=== PATIENT | female | born 1980 | race Caucasian/White ===

== ENCOUNTER → 2022-07-28 01:48 | Outpatient (CLI) | payer SELFPAY ==
[2022-07-28 10:54] LABS: SARS-CoV-2 RNA PCR Positive
== END ==
DX: U07.1 COVID-19 (principal)
CPT/HCPCS: C9803; U0003; U0005

== ENCOUNTER 2023-06-11 07:27 | Outpatient (CLI) | payer OTHER, SELFPAY ==
[2023-06-11 08:31] LABS: Basophils Absolute Auto 0.1 K/mm3 (0.0-0.1); Basophils Percent Auto 0.7 % (0.2-1.2); Eosinophils Absolute Auto 0.6 K/mm3 (0-0.3); Eosinophils Percent Auto 5.8 % (0-4.4); Hematocrit 40.5 % (37.0-47.0); Hemoglobin 13.7 g/dL (12.0-15.0); Immature Granulocyte Absolute 0.05 K/mm3 (0.00-0.031); Immature Granulocyte Percent A 0.4 % (0-0.5); Lymphocytes Absolute Auto 2.87 K/mm3 (0.9-3.2); Lymphocytes Percent Auto 25.8 % (18.3-44.2); Mean Corpuscular HGB Conc 33.8 g/dl (32-36); Mean Corpuscular Hemoglobin 32.5 pg (26-34); Mean Platelet Volume 12.1 fl (7.4-10.4); Monocytes Percent Auto 8.6 % (2.6-8.5); Neutrophils Absolute Auto 6.5 K/mm3 (1.3-6.7); Neutrophils Percent Auto 58.7 % (45.5-73.1); Platelet Count Result 270 k/mm3 (150-375); Red Blood Count 4.22 M/mm3 (4.2-5.4); Red Cell Distribution Width 12.5 % (11.5-14.5); White Blood Count 11.1 K/mm3 (4.5-10.0)
[2023-06-11 08:52] LABS: Alanine Aminotransferase 40 U/L (6-35); Albumin Level 4.5 g/dL (3.5-5.1); Alkaline Phosphatase 75 U/L (38-126); Anion Gap 5 mmol/L (8-16); Aspartate Amino Transferase 33 U/L (14-36); Bilirubin,Total 0.3 mg/dL (0.2-1.3); Blood Urea Nitrogen 15 mg/dL (7-17); Calcium 8.7 mg/dL (8.4-10.2); Carbon Dioxide 24 mmol/L (22-30); Chloride 104 mmol/L (98-107); Cholesterol 204 mg/dL (0-200); Estimated Glomerular Filt Rate > 60; Glucose 94 mg/dL (65-110); HDL Direct 38 mg/dL; Potassium 4.3 mmol/L (3.4-5.0); Sodium 133 mmol/L (137-145)
[2023-06-11 08:53] LABS: LDL Cholesterol Direct 62 mg/dL
[2023-06-11 08:55] LABS: Hemoglobin A1C 5.2 % (<5.7)
[2023-06-11 09:06] LABS: Vitamin D 25 Hydroxy 16.3 ng/mL
[2023-06-11 09:19] LABS: Appearance Urine Turbid (Clear); Bacteria Urine 2+ /hpf; Bilirubin Urine Negative (Negative); Blood Urine Negative (Negative); Color Urine Yellow (Yellow); Glucose Urine UA Negative (Negative); Ketones Urine Trace mg/dL (Negative); Leukocyte Esterase Ur 2+ LEU/UL (Negative); Nitrate Urine Negative (Negative); Non Pathogenic Casts 0-2; Protein Urine Negative (Negative); RBC Urine 0-2 /hpf (0-2); Specific Grav Ur 1.017 (1.001-1.035); Squamous Epithelial Cell Urine Moderate /hpf (Few); Uric Acid Crystals Urine Present /hpf; Urobilinogen Urine 0.2 mg/dL (<2.0); WBC Urine 21-50 /hpf; pH Urine 5.5 (5.0-9.0)
[2023-06-11 09:20] LABS: Add Urine Microscopic? YES
[2023-06-11 09:37] LABS: Hepatitis C Virus Antibody Negative (Negative)
[2023-06-11 13:01] LABS: Triglycerides 1327 mg/dL (<150)
== END 2023-06-11 07:28 | disposition home or self-care (01) ==
DX: Z00.00 Encounter for general adult medical examination without abnormal findings (principal)
CPT/HCPCS: 36415; 80053; 80061; 81001; 82306; 83036; 84443; 85025; 86803; 87086; 87088

== ENCOUNTER 2023-07-16 13:55 | Outpatient (CLI) | payer OTHER, SELFPAY ==
[2023-07-16 15:48] LABS: Hemoglobin A1C 5.2 % (<5.7)
== END 2023-07-16 13:56 | disposition home or self-care (01) ==
DX: R35.0 Frequency of micturition (principal); R81 Glycosuria
CPT/HCPCS: 36415; 83036

== ENCOUNTER 2023-12-04 14:48 | Emergency (ER) | payer OTHER, SELFPAY ==
[2023-12-04 15:00] VITALS: BP 128/83; PULSE 83; RESP 18; TEMP 36.6; O2SAT 98
--- NOTE | 2023-12-04 16:19 | ED.GENADULT ---
HPI - General Adult General Chief complaint: Upper Respiratory Infection Stated complaint: Congestion/Cough Source: patient Mode of arrival: ambulatory Limitations: no limitations History of Present Illness HPI narrative: Patient presents for evaluation of respiratory symptoms for last 4-5 days. Symptoms include sinus congestion, postnasal drainage, cough, wheezing and mild shortness of breath. No fever, chills, nausea, vomiting. No sick contacts to her knowledge. She has a history of recurrent bronchitis. Steroids have helped her in the past. Related Data Home Medications Medication Instructions Recorded Confirmed lorazepam 0.5 mg tablet 0.5 mg PO BID PRN Anxiety 12/04/23 12/04/23 Allergies Allergy/AdvReac Type Severity Reaction Status Date / Time doxycycline Allergy Intermediate Rash Verified 12/04/23 15:12 sulfamethoxazole Allergy Intermediate Rash Verified 12/04/23 15:12 [From Bactrim] trimethoprim [From Bactrim] Allergy Intermediate Rash Verified 12/04/23 15:12 Review of Systems Review of Systems: CONSTITUTIONAL: Denies fever, chills, or sweats. EYES: Denies visual changes, redness, or discharge. ENT: Reports sinus congestion and drainage. Denies sore throat. CARDIOVASCULAR: Denies chest pain, palpitations, or edema. RESPIRATORY: Reports cough, wheezing, mild shortness of breath GASTROINTESTINAL: Denies abdominal pain, nausea, vomiting, or diarrhea. GENITOURINARY: Denies dysuria or hematuria. SKIN: Denies rash or itching. MUSCULOSKELETAL: Denies back pain, joint pain, or myalgia. NEUROLOGIC: Denies headache, numbness, dizziness, or weakness. PSYCHIATRIC: Denies anxiety or depression. [facility] Past Medical History Medical History Bronchitis Surgical History Surgical History No pertinent past surgical history Family History Family History (Updated 12/04/23 @ 16:21 by ISHAAN Beavers, [place]) Mother Family history non-contributory Social History Social History Substance use: never Gender identity (if verbalized by the patient): Female Spiritual care concerns: No Exam Narrative: GENERAL: Well-appearing, well-nourished, and in no acute distress. HEAD: Normocephalic, atraumatic. EYES: PERRLA and EOMI. ENT: Nares clear, no rhinorrhea or epistaxis. Mucous membranes moist. Oropharynx without tonsillar hypertrophy exudate or other lesions. Bilateral TMs pearly booker nonbulging NECK: Supple. No adenopathy or masses. No carotid bruits or JVD CHEST: Clear to auscultation. No respiratory distress. No wheezes rales or rhonchi HEART: Regular rate and rhythm. No murmur heard. Normal peripheral pulses. ABDOMEN: Soft, nontender, nondistended, normal active bowel sounds. EXTREMITIES: Normal range of motion. No edema. SKIN: Warm, dry, no rash. NEURO: No focal deficits. Alert and oriented x3. PSYCH: Normal mood and affect. Course Course Emergency Course: This is a 43-year-old female who presented for evaluation of respiratory symptoms. She had no adventitious lung sounds warranting imaging. She is nontoxic appearing and saturations were 98% on room air. COVID and influenza were both negative. Follow up with PCP. Will dc with prednisone. Go to the ER for worsening symptoms. Pt in agreement with plan of care. Level of Care: Express Care Visit Vital Signs Vital signs: Vital Signs Temperature 36.6 C 12/04/23 15:00 Pulse Rate 83 12/04/23 15:00 Respiratory Rate 18 12/04/23 15:00 Blood Pressure 128/83 12/04/23 15:00 Pulse Oximetry 98 12/04/23 15:00 Oxygen Delivery Room Air 12/04/23 15:00 Temperature 36.6 C 12/04/23 15:00 Pulse Rate 83 12/04/23 15:00 Respiratory Rate 18 12/04/23 15:00 Blood Pressure 128/83 12/04/23 15:00 Pulse Oximetry 98 12/04/23 15:00 Oxyge
== END 2023-12-04 16:15 | disposition home or self-care (01) ==
PROVIDERS: Emergency Provider Nurse Practitioner
DX: J06.9 Acute upper respiratory infection, unspecified (principal); Z20.822 Contact with and (suspected) exposure to COVID-19
CPT/HCPCS: 87426; 87804; 99213; C9803; G0463

== ENCOUNTER 2024-01-28 12:13 | Outpatient (CLI) | payer OTHER, SELFPAY ==
[2024-01-28 12:55] LABS: Appearance Urine Clear (Clear); Bacteria Urine None Seen /hpf; Bilirubin Urine Negative (Negative); Blood Urine Negative (Negative); Color Urine Yellow (Yellow); Glucose Urine UA Negative (Negative); Ketones Urine Negative (Negative); Leukocyte Esterase Ur Trace LEU/UL (Negative); Nitrate Urine Negative (Negative); Non Pathogenic Casts 0-2; Protein Urine Negative (Negative); RBC Urine 0-2 /hpf (0-2); Specific Grav Ur 1.015 (1.001-1.035); Squamous Epithelial Cell Urine Occasional /hpf (Few); Urobilinogen Urine 0.2 mg/dL (<2.0); WBC Urine 0-5 /hpf; pH Urine 5.5 (5.0-9.0)
[2024-01-28 12:57] LABS: Add Urine Microscopic? YES
== END 2024-01-28 12:14 | disposition home or self-care (01) ==
DX: R30.0 Dysuria (principal)
CPT/HCPCS: 81001

== ENCOUNTER 2024-02-03 09:19 | Outpatient (CLI) | payer OTHER, SELFPAY ==
--- NOTE | ~2024-02-03 | US_ITS ---
Limited Abdominal Sonogram: Real-time sonographic imaging of the right upper quadrant was performed. Clinical History: Right upper quadrant pain Findings: The liver appears normal with no evidence of mass lesion or bile duct dilatation. Main por manny vein demonstrates normal direction of flow. The gallbladder is well distended, and appears normal with no evidence of gallstone or wall thickening. The common bile duct measures 3 mm. The visualize d pancreas, aorta, and IVC are unremarkable. Impression: No significant abnormality seen. Reviewed, dictated and finalized at location . 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
--- NOTE | ~2024-02-03 | NM_ITS ---
EXAMINATION: NM hepatobiliary wo pharm DATE: 02/03/2024 12:26 INDICATION: Right upper quadrant pain and bloating COMPARISON: None. TECHNIQUE: 1.8 mCi Tc-99m mebrofenin (Choletec) was administered intravenously. Scintigraphic images of the abdomen were obtained for one hour. At the 1 hour time point, the patient drank 8 oz Ensure, and imaging was continued for 60 minutes. Gallbladder ejection fraction was calculated by the technol ogist. FINDINGS: There is normal clearance of radiotracer from the blood pool. There is homogeneous tracer u ptake by the liver. Activity progresses to the bowel and gallbladder. The gallbladder ejection fract ion (GBEF) is 77%. Note that with this technique, normal GBEF >= 33%. IMPRESSION: 1. Normal hepatobiliary scan Reviewed, dictated and finalized at location A. 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
== END 2024-02-03 09:20 | disposition home or self-care (01) ==
LOC: ANHIMG 09:19
PROVIDERS: Visit Provider Nurse Practitioner
DX: R10.11 Right upper quadrant pain (principal); R14.0 Abdominal distension (gaseous); R11.0 Nausea
CPT/HCPCS: 76705; 78226; A9537

== ENCOUNTER 2024-03-15 00:03 | Day surgery (SDC) | payer OTHER, SELFPAY ==
[2024-02-21 15:52] VITALS: BMI 25.4
--- NOTE | 2024-02-25 10:06 | SUR.PREOP ---
Patient called regarding upcoming procedure. Reviewed preop instructions, appointment times, and procedure prep.
[2024-03-07 15:59] VITALS: BMI 25.4
[2024-03-15 08:28] VITALS: BP 134/97; PULSE 81; RESP 20; TEMP 36.2; O2SAT 100; BMI 24.5
[2024-03-15] MEDS: LACTATED RINGERS 1,000 ML 150 ML IV CONT (08:31)
--- NOTE | 2024-03-15 09:10 | WPDANESEPPF ---
Anes - Initial Pre Proc Eval Procedure: Operation Date: 03/15/24 09:30 Proposed Procedures p Esophagogastroduodenoscopy & Colonoscopy - Jayesh Montaño MD Date/Time: 03/15/24 09:10 Surgeon: Jayesh Montaño MD Pre Op Diagnosis: right upper quadrant pain, nausea, dysphagia Patient Data Age: 43 Gender: F Height: 1.6 m Weight: 62.8 kg Last Vital Signs Temp 97.2 F L 03/15/24 08:28 Pulse 81 03/15/24 08:28 Resp 20 03/15/24 08:28 BP 134/97 H 03/15/24 08:28 Pulse Ox 100 03/15/24 08:28 O2 Del Method Room Air 03/15/24 08:28 Allergies Allergy/AdvReac Type Severity Reaction Status Date / Time doxycycline Allergy Intermediate Rash Verified 03/15/24 08:27 sulfamethoxazole Allergy Intermediate Rash Verified 03/15/24 08:27 [From Bactrim] trimethoprim [From Bactrim] Allergy Intermediate Rash Verified 03/15/24 08:27 Home Medications Medication Instructions Recorded Confirmed Type lorazepam 0.5 mg tablet 0.5 mg PO BID PRN Anxiety 12/04/23 03/07/24 History albuterol 90 mcg/actuation aerosol 90 mcg inhalation QID PRN SOB 01/04/24 03/07/24 History inhaler fenofibrate 160 mg tablet 160 mg PO DAILY 01/04/24 03/07/24 History omeprazole 40 mg capsule,delayed 40 mg PO DAILY #30 caps 01/04/24 03/07/24 Rx release dicyclomine 10 mg capsule 10 mg PO QID 90 days #360 caps 01/27/24 03/07/24 Rx Patient hx anesthesia problems: none Family hx anesthesia problems: none Results Review: All pre-operative results and documents have been reviewed as part of the pre-operative evaluation. [facility] Past Medical History Medical History (Updated 01/04/24 @ 15:59 by Radha Novoa APRN) Bronchitis Diarrhea Dysphagia Nausea Postprandial abdominal bloating Postprandial RUQ pain Scoliosis Surgical History Surgical History No pertinent past surgical history Family History Family History Mother Family history non-contributory Social History Social History (Updated 12/04/23 @ 16:21 by Rajeev Huang, [facility], ) Years smoked: 30 Smoking status: Current every day smoker Tobacco type: cigarettes Additional smoking assessment comments: Social Smoker Alcohol intake: current Alcohol use details: Daily Substance use: never Gender identity (if verbalized by the patient): Female Spiritual care concerns: No Anes - Eval Final PreProcedure Day of Procedure 03/15/24 09:10 Patient weight: normal Heart: regular rate and rhythm Lungs: clear to auscultation Airway: Mallampati scale class II Neurological: alert and oriented Last oral intake: >/= 8 hours ASA classification: II Emergent: no Anesthetic plan: proceed Anesthesia type and monitoring: general GIVS and standard monitoring Results Review: All pre-operative results and documents have been reviewed as part of the pre-operative evaluation. Informed Consent: The patient's anesthetic plan and its attendant risks and benefits were discussed with the patient/family/POA. Questions were solicited and answers provided to the satisfaction of the patient/family/POA.
--- NOTE | 2024-03-15 09:17 | PM.HPGS ---
History of Present Illness History of Present Illness Consent: Risks, benefits, and alternatives have been discussed and questions answered. Patient agrees to proceed with procedure. Chief complaint: right upper quadrant pain, nausea, dysphagia Narrative: Irma Seymour is a 43 year old female with bloating and loose stools, never had scopes. Douglas was helping with GI symptoms but then got constipated so discontinued, now she is back with loose stools again Review of Systems Review of Systems: All systems reviewed & are unremarkable except as noted in HPI and below PMFSH Past Medical History Medical History (Updated 01/04/24 @ 15:59 by Radha Novoa, [facility]) Bronchitis Diarrhea Dysphagia Nausea Postprandial abdominal bloating Postprandial RUQ pain Scoliosis Surgical History Surgical History No pertinent past surgical history Family History Family History Mother Family history non-contributory Social History Social History (Updated 12/04/23 @ 16:21 by Rajeev Huang, [facility], ) Years smoked: 30 Smoking status: Current every day smoker Tobacco type: cigarettes Additional smoking assessment comments: Social Smoker Alcohol intake: current Alcohol use details: Daily Substance use: never Gender identity (if verbalized by the patient): Female Spiritual care concerns: No Meds Home Medications and Allergies Home Medications Medication Instructions Recorded Confirmed Type lorazepam 0.5 mg tablet 0.5 mg PO BID PRN Anxiety 12/04/23 03/07/24 History albuterol 90 mcg/actuation aerosol 90 mcg inhalation QID PRN SOB 01/04/24 03/07/24 History inhaler fenofibrate 160 mg tablet 160 mg PO DAILY 01/04/24 03/07/24 History omeprazole 40 mg capsule,delayed 40 mg PO DAILY #30 caps 01/04/24 03/07/24 Rx release dicyclomine 10 mg capsule 10 mg PO QID 90 days #360 caps 01/27/24 03/07/24 Rx Allergies Allergy/AdvReac Type Severity Reaction Status Date / Time doxycycline Allergy Intermediate Rash Verified 03/15/24 08:27 sulfamethoxazole Allergy Intermediate Rash Verified 03/15/24 08:27 [From Bactrim] trimethoprim [From Bactrim] Allergy Intermediate Rash Verified 03/15/24 08:27 Vital Signs Vital Signs - 24 hr 04/17/24 08:28 Temperature 97.2 F L Pulse Rate 81 Respiratory Rate 20 Blood Pressure 134/97 H Pulse Oximetry 100 Oxygen Delivery Room Air Exam Const: General: comfortable and no acute distress HENMT: Face/Nose/Sinus: Normal nares present Eyes: General: appearance normal, both eyes and all related structures Neck: Neck: no JVD Resp: Auscultation: clear to auscultation bilaterally Cardio: Rate: regular rate Rhythm: regular rhythm GI: Inspection: non-distended GI Palp: Yes Soft to palpation Skin: General skin exam: normal color Neuro: General: gait normal Speech: normal speech Extrem: General: normal to inspection Psych: Mental Status: mental status grossly normal Assessment and Plan Assessment and plan (1) Postprandial abdominal bloating: Code(s): R14.0 - Abdominal distension (gaseous) Status: Acute Assessment and Plan: egd with bx abdominal us and hida scan normal (2) Diarrhea: Code(s): R19.7 - Diarrhea, unspecified Status: Acute Assessment and Plan: colonoscopy with biopsies
--- NOTE | 2024-03-15 09:35 | SUR.OPER ---
EGD ended at 926, colon began at 932
[2024-03-15 09:48] VITALS: BP 99/64; PULSE 75; RESP 16; O2SAT 99
[2024-03-15 09:58] VITALS: BP 99/64; PULSE 75; RESP 16; O2SAT 99
[2024-03-15 10:08] VITALS: BP 113/86; PULSE 77; RESP 21; O2SAT 100
== END 2024-03-15 10:25 | disposition home or self-care (01) ==
PROVIDERS: Visit Provider Internal Medicine Gastroenterology
PROC: 0DJ08ZZ Inspection of Upper Intestinal Tract, Via Natural or Artificial Opening Endoscopic (ICD-10-PCS; CPT 43235; principal; 2024-03-15 09:30)
DX: K21.00 Gastro-esophageal reflux disease with esophagitis, without bleeding (principal); R19.7 Diarrhea, unspecified; F17.210 Nicotine dependence, cigarettes, uncomplicated; Z79.51 Long term (current) use of inhaled steroids
CPT/HCPCS: 45380; 43239; 88305; J2704; J7120

== ENCOUNTER 2024-03-31 06:59 | Outpatient (CLI) | payer OTHER, SELFPAY ==
[2024-03-31 07:37] LABS: Hematocrit 39.6 % (37.0-47.0); Hemoglobin 13.1 g/dL (12.0-15.0); Mean Corpuscular HGB Conc 33.1 g/dl (32-36); Mean Corpuscular Hemoglobin 31.8 pg (26-34); Mean Corpuscular Volume 96.1 fl (80-100); Mean Platelet Volume 12.4 fl (7.4-10.4); Platelet Count Result 243 k/mm3 (150-375); Red Blood Count 4.12 M/mm3 (4.2-5.4); White Blood Count 10.8 K/mm3 (4.5-10.0)
[2024-03-31 07:53] LABS: Alanine Aminotransferase 28 U/L (6-35); Albumin Level 4.3 g/dL (3.5-5.1); Alkaline Phosphatase 84 U/L (38-126); Amylase 57 U/L (30-110); Anion Gap 11 mmol/L (4-12); Aspartate Amino Transferase 29 U/L (14-36); Bilirubin,Total 0.4 mg/dL (0.2-1.3); Blood Urea Nitrogen 10 mg/dL (7-17); CRP < 0.5 mg/dL (<1.0); Calcium 8.7 mg/dL (8.4-10.2); Carbon Dioxide 17 mmol/L (22-30); Chloride 113 mmol/L (98-107); Estimated Glomerular Filt Rate > 60; Glucose 151 mg/dL (65-110); Lipase 78 U/L (23-300); Potassium 3.5 mmol/L (3.4-5.0); Sodium 141 mmol/L (137-145)
[2024-03-31 08:20] LABS: Erythrocyte Sedimentation Rate 21 mm/hr (0-20)
== END 2024-03-31 07:00 | disposition home or self-care (01) ==
PROVIDERS: Visit Provider Nurse Practitioner
DX: R14.0 Abdominal distension (gaseous) (principal); K58.0 Irritable bowel syndrome with diarrhea; K21.00 Gastro-esophageal reflux disease with esophagitis, without bleeding; K31.A0 Gastric intestinal metaplasia, unspecified
CPT/HCPCS: 36415; 80053; 82150; 83690; 84443; 85027; 85652; 86140

== ENCOUNTER 2024-04-05 08:34 | Outpatient (CLI) | payer OTHER, SELFPAY ==
--- NOTE | 2024-04-17 13:39 | WPDHOMESLEEP ---
Sleep Study - Home Unattended Date of Study: 04/06/24 Ordering Provider: Shravan Burgos Interpreting Provider: Lina Elder, DO Home Sleep Study Type: Watch PAT Height: 1.6 m Weight: 65.771 kg Body Mass Index: 25.7 Neck Circumference (inches): 14 [place]: 15 Reason for Sleep Study Difficulty sleeping Sleep History The patient is a 43 year old female with anxiety, asthma, dyslipidemia and current tobacco use that had a sleep study ordered by her primary care for evaluation of sleep apnea. The patient rarely awakens from sleep short of breath. She rarely awakens at night with heartburn, belching or cough. She occasionally snores but it is never loud enough that others complain. She frequently has trouble sleeping when she has a cold. She rarely wakes up gasping for air throughout the night. She denies having breathing problems at night observed by herself or others. She occasionally sweats excessively at night. She denies having heart palpitations or irregular heartbeats during the night. She frequently falls asleep during the day but never while driving. She denies sleep paralysis, cataplexy and hypnagogic / hypnopompic hallucinations. She denies having trouble at school or work due to sleepiness. She denies feeling afraid of going to sleep. She rarely has nightmares. She rarely remembers her dreams. She occasionally has thoughts racing through her mind. She occasionally feels sad or depressed. She frequently has anxiety. She denies having muscular tension. She denies noticing parts of her body jerk. She denies kicking during the night. She denies having crawling and aching feelings in her legs but rarely has leg pain during the night. She denies grinding her teeth during sleep and denies awakening with morning jaw pain. She is occasionally bothered by pain during the day but rarely awakened by pain during the night. She occasionally wakes up feeling stiff in the morning. She occasionally wakes up with sore or achy muscles. She occasionally wakes up with pain in the neck, spine and other joints. She goes to bed between 10-11 p.m. on both weekdays and weekends. The amount of time it takes for her to fall asleep is variable. She wakes up 3 times throughout the night to either use the restroom or adjust position in bed. She wakes up at 5:30 a.m. on weekdays and between 8-9 a.m. on the weekends. She typically gets 5 hours of sleep per night. She will stay in bed for 1 hour after waking up in the morning. She currently lives with her 16-year-old son. She denies consuming any caffeinated beverages within 2 hours of bedtime. She denies engaging in physical exercise before bedtime. She will watch television before falling asleep. She will take naps in the afternoon or the evening but they are not refreshing. She consumes 80 oz of caffeinated soda per day. She consumes alcoholic beverages occasionally. She currently smokes cigarettes intermittently. She denies recreational drug use. [facility] Past Medical History Medical History Bronchitis Diarrhea Dysphagia Nausea Postprandial abdominal bloating Postprandial RUQ pain Scoliosis Surgical History Surgical History No pertinent past surgical history Family History Family History Mother Family history non-contributory Social History Social History Years smoked: 30 Smoking status: Never smoker Tobacco type: cigarettes Additional smoking assessment comments: Social Smoker Alcohol intake: current Alcohol use details: Daily Substance use: never Gender identity (if verbalized by the patient): Female Spiritual care concerns: No Medications Home Medications Medication Instructions Recorded Confirmed Type aye
[2024-04-17 13:40] VITALS: BMI 25.7
== END 2024-04-06 07:30 | disposition home or self-care (01) ==
LOC: ANHCSM 08:35
DX: G47.9 Sleep disorder, unspecified (principal); R29.818 Other symptoms and signs involving the nervous system; R40.0 Somnolence
CPT/HCPCS: 95800

== ENCOUNTER 2024-04-06 08:54 | Outpatient (CLI) | payer OTHER, SELFPAY ==
--- NOTE | ~2024-04-06 | CT_ITS ---
CT of the Abdomen and Pelvis: Indication: Abdominal bloating Technique: 2.5 mm axial scans were obtained through the abdomen and pelvis following intravenous adm inistration of 100 cc of Omnipaque 350. Dose reduction technique was used on this scan by utilizing a utomated exposure control and iterative reconstruction technique. The dose-length product (DLP) was 3 87.41 mGy-cm. Findings: Scans through the lung bases are unremarkable. The liver, spleen, pancreas, gallbladder, adrenals and left kidney are within normal limits. There is malrotation of the right kidney, no hydronephrosis. No evidence of aortic aneurysm. No lymphadenopa thy. No bowel obstruction or bowel wall thickening. There is no evidence to suggest acute appendicitis. Images through the pelvis were performed. Urinary bladder unremarkable. No adnexal mass seen. No asci dameon. IUD in place. Impression: No acute abnormality seen. IUD in place. Reviewed, dictated and finalized at [facility]. Impression: No acute abnormality seen. IUD in place.
[2024-04-15 14:29] LABS: Pancreatic Elastase, Stool >500 mcg/g
[2024-04-15 20:44] LABS: Calprotectin, Stool 23 mcg/g
== END 2024-04-06 08:55 | disposition home or self-care (01) ==
LOC: ANHIMG 08:55
PROVIDERS: Visit Provider Nurse Practitioner
DX: K92.89 Other specified diseases of the digestive system (principal); K21.00 Gastro-esophageal reflux disease with esophagitis, without bleeding; K31.A0 Gastric intestinal metaplasia, unspecified; K58.0 Irritable bowel syndrome with diarrhea; Z97.5 Presence of (intrauterine) contraceptive device
CPT/HCPCS: 74177; 82653; 83993; Q9967

== ENCOUNTER 2024-04-30 14:57 | Emergency (ER) | payer OTHER, SELFPAY ==
--- NOTE | 2024-04-30 15:07 | ED.URI ---
HPI - URI/Sore Throat General Chief Complaint: Upper Respiratory Infection Stated Complaint: Cough/fever Time Seen by Provider: 04/30/24 15:07 Source: patient and RN notes reviewed Mode of arrival: ambulatory Limitations: no limitations History of Present Illness HPI Narrative: 43-year-old female presented for complaint of headache, body aches, sinus pressure/congestion, cough, fever/chills. onset yesterday morning. Also reports bilateral ear pain for 1 week. Taking ibuprofen for fever of 100.4. Denies sob, wheezing, n/v/d. MD elicited complaint: cough Related Data Home Medications Medication Instructions Recorded Confirmed lorazepam 0.5 mg tablet 0.5 mg PO BID PRN Anxiety 12/04/23 03/30/24 albuterol 90 mcg/actuation aerosol 90 mcg inhalation QID PRN SOB 01/04/24 03/30/24 inhaler fenofibrate 160 mg tablet 160 mg PO DAILY 01/04/24 03/30/24 Allergies Allergy/AdvReac Type Severity Reaction Status Date / Time doxycycline Allergy Intermediate Rash Verified 03/29/24 15:50 sulfamethoxazole Allergy Intermediate Rash Verified 03/29/24 15:50 [From Bactrim] trimethoprim [From Bactrim] Allergy Intermediate Rash Verified 03/29/24 15:50 Review of Systems Review of Systems: CONSTITUTIONAL: Endorses malaise, chills, sweats, fever EYES: Denies visual changes, redness, or discharge ENT: Reports rhinorrhea, congestion, sinus pain, otalgia CARDIOVASCULAR: Denies chest pain, palpitations, edema RESPIRATORY: Reports cough, post nasal drainage. Denies dyspnea GASTROINTESTINAL: Denies abdominal pain, nausea, vomiting, diarrhea SKIN: Denies rash or itching MUSCULOSKELETAL: Endorses myalgia PMFSH Past Medical History Medical History Bronchitis Diarrhea Dysphagia Nausea Postprandial abdominal bloating Postprandial RUQ pain Scoliosis Surgical History Surgical History No pertinent past surgical history Family History Family History Mother Family history non-contributory Social History Social History Years smoked: 30 Smoking status: Never smoker Tobacco type: cigarettes Additional smoking assessment comments: Social Smoker Alcohol intake: current Alcohol use details: Daily Substance use: never Gender identity (if verbalized by the patient): Female Spiritual care concerns: No Exam Narrative: GENERAL: Ill-appearing, nontoxic no acute distress. EYES: PERRLA, conjunctivae clear ENT: Mucous membranes moist. Bilateral TMs erythematous, bulging and intact; canals not erythematous, no drainage, no tragal tenderness. Oropharynx erythematous without lesions or exudate, no drooling, no hoarseness, no trismus, uvula midline. No tripod positioning, muffled voice, soft palate or pharyngeal wall bulging NECK: Supple. No lymphadenopathy CHEST: Clear to auscultation, breath sounds equal. No wheezing, rhonchi, rales, or stridor. No respiratory distress, speaks in full sentences. HEART: Regular rate and rhythm. No murmur heard. SKIN: Warm, dry NEURO: Alert and oriented x3. PSYCH: Normal mood and affect Course Course Emergency Course: Patient is aware of diagnosis, understands and agrees to treatment plan. Anticipatory guidance given. Patient agrees to follow-up as directed and is aware of reasons to seek care at the emergency department. Portions of this record may have been created with voice recognition software Level of Care: Express Care Visit Vital Signs Vital signs: Vital Signs Temperature 98 F 04/30/24 15:08 Pulse Rate 72 04/30/24 15:08 Respiratory Rate 16 04/30/24 15:08 Blood Pressure 135/81 04/30/24 15:08 Pulse Oximetry 100 04/30/24 15:08 Oxygen Delivery Room Air 04/30/24 15:08 Temperature 98 F 04/30/24 15:08 Pulse Rate 72 06/0
[2024-04-30 15:08] VITALS: BP 135/81; PULSE 72; RESP 16; TEMP 36.6; O2SAT 100
== END 2024-04-30 15:43 | disposition home or self-care (01) ==
PROVIDERS: Emergency Provider Nurse Practitioner Family
DX: H66.93 Otitis media, unspecified, bilateral (principal); U07.1 COVID-19
CPT/HCPCS: 87426; 87804; 99213; G0463

== ENCOUNTER 2024-07-22 09:14 | Outpatient (CLI) | payer OTHER, SELFPAY ==
[2024-07-22 10:46] LABS: Basophils Absolute Auto 0.1 K/mm3 (0.0-0.1); Basophils Percent Auto 0.8 % (0.2-1.2); Eosinophils Absolute Auto 0.3 K/mm3 (0-0.3); Eosinophils Percent Auto 3.2 % (0-4.4); Hematocrit 44.8 % (37.0-47.0); Hemoglobin 14.6 g/dL (12.0-15.0); Immature Granulocyte Absolute 0.17 K/mm3 (0.00-0.031); Immature Granulocyte Percent A 1.6 % (0-0.5); Lymphocytes Absolute Auto 2.26 K/mm3 (0.9-3.2); Lymphocytes Percent Auto 21.5 % (18.3-44.2); Mean Corpuscular HGB Conc 32.6 g/dl (32-36); Mean Corpuscular Hemoglobin 31.8 pg (26-34); Mean Corpuscular Volume 97.6 fl (80-100); Mean Platelet Volume 12.9 fl (7.4-10.4); Monocytes Absolute Auto 0.9 K/mm3 (0.1-0.6); Monocytes Percent Auto 8.3 % (2.6-8.5); Neutrophils Absolute Auto 6.8 K/mm3 (1.3-6.7); Neutrophils Percent Auto 64.6 % (45.5-73.1); Platelet Count Result 280 k/mm3 (150-375); Red Blood Count 4.59 M/mm3 (4.2-5.4); Red Cell Distribution Width 13.2 % (11.5-14.5); White Blood Count 10.5 K/mm3 (4.5-10.0)
[2024-07-22 10:53] LABS: Anion Gap 11 mmol/L (4-12); Blood Urea Nitrogen 10 mg/dL (7-17); Calcium 9.3 mg/dL (8.4-10.2); Carbon Dioxide 23 mmol/L (22-30); Chloride 102 mmol/L (98-107); Estimated Glomerular Filt Rate > 60; Glucose 79 mg/dL (65-110); Potassium 4.1 mmol/L (3.4-5.0); Sodium 136 mmol/L (137-145)
[2024-07-22 10:54] LABS: Alanine Aminotransferase 35 U/L (6-35); Albumin Level 4.6 g/dL (3.5-5.1); Alkaline Phosphatase 73 U/L (38-126); Aspartate Amino Transferase 33 U/L (14-36); Bilirubin,Total 0.4 mg/dL (0.2-1.3)
[2024-07-22 10:56] LABS: Hemoglobin A1C 5.3 % (<5.7)
[2024-07-24 18:23] LABS: FSH 21.9 mIU/mL; LH 3.9 mIU/mL; Progesterone <0.5 ng/mL; Prolactin 3.3 ng/mL
[2024-07-27 18:33] LABS: Testosterone Free 1.1 pg/mL (0.1-6.4); Testosterone Total 13 ng/dL (2-45)
[2024-07-31 22:18] LABS: Estradiol, Ultrasensitive 11 pg/mL
== END 2024-07-22 09:15 | disposition home or self-care (01) ==
PROVIDERS: PCP Physician Assistant; Referring Provider Physician Assistant; Visit Provider Nurse Practitioner Family
DX: N95.9 Unspecified menopausal and perimenopausal disorder (principal)
CPT/HCPCS: 36415; 80053; 82670; 83001; 83002; 83036; 84144; 84146; 84402; 84403; 84443; 85025

== ENCOUNTER 2024-09-14 09:36 | Outpatient (CLI) | payer OTHER, SELFPAY ==
--- NOTE | ~2024-09-14 | NM_ITS ---
EXAMINATION: NM hepatobiliary w pharm DATE: 09/14/2024 12:39 INDICATION: Right upper quadrant abdominal pain. Dyspepsia. GERD. COMPARISON: None. TECHNIQUE: 4.5 mCi Tc-99m mebrofenin (Choletec) was administered intravenously. Scintigraphic images of the abdomen were obtained for one hour. 1.3 mcg sincalide (Kinevac) was administered by slow intr avenous infusion, and imaging was continued for 30 minutes. Gallbladder ejection fraction was calcula abel by the technologist. FINDINGS: There is normal clearance of radiotracer from the blood pool. There is homogeneous tracer uptake by t he liver. Activity progresses to the gallbladder and bowel. The gallbladder ejection fraction (GBEF) is 95% (normal 10-90%, but most patient with gallbladder dysfunction have GBEF < 35% which does over lap with the normal range). IMPRESSION: 1. Biliary hyperkinesis with gallbladder ejection fraction of 95%. Reviewed, dictated and finalized at location A.
== END 2024-09-14 09:37 | disposition home or self-care (01) ==
PROVIDERS: PCP Physician Assistant
DX: K21.9 Gastro-esophageal reflux disease without esophagitis (principal)
CPT/HCPCS: 78227; A9537; J2805

== ENCOUNTER 2024-09-14 09:43 | Outpatient (CLI) | payer OTHER, SELFPAY ==
[2024-09-14 10:23] LABS: Alanine Aminotransferase 36 U/L (6-35); Albumin Level 4.6 g/dL (3.5-5.1); Alkaline Phosphatase 66 U/L (38-126); Anion Gap 9 mmol/L (4-12); Aspartate Amino Transferase 35 U/L (14-36); Bilirubin,Total 0.7 mg/dL (0.2-1.3); Blood Urea Nitrogen 10 mg/dL (7-17); Calcium 8.9 mg/dL (8.4-10.2); Carbon Dioxide 23 mmol/L (22-30); Chloride 104 mmol/L (98-107); Cholesterol 140 mg/dL (0-200); Estimated Glomerular Filt Rate > 60; Glucose 90 mg/dL (65-110); HDL Direct 42 mg/dL; Potassium 4.4 mmol/L (3.4-5.0); Sodium 136 mmol/L (137-145); Triglycerides 348 mg/dL (<150)
[2024-09-14 10:35] LABS: LDL Cholesterol Direct 56 mg/dL
== END 2024-09-14 09:44 | disposition home or self-care (01) ==
LOC: ANHLAB 09:44
PROVIDERS: PCP Physician Assistant; Visit Provider Physician Assistant
DX: E78.1 Pure hyperglyceridemia (principal)
CPT/HCPCS: 36415; 80053; 80061

== ENCOUNTER 2024-11-23 08:27 | Emergency (ER) | payer OTHER, SELFPAY ==
[2024-11-23 08:39] VITALS: BP 118/80; PULSE 91; RESP 18; TEMP 36.4; O2SAT 99
--- NOTE | 2024-11-23 08:49 | ED.URI ---
HPI - URI/Sore Throat General Chief Complaint: Upper Respiratory Infection Stated Complaint: cough and nasal congestion Time Seen by Provider: 11/23/24 08:40 Source: patient, RN notes reviewed and old records reviewed Mode of arrival: ambulatory Limitations: no limitations History of Present Illness HPI Narrative: Patient presents with complaints of bilateral eye matting and itching. She reports symptoms began a few days ago, initially limited to the right eye, and initially only some itching and redness. She reports by yesterday both eyes were red and itchy. She awakened this morning with matting to bilateral eyes, had difficulty even opening the eyes due to copious yellow drainage and matting. She does report last week she began with some URI symptoms such as runny nose, coughing, sneezing. She has had some postnasal drainage and ear discomfort as well. She has been taking Heather from her symptoms with minimal relief. patient does not wear contact lenses. Related Data Home Medications ?Medication ?Instructions ?Recorded ?Confirmed ?Last Taken ?Type lorazepam 0.5 mg tablet 0.5 mg PO BID PRN Anxiety 12/04/23 03/30/24 03/15/24 History albuterol 90 mcg/actuation aerosol 90 mcg inhalation QID PRN SOB 01/04/24 03/30/24 Unknown History inhaler fenofibrate 160 mg tablet 160 mg PO DAILY 01/04/24 03/30/24 Unknown History ipratropium 0.5 mg-albuterol 3 mg ml inhalation 11/23/24 Unknown History (2.5 mg base)/3 mL nebulization soln levonorgestrel (Mirena) 1 device intrauterine ONCE 11/23/24 Unknown History Allergies Allergy/AdvReac Type Severity Reaction Status Date / Time doxycycline Allergy Intermediate Rash Verified 11/23/24 08:40 sulfamethoxazole (From Allergy Intermediate Rash Verified 11/23/24 08:40 Bactrim) trimethoprim (From Bactrim) Allergy Intermediate Rash Verified 11/23/24 08:40 Review of Systems Review of Systems: All systems reviewed & are unremarkable except as noted in HPI and below Constitutional: Constitutional: Reports no additional constitutional complaints Eyes: Eyes: Reports as per HPI, Reports eye discharge, Reports irritation, Reports itchy eyes and Denies requires corrective lenses ENT: Reports system reviewed and no additional complaints, except as documented, Reports otalgia, Reports nasal congestion, Reports nasal discharge, Reports post nasal drip and Reports sore throat Cardiovascular: Cardiovascular: Reports no additional cardiovascular complaints Respiratory: Respiratory: Reports no additional respiratory complaints and Reports cough Gastrointestinal: Gastrointestinal: Reports no additional gastrointestinal complaints [facility] Past Medical History Medical History Ear infection Diarrhea Dysphagia Nausea Postprandial RUQ pain Postprandial abdominal bloating Scoliosis Bronchitis Surgical History Surgical History No pertinent past surgical history Family History Family History Mother Family history non-contributory Social History Social History Years smoked: 30 Smoking status: Never smoker Tobacco type: cigarettes Additional smoking assessment comments: Social Smoker Alcohol intake: current Alcohol use details: Daily Substance use: never Gender identity (if verbalized by the patient): Female Spiritual care concerns: No Comments At the time of my signature, I reviewed and agree with the nursing past medical, surgical, social, and family history. There is no relevant family history pertinent to the patient complaint. Exam Const: General: cooperative, no acute distress, alert and awake Orientation/consciousness: oriented to person, oriented to place and oriented to time HENMT: Head: normal to inspection Ears: TM abnormal with fluid behind the TM bilateral Mouth: Yes moist mucous membranes Throat: posterior oropharynx abnormal erythema and postnasal drainage Eyes: Conjunctivae: conjunctival abnormality bilateral conjunctival injection and discharge Sclera: scleral abnormality bilateral scleral injection Pupils: Equal, round and reactive pupils present Resp: Effort & Inspection: normal respiratory effort and able to speak in complete sentences Auscultation: clear to auscultation bilaterally, no crackles, no rales, no rhonchi and no wheezes Cardio: Palpation: normal PMI Rate: regular rate Rhythm: regular rhythm Heart sounds: S1 normal heart sound present and S2 normal heart sound present Neuro: General: oriented to person, oriented to place and oriented to time Cranial nerves: Yes CN's II-XII intact bilaterally Psych: Appearance: grossly normal Thought process: Normal thought process present Insight: Good insight present (Psych) Judgement: Good judgement present (Psych) Course Course Level of Care: Express Care Visit Vital Signs Vital signs: Vital Signs Temperature 97.6 F 11/23/24 08:39 Pulse Rate 91 11/23/24 08:39 Respiratory Rate 18 11/23/24 08:39 Blood Pressure 118/80 11/23/24 08:39 Pulse Oximetry 99 11/23/24 08:39 Oxygen Delivery Room Air 11/23/24 08:39 Temperature 97.6 F 11/23/24 08:39 Pulse Rate 91 11/23/24 08:39 Respiratory Rate 18 11/23/24 08:39 Blood Pressure 118/80 11/23/24 08:39 Pulse Oximetry 99 11/23/24 08:39 Oxygen Delivery Room Air 11/23/24 08:39 Reviewed MDM - URI/Sore Throat MDM Narrative Medical decision making narrative: Patient with URI symptoms, conjunctivitis symptoms. Negative flu, patient reassured as she requested flu testing due to sick contacts. Treat for conjunctivitis. Prednisone burst to treat URI symptoms. Nontoxic appearing stable for discharge home. Discharge instructions reviewed with patient, as well as provided in writing per nursing staff. The instructions also include specific and strict return/GO TO THE ER as well as f/u information. All questions have been answered, and the patient deny any further questions with discharge and discharge plan. Some parts of this dictation were generated by voice recognition software and may contain typographical and/or grammatical inaccuracies. Differential Diagnosis Differential diagnosis: Likely upper respiratory infection, otitis media, sinusitis, viral infection, influenza and other (Conjunctivitis) Medical Records Attestation: I reviewed the patient's medical records. Lab Data Attestation: I reviewed the patient's lab results. Discharge Plan Discharge Clinical Impression: URI (upper respiratory infection) Qualifiers: URI type: unspecified URI Qualified Code(s): J06.9 - Acute upper respiratory infection, unspecified Conjunctivitis Qualifiers: Conjunctivitis type: acute Acute conjunctivitis type: bacterial Laterality: bilateral Qualified Code(s): H10.33 - Unspecified acute conjunctivitis, bilateral Patient Disposition: Home, Self-Care Condition: Stable Instructions: Antibiotic Form, Cold Symptoms (ED) Additional Instructions: use medications as prescribed. Follow with primary care provider. Emergency dept for new or worse symptoms Patient Language: Czech Prescriptions: New tobramycin 0.3 % drops 1 drp EACH EYE Q4H 7 Days Qty: 5 0RF prednisone 50 mg tablet 50 mg PO DAILY Qty: 5 0RF No Action lorazepam 0.5 mg tablet 0.5 mg PO BID PRN (Reason: Anxiety) ipratropium-albuterol 0.5 mg-3 mg(2.5 mg base)/3 mL solution for nebulization INHALATION Mirena 21 mcg/24hr (up to 8 yrs) 52 mg intrauterine device 1 device intrauterine ONCE Rx Instructions: as a single dose fenofibrate 160 mg tablet 160 mg PO DAILY albuterol 90 mcg/actuation aerosol 90 mcg inhalation QID PRN (Reason: SOB) Follow-up/Referrals: Shravan Burgos [Other] - 2 Weeks Stand Alone Forms: Work/School Release IP Time of Disposition: 09:04
[2024-11-23 09:16] LABS: EDINFLUASCREEN Negative (Negative); EDINFLUBSCREEN Negative (Negative)
--- OUTSIDE RECORDS SUMMARY | 2024-11-30 17:05 | XMS_ITS | Patient Health Summary ---
Author Organization [facility] Address [address] [place] [address] Care Team Providers Care Customer Quality Specialist Name Role Phone Unavailable Primary Care Provider Unavailabl e Note from [facility],non-owned Affiliates and Associated Physician Practices is amultiple site organization consisting of ambulatory clinics and hospital sitesin [place], [place], [place] and [place]. This disclosure is being madepursuant to the Care Everywhere program and may not contain all information available regarding this patient. Last updated 18.[facility] [employer] Social History Tobacco Use Types Packs/Day Years Used Date Smoking Tobacco: Never Assessed Sex and Gender Information Value Date Recorded Sex Assigned at Not on file Gender Identity Not on file Sexual Orientation Not on file
--- OUTSIDE RECORDS SUMMARY | 2024-11-30 17:05 | XMS_ITS | Clinical Summary ---
Author Organization [facility] Address [address] [place] [address] Care Team Providers Care Brownfield Redevelopment Specialist Name Role Phone Unavailable Primary Care Provider Unavailabl e Source Comments [facility],non-owned Affiliates and Associated Physician Practices is amultiple site organization consisting of ambulatory clinics and hospital sitesin [place], [place], [place] and [place]. This disclosure is being madepursuant to the Care Everywhere program and may not contain all information available regarding this patient. Last updated 18.[facility] [employer] Social History Tobacco Use Types Packs/Day Years Used Date Smoking Tobacco: Never Assessed Sex and Gender Information Value Date Recorded Sex Assigned at Not on file Gender Identity Not on file Sexual Orientation Not on file Plan of Treatment Health Maintenance Due Date Last Done Comments COLOGUARD (AGES 45-75) - COL ON CA SCREENING 1978 COLON MONITORING 1978 COLONOSCOPY - COLON CA SCREENING 1978 CT COLONOGRAPHY - COLON CA SCREENING 1978 Colorectal Cancer Screening 1978 FIT - COLON CA SCREENING 1978 FLEX SIG - COLON CA SCREENING 1978 LIPID TESTING 1978 MAMMOGRAM 1978 PAP SMEAR 1978 HIV SCREENING 1993 HEPATITIS C SCREENING 05/15/1996 DTAP/TDAP/TD VACCINES (1 - Tdap) 1997 HEPATITIS B VACCINE (1 of 3 - 19+ 3-dose series) 1997 DEPRESSION SCREENING 11/29/2023 COVID-19 VACCINE (1 - 2023-2 5 season) 2024 INFLUENZA VACCINE (#1) 2024 9, 09/26/2018, 09/25/2018 ZOSTER VACCINE (1 of 2) 2028 HIB VACCINE Aged Out No longer eligi ble based on patient's age to complete this topic HPV VACCINE Aged Out No longer eligi ble based on patient's age to complete this topic MENINGOCOCCAL VACCINE Aged Out No jeffrey omar eligible based on patient's age to complete this topic PNEUMOCOCCAL VACCINE Aged Out No long er eligible based on patient's age to complete this topic IRMA SEYMOUR Personal/Famil y Spouse [address] [facility] [place] [address] IRMA SEYMOUR Personal/Famil y Spouse [address] [place] [address]
--- OUTSIDE RECORDS SUMMARY | 2024-11-30 17:05 | XMS_ITS | Referral Summary ---
Author Organization [facility] Address [address] [place] [address] Care Team Providers Care Dragger Name Role Phone Unavailable Primary Care Provider Unavailabl e Source Comments [facility],non-owned Affiliates and Associated Physician Practices is amultiple site organization consisting of ambulatory clinics and hospital sitesin [place], [place], [place] and [place]. This disclosure is being madepursuant to the Care Everywhere program and may not contain all information available regarding this patient. Last updated 18.[facility] Social History Tobacco Use Types Packs/Day Years Used Date Smoking Tobacco: Never Assessed Sex and Gender Information Value Date Recorded Sex Assigned at Not on file Gender Identity Not on file Sexual Orientation Not on file Plan of Treatment Not on file
--- OUTSIDE RECORDS SUMMARY | 2024-11-30 17:06 | XMS_ITS | Encounter Summary ---
Author Organization [employer] Care Team Providers Care Car And Yard Supervisor Name Role Phone Arnold Roberts MD Unavailable Shravan Burgos PAC Primary Care Provider [phone] Encounter Details Date Type Department Care Team (Latest Contact Info) Description 10/03/2024 Travel Social History Tobacco Use Types Packs/Day Years Used Date Smoking Tobacco: Some Days Cigarettes Smokeless Tobacco: Never Comments:Pt has multiple day s in a row she abstains. Alcohol Use Standard Drinks/Week Comments Yes 5 (1 standard drink = 0.6 oz pur e alcohol) socially [facility] Utilities Answer Date Recorded In the past 12 months has th e electric, gas, oil, or water company threatened to shut off services in your home? No 12/31/2023 Social Connection and Isolation Panel [NHANES] A nswer Date Recorded In a typical week, how many times do you talk on the phone with family, friends, or neighbors? Patient declined 12/31/2023 How often do you get togethe r with friends or relatives? Patient declined 12/31/2023 How often do you attend gnosticism or jainism serv ices? Patient declined 12/31/2023 Do you belong to any clubs o r organizations such as gnosticism groups, unions, fraternal or athletic groups, or school groups? No 12/31/2023 How often do you attend meet ings of the clubs or organizations you belong to? Patient declined 12/31/2023 Are you , , di vorced, , never , or living with a partner? Never 12/31/2023 AUDIT-C Answer Date Recorded Q1: How often do you have a drink containing alc ohol? Patient declined 12/31/2023 Q2: How many drinks containi ng alcohol do you have on a typical day when you are drinking? Patient declined 12/31/2023 Q3: How often do you have si x or more drinks on one occasion? Patient declined 12/31/2023 Overall Financial Resource Strain (CARDIA) Answe r Date Recorded How hard is it for you to pa y for the very basics like food, housing, medical care, and heating? Not hard at all 12/31/2023 PHQ-2 Answer Date Recorded Total Score - Questions 1-9 0 12/2023 [facility] - Occupational Stress Questionnaire Answer Date Recorded Do you feel stress - tense, restless, nervous, or anxious, or unable to sleep at night because your mind is troubled all the time - these days? Patient declined 12/31/2023 Exercise Vital Sign Answer Date Recorde d On average, how many days pe r week do you engage in moderate to strenuous exercise (like a brisk walk)? Patient declined On average, how many minutes do you engage in exercise at this level? Patient declined 12/31/2023 Hunger Vital Sign Answer Date Recorded Within the past 12 months, y ou worried that your food would run out before you got the money to buy more. Patient declined Within the past 12 months, t he food you bought just didn't last and you didn't have money to get more. Patient declined 12/2023 PRAPARE - Transportation Answer Date Re corded In the past 12 months, has l ack of transportation kept you from medical appointments or from getting medications? No 12/2023 In the past 12 months, has l ack of transportation kept you from meetings, work, or from getting things needed for daily living? No 12/31/2023 Housing Stability Vital Sign Answer Bladimir e Recorded In the last 12 months, was t here a time when you were not able to pay the mortgage or rent on time? No 12/31/2023 In the last 12 months, how many places have you lived? 1 12/31/2023 In the last 12 months, was t here a time when you did not have a steady place to sleep or slept in a alf (including now)? No 12/31/2023 Education Answer Date Recorded What is the highest level of school you have completed or the highest degree you have received? Some college, no degree 04/23/2023 Sexually Active Control Partners Comments Yes I.U.D. Male Comments No Sex and Gender Information Value Date Recorded Sex Assigned at Not on file Legal Sex Female 9:34 PM CDT Gender Identity Not on file Sexual Orientation Not on file documented as of this encounter Plan of Treatment Upcoming Encounters Date Type Department Care Team (Late st Contact Info) Description 03/21/2025 4:30 PM CDT Office Visit [facility] - Primary Care - [place] [address] [place] [address] Shravan Burgos PAC [address] [place] [address] documented as of this encounter Goals Goal Patient Goal Type Associated Problems Recent Progress Patient-Stated? Author Behavioral Health Behavioral Health On track(2019 9:50 AM CDT) Yes Eloise Jenkins LCPC Note: Irma reported her goal for psychotherapy is to help me be able to deal with things in the present and in her past that are contributing to low and anxious mood. Goal Reviewed with: patient Readiness to change: Thinking about making a change Department associated with goal: [facility] Steps to achieve goal: 1. Irma will attend psychotherapy, at minimum twice a month. 2. Irma will identify and explore atleast three incidents/experiences of current stressors, past trauma and family dynamics that contribute to her mood concerns. 3. Irma will identify at least three ways/skills to heal and cope with the experiences (current and past) that trigger mood concerns. Behavioral Health Behavioral Health On track(2019 9:50 AM CDT) No Eloise Jenkins LCPC Note: Irma will engage in a plan of action to improve emotional and mental wellbeing. Goal Reviewed with: patient Readiness to change: Not yet ready to make a change Department associated with goal: [facility] Steps to achieve goal: 1. Pt will verbalize insight regarding contributing factors to overall emotional and mental well being ex: sleep hygiene, healthy relationships, moderation of alcohol consumption. 2. Pt will identify at least two behavioral changes she believes will positively impact her emotional and mental well being. 3. Pt will use two skills (make two action steps) weekly, for two months, to improve her emotional and mental well being. documented as of this encounter Visit Diagnoses Not on filedocumented in this encounter Additional Health Concerns Assessment Noted Time PHQ-9 Depression Total Score: 0 12/31/19 24 2:09 PM PATIENT ACCESS COORDINATOR documented as of this encounter Care Teams Car And Yard Supervisor Relationship Specialty Start Date End Date Shravan Burgos, [facility] [address] [place] [address] PCP - General Physician Testing Consultant 12/31/23 Arnold Roberts MD [address] [place] [address] Consulting Physician Pulmonary Disease 07/26/23 documented as of this encounter
--- OUTSIDE RECORDS SUMMARY | 2024-11-30 17:06 | XMS_ITS | Encounter Summary ---
Author Organization [facility] Address [address] [place] [address] Care Team Providers Care Seed Trucker Name Role Phone Unavailable Primary Care Provider Unavailabl e Encounter Details Date Type Department Care Team (Late st Contact Info) Description 11/07/2019 Orders Only [facility] - Orthopedics [address] [place] [address], [facility] [place] [phone] Susana Jose MD [address] [place] [phone] Wrist pain, right Social History Tobacco Use Types Packs/Day Years Used Date Smoking Tobacco: Never Assessed Sex and Gender Information Value Date Recorded Sex Assigned at Not on file Gender Identity Not on file Sexual Orientation Not on file documented as of this encounter Plan of Treatment Not on file documented as of this encounter Visit Diagnoses Diagnosis Wrist pain, right- Primary Pain in joint, forearm documented in this encounter
--- OUTSIDE RECORDS SUMMARY | 2024-11-30 17:06 | XMS_ITS | Encounter Summary ---
Author Organization [facility] Address [address] [place] [address] Phone Care Team Providers Care Patient Case Manager Name Role Phone Arnold Roberts MD Unavailable Shravan Burgos Primary Care Provider Reason for Visit * Reason Comments Medication Refill Encounter Details Date Type Department Care Team (Late st Contact Info) Description 11/16/2024 Refill [facility] - Primary Care - [place] [address] [place] [address] Shravan Burgos PAC [address] [place] [address] Medication Refill Social History Tobacco Use Types Packs/Day Years Used Date Smoking Tobacco: Some Days Cigarettes Smokeless Tobacco: Never Comments:Pt has multiple day s in a row she abstains. Alcohol Use Standard Drinks/Week Comments Yes 5 (1 standard drink = 0.6 oz pur e alcohol) socially [facility] Utilities Answer Date Recorded In the past 12 months has [employer], gas, oil, or water company threatened to [...] declined 12/31/2023 How often do you attend tenriism or taoism serv ices? Patient declined 12/31/2023 Do you belong to any clubs o r organizations such as tenriism groups, unions, fraternal or athletic groups, or [...] Total Score - Questions 1-9 0 12/2023 [facility] - Occupational Stress Questionnaire Answer Date Recorded [...] place to sleep or slept in a group home (including now)? No 12/31/2023 Education Answer Date [...] on file documented as of this encounter Miscellaneous Notes * Telephone Encounter - Shravan Burgos PAC - 11/16/2024 3:05 PM CST Refill approved. PDMP reviewed. FACTURING RECRUITER * Telephone Encounter - Demar Desouza RN - 11/16/2024 8:57 AM CST Medication failed the protocol, provider to review and approve the medication order if appropriate. Requested Prescriptions Pending Prescriptions Disp Refills LORazepam (ATIVAN) 0.5 MG Tablet [Pharmacy Med Name: LORAZEPAM 0.5 MG TABLET] 60 Tablet 0 Sig: TAKE 1 TABLET BY MOUTH TWICE A DAY NEEDED FOR ANXIETY Not Delegated - Benzodiazepines Protocol Failed - 11/16/2024 8:57 AM Failed - This refill cannot be delegated Passed - Visit with relevant provider in past 12 months or upcoming 90 days Recent Visits Date Type Provider Dept 10/03/24 Office Visit Marquita Renee, TEMPERATURE CONTROL INSPECTOR, AUDIT OFFICER [facility] 09/20/24 Office Visit Shravan Burgos PAC [facility] 12/31/23 Office Visit Shravan Burgos PAC [facility] Showing recent visits within past 365 days and meeting all other requirements Future Appointments No visits were found meeting these conditions. Showing future appointments within next 90 days and meeting all other requirements FACTURING RECRUITER documented in this encounter Plan of Treatment Upcoming Encounters Date Type Department Care Team (Late st Contact Info) Description 03/21/2025 4:30 PM CDT Office Visit [facility] - Primary Care - [place] [address] [place] [phone] Shravan Burgos PAC [address] [place] [phone] documented as of this encounter Goals Goal [...] making a change Department associated with goal: [facility] Steps to achieve goal: [...] make a change Department associated with goal: [facility] Steps to achieve goal: [...] as of this encounter Visit Diagnoses Diagnosis Anxiety Anxiety state, unspecified documented in this encounter Additional Health Concerns Assessment Noted Time PHQ-9 Depression Total Score: 0 12/31/19 24 2:09 PM MANUFACTURING RECRUITER documented as of this encounter Care Teams Patient Case Manager Relationship Specialty Start Date End Date Shravan Burgos, [facility] [address] [place] [address] PCP - General Physician Organic Section Technical Lead 12/31/23 Arnold Roberts MD [address] [place] [address] Consulting Physician Pulmonary Disease 07/26/23 documented as of this encounter
--- OUTSIDE RECORDS SUMMARY | 2024-11-30 17:06 | XMS_ITS | Encounter Summary ---
Author Organization [facility] Address [address] [place] [address] Phone Care Team Providers Care Scenic Arts Supervisor Name Role Phone Arnold Roberts MD Unavailable Shravan Burgos PAC Primary Care Provider [phone] Reason for Visit * Reason Comments Ear Pain Right ear pain. Off and on for the past couple of weeks. Encounter Details Date Type Department Care Team (Late st Contact Info) Description 10/03/2024 3:30 PM VESSEL WELDER Office Visit [facility] - Primary Care - [place] [address] [place] [address] Marquita Renee, BONE CHAR KILN TENDER, NURSING HOME PHYSICIAN [address] [place] [address] Right non-suppurative otitis media (Primary Dx) Discharge Disposition: Discharged to home or Selfcare Social History Tobacco Use Types Packs/Day Years Used Date Smoking Tobacco: Some Days Cigarettes Smokeless Tobacco: Never Tobacco Cessation:Ready to Q uit: Not Asked; Counseling Given: Not Answered Comments:Pt has multiple days in a row she abstains. Alcohol Use Standard Drinks/Week Comments Yes 5 (1 standard drink = 0.6 oz pur e alcohol) socially C Utilities Answer Date Recorded In the past 12 months has e electric, gas, oil, or water company [...] declined 12/31/2023 How often do you attend buddhism or judaism serv ices? Patient declined 12/31/2023 Do you belong to any clubs o r organizations such as buddhism groups, unions, fraternal or athletic groups, or [...] Total Score - Questions 1-9 0 12/2023 [facility] - Occupational Stress Questionnaire Answer Date [...] place to sleep or slept in a fpc (including now)? No 12/31/2023 Education Answer Date [...] on file documented as of this encounter Last Filed Vital Signs Vital Sign Reading Time Taken Comments Blood Pressure 114/80 10/03/2024 3:45 PM VESSEL WELDER Pulse 86 10/03/2024 3:45 PM VESSEL WELDER Temperature 36.3 ??C (97.3 ??F) 10/03/2024 3:45 PM CS T Respiratory Rate 18 10/03/2024 3:45 PM VESSEL WELDER Oxygen Saturation 98% 10/03/2024 3:45 PM VESSEL WELDER Inhaled Oxygen Concentration - - Weight 65.3 kg (144 lb) 10/03/2024 3:45 PM VESSEL WELDER Height 157.5 cm (5' 2 ) 10/03/2024 3:45 PM VESSEL WELDER Body Mass Index 26.34 10/03/2024 3:45 PM VESSEL WELDER documented in this encounter Patient Instructions * Patient Instructions* Marquita Renee, BONE CHAR KILN TENDER, NURSING HOME PHYSICIAN - 10/03/2024 3:30 PM VESSEL WELDER Take all medications as prescribed. Please continue with a balanced lifestyle of exercise and healthy eating. If any question, please call. Thanks for coming in today! EL WELDER documented in this encounter Progress Notes * Kirsten Martin RMA - 10/03/2024 3:30 PM CST Irma Seymour is a 44 y.o. female with current BMI: Body mass index is 26.34 kg/m??. Interventions discussed including: encourage daily physical activity and well- balanced diet. EL WELDER * Kirsten Martin RMA - 10/03/2024 3:30 PM CST Irma Seymour, 44 y.o., female is here for Ear Pain (Right ear pain. Off and on for the past couple of weeks.) Medication Refills: Patient reports/denies need for medication refills. Orders Pended: no Requested Prescriptions No prescriptions requested or ordered in this encounter Home Medications Medication Sig Start Date End Date Taking? Authorizing Provider albuterol 108 (90 Base) MCG/ACT Aerosol Solution take 1-2 Puffs by inhalation every 6 hours as needed for Wheezing or Cough. 09/20/24 Yes Shravan Burgos PAC famotidine (PEPCID) 20 MG Tablet Take 1 Tablet by mouth 2 times daily. 09/20/24 Yes Shravan Burgos PAC fenofibrate 160 MG Tablet Take 1 Tablet by mouth daily. 09/20/24 Yes Shravan Burgos PAC ibuprofen (MOTRIN) 200 MG Tablet Take 3 Tabs by mouth every 6 hours as needed for Fever. 12/26/18 Yes Ti Ma, PAPI ipratropium-albuterol (DUO-NEB) 0.5-2.5 (3) MG/3ML Solution 3 mL by Nebulization route 4 times daily. 09/20/24 Yes Shravan Burgos PAC LORazepam (ATIVAN) 0.5 MG Tablet TAKE 1 TABLET BY MOUTH TWICE A DAY NEEDED FOR ANXIETY 09/11/24 Yes Shravan Burgos PAC Respiratory Therapy Supplies (NEBULIZER) Device Use 4x/day prn. 02/14/19 Yes Amaya Kowalski APRN, CNP Respiratory Therapy Supplies (NEBULIZER/TUBING/MOUTHPIECE) Kit Use 4 times daily prn 02/16/19 Yes Amaya Kowalski APRN, CNP There are no discontinued medications. I have reviewed the home medication list with the patient and have reconciled discrepancies. The list is accurate to the best of my knowledge. Smoking Status: Social History Tobacco Use Smoking status: Some Days Types: Cigarettes Smokeless tobacco: Never Tobacco comments: Pt has multiple days in a row she abstains. Vaping Use Vaping status: Never Used Substance Use Topics Alcohol use: Yes Alcohol/week: 3.0 oz Types: 5 Cans of beer per week Comment: socially Drug use: Not Currently Smoking Cessation Counseling Given: yes Health Care Maintenance: Health Maintenance Due Topic Date Due TdaP Immunization Never done Pneumococcal Immunization Combined (1 of 2 - PCV) Never done SARS-COV-2 Immunization () 07/30/2024 Orders Pended: no The following BPA's have been addressed with the patient today: BMI and Smoking EL WELDER * Marquita Renee APRN, CNP - 10/03/2024 3:30 PM CST [address] [address] Dept: [phone] Dept Loc: [phone] Loc Patient: Irma Seymour : 1980 Sex: female Subjective: HPI: Irma Seymour presents for Ear Pain (Right ear pain. Off and on for the past couple of weeks.) . Pt presents today with complaints of right ear pain, sharp stabbing pain, no drainage, Pt states that she was treated in the past for an ear infection. She feels that she has another. Review of Systems Constitutional: Negative. HENT: Positive for ear pain. Eyes: Negative. Respiratory: Negative. Cardiovascular: Negative. Gastrointestinal: Negative. Genitourinary: Negative. Musculoskeletal: Negative. Skin: Negative. Neurological: Negative. Psychiatric/Behavioral: Negative. Objective: Vitals: 10/03/24 1545 BP: 114/80 Pulse: 86 Resp: 18 Temp: 97.3 ??F (36.3 ??C) TempSrc: Temporal SpO2: 98% Weight: 144 lb (65.3 kg) Height: 5' 2 (1.575 m) LMP: No LMP recorded. Patient has had an implant. Body mass index is 26.34 kg/m??. Physical Exam Vitals and nursing note reviewed. Constitutional: General: She is not in acute distress. Appearance: She is well-developed. HENT: Head: Normocephalic and atraumatic. Right Ear: External ear normal. A middle ear effusion is present. Tympanic membrane is erythematous. Left Ear: External ear normal. Ears: Comments: Erythema noted, no drainage, TM intact but bulging. Mouth/Throat: Mouth: Mucous membranes are moist. Pharynx: Oropharynx is clear. Eyes: Conjunctiva/sclera: Conjunctivae normal. Neck: Vascular: No carotid bruit. Cardiovascular: Rate and Rhythm: Normal rate and regular rhythm. Heart sounds: Normal heart sounds. Pulmonary: Effort: Pulmonary effort is normal. No respiratory distress. Breath sounds: Normal breath sounds. Musculoskeletal: Right lower leg: No edema. Left lower leg: No edema. Skin: General: Skin is warm and dry. Neurological: Mental Status: She is alert and oriented to person, place, and time. Psychiatric: Mood and Affect: Mood normal. Behavior: Behavior normal. Thought Content: Thought content normal. Judgment: Judgment normal. Medical Decision Making: Assessment & Plan Diagnoses and all orders for this visit: Right non-suppurative otitis media Other orders - amoxicillin-clavulanate (AUGMENTIN) 875-125 MG Tablet; Take 1 Tablet by mouth 2 times daily for 10 days. - fluticasone (FLONASE) 50 MCG/ACT Suspension; 1 Pav[address] by Nasal route daily. Use in each nostril asdirected. Follow-up Information Return if symptoms worsen or fail to improve. Augmentin ordered Flonase ordered Encourage to increase water, May take OTC tylenol or motrin for pain LOS Today OFFICE/OP EST LVL 4 MOD MDM/30-39 MIN EL WELDER documented in this encounter Plan of Treatment Upcoming Encounters Date Type Department Care Team (Late st Contact Info) Description 03/21/2025 4:30 PM CDT Office Visit [facility] - Primary Care - [place] [address] [place] [address] Shravan Burgos PAC [address] [place] [address] documented as of this encounter Goals Goal Patient Goal Type Associated Problems Recent Progress Patient-Stated? Author [facility] On track(2019 9:50 AM CDT) Yes Eloise Jenkins LCPC Note: Irma reported her goal for psychotherapy is to help me be able to deal with things in the present and in her past that are contributing to low and anxious mood. Goal Reviewed with: patient Readiness to change: Thinking about making a change Department associated with goal: [facility] Steps to achieve goal: 1. Irma will attend psychotherapy, at minimum twice a month. 2. Irma will identify and explore atleast three incidents/experiences of current stressors, past trauma and family dynamics that contribute to her mood concerns. 3. Irma will identify at least three ways/skills to heal and cope with the experiences (current and past) that trigger mood concerns. Behavioral [facility] On track(2019 9:50 AM CDT) No Eloise Jenkins LCPC Note: Irma will engage in a plan of action to improve emotional and mental wellbeing. Goal Reviewed with: patient Readiness to change: Not yet ready to make a change Department associated with goal: [facility] Steps to achieve goal: [...] as of this encounter Visit Diagnoses Diagnosis Right non-suppurative otitis media- Primary Nonsuppurative otitis media, not specified as acute or chronic documented in this encounter Additional Health Concerns Assessment Noted Time PHQ-9 Depression Total Score: 0 12/31/19 24 2:09 PM VESSEL WELDER documented as of this encounter Care Teams Scenic Arts Supervisor Relationship Specialty Start Date End Date Shravan Burgos, PAC [address] [place] [address] PCP - General Physician Scale Clerk 12/31/23 Arnold Roberts MD [address] [place] [id number] Consulting Physician Pulmonary Disease 07/26/23 documented as of this encounter
--- OUTSIDE RECORDS SUMMARY | 2024-11-30 17:06 | XMS_ITS | Clinical Summary ---
Author Organization [facility] Address [address] [place] [address] Phone Care Team Providers Care Director Of Business Systems Name Role Phone Arnold Roberts MD Unavailable Shravan Burgos PAC Primary Care Provider Allergies Active Allergy Reactions Criticality Noted Date Comments Sulfamethoxazole-Trimethoprim Rash 2017 Doxycycline Rash Medium 06/01/2018 Medications ibuprofen (MOTRIN) 200 MG Tablet Take 3 Tabs by mouth every 6 hours as needed for Fever. 20 Tab 12/26/19 19 Active Respiratory Therapy Supplies (NEBULIZER) Device Use 4x/day prn. 1 Each 02/15/20 19 Active Respiratory Therapy Supplies (NEBULIZER/TUBI NG/MOUTHPIECE) Kit Use 4 times daily prn 1 Each 02/17/20 19 Active fenofibrate 160 MG TabletIndicatio ns:Hypertriglyc eridemia Take 1 Tablet by mouth daily. 90 Tablet 3 09/20/20 24 Active albuterol 108 (90 Base) MCG/ACT Aerosol SolutionIndicat ions:Mild persistent asthma with exacerbation take 1-2 Puffs by inhalation every 6 hours as needed for Wheezing or Cough. 18 g 09/20/20 24 Active ipratropium-alb uterol (DUO-NEB) 0.5-2.5 (3) MG/3ML SolutionIndicat ions:Mild persistent asthma with exacerbation 3 mL by Nebulization route 4 times daily. 360 mL 1 09/20/20 24 Active famotidine (PEPCID) 20 MG TabletIndicatio ns:Biliary dyskinesia Take 1 Tablet by mouth 2 times daily. 180 Tablet 1 09/20/20 24 Active fluticasone (FLONASE) 50 MCG/ACT Suspension 1 [place] by Nasal route daily. Use in each nostril as directed. 16 g 1 10/03/20 24 Active LORazepam (ATIVAN) 0.5 MG TabletIndicatio ns:Anxiety TAKE 1 TABLET BY MOUTH TWICE A DAY NEEDED FOR ANXIETY 60 Tablet 11/16/20 24 Active LORazepam (ATIVAN) 0.5 MG TabletIndicatio ns:Anxiety TAKE 1 TABLET BY MOUTH TWICE A DAY NEEDED FOR ANXIETY 60 Tablet 10/16/20 24 2023 Discontinued Active Problems Problem Noted Date Diagnosed Date Moderate persistent asthma without complication 07/26/2023 Facial asymmetry 12/05/2020 Apical abscess 12/05/2020 Leukocytosis 12/24/2019 Chronic bronchitis 03/09/2019 Lung infiltrate 03/09/2019 Tobacco use disorder 03/09/2019 Other chronic sinusitis 03/09/2019 BMI 26.0-26.9,adult 09/01/2017 Overview (08/09/2018): Last Assessment & Plan: Recommended patient to continue to increase heart healthy diet with adequate fruits, vegetables, and plenty of water along with mild-moderate daily exercise as tolerated. Anxiety 05/11/2017 Overview (08/09/2018): Last Assessment & Plan: Anxiety disorder does not seem to be well controlled all the BuSpar at this time but she refused to changed anything else at this current time based upon history of not responding well any other medications. They did give for Vistaril in ER that she noted made her extremely drowsy so will avoid that at this time. Will keep from the BuSpar 7.5 twice daily also increase her lorazepam to take 1 tablet b.i.d. and then wean down after 2 weeks of it to half a tablet twice daily. She was strongly advised the addiction properties of this medication and was requesting Xanax which I advised her is not a good idea as this is more addicting. She understands this and verbalized the understanding of it. We discussed her going to see a counselor in order to discuss all of this further will see her here in a month regarding condition and if there is no improvement we will consult Psychiatry. Encounters Date Type Department Care Team Description 11/16/[facility] [address] [place] [address] Shravan Burgos, PAC Medication Refill 10/16/2024 Refill [facility] [address] [place] [phone] Shravan Burgos, PAC Medication Refill 10/13/2024 Nurse Triage [facility] [address] [place] [phone] Shravan Burgos, PAC Ear Pain 10/03/2024 3:30 PM FOREIGN AGENT [facility] [address] [place] [phone] Marquita Renee APRN, SILICA MIXER OPERATOR Right non-suppurative otitis media (Primary Dx) Discharge Disposition: Discharged to home or Selfcare 10/03/2024 Travel 09/21/2024 Telephone [facility] [address] [place] [phone] Shravan Burgos, PAC Medication Management 09/20/2024 4:30 PM CDT [facility] [address] [place] [phone] Shravan Burgos, PAC Biliary dyskinesia (Primary Dx); Hypertriglyceridemia; Insomnia, unspecified type; Mild persistent asthma with exacerbation Discharge Disposition: Discharged to home or Selfcare 09/20/2024 Travel 09/11/2024 3:56 PM CDT - 09/11/2024 11:59 PM CDT Hospital Encounter [facility] Mamm[facility] [address] [place] [phone] Veronika Orantes APRN, SILICA MIXER OPERATOR Discharge Disposition: Discharged to home or Selfcare 09/11/2024 Travel 09/09/2024 Refill [facility] - [facility] Care - [place] [address] [place] [address] Shravan Burgos, PAPI Medication Refill from Last 3 Months Immunizations Immunization Administration Dates Next Due Hepatitis B Vaccine 08/27/2014,07/25/2014 Influenza Vaccine greater than 3 yrs 09/11/2022, 09/26/2018 Influenza Vaccine, Quadrivalent, PF 08/29,08/25/2023,08/17/2019,2017,11/26/2017 Influenza, Seasonal, Injecta ble, Undefined 09/11/2022 Family History Medical History Relation Name Comments Seizures Brother Epilepsy Hypertension Father Heart Attack Maternal Grandfather Anxiety disorder Mother Other-comment Sister Spina Bifida Relation Name Status Comments Brother Father Alive Maternal Grandfather Mother Alive Sister Social History Tobacco Use Types Packs/Day Years Used Date Smoking Tobacco: Some Days Cigarettes Smokeless Tobacco: Never Tobacco Cessation:Ready to Q uit: Not Asked; Counseling Given: Not Answered Comments:Pt has multiple days in a row she abstains. Alcohol Use Standard Drinks/Week Comments Yes 5 (1 standard drink = 0.6 oz pur e alcohol) socially [employer] Utilities Answer Date Recorded In the past [...] declined 12/31/2023 How often do you attend mu-ism or anabaptist serv ices? Patient declined 12/31/2023 Do you belong to any clubs o r organizations such as mu-ism groups, unions, fraternal or athletic groups, or [...] Total Score - Questions 1-9 0 12/2023 [facility] of Occupat ional Health - Occupational Stress [...] place to sleep or slept in a residential (including now)? No 12/31/2023 Education Answer Date [...] on file Sexual Orientation Not on file Last Filed Vital Signs Vital Sign Reading Time Taken Comments Blood Pressure 114/80 10/03/2024 3:45 PM FOREIGN AGENT Pulse 86 10/03/2024 3:45 PM FOREIGN AGENT Temperature 36.3 ??C (97.3 ??F) 10/03/2024 3:45 PM CS T Respiratory Rate 18 10/03/2024 3:45 PM FOREIGN AGENT Oxygen Saturation 98% 10/03/2024 3:45 PM FOREIGN AGENT Inhaled Oxygen Concentration - - Weight 65.3 kg (144 lb) 10/03/2024 3:45 PM FOREIGN AGENT Height 157.5 cm (5' 2 ) 10/03/2024 3:45 PM FOREIGN AGENT Body Mass Index 26.34 10/03/2024 3:45 PM FOREIGN AGENT Plan of Treatment Upcoming Encounters Date Type Department Care Team (Late st Contact Info) Description 03/21/2025 4:30 PM CDT Office Visit [facility] - Primary Care - [place] [address] [place] [address] Shravan Burgos, PAC [address] [place] [address] Health Maintenance Due Date Last Done Comments TdaP Immunization 1978 Pneumococcal Immunization Combined (1 of 2 - PCV) 1997 HPV/Cotest 2008 SARS-COV-2 Immunization ( - season) 2024 11/07/2021, 10/17/2021 Cervical Cancer Screening (CCS) 09/11/2025 Pap Smear 09/11/2025 09/11/2022 Colonoscopy 03/15/2034 03/15/2024, 03/15/2024 Colorectal Cancer Screening 03/15/2034 Respiratory Syncytial Virus (RSV) Immunization (Adult) (1 - 1-dose 75+ series) 2053 03/15/2024 Hepatitis B Immunization Discontinued 08/27/2014, 06/30 Hepatitis C Virus (HCV) Screening Completed 07/14/2023 Influenza Immunization Completed , 08/25/2023, 09/11/2022, Additional history exists Discussion re Starting/Frequency of Mammograms Completed 09/11/2024, 08/14/2022, 11/04/2020, Additional history exists Meningococcal Immunization (ACWY) Aged Out No longer eligible based on patient's age to complete this topic Rotavirus Immunization Aged Out No lo nger eligible based on patient's age to complete this topic Goals Goal Patient Goal Type Associated Problems Recent Progress Patient-Stated? Author Behavioral [facility] Behavioral Health On track(2019 9:50 AM CDT) Yes Eloise Jenkins LCPC Note: Irma reported her goal for psychotherapy is to help me be able to deal with things in the present and in her past that are contributing to low and anxious mood. Goal Reviewed with: patient Readiness to change: Thinking about making a change Department associated with goal: [facility] Steps to achieve goal: 1. Irma will attend psychotherapy, at minimum twice a month. 2. Irma will identify and explore atleast three incidents/experiences of current stressors, past trauma and family dynamics that contribute to her mood concerns. 3. Irma will identify at least three ways/skills to heal and cope with the experiences (current and past) that trigger mood concerns. Behavioral [facility] Behavioral Health On track(2019 9:50 AM CDT) No Eloise Jenkins LCPC Note: Irma will engage in a plan of action to improve emotional and mental wellbeing. Goal Reviewed with: patient Readiness to change: Not yet ready to make a change Department associated with goal: [facility] Steps to achieve goal: [...] improve her emotional and mental well being. Procedures Procedure Name Priority Date/Time Associated Diagnosis Comments IMAGE GENERIC SCAN 09/14/2024 12 :00 AM CDT NU SCREENING BILATERAL DIGITAL W CAD W WILBERT Routine 09/11/2024 4:29 PM CDT Visit for screening mammogram GASTROENTEROLOGY CONSULT 024 12:00 AM CDT HM COLONOSCOPY 03/15/2024 12:00 AM CDT HEPATITIS C ANTIBODY Routine 07/14/2023 4:05 PM CDT Encounter for preventative adult health care examination from Last 3 Months or Most Recently Relevant to Health Maintenance Results * IMAGING MISCELLANEOUS SCAN (09/14/2024 12:00 AM CDT) 09/14/2024 us Provider Scan IMG DIAGNOSTIC ORDERABLES Final Result SCAN * NU SCREENING BILATERAL DIGITAL W CAD W WILBERT (09/11/2024 4:29 PM CDT) Anatomical Region Laterality Modality breast Bilateral Mammography 09/11/2024 4:25 PM CDT Narrative 09/12/2024 10:54 AM CDT - NU SCREENING BILATERAL DIGITAL W CAD W WILBERT BILATERAL DIGITAL SCREENING MAMMOGRAM 3D/2D WITH CAD WITH MEDIOLATERAL OBLIQUE CRANIOCAUDAL: 09/11/2024 The study was acquired using digital technology and interpreted from soft copy. Current study was also evaluated with ICAD version 7.2. 2D digital mammographic views, as well as 3D digital tomosynthesis were performed in the CC and MLO projections. ?? CLINICAL: Routine screening. Patient has no complaints. No personal history of cancer. No family history of breast cancer. ?? COMPARISONS: Comparison is made to exams dated: ??08/14/2022, 11/04/2020, 09/13/2020, and 03/14/2019 [facility]. ?? BREAST TISSUE:The breasts are heterogeneously dense, which may obscure small masses. ?? FINDINGS: No significant masses, calcifications, or other findings are seen in either breast. ?? There has been no significant interval change. IMPRESSION: NEGATIVE There is no mammographic evidence of malignancy. A 1 year screening mammogram is recommended. ?? A letter will be sent to the patient with these results. The patient will be entered into a reminder system with a target due date of 1 year for her next screening exam. Electronically signed by: Mounika Song M.D. ? ll/penrad:09/11/2024 19:49:19 ?? Buck Swamper(s): Dhara ??RT George(R)(M), [facility] letter sent: Normal Exam ?? Reading location: [place] Mammogram BI-RADS: Category 1: Negative Procedure Note Mounika Song MD - 09/12/2024 - NU SCREENING BILATERAL DIGITAL W CAD W WILBERT BILATERAL DIGITAL SCREENING MAMMOGRAM 3D/2D WITH CAD WITH MEDIOLATERAL OBLIQUE CRANIOCAUDAL: 09/11/2024 The study was acquired using digital technology and interpreted from soft copy. Current study was also evaluated with ICAD version 7.2. 2D digital mammographic views, as well as 3D digital tomosynthesis were performed in the CC and MLO projections. CLINICAL: Routine screening. Patient has no complaints. No personal history of cancer. No family history of breast cancer. COMPARISONS: Comparison is made to exams dated: 08/14/2022, 11/04/2020, 09/13/2020, and 03/14/2019 [facility]. BREAST TISSUE:The breasts are heterogeneously dense, which may obscure small masses. FINDINGS: No significant masses, calcifications, or other findings are seen in either breast. There has been no significant interval change. IMPRESSION: NEGATIVE There is no mammographic evidence of malignancy. A 1 year screening mammogram is recommended. A letter will be sent to the patient with these results. The patient will be entered into a reminder system with a target due date of 1 year for her next screening exam. Electronically signed by: Mounika vidales/jenna:09/11/2024 19:49:19 Buck Swamper(s): RT Raegan(R)(M), [facility] letter sent: Normal Exam Reading location: [place] Mammogram BI-RADS: Category 1: Negative Veronika Orantes APRN, SILICA MIXER OPERATOR IMG MAMMO ORDERABLES Kaylin l Result * GASTROENTEROLOGY CONSULT (09/04/2024 12:00 AM CDT) 09/04/2024 us Provider Scan GENERIC SCAN ORDERS CONSULT Kaylin l Result SCAN * HM COLONOSCOPY (03/15/2024 12:00 AM CDT) 03/15/2024 Provider Scan PROCEDURE/MINOR SURGICAL ORDERAB LES Final Result SCAN * HEPATITIS C ANTIBODY (07/14/2023 4:05 PM CDT) hepatitis C antibody 0.10 <1 S/CO [facility] [id number] B 07/15/2023 3:00 PM CDT [facility] Comment: Signal/Cutoff ratio ??< 0.79 is Nondetected Signal/Cutoff ratio 0.80-0.99 is Grayzone Signal/Cutoff ratio > 0.99 is Detected Supplemental assays are recommended if signal/cutoff ratio is >/=1.00. ??Signal/cutoff ratio result >/= 5.00 is 97% predictive of positivity for recombinant immunoblot assay (RIBA) and will be reported to the [place] Department of Public Health as required. Blood Venipuncture / Unknown 07/14/2023 4:05 PM CDT 07/14/2023 4:33 PM CDT Sravani Ramsay MD CHEMISTRY ORDERABLES Final R esult [facility] [address] [place] [address], from Last 3 Months or Most Recently Relevant to Health Maintenance Insurance [facility] Advance Directives * Full Code (Latest Code Status on File) Date Activated Date Inactivated Comments 12/05/2020 4:55 AM 12/06/2020 12:59 AM CPR-Full Mya tment: FULL ARREST: Attempt Resuscitation/CPR wit intubation and mechanical ventilation. PRE-ARREST: Use entire range of life support measures to stabilize the patient. Care Teams Director Of Business Systems Relationship Specialty Start Date End Date Shravan Burgos, PAC [address] [place] [address] PCP - General Physician Bilingual Medical Assistant 12/31/23 Arnold Roberts MD [address] [place] [address] Consulting Physician Pulmonary Disease 07/26/23
--- OUTSIDE RECORDS SUMMARY | 2024-11-30 17:06 | XMS_ITS | Encounter Summary ---
Author Organization [facility] Address [address] [place] [address] Care Team Providers Care Ediphone Operator Name Role Phone Unavailable Primary Care Provider Unavailabl e Reason for Visit * Reason Onset Date Comments Referral 09/07/2019 Encounter Details Date Type Department Care Team (Late st Contact Info) Description 09/07/2019 Telephone [facility] - Orthopedics [address], [facility] [place] [address] Violeta Chacon CPC Referral Social History Tobacco Use Types Packs/Day Years Used Date Smoking Tobacco: Never Assessed Sex and Gender Information Value Date Recorded Sex Assigned at Not on file Gender Identity Not on file Sexual Orientation Not on file documented as of this encounter Miscellaneous Notes * Telephone Encounter - Violeta Chacon CPC - 09/07/2019 11:48 AM CDT Received referral from [facility] for patient right wrist ganglion cyst. Attempted to schedule patient with Dr. Susana Jose patient states at time of call she in an ER she will call back. documented in this encounter Plan of Treatment Not on file documented as of this encounter Visit Diagnoses Not on filedocumented in this encounter
--- OUTSIDE RECORDS SUMMARY | 2024-11-30 17:06 | XMS_ITS | Encounter Summary ---
Author Organization [facility] Address [address] [address] Phone Care Team Providers Care Litigation Associate Name Role Phone Arnold Roberts MD Unavailable Shravan Burgos Primary Care Provider Reason for Visit * Reason Comments Medication Refill Encounter Details Date Type Department Care Team (Late st Contact Info) Description 10/16/2024 Refill [facility] - [facility] Care - [place] [address] [place] [address] Shravan Burgos PAC [address] [place] [address] Medication Refill Social History Tobacco Use Types Packs/Day Years Used Date Smoking Tobacco: Some Days Cigarettes Smokeless Tobacco: Never Comments:Pt has multiple day s in a row she abstains. Alcohol Use Standard Drinks/Week Comments Yes 5 (1 standard drink = 0.6 oz pur e alcohol) socially [facility] Utilities Answer Date Recorded In the past 12 months has [employer], gas, oil, or water company threatened to [...] declined 12/31/2023 How often do you attend restorationism or buddhism serv ices? Patient declined 12/31/2023 Do you belong to any clubs o r organizations such as restorationism groups, unions, fraternal or athletic groups, or [...] Total Score - Questions 1-9 0 12/2023 [facility] of Occupat ional [facility] - Occupational Stress Questionnaire Answer Date [...] place to sleep or slept in a [place] health care facility (including now)? No 12/31/2023 Education Answer Date [...] Telephone Encounter - Shravan Burgos PAC - 10/16/2024 5:37 PM CST Refill approved. PDMP reviewed. ET SHEARER * Telephone Encounter - Demar Desouza RN - 10/16/2024 1:39 PM CST Medication failed the protocol, provider to review and approve the medication order if appropriate. Requested Prescriptions Pending Prescriptions Disp Refills LORazepam (ATIVAN) 0.5 MG Tablet [Pharmacy Med Name: LORAZEPAM 0.5 MG TABLET] 60 Tablet 0 Sig: TAKE 1 TABLET BY MOUTH TWICE A DAY NEEDED FOR ANXIETY Not Delegated - Benzodiazepines Protocol Failed - 10/16/2024 1:21 PM Failed - This refill cannot be delegated Passed - Visit with relevant provider in past 12 months or upcoming 90 days Recent Visits Date Type Provider Dept 10/03/24 Office Visit Marquita Renee, [address] LIAISON, OSS ARCHITECT [facility] 09/20/24 Office Visit Shravan Burgos PAC [facility] 12/31/23 Office Visit Shravan Burgos PAC [facility] Showing recent visits within past 365 days and meeting all other requirements Future Appointments No visits were found meeting these conditions. Showing future appointments within next 90 days and meeting all other requirements ET SHEARER documented in this encounter Plan of Treatment Upcoming Encounters Date Type Department Care Team (Late st Contact Info) Description 03/21/2025 4:30 PM CDT Office Visit [facility] - Primary Care - [place] [address] [place] [phone] Shravan Burgos PAC [address] [place] [phone] documented as of this encounter Goals Goal [...] making a change Department associated with goal: [facility] Steps to achieve goal: [...] make a change Department associated with goal: [facility] Steps to achieve goal: [...] Total Score: 0 12/31/19 24 2:09 PM BILLET SHEARER documented as of this encounter Care Teams Litigation Associate Relationship Specialty Start Date End Date Shravan Burgos, [facility] [address] [place] [address] PCP - General Physician Graduate Nurse 12/31/23 Arnold Roberts MD [address] [place] [address] Consulting Physician Pulmonary Disease 07/26/23 documented as of this encounter
--- OUTSIDE RECORDS SUMMARY | 2024-11-30 17:06 | XMS_ITS | Encounter Summary ---
Author Organization [facility] Address [address] [place] [address] Phone Care Team Providers Care Developer Prover Mechanical Name Role Phone Arnold Roberts MD Unavailable Shravan Burgos PAC Primary Care Provider Reason for Visit * Reason Onset Date Comments Ear Pain 10/13/2024 Encounter Details Date Type Department Care Team (Late st Contact Info) Description 10/13/2024 Nurse Triage [facility] [address] [place] [address] Shravan Burgos, PAC [address] [place] [address] Ear Pain Social History Tobacco Use Types Packs/Day Years Used Date Smoking Tobacco: Some Days Cigarettes Smokeless Tobacco: Never Comments:Pt has multiple day s in a row she abstains. Alcohol Use Standard Drinks/Week Comments Yes 5 (1 standard drink = 0.6 oz pur e alcohol) socially [facility] Utilities Answer Date Recorded In the past 12 months has [employer] electric, gas, oil, or water company threatened [...] declined 12/31/2023 How often do you attend roman catholic or samaritan serv ices? Patient declined 12/31/2023 Do you belong to any clubs o r organizations such as roman catholic groups, unions, fraternal or athletic groups, or [...] Total Score - Questions 1-9 0 12/2023 [facility] - Occupational Stress Questionnaire Answer Date Recorded [...] place to sleep or slept in a jail (including now)? No 12/31/2023 Education Answer Date [...] Encounter - Shravan Burgos PAC - 10/16/2024 7:39 AM CST Would recommend use of daily allergy pill, such as zyrtec or claritin, Flonase nasal spray, and sudafed. All are available OTC. If symptoms are not improving despite treatment, she will need to be seen in office or [facility] to be re-evaluated. ATIONS SUPERINTENDENT * Telephone Encounter - Aliza Atwood RN - 10/13/2024 3:49 PM CST SITUATION: Ear Pain BACKGROUND: Caller contacting PCP office. Patient was seen in office on 10/03/2024 for Right non-suppurative otitis media. Patient states shehas been taking amoxicillin-clavulanate (AUGMENTIN) 875-125 MG Tablet but the pressure is still there with throbbing at times. ASSESSMENT: Symptom Description / Location: Right Ear Pain Pressure behind eye Throbbing inside of ear More so in afternoon Pops and cracks every now and then Blurred vision and vision changes once in awhile since earache started. Pushing on back of right side of head can relieve pressure Fatigue States had right shoulder blade pain Pain: 2 Fever: Denies fever. Treatment / Response: amoxicillin-clavulanate (AUGMENTIN) 875-125 MG Tablet Denies: Moving the earlobe or touching the ear clearly increases the pain Foreign body stuck in the ear canal [place] or red swelling behind the ear Stiff neck Severe earache pain Discharge Blood discharge RECOMMENDATION: Caller agreeable to disposition: see in office today. Directed to Urgent care due to no office availability. Care advice provided per triage guideline. Caller verbalized understanding. Patient statesshe does not want to go to [facility] stating that she is trying not have that extra cost. Encounter routed to provider to notify. Patient is requesting recommendations due to ear pain and pressure not resolving from visit on 10/03/2024. Please Advise and call patient back. - See care advice and disposition for Guideline. First positive answer recorded, all responses to prior questions were negative. If symptoms increase, change or if new symptoms develop, call your health care provider or call back. Recommendations were based on caller information and is not a diagnosis. Verified and reviewed all triage information with caller. Reason for Disposition New blurred vision or vision changes Protocols used: [id number] ATIONS SUPERINTENDENT * Telephone Encounter - Carmen Robbins CMA - 10/13/2024 3:48 PM CST Symptom: Earache Outcome: Schedule an appointment within 3 days Reason: Caller denied all higher acuity questions The caller rejected this outcome. Caller Denied: * Severe pain now * Suspects Swimmer's ear ATIONS SUPERINTENDENT documented in this encounter Plan of Treatment Upcoming Encounters Date Type Department Care Team (Late st Contact Info) Description 03/21/2025 4:30 PM CDT Office Visit [facility] - Primary Care - [place] [address] [place] [address] Shravan Burgos, PAC [address] [place] [address] documented as of this encounter Goals Goal Patient Goal Type Associated Problems Recent Progress Patient-Stated? Author [facility] On track(2019 9:50 AM CDT) Yes Eloise Jenkins LCPC Note: Irma reported her goal for psychotherapy is to help me be able to deal with things in the present and in her past that are contributing to low and anxious mood. Goal Reviewed with: patient Readiness to change: Thinking about making a change Department associated with goal: [facility] Steps to achieve goal: 1. Irma will attend psychotherapy, at minimum twice a month. 2. Irma will identify and explore atleast three incidents/experiences of current stressors, past trauma and family dynamics that contribute to her mood concerns. 3. Irma will identify at least three ways/skills to heal and cope with the experiences (current and past) that trigger mood concerns. [facility] On track(2019 9:50 AM CDT) No Eloise Jenkins LCPC Note: Irma will engage in a plan of action to improve emotional and mental wellbeing. Goal Reviewed with: patient Readiness to change: Not yet ready to make a change Department associated with goal: [facility] Steps to achieve [...] Total Score: 0 12/31/19 24 2:09 PM OPERATIONS SUPERINTENDENT documented as of this encounter Care Teams Developer Prover Mechanical Relationship Specialty Start Date End Date Shravan Burgos, PAC [address] [place] [phone] PCP - General Physician Amphibian Crewmember 12/31/23 Arnold Roberts MD [address] [place] [address] Consulting Physician Pulmonary Disease 07/26/23 documented as of this encounter
--- OUTSIDE RECORDS SUMMARY | 2024-11-30 17:07 | XMS_ITS | Encounter Summary ---
Author Organization [facility] Address [address] [place] [address] Phone Care Team Providers Care Advertising Copy Writer Name Role Phone Arnold Roberts MD Unavailable Shravan Burgos Primary Care Provider Reason for Visit * Reason Comments Medication Management Had sleep study Encounter Details Date Type Department Care Team (Late st Contact Info) Description 09/20/2024 4:30 PM CDT Office Visit [facility] - Primary Care - [place] [address] [place] [address] Shravan Burgos, PAPI [address] [place] [address] Biliary dyskinesia (Primary Dx); Hypertriglyceridemia; Insomnia, unspecified type; Mild persistent asthma with exacerbation Discharge Disposition: Discharged to home or Selfcare Social History Tobacco Use Types Packs/Day Years Used Date Smoking Tobacco: Some Days Cigarettes Smokeless Tobacco: Never Tobacco Cessation:Ready to Q uit: No; Counseling Given: No Comments:Pt has multiple days in a row she abstains. Alcohol Use Standard Drinks/Week Comments Yes 5 (1 standard drink = 0.6 oz pur e alcohol) socially [facility] Utilities Answer Date Recorded In the past 12 months has [employer] electric, gas, oil, or water company threatened [...] How often do you attend mu-ism or sabianism serv ices? Patient declined 12/31/2023 Do you [...] Total Score - Questions 1-9 0 12/2023 [facility] of Occupat ional [facility] - Occupational Stress Questionnaire Answer Date Recorded [...] place to sleep or slept in a nursing home (including now)? No 12/31/2023 Education Answer [...] Sign Reading Time Taken Comments Blood Pressure 110/70 09/20/2024 4:12 PM CDT Pulse 75 09/20/2024 4:12 PM CDT Temperature 36.6 ??C (97.8 ??F) 09/20/2024 4:12 PM CD T Respiratory Rate 18 09/20/2024 4:12 PM CDT Oxygen Saturation 99% 09/20/2024 4:12 PM CDT Inhaled Oxygen Concentration - - Weight 65.8 kg (145 lb) 09/20/2024 4:12 PM CDT Height - - Body Mass Index 26.52 07/26/2023 2:21 PM CDT documented in this encounter Patient Instructions * Patient Instructions* Shravan Burgos, PAC - 09/20/2024 4:30 PM CDT Symptoms and imaging seem to suggest symptoms related to gallbladder. Advised close follow up with surgeon. May consider cholecystectomy. Refilled fenofibrate and albuterol. Start melatonin for sleep. May consider hydroxyzine if no improvement. Follow up in 6 months with labs prior to appt. Take all medications as prescribed. Please continue with a balanced lifestyle of exercise and healthy eating. If any question, please call. Thanks for coming in today! documented in this encounter Progress Notes * Cristin TolentinoJESUSITA - 09/20/2024 4:30 PM CDT Irma Seymour, 44 y.o., female is here for Medication Management (Had sleep study ) Medication Refills: Patient reports/denies need for medication refills. Orders Pended: yes Requested Prescriptions Pending Prescriptions Disp Refills fenofibrate 160 MG Tablet 90 Tablet 3 Sig: Take 1 Tablet by mouth daily. Home Medications Medication Sig Start Date End Date Taking? Authorizing Provider albuterol 108 (90 Base) MCG/ACT Aerosol Solution take 1-2 Puffs by inhalation every 6 hours as needed for Wheezing or Cough. 12/31/23 Yes Shravan Burgos PAC fenofibrate 160 MG Tablet Take 1 Tablet by mouth daily. 06/16/23 Yes Sravani Ramsay MD ibuprofen (MOTRIN) 200 MG Tablet Take 3 Tabs by mouth every 6 hours as needed for Fever. 12/26/18 Yes Ti Ma, PAPI ipratropium-albuterol (DUO-NEB) 0.5-2.5 (3) MG/3ML Solution INHALE 1 VIAL VIA NEBULIZER FOUR TIMES DAILY 09/18/22 Yes Amaya Kowalski APRN, [place] LORazepam (ATIVAN) 0.5 MG Tablet TAKE 1 TABLET BY MOUTH TWICE A DAY NEEDED FOR ANXIETY 09/11/24 Yes Shravan Burgos PAC Respiratory Therapy Supplies (NEBULIZER) Device Use 4x/day prn. 02/14/19 Yes Amaya Kowalski APRN, [place] Respiratory Therapy Supplies (NEBULIZER/TUBING/MOUTHPIECE) Kit Use 4 times daily prn 02/16/19 Yes Amaya Kowalski APRN, [place] Symbicort 160-4.5 MCG/ACT Aerosol INHALE TWO PUFFS BY MOUTH TWO TIMES A DAY 01/11/23 Yes Amaya Kowalski, EXPANDED FUNCTION DENTAL ASSISTANT, COATING INSPECTOR There are no discontinued medications. I have [...] use: Not Currently Smoking Cessation Counseling Given: no Health Care Maintenance: Health Maintenance Due Topic Date Due TdaP Immunization Never done Pneumococcal Immunization Combined (1 of 2 - PCV) Never done Influenza Immunization (1) 07/30/2024 SARS-COV-2 Immunization () 07/30/2024 Orders Pended: yes The following BPA's have been addressed with the patient today: N/A * Shravan Burgos PAC - 09/20/2024 4:30 PM CDT HPI: Patient is a 44 y.o. female who presents today for Medication Management (Had sleep study ) Patient seeking opinion regarding her recent GI workup. Evaluated with EGD, colonoscopy that showed mild GERD/gastritis. US, CT of abdomen were normal. Has had 2 HIDA scans with most recent one suggesting biliary hyperkinesia. Has not heard back from general surgeon with recommendations yet. Continues with abdominal discomfort and bloating. Having trouble still with sleep. Recent sleep study did not seem to indicate sleep apnea. Has not taken anything yet to help with sleep. Requesting refills of fenofibrate and albuterol Health Maintenance: Health Maintenance Due Topic Date Due TdaP Immunization Never done Pneumococcal Immunization Combined (1 of 2 - PCV) Never done SARS-COV-2 Immunization ( season) 2024 Medications: Current Outpatient Medications Medication Sig Dispense Refill albuterol 108 (90 Base) MCG/ACT Aerosol Solution take 1-2 Puffs by inhalation every 6 hours as needed for Wheezing or Cough. 18 g 0 famotidine (PEPCID) 20 MG Tablet Take 1 Tablet by mouth 2 times daily. 180 Tablet 1 fenofibrate 160 MG Tablet Take 1 Tablet by mouth daily. 90 Tablet 3 ibuprofen (MOTRIN) 200 MG Tablet Take 3 Tabs by mouth every 6 hours as needed for Fever. 20 Tab 0 ipratropium-albuterol (DUO-NEB) 0.5-2.5 (3) MG/3ML Solution 3 mL by Nebulization route 4 times daily. 360 mL 1 LORazepam (ATIVAN) 0.5 MG Tablet TAKE 1 TABLET BY MOUTH TWICE A DAY NEEDED FOR ANXIETY 60 Tablet0 Respiratory Therapy Supplies (NEBULIZER) Device Use 4x/day prn. 1 Each 0 Respiratory Therapy Supplies (NEBULIZER/TUBING/MOUTHPIECE) Kit Use 4 times daily prn 1 Each 0 No current facility-administered medications for this visit. ROS Fourteen point review of systems negative except as documented in HPI. Vitals: 09/20/24 1612 BP: 110/70 Pulse: 75 Resp: 18 Temp: 97.8 ??F (36.6 ??C) TempSrc: Temporal SpO2: 99% Weight: 145 lb (65.8 kg) Body mass index is 26.52 kg/m??. Physical Exam Vitals and nursing note reviewed. Constitutional: General: She is not in acute distress. Appearance: Normal appearance. Abdominal: General: Abdomen is flat. Bowel sounds are normal. There is no distension. Palpations: Abdomen is soft. There is no mass. Tenderness: There is no abdominal tenderness. There is no right CVA tenderness, left CVA tenderness, guarding or rebound. Neurological: Mental Status: She is alert. Past, family, surgical, and social history reviewed and updated in the chart. Assessment/Plan: Diagnoses and all orders for this visit: Biliary dyskinesia - famotidine (PEPCID) 20 MG Tablet; Take 1 Tablet by mouth 2 times daily. Hypertriglyceridemia - fenofibrate 160 MG Tablet; Take 1 Tablet by mouth daily. Insomnia, unspecified type Mild persistent asthma with exacerbation - albuterol 108 (90 Base) MCG/ACT Aerosol Solution; take 1-2 Puffs by inhalation every 6 hours as needed for Wheezing or Cough. - ipratropium-albuterol (DUO-NEB) 0.5-2.5 (3) MG/3ML Solution; 3 mL by Nebulization route 4 times daily. Patient Instructions Symptoms and imaging seem to suggest symptoms related to gallbladder. Advised close follow up with surgeon. May consider cholecystectomy. Refilled fenofibrate and albuterol. Start melatonin for sleep. May consider hydroxyzine if no improvement. Follow up in 6 months with labs prior to appt. Take all medications as prescribed. Please continue with a balanced lifestyle of exercise and healthy eating. If any question, please call. Thanks for coming in today! Patient verbalizes understanding and agrees with plan of care as noted above. New medication discussed with patient and family, including action of medication, potential side effects, interactions, and consequences for not taking it. Patient states understanding of new medication instructions. An After Visit Summary with personalized patient education was printed and given to the patient. Documentation for this visit on 09/20/24 was completed using a template. I have seen and examined the patient. Everything documented was personally performed at this visit with the necessary additions, deletions and changes made as appropriate. documented in this encounter Plan of Treatment Upcoming Encounters Date Type Department Care Team (Late st Contact Info) Description 03/21/2025 4:30 PM CDT Office Visit [facility] - Primary Care - [place] [address] [place] [address] Shravan Burgos PAC [address] [place] [phone] documented as of this encounter Goals Goal [...] a change Department associated with goal: [facility] Steps to achieve [...] Behavioral Health On track(2019 9:50 AM CDT) Eloise Mix [facility] Note: Irma will engage in a plan of action to improve emotional and mental wellbeing. Goal Reviewed with: patient Readiness to change: Not yet ready to make a change Department associated with goal: [facility] Steps to achieve [...] as of this encounter Visit Diagnoses Diagnosis Biliary dyskinesia- Primary Other specified disorder of gallbladder Hypertriglyceridemia Pure hyperglyceridemia Insomnia, unspecified type Mild persistent asthma with exacerbation Unspecified asthma, with exacerbation documented in this encounter Additional Health Concerns Assessment Noted Time PHQ-9 Depression Total Score: 0 12/31/19 24 2:09 PM TOBACCO ROLLER documented as of this encounter Care Teams Advertising Copy Writer Relationship Specialty Start Date End Date Shravan Burgos, PAPI [address] [place] [address] PCP - General Physician Lance Crewmember/Mlrs Sergeant 12/31/23 Arnold Roberts MD [address] [place] [phone] Consulting Physician Pulmonary Disease 07/26/23 documented as of this encounter
--- OUTSIDE RECORDS SUMMARY | 2024-11-30 17:07 | XMS_ITS | Encounter Summary ---
Author Organization [facility] Address [address] [place] [address] Phone Care Team Providers Care Program Evaluator Name Role Phone Arnold Roberts MD Unavailable Shravan Burgos Primary Care Provider Reason for Visit * Reason Onset Date Comments Medication Management 09/21/2024 Encounter Details Date Type Department Care Team (Late st Contact Info) Description 09/21/2024 Telephone [facility] - Primary Care - [place] [address] [place] [address] Shravan Burgos PAC [address] [place] [address] Medication Management Social History Tobacco Use Types Packs/Day Years Used Date Smoking Tobacco: Some Days Cigarettes Smokeless Tobacco: Never Comments:Pt has multiple day s in a row she abstains. Alcohol Use Standard Drinks/Week Comments Yes 5 (1 standard drink = 0.6 oz pur e alcohol) socially [facility] Utilities Answer Date Recorded In the past 12 months has [employer], gas, oil, or water company threatened to [...] declined 12/31/2023 How often do you attend gnosticist or lutheran serv ices? Patient declined 12/31/2023 Do you belong to any clubs o r organizations such as gnosticist groups, unions, fraternal or athletic groups, or [...] Total Score - Questions 1-9 0 12/2023 [facility]at [facility] - Occupational Stress [...] place to sleep or slept in a senior care (including now)? No 12/31/2023 Education Answer Date [...] encounter Miscellaneous Notes * Telephone Encounter - Sarah Colin RN - 09/21/2024 9:58 AM CDT Situation: patient returning call Background: See below Assessment: NA Recommendation: Informed patient of message below and patient verbalized understanding. * Telephone Encounter - Demar Desouza RN - 09/21/2024 8:52 AM CDT Attempted to contact Irma. No answer, left message to call back. * Telephone Encounter - Shravan Burgos PAC - 09/21/2024 8:43 AM CDT If insurance won't cover this, I'd encourage her to purchase this OTC. * Telephone Encounter - Demar Desouza RN - 09/21/2024 8:37 AM CDT Received fax from patient's pharmacy regarding famotidine that states: alternative requested documented in this encounter Plan of Treatment Upcoming Encounters Date Type Department Care Team (Late st Contact Info) Description 03/21/2025 4:30 PM CDT Office Visit [facility] - Primary Care - [place] [address] [place] [address] Shravan Burgos, PAPI [address] [place] [address] documented as of this encounter Goals [...] making a change Department associated with goal: [facility] Steps to [...] make a change Department associated with goal: [facility] Steps to [...] Total Score: 0 12/31/19 24 2:09 PM CLOTH INSPECTOR documented as of this encounter Care Teams Program Evaluator Relationship Specialty Start Date End Date Shravan Burgos, PAC [address] [place] [phone] PCP - General Physician Data Warehousing Architect 12/31/23 Arnold Roberts MD [address] [place] [address] Consulting Physician Pulmonary Disease 07/26/23 documented as of this encounter
--- OUTSIDE RECORDS SUMMARY | 2024-11-30 17:07 | XMS_ITS | Encounter Summary ---
Author Organization [employer] Care Team Providers Care Foundation Relations Manager Name Role Phone Arnold Roberts MD Unavailable Shravan Burgos PAC Primary Care Provider [phone] Encounter Details Date Type Department Care Team (Latest Contact Info) Description 09/20/2024 Travel Social History Tobacco Use Types Packs/Day [...] How often do you attend tenriism or protestant serv ices? Patient declined 12/31/2023 Do you [...] [facility] Health - Occupational Stress [...] place to sleep or slept in a detention (including now)? No 12/31/2023 Education Answer Date [...] Description 03/21/2025 4:30 PM CDT Office Visit [facility] - Primary Care - [place] [address] [place] [address] Shravan Burgos PAC [address] [place] [address] documented as of this encounter Goals [...] change Department associated with goal: [facility] Steps to achieve goal: [...] change Department associated with goal: [facility] Steps to achieve goal: [...] Total Score: 0 12/31/19 24 2:09 PM JEWEL STRINGER documented as of this encounter Care Teams Foundation Relations Manager Relationship Specialty Start Date End Date Shravan Burgos, [facility] [address] [place] [address] PCP - General Physician Book Repairer 12/31/23 Arnold Roberts MD [address] [place] [address] Consulting Physician Pulmonary Disease 07/26/23 documented as of this encounter
--- OUTSIDE RECORDS SUMMARY | 2024-11-30 17:08 | XMS_ITS | Encounter Summary ---
Author Organization [facility] Address [address] [place] [address] Phone Care Team Providers Care Activities Coordinator Name Role Phone Arnold Roberts MD Unavailable Shravan Burgos Primary Care Provider Reason for Visit * Reason Comments Medication Refill Encounter Details Date Type Department Care Team (Late st Contact Info) Description 08/05/2024 Refill [facility] - Primary Care - [place] [address] [place] [address] Shravan Burgos PAC [address] [place] [address] Medication Refill Social History Tobacco Use Types Packs/Day Years Used Date Smoking Tobacco: Some Days Cigarettes Smokeless Tobacco: Never Comments:Pt has multiple day s in a row she abstains. Alcohol Use Standard Drinks/Week Comments Yes 5 (1 standard drink = 0.6 oz pur e alcohol) socially [facility] Utilities Answer Date Recorded In the past 12 months has [employer], gas, oil, or water company threatened to [...] declined 12/31/2023 How often do you attend scientologist or latter day serv ices? Patient declined 12/31/2023 Do you belong to any clubs o r organizations such as scientologist groups, unions, fraternal or athletic groups, or [...] - Questions 1-9 0 12/2023 [facility] of Occupat ional [facility] - Occupational Stress Questionnaire Answer Date [...] place to sleep or slept in a prison (including now)? No 12/31/2023 Education Answer Date [...] Telephone Encounter - Shravan Burgos PAC - 08/07/2024 11:00 AM CDT Refill approved. * Telephone Encounter - Mohini Aguirre RN - 08/07/2024 10:10 AM CDT Medication failed the protocol, provider to review and approve the medication order if appropriate. Requested Prescriptions Pending Prescriptions Disp Refills LORazepam (ATIVAN) 0.5 MG Tablet [Pharmacy Med Name: LORAZEPAM 0.5 MG TABLET] 60 Tablet 0 Sig: TAKE 1 TABLET BY MOUTH TWICE A DAY NEEDED FOR ANXIETY Not Delegated - Benzodiazepines Protocol Failed - 08/05/2024 11:16 PM Failed - This refill cannot be delegated Passed - Visit with relevant provider in past 12 months or upcoming 90 days Recent Visits Date Type Provider Dept 12/31/23 Office Visit Shravan Burgos PAC [facility] 08/25/23 Office Visit Fiorella Dhaliwal, HUMAN RESOURCES FILE CLERK, AUTOMOTIVE PAINT TECHNICIAN [facility] Showing recent visits within past 365 days and meeting all other requirements Future Appointments No visits were found meeting these conditions. Showing future appointments within next 90 days and meeting all other requirements documented in this encounter Plan of Treatment Upcoming Encounters Date Type Department Care Team (Late st Contact Info) Description 03/21/2025 4:30 PM CDT Office Visit [facility] - Primary Care - [place] [address] [place] [address] Shravan Burgos PAC [address] [place] [address] documented as of this encounter [...] making a change Department associated with goal: [facility] Steps to achieve [...] make a change Department associated with goal: [facility] Steps to achieve [...] Total Score: 0 12/31/19 24 2:09 PM BIOINFORMATICS ANALYST documented as of this encounter Care Teams Activities Coordinator Relationship Specialty Start Date End Date Shravan Burgos, PAPI [address] [place] [phone] PCP - General Physician Shingles Roofer 12/31/23 Arnold Roberts MD [address] [place] [phone] Consulting Physician Pulmonary Disease 07/26/23 documented as of this encounter
--- OUTSIDE RECORDS SUMMARY | 2024-11-30 17:08 | XMS_ITS | Encounter Summary ---
Author Organization [facility] Address [address] [facility] [place] [address] Phone Care Team Providers Care Survey Party Chief Name Role Phone Arnold Roberts MD Unavailable Shravan Burgos Primary Care Provider Reason for Visit * Reason Comments Medication Refill Encounter Details Date Type Department Care Team (Late st Contact Info) Description 07/03/2024 Refill [facility] - Primary Care - [place] [address] [place] [address] Shravan Burgos PAC [address] [place] [address] Medication Refill Social History Tobacco Use Types Packs/Day Years Used Date Smoking Tobacco: Some Days Cigarettes Smokeless Tobacco: Never Comments:Pt has multiple day s in a row she abstains. Alcohol Use Standard Drinks/Week Comments Yes 5 (1 standard drink = 0.6 oz pur e alcohol) socially [facility] Utilities Answer Date Recorded In the past 12 months has [employer], gas, oil, or water company threatened to [...] declined 12/31/2023 How often do you attend lutheran or confucianist serv ices? Patient declined 12/31/2023 Do you belong to any clubs o r organizations such as lutheran groups, unions, fraternal or athletic groups, or [...] Total Score - Questions 1-9 0 12/2023 [facility] of Occupat ional [facility] - Occupational Stress Questionnaire Answer [...] Telephone Encounter - Shravan Burgos PAC - 07/03/2024 12:45 PM CDT Refill approved. * Telephone Encounter - Demar Desouza RN - 07/03/2024 10:53 AM CDT Medication failed the protocol, provider to review and approve the medication order if appropriate. Requested Prescriptions Pending Prescriptions Disp Refills LORazepam (ATIVAN) 0.5 MG Tablet [Pharmacy Med Name: LORAZEPAM 0.5 MG TABLET] 60 Tablet 0 Sig: TAKE 1 TABLET BY MOUTH TWICE A DAY NEEDED FOR ANXIETY Not Delegated - Benzodiazepines Protocol Failed - 07/03/2024 10:47 AM Failed - This refill cannot be delegated Passed - Visit with relevant provider in past 12 months or upcoming 90 days Recent Visits Date Type Provider Dept 12/31/23 Office Visit Shravan Burgos PAC [facility] 08/25/23 Office Visit Fiorella Dhaliwal APRN, NURSES EDUCATOR [facility] Showing recent visits within past 365 days and meeting all other requirements Future Appointments No visits were found meeting these conditions. Showing future appointments within next 90 days and meeting all other requirements documented in this encounter Plan of Treatment Upcoming Encounters Date Type Department Care Team (Late st Contact Info) Description 03/21/2025 4:30 PM CDT Office Visit [facility] - Primary Care - [place] [address] [place] [phone] Shravan Burgos PAC [address] [place] [address] documented as of this encounter [...] Total Score: 0 12/31/19 24 2:09 PM HEADLIGHT ADJUSTER documented as of this encounter Care Teams Survey Party Chief Relationship Specialty Start Date End Date Shravan Burgos, [facility] [address] [place] [address] PCP - General Physician Flavor Tank Tender 12/31/23 Arnold Roberts MD [address] [place] [phone] Consulting Physician Pulmonary Disease 07/26/23 documented as of this encounter
--- OUTSIDE RECORDS SUMMARY | 2024-11-30 17:08 | XMS_ITS | Encounter Summary ---
Author Organization [facility] Address [address] [facility] [place] [address] Phone Care Team Providers Care Departmental Secretary Name Role Phone Arnold Roberts MD Unavailable Shravan Burgos Primary Care Provider Reason for Visit * Reason Comments Medication Refill Encounter Details Date Type Department Care Team (Late st Contact Info) Description 09/09/[address] [facility] - Primary Care - [place] [address] [place] [address] Shravan Burgos PAC [address] [place] [address] Medication Refill Social History Tobacco Use Types Packs/Day Years Used Date Smoking Tobacco: Some Days Cigarettes Smokeless Tobacco: Never Comments:Pt has multiple day s in a row she abstains. Alcohol Use Standard Drinks/Week Comments Yes 5 (1 standard drink = 0.6 oz pur e alcohol) socially [facility] Utilities Answer Date Recorded In the past 12 months has [employer], gas, oil, or water company threatened to [...] How often do you attend tenriism or pentecostal serv ices? Patient declined 12/31/2023 Do you [...] 12/2023 [facility] of Occupat ional [facility] - Occupational Stress Questionnaire Answer Date [...] encounter Miscellaneous Notes * Telephone Encounter - Melonie Herrera CMA - 09/11/2024 4:10 PM CDT Attempted to notify Irma Seymour. No answer, left message to call back and schedule follow up * Telephone Encounter - Mohini Aguirre RN - 09/11/2024 2:40 PM CDT Routing to [place] to contact patient. * Telephone Encounter - Shravan Burgos PAC - 09/11/2024 2:33 PM CDT Rx approved, but patient due to routine in office visit. Please encourage her to schedule EDITH. * Telephone Encounter - Demar Desouza RN - 09/11/2024 9:22 AM CDT Medication failed the protocol, provider to review and approve the medication order if appropriate. Requested Prescriptions Pending Prescriptions Disp Refills LORazepam (ATIVAN) 0.5 MG Tablet [Pharmacy Med Name: LORAZEPAM 0.5 MG TABLET] 60 Tablet 0 Sig: TAKE 1 TABLET BY MOUTH TWICE A DAY NEEDED FOR ANXIETY Not Delegated - Benzodiazepines Protocol Failed - 09/09/2024 11:24 AM Failed - This refill cannot be delegated Passed - Visit with relevant provider in past 12 months or upcoming 90 days Recent Visits Date Type Provider Dept 12/31/23 Office Visit Shravan Burgos PAC [facility] Showing recent visits within past 365 days and meeting all other requirements Future Appointments No visits were found meeting these conditions. Showing future appointments within next 90 days and meeting all other requirements documented in this encounter Plan of Treatment Upcoming Encounters Date Type Department Care Team (Late st Contact Info) Description 03/21/2025 4:30 PM CDT Office Visit [facility] - Primary Care - [place] [address] [place] [phone] Shravan Burgos PAC [address] [place] [address] documented as of this encounter Goals Goal Patient Goal Type Associated Problems Recent Progress Patient-Stated? Author Behavioral Health Behavioral Health On track(2019 9:50 AM CDT) Yes Eloise Jenkins, [facility] Note: Irma reported her goal for psychotherapy is to help me be able to deal with things in the present and in her past that are contributing to low and anxious mood. Goal Reviewed with: patient Readiness to change: Thinking about making a change Department associated with goal: [facility] Steps to achieve [...] a change Department associated with goal: [facility] Steps to achieve [...] Total Score: 0 12/31/19 24 2:09 PM [employer] documented as of this encounter Care Teams Departmental Secretary Relationship Specialty Start Date End Date Shravan Burgos PAC [address] [place] [address] PCP - General Physician Rippler 12/31/23 Arnold Roberts MD [address] [place] [address] Consulting Physician Pulmonary Disease 07/26/23 documented as of this encounter
--- OUTSIDE RECORDS SUMMARY | 2024-11-30 17:08 | XMS_ITS | Encounter Summary ---
Author Organization [facility] Address [address] [facility] [place] [address] Phone Care Team Providers Care Insurance Sales Associate Name Role Phone Arnold Roberts MD Unavailable Shravan Burgos Primary Care Provider [phone] Reason for Visit * Reason Comments Medication Refill Encounter Details Date Type Department Care Team (Late st Contact Info) Description 05/30/2024 Refill [facility] - Primary Care - [place] [address] [place] [address] Shravan Burgos PAC [address] [place] [address] Medication Refill Social History Tobacco Use Types Packs/Day Years Used Date Smoking Tobacco: Some Days Cigarettes Smokeless Tobacco: Never Comments:Pt has multiple day s in a row she abstains. Alcohol Use Standard Drinks/Week Comments Yes 5 (1 standard drink = 0.6 oz pur e alcohol) socially [facility] Utilities Answer Date Recorded In the past 12 months has [employer], gas, oil, or water company threatened to [...] declined 12/31/2023 How often do you attend nondenominational or nondenominational serv ices? Patient declined 12/31/2023 Do you belong to any clubs o r organizations such as nondenominational groups, unions, fraternal or athletic groups, or [...] Total Score - Questions 1-9 0 12/2023 [facility] of Occupat ional [facility] - Occupational Stress Questionnaire Answer Date [...] place to sleep or slept in a correction (including now)? No 12/31/2023 Education Answer Date [...] Telephone Encounter - Shravan Burgos PAC - 05/31/2024 9:06 AM CDT Refill approved. * Telephone Encounter - Demar Desouza RN - 05/30/2024 1:08 PM CDT Medication failed the protocol, provider to review and approve the medication order if appropriate. Requested Prescriptions Pending Prescriptions Disp Refills LORazepam (ATIVAN) 0.5 MG Tablet [Pharmacy Med Name: LORAZEPAM 0.5 MG TABLET] 60 Tablet 0 Sig: TAKE 1 TABLET BY MOUTH TWICE A DAY NEEDED FOR ANXIETY Not Delegated - Benzodiazepines Protocol Failed - 05/30/2024 12:11 PM Failed - This refill cannot be delegated Passed - Visit with relevant provider in past 12 months or upcoming 90 days Recent Visits Date Type Provider Dept 12/31/23 Office Visit Shravan Burgos PAC [facility] 08/25/23 Office Visit Fiorella Dhaliwal, INSTRUMENTATION SUPERVISOR, BLUE CRABBER [facility] Showing recent visits within past 365 days and meeting all other requirements Future Appointments Date Type Provider Dept 06/30/24 Appointment Shravan Burgos PAC [facility] Showing future appointments within next 90 days and meeting all other requirements documented in this encounter Plan of Treatment Upcoming Encounters Date Type Department Care Team (Late st Contact Info) Description 03/21/2025 4:30 PM CDT Office Visit [facility] - Primary Care - [place] [address] [place] [address] Shravan Burgos PAC [address] [place] [address] documented as of this encounter [...] making a change Department associated with goal: [facility] SERVICES Steps [...] make a change Department associated with goal: [facility] Steps [...] Total Score: 0 12/31/19 24 2:09 PM PHOTOGRAPHY INSTRUCTOR documented as of this encounter Care Teams Insurance Sales Associate Relationship Specialty Start Date End Date Shravan Burgos, PAC [address] [place] [address] PCP - General Physician C4 Planner 12/31/23 Arnold Roberts MD [address] [place] [address] Consulting Physician Pulmonary Disease 07/26/23 documented as of this encounter
--- OUTSIDE RECORDS SUMMARY | 2024-11-30 17:08 | XMS_ITS | Encounter Summary ---
Author Organization [facility] Address [address] [place] [address] Phone Care Team Providers Care Superintendent Car Construction Name Role Phone Arnold Roberts MD Unavailable Shravan Burgos PAC Primary Care Provider [phone] Reason for Visit * Radiology Services (Routine) - Closed Specialty Diagnoses / Procedures Referred By Claudio remy Referred To Contact Radiology Diagnoses Visit for screening mammogram Procedures NU SCREENING BILATERAL DIGITAL W CAD W WILBERT NU SCREENING BILATERAL DIGITAL W CAD Veronika Orantes APRN, TOOL AND CUTTER GRINDER [address] [place] [address] Phone: tel: fax: Referral ID Status Reason Start Date Expiration Date Visits Re quested Visits Authorized [id number] Closed 05/25/2024 1 1 Encounter Details Date Type Department Care Team (Latest Contact Info) Description 09/11/2024 3:56 PM CDT - 09/11/2024 11:59 PM CDT Hospital Encounter [facility] Mammography [address] [place] [phone] Veronika Orantes APRN, TOOL AND CUTTER GRINDER [address] [place] [address] Discharge Disposition: Discharged to home or Selfcare Social History Tobacco Use Types Packs/Day Years Used Date Smoking Tobacco: Some Days Cigarettes Smokeless Tobacco: Never Comments:Pt has multiple day s in a row she abstains. Alcohol Use Standard Drinks/Week Comments Yes 5 (1 standard drink = 0.6 oz pur e alcohol) socially [facility] Utilities Answer Date Recorded In [...] declined 12/31/2023 How often do you attend rastafari or judaism serv ices? Patient declined 12/31/2023 Do you belong to any clubs o r organizations such as rastafari groups, unions, fraternal or athletic groups, or [...] Total Score - Questions 1-9 0 12/2023 [facility] of Occupat ional Health - Occupational Stress [...] on file documented as of this encounter Medications at Time of Discharge ibuprofen (MOTRIN) 200 MG Tablet Take 3 Tabs by mouth every 6 hours as needed for Fever. 20 Tab 12/26/2018 Respiratory Therapy Supplies (NEBULIZER) Device Use 4x/day prn. 1 Each 02/14/2019 Respiratory Therapy Supplies (NEBULIZER/TUBIN G/MOUTHPIECE) Kit Use 4 times daily prn 1 Each 02/16/2019 albuterol 108 (90 Base) MCG/ACT Aerosol SolutionIndicati ons:Tobacco use disorder take 1-2 Puffs by inhalation every 6 hours as needed for Wheezing or Cough. 18 g 12/31/2023 4 fenofibrate 160 MG TabletIndication s:Hypertriglycer idemia Take 1 Tablet by mouth daily. 90 Tablet 3 06/16/2023 4 ipratropium-albu terol (DUO-NEB) 0.5-2.5 (3) MG/3ML Solution INHALE 1 VIAL VIA NEBULIZER FOUR TIMES DAILY 360 mL 11 09/18/2022 4 LORazepam (ATIVAN) 0.5 MG TabletIndication s:Anxiety TAKE 1 TABLET BY MOUTH TWICE A DAY NEEDED FOR ANXIETY 60 Tablet 09/11/2024 4 Symbicort 160-4.5 MCG/ACT AerosolIndicatio ns:Bronchitis INHALE TWO PUFFS BY MOUTH TWO TIMES A DAY 10.2 g 1 01/11/2023 4 documented as of this encounter Plan of Treatment Upcoming Encounters Date Type Department Care Team (Late st Contact Info) Description 03/21/2025 4:30 PM CDT Office Visit [facility] - Primary Care - [place] [address] [place] [address] Shravan Burgos PAC [address] [place] [address] documented as of this encounter Goals Goal Patient Goal Type Associated Problems Recent Progress Patient-Stated? Author Behavioral Health Behavioral Health On track(2019 9:50 AM CDT) Yes Eloise Jenkins, [facility] Note: Irma reported her goal for psychotherapy [...] On track(2019 9:50 AM CDT) Eloise Mix DIRECTOR STAGE Note: Irma will engage in a plan [...] well being. documented as of this encounter Procedures Procedure Name Priority Date/Time Associated Diagnosis Comments NU SCREENING BILATERAL DIGITAL W CAD W WILBERT Routine 09/11/2024 4:29 PM CDT Visit for screening mammogram documented in this encounter Results * NU SCREENING BILATERAL DIGITAL W CAD [...] exams dated: ??08/14/2022, 11/04/2020, 09/13/2020, and 03/14/2019 [facility]. ?? BREAST TISSUE:The breasts are heterogeneously dense, [...] Mounika Song M.D. ? ll/penrad:09/11/2024 19:49:19 ?? Assembler Dry Cell And Battery(s): Dhara ??RT George(R)(M), [facility] letter sent: Normal Exam ?? Reading location: [...] exams dated: 08/14/2022, 11/04/2020, 09/13/2020, and 03/14/2019 [facility]. BREAST TISSUE:The breasts are heterogeneously dense, which [...] exam. Electronically signed by: Mounika vidales/jenna:09/11/2024 19:49:19 Assembler Dry Cell And Battery(s): RT Raegan(R)(M), [facility] letter sent: Normal Exam Reading location: [place] Mammogram BI-RADS: Category 1: Negative us Veronika Orantes SCHOOL CROSSING GUARD SUPERVISOR, TOOL AND CUTTER GRINDER IMG MAMMO ORDERABLES Kaylin l Result documented in this encounter Visit Diagnoses Diagnosis Visit for screening mammogram Other screening mammogram documented in this encounter Additional Health Concerns Assessment Noted Time PHQ-9 Depression Total Score: 0 12/31/19 24 2:09 PM NEWCOMER HOSTESS documented as of this encounter Care Teams Superintendent Car Construction Relationship Specialty Start Date End Date Shravan Burgos, PAC [address] [place] [address] PCP - General Physician Package Sealer Machine 12/31/23 Arnold Roberts MD [address] [place] [phone] Consulting Physician Pulmonary Disease 07/26/23 documented as of this encounter
--- OUTSIDE RECORDS SUMMARY | 2024-11-30 17:08 | XMS_ITS | Encounter Summary ---
Author Organization [facility] Address [address] [facility] [place] [address] Phone Care Team Providers Care Shop Director Name Role Phone Arnold Roberts MD Unavailable Shravan Burgos Primary Care Provider [phone] Reason for Visit * Reason Comments Medication Refill Encounter Details Date Type Department Care Team (Late st Contact Info) Description 04/30/2024 Refill [facility] - Primary Care - [place] [address] [place] [address] Shravan Burgos PAC [address] [place] [address] Medication Refill Social History Tobacco Use Types Packs/Day Years Used Date Smoking Tobacco: Some Days Cigarettes Smokeless Tobacco: Never Comments:Pt has multiple day s in a row she abstains. Alcohol Use Standard Drinks/Week Comments Yes 5 (1 standard drink = 0.6 oz pur e alcohol) socially [facility] Utilities Answer Date Recorded In the past 12 months has [employer], gas, oil, or water company threatened to [...] declined 12/31/2023 How often do you attend mormon or hindu serv ices? Patient declined 12/31/2023 Do you belong to any clubs o r organizations such as mormon groups, unions, fraternal or athletic groups, or [...] Total Score - Questions 1-9 0 12/2023 [facility] of Occupat ional [facility] - Occupational Stress Questionnaire Answer Date [...] encounter Miscellaneous Notes * Telephone Encounter - Demar Desouza RN - 05/01/2024 8:42 AM CDT Medication failed the protocol, provider to review and approve the medication order if appropriate. Requested Prescriptions Pending Prescriptions Disp Refills LORazepam (ATIVAN) 0.5 MG Tablet [Pharmacy Med Name: LORAZEPAM 0.5 MG TABLET] 60 Tablet 0 Sig: TAKE 1 TABLET BY MOUTH TWICE A DAY NEEDED FOR ANXIETY Not Delegated - Benzodiazepines Protocol Failed - 04/30/2024 2:54 PM Failed - This refill cannot be delegated Passed - Visit with relevant provider in past 12 months or upcoming 90 days Recent Visits Date Type Provider Dept 12/31/23 Office Visit Shravan Burgos, PAPI [facility] 08/25/23 Office Visit Fiorella Dhaliwal APRN, WALL AND FLOOR TILER [facility] Showing recent visits within past 365 days and meeting all other requirements Future Appointments Date Type Provider Dept 06/30/24 Appointment Shravan Burgos, PAPI [facility] Showing future appointments within next 90 days and meeting all other requirements documented in this encounter Plan of Treatment Upcoming Encounters Date Type Department Care Team (Late st Contact Info) Description 03/21/2025 4:30 PM CDT Office Visit [facility] - Primary Care - [place] [address] [place] [address] Shravan Burgos PAC [address] [place] [address] documented as of this encounter Goals Goal Patient Goal Type Associated Problems Recent Progress Patient-Stated? Author [facility] Behavioral Health On track(2019 9:50 AM CDT) Yes Eloise Jenkins LCPC Note: Irma reported her goal for psychotherapy is to help me be able to deal with things in the present and in her past that are contributing to low and anxious mood. Goal Reviewed with: patient Readiness to change: Thinking about making a change Department associated with goal: [facility] BEHAVIORAL HEALTH SERVICES Steps to [...] and past) that trigger mood concerns. [facility] Behavioral Health On track(2019 9:50 AM CDT) No Eloise Jenkins LCPC Note: Irma will engage in a plan of action to improve emotional and mental wellbeing. Goal Reviewed with: patient Readiness to change: Not yet ready to make a change Department associated with goal: [facility] BEHAVIORAL HEALTH SERVICES Steps to [...] Total Score: 0 12/31/19 24 2:09 PM HOUSECLEANER documented as of this encounter Care Teams Shop Director Relationship Specialty Start Date End Date Shravan Burgos, PAC [address] [place] [address] PCP - General Physician Carpet Sewing Machine Operator 12/31/23 Arnold Roberts MD [address] [place] [id number] Consulting Physician Pulmonary Disease 07/26/23 documented as of this encounter
--- OUTSIDE RECORDS SUMMARY | 2024-11-30 17:08 | XMS_ITS | Encounter Summary ---
Author Organization [facility] Address [address] [facility] [place] [address] Phone Care Team Providers Care General Teller Name Role Phone Arnold Roberts MD Unavailable Shravan Burgos Primary Care Provider [phone] Reason for Visit * Reason Comments Medication Refill Encounter Details Date Type Department Care Team (Late st Contact Info) Description 01/26/2024 Refill [facility] - Primary Care - [place] [address] [place] [address] Shravan Burgos PAC [address] [place] [address] Medication Refill Social History Tobacco Use Types Packs/Day Years Used Date Smoking Tobacco: Some Days Cigarettes Smokeless Tobacco: Never Comments:Pt has multiple day s in a row she abstains. Alcohol Use Standard Drinks/Week Comments Yes 5 (1 standard drink = 0.6 oz pur e alcohol) socially [facility] Utilities Answer Date Recorded In the past 12 months has [employer], gas, oil, or water company threatened to [...] declined 12/31/2023 How often do you attend uatsdin or religion serv ices? Patient declined 12/31/2023 Do you belong to any clubs o r organizations such as uatsdin groups, unions, fraternal or athletic groups, or [...] Total Score - Questions 1-9 0 12/2023 [facility] of Occupat ional [facility] - Occupational [...] encounter Miscellaneous Notes * Telephone Encounter - Latia Garcia, RN - 01/27/2024 8:44 AM CST Medication failed the protocol, provider to review and approve the medication order if appropriate. Requested Prescriptions Pending Prescriptions Disp Refills LORazepam (ATIVAN) 0.5 MG Tablet [Pharmacy Med Name: LORAZEPAM 0.5 MG TABLET] 60 Tablet 0 Sig: TAKE 1 TABLET BY MOUTH TWICE A DAY NEEDED FOR ANXIETY Not Delegated - Benzodiazepines Protocol Failed - 01/26/2024 5:37 PM Failed - This refill cannot be delegated Passed - Visit with relevant provider in past 12 months or upcoming 90 days Recent Visits Date Type Provider Dept 12/31/23 Office Visit Shravan Burgos, PAPI [facility] 08/25/23 Office Visit Fiorella Dhaliwal APRN, BIOLOGIST AIDE [facility] 04/23/23 Office Visit Sravani Ramsay MD [facility] Showing recent visits within past 365 days and meeting all other requirements Future Appointments No visits were found meeting these conditions. Showing future appointments within next 90 days and meeting all other requirements PUSHER documented in this encounter Plan of Treatment Upcoming Encounters Date Type Department Care Team (Late st Contact Info) Description 03/21/2025 4:30 PM CDT Office Visit [facility] - Primary Care - [place] [address] [place] [address] Shravan Burgos PAC [address] [place] [address] documented as of this encounter Goals [...] making a change Department associated with goal: [facility]AVIORAL HE[facility] SERVICES Steps to achieve goal: [...] make a change Department associated with goal: [facility]AVIORAL HE[facility] SERVICES Steps to achieve goal: [...] Total Score: 0 12/31/19 24 2:09 PM KILN PUSHER documented as of this encounter Care Teams General Teller Relationship Specialty Start Date End Date Shravan Burgos, PAC [address] [place] [address] PCP - General Physician Ged Instructor 12/31/23 Arnold Roberts MD [address] [place] [address] Consulting Physician Pulmonary Disease 07/26/23 documented as of this encounter
--- OUTSIDE RECORDS SUMMARY | 2024-11-30 17:08 | XMS_ITS | Encounter Summary ---
Author Organization [employer] Care Team Providers Care B2B Outside Sales Representative Name Role Phone Arnold Roberts MD Unavailable Shravan Burgos PAC Primary Care Provider [phone] Encounter Details Date Type Department Care Team (Latest Contact Info) Description 09/11/2024 Travel Social History Tobacco Use Types Packs/Day [...] declined 12/31/2023 How often do you attend bahai or pentecostal serv ices? Patient declined 12/31/2023 Do you belong to any clubs o r organizations such as bahai groups, unions, fraternal or athletic groups, or [...] Total Score - Questions 1-9 0 12/2023 [facility] of Occupat ional Health - Occupational [...] place to sleep or slept in a fci (including now)? No 12/31/2023 Education Answer Date [...] Description 03/21/2025 4:30 PM CDT Office Visit [facility] - Primary Care - [place] [address] [place] [address] Shravan Burgos PAC [address] [place] [address] documented as of this encounter Goals [...] making a change Department associated with goal: [facility] BEHAVIORAL HEALTH SERVICES Steps to achieve [...] make a change Department associated with goal: [facility] BEHAVIORAL HEALTH SERVICES Steps to achieve [...] Total Score: 0 12/31/19 24 2:09 PM EVIDENCE CUSTODIAN documented as of this encounter Care Teams B2B Outside Sales Representative Relationship Specialty Start Date End Date Shravan Burgos, [facility] [address] [place] [address] PCP - General Physician Rockboard Lather 12/31/23 Arnold Roberts MD [address] [place] [address] Consulting Physician Pulmonary Disease 07/26/23 documented as of this encounter
--- OUTSIDE RECORDS SUMMARY | 2024-11-30 17:08 | XMS_ITS | Encounter Summary ---
Author Organization [facility] Address [address] [facility] [place] [address] Phone Care Team Providers Care Pump Mechanic Name Role Phone Arnold Roberts MD Unavailable Shravan Burgos Primary Care Provider Reason for Visit * Reason Comments Medication Refill Encounter Details Date Type Department Care Team (Late st Contact Info) Description 03/30/2024 Refill [facility] - Primary Care - [place] [address] [place] [address] Shravan Burgos PAC [address] [place] [address] Medication Refill Social History Tobacco Use Types Packs/Day Years Used Date Smoking Tobacco: Some Days Cigarettes Smokeless Tobacco: Never Comments:Pt has multiple day s in a row she abstains. Alcohol Use Standard Drinks/Week Comments Yes 5 (1 standard drink = 0.6 oz pur e alcohol) socially [facility] Utilities Answer Date Recorded In the past 12 months has [employer], gas, oil, or water company threatened to [...] declined 12/31/2023 How often do you attend mosque or cheondoism serv ices? Patient declined 12/31/2023 Do you belong to any clubs o r organizations such as mosque groups, unions, fraternal or athletic groups, or [...] Total Score - Questions 1-9 0 12/2023 [facility] of Occupat ional [facility] - Occupational Stress Questionnaire Answer Date [...] place to sleep or slept in a retirement (including now)? No 12/31/2023 Education Answer Date [...] Telephone Encounter - Shravan Burgos PAC - 03/31/2024 4:14 PM CDT UDS cancelled. Refill approved and sent to pharmacy. * Telephone Encounter - Mohini Aguirre RN - 03/31/2024 4:11 PM CDT Okay for refill pending UDS completion. Please have patient get this done lacey. Will send Rx after completion. UDS order placed. Above message from PCP. Attempted to phone patient to relay PCP message. No answer. Voicemail not set up. * Telephone Encounter - Mohini Aguirre RN - 03/31/2024 7:34 AM CDT Medication failed the protocol, provider to review and approve the medication order if appropriate. Requested Prescriptions Pending Prescriptions Disp Refills LORazepam (ATIVAN) 0.5 MG Tablet [Pharmacy Med Name: LORAZEPAM 0.5 MG TABLET] 60 Tablet 0 Sig: TAKE 1 TABLET BY MOUTH 2 TIMES DAILY NEEDED FOR ANXIETY Not Delegated - Benzodiazepines Protocol Failed - 03/30/2024 9:45 PM Failed - This refill cannot be delegated Passed - Visit with relevant provider in past 12 months or upcoming 90 days Recent Visits Date Type Provider Dept 12/31/23 Office Visit Shravan Burgos PAC [facility] 08/25/23 Office Visit Fiorella Dhaliwal APRN, REGULATORY ATTORNEY [facility] 04/23/23 Office Visit Sravani Ramsay MD [facility] Showing recent visits within past 365 days and meeting all other requirements Future Appointments No visits were found meeting these conditions. Showing future appointments within next 90 days and meeting all other requirements * Telephone Encounter - Shravan Burgos PAC - 03/30/2024 9:40 PM CDT Okay for refill pending UDS completion. Please have patient get this done lacey. Will send Rx after completion. UDS order placed. * Telephone Encounter - Demar Desouza RN - 03/30/2024 4:52 PM CDT Medication failed the protocol, provider to review and approve the medication order if appropriate. Requested Prescriptions Pending Prescriptions Disp Refills LORazepam (ATIVAN) 0.5 MG Tablet [Pharmacy Med Name: LORAZEPAM 0.5 MG TABLET] 60 Tablet 0 Sig: TAKE 1 TABLET BY MOUTH 2 TIMES DAILY NEEDED FOR ANXIETY Not Delegated - Benzodiazepines Protocol Failed - 03/30/2024 4:12 PM Failed - This refill cannot be delegated Passed - Visit with relevant provider in past 12 months or upcoming 90 days Recent Visits Date Type Provider Dept 12/31/23 Office Visit Shravan Burgos PAC [facility] 08/25/23 Office Visit Fiorella Dhaliwal APRN, REGULATORY ATTORNEY [facility] 04/23/23 Office Visit Sravani Ramsay MD [facility] Showing recent visits within past 365 days and meeting all other requirements Future Appointments No visits were found meeting these conditions. Showing future appointments within next 90 days and meeting all other requirements documented in this encounter Plan of Treatment Upcoming Encounters Date Type Department Care Team (Late st Contact Info) Description 03/21/2025 4:30 PM CDT Office Visit [facility] - Primary Care - [place] [address] [place] [address] Shravan Burgos PAC [address] [place] [address] documented as of this encounter [...] making a change Department associated with goal: [facility] BEHAVIORAL HEALTH SERVICES Steps to [...] make a change Department associated with goal: [facility]AVIORAL [facility] SERVICES Steps to achieve [...] as of this encounter Visit Diagnoses Diagnosis High risk medication use- Primary Encounter for long-term (current) use of other medications Anxiety Anxiety state, unspecified documented in this encounter Additional Health Concerns Assessment Noted Time PHQ-9 Depression Total Score: 0 12/31/19 24 2:09 PM VETERINARY ASSISTANT documented as of this encounter Care Teams Pump Mechanic Relationship Specialty Start Date End Date Shravan Burgos, PAC [address] [place] [address] PCP - General Physician Director Of Billing 12/31/23 Arnold Roberts MD [address] [place] [address] Consulting Physician Pulmonary Disease 07/26/23 documented as of this encounter
--- OUTSIDE RECORDS SUMMARY | 2024-11-30 17:08 | XMS_ITS | Encounter Summary ---
Author Organization [facility] Address [address] [facility] [address] Phone Care Team Providers Care Metallurgical Engineer Name Role Phone Arnold Roberts MD Unavailable Shravan Burgos Primary Care Provider Reason for Visit * Reason Comments Medication Refill Encounter Details Date Type Department Care Team (Late st Contact Info) Description 03/01/2024 Refill [facility] - Primary Care - [place] [address] [place] [address] Shravan Burgos PAC [address] [place] [address] Medication Refill Social History Tobacco Use Types Packs/Day Years Used Date Smoking Tobacco: Some Days Cigarettes Smokeless Tobacco: Never Comments:Pt has multiple day s in a row she abstains. Alcohol Use Standard Drinks/Week Comments Yes 5 (1 standard drink = 0.6 oz pur e alcohol) socially [facility] Utilities Answer Date Recorded In the past 12 months has [employer], gas, oil, or water company threatened to [...] How often do you attend lutheran or mosque serv ices? Patient declined 12/31/2023 Do you [...] 0 12/2023 [facility] of Occupat ional [facility] - Occupational Stress Questionnaire Answer Date [...] Telephone Encounter - Demar Desouza RN - 03/01/2024 4:15 PM CDT Medication failed the protocol, provider to review and approve the medication order if appropriate. Requested Prescriptions Pending Prescriptions Disp Refills LORazepam (ATIVAN) 0.5 MG Tablet [Pharmacy Med Name: LORAZEPAM 0.5 MG TABLET] 60 Tablet 0 Sig: Take 1 Tablet by mouth 2 times daily as needed for Anxiety. Fill date 01/30/24. Quantity: sixty Not Delegated - Benzodiazepines Protocol Failed - 03/01/2024 4:08 PM Failed - This refill cannot be delegated Passed - Visit with relevant provider in past 12 months or upcoming 90 days Recent Visits Date Type Provider Dept 12/31/23 Office Visit Shravan Burgos PAC [facility] 08/25/23 Office Visit Fiorella Dhaliwal APRN, BOTTLE HOUSE PUMPER [facility] 04/23/23 Office Visit Sravani Ramsay MD [facility] Showing recent visits within past 365 days and meeting all other requirements Future Appointments No visits were found meeting these conditions. Showing future appointments within next 90 days and meeting all other requirements documented in this encounter Plan of Treatment Upcoming Encounters Date Type Department Care Team (Late st Contact Info) Description 03/21/2025 4:30 PM CDT Office Visit [facility] - Primary Care - [place] [address] [place] [address] Shravan Burgos, PAPI [address] [place] [address] documented as of this encounter Goals Goal Patient Goal Type Associated Problems Recent Progress Patient-Stated? Author [facility] Behavioral Health On track(2019 9:50 AM CDT) Yes Eloise Jenkins LCPC Note: Irma reported her goal for psychotherapy is to help me be able to deal with things in the present and in her past that are contributing to low and anxious mood. Goal Reviewed with: patient Readiness to change: Thinking about making a change Department associated with goal: [facility] BEHAVIORAL HEALTH SERVICES Steps to achieve goal: 1. Irma will attend psychotherapy, at minimum twice a month. 2. Irma will identify and explore atleast three incidents/experiences of current stressors, past trauma and family dynamics that contribute to her mood concerns. 3. Irma will identify at least three ways/skills to heal and cope with the experiences (current and past) that trigger mood concerns. Behavioral [facility] Behavioral Health On track(2019 9:50 AM CDT) No Eloise Jenkins LCPC Note: Irma will engage in a plan of action to improve emotional and mental wellbeing. Goal Reviewed with: patient Readiness to change: Not yet ready to make a change Department associated with goal: [facility] BEHAVIORAL HEALTH SERVICES Steps to achieve goal: [...] Total Score: 0 12/31/19 24 2:09 PM MACHINING TECHNICIAN documented as of this encounter Care Teams Metallurgical Engineer Relationship Specialty Start Date End Date Shravan Burgos, [facility] [address] [place] [address] PCP - General Physician Tax Examiner 12/31/23 Arnold Roberts MD [address] [place] [address] Consulting Physician Pulmonary Disease 07/26/23 documented as of this encounter
--- OUTSIDE RECORDS SUMMARY | 2024-11-30 17:08 | XMS_ITS | Encounter Summary ---
Author Organization [facility] Address [address] [place] [address] Phone Care Team Providers Care Workforce Development Vice President Name Role Phone Arnold Roberts MD Unavailable Shravan Burgos Primary Care Provider Reason for Visit * Reason Onset Date Comments Results 01/03/2024 Labs Encounter Details Date Type Department Care Team (Late st Contact Info) Description 01/03/2024 Telephone [facility] - Primary Care - [place] [address] [place] [address] Shravan Burgos, PAPI [address] [place] [address] Results (Labs) Social History Tobacco Use Types Packs/Day Years Used Date Smoking Tobacco: Some Days Cigarettes Smokeless Tobacco: Never Comments:Pt has multiple day s in a row she abstains. Alcohol Use Standard Drinks/Week Comments Yes 5 (1 standard drink = 0.6 oz pur e alcohol) socially [facility] Utilities Answer Date Recorded In the past 12 months has [email or web address], gas, oil, or water company threatened to [...] declined 12/31/2023 How often do you attend pentecostal or mandaeism serv ices? Patient declined 12/31/2023 Do you belong to any clubs o r organizations such as pentecostal groups, unions, fraternal or athletic groups, or [...] Total Score - Questions 1-9 0 12/2023 [facility] of Occupat ional Health - Occupational [...] place to sleep or slept in a skilled nursing (including now)? No 12/31/2023 Education Answer Date [...] Telephone Encounter - Shravan Burgos PAC - 01/03/2024 1:01 PM CST Given onset was just yesterday. Recommend she give it time and monitor for now. Rest, ice, OTC NSAIDs or Tylenol as needed. Follow up if symptoms worsen or do not improve. THERAPIST * Telephone Encounter - Latia Garcia RN - 01/03/2024 11:43 AM CST See [employer] message. THERAPIST * Telephone Encounter - Latia Garcia RN - 01/03/2024 8:32 AM CST [employer] message sent. THERAPIST * Telephone Encounter - Latia Garcia RN - 01/03/2024 8:30 AM CST ----- Message from PAPI Danielle sent at 01/02/2024 4:35 PM PHYS THERAPIST ----- Recent blood work significant only for elevated triglycerides at 366. Please ensure she is remaining compliant with fenofibrate and also encourage her to follow a low fat diet and avoid greasy, friedfoods. Keep follow up as scheduled, but please schedule an appt for labs prior to appt. Lab orders placed. Please make patient aware. THERAPIST documented in this encounter Plan of Treatment Upcoming Encounters Date Type Department Care Team (Late st Contact Info) Description 03/21/2025 4:30 PM CDT Office Visit [facility] - Primary Care - [place] [address] [place] [address] Shravan Burgos PAC [address] [place] [address] documented as of this encounter [...] making a change Department associated with goal: [facility] BEHAVIORAL HEALTH SERVICES Steps to [...] make a change Department associated with goal: [facility] BEHAVIORAL HEALTH SERVICES Steps to [...] Total Score: 0 12/31/19 24 2:09 PM PHYS THERAPIST documented as of this encounter Care Teams Workforce Development Vice President Relationship Specialty Start Date End Date Shravan Burgos, PAC [address] [place] [id number] PCP - General Physician Guest History Clerk 12/31/23 Arnold Roberts MD [address] [place] [phone] Consulting Physician Pulmonary Disease 07/26/23 documented as of this encounter
--- OUTSIDE RECORDS SUMMARY | 2024-11-30 17:08 | XMS_ITS | Encounter Summary ---
Author Organization [facility] Address [address] [place] [address] Phone Care Team Providers Care Automotive Teacher Name Role Phone Arnold Roberts MD Unavailable Shravan Burgos PAC Primary Care Provider [phone] Reason for Visit * Reason Onset Date Comments Referral 04/05/2024 Encounter Details Date Type Department Care Team (Late st Contact Info) Description 04/05/2024 Telephone [facility] [address] [place] [address] Shravan Burgos, PAC [address] [place] [address] Referral Social History Tobacco Use Types Packs/Day Years Used Date Smoking Tobacco: Some Days Cigarettes Smokeless Tobacco: Never Comments:Pt has multiple day s in a row she abstains. Alcohol Use Standard Drinks/Week Comments Yes 5 (1 standard drink = 0.6 oz pur e alcohol) socially [facility] Utilities Answer Date Recorded In the past 12 months has [employer] electric, gas, oil, or water company threatened [...] declined 12/31/2023 How often do you attend alevism or taoist serv ices? Patient declined 12/31/2023 Do you belong to any clubs o r organizations such as alevism groups, unions, fraternal or athletic groups, or [...] 1-9 0 12/2023 [facility] - Occupational Stress Questionnaire Answer Date [...] place to sleep or slept in a snf (including now)? No 12/31/2023 Education Answer Date [...] encounter Miscellaneous Notes * Telephone Encounter - Mohini Aguirre RN - 04/05/2024 10:44 AM CDT Order faxed as requested. * Telephone Encounter - Shravan Burgos PAC - 04/05/2024 10:02 AM CDT Order signed. * Telephone Encounter - Mohini Aguirre RN - 04/05/2024 9:40 AM CDT Phoned Damaso as the referral states it is for an external sleep study. Per Cassie, this is for theinsurance, they need a signed MD order stating sleep study. Order pended for approval. Will need faxed to her at [phone]. * Telephone Encounter - Shravan Burgos PAC - 04/05/2024 9:37 AM CDT Order placed. Please fax to office. * Telephone Encounter - Fox Patten, RN - 04/05/2024 9:17 AM CDT Cassie from [facility] calling. She states that the patient is coming in today but they need the referral order fixed, in order to help her. She states that the original order was for sleep medicine but they need an order for a Home Sleep Study. Please order as appropriate. Office fax number provided by Cassie is [phone]. Cassie also requested office visit notes discussing the need for the sleep study. Office visit notes from 12/31/23 faxed to office. documented in this encounter Plan of Treatment Upcoming Encounters Date Type Department Care Team (Late st Contact Info) Description 03/21/2025 4:30 PM CDT Office Visit [facility] - Primary Care - [place] [address] [place] [address] Shravan Burgos PAC [address] [place] [phone] documented as of this encounter Goals Goal Patient Goal Type Associated Problems Recent Progress Patient-Stated? Author Behavioral Health Behavioral Health On track(2019 9:50 AM CDT) Yes Eloise Jenkins, [facility] Note: Irma reported her goal for psychotherapy is to help me be able to deal with things in the present and in her past that are contributing to low and anxious mood. Goal Reviewed with: patient Readiness to change: Thinking about making a change Department associated with goal: [facility] Steps to [...] Health On track(2019 9:50 AM CDT) Eloise Mix, [facility] Note: Irma will engage in a plan of action to improve emotional and mental wellbeing. Goal Reviewed with: patient Readiness to change: Not yet ready to make a change Department associated with goal: [facility] Steps to [...] as of this encounter Visit Diagnoses Diagnosis Suspected sleep apnea- Primary documented in this encounter Additional Health Concerns Assessment Noted Time PHQ-9 Depression Total Score: 0 12/31/19 24 2:09 PM ENVIRONMENTAL ENGINEERING AIDE documented as of this encounter Care Teams Automotive Teacher Relationship Specialty Start Date End Date Shravan Burgos, PAPI [address] [place] [address] PCP - General Physician Inverter And Clipper 12/31/23 Arnold Roberts MD [address] [place] [address] Consulting Physician Pulmonary Disease 07/26/23 documented as of this encounter
--- OUTSIDE RECORDS SUMMARY | 2024-11-30 17:08 | XMS_ITS | Encounter Summary ---
Author Organization [facility] Address [address] [place] [address] Phone Care Team Providers Care Track Service Person Name Role Phone Arnold Roberts MD Unavailable Shravan Burgos PAC Primary Care Provider Encounter Details Date Type Department Care Team (Late st Contact Info) Description 05/25/2024 [facility]cribe [facility] [address] [place] [address] Veronika Orantes APRN, PIECE MAKER [address] [facility] [place] [address] [place] [address] Visit for screening mammogram (Primary Dx) Social History Tobacco Use Types Packs/Day Years Used Date Smoking Tobacco: Some Days Cigarettes Smokeless Tobacco: Never Comments:Pt has multiple day s in a row she abstains. Alcohol Use Standard Drinks/Week Comments Yes 5 (1 standard drink = 0.6 oz pur e alcohol) socially [facility] Utilities Answer Date Recorded In the past 12 months has [employer] electric, gas, oil, or water company threatened [...] declined 12/31/2023 How often do you attend taoist or adventist serv ices? Patient declined 12/31/2023 Do you belong to any clubs o r organizations such as taoist groups, unions, fraternal or athletic groups, or [...] Total Score - Questions 1-9 0 12/2023 [facility]at ional [facility] - Occupational Stress Questionnaire Answer [...] place to sleep or slept in a long-term (including now)? No 12/31/2023 Education Answer Date [...] Description 03/21/2025 4:30 PM CDT Office Visit [facility] - Primary Care - [address] [place] [address] Shravan Burgos PAC [address] [place] [address] documented as of this encounter Goals Goal Patient Goal Type Associated Problems Recent Progress Patient-Stated? Author Behavioral Health Behavioral Health On track(2019 9:50 AM CDT) Yes Eloise Jenkins, [facility] Note: Irma reported her goal for psychotherapy is to help me be able to deal with things in the present and in her past that are contributing to low and anxious mood. Goal Reviewed with: patient Readiness to change: Thinking about making a change Department associated with goal: [facility] Steps to achieve [...] On track(2019 9:50 AM CDT) Eloise Mix, [facility] Note: Irma will engage in a plan of action to improve emotional and mental wellbeing. Goal Reviewed with: patient Readiness to change: Not yet ready to make a change Department associated with goal: [facility] Steps to achieve [...] as of this encounter Visit Diagnoses Diagnosis Visit for screening mammogram- Primary Other screening mammogram documented in this encounter Additional Health Concerns Assessment Noted Time PHQ-9 Depression Total Score: 0 12/31/19 24 2:09 PM TAX AGENT documented as of this encounter Care Teams Track Service Person Relationship Specialty Start Date End Date Shravan Burgos PAC [address] [place] [address] PCP - General Physician Him Manager 12/31/23 Arnold Roberts MD [address] [place] [address] Consulting Physician Pulmonary Disease 07/26/23 documented as of this encounter
--- OUTSIDE RECORDS SUMMARY | 2024-11-30 17:09 | XMS_ITS | Encounter Summary ---
Author Organization [facility] [employer] Care Team Providers Care Premium Note Interest Calculator Clerk Name Role Phone Arnold Roberts MD Unavailable Shravan Burgos PAC Primary Care Provider [phone] Encounter Details Date Type Department Care Team (Latest Contact Info) Description 12/31/2023 Travel Social History Tobacco Use Types Packs/Day [...] How often do you attend nondenominational or yarsanism serv ices? Patient declined 12/31/2023 Do you [...] Total Score - Questions 1-9 0 12/2023 [facility] - [...] place to sleep or slept in a half-way (including now)? No 12/31/2023 Education Answer Date [...] on file documented as of this encounter Functional Status * Audit-C Score Answer Date of Assessment Author -1 12/31/2023 1:02 PM UNDERWRITING CLERK Scotty, System Background * Within the last year, have you been humiliated or emotionally abused in other ways by your partner or ex-partner? Answer Date of Assessment Author No 12/31/2023 1:02 PM UNDERWRITING CLERK Scotty, System Background * Within the last year, have you been afraid of your partner or ex-partner? Answer Date of Assessment Author No 12/31/2023 1:02 PM UNDERWRITING CLERK Aliciat, System Background * Within the last year, have you been raped or forced to have any kind of sexual activity by your partner or ex-partner? Answer Date of Assessment Author No 12/31/2023 1:02 PM UNDERWRITING CLERK Aliciat, System Background * Within the last year, have you been kicked, hit, slapped, or otherwise physically hurt by your partner or ex-partner? Answer Date of Assessment Author No 12/31/2023 1:02 PM UNDERWRITING CLERK Scotty, System Background * Q1: How often do you have a drink containing alcohol? Answer Date of Assessment Author Patient declined 12/31/2023 1:02 PM UNDERWRITING CLERK Aliciat, System Background * Q2: How many drinks containing alcohol do you have on a typical day when you are drinking? Answer Date of Assessment Author Patient declined 12/31/2023 1:02 PM UNDERWRITING CLERK Scotty, System Background * Q3: How often do you have six or more drinks on one occasion? Answer Date of Assessment Author Patient declined 12/31/2023 1:02 PM UNDERWRITING CLERK Scotty, System Background * Question Answer Date of Assessment Author Little interest or pleasure in doing things Not at all 12/31/2023 2:09 PM Cristin Rodriguez RMA Feeling down, depressed, or hopeless Not at all 12/31/2023 2:09 PM UNDERWRITING CLERK Cristin Tolentino RMA * Over the past 2 weeks, how often have you been bothered by any of the following problems? Question Answer Date of Assessment Author Patient Health Questionnaire -2 Score 0 12/31/2023 2:09 PM UNDERWRITING CLERK Cristin Tolentino RMA documented as of this encounter Plan of Treatment Upcoming Encounters Date Type Department Care Team (Late st Contact Info) Description 03/21/2025 4:30 PM CDT Office Visit [facility] - Primary Care - [place] [place] [address] Shravan Burgos PAC [address] [place] [address] documented as of this encounter [...] change Department associated with goal: [facility] Steps to [...] change Department associated with goal: [facility] Steps to [...] Total Score: 0 12/31/19 24 2:09 PM UNDERWRITING CLERK documented as of this encounter Care Teams Premium Note Interest Calculator Clerk Relationship Specialty Start Date End Date Shravan Burgos, PAC [address] [place] [address] PCP - General Physician Director Park 12/31/23 Arnold Roberts MD [address] [place] [address] Consulting Physician Pulmonary Disease 07/26/23 documented as of this encounter
--- OUTSIDE RECORDS SUMMARY | 2024-11-30 17:09 | XMS_ITS | Encounter Summary ---
Author Organization [facility] Address [address] [place] [place] [address] Phone Care Team Providers Care Tank Officer Name Role Phone Sravani Ramsay MD Primary Care Provider Arnold Roberts MD Unavailable Reason for Visit * Reason Onset Date Comments Medication Management 10/15/2023 Encounter Details Date Type Department Care Team (Late st Contact Info) Description 10/15/2023 Telephone [facility] Call [facility] [address] [place] [address] Sravani Ramsay MD [address] [place] [address] Medication Management Social History Tobacco Use Types Packs/Day Years Used Date Smoking Tobacco: Some Days Cigarettes Smokeless Tobacco: Never Comments:Pt has multiple day s in a row she abstains. Alcohol Use Standard Drinks/Week Comments Yes 5 (1 standard drink = 0.6 oz pur e alcohol) socially AUDIT-C Answer Date Recorded Q1: How often do you have a drink containing alc ohol? 2-4 times a month 04/16/2020 Q2: How many drinks containi ng alcohol do you have on a typical day when you are drinking? 5 or 6 04/16/2020 Q3: How often do you have si x or more drinks on one occasion? Monthly 04/16/2020 PHQ-2 Answer Date Recorded Total Score - Questions 1-9 13 03/29 Education Answer Date Recorded What is the [...] encounter Miscellaneous Notes * Telephone Encounter - Kiera Islas RN - 10/15/2023 4:21 PM CST Thank you!! Followed up with patient to let her know that the script was successfully sent to [facility]. No further questions. T CREASER * Telephone Encounter - Shravan Burgos PAC - 10/15/2023 4:18 PM CST Rx was accidentally sent as fax. Changed to eprescribe. Rx sent to pharmacy. T CREASER * Telephone Encounter - Kiera Islas RN - 10/15/2023 4:06 PM CST S: Patient is calling in regards to recent ativan script that was called [facility] today B: She states she called [facility] and they have not received the order yet. A: The fax failed when sending to the pharmacy E-Prescribing Status: Transmission to pharmacy failed (10/15/2023 12:03 PM JOINT CREASER) R: Can provider resend this script please? Or escribe? T CREASER documented in this encounter Plan of Treatment Upcoming Encounters Date Type Department Care Team (Late st Contact Info) Description 03/21/2025 4:30 PM CDT Office Visit [facility] - Primary Care - [place] [place] [address] Shravan Burgos PAC [address] [place] [address] documented as of this encounter Goals Goal Patient Goal Type Associated Problems Recent Progress Patient-Stated? Author Behavioral [facility] Behavioral Health On track(2019 9:50 AM [...] and past) that trigger mood concerns. Behavioral [facility] Behavioral Health On track(2019 9:50 AM [...] Assessment Noted Time PHQ-9 Depression Total Score: 13 020 2:00 PM CDT documented as of this encounter Care Teams Tank Officer Relationship Specialty Start Date End Date Sravani Ramsay MD [address] [place] [address] PCP - General Family Medicine 04/23/23 12/30/23 Arnold Roberts MD [address] [place] [address] Consulting Physician Pulmonary Disease 07/26/23 documented as of this encounter
--- OUTSIDE RECORDS SUMMARY | 2024-11-30 17:09 | XMS_ITS | Encounter Summary ---
Author Organization [facility] Address [address] [place] [address] Phone Care Team Providers Care Location Man Name Role Phone Arnold Roberts MD Unavailable Shravan Burgos PAC Primary Care Provider [phone] Encounter Details Date Type Department Care Team (Late st Contact Info) Description 12/31/2023 3:10 PM EDGER OPERATOR Lab [facility] - Primary Care - [address] [address] Lab, [facility] Hypertriglyceridemia; Anxiety Discharge Disposition: Discharged to home or Selfcare Social History Tobacco Use Types Packs/Day Years Used Date Smoking Tobacco: Some Days Cigarettes Smokeless Tobacco: Never Comments:Pt has multiple day s in a row she abstains. Alcohol Use Standard Drinks/Week Comments Yes 5 (1 standard drink = 0.6 oz pur e alcohol) socially [facility] Utilities Answer Date Recorded In the past 12 months has [employer], gas, oil, or water [employer] threatened to shut off services in your home? No 12/31/2023 Social Connection and Isolation Panel [NHANES] A nswer Date Recorded In a typical week, how many times do you talk on the phone with family, friends, or neighbors? Patient declined 12/31/2023 How often do you get togethe r with friends or relatives? Patient declined 12/31/2023 How often do you attend scientology or latter-day serv ices? Patient declined 12/31/2023 Do you belong to any clubs o r organizations such as scientology groups, unions, fraternal or athletic groups, or [...] Total Score - Questions 1-9 0 12/2023 [facility] Occupat ional [facility] - Occupational Stress Questionnaire Answer [...] place to sleep or slept in a custodial (including now)? No 12/31/2023 Education Answer Date [...] of Assessment Author -1 12/31/2023 1:02 PM EDGER OPERATOR [employer], System Background * Within the last year, have you been humiliated or emotionally abused in other ways by your partner or ex-partner? Answer Date of Assessment Author No 12/31/2023 1:02 PM EDGER OPERATOR [employer], System Background * Within the last year, have you been afraid of your partner or ex-partner? Answer Date of Assessment Author No 12/31/2023 1:02 PM EDGER OPERATOR [facility], System Background * Within the last year, have you been raped or forced to have any kind of sexual activity by your partner or ex-partner? Answer Date of Assessment Author No 12/31/2023 1:02 PM EDGER OPERATOR [facility], System Background * Within the last year, have you been kicked, hit, slapped, or otherwise physically hurt by your partner or ex-partner? Answer Date of Assessment Author No 12/31/2023 1:02 PM EDGER OPERATOR [facility], System Background * Q1: How often do you have a drink containing alcohol? Answer Date of Assessment Author Patient declined 12/31/2023 1:02 PM EDGER OPERATOR [facility], System Background * Q2: How many drinks containing alcohol do you have on a typical day when you are drinking? Answer Date of Assessment Author Patient declined 12/31/2023 1:02 PM EDGER OPERATOR [facility], System Background * Q3: How often do you have six or more drinks on one occasion? Answer Date of Assessment Author Patient declined 12/31/2023 1:02 PM EDGER OPERATOR [facility], System Background * Question Answer Date of Assessment Author Little interest or pleasure in doing things Not at all 12/31/2023 2:09 PM EDGER OPERATOR Cristin Tolentino RMA Feeling down, depressed, or hopeless Not at all 12/31/2023 2:09 PM EDGER OPERATOR Cristin Tolentino RMA * Over the past 2 weeks, how often have you been bothered by any of the following problems? Question Answer Date of Assessment Author Patient Health Questionnaire -2 Score 0 12/31/2023 2:09 PM EDGER OPERATOR Cristin Tolentino RMA documented as of this encounter Progress Notes * Patti Weaver - 12/31/2023 3:10 PM CST Irma presents for lab draw per order of Shravan Burgos HUMBERTO dated 12/31/23. Specimen collected fromright antecubital without incident. sah R OPERATOR documented in this encounter Plan of Treatment Upcoming Encounters Date Type Department Care Team (Late st Contact Info) Description 03/21/2025 4:30 PM CDT Office Visit [facility] - Primary Care - [address] [place] [address] Shravan Burgos PAC [address] [place] [address] documented as of this encounter Goals Goal Patient Goal Type Associated Problems Recent Progress Patient-Stated? Author Behavioral Health Behavioral Health On track(2019 9:50 AM CDT) Yes Eloise Jenkins, CHAD Note: Irma reported her goal for psychotherapy is to help me be able to deal with things in the present and in her past that are contributing to low and anxious mood. Goal Reviewed with: patient Readiness to change: Thinking about making a change Department associated with goal: [facility] BEHAVIORAL HEALTH SERVICES Steps to [...] On track(2019 9:50 AM CDT) No Eloise Jenkins, ANIMAL HOSPITAL CLERK Note: Irma will engage in a plan of action to improve emotional and mental wellbeing. Goal Reviewed with: patient Readiness to change: Not yet ready to make a change Department associated with goal: [facility] BEHAVIORAL HEALTH SERVICES Steps [...] Procedure Name Priority Date/Time Associated Diagnosis Comments THYROID SCREEN WITH REFLEX Routine 12/31/2023 2:52 PM EDGER OPERATOR Anxiety THYROID SCREEN WITH REFLEX Routine 12/31/2023 2:52 PM EDGER OPERATOR Anxiety CBC WITH AUTO DIFFERENTIAL Today 12/31/2023 2:52 PM EDGER OPERATOR Hypertriglyceridemi a LIPID PANEL Today 12/31/2023 2:52 PM EDGER OPERATOR Hypertriglyceridemi a CMP (COMPREHENSIVE METABOLIC PANEL) Routine 12/31/2023 2:52 PM EDGER OPERATOR Hypertriglyceridemi a COMPLETE BLOOD COUNT (CBC) WITH DIFF Today 12/31/2023 2:52 PM EDGER OPERATOR Hypertriglyceridemi a documented in this encounter Results * THYROID SCREEN WITH REFLEX (12/31/2023 2:52 PM EDGER OPERATOR) Pathologist [facility] TSH 1.113 0.300 - 5.000 mIU/L 12/31/2023 5:40 PM EDGER OPERATOR [facility] Blood Venipuncture / Unknown 12/31/2023 2:52 PM EDGER OPERATOR 12/31/2023 2:52 PM EDGER OPERATOR us Shravan Burgos PAC CHEMISTRY ORDERABLES Final R esult [facility] [address] [place] [address] * (ABNORMAL) CBC WITH AUTO DIFFERENTIAL (12/31/2023 2:52 PM EDGER OPERATOR) [facility] WBC 7.75 4.00 - 12.00 10(3)/mcL 12/31/2023 5:08 PM EDGER OPERATOR [facility] RBC 4.65 3.80 - 5.30 10(6)/mcL 12/31/2023 5:08 PM [facility] HEMOGLOBIN (HGB) 14.5 12.0 - 15.8 g/dL 12/31/2023 5:08 PM [facility] HEMATOCRIT (HCT) 44.0 36.0 - 47.0 % 12/31/2023 5:08 PM [facility] MCV 94.6 82.0 - 96.0 fL 12/31/2023 5:08 PM [facility] MCH 31.2 26.0 - 34.0 pg 12/31/2023 5:08 PM [facility] MCHC 33.0 31.0 - 36.0 g/dL 12/31/2023 5:08 PM [facility] PLATELET COUNT 307 140 - 440 10(3)/mcL 12/31/2023 5:08 PM [facility] RDW 12.8 11.8 - 15.5 % 12/31/2023 5:08 PM [facility] MPV 12.8(H) 9.7 - 12.4 fL 12/31/2023 5:08 PM [facility] NEUTROPHILS 38.4(L) 47.0 - 73.0 % 12/31/2023 5:08 PM [facility] LYMPHOCYTES 45.8(H) 18.0 - 42.0 % 12/31/2023 5:08 PM [facility] MONOCYTES 8.8 4.0 - 12.0 % 12/31/2023 5:08 PM [facility] EOSINOPHILS 6.1(H) 0.0 - 5.0 % 12/31/2023 5:08 PM [facility] BASOPHILS 0.9 0.0 - 1.0 % 12/31/2023 5:08 PM [facility] ABSOLUTE NEUTROPHILS 2.98 1.60 - 7.70 10(3)/[facility] 12/31/2023 5:08 PM [facility] ABSOLUTE LYMPHOCYTES 3.55(H) 1.30 - 3.20 10(3)/[facility] 12/31/2023 5:08 PM [facility] ABSOLUTE MONOCYTES 0.68 0.20 - 1.00 10(3)/[facility] 12/31/2023 5:08 PM [facility] ABSOLUTE EOSINOPHIL 0.47(H) 0.00 - 0.40 10(3)/[facility] 12/31/2023 5:08 PM [facility] ABSOLUTE BASOPHILS 0.07 0.00 - 0.10 10(3)/[facility] 12/31/2023 5:08 PM [facility] NRBC PER 100 WBC 0 12/31/19 5:08 PM [facility] Blood Venipuncture / Unknown 12/31/2023 2:52 PM EDGER OPERATOR 12/31/2023 2:52 PM EDGER OPERATOR us Shravan Burgos PAC HEMATOLOGY ORDERABLES Final Result [facility] [address] [place] [address] * (ABNORMAL) LIPID PANEL (12/31/2023 2:52 PM EDGER OPERATOR) CHOLESTEROL 168 <200 mg/dL 12/31/2023 5:21 PM EDGER OPERATOR [facility] TRIGLYCERIDES 366(H) <150 mg/dL 12/31/2023 5:21 PM EDGER OPERATOR [facility] HDL CHOLESTEROL 52 >40 mg/dL 5:21 PM EDGER OPERATOR [facility] LDL 43 <130 mg/dL 12/31/2023 5:21 PM EDGER OPERATOR [facility] VLDL 73(H) 10 - 50 mg/dL 12/31/2023 5:21 PM EDGER OPERATOR [facility] CHOL/HDL RATIO 3.2 0.0 - 4.4 12/31/2023 5:21 PM EDGER OPERATOR [facility] NON-HDL CHOLESTEROL 116 <130 mg/dL 12/31/2023 5:21 PM EDGER OPERATOR [facility] IS THE PATIENT REQUIRED TO BE FASTING? Yes 12/31/2023 5:21 PM [facility] HAS THE PATIENT BEEN FASTING? Yes 12/31/2023 5:21 PM [facility] Blood Venipuncture / Unknown 12/31/2023 2:52 PM EDGER OPERATOR 12/31/2023 2:52 PM EDGER OPERATOR Shravan Burgos PAC CHEMISTRY ORDERABLES Final R esult [facility] [address] [place] [address] * (ABNORMAL) CMP (COMPREHENSIVE METABOLIC PANEL) (12/31/2023 2:52 PM EDGER OPERATOR) SODIUM 142 136 - 145 mmol/L 12/31/2023 5:21 PM EDGER OPERATOR [facility] POTASSIUM 4.4 3.5 - 5.1 mmol/L 12/31/2023 5:21 PM EDGER OPERATOR [facility] CHLORIDE 106 98 - 107 mmol/L 12/31/2023 5:21 PM [facility] CO2, VENOUS 26 22 - 30 mmol/L 12/31/2023 5:21 PM [facility] ANION GAP 14.4 <18.0 mmol/L 12/31/2023 5:21 PM [facility] GLUCOSE 84 70 - 99 mg/dL 12/31/2023 5:21 PM [facility] BUN 8 5 - 18 mg/dL 12/31/2023 5:21 PM [facility] CREATININE, BLOOD 0.68 0.60 - 1.00 mg/dL 12/31/2023 5:21 PM [facility] BUN/CREATININE RATIO 12 12 - 20 ratio 12/31/2023 5:21 PM [facility] TOTAL PROTEIN 8.2 6.3 - 8.2 g/dL 12/31/2023 5:21 PM [facility] ALBUMIN 4.5 3.5 - 5.0 g/dL 12/31/2023 5:21 PM [facility] A/G RATIO 1.2 1.0 - 2.2 12/31/2023 5:21 PM [facility] CALCIUM 9.0 8.7 - 10.5 mg/dL 12/31/2023 5:21 PM [facility] T BILI 0.4 0.2 - 1.2 mg/dL 12/31/2023 5:21 PM [facility] SGOT (AST) 35(H) 5 - 34 U/L 12/31/2023 5:21 PM [facility] SGPT (ALT) 57(H) 0 - 55 U/L 12/31/2023 5:21 PM [facility] ALKALINE PHOSPHATASE 68 40 - 150 U/L 12/31/2023 5:21 PM [facility] IS THE PATIENT REQUIRED TO BE FASTING? Yes 12/31/2023 5:21 PM [facility] HAS THE PATIENT BEEN FASTING? Yes 12/31/2023 5:21 PM EDGER OPERATOR [facility] GFR, ESTIMATED >60 >=60 12/31/2023 5:21 PM EDGER OPERATOR [facility] Comment: Creatinine Clearance is the preferred criteria for selecting drug dose adjustments in renally impaired patients. ??The GFR is provided as additional pertinent clinical information. GFR is reported in mL/min/1.73 sq m. Calculation based on the Chronic Kidney Disease Epidemiology Collaboration (CKD- EPI) equation refit without adjustment for race. GFR, EST. >60 >=60 024 5:21 PM EDGER OPERATOR [facility] GFR, EST. NONAFRICAN >60 >=60 12/31/2023 5:21 PM EDGER OPERATOR [facility] Blood Venipuncture / Unknown 12/31/2023 2:52 PM EDGER OPERATOR 12/31/2023 2:52 PM EDGER OPERATOR us Shravan Burgos PAC CHEMISTRY ORDERABLES Final R esult [facility] [address] [place] [address] documented in this encounter Visit Diagnoses Diagnosis Hypertriglyceridemia Pure hyperglyceridemia Anxiety Anxiety state, unspecified documented in this encounter Additional Health Concerns Assessment Noted Time PHQ-9 Depression Total Score: 0 12/31/19 24 2:09 PM EDGER OPERATOR documented as of this encounter Care Teams Location Man Relationship Specialty Start Date End Date Shravan Burgos, PAC [address] [place] [address] PCP - General Physician [employer] 12/31/23 Arnold Roberts MD [address] [place] [address] Consulting Physician Pulmonary Disease 07/26/23 documented as of this encounter
--- OUTSIDE RECORDS SUMMARY | 2024-11-30 17:09 | XMS_ITS | Encounter Summary ---
Author Organization [facility] Address [address] [place] [address] Phone Care Team Providers Care Hand Sewer Name Role Phone Sravani Ramsay MD Primary Care Provider [phone] Arnold Roberts MD Unavailable Reason for Visit * Reason Onset Date Comments Advice Only 12/13/2023 Encounter Details Date Type Department Care Team (Late st Contact Info) Description 12/13/2023 Telephone [facility] [address] [place] [address] Sravani Ramsay MD [address] [id number] Advice Only Social History Tobacco Use Types Packs/Day Years [...] encounter Miscellaneous Notes * Telephone Encounter - Dhara Trotter RN - 12/14/2023 1:41 PM CST S: Patient/caller returning call. B: n/a A: n/a R: The following information was reviewed with patient/caller: Rajinder Burgos PACPhysician AssistantSigned 1:23 PM Rx not due for refill until 12/16/23. Will refill for 7 day supply and we will discuss further treatment for her anxiety at [facility] appt. Patient prefers MyChart for communication. Patient/caller verbalized understanding and agreeable to recommendations. [facility] SKINNER * Telephone Encounter - Mohini Aguirre RN - 12/14/2023 1:29 PM [facility]IN[facility]NER Attempted to call patient with provider message, no answer at this time. Left message to call back. [facility]Y [facility]INNER * Addendum Note - Rajinder Burgos PAC - 12/14/2023 1:25 PM CSTAddended by: RAJINDER BURGOS on: 12/14/2023 01:25 PM Modules accepted: Orders [facility]Y [facility]INNER * Telephone Encounter - Rajinder Burgos PAC - 12/14/2023 1:23 PM CST Rx not due for refill until 12/16/23. Will refill for 7 day supply and [facility] * Telephone Encounter - Mohini Aguirre RN - 12/13/2023 4:24 PM DINKEY SKINNER On 11/16/23 Dr. Johnson refilled this medication for one time and patient was advised no refills without transferring care to a new provider. Patient called today and scheduled for 12/23/23. Does provider wish to refill? Per PDMP, last fill 11/16/23 for 30 day supply to [facility]. EY SKINNER * Telephone Encounter - Onur Canales - 12/13/2023 4:13 PM CST Patient called in regards to wanting medication LORazepam (ATIVAN) 0.5 MG Tablet refilled up until their appointment on 12/23/2023. Please call patient back. EY SKINNER documented in this encounter Plan of Treatment Upcoming Encounters Date Type Department Care Team (Late st Contact Info) Description 03/21/2025 4:30 PM CDT Office Visit [facility] - Primary Care - [address] [place] [address] Rajinder Burgos PAC [address] [place] [address] documented as of this encounter Goals Goal Patient Goal Type Associated Problems Recent Progress Patient-Stated? Author Behavioral Health Behavioral Health On track(2019 9:50 AM CDT) Yes Eloise Jenkins, [facility] Note: Irma reported her goal for psychotherapy is to help me be able to deal with things in the present and in her past that are contributing to low and anxious mood. Goal Reviewed with: patient Readiness to change: Thinking about making a change Department associated with goal: [facility] BEHAVIORAL HEALTH SERVICES Steps to achieve [...] track(2019 9:50 AM CDT) No Eloise Jenkins, [facility] Note: Irma will engage in a plan of action to improve emotional and mental wellbeing. Goal Reviewed with: patient Readiness to change: Not yet ready to make a change Department associated with goal: [facility] Steps to achieve [...] documented as of this encounter Care Teams Hand Sewer Relationship Specialty Start Date End Date Sravani Ramsay MD [address] [place] [address] PCP - General Family Medicine 04/23/23 12/30/23 Arnold Roberts MD [address] [place] [address] Consulting Physician Pulmonary Disease 07/26/23 documented as of this encounter
--- OUTSIDE RECORDS SUMMARY | 2024-11-30 17:09 | XMS_ITS | Encounter Summary ---
Author Organization [facility] Address [address] [facility] [place] [address] Phone Care Team Providers Care Mohs Surgeon/General Dermatologist Name Role Phone Sravani Ramsay MD Primary Care Provider [phone] Arnold Roberts MD Unavailable Reason for Visit * Reason Comments Medication Refill Encounter Details Date Type Department Care Team (Late st Contact Info) Description 09/10/[address] [facility] - Primary Care - [place] [address] [place] [address] Sravani Ramsay MD [address] [place] [address] Medication Refill Social History Tobacco Use Types [...] on file Sexual Orientation Not on file COVID-19 Exposure Response Date Recorded In the last 10 days, have yo u been in contact with someone who was confirmed or suspected to have Coronavirus/COVID-19? No / Unsure 09/03/2023 10:53 PM CDT documented as of this encounter Miscellaneous Notes * Telephone Encounter - Mohini Aguirre RN - 09/10/2023 9:34 AM CDT Medication failed the protocol, provider to review and approve the medication order if appropriate. Requested Prescriptions Pending Prescriptions Disp Refills LORazepam (ATIVAN) 0.5 MG Tablet [Pharmacy Med Name: LORAZEPAM 0.5 MG TABLET] 60 Tablet 0 Sig: TAKE 1 TABLET BY MOUTH TWICE A DAY NEEDED FOR ANXIETY *FILL 08/12/23 Not Delegated - Benzodiazepines Protocol Failed - 09/10/2023 9:13 AM Failed - This refill cannot be delegated Passed - Visit with relevant provider in past 12 months or upcoming 90 days Recent Visits Date Type Provider Dept 08/25/23 Office Visit Fiorella Dhaliwal APRN, [employer] [employer] [facility] 04/23/23 Office Visit Sravani Ramsay MD [facility] 11/26/22 Office Visit Shravan Burgos PAC [facility] 11/16/22 Office Visit Amaya Kowalski APRN, [employer] [facility] Showing recent visits within past 365 days and meeting all other requirements Future Appointments No visits were found meeting these conditions. Showing future appointments within next 90 days and meeting all other requirements documented in this encounter Plan of Treatment Upcoming Encounters Date Type Department Care Team (Late st Contact Info) Description 03/21/2025 4:30 PM CDT Office Visit [facility] - Primary Care - [address] [place] [address] Shravan Burgos, PAPI [address] [place] [address] documented as of this encounter Goals Goal Patient Goal Type Associated Problems Recent Progress Patient-Stated? Author Behavioral [facility] Behavioral Health On track(2019 9:50 AM CDT) Yes Eloise Jenkins LCPC Note: Irma reported her goal for psychotherapy is to help me be able to deal with things in the present and in her past that are contributing to low and anxious mood. Goal Reviewed with: patient Readiness to change: Thinking about making a change Department associated with goal: [facility] BEHAVIORAL HEALTH SERVICES Steps [...] and past) that trigger mood concerns. Behavioral [facility] Behavioral Health On track(2019 9:50 AM CDT) No Eloise Jenkins LCPC Note: Irma will engage in a plan of action to improve emotional and mental wellbeing. Goal Reviewed with: patient Readiness to change: Not yet ready to make a change Department associated with goal: [facility] BEHAVIORAL HEALTH SERVICES Steps [...] documented as of this encounter Care Teams Mohs Surgeon/General Dermatologist Relationship Specialty Start Date End Date Sravani Ramsay MD [address] [place] [address] PCP - General Family Medicine 04/23/23 12/30/23 Arnold Roberts MD [address] [place] [address] Consulting Physician Pulmonary Disease 07/26/23 documented as of this encounter
--- OUTSIDE RECORDS SUMMARY | 2024-11-30 17:09 | XMS_ITS | Encounter Summary ---
Author Organization [facility] Address [address] [place] [place] [address] Phone Care Team Providers Care Concrete Pavement Installer Name Role Phone Arnold Roberts MD Unavailable Shravan Burgos PAC Primary Care Provider [phone] Reason for Referral * Consult, Test & Initiate Treatment (Less Than 2 Weeks) - Closed Specialty Diagnoses / Procedures Referred By Contac t Referred To Contact Diagnoses Other idiopathic scoliosis, unspecified spinal region Shravan Burgos, PAC [address] [place] [address] Phone: tel: fax: [facility] [address] [place] [address] [address] [place] [address] [place] [address] Phone: tel: fax: Referral ID Status Reason Start Date Expiration Date Visits Re quested Visits Authorized [id number] Closed 12/31/2023 1 1 Scheduling Instructions Irma is being referred to [facility] orthopedics or other specialist in patient's insurance network for lumbar scoliosis and chronic low back pain. See below for Irma's current medications, allergies and problem list. CURRENT MEDS: Current Outpatient Medications: albuterol 108 (90 Base) MCG/ACT Aerosol Solution, INHALE 1-2 PUFFS BY MOUTH EVERY 4 HOURS NEEDED FOR WHEEZING OR COUGH, Disp: 6.7 g, Rfl: 1 fenofibrate 160 MG Tablet, Take 1 Tablet by mouth daily. (Patient not taking: Reported on 12/31/2023), Disp: 90 Tablet, Rfl: 3 ibuprofen (MOTRIN) 200 MG Tablet, Take 3 Tabs by mouth every 6 hours as needed for Fever., Disp: 20 Tab, Rfl: 0 ipratropium-albuterol (DUO-NEB) 0.5-2.5 (3) MG/3ML Solution, INHALE 1 VIAL VIA NEBULIZER FOUR TIMES DAILY, Disp: 360 mL, Rfl: 11 Respiratory Therapy Supplies (NEBULIZER) Device, Use 4x/day prn., Disp: 1 Each, Rfl: 0 Respiratory Therapy Supplies (NEBULIZER/TUBING/MOUTHPIECE) Kit, Use 4 times daily prn, Disp: 1 Each, Rfl: 0 Symbicort 160-4.5 MCG/ACT Aerosol, INHALE TWO PUFFS BY MOUTH TWO TIMES A DAY (Patient not taking: Reported on 06/24/2023), Disp: 10.2 g, Rfl: 1 No current facility-administered medications for this visit. 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 Reason for Visit * Reason Comments Transition of Care Encounter Details Date Type Department Care Team (Late st Contact Info) Description 12/31/2023 2:15 PM INDUSTRIAL ARTS TEACHER [facility] [place] [address] [place] [address] Shravan Burgos PAC [address] [place] [address] Anxiety (Primary Dx); Hypertriglyceridemia; Other idiopathic scoliosis, unspecified spinal region; Daytime somnolence; Tobacco use disorder Discharge Disposition: Discharged to home or Selfcare Social History Tobacco Use Types Packs/Day Years Used Date Smoking Tobacco: Some Days Cigarettes Smokeless Tobacco: Never Tobacco Cessation:Ready to Q uit: No; Counseling Given: No Comments:Pt has multiple days in a row she abstains. Alcohol Use Standard Drinks/Week Comments Yes 5 (1 standard drink = 0.6 oz pur e alcohol) socially [facility] Utilities Answer Date Recorded In the past [...] How often do you attend rastafari or moravian serv ices? Patient declined 12/31/2023 Do you [...] Total Score - Questions 1-9 0 12/2023 [facility] [place] of Occupat ional Health - Occupational Stress [...] Sign Reading Time Taken Comments Blood Pressure 102/62 12/31/2023 2:13 PM INDUSTRIAL ARTS TEACHER Pulse 89 12/31/2023 2:13 PM INDUSTRIAL ARTS TEACHER Temperature 36.3 ??C (97.3 ??F) 12/31/2023 2:13 PM CS T Respiratory Rate 18 12/31/2023 2:13 PM INDUSTRIAL ARTS TEACHER Oxygen Saturation 98% 12/31/2023 2:13 PM INDUSTRIAL ARTS TEACHER Inhaled Oxygen Concentration - - Weight 65.1 kg (143 lb 9.6 oz) 12/31/2023 2:13 P M INDUSTRIAL ARTS TEACHER Height - - Body Mass Index 26.26 07/26/2023 2:21 PM CDT documented in this encounter Functional Status * Audit-C Score Answer Date of Assessment Author -1 12/31/2023 1:02 PM INDUSTRIAL ARTS TEACHER Scotty, System Background * Within the last year, have you been humiliated or emotionally abused in other ways by your partner or ex-partner? Answer Date of Assessment Author No 12/31/2023 1:02 PM INDUSTRIAL ARTS TEACHER Scotty, System Background * Within the last year, have you been afraid of your partner or ex-partner? Answer Date of Assessment Author No 12/31/2023 1:02 PM INDUSTRIAL ARTS TEACHER Scotty, System Background * Within the last year, have you been raped or forced to have any kind of sexual activity by your partner or ex-partner? Answer Date of Assessment Author No 12/31/2023 1:02 PM INDUSTRIAL ARTS TEACHER Scotty, System Background * Within the last year, have you been kicked, hit, slapped, or otherwise physically hurt by your partner or ex-partner? Answer Date of Assessment Author No 12/31/2023 1:02 PM INDUSTRIAL ARTS TEACHER Scotty, System Background * Q1: How often do you have a drink containing alcohol? Answer Date of Assessment Author Patient declined 12/31/2023 1:02 PM INDUSTRIAL ARTS TEACHER Scotty, System Background * Q2: How many drinks containing alcohol do you have on a typical day when you are drinking? Answer Date of Assessment Author Patient declined 12/31/2023 1:02 PM INDUSTRIAL ARTS TEACHER Scotty, System Background * Q3: How often do you have six or more drinks on one occasion? Answer Date of Assessment Author Patient declined 12/31/2023 1:02 PM INDUSTRIAL ARTS TEACHER Scotty, System Background * Question Answer Date of Assessment Author Little interest or pleasure in doing things Not at all 12/31/2023 2:09 PM Cristin Rodriguez RMA Feeling down, depressed, or hopeless Not at all 12/31/2023 2:09 PM Cristin Rodriguez RMA * Over the past 2 weeks, how often have you been bothered by any of the following problems? Question Answer Date of Assessment Author Patient Health Questionnaire -2 Score 0 12/31/2023 2:09 PM Cristin Rodriguez RMA documented as of this encounter Patient Instructions * Patient Instructions* Shravan Burgos PAC - 12/31/2023 2:15 PM INDUSTRIAL ARTS TEACHER Fasting labs today,. Referral to [facility] for scoliosis. Refilled meds. Discussed at length about trialing something daily for anxiety to hopefully decreaseuse of the ativan. Patient declines at this time due to side effects from meds tried previously. Referral for sleep study today. Follow up in 6 months, or sooner as needed. Take all medications as prescribed. Please continue with a balanced lifestyle of exercise and healthy eating. If any question, please call. Thanks for coming in today! STRIAL ARTS TEACHER STRIAL ARTS TEACHER documented in this encounter Progress Notes * Cristin Tolentino RMA - 12/31/2023 2:15 PM CST Irma Cat Seymour, 43 y.o., female is here for Transition of Care Medication Refills: Patient reports/denies need for medication refills. Orders Pended: yes Requested Prescriptions No prescriptions requested or ordered in this encounter Home Medications Medication Sig Start Date End Date Taking? Authorizing Provider albuterol 108 (90 Base) MCG/ACT Aerosol Solution INHALE 1-2 PUFFS BY MOUTH EVERY 4 HOURS NEEDED FOR WHEEZING OR COUGH 09/17/22 Yes Amaya Kowalski APRN, AUTO ELECTRICIAN fenofibrate 160 MG Tablet Take 1 Tablet by mouth daily. Patient not taking: Reported on 12/31/2023 06/16/23 Sravani Ramsay MD ibuprofen (MOTRIN) 200 MG Tablet Take 3 Tabs by mouth every 6 hours as needed for Fever. 12/26/18 Yes Ti Ma, PAC ipratropium-albuterol (DUO-NEB) 0.5-2.5 (3) MG/3ML Solution INHALE 1 VIAL VIA NEBULIZER FOUR TIMES DAILY 09/18/22 Yes Amaya Kowalski APRN, AUTO ELECTRICIAN Respiratory Therapy Supplies (NEBULIZER) Device Use 4x/day prn. 02/14/19 Yes Amaya Kowalski APRN, AUTO ELECTRICIAN Respiratory Therapy Supplies (NEBULIZER/TUBING/MOUTHPIECE) Kit Use 4 times daily prn 02/16/19 Yes Amaya Kowalski APRN, CNP Symbicort 160-4.5 MCG/ACT Aerosol INHALE TWO PUFFS BY MOUTH TWO TIMES A DAY Patient not taking: Reported on 06/24/2023 01/11/23 Amaya Kowalski APRN, CNP There are no discontinued medications. I have reviewed the home medication list with the patient and have reconciled discrepancies. The list is accurate to the best of my knowledge. Smoking Status: Social History Tobacco Use ??? Smoking status: Some Days Types: Cigarettes ??? Smokeless tobacco: Never ??? Tobacco comments: Pt has multiple days in a row she abstains. Vaping Use ??? Vaping Use: Never used Substance Use Topics ??? Alcohol use: Yes Alcohol/week: 3.0 oz Types: 5 Cans of beer per week Comment: socially ??? Drug use: Not Currently Smoking Cessation Counseling Given: no Health Care Maintenance: Health Maintenance Due Topic Date Due ??? Pneumococcal Immunization Combined (1 of 2 - PCV) Never done ??? DTaP/Tdap/Td Immunization (1 - Tdap) Never done ??? Colorectal Cancer Screening Never done ??? SARS-COV-2 Immunization (2022- season) 2023 Orders Pended: yes The following BPA's have been addressed with the patient today: N/A STRIAL ARTS TEACHER * Cristin Tolentino RMA - 12/31/2023 2:15 PM CST Irma screened for Social Determinants of Health and screened positive for Tobacco Use. Patient declined resources. STRIAL ARTS TEACHER * Shravan Burgos PAC - 12/31/2023 2:15 PM CST HPI: Patient is a 43 y.o. female who presents today for Transition of Care Patient presents today for transition of care. History of anxiety, hypertriglyceridemia, asthma. Patient seeking refill on her lorazepam. She takes this for anxiety and claims to take this twice daily. We discussed at length about trialing a medication to help with daily anxiety so as to use less of the lorazepam, but patient is resistant to this. States that she has taken multiple anti anxiety medications, but unable to tolerate either due to ineffectiveness or side effects. She is due for fasting labs and we will proceed with these today. She is also requesting referrals to an orthopedist for her chronic low back pain secondary to scoliosis She is also requesting a sleep study ordered due to daytime drowsiness and somnolence. Health Maintenance: Health Maintenance Due Topic Date Due ??? DTaP/Tdap/Td Immunization (1 - Tdap) Never done ??? Colorectal Cancer Screening Never done ??? SARS-COV-2 Immunization ( season) 2023 Medications: Current Outpatient Medications Medication Sig Dispense Refill ??? albuterol 108 (90 Base) MCG/ACT Aerosol Solution take 1-2 Puffs by inhalation every 6 hours as needed for Wheezing or Cough. 18 g 0 ??? fenofibrate 160 MG Tablet Take 1 Tablet by mouth daily. (Patient not taking: Reported on 12/31/2023) 90 Tablet 3 ??? ibuprofen (MOTRIN) 200 MG Tablet Take 3 Tabs by mouth every 6 hours as needed for Fever. 20 Tab0 ??? ipratropium-albuterol (DUO-NEB) 0.5-2.5 (3) MG/3ML Solution INHALE 1 VIAL VIA NEBULIZER FOUR TIMES DAILY 360 mL 11 ??? LORazepam (ATIVAN) 0.5 MG Tablet Take 1 Tablet by mouth 2 times daily as needed for Anxiety. 60Tablet 0 ??? Respiratory Therapy Supplies (NEBULIZER) Device Use 4x/day prn. 1 Each 0 ??? Respiratory Therapy Supplies (NEBULIZER/TUBING/MOUTHPIECE) Kit Use 4 times daily prn 1 Each 0 ??? Symbicort 160-4.5 MCG/ACT Aerosol INHALE TWO PUFFS BY MOUTH TWO TIMES A DAY (Patient not taking: Reported on 06/24/2023) 10.2 g 1 No current facility-administered medications for this visit. ROS Fourteen point review of systems negative except as documented in HPI. Vitals: 12/31/23 1413 BP: 102/62 Pulse: 89 Resp: 18 Temp: 97.3 ??F (36.3 ??C) TempSrc: Temporal SpO2: 98% Weight: 143 lb 9.6 oz (65.1 kg) Body mass index is 26.26 kg/m??. Physical Exam Vitals and nursing note reviewed. Constitutional: General: She is not in acute distress. Appearance: Normal appearance. Cardiovascular: Rate and Rhythm: Normal rate and regular rhythm. Pulses: Normal pulses. Heart sounds: Normal heart sounds, S1 normal and S2 normal. No murmur heard. Pulmonary: Effort: Pulmonary effort is normal. Breath sounds: Normal breath sounds. Musculoskeletal: Right lower leg: No edema. Left lower leg: No edema. Neurological: Mental Status: She is alert. Psychiatric: Attention and Perception: Attention and perception normal. Mood and Affect: Mood and affect normal. Speech: Speech normal. Behavior: Behavior normal. Behavior is cooperative. Thought Content: Thought content normal. Thought content does not include homicidal or suicidal ideation. Thought content does not include homicidal or suicidal plan. Cognition and Memory: Cognition normal. Judgment: Judgment normal. Past, family, surgical, and social history reviewed and updated in the chart. Assessment/Plan: Diagnoses and all orders for this visit: Anxiety - LORazepam (ATIVAN) 0.5 MG Tablet; Take 1 Tablet by mouth 2 times daily as needed for Anxiety. - THYROID SCREEN WITH REFLEX; Future Hypertriglyceridemia - COMPLETE BLOOD COUNT (CBC) WITH DIFF; Future - CMP (COMPREHENSIVE METABOLIC PANEL); Future - LIPID PANEL; Future - LIPID PANEL; Future - CMP (COMPREHENSIVE METABOLIC PANEL); Future Other idiopathic scoliosis, unspecified spinal region - EXTERNAL ORTHOPEDIC REFERRAL; Future Daytime somnolence - SLEEP STUDY REFERRAL; Future Tobacco use disorder - albuterol 108 (90 Base) MCG/ACT Aerosol Solution; take 1-2 Puffs by inhalation every 6 hours as needed for Wheezing or Cough. Patient Instructions [facility] today,. [facility] Ref[facility] meds. Discussed at length about trialing something daily for anxiety to hopefully decreaseuse of the ativan. Patient declines at this time due to side effects from meds tried previously. Referral for sleep study today. Follow up in 6 months, or sooner as needed. Take all medications as prescribed. Please continue [...] the patient. Documentation for this visit on 01/02/24 was completed using a template. I have seen and examined the patient. Everything documented was personally performed at this visit with the necessary additions, deletions and changes made as appropriate. STRIAL ARTS TEACHER documented in this encounter Plan of Treatment Upcoming Encounters Date Type Department Care Team (Late st Contact Info) Description 03/21/2025 4:30 PM CDT Office Visit [facility] - Primary Care - [place] [address] [place] [id number] Shravan Burgos PAC [address] [place] [id number] Scheduled Orders Name Type Priority Associated Diagnoses Orde r Schedule LIPID PANEL Lab Routine Hypertriglyceridemia Expected: 06/22/2024, Expires: 01/02/2025 CMP (COMPREHENSIVE METABOLIC PANEL) Lab Routine Hypertriglyceridemia Expected: 06/22/2024, Expires: 07/02/2025 Scheduled Referrals Name Type Priority Associated Diagnoses Order Schedule EXTERNAL ORTHOPEDIC REFERRAL Outpatient Referral Less Than 2 weeks Other idiopathic scoliosis, unspecified spinal region Expected: 12/31/2023, Expires: 12/31/2024 documented as of this encounter Goals Goal Patient Goal Type Associated Problems Recent Progress Patient-Stated? Author Behavioral Health Behavioral Health On track(2019 9:50 AM CDT) Yes Eloise Jenkins, [facility] Note: Irma reported her goal for psychotherapy is to help me be able to deal with things in the present and in her past that are contributing to low and anxious mood. Goal Reviewed with: patient Readiness to change: Thinking about making a change Department associated with goal: [facility] Steps to achieve [...] On track(2019 9:50 AM CDT) Eloise Mix [facility] Note: Irma will engage in a plan of action to improve emotional and mental wellbeing. Goal Reviewed with: patient Readiness to change: Not yet ready to make a change Department associated with goal: [facility] Steps to achieve [...] well being. documented as of this encounter Results * (ABNORMAL) LIPID PANEL (12/31/2023 2:52 PM INDUSTRIAL ARTS TEACHER) CHOLESTEROL 168 <200 mg/dL 12/31/2023 5:21 PM [facility] TRIGLYCERIDES 366(H) <150 mg/dL 12/31/2023 5:21 PM [facility] HDL CHOLESTEROL 52 >40 mg/dL 5:21 PM [facility] LDL 43 <130 mg/dL 12/31/2023 5:21 PM [facility] VLDL 73(H) 10 - 50 mg/dL 12/31/2023 5:21 PM [facility] CHOL/HDL RATIO 3.2 0.0 - 4.4 12/31/2023 5:21 PM [facility] NON-HDL CHOLESTEROL 116 <130 mg/dL 12/31/2023 5:21 PM [facility] IS THE PATIENT REQUIRED TO BE FASTING? Yes 12/31/2023 5:21 PM INDUSTRIAL ARTS TEACHER [facility] HAS THE PATIENT BEEN FASTING? Yes 12/31/2023 5:21 PM [facility] Blood Venipuncture / Unknown 12/31/2023 2:52 PM INDUSTRIAL ARTS TEACHER 12/31/2023 2:52 PM INDUSTRIAL ARTS TEACHER us Shravan Burgos PAC CHEMISTRY ORDERABLES Final R esult [facility] [address] [place] [address] * (ABNORMAL) CMP (COMPREHENSIVE METABOLIC PANEL) (12/31/2023 2:52 PM INDUSTRIAL ARTS TEACHER) SODIUM 142 136 - 145 mmol/L 12/31/2023 5:21 PM [facility] POTASSIUM 4.4 3.5 - 5.1 mmol/L 12/31/2023 5:21 PM [facility] CHLORIDE 106 98 - 107 mmol/L 12/31/2023 5:21 PM [facility] CO2, VENOUS 26 22 - 30 mmol/L 12/31/2023 5:21 PM [facility] ANION GAP 14.4 <18.0 mmol/L 12/31/2023 5:21 PM [facility] GLUCOSE 84 70 - 99 mg/dL 12/31/2023 5:21 PM [facility] BUN 8 5 - 18 mg/dL 12/31/2023 5:21 PM [facility] CREATININE, BLOOD 0.68 0.60 - 1.00 mg/dL 12/31/2023 5:21 PM [facility] BUN/CREATININE RATIO 12 12 - 20 ratio 12/31/2023 5:21 PM [facility] TOTAL PROTEIN 8.2 6.3 - 8.2 g/dL 12/31/2023 5:21 PM [facility] ALBUMIN 4.5 3.5 - 5.0 g/dL 12/31/2023 5:21 PM [facility] A/G RATIO 1.2 1.0 - 2.2 12/31/2023 5:21 PM [facility] CALCIUM 9.0 8.7 - 10.5 mg/dL 12/31/2023 5:21 PM [facility] T BILI 0.4 0.2 - 1.2 mg/dL 12/31/2023 5:21 PM [facility] SGOT (AST) 35(H) 5 - 34 U/L 12/31/2023 5:21 PM [facility] SGPT (ALT) 57(H) 0 - 55 U/L 12/31/2023 5:21 PM [facility] ALKALINE PHOSPHATASE 68 40 - 150 U/L 12/31/2023 5:21 PM [facility] IS THE PATIENT REQUIRED TO BE FASTING? Yes 12/31/2023 5:21 PM [facility] HAS THE PATIENT BEEN FASTING? Yes 12/31/2023 5:21 PM [facility] GFR, ESTIMATED >60 >=60 12/31/2023 5:21 PM [facility] Comment: Creatinine Clearance is the preferred criteria for selecting drug dose adjustments in renally impaired patients. ??The GFR is provided as additional pertinent clinical information. GFR is reported in mL/min/1.73 sq m. Calculation based on the Chronic Kidney Disease Epidemiology Collaboration (CKD- EPI) equation refit without adjustment for race. GFR, EST. >60 >=60 024 5:21 PM [facility] GFR, EST. NONAFRICAN >60 >=60 12/31/2023 5:21 PM [facility] Blood Venipuncture / Unknown 12/31/2023 2:52 PM INDUSTRIAL ARTS TEACHER 12/31/2023 2:52 PM INDUSTRIAL ARTS TEACHER us Shravan Burgos PAC CHEMISTRY ORDERABLES Final R esult [facility] [address] [facility] [place] [address] documented in this encounter Visit Diagnoses Diagnosis Anxiety- Primary Anxiety state, unspecified Hypertriglyceridemia Pure hyperglyceridemia Other idiopathic scoliosis, unspecified spinal region Daytime somnolence Hypersomnia, unspecified Tobacco use disorder documented in this encounter Additional Health Concerns Assessment Noted Time PHQ-9 Depression Total Score: 0 12/31/19 24 2:09 PM INDUSTRIAL ARTS TEACHER documented as of this encounter Care Teams Concrete Pavement Installer Relationship Specialty Start Date End Date Shravan Burgos, [facility] [address] [place] [address] PCP - General Physician Roller Stitcher 12/31/23 Arnold Roberts MD [address] [place] [address] Consulting Physician Pulmonary Disease 07/26/23 documented as of this encounter
--- OUTSIDE RECORDS SUMMARY | 2024-11-30 17:09 | XMS_ITS | Encounter Summary ---
Author Organization [facility] Address [address] [facility] [address] Phone Care Team Providers Care Brass Sorter Name Role Phone Sravani Ramsay MD Primary Care Provider Arnold Roberts MD Unavailable Reason for Visit * Reason Comments Medication Refill Encounter Details Date Type Department Care Team (Late st Contact Info) Description 10/13/2023 Refill [facility] - Primary Care - [place] [address] [place] [address] Shravan Burgos, PAC [address] [place] [address] Medication Refill Social History Tobacco [...] Telephone Encounter - Mohini Aguirre RN - 10/13/2023 11:29 AM NURSE WOUND Medication failed the protocol, provider to review and approve the medication order if appropriate. Requested Prescriptions Pending Prescriptions Disp Refills LORazepam (ATIVAN) 0.5 MG Tablet [Pharmacy Med Name: LORAZEPAM 0.5 MG TABLET] 60 Tablet 0 Sig: TAKE 1 TABLET BY MOUTH TWICE A DAY NEEDED FOR ANXIETY *FILL 08/12/23 Not Delegated - Benzodiazepines Protocol Failed - 10/13/2023 11:18 AM Failed - This refill cannot be delegated Passed - Visit with relevant provider in past 12 months or upcoming 90 days Recent Visits Date Type Provider Dept 08/25/23 Office Visit Fiorella Dhaliwal APRN, DOU[facility]AS [facility] 04/23/23 Office Visit Sravani Ramsay MD [facility] 11/26/22 Office Visit Shravan Burgos, PAPI [facility] 11/16/22 Office Visit Amaya Kowalski APRN, PRESIDENT & CEO [employer] [facility] Showing recent visits within past 365 days and meeting all other requirements Future Appointments No visits were found meeting these conditions. Showing future appointments within next 90 days and meeting all other requirements E WOUND documented in this encounter Plan of Treatment Upcoming Encounters Date Type Department Care Team (Late st Contact Info) Description 03/21/2025 4:30 PM CDT Office Visit [facility] - Primary Care - [place] [address] [place] [address] Shravan Burgos, [facility] [address] [place] [id number] documented as of this encounter Goals Goal Patient Goal Type Associated Problems Recent Progress Patient-Stated? Author [facility] Behavioral Health On track(2019 9:50 AM CDT) Yes Eloise Jenkins LCPC Note: Irma reported her goal for psychotherapy is to help me be able to deal with things in the present and in her past that are contributing to low and anxious mood. Goal Reviewed with: patient Readiness to change: Thinking about making a change Department associated with goal: [facility] Steps to achieve goal: 1. Irma will attend psychotherapy, at minimum twice a month. 2. Irma will identify and explore atleast three incidents/experiences of current stressors, past trauma and family dynamics that contribute to her mood concerns. 3. Irma will identify at least three ways/skills to heal and cope with the experiences (current and past) that trigger mood concerns. Behavioral [facility] Behavioral Health On track(2019 9:50 AM CDT) No Eloise Jenkins LCPC Note: Irma will engage in a plan of action to improve emotional and mental wellbeing. Goal Reviewed with: patient Readiness to change: Not yet ready to make a change Department associated with goal: [facility] Steps to achieve goal: [...] Noted Time PHQ-9 Depression Total Score: 13 04/16/ 020 2:00 PM CDT documented as of this encounter Care Teams Brass Sorter Relationship Specialty Start Date End Date Sravani Ramsay MD [address] [place] [address] PCP - General Family Medicine 04/23/23 12/30/23 Arnold Roberts MD [address] [place] [address] Consulting Physician Pulmonary Disease 07/26/23 documented as of this encounter
--- OUTSIDE RECORDS SUMMARY | 2024-11-30 17:09 | XMS_ITS | Encounter Summary ---
Author Organization [facility] Address [address] [place] [address] Phone Care Team Providers Care Fur Examiner Name Role Phone Sravani Ramsay MD Primary Care Provider Arnold Roberts MD Unavailable Encounter Details Date Type Department Care Team (Late st Contact Info) Description 11/09/2023 Telephone [facility] [address] [place] [address] Fili Perez MD [address] [address] Social History Tobacco Use Types Packs/Day Years [...] encounter Miscellaneous Notes * Telephone Encounter - Susana Clark - 11/09/2023 9:09 AM CST Referral letter - urology ING MACHINE OPERATOR documented in this encounter Plan of Treatment Upcoming Encounters Date Type Department Care Team (Late st Contact Info) Description 03/21/2025 4:30 PM CDT Office Visit [facility] - Primary Care - [place] [address] [place] [address] Shravan Burgos PAC [address] [place] [address] documented as of this encounter [...] making a change Department associated with goal: [facility] Steps to achieve goal: [...] Health On track(2019 9:50 AM CDT) No Eolise Jenkins LCPC Note: Irma will engage in a plan of action to improve emotional and mental wellbeing. Goal Reviewed with: patient Readiness to change: Not yet ready to make a change Department associated with goal: [facility] Steps to achieve goal: [...] documented as of this encounter Care Teams Fur Examiner Relationship Specialty Start Date End Date Sravani Ramsay MD [address] [place] [address] PCP - General Family Medicine 04/23/23 12/30/23 Arnold Roberts MD [address] [place] [address] Consulting Physician Pulmonary Disease 07/26/23 documented as of this encounter
--- OUTSIDE RECORDS SUMMARY | 2024-11-30 17:09 | XMS_ITS | Encounter Summary ---
Author Organization [facility] Address [address] [place] [address] Phone Care Team Providers Care Librarian School Name Role Phone Sravani Ramsay MD Primary Care Provider [phone] Arnold Roberts MD Unavailable Reason for Visit * Reason Comments Medication Refill Encounter Details Date Type Department Care Team (Late st Contact Info) Description 11/14/2023 Refill [facility] - Primary Care - [place] [address] [place] [address] Shravan Burgos, PAC [address] [place] [address] Medication Refill Social History Tobacco [...] Miscellaneous Notes * Telephone Encounter - Latia Garcia RN - 11/16/2023 2:02 PM CST See MyChart encounter 11/14/23. ICAL CONTOUR BAND SAW OPERATOR * Telephone Encounter - Latia Garcia RN - 11/16/2023 1:26 PM CST Routing to covering provider. ICAL CONTOUR BAND SAW OPERATOR * Telephone Encounter - Demar Desouza RN - 11/15/2023 10:54 AM CST Medication failed the protocol, provider to review and approve the medication order if appropriate. Requested Prescriptions Pending Prescriptions Disp Refills LORazepam (ATIVAN) 0.5 MG Tablet [Pharmacy Med Name: LORAZEPAM 0.5 MG TABLET] 60 Tablet 0 Sig: TAKE 1 TABLET BY MOUTH TWICE A DAY NEEDED FOR ANXIETY Not Delegated - Benzodiazepines Protocol Failed - 11/14/2023 3:03 PM Failed - This refill cannot be delegated Passed - Visit with relevant provider in past 12 months or upcoming 90 days Recent Visits Date Type Provider Dept 08/25/23 Office Visit Fiorella Dhaliwal APRN, EVENT STAFF [facility] 04/23/23 Office Visit Sravani Ramsay MD [facility] 11/26/22 Office Visit Shravan Burgos PAC [facility] 11/16/22 Office Visit Amaya Kowalski APRN, EVENT STAFF [facility] Showing recent visits within past 365 days and meeting all other requirements Future Appointments No visits were found meeting these conditions. Showing future appointments within next 90 days and meeting all other requirements ICAL CONTOUR BAND SAW OPERATOR documented in this encounter Plan of Treatment Upcoming Encounters Date Type Department Care Team (Late st Contact Info) Description 03/21/2025 4:30 PM CDT [facility] - [place] [address] [place] [address] Shravan Burgos PAC [address] [place] [address] documented as of this encounter Goals Goal Patient Goal Type Associated Problems Recent Progress Patient-Stated? Author Behavioral [facility] Behavioral Health On track(2019 9:50 AM CDT) Yes Eloise Jenkins LCPC Note: Irma reported her goal for psychotherapy is to help me be able to deal with things in the present and in her past that are contributing to low and anxious mood. Goal Reviewed with: patient Readiness to change: Thinking about making a change Department associated with goal: [facility] Steps [...] and past) that trigger mood concerns. Behavioral [facility] Behavioral Health On track(2019 9:50 AM CDT) No Eloise Jenkins LCPC Note: Irma will engage in a plan of action to improve emotional and mental wellbeing. Goal Reviewed with: patient Readiness to change: Not yet ready to make a change Department associated with goal: [facility] Steps [...] documented as of this encounter Care Teams Librarian School Relationship Specialty Start Date End Date Sravani Ramsay MD [address] [place] [address] PCP - General Family Medicine 04/23/23 12/30/23 Arnold Roberts MD [address] [place] [address] Consulting Physician Pulmonary Disease 07/26/23 documented as of this encounter
--- OUTSIDE RECORDS SUMMARY | 2024-11-30 17:10 | XMS_ITS | Encounter Summary ---
Author Organization [facility] Address [address] [place] [address] Phone Care Team Providers Care Panel Sewer Name Role Phone Sravani Ramsay MD Primary Care Provider [phone] Arnold Roberts MD Unavailable Reason for Referral * Other (Routine) - Open Specialty Diagnoses / Procedures Referred By Contac t Referred To Contact Central Scheduling Diagnoses Mild persistent asthma with exacerbation Procedures COMPLETE PFT W + W/O BRONCHODILATOR Arnold Roberts MD [address] [place] [address] Phone: tel: fax: Referral ID Status Reason Start Date Expiration Date Visits Re quested Visits Authorized [id number] Open 08/17/2023 1 1 Encounter Details Date Type Department Care Team (Late st Contact Info) Description 08/17/[address] [facility] [address] [place] [address] Arnold Roberts MD [address] [place] [address] Social History Tobacco Use Types Packs/Day Years [...] suspected to have Coronavirus/COVID-19? No / Unsure 08/10/2023 4:00 PM CDT documented as of this encounter Miscellaneous Notes * Telephone Encounter - Ainsley Salgado RN - 08/23/2023 10:19 AM CDT Patient is aware and verbalizes understanding. * Telephone Encounter - Ainsley Salgado RN - 08/17/2023 9:30 AM CDT Left message for patient to call back. Order for PFT placed * Telephone Encounter - Ainsley Salgado RN - 08/17/2023 9:30 AM CDT ----- Message from Arnold Roberts MD sent at 08/16/2023 1:56 PM CDT ----- Repeat yearly PFT's documented in this encounter Plan of Treatment Upcoming Encounters Date Type Department Care Team (Late st Contact Info) Description 03/21/2025 4:30 PM CDT Office Visit [facility] - Primary Care - [place] [address] [place] [address] Shravan Burgos PAC [address] [place] [address] Scheduled Orders Name Type Priority Associated Diagnoses Orde r Schedule COMPLETE PFT W + W/O BRONCHODILATOR PFT Routine Mild persistent asthma with exacerbation Expected: 08/11/2024, Expires: 02/14/2025 documented as of this encounter Goals Goal [...] making a change Department associated with goal: [facility] Steps [...] make a change Department associated with goal: [facility] Steps [...] as of this encounter Visit Diagnoses Diagnosis Mild persistent asthma with exacerbation- Primary Unspecified asthma, with exacerbation documented in this encounter Additional Health Concerns Assessment Noted Time PHQ-9 Depression Total Score: 13 020 2:00 PM CDT documented as of this encounter Care Teams Panel Sewer Relationship Specialty Start Date End Date Sravani Ramsay MD [address] [place] [address] PCP - General Family Medicine 04/23/23 12/30/23 Arnold Roberts MD [address] [place] [address] Consulting Physician Pulmonary Disease 07/26/23 documented as of this encounter
--- OUTSIDE RECORDS SUMMARY | 2024-11-30 17:10 | XMS_ITS | Encounter Summary ---
Author Organization [facility] Address [address] [place] [address] Phone Care Team Providers Care Mac Developer Name Role Phone Sravani Ramsay MD Primary Care Provider Arnold Roberts MD Unavailable Reason for Visit * Reason Onset Date Comments Results 09/06/2023 Encounter Details Date Type Department Care Team (Late st Contact Info) Description 09/06/2023 Telephone [facility] [address] [place] [address] Sravani Ramsay MD [address] [place] [address] Results Social History Tobacco Use Types Packs/Day Years [...] encounter Miscellaneous Notes * Telephone Encounter - Fiorella Dhaliwal APRN, CNP - 09/06/2023 4:32 PM CDT Pt was called with results of CT scan. Referral placed to GI. * Telephone Encounter - Loreto Kiser RN - 09/06/2023 11:53 AM CDT Images from the original note were not included. Situation: Patient returning call Background: Result Care Coordination Result Notes Fiorella Dhaliwal APRN, CNP 09/06/2023 ??9:48 AM CDT Back to [facility] Attempted ??to call patient with results of Ct scan. Voicemail left for her to return the call. ?? Assessment: Na Recommendation: Please call patient back after 3 pm today. documented in this encounter Plan of Treatment Upcoming Encounters Date Type Department Care Team (Late st Contact Info) Description 03/21/2025 4:30 PM CDT Office Visit [facility] - Primary Care - [place] [address] [place] [address] Shravan Burgos, PAPI [address] [place] [address] documented as of this encounter Goals Goal Patient Goal Type Associated Problems Recent Progress Patient-Stated? Author [facility] Behavioral Health On track(2019 9:50 AM CDT) Yes Eloise Jenkins LCPC Note: Irma reported her goal for psychotherapy is to help me be able to deal with things in the present and in her past that are contributing to low and anxious mood. Goal Reviewed with: patient Readiness to change: Thinking about making a change Department associated with goal: [facility] Steps to achieve [...] and past) that trigger mood concerns. Behavioral [facility] Behavioral Health On track(2019 9:50 AM CDT) No Eloise Jenkins LCPC Note: Irma will engage in a plan of action to improve emotional and mental wellbeing. Goal Reviewed with: patient Readiness to change: Not yet ready to make a change Department associated with goal: [facility] Steps to achieve [...] documented as of this encounter Care Teams Mac Developer Relationship Specialty Start Date End Date Sravani Ramsay MD [address] [place] [address] PCP - General Family Medicine 04/23/23 12/30/23 Arnold Roberts MD [address] [place] [address] Consulting Physician Pulmonary Disease 07/26/23 documented as of this encounter
--- OUTSIDE RECORDS SUMMARY | 2024-11-30 17:10 | XMS_ITS | Encounter Summary ---
Author Organization [facility] Address [address] [place] [address] Phone Care Team Providers Care Airplane Woodworker Name Role Phone Sravani Ramsay MD Primary Care Provider [phone] Arnold Roberts MD Unavailable Encounter Details Date Type Department Care Team (Late st Contact Info) Description 09/06/2023 Telephone [facility] - [place] [address] [place] [address] Fiorella Dhaliwal APRN, CNP [address] [place] [address] Social History Tobacco Use Types Packs/Day Years [...] as of this encounter Miscellaneous Notes * Addendum Note - Coreen Nuñez CMA - 10/07/2023 9:25 AM CSTAddended by: COREEN NUÑEZ on: 10/07/2023 09:25 AM Modules accepted: Orders R TRANSFER CAR OPERATOR * Telephone Encounter - Fiorella Dhaliwal APRN, CNP - 09/06/2023 4:26 PM CDT Pt was called with results of CT scan. She has seen her SEAM STAYER in the interm with a negative exam and testing. Her Industrial Relations Counselor is referring her to urology. Pt will be referred to GI. documented in this encounter Plan of Treatment Upcoming Encounters Date Type Department Care Team (Late st Contact Info) Description 03/21/2025 4:30 PM CDT Office Visit [facility] - Primary Care - [place] [address] [place] [address] Shravan Burgos PAC [address] [place] [address] documented as of this encounter Goals [...] making a change Department associated with goal: [facility] Steps to achieve [...] make a change Department associated with goal: [facility] Steps to achieve [...] as of this encounter Visit Diagnoses Diagnosis Bloating- Primary Flatulence, eructation, and gas pain Abdominal pain, unspecified abdominal location documented in this encounter Additional Health Concerns Assessment Noted Time PHQ-9 Depression Total Score: 13 020 2:00 PM CDT documented as of this encounter Care Teams Airplane Woodworker Relationship Specialty Start Date End Date Sravani Ramsay MD [address] [place] [address] PCP - General Family Medicine 04/23/23 12/30/23 Arnold Roberts MD [address] [place] [address] Consulting Physician Pulmonary Disease 07/26/23 documented as of this encounter
--- OUTSIDE RECORDS SUMMARY | 2024-11-30 17:10 | XMS_ITS | Encounter Summary ---
Author Organization [employer] Care Team Providers Care Enterprise Account Manager Name Role Phone Sravani Ramsay MD Primary Care Provider [phone] Arnold Roberts MD Unavailable Encounter Details Date Type Department Care Team (Latest Contact Info) Description 08/25/2023 Travel Social History Tobacco Use Types Packs/Day [...] was confirmed or suspected to have Coronavirus/COVID-19? Yes 08/25/2023 1:51 PM CDT documented as of this encounter Plan of Treatment Upcoming Encounters Date Type Department Care Team (Late st Contact Info) Description 03/21/2025 4:30 PM CDT Office Visit [facility] - Primary Care - [place] [address] [place] [address] Shravan Burgos, PAC [address] [place] [address] documented as of this encounter Goals Goal Patient Goal Type Associated Problems Recent Progress Patient-Stated? Author Behavioral [facility] Behavioral Health On track(2019 9:50 AM CDT) Yes Eloise Jenkins LCPC Note: Irma reported her goal for psychotherapy is to help me be able to deal with things in the present and in her past that are contributing to low and anxious mood. Goal Reviewed with: patient Readiness to change: Thinking about making a change Department associated with goal: [facility] Steps to achieve [...] make a change Department associated with goal: [facility] Steps to achieve [...] documented as of this encounter Care Teams Enterprise Account Manager Relationship Specialty Start Date End Date Sravani Ramsay MD [address] [place] [address] PCP - General Family Medicine 04/23/23 12/30/23 Arnold Roberts MD [address] [place] [address] Consulting Physician Pulmonary Disease 07/26/23 documented as of this encounter
--- OUTSIDE RECORDS SUMMARY | 2024-11-30 17:10 | XMS_ITS | Encounter Summary ---
Author Organization [facility] Address [address] [place] [address] Phone Care Team Providers Care Turning Machine Operator Helper Name Role Phone Sravani Ramsay MD Primary Care Provider Arnold Roberts MD Unavailable Reason for Visit * Reason Onset Date Comments Advice Only 08/19/2023 Encounter Details Date Type Department Care Team (Late st Contact Info) Description 08/19/2023 Telephone [facility] [address] [place] [address] Sravani Ramsay MD [address] [place] [id number] Advice Only Social History Tobacco Use Types [...] Telephone Encounter - Latia Garcia, RN - 08/19/2023 1:04 PM CDT Returned call to Irma. Appointment scheduled for 08/25/23 with Fiorella Dhaliwal APRN, LOTTERY SALES CLERK. * Telephone Encounter - Clara Clark - 08/19/2023 12:40 PM CDT RFC: Irma is requesting a call back as she states she is needing to see provider but the soonest available appointment is 09/27/23 . Please call Irma [phone] (relationship to patient self) back regarding above referenced patient. Patient's Provider is Sravani Ramsay MD . documented in this encounter Plan of Treatment Upcoming Encounters Date Type Department Care Team (Late st Contact Info) Description 03/21/2025 4:30 PM CDT Office Visit [facility] - Primary Care - [place] [address] [place] [address] Shravan Burgos PAC [address] [place] [address] documented as of this encounter Goals Goal Patient Goal Type Associated Problems Recent Progress Patient-Stated? Author [facility] On track(2019 9:50 AM CDT) Yes Eloise Jenkins LCPC Note: Irma reported her goal for psychotherapy is to help me be able to deal with things in the present and in her past that are contributing to low and anxious mood. Goal Reviewed with: patient Readiness to change: Thinking about making a change Department associated with goal: [facility]AVIORAL HE[facility] Steps to achieve goal: 1. Irma will attend psychotherapy, at minimum twice a month. 2. Irma will identify and explore atleast three incidents/experiences of current stressors, past trauma and family dynamics that contribute to her mood concerns. 3. Irma will identify at least three ways/skills to heal and cope with the experiences (current and past) that trigger mood concerns. [facility] On track(2019 9:50 AM CDT) No Eloise Jenkins LCPC Note: Irma will engage in a plan of action to improve emotional and mental wellbeing. Goal Reviewed with: patient Readiness to change: Not yet ready to make a change Department associated with goal: [facility] Steps to achieve [...] documented as of this encounter Care Teams Turning Machine Operator Helper Relationship Specialty Start Date End Date Sravani Ramsay MD [address] [place] [address] PCP - General Family Medicine 04/23/23 12/30/23 Arnold Roberts MD [address] [place] [address] Consulting Physician Pulmonary Disease 07/26/23 documented as of this encounter
--- OUTSIDE RECORDS SUMMARY | 2024-11-30 17:10 | XMS_ITS | Encounter Summary ---
Author Organization [employer] Care Team Providers Care Cattle Knocker Name Role Phone Sravani Ramsay MD Primary Care Provider [phone] Arnold Roberts MD Unavailable Encounter Details Date Type Department Care Team (Latest Contact Info) Description 09/03/2023 Travel Social History Tobacco Use Types Packs/Day [...] Description 03/21/2025 4:30 PM CDT Office Visit [facility] - Primary Care - [place] [address] [place] [address] Shravan Burgos, PAPI [address] [place] [address] documented as of this encounter Goals Goal Patient Goal Type Associated Problems Recent Progress Patient-Stated? Author Behavioral [facility] Behavioral Health On track(2019 9:50 AM CDT) Yes Eloise Jenkins LCPC Note: Irma reported her goal for psychotherapy is to help me be able to deal with things in the present and in her past that are contributing to low and anxious mood. Goal Reviewed with: patient Readiness to change: Thinking about making a change Department associated with goal: [facility] Steps [...] make a change Department associated with goal: [facility] Steps [...] documented as of this encounter Care Teams Cattle Knocker Relationship Specialty Start Date End Date Sravani Ramsay MD [address] [place] [address] PCP - General Family Medicine 04/23/23 12/30/23 Arnold Roberts MD [address] [place] [address] Consulting Physician Pulmonary Disease 07/26/23 documented as of this encounter
--- OUTSIDE RECORDS SUMMARY | 2024-11-30 17:10 | XMS_ITS | Encounter Summary ---
Author Organization [facility] Address [address] [place] [address] Phone Care Team Providers Care Engineering Professionals Name Role Phone Sravani Ramsay MD Primary Care Provider [phone] Arnold Roberts MD Unavailable Reason for Referral * Radiology Services (Routine) - Closed Specialty Diagnoses / Procedures Referred By Claudio t Referred To Contact Radiology Diagnoses Abdominal pain, unspecified abdominal location Early satiety Bloating Procedures CT ABDOMEN PELVIS W/O CONTRAST Fiorella Dhaliwal APRN, CNP [address] [place] [address] Phone: tel: fax: Referral ID Status Reason Start Date Expiration Date Visits Re quested Visits Authorized [id number] Closed 08/25/2023 1 1 Reason for Visit * Reason Comments Lump Patient c/o a painfu l lumps in the groin Gas Abdominal Pain Encounter Details Date Type Department Care Team ([facility] st Contact Info) Description 08/25/2023 3:30 PM CDT Office Visit [facility] - Primary Care - [place] [address] [place] [address] Fiorella Dhaliwal APRN, CNP [address] [place] [id number] Encounter for immunization (Primary Dx); Abdominal pain, unspecified abdominal location; Early satiety; Bloating; Dysuria Discharge Disposition: Discharged to home or Selfcare [...] PM CDT documented as of this encounter Last Filed Vital Signs Vital Sign Reading Time Taken Comments Blood Pressure 100/70 08/25/2023 3:36 PM CDT Pulse 77 08/25/2023 3:36 PM CDT Temperature 36.7 ??C (98 ??F) 08/25/2023 3:36 PM CDT Respiratory Rate 20 08/25/2023 3:36 PM CDT Oxygen Saturation 99% 08/25/2023 3:36 PM CDT Inhaled Oxygen Concentration - - Weight 66.7 kg (147 lb) 08/25/2023 3:36 PM CDT Height - - Body Mass Index 26.89 07/26/2023 2:21 PM CDT documented in this encounter Patient Instructions * Patient Instructions* Fiorella Dhaliwal APRN, CNP - 08/25/2023 3:30 PM CDT Small frequent meals Observe for worsening signs and symptoms CT scan as discussed Further recommendations based on Ct scan. Follow up after testing completed documented in this encounter Progress Notes * Melonie Herrera CMA - 08/25/2023 3:30 PM CDT Irma Seymour is a 43 y.o. female with current BMI: Body mass index is 26.89 kg/m??. Interventions discussed including: encourage daily physical activity and well- balanced diet. Irma Seymour was provided education materials regarding smoking cessation as noted on the After Visit Summary. Counseling Given and Ready to Quit Calix are updated in the Social History. * Melonie Herrera CMA - 08/25/2023 3:30 PM CDT Irma Seymour, 43 y.o., female is here for Lump (Patient c/o a painful lumps in the groin), Gas, and Abdominal Pain Medication Refills: Patient reports/denies need for medication refills. Orders Pended: no Requested Prescriptions No prescriptions requested or ordered in this encounter Home Medications Medication Sig Start Date End Date Taking? Authorizing Provider albuterol 108 (90 Base) MCG/ACT Aerosol Solution INHALE 1-2 PUFFS BY MOUTH EVERY 4 HOURS NEEDED FOR WHEEZING OR COUGH 09/17/22 Yes Amaya Kowalski APRN, CNP fenofibrate 160 MG Tablet Take 1 Tablet by mouth daily. 06/16/23 Yes Sravani Ramsay MD ibuprofen (MOTRIN) 200 MG Tablet Take 3 Tabs by mouth every 6 hours as needed for Fever. 12/26/18 Yes Crimora, Ti Rajeev, PAC ipratropium-albuterol (DUO-NEB) 0.5-2.5 (3) MG/3ML Solution INHALE 1 VIAL VIA NEBULIZER FOUR TIMES DAILY 09/18/22 Yes Amaya Kowalski APRN, CNP LORazepam (ATIVAN) 0.5 MG Tablet TAKE 1 TABLET BY MOUTH TWICE A DAY NEEDED FOR ANXIETY 08/12/23 Yes Sravani Ramsay MD Respiratory Therapy Supplies (NEBULIZER) Device Use 4x/day [...] Health Maintenance Due Topic Date Due ??? Colorectal Cancer Screening Never done ??? Influenza Immunization (1) 07/30/2023 Orders Pended: no The following BPA's have been addressed with the patient today: Flu * Fiorella Dhaliwal APRN, CNP - 08/25/2023 3:30 PM CDT Images from the original note were not included. HPI: Patient is a 43 y.o. female who presents today for Lump (Patient c/o a painful lumps in the groin),Gas, and Abdominal Pain Pt complaints of abdominal pain, gas, and lumps in the groin. She is having early saitey and bloating. She also would like to be retested to make sure her uti has resolved. She has an IUD and normally does not have periods but is having some spotting recently. She states that she has gained 7lbs inthe last 2 months despite not being able to eat but a few bites of food at a time. Her abdomen is more rounded and she feels very bloated. Health Maintenance: Health Maintenance Due Topic Date Due ??? Colorectal Cancer Screening Never done Medications: Current Outpatient Medications Medication Sig Dispense Refill ??? albuterol 108 (90 Base) MCG/ACT Aerosol Solution INHALE 1-2 PUFFS BY MOUTH EVERY 4 HOURS NEEDED FOR WHEEZING OR COUGH 6.7 g 1 ??? fenofibrate 160 MG Tablet Take 1 Tablet by mouth daily. 90 Tablet 3 ??? ibuprofen (MOTRIN) 200 MG Tablet Take 3 Tabs by mouth every 6 hours as needed for Fever. 20 Tab0 ??? ipratropium-albuterol (DUO-NEB) 0.5-2.5 (3) MG/3ML Solution INHALE 1 VIAL VIA NEBULIZER FOUR TIMES DAILY 360 mL 11 ??? LORazepam (ATIVAN) 0.5 MG Tablet TAKE 1 TABLET BY MOUTH TWICE A DAY NEEDED FOR ANXIETY 60 Tablet 0 ??? Respiratory Therapy Supplies (NEBULIZER) Device Use 4x/day prn. 1 Each 0 ??? Respiratory Therapy Supplies (NEBULIZER/TUBING/MOUTHPIECE) Kit Use 4 times daily prn 1 Each 0 ??? Symbicort 160-4.5 MCG/ACT Aerosol INHALE TWO PUFFS BY MOUTH TWO TIMES A DAY (Patient not taking: Reported on 06/24/2023) 10.2 g 1 No current facility-administered medications for this visit. Review of Systems Constitutional: Negative. HENT: Negative. Gastrointestinal: Positive for abdominal pain. Negative for blood in stool, constipation, diarrhea,nausea and vomiting. Early saity and bloating Neurological: Negative. Vitals: 08/25/23 1536 BP: 100/70 Pulse: 77 Resp: 20 Temp: 98 ??F (36.7 ??C) SpO2: 99% Weight: 147 lb (66.7 kg) Body mass index is 26.89 kg/m??. Physical Exam Vitals and nursing note reviewed. Constitutional: Appearance: Normal appearance. She is normal weight. Cardiovascular: Rate and Rhythm: Normal rate and regular rhythm. Pulses: Normal pulses. Heart sounds: Normal heart sounds. Pulmonary: Effort: Pulmonary effort is normal. Breath sounds: Normal breath sounds. Abdominal: General: Bowel sounds are normal. There is distension. Palpations: Abdomen is soft. There is no mass. Tenderness: There is no abdominal tenderness. There is no guarding. Hernia: No hernia is present. Skin: General: Skin is warm and dry. Findings: Abscess (two small nodules that appear to be helaing abscesses. non tender to palpation, no drainage noted at this time. central umbilication noted to both areas. ) present. Neurological: Mental Status: She is alert. Past, family, surgical, and social history reviewed and updated in the chart. Assessment/Plan: Diagnoses and all orders for this visit: Encounter for immunization - INFLUENZA VACCINE QUAD IM - INFLUENZA IMMUNIZATION QUESTIONS Abdominal pain, unspecified abdominal location - CT ABDOMEN PELVIS W/O CONTRAST; Future Early satiety - CT ABDOMEN PELVIS W/O CONTRAST; Future Bloating - CT ABDOMEN PELVIS W/O CONTRAST; Future Dysuria - POCT UA NON-AUTOMATED W/O MICRO Patient Instructions Small frequent meals Observe for worsening signs and symptoms CT scan as discussed Further recommendations based on Ct scan. Follow up after testing completed Patient verbalizes understanding and agrees with plan of care as noted above. New medication discussed with patient and family, including action of medication, potential side effects, interactions, and consequences for not taking it. Patient states understanding of new medication instructions. An After Visit Summary with personalized patient education was printed and given to the patient. Documentation for this visit on 08/27/23 was completed using a template. I have seen and examined the patient. Everything documented was personally performed at this visit with the necessary additions, deletions and changes made as appropriate. documented in this encounter Plan of Treatment Upcoming Encounters Date Type Department Care Team (Late st Contact Info) Description 03/21/2025 4:30 PM CDT Office Visit [facility] - Primary Care - [place] [address] [place] [address] Shravan Burgos, PAC [address] [place] [phone] documented as of this encounter Goals Goal Patient Goal Type Associated Problems Recent Progress Patient-Stated? Author [facility] On track(2019 9:50 AM CDT) [...] (current and past) that trigger mood concerns. [facility] Behavioral Health On track(2019 9:50 AM [...] Procedure Name Priority Date/Time Associated Diagnosis Comments POCT UA NON-AUTOMATED W/O MICRO Routine 08/25/2023 3:30 PM CDT Dysuria documented in this encounter Results * CT ABDOMEN PELVIS W/O CONTRAST (09/04/2023 12:02 PM CDT) Anatomical Region Laterality Modality Abdomen N/A Computed Tomogra phy 09/04/2023 12:4 0 PM CDT Impressions 09/04/2023 12:43 PM CDT IMPRESSION: 1. ?? IUD in place. 2. ?? 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 ??No hydronephrosis or urolithiasis. Narrative 09/04/2023 12:43 PM CDT EXAM DESCRIPTION: ?? CT ABDOMEN PELVIS W/O CONTRAST REASON FOR STUDY: ?NO BM in 3 days abdominal pain, gas, bloating, early saitey, weight gain, lumps in groin area, UTI x 2 months ?? TECHNIQUE: CT scan of the abdomen and pelvis performed without intravenous and ??without ??oral contrast using helical scanning technique. Reconstructed coronal and sagittal MPR images reviewed. All images stored on PACS. Automated exposure control was used as a dose optimization technique for this examination. COMPARISON: ?? CT chest which included the upper abdomen 03/21/2019 REFERENCE: Per ACR white paper recommendations, unless otherwise specified no follow-up imaging is recommended for incidental renal and adrenal lesions per consensus recommendations based on imaging criteria. Further lab evaluation could be pursued based on clinical findings. FINDINGS: The sensitivity for detection of visceral lesions is diminished without the use of intravenous contrast. LOWER CHEST: ?? No significant pulmonary abnormalities. No effusion. LIVER: ?? Normal size. ??No identified cystic or solid masses. GALLBLADDER: ?? Unremarkable. BILE DUCTS: ?? No intrahepatic or extrahepatic ductal dilatation. SPLEEN: ?? Normal size. ??No focal lesions. PANCREAS: ?? No identified cystic or solid masses. ??No significant calcifications. No adjacent inflammation or peripancreatic fluid collections. Pancreatic duct not dilated. ADRENALS: ?? Normal. KIDNEYS/URINARY TRACT: ?? There is mild rotation of the right kidney. Partial duplication of the right renal collecting system. ??No hydronephrosis or evidence of urolithiasis. ??Left kidney unremarkable. ?Urinary bladder is unremarkable. GI: ?? No dilated bowel loops. No obvious wall thickening. ??Normal appendix. ??No significant diverticular disease. PERITONEUM: ?? No ascites or free air. RETROPERITONEUM: ?? No mass or adenopathy. REPRODUCTIVE: ?? Uterus normal size. ??IUD in place. ??No adnexal masses. VASCULATURE: ?? No abdominal aortic aneurysm. MUSCULOSKELETAL: ?? No acute findings. ??Moderate scoliotic curvature of the spine. OTHER: ?? No other abnormality. THIS IS AN ELECTRONICALLY VERIFIED FINAL REPORT 09/04/2023 12:40 PM - Electronically signed by ??Davidson Webster M.D. RW: NEDRA D: ??09/04/2023 12:40 PM T: ??09/04/2023 12:40 PM Report ID: [id number] Reading Location: ??[id number] Procedure Note Davidson Webster MD - 09/04/2023 EXAM DESCRIPTION: CT ABDOMEN PELVIS W/O CONTRAST REASON FOR STUDY: NO BM in 3 days abdominal pain, gas, bloating, early saitey, weight gain, lumps in groin area, UTI x 2 months TECHNIQUE: CT scan of the abdomen and pelvis performed without intravenous and without oral contrast using helical scanning technique. Reconstructed coronal and sagittal MPR images reviewed. All images stored on PACS. Automated exposure control was used as a dose optimization technique for this examination. COMPARISON: CT chest which included the upper abdomen 03/21/2019 REFERENCE: Per ACR white paper recommendations, unless otherwise specified no follow-up imaging is recommended for incidental renal and adrenal lesions per consensus recommendations based on imaging criteria. Further lab evaluation could be pursued based on clinical findings. FINDINGS: The sensitivity for detection of visceral lesions is diminished without the use of intravenous contrast. LOWER CHEST: No significant pulmonary abnormalities. No effusion. LIVER: Normal size. No identified cystic or solid masses. GALLBLADDER: Unremarkable. BILE DUCTS: No intrahepatic or extrahepatic ductal dilatation. SPLEEN: Normal size. No focal lesions. PANCREAS: No identified cystic or solid masses. No significant calcifications. No adjacent inflammation or peripancreatic fluid collections. Pancreatic duct not dilated. ADRENALS: Normal. KIDNEYS/URINARY TRACT: There is mild rotation of the right kidney. Partial duplication of the right renal collecting system. No hydronephrosis or evidence of urolithiasis. Left kidney unremarkable. Urinary bladder is unremarkable. GI: No dilated bowel loops. No obvious wall thickening. Normal appendix. No significant diverticular disease. PERITONEUM: No ascites or free air. RETROPERITONEUM: No mass or adenopathy. REPRODUCTIVE: Uterus normal size. IUD in place. No adnexal masses. VASCULATURE: No abdominal aortic aneurysm. MUSCULOSKELETAL: No acute findings. Moderate scoliotic curvature of the spine. OTHER: No other abnormality. THIS IS AN ELECTRONICALLY VERIFIED FINAL REPORT 09/04/2023 12:40 PM - Electronically signed by Davidson Webster M.D. RW: NEDRA Report ID: [id number] Reading Location: [id number] IMPRESSION: 1. IUD in place. 2. 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 No hydronephrosis or urolithiasis. Fiorella Dhaliwal APRN, CNP IMG CT ORDERABLES Final Result * (ABNORMAL) POCT UA NON-AUTOMATED W/O MICRO (08/25/2023 3:30 PM CDT) POC UA SPECIFIC GRAVITY 1.020 URINE PH 7.2 5.0 - 9.0 UR, LEUKOCYTES Negative Negative Eunice/uL POC URINE NITRITE Negative Negative UR, PROTEIN Negative Negative mg/dL UR, GLUCOSE Negative Negative, Normal mg/dL UR, KETONE Negative Negative mg/dL UR, UROBILINOGEN Norm Norm, 0.2 mg/dL, 1.0 mg/dL mg/dL UR, BILIRUBIN Negative Negative mg/dL POC URINE BLOOD (NON HEMOLYZED) about 50 Ashkan/??L(A) not applicable, Negative Ashkan/uL POC URINE HEMOGLOBIN (BLOOD HEMOLYZED Trace(A) Negative, not applicable Ashkan/uL POC URINE COLOR Patti POC URINE CLARITY Clear 08/25/2023 3:30 PM CDT Fiorella Dhaliwal APRN, CNP POINT OF CARE TEST ING (MANUAL) Final Result documented in this encounter Visit Diagnoses Diagnosis Encounter for immunization- Primary Need for other specified prophylactic vaccination against single bacterial disease Abdominal pain, unspecified abdominal location Early satiety Bloating Flatulence, eructation, and gas pain Dysuria documented in this encounter Additional Health Concerns Assessment Noted Time PHQ-9 Depression Total Score: 13 020 2:00 PM CDT documented as of this encounter Care Teams Engineering Professionals Relationship Specialty Start Date End Date Sravani Ramsay MD [address] [place] [address] PCP - General Family Medicine 04/23/23 12/30/23 Arnold Roberts MD [address] [place] [address] Consulting Physician Pulmonary Disease 07/26/23 documented as of this encounter
--- OUTSIDE RECORDS SUMMARY | 2024-11-30 17:11 | XMS_ITS | Encounter Summary ---
Author Organization [employer] Care Team Providers Care Insurance Sales Specialist Name Role Phone Sravani Ramsay MD Primary Care Provider Encounter Details Date Type Department Care Team (Latest Contact Info) Description 07/22/2023 Travel Social History Tobacco Use Types Packs/Day [...] suspected to have Coronavirus/COVID-19? No / Unsure 07/22/2023 3:50 PM CDT documented as of this encounter Plan of Treatment Upcoming Encounters Date Type Department Care Team (Late st Contact Info) Description 03/21/2025 4:30 PM CDT Office Visit [facility] - Primary Care - [place] [address] [place] [address] Shravan Burgos, PAC [address] [place] [address] documented as of this encounter Goals Goal Patient Goal Type Associated Problems Recent Progress Patient-Stated? Author [facility] Health On track(2019 9:50 AM CDT) Yes Eloise Jenkins LCPC Note: Irma reported her goal for psychotherapy is to help me be able to deal with things in the present and in her past that are contributing to low and anxious mood. Goal Reviewed with: patient Readiness to change: Thinking about making a change Department associated with goal: [facility] Steps to achieve goal: 1. Irma will attend psychotherapy, at minimum twice a month. 2. Irma will identify and explore atleast three incidents/experiences of current stressors, past trauma and family dynamics that contribute to her mood concerns. 3. Irma will identify at least three ways/skills to heal and cope with the experiences (current and past) that trigger mood concerns. Behavioral [facility] Behavioral Health On track(2019 9:50 AM CDT) No Eloise Jenkins LCPC Note: Irma will engage in a plan of action to improve emotional and mental wellbeing. Goal Reviewed with: patient Readiness to change: Not yet ready to make a change Department associated with goal: [facility] Steps to achieve goal: [...] of this encounter Care Teams Insurance Sales Specialist Relationship Specialty Start Date End Date Sravani Ramsay MD [address] [place] [address] PCP - General Family Medicine 04/23/23 12/30/23 documented as of this encounter
--- OUTSIDE RECORDS SUMMARY | 2024-11-30 17:11 | XMS_ITS | Encounter Summary ---
Author Organization [facility] Address [address] [place] [address] Phone Care Team Providers Care Cooperer Name Role Phone Sravani Ramsay MD Primary Care Provider [phone] Arnold Roberts MD Unavailable Reason for Referral * Other (Routine) - Closed Specialty Diagnoses / Procedures Referred By Claudio remy Referred To Contact Pulmonology Diagnoses Mild persistent asthma with exacerbation Procedures COMPLETE PFT W + W/O BRONCHODILATOR Arnold Roberts MD [address] [place] [address] Phone: tel: fax: Referral ID Status Reason Start Date Expiration Date Visits Re quested Visits Authorized [id number] Closed 07/26/2023 1 1 Reason for Visit * Reason Comments New Patient Referral from Dr Olivier sánchez for asthma * Consult, Test & Initiate Treatment (Routine) - Closed Specialty Diagnoses / Procedures Referred By Claudio remy Referred To Contact Pulmonology Diagnoses Mild persistent asthma with exacerbation Sravani Ramsay MD Phone: tel: fax: [facility] - Pulmonology & Sleep Medicine [facility]3] [address] [place] [address] Phone: tel: fax: Referral ID Status Reason Start Date Expiration Date Visits Re quested Visits Authorized [id number] Closed 06/24/2023 1 1 Encounter Details Date Type Department Care Team (Late st Contact Info) Description 07/26/2023 2:15 PM CDT Office Visit [facility] - Pulmonology & Sleep Medicine [facility]3] [address] [place] [address] Arnold Roberts MD [address] [place] [address] Moderate persistent asthma without complication (Primary Dx); Mild persistent asthma with exacerbation; Simple chronic bronchitis (HCC); Tobacco use disorder Discharge Disposition: Discharged to [...] confirmed or suspected to have Coronavirus/COVID-19? Yes 07/26/2023 12:09 PM CDT documented as of this encounter Last Filed Vital Signs Vital Sign Reading Time Taken Comments Blood Pressure 124/70 07/26/2023 2:21 PM CDT Pulse 82 07/26/2023 2:21 PM CDT Temperature 36.6 ??C (97.9 ??F) 07/26/2023 2:21 PM CD T Respiratory Rate 14 07/26/2023 2:21 PM CDT Oxygen Saturation 98% 07/26/2023 2:21 PM CDT Inhaled Oxygen Concentration - - Weight 66.2 kg (146 lb) 07/26/2023 2:21 PM CDT Height 157.5 cm (5' 2 ) 07/26/2023 2:21 PM CDT Body Mass Index 26.7 07/26/2023 2:21 PM CDT documented in this encounter Progress Notes * Arnold Roberts MD - 07/26/2023 2:15 PM CDT Images from the original note were not included. Progress Note Subjective: HPI: Irma Seymour is a 43 y.o. 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 Moderate persistent asthma without complication 07/26/2023 ??? Facial asymmetry 12/05/2020 ??? Apical abscess 12/05/2020 ??? Leukocytosis 12/24/2019 ??? Chronic bronchitis (HCC) 03/09/2019 ??? Lung infiltrate 03/09/2019 ??? Tobacco use disorder 03/09/2019 ??? Other chronic sinusitis 03/09/2019 ??? BMI 26.0-26.9,adult 09/01/2017 ??? Anxiety 05/11/2017 Past Medical History: has a past medical history of Alcohol abuse, Anxiety, Asthma, Nava's palsy, Bronchitis, COPD (chronic obstructive pulmonary disease) (HCC), Depression, Heart palpitations, Panic attack, Sleep difficulties, and Suicide attempt ([facility]) (09/2018). Past Surgical History: has no past surgical history on file. Family History: family history includes Anxiety disorder in her mother; Heart Attack in her maternal grandfather; Hypertension in her father; Other-comment in her sister; Seizures in her brother. Social History: reports that she has been smoking cigarettes. She has never used smokeless tobacco. She reports current alcohol use of about 3.0 oz per week. She reports that she does not currently use drugs. Allergies: Allergies Description Type Start Date End Date Comment Verified Lab Technician Doxycycline Allergy 01-Jun-2018 Severity: Medium Reactions: Trell Castro MD (Emergency Medicine) Sulfamethoxazole-Trimethoprim Allergy 29-Jul-2018 Reactions: Amaya Gutierrez APRN, CNP (Advanced Practice Nurse) Medication List: Current Outpatient Medications Medication Sig Dispense Refill ??? albuterol 108 (90 Base) MCG/ACT Aerosol Solution INHALE 1-2 PUFFS BY MOUTH EVERY 4 HOURS NEEDED FOR WHEEZING OR COUGH 6.7 g 1 ??? amoxicillin-clavulanate (AUGMENTIN) 875-125 MG Tablet Take 1 Tablet by mouth 2 times daily for 10 days. 20 Tablet 0 ??? fenofibrate 160 MG Tablet Take [...] for this visit. Review of Systems Constitutional: negative Eyes: negative Ears, nose, mouth, throat, and face: negative Respiratory: negative Cardiovascular: negative Gastrointestinal: negative Genitourinary:negative Integument/breast: negative Hematologic/lymphatic: negative Musculoskeletal:negative Neurological: negative Behvioral/Psych: negative Endocrine: negative Allergic/Immunologic: Allergies Allergen Reactions ??? Doxycycline Rash ??? Bactrim [Sulfamethoxazole-Trimethoprim] Rash Objective: Vitals: Blood pressure 124/70, pulse 82, temperature 97.9 ??F (36.6 ??C), resp. rate 14, height 5' 2 (1.575 m), weight 146 lb (66.2 kg), SpO2 98 %. Gen/Constitutional: No distress HEENT: Normocephalic, atraumatic. PERRLA, No oropharyngeal lesions or masses, external ears and nose shows no lesions or scars. Pupils reacted to light Neck: Supple, no JVD, no lymphadenopathy, no thyromegaly, no carotid bruits, no stridor, trachea midline Chest: non tender to palpation, without deformity Respiratory: No wheezing Heart: Regular rate and rhythm, no murmurs, clicks, gallops, or rubs, radial pulses bilaterally equal Abd: Soft, nontender, bowel sounds present, no hepatosplenomegaly. Ext: No edema Neuro: Alert, Oriented to person, place and time. Normal mood and affect. Skin: Warm and dry, without lesions Musculoskeletal: Normal gait and station, strength equal and normal and full ROM in all 4 extremities Assessment & Plan: ICD-10-CM 1. Moderate persistent asthma without complication J45.40 2. Mild persistent asthma with exacerbation J45.31 PULMONARY REFERRAL COMPLETE PFT W + W/O BRONCHODILATOR 3. Simple chronic bronchitis (HCC) J41.0 4. Tobacco use disorder F17.200 Plan: PFT's Smoking cessation Albuterol as needed Return in about 3 months (around 10/26/2023). Documentation for this visit on July 26 was completed using a template. I have seen and examined the patient. Everything documented was personally performed at this visit with the necessary additions, deletions and changes made as appropriate. Arnold Roberts MD 07/26/2023 2:29 PM CDT * Amaya Welch - 07/26/2023 2:15 PM CDT Irma Seymour was provided education materials regarding smoking cessation as noted on the After Visit Summary. Counseling Given and Ready to Quit Calix are updated in the Social History. documented in this encounter Plan of Treatment Upcoming Encounters Date Type Department Care Team (Late st Contact Info) Description 03/21/2025 4:30 PM CDT Office Visit [facility] - Primary Care - [place] [address] [place] [address] Shravan Burgos, PAC [address] [place] [address] documented as of this encounter [...] making a change Department associated with goal: [facility] Steps to achieve [...] make a change Department associated with goal: [facility] Steps to achieve [...] documented as of this encounter Results * Complete PFT W + W/O Bronchodilator (08/10/2023) FVC 3.27 L FVC %Predicted 107 % FVC Post-Bronchodila tor NA (L) FEV1 2.70 L FEV1 %Predicted 105 % FEV1 Post-Bronchodila tor NA (L) FEV1/FVC 100 % FEF 25-75% 2.88 L/sec TLC 3.6 L TLC %Predicted 77 (Pleth) (L) RV 0.32 L RV %Predicted 20 (Pleth) (L) Airway Resistance 2.26 cmH2O/L/s DLCO 18.01 ml/min/mmH g DLCO %Predicted 76 (ml/min/mm Hg) Arnold Roberts MD PFT ORDERABLES Final Result documented in this encounter Visit Diagnoses Diagnosis Moderate persistent asthma without complication- Primary Unspecified asthma Mild persistent asthma with exacerbation Unspecified asthma, with exacerbation Simple chronic bronchitis (HCC) Simple chronic bronchitis Tobacco use disorder documented in this encounter Additional Health Concerns Assessment Noted Time PHQ-9 Depression Total Score: 13 04/16/ 020 2:00 PM CDT documented as of this encounter Care Teams Cooperer Relationship Specialty Start Date End Date Sravani Ramsay MD [address] [place] [address] PCP - General Family Medicine 04/23/23 12/30/23 Arnold Roberts MD [address] [place] [address] Consulting Physician Pulmonary Disease 07/26/23 documented as of this encounter
--- OUTSIDE RECORDS SUMMARY | 2024-11-30 17:11 | XMS_ITS | Encounter Summary ---
Author Organization [facility] Address [address] [address] Phone Care Team Providers Care Hospitality Associate Name Role Phone Sravani Ramsay MD Primary Care Provider Arnold Roberts MD Unavailable Reason for Visit * Reason Comments Medication Refill Encounter Details Date Type Department Care Team (Late st Contact Info) Description 08/11/2023 Refill [facility] - Primary Care - [place] [address] [place] [address] Sravani Ramsay MD [address] [place] [address] Medication Refill Social History Tobacco [...] encounter Miscellaneous Notes * Telephone Encounter - Sravani Ramsay MD - 08/11/2023 4:20 PM CDT Refill request approved. * Telephone Encounter - Shena Romo RN - 08/11/2023 10:20 AM CDT Medication failed the protocol, provider to review and approve the medication order if appropriate. Requested Prescriptions Pending Prescriptions Disp Refills LORazepam (ATIVAN) 0.5 MG Tablet [Pharmacy Med Name: LORAZEPAM 0.5 MG TABLET] 60 Tablet 0 Sig: TAKE 1 TABLET BY MOUTH TWICE A DAY NEEDED FOR ANXIETY Not Delegated - Benzodiazepines Protocol Failed - 08/11/2023 10:12 AM Failed - This refill cannot be delegated Passed - Visit with relevant provider in past 12 months or upcoming 90 days Recent Visits Date Type Provider Dept 04/23/23 Office Visit Sravani Ramsay MD [facility] 11/26/22 Office Visit Shravan Burgos, PAPI [facility] 11/16/22 Office Visit Amaya Kowalski, MEGAN, LEAD ELECTRICIAN [facility] 08/12/22 Office Visit Sravani Ramsay MD [facility] Showing recent visits within past 365 days and meeting all other requirements Future Appointments No visits were found meeting these conditions. Showing future appointments within next 90 days and meeting all other requirements * Telephone Encounter - Shena Romo RN - 08/11/2023 10:19 AM CDT Per [place] PDMP last fill date 07/12/23. documented in this encounter Plan of Treatment Upcoming Encounters Date Type Department Care Team (Late st Contact Info) Description 03/21/2025 4:30 PM CDT Office Visit [facility] - Primary Care - [place] [address] [place] [address] Shravan Burgos PAC [address] [place] [address] documented as of this encounter Goals Goal Patient Goal Type Associated Problems Recent Progress Patient-Stated? Author Behavioral Health Behavioral Health On track(2019 9:50 AM CDT) Yes Elosie Jenkins LCPC Note: Irma reported her goal for psychotherapy is to help me be able to deal with things in the present and in her past that are contributing to low and anxious mood. Goal Reviewed with: patient Readiness to change: Thinking about making a change Department associated with goal: [facility] Steps to [...] make a change Department associated with goal: [facility] Steps [...] documented as of this encounter Care Teams Hospitality Associate Relationship Specialty Start Date End Date Sravani Ramsay MD [address] [place] [address] PCP - General Family Medicine 04/23/23 12/30/23 Arnold Roberts MD [address] [place] [address] Consulting Physician Pulmonary Disease 07/26/23 documented as of this encounter
--- OUTSIDE RECORDS SUMMARY | 2024-11-30 17:11 | XMS_ITS | Encounter Summary ---
Author Organization [employer] Care Team Providers Care Roll Mechanic Name Role Phone Sravani Ramsay MD Primary Care Provider [phone] Arnold Roberts MD Unavailable Encounter Details Date Type Department Care Team (Latest Contact Info) Description 07/26/2023 Travel Social History Tobacco Use Types Packs/Day [...] Description 03/21/2025 4:30 PM CDT Office Visit [facility] - Primary Care - [place] [address] [place] [address] Shravan Burgos, PAC [address] [place] [address] documented as of this encounter Goals Goal Patient Goal Type Associated Problems Recent Progress Patient-Stated? Author Behavioral [facility] Behavioral Health On track(2019 9:50 AM [...] documented as of this encounter Care Teams Roll Mechanic Relationship Specialty Start Date End Date Sravani Ramsay MD [address] [place] [address] PCP - General Family Medicine 04/23/23 12/30/23 Arnold Roberts MD [address] [place] [address] Consulting Physician Pulmonary Disease 07/26/23 documented as of this encounter
--- OUTSIDE RECORDS SUMMARY | 2024-11-30 17:11 | XMS_ITS | Encounter Summary ---
Author Organization [facility] Address [address] [place] [address] Phone Care Team Providers Care Custodial Engineer Name Role Phone Sravani Ramsay MD Primary Care Provider [phone] Reason for Visit * Reason Onset Date Comments Results 07/16/2023 Urinary Problem 07/16/2023 Encounter Details Date Type Department Care Team (Late st Contact Info) Description 07/16/2023 Nurse Triage [facility] [address] [place] [address] Sravani Ramsay MD [address] [place] [address] Results; Urinary Problem Social History Tobacco Use Types Packs/Day Years [...] suspected to have Coronavirus/COVID-19? No / Unsure 07/14/2023 4:02 PM CDT documented as of this encounter Miscellaneous Notes * Telephone Encounter - Latia Garcia RN - 07/16/2023 1:23 PM CDT Iram notified, verbalized understanding. Would like order for A1c faxed to [facility] at [phone]. Order faxed to [facility] with success. * Telephone Encounter - Latia Garcia RN - 07/16/2023 1:18 PM CDT ----- Message from Sravani Ramsay MD sent at 07/16/2023 1:17 PM CDT ----- Patient continues to have the same low-grade urinary tract infection as a month ago but she is now spilling glucose in her urine I will retreat this infection and also order a hemoglobin A1c. * Telephone Encounter - Misti Valentin RN - 07/16/2023 10:25 AM CDT SITUATION: Urinary symptoms, frequency, flank pain BACKGROUND: It has been a week now ASSESSMENT: Reports: Urinary frequency Back pain that radiated down to hip Eating and drinking fine Denies: Cold, pale clammy skin unable to urinate >4 hour and bladder feels very full Odor in urine Temp: denies Treatment / Response: Ibuprofen RECOMMENDATION: See care advice and disposition for Guideline First positive answer recorded, all responses to prior questions were negative. If symptoms increase, change or if new symptoms develop, call your HCP or call back. Recommendations were based on caller information and is not a diagnosis. Verified and reviewed all triage information with caller. Reason for Disposition ??? Side (flank) or lower back pain present Protocols used: URINARY [id number] Disposition: See in office today. Offered an appointment for patient but declines due to work hours issue. Advised to go to prompt care and declines. Patient had a urine test done on 07/14/23. Patient is requesting for a medication be called in to her pharmacy. Assistive devices verified. Medications, allergies, and pharmacy reviewed. Please advise and notify patient with recommendation. You may leave message per patient. documented in this encounter Plan of Treatment Upcoming Encounters Date Type Department Care Team (Late st Contact Info) Description 03/21/2025 4:30 PM CDT Office Visit [facility] - Primary Care - [place] [address] [place] [address] Shravan Burgos PAC [address] [place] [address] documented as of this encounter Goals Goal Patient Goal Type Associated Problems Recent Progress Patient-Stated? Author Behavioral Health Behavioral Health On track(2019 9:50 AM CDT) Yes Eloise Jenkins, [facility] Note: Irma reported her goal for psychotherapy is to help me be able to deal with things in the present and in her past that are contributing to low and anxious mood. Goal Reviewed with: patient Readiness to change: Thinking about making a change Department associated with goal: [facility] Steps to [...] track(2019 9:50 AM CDT) No Eloise Jenkins, [facility] Note: Irma will engage in a plan of action to improve emotional and mental wellbeing. Goal Reviewed with: patient Readiness to change: Not yet ready to make a change Department associated with goal: [facility] Steps to [...] documented as of this encounter Care Teams Custodial Engineer Relationship Specialty Start Date End Date Sravani Ramsay MD [address] [place] [address] PCP - General Family Medicine 04/23/23 12/30/23 documented as of this encounter
--- OUTSIDE RECORDS SUMMARY | 2024-11-30 17:11 | XMS_ITS | Encounter Summary ---
Author Organization [employer] Care Team Providers Care Survey Technologist Name Role Phone Sravani Ramsay MD Primary Care Provider [phone] Arnold Roberts MD Unavailable Encounter Details Date Type Department Care Team (Latest Contact Info) Description 08/10/2023 Travel Social History Tobacco Use Types Packs/Day [...] Office Visit [facility] - Primary Care - [place] [address] [place] [address] Shravan Burgos, PAPI [address] [place] [address] documented as of this encounter Goals Goal Patient Goal Type Associated Problems Recent Progress Patient-Stated? Author Behavioral [facility] Behavioral Health On track(2019 9:50 AM CDT) Yes Eloise Jenkins LCPC Note: Irma reported her goal for psychotherapy is to help me be able to deal with things in the present and in her past that are contributing to low and anxious mood. Goal Reviewed with: patient Readiness to change: Thinking about making a change Department associated with goal: [facility] Steps [...] a change Department associated with goal: [facility] Steps [...] as of this encounter Care Teams Survey Technologist Relationship Specialty Start Date End Date Sravani Ramsay MD [address] [place] [address] PCP - General Family Medicine 04/23/23 12/30/23 Arnold Roberts MD [address] [place] [address] Consulting Physician Pulmonary Disease 07/26/23 documented as of this encounter
--- OUTSIDE RECORDS SUMMARY | 2024-11-30 17:11 | XMS_ITS | Encounter Summary ---
Author Organization [facility] Address [address] [place] [address] Phone Care Team Providers Care Beehive Kiln Charcoal Burner Name Role Phone Sravani Ramsay MD Primary Care Provider [phone] Encounter Details Date Type Department Care Team ([facility] st Contact Info) Description 07/22/2023 4:00 PM CDT Lab [facility] - Primary Care - [address] [address] Lab, [facility] Dysuria Discharge Disposition: Discharged to home or [...] PM CDT documented as of this encounter Progress Notes * Patti Weaver - 07/22/2023 4:00 PM CDT ua sent to [facility] documented in this encounter Plan of Treatment Upcoming Encounters Date Type Department Care Team (Late st Contact Info) Description 03/21/2025 4:30 PM CDT Office Visit [facility] - Primary Care - [place] [address] [place] [address] Shravan Burgos PAC [address] [place] [address] documented as of this encounter Goals Goal Patient Goal Type Associated Problems Recent Progress Patient-Stated? Author Behavioral Health Behavioral Health On track(2019 9:50 AM CDT) Yes Eloise Jenkins, POST OFFICE MARKUP CLERK Note: Irma reported her goal for psychotherapy is to help me be able to deal with things in the present and in her past that are contributing to low and anxious mood. Goal Reviewed with: patient Readiness to change: Thinking about making a change Department associated with goal: [facility]IORAL HE[facility] SERVICES Steps to [...] On track(2019 9:50 AM CDT) Eloise Mix POST OFFICE MARKUP CLERK Note: Irma will engage in a plan of action to improve emotional and mental wellbeing. Goal Reviewed with: patient Readiness to change: Not yet ready to make a change Department associated with goal: [facility] Steps to [...] Procedure Name Priority Date/Time Associated Diagnosis Comments URINALYSIS REFLEX IF INDICATED BY ABNORMAL RESULTS Routine 07/22/2023 3:54 PM CDT Dysuria CULTURE, URINE Routine 07/22/2023 3:54 PM CDT Dysuria documented in this encounter Results * CULTURE, URINE (07/22/2023 3:54 PM CDT) CULTURE RESULTS NO GROWTH WITHIN 1 DAY 07/24/2023 11:45 AM CDT [facility] Urine URINE SPECIMEN COLLECTION, CLEAN CATCH / Unknown Non-Phlebotomy Collection / Unknown 07/22/2023 3:54 PM CDT 07/22/2023 3:54 PM CDT us Sravani Ramsay MD MICROBIOLOGY - GENERAL ORDER MARK Final Result [facility] [address] [place] [address], * (ABNORMAL) URINALYSIS REFLEX IF INDICATED BY ABNORMAL RESULTS (07/22/2023 3:54 PM CDT) SPECIFIC GRAVITY 1.005 1.003 - 1.030 07/23/2023 8:49 AM CDT [facility] URINE PH 6.0 5.0 - 9.0 07/23/2023 8:49 AM CDT [facility] WBC ESTERASE 25 /ul(A) Negative 07/23/2023 8:49 AM CDT [facility] NITRITE Negative Negative 07/23/2023 8:49 AM CDT [facility] PROTEIN, RANDOM URINE 15 mg/dL(A) Negative 07/23/2023 8:49 AM CDT [facility] URINE GLUCOSE, QUAL Negative Negative 07/23/2023 8:49 AM CDT [facility] URINE KETONES Negative Negative 07/23/2023 8:49 AM CDT [facility] UROBILINOGEN Normal Normal mg/dL 07/23/2023 8:49 AM CDT [facility] URINE BLOOD Negative Negative papi/ul 07/23/2023 8:49 AM CDT [facility] URINALYSIS COLOR Yellow 07/23/20 8:49 AM CDT [facility] URINALYSIS CLARITY Clear 07/23/2023 8:49 AM CDT [facility] WBC (Urine) 0-5 Negative, 0-5 /hpf 07/23/2023 8:49 AM CDT [facility] URINE RBC'S Negative Negative, 0-2 /hpf 07/23/2023 8:49 AM CDT [facility] EPITHELIAL CELLS Large amount squamous /lpf 07/23/2023 8:49 AM CDT [facility] BACTERIA, URINE Few(A) Negative /hpf 07/23/2023 8:49 AM CDT [facility] Urine URINE SPECIMEN COLLECTION, CLEAN CATCH / Unknown Non-Phlebotomy Collection / Unknown 07/22/2023 3:54 PM CDT 07/22/2023 3:54 PM CDT us Sravani Ramsay MD URINE ORDERABLES Final Resul t [facility] [address] [place] [address] documented in this encounter Visit Diagnoses Diagnosis Dysuria documented in this encounter Additional Health Concerns Assessment Noted Time PHQ-9 Depression Total Score: 13 020 2:00 PM CDT documented as of this encounter Care Teams Beehive Kiln Charcoal Burner Relationship Specialty Start Date End Date Sravani Ramsay MD [address] [place] [address] PCP - General Family Medicine 04/23/23 12/30/23 documented as of this encounter
--- OUTSIDE RECORDS SUMMARY | 2024-11-30 17:11 | XMS_ITS | Encounter Summary ---
Author Organization [facility] Address [address] [facility] [place] [address] Phone Care Team Providers Care Block Chopper Hand Name Role Phone Sravani Ramsay MD Primary Care Provider [phone] Arnold Roberts MD Unavailable Reason for Referral * Other (Routine) - Closed Specialty Diagnoses / Procedures Referred By Contac t Referred To Contact Pulmonology Diagnoses Mild persistent asthma with exacerbation Procedures COMPLETE PFT W + W/O BRONCHODILATOR Arnold Roberts MD [address] [place] [address] Phone: tel: fax: Referral ID Status Reason Start Date Expiration Date Visits Re quested Visits Authorized [id number] Closed 07/26/2023 1 1 Reason for Visit * Other (Routine) - Closed Specialty Diagnoses / Procedures Referred By Contangélica remy Referred To Contact Pulmonology Diagnoses Mild persistent asthma with exacerbation Procedures COMPLETE PFT W + W/O BRONCHODILATOR Arnold Roberts MD [address] [place] [address] Phone: tel: fax: Referral ID Status Reason Start Date Expiration Date Visits Re quested Visits Authorized [id number] Closed 07/26/2023 1 1 Encounter Details Date Type Department Care Team (Latest Contact Info) Description 08/10/2023 4:00 PM CDT - 08/10/2023 11:59 PM CDT Hospital Encounter [facility] Respiratory Therapy [address] [place] [address] Arnold Roberts MD [address] [place] [phone] Discharge Disposition: Discharged to home or Selfcare [...] PM CDT documented as of this encounter Medications at Time of Discharge ibuprofen (MOTRIN) 200 MG Tablet Take 3 Tabs by mouth every 6 hours as needed for Fever. 20 Tab 12/26/2018 Respiratory Therapy Supplies (NEBULIZER) Device Use 4x/day prn. 1 Each 02/14/2019 Respiratory Therapy Supplies (NEBULIZER/TUBIN G/MOUTHPIECE) Kit Use 4 times daily prn 1 Each 02/16/2019 albuterol 108 (90 Base) MCG/ACT Aerosol Solution INHALE 1-2 PUFFS BY MOUTH EVERY 4 HOURS NEEDED FOR WHEEZING OR COUGH 6.7 g 1 09/17/2022 4 fenofibrate 160 MG TabletIndication s:Hypertriglycer idemia Take 1 Tablet by mouth daily. 90 Tablet 3 06/16/2023 4 ipratropium-albu terol (DUO-NEB) 0.5-2.5 (3) MG/3ML Solution INHALE 1 VIAL VIA NEBULIZER FOUR TIMES DAILY 360 mL 11 09/18/2022 4 LORazepam (ATIVAN) 0.5 MG TabletIndication s:Anxiety TAKE 1 TABLET BY MOUTH TWICE A DAY NEEDED FOR ANXIETY 60 Tablet 07/12/2023 3 Symbicort 160-4.5 MCG/ACT AerosolIndicatio ns:Bronchitis INHALE TWO PUFFS BY MOUTH TWO TIMES A DAY 10.2 g 1 01/11/2023 4 documented as of this encounter Procedure Notes * Arnold Roberts MD - 08/10/2023 11:59 PM CDT PULMONARY TEST Admit: 08/10/2023 CSN: [id number] Dictating Provider: [id number] Arnold Roberts MD DATE OF STUDY: 08/10/2023 FVC is 107% of predicted. FEV1 is 105% of predicted. FEV1/FVC is 83. There is no post bronchodilator spirometry done. Total lung capacity is 77% predicted. Upper airway resistance is increased. Diffusion capacity is minimally reduced. Good patient effort was seen. Flow volume loop is consistent with spirometry. Compared to the pulmonary function test in the past, there is no significant change. INTERPRETATION: No evidence of airways obstruction, minimal airways restriction. Diffusion capacity is minimally reduced. NA/MODL /[id number] documented in this encounter Plan of Treatment Upcoming Encounters Date Type Department Care Team (Late st Contact Info) Description 03/21/2025 4:30 PM CDT Office Visit [facility] - Primary Care - [place] [address] [place] [address] Shravan Burgos, PAC [address] [place] [address] documented as of this encounter Goals Goal Patient Goal Type Associated Problems Recent Progress Patient-Stated? Author [facility] On track(2019 9:50 AM CDT) Yes [...] and past) that trigger mood concerns. Behavioral [facility] Behavioral Health On track(2019 9:50 AM [...] Procedure Name Priority Date/Time Associated Diagnosis Comments COMPLETE PFT W + W/O BRONCHODILATOR Routine 08/10/2023 Mild persistent asthma with exacerbation documented in this encounter Results * Complete PFT W [...] documented in this encounter Visit Diagnoses Diagnosis Mild persistent asthma with exacerbation Unspecified asthma, with exacerbation documented in this encounter Additional Health Concerns Assessment Noted Time PHQ-9 Depression Total Score: 13 020 2:00 PM CDT documented as of this encounter Care Teams Block Chopper Hand Relationship Specialty Start Date End Date Sravani Ramsay MD [address] [place] [address] PCP - General Family Medicine 04/23/23 12/30/23 Arnold Roberts MD [address] [place] [address] Consulting Physician Pulmonary Disease 07/26/23 documented as of this encounter
--- OUTSIDE RECORDS SUMMARY | 2024-11-30 17:12 | XMS_ITS | Encounter Summary ---
Author Organization [facility] Address [address] [place] [address] Phone Care Team Providers Care Traveling Clerk Name Role Phone Sravani Ramsay MD Primary Care Provider [phone] Reason for Visit * Reason Comments Urinary Tract Infection Encounter Details Date Type Department Care Team (Latest Contact Info) Description 06/24/2023 4:45 PM CDT [facility] [place] [address] [place] [address] Jaz Amin, BARBERING TEACHER, TRIMMER OPERATOR THREE KNIFE [address] [place] [address] Urinary problem (Primary Dx) Discharge Disposition: Discharged to home [...] suspected to have Coronavirus/COVID-19? No / Unsure 06/24/2023 3:53 PM CDT documented as of this encounter Last Filed Vital Signs Vital Sign Reading Time Taken Comments Blood Pressure 118/78 06/24/2023 4:50 PM CDT Pulse 89 06/24/2023 4:50 PM CDT Temperature 36.9 ??C (98.4 ??F) 06/24/2023 4:50 PM CD T Respiratory Rate 18 06/24/2023 4:50 PM CDT Oxygen Saturation 98% 06/24/2023 4:50 PM CDT Inhaled Oxygen Concentration - - Weight 63.5 kg (140 lb) 06/24/2023 4:50 PM CDT Height - - Body Mass Index 25.61 06/16/2023 4:08 PM CDT documented in this encounter Patient Instructions * Patient Instructions* Jaz Amin APRN, CNP - 06/24/2023 4:45 PM CDT Drink fluids Care as instructed on AVS If medication was prescribed it was sent to the pharmacy. Take all medication as prescribed. Do not skip a dose and take until completed. Follow up with PCP if the symptoms do not improve Go to the ER if symptoms become severe documented in this encounter Progress Notes * Ana Gonzalez RMA - 06/24/2023 4:45 PM CDT Irma Seymour complains of Pt is being seen for possible uti. Pt was diagnosed with a uti on 06-11 and was given antibiotics and wanted to be revaluated. Today's Review of Systems Musculoskeletal: Positive for back pain. * Jaz Amin, MEGAN, TRIMMER OPERATOR THREE KNIFE - 06/24/2023 4:45 PM CDT HPI: Irma Seymour is a 43 y.o. female in the prompt care today for uti. Symptoms started 7-14 days ago. 06/11 she had a positive UA and was started on Macrobid. Severity of symptoms is mild Associated symptoms include back pain Patient is currently taking over the counter nothing for the symptoms. Smoker: Yes No pertinent Past, family, or social history was noted Patient Active Problem List Diagnosis ??? Anxiety ??? BMI 26.0-26.9,adult ??? Chronic bronchitis (HCC) ??? Lung infiltrate ??? Tobacco use disorder ??? Other chronic sinusitis ??? Leukocytosis ??? Facial asymmetry ??? Apical abscess ROS: Review of Systems Constitutional: Negative for chills and fever. Genitourinary: Positive for dysuria (resolving). Negative for flank pain, frequency, hematuria, pelvic pain and urgency. Neurological: Positive for headaches (frontal). PE: BP 118/78 (BP Location: Right Arm, BP Position: Sitting, BP Cuff Size: Regular) Pulse 89 Temp 98.4 ??F (36.9 ??C) (Temporal) Resp 18 Wt 140 lb (63.5 kg) SpO2 98% BMI 25.61 kg/m?? Physical Exam Vitals and nursing note reviewed. Constitutional: General: She is not in acute distress. Appearance: Normal appearance. She is normal weight. She is not ill-appearing. HENT: Head: Normocephalic and atraumatic. Cardiovascular: Rate and Rhythm: Normal rate. Pulmonary: Effort: Pulmonary effort is normal. No respiratory distress. Musculoskeletal: Cervical back: Normal range of motion and neck supple. Skin: General: Skin is warm and dry. Neurological: Mental Status: She is alert and oriented to person, place, and time. ASSESSMENT/PLAN: 1. Urinary problem - POCT UA AUTOMATED W/O MICRO - Increase the amount of fluids that you are drinking. Water, Pedialyte, Gatorade or Powerade are the best choices. Rest or nap frequently to help your body recover. AVS from today was printed, discussed with patient/family and given to patient/family Patient Instructions Drink fluids Care as instructed on AVS If medication was prescribed it was sent to the pharmacy. Take all medication as prescribed. Do not skip a dose and take until completed. Follow up with PCP if the symptoms do not improve Go to the ER if symptoms become severe Chief complaint and all history documented by ancillary staff were reviewed and verified, with additions or corrections, as appropriate. documented in this encounter Plan of Treatment Upcoming Encounters Date Type Department Care Team (Late st Contact Info) Description 03/21/2025 4:30 PM CDT Office Visit [facility] - Primary Care - [address] [place] [phone] Shravan Burgos PAC [address] [place] [address] documented as of this encounter Goals Goal [...] making a change Department associated with goal: [facility]AVIOR[facility] Steps to achieve [...] On track(2019 9:50 AM CDT) Eloise Mix HOUSE REGISTRY RN Note: Irma will engage in a plan of action to improve emotional and mental wellbeing. Goal Reviewed with: patient Readiness to change: Not yet ready to make a change Department associated with goal: [facility] Steps to achieve [...] Priority Date/Time Associated Diagnosis Comments POCT UA AUTOMATED W/O MICRO Routine 06/24/2023 4:14 PM CDT Urinary problem documented in this encounter Results * (ABNORMAL) POCT UA AUTOMATED W/O MICRO (06/24/2023 4:14 PM CDT) POC UA SPECIFIC GRAVITY <=1.005 URINE PH 7.0 5.0 - 9.0 POC URINE LEUKOCYTES 25 /ul(A) Negative Eunice/uL POC URINE NITRITE Negative Negative POC URINE PROTEIN Negative Negative mg/dL POC URINE GLUCOSE Norm Negative, Norm mg/dL POC URINE KETONE Negative Negative mg/dL POC URINE UROBILINOGEN Norm Norm, 0.2 E.U./dL (mg/dL), 1 E.U./dL (mg/dL) POC URINE BILIRUBIN Negative Negative mg/dL POC URINE BLOOD INSTRUMENT Negative Negative Ashkan/uL POC URINE COLOR Light yellow POC URINE CLARITY Clear Urine 06/24/2023 4:14 PM CDT Jaz Amin BARBERING TEACHER, TRIMMER OPERATOR THREE KNIFE POINT OF CARE TESTI CHON (MANUAL) Final Result documented in this encounter Visit Diagnoses Diagnosis Urinary problem- Primary Other urinary problems documented in this encounter Additional Health Concerns Assessment Noted Time PHQ-9 Depression Total Score: 13 05/2 020 2:00 PM CDT documented as of this encounter Care Teams Traveling Clerk Relationship Specialty Start Date End Date Sravani Ramsay MD [address] [place] [address] PCP - General Family Medicine 04/23/23 12/30/23 documented as of this encounter
--- OUTSIDE RECORDS SUMMARY | 2024-11-30 17:12 | XMS_ITS | Encounter Summary ---
Author Organization [employer] Care Team Providers Care Printed Circuit Board Drafter Name Role Phone Sravani Ramsay MD Primary Care Provider [phone] Encounter Details Date Type Department Care Team (Latest Contact Info) Description 06/24/2023 Travel Social History Tobacco Use Types Packs/Day [...] Description 03/21/2025 4:30 PM CDT Office Visit [facility] - Primary Care - [place] [place] [address] Shravan Burgos, PAC [address] [place] [address] documented as of this encounter Goals Goal Patient Goal Type Associated Problems Recent Progress Patient-Stated? Author [facility] Behavioral Health On track(2019 9:50 AM CDT) Yes Eloise Jenkins LCPC Note: Irma reported her goal for psychotherapy is to help me be able to deal with things in the present and in her past that are contributing to low and anxious mood. Goal Reviewed with: patient Readiness to change: Thinking about making a change Department associated with goal: [facility] Steps to achieve goal: 1. Irma will attend psychotherapy, at minimum twice a month. 2. Irma will identify and explore atleast three incidents/experiences of current stressors, past trauma and family dynamics that contribute to her mood concerns. 3. Irma will identify at least three ways/skills to heal and cope with the experiences (current and past) that trigger mood concerns. Behavioral [facility] Behavioral Health On track(2019 9:50 AM CDT) No Eloise Jenkins LCPC Note: Irma will engage in a plan of action to improve emotional and mental wellbeing. Goal Reviewed with: patient Readiness to change: Not yet ready to make a change Department associated with goal: [facility] Steps to achieve goal: [...] documented as of this encounter Care Teams Printed Circuit Board Drafter Relationship Specialty Start Date End Date Sravani Ramsay MD [address] [place] [address] PCP - General Family Medicine 04/23/23 12/30/23 documented as of this encounter
--- OUTSIDE RECORDS SUMMARY | 2024-11-30 17:12 | XMS_ITS | Encounter Summary ---
Author Organization [facility] Address [address] [place] [address] Phone Care Team Providers Care Configuration Management Specialist Name Role Phone Sravani Ramsay MD Primary Care Provider [phone] Reason for Referral * Consult, Test & Initiate Treatment (Routine) - Closed Specialty Diagnoses / Procedures Referred By Claudio remy Referred To Contact Pulmonology Diagnoses Mild persistent asthma with exacerbation Sravani Ramsay MD Phone: tel: fax: [facility] - Pulmonology & Sleep Medicine [facility] [place] [address] Phone: tel: fax: Referral ID Status Reason Start Date Expiration Date Visits Re quested Visits Authorized [id number] Closed 06/24/2023 1 1 Scheduling Instructions Irma is being referred for evaluation for pulmonary function studies. Please contact patient for scheduling questions or concerns. Reason for Visit * Reason Onset Date Comments Referral 06/24/2023 Encounter Details Date Type Department Care Team ([facility] st Contact Info) Description 06/24/2023 Telephone [facility] - Primary Care - [place] [address] Sravani Ramsay MD [address] [place] [address] Referral Social History Tobacco Use Types Packs/Day [...] suspected to have Coronavirus/COVID-19? No / Unsure 06/16/2023 4:04 PM CDT documented as of this encounter Miscellaneous Notes * Telephone Encounter - Latia Garcia, RN - 06/24/2023 2:08 PM CDT Received message from pulmonology that they cannot process referral with diagnosis of tobacco use disorder and they will need a new referral with updated dx code. Order placed. documented in this encounter Plan of Treatment Upcoming Encounters Date Type Department Care Team (Late st Contact Info) Description 03/21/2025 4:30 PM CDT [facility] - [address] [place] [phone] Shravan Burgos, PAC [address] [place] [address] Scheduled Referrals Name Type Priority Associated Diagnoses Orde r Schedule PULMONARY REFERRAL Outpatient Referral Routine Mild persistent asthma with exacerbation Expected: 06/24/2023, Expires: 06/24/2024 documented as of this encounter Goals Goal Patient Goal Type Associated Problems Recent Progress Patient-Stated? Author Behavioral [facility] Behavioral Health On track(2019 9:50 AM [...] and past) that trigger mood concerns. Behavioral [facility] Behavioral Health On track(2019 9:50 AM [...] documented as of this encounter Care Teams Configuration Management Specialist Relationship Specialty Start Date End Date Sravani Ramsay MD [address] [place] [address] PCP - General Family Medicine 04/23/23 12/30/23 documented as of this encounter
--- OUTSIDE RECORDS SUMMARY | 2024-11-30 17:12 | XMS_ITS | Encounter Summary ---
Author Organization [employer] Care Team Providers Care Bridge Construction Inspector Name Role Phone Sravani Ramsay MD Primary Care Provider [phone] Encounter Details Date Type Department Care Team (Latest Contact Info) Description 06/16/2023 Travel Social History Tobacco Use Types Packs/Day [...] Description 03/21/2025 4:30 PM CDT Office Visit [facility] - Primary Care - [place] [address] [place] [address] Shravan Burgos, PAC [address] [place] [address] documented as of this encounter Goals Goal Patient Goal Type Associated Problems Recent Progress Patient-Stated? Author [facility] Behavioral Health On track(2019 9:50 AM CDT) Yes Eloise Jenkins LCPC Note: Irma reported her goal for psychotherapy is to help me be able to deal with things in the present and in her past that are contributing to low and anxious mood. Goal Reviewed with: patient Readiness to change: Thinking about making a change Department associated with goal: [facility] BEHAVIORAL HEALTH SERVICES Steps to [...] and past) that trigger mood concerns. Behavioral [facility] Behavioral Health On track(2019 9:50 AM CDT) No Eloise Jenkins LCPC Note: Irma will engage in a plan of action to improve emotional and mental wellbeing. Goal Reviewed with: patient Readiness to change: Not yet ready to make a change Department associated with goal: [facility] BE[facility]AVIORAL [facility] Steps to [...] documented as of this encounter Care Teams Bridge Construction Inspector Relationship Specialty Start Date End Date Sravani Ramsay MD [address] [place] [address] PCP - General Family Medicine 04/23/23 12/30/23 documented as of this encounter
--- OUTSIDE RECORDS SUMMARY | 2024-11-30 17:12 | XMS_ITS | Encounter Summary ---
Author Organization [facility] Address [address] [facility] [place] [address] Phone Care Team Providers Care Chief Diversity Officer Name Role Phone Sravani Ramsay MD Primary Care Provider Reason for Visit * Reason Comments Medication Refill Encounter Details Date Type Department Care Team (Late st Contact Info) Description 07/12/2023 Refill [facility] - [facility] Care - [place] [address] [place] [id number] Sravani Ramsay MD [address] [place] [address] Medication Refill Social History Tobacco [...] Telephone Encounter - Sravani Ramsay MD - 07/12/2023 5:36 PM CDT Refill request approved. * Telephone Encounter - Shena Romo RN - 07/12/2023 4:08 PM CDT Medication failed the protocol, provider to review and approve the medication order if appropriate. Requested Prescriptions Pending Prescriptions Disp Refills LORazepam (ATIVAN) 0.5 MG Tablet [Pharmacy Med Name: LORAZEPAM 0.5 MG TABLET] 60 Tablet 0 Sig: TAKE 1 TABLET BY MOUTH TWICE A DAY NEEDED FOR ANXIETY Not Delegated - Benzodiazepines Protocol Failed - 07/12/2023 4:03 PM Failed - This refill cannot be delegated Passed - Visit with relevant provider in past 12 months or upcoming 90 days Recent Visits Date Type Provider Dept 04/23/23 Office Visit Sravani Ramsay MD [facility] 11/26/22 Office Visit Shravan Burgos PAC [facility] 11/16/22 Office Visit Amaya Kowalski APRN, DOUGLAS [facility] 08/12/22 Office Visit Sravani Ramsay MD [facility] Showing recent visits within past 365 days and meeting all other requirements Future Appointments No visits were found meeting these conditions. Showing future appointments within next 90 days and meeting all other requirements * Telephone Encounter - Shena Romo RN - 07/12/2023 4:06 PM CDT Per [place] PDMP last fill date 06/10/23. documented in this encounter Plan of Treatment Upcoming Encounters Date Type Department Care Team (Late st Contact Info) Description 03/21/2025 4:30 PM CDT [facility] - Primary Care - [place] [address] [place] [phone] Shravan Burgos PAC [address] [place] [address] documented as of this encounter [...] change Department associated with goal: [facility] Steps to [...] change Department associated with goal: [facility] Steps to [...] documented as of this encounter Care Teams Chief Diversity Officer Relationship Specialty Start Date End Date Sravani Ramsay MD [address] [place] [address] PCP - General Family Medicine 04/23/23 12/30/23 documented as of this encounter
--- OUTSIDE RECORDS SUMMARY | 2024-11-30 17:12 | XMS_ITS | Encounter Summary ---
Author Organization [employer] Care Team Providers Care Lab Asst Name Role Phone Sravani Ramsay MD Primary Care Provider Encounter Details Date Type Department Care Team (Latest Contact Info) Description 07/14/2023 Travel Social History Tobacco Use Types Packs/Day [...] Description 03/21/2025 4:30 PM CDT Office Visit [facility] - Primary Care - [place] [address] [place] [address] Shravan Burgos, PAC [address] [place] [address] documented as of this encounter Goals Goal Patient Goal Type Associated Problems Recent Progress Patient-Stated? Author [facility] On track(2019 9:50 AM [...] past) that trigger mood concerns. Behavioral [facility] Behavioral Health On track(2019 9:50 AM [...] documented as of this encounter Care Teams Lab Asst Relationship Specialty Start Date End Date Sravani Ramsay MD [address] [place] [address] PCP - General Family Medicine 04/23/23 12/30/23 documented as of this encounter
--- OUTSIDE RECORDS SUMMARY | 2024-11-30 17:13 | XMS_ITS | Encounter Summary ---
Author Organization [facility] Address [address] [place] [address] Phone Care Team Providers Care Salesforce Administrator Name Role Phone Amaya Kowalski APRN, CNP Primary Care Provider Reason for Visit * Reason Onset Date Comments Results 03/10/2023 UDS Encounter Details Date Type Department Care Team ([facility] Contact Info) Description 03/10/2023 Telephone [facility] - Primary Care - [place] [address] [place] [address] Amaya Kowalski APRN, CNP [address] [place] [address] Results (UDS) Social History Tobacco Use Types Packs/Day Years [...] or the highest degree you have received? Associate degree: academic program 04/16/2020 Sexually Active [employer] Comments Yes I.U.D. [...] suspected to have Coronavirus/COVID-19? No / Unsure 03/05/2023 3:31 PM CDT documented as of this encounter Miscellaneous Notes * Telephone Encounter - Mohini Aguirre RN - 03/10/2023 12:16 PM CDT Urine drug screen results received from [facility]. Placed in PCP inbox for review. documented in this encounter Plan of Treatment Upcoming Encounters Date Type Department Care Team (Late st Contact Info) Description 03/21/2025 4:30 PM CDT Office Visit [facility] - Primary Care - [place] [address] [place] [address] Shravan Burgos PAC [address] [place] [address] documented as of this encounter [...] making a change Department associated with goal: [facility] Steps to achieve [...] make a change Department associated with goal: [facility] Steps to achieve [...] documented as of this encounter Care Teams Salesforce Administrator Relationship Specialty Start Date End Date Amaya Kowalski APRN, COKE PRODUCTION HEATER [address] [place] [address] PCP - General Advanced Practice Nurse 06/10/18 documented as of this encounter
--- OUTSIDE RECORDS SUMMARY | 2024-11-30 17:13 | XMS_ITS | Encounter Summary ---
Author Organization [facility] Address [address] [place] [address] Phone Care Team Providers Care Fruit Or Nut Crops Farm Manager Name Role Phone Sravani Ramsay MD Primary Care Provider [phone] Reason for Visit * Reason Onset Date Comments Labs Only 06/10/2023 Urinary Frequency 06/10/2023 Encounter Details Date Type Department Care Team (Late st Contact Info) Description 06/10/2023 Nurse Triage [facility] [address] [place] [address] Sravani Ramsay MD [address] [place] [address] Labs Only; Urinary Frequency Social History Tobacco Use Types Packs/Day Years [...] encounter Miscellaneous Notes * Addendum Note - Melonie Garcia RN - 06/16/2023 9:33 AM CDTAddended by: MELONIE GARCIA on: 06/16/2023 09:33 AM Modules accepted: Orders * Telephone Encounter - Melonie Garcia RN - 06/16/2023 9:32 AM CDT Irma notified, verbalized understanding. Pharmacy verified. Medication order sent per verbal order received. Still having light headaches and back pain. States is unsure if it is related to UTI. This RN advised to finish antibiotics and if still having symptoms once she has completed them to contact office.Irma agreeable to plan. * Addendum Note - Melonie Garcia RN - 06/15/2023 3:28 PM CDTAddended by: MELONIE GARCIA on: 06/15/2023 03:28 PM Modules accepted: Orders * Telephone Encounter - Melonie Garcia RN - 06/15/2023 3:25 PM CDT Results from 06/11/[address] Ramsay triglycerides are very elevated at 1327. Verbal order received for patient to start fenofibrate 160 mg once daily, #90 with 3 refills. Attempted to contact Irma. No answer, left message to call back. * Addendum Note - Melonie Garcia RN - 06/11/2023 4:24 PM CDTAddended by: MELONIE GARCIA on: 06/11/2023 04:24 PM Modules accepted: Orders * Telephone Encounter - Melonie Garcia RN - 06/11/2023 4:17 PM CDT Verbal order received from Dr. Ramsay for pulmonary referral to evaluate for pulmonology function studies. Order placed. Received UA results from [facility]. Per verbal of Shravan Burgos PA-C urine was positive for leukocytes and bacteria. Verbal order received for Macrobid 100 mg BID for 7 days, #14 with 0 refills. Irma notified, verbalized understanding. * Telephone Encounter - Sravani Ramsay MD - 06/11/2023 3:27 PM CDT While some lab values are somewhat out of the normal range, there is nothing that is terribly worrisome or requires treatment at this time. * Telephone Encounter - Melonie Garcia RN - 06/11/2023 11:31 AM CDT Lab results received from [facility]. Placed in PCP inbox for review. * Telephone Encounter - Tatiana Barroso - 06/11/2023 10:05 AM CDT SITUATION: Urinary frequency BACKGROUND: see complex medical history - patient has had COVID 3 times - has had a urine infectionin past - patient will follow up with sports medicine for back pain as discussed medication allergies and pharmacy update ASSESSMENT: Onset She is not sure if she had the frequency at the appointment Symptom Description -she does notthink she has flank pain but the back pain radiates - she is still tired as discussed at appointment Pain mid lower back pain that is chronic and unchanged Temp: denies fever has had brain fog intermittent since second time she had COVID lmp unknown Treatment / Response: Fluids Last office visit 03/2023 Advised to be seen today but she does not want an appointment - is an appointment advised ? - see below note for lab results She is also asking about Pulmonary function testing order as she wants to schedule this ? She thought this was ordered in March - does she need to follow up with pulmology referral or testing? ( appears this referral was closed ) Call quality was very poor at end of call and patient had to get back to work so not able to complete triage questions RECOMMENDATION: See care advice and disposition for Guideline First positive answer recorded, all responses to prior questions were negative. If symptoms increase, change or if new symptoms develop, call your HCP or call back. Recommendations were based on caller information and is not a diagnosis. Verified and reviewed all triage information with caller. Reason for Disposition ??? Urinating more frequently than usual (i.e., frequency) Answer Assessment - Initial Assessment Questions 1. SYMPTOM: What's the main symptom you're concerned about? (e.g., frequency, incontinence) *No Answer* 2. ONSET: When did the *No Answer* start? *No Answer* 3. PAIN: Is there any pain? If Yes, ask: How bad is it? (Scale: 1-10; mild, moderate, severe) *No Answer* 4. CAUSE: What do you think is causing the symptoms? *No Answer* 5. OTHER SYMPTOMS: Do you have any other symptoms? (e.g., fever, flank pain, blood in urine, painwith urination) Denies 6. : Is there any chance you are ? When was your last menstrual period? *No Answer* Protocols used: URINARY [id number] * Telephone Encounter - Tatiana Barroso - 06/11/2023 10:00 AM CDT S: Patient is at [facility] [employer] [facility] at work now - will fax results to office B: Patient saw lab results on per patient portal and [facility] should be sending them to office - the equipment worker gave patient the fax number and patient will fax results now She has the results now and asking for the results to be treated Vit D is low WBC is high ( and other issues on diff) Sodium is low creatinine low and some other results are off Patient is asking if the labs can be resulted ? Have the results been received per fax ? See triage * Telephone Encounter - Cristin Tolentino RMA - 06/10/2023 3:48 PM CDT Lab orders faxed to [phone]. Patient is aware. * Telephone Encounter - Cristo Johnston - 06/10/2023 3:27 PM CDT RFC: PT is needing to have the orders faxed for her labs so she can get them done at [facility] where she works. As she would like to get them done tomorrow 06/11/23. Fax # [phone] Please call Irma (relationship to patient self) back regarding above referenced patient. Patient's Provideris Dr. Ramsay. documented in this encounter Plan of Treatment Upcoming Encounters Date Type Department Care Team (Late st Contact Info) Description 03/21/2025 4:30 PM CDT Office Visit [facility] - Primary Care - [place] [address] [place] [address] Shravan Burgos, PAC [address] [place] [address] documented as of this encounter Goals Goal Patient Goal Type Associated Problems Recent Progress Patient-Stated? Author Behavioral [facility] Behavioral Health On track(2019 9:50 AM CDT) Yes Eloise Jenkins LCPC Note: Irma reported her goal for psychotherapy is to help me be able to deal with things in the present and in her past that are contributing to low and anxious mood. Goal Reviewed with: patient Readiness to change: Thinking about making a change Department associated with goal: [facility] Steps to achieve [...] and past) that trigger mood concerns. Behavioral [facility] Behavioral Health On track(2019 9:50 AM CDT) No Eloise Jenkins LCPC Note: Irma will engage in a plan of action to improve emotional and mental wellbeing. Goal Reviewed with: patient Readiness to change: Not yet ready to make a change Department associated with goal: [facility] Steps to achieve [...] as of this encounter Visit Diagnoses Diagnosis Tobacco use disorder- Primary Urinary tract infection without hematuria, site unspecified Hypertriglyceridemia Pure hyperglyceridemia documented in this encounter Additional Health Concerns Assessment Noted Time PHQ-9 Depression Total Score: 13 020 2:00 PM CDT documented as of this encounter Care Teams Fruit Or Nut Crops Farm Manager Relationship Specialty Start Date End Date Sravani Ramsay MD [address] [place] [address] PCP - General Family Medicine 04/23/23 12/30/23 documented as of this encounter
--- OUTSIDE RECORDS SUMMARY | 2024-11-30 17:13 | XMS_ITS | Encounter Summary ---
Author Organization [facility] Address [address] [facility] [place] [address] Phone Care Team Providers Care Order Processing Manager Name Role Phone Sravani Ramsay MD Primary Care Provider [phone] Reason for Visit * Reason Comments Medication Refill Encounter Details Date Type Department Care Team (Late st Contact Info) Description 06/09/2023 Refill [facility] - Primary Care - [place] [address] [place] [phone] Sravani Ramsay MD [address] [place] [address] Medication Refill Social History Tobacco [...] Telephone Encounter - Sravani Ramsay MD - 06/10/2023 7:55 AM CDT Refill request approved. * Telephone Encounter - Shena Romo RN - 06/09/2023 2:20 PM CDT Medication failed the protocol, provider to review and approve the medication order if appropriate. Requested Prescriptions Pending Prescriptions Disp Refills LORazepam (ATIVAN) 0.5 MG Tablet [Pharmacy Med Name: LORAZEPAM 0.5 MG TABLET] 60 Tablet 0 Sig: TAKE 1 TABLET BY MOUTH TWICE A DAY NEEDED FOR ANXIETY Not Delegated - Benzodiazepines Protocol Failed - 06/09/2023 2:17 PM Failed - This refill cannot be delegated Passed - Visit with relevant provider in past 12 months or upcoming 90 days Recent Visits Date Type Provider Dept 04/23/23 Office Visit Sravani Ramsay MD [facility] 11/26/22 Office Visit Shravan Burgos, PAC [facility] 11/16/22 Office Visit Amaya Kowalski, TRAINING GENERALIST, BEHAVIORAL HEALTH CONSULTANT [facility] 08/12/22 Office Visit Sravani Ramsay MD [facility] Showing recent visits within past 365 days and meeting all other requirements Future Appointments No visits were found meeting these conditions. Showing future appointments within next 90 days and meeting all other requirements * Telephone Encounter - Shena Romo RN - 06/09/2023 2:20 PM CDT Per [place] last fill date 05/10/23. documented in this encounter Plan of Treatment Upcoming Encounters Date Type Department Care Team (Late st Contact Info) Description 03/21/2025 4:30 PM CDT Office Visit [facility] - Primary Care - [place] [address] [place] [phone] Shravan Burgos, PAC [address] [place] [address] documented as of this encounter Goals Goal Patient Goal Type Associated Problems Recent Progress Patient-Stated? Author Behavioral [facility] Behavioral Health On track(2019 9:50 AM CDT) Yes Eloise Jenkins LCPC Note: Iram reported her goal for psychotherapy is to help me be able to deal with things in the present and in her past that are contributing to low and anxious mood. Goal Reviewed with: patient Readiness to change: Thinking about making a change Department associated with goal: [facility] Steps to [...] make a change Department associated with goal: [facility] Steps to [...] documented as of this encounter Care Teams Order Processing Manager Relationship Specialty Start Date End Date Sravani Ramsay MD [address] [place] [address] PCP - General Family Medicine 04/23/23 12/30/23 documented as of this encounter
--- OUTSIDE RECORDS SUMMARY | 2024-11-30 17:13 | XMS_ITS | Encounter Summary ---
Author Organization [facility] Address [address] [place] [address] Phone Care Team Providers Care Environmental Aid Name Role Phone Amaya Kowalski APRN, CNP Primary Care Provider Reason for Visit * Reason Onset Date Comments Medication Refill 01/26/2023 Encounter Details Date Type Department Care Team ([facility] Contact Info) Description 01/26/2023 MyChart RX Renewal [facility] - Primary Care - [place] [address] [place] [address] Amaya Kowalski APRN, CNP [address] [place] [address] Medication Renewal Declined Social History Tobacco Use Types Packs/Day Years [...] Telephone Encounter - Mohini Aguirre RN - 01/26/2023 11:07 AM COMMUNITY MARKETING COORDINATOR Duplicate request. UNITY MARKETING COORDINATOR documented in this encounter Plan of Treatment Upcoming Encounters Date Type Department Care Team (Late st Contact Info) Description 03/21/2025 4:30 PM CDT Office Visit [facility] - Primary Care - [place] [address] [place] [address] Shravan Burgos PAC [address] [place] [address] documented as of this encounter [...] making a change Department associated with goal: [facility] Steps to achieve goal: [...] make a change Department associated with goal: [facility] Steps to achieve goal: [...] documented as of this encounter Care Teams Environmental Aid Relationship Specialty Start Date End Date Amaya Kowalski APRN, FIRE CHIEF DEPUTY [address] [place] [address] PCP - General Advanced Practice Nurse 06/10/18 documented as of this encounter
--- OUTSIDE RECORDS SUMMARY | 2024-11-30 17:13 | XMS_ITS | Encounter Summary ---
Author Organization [employer] Care Team Providers Care Manager Of Allied Health Services Name Role Phone Amaya Kowalski APRN, HOLDER PILE DRIVING Primary Care Provider Encounter Details Date Type Department Care Team (Latest Contact Info) Description 11/16/2022 Travel Social History Tobacco Use Types Packs/Day [...] suspected to have Coronavirus/COVID-19? No / Unsure 11/16/2022 3:52 PM BARRATTE OPERATOR documented as of this encounter Plan of Treatment Upcoming Encounters Date Type Department Care Team (Late st Contact Info) Description 03/21/2025 4:30 PM CDT Office Visit [facility] - Primary Care - [place] [address] [place] [address] Shravan Burgos, PAC [address] [place] [address] documented as of this encounter Goals Goal Patient Goal Type Associated Problems Recent Progress Patient-Stated? Author [facility] On track(2019 9:50 AM CDT) Yes Eloise Jenkins LCPC Note: Irma reported her goal for psychotherapy is to help me be able to deal with things in the present and in her past that are contributing to low and anxious mood. Goal Reviewed with: patient Readiness to change: Thinking about making a change Department associated with goal: [facility] Steps to achieve goal: 1. Irma will attend psychotherapy, at minimum twice a month. 2. Irma will identify and explore atleast three incidents/experiences of current stressors, past trauma and family dynamics that contribute to her mood concerns. 3. Irma will identify at least three ways/skills to heal and cope with the experiences (current and past) that trigger mood concerns. Behavioral [facility] Behavioral Health On track(2019 9:50 AM CDT) No Eloise Jenkins LCPC Note: Irma will engage in a plan of action to improve emotional and mental wellbeing. Goal Reviewed with: patient Readiness to change: Not yet ready to make a change Department associated with goal: [facility] Steps to achieve goal: [...] documented as of this encounter Care Teams Manager Of Allied Health Services Relationship Specialty Start Date End Date Amaya Kowalski, MEGAN, HOLDER PILE DRIVING [address] [place] [address] PCP - General Advanced Practice Nurse 06/10/18 documented as of this encounter
--- OUTSIDE RECORDS SUMMARY | 2024-11-30 17:13 | XMS_ITS | Encounter Summary ---
Author Organization [facility] Address [address] [place] [address] Phone Care Team Providers Care Bilingual Loan Processor Name Role Phone Amaya Kowalski APRN, CNP Primary Care Provider Reason for Visit * Reason Onset Date Comments Medication Refill 04/06/2023 Encounter Details Date Type Department Care Team ([facility] Contact Info) Description 04/06/2023 MyChart RX Renewal [facility] - Primary Care - [place] [address] [place] [address] Amaya Kowalski APRN, CNP [address] [place] [address] Medication Renewal Reviewed Social History Tobacco Use Types Packs/Day Years [...] Telephone Encounter - Mohini Aguirre RN - 04/06/2023 4:34 PM CDT My Chart message sent to patient. * Telephone Encounter - Shahida Bianchi APRN, CNP - 04/06/2023 4:31 PM CDT Will refill at decreased dose so we can start weaning process as this is not a long-term medicationand should not be taken daily. * Telephone Encounter - Mohini Aguirre RN - 04/06/2023 2:21 PM CDT Medication failed the protocol, provider to review and approve the medication order if appropriate. Requested Prescriptions Pending Prescriptions Disp Refills LORazepam (ATIVAN) 1 MG Tablet 30 Tablet 0 Sig: Take 1 Tablet by mouth 2 times daily as needed for Anxiety. Not Delegated - Benzodiazepines Protocol Failed - 04/06/2023 1:25 PM Failed - This refill cannot be delegated Passed - Visit with relevant provider in past 12 months or upcoming 90 days Recent Visits Date Type Provider Dept 11/26/22 Office Visit Shravan Burgos PAC [facility] [place] [facility] 11/16/22 Office Visit Amaya Kowalski APRN, CNP [facility] 08/12/22 Office Visit Sravani Ramsay MD [facility] [place] [facility] Showing recent visits within past 365 days and meeting all other requirements Future Appointments No visits were found meeting these conditions. Showing future appointments within next 90 days and meeting all other requirements * Telephone Encounter - Mohini Aguirre RN - 04/06/2023 2:14 PM CDT My Chart message sent to patient. documented in this encounter Plan of Treatment Upcoming Encounters Date Type Department Care Team (Late st Contact Info) Description 03/21/2025 4:30 PM CDT Office Visit [facility] - Primary Care - [place] [address] [place] [address] Shravan Burgos PAC [address] [place] [address] documented as of this encounter [...] HEALTH SERVICES Steps to achieve goal: 1. Imra will attend psychotherapy, at minimum twice a [...] documented as of this encounter Care Teams Bilingual Loan Processor Relationship Specialty Start Date End Date Amaya Kowalski, AWAKE OVERNIGHT COUNSELOR, MINT WAFER DEPOSITOR [address] [place] [address] PCP - General Advanced Practice Nurse 06/10/18 documented as of this encounter
--- OUTSIDE RECORDS SUMMARY | 2024-11-30 17:13 | XMS_ITS | Encounter Summary ---
Author Organization [facility] Address [address] [place] [address] Phone Care Team Providers Care Turn Out Worker Name Role Phone Amaya Kowalski APRN, DOUGLAS Primary Care Provider Encounter Details Date Type Department Care Team ([facility] st Contact Info) Description 12/23/2022 3:40 PM SHAREPOINT APPLICATION DEVELOPER Lab [facility] - Primary Care - [address] [phone] Lab, [facility] Discharge Disposition: Discharged to home or Selfcare [...] suspected to have Coronavirus/COVID-19? No / Unsure 12/23/2022 3:33 PM SHAREPOINT APPLICATION DEVELOPER documented as of this encounter Progress Notes * Patti Weaver - 12/23/2022 3:40 PM CST UDS Collected per Amaya Kowalski APN 12/23/2022 and Sent to [facility] EPOINT APPLICATION DEVELOPER documented in this encounter Plan of Treatment Upcoming Encounters Date Type Department Care Team (Late st Contact Info) Description 03/21/2025 4:30 PM CDT Office Visit [facility] - Primary Care - [place] [address] [place] [address] Shravan Burgos, PAPI [address] [place] [address] documented as of this encounter Goals Goal Patient Goal Type Associated Problems Recent Progress Patient-Stated? Author Behavioral Health Behavioral Health On track(2019 9:50 AM CDT) Yes Eloise Jenkins, [facility] Note: Irma reported her goal for psychotherapy is to help me be able to deal with things in the present and in her past that are contributing to low and anxious mood. Goal Reviewed with: patient Readiness to change: Thinking about making a change Department associated with goal: [facility] Steps to [...] track(2019 9:50 AM CDT) No Eloise Jenkins, [facility] Note: Irma will engage in a plan of action to improve emotional and mental wellbeing. Goal Reviewed with: patient Readiness to change: Not yet ready to make a change Department associated with goal: [facility] Steps to [...] documented as of this encounter Care Teams Turn Out Worker Relationship Specialty Start Date End Date Amaya Kowalski, AUTOMOBILE SERVICE STATION ATTENDANT, TERMITE HELPER [address] [place] [address] PCP - General Advanced Practice Nurse 06/10/18 documented as of this encounter
--- OUTSIDE RECORDS SUMMARY | 2024-11-30 17:13 | XMS_ITS | Encounter Summary ---
Author Organization [facility] Address [address] [place] [address] Phone Care Team Providers Care Motorman/Woman Name Role Phone Amaya Kowalski APRN, CNP Primary Care Provider Reason for Visit * Reason Comments Medication Refill Encounter Details Date Type Department Care Team ([facility] st Contact Info) Description 01/24/2023 Refill [facility] - Primary Care - [place] [address] [place] [phone] Clark Archibald MD [address] [place] [address] Medication Refill Social History Tobacco [...] Telephone Encounter - Shravan Burgos PAC - 01/27/2023 4:23 PM CST Rx request approved INTERN * Telephone Encounter - Latia Garcia RN - 01/25/2023 9:15 AM CST Medication failed the protocol, provider to review and approve the medication order if appropriate. Requested Prescriptions Pending Prescriptions Disp Refills LORazepam (ATIVAN) 1 MG Tablet [Pharmacy Med Name: LORAZEPAM 1 MG TABLET] 30 Tablet 0 Sig: TAKE 1 TABLET BY MOUTH TWICE A DAY NEEDED Not Delegated - Benzodiazepines Protocol Failed - 01/24/2023 4:02 PM Failed - This refill cannot be delegated Passed - Visit with relevant provider in past 12 months or upcoming 90 days Recent Visits Date Type Provider Dept 11/26/22 Office Visit Shravan Burgos PAC [facility] 11/16/22 Office Visit Amaya Kowalski APRN, SCRAP DROP OPERATOR [facility] 08/12/22 Office Visit Sravani Ramsay MD [facility] Showing recent visits within past 365 days and meeting all other requirements Future Appointments No visits were found meeting these conditions. Showing future appointments within next 90 days and meeting all other requirements INTERN documented in this encounter Plan of Treatment Upcoming Encounters Date Type Department Care Team (Late st Contact Info) Description 03/21/2025 4:30 PM CDT Office Visit [facility] - Primary Care - [place] [address] [place] [address] Shravan Burgos PAC [address] [place] [address] documented as of this encounter Goals Goal Patient Goal Type Associated Problems Recent Progress Patient-Stated? Author [facility] Behavioral Health On track(2019 9:50 AM CDT) [...] documented as of this encounter Care Teams Motorman/Woman Relationship Specialty Start Date End Date Amaya Kowalski, RETAIL BUSINESS ANALYST, SCRAP DROP OPERATOR [address] [place] [address] PCP - General Advanced Practice Nurse 06/10/18 documented as of this encounter
--- OUTSIDE RECORDS SUMMARY | 2024-11-30 17:13 | XMS_ITS | Encounter Summary ---
Author Organization [facility] Address [address] [place] [address] Phone Care Team Providers Care Rock Lather Name Role Phone Amaya Kowalski APRN, CNP Primary Care Provider Reason for Visit * Reason Onset Date Comments Medication Refill 03/01/2023 Encounter Details Date Type Department Care Team (Late st Contact Info) Description 03/01/2023 MyChart RX Renewal [facility] - Primary Care - [place] [address] [place] [address] Clark Archibald MD [address] [place] [address] Medication Renewal Reviewed Social History [...] Telephone Encounter - Mohini Aguirre RN - 03/02/2023 8:41 AM CDT Patient phoned to inform that prescription is ready for machine pecan picker. No answer. Left voicemail. My Chart message sent to patient. * Telephone Encounter - Mohini Aguirre RN - 03/01/2023 3:59 PM CDT Patient phoned to inform that prescription is ready for machine pecan picker. No answer. Left voicemail. UDS order placed. * Telephone Encounter - Amaya Kowalski APRN, CNP - 03/01/2023 3:53 PM CDT Urine drug screen.[place] Prescription Monitoring Site reviewed. * Telephone Encounter - Mohini Aguirre RN - 03/01/2023 3:50 PM CDT Medication failed the protocol, provider to review and approve the medication order if appropriate. Requested Prescriptions Pending Prescriptions Disp Refills LORazepam (ATIVAN) 1 MG Tablet 30 Tablet 0 Sig: Take 1 Tablet by mouth 2 times daily as needed for Anxiety. Not Delegated - Benzodiazepines Protocol Failed - 03/01/2023 3:36 PM Failed - This refill cannot be delegated Passed - Visit with relevant provider in past 12 months or upcoming 90 days Recent Visits Date Type Provider Dept 11/26/22 Office Visit [facility] [address] 11/16/22 Office Visit Amaya Kowalski APRN, DOUGLAS [facility] [place] [facility] 08/12/22 [facility] Showing recent visits within past [...] CDT Office Visit [facility] - Primary Care - [place] [address] [place] [address] Shravan Burgos PAC [address] [place] [address] Scheduled Orders Name Type Priority Associated Diagnoses Orde r Schedule URINE DRUG SCREEN Lab Routine High risk medication use Expected: 03/01/2023, Expires: 03/31/2023 documented as of this encounter Goals Goal [...] documented as of this encounter Care Teams Rock Lather Relationship Specialty Start Date End Date Amaya Kowalski, CLINICAL TRIALS ASSISTANT, AIRPLANE RENTAL CLERK [address] [place] [address] PCP - General Advanced Practice Nurse 06/10/18 documented as of this encounter
--- OUTSIDE RECORDS SUMMARY | 2024-11-30 17:13 | XMS_ITS | Encounter Summary ---
Author Organization [facility] Address [address] [place] [address] Phone Care Team Providers Care Powersaw Supervisor Name Role Phone Amaya Kowalski APRN, DOUGLAS Primary Care Provider Reason for Visit * Reason Comments Medication Refill Encounter Details Date Type Department Care Team ([facility] Contact Info) Description 11/04/2022 Refill [facility] - [place] [address] [place] [address] Amaya Kowalski APRN, EXTRUSION DIE REPAIR MANAGER [address] [place] [address] Medication Refill Social History Tobacco [...] encounter Miscellaneous Notes * Telephone Encounter - Shena Romo RN - 11/04/2022 3:06 PM CST Per nursing clinical judgement, provider to review and approve the medication(s) order(s) if appropriate. Requested Prescriptions Pending Prescriptions Disp Refills Symbicort 160-4.5 MCG/ACT Aerosol [Pharmacy Med Name: SYMBICORT 160-4.5 MCG INHALER] 10.2 g 1 Sig: INHALE TWO PUFFS BY MOUTH TWO TIMES A DAY Inhaled Combinations Protocol Passed - 11/04/2022 3:04 PM Passed - Visit with relevant provider in past 12 months or upcoming 90 days Recent Visits Date Type Provider Dept 08/12/22 Office Visit Sravani Ramsay MD [facility] Showing recent visits within past 365 days and meeting all other requirements Future Appointments No visits were found meeting these conditions. Showing future appointments within next 90 days and meeting all other requirements Passed - Active short-acting beta agonist prescription IAN LANGUAGE PROFESSOR documented in this encounter Plan of Treatment Upcoming Encounters Date Type Department Care Team (Late st Contact Info) Description 03/21/2025 4:30 PM CDT Office Visit [facility] - Primary Care - [place] [address] [place] [address] Shravan Burgos PAC [address] [place] [address] documented as of this encounter [...] as of this encounter Visit Diagnoses Diagnosis Bronchitis Bronchitis, not specified as acute or chronic documented in this encounter Additional Health Concerns Assessment Noted Time PHQ-9 Depression Total Score: 13 020 2:00 PM CDT documented as of this encounter Care Teams Powersaw Supervisor Relationship Specialty Start Date End Date Amaya Kowalski, FACTORY PROCESS WORKERS, EXTRUSION DIE REPAIR MANAGER [address] [place] [address] PCP - General Advanced Practice Nurse 06/10/18 documented as of this encounter
--- OUTSIDE RECORDS SUMMARY | 2024-11-30 17:13 | XMS_ITS | Encounter Summary ---
Author Organization [facility] Address [address] [place] [address] Phone Care Team Providers Care Record Clerk Salesperson Name Role Phone Amaya Kowalski APRN, CNP Primary Care Provider Reason for Visit * Reason Comments Eye Pain Left//poked eye with makeup wand Encounter Details Date Type Department Care Team (Late st Contact Info) Description 11/16/2022 4:15 PM PUBLIC SERVICE REPRESENTATIVE Office Visit [facility] - Primary Care - [place] [address] [place] [address] Amaya Kowalski APRN, INSOLE LIP TURNER [address] [place] [address] Abrasion of left cornea, initial encounter (Primary Dx); Anxiety Discharge Disposition: Discharged to home or [...] Coronavirus/COVID-19? No / Unsure 11/16/2022 3:52 PM PUBLIC SERVICE REPRESENTATIVE documented as of this encounter Last Filed Vital Signs Vital Sign Reading Time Taken Comments Blood Pressure 118/84 11/16/2022 3:53 PM PUBLIC SERVICE REPRESENTATIVE Pulse 73 11/16/2022 3:53 PM PUBLIC SERVICE REPRESENTATIVE Temperature 36.6 ??C (97.9 ??F) 11/16/2022 3:53 PM CS T Respiratory Rate 20 11/16/2022 3:53 PM PUBLIC SERVICE REPRESENTATIVE Oxygen Saturation 99% 11/16/2022 3:53 PM PUBLIC SERVICE REPRESENTATIVE Inhaled Oxygen Concentration - - Weight 64.3 kg (141 lb 12.8 oz) 11/16/2022 3:53 PM PUBLIC SERVICE REPRESENTATIVE Height 160 cm (5' 3 ) 11/16/2022 3:53 PM PUBLIC SERVICE REPRESENTATIVE Body Mass Index 25.12 11/16/2022 3:53 PM PUBLIC SERVICE REPRESENTATIVE documented in this encounter Patient Instructions * Patient Instructions* Amaya Kowalski APRN, INSOLE LIP TURNER - 11/16/2022 4:15 PM PUBLIC SERVICE REPRESENTATIVE Ciprofloxin eye drops every 4 hours while away If changes in vision go to eye doctor or ER Follow up as needed Pneumonia is a serious lung infection that can make you very sick. There are now two vaccines recommended by the Center for Disease Control and Prevention (CDC) to protect against pneumonia for all patients who are 65 years and older and patients under 65 with certain conditions that put them at a higher risk. Request your pneumonia vaccines at your Primary Care Physician???s office or your localpharmacy. IC SERVICE REPRESENTATIVE IC SERVICE REPRESENTATIVE documented in this encounter Progress Notes * Jo Sorenson, JESUSITA - 11/16/2022 4:15 PM CST Irma Seymour was provided education materials regarding smoking cessation as noted on the After Visit Summary. Counseling Given and Ready to Quit Calix are updated in the Social History. Irma Seymour, 42 y.o., female is here for Eye Pain (left) Medication Refills: Patient reports/denies need for medication refills. Orders Pended: no Requested Prescriptions No prescriptions requested or ordered in this encounter Home Medications Medication Sig Start Date End Date Taking? Authorizing Provider albuterol 108 (90 Base) MCG/ACT Aerosol Solution INHALE 1-2 PUFFS BY MOUTH EVERY 4 HOURS NEEDED FOR WHEEZING OR COUGH 09/17/22 Amaya Kowalski APRN, CNP ibuprofen (MOTRIN) 200 MG Tablet Take 3 Tabs by mouth every 6 hours as needed for Fever. 12/26/18 Ti Ma, PAPI ipratropium-albuterol (DUO-NEB) 0.5-2.5 (3) MG/3ML Solution INHALE 1 VIAL VIA NEBULIZER FOUR TIMES DAILY 09/18/22 Amaya Kowalski APRN, CNP LORazepam (ATIVAN) 1 MG Tablet TAKE 1 TABLET BY MOUTH TWICE A DAY NEEDED FOR ANXIETY 10/20/22 Amaya Kowalski APRN, CNP Respiratory Therapy Supplies (NEBULIZER) Device Use 4x/day prn. 02/14/19 Amaya Kowalski APRN, CNP Respiratory Therapy Supplies (NEBULIZER/TUBING/MOUTHPIECE) Kit Use 4 times daily prn 02/16/19 Amaya Kowalski APRN, CNP Symbicort 160-4.5 MCG/ACT Aerosol INHALE TWO PUFFS BY MOUTH TWO TIMES A DAY 11/04/22 Amaya Kowalski APRN, DOUGLAS There are no discontinued medications. I have [...] Due Topic Date Due ??? Pneumococcal Immunization (0-64 years) (1 - PCV) Never done ??? DTaP/Tdap/Td Immunization (1 - Tdap) Never done ??? Pap Smear Never done ??? Hepatitis B Immunization (3 of 3 - 19+ 3-dose series) 01/26/2015 ??? SARS-COV-2 Immunization (3 - Booster for Pfizer series) 01/02/2022 ??? Influenza Immunization (1) 07/30/2022 Orders Pended: no The following BPA's have been addressed with the patient today: Flu, TDAP and Pneumonia IC SERVICE REPRESENTATIVE * Amaya Kowalski, MEGAN, INSOLE LIP TURNER - 11/16/2022 4:15 PM CST Images from the original note were not included. Subjective: Patient presents with eye pain in her left eye. She states that she was put non her mascara this morning and jabbed herself in the left eye with her brush. She states that is painful and watering. She states that she is also having some drainage down the back of her throat. Review of Systems Constitutional: Negative for fever. HENT: Positive for postnasal drip. Eyes: Positive for pain and redness. Respiratory: Negative for cough and shortness of breath. Cardiovascular: Negative for chest pain and palpitations. Gastrointestinal: Negative for constipation, diarrhea, nausea and vomiting. Genitourinary: Negative. Musculoskeletal: Negative. Neurological: Negative. Psychiatric/Behavioral: Negative. Objective: Physical Exam Vitals and nursing note reviewed. Constitutional: Appearance: Normal appearance. HENT: Head: Normocephalic and atraumatic. Eyes: Extraocular Movements: Extraocular movements intact. Pupils: Pupils are equal, round, and reactive to light. Left eye: Fluorescein uptake present. Cardiovascular: Rate and Rhythm: Normal rate and regular rhythm. Pulses: Normal pulses. Heart sounds: Normal heart sounds. Pulmonary: Effort: Pulmonary effort is normal. Breath sounds: Normal breath sounds. Musculoskeletal: General: Normal range of motion. Cervical back: Normal range of motion. Skin: General: Skin is warm and dry. Neurological: Mental Status: She is alert and oriented to person, place, and time. Psychiatric: Mood and Affect: Mood normal. BP 118/84 Pulse 73 Temp 97.9 ??F (36.6 ??C) (Temporal) Resp 20 Ht 5' 3 (1.6 m) Wt 141 lb12.8 oz (64.3 kg) SpO2 99% BMI 25.12 kg/m?? Assessment and Plan See Diagnoses, Orders, Follow-up, and Instructions Encounter Diagnoses Name Primary? Anxiety ??? Abrasion of left cornea, initial encounter Yes Ciprofloxin eye drops every 4 hours while away If changes in vision go to eye doctor or ER Follow up as needed Documentation for this visit on 11/16/2022 was completed using a template. I have seen and examinedthe patient. Everything documented was personally performed at this visit with the necessary additions, deletions and changes made as appropriate. IC SERVICE REPRESENTATIVE documented in this encounter Plan of Treatment Upcoming Encounters Date Type Department Care Team (Late st Contact Info) Description 03/21/2025 4:30 PM CDT Office Visit [facility] - Primary Care - [place] [address] [place] [address] Shravan Burgos PAC [address] [place] [phone] documented as of this encounter Goals Goal [...] making a change Department associated with goal: [facility] Steps to achieve [...] make a change Department associated with goal: [facility] Steps to achieve [...] as of this encounter Visit Diagnoses Diagnosis Abrasion of left cornea, initial encounter- Primary Anxiety Anxiety state, unspecified documented in this encounter Additional Health Concerns Assessment Noted Time PHQ-9 Depression Total Score: 13 020 2:00 PM CDT documented as of this encounter Care Teams Record Clerk Salesperson Relationship Specialty Start Date End Date Amaya Kowalski, RN NEUROLOGY, INSOLE LIP TURNER [address] [place] [address] PCP - General Advanced Practice Nurse 06/10/18 documented as of this encounter
--- OUTSIDE RECORDS SUMMARY | 2024-11-30 17:13 | XMS_ITS | Encounter Summary ---
Author Organization [facility] Address [address] [facility] [place] [address] Phone Care Team Providers Care Blacksmith Assistant Name Role Phone Sravani Ramsay MD Primary Care Provider Reason for Visit * Reason Comments Transition of Care Encounter Details Date Type Department Care Team ([facility] st Contact Info) Description 04/23/2023 4:00 PM CDT Office Visit [facility] - Primary Care - [place] [address] [place] [phone] Sravani Ramsay MD [address] [place] [address] Tobacco use disorder (Primary Dx); Lumbar spine pain; Mild persistent asthma with exacerbation; Encounter for preventative adult health care examination; Severe scoliosis Discharge Disposition: Discharged to home or Selfcare [...] suspected to have Coronavirus/COVID-19? No / Unsure 04/23/2023 3:12 PM CDT documented as of this encounter Last Filed Vital Signs Vital Sign Reading Time Taken Comments Blood Pressure 120/78 04/23/2023 4:06 PM CDT Pulse 89 04/23/2023 4:06 PM CDT Temperature 36.1 ??C (97 ??F) 04/23/2023 4:06 PM CDT Respiratory Rate 20 04/23/2023 4:06 PM CDT Oxygen Saturation 98% 04/23/2023 4:06 PM CDT Inhaled Oxygen Concentration - - Weight 63.6 kg (140 lb 3.2 oz) 04/23/2023 4:06 P M CDT Height 160 cm (5' 3 ) 04/23/2023 4:06 PM CDT Body Mass Index 24.84 04/23/2023 4:06 PM CDT documented in this encounter Patient Instructions * Attachments The following attachments cannot be sent through Care Everywhere. * Preventive Care 40-64 Years Old Female (Panamanian) * Scoliosis (Panamanian) documented in this encounter Progress Notes * Cristin Tolentino RMA - 04/23/2023 4:00 PM CDT Irma Seymour, 42 y.o., female is here for Transition of [...] COUGH 09/17/22 Yes Amaya Kowalski APRN, CNP ibuprofen (MOTRIN) 200 MG Tablet Take 3 Tabs by mouth every 6 hours as needed for Fever. 12/26/18 Yes Ti Ma, PAPI ipratropium-albuterol (DUO-NEB) 0.5-2.5 (3) MG/3ML Solution INHALE 1 VIAL VIA NEBULIZER FOUR TIMES DAILY 09/18/22 Yes Amaya Kowalski APRN, CNP LORazepam (ATIVAN) 0.5 MG Tablet Take 1 Tablet by mouth 2 times daily as needed for Anxiety. 04/06/23Yes Shahida Bianchi APRN, CNP methylPREDNISolone (Medrol) 4 MG Tablet Therapy Pack Use as per instructions on package. Patient not taking: Reported on 04/23/2023 11/26/22 Shravan Burgos PAC Respiratory Therapy Supplies (NEBULIZER) Device Use 4x/day prn. 02/14/19 Yes Amaya Kowalski APRN, CNP Respiratory Therapy Supplies (NEBULIZER/TUBING/MOUTHPIECE) Kit Use 4 times daily prn 02/16/19 Yes Amaya Kowalski APRN, CNP Symbicort 160-4.5 MCG/ACT Aerosol INHALE TWO PUFFS BY MOUTH TWO TIMES A DAY 01/11/23 Yes Amaya Kowalski APRN, CNP There are [...] Health Maintenance Due Topic Date Due ??? Hepatitis C Virus (HCV) Screening Never done ??? Pneumococcal Immunization Combined (1 - PCV) Never done ??? DTaP/Tdap/Td Immunization (1 - Tdap) Never done ??? Cervical Cancer Screening (CCS) Never done ??? Hepatitis B Immunization (3 of 3 - 19+ 3-dose series) 01/26/2015 ??? SARS-COV-2 Immunization (3 - Pfizer series) 01/02/2022 Orders Pended: no The following BPA's have been addressed with the patient today: N/A * Sravani Ramsay MD - 04/23/2023 4:00 PM CDT HPI: Patient is a 42 y.o. 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 Currently she has a bit of anxiety and has severe scoliosis from childhood. We will go over her care gaps, medications, and order labs. Health Maintenance: Health Maintenance Due Topic Date Due ??? Hepatitis C Virus (HCV) Screening Never done patient does not want any vaccinations today I have postponed the tetanus, COVID and pneumonia at this time. Hepatitis C antibody was ordered with her other labs. Medications: Current Outpatient Medications Medication Sig Dispense Refill ??? albuterol 108 (90 Base) MCG/ACT Aerosol Solution INHALE 1-2 PUFFS BY MOUTH EVERY 4 HOURS NEEDED FOR WHEEZING OR COUGH 6.7 g 1 ??? ibuprofen (MOTRIN) 200 MG Tablet Take [...] TWO TIMES A DAY 10.2 g 1 No current facility-administered medications for this visit. No changes in medication at this time Lab Results: ordered Review of Systems Constitutional: Negative. HENT: Negative. Eyes: Negative. Respiratory: Negative. Cardiovascular: Negative. Gastrointestinal: Negative. Genitourinary: Negative. Musculoskeletal: Positive for back pain. Skin: Negative. Neurological: Negative. Endo/Heme/Allergies: Negative. Psychiatric/Behavioral: Negative. All other systems reviewed and are negative. Vitals: 04/23/23 1606 BP: 120/78 BP Location: Right Arm BP Position: Sitting BP Cuff Size: Regular Pulse: 89 Resp: 20 Temp: 97 ??F (36.1 ??C) TempSrc: Temporal SpO2: 98% Weight: 140 lb 3.2 oz (63.6 kg) Height: 5' 3 (1.6 m) Body mass index is 24.84 kg/m??. Physical Exam Vitals and nursing note reviewed. Constitutional: General: She is not in acute distress. Appearance: Normal appearance. She is not ill-appearing. HENT: Head: Normocephalic and atraumatic. Right Ear: Tympanic membrane, ear canal and external ear normal. There is no impacted cerumen. Left Ear: Tympanic membrane, ear canal and external ear normal. There is no impacted cerumen. Nose: Nose normal. No congestion or rhinorrhea. Mouth/Throat: Mouth: Mucous membranes are moist. Pharynx: Oropharynx is clear. Eyes: General: No scleral icterus. Right eye: No discharge. Left eye: No discharge. Extraocular Movements: Extraocular movements intact. Conjunctiva/sclera: Conjunctivae normal. Pupils: Pupils are equal, round, and reactive to light. Neck: Vascular: No carotid bruit. Cardiovascular: Rate and Rhythm: Normal rate and regular rhythm. Pulses: Normal pulses. Heart sounds: Normal heart sounds. No murmur heard. No gallop. Pulmonary: Effort: Pulmonary effort is normal. No respiratory distress. Breath sounds: Normal breath sounds. No wheezing or rhonchi. Abdominal: General: Bowel sounds are normal. There is no distension. Palpations: Abdomen is soft. There is no mass. Tenderness: There is no abdominal tenderness. There is no right CVA tenderness, left CVA tenderness, guarding or rebound. Hernia: No hernia is present. Musculoskeletal: General: Deformity present. No swelling, tenderness or signs of injury. Normal range of motion. Cervical back: Normal range of motion and neck supple. No rigidity or tenderness. Right lower leg: No edema. Left lower leg: No edema. Comments: Patient's stands straight walk straight and you would never know that her scoliosis is sobad she is normal in her back until you get to about T8 and then it veers to the left side it significantly and appears that it could cause much damage. She has not seen an orthopedic surgeon for quite some time but is ready to see if something can be done to help her. Lymphadenopathy: Cervical: No cervical adenopathy. Skin: General: Skin is warm and dry. Capillary Refill: Capillary refill takes less than 2 seconds. Coloration: Skin is not jaundiced or pale. Findings: No bruising, erythema, lesion or rash. Neurological: General: No focal deficit present. Mental Status: She is alert and oriented to person, place, and time. Cranial Nerves: No cranial nerve deficit. Sensory: No sensory deficit. Motor: No weakness. Coordination: Coordination normal. Gait: Gait normal. Deep Tendon Reflexes: Reflexes normal. Psychiatric: Mood and Affect: Mood normal. Behavior: Behavior normal. Thought Content: Thought content normal. Past, family, surgical, and social history reviewed and updated in the chart. Assessment/Plan: Diagnoses and all orders for this visit: Tobacco use disorder - PULMONARY REFERRAL; Future Lumbar spine pain Mild persistent asthma with exacerbation Encounter for preventative adult health care examination - COMPLETE BLOOD COUNT (CBC) WITH DIFF; Future - CMP (COMPREHENSIVE METABOLIC PANEL); Future - LIPID PANEL; Future - THYROID SCREEN WITH REFLEX; Future - URINALYSIS REFLEX IF INDICATED BY ABNORMAL RESULTS; Future - HEMOGLOBIN A1C W/ ESTIMATED GLUCOSE; Future - VITAMIN D, 25 HYDROXY TOTAL; Future - HEPATITIS C ANTIBODY; Future Severe scoliosis - EXTERNAL ORTHOPEDIC REFERRAL; Future Follow-up as needed and after the orthopedic exam approximately 3 months' time. Patient verbalizes understanding and agrees with plan of care as noted above. New medication discussed with patient and family, including action of medication, potential side effects, interactions, and consequences for not taking it. Patient states understanding of new medication instructions. An After Visit Summary with personalized patient education was printed and given to the patient. Documentation for this visit on 04/29/23 was completed using a template. I have seen and examined the patient. Everything documented was personally performed at this visit with the necessary additions, deletions and changes made as appropriate. documented in this encounter Plan of Treatment Upcoming Encounters Date Type Department Care Team (Late st Contact Info) Description 03/21/2025 4:30 PM CDT Office Visit [facility] - Primary Care - [place] [address] [place] [address] Shravan Burgos, PAPI [address] [place] [address] documented as of this encounter Goals Goal Patient Goal Type Associated Problems Recent Progress Patient-Stated? Author Behavioral [facility] Behavioral Health On track(2019 9:50 [...] and past) that trigger mood concerns. Behavioral [facility] Behavioral Health On track(2019 9:50 AM CDT) No Eloise Jenkins LCPC Note: Irma will engage in a plan of action to improve emotional and mental wellbeing. Goal Reviewed with: patient Readiness to change: Not yet ready to make a change Department associated with goal: [facility] [...] documented as of this encounter Results * HEPATITIS C ANTIBODY (07/14/2023 4:05 PM CDT) hepatitis C antibody 0.10 <1 S/CO [facility] ARCH [id number] B 07/15/2023 3:00 PM CDT [facility] Comment: Signal/Cutoff ratio ??< 0.79 is Nondetected Signal/Cutoff ratio 0.80-0.99 is Grayzone Signal/Cutoff ratio > 0.99 is Detected Supplemental assays are recommended if signal/cutoff ratio is >/=1.00. ??Signal/cutoff ratio result >/= 5.00 is 97% predictive of positivity for recombinant immunoblot assay (RIBA) and will be reported to the [place] Department of Public Health as required. Blood Venipuncture / Unknown 07/14/2023 4:05 PM CDT 07/14/2023 4:33 PM CDT us Sravani Ramsay MD CHEMISTRY ORDERABLES Final R esult [facility] [address] [place] [address], documented in this encounter Visit Diagnoses Diagnosis Tobacco use disorder- Primary Lumbar spine pain Lumbago Mild persistent asthma with exacerbation Unspecified asthma, with exacerbation Encounter for preventative adult health care examination Severe scoliosis documented in this encounter Additional Health Concerns Assessment Noted Time PHQ-9 Depression Total Score: 13 020 2:00 PM CDT documented as of this encounter Care Teams Blacksmith Assistant Relationship Specialty Start Date End Date Sravani Ramsay MD [address] [place] [address] PCP - General Family Medicine 04/23/23 12/30/23 documented as of this encounter
--- OUTSIDE RECORDS SUMMARY | 2024-11-30 17:13 | XMS_ITS | Encounter Summary ---
Author Organization [facility] Address [address] [facility] [place] [address] Phone Care Team Providers Care Sustainability Engineer Name Role Phone Sravani Ramsay MD Primary Care Provider Reason for Visit * Reason Comments Medication Refill Encounter Details Date Type Department Care Team (Late st Contact Info) Description 05/07/2023 Refill [facility] - Primary Care - [place] [address] [place] [id number] Sravani Ramsay MD [address] [place] [address] Medication Refill Social History Tobacco [...] Telephone Encounter - Sravani Ramsay MD - 05/10/2023 2:46 PM CDT Refill request approved. * Telephone Encounter - Martha Fraga RN - 05/07/2023 3:46 PM CDT Medication Management Patient is calling to find out that status of refill request for lorazepam Advised patient waiting on pcp approval Caller verbalized understanding and agreeable to recommendation. * Telephone Encounter - Shena Romo RN - 05/07/2023 11:20 AM CDT Medication failed the protocol, provider to review and approve the medication order if appropriate. Requested Prescriptions Pending Prescriptions Disp Refills LORazepam (ATIVAN) 0.5 MG Tablet [Pharmacy Med Name: LORAZEPAM 0.5 MG TABLET] 60 Tablet 0 Sig: TAKE 1 TABLET BY MOUTH TWICE A DAY NEEDED FOR ANXIETY Not Delegated - Benzodiazepines Protocol Failed - 05/07/2023 11:17 AM Failed - This refill cannot be delegated Passed - Visit with relevant provider in past 12 months or upcoming 90 days Recent Visits Date Type Provider Dept 04/23/23 Office Visit Sravani Ramsay MD [facility] 11/26/22 Office Visit Shravan Burgos PAC [facility] 11/16/22 Office Visit Amaya Kowalski, MEGAN, PLASTIC TUBING INSULATION SUPERVISOR [facility] 08/12/22 Office Visit Sravani Ramsay MD [facility] Showing recent visits within past 365 days and meeting all other requirements Future Appointments No visits were found meeting these conditions. Showing future appointments within next 90 days and meeting all other requirements * Telephone Encounter - Shena Romo RN - 05/07/2023 11:18 AM CDT Per [place] PDMP last fill date 04/06/23. documented in this encounter Plan of Treatment Upcoming Encounters Date Type Department Care Team (Late st Contact Info) Description 03/21/2025 4:30 PM CDT Office Visit [facility] - Primary Care - [place] [address] [place] [address] Shravna Burgos, PAPI [address] [place] [address] documented as of this encounter Goals Goal Patient Goal Type Associated Problems Recent Progress Patient-Stated? Author Behavioral Health Behavioral Health On track(2019 9:50 AM CDT) Yes Eloise Jenkins, [facility] Note: Irma reported her goal for psychotherapy is to help me be able to deal with things in the present and in her past that are contributing to low and anxious mood. Goal Reviewed with: patient Readiness to change: Thinking about making a change Department associated with goal: [facility] BE[facility]AVIORAL HEALTH SERVICES Steps to achieve [...] change Department associated with goal: [facility]IORAL [facility]ALTH SERVICES Steps to achieve [...] documented as of this encounter Care Teams Sustainability Engineer Relationship Specialty Start Date End Date Sravani Ramsay MD [address] [place] [address] PCP - General Family Medicine 04/23/23 12/30/23 documented as of this encounter
--- OUTSIDE RECORDS SUMMARY | 2024-11-30 17:13 | XMS_ITS | Encounter Summary ---
Author Organization [employer] Care Team Providers Care Label Machine Operator Name Role Phone Amaya Kowalski APRN, OPTICAL GLASS INSPECTOR Primary Care Provider Encounter Details Date Type Department Care Team (Latest Contact Info) Description 11/26/2022 Travel Social History Tobacco Use Types Packs/Day [...] suspected to have Coronavirus/COVID-19? No / Unsure 11/26/2022 4:19 PM BREAKER UNIT ASSEMBLER documented as of this encounter Plan of Treatment Upcoming Encounters Date Type Department Care Team (Late st Contact Info) Description 03/21/2025 4:30 PM CDT Office Visit [facility] - Primary Care - [place] [address] [place] [address] Shravan Burgos, PAC [address] [place] [address] documented as of this encounter Goals Goal Patient Goal Type Associated Problems Recent Progress Patient-Stated? Author [facility] On track(2019 9:50 AM CDT) Yes Eloise Jenkins LCPC Note: Irma reported her goal for psychotherapy is to help me be able to deal with things in the present and in her past that are contributing to low and anxious mood. Goal Reviewed with: patient Readiness to change: Thinking about making a change Department associated with goal[facility] Steps to achieve [...] and past) that trigger mood concerns. Behavioral [facility] Behavioral Health On track(2019 9:50 AM CDT) No Eloise Jenkins LCPC Note: Irma will engage in a plan of action to improve emotional and mental wellbeing. Goal Reviewed with: patient Readiness to change: Not yet ready to make a change Department associated with goal[facility] Steps to achieve [...] filedocumented in this encounter Additional Health Concerns Infection Onset Date Last Indicated Resolved Time COVID - 19 11/26/2022 11/26/2022 11/26/2022 4:47 PM BREAKER UNIT ASSEMBLER COVID - 19 11/26/2022 11/26/2022 12/06/2022 12:1 9 AM BREAKER UNIT ASSEMBLER Assessment Noted Time PHQ-9 Depression Total Score: 13 020 2:00 PM CDT documented as of this encounter Care Teams Label Machine Operator Relationship Specialty Start Date End Date Amaya Kowalski, MULTIPLE DRUM SANDER HELPER, OPTICAL GLASS INSPECTOR [address] [place] [address] PCP - General Advanced Practice Nurse 06/10/18 documented as of this encounter
--- OUTSIDE RECORDS SUMMARY | 2024-11-30 17:13 | XMS_ITS | Encounter Summary ---
Author Organization [employer] Care Team Providers Care Steel Analyst Name Role Phone Amaya Kowalski APRN, VOLUNTEER COORDINATOR Primary Care Provider Encounter Details Date Type Department Care Team (Latest Contact Info) Description 12/23/2022 Travel Social History Tobacco Use Types Packs/Day [...] Coronavirus/COVID-19? No / Unsure 12/23/2022 3:33 PM CLOTH MENDER documented as of this encounter Plan of Treatment Upcoming Encounters Date Type Department Care Team (Late st Contact Info) Description 03/21/2025 4:30 PM CDT Office Visit [facility] - Primary Care - [place] [address] [place] [address] Shravan Burgos, PAC [address] [place] [address] documented as of this encounter Goals Goal Patient Goal Type Associated Problems Recent Progress Patient-Stated? Author [facility] On track(2019 9:50 AM CDT) Yes Eloise Jenkins LCPC Note: Irma reported her goal for psychotherapy is to help me be able to deal with things in the present and in her past that are contributing to low and anxious mood. Goal Reviewed with: patient Readiness to change: Thinking about making a change Department associated with goal: [facility] Steps to [...] and past) that trigger mood concerns. Behavioral [facility] Behavioral Health On track(2019 9:50 AM CDT) No Eloise Jenkins LCPC Note: Irma will engage in a plan of action to improve emotional and mental wellbeing. Goal Reviewed with: patient Readiness to change: Not yet ready to make a change Department associated with goal: [facility] Steps to [...] documented as of this encounter Care Teams Steel Analyst Relationship Specialty Start Date End Date Amaya Kowalski, MEGAN, VOLUNTEER COORDINATOR [address] [place] [address] PCP - General Advanced Practice Nurse 06/10/18 documented as of this encounter
--- OUTSIDE RECORDS SUMMARY | 2024-11-30 17:13 | XMS_ITS | Encounter Summary ---
Author Organization [employer] Care Team Providers Care Sales Team Manager Name Role Phone Amaya Kowalski APRN, CYLINDER FILLER Primary Care Provider Encounter Details Date Type Department Care Team (Latest Contact Info) Description 03/05/2023 Travel Social History Tobacco Use Types Packs/Day [...] 4:30 PM CDT Office Visit [facility] - Primary Care - [place] [address] [place] [address] Shravan Burgos, PAC [address] [place] [address] documented as of this encounter Goals Goal Patient Goal Type Associated Problems Recent Progress Patient-Stated? Author [facility] Health On track(2019 9:50 AM CDT) Yes [...] and past) that trigger mood concerns. Behavioral [facility] Behavioral Health On track(2019 9:50 [...] documented as of this encounter Care Teams Sales Team Manager Relationship Specialty Start Date End Date Amaya Kowalski, EVENT SET UP SPECIALIST, CYLINDER FILLER [address] [place] [address] PCP - General Advanced Practice Nurse 06/10/18 documented as of this encounter
--- OUTSIDE RECORDS SUMMARY | 2024-11-30 17:13 | XMS_ITS | Encounter Summary ---
Author Organization [facility] Address [address] [place] [address] Phone Care Team Providers Care Teacher Visually Impaired Name Role Phone Amaya Kowalski APRN, CNP Primary Care Provider Reason for Visit * Reason Onset Date Comments Results 12/01/2022 COVID Encounter Details Date Type Department Care Team ([facility] Contact Info) Description 12/01/2022 Telephone [facility] - Primary Care - [place] [address] [place] [address] Shravan Burgos PAC [address] [place] [address] Results (COVID) Social History Tobacco Use Types Packs/Day Years [...] Coronavirus/COVID-19? No / Unsure 11/26/2022 4:19 PM COLLAR SHAPER OPERATOR documented as of this encounter Miscellaneous Notes * Telephone Encounter - Latia Garcia RN - 12/01/2022 1:44 PM CST [employer] message sent. AR SHAPER OPERATOR * Telephone Encounter - Latia Garcia RN - 12/01/2022 1:43 PM CST ----- Message from PAPI Danielle sent at 12/01/2022 12:19 PM COLLAR SHAPER OPERATOR ----- PCR Covid testing was negative. Please make patient aware. AR SHAPER OPERATOR documented in this encounter Plan of Treatment Upcoming Encounters Date Type Department Care Team (Late st Contact Info) Description 03/21/2025 4:30 PM CDT [facility] - [place] [address] [place] [address] Shravan Burgos PAC [...] making a change Department associated with goal: [facility] BE[facility]AVIORAL HEALTH SERVICES Steps to [...] make a change Department associated with goal: [facility] Steps to [...] Resolved Time COVID - 19 11/26/2022 11/26/2022 12/06/2022 12:1 9 AM COLLAR SHAPER OPERATOR Assessment Noted Time PHQ-9 Depression Total Score: 13 020 2:00 PM CDT documented as of this encounter Care Teams Teacher Visually Impaired Relationship Specialty Start Date End Date Amaya Kowalski, FILTERER, BROKERAGE PURCHASE AND SALE CLERK [address] [place] [address] PCP - General Advanced Practice Nurse 06/10/18 documented as of this encounter
--- OUTSIDE RECORDS SUMMARY | 2024-11-30 17:13 | XMS_ITS | Encounter Summary ---
Author Organization [facility] Address [address] 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 Phone Sravani Ramsay MD Primary Care Provider Reason for Visit * Reason Comments Abnormal Study/Test Result Encounter Details Date Type Department Care Team (Late st Contact Info) Description 06/16/2023 3:59 PM CDT - 06/16/2023 6:50 PM CDT Emergency [facility] Emergency [address] [place] [id number] Rajeev Babb, PAPI [address] [place] [address] Trell Minor MD [address] [place] [address] Chest pain, unspecified type Discharge Disposition: Discharged to home or Selfcare [...] Sign Reading Time Taken Comments Blood Pressure 136/84 06/16/2023 6:45 PM CDT Pulse 68 06/16/2023 6:45 PM CDT Temperature 36.7 ??C (98.1 ??F) 06/16/2023 4:08 PM CD T Respiratory Rate 13 06/16/2023 6:45 PM CDT Oxygen Saturation 100% 06/16/2023 6:45 PM CDT Inhaled Oxygen Concentration - - Weight 63.5 kg (140 lb) 06/16/2023 4:08 PM CDT Height 157.5 cm (5' 2 ) 06/16/2023 4:08 PM CDT Body Mass Index 25.61 06/16/2023 4:08 PM CDT documented in this encounter Discharge Instructions * Attachments The following attachments cannot be sent through Care Everywhere. * Nonspecific Chest Pain Adult (Mexican) documented in this encounter Medications at Time of Discharge ibuprofen (MOTRIN) 200 MG Tablet Take 3 Tabs by mouth every 6 hours as needed for Fever. 20 Tab 12/26/2018 Respiratory Therapy Supplies (NEBULIZER) Device Use 4x/day prn. 1 Each 02/14/2019 Respiratory Therapy Supplies (NEBULIZER/TUBING /MOUTHPIECE) Kit Use 4 times daily prn 1 Each 02/16/2019 albuterol 108 (90 Base) MCG/ACT Aerosol Solution INHALE 1-2 PUFFS BY MOUTH EVERY 4 HOURS NEEDED FOR WHEEZING OR COUGH 6.7 g 1 09/17/2022 4 fenofibrate 160 MG TabletIndications :Hypertriglycerid emia Take 1 Tablet by mouth daily. 90 Tablet 3 06/16/2023 4 ipratropium-albut kamala (DUO-NEB) 0.5-2.5 (3) MG/3ML Solution INHALE 1 VIAL VIA NEBULIZER FOUR TIMES DAILY 360 mL 11 09/18/2022 4 LORazepam (ATIVAN) 0.5 MG TabletIndications :Anxiety TAKE 1 TABLET BY MOUTH TWICE A DAY NEEDED FOR ANXIETY 60 Tablet 06/10/2023 3 nitrofurantoin, macrocrystal-mono hydrate, (MACROBID) 100 MG CapsuleIndication s:Urinary tract infection without hematuria, site unspecified Take 1 Capsule by mouth 2 times daily for 7 days. 14 Capsule 06/11/2023 3 Symbicort 160-4.5 MCG/ACT AerosolIndication s:Bronchitis INHALE TWO PUFFS BY MOUTH TWO TIMES A DAY 10.2 g 1 01/11/2023 4 documented as of this encounter ED Notes * Marli Cosby RN - 06/16/2023 6:49 PM CDT Patient discharged. Discharge instructions and patient educational material reviewed with patient; questions and concerns addressed; patient verbalizes understanding, using teach back. Patient was given 0 prescriptions. Patient discharged per ambulatory mode with self as responsible democrat. SL D/C'ed with Hugh cath intact. * Marli Cosby RN - 06/16/2023 5:45 PM CDT Pt resting in bed with call light in reach. Pt updated on plan of care and awaiting results. * Marli Cosby RN - 06/16/2023 4:32 PM CDT Pt medicated per provider orders. Pt educated on intended effects and side effects of medication and verbalized understanding, able to provide teach back of education. * Marli Cosby RN - 06/16/2023 4:25 PM CDT Pt ambulatory to restroom to provide a urine specimen. Pt back to room and placed back on the monitor. * Trell Minor MD - 06/16/2023 4:23 PM CDT Chief Complaint Patient presents with ??? Abnormal Study/Test Result Irma Seymour is a 43 y.o. female who presents to the emergency department complaining of multiplethings. Patient states that she was recently seen by her physician. She was getting a new physicianbecause her old physician retired. Labs showed a significant increase in cholesterol. Patient was told to get an EKG done as an outpatient however they closed and therefore she is checking in here toget an EKG. It is also concerned because she is had some pain. Patient states that over the weekendshe is had some right shoulder pain that has been off and on. It is mild. It is a 3 on a 10 point pain scale. He is had a little bit of right-sided chest pressure also. She describes it as a discomfort. Also very mild. No shortness of breath. She did have some nausea and vomiting on Wednesday but thought maybe it was due to medicines she was taking. On Wednesday she was diagnosed with a urinary tractinfection and started on antibiotics. Patient has had some intermittent sweats also. Pain is not exertional in nature. Because of her high cholesterol patient was just concerned and wants to get evaluated. Also did not want to wait for the EKG because she was told to get it right away. Past medical history: Illnesses: Hyperlipidemia, history of alcohol use disorder, asthma, COPD, depression Medications: See list Allergies: Bactrim Social History: Tobacco: Occasional some day smoker Alcohol: Does drink alcohol. History of alcohol use disorder Marijuana: Denies This chart was created using a voice recognition program. There maybe grammatical and/or syntax errors that are unintentional. Current Facility-Administered Medications Medication Dose Route Frequency Provider Last Rate Last Admin ??? 0.9 % sodium chloride solution 126 mL/hr Intravenous Continuous Trell Minor MD 126 mL/hr at06/16/23 1632 126 mL/hr at 06/16/23 1632 Current Outpatient Medications Medication Sig Dispense Refill [...] NEEDED FOR ANXIETY 60 Tablet 0 ??? nitrofurantoin, macrocrystal-monohydrate, (MACROBID) 100 MG Capsule Take 1 Capsule by mouth 2 times daily for 7 days. 14 Capsule 0 ??? Respiratory Therapy Supplies (NEBULIZER) Device Use 4x/day prn. 1 Each 0 ??? Respiratory Therapy Supplies (NEBULIZER/TUBING/MOUTHPIECE) Kit Use 4 times daily prn 1 Each 0 ??? Symbicort 160-4.5 MCG/ACT Aerosol INHALE TWO PUFFS BY MOUTH TWO TIMES A DAY 10.2 g 1 Allergies Allergen Reactions ??? Doxycycline Rash ??? Bactrim [Sulfamethoxazole-Trimethoprim] Rash Past Medical History Positives Diagnosis Date ??? 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 ??? Anxiety ??? Asthma ??? Nava's palsy ??? Bronchitis ??? COPD (chronic obstructive pulmonary disease) ([facility]) ??? Depression ??? Heart palpitations ??? Panic attack ??? Sleep difficulties ??? Suicide attempt ([facility]) 09/2018 approx 1-2 years ago, drunk , attempt to hang self with handheld shower. No past surgical history on file. Social History Socioeconomic History ??? Marital status: Single Spouse name: n/a ??? Number of children: 2 ??? Years of education: 14 ??? Highest education level: Some college, no degree Occupational History ??? Not on file Tobacco Use ??? Smoking status: Some Days Types: Cigarettes ??? Smokeless tobacco: Never ??? Tobacco comments: Pt has multiple days in a row she abstains. Vaping Use ??? Vaping Use: Never used Substance and Sexual Activity ??? Alcohol use: Yes Alcohol/week: 3.0 oz Types: 5 Cans of beer per week Comment: socially ??? Drug use: Not Currently ??? Sexual activity: Yes Partners: Male control/protection: I.U.D. Other Topics Concern ??? Not on file Social History Narrative Pt resides with her parents, two siblings and her two sons; sons are 18 years old and 12 years old. BP 128/71 Pulse 72 Temp 98.1 ??F (36.7 ??C) (Tympanic) Resp 17 Ht 5' 2 (1.575 m) Wt 140 lb (63.5 kg) SpO2 99% BMI 25.61 kg/m?? Review of Systems Constitutional: Positive for diaphoresis. Negative for activity change, appetite change, chills, fatigue and fever. HENT: Negative for dental problem, rhinorrhea and sore throat. Eyes: Negative for visual disturbance. Respiratory: Negative for cough, chest tightness, shortness of breath and wheezing. Cardiovascular: Positive for chest pain. Negative for palpitations and leg swelling. Gastrointestinal: Positive for nausea and vomiting. Negative for abdominal pain, constipation and diarrhea. Genitourinary: Negative for difficulty urinating, flank pain, hematuria and urgency. Musculoskeletal: Negative for arthralgias, back pain, myalgias, neck pain and neck stiffness. Right shoulder pain Skin: Negative for color change and rash. Allergic/Immunologic: Negative for food allergies. Neurological: Negative for dizziness, syncope, weakness, light-headedness, numbness and headaches. Psychiatric/Behavioral: Negative for self-injury, sleep disturbance and suicidal ideas. All other systems reviewed and are negative. Physical Exam Vitals and nursing note reviewed. Constitutional: General: She is not in acute distress. Appearance: She is well-developed. She is not diaphoretic. HENT: Head: Normocephalic and atraumatic. Right Ear: External ear normal. Left Ear: External ear normal. Nose: Nose normal. Mouth/Throat: Mouth: Mucous membranes are moist. Pharynx: No oropharyngeal exudate. Eyes: General: Right eye: No discharge. Left eye: No discharge. Conjunctiva/sclera: Conjunctivae normal. Pupils: Pupils are equal, round, and reactive to light. Neck: Thyroid: No thyromegaly. Vascular: No JVD. Trachea: No tracheal deviation. Cardiovascular: Rate and Rhythm: Normal rate and regular rhythm. Heart sounds: Normal heart sounds. No murmur heard. Pulmonary: Effort: Pulmonary effort is normal. No respiratory distress. Breath sounds: Normal breath sounds. No wheezing or rales. Chest: Chest wall: No tenderness. Abdominal: General: Bowel sounds are normal. There is no distension. Palpations: Abdomen is soft. There is no mass. Tenderness: There is no abdominal tenderness. There is no guarding or rebound. Musculoskeletal: General: No tenderness. Normal range of motion. Cervical back: Normal range of motion and neck supple. Lymphadenopathy: Cervical: No cervical adenopathy. Skin: General: Skin is warm and dry. Capillary Refill: Capillary refill takes less than 2 seconds. Coloration: Skin is not pale. Findings: No erythema or rash. Neurological: Mental Status: She is alert and oriented to person, place, and time. Cranial Nerves: No cranial nerve deficit. Motor: No abnormal muscle tone. Coordination: Coordination normal. Deep Tendon Reflexes: Reflexes are normal and symmetric. Psychiatric: Behavior: Behavior normal. Thought Content: Thought content normal. Procedures Imaging Results XR CHEST SINGLE VIEW PORTABLE (Final result) Result time 06/16/23 16:52:52 Final result by Daniel Cedeño MD (06/16/23 16:52:52) Impression: IMPRESSION: No acute abnormality identified. Narrative: EXAM DESCRIPTION: XR CHEST SINGLE VIEW PORTABLE REASON FOR STUDY: Rt sided chest pressure amd intermittent rt shoulder pain x 4 days. HX: Smoker, Asthma, COPD, Bronchitis TECHNIQUE: Portable upright AP view of the chest. COMPARISON: 12/05/2020 FINDINGS: LUNGS AND PLEURA: No focal opacity, large effusion, or pneumothorax identified. HEART/MEDIASTINUM: Trachea midline. Cardiac silhouette normal in size. Mediastinal contours appear normal. BONES: Unremarkable. CHEST WALL: Unremarkable. UPPER ABDOMEN: Unremarkable. THIS IS AN ELECTRONICALLY VERIFIED FINAL REPORT 06/16/2023 4:50 PM - Electronically signed by Daniel Cedeño M.D. AR: SONYA Report ID: [id number] Reading Location: [place] [address] Labs Reviewed CMP (COMPREHENSIVE METABOLIC PANEL) - Abnormal; Notable for the following components: Result Value CREATININE, BLOOD 0.54 (*) SGOT (AST) 34 (*) SGPT (ALT) 47 (*) All other components within normal limits URINALYSIS REFLEX IF INDICATED BY ABNORMAL RESULTS - Abnormal; Notable for the following components: WBC ESTERASE 25 /ul (*) PROTEIN, RANDOM URINE 15 mg/dL (*) WBC (Urine) 6-10 (*) BACTERIA, URINE Few (*) All other components within normal limits CBC WITH AUTO DIFFERENTIAL - Abnormal; Notable for the following components: MCV 98.0 (*) MONOCYTES 12.8 (*) ABSOLUTE MONOCYTES 1.23 (*) All other components within normal limits MAGNESIUM (MG) - Normal TROPONIN I (TRP I) - Normal D-DIMER - Normal Narrative: The FDA has approved this method to exclude the diagnosis of DVT and/or PE at the cutoff value of <0.50 mcg/mL FEU. CULTURE, URINE COMPLETE BLOOD COUNT (CBC) WITH DIFF Narrative: The following orders were created for panel order CBC w/ Diff. Procedure Abnormality Status --------- ------ CBC with Auto Differential[[id number]] Abnormal Final result Please view results for these tests on the individual orders. [facility] EKG visualized and interpreted by me. Time is 4:13 p.m.. Normal sinus rhythm with sinus arrhythmia.Rate of 79. [place] is normal. Intervals are normal. There is an RR prime in V1. Likely this is normalvariant. QRS complexes are unremarkable. ST segments are normal. T-waves are normal. There is no acute injury pattern. Compared to EKG dated 12/05/2020, no significant morphologic changes Chest x-ray visualized and interpreted by me. No acute disease Impression: Patient presents with chest pain concerning for ACS. Patient's history of new diagnosisof significant hyperlipidemia has impacted care and subsequent medical decision making. In the workup of these potential diagnoses I considered but did not pursue pneumothorax, pneumonia,dissection due to signs and symptoms on exam and initial findings not consistent with these diseaseprocesses. Tests were independently reviewed and interpreted and imaging independently visualized and interpreted. This is notable for negative chest x-ray noted above. Labs all look good. Urine still looks a little bit possibly infected but patient was currently on antibiotics for urinary tract infection. I considered escalation of care including observation versus admission but not warranted due to stability of disease Plan for discharge to home. Discussed the case with patient. I will prescribe no new medicines butshe will bulk picker her antihyperlipidemic on the way home today.. Reasons to return to the emergency room were discussed. Clinical Impression 1. Chest pain, unspecified type Disposition: Discharged The patient remained stable throughout their ED stay. My clinical impression was discussed with thepatient/caregiver. Any labs and radiology results were reviewed. Questions were addressed as completely as possible given the information available at present. The therapeutic plan was discussed, inst ructions were given and the importance of primary care follow up was stressed and encouraged. The patient/caregiver voiced understanding of the plan, indications to return, and the need for follow up. Reasons to return to the E.D. were discussed. New Medications: New Prescriptions No medications on file I have advised the patient to follow-up with: Sravani Ramsay MD [address] [facility] [phone] Call in 1 day Dispostion: Discharge * Michelle Mills RN - 06/16/2023 4:06 PM CDT Patient presents to ED room 8 with concerns of needing a EKG. Patient states that she had routine blood work drawn last week in which her cholesterol was over 1,000 and showed a UTI. States that she has been taking antibiotics for her UTI and started experiencing headache, right shoulder pain, nausea and vomiting over this past weekend. Patient states that she contacted doctors office and they told her she needed to come get a EKG. Denies any chest pain or SOB. documented in this encounter Plan of Treatment Upcoming Encounters Date Type Department Care Team (Late st Contact Info) Description 03/21/2025 4:30 PM CDT Office Visit [facility] - Primary [facility] - [place] [address] [place] [address] Shravan Burgos, PAPI [address] [facility] [place] [address] documented as of this encounter Goals Goal Patient Goal Type Associated Problems Recent Progress Patient-Stated? Author Behavioral [facility] On track(2019 9:50 AM CDT) Yes Eloise Jenkins LCPC Note: Irma reported her goal for psychotherapy is to help me be able to deal with things in the present and in her past that are contributing to low and anxious mood. Goal Reviewed with: patient Readiness to change: Thinking about making a change Department associated with goal: [facility] Steps to achieve [...] make a change Department associated with goal: [facility] Steps to achieve [...] Procedure Name Priority Date/Time Associated Diagnosis Comments XR CHEST SINGLE VIEW PORTABLE STAT 06/16/2023 4:41 PM CDT URINALYSIS REFLEX IF INDICATED BY ABNORMAL RESULTS STAT 06/16/2023 4:31 PM CDT CULTURE, URINE STAT 06/16/2023 4:31 PM CDT D-DIMER STAT 06/16/2023 4:25 PM CDT CBC WITH AUTO DIFFERENTIAL STAT 06/16/2023 4:16 PM CDT TROPONIN I (TRP I) STAT 06/16/2023 4: 16 PM CDT MAGNESIUM (MG) STAT 06/16/2023 4:16 PM CDT CMP (COMPREHENSIVE METABOLIC PANEL) STAT 06/16/2023 4:16 PM CDT COMPLETE BLOOD COUNT (CBC) WITH DIFF STAT 06/16/2023 4:16 PM CDT EKG 12 LEAD STAT 06/16/2023 4:13 PM CDT documented in this encounter Results * XR CHEST SINGLE VIEW PORTABLE (06/16/2023 4:41 PM CDT) Anatomical Region Laterality Modality Chest N/A Digital Radiogra phy 06/16/2023 4:50 PM CDT Impressions 06/16/2023 4:52 PM CDT IMPRESSION: No acute abnormality identified. ?? Narrative 06/16/2023 4:52 PM CDT EXAM DESCRIPTION: XR CHEST SINGLE VIEW PORTABLE REASON FOR STUDY: Rt sided chest pressure amd intermittent rt shoulder pain x 4 days. HX: Smoker, Asthma, COPD, Bronchitis ?? TECHNIQUE: ??Portable upright AP view of the chest. COMPARISON: 12/05/2020 FINDINGS: LUNGS AND PLEURA: ??No focal opacity, large effusion, or pneumothorax identified. HEART/MEDIASTINUM: ??Trachea midline. ?? Cardiac silhouette normal in size. Mediastinal contours appear normal. BONES: ??Unremarkable. ?? CHEST WALL: ??Unremarkable. ?? UPPER ABDOMEN: ??Unremarkable. ?? THIS IS AN ELECTRONICALLY VERIFIED FINAL REPORT 06/16/2023 4:50 PM - Electronically signed by ??Daniel Cedeño M.D. AR: AR D: ??06/16/2023 4:50 PM T: ??06/16/2023 4:50 PM Report ID: [id number] Reading Location: ??[id number] Procedure Note Daniel Cedeño MD - 06/16/2023 EXAM DESCRIPTION: XR CHEST SINGLE VIEW PORTABLE REASON FOR STUDY: Rt sided chest pressure amd intermittent rt shoulder pain x 4 days. HX: Smoker, Asthma, COPD, Bronchitis TECHNIQUE: Portable upright AP view of the chest. COMPARISON: 12/05/2020 FINDINGS: LUNGS AND PLEURA: No focal opacity, large effusion, or pneumothorax identified. HEART/MEDIASTINUM: Trachea midline. Cardiac silhouette normal in size. Mediastinal contours appear normal. BONES: Unremarkable. CHEST WALL: Unremarkable. UPPER ABDOMEN: Unremarkable. THIS IS AN ELECTRONICALLY VERIFIED FINAL REPORT 06/16/2023 4:50 PM - Electronically signed by Daniel Cedeño M.D. AR: AR Report ID: [id number] Reading Location: [id number] IMPRESSION: No acute abnormality identified. Trell Minor MD [facility] DIAGNOSTIC ORDERABLES Final Result * Culture, Urine (06/16/2023 4:31 PM CDT) CULTURE RESULTS MIXED GROWTH OF ONE OR MORE DISTAL URETHRAL CONTAMINANTS 06/18/2023 10:19 AM CDT [facility] Urine URINE SPECIMEN / Unknown Non-Phlebotomy Collection / Unknown 06/16/2023 4:31 PM CDT 06/16/2023 5:25 PM CDT us Trell Minor MD MICROBIOLOGY - GENERAL ORDERABL ES Final Result [facility] [address] [place] [address], [place] * (ABNORMAL) Urinalysis w/ Reflex (06/16/2023 4:31 PM CDT) SPECIFIC GRAVITY 1.010 1.003 - 1.030 06/16/2023 5:57 PM CDT [facility] URINE PH 6.5 5.0 - 9.0 06/16/2023 5:57 PM CDT [facility] WBC ESTERASE 25 /ul(A) Negative 06/16/2023 5:57 PM CDT [facility] NITRITE Negative Negative 06/16/2023 5:57 PM CDT [facility] PROTEIN, RANDOM URINE 15 mg/dL(A) Negative 06/16/2023 5:57 PM CDT [facility] URINE GLUCOSE, QUAL Negative Negative 06/16/2023 5:57 PM CDT [facility] URINE KETONES Negative Negative 06/16/2023 5:57 PM CDT [facility] UROBILINOGEN Normal Normal mg/dL 06/16/2023 5:57 PM CDT [facility] URINE BLOOD Negative Negative papi/ul 06/16/2023 5:57 PM CDT [facility] URINALYSIS COLOR Yellow 06/16/20 5:57 PM CDT [facility] URINALYSIS CLARITY Clear 06/16/2023 5:57 PM CDT [facility] WBC (Urine) 6-10(A) Negative, 0-5 /hpf 06/16/2023 5:57 PM CDT [facility] URINE RBC'S Negative Negative, 0-2 /hpf 06/16/2023 5:57 PM CDT [facility] EPITHELIAL CELLS Moderate amount /lpf 06/16/2023 5:57 PM CDT [facility] BACTERIA, URINE Few(A) Negative /hpf 06/16/2023 5:57 PM CDT [facility] Urine URINE SPECIMEN / Unknown Non-Phlebotomy Collection / Unknown 06/16/2023 4:31 PM CDT 06/16/2023 5:25 PM CDT Trell Minor MD URINE ORDERABLES Final Result Performing Organization Address City/[facility] Co de Phone Number [facility] [address] [place] [address] * D-Dimer (06/16/2023 4:25 PM CDT) Pathologist [facility] D DIMER 0.49 <0.50 mcg/mL FEU 06/16/2023 4:54 PM CDT [facility] Blood Venipuncture / Unknown 06/16/2023 4:25 PM CDT 06/16/2023 4:31 PM CDT Narrative [facility] - 06/16/2023 4:54 PM CDT The FDA has approved this method to exclude the diagnosis of DVT and/or PE at the cutoff value of <0.50 mcg/mL FEU. Trell Minor MD HEMATOLOGY ORDERABLES Final Res ult Performing Organization Address City/[facility]/ZIP Co de Phone Number [facility] [address] [place] [address] * (ABNORMAL) CBC with Auto Differential (06/16/2023 4:16 PM CDT) WBC 9.64 4.00 - 12.00 10(3)/mcL 06/16/2023 4:33 PM CDT [facility] RBC 4.04 3.80 - 5.30 10(6)/mcL 06/16/2023 4:33 PM CDT [facility] HEMOGLOBIN (HGB) 13.0 12.0 - 15.8 g/dL 06/16/2023 4:33 PM CDT [facility] HEMATOCRIT (HCT) 39.6 36.0 - 47.0 % 06/16/2023 4:33 PM CDT [facility] MCV 98.0(H) 82.0 - 96.0 fL 06/16/2023 4:33 PM CDT [facility] MCH 32.2 26.0 - 34.0 pg 06/16/2023 4:33 PM CDT [facility] MCHC 32.8 31.0 - 36.0 g/dL 06/16/2023 4:33 PM CDT [facility] PLATELET COUNT 230 140 - 440 10(3)/mcL 06/16/2023 4:33 PM CDT [facility] RDW 12.4 11.8 - 15.5 % 06/16/2023 4:33 PM CDT [facility] MPV 12.4 9.7 - 12.4 fL 06/16/2023 4:33 PM CDT [facility] NEUTROPHILS 52.6 47.0 - 73.0 % 06/16/2023 4:33 PM CDT [facility] LYMPHOCYTES 29.7 18.0 - 42.0 % 06/16/2023 4:33 PM CDT [facility] MONOCYTES 12.8(H) 4.0 - 12.0 % 06/16/2023 4:33 PM CDT [facility] EOSINOPHILS 4.1 0.0 - 5.0 % 06/16/2023 4:33 PM CDT [facility] BASOPHILS 0.8 0.0 - 1.0 % 06/16/2023 4:33 PM CDT [facility] ABSOLUTE NEUTROPHILS 5.07 1.60 - 7.70 10(3)/mcL 06/16/2023 4:33 PM CDT [facility] ABSOLUTE LYMPHOCYTES 2.86 1.30 - 3.20 10(3)/mcL 06/16/2023 4:33 PM CDT [facility] ABSOLUTE MONOCYTES 1.23(H) 0.20 - 1.00 10(3)/[facility] 06/16/2023 4:33 PM CDT [facility] ABSOLUTE EOSINOPHIL 0.40 0.00 - 0.40 10(3)/mcL 06/16/2023 4:33 PM CDT [facility] ABSOLUTE BASOPHILS 0.08 0.00 - 0.10 10(3)/[facility] 06/16/2023 4:33 PM CDT [facility] NRBC PER 100 WBC 0 06/16/20 4:33 PM CDT [facility] Blood Venipuncture / Unknown 06/16/2023 4:16 PM CDT 06/16/2023 4:31 PM CDT Rajeev Babb PAC HEMATOLOGY ORDERABLE S Final Result Performing Organization Address City/[facility]/ZIP Co de Phone Number [facility] [address] [place] [address] * Troponin I (Trp I) (06/16/2023 4:16 PM CDT) [facility] TROPONIN I <0.300 <=0.300 ng/mL 06/16/2023 5:02 PM CDT [facility] Blood Venipuncture / Unknown 06/16/2023 4:16 PM CDT 06/16/2023 4:31 PM CDT Rajeev Babb PAC CHEMISTRY ORDERABLES Final Result [facility] [place] [address] * Magnesium (06/16/2023 4:16 PM CDT) Pathologist [facility] MAGNESIUM 1.8 1.8 - 2.5 mg/dL 06/16/2023 4:55 PM CDT [facility] Blood Venipuncture / Unknown 06/16/2023 4:16 PM CDT 06/16/2023 4:31 PM CDT us Rajeevchema Bowman Holley PAC CHEMISTRY ORDERABLES Final Result [facility] [place] [address] * (ABNORMAL) CMP (06/16/2023 4:16 PM CDT) SODIUM 136 136 - 144 mmol/L 06/16/2023 4:55 PM CDT [facility] POTASSIUM 3.8 3.5 - 5.1 mmol/L 06/16/2023 4:55 PM CDT [facility] CHLORIDE 104 100 - 110 mmol/L 06/16/2023 4:55 PM CDT [facility] CO2, VENOUS 23 22 - 32 mmol/L 06/16/2023 4:55 PM CDT [facility] ANION GAP 12.8 8.0 - 20.0 mmol/L 06/16/2023 4:55 PM CDT [facility] GLUCOSE 95 70 - 99 mg/dL 06/16/2023 4:55 PM CDT [facility] BUN 11 6 - 20 mg/dL 06/16/2023 4:55 PM CDT [facility] CREATININE, BLOOD 0.54(L) 0.60 - 1.10 mg/dL 06/16/2023 4:55 PM CDT [facility] BUN/CREATININE RATIO 20 12 - 20 ratio 06/16/2023 4:55 PM CDT [facility] TOTAL PROTEIN 7.5 6.0 - 8.3 g/dL 06/16/2023 4:55 PM CDT [facility] ALBUMIN 4.3 3.5 - 5.2 g/dL 06/16/2023 4:55 PM CDT [facility] Comment: The colormetric methods used for the determination of Albumin may lead to falsely elevated test results in patients suffering from renal failure or insufficiency due to interference with other proteins. A/G RATIO 1.3 1.0 - 2.0 06/16/2023 4:55 PM CDT [facility] CALCIUM 9.2 8.7 - 10.5 mg/dL 06/16/2023 4:55 PM CDT [facility] T BILI 0.2 0.2 - 1.2 mg/dL 06/16/2023 4:55 PM CDT [facility] SGOT (AST) 34(H) <=32 U/L 06/16/2023 4:55 PM CDT [facility] SGPT (ALT) 47(H) <=41 U/L 06/16/2023 4:55 PM CDT [facility] ALKALINE PHOSPHATASE 81 35 - 105 U/L 06/16/2023 4:55 PM CDT [facility] GFR, ESTIMATED >60 >=60 06/16/2023 4:55 PM CDT [facility] Comment: Creatinine Clearance is the preferred criteria for selecting drug dose adjustments in renally impaired patients. ??The GFR is provided as additional pertinent clinical information. GFR is reported in mL/min/1.73 sq m. Calculation based on the Chronic Kidney Disease Epidemiology Collaboration (CKD- EPI) equation refit without adjustment for race. GFR, EST. >60 >=60 023 4:55 PM CDT [facility] GFR, EST. NONAFRICAN >60 >=60 06/16/2023 4:55 PM CDT [facility] Blood Venipuncture / Unknown 06/16/2023 4:16 PM CDT 06/16/2023 4:31 PM CDT us Rajeev Babb PAC CHEMISTRY ORDERABLES Final Result [facility] [place] [address] * EKG 12 LEAD (06/16/2023 4:13 PM CDT) Ventricular Rate 79 BPM EXTERNAL EKG Atrial Rate 79 BPM EXTERNAL EKG P-R Interval 132 ms EXTERNAL EKG QRS Duration 80 ms EXTERNAL EKG Q-T Duration 364 ms EXTERNAL EKG QTC CALCULATION 417 ms EXTERNAL EKG P [place] 40 degrees EXTERNAL EKG R [place] 10 degrees EXTERNAL EKG T [place] 22 degrees EXTERNAL EKG 06/16/2023 4:13 PM CDT Impressions EXTERNAL EKG - 06/17/2023 2:32 PM CDT Normal sinus rhythm with sinus arrhythmia Normal ECG No previous ECGs available Confirmed by Carl Montejo ([id number]) on 06/17/2023 2:32:34 PM Narrative Procedure Note Carl Garcia MD - 06/17/2023 IMPRESSION: Normal sinus rhythm with sinus arrhythmia Normal ECG No previous ECGs available Confirmed by Carl Montejo ([id number]) on 06/17/2023 2:32:34 PM Rajeev Babb PAC IMG ECG ORDERABLES F inal Result EXTERNAL EKG documented in this encounter Visit Diagnoses Diagnosis Chest pain, unspecified type- Primary documented in this encounter Administered Medications Inactive Administered Medications - up to 3 most recent administrations Medication Order MAR Action Action Date Dose Rate Site 0.9 % sodium chloride solution at 126 mL/hr, Intravenous, CONTINUOUS, Starting on Wed06/16/23 at 1700, Until Wed06/16/23 at 2049 New Bag 06/16/2023 4:32 PM CDT 126 mL/hr 126 mL/hr documented in this encounter Active and Recently Administered Medications Times are shown in CDT. Continuous Medication Order 06/14/2023 06/15/2023 06/16/2023 0.9 % sodium chloride solution at 126 mL/hr, Intravenous, CONTINUOUS, Starting on Wed06/16/23 at 1700, Until Wed06/16/23 at 2049 1632 (New Bag - Prov ider: Marli Cosby RN)[id number] (Stopped - Provider: Marli Cosby RN) documented in this encounter Additional Health Concerns Assessment Noted Time PHQ-9 Depression Total Score: 04/16/2 020 2:00 PM CDT documented as of this encounter Care Teams Car Barn Laborer Relationship Specialty Start Date End Date Sravani Ramsay MD [address] [place] [address] PCP - General Family Medicine 04/23/23 12/30/23 documented as of this encounter
--- OUTSIDE RECORDS SUMMARY | 2024-11-30 17:13 | XMS_ITS | Encounter Summary ---
Author Organization [facility] Address [address] [place] [place] [address] Phone Care Team Providers Care Clerk Name Role Phone Amaya Kowalski APRN, CNP Primary Care Provider Sravani Ramsay MD Primary Care Provider [phone] Arnold Roberts MD Unavailable Shravan Burgos Primary Care Provider + [phone] Reason for Visit * Reason Onset Date Comments Cough 11/26/2022 Encounter Details Date Type Department Care Team ([facility] Contact Info) Description 11/26/2022 Nurse Triage [facility] - Primary Care - [place] [address] [place] [address] Amaya Kowalski APRN, FLOORHAND [address] [place] [address] Cough Social History Tobacco Use Types Packs/Day Years [...] Coronavirus/COVID-19? No / Unsure 11/26/2022 4:19 PM MEDICAL DETAIL REPRESENTATIVE documented as of this encounter Miscellaneous Notes * Telephone Encounter - Mohini Aguirre RN - 11/26/2022 11:57 AM MEDICAL DETAIL REPRESENTATIVE SITUATION: Cough which is keeping her up at night. Now today has wheezing. BACKGROUND: Son tested positive for flu a few weeks ago. Had a 24-hour bug a few weeks ago. Had to start wearing wasks at work again about 2 weeks ago. Started coughing after that. Did switch maskswith a little relief but still coughing. HISTORY: Chronic bronchitis And sinusitis ASSESSMENT & RECOMMENDATION: APPOINTMENT MADE IN OFFICE First positive answer recorded, all responses to prior questions were negative. If symptoms increase, change or if new symptoms develop, call your HCP or call back. Recommendations were based on caller information and is not a diagnosis. Verified and reviewed all triage information with caller. Teach-back method utilized. Reason for Disposition ??? Patient wants to be seen Answer Assessment - Initial Assessment Questions 1. ONSET: When did the cough begin? 11/19/2022 2. SEVERITY: How bad is the cough today? Worse at night but still present during the day. 3. SPUTUM: Describe the color of your sputum (none, dry cough; clear, white, yellow, green) yellow 4. HEMOPTYSIS: Are you coughing up any blood? If so ask: How much? (flecks, streaks, tablespoons, etc.) No blood in sputum 5. DIFFICULTY BREATHING: Are you having difficulty breathing? If Yes, ask: How bad is it? (e.g., mild, moderate, severe) - MILD: No SOB at rest, mild SOB with walking, speaks normally in sentences, can lay down, no retractions, pulse < 100. - MODERATE: SOB at rest, SOB with minimal exertion and prefers to sit, cannot lie down flat, speaksin phrases, mild retractions, audible wheezing, pulse 100-120. - SEVERE: Very SOB at rest, speaks in single words, struggling to breathe, sitting hunched forward,retractions, pulse > 120 none 6. FEVER: Do you have a fever? If Yes, ask: What is your temperature, how was it measured, and when did it start? no 7. CARDIAC HISTORY: Do you have any history of heart disease? (e.g., heart attack, congestive heart failure) no 8. LUNG HISTORY: Do you have any history of lung disease? (e.g., pulmonary embolus, asthma, emphysema) Chronic bronchitis 9. PE RISK FACTORS: Do you have a history of blood clots? (or: recent major surgery, recent prolonged travel, bedridden) no 10. OTHER SYMPTOMS: Do you have any other symptoms? (e.g., runny nose, wheezing, chest pain) wheezing 11. : Is there any chance you are ? When was your last menstrual period? no 12. TRAVEL: Have you traveled out of the country in the last month? (e.g., travel history, exposures) no Protocols used: COUGH-A-OH CAL DETAIL REPRESENTATIVE * Telephone Encounter - Mohini Aguirre RN - 11/26/2022 11:55 AM CSTFrom: Irma Seymour To: Ivelisse Kowalski Sent: 11/26/2022 11:18 AM MEDICAL DETAIL REPRESENTATIVE Subject: Cough Hello. So I have been having a raspy cough since and isn't getting better. I have been taking Robutissin DM and using my inhalers. I can't sleep very good at night due to the cough. In the middle of the night I got up and I was wheezing which since I been up moving around the wheezing subsided a bit. I was wondering if you could call me in the cough medicine w/codeine or something or should I be tested for RSV. Please let me know. I work till 3pm. CAL DETAIL REPRESENTATIVE documented in this encounter Plan of Treatment Upcoming Encounters Date Type Department Care Team (Late st Contact Info) Description 03/21/2025 4:30 PM CDT Office Visit [facility] - Primary Care - [place] [address] [place] [address] Shravan Burgos, PAPI [address] [place] [address] documented as of this encounter [...] a change Department associated with goal: [facility] Steps to [...] a change Department associated with goal: [facility] Steps to [...] - 19 11/26/2022 11/26/2022 11/26/2022 4:47 PM MEDICAL DETAIL REPRESENTATIVE COVID - 19 11/26/2022 11/26/2022 12/06/2022 12:1 9 AM MEDICAL DETAIL REPRESENTATIVE Assessment Noted Time PHQ-9 Depression Total Score: 13 020 2:00 PM CDT documented as of this encounter Care Teams Clerk Relationship Specialty Start Date End Date Amaya Kowalski, TRIPOLER, FLOORHAND [address] [place] [address] PCP - General Advanced Practice Nurse 06/10/18 04/22/23 Sravani Ramsay MD [address] [place] [address] PCP - General Family Medicine 04/23/23 12/30/23 Shravan Burgos, PAC [address] [place] [address] PCP - General Physician Construction Crew Member 12/31/23 Arnold Roberts MD [address] [place] [id number] Consulting Physician Pulmonary Disease 07/26/23 documented as of this encounter
--- OUTSIDE RECORDS SUMMARY | 2024-11-30 17:13 | XMS_ITS | Encounter Summary ---
Author Organization [facility] Address [address] [place] [address] Phone Care Team Providers Care Hiv Prevention Specialist Name Role Phone Amaya Kowalski APRN, DOUGLAS Primary Care Provider Reason for Visit * Reason Comments Medication Refill Encounter Details Date Type Department Care Team ([facility] st Contact Info) Description 01/11/2023 Refill [facility] - [place] [address] [place] [address] Amaya Kowalski APRN, ARRANGER ASSEMBLER [address] [place] [address] Medication Refill Social History Tobacco [...] Coronavirus/COVID-19? No / Unsure 12/23/2022 3:33 PM DULITE MACHINE BLUER documented as of this encounter Miscellaneous Notes * Telephone Encounter - Mohini Aguirre RN - 01/11/2023 11:38 AM DULITE MACHINE BLUER Medication(s) refilled and signed per [facility] Chronic Medication Refill Standing Order for Pediatricand Adult Patients. Requested Prescriptions Pending Prescriptions Disp Refills ??? Symbicort 160-4.5 MCG/ACT Aerosol [Pharmacy Med Name: SYMBICORT 160-4.5 MCG INHALER] 10.2 g 1 Sig: INHALE TWO PUFFS BY MOUTH TWO TIMES A DAY Inhaled Combinations Protocol Passed - 01/11/2023 12:01 AM Passed - Visit with relevant provider in past 12 months or upcoming 90 days Recent Visits Date Type Provider Dept 11/26/22 Office Visit Shravan Burgos PAC [facility] 11/16/22 Office Visit Amaya Kowalski APRN, ARRANGER ASSEMBLER [facility] 08/12/22 Office Visit Sravani Ramsay MD [facility] Showing recent visits within past 365 days and meeting all other requirements Future Appointments No visits were found meeting these conditions. Showing future appointments within next 90 days and meeting all other requirements Passed - Active short-acting beta agonist prescription TE MACHINE BLUER documented in this encounter Plan of Treatment Upcoming Encounters Date Type Department Care Team (Late st Contact Info) Description 03/21/2025 4:30 PM CDT Office Visit [facility] - Primary Care - [address] [place] [address] Shravan Burgos, PAC [address] [place] [address] documented as of this encounter Goals Goal Patient Goal Type Associated Problems Recent Progress Patient-Stated? Author [facility] On track(2019 9:50 AM [...] and past) that trigger mood concerns. [facility] On track(2019 9:50 AM [...] documented as of this encounter Care Teams Hiv Prevention Specialist Relationship Specialty Start Date End Date Amaya Kowalski, DOPE FIRER, ARRANGER ASSEMBLER [address] [place] [address] PCP - General Advanced Practice Nurse 06/10/18 documented as of this encounter
--- OUTSIDE RECORDS SUMMARY | 2024-11-30 17:13 | XMS_ITS | Encounter Summary ---
Author Organization [facility] Address [address] [place] [address] Phone Care Team Providers Care Plc Programmer Name Role Phone Amaya Kowalski APRN, CNP Primary Care Provider Reason for Visit * Reason Comments Cough X1 week Wheezing Encounter Details Date Type Department Care Team ([facility] st Contact Info) Description 11/26/2022 4:30 PM COORDINATOR OF GENETIC SERVICES Office Visit [facility] - Primary Care - [place] [address] [place] [address] Shravan Burgos PAC [address] [place] [address] Mild persistent asthma with exacerbation (Primary Dx); Simple chronic bronchitis (HCC); Acute cough Discharge Disposition: Discharged to home or Selfcare [...] Coronavirus/COVID-19? No / Unsure 11/26/2022 4:19 PM COORDINATOR OF GENETIC SERVICES documented as of this encounter Last Filed Vital Signs Vital Sign Reading Time Taken Comments Blood Pressure 116/72 11/26/2022 4:21 PM COORDINATOR OF GENETIC SERVICES Pulse 78 11/26/2022 4:21 PM COORDINATOR OF GENETIC SERVICES Temperature 36.4 ??C (97.5 ??F) 11/26/2022 4:21 PM CS T Respiratory Rate 18 11/26/2022 4:21 PM COORDINATOR OF GENETIC SERVICES Oxygen Saturation 98% 11/26/2022 4:21 PM COORDINATOR OF GENETIC SERVICES Inhaled Oxygen Concentration - - Weight 64 kg (141 lb) 11/26/2022 4:21 PM COORDINATOR OF GENETIC SERVICES Height 160 cm (5' 3 ) 11/26/2022 4:21 PM COORDINATOR OF GENETIC SERVICES Body Mass Index 24.98 11/26/2022 4:21 PM COORDINATOR OF GENETIC SERVICES documented in this encounter Patient Instructions * Patient Instructions* Shravan Burgos PAC - 11/26/2022 4:30 PM COORDINATOR OF GENETIC SERVICES PCR covid testing today. Will call with results. Start medrol pack and take as prescribed. Continue with albuterol as needed. Strongly recommend resuming the Symbicort twice daily as prescribed. Continue with nicole daily as well. Mucinex as needed. Follow up with PCP if symptoms persist. Take all medications as prescribed. Please continue with a balanced lifestyle of exercise and healthy eating. If any question, please call. Thanks for coming in today! DINATOR OF GENETIC SERVICES DINATOR OF GENETIC SERVICES documented in this encounter Progress Notes * Bhumi Smith, RMA - 11/26/2022 4:30 PM CST Irma Seymour, 42 y.o., female is here for Cough (X1 week ) and Wheezing Medication Refills: Patient reports/denies need for medication [...] Yes Amaya Kowalski APRN, CNP LORazepam (ATIVAN) 1 MG Tablet Take 1 Tablet by mouth 2 times daily as needed for Anxiety. 11/18/22Yes Amaya Kowalski APRN, CNP Respiratory Therapy Supplies (NEBULIZER) Device Use 4x/day prn. 02/14/19 Yes Amaya Kowalski APRN, CNP Respiratory Therapy Supplies (NEBULIZER/TUBING/MOUTHPIECE) Kit Use 4 times daily prn 02/16/19 Yes Amaya Kowalski APRN, CNP Symbicort 160-4.5 MCG/ACT Aerosol INHALE TWO PUFFS BY MOUTH TWO TIMES A DAY 11/04/22 Yes Amaya Kowalski APRN, DOUGLAS There are no [...] Date Due ??? Pneumococcal Immunization Combined (1 - PCV) Never done ??? DTaP/Tdap/Td Immunization (1 - Tdap) Never done ??? Cervical Cancer Screening (CCS) Never done ??? Hepatitis B Immunization (3 of 3 - 19+ 3-dose series) 01/26/2015 ??? SARS-COV-2 Immunization (3 - Booster for Pfizer series) 01/02/2022 Orders Pended: no The following BPA's have been addressed with the patient today: N/A DINATOR OF GENETIC SERVICES * Shravan Burgos PAC - 11/26/2022 4:30 PM CST HPI: Patient is a 42 y.o. female who presents today for Cough (X1 week ) and Wheezing Patient has complaints of dry cough, SOB (on exertion), wheezing (at night) Denies fever, ear pain, sore throat, body aches, N/V Symptoms began 1 week ago Symptoms show no change since onset. Patient is currently taking albuterol, robitussin DM, nicole for their symptoms. Patients son tested positive for influenza about 2 weeks ago. Medications: Current Outpatient Medications Medication Sig Dispense [...] DAILY 360 mL 11 ??? LORazepam (ATIVAN) 1 MG Tablet Take 1 Tablet by mouth 2 times daily as needed for Anxiety. 30 Tablet 0 ??? methylPREDNISolone (Medrol) 4 MG Tablet Therapy Pack Use as per instructions on package. 21 Tablet 0 ??? Respiratory Therapy Supplies (NEBULIZER) [...] negative except as documented in HPI. Vitals: 11/26/22 1621 BP: 116/72 Pulse: 78 Resp: 18 Temp: 97.5 ??F (36.4 ??C) SpO2: 98% Weight: 141 lb (64 kg) Height: 5' 3 (1.6 m) Body mass index is 24.98 kg/m??. Physical Exam Vitals and nursing note reviewed. Constitutional: General: She is not in acute distress. Appearance: Normal appearance. HENT: Head: Normocephalic and atraumatic. Right Ear: Hearing, tympanic membrane, ear canal and external ear normal. Left Ear: Hearing, tympanic membrane, ear canal and external ear normal. Nose: Right Sinus: No maxillary sinus tenderness or frontal sinus tenderness. Left Sinus: No maxillary sinus tenderness or frontal sinus tenderness. Mouth/Throat: Lips: [place]. Mouth: Mucous membranes are moist. Pharynx: Oropharynx is clear. Cardiovascular: Rate and Rhythm: Normal rate and regular rhythm. Heart sounds: Normal heart sounds. Pulmonary: Effort: Pulmonary effort is normal. Breath sounds: Normal breath sounds. Lymphadenopathy: Head: Right side of head: No submandibular or tonsillar adenopathy. Left side of head: No submandibular or tonsillar adenopathy. Cervical: No cervical adenopathy. Skin: General: Skin is warm. Capillary Refill: Capillary refill takes less than 2 seconds. Neurological: General: No focal deficit present. Mental Status: She is alert and oriented to person, place, and time. Available past, family, surgical, and social history reviewed and updated in the chart. Assessment/Plan: Diagnoses and all orders for this visit: Mild persistent asthma with exacerbation - methylPREDNISolone (Medrol) 4 MG Tablet Therapy Pack; Use as per instructions on package. Simple chronic bronchitis (HCC) - methylPREDNISolone (Medrol) 4 MG Tablet Therapy Pack; Use as per instructions on package. Acute cough - Cancel: POCT SARS ANTIGEN RITESH - SARS-COV-2 BY MOLECULAR; Future - SARS-COV-2 BY MOLECULAR Patient Instructions PCR covid testing today. Will call with results. Start medrol pack and take as prescribed. Continue with albuterol as needed. Strongly recommend resuming the Symbicort twice daily as prescribed. Continue with nicole daily as well. Mucinex as needed. Follow up with PCP if symptoms persist. Take all medications as prescribed. Please continue [...] the patient. Documentation for this visit on 11/26/22 was completed using a template. I have seen and examined the patient. Everything documented was personally performed at this visit with the necessary additions, deletions and changes made as appropriate. DINATOR OF GENETIC SERVICES documented in this encounter Plan of Treatment Upcoming Encounters Date Type Department Care Team (Late st Contact Info) Description 03/21/2025 4:30 PM CDT Office Visit [facility] - Primary Care - [place] [address] [place] [id number] Shravan Burgos PAC [address] [place] [phone] documented as of this encounter Goals Goal [...] making a change Department associated with goal: [facility] Steps to achieve [...] make a change Department associated with goal: [facility] Steps to achieve [...] Procedure Name Priority Date/Time Associated Diagnosis Comments SARS-COV-2 BY MOLECULAR Routine 11/26/2022 5:06 PM COORDINATOR OF GENETIC SERVICES Acute cough documented in this encounter Results * SARS-COV-2 BY MOLECULAR (11/26/2022 5:06 PM COORDINATOR OF GENETIC SERVICES) SARSCOV2 NOT DETECTED (Referen ce Range for this test is Not Detected ) [facility] THERMOFISHER FAST DX 11/27/2022 11:04 PM COORDINATOR OF GENETIC SERVICES [facility] Comment:This test was perfor med by a RT-PCR method. Other NASOPHARYNGEAL STRUCTURE / Unknown Non-Phlebotomy Collection / Unknown 11/26/2022 5:06 PM COORDINATOR OF GENETIC SERVICES 11/26/2022 5:06 PM COORDINATOR OF GENETIC SERVICES Narrative [facility] - 11/27/2022 11:04 PM COORDINATOR OF GENETIC SERVICES Authorized Fact Sheets about this test for providers and patients are available at: https://www.fda.gov/medical-devices/yptbkwvui-wtomfayrwf-lhvmlcv-devices/emergen -us e-authorizations us Shravan Burgos PAC MICROBIOLOGY - GENERAL ORDER MARK Final Result [facility] [address] [place] [address], [place] documented in this encounter Visit Diagnoses Diagnosis Mild persistent asthma with exacerbation- Primary Unspecified asthma, with exacerbation Simple chronic bronchitis (HCC) Simple chronic bronchitis Acute cough documented in this encounter Additional Health Concerns Infection Onset Date Last Indicated Resolved Time COVID - 19 11/26/2022 11/26/2022 11/26/2022 4:47 PM COORDINATOR OF GENETIC SERVICES COVID - 19 11/26/2022 11/26/2022 12/06/2022 12:1 9 AM COORDINATOR OF GENETIC SERVICES Assessment Noted Time PHQ-9 Depression Total Score: 13 020 2:00 PM CDT documented as of this encounter Care Teams Plc Programmer Relationship Specialty Start Date End Date Amaya Kowalski, AIRCRAFT REFUELER, ENGINE DESIGNER [address] [place] [address] PCP - General Advanced Practice Nurse 06/10/18 documented as of this encounter
--- OUTSIDE RECORDS SUMMARY | 2024-11-30 17:13 | XMS_ITS | Encounter Summary ---
Author Organization [employer] Care Team Providers Care Electric Blanket Packer Name Role Phone Sravani Ramsay MD Primary Care Provider Encounter Details Date Type Department Care Team (Latest Contact Info) Description 04/23/2023 Travel Social History Tobacco Use Types Packs/Day [...] Description 03/21/2025 4:30 PM CDT Office Visit [facility] Medical [facility] - Primary Care - [place] [address] [place] [address] Shravan Burgos, PAC [address] [place] [address] documented as of this encounter Goals Goal Patient Goal Type Associated Problems Recent Progress Patient-Stated? Author [facility] Behavioral Health On track(2019 9:50 AM CDT) Yes Eloise Jenkins LCPC Note: Irma reported her goal for psychotherapy is to help me be able to deal with things in the present and in her past that are contributing to low and anxious mood. Goal Reviewed with: patient Readiness to change: Thinking about making a change Department associated with goal: [facility] Steps to achieve [...] and past) that trigger mood concerns. Behavioral [facility] Behavioral Health On track(2019 9:50 AM CDT) No Eloise Jenkins LCPC Note: Irma will engage in a plan of action to improve emotional and mental wellbeing. Goal Reviewed with: patient Readiness to change: Not yet ready to make a change Department associated with goal: [facility] Steps to achieve [...] documented as of this encounter Care Teams Electric Blanket Packer Relationship Specialty Start Date End Date Sravani Ramsay MD [address] [place] [address] PCP - General Family Medicine 04/23/23 12/30/23 documented as of this encounter
--- OUTSIDE RECORDS SUMMARY | 2024-11-30 17:13 | XMS_ITS | Encounter Summary ---
Author Organization [facility] Address [address] [place] [address] Phone Care Team Providers Care Ash Pit Worker Name Role Phone Amaya Kowalski APRN, CNP Primary Care Provider Reason for Visit * Reason Onset Date Comments Appointment 11/16/2022 Encounter Details Date Type Department Care Team ([facility] Contact Info) Description 11/16/2022 Telephone [facility] - Primary Care - [place] [address] [place] [address] Amaya Kowalski APRN, PLATE GLASS POLISHER [address] [place] [address] Appointment Social History Tobacco Use Types Packs/Day Years [...] Coronavirus/COVID-19? No / Unsure 11/16/2022 3:52 PM VICE PRESIDENT REGULATORY documented as of this encounter Miscellaneous Notes * Telephone Encounter - Mohini Aguirre RN - 11/17/2022 12:20 PM VICE PRESIDENT REGULATORY Patient seen in office for this already. PRESIDENT REGULATORY * Telephone Encounter - Mohini Aguirre RN - 11/16/2022 1:38 PM VICE PRESIDENT REGULATORY Per PCP she will look at patient's eye. Phoned patient to schedule, call went straight to voicemail. Left message for return call. PRESIDENT REGULATORY * Telephone Encounter - Mohini Aguirre RN - 11/16/2022 1:37 PM VICE PRESIDENT REGULATORY ----- Message from Eloise Preciado sent at 11/16/2022 12:42 PM VICE PRESIDENT REGULATORY ----- Regarding: FW: Appointment Request Contact: ----- Message ----- From: Irma Seymour Sent: 11/16/2022 12:16 PM VICE PRESIDENT REGULATORY To: [facility] Subject: Appointment Request Appointment Request From: Irma Seymour With Provider: Amaya Kowalski APRN, PLATE GLASS POLISHER [[facility] - Family Medicine - [facility]] Preferred Date Range: 11/16/2022 ??? 11/16/2022 Preferred Times: Any Time Reason for visit: Eye problem Comments: I poked my eye yesterday evening with adela gould and can't get into eye dr to look at it. PRESIDENT REGULATORY documented in this encounter Plan of Treatment Upcoming Encounters Date Type Department Care Team (Late st Contact Info) Description 03/21/2025 4:30 PM CDT Office Visit [facility] - Primary Care - [place] [address] [place] [address] Shravan Burgos PAC [address] [place] [address] documented as of this encounter Goals Goal Patient Goal Type Associated Problems Recent Progress Patient-Stated? Author Behavioral [facility] Behavioral Health On track(2019 9:50 AM CDT) Yes Eloise Jenkins LCPC Note: Irma reported her goal for psychotherapy is to help me be able to deal with things in the present and in her past that are contributing to low and anxious mood. Goal Reviewed with: patient Readiness to change: Thinking about making a change Department associated with goal: [facility] BEHAVIORAL HEALTH SERVICES Steps to [...] make a change Department associated with goal: [facility] Steps to [...] documented as of this encounter Care Teams Ash Pit Worker Relationship Specialty Start Date End Date Amaya Kowalski, POWER EQUIPMENT TECHNOLOGY INSTRUCTOR, PLATE GLASS POLISHER [address] [place] [place] [address] PCP - General Advanced Practice Nurse 06/10/18 documented as of this encounter
--- OUTSIDE RECORDS SUMMARY | 2024-11-30 17:13 | XMS_ITS | Encounter Summary ---
Author Organization [facility] Address [address] [place] [address] Phone Care Team Providers Care Supervisor Benzene Refining Name Role Phone Sravani Ramsay MD Primary Care Provider Reason for Visit * Reason Onset Date Comments Appointment 05/24/2023 Encounter Details Date Type Department Care Team ([facility] st Contact Info) Description 05/24/2023 Telephone [facility] - Primary Care - [place] [address] [place] [address] Sravani Ramsay MD [address] [place] [address] Appointment Social History Tobacco Use [...] Telephone Encounter - Melonie Herrera CMA - 05/24/2023 8:51 AM CDT Called to schedule fasting labs and 3 month follow up. Provider would like to see patient back in office in June 2023. Attempted to notify Irma Seymour. No answer, left message to call back. documented in this encounter Plan of Treatment Upcoming Encounters Date Type Department Care Team (Late st Contact Info) Description 03/21/2025 4:30 PM CDT Office Visit [facility] Medical [facility] - Primary Care - [place] [address] [place] [address] Shravan Burgos PAC [address] [place] [address] documented as of this encounter Goals Goal Patient Goal Type Associated Problems Recent Progress Patient-Stated? Author Behavioral Health Behavioral Health On track(2019 9:50 AM CDT) Yes Eloise Jenkins, ASSISTANT RESEARCH SCIENTIST Note: Irma reported her goal for psychotherapy is to help me be able to deal with things in the present and in her past that are contributing to low and anxious mood. Goal Reviewed with: patient Readiness to change: Thinking about making a change Department associated with goal: [facility] BEHAVIORAL HEALTH SERVICES Steps to [...] track(2019 9:50 AM CDT) No Eloise Jenkins, [facility] Note: Irma will engage in a plan of action to improve emotional and mental wellbeing. Goal Reviewed with: patient Readiness to change: Not yet ready to make a change Department associated with goal: [facility] BE[facility]AVIORAL HE[facility] SERVICES Steps to [...] documented as of this encounter Care Teams Supervisor Benzene Refining Relationship Specialty Start Date End Date Sravani Ramsay MD [address] [place] [address] PCP - General Family Medicine 04/23/23 12/30/23 documented as of this encounter
--- OUTSIDE RECORDS SUMMARY | 2024-11-30 17:13 | XMS_ITS | Encounter Summary ---
Author Organization [facility] Address [address] [place] [address] Phone Care Team Providers Care Tank Wagon Operator Name Role Phone Sravani Ramsay MD Primary Care Provider + [phone] Arnold Roberts MD Unavailable Shravan Burgos Primary Care Provider + [phone] Reason for Visit * Reason Comments Medication Refill Encounter Details Date Type Department Care Team (Late st Contact Info) Description 05/10/2023 Refill [facility] - Primary Care - [place] [address] [place] [address] Amaya Kowalski, LYE PEEL OPERATOR, TRAILER TANK TRUCK DRIVER [address] [place] [address] Medication Refill Social History Tobacco [...] Telephone Encounter - Mohini Aguirre RN - 05/10/2023 12:25 PM CDT Duplicate request. documented in this encounter Plan of Treatment Upcoming Encounters Date Type Department Care Team (Late st Contact Info) Description 03/21/2025 4:30 PM CDT Office Visit [facility] - Primary Care - [place] [address] [place] [address] Shravan Burgos PAC [address] [place] [address] documented as of this encounter [...] making a change Department associated with goal: [facility] BEHAVIORAL HEALTH SERVICES Steps to achieve [...] track(2019 9:50 AM CDT) No Eloise Jenkins VETERINARY TOXICOLOGIST Note: Irma will engage in a plan of action to improve emotional and mental wellbeing. Goal Reviewed with: patient Readiness to change: Not yet ready to make a change Department associated with goal: [facility]AV[facility] Steps to achieve [...] as of this encounter Care Teams Tank Wagon Operator Relationship Specialty Start Date End Date Sravani Ramsay MD [address] [place] [address] PCP - General Family Medicine 04/23/23 12/30/23 Shravan Burgos PAC [address] [place] [address] PCP - General Physician Board Certified Arts Therapist 12/31/23 Arnold Roberts MD [address] [place] [address] Consulting Physician Pulmonary Disease 07/26/23 documented as of this encounter
--- OUTSIDE RECORDS SUMMARY | 2024-11-30 17:13 | XMS_ITS | Encounter Summary ---
Author Organization [facility] Address [address] [place] [address] Phone Care Team Providers Care Mailing Manager Name Role Phone Amaya Kowalski APRN, CNP Primary Care Provider Reason for Visit * Reason Comments Medication Refill Encounter Details Date Type Department Care Team ([facility] st Contact Info) Description 12/19/2022 Refill [facility] - Primary Care - [place] [address] [place] [address] Amaya Kowalski APRN, RADIATOR CORE TESTER [address] [place] [address] Medication Refill Social History Tobacco [...] Coronavirus/COVID-19? 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 No answer. Left voicemail. DUST SPRAYER * Telephone Encounter - Amaya Kowalski APRN, CNP - 12/21/2022 9:50 AM ROCK DUST SPRAYER Urine drug screen needed.[place] Prescription Monitoring Site reviewed. DUST SPRAYER * Telephone Encounter - Michell Rowley RN - 12/21/2022 9:45 AM ROCK DUST SPRAYER Medication failed the protocol, provider to review and approve the medication order if appropriate. Requested Prescriptions Pending Prescriptions Disp Refills LORazepam (ATIVAN) 1 MG Tablet [Pharmacy Med Name: LORAZEPAM 1 MG TABLET] 30 Tablet 0 Sig: TAKE 1 TABLET BY MOUTH TWICE A DAY NEEDED FOR ANXIETY Not Delegated - Benzodiazepines Protocol Failed - 12/19/2022 3:33 PM Failed - This refill cannot be delegated Passed - Visit with relevant provider in past 12 months or upcoming 90 days Recent Visits Date Type Provider Dept 11/26/22 Office Visit Shravan Burgos PAC [facility] 11/16/22 Office Visit Amaya Kowalski APRN, RADIATOR CORE TESTER [facility] [place] [facility] 08/12/22 Office Visit Sravani Ramsay MD [facility] Showing recent visits within past 365 days and meeting all other requirements Future Appointments No visits were found meeting these conditions. Showing future appointments within next 90 days and meeting all other requirements DUST SPRAYER documented in this encounter Plan of Treatment Upcoming Encounters Date Type Department Care Team (Late st Contact Info) Description 03/21/2025 4:30 PM CDT Office Visit [facility] Medical [facility] - Primary Care - [place] [address] [place] [address] Shravan Burgos PAC [address] [place] [address] documented as of this encounter [...] documented as of this encounter Care Teams Mailing Manager Relationship Specialty Start Date End Date Amaya Kowalski, PRODUCTION SPECIALIST, RADIATOR CORE TESTER [address] [place] [address] PCP - General Advanced Practice Nurse 06/10/18 documented as of this encounter
--- OUTSIDE RECORDS SUMMARY | 2024-11-30 17:13 | XMS_ITS | Encounter Summary ---
Author Organization [facility] Address [address] [place] [address] Phone Care Team Providers Care Mobile Home Park Manager Name Role Phone Amaya Kowalski APRN, DOUGLAS Primary Care Provider Encounter Details Date Type Department Care Team (Late st Contact Info) Description 03/05/2023 3:[address] [facility] - Primary Care - [address] [address] Lab, [facility] Discharge Disposition: Discharged to home or Selfcare [...] encounter Progress Notes * Patti Weaver - 03/05/2023 3:40 PM CDT UDS Collected per Amaya Kowalski APN 03/05/2023 and Sent to [employer] documented in this encounter Plan of Treatment Upcoming Encounters Date Type Department Care Team (Late st Contact Info) Description 03/21/2025 4:30 PM CDT Office Visit [facility] - Primary Care - [place] [address] [place] [address] Shravan Burgos PAC [address] [place] [address] documented as of this encounter Goals Goal Patient Goal Type Associated Problems Recent Progress Patient-Stated? Author Behavioral Health Behavioral Health On track(2019 9:50 AM CDT) Yes Eloise Jenkins, [facility] Note: Irma reported her goal for [...] track(2019 9:50 AM CDT) No Eloise Jenkins, SALES EXECUTIVE INSURANCE Note: Irma will engage in a plan [...] documented as of this encounter Care Teams Mobile Home Park Manager Relationship Specialty Start Date End Date Amaya Kowalski, REGULATORY AFFAIRS INTERNSHIP, DIRECTOR OF EXHIBIT DEVELOPMENT [address] [place] [address] PCP - General Advanced Practice Nurse 06/10/18 documented as of this encounter
--- OUTSIDE RECORDS SUMMARY | 2024-11-30 17:14 | XMS_ITS | Encounter Summary ---
Author Organization [facility] Address [address] [place] [address] Phone Care Team Providers Care Instructor Technical Training Name Role Phone Amaya Kowalski APRN, DOUGLAS Primary Care Provider Reason for Visit * Reason Comments Medication Refill Encounter Details Date Type Department Care Team ([facility] Contact Info) Description 10/20/2022 Refill [facility] - [facility] - [place] [address] [place] [address] Amaya Kowalski APRN, NEWS PRODUCTION SUPERVISOR [address] [place] [address] Medication Refill Social History Tobacco [...] suspected to have Coronavirus/COVID-19? No / Unsure 09/28/2022 2:40 PM CDT documented as of this encounter Miscellaneous Notes * Telephone Encounter - Amaya Kowalski APRN, CNP - 10/20/2022 1:28 PM MECHANICAL TECHNICIAN [place] Prescription Monitoring Site reviewed. ANICAL TECHNICIAN * Telephone Encounter - Latia Garcia, RN - 10/20/2022 1:21 PM CST Medication failed the protocol, provider to review and approve the medication order if appropriate. Requested Prescriptions Pending Prescriptions Disp Refills LORazepam (ATIVAN) 1 MG Tablet [Pharmacy Med Name: LORAZEPAM 1 MG TABLET] 30 Tablet 0 Sig: TAKE 1 TABLET BY MOUTH TWICE A DAY NEEDED FOR ANXIETY Not Delegated - Benzodiazepines Protocol Failed - 10/20/2022 1:18 PM Failed - This refill cannot be delegated Passed - Visit with relevant provider in past 12 months or upcoming 90 days Recent Visits Date Type Provider Dept 08/12/22 Office Visit Sravani Ramsay MD [facility] Showing recent visits within past 365 days and meeting all other requirements Future Appointments No visits were found meeting these conditions. Showing future appointments within next 90 days and meeting all other requirements ANICAL TECHNICIAN documented in this encounter Plan of Treatment Upcoming Encounters Date Type Department Care Team (Late st Contact Info) Description 03/21/2025 4:30 PM CDT Office Visit [facility] - Primary Care - [place] [facility] [place] [place] [address] Shravan Burgos, PAC [address] [place] [address] documented as of this encounter Goals Goal Patient Goal Type Associated Problems Recent Progress Patient-Stated? Author Behavioral [facility] Behavioral Health On track(2019 9:50 AM CDT) Yes Eloise Jenkins LCPC Note: Irma reported her goal for psychotherapy is to help me be able to deal with things in the present and in her past that are contributing to low and anxious mood. Goal Reviewed with: patient Readiness to change: Thinking about making a change Department associated with goal: [facility] Steps to achieve goal: [...] past) that trigger mood concerns. Behavioral [facility] Behavioral Health On track(2019 9:50 AM CDT) No Eloise Jenkins LCPC Note: Irma will engage in a plan of action to improve emotional and mental wellbeing. Goal Reviewed with: patient Readiness to change: Not yet ready to make a change Department associated with goal: [facility] Steps to achieve goal: [...] documented as of this encounter Care Teams Instructor Technical Training Relationship Specialty Start Date End Date Amaya Kowalski, CHILD SUPPORT AGENT, NEWS PRODUCTION SUPERVISOR [address] [place] [address] PCP - General Advanced Practice Nurse 06/10/18 documented as of this encounter
--- OUTSIDE RECORDS SUMMARY | 2024-11-30 17:14 | XMS_ITS | Encounter Summary ---
Author Organization [facility] Address [address] [place] [address] Phone Care Team Providers Care Counselor Aide Name Role Phone Amaya Kowalski APRN, ELECTROMECHANICAL EQUIPMENT TESTER Primary Care Provider Encounter Details Date Type Department Care Team (Late st Contact Info) Description 09/28/2022 4:15 PM CDT Physical [facility] [address] [place] [address] Veronika Orantes APRN, ELECTROMECHANICAL EQUIPMENT TESTER [address] [place] [address] Jameel Florian, PT [place] Back pain (Primary Dx); Abnormal posture; Weakness of both hips; Decreased range of motion of both hips Discharge Disposition: Discharged to home or Selfcare [...] as of this encounter Miscellaneous Notes * Plan of Care - Jameel Florian, PT - 09/28/2022 4:15 PM CDT Reassessment - Electronically signed by: JAMEEL FLORIAN, PT September 28, 2022 SUBJECTIVE: Patient reports that she has had one thing after another for the past few weeks that made her need to cancel. Reports she does feel like therapy is helping as she is not having the hip pain anymore and the low back pain is not as bad. States she still gets it though whenever she is in any one position for too long, especially sitting or standing for an extended time which she has to do at her job. Reports she would like to continue therapy and see if she can get stronger and improve more. OBJECTIVE Observation: Objective Data: OSWESTRY LOW BACK PAIN AND DISABILITY QUESTIONNAIRE Scoring instruction: For east section the total possible score is 5. If the first statement is marked in the section score +0; if the last statement is marked, it +5. If all 10 sections are completed the score is calculated as follows: Example: 16 (total scored) 50 (total possible score) x 100 +32 % If one section is missed or not applicable, the score is calculated: 16 (total scored) 45 (total possible score) x 100= 35.5% Minimal detectable change (90% confidence): 10% points (change of less than this may be attributable to error in measurement). Interpretation of scores: 0-20%: minimal disability 21-40%: moderate disability 41-60% severe disability 61-80% crippled 81-100% usually bed bound or exaggerating symptoms. Section 1- Pain intensity (0) I have no pain at the moment (1) The pain is very mild at the moment (2) The pain is mild at the moment (3) The pain is moderate at the moment. (4) The pain is fairly severe at the moment (5) The pain is very severe at the moment (6) The pain is the worse imaginable at the moment. Score 2 Section 2 - Personal care (washing, dressing ect) (0) I can look after myself normally without extra pain. (1) I can look after myself normally but it causes extra pain. (2) It is painful to look after myself and I am slow and careful. (3) I need some help but can manage most of my person care. (4) I need help every day in most aspects of self-care (5) I do not get dressed, I was with difficulty and stay in bed. Score 0 Section 3- Lifting (0) I can lift heavy weights without extra pain. (1) I can lift heavy weights but it gives extra pain. (2) Pain prevents Me from lifting heavy weights off the floor, but I can manage if they are conveniently placed (e.g.on a table) (3) Pain prevents me from lifting heavy weights but I can manage light to medium weights if they are conveniently positioned. (4) I can lift very light weights (5) I can not lift or carry anything at all. Score 0 Section 4- Walking (0) Pain does not prevent me from walking any distance (1) Pain prevents me from walking more than 1 mile. (2) Pain prevents me from walking more than 1/2 mile. (3) Pain prevents me from walking more than 100 yards (4) I can only walk using a stick or crutches (5) I am in bed most of the time. Score 0 Section 5- Sitting (0) I can sit in any chair as long as I like (1) I can only sit in my favorite chair as long as I like. (2) Pain prevents me from sitting more than an hour (3) Pain prevents me from sitting more than 30 minutes. (4) Pain prevents me from sitting more than 10 minutes (5) Pain prevents me from sitting at all. Score 2 Section 6 - Standing (0) I can stand as long as I want without extra pain. (1) I can stand as long as I want but it gives me extra pain. (2) Pain prevents me from standing for more than an hour. (3) Pain prevents me from standing more than 30 minutes. (4) Pain prevents me from standing more than 10 minutes. (5) Pain prevents me from standing at all. Score 1 Section 7- Sleeping (0) My sleep is never disturbed by pain (1) My sleep is occasionally disturbed by pain. (2) Because of pain I have less than 6 hours of sleep (3) Because of pain I have less than 4 hours of sleep (4) Because of pain I have less than 2 hours of sleep (5) Pain prevents me from sleeping at all. Score 2 Section 8 - Sex life (if applicable) (0) My sex life is normal and causes no extra pain. (1) My sex life is normal but causes some extra pain. (2) My sex life is nearly normal but is very painful (3) My sex life is severely restricted by pain. (4) My sex life is nearly absent because of pain. (5) Pain prevents me from any sex life at all. Score na Section 9 -Social Life (0) My social life is normal and gives me no extra pain. (1) My social life is normal but increases the degree of pain. (2) Pain has no significant effect on my social life apart from limiting my more energetic Interests. eg sports. (3) Pain has restricted my social life and I do not go out as often. (4) Pain has restricted my social life to home. (5) I have no social life because of pain. Score 1 Section 10- Travelling (0) I can travel anywhere I want without extra pain. (1) I can travel anywhere I want but it gives me extra pain. (2) Pain is bad but I manage journeys over 2 hours. (3) Pain restricts me to journeys of less than 1 hour (4) Pain restricts me to short necessary journeys under 30 minutes. (5) Pain prevents me from travelling except to receive treatment. Score 2 Total score 10/45 Score/possible (50 if all scored) x 100 22% disability Lumbar: Range of Motion: All Range of Motion documentation below is measured in degrees unless otherwise indicated. Lumbar: Left Hip Internal Rotation: AROM: 30 Right Hip External Rotation: AROM: 45 Flexibility: Hamstrings: Left: -6 Right: 0 Strength: All strength measurements out of 5 unless otherwise indicated. Hip Extension: Left: 4+ Right: 4+ Hip Abduction: Left: 4- Right: 3+ TREATMENT: Refer to PT OP Rehab Therapy Treatment flowsheet for details/minutes. Home Exercises distributed via handout and text. [employer] information: Access Code: [email or web address] URL: [email or web address] Date: 09/28/2022 Prepared by: Jameel Florian Exercises Supine Hamstring Stretch with Doorway - 1 x daily - 7 x weekly - 3 sets - 10 reps Single Leg Bridge - 1 x daily - 7 x weekly - 3 sets - 10 reps Anti-Rotation Squatting Sidestepping with Resistance - 1 x daily - 7 x weekly - 3 sets - 10 reps Anti-Rotation Lateral Stepping with Press - 1 x daily - 7 x weekly - 3 sets - 10 reps Single Leg Bridge on Citizen [place] Ball - 1 x daily - 7 x weekly - 3 sets - 10 reps Bird Dog on Citizen [place] Ball - 1 x daily - 7 x weekly - 3 sets - 10 reps Plank with Feet on Citizen [place] Ball - 1 x daily - 7 x weekly - 3 sets - 10 reps Mini Cottle on Citizen [place] Ball - 1 x daily - 7 x weekly - 3 sets - 10 reps Patient response to exercises provided today: patient was challenged by progression of core stabilization and hip strengthening exercises. She had difficulty with croatian ball exercises and required cueing to avoid lumbar extension and rotation with quadruped activities and walkouts. Patient was instr ucted to stop with increase in pain as it is likely a result of fatigue and inability to maintain stability. Objective measures were taken and reviewed with patient. Discussed ongoing treatment plan and decided to decrease to 1x a week due to patients difficulty coming in and the need to continue to monitorand progress home program. Patient in agreement with plan. Educated patient on the anatomy of the spine and the how posture and scoliosis affect the patients pain. Educated on the importance of maximizing core stability to decrease pain with static positioning and dynamic activities. Interventions provided this session: neuro reeducation, therapeutic exercises. Therapist provided Education and Skilled therapy by completion of reassessment and progression of exercises, education as noted above.. ASSESSMENT: Other Details: Patient demonstrates progress as evidenced by improved hip range of motion, improvedhip strength and core stabilization resulting in decreased hip and leg pain and decreased back pain. She continues to have weakness in her hips and core, complicated by a significant scoliosis. She is not having hip alexis any more and attributes this to therapy. She has not been able to consistently a ttend therapy over the past few weeks and would benefit from continuation of therapy to further address remaining goals and progress home program effectively. Discussed frequent cancellation with patient and that per the attendance policy we would likely need to discharge her if she continues to can shereen appointments. Patient verbalized understanding. Patient would benefit from continued skilled interventions, as stated in the plan of care, due to the following functional limitations: pain with squatting, prolonged walking, prolonged standing and difficulty sleeping. 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 All charges entered today are appropriate and separate from each other. PLAN Goals to be achieved by discharge. Patient will demonstrate the followin. Patient to demonstrate improved glut med and glut max strength to 4/5 bilaterally with good lumbar stability to decrease pain with walking and squatting for doing her job. MET glut max, ongoing Glut med 09/28/22 dcf 2. Patient to demonstrate improved hamstring length to -10 degrees bilaterally to decrease pain with sitting or prolonged standing. MET 09/28/22 3. Patient to report OCTAVIANO of less than 15% to demonstrate improved activity tolerance. ONGOING 09/28/22 dcf 4. Patient to demonstrate improved hip internal rotation to 30 degrees on the left without him painto decrease pain in the back with bending and getting up from sitting. MET 09/28/22 5. Patient to be independent with home program to maintain gains made in therapy. Planned Interventions This patient will likely be seen 1x/week for 11 visits from the date of initial evaluation for the following interventions: - Manual techniques including joint mobilizations, MFR, soft tissue massage, IASTM and others as needed for pain relief, soft tissue extensibility and joint mobility (73211) - Therapeutic exercise program for: motion/mobility, strengthening, flexibility, and functional limitations (17274) - Therapeutic activities for functional activity education/training, and in home safety recommendations as appropriate (67663) - Neuro Muscular Re-education for body mechanics education and postural re- education as appropriate(72803) - Gait training (62249) - Patient education regarding posture, ergonomics, body mechanics, HEP progression and exercise performance - Individualized home exercise program - Modalities as needed for pain relief, anti-inflammatory effect and soft tissue extensibility - Mechanical traction (04736) - Trigger point dry needling for pain relief and reducing tension in associated musculature ( or ) Precautions: none noted at this time. . Treatment may be altered based on patient progression and symptoms. The plan of care, as well as the benefits and risks of therapy were reviewed with the patient and the patient consented to treatment. . documented in this encounter Plan of Treatment Upcoming Encounters Date Type Department Care Team (Late st Contact Info) Description 03/21/2025 4:30 PM CDT Office Visit [facility] - Primary Care - [place] [address] [place] [address] Shravan Burgos, PAPI [address] [place] [address] documented as of this encounter Goals Goal Patient Goal Type Associated Problems Recent Progress Patient-Stated? Author Behavioral Health Behavioral Health On track(2019 9:50 AM CDT) Yes Eloise Jenkins, [facility] Note: Irma reported her goal for psychotherapy is to help me be able to deal with things in the present and in her past that are contributing to low and anxious mood. Goal Reviewed with: patient Readiness to change: Thinking about making a change Department associated with goal: [facility] Steps to achieve goal: 1. Irma will attend psychotherapy, at minimum twice a month. 2. Irma will identify and explore atleast three incidents/experiences of current stressors, past trauma and family dynamics that contribute to her mood concerns. 3. rIma will identify at least three ways/skills to heal and cope with the experiences (current and past) that trigger mood concerns. Behavioral Health Behavioral Health On track(2019 9:50 AM CDT) Eloise Mix, RESTAUR[employer] Note: Irma will engage in a plan of action to improve emotional and mental wellbeing. Goal Reviewed with: patient Readiness to change: Not yet ready to make a change Department associated with goal: [facility] Steps to achieve goal: [...] as of this encounter Visit Diagnoses Diagnosis Back pain- Primary Backache, unspecified Abnormal posture Weakness of both hips Decreased range of motion of both hips documented in this encounter Additional Health Concerns Assessment Noted Time PHQ-9 Depression Total Score: 13 020 2:00 PM CDT documented as of this encounter Care Teams Counselor Aide Relationship Specialty Start Date End Date Amaya Kowalski, SLUDGE FILTRATION OPERATOR, ELECTROMECHANICAL EQUIPMENT TESTER [address] [place] [address] PCP - General Advanced Practice Nurse 06/10/18 documented as of this encounter
--- OUTSIDE RECORDS SUMMARY | 2024-11-30 17:14 | XMS_ITS | Encounter Summary ---
Author Organization [employer] Care Team Providers Care Reservationist Name Role Phone Amaya Kowalski APRN, CEMETERY VAULT INSTALLER Primary Care Provider Encounter Details Date Type Department Care Team (Latest Contact Info) Description 09/28/2022 Travel Social History Tobacco Use Types Packs/Day [...] Description 03/21/2025 4:30 PM CDT Office Visit [facility] - Primary Care - [place] [address] [place] [address] Shravan Burgos, PAC [address] [place] [address] documented as of this encounter Goals Goal Patient Goal Type Associated Problems Recent Progress Patient-Stated? Author [facility] Health On track(2019 9:50 AM CDT) Yes Eloise Jenkins LCPC Note: Irma reported her goal for psychotherapy is to help me be able to deal with things in the present and in her past that are contributing to low and anxious mood. Goal Reviewed with: patient Readiness to change: Thinking about making a change Department associated with goal: [facility] Steps to achieve goal: 1. Irma will attend psychotherapy, at minimum twice a month. 2. Irma will identify and explore atleast three incidents/experiences of current stressors, past trauma and family dynamics that contribute to her mood concerns. 3. Irma will identify at least three ways/skills to heal and cope with the experiences (current and past) that trigger mood concerns. Behavioral [facility] Behavioral Health On track(2019 9:50 AM CDT) No Eloise Jenkins LCPC Note: Irma will engage in a plan of action to improve emotional and mental wellbeing. Goal Reviewed with: patient Readiness to change: Not yet ready to make a change Department associated with goal: [facility] Steps to achieve goal: [...] documented as of this encounter Care Teams Reservationist Relationship Specialty Start Date End Date Amaya Kowalski, OUTSIDE SALES EXECUTIVE, CEMETERY VAULT INSTALLER [address] [place] [address] PCP - General Advanced Practice Nurse 06/10/18 documented as of this encounter
--- OUTSIDE RECORDS SUMMARY | 2024-11-30 17:14 | XMS_ITS | Encounter Summary ---
Author Organization [facility] Address [address] [place] [address] Phone Care Team Providers Care Gravity Prospector Name Role Phone Amaya Kowalski APRN, DOUGLAS Primary Care Provider Reason for Visit * Reason Onset Date Comments Appointment 09/23/2022 Encounter Details Date Type Department Care Team ([facility] Contact Info) Description 09/23/2022 Telephone [facility] at [facility] [address] [place] [address] Jamie Dhaliwal, [facility] Appointment Social History Tobacco Use Types Packs/Day [...] Recorded In the last 10 days, have tamar u been in contact with someone who was confirmed or suspected to have Coronavirus/COVID-19? No / Unsure 09/18/2022 10:20 AM CDT documented as of this encounter Miscellaneous Notes * Telephone Encounter - Jamie Dhaliwal PTA - 09/23/2022 8:27 AM CDT ----- Message from Gerry Gonzalez sent at 09/23/2022 7:44 AM CDT ----- Regarding: cxd Same day cxd# I have alot going on documented in this encounter Plan of Treatment Upcoming Encounters Date Type Department Care Team (Late st Contact Info) Description 03/21/2025 4:30 PM CDT Office Visit [facility] - Primary Care - [place] [address] [place] [address] Shravan Burgos PAC [address] [place] [address] documented as of this encounter Goals Goal Patient Goal Type Associated Problems Recent Progress Patient-Stated? Author Behavioral Health Behavioral Health On track(2019 9:50 AM CDT) Yes Eloise Jenkins, [facility] Note: Irma reported her goal [...] track(2019 9:50 AM CDT) No Eloise Jenkins, [facility] Note: Irma will engage in [...] documented as of this encounter Care Teams Gravity Prospector Relationship Specialty Start Date End Date Amaya Kowalski, ACADEMIC SUPPORT COORDINATOR, ELECTRON GUN INSPECTOR [address] [place] [address] PCP - General Advanced Practice Nurse 06/10/18 documented as of this encounter
--- OUTSIDE RECORDS SUMMARY | 2024-11-30 17:15 | XMS_ITS | Encounter Summary ---
Author Organization [facility] Address [address] [place] [address] Phone Care Team Providers Care Ophthalmic Asst Name Role Phone Amaya Kowalski APRN, DOUGLAS Primary Care Provider Reason for Visit * Reason Onset Date Comments Appointment 09/16/2022 Encounter Details Date Type Department Care Team ([facility] Contact Info) Description 09/16/2022 Telephone [facility] Re[facility] at [facility] [address] [place] [address] Jamie Dhaliawl, [facility] Appointment Social History Tobacco Use Types Packs/Day [...] In the last 10 days, have tamar adame been in contact with someone who was confirmed or suspected to have Coronavirus/COVID-19? No / Unsure 09/10/2022 2:21 PM CDT documented as of this encounter Miscellaneous Notes * Telephone Encounter - Jamie Dhaliwal PTA - 09/16/2022 1:06 PM CDT ----- Message from Reyna Osborne sent at 09/16/2022 10:15 AM CDT ----- Regarding: cancellation Irma has to cancel her [address] with you today due to her being forced to work overtime at her job. Thanks! documented in this encounter Plan of Treatment Upcoming Encounters Date Type Department Care Team (Late st Contact Info) Description 03/21/2025 4:30 PM CDT Office Visit [facility] - Primary Care - [place] [address] [place] [address] Shravan Burgos PAC [address] [place] [address] documented as of this encounter [...] making a change Department associated with goal: [facility] Steps [...] On track(2019 9:50 AM CDT) Eloise Mix CH[facility]IC[facility] Note: Irma will engage in a plan of action to improve emotional and mental wellbeing. Goal Reviewed with: patient Readiness to change: Not yet ready to make a change Department associated with goal: [facility] Steps [...] documented as of this encounter Care Teams Ophthalmic Asst Relationship Specialty Start Date End Date Amaya Kowalski APRN, EMISSIONS TESTING AND REPAIR TECHNICIAN [address] [place] [address] PCP - General Advanced Practice Nurse 06/10/18 documented as of this encounter
--- OUTSIDE RECORDS SUMMARY | 2024-11-30 17:15 | XMS_ITS | Encounter Summary ---
Author Organization [facility] Address [address] [place] [address] Phone Care Team Providers Care Male Impersonator Name Role Phone Amaya Kowalski APRN, CNP Primary Care Provider Reason for Visit * Reason Comments Medication Refill Encounter Details Date Type Department Care Team ([facility] Contact Info) Description 09/17/2022 Refill [facility] - Primary Care - [place] [address] [place] [address] Amaya Kowalski APRN, PARTS ROOM ASSOCIATE [address] [place] [address] Medication Refill Social History Tobacco [...] Telephone Encounter - Latia Garcia, RN - 09/17/2022 2:21 PM CDT Medication(s) refilled and signed per [facility] Chronic Medication Refill Standing Order for Pediatricand Adult Patients. Requested Prescriptions Pending Prescriptions Disp Refills ??? albuterol 108 (90 Base) MCG/ACT Aerosol Solution [Pharmacy Med Name: ALBUTEROL HFA (PROVENTIL) INH] 6.7 g 1 Sig: INHALE 1-2 PUFFS BY MOUTH EVERY 4 HOURS NEEDED FOR WHEEZING OR COUGH Short Acting Inhaled Beta-Agonists Protocol Passed - 09/17/2022 2:20 PM Passed - Visit with relevant provider in past 12 months or upcoming 90 days Recent Visits Date Type Provider Dept 08/12/22 Office Visit Sravani Ramsay MD [facility] Showing recent visits within past 365 days and meeting all other requirements Future Appointments No visits were found meeting these conditions. Showing future appointments within next 90 days and meeting all other requirements documented in this encounter Plan of Treatment Upcoming Encounters Date Type Department Care Team (Late st Contact Info) Description 03/21/2025 4:30 PM CDT Office Visit [facility] - Primary Care - [place] [address] [place] [address] Shravan Burgos, PAPI [address] [place] [address] documented as of this encounter Goals Goal Patient Goal Type Associated Problems Recent Progress Patient-Stated? Author [facility] Behavioral Health On track(2019 9:50 AM [...] (current and past) that trigger mood concerns. [facility] On track(2019 9:50 AM CDT) [...] documented as of this encounter Care Teams Male Impersonator Relationship Specialty Start Date End Date Amaya Kowalski APRN, PARTS ROOM ASSOCIATE [address] [place] [address] PCP - General Advanced Practice Nurse 06/10/18 documented as of this encounter
--- OUTSIDE RECORDS SUMMARY | 2024-11-30 17:15 | XMS_ITS | Encounter Summary ---
Author Organization [facility] Address [address] [place] [address] Phone Care Team Providers Care Capacity Planner Name Role Phone Amaya Kowalski APRN, HOT SAW HELPER Primary Care Provider Reason for Visit * Reason Onset Date Comments cancelled due to work 09/14/2022 Encounter Details Date Type Department Care Team (Late st Contact Info) Description 09/14/2022 Telephone [facility] at [facility] [address], [address] [place] [address] Jo Florian, PT [place] cancelled due to work Social History Tobacco Use Types Packs/Day Years [...] encounter Miscellaneous Notes * Telephone Encounter - Jo Florian, PT - 09/14/2022 2:08 PM CDT ----- Message from Gerry Gonzalez sent at 09/14/2022 2:04 PM CDT ----- Regarding: cxd Same day cxd# I have to stay over at work today we are so short staffed documented in this encounter Plan of Treatment Upcoming Encounters Date Type Department Care Team (Late st Contact Info) Description 03/21/2025 4:30 PM CDT Office Visit [facility] - Primary Care - [place] [address] [place] [address] Shravan Burgos PAC [address] [place] [address] documented as of this encounter Goals Goal Patient Goal Type Associated Problems Recent Progress Patient-Stated? Author Behavioral Health Behavioral Health On track(2019 9:50 AM CDT) Yes Eloise Jenkins, [facility] Note: rIma reported her goal for psychotherapy is to [...] documented as of this encounter Care Teams Capacity Planner Relationship Specialty Start Date End Date Amaya Kowalski APRN, HOT SAW HELPER [address] [place] [address] PCP - General Advanced Practice Nurse 06/10/18 documented as of this encounter
--- OUTSIDE RECORDS SUMMARY | 2024-11-30 17:15 | XMS_ITS | Encounter Summary ---
Author Organization [facility] Address [address] [place] [address] Phone Care Team Providers Care Global Account Manager Name Role Phone Amaya Kowalski APRN, DOUGLAS Primary Care Provider Sravani Ramsay MD Primary Care Provider [phone] Arnold Roberts MD Unavailable Reason for Visit * Reason Comments Medication Refill Encounter Details Date Type Department Care Team (Late st Contact Info) Description 09/17/2022 Refill [facility] - Primary Care - [place] [address] [place] [address] Amaya Kowalski APRN, ISO COORDINATOR [address] [place] [address] Medication Refill Social History Tobacco [...] encounter Miscellaneous Notes * Addendum Note - Daryn Tolentino RMA - 10/18/2023 7:04 AM CSTAddended by: DARYN TOLENTINO on: 10/18/2023 07:04 AM Modules accepted: Orders AL COMPENSATION DIRECTOR * Addendum Note - Mohini Aguirre RN - 09/18/2022 9:18 AM CDTAddended by: MOHINI AGUIRRE on: 09/18/2022 09:18 AM Modules accepted: Orders * Telephone Encounter - Mohini Aguirre RN - 09/18/2022 9:16 AM CDT Per PCP patient needs UDS. Written Rx in lab at [facility] nut picker. Patient phoned to inform that prescription is ready for nut picker. No answer. Left voicemail. * Telephone Encounter - Amaya Kowalski APRN, CNP - 09/18/2022 7:51 AM CDT [place] Prescription Monitoring Site reviewed. * Telephone Encounter - Latia Garcia, RN - 09/17/2022 2:19 PM CDT Medication failed the protocol, provider to review and approve the medication order if appropriate. Requested Prescriptions Pending Prescriptions Disp Refills LORazepam (ATIVAN) 1 MG Tablet [Pharmacy Med Name: LORAZEPAM 1 MG TABLET] 30 Tablet 0 Sig: TAKE 1 TABLET BY MOUTH TWICE A DAY NEEDED FOR ANXIETY Not Delegated - Benzodiazepines Protocol Failed - 09/17/2022 2:17 PM Failed - This refill cannot be delegated Passed - Visit with relevant provider in past 12 months or upcoming 90 days Recent Visits Date Type Provider Dept 08/12/22 Office Visit Sravani Ramsay MD [facility] Showing recent visits within past 365 days and meeting all other requirements Future Appointments No visits were found meeting these conditions. Showing future appointments within next 90 days and meeting all other requirements documented in this encounter Plan of Treatment Upcoming Encounters Date Type Department Care Team (Late st Contact Info) Description 03/21/2025 4:30 PM CDT Office Visit [facility] - Primary Care - [place] [address] [place] [phone] Shravan Burgos PAC [address] [place] [phone] documented as of this encounter Goals Goal Patient Goal Type Associated Problems Recent Progress Patient-Stated? Author Behavioral Health Behavioral Health On track(2019 9:50 AM CDT) Yes Eloise Jenkins, DICTIONARY EDITOR Note: Irma reported her goal for psychotherapy is to help me be able to deal with things in the present and in her past that are contributing to low and anxious mood. Goal Reviewed with: patient Readiness to change: Thinking about making a change Department associated with goal: [facility] Steps to [...] track(2019 9:50 AM CDT) No Eloise Jenkins DICTIONARY EDITOR Note: Irma will engage in a plan of action to improve emotional and mental wellbeing. Goal Reviewed with: patient Readiness to change: Not yet ready to make a change Department associated with goal: [facility] Steps to [...] - 19 11/26/2022 11/26/2022 11/26/2022 4:47 PM GLOBAL COMPENSATION DIRECTOR COVID - 19 11/26/2022 11/26/2022 12/06/2022 12:1 9 AM GLOBAL COMPENSATION DIRECTOR Assessment Noted Time PHQ-9 Depression Total Score: 13 020 2:00 PM CDT documented as of this encounter Care Teams Global Account Manager Relationship Specialty Start Date End Date Amaya Kowalski, BLANCHING MACHINE OPERATOR, ISO COORDINATOR [address] [place] [address] PCP - General Advanced Practice Nurse 06/10/18 04/22/23 Sravani Ramsay MD [address] [place] [address] PCP - General Family Medicine 04/23/23 12/30/23 Arnold Roberts MD [address] [place] [address] Consulting Physician Pulmonary Disease 07/26/23 documented as of this encounter
--- OUTSIDE RECORDS SUMMARY | 2024-11-30 17:15 | XMS_ITS | Encounter Summary ---
Author Organization [facility] Address [address] [place] [address] Phone Care Team Providers Care Associate Veterinarian Name Role Phone Amaya Kowalski APRN, DOUGLAS Primary Care Provider Reason for Visit * Reason Onset Date Comments Appointment 09/09/2022 Cancelled for Encounter Details Date Type Department Care Team (Late st Contact Info) Description 09/10/2022 Telephone [facility] [address] [place] [address] Jamie Dhaliwal, [facility] Appointment (Cancelled for 09/09/22) Social History Tobacco Use Types Packs/Day Years [...] suspected to have Coronavirus/COVID-19? No / Unsure 09/03/2022 3:20 PM CDT documented as of this encounter Miscellaneous Notes * Telephone Encounter - Jamie Dhaliwal PTA - 09/10/2022 7:19 AM CDT ----- Message from Gerry Gonzalez sent at 09/09/2022 7:18 AM CDT ----- Regarding: cxd Same day cxd# I got asked to work over today, I wont be in but Ill see you guys tomorrow documented in this encounter Plan of Treatment Upcoming Encounters Date Type Department Care Team (Late st Contact Info) Description 03/21/2025 4:30 PM CDT Office Visit [facility] - Primary Care - [place] [address] [place] [address] Shravan Burgos PAC [address] [place] [address] documented as of this encounter [...] a change Department associated with goal: [facility] Steps to [...] a change Department associated with goal: [facility] Steps to [...] documented as of this encounter Care Teams Associate Veterinarian Relationship Specialty Start Date End Date Amaya Kowalski APRN, GRAIN BUYER [address] [place] [address] PCP - General Advanced Practice Nurse 06/10/18 documented as of this encounter
--- OUTSIDE RECORDS SUMMARY | 2024-11-30 17:15 | XMS_ITS | Encounter Summary ---
Author Organization [facility] Address [address] [place] [address] Phone Care Team Providers Care High Frequency Mill Operator Name Role Phone Amaya Kowalski APRN, CNP Primary Care Provider Encounter Details Date Type Department Care Team ([facility] Contact Info) Description 09/18/2022 11:00 AM CDT Lab [facility] - Primary Care - [address] [phone] Lab, [facility] Discharge Disposition: Discharged to home [...] AM CDT documented as of this encounter Progress Notes * Patti Weaver - 09/18/2022 11:00 AM CDT UDS Collected per Amaya Kowalski APN 09/18/2022 and Sent to [employer] documented in this encounter Plan of Treatment Upcoming Encounters Date Type Department Care Team (Late st Contact Info) Description 03/21/2025 4:30 PM CDT Office Visit [facility] - Primary Care - [place] [address] [place] [address] Shravan Burgos PAC [address] [place] [address] documented as of this encounter Goals Goal Patient Goal Type Associated Problems Recent Progress Patient-Stated? Author Behavioral Health Behavioral Health On track(2019 9:50 AM CDT) Yes Eloise Jenkins, [facility] Note: Irma reported her goal for [...] track(2019 9:50 AM CDT) No Eloise Jenkins, AIRCRAFT LAYOUT WORKER Note: Irma will engage in a plan [...] documented as of this encounter Care Teams High Frequency Mill Operator Relationship Specialty Start Date End Date Amaya Kowalski, SILVER BUFFER, SALES SUPPORT TECHNICIAN [address] [place] [address] PCP - General Advanced Practice Nurse 06/10/18 documented as of this encounter
--- OUTSIDE RECORDS SUMMARY | 2024-11-30 17:15 | XMS_ITS | Encounter Summary ---
Author Organization [facility] Address [address] [place] [address] Phone Care Team Providers Care Branch Billing Payroll Clerk Name Role Phone Amaya Kowalski APRN, PAINTING MACHINE OPERATOR Primary Care Provider Encounter Details Date Type Department Care Team (Late st Contact Info) Description 09/10/2022 4:15 PM CDT Physical [facility] [address] [place] [address] Veronika Orantes APRN, PAINTING MACHINE OPERATOR [address] [place] [address] Jameel Florian, PT [place] Discharge Disposition: Discharged to home or Selfcare [...] of Care - Jameel Florian, PT - 09/10/2022 4:15 PM CDT Treatment Note - Electronically signed by: JAMEEL FLORIAN, PT September 10, 2022 SUBJECTIVE: Patient reports she is not doing too bad today. Reports she has good days and bad days. States she does notice some improvement as she is sleeping better at night. Pain during the day seems to fluctuate and at times feels better but at times the same. OBJECTIVE Observation: Objective Data: OSWESTRY LOW BACK [...] the worse imaginable at the moment. Score 1 Section 2 - Personal care (washing, dressing [...] from any sex life at all. Score n/a Section 9 -Social Life (0) My social [...] no social life because of pain. Score 3 Section 10- Travelling (0) I can travel [...] to receive treatment. Score 2 Total score 11/45 Score/possible (50 if all scored) x 100 Lumbar: Range of Motion: All Range of Motion documentation below is measured in degrees unless otherwise indicated. Lumbar: Right Hip External Rotation: AROM: 22 Strength: All strength measurements out of 5 unless otherwise indicated. Hip Extension: Left: 4- Right: 4- Hip Abduction: Left: 3 Right: 3+ TREATMENT: Refer to PT OP Rehab Therapy Treatment flowsheet for details/minutes. Home Exercises distributed via: handout Access Code: [email or web address] Patient response to new home exercises provided today: patient was given tactile cues for posteriorpelvic tilt on foam roll and cues for posture and glut contraction on standing marching. Patient was challenged by exercises by reported no increase in pain. Educated patient on expected progress with decrease in pain and increased endurance before return of symptoms until core stability improves. Patient verbalized understanding. Manual therapy: Mfr to the lumbar and thoracic region, IASTM to the right thoracic paraspinals and lumbar paraspinals, soft tissue work to lumbar paraspinals on the right. Mobilization to the thoracic spine. Psoas release on the left. Muscle energy to correct anterior rotation on the left. Interventions provided this session: manual therapy, therapeutic exercises Therapist provided Education and Skilled therapy by identifying substitutions during exercises withcorrection of form as well as identifying and releasing of soft tissue restrictions. . ASSESSMENT: Other Details: Patient requires ongoing cuing of correction of form with stabilization exercises and was challenged by each activity. Objective measures were taken and reviewed with patient. She demonstrates improvement with hip strength and improved ability to sleep at night. ??Patient would benefit from continued skilled interventions, as stated in the plan of care, due tothe following functional limitations: pain with squatting, prolonged walking, prolonged standing and difficulty sleeping. 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 All charges entered today are appropriate and separate from each other. PLAN Goals to be achieved by discharge. Patient will demonstrate the followin. Patient to demonstrate improved glut med and glut max strength to 4/5 bilaterally with good lumbar stability to decrease pain with walking and squatting for doing her job. PROGRESS 09/10/22 dcf 2. Patient to demonstrate improved hamstring length to -10 degrees bilaterally to decrease pain with sitting or prolonged standing. PROGRESS 09/10/22 dcf 3. Patient to report OCTAVIANO of less than 15% to demonstrate improved activity tolerance. 4. Patient to demonstrate improved hip internal rotation to 30 degrees on the left without him painto decrease pain in the back with bending and getting up from sitting. PROGRESS 09/10/22 dcf 5. Patient to be independent with home program to maintain gains made in therapy. Planned Interventions This patient will likely be seen 2x/week for 11 visits from the date of initial evaluation for the following interventions: - Manual techniques including joint mobilizations, MFR, soft tissue massage, IASTM and others as needed for pain relief, soft tissue extensibility and joint mobility (86826) - Therapeutic exercise program for: motion/mobility, strengthening, flexibility, and functional limitations (60576) - Therapeutic activities for functional activity education/training, and in home safety recommendations as appropriate (73149) - Neuro Muscular Re-education for body mechanics education and postural re- education as appropriate(00624) - Gait training (85418) - Patient education regarding posture, ergonomics, body mechanics, HEP progression and exercise performance - Individualized home exercise program - Modalities as needed for pain relief, anti-inflammatory effect and soft tissue extensibility - Mechanical traction (40198) - Trigger point dry needling for pain relief and reducing tension in associated musculature (54335 or ) Precautions: none noted at this [...] Description 03/21/2025 4:30 PM CDT Office Visit [facility] - Primary Care - [place] [address] [place] [address] Shravan Burgos PAC [address] [place] [address] documented as of this encounter [...] making a change Department associated with goal: [facility] Steps to [...] make a change Department associated with goal: [facility] Steps to [...] documented as of this encounter Care Teams Branch Billing Payroll Clerk Relationship Specialty Start Date End Date Amaya Kowalski APRN, PAINTING MACHINE OPERATOR [address] [place] [address] PCP - General Advanced Practice Nurse 06/10/18 documented as of this encounter
--- OUTSIDE RECORDS SUMMARY | 2024-11-30 17:15 | XMS_ITS | Encounter Summary ---
Author Organization [facility] Address [address] [place] [place] [address] Phone Care Team Providers Care Air Transport Professionals Name Role Phone Amaya Kowalski APRN, DOUGLAS Primary Care Provider Reason for Visit * Reason Comments Medication Refill Encounter Details Date Type Department Care Team ([facility] Contact Info) Description 09/17/2022 Refill [facility] [place] [address] [place] [address] Amaya Kowalski APRN, PAI GOW MANAGER [address] [place] [address] Medication Refill Social History Tobacco [...] Encounter - Latia Garcia, RN - 09/17/2022 2:22 PM CDT Medication(s) refilled and signed per [facility] Chronic Medication Refill Standing Order for Pediatricand Adult Patients. Requested Prescriptions Pending Prescriptions Disp Refills ??? Symbicort 160-4.5 MCG/ACT Aerosol [Pharmacy Med Name: SYMBICORT 160-4.5 MCG INHALER] 10.2 g 1 Sig: INHALE TWO PUFFS BY MOUTH TWO TIMES A DAY Inhaled Combinations Protocol Passed - 09/17/2022 2:20 PM Passed - Visit with relevant provider in past 12 months or upcoming 90 days Recent Visits Date Type Provider Dept 08/12/22 Office Visit Sravani Ramasy MD [facility] Showing recent visits within past 365 days and meeting all other requirements Future Appointments No visits were found meeting these conditions. Showing future appointments within next 90 days and meeting all other requirements Passed - Active short-acting beta agonist prescription documented in this encounter Plan of Treatment Upcoming Encounters Date Type Department Care Team (Late st Contact Info) Description 03/21/2025 4:30 PM CDT Office Visit [facility] - Primary Care - [place] [address] [place] [address] Shravan Burgos, PAPI [address] [place] [address] documented as of this encounter Goals Goal Patient Goal Type Associated Problems Recent Progress Patient-Stated? Author [facility] On track(2019 9:50 AM CDT) Yes Eloise [...] (current and past) that trigger mood concerns. [facility] On track(2019 9:50 AM CDT) No Eloise [...] documented as of this encounter Care Teams Air Transport Professionals Relationship Specialty Start Date End Date Amaya Kowalski, HAND I BLOCKER, PAI GOW MANAGER [address] [place] [address] PCP - General Advanced Practice Nurse 06/10/18 documented as of this encounter
--- OUTSIDE RECORDS SUMMARY | 2024-11-30 17:15 | XMS_ITS | Encounter Summary ---
Author Organization [facility] Address [address] [place] [address] Phone Care Team Providers Care Fountain Attendant Name Role Phone Amaya Kowalski APRN, ORDER PICKER Primary Care Provider Reason for Visit * Reason Onset Date Comments cancelled due to car trouble 09/21/2022 Encounter Details Date Type Department Care Team (Late st Contact Info) Description 09/21/2022 Telephone [facility] at [facility] [address] [place] [address] Jo Florian, PT [place] cancelled due to car trouble Social History Tobacco Use Types Packs/Day Years [...] Telephone Encounter - Jo Florian, PT - 09/21/2022 10:37 AM CDT ----- Message from Gerry Gonzalez sent at 09/21/2022 8:51 AM CDT ----- Regarding: cxd Same day cxd# I have to take my car to get looked at documented in this encounter Plan of Treatment Upcoming Encounters Date Type Department Care Team (Late st Contact Info) Description 03/21/2025 4:30 PM CDT Office Visit [facility] - Primary Care - [place] [address] [place] [address] Shravan Burgos PAC [address] [place] [address] documented as of this encounter Goals Goal Patient Goal Type Associated Problems Recent Progress Patient-Stated? Author Behavioral Health Behavioral Health On track(2019 9:50 AM CDT) Yes Eloise Jenkins, MEMS ENGINEER Note: Irma reported her goal for psychotherapy is to help me be able to deal with things in the present and in her past that are contributing to low and anxious mood. Goal Reviewed with: patient Readiness to change: Thinking about making a change Department associated with goal: [facility] BEHAVIORAL HE[facility] SERVICES Steps to achieve [...] make a change Department associated with goal: [facility] SERVICES Steps to achieve [...] documented as of this encounter Care Teams Fountain Attendant Relationship Specialty Start Date End Date Amaya Kowalski APRN, ORDER PICKER [address] [place] [address] PCP - General Advanced Practice Nurse 06/10/18 documented as of this encounter
--- OUTSIDE RECORDS SUMMARY | 2024-11-30 17:15 | XMS_ITS | Encounter Summary ---
Author Organization [facility] Care Team Providers Care Outside Rigger Name Role Phone Amaya Kowalski APRN, COMMUNITY PROGRAM ASSISTANT Primary Care Provider Encounter Details Date Type Department Care Team (Latest Contact Info) Description 09/18/2022 Travel Social History Tobacco Use Types Packs/Day [...] AM CDT documented as of this encounter Plan of Treatment Upcoming Encounters Date Type Department Care Team (Late st Contact Info) Description 03/21/2025 4:30 PM CDT Office Visit [facility] - Primary Care - [place] [address] [place] [address] Shravan Burgos, PAC [address] [place] [address] documented as of this encounter Goals Goal Patient Goal Type Associated Problems Recent Progress Patient-Stated? Author [facility] On track(2019 9:50 AM [...] and past) that trigger mood concerns. Behavioral [facility] Behavior[facility] Health On track(2019 9:50 [...] documented as of this encounter Care Teams Outside Rigger Relationship Specialty Start Date End Date Amaya Kowalski, SUPERINTENDENT CONCRETE MIXING PLANT, COMMUNITY PROGRAM ASSISTANT [address] [place] [address] PCP - General Advanced Practice Nurse 06/10/18 documented as of this encounter
--- OUTSIDE RECORDS SUMMARY | 2024-11-30 17:15 | XMS_ITS | Encounter Summary ---
Author Organization [facility] Address [address] [place] [address] Phone Care Team Providers Care Food Processing Chemist Name Role Phone Amaya Kowlaski APRN, DOUGLAS Primary Care Provider Reason for Visit * Reason Comments Medication Refill Encounter Details Date Type Department Care Team ([facility] Contact Info) Description 09/17/2022 Refill [facility] [place] [address] [place] [address] Amaya Kowalski APRN, PRODUCTION QUALITY ANALYST [address] [place] [address] Medication Refill Social History Tobacco [...] Encounter - Latia Garcia, RN - 09/17/2022 2:23 PM CDT Per nursing clinical judgement, provider to review and approve the medication(s) order(s) if appropriate. Requested Prescriptions Pending Prescriptions Disp Refills ipratropium-albuterol (DUO-NEB) 0.5-2.5 (3) MG/3ML Solution [Pharmacy Med Name: IPRAT-ALBUT 0.5-3(2.5) MG/3 ML] 360 mL 11 Sig: INHALE 1 VIAL VIA NEBULIZER FOUR TIMES DAILY Inhaled Combinations Protocol Passed - 09/17/2022 2:22 PM Passed - Visit with relevant provider in past 12 months or upcoming 90 days Recent Visits Date Type Provider Dept 08/12/22 Office Visit Sravani Ramsay MD [facility] Showing recent visits within past [...] Description 03/21/2025 4:30 PM CDT Office Visit [facility] - Primary Care - [place] [address] [place] [address] Shravan Burgos, PAC [address] [place] [address] documented as of this encounter Goals Goal Patient Goal Type Associated Problems Recent Progress Patient-Stated? Author Behavioral [facility] Behavioral Health On track(2019 9:50 AM CDT) Yes Eloise Jenkins LCPC Note: Irma reported her goal for psychotherapy is to help me be able to deal with things in the present and in her past that are contributing to low and anxious mood. Goal Reviewed with: patient Readiness to change: Thinking about making a change Department associated with goal: [facility] [...] that trigger mood concerns. Behavioral [facility] Behavioral Health On track(2019 9:50 AM [...] documented as of this encounter Care Teams Food Processing Chemist Relationship Specialty Start Date End Date Amaya Kowalski, WORKERS COMPENSATION CLAIMS SUPERVISOR, PRODUCTION QUALITY ANALYST [address] [place] [address] PCP - General Advanced Practice Nurse 06/10/18 documented as of this encounter
--- OUTSIDE RECORDS SUMMARY | 2024-11-30 17:15 | XMS_ITS | Encounter Summary ---
Author Organization [employer] Care Team Providers Care Mold Closer Helper Name Role Phone Amaya Kowalski APRN, CARDIOVASCULAR SURGEON Primary Care Provider Encounter Details Date Type Department Care Team (Latest Contact Info) Description 09/10/2022 Travel Social History Tobacco Use Types Packs/Day [...] PM CDT Office Visit [facility] - Primary Care - [place] [address] [place] [address] Shravan Burgos, PAC [address] [place] [address] documented as of this encounter Goals Goal Patient Goal Type Associated Problems Recent Progress Patient-Stated? Author [facility] Health On track(2019 9:50 AM CDT) [...] and past) that trigger mood concerns. Behavioral [facility] Behavioral Health On track(2019 [...] documented as of this encounter Care Teams Mold Closer Helper Relationship Specialty Start Date End Date Amaya Kowalski, LASER ENGRAVER, CARDIOVASCULAR SURGEON [address] [place] [address] PCP - General Advanced Practice Nurse 06/10/18 documented as of this encounter
--- OUTSIDE RECORDS SUMMARY | 2024-11-30 17:15 | XMS_ITS | Encounter Summary ---
Author Organization [employer] Care Team Providers Care Frozen Meat Cutter Name Role Phone Amaya Kowalski APRN, ANVIL SEATING PRESS OPERATOR Primary Care Provider Encounter Details Date Type Department Care Team (Latest Contact Info) Description 09/03/2022 Travel Social History Tobacco Use Types Packs/Day [...] Description 03/21/2025 4:30 PM CDT Office Visit [facility] - Primary Care - [place] [address] [place] [address] Shravan Burgos, PAC [address] [place] [address] documented as of this encounter Goals Goal Patient Goal Type Associated Problems Recent Progress Patient-Stated? Author [facility] Health On track(2019 9:50 AM [...] past) that trigger mood concerns. Behavioral [facility] Behavioral Health On track(2019 9:50 AM [...] documented as of this encounter Care Teams Frozen Meat Cutter Relationship Specialty Start Date End Date Amaya Kowalski, CORE DRILL OPERATOR, ANVIL SEATING PRESS OPERATOR [address] [place] [address] PCP - General Advanced Practice Nurse 06/10/18 documented as of this encounter
--- OUTSIDE RECORDS SUMMARY | 2024-11-30 17:16 | XMS_ITS | Encounter Summary ---
Author Organization [employer] Care Team Providers Care Oil Well Fishing Tool Technician Name Role Phone Amaya Kowalski APRN, STEREOPLOTTER OPERATOR Primary Care Provider Encounter Details Date Type Department Care Team (Latest Contact Info) Description 08/31/2022 Travel Social History Tobacco Use Types Packs/Day [...] suspected to have Coronavirus/COVID-19? No / Unsure 08/31/2022 2:54 PM CDT documented as of this encounter Plan of Treatment Upcoming Encounters Date Type Department Care Team (Late st Contact Info) Description 03/21/2025 4:30 PM CDT Office Visit [facility] Medical [facility] - Primary Care - [place] [address] [place] [address] Shravan Burgos, PAC [address] [place] [address] documented as of this encounter Goals Goal Patient Goal Type Associated Problems Recent Progress Patient-Stated? Author [facility] Health On track(2019 9:50 AM [...] and past) that trigger mood concerns. Behavioral [facility] Behavioral Health On track(2019 9:50 AM CDT) [...] documented as of this encounter Care Teams Oil Well Fishing Tool Technician Relationship Specialty Start Date End Date Amaya Kowalski, FAA CERTIFIED POWERPLANT MECHANIC, STEREOPLOTTER OPERATOR [address] [place] [address] PCP - General Advanced Practice Nurse 06/10/18 documented as of this encounter
--- OUTSIDE RECORDS SUMMARY | 2024-11-30 17:16 | XMS_ITS | Encounter Summary ---
Author Organization [employer] Care Team Providers Care Political Science Instructor Name Role Phone Amaya Kowalski APRN, NET DEVELOPER Primary Care Provider Encounter Details Date Type Department Care Team (Latest Contact Info) Description 08/24/2022 Travel Social History Tobacco Use Types Packs/Day [...] suspected to have Coronavirus/COVID-19? No / Unsure 08/24/2022 3:57 PM CDT documented as of this encounter Plan of Treatment Upcoming Encounters Date Type Department Care Team (Late st Contact Info) Description 03/21/2025 4:30 PM CDT Office Visit [facility] - Primary Care - [place] [address] [place] [address] Shravan Burgos, PAC [address] [place] [address] documented as of this encounter Goals Goal Patient Goal Type Associated Problems Recent Progress Patient-Stated? Author [facility] Health On track(2019 9:50 AM CDT) Yes Eloies Jenkins LCPC Note: Irma reported her goal for psychotherapy is to help me be able to deal with things in the present and in her past that are contributing to low and anxious mood. Goal Reviewed with: patient Readiness to change: Thinking about making a change Department associated with goal: [facility] BEHAVIORAL HEALTH SERVICES Steps [...] and past) that trigger mood concerns. Behavioral [facility] Behavioral Health On track(2019 9:50 AM CDT) No Eloise Jenkins LCPC Note: Irma will engage in a plan of action to improve emotional and mental wellbeing. Goal Reviewed with: patient Readiness to change: Not yet ready to make a change Department associated with goal: [facility] BEHAVIORAL HEALTH SERVICES Steps [...] documented as of this encounter Care Teams Political Science Instructor Relationship Specialty Start Date End Date Amaya Kowalski, BUTCHER'S ASSISTANT, NET DEVELOPER [address] [place] [address] PCP - General Advanced Practice Nurse 06/10/18 documented as of this encounter
--- OUTSIDE RECORDS SUMMARY | 2024-11-30 17:16 | XMS_ITS | Encounter Summary ---
Author Organization [facility] Address [address] [place] [address] Phone Care Team Providers Care Drum Printer Name Role Phone Amaya Kowlaski APRN, DATA MANAGEMENT MANAGER Primary Care Provider Encounter Details Date Type Department Care Team (Late st Contact Info) Description 08/31/2022 4:15 PM CDT Physical [facility] [address], [address] [place] [address] Veronika Orantes APRN, DATA MANAGEMENT MANAGER [address] [place] [address] Jameel Florian, PT [place] Discharge Disposition: Discharged [...] of Care - Jameel Florian, PT - 08/31/2022 4:15 PM CDT Treatment Note - Electronically signed by: JAMEEL FLORIAN, PT August 31, 2022 SUBJECTIVE: Patient reports she is sore. She has a little more pain in the low back and hip but knows that she will be sore before she gets stronger. Objective TREATMENT: Refer to PT OP Rehab Therapy Treatment flowsheet for details/minutes. Home Exercises distributed via: handout Access Code: [email or web address] URL: [email or web address] Date: 08/24/2022 Prepared by: Jameel Florian Exercises Clamshell with Resistance - 1 x daily - 7 x weekly - 3 sets - 10 reps Supine Hamstring Stretch with Doorway - 1 x daily - 7 x weekly - 3 sets - 10 reps Doroteo Stretch on Table - 1 x daily - 7 x weekly - 3 sets - 10 reps Single Leg Bridge - 1 x daily - 7 x weekly - 3 sets - 10 reps Patient response to new home exercises provided today: patient was given tactile cues for posteriorpelvic tilt on foam roll and cues for posture and glut contraction on standing marching. Attempted half kneeling palloff press but patient did not tolerate due to increase pain in knee so performed side stepping palloff press instead with cues. Patient was challenged by exercises by reported no increase in pain. Manual therapy: Mfr to the lumbar and thoracic region, IASTM to the right thoracic paraspinals and lumbar paraspinals, soft tissue work to lumbar paraspinals on the right. Mobilization to the thoracic spine. Interventions provided this session: manual therapy, therapeutic exercises Therapist provided Education and Skilled therapy by identifying substitutions during exercises withcorrection of form as well as identifying and releasing of soft tissue restrictions. . ASSESSMENT: Other Details: Patient requires ongoing cuing of correction of form with stabilization exercises and was challenged by each activity. Had difficulty with left hip vector training and with marching and kickbacks on the right. Decreased pain from 6/10 to 3/10 following treatment. Patient would benefit from continued skilled interventions, as stated in the plan of care, due to the following functional limitations: pain with squatting, prolonged walking, prolonged standing and difficulty sleeping. 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 ?? All charges entered today are appropriate and separate from each other. PLAN Goals to be achieved by discharge. Patient will demonstrate the followin. Patient to demonstrate improved glut med and glut max strength to 4/5 bilaterally with good lumbar stability to decrease pain with walking and squatting for doing her job. 2. Patient to demonstrate improved hamstring length to -10 degrees bilaterally to decrease pain with sitting or prolonged standing. 3. Patient to report OCTAVIANO of less than 15% to demonstrate improved activity tolerance. 4. Patient to demonstrate improved hip internal rotation to 30 degrees on the left without him painto decrease pain in the back with bending and getting up from sitting. 5. Patient to be independent with home program to maintain gains made in therapy. Planned Interventions This patient will likely be seen 2x/week for 11 visits from the date of initial evaluation for the following interventions: - Manual techniques including joint mobilizations, MFR, soft tissue massage, IASTM and others as needed for pain relief, soft tissue extensibility and joint mobility (80547) - Therapeutic exercise program for: motion/mobility, strengthening, flexibility, and functional limitations (50372) - Therapeutic activities for functional activity education/training, and in home safety recommendations as appropriate (16016) - Neuro Muscular Re-education for body mechanics education and postural re- education as appropriate(51253) - Gait training (65847) - Patient education regarding posture, ergonomics, body mechanics, HEP progression and exercise performance - Individualized home exercise program - Modalities as needed for pain relief, anti-inflammatory effect and soft tissue extensibility - Mechanical traction (56640) - Trigger point dry needling for pain [...] CDT Office Visit [facility] - Primary Care - [place] [address] [place] [address] Shravan Burgos, PAPI [address] [place] [address] documented as of this encounter [...] a change Department associated with goal: [facility] BEHAVIORAL HEALTH SERVICES Steps to [...] a change Department associated with goal: [facility]AL [facility] SERVICES Steps to [...] documented as of this encounter Care Teams Drum Printer Relationship Specialty Start Date End Date Amaya Kowalski, ANIMAL CRUELTY INVESTIGATION SUPERVISOR, DATA MANAGEMENT MANAGER [address] [place] [address] PCP - General Advanced Practice Nurse 06/10/18 documented as of this encounter
--- OUTSIDE RECORDS SUMMARY | 2024-11-30 17:16 | XMS_ITS | Encounter Summary ---
Author Organization [employer] Care Team Providers Care Professional Nurse Name Role Phone Amaya Kowalski APRN, STRAP MAKER Primary Care Provider Encounter Details Date Type Department Care Team (Latest Contact Info) Description 08/17/2022 Travel Social History Tobacco Use Types Packs/Day [...] suspected to have Coronavirus/COVID-19? No / Unsure 08/17/2022 3:58 PM CDT documented as of this encounter Plan of Treatment Upcoming Encounters Date Type Department Care Team (Late st Contact Info) Description 03/21/2025 4:30 PM CDT Office Visit [facility] - Primary Care - [place] [address] [place] [address] Shravan Burgos, PAC [address] [place] [address] documented as of this encounter Goals Goal Patient Goal Type Associated Problems Recent Progress Patient-Stated? Author [facility] Health On track(2019 9:50 AM CDT) Yes Eloise Jenkins LCPC Note: Irma reported her goal for psychotherapy is to help me be able to deal with things in the present and in her past that are contributing to low and anxious mood. Goal Reviewed with: patient Readiness to change: Thinking about making a change Department associated with goal: [facility] BEHAVIORAL HEALTH SERVICES Steps [...] past) that trigger mood concerns. Behavioral [facility] Behavioral Health On track(2019 9:50 AM CDT) No Eloise Jenkins LCPC Note: Irma will engage in a plan of action to improve emotional and mental wellbeing. Goal Reviewed with: patient Readiness to change: Not yet ready to make a change Department associated with goal: [facility] BEHAVIORAL HEALTH SERVICES Steps [...] documented as of this encounter Care Teams Professional Nurse Relationship Specialty Start Date End Date Amaya Kowalski, LINING PARTS SEWER, STRAP MAKER [address] [place] [address] PCP - General Advanced Practice Nurse 06/10/18 documented as of this encounter
--- OUTSIDE RECORDS SUMMARY | 2024-11-30 17:16 | XMS_ITS | Encounter Summary ---
Author Organization [facility] Address [address] [place] [address] Phone Care Team Providers Care Program Evaluation Consultant Name Role Phone Amaya Kowalski APRN, BALANCE ASSEMBLER Primary Care Provider Reason for Visit * Reason Onset Date Comments COVID-19 07/28/2022 Encounter Details Date Type Department Care Team (Late st Contact Info) Description 07/28/2022 Nurse Triage [facility] [address] [place] [address] Amaya Kowalski, ROCK CONTRACTOR, BALANCE ASSEMBLER [address] [place] [address] COVID-19 Social History Tobacco Use Types Packs/Day Years [...] encounter Miscellaneous Notes * Addendum Note - Tavia Aguirre RN - 07/28/2022 4:25 PM CDTAddended by: TAVIA AGUIRRE on: 07/28/2022 04:25 PM Modules accepted: Orders * Telephone Encounter - Tavia Aguirre RN - 07/28/2022 4:23 PM CDT Attempted to resend paxlovid as an escribe. System would not allow. Was phoned to [facility] for patient. My chart message sent to patient. * Telephone Encounter - Tavia Aguirre RN - 07/28/2022 12:05 PM CDT My Chart message sent to patient as directed in previous message. * Telephone Encounter - Clark Archibald MD - 07/28/2022 11:56 AM CDT Paxlovid prescribed, primarily because the patient has not completed her COVID- 19 vaccine series. Recommend that she do so when she has recovered from this illness. * Telephone Encounter - Marian Haskins RN - 07/28/2022 11:24 AM CDT Patient calling back. Positive test today, 07/28/[address] [place] [address] Symptoms started 07/24/22 evening Wanted to update PCP She would be interested in Paxlovid if provider thinks it would be beneficial Advised of Covid isolation protocol Ok to call or [facility] with new recommendations. * Telephone Encounter - Alexa Gupta RN - 07/28/2022 9:49 AM CDT SITUATION: Covid suspected BACKGROUND: Symptoms started on Wednesday ASSESSMENT: Symptom Description / Location: Patient has tested negative with a home test, went and had a PCR testing done this morning, still waiting for results. Patient's children are currently both positive. Reports is having fever, vomiting, body aches, cough, head pressure, nausea, chills, fatigue, and hea dache. States is feeling worse today, headaches started today. Reports has COPD, chronic bronchitis Vaccinated x 2, Pfizer. No boosters Pain (0-10): 4/10 Temp: 100.4, last night, orally Treatment / Response: Tylenol, ibuprofen, robitussin DM, aleve-some relief LMP / / : N/A RECOMMENDATION: See care advice and disposition for Guideline Advised patient of Covid care advise. Instructed to call back with her Covid results to see about getting the Paxlovid medication. If negative [facility] and see the doctor. Patient verbalized understanding. First positive answer recorded, all responses to prior questions were negative. If symptoms increase, change or if new symptoms develop, call your HCP or call back. Recommendations were based on caller information and is not a diagnosis. Verified and reviewed all triage information with caller. Reason for Disposition ? ? HIGH RISK for severe COVID complications (e.g., weak immune system, age > 64 years, obesity with BMI > 25, , chronic lung disease or other chronic medical condition) (Exception: Already seen by PCP and no new or worsening symptoms.) Protocols used: CORONAVIRUS (COVID-19) DIAGNOSED OR [id number] documented in this encounter Plan of Treatment Upcoming Encounters Date Type Department Care Team (Late st Contact Info) Description 03/21/2025 4:30 PM CDT Office Visit [facility] Medical [facility] - Primary Care - [place] [address] [place] [address] Shravan Burgos, PAPI [address] [place] [address] documented as of this encounter Goals Goal Patient Goal Type Associated Problems Recent Progress Patient-Stated? Author [facility] Behavioral Health On track(2019 9:50 AM CDT) Yes Eloise Jenkins LCPC Note: Irma reported her goal for psychotherapy is to help me be able to deal with things in the present and in her past that are contributing to low and anxious mood. Goal Reviewed with: patient Readiness to change: Thinking about making a change Department associated with goal: [facility] BE[facility]AVIORAL HE[facility] SERVICES Steps to achieve [...] and past) that trigger mood concerns. Behavioral [facility] Behavioral Health On track(2019 9:50 AM CDT) No Eloise Jenkins LCPC Note: Irma will engage in a plan of action to improve emotional and mental wellbeing. Goal Reviewed with: patient Readiness to change: Not yet ready to make a change Department associated with goal: [facility] Steps to achieve [...] as of this encounter Visit Diagnoses Diagnosis COVID-19- Primary documented in this encounter Additional Health Concerns Assessment Noted Time PHQ-9 Depression Total Score: 13 020 2:00 PM CDT documented as of this encounter Care Teams Program Evaluation Consultant Relationship Specialty Start Date End Date Amaya Kowalski, ROCK CONTRACTOR, BALANCE ASSEMBLER [address] [place] [address] PCP - General Advanced Practice Nurse 06/10/18 documented as of this encounter
--- OUTSIDE RECORDS SUMMARY | 2024-11-30 17:16 | XMS_ITS | Encounter Summary ---
Author Organization [facility] Address [address] [place] [address] Phone Care Team Providers Care Pan Greaser Name Role Phone Amaya Kowalski APRN, CNP Primary Care Provider Sravani Ramsay MD Primary Care Provider [phone] Arnold Roberts MD Unavailable Reason for Visit * Reason Comments Blood in Stools Patient stated that it started on Wednesday evening and that she had loose stools and there was bright red blood in her stool. Patient stated that she is also having lower left quadrant pain. Patient stated that she had a bowel movement right before she came that was formed and that there was no blood in it. Encounter Details Date Type Department Care Team (Late st Contact Info) Description 08/12/2022 4:00 PM CDT Office Visit [facility] - Primary Care - [place] [address] [place] [id number] Sravani Ramsay MD [address] [place], [place] [id number] Bloody diarrhea (Primary Dx); Tobacco use disorder Discharge Disposition: Discharged to [...] Sign Reading Time Taken Comments Blood Pressure 110/60 08/12/2022 4:12 PM CDT Pulse 82 08/12/2022 4:12 PM CDT Temperature 36.4 ??C (97.5 ??F) 08/12/2022 4:12 PM CD T Respiratory Rate 18 08/12/2022 4:12 PM CDT Oxygen Saturation 99% 08/12/2022 4:12 PM CDT Inhaled Oxygen Concentration - - Weight 62.1 kg (137 lb) 08/12/2022 4:12 PM CDT Height 160 cm (5' 3 ) 08/12/2022 4:12 PM CDT Body Mass Index 24.27 08/12/2022 4:12 PM CDT documented in this encounter Progress Notes * Kirsten Martin, RMA - 08/12/2022 4:00 PM CDT Irma Seymour was provided education materials regarding smoking cessation as noted on the After Visit Summary. Counseling Given and Ready to Quit Calix are updated in the Social History. * Kirsten Martin RMA - 08/12/2022 4:00 PM CDT Irma Seymour, 42 y.o., female is here for Blood in Stools (Patient stated that it started on Wednesday evening and that she had loose stools and there was bright red blood in her stool. Patient statedthat she is also having lower left quadrant pain. Patient stated that she had a bowel movement right before she came that was formed and that there was no blood in it.) Medication Refills: Patient reports/denies need for medication refills. Orders Pended: no Requested Prescriptions No prescriptions requested or ordered in this encounter Home Medications Medication Sig Start Date End Date Taking? Authorizing Provider albuterol 108 (90 Base) MCG/ACT Aerosol Solution INHALE 1-2 PUFFS BY MOUTH EVERY 4 HOURS NEEDED FOR WHEEZING OR COUGH 10/21/21 Yes Amaya Kowalski APRN, CNP ibuprofen (MOTRIN) 200 MG Tablet Take 3 Tabs by mouth every 6 hours as needed for Fever. 12/26/18 Yes Ti Ma, PAPI ipratropium-albuterol (DUO-NEB) 0.5-2.5 (3) MG/3ML Solution 3 mL by Nebulization route 4 times daily. 04/05/20 Yes Amaya Kowalski APRN, CNP LORazepam (ATIVAN) 1 MG Tablet TAKE 1 TABLET BY MOUTH TWICE A DAY NEEDED FOR ANXIETY 07/15/22 YesAmaya Kowalski APRN, CNP Respiratory Therapy Supplies (NEBULIZER) Device Use 4x/day prn. 02/14/19 Yes Amaya Kowalski APRN, CNP Respiratory Therapy Supplies (NEBULIZER/TUBING/MOUTHPIECE) Kit Use 4 times daily prn 02/16/19 Yes Amaya Kowalski APRN, CNP Symbicort 160-4.5 MCG/ACT Aerosol INHALE TWO PUFFS BY MOUTH TWO TIMES A DAY 06/18/21 Yes Amaya Kowalski APRN, DOUGLAS There are no discontinued medications. I have reviewed the home medication list with the patient and have reconciled discrepancies. The list is accurate to the best of my knowledge. Smoking Status: Social History Tobacco Use ??? Smoking status: Current Some Day Smoker Types: Cigarettes ??? Smokeless tobacco: Never Used ??? Tobacco comment: Pt has multiple days in a row [...] Hepatitis B Immunization (3 of 3 - 3-dose series) 11/14/2014 ??? SARS-COV-2 Immunization (3 - Booster for Pfizer series) 04/07/2022 ??? Influenza Immunization (1) 07/30/2022 Orders Pended: no The following BPA's have been addressed with the patient today: Smoking * Sravani Ramsay MD - 08/12/2022 4:00 PM CDT HPI: Patient is a 42 y.o. female who presents today for Blood in Stools (Patient stated that it started on Wednesday evening and that she had loose stools and there was bright red blood in her stool. Patientstated that she is also having lower left quadrant pain. Patient stated that she had a bowel movement right before she came that was formed and that there was no blood in it.) Health Maintenance: Health Maintenance Due Topic Date Due ??? Pneumococcal Immunization (0-64 years) (1 - PCV) Never done ??? DTaP/Tdap/Td Immunization (1 - Tdap) Never done ??? Pap Smear Never done ??? Hepatitis B Immunization (3 of 3 - 3-dose series) 11/14/2014 ??? SARS-COV-2 Immunization (3 - Booster for Pfizer series) 04/07/2022 ??? Influenza Immunization (1) 07/30/2022 Medications: Current Outpatient Medications Medication Sig Dispense Refill ??? albuterol 108 (90 Base) MCG/ACT Aerosol Solution INHALE 1-2 PUFFS BY MOUTH EVERY 4 HOURS NEEDED FOR WHEEZING OR COUGH 8 g 0 ??? ibuprofen (MOTRIN) 200 MG Tablet Take 3 Tabs by mouth every 6 hours as needed for Fever. 20 Tab0 ??? ipratropium-albuterol (DUO-NEB) 0.5-2.5 (3) MG/3ML Solution 3 mL by Nebulization route 4 times daily. 360 Vial 3 ??? LORazepam (ATIVAN) 1 MG Tablet TAKE 1 TABLET BY MOUTH TWICE A DAY NEEDED FOR ANXIETY 30 Tablet 0 ??? Respiratory Therapy Supplies (NEBULIZER) Device Use 4x/day prn. 1 Each 0 ??? Respiratory Therapy Supplies (NEBULIZER/TUBING/MOUTHPIECE) Kit Use 4 times daily prn 1 Each 0 ??? Symbicort 160-4.5 MCG/ACT Aerosol INHALE TWO PUFFS BY MOUTH TWO TIMES A DAY 10.2 Inhaler 1 No current facility-administered medications for this visit. Review of Systems Constitutional: Negative. HENT: Negative. Eyes: Negative. Respiratory: Negative. Cardiovascular: Negative. Gastrointestinal: Positive for abdominal pain, blood in stool and diarrhea. Irma was having bloody diarrhea from Wednesday until today with bright red blood on the toilet paperand turning the water in the stool red. This is the 2nd bout of rectal bleeding that she has. She has no family history except for distant relative of colon cancer. She denies eating a lot of red meat. She is a smoker. Genitourinary: Negative. Musculoskeletal: Negative. Skin: Negative. Neurological: Negative. Endo/Heme/Allergies: Negative. Psychiatric/Behavioral: Negative. All other systems reviewed and are negative. Vitals: 08/12/22 1612 BP: 110/60 Pulse: 82 Resp: 18 Temp: 97.5 ??F (36.4 ??C) TempSrc: Temporal SpO2: 99% Weight: 137 lb (62.1 kg) Height: 5' 3 (1.6 m) Body mass index is 24.27 kg/m??. Physical Exam Constitutional: Appearance: Normal appearance. HENT: Head: Normocephalic and atraumatic. Nose: Nose normal. Eyes: Conjunctiva/sclera: Conjunctivae normal. Cardiovascular: Rate and Rhythm: Normal rate. Pulmonary: Effort: Pulmonary effort is normal. Abdominal: Tenderness: There is no abdominal tenderness. Genitourinary: Rectum: Normal. Comments: Patient's rectum is normal with no hemorrhoids noted externally. Appears there are 2 smaller internal hemorrhoids that may need to be evaluated. These are not painful. And she has had no rectum pain throughout the course of the rectal bleeding. Skin: General: Skin is warm and dry. Neurological: Mental Status: She is alert. Past, family, surgical, and social history reviewed and updated in the chart. Assessment/Plan: 1. Bloody diarrhea - COLONOSCOPY REFERRAL; Future 2. Tobacco use disorder Quit smoking class information at [facility] gains when you quit flyer was given and explained to the patient. Patient verbalizes understanding and agrees with plan of care as noted above. New medication discussed with patient and family, including action of medication, potential side effects, interactions, and consequences for not taking it. Patient states understanding of new medication instructions. An After Visit Summary with personalized patient education was printed and given to the patient. Documentation for this visit on 08/12/22 was completed using a template. I have seen and examined the patient. Everything documented was personally performed at this visit with the necessary additions, deletions and changes made as appropriate. documented in this encounter Miscellaneous Notes * Addendum Note - Jo Sorenson RMA - 08/12/2022 4:00 PM CDTAddended by: LALITO SORENSON on: 08/11/2023 03:26 PM Modules accepted: Orders documented in this encounter Plan of Treatment Upcoming Encounters Date Type Department Care Team (Late st Contact Info) Description 03/21/2025 4:30 PM CDT [facility] [place] [address] [place] [address] Shravan Burgos, PAPI [address] [place] [address] documented as of this encounter Goals Goal Patient Goal Type Associated Problems Recent Progress Patient-Stated? 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 COVID - 19 11/26/2022 11/26/2022 12/06/2022 12:1 9 AM BLOOD DONOR RECRUITER SUPERVISOR Assessment Noted Time PHQ-9 Depression Total Score: 13 020 2:00 PM CDT documented as of this encounter Care Teams Pan Greaser Relationship Specialty Start Date End Date Amaya Kowalski, RETAIL MANAGEMENT KEYHOLDER, LOGISTICS SPECIALIST [address] [place] [address] PCP - General Advanced Practice Nurse 06/10/18 04/22/23 Sravani Ramsay MD [address] [place] [address] PCP - General Family Medicine 04/23/23 12/30/23 Arnold Roberts MD [address] [place] [address] Consulting Physician Pulmonary Disease 07/26/23 documented as of this encounter
--- OUTSIDE RECORDS SUMMARY | 2024-11-30 17:16 | XMS_ITS | Encounter Summary ---
Author Organization [facility] Address [address] [place] [address] Phone Care Team Providers Care Aerophysicist Name Role Phone Aamya Kowalski APRN, CNP Primary Care Provider Reason for Visit * Reason Onset Date Comments Advice Only 08/12/2022 Blood in stools Encounter Details Date Type Department Care Team (Late st Contact Info) Description 08/12/2022 Nurse Triage [facility] - Primary Care - [place] [address] [place] [address] Amaya Kowalski APRN, CNP [address] [place] [address] Advice Only (Blood in stools) Social History Tobacco Use Types Packs/Day Years [...] encounter Miscellaneous Notes * Telephone Encounter - Jensen Oconnell RN - 08/12/2022 8:31 AM CDT . SITUATION: Blood in stool BACKGROUND: Onset Wednesday ASSESSMENT: Symptom Description / Location: Patient had blood in stool 3 times on Wednesday night and Patient states she had blood In her stool yesterday morning.Patient has not had any blood in stool since then [place] red blood Changed the water in the toilet red Watery Diarrhea Abdominal cramping- feels like period cramps Fatigue Denies: Denies chest pain, difficulty breathing, and shortness of breath. Dizziness, clots Pain: 3/10 Constant or intermittent: Comes and goes Temp/Route: WNL I+O: WNL Treatment / Response: denies LMP / / : IUD RECOMMENDATION: See care advice and disposition for Guideline All Patient Appointments Provider Department Dept Phone 08/12/2022 4:00 PM Sravani Ramsay [facility] - Family Medicine [facility] [phone] 08/14/2022 5:45 PM [email or web address] [phone] 08/17/2022 4:00 PM Jo Florian [facility] [phone] Allergies, medications, and pharmacy verified. Assisted services addressed; none needed. Patient verbalized understanding, and agreeable to recommendations. First positive answer recorded, all responses to prior questions were negative. If symptoms increase, change or if new symptoms develop, call your HCP or call back. Recommendations were based on caller information and is not a diagnosis. Verified and reviewed all triage information with caller. Reason for Disposition ??? MODERATE rectal bleeding (small blood clots, passing blood without stool, or toilet water turnsred) Protocols used: RECTAL [id number] * Telephone Encounter - Leona Rodas RN - 08/12/2022 8:15 AM CDT [email or web address] message sent to patient. * Telephone Encounter - Leona Rodas RN - 08/12/2022 8:07 AM CDTFrom: Irma Seymour To: Ivelisse Kowalski Sent: 08/12/2022 7:29 AM CDT Subject: Red Blood in Stool Good morning, So Wednesday night into Wednesday I had like 4 very loose stools back to back and when I wiped there was bright red blood on the toilet paper and quite a bit in the toilet all times as well. I have been having a lot of back pain more than usual and now having a little cramping into my left side going down into m y leg. Not sure if this is caused by hemmorids or what I should do. I am no longer seeing the blood as of yesterday senior underwriter. Please let me know what I should do!! documented in this encounter Plan of Treatment Upcoming Encounters Date Type Department Care Team (Late st Contact Info) Description 03/21/2025 4:30 PM CDT Office Visit [facility] - Primary Care - [place] [address] [place] [address] Shravan Burgos PAC [address] [place] [address] documented as of this encounter [...] 9:50 AM CDT) No Eloise Jenkins, [facility] Note: Irma will engage in a [...] documented as of this encounter Care Teams Aerophysicist Relationship Specialty Start Date End Date Amaya Kowalski, LIBRARY CUSTOMER SERVICE CLERK, PNEUMATIC TUBE REPAIRER [address] [place] [address] PCP - General Advanced Practice Nurse 06/10/18 documented as of this encounter
--- OUTSIDE RECORDS SUMMARY | 2024-11-30 17:16 | XMS_ITS | Encounter Summary ---
Author Organization [employer] Care Team Providers Care Decating Machine Operator Name Role Phone Amaya Kowalski APRN, COMMERCIAL GLAZIER Primary Care Provider Encounter Details Date Type Department Care Team (Latest Contact Info) Description 08/12/2022 Travel Social History Tobacco Use Types Packs/Day [...] suspected to have Coronavirus/COVID-19? No / Unsure 08/12/2022 3:58 PM CDT documented as of this encounter Plan of Treatment Upcoming Encounters Date Type Department Care Team (Late st Contact Info) Description 03/21/2025 4:30 PM CDT Office Visit [facility] - Primary Care - [place] [address] [place] [address] Shravan Burgos, PAC [address] [place] [address] documented as of this encounter Goals Goal Patient Goal Type Associated Problems Recent Progress Patient-Stated? Author [facility] Health On track(2019 9:50 [...] and past) that trigger mood concerns. Behavioral [facility] Health On track(2019 9:50 AM CDT) [...] documented as of this encounter Care Teams Decating Machine Operator Relationship Specialty Start Date End Date Amaya Kowalski, BDC MANAGER, COMMERCIAL GLAZIER [address] [place] [address] PCP - General Advanced Practice Nurse 06/10/18 documented as of this encounter
--- OUTSIDE RECORDS SUMMARY | 2024-11-30 17:16 | XMS_ITS | Encounter Summary ---
Author Organization [employer] Care Team Providers Care Medical Practitioners Name Role Phone Amaya Kowalski APRN, PSYCHIATRIC SECRETARY Primary Care Provider Encounter Details Date Type Department Care Team (Latest Contact Info) Description 08/14/2022 Travel Social History Tobacco Use Types Packs/Day [...] suspected to have Coronavirus/COVID-19? No / Unsure 08/14/2022 5:23 PM CDT documented as of this encounter Plan of Treatment Upcoming Encounters Date Type Department Care Team (Late st Contact Info) Description 03/21/2025 4:30 PM CDT Office Visit [facility] - Primary Care - [place] [address] [place] [address] Shravan Burgos, PAC [address] [place] [address] documented as of this encounter Goals Goal Patient Goal Type Associated Problems Recent Progress Patient-Stated? Author [facility] Health On track(2019 9:50 AM [...] and past) that trigger mood concerns. Behavioral [facility] On track(2019 9:50 AM CDT) [...] documented as of this encounter Care Teams Medical Practitioners Relationship Specialty Start Date End Date Amaya Kowalski, PEN AND PENCIL REPAIRER, PSYCHIATRIC SECRETARY [address] [place] [address] PCP - General Advanced Practice Nurse 06/10/18 documented as of this encounter
--- OUTSIDE RECORDS SUMMARY | 2024-11-30 17:16 | XMS_ITS | Encounter Summary ---
Author Organization [facility] Address [address] [place] [address] Phone Care Team Providers Care Administrator Social Welfare Name Role Phone Amaya Kowalski APRN, SPECIAL NEEDS TUTOR Primary Care Provider Reason for Visit * Reason Onset Date Comments cancelled due to work 08/27/2022 Encounter Details Date Type Department Care Team (Late st Contact Info) Description 08/27/2022 Telephone [facility] [address], [address] [place] [address] Jo Florian, PT [place] cancelled [...] suspected to have Coronavirus/COVID-19? No / Unsure 08/27/2022 12:25 AM CDT documented as of this encounter Miscellaneous Notes * Telephone Encounter - Jo Florian, PT - 08/27/2022 1:31 PM CDT ----- Message from Gerry Gonzalez sent at 08/27/2022 1:08 PM CDT ----- Regarding: cxd Same day cxd# Patient was called into work documented in this encounter Plan of Treatment Upcoming Encounters Date Type Department Care Team (Late st Contact Info) Description 03/21/2025 4:30 PM CDT Office Visit [facility] - Primary Care - [place] [address] [place] [address] Shravan Burgos PAC [address] [place] [address] documented as of this encounter [...] making a change Department associated with goal: [facility] Steps [...] make a change Department associated with goal: [facility] Steps [...] documented as of this encounter Care Teams Administrator Social Welfare Relationship Specialty Start Date End Date Amaya Kowalski APRN, SPECIAL NEEDS TUTOR [address] [place] [address] PCP - General Advanced Practice Nurse 06/10/18 documented as of this encounter
--- OUTSIDE RECORDS SUMMARY | 2024-11-30 17:16 | XMS_ITS | Encounter Summary ---
Author Organization [facility] Address [address] [place] [address] Phone Care Team Providers Care Mathematics Department Chair Name Role Phone Amaya Kowalski APRN, CNP Primary Care Provider Reason for Visit * PT/OT/ST (Routine) - Closed Specialty Diagnoses / Procedures Referred By Claudio t Referred To Contact Rehabilitation Diagnoses Low back pain, unspecified Veronika Ornates APRN, RN PATIENT CARE [address] [place] [address] Phone: tel: fax: [facility] [address] [facility], [address] [address] Phone: tel: fax: Referral ID Status Reason Start Date Expiration Date Visits Re quested Visits Authorized [id number] Closed 1 1 Encounter Details Date Type Department Care Team (Late st Contact Info) Description 08/17/2022 4:00 PM CDT Physical Therapy [facility] [address], [address] [place] [address] Vernoika Orantes APRN, RN PATIENT CARE [address] [place] [address] Jo Florian, PT [place] Back pain (Primary Dx); [...] Miscellaneous Notes * Plan of Care - Jo Florian, PT - 08/17/2022 4:00 PM CDT Initial Evaluation - Electronically signed by: JO FLORIAN, PT August 17, 2022 SUBJECTIVE: Onset Date: progressive Primary complaint: low back pain into the left leg and groin/hip Patient Narrative: Patient reports she is having low back pain that radiates into the left leg and into the groin. Reports she has pain into both the knees. Reports that she has pretty significant scoliosis and they found it when she was a teenager but never had any issues, even when playing sportsuntil her 30s. Reports that as she gets older, the pain has gotten worse. States she did therapy last year which was helping but she had to quit because she changed jobs. Reports she still does some of the exercises which do help. Mostly she does the stretches where she is reaching voer her head tostretch out her left side. Reports she has pain if she is any position for a long time, and has to m ove to get out of the position all of the time. Reports she has difficulty coming up from a squatting position which she has to do at work a lot of the time. Reports it hurts to sit for a long time and gets pain in the left side and hip. Reports pain into left groin as well. Reports by the end of the week it hurts more. Reports when it gets aggravated, she takes ibuprofen and tries to stretch it out to try and make it feel better and changing positions seems to help some. Reports if she is stands with wt shifted to the right that helps some. Reports sometimes she gets some numbness and tingling in the right knee, right calf and sometimes in the big toe. Reports that the right knee does bother her behind the knee and sometimes in the front of the knee. States she can pretty much do everything, she just has to pace herself and change positions all of the time. States that she just pushes through and does not let it stop her from doing anything, it just hurts. - Current level of function: difficulty with stairs, getting up from squatting, (knees), difficultywith prolonged sitting or standing to do dishes ect. - Prior level of function: independent with all activities without pain. Symptom Location: left hip/back 1) Current pain 3/10 - Constant, described as sharp pain in the left anterior hip, which feels better if she pushes intoit - Range 3/10 to 8/10 - Aggravating factors: getting up and down repeatedly, laying on side makes it worse - Easing factors: relaxing on her couch, with legs crossed cymraes style Patient is Left side dominant. 24 hour symptom behavior/sleep: tosses and turns all night This patient exhibits fear avoidance behavior No Pertinent Past Medical History including: COPD and COVID-19 (body ache and fever for a few days, had GI stuff) Red flags: numbness / tingling Prior treatment attempted: therapy in the past Coordination of care: Patient denies prior therapy this year for this or any other condition. Patient is not currently seeking other concurrent treatment. 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 Score 1 Section 4- Walking (0) Pain does not [...] prevents me from standing at all. Score 2 Section 7- Sleeping (0) My sleep is [...] no social life because of pain. Score 0 Section 10- Travelling (0) I can travel [...] from travelling except to receive treatment. Score 1 Total score 10/45 Score/possible (50 if all scored) x 100 22% disability Lumbar: Range of Motion: All Range of Motion documentation below is measured in degrees unless otherwise indicated. Lumbar: Flexion: AROM: FT to knee Extension: AROM: wfl decreased pain Left Hip Internal Rotation: AROM: 10 Right Hip Internal Rotation: AROM: 45 Left Hip External Rotation: AROM: wfl Right Hip External Rotation: AROM: wfl Flexibility: Hamstrings: Left: -22 Right: -12 Rectus Femoris: Left: 135 Right: 133 Strength: All strength measurements out of 5 unless otherwise indicated. Increased lumbar extension with hip extension strength test, Increased lumbar rotation with glut med testing bilaterally, left greater than right. Hip Flexion (L2-3): Left: 4+ Right: 4+ Hip Extension: Left: 3 Right: 3+ Hip Abduction: Left: 3- Right: 3 Posture/Palpation: Posture comments: Iliac crest elevated on the left, scoliosis with concavity on the left in thoracic and righ cervical Rotation to the right with flexion and to the left with extension ASIS elevated and posterior on the left, anterior and inferior on the right Palpation comment: Patient tender to palpation of left glut min and glut med, lumbar paraspinals. Hip/Knee: Left Joint Mobility: Hip: Posterior: Hypo Inferior: Hypo Lateral: Hypo Special Tests: Hip: Positive for Left: RYDER, FADIR and SI Compression TREATMENT: Patient was educated in the overall POC, the findings during the evaluation, and the goals for PT. Patient was educated in [facility] attendance policy for therapy and signed agreement to abide by the policy. Patient was in agreement with the overall POC. Patient was educated in the anatomy of the spineand hip. Educated on leg length discrepancy and the effect of scoliosis on pain. Educated on the relationship of the hip and the spine. Educated on positive findings of the hip and the limitations ofspecial testing. Educated on hip and core weakness and how that relates to hip and back pain. Patient was instructed in resisted clam shells and was given green tband for home program. Educatedon the importance of lumbar stabilization with the exercise and instructed to move through small range of motion without pain. Instructed to hold exercise if there is an increase in pain. ASSESSMENT: Other Details: Therapy Diagnosis: low back pain, abnormal posture, weakness in trunk, weakness in hips Medical Diagnosis: Low back pain, unspecified Irma Seymour is a 42 y.o. patient referred to Physical Therapy with deficits noted including impairments of decreased strength in her hip and core, decreased range of motion in her left hip, increased pain in her hip and low back, postural faults and joint hypomobility in the left hip which contribute to the following areas of functional restriction or limitation: pain with squatting, prolongedwalking, prolonged standing and difficulty sleeping. She is currently have pain with performance ofhousehold chores and work activities. Clinical impression at this time: Patient will benefit from ongoing skilled Physical Therapy intervention. Rehab potential: good. Complexities that are a barrier to service: Degree of scoliosis All charges entered today are appropriate and [...] relief, soft tissue extensibility and joint mobility (94304) - Therapeutic exercise program for: motion/mobility, strengthening, flexibility, and functional limitations (82369) - Therapeutic activities for functional activity education/training, and in home safety recommendations as appropriate (73735) - Neuro Muscular Re-education for body mechanics education and postural re- education as appropriate(37770) - Gait training (02434) - Patient education regarding posture, ergonomics, body mechanics, HEP progression and exercise performance - Individualized home exercise program - Modalities as needed for pain relief, anti-inflammatory effect and soft tissue extensibility - Mechanical traction (85555) - Trigger point dry needling for pain relief and reducing tension in associated musculature (02813 or 51786) Precautions: none noted at this time. . Treatment may be altered based on patient progression and symptoms. The plan of care, as well as the benefits and risks of therapy were reviewed with the patient and the patient consented to treatment. . Cosigned by Amaya Kowalski APRN, DOUGLAS at 08/18/2022 4:36 PM CDT documented in this encounter Plan of Treatment Upcoming Encounters Date Type Department Care Team (Late st Contact Info) Description 03/21/2025 4:30 PM CDT Office Visit [facility] - Primary Care - [address] [place] [address] Shravan Burgos PAC [address] [place] [address] documented as of [...] making a change Department associated with goal: [facility] Steps to [...] make a change Department associated with goal: [facility] Steps to [...] documented as of this encounter Care Teams Mathematics Department Chair Relationship Specialty Start Date End Date Amaya Kowalski, LIVESTOCK TRADER, RN PATIENT CARE [address] [place] [address] PCP - General Advanced Practice Nurse 06/10/18 documented as of this encounter
--- OUTSIDE RECORDS SUMMARY | 2024-11-30 17:16 | XMS_ITS | Encounter Summary ---
Author Organization [employer] Care Team Providers Care School Nurse Name Role Phone Amaya Kowalski APRN, PAWN SHOP KEEPER Primary Care Provider Encounter Details Date Type Department Care Team (Latest Contact Info) Description 08/27/2022 Travel Social History Tobacco Use Types Packs/Day [...] Description 03/21/2025 4:30 PM CDT Office Visit [facility] - Primary Care - [address] [address] [place] [address] Shravan Burgos, PAC [address] [place] [address] documented as of this encounter Goals Goal Patient Goal Type Associated Problems Recent Progress Patient-Stated? Author [facility] On track(2019 9:50 AM CDT) Yes Eloise Jenkins LCPC Note: Irma reported her goal for psychotherapy is to help me be able to deal with things in the present and in her past that are contributing to low and anxious mood. Goal Reviewed with: patient Readiness to change: Thinking about making a change Department associated with goal: [facility] Steps to achieve goal: 1. Irma will attend psychotherapy, at minimum twice a month. 2. Irma will identify and explore atleast three incidents/experiences of current stressors, past trauma and family dynamics that contribute to her mood concerns. 3. Irma will identify at least three ways/skills to heal and cope with the experiences (current and past) that trigger mood concerns. Behavioral [facility] On track(2019 9:50 AM CDT) No Eloise Jenkins LCPC Note: Irma will engage in a plan of action to improve emotional and mental wellbeing. Goal Reviewed with: patient Readiness to change: Not yet ready to make a change Department associated with goal: [facility] Steps to achieve goal: [...] documented as of this encounter Care Teams School Nurse Relationship Specialty Start Date End Date Amaya Kowalski, PHOSPHORIC ACID SUPERVISOR, PAWN SHOP KEEPER [address] [place] [address] PCP - General Advanced Practice Nurse 06/10/18 documented as of this encounter
--- OUTSIDE RECORDS SUMMARY | 2024-11-30 17:16 | XMS_ITS | Encounter Summary ---
Author Organization [facility] Address [address] [place] [address] Phone Care Team Providers Care Fishing Guide Name Role Phone Amaya Kowalski APRN, BOTTOMING MACHINE OPERATOR Primary Care Provider Encounter Details Date Type Department Care Team (Late st Contact Info) Description 09/03/2022 4:15 PM CDT [facility] [address], [address] [place] [address] Veronika Orantes APRN, BOTTOMING MACHINE OPERATOR [address] [facility] [place] [address] Jameel Florian, PT [place] Discharge Disposition: Discharged [...] of Care - Jameel Florian, PT - 09/03/2022 4:15 PM CDT Treatment Note - Electronically signed by: JAMEEL FLORIAN, PT September 03, 2022 SUBJECTIVE: Patient reports that she did really well after last visit until this morning when she had to do a lot of sitting this morning. Reports she had to get up and walk around to feel good enough to work. Reports that the soft tissue work really seemed to help. Reports she is doing the exercises once a day before she gets in the shower. Objective TREATMENT: Refer to PT OP Rehab Therapy Treatment flowsheet for details/minutes. Home Exercises distributed via: handout Access Code: [email or web address] URL: [email or web address] Date: 08/24/2022 Prepared by: Jameel Florian Exercises [...] exercises and was challenged by each activity. Patient was challenged by progression of exercises but demonstrated improved form with core stabilization exercises throughout the session ??Patient would benefit from continued skilled interventions, as stated in the plan of care, due tothe following functional limitations: pain with squatting, prolonged walking, prolonged standing and difficulty sleeping. 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 All charges entered today [...] relief, soft tissue extensibility and joint mobility (73493) - Therapeutic exercise program for: motion/mobility, strengthening, flexibility, and functional limitations (30370) - Therapeutic activities for functional activity education/training, and in home safety recommendations as appropriate (36959) - Neuro Muscular Re-education for body mechanics education and postural re- education as appropriate(06025) - Gait training (40652) - Patient education regarding posture, ergonomics, body mechanics, HEP progression and exercise performance - Individualized home exercise program - Modalities as needed for pain relief, anti-inflammatory effect and soft tissue extensibility - Mechanical traction (22450) - Trigger point dry needling for pain [...] Description 03/21/2025 4:30 PM CDT Office Visit [facility] - Primary Care - [address] [place] [address] Shravan Burgos PAC [address] [place] [address] documented as of this encounter [...] documented as of this encounter Care Teams Fishing Guide Relationship Specialty Start Date End Date Amaya Kowalski, TOP PRINTING PRESS OPERATOR, BOTTOMING MACHINE OPERATOR [address] [place] [address] PCP - General Advanced Practice Nurse 06/10/18 documented as of this encounter
--- OUTSIDE RECORDS SUMMARY | 2024-11-30 17:16 | XMS_ITS | Encounter Summary ---
Author Organization [facility] Address [address] [place] [address] Phone Care Team Providers Care Sales Representative Supervisor Name Role Phone Amaya Kowalski APRN, JACQUARD LOOM CARD CHANGER Primary Care Provider Encounter Details Date Type Department Care Team (Late st Contact Info) Description 08/24/2022 4:15 PM CDT [facility] [address], [address] [place] [address] Veronika Orantes APRN, JACQUARD LOOM CARD CHANGER [address] [facility] [address] [facility] [address] [place] [address] Jo Florian, PT [place] Discharge Disposition: Discharged to [...] of Care - Jo Florian, PT - 08/24/2022 4:15 PM CDT Treatment Note - Electronically signed by: JO FLORIAN, PT August 24, 2022 SUBJECTIVE: Pt reports that she is about the same. Reports that she did do the exercises and has some soreness in the hip, but muscle soreness. Reports it was like she would expect though. Objective TREATMENT: Refer to PT OP Rehab Therapy Treatment flowsheet for details/minutes. Home Exercises distributed via: handout Access Code: [email or web address] URL: [email or web address] Date: 08/24/2022 Prepared by: Jo Florian Exercises Clamshell with Resistance - 1 [...] Mfr to the lumbar and thoracic region, psoas release on the left, soft tissue work to rectus femoris on the left, soft tissue work to lumbar paraspinals on the right. Inferior glides to the left hip. Mobilization with movement through left hip flexion. Interventions provided this session: manual therapy, therapeutic exercises Therapist provided Education and Skilled therapy by identifying substitutions during exercises withcorrection of form as well as identifying and releasing of soft tissue restrictions. . ASSESSMENT: Other Details: Patient is not yet demonstrating progress as evidenced by first visit since evaluation. Patient was issued a home program to review next visit..?? Patient would benefit from continued skilled interventions, as stated in the plan of care, due to the following functional limitations: pain with squatting, prolonged walking, prolonged standing and difficulty sleeping. 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 ?? All charges entered [...] relief, soft tissue extensibility and joint mobility (47807) - Therapeutic exercise program for: motion/mobility, strengthening, flexibility, and functional limitations (77045) - Therapeutic activities for functional activity education/training, and in home safety recommendations as appropriate (37753) - Neuro Muscular Re-education for body mechanics education and postural re- education as appropriate(50195) - Gait training (42987) - Patient education regarding posture, ergonomics, body mechanics, HEP progression and exercise performance - Individualized home exercise program - Modalities as needed for pain relief, anti-inflammatory effect and soft tissue extensibility - Mechanical traction (68236) - Trigger point dry needling for pain [...] 03/21/2025 4:30 PM CDT Office Visit [facility] - Primary Care - [address] [place] [address] Shravan Burgos, PAPI [address] [place] [address] documented as of this encounter Goals Goal Patient Goal Type Associated Problems Recent Progress Patient-Stated? Author Behavioral [facility] On track(2019 9:50 AM CDT) Yes Eloise Jenkins LCPC Note: Irma reported her goal for psychotherapy is to help me be able to deal with things in the present and in her past that are contributing to low and anxious mood. Goal Reviewed with: patient Readiness to change: Thinking about making a change Department associated with goal: [facility] Steps to achieve goal: [...] past) that trigger mood concerns. Behavioral [facility] On track(2019 9:50 AM CDT) No Eloise Jenkins LCPC Note: Irma will engage in a plan of action to improve emotional and mental wellbeing. Goal Reviewed with: patient Readiness to change: Not yet ready to make a change Department associated with goal: [facility] [...] as of this encounter Care Teams Sales Representative Supervisor Relationship Specialty Start Date End Date Amaya Kowalski, RIM TECHNICIAN, JACQUARD LOOM CARD CHANGER [address] [place] [address] PCP - General Advanced Practice Nurse 06/10/18 documented as of this encounter
--- OUTSIDE RECORDS SUMMARY | 2024-11-30 17:16 | XMS_ITS | Encounter Summary ---
Author Organization [facility] Address [address] [place] [address] Phone Care Team Providers Care Smoke And Flame Specialist Name Role Phone Amaya Kowalski APRN, CNP Primary Care Provider Reason for Visit * Reason Comments Medication Refill Encounter Details Date Type Department Care Team ([facility] st Contact Info) Description 08/18/2022 Refill [facility] - Primary Care - [place] [address] [place] [address] Amaya Kowalski APRN, HEAVY DUTY PRESS OPERATOR [address] [place] [address] Medication Refill Social History Tobacco [...] Encounter - Amaya Kowalski APRN, CNP - 08/18/2022 2:19 PM CDT [place] Prescription Monitoring Site reviewed. * Telephone Encounter - Michell Rowley RN - 08/18/2022 1:50 PM CDT PDMP filled 07/15/2022 #30 Medication failed the protocol, provider to review and approve the medication order if appropriate. Requested Prescriptions Pending Prescriptions Disp Refills LORazepam (ATIVAN) 1 MG Tablet [Pharmacy Med Name: LORAZEPAM 1 MG TABLET] 30 Tablet 0 Sig: TAKE 1 TABLET BY MOUTH TWICE A DAY NEEDED FOR ANXIETY Not Delegated - Benzodiazepines Protocol Failed - 08/18/2022 1:23 PM Failed - This refill cannot be delegated Passed - Visit with relevant provider in past 12 months or upcoming 90 days Recent Visits Date Type Provider Dept 08/12/22 Office Visit Sravani Ramsay MD [facility] Showing recent visits within past 365 [...] [facility] - Primary Care - [place] [address] [place] [address] Shravan Burgos, PAPI [address] [place] [address] documented as of this encounter Goals Goal Patient Goal Type Associated Problems Recent Progress Patient-Stated? Author Behavioral [facility] On track(2019 9:50 AM CDT) Yes Eloise Jenkins LCPC Note: Irma reported her goal for psychotherapy is to help me be able to deal with things in the present and in her past that are contributing to low and anxious mood. Goal Reviewed with: patient Readiness to change: Thinking about making a change Department associated with goal: [facility] Steps to achieve goal: 1. Irma will attend psychotherapy, at minimum twice a month. 2. Irma will identify and explore atleast three incidents/experiences of current stressors, past trauma and family dynamics that contribute to her mood concerns. 3. Irma will identify at least three ways/skills to heal and cope with the experiences (current and past) that trigger mood concerns. Behavioral [facility] On track(2019 9:50 AM CDT) No Eloise Jenkins LCPC Note: Irma will engage in a plan of action to improve emotional and mental wellbeing. Goal Reviewed with: patient Readiness to change: Not yet ready to make a change Department associated with goal: [facility] Steps to achieve goal: [...] documented as of this encounter Care Teams Smoke And Flame Specialist Relationship Specialty Start Date End Date Amaya Kowalski, HEEL PAINTER, HEAVY DUTY PRESS OPERATOR [address] [place] [address] PCP - General Advanced Practice Nurse 06/10/18 documented as of this encounter
--- OUTSIDE RECORDS SUMMARY | 2024-11-30 17:16 | XMS_ITS | Encounter Summary ---
Author Organization [facility] Address [address] [place] [address] Phone Care Team Providers Care Cost Recovery Technician Name Role Phone Amaya Kowalski APRN, CNP Primary Care Provider Reason for Visit * Radiology Services (Routine) - Closed Specialty Diagnoses / Procedures Referred By Claudio t Referred To Contact Radiology Diagnoses Visit for screening mammogram Procedures NU SCREENING BILATERAL DIGITAL W CAD W WILBERT NU SCREENING BILATERAL DIGITAL W CAD Veronika Orantes APRN, CNP [address] [place] [address] Phone: tel: fax: Referral ID Status Reason Start Date Expiration Date Visits Re quested Visits Authorized [id number] Closed 07/17/2022 1 1 Encounter Details Date Type Department Care Team (Latest Contact Info) Description 08/14/2022 5:43 PM CDT - 08/14/2022 11:59 PM CDT Hospital Encounter [facility] [address] [place] [address] Veronika Orantes APRN ACOUSTIC WARFARE ANALYST [address] [place] [address] Discharge Disposition: Discharged to home or Selfcare [...] NEEDED FOR WHEEZING OR COUGH 8 g 10/21/2021 2 ipratropium-albu terol (DUO-NEB) 0.5-2.5 (3) MG/3ML Solution 3 mL by Nebulization route 4 times daily. 360 Vial 3 04/05/2020 2 LORazepam (ATIVAN) 1 MG TabletIndication s:Anxiety TAKE 1 TABLET BY MOUTH TWICE A DAY NEEDED FOR ANXIETY 30 Tablet 07/15/2022 2 Symbicort 160-4.5 MCG/ACT AerosolIndicatio ns:Bronchitis INHALE TWO PUFFS BY MOUTH TWO TIMES A DAY 10.2 Inhaler 1 06/18/2021 2 documented as of this encounter Plan of Treatment Upcoming Encounters Date Type Department Care Team (Late st Contact Info) Description 03/21/2025 4:30 PM CDT Office Visit [facility] - Primary Care - [place] [address] [place] [address] Shravan Burgos, PAPI [address] [place] [address] documented as of this encounter Goals Goal Patient Goal Type Associated Problems Recent Progress Patient-Stated? Author Behavioral [facility] On track(2019 9:50 AM CDT) [...] and past) that trigger mood concerns. Behavioral [facility] On track(2019 9:50 AM CDT) [...] BILATERAL DIGITAL W CAD W WILBERT Routine 08/14/2022 6:11 PM CDT Visit for screening mammogram documented in this encounter Results * NU SCREENING BILATERAL DIGITAL W CAD W WILBERT (08/14/2022 6:11 PM CDT) Anatomical Region Laterality Modality breast Bilateral Mammography 08/14/2022 5:45 PM CDT Narrative 08/17/2022 2:17 PM CDT - NU SCREENING BILATERAL DIGITAL W CAD W WILBERT BILATERAL DIGITAL SCREENING MAMMOGRAM 3D/2D WITH CAD WITH MEDIOLATERAL OBLIQUE CRANIOCAUDAL: 08/14/2022 The study was acquired using digital technology and interpreted from soft copy. Current study was also evaluated with ICAD version 7.2. 2D digital mammographic views, as well as 3D digital tomosynthesis were performed in the CC and MLO projections. ?? CLINICAL: Routine screening. Patient has no complaints. No personal history of cancer. Paternal aunt had breast cancer. ?? COMPARISONS: Comparison is made to exams dated: ??11/04/2020, 09/13/2020, and 03/14/2019 [facility]. ?? BREAST TISSUE:The tissue of both breasts is heterogeneously dense. This may lower the sensitivity of mammography. ?? FINDINGS: No significant masses, calcifications, or other findings are seen in either breast. ?? There has been no significant interval change. IMPRESSION: BI-RAD 1 NEGATIVE There is no mammographic evidence of malignancy. A 1 year screening mammogram is recommended. ?? A letter will be sent to the patient with these results. The patient will be entered into a reminder system with a target due date of 1 year for her next screening exam. Electronically signed by: Mounika Song M.D. ? flash/jenna:08/17/2022 14:00:18 ?? Repairer Welding Systems And Equipment(s): Rani ??RT Carolee(R)(M), [facility] letter sent: Normal Exam ?? Reading location: [place] BI-RADS: 1 Negative Procedure Note Mounika Song MD - 08/17/2022 - NU SCREENING BILATERAL DIGITAL W CAD W WILBERT BILATERAL DIGITAL SCREENING MAMMOGRAM 3D/2D WITH CAD WITH MEDIOLATERAL OBLIQUE CRANIOCAUDAL: 08/14/2022 The study was acquired using digital technology and interpreted from soft copy. Current study was also evaluated with BuddyTVD version 7.2. 2D digital mammographic views, as well as 3D digital tomosynthesis were performed in the CC and MLO projections. CLINICAL: Routine screening. Patient has no complaints. No personal history of cancer. Paternal aunt had breast cancer. COMPARISONS: Comparison is made to exams dated: 11/04/2020, 09/13/2020, and 03/14/2019 [facility]. BREAST TISSUE:The tissue of both breasts is heterogeneously dense. This may lower the sensitivity of mammography. FINDINGS: No significant masses, calcifications, or other findings are seen in either breast. There has been no significant interval change. IMPRESSION: BI-RAD 1 NEGATIVE There is no mammographic evidence of malignancy. A 1 year screening mammogram is recommended. A letter will be sent to the patient with these results. The patient will be entered into a reminder system with a target due date of 1 year for her next screening exam. Electronically signed by: Mounika vidales/jenna:08/17/2022 14:00:18 Repairer Welding Systems And Equipment(s): RT Chris(R)(M), [facility] letter sent: Normal Exam Reading location: [place] BI-RADS: 1 Negative us Veronika Orantes APRN, DOUGLAS IMG MAMMO ORDERABLES Kaylin l Result documented in this encounter Visit Diagnoses Diagnosis Visit for screening mammogram Other screening mammogram documented in this encounter Additional Health Concerns Assessment Noted Time PHQ-9 Depression Total Score: 13 020 2:00 PM CDT documented as of this encounter Care Teams Cost Recovery Technician Relationship Specialty Start Date End Date Amaya Kowalski, ON CALL PHARMACY TECHNICIAN, ACOUSTIC WARFARE ANALYST [address] [place] [address] PCP - General Advanced Practice Nurse 06/10/18 documented as of this encounter
--- OUTSIDE RECORDS SUMMARY | 2024-11-30 17:17 | XMS_ITS | Encounter Summary ---
Author Organization [employer] Care Team Providers Care Segment Block Layer Name Role Phone Amaya Kowalski APRN, FLAT EXAMINER Primary Care Provider Encounter Details Date Type Department Care Team (Latest Contact Info) Description 03/27/2022 Travel Social History Tobacco Use Types Packs/Day [...] suspected to have Coronavirus/COVID-19? No / Unsure 03/27/2022 4:26 PM CDT documented as of this encounter Plan of Treatment Upcoming Encounters Date Type Department Care Team (Late st Contact Info) Description 03/21/2025 4:30 PM CDT Office Visit [facility] - Primary Care - [place] [address] [place] [address] Shravan Burgos, PAC [address] [place] [address] documented as of this encounter Goals Goal Patient Goal Type Associated Problems Recent Progress Patient-Stated? Author [facility] Health On track(2019 9:50 AM CDT) Yes Eloise Jenkins LCPC Note: Irma reported her goal for psychotherapy is to help me be able to deal with things in the present and in her past that are contributing to low and anxious mood. Goal Reviewed with: patient Readiness to change: Thinking about making a change Department associated with goal: [facility]IOR[facility] HE[facility] SERVICES Steps to [...] and past) that trigger mood concerns. Behavioral [facility] Behavioral Health On track(2019 9:50 AM CDT) No Eloise Jenkins LCPC Note: Irma will engage in a plan of action to improve emotional and mental wellbeing. Goal Reviewed with: patient Readiness to change: Not yet ready to make a change Department associated with goal: [facility] Steps to [...] documented as of this encounter Care Teams Segment Block Layer Relationship Specialty Start Date End Date Amaya Kowalski, HAND BUTTON SPLITTER, FLAT EXAMINER [address] [place] [address] PCP - General Advanced Practice Nurse 06/10/18 documented as of this encounter
--- OUTSIDE RECORDS SUMMARY | 2024-11-30 17:17 | XMS_ITS | Encounter Summary ---
Author Organization [facility] Address [address] [place] [address] Phone Care Team Providers Care Bolt Man Name Role Phone Amaya Kowalski APRN, CNP Primary Care Provider Reason for Visit * Reason Onset Date Comments Results 06/16/2022 Urine drug scree n Encounter Details Date Type Department Care Team ([facility] Contact Info) Description 06/16/2022 Telephone [facility] - Primary Care - [place] [address] [place] [address] Amaya Kowalski APRN, CNP [address] [place] [address] Results (Urine drug screen) Social History Tobacco Use Types Packs/Day Years [...] suspected to have Coronavirus/COVID-19? No / Unsure 06/09/2022 3:26 PM CDT documented as of this encounter Miscellaneous Notes * Telephone Encounter - Amaya Kowalski APRN, CNP - 06/16/2022 10:32 AM CDT Urine drug screen shows compliance with lorazepam. No illicit seen. * Telephone Encounter - Mohini Aguirre RN - 06/16/2022 10:22 AM CDT Urine drug screen results received from [employer]. Placed in PCP inbox for review. documented in this encounter Plan of Treatment Upcoming Encounters Date Type Department Care Team (Late st Contact Info) Description 03/21/2025 4:30 PM CDT Office Visit [facility] - Primary Care - [place] [address] [place] [address] Shravan Burgos PAC [address] [place] [address] documented as of this encounter [...] making a change Department associated with goal: [facility] BE[facility]AVIORAL HE[facility] SERVICES Steps to achieve goal: [...] make a change Department associated with goal: [facility] Steps to achieve goal: [...] documented as of this encounter Care Teams Bolt Man Relationship Specialty Start Date End Date Amaya Kowalski, NEWSPAPER PUBLISHER, SMOKE CHASER [address] [place] [address] PCP - General Advanced Practice Nurse 06/10/18 documented as of this encounter
--- OUTSIDE RECORDS SUMMARY | 2024-11-30 17:17 | XMS_ITS | Encounter Summary ---
Author Organization [facility] Address [address] [place] [address] Phone Care Team Providers Care Television Service Engineer Name Role Phone Amaya Kowalski APRN, AUTO CARRIER DRIVER Primary Care Provider Encounter Details Date Type Department Care Team (Late st Contact Info) Description 07/17/2022 Transcribe Orders [facility] [address] [place] [address] Veronika Orantes APRN, AUTO CARRIER DRIVER 4 [facility] [address] [place] [address] Visit for screening mammogram (Primary [...] CDT Office Visit [facility] - Primary Care - [place] [address] [place] [address] Shravan Burgos, PAPI [address] [place] [address] documented as of this encounter [...] documented as of this encounter Care Teams Television Service Engineer Relationship Specialty Start Date End Date Amaya Kowalski, HOSPICE BEREAVEMENT COORDINATOR, AUTO CARRIER DRIVER [address] [place] [address] PCP - General Advanced Practice Nurse 06/10/18 documented as of this encounter
--- OUTSIDE RECORDS SUMMARY | 2024-11-30 17:17 | XMS_ITS | Encounter Summary ---
Author Organization [employer] Care Team Providers Care Livestock Exhibitor Name Role Phone Amaya Kowalski APRN, LIFE INSURANCE ACTUARY Primary Care Provider Encounter Details Date Type Department Care Team (Latest Contact Info) Description 06/09/2022 Travel Social History Tobacco Use Types Packs/Day [...] Description 03/21/2025 4:30 PM CDT Office Visit [facility] Medical [facility] - Primary Care - [place] [address] [place] [address] Shravan Burgos, PAC [address] [place] [address] documented as of this encounter Goals Goal Patient Goal Type Associated Problems Recent Progress Patient-Stated? Author [facility] Health On track(2019 9:50 AM CDT) Yes Eloise Jenkins LCPC Note: Irma reported her goal for psychotherapy is to help me be able to deal with things in the present and in her past that are contributing to low and anxious mood. Goal Reviewed with: patient Readiness to change: Thinking about making a change Department associated with goal: [facility] BEHAVIORAL HEALTH SERVICES Steps [...] past) that trigger mood concerns. Behavioral [facility] Behavioral Health On track(2019 9:50 AM CDT) No Eloise Jenkins LCPC Note: Irma will engage in a plan of action to improve emotional and mental wellbeing. Goal Reviewed with: patient Readiness to change: Not yet ready to make a change Department associated with goal: [facility] BE[facility]AVIORAL HEALTH SERVICES Steps [...] documented as of this encounter Care Teams Livestock Exhibitor Relationship Specialty Start Date End Date Amaya Kowalski, STATION OPERATOR, LIFE INSURANCE ACTUARY [address] [place] [address] PCP - General Advanced Practice Nurse 06/10/18 documented as of this encounter
--- OUTSIDE RECORDS SUMMARY | 2024-11-30 17:17 | XMS_ITS | Encounter Summary ---
Author Organization [facility] Address [address] [place] [address] Phone Care Team Providers Care City Distribution Clerk Name Role Phone Amaya Kowalski APRN, DOUGLAS Primary Care Provider Encounter Details Date Type Department Care Team (Late st Contact Info) Description 06/09/2022 3:30 PM CDT Lab [facility] - Primary Care - [address] [phone] Lab, [facility] Discharge Disposition: Discharged to home [...] encounter Progress Notes * Patti Weaver - 06/09/2022 3:30 PM CDT UDS Collected per Amaya Kowalski APN 06/09/2022 and Sent to [employer] documented in this encounter Plan of Treatment Upcoming Encounters Date Type Department Care Team (Late st Contact Info) Description 03/21/2025 4:30 PM CDT Office Visit [facility] - Primary Care - [place] [address] [place] [address] Shravan Burgos PAC [address] [place] [address] documented as of this encounter Goals Goal Patient Goal Type Associated Problems Recent Progress Patient-Stated? Author Behavioral Health Behavioral Health On track(2019 9:50 AM CDT) Yes Eloise Jenkins, [facility] Note: Irma reported her goal [...] track(2019 9:50 AM CDT) No Eloise Jenkins, SUPPORT TEACHER Note: Irma will engage in a plan [...] documented as of this encounter Care Teams City Distribution Clerk Relationship Specialty Start Date End Date Amaya Kowalski, SWITCH COUPLER, PALS NURSE [address] [place] [address] PCP - General Advanced Practice Nurse 06/10/18 documented as of this encounter
--- OUTSIDE RECORDS SUMMARY | 2024-11-30 17:17 | XMS_ITS | Encounter Summary ---
Author Organization [facility] Address [address] [place] [address] Phone Care Team Providers Care Lawn Mower Mechanic Name Role Phone Amaya Kowalski APRN, CNP Primary Care Provider Reason for Visit * Reason Comments Medication Refill Encounter Details Date Type Department Care Team ([facility] st Contact Info) Description 05/06/2022 Refill [facility] - Primary Care - [place] [address] [place] [address] Amaya Kowalski APRN, ELECTRIC KNIFE OPERATOR [address] [place] [address] Medication Refill Social History Tobacco [...] Encounter - Amaya Kowalski APRN, CNP - 05/06/2022 3:57 PM CDT [place] prescription monitoring site reviewed. Medication approved. * Telephone Encounter - Shena Romo RN - 05/06/2022 11:27 AM CDT Per [place] PDMP last fill date 02/17/22. documented in this encounter Plan of Treatment Upcoming Encounters Date Type Department Care Team (Late st Contact Info) Description 03/21/2025 4:30 PM CDT Office Visit [facility] - Primary Care - [place] [address] [place] [address] Shravan Burgos PAC [address] [place] [address] documented as of this encounter Goals Goal Patient Goal Type Associated Problems Recent Progress Patient-Stated? Author Behavioral Health Behavioral Health On track(2019 9:50 AM CDT) Yes Eloise Jenkins, [facility] Note: Irma reported her goal for psychotherapy is to help me be able to deal with things in the present and in her past that are contributing to low and anxious mood. Goal Reviewed with: patient Readiness to change: Thinking about making a change Department associated with goal: [facility] BEHAVIORAL HEALTH SERVICES Steps to [...] track(2019 9:50 AM CDT) No Eloise Jenkins, FORMULA MAKER Note: Irma will engage in a plan of action to improve emotional and mental wellbeing. Goal Reviewed with: patient Readiness to change: Not yet ready to make a change Department associated with goal: [facility] BEHAVIORAL HEALTH SERVICES Steps to [...] documented as of this encounter Care Teams Lawn Mower Mechanic Relationship Specialty Start Date End Date Amaya Kowalski, MEGAN, DOUGLAS [address] [place] [address] PCP - General Advanced Practice Nurse 06/10/18 documented as of this encounter
--- OUTSIDE RECORDS SUMMARY | 2024-11-30 17:17 | XMS_ITS | Encounter Summary ---
Author Organization [facility] Address [address] [place] [address] Phone Care Team Providers Care Quality Management Coordinator Name Role Phone Amaya Kowalski APRN, MOLDING SANDER Primary Care Provider Reason for Visit * Reason Onset Date Comments Medication Refill 03/25/2022 Encounter Details Date Type Department Care Team (Late st Contact Info) Description 03/25/2022 Telephone [facility] [address] [place] [address] Amaya Kowalski APRN, MOLDING SANDER [address] [place] [address] Medication Refill Social History Tobacco Use Types [...] Telephone Encounter - Mohini Aguirre RN - 03/25/2022 2:33 PM CDT Patient notified that PCP will NOT be authorizing any extra fills. RX must be picked up. Verbalizedunderstanding. * Telephone Encounter - Annalise Glez MA - 03/25/2022 1:45 PM CDT Patient requesting a return call in regards to her Lorazepam 1 mg tabs . See previous messages She stated she does not get off work until after the office is closed. Patient is having a hard time getting there before you close to pick the script up. She stated she might be able to get off work early Wednesday if another employee can stay late . She would like to know if you would send an emergency fill to hold her over until Wednesday03/30/22 ? Patient would like a return call @[phone] documented in this encounter Plan of Treatment Upcoming Encounters Date Type Department Care Team (Late st Contact Info) Description 03/21/2025 4:30 PM CDT Office Visit [facility] - Primary Care - [place] [address] [place] [address] Shravan Burgos PAC [address] [place] [address] documented [...] HEALTH SERVICES Steps to achieve goal: 1. Iram will attend psychotherapy, at minimum twice a [...] documented as of this encounter Care Teams Quality Management Coordinator Relationship Specialty Start Date End Date Amaya Kowalski, PLYCOR OPERATOR, MOLDING SANDER [address] [place] [address] PCP - General Advanced Practice Nurse 06/10/18 documented as of this encounter
--- OUTSIDE RECORDS SUMMARY | 2024-11-30 17:17 | XMS_ITS | Encounter Summary ---
Author Organization [facility] Address [address] [place] [address] Phone Care Team Providers Care Shipper Name Role Phone Amaya Kowalski APRN, CNP Primary Care Provider Reason for Visit * Reason Comments Medication Refill Encounter Details Date Type Department Care Team ([facility] st Contact Info) Description 07/15/2022 Refill [facility] - Primary Care - [place] [address] [place] [phone] Clark Archibald MD [address] [place] [address] Medication Refill Social History Tobacco [...] Encounter - Amaya Kowalski APRN, CNP - 07/15/2022 1:32 PM CDT [place] Prescription Monitoring Site reviewed. * Telephone Encounter - Shena Romo RN - 07/15/2022 1:24 PM CDT Per [place] PDMP last fill date 06/09/22. documented in this encounter Plan of Treatment Upcoming Encounters Date Type Department Care Team (Late st Contact Info) Description 03/21/2025 4:30 PM CDT Office Visit [facility] - Primary Care - [place] [address] [place] [address] Shravan Burgos, PAPI [address] [place] [address] documented as of this encounter Goals Goal Patient Goal Type Associated Problems Recent Progress Patient-Stated? Author Behavioral Health Behavioral Health On track(2019 9:50 AM CDT) Yes Eloise Jenkins, DIRECTOR PUBLIC POLICY Note: Irma reported her goal for psychotherapy [...] track(2019 9:50 AM CDT) Eloise Mix DIRECTOR PUBLIC POLICY Note: Irma will engage in a plan [...] documented as of this encounter Care Teams Shipper Relationship Specialty Start Date End Date Amaya Kowalski, MEGAN, PRODUCTION POTTER [address] [place] [address] PCP - General Advanced Practice Nurse 06/10/18 documented as of this encounter
--- OUTSIDE RECORDS SUMMARY | 2024-11-30 17:17 | XMS_ITS | Encounter Summary ---
Author Organization [facility] Address [address] [place] [address] Phone Care Team Providers Care Magnetic Prospector Name Role Phone Amaya Kowalski APRN, CNP Primary Care Provider Reason for Visit * Reason Comments Medication Refill Encounter Details Date Type Department Care Team ([facility] st Contact Info) Description 06/05/2022 Refill [facility] - Primary Care - [place] [address] [place] [address] Amaya Kowalski APRN, PROCUREMENT DIRECTOR [address] [place] [address] Medication Refill Social History Tobacco [...] encounter Miscellaneous Notes * Telephone Encounter - Shakira John RN - 06/05/2022 1:45 PM CDT Patient notified of note below. Patient verbalized understanding and agrees. 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 No answer. Left voicemail. Order placed for UDS. * Telephone Encounter - Amaya Kowalski APRN, CNP - 06/05/2022 8:57 AM CDT [place] Prescription Monitoring Site reviewed. Need urine drug screen. * Telephone Encounter - Tavia Aguirre RN - 06/05/2022 8:52 AM CDT Medication failed the protocol, provider to review and approve the medication order if appropriate. Requested Prescriptions Pending Prescriptions Disp Refills LORazepam (ATIVAN) 1 MG Tablet [Pharmacy Med Name: LORAZEPAM 1 MG TABLET] 30 Tablet 0 Sig: TAKE 1 TABLET BY MOUTH TWICE A DAY NEEDED FOR ANXIETY Not Delegated - Benzodiazepines Protocol Failed - 06/05/2022 8:50 AM Failed - This refill cannot be delegated Passed - Visit with relevant provider in past 12 months or upcoming 90 days Recent Visits Date Type Provider Dept 08/08/21 Office Visit Amaya Kowalski, GLACING MACHINE TENDER, PROCUREMENT DIRECTOR [facility] Showing recent visits within past 365 days and meeting all other requirements Future Appointments No visits were found meeting these conditions. Showing future appointments within next 90 days and meeting all other requirements documented in this encounter Plan of Treatment Upcoming Encounters Date Type Department Care Team (Late st Contact Info) Description 03/21/2025 4:30 PM CDT Office Visit [facility] - Primary Care - [place] [address] [place] [address] Shravan Burgos PAC [address] [place] [address] documented as of this encounter [...] change Department associated with goal: [facility] Steps to [...] change Department associated with goal: [facility] Steps to [...] documented as of this encounter Care Teams Magnetic Prospector Relationship Specialty Start Date End Date Amaya Kowalski, GLACING MACHINE TENDER, PROCUREMENT DIRECTOR [address] [place] [address] PCP - General Advanced Practice Nurse 06/10/18 documented as of this encounter
--- OUTSIDE RECORDS SUMMARY | 2024-11-30 17:17 | XMS_ITS | Encounter Summary ---
Author Organization [facility] Address [address] [place] [address] Phone Care Team Providers Care Forestry Worker Name Role Phone Amaya Kowalski APRN, DOUGLAS Primary Care Provider Encounter Details Date Type Department Care Team ([facility] st Contact Info) Description 03/27/2022 3:20 PM CDT Lab [facility] - Primary Care - [address] [phone] Lab, [facility] Discharge Disposition: Discharged to home or Selfcare [...] encounter Progress Notes * Patti Weaver - 03/27/2022 3:20 PM CDT UDS Collected per Amaya Kowalski APN 03/27/2022 and Sent to [facility] documented in this encounter Plan of Treatment Upcoming Encounters Date Type Department Care Team (Late st Contact Info) Description 03/21/2025 4:30 PM CDT Office Visit [facility] - Primary Care - [place] [address] [place] [address] Shravan Burgos PAC [address] [place] [address] documented as of this encounter Goals Goal Patient Goal Type Associated Problems Recent Progress Patient-Stated? Author Behavioral Health Behavioral Health On track(2019 9:50 AM CDT) Yes Eloise Jenkins, [facility] Note: Irma reported her goal for psychotherapy is to help me be able to deal with things in the present and in her past that are contributing to low and anxious mood. Goal Reviewed with: patient Readiness to change: Thinking about making a change Department associated with goal: [facility] Steps to achieve goal: [...] track(2019 9:50 AM CDT) No Eloise Jenkins, CUSTOMER RESPONSE REPRESENTATIVE Note: Irma will engage in a plan of action to improve emotional and mental wellbeing. Goal Reviewed with: patient Readiness to change: Not yet ready to make a change Department associated with goal: [facility] Steps to achieve goal: [...] documented as of this encounter Care Teams Forestry Worker Relationship Specialty Start Date End Date Amaya Kowalski, OPERATIVE SUPERVISOR, PIERCING MILL OPERATOR [address] [place] [address] PCP - General Advanced Practice Nurse 06/10/18 documented as of this encounter
--- OUTSIDE RECORDS SUMMARY | 2024-11-30 17:17 | XMS_ITS | Encounter Summary ---
Author Organization [facility] Address [address] [place] [address] Phone Care Team Providers Care Tire Bagger Name Role Phone Amaya Kowalski APRN, PLANT FLOOR AUTOMATION MANAGER Primary Care Provider Reason for Visit * Reason Onset Date Comments Erroneous Encounter - Disregard 03/27/2022 Encounter Details Date Type Department Care Team (Late st Contact Info) Description 03/27/2022 Telephone [facility] [address] [place] [address] Amaya Kowalski, DESIGN CHECKER, PLANT FLOOR AUTOMATION MANAGER [address] [place] [address] Erroneous Encounter - Disregard Social History Tobacco Use Types Packs/Day Years [...] encounter Miscellaneous Notes * Telephone Encounter - Dilcia Cleary RN - 03/27/2022 5:20 PM CDT Error documented in this encounter Plan of Treatment Upcoming Encounters Date Type Department Care Team (Late st Contact Info) Description 03/21/2025 4:30 PM CDT Office Visit [facility] - Primary Care - [place] [address] [place] [address] Shravan Burgos, PAPI [address] [place] [address] documented as of this encounter Goals Goal Patient Goal Type Associated Problems Recent Progress Patient-Stated? Author Behavioral Health Behavioral Health On track(2019 9:50 AM CDT) Yes Eloise Jenkins, [facility] Note: Irma reported her goal for psychotherapy is to help me be able to deal with things in the present and in her past that are contributing to low and anxious mood. Goal Reviewed with: patient Readiness to change: Thinking about making a change Department associated with goal: [facility] Steps to [...] On track(2019 9:50 AM CDT) No Eloise Jenkisn, CHAD Note: Irma will engage in a plan of action to improve emotional and mental wellbeing. Goal Reviewed with: patient Readiness to change: Not yet ready to make a change Department associated with goal: [facility] Steps to [...] documented as of this encounter Care Teams Tire Bagger Relationship Specialty Start Date End Date Amaya Kowaslki, DESIGN CHECKER, PLANT FLOOR AUTOMATION MANAGER [address] [place] [address] PCP - General Advanced Practice Nurse 06/10/18 documented as of this encounter
--- OUTSIDE RECORDS SUMMARY | 2024-11-30 17:17 | XMS_ITS | Encounter Summary ---
Author Organization [facility] Address [address] [place] [address] Phone Care Team Providers Care Wall Attendant Name Role Phone Amaya Kowalski APRN, CNP Primary Care Provider Reason for Visit * Reason Onset Date Comments Results 04/02/2022 UDS Encounter Details Date Type Department Care Team ([facility] Contact Info) Description 04/02/2022 Telephone [facility] - Primary Care - [place] [address] [place] [address] Amaya Kowalski APRN, CNP [address] [place] [address] Results (UDS) Social History Tobacco [...] Encounter - Amaya Kowalski APRN, CNP - 04/02/2022 3:09 PM CDT Urine drug screen shows noncompliance lorazepam. Will retest in a couple months. No need to call patient. * Telephone Encounter - Mohini Aguirre RN - 04/02/2022 8:35 AM CDT Urine drug screen results received and placed in PCP inbox for review. documented in this encounter Plan of Treatment Upcoming Encounters Date Type Department Care Team (Late st Contact Info) Description 03/21/2025 4:30 PM CDT [facility] - Primary Care - [place] [address] [place] [address] Shravan Burgos PAC [address] [place] [address] documented as of this encounter [...] making a change Department associated with goal: [facility] Steps to achieve [...] track(2019 9:50 AM CDT) No Eloise Jenkins, PRINCIPAL SOLUTIONS ARCHITECT Note: Irma will engage in a plan of action to improve emotional and mental wellbeing. Goal Reviewed with: patient Readiness to change: Not yet ready to make a change Department associated with goal: [facility] Steps to achieve [...] documented as of this encounter Care Teams Wall Attendant Relationship Specialty Start Date End Date Amaya Kowalski, CIRCUIT WALKER, PLANT 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 [address] [place] [address] PCP - General Advanced Practice Nurse 06/10/18 documented as of this encounter
--- OUTSIDE RECORDS SUMMARY | 2024-11-30 17:18 | XMS_ITS | Encounter Summary ---
Author Organization [facility] Address [address] [place] [address] Phone Care Team Providers Care Flying Instructor Name Role Phone Amaya Kowalski APRN, CNP Primary Care Provider Reason for Visit * Reason Onset Date Comments Results 08/12/2021 X-ray Encounter Details Date Type Department Care Team ([facility] Contact Info) Description 08/12/2021 Telephone [facility] - Primary Care - [place] [address] [place] [address] Amaya Kowalski APRN, CNP [address] [place] [address] Results (X-ray) Social History Tobacco Use Types Packs/Day Years [...] Exposure Response Date Recorded In the last month, have you been in contact with someone who was confirmed or suspected to have Coronavirus / COVID-19? No / Unsure 08/08/2021 3:06 PM CDT documented as of this encounter Miscellaneous Notes * Addendum Note - Shahram Jacobs CMA - 11/12/2021 2:42 PM CSTAddended by: SHAHRAM JACOBS on: 11/12/2021 02:42 PM Modules accepted: Orders METER ENGINEER * Telephone Encounter - Mohini Aguirre RN - 08/12/2021 11:05 AM CDT My Chart message sent to patient. * Telephone Encounter - Amaya Kowalski APN, CNP - 08/12/2021 10:36 AM CDT PT order signed. * Telephone Encounter - Mohini Aguirre RN - 08/12/2021 9:51 AM CDT PT order pended for approval. * Telephone Encounter - Mohini Aguirre RN - 08/12/2021 9:13 AM CDT Results sent via my chart. * Telephone Encounter - Amaya Kowalski APN, CNP - 08/12/2021 9:10 AM CDT X-ray only shows scoliosis. Recommend physical therapy. * Telephone Encounter - Mohini Aguirre RN - 08/12/2021 9:07 AM CDT X-ray results received from [facility]. Placed in PCP inbox for review. documented in this encounter Plan of Treatment Upcoming Encounters Date Type Department Care Team (Late st Contact Info) Description 03/21/2025 4:30 PM CDT Office Visit [facility] - Primary Care - [place] [address] [place] [address] Shravan Burgos, PAPI [address] [place] [address] documented as of this encounter Goals Goal Patient Goal Type Associated Problems Recent Progress Patient-Stated? Author Behavioral Health Behavioral Health On track(2019 9:50 AM CDT) Yes Eloise Jenkins, [facility] Note: Irma reported her goal [...] On track(2019 9:50 AM CDT) Eloise Mix, APPRENTICE JOCKEY Note: Irma will engage in a plan [...] as of this encounter Visit Diagnoses Diagnosis Lumbar spine pain- Primary Lumbago documented in this encounter Additional Health Concerns Assessment Noted Time PHQ-9 Depression Total Score: 13 020 2:00 PM CDT documented as of this encounter Care Teams Flying Instructor Relationship Specialty Start Date End Date Amaya Kowalski, ELECTROSTATIC PAINT OPERATOR, CLAY MAKER [address] [place] [address] PCP - General Advanced Practice Nurse 06/10/18 documented as of this encounter
--- OUTSIDE RECORDS SUMMARY | 2024-11-30 17:18 | XMS_ITS | Encounter Summary ---
Author Organization [facility] Address [address] [place] [address] Phone Care Team Providers Care Superintendent Local Name Role Phone Amaya Kowalski APRN, CNP Primary Care Provider Reason for Visit * Reason Onset Date Comments Medication Refill 03/24/2022 Lorazepam Encounter Details Date Type Department Care Team (Late st Contact Info) Description 03/24/2022 Refill [facility] - Primary Care - [place] [address] [place] [address] Amaya Kowalski APRN, CNP [address] [place] [address] Medication Refill (Lorazepam) Social History Tobacco Use Types Packs/Day Years [...] Encounter - Dilcia Cleary RN - 03/27/2022 5:22 PM CDT S= Pharmacy needs clarification on Ativan order B= LORazepam (ATIVAN) 1 MG Tablet 30 Tablet 0 03/25/2022 Sig - Route: Take 1 Tablet by mouth 2 times daily as needed for Anxiety. - Oral Class: Normal Notes to Pharmacy: Not to exceed 3 additional fills before 07/08/2022 DX Code F41.9 Quantity thirty fill date 03/24/22 A= Order states Refills= 0 Notes to pharmcay= Not to exceed 3 additional refills before 07/08/22. R= Pharmacy asking if provider is wanting 0 or 3 refills? Please advise * Addendum Note - Mohini Aguirre RN - 03/25/2022 9:12 AM CDTAddended by: MOHINI AGUIRRE on: 03/25/2022 09:12 AM Modules accepted: Orders * Telephone Encounter - Mohini Aguirre RN - 03/25/2022 9:08 AM CDT Per verbal order of PCP, urine drug screen is needed. Order placed. Patient phoned to inform that prescription is ready for picked edge sewing machine operator. No answer. Left voicemail. * Telephone Encounter - Amaya Kowalski APRN, CNP - 03/25/2022 8:00 AM CDT [place] prescription monitoring site reviewed. Medication approved. * Telephone Encounter - Shena Romo RN - 03/24/2022 4:30 PM CDT Per [place] PDMP last fill date 01/09/22. * Telephone Encounter - Leona Rodas RN - 03/24/2022 4:26 PM CDT Received fax from [facility] requesting refill on Lorazepam 1mg tabs. Refill pended. documented in this encounter Plan of Treatment Upcoming Encounters Date Type Department Care Team (Late st Contact Info) Description 03/21/2025 4:30 PM CDT Office Visit [facility] - Primary Care - [place] [address] [place] [address] Shravan Burgos, PAPI [address] [place] [address] documented as of this encounter [...] change Department associated with goal: [facility] Steps [...] as of this encounter Care Teams Superintendent Local Relationship Specialty Start Date End Date Amaya Kowalski, DROP HAMMER OPERATOR HELPER, LINE BUILDER [address] [place] [address] PCP - General Advanced Practice Nurse 06/10/18 documented as of this encounter
--- OUTSIDE RECORDS SUMMARY | 2024-11-30 17:18 | XMS_ITS | Encounter Summary ---
Author Organization [facility] Address [address] [place] [address] Phone Care Team Providers Care Professor Of Economics Name Role Phone Amaya Kowalski APRN, DOUGLAS Primary Care Provider Reason for Visit * Reason Onset Date Comments Medication Refill 09/16/2021 Encounter Details Date Type Department Care Team (Late st Contact Info) Description 09/16/2021 [facility]ill [facility] [address] [place] [address] Amaya Kowalski APRN, MANAGER IN TRAINING [address] [place] [address] Medication Refill Social History Tobacco Use Types [...] Notes * Telephone Encounter - Amaya Kowalski APN, CNP - 09/17/2021 8:51 AM CDT [place] Prescription Monitoring Site reviewed. Medication approved. * Telephone Encounter - Michell Rowley RN - 09/16/2021 3:05 PM CDT Medication failed the protocol, provider to review and approve the medication order if appropriate. Requested Prescriptions Pending Prescriptions Disp Refills LORazepam (ATIVAN) 1 MG Tablet 30 Tablet 0 [facility]finch Not Delegated - Anesthesia: Anesthetics & Sedatives Failed - 09/16/2021 2:59 PM Failed - This refill cannot be delegated Passed - Valid encounter within last 6 months Past Office Visits Recent Outpatient Visits 1 month ago Back pain, unspecified back location, unspecified back pain laterality, unspecified chronicity [facility] Amaya Kowalski APN, DOUGLAS 1 year ago Injury of left foot, initial encounter [facility] Amaya Kowalski APN, DOUGLAS 1 year ago Moderate episode of recurrent major depressive disorder (HCC) [facility] - Amaya Yoder APN, DOUGLAS 2 years ago Anxiety [facility] - Amaya Yoder APN, CNP 2 years ago Chronic bronchitis with productive mucopurulent cough (HCC) [facility] [place] [facility] Upcoming Appointments TRUCK DESPATCHER - Recent and Past Visits Recent Visits Date Type Provider Dept 08/08/21 Office Visit Amaya Kowalski APN, DOUGLAS [facility] 07/26/20 Office Visit Amaya Kowalski APN MANAGER IN TRAINING [facility] [address] Showing recent visits within past 460 days with a meds authorizing provider and meeting all other requirements Future Appointments No visits were found meeting these conditions. Showing future appointments within next 90 days with a meds authorizing provider and meeting all other requirements documented in this encounter Plan of Treatment Upcoming Encounters Date Type Department Care Team (Late st Contact Info) Description 03/21/2025 4:30 PM CDT Office Visit [facility] - Primary Care - [place] [address] [place] [address] Shravan Burgos PAC [address] [place] [address] documented as of this encounter [...] a change Department associated with goal: [facility] Steps to achieve [...] a change Department associated with goal: [facility] Steps to achieve [...] documented as of this encounter Care Teams Professor Of Economics Relationship Specialty Start Date End Date Amaya Kowalski, STEEL POST INSTALLER, MANAGER IN TRAINING [address] [place] [address] PCP - General Advanced Practice Nurse 06/10/18 documented as of this encounter
--- OUTSIDE RECORDS SUMMARY | 2024-11-30 17:18 | XMS_ITS | Encounter Summary ---
Author Organization [facility] Address [address] [place] [address] Phone Care Team Providers Care Campus Rep Name Role Phone Amaya Kowalski APRN, CNP Primary Care Provider Reason for Visit * Reason Comments Medication Refill Encounter Details Date Type Department Care Team ([facility] st Contact Info) Description 12/04/2021 Refill [facility] - Primary Care - [place] [address] [place] [address] Amaya Kowalski APRN, MEDICAL RADIATION THERAPIST [address] [place] [address] Medication Refill Social History Tobacco [...] Encounter - Amaya Kowalski APRN, CNP - 12/05/2021 9:50 AM [employer] [place] Prescription Monitoring Site reviewed. Medication approved. [employer] * Telephone Encounter - Mohini Aguirre RN - 12/04/2021 2:24 PM [employer] Medication failed the protocol, provider to review and approve the medication order if appropriate. Requested Prescriptions Pending Prescriptions Disp Refills LORazepam (ATIVAN) 1 MG Tablet [Pharmacy Med Name: LORAZEPAM 1 MG TABLET] 30 Tablet 0 Sig: TAKE 1 TABLET BY MOUTH TWICE A DAY NEEDED FOR ANXIETY Not Delegated - Off Protocol Failed - 12/04/2021 2:19 PM Failed - This refill cannot be delegated Passed - Visit with relevant provider in past 12 months or upcoming 90 days Recent Visits Date Type Provider Dept 08/08/21 Office Visit Amaya Kowalski APRN, CNP [facility] Showing recent visits within past 365 days and meeting all other requirements Future Appointments No visits were found meeting these conditions. Showing future appointments within next 90 days and meeting all other requirements [employer] documented in this encounter Plan of Treatment Upcoming Encounters Date Type Department Care Team (Late st Contact Info) Description 03/21/2025 4:30 PM CDT Office Visit [facility] - Primary Care - [place] [address] [place] [address] Shravan Burgos, PAC [address] [place] [address] documented as of this encounter Goals Goal Patient Goal Type Associated Problems Recent Progress Patient-Stated? Author [facility] Behavioral Health On track(2019 9:50 [...] trigger mood concerns. Behavioral [facility] Behavioral Health On track(2019 9:50 [...] documented as of this encounter Care Teams Campus Rep Relationship Specialty Start Date End Date Amaya Kowalski, MARKET RESEARCH CONSULTANT, MEDICAL RADIATION THERAPIST [address] [place] [address] PCP - General Advanced Practice Nurse 06/10/18 documented as of this encounter
--- OUTSIDE RECORDS SUMMARY | 2024-11-30 17:18 | XMS_ITS | Encounter Summary ---
Author Organization [facility] Address [address] [place] [address] Phone Care Team Providers Care Hyperion Administrator Name Role Phone Amaya Kowalski APRN, CNP Primary Care Provider Reason for Visit * Reason Comments Medication Refill Encounter Details Date Type Department Care Team ([facility] Contact Info) Description 10/21/2021 Refill [facility] - Primary Care - [place] [address] [place] [address] Amaya Kowalski APRN, EROSION CONTROL SPECIALIST [address] [place] [address] Medication Refill Social History Tobacco [...] Telephone Encounter - Mohini Aguirre RN - 10/21/2021 9:08 AM DIRECTOR OF REIMBURSEMENT Medication failed the protocol, provider to review and approve the medication order if appropriate. Requested Prescriptions Pending Prescriptions Disp Refills albuterol 108 (90 Base) MCG/ACT Aerosol Solution [Pharmacy Med Name: ALBUTEROL HFA (PROVENTIL) INH] Sig: INHALE 1-2 PUFFS BY MOUTH EVERY 4 HOURS NEEDED FOR WHEEZING OR COUGH Short Acting Inhaled Beta-Agonists Protocol Passed - 10/21/2021 8:57 AM Passed - Visit with relevant provider in past 12 months or upcoming 90 days Recent Visits Date Type Provider Dept 08/08/21 Office Visit Amaya Kowalski APRN, CNP [facility] Showing recent visits within past 365 days and meeting all other requirements Future Appointments No visits were found meeting these conditions. Showing future appointments within next 90 days and meeting all other requirements LORazepam (ATIVAN) 1 MG Tablet [Pharmacy Med Name: LORAZEPAM 1 MG TABLET] 30 Tablet 0 Sig: TAKE 1 TABLET BY MOUTH TWICE A DAY NEEDED FOR ANXIETY healthfinch Not Delegated - Anesthesia: Anesthetics & Sedatives Failed - 10/21/2021 8:57 AM Failed - This refill cannot be delegated Passed - Valid encounter within last 6 months Past Office Visits Recent Outpatient Visits 2 months ago Back pain, unspecified back location, unspecified back pain laterality, unspecified chronicity [facility] Amaya Kowalski APRN, DOUGLAS 1 year ago Injury of left foot, initial encounter [facility] Amaya Kowalski APRN, DOUGLAS 1 year ago Moderate episode of recurrent major depressive disorder (HCC) [facility] Tobias APRN, CNP 2 years ago [facility], DOUGLAS 2 years ago Chronic bronchitis with productive mucopurulent cough (HCC) [facility] - Fox Conde PAC Upcoming Appointments PHLEBOTOMY SERVICES REPRESENTATIVE - Recent and Past Visits Recent Visits Date Type Provider Dept 08/08/21 Office Visit Amaya Kowalski APRN, EROSION CONTROL SPECIALIST [facility] [address] 07/26/20 Office Visit [facility]als[facility] APRN, CNP [facility] Showing recent visits within past 460 days with a meds authorizing provider and meeting all other requirements Future Appointments No visits were found meeting these conditions. Showing future appointments within next 90 days with a meds authorizing provider and meeting all other requirements CTOR OF REIMBURSEMENT documented in this encounter Plan of Treatment Upcoming Encounters Date Type Department Care Team (Late st Contact Info) Description 03/21/2025 4:30 PM CDT Office Visit [facility] - Primary Care - [place] [address] [place] [address] Shravan Burgos PAC [address] [place] [address] documented as of this encounter Goals Goal [...] making a change Department associated with goal: [facility] Steps to achieve [...] track(2019 9:50 AM CDT) No Eloise Jenkins, COMPENSATION SUPERVISOR Note: Irma will engage in a plan of action to improve emotional and mental wellbeing. Goal Reviewed with: patient Readiness to change: Not yet ready to make a change Department associated with goal: [facility] Steps to achieve [...] documented as of this encounter Care Teams Hyperion Administrator Relationship Specialty Start Date End Date Amaya Kowalski, DIDACTIC INSTRUCTOR, EROSION CONTROL SPECIALIST [address] [place] [address] PCP - General Advanced Practice Nurse 06/10/18 documented as of this encounter
--- OUTSIDE RECORDS SUMMARY | 2024-11-30 17:18 | XMS_ITS | Encounter Summary ---
Author Organization [facility] Address [address] [place] [address] Phone Care Team Providers Care Automatic Transmission Mechanic Name Role Phone Amaya Kowalski APRN, CNP Primary Care Provider Reason for Visit * Reason Comments Medication Refill Encounter Details Date Type Department Care Team ([facility] st Contact Info) Description 01/08/2022 Refill [facility] - Primary Care - [place] [address] [place] [address] Amaya Kowalski APRN, DISTRICT SALES MANAGER [address] [place] [address] Medication Refill Social History Tobacco [...] Encounter - Amaya Kowalski APRN, CNP - 01/09/2022 4:08 PM VENEER CLIPPER [place] prescription monitoring site reviewed. Medication approved. ER CLIPPER * Telephone Encounter - Mohini Aguirre RN - 01/08/2022 2:27 PM VENEER CLIPPER Medication failed the protocol, provider to review and approve the medication order if appropriate. Requested Prescriptions Pending Prescriptions Disp Refills LORazepam (ATIVAN) 1 MG Tablet [Pharmacy Med Name: LORAZEPAM 1 MG TABLET] 30 Tablet 0 Sig: TAKE 1 TABLET BY MOUTH TWICE A DAY NEEDED FOR ANXIETY Not Delegated - Off Protocol Failed - 01/08/2022 2:20 PM Failed - This refill cannot be delegated Passed - Visit with relevant provider in past 12 months or upcoming 90 days Recent Visits Date Type Provider Dept 08/08/21 Office Visit Amaya Kowalski APRN, CNP [facility] Showing recent visits within past 365 days and meeting all other requirements Future Appointments No visits were found meeting these conditions. Showing future appointments within next 90 days and meeting all other requirements ER CLIPPER documented in this encounter Plan of Treatment Upcoming Encounters Date Type Department Care Team (Late st Contact Info) Description 03/21/2025 4:30 PM CDT Office Visit [facility] - Primary Care - [place] [address] [place] [address] Shravan Burgos, PAC [address] [place] [address] documented as of this encounter Goals Goal Patient Goal Type Associated Problems Recent Progress Patient-Stated? Author [facility] On track(2019 9:50 AM CDT) Yes Eloise Jenkins LCPC Note: Irma reported her goal for psychotherapy is to help me be able to deal with things in the present and in her past that are contributing to low and anxious mood. Goal Reviewed with: patient Readiness to change: Thinking about making a change Department associated with goal: [facility] Steps [...] and past) that trigger mood concerns. Behavioral [facility] On track(2019 9:50 AM CDT) No Eloise Jenkins LCPC Note: Irma will engage in a plan of action to improve emotional and mental wellbeing. Goal Reviewed with: patient Readiness to change: Not yet ready to make a change Department associated with goal: [facility] Steps [...] documented as of this encounter Care Teams Automatic Transmission Mechanic Relationship Specialty Start Date End Date Amaya Kowalski, IN MOLD COATER, DISTRICT SALES MANAGER [address] [place] [address] PCP - General Advanced Practice Nurse 06/10/18 documented as of this encounter
--- OUTSIDE RECORDS SUMMARY | 2024-11-30 17:18 | XMS_ITS | Encounter Summary ---
Author Organization [facility] Address [address] [place] [address] Phone Care Team Providers Care Geospatial Technologist Name Role Phone Amaya Kowalski APRN, CNP Primary Care Provider Reason for Visit * Reason Comments Medication Refill Encounter Details Date Type Department Care Team ([facility] st Contact Info) Description 02/13/2022 Refill [facility] - Primary Care - [place] [address] [place] [address] Amaya Kowalski APRN, ASBESTOS MICROSCOPIST [address] [place] [address] Medication Refill Social History Tobacco [...] Telephone Encounter - Mohini Aguirre RN - 02/17/2022 9:19 AM CDT Rx printed. Per PCP request this was called to [facility] to [facility] filled. Original printed Rx was shredded as witnessed by Radha Rodas RN. * Telephone Encounter - Amaya Kowalski APRN, CNP - 02/17/2022 8:17 AM CDT [place] prescription monitoring site reviewed. Medication approved. * Telephone Encounter - Shena Romo RN - 02/13/2022 1:26 PM CDT Per [place] PDMP last fill date 01/09/22. documented in this encounter Plan of Treatment Upcoming Encounters Date Type Department Care Team (Late st Contact Info) Description 03/21/2025 4:30 PM CDT [facility] Visit [facility] - Primary Care - [place] [address] [place] [address] Shravan Burgos PAC [address] [place] [address] documented as of [...] making a change Department associated with goal: [facility] Steps to achieve [...] make a change Department associated with goal: [facility] Steps to achieve [...] documented as of this encounter Care Teams Geospatial Technologist Relationship Specialty Start Date End Date Amaya Kowalski, MONOMER RECOVERY OPERATOR, ASBESTOS MICROSCOPIST [address] [place] [address] PCP - General Advanced Practice Nurse 06/10/18 documented as of this encounter
--- OUTSIDE RECORDS SUMMARY | 2024-11-30 17:19 | XMS_ITS | Encounter Summary ---
Author Organization [facility] Address [address] [place] [address] Phone Care Team Providers Care Stain Applicator Name Role Phone Amaya Kowalski APRN, CNP Primary Care Provider Reason for Visit * Reason Onset Date Comments Form Completion 06/03/2021 [facility] Medical Repo rt Encounter Details Date Type Department Care Team (Late st Contact Info) Description 06/03/2021 Telephone [facility] - Primary Care - [place] [address] [place] [address] Amaya Kowalski APRN, CNP [address] [place] [address] Form Completion ([facility] Medical Report) Social History Tobacco Use Types Packs/Day Years [...] have Coronavirus / COVID-19? No / Unsure 2021 3:23 PM CDT documented as of this encounter Miscellaneous Notes * Telephone Encounter - Eva Greenwood RN - 06/04/2021 3:01 PM CDT Patient calling back about this paperwork as she is suppose to work tomorrow and needs this paperwork in order to do that. Spoke with RN via back line; confirmed it is in the PCP's inbox and will be completed as soon as possible. * Telephone Encounter - Mohini Aguirre RN - 06/03/2021 9:03 AM CDT Medical report received from [facility] for completion. Placed in PCP inbox. documented in this encounter Plan of Treatment Upcoming Encounters Date Type Department Care Team (Late st Contact Info) Description 03/21/2025 4:30 PM CDT Office Visit [facility] - Primary Care - [place] [address] [place] [address] Shravan Burgos [...] change Department associated with goal: [facility] Steps to achieve goal: [...] Health On track(2019 9:50 AM CDT) No Elosie Jenkins LCPC Note: Irma will engage in a plan of action to improve emotional and mental wellbeing. Goal Reviewed with: patient Readiness to change: Not yet ready to make a change Department associated with goal: [facility] Steps to achieve goal: [...] documented as of this encounter Care Teams Stain Applicator Relationship Specialty Start Date End Date Amaya Kowalski, DISTRICT COMMERCIAL SUPERINTENDENT, LAB SYSTEMS ANALYST [address] [place] [address] PCP - General Advanced Practice Nurse 06/10/18 documented as of this encounter
--- OUTSIDE RECORDS SUMMARY | 2024-11-30 17:19 | XMS_ITS | Encounter Summary ---
Author Organization [facility] Address [address] [place] [address] Phone Care Team Providers Care Parts Driver Name Role Phone Amaya Kowalski APRN, CNP Primary Care Provider Reason for Visit * Reason Onset Date Comments Results 05/26/2021 Urine Drug Scree n Encounter Details Date Type Department Care Team ([facility] Contact Info) Description 05/26/2021 Telephone [facility] - Primary Care - [place] [address] [place] [address] Amaya Kowalski APRN, CNP [address] [place] [address] Results (Urine Drug Screen) Social History Tobacco Use Types Packs/Day Years [...] encounter Miscellaneous Notes * Telephone Encounter - Fox Jesus PAC - 05/26/2021 12:37 PM CDT UDS consistent. Placed in PCP box. * Telephone Encounter - Mohini Aguirre RN - 05/26/2021 8:37 AM CDT Urine drug screen results received and placed in [facility] [place], inbox. documented in this encounter Plan of Treatment Upcoming Encounters Date Type Department Care Team (Late st Contact Info) Description 03/21/2025 4:30 PM CDT Office Visit [facility] - Primary Care - [place] [address] [place] [address] Shravan Burgos PAC [address] [place] [address] documented as of this encounter Goals Goal [...] track(2019 9:50 AM CDT) No Eloise Jenkins, [facility] Note: Irma will engage in a [...] documented as of this encounter Care Teams Parts Driver Relationship Specialty Start Date End Date Amaya Kowalski, MECHANICAL TECHNICIAN, FLORAL MANAGER [address] [place] [address] PCP - General Advanced Practice Nurse 06/10/18 documented as of this encounter
--- OUTSIDE RECORDS SUMMARY | 2024-11-30 17:19 | XMS_ITS | Encounter Summary ---
Author Organization [facility] Address [address] [place] [address] Phone Care Team Providers Care Traffic Engineering Director Name Role Phone Amaya Kowalski APRN, DOUGLAS Primary Care Provider Reason for Visit * Reason Comments Medication Refill Encounter Details Date Type Department Care Team (Late st Contact Info) Description 08/05/2021 Refill [facility] - [place] [address] [place] [address] Amaya Kowalski APRN, HOUSE SITTER [address] [place] [address] Medication Refill Social History Tobacco [...] Encounter - Amaya Kowalski APN, CNP - 08/06/2021 11:18 AM CDT [place] prescription monitoring site reviewed. Medication approved. * Telephone Encounter - Shena Romo RN - 08/05/2021 3:07 PM CDT Medication failed the protocol, provider to review and approve the medication order if appropriate. Requested Prescriptions Pending Prescriptions Disp Refills LORazepam (ATIVAN) 1 MG Tablet [Pharmacy Med Name: LORAZEPAM 1 MG TABLET] 30 Tablet 0 Sig: TAKE ONE-HALF TABLET BY MOUTH TWICE DAILY NEEDED FOR ANXIETY FOR UP TO THIRTY DAYS There is no refill protocol information for this order documented in this encounter Plan of Treatment Upcoming Encounters Date Type Department Care Team (Late st Contact Info) Description 03/21/2025 4:30 PM CDT Office Visit [facility] - Primary Care - [place] [address] [place] [address] Shravan Burgos PAC [address] [place] [address] documented as of this encounter [...] making a change Department associated with goal: [facility] Steps to [...] track(2019 9:50 AM CDT) No Eloise Jenkins, CANE FEEDER Note: Irma will engage in a plan of action to improve emotional and mental wellbeing. Goal Reviewed with: patient Readiness to change: Not yet ready to make a change Department associated with goal: [facility] Steps to [...] as of this encounter Visit Diagnoses Diagnosis Anxiety- Primary Anxiety state, unspecified documented in this encounter Additional Health Concerns Assessment Noted Time PHQ-9 Depression Total Score: 13 04/16/ 020 2:00 PM CDT documented as of this encounter Care Teams Traffic Engineering Director Relationship Specialty Start Date End Date Amaya Kowalski, WARRANTY MANAGER, HOUSE SITTER [address] [place] [place] [address] PCP - General Advanced Practice Nurse 06/10/18 documented as of this encounter
--- OUTSIDE RECORDS SUMMARY | 2024-11-30 17:19 | XMS_ITS | Encounter Summary ---
Author Organization [facility] Address [address] [place] [address] Phone Care Team Providers Care Restaurant District Manager Name Role Phone Amaya Kowalski APRN, CNP Primary Care Provider Reason for Visit * Reason Comments Back Pain right side of back// pain when she sneezed Encounter Details Date Type Department Care Team (Late st Contact Info) Description 08/08/2021 4:15 PM CDT Office Visit [facility] - Primary Care - [place] [address] [place] [address] Amaya Kowalski APRN, CNP [address] [place] [address] Back pain, unspecified back location, unspecified back pain laterality, unspecified chronicity (Primary Dx) Discharge Disposition: Discharged to home or Selfcare Social History Tobacco Use Types Packs/Day Years Used Date Smoking Tobacco: Some Days Cigarettes Smokeless Tobacco: Never Tobacco Cessation:Ready to Q uit: Yes; Counseling Given: Yes Comments:Pt has multiple days in a row [...] Sign Reading Time Taken Comments Blood Pressure 128/88 08/08/2021 4:12 PM CDT Pulse 80 08/08/2021 4:12 PM CDT Temperature 36.6 ??C (97.9 ??F) 08/08/2021 4:12 PM CD T Respiratory Rate 18 08/08/2021 4:12 PM CDT Oxygen Saturation 98% 08/08/2021 4:12 PM CDT Inhaled Oxygen Concentration - - Weight 62.7 kg (138 lb 3.2 oz) 08/08/2021 4:12 P M CDT Height 160 cm (5' 3 ) 08/08/2021 4:12 PM CDT Body Mass Index 24.48 08/08/2021 4:12 PM CDT documented in this encounter Patient Instructions * Patient Instructions* Jo Sorenson, RMA - 08/08/2021 4:15 PM CDT Images from the original note were not included. Over the counter aleve (generic) 2 tabs am and pm x 3-5 days, take with food Alternate heat and ice (20 mins each) up to 4 x day- Stretches Flexeril up to 3x/day (caution with drowsiness) If not improving let me know and will refer to physical therapy Pneumonia is a serious lung infection that [...] Primary Care Physician???s office or your localpharmacy. Health Effects of Smoking Smoking damages almost every organ in your body. This includes your heart, lungs, and brain. It also affects your bones and raises your risk for certain cancers. These are all good reasons to quit. How smoking affects your body Chemicals in tobacco damage the DNA of cells. DNA controls normal cell function. As a result, normal cell growth and development are changed. This can result in abnormal cells that cause cancerous tumors to grow. Smoking has been linked with many serious illnesses. It also increases signs of aging.A few of the health effects of smoking are listed below. Smoking can: ?? Raise your risk for many types of cancer. This includes cancer of the mouth, esophagus, lung, larynx, and windpipe (trachea). It can also increase the risk for stomach, pancreas, bladder, blood (acute myeloid leukemia), liver, kidney, and cervical cancer. Smokeless tobacco can cause cancers of the mouth, throat, esophagus, and pancreas. ?? Harm your lungs and cause problems with breathing. This includes emphysema and COPD (chronic obstructive pulmonary disease). ?? Raise blood pressure. This raises your risk for heart attack or stroke. ?? Reduce blood flow. This can slow healing and cause wrinkles. ?? Cause plaque to build up in your arteries (atherosclerosis). This can lead to heart attacks and strokes. ?? Increase your risk for bone problems, including bone thinning (osteoporosis). Smoking can also lead to poor bone healing if you ever have a broken bone or bone surgery. ?? In women, cause bleeding problems, miscarriage, stillbirth, or defects ?? In men, cause problems with erections What happens when you smoke? When you smoke, your breathing becomes shallow. Your lungs fill with smoke. Smoking cigarettes alsofills your body with chemicals, such as nicotine and tar. Here???s how these things affect your body: ?? Smoke. Cigarette smoke contains carbon monoxide. This gas takes the place of oxygen in your blood. ?? Nicotine. This drug raises your blood pressure and heart rate. It reduces blood flow to your arms and legs. And it slows digestion. ?? Tar. Tar is what???s left after tobacco is smoked. This sticky brown material gums up your lungs. This causes less oxygen to get into your bloodstream. ?? Other chemicals. Cigarette smoke contains more than 4,000 other chemicals. They include formaldehyde, arsenic, and lead. Dozens of these chemicals are known to cause cancer. To learn more ?? CDC, www.cdc.gov/tobacco/quit_smoking/, 511-RAPW-OBA (003-957-2060) ?? Smokefree.gov, www.smokefree.gov, 199-36L-UGMY (487-114-8552) ?? [place] [employer], www.lung.org/stop-smoking/, 800-LUNGUSA (572-147-9178) Pressable last reviewed this educational content on 03/29/2020 ?? 7412-0175 [employer], [employer]. All rights reserved. This information is not intended as a substitute for professional medical care. Always follow your healthcare professional's instructions. documented in this encounter Progress Notes * Jo Sorenson RMA - 08/08/2021 4:15 PM CDT Irma L Seymour was provided education materials regarding smoking cessation as noted on the After Visit Summary. Counseling Given and Ready to Quit Calix are updated in the Social History. Irma Emory Seymour, 41 y.o., female is here for Back Pain (right side of back//pain when she sneezed) Medication Refills: Patient reports/denies need for medication refills. Orders Pended: no Requested Prescriptions No prescriptions requested or ordered in this encounter Home Medications Medication Sig Start Date End Date Taking? Authorizing Provider albuterol 108 (90 Base) MCG/ACT Aerosol Solution INHALE 1-2 PUFFS BY MOUTH EVERY 4 HOURS NEEDED FOR WHEEZING OR COUGH 03/14/21 Yes Amaya Kowalski APN, HR BUSINESS PARTNER ibuprofen (MOTRIN) 200 MG Tablet Take 3 Tabs by mouth every 6 hours as needed for Fever. 12/26/18 Ti Ma, PAPI ipratropium-albuterol (DUO-NEB) 0.5-2.5 (3) MG/3ML Solution 3 mL by Nebulization route 4 times daily. 04/05/20 Yes Amaya Kowalski APN, CNP LORazepam (ATIVAN) 1 MG Tablet TAKE ONE-HALF TABLET BY MOUTH TWICE DAILY NEEDED FOR ANXIETY FOR UP TO THIRTY DAYS 08/06/21 Yes Amaya Kowalski APN, CNP Respiratory Therapy Supplies (NEBULIZER) Device Use 4x/day prn. 02/14/19 Amaya Kowalski APN, CNP Respiratory Therapy Supplies (NEBULIZER/TUBING/MOUTHPIECE) Kit Use 4 times daily prn 02/16/19 Amaya Kowalski APN, CNP Symbicort 160-4.5 MCG/ACT Aerosol INHALE TWO PUFFS BY MOUTH TWO TIMES A DAY 06/18/21 Yes Amaya Kowalski APN, CNP There are no discontinued medications. I [...] Due ??? Pneumococcal Immunization (0-64 years) (1 of 2 - PPSV23) Never done ??? DTaP/Tdap/Td Immunization (1 - Tdap) Never done ??? SARS-COV-2 Immunization (1) Never done ??? Pap Smear Never done ??? Influenza Immunization (1) 07/30/2021 Orders Pended: no The following BPA's have been addressed with the patient today: Flu, TDAP, Pneumonia and Pap * Amaya Kowalski APN, CNP - 08/08/2021 4:15 PM CDT Subjective: Patient presents with back pain it has been going several days she states that she was sitting kindof slumped forward and the pain just started. She has had no known injuries. It is lower back rightside with some radiation down the right leg at times. No changes in bowel or bladder function. She did have a not at 1 time on that side and orthopedic told her that she had a disc that it slipped into a rib. She was doing physical therapy and ran out of visits and that retired. She has been doing ice alternating with heat and ibuprofen without much relief. Review of Systems Constitutional: Negative for fever. HENT: Negative. Respiratory: Negative for cough and shortness of breath. Cardiovascular: Negative for chest pain and palpitations. Gastrointestinal: Negative for constipation, diarrhea, nausea and vomiting. Genitourinary: Negative. Musculoskeletal: Positive for back pain (lower, right side, radiates down right leg at times). Neurological: Negative for dizziness and headaches. Psychiatric/Behavioral: Negative. Objective: Physical Exam Vitals and nursing note reviewed. Constitutional: Appearance: Normal appearance. HENT: Head: Normocephalic and atraumatic. Cardiovascular: Rate and Rhythm: Normal rate and regular rhythm. Pulses: Normal pulses. Heart sounds: Normal heart sounds. Pulmonary: Effort: Pulmonary effort is normal. Breath sounds: Normal breath sounds. Musculoskeletal: Cervical back: Normal and normal range of motion. Thoracic back: Normal. Lumbar back: Spasms present. Decreased range of motion. Skin: General: Skin is warm and dry. Neurological: Mental Status: She is alert and oriented to person, place, and time. Deep Tendon Reflexes: Reflexes normal. Psychiatric: Mood and Affect: Mood normal. BP 128/88 Pulse 80 Temp 97.9 ??F (36.6 ??C) (Temporal) Resp 18 Ht 5' 3 (1.6 m) Wt 138 lb3.2 oz (62.7 kg) SpO2 98% BMI 24.48 kg/m?? Assessment and Plan See Diagnoses, Orders, Follow-up, and Instructions Encounter Diagnosis Name Primary? Back pain, unspecified back location, unspecified back pain laterality, unspecified chronicity Yes Over the counter aleve (generic) 2 tabs am and pm x 3-5 days, take with food Alternate heat and ice (20 mins each) up to 4 x day- Stretches Flexeril up to 3x/day (caution with drowsiness) If not improving let me know and will refer to physical therapy Documentation for this visit on 08/08/2021 was completed using a template. I have seen and examinedthe patient. Everything documented was personally performed at this visit with the necessary additions, deletions and changes made as appropriate. documented in this encounter Plan of Treatment Upcoming Encounters Date Type Department Care Team (Late st Contact Info) Description 03/21/2025 4:30 PM CDT Office Visit [facility] - Primary Care - [place] [address] [place] [address] Shravan Burgos PAC [address] [place] [address] documented as of this encounter [...] Comments POCT UA AUTOMATED W/O MICRO Routine 08/08/2021 4:15 PM CDT Back pain, unspecified back location, unspecified back pain laterality, unspecified chronicity documented in this encounter Results * POCT UA AUTOMATED W/O MICRO (08/08/2021 4:15 PM CDT) POC UA SPECIFIC GRAVITY 1.025 URINE PH 5.0 5.0 - 9.0 UR, LEUKOCYTES Negative Negative Eunice/uL UR, NITRITE Negative Negative UR, PROTEIN Negative Negative mg/dL UR, GLUCOSE Normal Normal mg/dL UR, KETONE Negative Negative mg/dL UR, UROBILINOGEN Normal Normal mg/dL UR, BILIRUBIN Negative Negative mg/dL UR. BLOOD Negative Negative URINALYSIS COLOR Yellow URINALYSIS CLARITY Clear Urine 08/08/2021 4:15 PM CDT Amaya Kowalski APRN, CNP POINT OF CARE TESTING ( MANUAL) Final Result documented in this encounter Visit Diagnoses Diagnosis Back pain, unspecified back location, unspecified back pain laterality, unspecified chronicity- Primary documented in this encounter Additional Health Concerns Assessment Noted Time PHQ-9 Depression Total Score: 13 020 2:00 PM CDT documented as of this encounter Care Teams Restaurant District Manager Relationship Specialty Start Date End Date Amaya Kowalski APRN, HR BUSINESS PARTNER [address] [place] [address] PCP - General Advanced Practice Nurse 06/10/18 documented as of this encounter
--- OUTSIDE RECORDS SUMMARY | 2024-11-30 17:19 | XMS_ITS | Encounter Summary ---
Author Organization [employer] Care Team Providers Care Size Cutter Name Role Phone Amaya Kowalski APRN, PRESSER AND SHAPER KNITTED GOODS Primary Care Provider Encounter Details Date Type Department Care Team (Latest Contact Info) Description 08/08/2021 Travel Social History Tobacco Use Types Packs/Day [...] Description 03/21/2025 4:30 PM CDT Office Visit [facility] - Primary Care - [place] [address] [place] [address] Shravan Burgos, PAC [address] [place] [address] documented as of this encounter Goals Goal Patient Goal Type Associated Problems Recent Progress Patient-Stated? Author [facility] Health On track(2019 9:50 AM CDT) Yes Eloise Jenkins LCPC Note: Irma reported her goal for psychotherapy is to help me be able to deal with things in the present and in her past that are contributing to low and anxious mood. Goal Reviewed with: patient Readiness to change: Thinking about making a change Department associated with goal: [facility] Steps to achieve goal: 1. Irma will attend psychotherapy, at minimum twice a month. 2. Irma will identify and explore atleast three incidents/experiences of current stressors, past trauma and family dynamics that contribute to her mood concerns. 3. Irma will identify at least three ways/skills to heal and cope with the experiences (current and past) that trigger mood concerns. Behavioral [facility] Health On track(2019 9:50 AM CDT) No Eloise Jenkins LCPC Note: Irma will engage in a plan of action to improve emotional and mental wellbeing. Goal Reviewed with: patient Readiness to change: Not yet ready to make a change Department associated with goal: [facility] Steps to achieve goal: [...] documented as of this encounter Care Teams Size Cutter Relationship Specialty Start Date End Date Amaya Kowalski APRN, PRESSER AND SH[employer] GOODS [address] [place] [address] PCP - General Advanced Practice Nurse 06/10/18 documented as of this encounter
--- OUTSIDE RECORDS SUMMARY | 2024-11-30 17:19 | XMS_ITS | Encounter Summary ---
Author Organization [facility] Address [address] [place] [address] Phone Care Team Providers Care Pens And Pencils Dipper Name Role Phone Amaya Kowalski APRN, CERTIFIED TECHNICIAN Primary Care Provider Reason for Visit * Reason Onset Date Comments COVID-19 07/03/2021 Encounter Details Date Type Department Care Team (Late st Contact Info) Description 07/03/2021 Nurse Triage [facility] [address] [place] [id number] Amaya Kowalski, SOFT WORK WRAPPER EXAMINER, CERTIFIED TECHNICIAN [address] [place] [address] COVID-19 Social History Tobacco Use Types Packs/Day [...] Telephone Encounter - Shakira John RN - 07/03/2021 11:35 AM CDT SITUATION: Uncontrollable cough BACKGROUND: COVID 06/26. First symptoms not sure because of working a lot of hours. Patient wanting to go back to work on Wednesday. 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 ASSESSMENT: Symptom Description / Location: Coughing while on the call. Productive cough in the morning. SOB started next day after diagnosis and worsening, patients states she is fatigued and sleeping longer than usual. Patient states she has some body aches to shoulder and neck. Patient coughing during this call, cough sounds deep and harsh. Patient sounds slightly winded after cough. States she get occasio nicola light headed after a coughing spell. Pain (0-10): Did not rate. Temp: Denies fever. Treatment / Response: Patient states she has been resting. Patient states she has taken [id number] for cough. Patient has not used the nebulizer. No humidifier. RECOMMENDATION: Patient advised to go to ED. Patient verbalized she will go. Patient worried about her return to work letter. Assured her it would be done when she has clearance from PCP. See care advice and disposition for Guideline First positive answer recorded, all responses to prior questions were negative. If symptoms increase, change or if new symptoms develop, call your HCP or call back. Recommendations were based on caller information and is not a diagnosis. Verified and reviewed all triage information with caller. Reason for Disposition ? ? MILD difficulty breathing (e.g., minimal/no SOB at rest, SOB with walking, pulse <100) Protocols used: CORONAVIRUS (COVID-19) DIAGNOSED OR [id number] documented in this encounter Plan of Treatment Upcoming Encounters Date Type Department Care Team (Late st Contact Info) Description 03/21/2025 4:30 PM CDT Office Visit [facility] - Primary Care - [place] [address] [place] [address] Shravan Burgos, PAPI [address] [place] [address] documented as of this encounter Goals Goal Patient Goal Type Associated Problems Recent Progress Patient-Stated? Author Behavioral [facility] Health On track(2019 9:50 AM CDT) Yes Eloise Jenkins LCPC Note: Irma reported her goal for psychotherapy is to help me be able to deal with things in the present and in her past that are contributing to low and anxious mood. Goal Reviewed with: patient Readiness to change: Thinking about making a change Department associated with goal: [facility] Steps to achieve [...] that trigger mood concerns. Behavioral [facility] Behavioral Health On track(2019 9:50 AM CDT) No Eloise Jenkins LCPC Note: Irma will engage in a plan of action to improve emotional and mental wellbeing. Goal Reviewed with: patient Readiness to change: Not yet ready to make a change Department associated with goal: [facility] Steps to achieve [...] documented as of this encounter Care Teams Pens And Pencils Dipper Relationship Specialty Start Date End Date Amaya Kowalski, SOFT WORK WRAPPER EXAMINER, CERTIFIED TECHNICIAN [address] [place] [address] PCP - General Advanced Practice Nurse 06/10/18 documented as of this encounter
--- OUTSIDE RECORDS SUMMARY | 2024-11-30 17:19 | XMS_ITS | Encounter Summary ---
Author Organization [employer] Care Team Providers Care Sheet Metal Duct Installer Name Role Phone Amaya Kowalski APRN, INSIDE PLANT SUPERVISOR Primary Care Provider Encounter Details Date Type Department Care Team (Latest Contact Info) Description 2021 Travel Social History Tobacco Use Types Packs/Day [...] Description 03/21/2025 4:30 PM CDT Office Visit [facility] - Primary Care - [place] [address] [place] [address] Shravan Burgos, PAC [address] [place] [address] documented as of this encounter Goals Goal Patient Goal Type Associated Problems Recent Progress Patient-Stated? Author [facility] Health On track(2019 9:50 AM CDT) [...] that trigger mood concerns. Behavioral [facility] Behavioral Health [...] documented as of this encounter Care Teams Sheet Metal Duct Installer Relationship Specialty Start Date End Date Amaya Kowalski APRN, INSIDE PLANT SUPERVISOR [address] [place] [address] PCP - General Advanced Practice Nurse 06/10/18 documented as of this encounter
--- OUTSIDE RECORDS SUMMARY | 2024-11-30 17:19 | XMS_ITS | Encounter Summary ---
Author Organization [facility] Address [address] [place] [address] Phone Care Team Providers Care Space Planner Name Role Phone Amaya Kowalski APRN, CNP Primary Care Provider Reason for Visit * Reason Comments Medication Refill Encounter Details Date Type Department Care Team ([facility] st Contact Info) Description 04/11/2021 Refill [facility] - Primary Care - [place] [address] [place] [address] Amaya Kowalski APRN, LYE BOILER [address] [place] [address] Medication Refill Social History Tobacco [...] Encounter - Amaya Kowalski APN, CNP - 04/14/2021 8:30 AM CDT [place] prescription monitoring site reviewed medication approved. * Telephone Encounter - Shena Romo RN - 04/11/2021 4:15 PM CDT [place] last fill date 03/14/21 Medication failed the protocol, provider to review and approve the medication order if appropriate. Requested Prescriptions Pending Prescriptions Disp Refills LORazepam (ATIVAN) 1 MG Tablet [Pharmacy Med Name: LORAZEPAM 1 MG TABLET] 30 Tablet Sig: TAKE ONE-HALF TABLET BY MOUTH TWICE DAILY NEEDED FOR ANXIETY FOR UP TO 30 DAYS [facility] Not Delegated - Anesthesia: Anesthetics & Sedatives Failed - 04/11/2021 4:15 PM Failed - Valid encounter within last 6 months Past Office Visits Recent Outpatient Visits 8 months ago Injury of left foot, initial encounter [facility] Amaya Kowalski APN, CNP 1 year ago Moderate episode of recurrent major depressive disorder (HCC) [facility] - Amaya Yoder APN, CNP 1 year ago Anxiety [facility] - Amaya Yoder APN, CNP 2 years ago Chronic bronchitis with productive mucopurulent cough (HCC) [facility] - Fox Conde PAC 2 years ago Chronic bronchitis, unspecified chronic bronchitis type (HCC) [facility] - Amaya Yoder APN, CNP Upcoming Appointments 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 Showing future appointments within next 90 days with a meds authorizing provider and meeting all other requirements Failed - This refill cannot be delegated documented in this encounter Plan of Treatment Upcoming Encounters Date Type Department Care Team (Late st Contact Info) Description 03/21/2025 4:30 PM CDT Office Visit [facility] - Primary Care - [place] [address] [place] [address] Shravan Burgos PAC [address] [place] [address] documented as of this encounter [...] documented as of this encounter Care Teams Space Planner Relationship Specialty Start Date End Date Amaya Kowalski, GENERAL INTERNIST AND PHYSICIAN LEADER, LYE BOILER [address] [place] [address] PCP - General Advanced Practice Nurse 06/10/18 documented as of this encounter
--- OUTSIDE RECORDS SUMMARY | 2024-11-30 17:19 | XMS_ITS | Encounter Summary ---
Author Organization [facility] Address [address] [place] [address] Phone Care Team Providers Care Food Specialist Name Role Phone Amaya Kowalski APRN, DOUGLAS Primary Care Provider Reason for Visit * Reason Comments Medication Refill Encounter Details Date Type Department Care Team ([facility] Contact Info) Description 06/18/2021 Refill [facility] - [place] [address] [place] [address] Amaya Kowalski APRN, INDIRECT FIRE INFANTRYMAN [address] [place] [address] Medication Refill Social History Tobacco [...] Telephone Encounter - Shena Romo RN - 06/18/2021 9:11 AM CDT Medication approved and signed per standing order protocol. documented in this encounter Plan of Treatment Upcoming Encounters Date Type Department Care Team (Late st Contact Info) Description 03/21/2025 4:30 PM CDT Office Visit [facility] - Primary Care - [place] [address] [place] [address] Shravan Burgos, PAPI [address] [place] [address] documented as of this encounter Goals Goal Patient Goal Type Associated Problems Recent Progress Patient-Stated? Author Behavioral Health Behavioral Health On track(2019 9:50 AM CDT) Yes Eloise Jenkins, [facility] Note: Irma reported her goal for [...] as of this encounter Care Teams Food Specialist Relationship Specialty Start Date End Date Amaya Kowalski, 2ND GRADE TEACHER, INDIRECT FIRE INFANTRYMAN [address] [place] [address] PCP - General Advanced Practice Nurse 06/10/18 documented as of this encounter
--- OUTSIDE RECORDS SUMMARY | 2024-11-30 17:19 | XMS_ITS | Encounter Summary ---
Author Organization [facility] Address [address] [place] [address] Phone Care Team Providers Care Director Of Informatics Name Role Phone Amaya Kowalski APRN, DOUGLAS Primary Care Provider Encounter Details Date Type Department Care Team ([facility] st Contact Info) Description 2021 3:40 PM CDT Lab [facility] - Primary Care - [address] [address] Lab, [facility] Discharge Disposition: Discharged to home or [...] as of this encounter Progress Notes * Cristin Tolentino RMA - 2021 3:40 PM CDT Urine sent to [facility] Script given documented in this encounter Plan of Treatment Upcoming Encounters Date Type Department Care Team (Late st Contact Info) Description 03/21/2025 4:30 PM CDT Office Visit [facility] - Primary Care - [place] [address] [place] [address] Shravan Burgos, PAPI [address] [place] [address] documented as of this encounter [...] On track(2019 9:50 AM CDT) Eloise Mix, [facility] Note: Irma will engage in a [...] documented as of this encounter Care Teams Director Of Informatics Relationship Specialty Start Date End Date Amaya Kowalski, SOFTWARE DEVELOPER MID LEVEL, DAY HAUL OR FARM CHARTER BUS DRIVER [address] [place] [address] PCP - General Advanced Practice Nurse 06/10/18 documented as of this encounter
--- OUTSIDE RECORDS SUMMARY | 2024-11-30 17:19 | XMS_ITS | Encounter Summary ---
Author Organization [facility] Address [address] [place] [address] Phone Care Team Providers Care Automotive Service Technician Name Role Phone Amaya Kowalski APRN, CNP Primary Care Provider Reason for Visit * Reason Onset Date Comments Back Pain 08/07/2021 Encounter Details Date Type Department Care Team (Late st Contact Info) Description 08/07/2021 Nurse Triage [facility] - Primary Care - [place] [address] [place] [address] Amaya Kowalski APRN, WINDOW SHADE CUTTER AND MOUNTER [address] [place] [address] Back Pain Social History Tobacco Use Types Packs/Day [...] Notes * Addendum Note - Melonie Garcia CMA - 09/09/2021 8:11 AM CDTAddended by: MELONIE GARCIA on: 09/09/2021 08:11 AM Modules accepted: Orders * Addendum Note - Mohini Aguirre RN - 08/11/2021 11:08 AM CDTAddended by: MOHINI AGUIRRE on: 08/11/2021 11:08 AM Modules accepted: Orders * Telephone Encounter - Mohini Aguirre RN - 08/11/2021 11:06 AM CDT Per PCP verbal order, patient is to have a lumbar spine x-ray. [facility]. Also per PCP, will need the x-ray results prior to ordering an MRI. My Chart message sent to patient. * Telephone Encounter - Marian Haskins RN - 08/08/2021 2:59 PM CDT Patient calling back to follow up on response to [employer] message. Advised her of provider's response. Wanted to report that she had a worsening of her pain that dropped her to her knees and was wanting to be seen SITUATION: See mychart message. Back pain BACKGROUND: Scoliosis; denies significant back pains ASSESSMENT: Symptom Description / Location: Started about a week ago (last ) Right lower back Any sudden movement causing shooting pain into her side Last night had a really bad episode after she got off work last night, after she had sent the [employer] message, woke her up at 1 am from sleep Called into work today Pain (0-10): 5-10/10, muscle spasms Temp: denies Treatment / Response: topicals, heating pad LMP: IUD / : denies RECOMMENDATION: See care advice and disposition for Guideline First positive answer recorded, all responses to prior questions were negative. If symptoms increase, change or if new symptoms develop, call your HCP or call back. Recommendations were based on caller information and is not a diagnosis. Verified and reviewed all triage information with caller. Reason for Disposition ? ? MODERATE back pain (e.g., interferes with normal activities) and present > 3 days Protocols used: BACK PAIN-A-OH Because of worsening pain and patient needing an excuse for work, scheduled to be seen in the office today with Amaya Kowalski APN. 4:15 * Telephone Encounter - Amaya Kowalski APN, DOGULAS - 08/08/2021 2:05 PM CDT Please fax an order for an x-ray to [facility]. We could also do Flexeril 15 mg 3 times a day number 30 no refills. She should also ice the area take ibuprofen and rest. * Telephone Encounter - Mohini Aguirre RN - 08/07/2021 3:31 PM CDT See my chart message. * Telephone Encounter - Mohini Aguirre RN - 08/07/2021 3:30 PM CDTFrom: Irma Seymour To: MONICA Kowalski Sent: 08/07/2021 3:04 PM CDT Subject: Lower back pain I have pulled something in my back and had been hurting for a week as of today. Didn't know if you could send an order to [facility] for and xray of my back and I can have it done while I am at work and see what is wrong since the pain hasn't gotten any better. It hurts really really bad. At times it's hard for me to get up and down!! Please let me know what you can do for me. documented in this encounter Plan of Treatment Upcoming Encounters Date Type Department Care Team (Late st Contact Info) Description 03/21/2025 4:30 PM CDT Office Visit [facility] - Primary Care - [place] [address] [place] [address] Shravan Burgos PAC [address] [place] [address] documented as of this encounter Goals Goal Patient Goal Type Associated Problems Recent Progress Patient-Stated? Author Behavioral Health Behavioral Health On track(2019 9:50 AM CDT) Yes Eloise Jenkins, RN TRANSITIONAL Note: Irma reported her goal for psychotherapy [...] as of this encounter Care Teams Automotive Service Technician Relationship Specialty Start Date End Date Amaya Kowalski, DOCTOR OSTEOPATHIC, WINDOW SHADE CUTTER AND MOUNTER [address] [place] [address] PCP - General Advanced Practice Nurse 06/10/18 documented as of this encounter
--- OUTSIDE RECORDS SUMMARY | 2024-11-30 17:19 | XMS_ITS | Encounter Summary ---
Author Organization [facility] Address [address] [place] [place] [address] Phone Care Team Providers Care Freight Rate Clerk Name Role Phone Amaya Kowalski APRN, CNP Primary Care Provider Reason for Visit * Reason Comments Medication Refill Encounter Details Date Type Department Care Team ([facility] st Contact Info) Description 05/19/2021 Refill [facility] - Primary Care - [place] [address] [place] [address] Amaya Kowalski APRN, DATA COORDINATOR [address] [place] [address] Medication Refill Social History Tobacco [...] Telephone Encounter - Mohini Aguirre RN - 2021 8:44 AM CDT Patient phoned to inform that prescription is ready for pickle maker. No answer. Left voicemail. * Telephone Encounter - Amaya Kowalski APN, CNP - 2021 7:39 AM CDT [place] prescription monitoring site reviewed. Need urine drug screen medication approved * Telephone Encounter - Shena Romo RN - 05/19/2021 4:36 PM CDT [place] PD[place] last fill date 04/14/21 Medication failed the protocol, provider to review and approve the medication order if appropriate. Requested Prescriptions Pending Prescriptions Disp Refills LORazepam (ATIVAN) 1 MG Tablet [Pharmacy Med Name: LORAZEPAM 1 MG TABLET] 30 Tablet Sig: TAKE ONE-HALF TABLET BY MOUTH TWICE DAILY NEEDED FOR ANXIETY FOR UP TO 30 DAYS [facility] Not Delegated - Anesthesia: Anesthetics & Sedatives Failed - 05/19/2021 4:36 PM Failed - Valid encounter within last 6 months Past Office Visits Recent Outpatient Visits 9 months ago Injury of left foot, initial encounter [facility] - [facility] - Amaya Rodriguez APN, CNP 1 year ago Moderate episode of recurrent major depressive disorder (HCC) [facility] - Amaya Yoder APN, CNP 1 year ago Anxiety [facility] - Amaya Yoder APN, CNP 2 years ago Chronic bronchitis with productive mucopurulent cough (HCC) [facility] - Fox Conde PAC 2 years ago Chronic bronchitis, unspecified chronic bronchitis type (HCC) [facility] - Amaya Yoder APN, CNP Upcoming Appointments 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 - Recent and Past Visits Recent Visits Date Type Provider Dept 07/26/20 Office Visit Amaya Kowalski APN, CNP [facility] 04/05/20 Office Visit Amaya Kowalski APN, CNP [facility] [place] Showing recent visits within past 460 days [...] Description 03/21/2025 4:30 PM CDT Office Visit [facility] Primary [facility] - [place] [address] [place] [id number] Shravan Burgos PAC [address] [place] [address] documented as of this encounter Goals Goal Patient Goal Type Associated Problems Recent Progress Patient-Stated? Author Behavioral Health Behavioral Health On track(2019 9:50 AM CDT) Yes Eloise Jenkins, BIRTH ATTENDANT Note: Irma reported her goal for psychotherapy [...] documented as of this encounter Care Teams Freight Rate Clerk Relationship Specialty Start Date End Date Amaya Kowalski, SOFTWARE RELEASE ENGINEER, DATA COORDINATOR [address] [place] [address] PCP - General Advanced Practice Nurse 06/10/18 documented as of this encounter
--- OUTSIDE RECORDS SUMMARY | 2024-11-30 17:19 | XMS_ITS | Encounter Summary ---
Author Organization [facility] Address [address] [place] [address] Phone Care Team Providers Care Automotive Porter Name Role Phone Amaya Kowalski APRN, DOUGLAS Primary Care Provider Reason for Visit * Reason Comments Medication Refill Encounter Details Date Type Department Care Team ([facility] Contact Info) Description 06/24/2021 Refill [facility] - [place] [address] [place] [address] Amaya Kowalski APRN, MEDICAL BILLING CODER [address] [place] [address] Medication Refill Social History Tobacco [...] Encounter - Amaya Kowalski APN, CNP - 06/26/2021 9:39 AM CDT [place] prescription monitoring site reviewed. Medication approved. * Telephone Encounter - Mohini Aguirre RN - 06/24/2021 3:45 PM CDT Medication failed the protocol, provider [...] Description 03/21/2025 4:30 PM CDT Office Visit [facility] - Primary Care - [place] [address] [place] [address] Shravan Burgos PAC [address] [place] [address] documented as of this encounter [...] track(2019 9:50 AM CDT) No Eloise Jenkins, MUSIC SOUND LIGHT TECHNICIAN Note: Irma will engage in a plan of action to improve emotional and mental wellbeing. Goal Reviewed with: patient Readiness to change: Not yet ready to make a change Department associated with goal: [facility] [...] as of this encounter Care Teams Automotive Porter Relationship Specialty Start Date End Date Amaya Kowalski, RETINA SUBSPECIALIST, MEDICAL BILLING CODER [address] [place] [address] PCP - General Advanced Practice Nurse 06/10/18 documented as of this encounter
--- OUTSIDE RECORDS SUMMARY | 2024-11-30 17:20 | XMS_ITS | Encounter Summary ---
Author Organization [facility] Address [address] [place] [address] Phone Care Team Providers Care Apparel Merchandiser Name Role Phone Amaya Kowalski APRN, DOUGLAS Primary Care Provider Reason for Visit * Reason Comments Medication Refill Encounter Details Date Type Department Care Team ([facility] st Contact Info) Description 03/14/2021 Refill [facility] - [place] [address] [place] [address] Amaya Kowalski APRN, GLOBAL MARKETING MANAGER [address] [place] [address] Medication Refill Social History Tobacco [...] Encounter - Amaya Kowalski APN, CNP - 03/14/2021 2:29 PM CDT Approved * Telephone Encounter - Mohini Aguirre RN - 03/14/2021 2:06 PM CDT Per nursing clinical judgement, provider to review and approve the medication(s) order(s) if appropriate. Requested Prescriptions Pending Prescriptions Disp Refills Symbicort 160-4.5 MCG/ACT Aerosol [Pharmacy Med Name: SYMBICORT 160-4.5 MCG INHALER] 10.2 Inhaler Sig: INHALE TWO PUFFS BY MOUTH TWO TIMES A DAY There is no refill protocol information for this order documented in this encounter Plan of Treatment Upcoming Encounters Date Type Department Care Team (Late st Contact Info) Description 03/21/2025 4:30 PM CDT Office Visit [facility] - Primary Care - [place] [address] [place] [address] Shravan Burgos PAC [address] [place] [address] documented as of this encounter [...] documented as of this encounter Care Teams Apparel Merchandiser Relationship Specialty Start Date End Date Amaya Kowalski, SOFTWARE TEST SPECIALIST, GLOBAL MARKETING MANAGER [address] [place] [address] PCP - General Advanced Practice Nurse 06/10/18 documented as of this encounter
--- OUTSIDE RECORDS SUMMARY | 2024-11-30 17:20 | XMS_ITS | Encounter Summary ---
Author Organization [facility] Address [address] [place] [address] Phone Care Team Providers Care City Maintenance Manager Name Role Phone Amaya Kowalski APRN, CNP Primary Care Provider Reason for Visit * Reason Comments Medication Refill Encounter Details Date Type Department Care Team ([facility] st Contact Info) Description 03/14/[address] [facility] - Primary Care - [place] [address] [place] [address] Amaya Kowalski APRN, PUBLIC UTILITIES SALES REPRESENTATIVE [address] [place] [address] Medication Refill Social History Tobacco [...] - Amaya Kowalski APN, CNP - 03/14/2021 1:03 PM CDT [place] prescription monitoring site reviewed. Medication approved. * Telephone Encounter - Mohini Aguirre RN - 03/14/2021 12:19 PM CDT Medication failed the protocol, provider to review and approve the medication order if appropriate. Requested Prescriptions Pending Prescriptions Disp Refills albuterol 108 (90 Base) MCG/ACT Aerosol Solution [Pharmacy Med Name: ALBUTEROL HFA (PROVENTIL) INH]6.7 Inhaler 0 Sig: INHALE 1-2 PUFFS BY MOUTH EVERY 4 HOURS NEEDED FOR WHEEZING OR COUGH [facility] Pulmonology: Beta Agonists - Albuterol & Levalbuterol Failed - 03/14/2021 12:08 PM Failed - Valid encounter within last 6 months Past Office Visits Recent Outpatient Visits 7 months ago Injury of left foot, initial encounter [facility] Amaya Kowalski APN, DOUGLAS 11 months ago Moderate episode of recurrent major depressive disorder (HCC) [facility] - Amaya Yoder APN, PUBLIC UTILITIES SALES REPRESENTATIVE 1 year ago Anxiety [facility] - Amaya Yoder APN, DOUGLAS 2 years ago Chronic bronchitis with productive mucopurulent cough (HCC) [facility] - Fox Conde PAC 2 years ago Chronic bronchitis, unspecified chronic bronchitis type (HCC) [facility] - Amaya Yoder APN, PUBLIC UTILITIES SALES REPRESENTATIVE Upcoming Appointments SENIOR APPLICATIONS DEVELOPER - Recent and Past Visits Recent Visits Date Type Provider Dept 07/26/20 Office Visit Amaya Kowalski APN, CNP [facility] recent visits within past 460 days with a meds authorizing provider and meeting all other requirements Future Appointments No visits were found meeting these conditions. Showing future appointments within next 90 days with a meds authorizing provider and meeting all other requirements Failed - May refill 2 inhalers, 0 refills one time since last office visit. May refill #50 nebulizer vials, 0 refills for albuterol or #48 vials, 0 refills for Xopenex one time since last office visit. Passed - Last BP in normal range BP Readings from Last 1 Encounters: 12/05/20 117/80 LORazepam (ATIVAN) 1 MG Tablet [Pharmacy Med Name: LORAZEPAM 1 MG TABLET] 30 Tablet 0 Sig: TAKE ONE-HALF TABLET BY MOUTH TWICE DAILY NEEDED FOR ANXIETY FOR UP TO 30 DAYS [facility] Not Delegated - Anesthesia: Anesthetics & Sedatives Failed - 03/14/2021 12:08 PM Failed - Valid encounter within last 6 months Past Office Visits Recent Outpatient Visits 7 months ago Injury of left foot, initial encounter [facility] Amaya Kowalski APN, CNP 11 months ago Moderate episode of recurrent major depressive disorder (HCC) [facility] - Amaya Yoder APN, CNP 1 year ago Anxiety [facility] - Amaya Yoder APN, DOUGLAS 2 years ago Chronic bronchitis with productive mucopurulent cough (HCC) [facility] - Fox Conde PAC 2 years ago Chronic bronchitis, unspecified chronic bronchitis type (HCC) [facility] APN, DOUGLAS Upcoming Appointments SENIOR APPLICATIONS DEVELOPER - Recent and Past Visits Recent Visits Date Type Provider Dept 07/26/20 Office Visit Amaya Kowalski APN, CNP [facility] [place] [facility] 04/05/20 Office Visit Amaya Kowalski APN, CNP [facility] [place] Showing recent visits within past 460 days [...] 03/21/2025 4:30 PM CDT Office Visit [facility] - Primary Care - [place] [address] [place] [address] Shravan Burgos PAC [address] [place] [address] documented as of this encounter Goals Goal Patient Goal Type Associated Problems Recent Progress Patient-Stated? Author [facility] Behavioral Health On track(2019 9:50 AM CDT) Yes Eloise Jenkins LCPC Note: Irma reported her goal for psychotherapy is to help me be able to deal with things in the present and in her past that are contributing to low and anxious mood. Goal Reviewed with: patient Readiness to change: Thinking about making a change Department associated with goal: [facility] Steps to [...] change Department associated with goal: [facility] Steps to [...] as of this encounter Care Teams City Maintenance Manager Relationship Specialty Start Date End Date Amaya Kowalski, BOTTLE BLOWER, PUBLIC UTILITIES SALES REPRESENTATIVE [address] [place] [address] PCP - General Advanced Practice Nurse 06/10/18 documented as of this encounter
--- OUTSIDE RECORDS SUMMARY | 2024-11-30 17:20 | XMS_ITS | Encounter Summary ---
Author Organization [facility] Address [address] [place] [address] Phone Care Team Providers Care Hemmer Lockstitch Name Role Phone Amaya Kowalski APRN, CNP Primary Care Provider Reason for Visit * Reason Onset Date Comments Results 02/10/2021 Urine drug scree n Encounter Details Date Type Department Care Team ([facility] st Contact Info) Description 02/10/2021 Telephone [facility] - Primary Care - [place] [address] [place] [address] Amaya Kowalski APRN, CNP [address] [place] [address] Results (Urine drug screen) Social [...] have Coronavirus / COVID-19? No / Unsure 02/04/2021 4:02 PM LAUNDRY PRESS OPERATOR documented as of this encounter Miscellaneous Notes * Telephone Encounter - Amaya Kowalski APN, CNP - 02/10/2021 8:49 AM CDT Drug screen shows compliance with lorazepam and nothing else. * Telephone Encounter - Mohini Aguirre RN - 02/10/2021 8:11 AM CDT Urine drug screen results received from [facility] Placed in PCP inbox for review. documented in this encounter Plan of Treatment Upcoming Encounters Date Type Department Care Team (Late st Contact Info) Description 03/21/2025 4:30 PM CDT Office Visit [facility] - Primary Care - [place] [address] [place] [address] Shravan Burgos PAC [address] [place] [address] documented as of this encounter [...] documented as of this encounter Care Teams Hemmer Lockstitch Relationship Specialty Start Date End Date Amaya Kowalski, COMMUNITY LIVING SPECIALIST, STEAMBOAT PILOT [address] [place] [place] [address] PCP - General Advanced Practice Nurse 06/10/18 documented as of this encounter
--- OUTSIDE RECORDS SUMMARY | 2024-11-30 17:20 | XMS_ITS | Encounter Summary ---
Author Organization [employer] Care Team Providers Care Battery Recharger Name Role Phone Amaya Kowalski APRN, TOBACCO CURER Primary Care Provider Encounter Details Date Type Department Care Team (Latest Contact Info) Description 02/04/2021 Travel Social History Tobacco Use Types Packs/Day [...] COVID-19? No / Unsure 02/04/2021 4:02 PM WATCH PARTS GRINDER documented as of this encounter Plan of Treatment Upcoming Encounters Date Type Department Care Team (Late st Contact Info) Description 03/21/2025 4:30 PM CDT Office Visit [facility] - Primary Care - [place] [address] [place] [address] Shravan Burgos, PAC [address] [place] [address] documented as of this encounter Goals Goal Patient Goal Type Associated Problems Recent Progress Patient-Stated? Author [facility] On track(2019 9:50 AM CDT) Yes [...] documented as of this encounter Care Teams Battery Recharger Relationship Specialty Start Date End Date Amaya Kowalski APRN, TOBACCO CURER [address] [place] [address] PCP - General Advanced Practice Nurse 06/10/18 documented as of this encounter
--- OUTSIDE RECORDS SUMMARY | 2024-11-30 17:21 | XMS_ITS | Encounter Summary ---
Author Organization [facility] Address [address] [place] [address] Phone Care Team Providers Care Machine Striper Name Role Phone Amaya Kowalski APRN, CNP Primary Care Provider Reason for Visit * Reason Comments Medication Refill Encounter Details Date Type Department Care Team ([facility] st Contact Info) Description 02/04/2021 Refill [facility] - Primary Care - [place] [address] [place] [address] Amaya Kowalski APRN, PROCESS ENG [address] [place] [address] Medication Refill Social History Tobacco [...] Telephone Encounter - Mohini Aguirre RN - 02/04/2021 10:58 AM MANAGER OF HOSPITAL Patient phoned to inform that prescription is ready for peanut picker. No answer. Left voicemail. [facility] * Telephone Encounter - Amaya Kowalski APN, CNP - 02/04/2021 10:27 AM MANAGER OF HOSPITAL [place] prescription monitoring site reviewed. Medication approved. Urine drug screen required. [facility] * Telephone Encounter - Mohini Aguirre RN - 02/04/2021 10:18 AM MANAGER OF HOSPITAL Medication failed the protocol, provider to review and approve the medication order if appropriate. Requested Prescriptions Pending Prescriptions Disp Refills LORazepam (ATIVAN) 1 MG Tablet [Pharmacy Med Name: LORAZEPAM 1 MG TABLET] 30 Tablet 0 Sig: TAKE ONE-HALF TABLET BY MOUTH TWICE DAILY NEEDED FOR ANXIETY FOR UP TO 30 DAYS Not Delegated - Anesthesia: Anesthetics & Sedatives Failed - 02/04/2021 12:12 AM Failed - Valid encounter within last 6 months Past Office Visits Recent Outpatient Visits 6 months ago Injury of left foot, initial encounter [facility] - Amaya Rodriguez APN, CNP 10 months ago Moderate episode of recurrent major depressive disorder (HCC) [facility] - Amaya Yoder APN, CNP 1 year ago Anxiety [facility] - Amaya Yoder APN, CNP 1 year ago Chronic bronchitis with productive mucopurulent cough (HCC) [facility] - Fox Conde PAC 1 year ago Chronic bronchitis, unspecified chronic bronchitis type (HCC) [facility] - Amaya Yoder APN, CNP Upcoming Appointments SURGERY ATTENDANT - Recent and Past Visits Recent Visits [...] Failed - This refill cannot be delegated [facility] documented in this encounter Plan of Treatment Upcoming Encounters Date Type Department Care Team (Late st Contact Info) Description 03/21/2025 4:30 PM CDT Office Visit [facility] Primary Care - [place] [address] [place] [address] Shravan Burgos PAC [address] [place] [address] documented as of this encounter Goals Goal Patient Goal Type Associated Problems Recent Progress Patient-Stated? Author Behavioral Health Behavioral Health On track(2019 9:50 AM CDT) Yes Eloise Jenkins, CLOTH EDGE SINGER Note: Irma reported her goal for psychotherapy is to help me be able to deal with things in the present and in her past that are contributing to low and anxious mood. Goal Reviewed with: patient Readiness to change: Thinking about making a change Department associated with goal: [facility] Steps to [...] make a change Department associated with goal: [facility] Steps to [...] documented as of this encounter Care Teams Machine Striper Relationship Specialty Start Date End Date Amaya Kowalski, NUT ROASTER HELPER, PROCESS ENG [address] [place] [address] PCP - General Advanced Practice Nurse 06/10/18 documented as of this encounter
--- OUTSIDE RECORDS SUMMARY | 2024-11-30 17:21 | XMS_ITS | Encounter Summary ---
Author Organization [facility] Address [address] [place] [address] Phone Care Team Providers Care Tin Stacker Name Role Phone Amaya Kowalski APRN, DOUGLAS Primary Care Provider Encounter Details Date Type Department Care Team ([facility] Contact Info) Description 01/02/2021 11:00 AM TESTING PROJECTS ADMINISTRATOR Lab [facility] - Primary Care - [address] [phone] Lab, [facility] Discharge Disposition: Discharged to home [...] have Coronavirus / COVID-19? No / Unsure 01/02/2021 8:55 AM TESTING PROJECTS ADMINISTRATOR documented as of this encounter Progress Notes * Cristin Tolentino RMA - 01/02/2021 11:00 AM CST Uds sent to [employer] ING PROJECTS ADMINISTRATOR documented in this encounter Plan of Treatment Upcoming Encounters Date Type Department Care Team (Late st Contact Info) Description 03/21/2025 4:30 PM CDT Office Visit [facility] - Primary Care - [place] [address] [place] [address] Shravan Burgos PAC [address] [place] [address] documented as of this encounter [...] making a change Department associated with goal: [facility] Steps to achieve [...] make a change Department associated with goal: [facility] Steps to achieve [...] documented as of this encounter Care Teams Tin Stacker Relationship Specialty Start Date End Date Amaya Kowalski, BINDER CASER, SECURITY INSTALLER [address] [place] [address] PCP - General Advanced Practice Nurse 06/10/18 documented as of this encounter
--- OUTSIDE RECORDS SUMMARY | 2024-11-30 17:21 | XMS_ITS | Encounter Summary ---
Author Organization [facility] Address [address] [place] [address] Phone Care Team Providers Care Restaurant Hourly Team Member Name Role Phone Amaya Kowalski APRN, DOUGLAS Primary Care Provider Reason for Visit * Reason Comments Medication Refill Encounter Details Date Type Department Care Team (Late st Contact Info) Description 02/04/2021 Refill [facility] - Primary Care - [place] [address] [place] [address] Fox Jesus PAC Medication Refill Social History Tobacco Use Types [...] - Amaya Kowalski APN, CNP - 02/04/2021 10:22 AM PHOTO EQUIPMENT TECHNICIAN Approved O EQUIPMENT TECHNICIAN * Telephone Encounter - Mohini Aguirre RN - 02/04/2021 10:19 AM PHOTO EQUIPMENT TECHNICIAN Medication failed the protocol, provider to review and approve the medication order if appropriate. Requested Prescriptions Pending Prescriptions Disp Refills albuterol 108 (90 Base) MCG/ACT Aerosol Solution [Pharmacy Med Name: ALBUTEROL HFA (PROVENTIL) INH]6.7 Inhaler 0 Sig: INHALE 1-2 PUFFS BY INHALATION EVERY 4 HOURS NEEDED FOR WHEEZING OR COUGH Pulmonology: Beta Agonists - Albuterol & Levalbuterol Failed - 02/04/2021 12:12 AM Failed - Valid encounter within last 6 months Past Office Visits Recent Outpatient Visits 6 months ago Injury of left foot, initial encounter [facility] Amaya Kowalski APN, CNP 10 months ago Moderate episode of recurrent major depressive disorder (HCC) [facility] - Amaya Yoder APN, CNP 1 year ago Anxiety [facility] - Amaya Yoder APN, CNP 1 year ago Chronic bronchitis with productive mucopurulent cough (HCC) [facility] - Fox Conde PAC 1 year ago Chronic bronchitis, unspecified chronic bronchitis type (HCC) [facility] - Amaya Yoder APN, CNP Upcoming Appointments MANUFACTURING MILLWRIGHT - Recent and Past Visits Recent Visits Date Type Provider Dept 07/26/20 Office Visit Amaya Kowalski APN, CNP [facility] 04/05/20 Office Visit Amaya Kowalski APN, CNP [facility] recent visits within past 460 days with [...] Readings from Last 1 Encounters: 12/05/20 117/80 O EQUIPMENT TECHNICIAN documented in this encounter Plan of Treatment Upcoming Encounters Date Type Department Care Team (Late st Contact Info) Description 03/21/2025 4:30 PM CDT Office Visit [facility] - Primary Care - [place] [address] [place] [address] Shravan Burgos PAC [address] [place] [address] documented as of this encounter [...] as of this encounter Care Teams Restaurant Hourly Team Member Relationship Specialty Start Date End Date Amaya Kowalski, NURSE UNIT MANAGER, NETWORK DIAGNOSTIC SUPPORT SPECIALIST [address] [place] [address] PCP - General Advanced Practice Nurse 06/10/18 documented as of this encounter
--- OUTSIDE RECORDS SUMMARY | 2024-11-30 17:21 | XMS_ITS | Encounter Summary ---
Author Organization [facility] Address [address] [place] [address] Phone Care Team Providers Care Technical Project Manager Name Role Phone Amaya Kowalski APRN, DOUGLAS Primary Care Provider Encounter Details Date Type Department Care Team (Late st Contact Info) Description 12/31/2020 Refill [facility] Primary Care - [place] [address] [place] [address] Amaya Kowalski APRN, DOG BEHAVIORIST [address] [place] [address] Social History Tobacco Use Types Packs/Day Years [...] or suspected to have Coronavirus / COVID-19? Yes 12/05/2020 3:55 AM COLOR DIPPER documented as of this encounter Miscellaneous Notes * Telephone Encounter - Amaya Kowalski APN, CNP - 12/31/2020 8:53 AM COLOR DIPPER Ativan refilled. Patient will do frequent drug screens. R DIPPER documented in this encounter Plan of Treatment Upcoming Encounters Date Type Department Care Team (Late st Contact Info) Description 03/21/2025 4:30 PM CDT Office Visit [facility] - Primary Care - [place] [address] [place] [address] Shravan Burgos PAC [address] [place] [address] documented as of this encounter Goals Goal Patient Goal Type Associated Problems Recent Progress Patient-Stated? Author Behavioral Health Behavioral Health On track(2019 9:50 AM CDT) Yes Eloise Jenkins, COMPACTOR DRIVER Note: Irma reported her goal for psychotherapy [...] documented as of this encounter Results * URINE DRUG SCREEN (01/02/2021) Urine us Amaya Kowalski APRN, CNP URINE ORDERABLES Final Result documented in this encounter Visit Diagnoses Diagnosis High risk medication use- Primary Encounter for long-term (current) use of other medications documented in this encounter Additional Health Concerns Assessment Noted Time PHQ-9 Depression Total Score: 13 020 2:00 PM CDT documented as of this encounter Care Teams Technical Project Manager Relationship Specialty Start Date End Date Amaya Kowalski APRN, CNP [address] [place] [address] PCP - General Advanced Practice Nurse 06/10/18 documented as of this encounter
--- OUTSIDE RECORDS SUMMARY | 2024-11-30 17:21 | XMS_ITS | Encounter Summary ---
Author Organization [facility] Address [address] [place] [address] Phone Care Team Providers Care Armed Security Guard Name Role Phone Amaya Kowalski APRN, DOUGLAS Primary Care Provider Encounter Details Date Type Department Care Team ([facility] st Contact Info) Description 02/04/2021 4:10 PM BALLET COMPANY MEMBER Lab [facility] - Primary Care - [address] [phone] Lab, [facility] Discharge Disposition: Discharged to [...] COVID-19? No / Unsure 02/04/2021 4:02 PM BALLET COMPANY MEMBER documented as of this encounter Progress Notes * Cristin Tolentino RMA - 02/04/2021 4:10 PM CST uds sent to [employer] Script given ET COMPANY MEMBER documented in this encounter Plan of Treatment Upcoming Encounters Date Type Department Care Team (Late st Contact Info) Description 03/21/2025 4:30 PM CDT Office Visit [facility] - Primary Care - [place] [address] [place] [address] Shravan Burgos, PAPI [address] [place] [address] documented as of this encounter Goals Goal Patient Goal Type Associated Problems Recent Progress Patient-Stated? Author Behavioral Health Behavioral Health On track(2019 9:50 AM CDT) Yes Eloise Jenkins, SCRAP SHEAR OPERATOR Note: Irma reported her goal for psychotherapy is to help me be able to deal with things in the present and in her past that are contributing to low and anxious mood. Goal Reviewed with: patient Readiness to change: Thinking about making a change Department associated with goal: [facility] Steps to achieve [...] make a change Department associated with goal: [facility] Steps to achieve [...] documented as of this encounter Care Teams Armed Security Guard Relationship Specialty Start Date End Date Amaya Kowalski, OUTSIDE SOLAR SALES CONSULTANT, MORTGAGE COUNSELOR [address] [place] [address] PCP - General Advanced Practice Nurse 06/10/18 documented as of this encounter
--- OUTSIDE RECORDS SUMMARY | 2024-11-30 17:21 | XMS_ITS | Encounter Summary ---
Author Organization [facility] Address [address] [place] [address] Phone Care Team Providers Care General Hardware Salesperson Name Role Phone Amaya Kowalski APRN, CNP Primary Care Provider Reason for Visit * Reason Comments Medication Refill Encounter Details Date Type Department Care Team (Late st Contact Info) Description 12/28/2020 Refill [facility] - Primary Care - [place] [address] [place] [phone] Shahida Bianchi APRN, CNP [address] [place] [address] Medication Refill Social History Tobacco [...] Coronavirus / COVID-19? Yes 12/05/2020 3:55 AM TOE STRIPPER documented as of this encounter Miscellaneous Notes * Telephone Encounter - Mohini Aguirre RN - 12/31/2020 8:20 AM TOE STRIPPER See my chart message of 12/31/20. STRIPPER * Telephone Encounter - Mohini Aguirre RN - 12/30/2020 11:54 AM TOE STRIPPER Attempted to phone patient to relay PCP message. No answer. Voicemail left to call the office. STRIPPER * Telephone Encounter - Amaya Kowalski APN, CNP - 12/30/2020 11:27 AM TOE STRIPPER I will not be refilling this. Drug screen showed cocaine and methamphetamines. STRIPPER * Telephone Encounter - Michell Rowley RN - 12/30/2020 10:45 AM TOE STRIPPER Medication failed the protocol, provider to review and approve the medication order if appropriate. Requested Prescriptions Pending Prescriptions Disp Refills LORazepam (ATIVAN) 1 MG Tablet [Pharmacy Med Name: LORAZEPAM 1 MG TABLET] 30 Tab 0 Sig: TAKE 1 TABLET BY MOUTH AT BEDTIME NEEDED FOR ANXIETY Not Delegated - Anesthesia: Anesthetics & Sedatives Failed - 12/28/2020 4:27 PM Failed - This refill cannot be delegated Passed - Valid encounter within last 6 months Past Office Visits Recent Outpatient Visits 5 months ago Injury of left foot, initial encounter [facility] Amaya Kowalski APN, CNP 8 months ago Moderate episode of recurrent major depressive disorder (HCC) [facility] - Amaya Yoder APN, CNP [address] [facility] - Amaya Yoder APN, CNP 1 year ago Chronic bronchitis with productive mucopurulent cough (HCC) [facility] - Fox Conde PAC 1 year ago Chronic bronchitis, unspecified chronic bronchitis type (HCC) [facility] - Amaya Yoder APN, CNP Upcoming Appointments IT INFRASTRUCTURE ENGINEER - Recent and Past Visits Recent Visits Date Type Provider Dept 07/26/20 Office Visit Amaya Kowalski APN, CNP [facility] 04/05/20 Office Visit Amaya Kowalski APN, CNP [facility] Showing recent visits within past 460 days with a meds authorizing provider and meeting all other requirements Future Appointments No visits were found meeting these conditions. Showing future appointments within next 90 days with a meds authorizing provider and meeting all other requirements STRIPPER documented in this encounter Plan of Treatment Upcoming Encounters Date Type Department Care Team (Late st Contact Info) Description 03/21/2025 4:30 PM CDT Office Visit [facility] Primary Care - [place] [address] [place] [phone] Shravan Burgos PAC [address] [place] [address] documented as of this encounter Goals Goal Patient Goal Type Associated Problems Recent Progress Patient-Stated? Author Behavioral Health Behavioral Health On track(2019 9:50 AM CDT) Yes Eloise Jenkins, HCAD Note: Irma reported her goal for psychotherapy is to help me be able to deal with things in the present and in her past that are contributing to low and anxious mood. Goal Reviewed with: patient Readiness to change: Thinking about making a change Department associated with goal: [facility] Steps to [...] track(2019 9:50 AM CDT) No Eloise Jenkins, HUMAN RESOURCES OPERATIONS SPECIALIST Note: Irma will engage in a plan of action to improve emotional and mental wellbeing. Goal Reviewed with: patient Readiness to change: Not yet ready to make a change Department associated with goal: [facility] Steps to [...] as of this encounter Care Teams General Hardware Salesperson Relationship Specialty Start Date End Date Amaya Kowalski, CUSTOMS CONSULTANT, BOWLING BALL WEIGHER AND PACKER [address] [place] [address] PCP - General Advanced Practice Nurse 06/10/18 documented as of this encounter
--- OUTSIDE RECORDS SUMMARY | 2024-11-30 17:21 | XMS_ITS | Encounter Summary ---
Author Organization [facility] Address [address] [place] [address] Phone Care Team Providers Care Digital Content Producer Name Role Phone Amaya Kowalski APRN, CNP Primary Care Provider Reason for Visit * Reason Onset Date Comments Results 01/07/2021 UDS Encounter Details Date Type Department Care Team ([facility] Contact Info) Description 01/07/2021 Telephone [facility] - Primary Care - [place] [address] [place] [address] Amaya Kowalski APRN, CNP [address] [place] [address] Results (UDS) Social History Tobacco [...] COVID-19? 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 No other drugs present. ONAL SALES ASSOCIATE * Telephone Encounter - Mohini Aguirre RN - 01/07/2021 9:06 AM REGIONAL SALES ASSOCIATE Urine drug screen results received and placed in PCP inbox for review. ONAL SALES ASSOCIATE documented in this encounter Plan of Treatment Upcoming Encounters Date Type Department Care Team (Late st Contact Info) Description 03/21/2025 4:30 PM CDT Office Visit [facility] - Primary Care - [place] [address] [place] [address] Shravan Burgos PAC [address] [place] [address] documented as of this encounter [...] a change Department associated with goal: [facility] Steps to achieve goal: [...] track(2019 9:50 AM CDT) No Eloise Jenkins, STEEL POURER Note: Irma will engage in a plan of action to improve emotional and mental wellbeing. Goal Reviewed with: patient Readiness to change: Not yet ready to make a change Department associated with goal: [facility] Steps to achieve goal: [...] documented as of this encounter Care Teams Digital Content Producer Relationship Specialty Start Date End Date Amaya Kowalski, PRACTICE ADVISOR, PICKLE MAKER [address] [place] [address] PCP - General Advanced Practice Nurse 06/10/18 documented as of this encounter
--- OUTSIDE RECORDS SUMMARY | 2024-11-30 17:21 | XMS_ITS | Encounter Summary ---
Author Organization [employer] Care Team Providers Care Supervisor Steno Pool Name Role Phone Amaya Kowalski APRN, AVIATION ORDNANCE OFFICER Primary Care Provider Encounter Details Date Type Department Care Team (Latest Contact Info) Description 01/02/2021 Travel Social History Tobacco Use Types Packs/Day [...] COVID-19? 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 Author [facility] On track(2019 9:50 AM CDT) Yes [...] and past) that trigger mood concerns. Behavioral [facility] On track(2019 9:50 AM CDT) [...] as of this encounter Care Teams Supervisor Steno Pool Relationship Specialty Start Date End Date Amaya Kowalski APRN, AVIATION ORDNANCE OFFICER [address] [place] [address] PCP - General Advanced Practice Nurse 06/10/18 documented as of this encounter
--- OUTSIDE RECORDS SUMMARY | 2024-11-30 17:22 | XMS_ITS | Encounter Summary ---
Author Organization [facility] Address [address] [place] [address] Phone Care Team Providers Care Hydraulic Oil Tool Operator Name Role Phone Amaya Kowalski APRN, HUMAN RESOURCES BENEFITS SPECIALIST Primary Care Provider Reason for Visit * Reason Comments Facial Droop * Auth/Cert Specialty Diagnoses / Procedures Referred By Claudio t Referred To Contact Diagnoses Lower facial weakness Left Lower facial weakness Referral ID Status Reason Start Date Expiration Date Visits Re quested Visits Authorized [id number] 1 1 Encounter Details Date Type Department Care Team (Late st Contact Info) Description 12/05/2020 1:40 AM UNDERWRITING INTERN - 12/05/2020 10:56 PM UNDERWRITING INTERN Emergency [facility] Med Surg [address] [place] [phone] Kris Severino MD [address] [place] [address] Jaya Simpson APRN, HUMAN RESOURCES BENEFITS SPECIALIST [address] [place] [address] Robert Moore MD [address] [place] [address] Yumiko Titus MD [address] [place] [address] Tobacco use disorder Discharge Disposition: Discharged to [...] Coronavirus / COVID-19? Yes 12/05/2020 3:55 AM UNDERWRITING INTERN documented as of this encounter Last Filed Vital Signs Vital Sign Reading Time Taken Comments Blood Pressure 117/80 12/05/2020 10:29 PM UNDERWRITING INTERN Pulse 102 12/05/2020 10:29 PM UNDERWRITING INTERN Temperature 37.2 ??C (99 ??F) 12/05/2020 10:29 PM UNDERWRITING INTERN Respiratory Rate 16 12/05/2020 10:29 PM UNDERWRITING INTERN Oxygen Saturation 99% 12/05/2020 10:29 PM UNDERWRITING INTERN Inhaled Oxygen Concentration - - Weight 60.1 kg (132 lb 6.4 oz) 12/05/2020 5:40 A M UNDERWRITING INTERN Height 160 cm (5' 3 ) 12/05/2020 5:40 AM UNDERWRITING INTERN Body Mass Index 23.45 12/05/2020 5:40 AM UNDERWRITING INTERN documented in this encounter Discharge Summaries * Yumiko Titus MD - 12/05/2020 9:30 PM CST Images from the original note were not included. [facility] DISCHARGE SUMMARY Name: Irma Seymour Age: 40 y.o. : 1980 Attending Physician: Yumiko Titus MD Admission Date/Time: 12/05/2020 Expected Discharge Date: 12/05/2020 Primary Care Physician: Amaya Kowalski APN, CNP Discharging Provider: Yumiko Titus MD INSTRUCTIONS FOR PHYSICIANS ON FOLLOW UP AFTER DISCHARGE: Follow-up Information Follow up With Specialties Details Why Contact Info Amaya Kowalski APN, DOUGLAS Advanced Practice Nurse Follow up in 1 week(s) [address] [facility] [id number] oral surgery Follow up in 1 week(s) Discharge Instructions: Discharge Condition: improved Disposition: Home Diet: Regular Diet Activity: activity as tolerated Discharge Diagnoses: facial numbness, Apical abscess Present on Admission: ??? Tobacco use disorder ??? Leukocytosis ??? BMI 26.0-26.9,adult ??? Facial asymmetry ??? Apical abscess Admitting Diagnoses: facial droop, Apical abscess HOSPITAL COURSE: Irma Seymour was admitted 12/05/2020 with left-sided facial numbness and weakness. She was initially suspected to have a TIA/CVA however upon further assessment, the origin of the situation was foundto be a left-sided molar apical abscess with probable compression over the peripheral branches of the facial nerve. The patient also had a leukocytosis which would reflect the ongoing infection. She also had hyponatremia and hypokalemia which are probably associated with poor intake. She received IV fluid resuscitation and electrolyte replacement. The patient was started on antibiotics with Augmentin for the molar apical abscess. She will be discharged home in stable condition and will follow-up with her PCP and particularly with petra-dental surgeon as outpatient. She was recommended to stop smoking as well. Surgeries performed during stay: * No surgery found * Consults: Treatment Team: Consulting Physician: Jett Sanders MD Exam Day of Discharge: Temp Av.8 ??F (36.6 ??C) Min: 96 ??F (35.6 ??C) Max: 99 ??F (37.2 ??C) BP Min: 103/83 Max: 140/86 Pulse Av.4 Min: 90 Max: 113 Heart Rate (Monitor) Av.6 Min: 100 Max: 122 Resp Av.2 Min: 12 Max: 22 SpO2 Av.3 % Min: 96 % Max: 100 % Body mass index is 23.45 kg/m??. Exam: General: Well developed, well nourished, in no distress Skin: Normal appearance, normal turgor, no rashes HEENT: - Scar tissue and ulceration in the back of her mouth at the junction of the cheek and jaw with local swelling and tenderness and aphthous lesions Eyes: nonicteric, intact extra occular movement, PERRL Neck: normal, supple, no lymphadenopathy Heart: regular rate and rhythm, S1, S2 normal, no murmur, click, rub or gallop Lungs: clear to ausculation, normal respirations, normal precautions Abdominal: soft, non-tender; bowel sounds normal; no masses, no organomegaly Extremities: no deformities, joint mobility appears intact, no clubbing Neuro: Non-focal, CN intact, sensory and motor intact, left facial droop Psychological: alert and oriented X3, appropriate mood and affect, Intact judgement and memory Lab / Imaging Review: Lab Results Component Value Date WBC 17.81 (H) 12/05/2020 HEMOGLOBIN 14.7 12/05/2020 HEMATOCRIT 44.2 12/05/2020 PLATELETCNT 247 12/05/2020 MCV 95.3 12/05/2020 Lab Results Component Value Date SODIUM 130 (L) 12/05/2020 POTASSIUM 3.3 (L) 12/05/2020 CHLORIDE 95 (L) 12/05/2020 CO2VEN 21 (L) 12/05/2020 ANIONGAP 17.3 12/05/2020 GLUCOSE 94 12/05/2020 BUN 14 12/05/2020 CREATININE 0.73 12/05/2020 BCRATIO8 19 12/05/2020 TOTALPROTEIN 8.2 12/05/2020 ALBUMIN 4.6 12/05/2020 CALCIUM 9.4 12/05/2020 TBIL 0.9 12/05/2020 SGOTAST 24 12/05/2020 SGPTALT 8 12/05/2020 ALKALINEPHO 91 12/05/2020 GFRNA >60 12/05/2020 GFRA >60 12/05/2020 Lab Results Component Value Date GLUCOSEPOCT 91 12/05/2020 No results found for: INR, PTP Lab Results Component Value Date HGBA1C 5.1 12/05/2020 Lab Results Component Value Date [id number] 354 10/24/2019 Lab Results Component Value Date TROPONINI <0.300 09/07/2019 TROPONINI <0.300 07/31/2018 TROPONINI <0.300 06/12/2018 Lab Results Component Value Date FERRITIN 148 10/24/2019 Xr Chest Single View Portable Result Date: 12/05/2020 IMPRESSION: No acute cardiopulmonary disease. Ct Head Or Brain Wo Contrast Result Date: 12/05/2020 IMPRESSION: 1. No definite evidence of acute intracranial hemorrhage. If there is clinical concern for acute ischemia, then further evaluation with MRI is recommended. Findings were discussed with Dr. Severino by Dr. Raza at 0206 hours on 12/05/2020. Mri Brain W/wo Contrast Result Date: 12/05/2020 IMPRESSION: Mildly limited exam due to motion artifact. No acute intracranial abnormality. Unremarkable MRI of the brain with and without contrast. Mri Orbit/face/neck W/wo Contrast Result Date: 12/05/2020 IMPRESSION: Findings suggestive of an early subperiosteal/periapical abscess likely associated withthe left maxillary 1st molar. Recommend dental consultation. DISCHARGE MEDICATION LIST: Medication List START taking these medications amoxicillin-clavulanate 875-125 MG Tabs Commonly known as: AUGMENTIN Take 1 Tab by mouth 2 times daily for 14 doses. CHANGE how you take these medications ibuprofen 200 MG Tabs Commonly known as: MOTRIN Take 3 Tabs by mouth every 6 hours as needed for Fever. What changed: Another medication with the same name was removed. Continue taking this medication, and follow the directions you see here. LORazepam 1 MG Tabs Commonly known as: ATIVAN TAKE 1 TABLET BY MOUTH AT BEDTIME NEEDED FOR ANXIETY What changed: See the new instructions. CONTINUE taking these medications albuterol 108 (90 Base) MCG/ACT Aers Commonly known as: PROVENTIL HFA, VENTOLIN HFA INHALE 1-2 PUFFS BY INHALATION EVERY 4 HOURS NEEDED FOR WHEEZING OR COUGH budesonide-formoterol fumarate 160-4.5 MCG/ACT Aero Commonly known as: Symbicort take 2 Puffs by inhalation 2 times daily. ipratropium-albuterol 0.5-2.5 (3) MG/3ML Soln Commonly known as: DUO-NEB 3 mL by Nebulization route 4 times daily. * Nebulizer Herminia Use 4x/day prn. * Nebulizer/Tubing/Mouthpiece Kit Use 4 times daily prn * This list has 2 medication(s) that are the same as other medications prescribed for you. Read thedirections carefully, and ask your doctor or other care provider to review them with you. STOP taking these medications ALEVE PO azithromycin 250 MG Tabs Commonly known as: ZITHROMAX Cheratussin AC 100-10 MG/5ML Syrp Generic drug: guaiFENesin-codeine Fluticasone-Salmeterol 55-14 MCG/ACT Aepb HYDROcodone-acetaminophen 5-325 MG Tabs Commonly known as: NORCO predniSONE 10 MG Tabs Commonly known as: DELTASONE triamcinolone 0.1 % Crea Commonly known as: KENALOG venlafaxine 37.5 MG Cap-sr-24hr Commonly known as: EFFEXOR-XR Where to Get Your Medications Information about where to get these medications is not yet available Ask your nurse or doctor about these medications ?? amoxicillin-clavulanate 875-125 MG Tabs I have spent time coordinating care for this hospital discharge: Discharged from observation Thank you very much for allowing the [facility] Adult Hospitalist Service to participate in the care of this patient. If you have any questions, please don't hesitate to call. Signed: Yumiko Titus MD, 12/05/2020, 9:30 PM UNDERWRITING INTERN RWRITING INTERN documented in this encounter Discharge Instructions * Attachments The following attachments cannot be sent through Care Everywhere. * Stroke, Discharge Instructions for (Honduran) documented in this encounter Medications at Time [...] MCG/ACT Aerosol Solution INHALE 1-2 PUFFS BY INHALATION EVERY 4 HOURS NEEDED FOR WHEEZING OR COUGH 6.7 Inhaler 10/23/2020 1 amoxicillin-clav ulanate (AUGMENTIN) 875-125 MG Tablet Take 1 Tab by mouth 2 times daily for 14 doses. 14 Tab 12/05/2020 1 budesonide-formo terol fumarate (Symbicort) 160-4.5 MCG/ACT AerosolIndicatio ns:Bronchitis take 2 Puffs by inhalation 2 times daily. 1 Inhaler 10/15/2020 1 ipratropium-albu terol (DUO-NEB) 0.5-2.5 (3) MG/3ML Solution 3 mL by Nebulization route 4 times daily. 360 Vial 3 04/05/2020 2 LORazepam (ATIVAN) 1 MG Tablet TAKE 1 TABLET BY MOUTH AT BEDTIME NEEDED FOR ANXIETY 30 Tab 11/27/2020 1 documented as of this encounter H&P Notes * Yumiko Titus MD - 12/05/2020 10:09 AM CST [facility] ADMISSION HISTORY & PHYSICAL Anticipated Date of Discharge: 12/05/2020 Chief Complaint: Left facial droop HPI: Irma Seymour is a 40 y.o. female who presented to [facility] with complaints of left-sided facial numbness and weakness. The patient states that the symptoms have evolved since yesterday. She also states that she has been chewing back part of her cheeks from inside overnight and has chronic wounds over there. 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 Multiple family members have had early strokes and TIAs. Her symptoms are better now compared to yesterday but the patient still has a left facial droop. Allergies: is allergic to doxycycline and bactrim [sulfamethoxazole-trimethoprim]. Home Medications: Prior to Admission Medications Prescriptions Last Dose Informant Patient Reported? Taking? Fluticasone-Salmeterol 55-14 MCG/ACT AEROSOL POWDER, BREATH ACTIVATED No No Sig: take 1 Puff by inhalation 2 times daily. Patient not taking: Reported on 07/26/2020 HYDROcodone-acetaminophen (NORCO) 5-325 MG Tablet No No Sig: Take 1 Tab by mouth every 8 hours as needed for Moderate or more severe pain. Patient not taking: Reported on 10/15/2020 LORazepam (ATIVAN) 1 MG Tablet 12/04/2020 at 1800 No Yes Sig: TAKE 1 TABLET BY MOUTH AT BEDTIME NEEDED FOR ANXIETY Patient taking differently: Take 0.5 mg by mouth 2 times daily as needed for Anxiety. Naproxen Sodium (ALEVE PO) Yes No Sig: Take by mouth daily. Respiratory Therapy Supplies (NEBULIZER) Device > Month at Unknown time No Yes Sig: Use 4x/day prn. Respiratory Therapy Supplies (NEBULIZER/TUBING/MOUTHPIECE) Kit > Month at Unknown time No Yes Sig: Use 4 times daily prn albuterol 108 (90 Base) MCG/ACT Aerosol Solution > Month at Unknown time No Yes Sig: INHALE 1-2 PUFFS BY INHALATION EVERY 4 HOURS NEEDED FOR WHEEZING OR COUGH azithromycin (ZITHROMAX) 250 MG Tablet No No Si tab(s) daily for 1 day, then 1 tab(s) daily for days 2-5. budesonide-formoterol fumarate (Symbicort) 160-4.5 MCG/ACT Aerosol > Month at Unknown time No Yes Sig: take 2 Puffs by inhalation 2 times daily. guaiFENesin-codeine (Cheratussin AC) 100-10 MG/5ML Syrup No No Sig: Take 5 mL by mouth every 4 hours as needed for Cough. ibuprofen (MOTRIN) 200 MG Tablet No No Sig: Take 3 Tabs by mouth every 6 hours as needed for Fever. ibuprofen (MOTRIN) 800 MG Tablet No No Sig: Take 1 Tab by mouth every 8 hours. Patient not taking: Reported on 07/26/2020 ipratropium-albuterol (DUO-NEB) 0.5-2.5 (3) MG/3ML Solution > Month at Unknown time No Yes Si mL by Nebulization route 4 times daily. predniSONE (DELTASONE) 10 MG Tablet No No Sig: Take 4 tab PO daily x 2 days, 3 tab PO daily x 2 days, 2 tab PO daily x 2 day, 1 tab PO daily x 2 days. triamcinolone (KENALOG) 0.1 % Cream No No Sig: Application Site: extremities x 4 and chest Patient not taking: Reported on 09/07/2018 venlafaxine (EFFEXOR-XR) 37.5 MG CAPSULE SR 24 HR No No Sig: TAKE 1 CAPSULE BY MOUTH EVERY DAY Patient not taking: Reported on 07/26/2020 Facility-Administered Medications: None Past Medical History: She has a past medical history of Alcohol abuse, Anxiety, Asthma, Nava's palsy, Bronchitis, COPD (chronic obstructive pulmonary disease) ([facility]), Depression, Heart palpitations, Panic attack, Sleep difficulties, and Suicide attempt ([facility]) (09/2018). Surgical History: has no past surgical history on file. Social History: reports that she has been smoking cigarettes. She has never used smokeless tobacco.She reports current alcohol use of about 3.0 oz of alcohol per week. She reports previous drug use. Family History: family history includes Anxiety disorder in her mother; Heart Attack in her maternal grandfather; Hypertension in her father; Other-comment in her sister; Seizures in her brother. Multiple strokes on the paternal side of the family. Review of Systems: All systems reviewed and are negative except what is mentioned in HPI. Physical Exam: VITALS:Temp Av.7 ??F (36.5 ??C) Min: 96 ??F (35.6 ??C) Max: 99 ??F (37.2 ??C) BP Min: 103/83 Max: 140/86 Pulse Av.8 Min: 90 Max: 113 Heart Rate (Monitor) Av.2 Min: 100 Max: 122 Resp Av.8 Min: 12 Max: 22 SpO2 Av.5 % Min: 99 % Max: 100 % O2 Device: None (Room air) No intake/output data recorded. Stool Occurrence: 0 (12/05/20840) Emesis Occurrence: 0 (12/05/20840) Weight: Wt Readings from Last 1 Encounters: 12/05/20 132 lb 6.4 oz (60.1 kg) BMI: Body mass index is 23.45 kg/m??. Exam: General: Well developed, well nourished, in no distress Skin: Normal appearance, normal turgor, no rashes HEENT: - Scar tissue and ulceration in the back of her mouth at the junction of the cheek and jaw with local swelling and tenderness and aphthous lesions Eyes: nonicteric, intact extra occular movement, PERRL Neck: normal, supple, no lymphadenopathy Heart: regular rate and rhythm, S1, S2 normal, no murmur, click, rub or gallop Lungs: clear to ausculation, normal respirations, normal precautions Abdominal: soft, non-tender; bowel sounds normal; no masses, no organomegaly Extremities: no deformities, joint mobility appears intact, no clubbing Neuro: Non-focal, CN intact, sensory and motor intact, left facial droop Psychological: alert and oriented X3, appropriate mood and affect, Intact judgement and memory Data Review: Xr Chest Single View Portable Result Date: 12/05/2020 IMPRESSION: No acute cardiopulmonary disease. Ct Head Or Brain Wo Contrast Result Date: 12/05/2020 IMPRESSION: 1. No definite evidence of acute intracranial hemorrhage. If there is clinical concern for acute ischemia, then further evaluation with MRI is recommended. Findings were discussed with Dr. Severino by Dr. Raza at 0206 hours on 12/05/2020. Lab Results Component Value Date WBC 17.81 (H) 12/05/2020 HEMOGLOBIN 14.7 12/05/2020 HEMATOCRIT 44.2 12/05/2020 PLATELETCNT 247 12/05/2020 MCV 95.3 12/05/2020 Lab Results Component Value Date SODIUM 130 (L) 12/05/2020 POTASSIUM 3.3 (L) 12/05/2020 CHLORIDE 95 (L) 12/05/2020 CO2VEN 21 (L) 12/05/2020 ANIONGAP 17.3 12/05/2020 GLUCOSE 94 12/05/2020 BUN 14 12/05/2020 CREATININE 0.73 12/05/2020 BCRATIO8 19 12/05/2020 TOTALPROTEIN 8.2 12/05/2020 ALBUMIN 4.6 12/05/2020 CALCIUM 9.4 12/05/2020 TBIL 0.9 12/05/2020 SGOTAST 24 12/05/2020 SGPTALT 8 12/05/2020 ALKALINEPHO 91 12/05/2020 GFRNA >60 12/05/2020 GFRA >60 12/05/2020 No results found for: PHARTERIAL, PO2ART, WVO8UBT, CO2ART, O2ART Lab Results Component Value Date TROPONINI <0.300 09/07/2019 Lab Results Component Value Date CHOLESTEROL 160 12/05/2020 TRIGLYCRIDES 82 12/05/2020 HDLCHOLESTE 63.1 12/05/2020 LDL 81 12/05/2020 Assessment/Plan: Active Problems: BMI 26.0-26.9,adult Overview: Last Assessment & Plan: Recommended patient to continue to increase heart healthy diet with adequate fruits, vegetables, and plenty of water along with mild-moderate daily exercise as tolerated. Tobacco use disorder Leukocytosis Facial asymmetry Plan: 1. Left facial droop. Further assessment with an MRI will be done. This could be secondary to pressure over the peripheral branch of the left facial nerve. Further clarification with the MRI will be done. 2. Bilateral scar tissue and ulcerations in the back part of the mouth. This is probably secondary to the inner part of the cheeks being chewed by the wisdom teeth. The patient has a limited space over the and is apparently chewing on the area during her sleep. She has to follow-up with an oral surgeon as outpatient to have the molar teeth extracted. Mouth washes should be used for the moment. 3. Tobacco dependency. The patient will states that she occasionally smokes. Counseling was done and she was highly advised to avoid any further smoking particularly if she has a genetic syndrome that can make her more vulnerable to cerebrovascular accident. 4. Leukocytosis. Probably associated with the ongoing inflammation in her mouth. Continue monitoring. 5. Disposition: MRI of the brain and face to be done to assess for the origin of the facial droop. She can be probably discharged later today. 6. Code Status: Full Code 7. VTE Prophylaxis: Patient Low Risk, gets off the bed and walks around Treatment Team: Consulting Physician: Jett Sanders MD Thank you very much for allowing the [facility] Adult Hospitalist Service to participate in the care of this patient By: Yumiko Titus MD, 12/05/2020, 1:46 PM UNDERWRITING INTERN Primary Care Physician: Amaya Kowalski APN, HUMAN RESOURCES BENEFITS SPECIALIST RWRITING INTERN documented in this encounter Consult Notes * Jett Sanders MD - 12/05/2020 12:28 PM CSTAssociated Order(s): IP CONSULT TO NEUROLOGY NEUROLOGY CONSULT Date of Service: 12/05/2020 Assessment and Plan 1. Facial asymmetry - suspect the stroke is not likely with causing her symptoms - suspect since dental or glandular process - will get an MRI of her mandible - I do not feel it is necessary to pursue a stroke workup or start patient on aspirin or statin Reason for Consultation: facial assymetry HPI: Irma is a 40-year-old female who presents for evaluation of facial weakness. She notes that she has been having trouble with swelling in her left side of her face for some time. She has a history of Nava's palsy. She noted that when she woke up this morning she had trouble smiling where the rightside when up the left side did not. Past Medical History Positives Diagnosis Date ??? 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 ??? Anxiety ??? Asthma ??? Nava's palsy ??? Bronchitis ??? COPD (chronic obstructive pulmonary disease) ([facility]) ??? Depression ??? Heart palpitations ??? Panic attack ??? Sleep difficulties ??? Suicide attempt ([facility]) 09/2018 approx 1-2 years ago, drunk , attempt to hang self with handheld shower. No past surgical history on file. Family History Problem Relation Age of Onset ??? Heart Attack Maternal Grandfather ??? Anxiety disorder Mother ??? Hypertension Father ??? Other-comment Sister Spina Bifida ??? Seizures Brother Epilepsy Social History Tobacco Use ??? Smoking status: Current Some Day Smoker Types: Cigarettes ??? Smokeless tobacco: Never Used ??? Tobacco comment: Pt has multiple days in a row she abstains. Substance Use Topics ??? Alcohol use: Yes Alcohol/week: 3.0 oz Types: 5 Cans of beer per week Frequency: 2-4 times a month Drinks per session: 5 or 6 Binge frequency: Monthly Comment: socially Allergies Allergen Reactions ??? Doxycycline Rash ??? Bactrim [Sulfamethoxazole-Trimethoprim] Rash Prior to Admission medications Medication Sig Start Date End Date Taking? Authorizing Provider albuterol 108 (90 Base) MCG/ACT Aerosol Solution INHALE 1-2 PUFFS BY INHALATION EVERY 4 HOURS NEEDED FOR WHEEZING OR COUGH 10/23/20 Yes Fox Jesus, PAPI azithromycin (ZITHROMAX) 250 MG Tablet 2 tab(s) daily for 1 day, then 1 tab(s) daily for days 2-5. 10/15/20 Larissa Koch APN, DOUGLAS budesonide-formoterol fumarate (Symbicort) 160-4.5 MCG/ACT Aerosol take 2 Puffs by inhalation 2 times daily. 10/15/20 Yes Larissa Koch APN, DOUGLAS Fluticasone-Salmeterol 55-14 MCG/ACT AEROSOL POWDER, BREATH ACTIVATED take 1 Puff by inhalation 2 times daily. Patient not taking: Reported on 07/26/2020 08/17/19 Amaya Kowalski APN, DOUGLAS guaiFENesin-codeine (Cheratussin AC) 100-10 MG/5ML Syrup Take 5 mL by mouth every 4 hours as neededfor Cough. 10/15/20 Larissa Koch APN, DOUGLAS HYDROcodone-acetaminophen (NORCO) 5-325 MG Tablet Take 1 Tab by mouth every 8 hours as needed for Moderate or more severe pain. Patient not taking: Reported on 10/15/2020 07/26/20 Amaya Kowalski APN, CNP ibuprofen (MOTRIN) 200 MG Tablet Take 3 Tabs by mouth every 6 hours as needed for Fever. 12/26/18 Ti Ma, PAPI ibuprofen (MOTRIN) 800 MG Tablet Take 1 Tab by mouth every 8 hours. Patient not taking: Reported on 07/26/2020 09/07/19 Rajeev Huang APN, DOUGLAS ipratropium-albuterol (DUO-NEB) 0.5-2.5 (3) MG/3ML Solution 3 mL by Nebulization route 4 times daily. 04/05/20 Yes Amaya Kowlaski APN, CNP LORazepam (ATIVAN) 1 MG Tablet TAKE 1 TABLET BY MOUTH AT BEDTIME NEEDED FOR ANXIETY Patient taking differently: Take 0.5 mg by mouth 2 times daily as needed for Anxiety. 11/27/20 Yes Shahida Bianchi APN, CNP Naproxen Sodium (ALEVE PO) Take by mouth daily. Provider, MD Marivel predniSONE (DELTASONE) 10 MG Tablet Take 4 tab PO daily x 2 days, 3 tab PO daily x 2 days, 2 tab POdaily x 2 day, 1 tab PO daily x 2 days. 10/15/20 Larissa Koch APN, CNP Respiratory Therapy Supplies (NEBULIZER) Device Use 4x/day prn. 02/14/19 Yes Amaya Kowalski APN, CNP Respiratory Therapy Supplies (NEBULIZER/TUBING/MOUTHPIECE) Kit Use 4 times daily prn 02/16/19 Yes Amaya Kowalski APN, CNP triamcinolone (KENALOG) 0.1 % Cream Application Site: extremities x 4 and chest Patient not taking: Reported on 09/07/2018 07/31/18 Rajeev Huang APN, CNP venlafaxine (EFFEXOR-XR) 37.5 MG CAPSULE SR 24 HR TAKE 1 CAPSULE BY MOUTH EVERY DAY Patient not taking: Reported on 07/26/2020 07/01/20 Shahida Bianchi APN, CNP Medications Prior to Admission Medication Sig Dispense Refill ??? albuterol 108 (90 Base) MCG/ACT Aerosol Solution INHALE 1-2 PUFFS BY INHALATION EVERY 4 HOURS NEEDED FOR WHEEZING OR COUGH 6.7 Inhaler 0 ??? azithromycin (ZITHROMAX) 250 MG Tablet 2 tab(s) daily for 1 day, then 1 tab(s) daily for days 2-5. 6 Tab 0 ??? budesonide-formoterol fumarate (Symbicort) 160-4.5 MCG/ACT Aerosol take 2 Puffs by inhalation 2times daily. 1 Inhaler 0 ??? Fluticasone-Salmeterol 55-14 MCG/ACT AEROSOL POWDER, BREATH ACTIVATED take 1 Puff by inhalation2 times daily. (Patient not taking: Reported on 07/26/2020) 1 Each 1 ??? guaiFENesin-codeine (Cheratussin AC) 100-10 MG/5ML Syrup Take 5 mL by mouth every 4 hours as needed for Cough. 120 mL 0 ??? HYDROcodone-acetaminophen (NORCO) 5-325 MG Tablet Take 1 Tab by mouth every 8 hours as needed for Moderate or more severe pain. (Patient not taking: Reported on 10/15/2020) 12 Tab 0 ??? ibuprofen (MOTRIN) 200 MG Tablet Take 3 Tabs by mouth every 6 hours as needed for Fever. 20 Tab0 ??? ibuprofen (MOTRIN) 800 MG Tablet Take 1 Tab by mouth every 8 hours. (Patient not taking: Reported on 07/26/2020) 20 Tab 0 ??? ipratropium-albuterol (DUO-NEB) 0.5-2.5 (3) MG/3ML Solution 3 mL by Nebulization route 4 times daily. 360 Vial 3 ??? LORazepam (ATIVAN) 1 MG Tablet TAKE 1 TABLET BY MOUTH AT BEDTIME NEEDED FOR ANXIETY (Patienttaking differently: Take 0.5 mg by mouth 2 times daily as needed for Anxiety.) 30 Tab 0 ??? Naproxen Sodium (ALEVE PO) Take by mouth daily. ??? predniSONE (DELTASONE) 10 MG Tablet Take 4 tab PO daily x 2 days, 3 tab PO daily x 2 days, 2 tab PO daily x 2 day, 1 tab PO daily x 2 days. 20 Tab 0 ??? Respiratory Therapy Supplies (NEBULIZER) Device Use 4x/day prn. 1 Each 0 ??? Respiratory Therapy Supplies (NEBULIZER/TUBING/MOUTHPIECE) Kit Use 4 times daily prn 1 Each 0 ??? triamcinolone (KENALOG) 0.1 % Cream Application Site: extremities x 4 and chest (Patient not taking: Reported on 09/07/2018) 1 Tube 0 ??? venlafaxine (EFFEXOR-XR) 37.5 MG CAPSULE SR 24 HR TAKE 1 CAPSULE BY MOUTH EVERY DAY (Patient not taking: Reported on 07/26/2020) 90 Cap 0 Medications atorvastatin (LIPITOR) tablet 40 mg (40 mg Oral Not Given 12/05/20 0300) aspirin chewable tablet 81 mg (81 mg Oral Given 12/05/20842) Or aspirin suppository 300 mg ( Rectal See Alternative 12/05/20842) enoxaparin (LOVENOX) injection 40 mg (40 mg Subcutaneous Given 12/05/20842) 0.9 % sodium chloride solution ( Intravenous New Bag 12/05/20 0544) acetaminophen (TYLENOL) tablet 650 mg (has no administration in time range) Or acetaminophen (TYLENOL) suppository 650 mg (has no administration in time range) HYDROcodone-acetaminophen (NORCO) 5-325 MG per tablet 1 Tab (has no administration in time range) ondansetron (ZOFRAN-ODT) disintegrating tablet 4 mg (has no administration in time range) Or ondansetron (ZOFRAN) injection 4 mg (has no administration in time range) morphine sulfate (PF) injection 2 mg (has no administration in time range) aspirin suppository 300 mg (300 mg Rectal Given 12/05/20 030) potassium chloride IVPB 40 mEq 200 mL (0 mEq Intravenous Stopped 12/05/20 08) Review of Systems: A 14 point Review of Systems is obtained, and is negative other than that mentioned in the History of Present Illness. Objective: VITALS: Blood pressure 108/72, pulse 90, temperature 98.1 ??F (36.7 ??C), resp. rate 20, height 5' 3 (1.6 m), weight 132 lb 6.4 oz (60.1 kg), SpO2 99 %. Weight: Wt Readings from Last 1 Encounters: 12/05/20 132 lb 6.4 oz (60.1 kg) Body mass index is 23.45 kg/m??. EXAM: General appearance: alert, no distress, cooperative, appears stated age Head: Normocephalic, without obvious abnormality, atraumatic Heart: regular rate and rhythm, S1, S2 normal, no murmur, click, rub or gallop Extremities: extremities normal, atraumatic, no cyanosis or edema Neurologic: Mental: Fully alert and oriented to time, place, person, situation. There is no problem with concentration and attention. Verbal recall-normal. Visuospatial skills- normal. Fund of knowledge is good. Memory is good for recent and remote events. On cranial nerve exam, CN II: visual garnica are full to confrontation. Fundi are clear without hemorrhage or exudate, discs are sharp.CN III: Pupils are equal, round and reactive bilaterally; CN III,IV, extraocular movements are full with normal saccades and normal pursuits. There are no squarewave jerks. CN VIII: Hearing is intact bilaterally. CN V: Facial sensation is intact; CN VII: face is symmetric. CN IX: Palate elevates symmetrically. CN XII: Tongue is midline. CN XI: Shrug is 5/5. A motor examination was performed Muscles Tested Right Left Deltoid 5/5 5/5 Biceps 5/5 5/5 Triceps 5/5 5/5 Wrist Flexors 5/5 5/5 Wrist Extensors 5/5 5/5 Applications Chemist 5/5 5/5 Hip Flexors 5/5 5/5 Quadriceps 5/5 5/5 Hamstrings 5/5 5/5 Dorsiflexion 5/5 5/5 EHL 5/5 5/5 Sensory exam is notable for being intact to light touch. Vibration and pin prick are intact. Romberg is negative. Coordination: finger to nose normal bilaterally. DTRs are 2+ bilateral upper and lower extremities. Plantars are downgoing bilaterally Gait is normal. Normal tandem gait, normal heel and toe walking. Normal armswing and turns. Data Review: Radiology Reviewed: yes Xr Chest Single View Portable Result Date: 12/05/2020 IMPRESSION: No acute cardiopulmonary disease. Ct Head Or Brain Wo Contrast Result Date: 12/05/2020 IMPRESSION: 1. No definite evidence of acute intracranial hemorrhage. If there is clinical concern for acute ischemia, then further evaluation with MRI is recommended. Findings were discussed with Dr. Severino by Dr. Raza at 0206 hours on 12/05/2020. RWRITING INTERN documented in this encounter ED Notes * Shauna Vora RN - 12/05/2020 4:39 AM CST Report called to Will on 2 . Patient transferred to room 227 via wheelchair. Remains alert andoriented x4. Respirations non labored. Denies any pain presently. Saline lock intact right forearm. RWRITING INTERN * Shauna Vora RN - 12/05/2020 4:00 AM CST Patient is resting in room with call light at bedside. Patient informed about wait time and verbalizes understanding. Patient denies needs at this time and verbalizes understanding that RN will complete hourly rounding. RWRITING INTERN * Shauna Vora RN - 12/05/2020 3:00 AM CST Pt medicated per provider orders. Pt educated on intended effects and side effects of medication and verbalized understanding. Pt able to provide teach- back of education. A * Kris Severino MD - 12/05/2020 2:00 AM CST Chief Complaint Patient presents with ??? Facial Droop Patient is a 40-year-old female who presents emergency room complaining of right-sided facial weakness. States this started approximately 8:00 p.m. this evening which is approximately 6 hours ago. Patient states she had some blurry vision affected by both eyes. She also had bilateral frontal headache which resulted. She has similar episode thought to be related to a Nava palsy but it was different than her symptoms tonight. Patient is a smoker. Current Facility-Administered Medications Medication Dose Route Frequency Provider Last Rate Last Admin ??? atorvastatin (LIPITOR) tablet 40 mg 40 mg Oral Once Kris Sevreino MD Current Outpatient Medications Medication Sig Dispense Refill ??? albuterol 108 (90 Base) MCG/ACT Aerosol Solution INHALE 1-2 PUFFS BY INHALATION EVERY 4 HOURS NEEDED FOR WHEEZING OR COUGH 6.7 Inhaler 0 ??? azithromycin (ZITHROMAX) 250 MG Tablet 2 tab(s) daily for 1 day, then 1 tab(s) daily for days 2-5. 6 Tab 0 ??? budesonide-formoterol fumarate (Symbicort) 160-4.5 MCG/ACT Aerosol take 2 Puffs by inhalation 2times daily. 1 Inhaler 0 ??? Fluticasone-Salmeterol 55-14 MCG/ACT AEROSOL POWDER, BREATH ACTIVATED take 1 Puff by inhalation2 times daily. (Patient not taking: Reported on 07/26/2020) 1 Each 1 ??? guaiFENesin-codeine (Cheratussin AC) 100-10 MG/5ML Syrup Take 5 mL by mouth every 4 hours as needed for Cough. 120 mL 0 ??? HYDROcodone-acetaminophen (NORCO) 5-325 MG Tablet Take 1 Tab by mouth every 8 hours as needed for Moderate or more severe pain. (Patient not taking: Reported on 10/15/2020) 12 Tab 0 ??? ibuprofen (MOTRIN) 200 MG Tablet Take 3 Tabs by mouth every 6 hours as needed for Fever. (Patient not taking: Reported on 03/09/2019) 20 Tab 0 ??? ibuprofen (MOTRIN) 800 MG Tablet Take 1 Tab by mouth every 8 hours. (Patient not taking: Reported on 07/26/2020) 20 Tab 0 ??? ipratropium-albuterol (DUO-NEB) 0.5-2.5 (3) MG/3ML Solution 3 mL by Nebulization route 4 times daily. 360 Vial 3 ??? LORazepam (ATIVAN) 1 MG Tablet TAKE 1 TABLET BY MOUTH AT BEDTIME NEEDED FOR ANXIETY 30 Tab 0 ??? Naproxen Sodium (ALEVE PO) Take by mouth daily. ??? predniSONE (DELTASONE) 10 MG Tablet Take 4 tab PO daily x 2 days, 3 tab PO daily x 2 days, 2 tab PO daily x 2 day, 1 tab PO daily x 2 days. 20 Tab 0 ??? Respiratory Therapy Supplies (NEBULIZER) Device Use 4x/day prn. 1 Each 0 ??? Respiratory Therapy Supplies (NEBULIZER/TUBING/MOUTHPIECE) Kit Use 4 times daily prn 1 Each 0 ??? triamcinolone (KENALOG) 0.1 % Cream Application Site: extremities x 4 and chest (Patient not taking: Reported on 09/07/2018) 1 Tube 0 ??? venlafaxine (EFFEXOR-XR) 37.5 MG CAPSULE SR 24 HR TAKE 1 CAPSULE BY MOUTH EVERY DAY (Patient not taking: Reported on 07/26/2020) 90 Cap 0 Allergies Allergen Reactions ??? Doxycycline Rash ??? Bactrim [Sulfamethoxazole-Trimethoprim] Rash Past Medical History Positives Diagnosis Date ??? 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 ??? Anxiety ??? Asthma ??? Bronchitis ??? COPD (chronic obstructive pulmonary disease) (HCC) ??? Depression ??? Heart palpitations ??? Panic attack ??? Sleep difficulties ??? Suicide attempt (HCC) 09/2018 approx 1-2 years ago, drunk , attempt to hang self with handheld shower. No past surgical history on file. Social History Socioeconomic History ??? Marital status: Single Spouse name: n/a ??? Number of children: 2 ??? Years of education: 14 ??? Highest education level: Associate degree: academic program Occupational History ??? Not on file Social Needs ??? Financial resource strain: Not very hard ??? Food insecurity Worry: Never true Inability: Never true ??? Transportation needs Medical: No Non-medical: No Tobacco Use ??? Smoking status: Current Some Day Smoker Types: Cigarettes ??? Smokeless tobacco: Never Used ??? Tobacco comment: Pt has multiple days in a row she abstains. Substance and Sexual Activity ??? Alcohol use: Yes Alcohol/week: 3.0 oz Types: 5 Cans of beer per week Frequency: 2-4 times a month Drinks per session: 5 or 6 Binge frequency: Monthly Comment: socially ??? Drug use: Not Currently ??? Sexual activity: Yes Partners: Male control/protection: I.U.D. Lifestyle ??? Physical activity Days per week: Not on file Minutes per session: Not on file ??? Stress: Not on file Relationships ??? Social connections Talks on phone: Not on file Gets together: Not on file Attends anglican service: Not on file Active member of club or organization: Not on file Attends meetings of clubs or organizations: Not on file Relationship status: Not on file ??? Intimate partner violence Fear of current or ex partner: Not on file Emotionally abused: Not on file Physically abused: Not on file Forced sexual activity: Not on file Other Topics Concern ??? Not on file Social History Narrative Pt resides with her parents, two siblings and her two sons; sons are 18 years old and 12 years old. BP 116/74 Pulse 106 Temp (!) 96 ??F (35.6 ??C) (Tympanic) Resp 14 Ht 5' 3 (1.6 m) Wt 140lb (63.5 kg) SpO2 99% BMI 24.80 kg/m?? Review of Systems Constitutional: Negative for activity change, appetite change, chills and fever. HENT: Negative for congestion, ear pain, rhinorrhea, sore throat and trouble swallowing. Eyes: Positive for visual disturbance. Negative for pain. Respiratory: Negative for cough, shortness of breath and wheezing. Cardiovascular: Negative for chest pain. Gastrointestinal: Negative for abdominal pain, diarrhea, nausea and vomiting. Genitourinary: Negative for difficulty urinating and dysuria. Musculoskeletal: Negative for arthralgias and back pain. Skin: Negative for pallor. Neurological: Positive for facial asymmetry and headaches. Negative for weakness. Hematological: Negative for adenopathy. Psychiatric/Behavioral: Negative for confusion. All other systems reviewed and are negative. Physical Exam Vitals signs and nursing note reviewed. Constitutional: General: She is not in acute distress. Appearance: She is well-developed. She is not diaphoretic. HENT: Head: Normocephalic and atraumatic. Right Ear: External ear normal. Left Ear: External ear normal. Eyes: Conjunctiva/sclera: Conjunctivae normal. Pupils: Pupils are equal, round, and reactive to light. Neck: Musculoskeletal: Normal range of motion. Trachea: No tracheal deviation. Cardiovascular: Rate and Rhythm: Normal rate and regular rhythm. Heart sounds: Normal heart sounds. No murmur. Pulmonary: Effort: Pulmonary effort is normal. No respiratory distress. Breath sounds: Normal breath sounds. No wheezing or rales. Abdominal: General: Bowel sounds are normal. There is no distension. Palpations: Abdomen is soft. Tenderness: There is no abdominal tenderness. There is no guarding or rebound. Musculoskeletal: Normal range of motion. Skin: General: Skin is warm and dry. Neurological: Mental Status: She is alert and oriented to person, place, and time. Cranial Nerves: Cranial nerves are intact. No cranial nerve deficit or dysarthria. Sensory: Sensation is intact. Motor: Weakness (Partial Left facial) present. Coordination: Coordination is intact. Gait: Gait is intact. Comments: There is some left facial weakness that involves only the mid and lower face with sparingof the upper face noted. NIH Stroke Scale Interval: Baseline Time: 0150 Administer stroke scale items in the order listed. Record performance in each category after each subscale exam. Do not go back and change scores. Follow directions provided for each exam technique. Scores should reflect what the patient does, not what the clinician thinks the patient can do. The clinician should record answers while administering the exam and work quickly. Except where indicated, the patient should not be coached (i.e., repeated requests to patient to make a special effort). 1a Level of consciousness: 0=alert; keenly responsive 1b. LOC questions: 0 Answers both questions correctly 1c. LOC commands: 0=Performs both tasks correctly 2. Best Gaze: 0=normal 3. Visual: 0=No visual loss 4. Facial Palsy: 2=Partial paralysis (total or near total paralysis of the lower face) 5a. Motor left arm: 0=No drift, limb holds 90 (or 45) degrees for full 10 seconds 5b. Motor right arm: 0=No drift, limb holds 90 (or 45) degrees for full 10 seconds 6a. motor left le=No drift, limb holds 90 (or 45) degrees for full 10 seconds 6b Motor right le=No drift, limb holds 90 (or 45) degrees for full 10 seconds 7. Limb Ataxia: 0=Absent 8. Sensory: 0=Normal; no sensory loss 9. Best Language: 0 No Aphasia 10. Dysarthria: 0=Normal 11. Extinction and Inattention: 0=No abnormality Total: 2 Procedures Imaging Results XR CHEST SINGLE VIEW PORTABLE (Final result) Result time 12/05/20 02:24:22 Final result by Raissa Raza DO (12/05/20 02:24:22) Impression: IMPRESSION: No acute cardiopulmonary disease. Narrative: EXAM DESCRIPTION: XR CHEST SINGLE VIEW PORTABLE REASON FOR STUDY: Facial weakness. Facial weakness, right facial droop, difficulty swelling, dizziness, weakness, and bilateral pleural revision since 7 p.m. tonight. History of Nava's palsy. TECHNIQUE: Frontal radiographic view of the chest acquired. COMPARISON: 10/15/2020 FINDINGS: The heart, mediastinum, and pulmonary vasculature are grossly stable. There is no definite evidence of a pneumothorax. There is no definite evidence of focal consolidation or pleural effusion. There is a stable S-shaped scoliotic curvature of the spine with degenerative changes. THIS IS AN ELECTRONICALLY VERIFIED FINAL REPORT 12/05/2020 2:21 AM - Electronically signed by Raissa Raza D.O. PS: PS Report ID: [id number] Reading Location: [place] [address] CT HEAD OR BRAIN WO CONTRAST (Final result) Result time 12/05/20 02:10:23 Final result by Raissa Raza DO (12/05/20 02:10:23) Impression: IMPRESSION: 1. No definite evidence of acute intracranial hemorrhage. If there is clinical concern for acute ischemia, then further evaluation with MRI is recommended. Findings were discussed with Dr. Severino by Dr. Raza at 0206 hours on 12/05/2020. Narrative: EXAM DESCRIPTION: CT HEAD OR BRAIN WO CONTRAST REASON FOR STUDY: Neuro deficit, acute, stroke suspected. Possible stroke. Unknown symptoms or duration. TECHNIQUE: Axial images acquired through the brain without intravenous contrast. Images stored on PACS. Automated exposure control was used as a dose optimization technique for this examination. COMPARISON: 05/17/2020 FINDINGS: BRAIN: There is no definite evidence of acute intracranial hemorrhage. There is no definite evidence of an extra-axial fluid collection. There is no significant midline shift or focal mass effect. The ventricles are stable in size and position. CALVARIUM: No fracture. SINUSES/MASTOIDS: The visualized paranasal sinuses and bilateral mastoid air cells are grossly clear. ORBITS: No significant abnormality. OTHER: No other significant abnormality. THIS IS AN ELECTRONICALLY VERIFIED FINAL REPORT 12/05/2020 2:07 AM - Electronically signed by Raissa Raza D.O. PS: PS Report ID: [id number] Reading Location: [address] Number of Diagnoses or Management Options Amount and/or Complexity of Data Reviewed Clinical lab tests: ordered and reviewed Tests in the radiology section of CPT??: ordered and reviewed Tests in the medicine section of CPT??: ordered and reviewed Discussion of test results with the performing providers: yes Discuss the patient with other providers: yes Independent visualization of images, tracings, or specimens: yes Risk of Complications, Morbidity, and/or Mortality Presenting problems: moderate Diagnostic procedures: moderate Management options: moderate General comments: Differential diagnosis: Nava palsy, CVA Critical Care Total time providing critical care: 30-74 minutes Patient Progress Patient progress: stable Reviewed: previous chart, nursing note and vitals Interpretation: ECG, labs, x-ray and CT scan Total time providing critical care: 30-74 minutes. This excludes time spent performing separately reportable procedures and services. Consults: admitting MD and neurology ECG Report Name: Irma Seymour Age: 40 y.o. Gender: female Time:0204 Rate: 100 Rhythm: Sinus tachycardia Other Findings: Right ventricular conduction delay, normal axis, normal SC interval Clinical Impression 1. Left Lower facial weakness Patient presents with left-sided facial weakness appears to only be on the lower 2/3. There is concerned this possibly could be a stroke. CT scan was done which came back negative. A tele radiology saw the patient and concurred that this was not typical for Nava palsy. He did not recommend CTA at this time. He recommended patient be admitted for an MRI and further stroke workup if positive. Chestx-ray was also negative. Lab work was unremarkable except for slightly elevated white count of 17.81. EKG revealed normal sinus rhythm. I went over these results and suggestions with the patient who was in agreement to staying. I spoke to Jaya Simpson, mid-level hospitalist for Dr. Moore. She agreed for placing the patient in observation. RWRITING INTERN RWRITING INTERN * Shauna Vora RN - 12/05/2020 2:00 AM CST Patient returned from CT scan via wheelchair. Teleneurologist on line upon patient's return to room9. Patient presents to ED room 9 with complaint of right facial droop, difficulty swallowing, dizziness, weakness and bilateral blurred vision since about 7pm tonight. Patient states she has a history of Nava's Palsey, Hand grasps strong and equal bilaterally. Denies any loss of sensation on eitherside of her face, arms, or legs. Alert and oriented x4. PERRLA. Patient to CT scan initially via wheelchair. RWRITING INTERN documented in this encounter Miscellaneous Notes * Interdisciplinary - Ray Wan RN - 12/05/2020 10:56 PM CST Patient given AVS. Pt belonings with patient. Telemetry removed. IV removed. Pt leaving via privatevehicle. RWRITING INTERN * Plan of Care - Jossie Mcbride RN - 12/05/2020 4:18 PM CST Problem: Adult Inpatient Plan of Care Goal: Plan of Care Review Outcome: Ongoing (see interventions/notes) Flowsheets Taken 12/05/2020 1617 Progress: improving Outcome Summary: Patient passed swallow eval, pt symptoms have improved, pt waiting for MRI before discharge Does the patient need assistance with discharge and/or transitioning to the next level of care?: No, no needs anticipated Taken 12/05/2020 0830 Plan of Care Reviewed With: patient Today's Goal: Go home today Goal: Absence of Hospital-Acquired Illness or Injury Outcome: Ongoing (see interventions/notes) Goal: Optimal Comfort and Wellbeing Outcome: Ongoing (see interventions/notes) Goal: Readiness for Transition of Care Outcome: Ongoing (see interventions/notes) Goal: Rounds/Family Conference Outcome: Ongoing (see interventions/notes) Problem: Anxiety Goal: Anxiety Reduction or Resolution Outcome: Ongoing (see interventions/notes) RWRITING INTERN * Plan of Care - Sindy Colin MS CCC-MOBILE LOUNGE DRIVER - 12/05/2020 2:12 PM UNDERWRITING INTERN Speech Pathology Cognitive/Linguistic Evaluation Order received for evaluation and treat due to initiation of stroke protocol. HPI: Patient presented to the Ed on 12/05/20 with c/o right side facial weakness, frontal headach andbilaterally impaired vision that occurred six hours prior to arrival. Patient was noted have Left facial asymmetry in ED. Initial NIH=2. Chest xray unremarkable., Head CT unremarkable. Patient reported difficulty with her tongue the night before admission. Past Medical History: has a past medical history of Alcohol abuse, Anxiety, Asthma, Nava's palsy, Bronchitis, COPD (chronic obstructive pulmonary disease) ([facility]), Depression, Heart palpitations, Panicattack, Sleep difficulties, and Suicide attempt ([facility]) (09/2018). Plan of care reviewed with: patient Recommendations: ?? Discharge Recommendations: no further skilled therapy ?? Follow up at this level of care: no further skilled therapy ?? Cognitive Communication Guidelines: ?? Reduce environmental noise ?? Education regarding findings from today's evaluation and plans for therapy were provided to patient through verbal instruction. Understanding was expressed by the patient. ?? The prognosis for the patient to meet goals are fair plus based on the degree of impairment, stimulability for treatment and baseline medical condition. ?? Recommendations communicated with trawl net maker: ?? Patient presented cognitive impairment as evidenced by testing on 12/05/2020 versus baseline. ?? No further skilled intervention warranted at this time. Visit Details: Visit Timing/Type Type of visit: Evaluation Rehab Discipline: MOBILE LOUNGE DRIVER Start Time: 1345 Stop Time: 1410 Time calculation: 25 min Charge Verification (min/charge): CHANDRAKANT-1 General Information Pre Pain Level: 0 Post Pain Level: 0 Clinical Assessment: Orientation: 100% Auditory Comprehension: independent - Yes/No: 100% - Complex Yes/No: 100% - 1-2 Step directives: 100% -Understood simple information: independent - Understood complex information: independent Verbal Expression: independent -Speech Intelligibility: 100% -Automatic Speech: 100% - Responsive Namin% - Confrontation Namin% - Communicated basic wants/needs: independent - Communicated complex information (personal/medical history): independent Social Interaction: independent - Eye Contact: intact - Turn Taking: intact - Topic Maintenance: intact - Topic Initiation: intact Problem Solving/Executive Function: - Simple problem solving: intact - Abstract Reasonin/12 without assist - Deficit Awareness: decrease - Clock Drawing Test: The Cognitive Linguistic Quick Test (CLQT) was administered to assess cognition where scores 12-13 are considered WNL forgiven age. Patient score of 11/13 which indicates a min cognitive impairment. - [facility] Mental Status was administered to screen cognitive function where scores at or above 27/30 are considered WNL for given education level. Patient score of 13/30 which indicates dementia or severe cognitive impairment. Patient errors included math reasoning, auditory processing, and functional recall. Memory: - Immediate: 100% - Delayed: 20% - Functional: 0% Swallowing/Oral Motor: - oral motor: appearance of left side facial edema and right side facial asymmetry - swallowing: please refer to clinical swallow evaluation Hearing/Vision Difficulties: - vision: generally intact - hearing: generally intact Functional Outcome Measures Utilized: CLQT clock drawing test, SLUMS Patient was left upright in bed with indicated alarms after therapy with call light and phone near. SOFIYA CELAYA BS, Graduate Clinician Treatment provided jointly by Sofiya and SINDY COLIN, MS CCC-MOBILE LOUNGE DRIVER , with qualified caregiver directing care through skilled judgment and taking responsibility for assessment and treatment. I have read and agree with student documentation by Sofiya on this date. Review of documentation includes Note, Doc flow sheet and associated functions to support documentation. I was present and actively involved in all aspects of Irma Seyomur's care. SINDY COLIN MS CCC-MOBILE LOUNGE DRIVER Problem: Adult Inpatient Plan of Care Goal: [facility] MOBILE LOUNGE DRIVER GOAL Description: SLPSWALLOW Patient to be seen by Speech Therapy 3-5 times a week to address impairments and functional limitations. Treatments to include:education and facilitation of compensatory strategies Goals to be achieved by: 12/12/20 Precautions: falls, safety, full code 1- Patient to consume recommended diet/liquid consistencies without evidence of adverse effects related to dysphagia/aspiration. 2- Patient to participate in cognitive linguistic evaluation to determine further intervention needs. 3- MOBILE LOUNGE DRIVER to provide skilled verbal instruction to patient/family/staff regarding recommendations, precautions and strategies Outcome: Ongoing (see interventions/notes) RWRITING INTERN RWRITING INTERN RWRITING INTERN * Interdisciplinary - Mary Ellen Kong, PT - 12/05/2020 11:41 AM UNDERWRITING INTERN PHYSICAL THERAPY INITIAL EVALUATION AND DISCHARGE Pt. is a 40 y.o. female admitted 12/05/2020 for facial weakness. Physical Therapy was ordered on for Eval and Treat. Patient was seen 12/05/2020. Plan of Care reviewed with: patient Past Medical History: has a past medical history of Alcohol abuse, Anxiety, Asthma, Nava's palsy, Bronchitis, COPD (chronic obstructive pulmonary disease) ([facility]), Depression, Heart palpitations, Panicattack, Sleep difficulties, and Suicide attempt ([facility]) (09/2018). Past Surgical History: has no past surgical history on file. Number of Falls in the Previous Year:0 Assessment: Patient has no further questions or concerns and is aware of discharge at this time. Recommendations: ??? At discharge from acute care facility, anticipate the patient would benefit from: No further skilled PT ??? Based upon this patient's history, involved body systems, clinical presentation, and my clinical decision making, the evaluation charge for low complexity has been identified as most appropriate. ??? DME recommendations include: No device. ??? Recommendations for floor staff include ongoing ambulation with Independent ??? Post-evaluation therapy recommendations communicated with RN ??? RN is aware of patients discharge from skilled inpatient Physical Therapy. ?? All charges entered today are appropriate and separate from each other. Eval /Treat General Information Type of visit: Evaluation Rehab Discipline: PT Start Time: 1141 Stop Time: 1149 Time calculation: 8 min Billable Minute type: Evaluation Evaluation Billable Minutes: 8 Evaluation Complexity: Low Pertinent History of Current Functional Problem: Lower facial weakness Referring Physician: Ariela Aguilar Observations of Patient: Patient up in room independently upon entering. IV intact. Subjective Information: I'm feeling better Pre Pain Level: 0 Post Pain Level: 0 Existing Precautions/Restrictions: fall Safety Interventions All Alarms: none present Living Environment Lives With: parent(s), sibling(s), child(josue), dependent Living Arrangements: house Home Accessibility: stairs to enter home, ramps present at home Home Main Entrance Number of Stairs, Main Entrance: three Stair Railings, Main Entrance: none Disability/Function Prior Walking or Climbing Stairs Difficulty: none Dressing/Bathing/Toileting Difficulty: none Doing Errands Independently Difficulty (such as shopping): no(Patient reports she drives and works at [employer]. Patient reports being independent with cooking, cleaning, laundry.) Equipment Currently Used at Home: none Cognition Orientation Status (Cognition): oriented x 4 Follows Commands (Cognition): WFL ROM ROM Right Lower Extremity: RLE ROM was WNL ROM Lower Left Extremity: LLE ROM was WNL Strength Comprehensive (MMT) General Manual Muscle Testing (MMT) Assessment: no strength deficits identified Bed Mobility Bed Mobility: supine-sit, sit-supine Supine-Sit Quay (Bed Mobility): independent Sit-Supine Quay (Bed Mobility): independent Sit/Stand Transfer Level of Assistance (Sit-Stand Transfers): independent Level of Assistance (STAND/SIT): independent Gait Mobility Quay Level (Gait): independent Distance in Feet (Gait): 15 ft room mobility Balance Balance Assessment: sitting static balance, sitting dynamic balance, sit to stand dynamic balance, standing static balance, standing dynamic balance Static Sitting Balance: WFL Dynamic Sitting Balance: WFL Sit to Stand Dynamic Balance: WFL Static Standing Balance: WFL Dynamic Standing Balance: WFL Sensory Assessment (Somatosensory) Sensory Assessment (Somatosensory): LE sensation intact Functional Outcome Measure used: Basic Mobility Inpatient Short Form How much help from another person does the patient currently need??? 1. Turning from your back to your side while in a flat bed without using bedrails? 4 None 2. Moving from lying on your back to sitting on the side of a flat bed without using bedrails? 4 None 3. Moving to and from a bed to a chair (including a wheelchair)? 4 None 4. Standing up from a chair using your arms (e.g. wheelchair or bedside chair)? 4 None 5. To walk in hospital room? 4 None Raw Score: 20, Score 0.00% impaired. Patient was returned to bed with indicated alarms after therapy with call light near. MARY ELLEN KONG PT RWRITING INTERN * Plan of Care - Cheryl Mayfield RN - 12/05/2020 11:26 AM CST Case Management Comprehensive Assessment Irma's readmission risk level (if calculated) is: Patient Class: Outpatient with Observation Services Consecutive Inpatient Midnights :none - not currently inpatient class Actual day(s) of hospital stay (compare to working DRG): 1 Reason for Pulmonary Disease SpecialistDirector Agency & Strategic Partnerships: Consult for possible stroke/resources Irma is in the hospital due to: stroke rule out Prior to Admission (Support, Living Environment,ADLs IADLs, Transportation, Employment, Access to Care) Patient is a 40 yo single female with a PMHx of anxiety, chronic bronchitis, and tobacco use disorder. Patient is A&Ox4 and is able to answer all questions asked of her. 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 There are 7 people in the home including herself, her parents, her brother, disabled sister, and her 2 kids. She is active and independent in all ADL's including meals, bathing, dressing, cooking, cleaning and driving. No home DME is used. Her PCP is Amaya Kowalski APN, HUMAN RESOURCES BENEFITS SPECIALIST. Her insurance in Medicaid [place]. Her pharmacy is [facility] and has no difficulties obtaining medications. There is no advanced directive on file. Irma is not a 30 day re-hospitalization. Plan of Care (Problem/ situation/ barrier + goals/ milestones + interventions + evaluation of progress = Plan of Care) Hospital Plan: stroke work up. MRI Brain, CRP to look for any inflammatory syndrome (r/t Left side facial swelling), PT/OT, speech eval, neuro checks, I's & O's telemetry, stroke scale, labs, neuro consult Anticipated Discharge Plan: Home (no arranged services) Discharge Planning Choice Documentation, if applicable: post acute choices were not presented during this contact. SUMMARY (summary of interaction with patient/decision maker, family and interdisciplinary team) Met with Irma and introduced self and role and discussed plan of care. Patient would like to discharge today after stroke work up as she needs to take care of her kids. She is active and independent and drove herself to the hospital. Plan is to discharge with no needs. IM Letter Documentation, if applicable N/A - Payor is not Medicare Decision Maker / Lottery Sales Clerk Information Patient is medical decision-maker RWRITING INTERN * Interdisciplinary - Nellie Finn, OTRL - 12/05/2020 10:31 AM UNDERWRITING INTERN OCCUPATIONAL THERAPY INITIAL EVALUATION and DISCHARGE Assessment: Patient has no further questions or concerns and is aware of discharge at this time. Recommendations: ??? At discharge from acute care facility, anticipate the patient would benefit from: no additionalOT due to ADL independence. ??? Based upon this patient's history, involved body systems, clinical presentation, and my clinical decision making, the evaluation charge for low complexity has been identified as most appropriate. ??? DME recommendations include: No device. ??? Recommendations for floor staff include ambulate to the bathroom with Independent using No device ??? Post-evaluation therapy recommendations communicated with patient ??? RN is aware of patients discharge from skilled inpatient Occupational Therapy. ?? All charges entered today are appropriate and separate from each other. Pt. is a 40 y.o. female admitted 12/05/2020 for Lower facial weakness. Occupational Therapy was ordered on 12/05/2020 for Eval and Treat. Patient was seen 12/05/2020. Plan of Care reviewed with: patient Past Medical History: has a past medical history of Alcohol abuse, Anxiety, Asthma, Nava's palsy, Bronchitis, COPD (chronic obstructive pulmonary disease) ([facility]), Depression, Heart palpitations, Panicattack, Sleep difficulties, and Suicide attempt ([facility]) (09/2018). Past Surgical History: has no past surgical history on file. Number of Falls in the Previous Year: 0 All charges entered today are appropriate and separate from each other. OT Eval /Treat General Information Type of visit: Evaluation Rehab Discipline: OT Start Time: 1015 Stop Time: 8 Time calculation: 12 min Billable Minute type: Evaluation Evaluation Billable Minutes: 12 Evaluation Complexity: Low Pertinent History of Current Functional Problem: Lower facial weakness General Observations of Patient: Sitting up in bed Subjective Information: better Pre Pain Level: 0 Post Pain Level: 0 Existing Precautions/Restrictions: fall(safety, full code) Safety Interventions All Alarms: none present Living Environment Lives With: parent(s), sibling(s) Name(s) of Who Lives With Patient: Disabled sister/brother, and 2 kids (18 and 12 year old) Living Arrangements: house Home Accessibility: stairs to enter home, ramps present at home Living Arrangement Comments: Shares homemaking chores with family Home Main Entrance Number of Stairs, Main Entrance: three Disability/Function Prior Hearing Difficulty or Deaf: no Wear Glasses or Blind: no Walking or Climbing Stairs Difficulty: none Dressing/Bathing/Toileting Difficulty: none Doing Errands Independently Difficulty (such as shopping): no(Patient drives, patient works at [employer]) Equipment Currently Used at Home: none Cognition Affect/Mental Status (Cognitive): WFL Orientation Status (Cognition): oriented x 4 Follows Commands (Cognition): follows two step commands ROM ROM Upper Right Extremity: no ROM deficits were identified ROM Upper Left Extremity: no ROM deficits were identified Strength Comprehensive (MMT) General Manual Muscle Testing (MMT) Assessment: no strength deficits identified Bed Mobility Bed Mobility: [id number] Supine to Sit to Supine, Level of Assistance (Bed Mobility): independent Sit/Stand Transfer Level of Assistance (Sit-Stand Transfers): independent Level of Assistance (STAND/SIT): independent Toilet Transfer Type (Toilet Transfer): sit-stand, stand-sit Level of Assistance (Toilet Transfers): independent Gait Mobility Quay Level (Gait): independent Assistive Device (Gait): gait belt Distance in Feet (Gait): 15ft x 2 Balance Balance Assessment: sitting static balance, sitting dynamic balance, sit to stand dynamic balance, standing static balance, standing dynamic balance Static Sitting Balance: WNL Dynamic Sitting Balance: WNL Sit to Stand Dynamic Balance: WNL Static Standing Balance: WNL Dynamic Standing Balance: WNL BADL Assessment/Intervention: lower body dressing, grooming Lower Body Dressing Assessment/Training Quay Level (Lower Body Dressing): don, socks, independent Position (Lower Body Dressing): sitting up in bed Grooming Assessment/Training Quay Level (Grooming): wash face, hands, independent Position (Grooming): sink side General Comments: Good participation in OT evaluation, ADL and functional mobility. Modified Toombs Scale score: 0 0 No symptoms at all 1 No significant disability despite symptoms; able to carry out all usual duties and activities 2 Slight disability; unable to carry out all previous activities, but able to look after own affairs without assistance 3 Moderate disability; requiring some help, but able to walk without assistance 4 Moderately severe disability; unable to walk without assistance and unable to attend to own bodily needs without assistance 5 Severe disability; bedridden, incontinent and requiring constant nursing care and attention 6 Patient was returned to bed with indicated alarms after therapy with call light and phone near. RODRIGO CASTANO Cosigned by Yumiko Titus MD at 12/05/2020 1:35 PM UNDERWRITING INTERN RWRITING INTERN RWRITING INTERN * Plan of Care - Sindy Colin, MS CCC-MOBILE LOUNGE DRIVER - 12/05/2020 8:54 AM UNDERWRITING INTERN Speech Pathology Clinical Swallowing Evaluation Order received for clinical swallowing evaluation due to initiation of stroke protocol. HPI: Patient presented to the Ed on 12/05/20 with c/o right side facial weakness, frontal headach andbilaterally impaired vision that occurred six hours prior to arrival. Patient was noted have Left facial asymmetry in ED. Initial NIH=2. Chest xray unremarkable., Head CT unremarkable. Patient reported difficulty with her tongue the night before admission. Past Medical History: has a past medical history of Alcohol abuse, Anxiety, Asthma, Nava's palsy, Bronchitis, COPD (chronic obstructive pulmonary disease) ([facility]), Depression, Heart palpitations, Panicattack, Sleep difficulties, and Suicide attempt ([facility]) (09/2018). Positive drug screen in October 2020 for cocaine and meth No previous speech pathology intervention Plan of care reviewed with: patient Recommendations: ?? Discharge Recommendations: continue to monitor ?? Follow up at this level of care: Cognitive linguistic evaluation, Patient/family/education. ?? Diet Solids Recommendation: General/IDDSI 7 ?? Diet Liquids Recommendations: No restrictions/Thin/IDDSI 0 ?? Recommended Form of Meds: As tolerated ?? Feeding Guidelines: ?? Upright for all oral intake ?? Consistent oral intake ?? Recommendations communicated with DALTON Sethitrawl net maker: ?? Patient presented with no overt evidence of dysphagia; BUT, evidence of RIGHT facial asymmetry. Strongest to weakest predictors of aspiration pneumonia exhibited by this patient are Dependence for feeding, Dependence for oral care, More than one medical diagnosis, Number of medication prescribed, Xerostomia (dry mouth) and Reduced activity level(Langmore et al). ?? Silent aspiration cannot be excluded clinically. If concern for silent aspiration, please refer for modified barium swallow study. Visit Details: Visit Timing/Type Type of visit: Evaluation Rehab Discipline: MOBILE LOUNGE DRIVER Start Time: 829 Stop Time: 844 Time calculation: 15 min Charge Verification (min/charge): SFE-1 General Information Pre Pain Level: 0 Post Pain Level: 0 Oral Motor Oral Motor: Anomalies present Dentition: Present and adequate Secretion Management: Intact Facial musculature at rest: asymmetrical(on RIGHT) during labial retraction, Evidence of hypervascularity appearance on LEFT oral mucosa. Patient reported biting the left side of her mouth recently. Orientation: Due to correlation of orientation status and swallow function, patient was asked open ended orientation questions. Patient answered all questions accurately and independently. Liquid/Solid Trials Patient level of compliance with procedure: Acceptance Positioning: seated upright in bed independently Liquid/Solid Trials: Ice Chip Trial, Thin Liquid Trial, Puree Trial, Hard Solid Trial Oral Diagnostic Statement: intact labial seal, appearance of adequate mastication with solids, appearance of adequate timing of oral phase, complete oral cavity clearance post swallow Pharyngeal Diagnostic Statement: appearance of immediate swallowing initiation, appearance of consistent laryngeal elevation, no throat clear, no cough response To screen for aspiration, the [place] Swallow Protocol was used due to its high reliability and sensitivity. Strongest to weakest predictors of aspiration pneumonia exhibited by this patient are Dependence for oral care, More than one medical diagnosis, Number of medication prescribed, Xerostomia (dry mouth) and Reduced activity level(Charles et al). The [place] Assessment of Swallowing Ability (MASA) was utilized to assess the patient's overall swallowing function. Alertness: 10-alert Cooperation: 10-cooperative Auditory Comprehension: 10-no deficits noted Respiration: 10-no chest infection Respiratory Rate for Swallow: 5-able to control rate for swallow Aphasia: 5-no deficits Apraxia: 5-no deficits Dysarthria: 5-no deficits Saliva: 5-no deficits Lip Seal: 5-no deficits Tongue Movement: 10-full range Tongue Strength: 10-no deficits noted Tongue Coordination: 10-no deficits noted Oral Prep: 10-no deficits noted Ga-no deficits noted Palate: 10-no deficits noted Bolus Clearance: 10-fully cleared Oral Transit: 10-no deficits noted Cough Reflex: 5-no deficits noted Voluntary Cough: 10-no deficits noted Voice: 10-no deficits noted Trach: 10-no trach Pharyngeal Phase: 10-immediate laryngeal elevation Pharyngeal Response: 10-no deficits noted MASA Score: 200/200 MASA Dysphagia Severity Score: Nil abnormality detected (178-200) MASA Aspiration Risk Score: Nil abnormality detected (170-200) Education: MOBILE LOUNGE DRIVER provided skilled verbal instruction to patient regarding rationale for skilled services, s/s ofdysphagia, evaluation performance and recommendations for care. Functional Outcome Measures Utilized: CHRIS Lozada Patient was left upright in bed with indicated alarms after therapy with call light and phone near. SINDY COLIN MS CCC-MOBILE LOUNGE DRIVER Speech Language Pathologist 12/05/2020 Problem: Adult Inpatient Plan of Care Goal: [facility] MOBILE LOUNGE DRIVER GOAL Description: SLPSWALLOW Patient to be seen by Speech Therapy 3-5 times a week to address impairments and functional limitations. Treatments to include:education and facilitation of compensatory strategies Goals to be achieved by: 12/12/20 Precautions: falls, safety, full code 1- Patient to consume recommended diet/liquid consistencies without evidence of adverse effects related to dysphagia/aspiration. 2- Patient to participate in cognitive linguistic evaluation to determine further intervention needs. 3- MOBILE LOUNGE DRIVER to provide skilled verbal instruction to patient/family/staff regarding recommendations, precautions and strategies Outcome: Ongoing (see interventions/notes) RWRITING INTERN * Interdisciplinary - Ray Wan, RN - 12/05/2020 4:54 AM CST Pt arrived to the floor via wheelchair. Pt ambulated to bed with SBA. Pt appears to be in no distress at this time. Will complete admission. RWRITING INTERN documented in this encounter Plan of Treatment Upcoming Encounters Date Type Department Care Team (Late st Contact Info) Description 03/21/2025 4:30 PM CDT Office Visit [facility] - [facility] - [place] [address] [place] [address] AubreyShravan, PAC [address] [place] [address] documented as of this encounter Goals Goal Patient Goal Type Associated Problems Recent Progress Patient-Stated? Author [facility] On track(2019 9:50 AM CDT) Yes Eloise Jenkins LCPC Note: Irma reported her goal for psychotherapy is to help me be able to deal with things in the present and in her past that are contributing to low and anxious mood. Goal Reviewed with: patient Readiness to change: Thinking about making a change Department associated with goal: [facility] Steps to achieve goal: [...] that trigger mood concerns. Behavioral [facility] On track(2019 9:50 AM CDT) No Eloise Jenkins LCPC Note: Irma will engage in a plan of action to improve emotional and mental wellbeing. Goal Reviewed with: patient Readiness to change: Not yet ready to make a change Department associated with goal: [facility] Steps to achieve goal: [...] Procedure Name Priority Date/Time Associated Diagnosis Comments MRI ORBIT/FACE/NECK W/WO CONTRAST Routine 12/05/2020 7:03 PM UNDERWRITING INTERN MRI BRAIN W/WO CONTRAST Routine 12/05/2020 7:02 PM UNDERWRITING INTERN POCT GLUCOSE Routine 12/05/2020 11:06 AM UNDERWRITING INTERN ADULT TRANS THORACIC ECHO 2D COMPLETE STAT 12/05/2020 8:35 AM UNDERWRITING INTERN OT EVALUATE AND TREAT Routine 12/05/2020 4:53 AM UNDERWRITING INTERN PT EVALUATE AND TREAT Routine 12/05/2020 4:53 AM UNDERWRITING INTERN SARS-COV-2 BY MOLECULAR STAT 12/05/2020 4:03 AM UNDERWRITING INTERN POCT URINE HCG () STAT 12/05/2020 2:51 AM UNDERWRITING INTERN URINALYSIS REFLEX IF INDICATED BY ABNORMAL RESULTS STAT 12/05/2020 2:49 AM UNDERWRITING INTERN XR CHEST SINGLE VIEW PORTABLE STAT 12/05/2020 2:13 AM UNDERWRITING INTERN EKG 12 LEAD STAT 12/05/2020 2:04 AM UNDERWRITING INTERN EXTRA TUBES STAT 12/05/2020 2:03 AM UNDERWRITING INTERN HEMOGLOBIN A1C W/ ESTIMATED GLUCOSE Routine 12/05/2020 2:03 AM UNDERWRITING INTERN MINT CLARA GARCIA HEPARIN/SST TOP TUBE STAT 12/05/2020 2:03 AM UNDERWRITING INTERN GOLD TOP TUBE STAT 12/05/2020 2:03 AM UNDERWRITING INTERN BLUE TOP TUBE STAT 12/05/2020 2:03 AM UNDERWRITING INTERN LAVENDER TOP TUBE STAT 12/05/2020 2:0 3 AM UNDERWRITING INTERN CBC WITH AUTO DIFFERENTIAL STAT 12/05/2020 2:03 AM UNDERWRITING INTERN MAGNESIUM (MG) Routine 12/05/2020 2:03 AM UNDERWRITING INTERN LIPID PANEL Routine 12/05/2020 2:03 AM UNDERWRITING INTERN CMP (COMPREHENSIVE METABOLIC PANEL) STAT 12/05/2020 2:03 AM UNDERWRITING INTERN COMPLETE BLOOD COUNT (CBC) WITH DIFF STAT 12/05/2020 2:03 AM UNDERWRITING INTERN C-REACTIVE PROTEIN (CRP) QUANT Routine 12/05/2020 2:[address] HEAD OR BRAIN WO CONTRAST STAT 12/05/2020 1:59 AM UNDERWRITING INTERN POCT GLUCOSE STAT 12/05/2020 1:51 AM UNDERWRITING INTERN documented in this encounter Results * MRI ORBIT/FACE/NECK W/WO CONTRAST (12/05/2020 7:03 PM UNDERWRITING INTERN) Anatomical Region Laterality Modality Head, Neck N/A Magnetic Resonan ce 12/05/2020 8:37 PM UNDERWRITING INTERN Impressions 12/05/2020 8:39 PM UNDERWRITING INTERN IMPRESSION: ?? Findings suggestive of an early subperiosteal/periapical abscess likely associated with the left maxillary 1st molar. ??Recommend dental consultation. Narrative 12/05/2020 8:39 PM UNDERWRITING INTERN EXAM DESCRIPTION: ?? MRI ORBIT/FACE/NECK W/WO CONTRAST REASON FOR STUDY: ?? Attention to the mandable/maxila due to possible mass/abcess on the left TECHNIQUE: ??Multiplanar imaging includes non-contrasted T1, T2 fat saturation images prior to and T1 fat saturated images following administration of contrast. ??13 mL ProHance was administered via a 20 gauge right wrist. ??Stored on PACS. COMPARISON: ?? None available. FINDINGS: ??BONES: ??There is abnormal T2 hyperintense and T1 hypointense marrow signal seen within left maxillary 1st molar region with associated enhancement suggestive of a periapical abscess with associated adjacent few coal soft tissue swelling and enhancement with possible small fluid collection and cortical break suggestive of a early subperiosteal abscess. SOFT TISSUES: ??No other inflammatory changes or areas concerning for abscess. SINUSES: ??No mucosal thickening or fluid. ??No mass. NASAL CAVITY: ??Midline nasal septum. ORBITS: ??No significant abnormalities visualized. TMJ: ??Normal. MASTOIDS: ??Well-aerated. BRAIN: ??Limited view. No acute findings. OTHER: ??No other significant finding. THIS IS AN ELECTRONICALLY VERIFIED FINAL REPORT 12/05/2020 8:37 PM - Electronically signed by Colby HOU: AMEYA D: ??12/05/2020 8:37 PM T: ??12/05/2020 8:37 PM Report ID: [id number] Reading Location: ??[id number] Procedure Note Colby Delgado, DO - 12/05/2020 EXAM DESCRIPTION: MRI ORBIT/FACE/NECK W/WO CONTRAST REASON FOR STUDY: Attention to the mandable/maxila due to possible mass/abcess on the left TECHNIQUE: Multiplanar imaging includes non-contrasted T1, T2 fat saturation images prior to and T1 fat saturated images following administration of contrast. 13 mL ProHance was administered via a 20 gauge right wrist. Stored on PACS. COMPARISON: None available. FINDINGS: BONES: There is abnormal T2 hyperintense and T1 hypointense marrow signal seen within left maxillary 1st molar region with associated enhancement suggestive of a periapical abscess with associated adjacent few coal soft tissue swelling and enhancement with possible small fluid collection and cortical break suggestive of a early subperiosteal abscess. SOFT TISSUES: No other inflammatory changes or areas concerning for abscess. SINUSES: No mucosal thickening or fluid. No mass. NASAL CAVITY: Midline nasal septum. ORBITS: No significant abnormalities visualized. TMJ: Normal. MASTOIDS: Well-aerated. BRAIN: Limited view. No acute findings. OTHER: No other significant finding. THIS IS AN ELECTRONICALLY VERIFIED FINAL REPORT 12/05/2020 8:37 PM - Electronically signed by Colby Delgado MF: [email or web address] Report ID: [id number] Reading Location: [id number] IMPRESSION: Findings suggestive of an early subperiosteal/periapical abscess likely associated with the left maxillary 1st molar. Recommend dental consultation. us Jett Sanders MD [facility] MR ORDERABLES Final Resu lt * MRI BRAIN W/WO CONTRAST (12/05/2020 7:02 PM UNDERWRITING INTERN) Anatomical Region Laterality Modality Head N/A Magnetic Resonan ce 12/05/2020 8:30 PM UNDERWRITING INTERN Impressions 12/05/2020 8:33 PM UNDERWRITING INTERN IMPRESSION: ??Mildly limited exam due to motion artifact. ??No acute intracranial abnormality. ??Unremarkable MRI of the brain with and without contrast. Narrative 12/05/2020 8:33 PM UNDERWRITING INTERN EXAM DESCRIPTION: ?? MRI BRAIN W/WO CONTRAST REASON FOR STUDY: ??Right-sided facial weakness; bilateral blurry vision; frontal headaches TIA, initial exam TECHNIQUE: ??Multiplanar imaging includes noncontrast T1, T2, FLAIR, diffusion with ADC map and post contrast T1 sequences. Additional sequence(s) sensitive to blood products. ??Images stored on PACS. ?? CONTRAST TYPE/DOSE: ?? 13 mL ProHance injected via ??20 gauge right wrist COMPARISON: ?? None available. FINDINGS: ??Motion artifact limits evaluation of several of the sequences. ?? CEREBRUM: No acute hemorrhage, edema, or mass effect. ??No abnormal enhancement. WHITE MATTER: ??Normal. POSTERIOR FOSSA: ??Brainstem and cerebellum appear unremarkable. ??No abnormal enhancement. DIFFUSION IMAGING: ??No recent infarction. EXTRAAXIAL SPACES: ??No hemorrhage. ??No mass or abnormal enhancement. BRAIN VOLUME: ??Within normal limits for age. PITUITARY: ??Unremarkable. VASCULATURE: ??No flow disturbance identified. ORBITS: ??No masses. Globes normal. PARANASAL SINUSES AND MASTOIDS: ??Well-aerated with no fluid levels. No mucosa thickening. OTHER: ??No other significant finding. THIS IS AN ELECTRONICALLY VERIFIED FINAL REPORT 12/05/2020 8:30 PM - Electronically signed by Colby Delgado MF: AMEYA D: ??12/05/2020 8:30 PM T: ??12/05/2020 8:30 PM Report ID: [id number] Reading Location: ??[id number] Procedure Note Colby Delgado, DO - 12/05/2020 EXAM DESCRIPTION: MRI BRAIN W/WO CONTRAST REASON FOR STUDY: Right-sided facial weakness; bilateral blurry vision; frontal headaches TIA, initial exam TECHNIQUE: Multiplanar imaging includes noncontrast T1, T2, FLAIR, diffusion with ADC map and post contrast T1 sequences. Additional sequence(s) sensitive to blood products. Images stored on PACS. CONTRAST TYPE/DOSE: 13 mL ProHance injected via 20 gauge right wrist COMPARISON: None available. FINDINGS: Motion artifact limits evaluation of several of the sequences. CEREBRUM: No acute hemorrhage, edema, or mass effect. No abnormal enhancement. WHITE MATTER: Normal. POSTERIOR FOSSA: Brainstem and cerebellum appear unremarkable. No abnormal enhancement. DIFFUSION IMAGING: No recent infarction. EXTRAAXIAL SPACES: No hemorrhage. No mass or abnormal enhancement. BRAIN VOLUME: Within normal limits for age. PITUITARY: Unremarkable. VASCULATURE: No flow disturbance identified. ORBITS: No masses. Globes normal. PARANASAL SINUSES AND MASTOIDS: Well-aerated with no fluid levels. No mucosa thickening. OTHER: No other significant finding. THIS IS AN ELECTRONICALLY VERIFIED FINAL REPORT 12/05/2020 8:30 PM - Electronically signed by Colby Delgado MF: [email or web address] Report ID: [id number] Reading Location: [place] [id number] IMPRESSION: Mildly limited exam due to motion artifact. No acute intracranial abnormality. Unremarkable MRI of the brain with and without contrast. us Yumiko Titus MD IMG MR ORDERABLES Final Result * POCT Glucose (12/05/2020 11:06 AM UNDERWRITING INTERN) Only the most recent of2 resultswithin the time period is included. [facility] GLUCOSE,BEDSIDE POCT 91 70 - 99 mg/dL 12/05/2020 11:12 AM UNDERWRITING INTERN [facility] Blood 12/05/2020 11:0 6 AM UNDERWRITING INTERN 12/05/2020 11:12 AM UNDERWRITING INTERN None Provider POINT OF CARE TESTING Final Resu lt [facility] [place] [address] * ADULT TRANS THORACIC ECHO 2D COMPLETE (12/05/2020 8:35 AM UNDERWRITING INTERN) [facility] AV Peak Grad mmHg 9.12 mmHg RESULTING AGENCY Mean Aortic Valve Gradient (MAVG) 5 mmHg RESULTING AGENCY LV end saeed diam cm 4.19 cm RESULTING AGENCY LV end sys diam cm 2.73 cm RESULTING AGENCY Aortic Root Diam cm 3.2 cm RESULTING AGENCY LA vol index ml/m2 14 ml/m2 RESULTING AGENCY LVOT Peak Garland m/sec 1.09 m/sec RESULTING AGENCY AV Peak [place] m/sec 1.51 m/sec RESULTING AGENCY MVA by PHT cm2 5.24 cm2 RESUL TING AGENCY E/A Ratio 0.84 RESULTING AGENCY E/E' 6.7 RESULTING AGENCY AV Area (VTI) cm2 2.32 cm2 RESULTING AGENCY SEPTUM DIASTOLIC CM 0.77 cm RESULTING AGENCY PW DIASTOLIC CM 0.88 cm RESU LTING AGENCY LA VOLUME 22.1 ml RESULTING AGENCY LV EF(estimated)% 63 RESULTING AGENCY Anatomical Region Laterality Modality CARDIO N/A Ultrasound Narrative 12/05/2020 2:59 PM UNDERWRITING INTERN Transthoracic Echocardiography Report (TTE) Patient name ?SACHIN Cat ? 1980 Patient ID ([facility] [place]) ?[id number] ? Study Date12/05/2020 Technical quality: Good visualization Type of Study: TTE procedure: Adult Trans Thoracic Echo 2D Complete. Priority:STATHR: 100 bpmBP: 108/72 mmHg Conclusions Summary Normal left ventricular size, thickness and systolic function, estimated ejection fraction, 60-65%. Grade I Diastolic dysfunction. The mitral valve leaflets show normal excursion without significant stenosis or prolapse. Aortic valve appears tri-leaflet and without significant stenosis or regurgitation. Tricuspid doppler reveals trace regurgitation with calculated right ventricular systolic pressure at 24 mmHG, suggesting no hemodynamic significance. Left atrium is normal in size. Normal Right heart size and right ventricular systolic function. No evidence of pericardial effusion. Findings Mitral Valve The mitral valve leaflets show normal excursion without significant stenosis or prolapse. Aortic Valve Aortic valve appears tri-leaflet and without significant stenosis or regurgitation. Tricuspid Valve Tricuspid doppler reveals trace regurgitation with calculated right ventricular systolic pressure at 24 mmHG, suggesting no hemodynamic significance. Pulmonic Valve Pulmonary valve shows normal excursion and doppler function. Left Atrium Left atrium is normal in size. Left Ventricle Normal left ventricular size, thickness and systolic function, estimated ejection fraction, 60-65%. Grade I Diastolic dysfunction. Right Atrium Right atrium is normal in size. Right Ventricle Normal Right heart size and right ventricular systolic function. Pericardial Effusion No evidence of pericardial effusion. Miscellaneous The IVC appears normal in size with <50% respiratory variation. Valves Mitral Valve Area (PHT): 5.24 cm^2 Peak E-Wave: 0.64 m/s ?Deceleration Time: 140 msec Peak A-Wave: 0.76 m/s Peak Gradient: 1.64 mmHg P1/2t: 42 msec Tissue Doppler E' Velocity: 0.06 m/s ?E/E':6.7 A' Velocity: 0.08 m/s ?E/Lat E': 6.7 E/A Ratio: 0.84 ?E/Med E':10.1 Aortic Valve Area (continuity): 2.32 cm^2 ? Mean Velocity: 1.08 m/s Area (VTI):2.32 cm^2 ? Mean Gradient: 5 mmHg Peak Velocity: 1.51 m/s ?AV VTI: 24.8 cm Peak Gradient: 9.12 mmHg Cusp Separation: 2 cm Tricuspid Valve Peak E-Wave: 0.57 m/s Peak Gradient: 1.3 mmHg Pulmonic Valve Peak Velocity: 0.93 m/s Peak Gradient: 3.51 mmHg LVOT Peak Velocity: 1.09 m/s ? Mean Velocity: 0.68 m/s Peak Gradient: 4 mmHg ? Mean Gradient: 2 mmHg LVOT Diameter: 2 cm ? LVOT VTI: 18.3 cm Stroke Volume: 57 ml ?Stroke Volume Index: 35.19 ml/m^2 Structures Left Ventricle Diastolic Dimension: 4.19 cm ? Systolic Dimension: 2.73 cm Septum Diastolic: 0.77 cm ?Septum Systolic: 0.92 cm PW Diastolic: 0.88 cm ?PW Systolic: 1.38 cm Diastolic Length: 23.1 cm ?Systolic Length: 11.2 cm EF Calculated: 65.69% ?CI: 3.55 l/min*m^2 CO: 5.75 l/min RWT: 0.42 ?LV EDV: 51 ml FS: 34.84 % ?LV EDV Index: 31 m^2 LV Length: 7.48 cm ? LV ESV: 17.5 ml LVOT Diameter: 2 cm ?LV ESV Index: 11 m^2 Left Atrium LA Dimension: 3.3 cm ?LA Area: 12.3 cm^2 LA/Aorta: 1.03 ?LA Volume: 22.1 ml LA Systolic Pressure: 10.36 mmHg ?LA Index: 14ml/m^2 Right Atrium ? RA Area: 7.8 cm^2 Great Vessels Aorta Contractility Score LV regional wall motion: (0-Not visualized 1-Normal 1'-Hyperkinesis 2-Hypokinesis 3-Akinesis 4-Dyskinesis 5-Aneurysm) Demographics Age ?40 ? Gender ?Female Race ?Height ?62.99 in. ? Weight ?132.4 lbs. ? BMI (BSA) ? 23.46 kg/m^2 (1.62 ? m^2) Digital Media Sales Consultant ?Gerry Salomon ??Room ?227 Interpreting ? Saray Castellano MD, Referring Physician ?FACC ? Physician ?Saray Oviedo Procedure Note Nona So MD - 12/05/2020 Transthoracic Echocardiography Report (TTE) Patient name SACHIN Cat Jazmín 1980 Patient ID ([facility]) [id number] Study Date12/05/2020 Technical quality: Good visualization Type of Study: TTE procedure: Adult Trans Thoracic Echo 2D Complete. Priority:STATHR: 100 bpmBP: 108/72 mmHg Conclusions Summary Normal left ventricular size, thickness and systolic function, estimated ejection fraction, 60-65%. Grade I Diastolic dysfunction. The mitral valve leaflets show normal excursion without significant stenosis or prolapse. Aortic valve appears tri-leaflet and without significant stenosis or regurgitation. Tricuspid doppler reveals trace regurgitation with calculated right ventricular systolic pressure at 24 mmHG, suggesting no hemodynamic significance. Left atrium is normal in size. Normal Right heart size and right ventricular systolic function. No evidence of pericardial effusion. Findings Mitral Valve The mitral valve leaflets show normal excursion without significant stenosis or prolapse. Aortic Valve Aortic valve appears tri-leaflet and without significant stenosis or regurgitation. Tricuspid Valve Tricuspid doppler reveals trace regurgitation with calculated right ventricular systolic pressure at 24 mmHG, suggesting no hemodynamic significance. Pulmonic Valve Pulmonary valve shows normal excursion and doppler function. Left Atrium Left atrium is normal in size. Left Ventricle Normal left ventricular size, thickness and systolic function, estimated ejection fraction, 60-65%. Grade I Diastolic dysfunction. Right Atrium Right atrium is normal in size. Right Ventricle Normal Right heart size and right ventricular systolic function. Pericardial Effusion No evidence of pericardial effusion. Miscellaneous The IVC appears normal in size with <50% respiratory variation. Valves Mitral Valve Area (PHT): 5.24 cm^2 Peak E-Wave: 0.64 m/s Deceleration Time: 140 msec Peak A-Wave: 0.76 m/s Peak Gradient: 1.64 mmHg P1/2t: 42 msec Tissue Doppler E' Velocity: 0.06 m/s E/E':6.7 A' Velocity: 0.08 m/s E/Lat E': 6.7 E/A Ratio: 0.84 E/Med E':10.1 Aortic Valve Area (continuity): 2.32 cm^2 Mean Velocity: 1.08 m/s Area (VTI):2.32 cm^2 Mean Gradient: 5 mmHg Peak Velocity: 1.51 m/s AV VTI: 24.8 cm Peak Gradient: 9.12 mmHg Cusp Separation: 2 cm Tricuspid Valve Peak E-Wave: 0.57 m/s Peak Gradient: 1.3 mmHg Pulmonic Valve Peak Velocity: 0.93 m/s Peak Gradient: 3.51 mmHg LVOT Peak Velocity: 1.09 m/s Mean Velocity: 0.68 m/s Peak Gradient: 4 mmHg Mean Gradient: 2 mmHg LVOT Diameter: 2 cm LVOT VTI: 18.3 cm Stroke Volume: 57 ml Stroke Volume Index: 35.19 ml/m^2 Structures Left Ventricle Diastolic Dimension: 4.19 cm Systolic Dimension: 2.73 cm Septum Diastolic: 0.77 cm Septum Systolic: 0.92 cm PW Diastolic: 0.88 cm PW Systolic: 1.38 cm Diastolic Length: 23.1 cm Systolic Length: 11.2 cm EF Calculated: 65.69% CI: 3.55 l/min*m^2 CO: 5.75 l/min RWT: 0.42 LV EDV: 51 ml FS: 34.84 % LV EDV Index: 31 m^2 LV Length: 7.48 cm LV ESV: 17.5 ml LVOT Diameter: 2 cm LV ESV Index: 11 m^2 Left Atrium LA Dimension: 3.3 cm LA Area: 12.3 cm^2 LA/Aorta: 1.03 LA Volume: 22.1 ml LA Systolic Pressure: 10.36 mmHg LA Index: 14ml/m^2 Right Atrium RA Area: 7.8 cm^2 Great Vessels Aorta Contractility Score LV regional wall motion: (0-Not visualized 1-Normal 1'-Hyperkinesis 2-Hypokinesis 3-Akinesis 4-Dyskinesis 5-Aneurysm) Demographics Age 40 Gender Female Race Height 62.99 in. Weight 132.4 lbs. BMI (BSA) 23.46 kg/m^2 (1.62 m^2) Digital Media Sales Consultant Gerry Henry 227 Interpreting Saray Castellano MD, Referring Physician [facility] Physician Saray Oviedo us Jaya Simpson DRY PRESS OPERATOR, HUMAN RESOURCES BENEFITS SPECIALIST IMG ECHO ORDERABLES Conor abel Result - Final * SARS-COV-2 BY MOLECULAR (12/05/2020 4:03 AM UNDERWRITING INTERN) SARSCOV2 NOT DETECTED (Referen ce Range for this test is Not Detected ) [facility] FAST DX 12/05/2020 7:46 PM UNDERWRITING INTERN [facility] Comment:This test was perfor med by a PCR method. Other NASOPHARYNGEAL STRUCTURE / Unknown Non-Phlebotomy Collection / Unknown 12/05/2020 4:03 AM UNDERWRITING INTERN 12/05/2020 4:11 AM UNDERWRITING INTERN Narrative [facility] - 12/05/2020 7:46 PM UNDERWRITING INTERN Authorized Fact Sheets about this test for providers and patients are available at: https://www.fda.gov/medical-devices/npgouvxyy-ofudkjopmh-uelmdif-devices/emergen -us e-authorizations Kris Severino MD MICROBIOLOGY - GENERAL OR DERABLES Final Result [facility] [address] [place] [address], * POCT Urine HCG () (12/05/2020 2:51 AM UNDERWRITING INTERN) Pathologist [facility] POC URINE Negative POC URINE CONTROL Meat Clerk Pass Urine 12/05/2020 2:51 AM UNDERWRITING INTERN Kris Severino MD POINT OF CARE TESTING (MA NUAL) Final Result * (ABNORMAL) Urinalysis Reflex if Indicated by Abnormal Results (12/05/2020 2:49 AM UNDERWRITING INTERN) Pathologist [facility] SPECIFIC GRAVITY 1.005 1.003 - 1.030 12/05/2020 3:59 AM UNDERWRITING INTERN [facility] URINE PH 6.0 5.0 - 9.0 12/05/2020 3:59 AM UNDERWRITING INTERN [facility] WBC ESTERASE Negative Negative 12/05/2020 3:59 AM UNDERWRITING INTERN [facility] NITRITE Negative Negative 12/05/2020 3:59 AM UNDERWRITING INTERN [facility] PROTEIN, RANDOM URINE Negative Negative 12/05/2020 3:59 AM UNDERWRITING INTERN [facility] URINE GLUCOSE, QUAL Negative Negative 12/05/2020 3:59 AM UNDERWRITING INTERN [facility] URINE KETONES 50 mg/dL(A) Negative 12/05/2020 3:59 AM UNDERWRITING INTERN [facility] UROBILINOGEN Normal Normal mg/dL 12/05/2020 3:59 AM UNDERWRITING INTERN [facility] URINE BILIRUBIN Negative Negative 3:59 AM UNDERWRITING INTERN [facility] URINE BLOOD Negative Negative papi/ul 12/05/2020 3:59 AM UNDERWRITING INTERN [facility] URINALYSIS COLOR Yellow 12/05/19 3:59 AM UNDERWRITING INTERN [facility] URINALYSIS CLARITY Clear 12/05/2020 3:59 AM UNDERWRITING INTERN [facility] Urine URINE SPECIMEN / Unknown Non-Phlebotomy Collection / Unknown 12/05/2020 2:49 AM UNDERWRITING INTERN 12/05/2020 3:38 AM UNDERWRITING INTERN us Kris Sveerino MD URINE ORDERABLES Final Re sult [facility] [place] [address] * XR CHEST SINGLE VIEW PORTABLE (12/05/2020 2:13 AM UNDERWRITING INTERN) Anatomical Region Laterality Modality Chest N/A Digital Radiogra phy 12/05/2020 2:21 AM UNDERWRITING INTERN Impressions 12/05/2020 2:24 AM UNDERWRITING INTERN IMPRESSION: ?? No acute cardiopulmonary disease. Narrative 12/05/2020 2:24 AM UNDERWRITING INTERN EXAM DESCRIPTION: ?? XR CHEST SINGLE VIEW PORTABLE REASON FOR STUDY: ?? Facial weakness. ??Facial weakness, right facial droop, difficulty swelling, dizziness, weakness, and bilateral pleural revision since 7 p.m. tonight. ??History of Nava's palsy. TECHNIQUE: ?? Frontal radiographic view of the chest acquired. COMPARISON: ?? 10/15/2020 FINDINGS: ??The heart, mediastinum, and pulmonary vasculature are grossly stable. ??There is no definite evidence of a pneumothorax. ?? There is no definite evidence of focal consolidation or pleural effusion. There is a stable S-shaped scoliotic curvature of the spine with degenerative changes. THIS IS AN ELECTRONICALLY VERIFIED FINAL REPORT 12/05/2020 2:21 AM - Electronically signed by Raissa Raaz D.O. PS: PS D: ??12/05/2020 2:21 AM T: ??12/05/2020 2:21 AM Report ID: [id number] Reading Location: ??[id number] Procedure Note Raissa Raza DO - 12/05/2020 EXAM DESCRIPTION: XR CHEST SINGLE VIEW PORTABLE REASON FOR STUDY: Facial weakness. Facial weakness, right facial droop, difficulty swelling, dizziness, weakness, and bilateral pleural revision since 7 p.m. tonight. History of Nava's palsy. TECHNIQUE: Frontal radiographic view of the chest acquired. COMPARISON: 10/15/2020 FINDINGS: The heart, mediastinum, and pulmonary vasculature are grossly stable. There is no definite evidence of a pneumothorax. There is no definite evidence of focal consolidation or pleural effusion. There is a stable S-shaped scoliotic curvature of the spine with degenerative changes. THIS IS AN ELECTRONICALLY VERIFIED FINAL REPORT 12/05/2020 2:21 AM - Electronically signed by Raissa Raza D.O. PS: PS Report ID: [id number] Reading Location: [id number] IMPRESSION: No acute cardiopulmonary disease. Kris Severino MD IMG DIAGNOSTIC ORDERABLES Final Result * EKG 12 LEAD (12/05/2020 2:04 AM UNDERWRITING INTERN) Ventricular Rate BPM EXTERNAL EKG Atrial Rate BPM EXTERNAL EKG P-R Interval 120 ms EXTERNAL EKG QRS Duration 82 ms EXTERNAL EKG Q-T Duration 326 ms EXTERNAL EKG QTC CALCULATION 421 ms EXTERNAL EKG P [place] 46 degrees EXTERNAL EKG R [place] 31 degrees EXTERNAL EKG T [place] 46 degrees EXTERNAL EKG 12/05/2020 2:04 AM UNDERWRITING INTERN Impressions EXTERNAL EKG - 12/05/2020 10:11 AM UNDERWRITING INTERN Sinus tachycardia Septal ST abnormality is nonspecific iRBBB Comparison Summary: Descriptive differences only Summary: Borderline ECG Compared with:09/07/2019 11:13 AM Rate faster iRBBB new Confirmed by Saray Oviedo [id number] on 12/05/2020 10:11:12 AM Narrative Procedure Note Nona So MD - 12/05/2020 IMPRESSION: Sinus tachycardia Septal ST abnormality is nonspecific iRBBB Comparison Summary: Descriptive differences only Summary: Borderline ECG Compared with:09/07/2019 11:13 AM Rate faster iRBBB new Confirmed by Saray Oviedo [id number] on 12/05/2020 10:11:12 AM Kris Severino MD IMG ECG ORDERABLES Final Result Performing Organization Address City/[facility]/ZIP Co de Phone Number EXTERNAL EKG * MAGNESIUM (MG) (12/05/2020 2:03 AM UNDERWRITING INTERN) MAGNESIUM 1.9 1.8 - 2.5 mg/dL 12/05/2020 6:16 PM UNDERWRITING INTERN [facility] Blood Venipuncture / Unknown 12/05/2020 2:03 AM UNDERWRITING INTERN 12/05/2020 2:09 AM UNDERWRITING INTERN Yumiko Titus MD CHEMISTRY ORDERABLES Final Res ult Performing Organization Address City/[facility]/ZIP Co de Phone Number [facility] [address] [place] [address] * (ABNORMAL) C-Reactive Protein (CRP) Quant (12/05/2020 2:03 AM UNDERWRITING INTERN) C-REACTIVE PROTEIN 4.36(H) <0.50 mg/dL 12/05/2020 10:06 AM UNDERWRITING INTERN [facility] Blood Venipuncture / Unknown 12/05/2020 2:03 AM UNDERWRITING INTERN 12/05/2020 2:09 AM UNDERWRITING INTERN Yumiko Titus MD CHEMISTRY ORDERABLES Final Res ult Performing Organization Address [facility] Co de Phone Number [facility] [address] [place] [address] * Hemoglobin A1C (12/05/2020 2:03 AM UNDERWRITING INTERN) HGB-A1C 5.1 4.0 - 6.0 % 12/05/2020 6:37 AM UNDERWRITING INTERN [facility] Est Average Glucose 99.7 mg/dL 12/05/2020 6:37 AM UNDERWRITING INTERN [facility] Blood Venipuncture / Unknown 12/05/2020 2:03 AM UNDERWRITING INTERN 12/05/2020 2:11 AM UNDERWRITING INTERN Narrative [facility] - 12/05/2020 6:37 AM UNDERWRITING INTERN HEMOGLOBIN A1C: DIABETIC PATIENTS: WELL-CONTROLLED: ?? 6.2 - 7.0 INTERMEDIATE WELL-CONTROLLED: ??7.0 - 9.0 POORLY-CONTROLLED: ??>9.0 Jaya Simpson DRY PRESS OPERATOR, HUMAN RESOURCES BENEFITS SPECIALIST CHEMISTRY ORDERABLES Fi nal Result Performing Organization Address [facility] Co de Phone Number [facility] [address] [place] [address] * Lipid Panel (12/05/2020 2:03 AM UNDERWRITING INTERN) CHOLESTEROL 160 <=200 mg/dL 12/05/2020 6:35 AM UNDERWRITING INTERN [facility] TRIGLYCERIDES 82 <150 mg/dL 12/05/2020 6:35 AM UNDERWRITING INTERN [facility] HDL CHOLESTEROL 63.1 >40 mg/dL 6:35 AM UNDERWRITING INTERN [facility] LDL 81 5 - 130 mg/dL 12/05/2020 6:35 AM UNDERWRITING INTERN [facility] VLDL 16 5 - 55 mg/dL 12/05/2020 6:35 AM UNDERWRITING INTERN [facility] CHOL/HDL RATIO 2.5 0.0 - 4.4 12/05/2020 6:35 AM UNDERWRITING INTERN [facility] NON-HDL CHOLESTEROL 96.9 <130 mg/dL 12/05/2020 6:35 AM UNDERWRITING INTERN [facility] Blood Venipuncture / Unknown 12/05/2020 2:03 AM UNDERWRITING INTERN 12/05/2020 2:11 AM UNDERWRITING INTERN Jaya Simpson DRY PRESS OPERATOR, HUMAN RESOURCES BENEFITS SPECIALIST CHEMISTRY ORDERABLES Fi nal Result Performing Organization Address City/[facility]/ZIP Co de Phone Number [facility] [address] [place] [address] * CLARA LISA HEPARIN/SST TOP TUBE (12/05/2020 2:03 AM UNDERWRITING INTERN) Blood Venipuncture / Unknown 12/05/2020 2:03 AM UNDERWRITING INTERN 12/05/2020 2:11 AM UNDERWRITING INTERN Kris Severino MD HEMATOLOGY ORDERABLES Fin al Result Performing Organization Address City/[facility] Co de Phone Number [facility] [address] [place] [address] * Lavender Top Tube (12/05/2020 2:03 AM UNDERWRITING INTERN) Blood Venipuncture / Unknown 12/05/2020 2:03 AM UNDERWRITING INTERN 12/05/2020 2:11 AM UNDERWRITING INTERN Kris Severino MD HEMATOLOGY ORDERABLES Fin al Result [facility] [address] [place] [address] * Gold Top Tube (12/05/2020 2:03 AM UNDERWRITING INTERN) Blood Venipuncture / Unknown 12/05/2020 2:03 AM UNDERWRITING INTERN 12/05/2020 2:11 AM UNDERWRITING INTERN Kris Severino MD CHEMISTRY ORDERABLES Kaylin l Result Performing Organization Address City/[facility]/ZIP Co de Phone Number [facility] [place] [address] * Blue Top Tube (12/05/2020 2:03 AM UNDERWRITING INTERN) Blood Venipuncture / Unknown 12/05/2020 2:03 AM UNDERWRITING INTERN 12/05/2020 2:11 AM UNDERWRITING INTERN Kris Severino MD HEMATOLOGY ORDERABLES Fin al Result Performing Organization Address City/[facility]/ZIP Co de Phone Number [facility] [place] [address] * (ABNORMAL) CBC with Auto Differential (12/05/2020 2:03 AM UNDERWRITING INTERN) WBC 17.81(H) 4.00 - 12.00 10(3)/mcL 12/05/2020 2:13 AM UNDERWRITING INTERN [facility] RBC 4.64 3.80 - 5.30 10(6)/mcL 12/05/2020 2:13 AM [facility] HEMOGLOBIN (HGB) 14.7 12.0 - 15.8 g/dL 12/05/2020 2:13 AM [facility] HEMATOCRIT (HCT) 44.2 36.0 - 47.0 % 12/05/2020 2:13 AM UNDERWRITING INTERN [facility] MCV 95.3 82.0 - 96.0 fL 12/05/2020 2:13 AM UNDERWRITING INTERN [facility] MCH 31.7 26.0 - 34.0 pg 12/05/2020 2:13 AM UNDERWRITING INTERN [facility] MCHC 33.3 31.0 - 36.0 g/dL 12/05/2020 2:13 AM UNDERWRITING INTERN [facility] PLATELET COUNT 247 140 - 440 10(3)/mcL 12/05/2020 2:13 AM UNDERWRITING INTERN [facility] RDW 12.4 11.8 - 15.5 % 12/05/2020 2:13 AM [facility] MPV 12.0 9.7 - 12.4 fL 12/05/2020 2:13 AM [facility] NEUTROPHILS 72.2 47.0 - 73.0 % 12/05/2020 2:13 AM [facility] LYMPHOCYTES 18.7 18.0 - 42.0 % 12/05/2020 2:13 AM [facility] MONOCYTES 8.1 4.0 - 12.0 % 12/05/2020 2:13 AM [facility] EOSINOPHILS 0.8 0.0 - 5.0 % 12/05/2020 2:13 AM [facility] BASOPHILS 0.2 0.0 - 1.0 % 12/05/2020 2:13 AM [facility] ABSOLUTE NEUTROPHILS 12.85(H) 1.60 - 7.70 10(3)/[facility] 12/05/2020 2:13 AM [facility] ABSOLUTE LYMPHOCYTES 3.33(H) 1.30 - 3.20 10(3)/[facility] 12/05/2020 2:13 AM [facility] ABSOLUTE MONOCYTES 1.45(H) 0.20 - 1.00 10(3)/[facility] 12/05/2020 2:13 AM [facility] ABSOLUTE EOSINOPHIL 0.14 0.00 - 0.40 10(3)/[facility] 12/05/2020 2:13 AM [facility] ABSOLUTE BASOPHILS 0.04 0.00 - 0.10 10(3)/[facility] 12/05/2020 2:13 AM [facility] NRBC PER 100 WBC 0 12/05/19 2:13 AM [facility] Blood Venipuncture / Unknown 12/05/2020 2:03 AM UNDERWRITING INTERN 12/05/2020 2:10 AM UNDERWRITING INTERN us Kris Severino MD HEMATOLOGY ORDERABLES Fin al Result [facility] [place] [address] * (ABNORMAL) Comprehensive Metabolic Panel (CMP) (12/05/2020 2:03 AM UNDERWRITING INTERN) SODIUM 130(L) 136 - 144 mmol/L 12/05/2020 2:34 AM UNDERWRITING INTERN [facility] POTASSIUM 3.3(L) 3.5 - 5.1 mmol/L 12/05/2020 2:34 AM [facility] CHLORIDE 95(L) 100 - 110 mmol/L 12/05/2020 2:34 AM [facility] CO2, VENOUS 21(L) 22 - 32 mmol/L 12/05/2020 2:34 AM [facility] ANION GAP 17.3 8.0 - 20.0 mmol/L 12/05/2020 2:34 AM [facility] GLUCOSE 94 70 - 99 mg/dL 12/05/2020 2:34 AM [facility] BUN 14 6 - 20 mg/dL 12/05/2020 2:34 AM [facility] CREATININE, BLOOD 0.73 0.60 - 1.10 mg/dL 12/05/2020 2:34 AM [facility] BUN/CREATININE RATIO 19 12 - 20 ratio 12/05/2020 2:34 AM [facility] TOTAL PROTEIN 8.2 6.0 - 8.3 g/dL 12/05/2020 2:34 AM [facility] ALBUMIN 4.6 3.5 - 5.2 g/dL 12/05/2020 2:34 AM [facility] Comment: The colormetric methods used for the determination of Albumin may lead to falsely elevated test results in patients suffering from renal failure or insufficiency due to interference with other proteins. A/G RATIO 1.3 1.0 - 2.0 12/05/2020 2:34 AM [facility] CALCIUM 9.4 8.9 - 10.3 mg/dL 12/05/2020 2:34 AM UNDERWRITING INTERN [facility] T BILI 0.9 <=1.2 mg/dL 12/05/2020 2:34 AM UNDERWRITING INTERN [facility] SGOT (AST) 24 <=32 U/L 12/05/2020 2:34 AM UNDERWRITING INTERN [facility] SGPT (ALT) 8 <=41 U/L 12/05/2020 2:34 AM UNDERWRITING INTERN [facility] ALKALINE PHOSPHATASE 91 35 - 105 U/L 12/05/2020 2:34 AM UNDERWRITING INTERN [facility] GFR, EST. NONAFRICAN >60 >=60 12/05/2020 2:34 AM UNDERWRITING INTERN [facility] GFR, EST. >60 >=60 021 2:34 AM UNDERWRITING INTERN [facility] Comment: Creatinine Clearance is the preferred criteria for selecting drug dose adjustments in renally impaired patients. ??The GFR is provided as additional pertinent clinical information. GFR is reported in mL/min/1.73 sq m. Blood Venipuncture / Unknown 12/05/2020 2:03 AM UNDERWRITING INTERN 12/05/2020 2:09 AM UNDERWRITING INTERN Kris Severino MD CHEMISTRY ORDERABLES Kaylin l Result [facility] [address] [place] [address] * CT HEAD OR BRAIN WO CONTRAST (12/05/2020 1:59 AM UNDERWRITING INTERN) Anatomical Region Laterality Modality Head N/A Computed Tomogra phy 12/05/2020 2:07 AM UNDERWRITING INTERN Impressions 12/05/2020 2:10 AM UNDERWRITING INTERN IMPRESSION: ?? 1. ??No definite evidence of acute intracranial hemorrhage. ??If there is clinical concern for acute ischemia, then further evaluation with MRI is recommended. Findings were discussed with Dr. Severino by Dr. Raza at 0206 hours on 12/05/2020. Narrative 12/05/2020 2:10 AM UNDERWRITING INTERN EXAM DESCRIPTION: ?? CT HEAD OR BRAIN WO CONTRAST REASON FOR STUDY: ?? Neuro deficit, acute, stroke suspected. ?? Possible stroke. ??Unknown symptoms or duration. TECHNIQUE: ??Axial images acquired through the brain without intravenous contrast. ??Images stored on PACS. ?? Automated exposure control was used as a dose optimization technique for this examination. COMPARISON: ?? 05/17/2020 FINDINGS: ??BRAIN: ??There is no definite evidence of acute intracranial hemorrhage. ??There is no definite evidence of an extra-axial fluid collection. ??There is no significant midline shift or focal mass effect. ??The ventricles are stable in size and position. CALVARIUM: ??No fracture. SINUSES/MASTOIDS: ??The visualized paranasal sinuses and bilateral mastoid air cells are grossly clear. ORBITS: ??No significant abnormality. OTHER: ??No other significant abnormality. THIS IS AN ELECTRONICALLY VERIFIED FINAL REPORT 12/05/2020 2:07 AM - Electronically signed by Raissa Raza D.O. PS: PS D: ??12/05/2020 2:07 AM T: ??12/05/2020 2:07 AM Report ID: [id number] Reading Location: ??[id number] Procedure Note Raissa Raza DO - 12/05/2020 EXAM DESCRIPTION: CT HEAD OR BRAIN WO CONTRAST REASON FOR STUDY: Neuro deficit, acute, stroke suspected. Possible stroke. Unknown symptoms or duration. TECHNIQUE: Axial images acquired through the brain without intravenous contrast. Images stored on PACS. Automated exposure control was used as a dose optimization technique for this examination. COMPARISON: 05/17/2020 FINDINGS: BRAIN: There is no definite evidence of acute intracranial hemorrhage. There is no definite evidence of an extra-axial fluid collection. There is no significant midline shift or focal mass effect. The ventricles are stable in size and position. CALVARIUM: No fracture. SINUSES/MASTOIDS: The visualized paranasal sinuses and bilateral mastoid air cells are grossly clear. ORBITS: No significant abnormality. OTHER: No other significant abnormality. THIS IS AN ELECTRONICALLY VERIFIED FINAL REPORT 12/05/2020 2:07 AM - Electronically signed by Raissa Raza D.O. PS: PS Report ID: [id number] Reading Location: [id number] IMPRESSION: 1. No definite evidence of acute intracranial hemorrhage. If there is clinical concern for acute ischemia, then further evaluation with MRI is recommended. Findings were discussed with Dr. Severino by Dr. Raza at 0206 hours on 12/05/2020. Kris Severino MD IMG CT ORDERABLES Final R esult documented in this encounter Visit Diagnoses Diagnosis Left Lower facial weakness- Primary Tobacco use disorder Leukocytosis Leukocytosis, unspecified BMI 26.0-26.9,adult Body Mass Index 26.0-26.9, adult Facial asymmetry Congenital musculoskeletal deformities of skull, face, and jaw Apical abscess Periapical abscess without sinus documented in this encounter Administered Medications Inactive Administered Medications - up to 3 most recent administrations Medication Order MAR Action Action Date Dose Rate Site 0.9 % sodium chloride solution at 100 mL/hr, Intravenous, CONTINUOUS, Starting on Cassandra 12/05/20 at 0530, Until Cassandra 12/05/20 at 1746 New Bag 12/05/2020 5:44 AM UNDERWRITING INTERN 100 mL/hr acetaminophen (TYLENOL) suppository 650 mg 650 mg, Rectal, EVERY 4 HOURS PRN, Starting on Cassandra 12/05/20 at 0454, Until Wed12/06/20 at 0059, Mild pain or more severe pain if patient requests, Fever, If patient is taking oral intake without complications and both PO/SC orders are active, administer through the oral route. acetaminophen (TYLENOL) tablet 650 mg 650 mg, Oral, EVERY 4 HOURS PRN, Starting on Cassandra 12/05/20 at 0454, Until Wed12/06/20 at 0059, Mild pain or more severe pain if patient requests, Fever, If patient is taking oral intake without complications and both PO/SC orders are active, administer through the oral route. aspirin chewable tablet 81 mg 81 mg, Oral, DAILY, First dose on Cassandra 12/05/20 at 0900, Until Discontinued Given 12/05/2020 8:43 AM UNDERWRITING INTERN 81 mg aspirin suppository 300 mg 300 mg, Rectal, ONCE, 1 dose, On Cassandra 12/05/20 at 0300 Given 12/05/2020 3:00 AM UNDERWRITING INTERN 300 mg aspirin suppository 300 mg 300 mg, Rectal, DAILY, First dose on Cassandra 12/05/20 at 0900, Until Discontinued enoxaparin (LOVENOX) injection 40 mg 40 mg, Subcutaneous, EVERY 24 HOURS SCHEDULED (Daily), First dose on Cassandra 12/05/20 at 0900, Until Discontinued, Upon new order verification, pharmacy to adjust enoxaparin dose for creatinine clearance less than 30 mL/minIndications:Prophylax is of Venous Thromboembolism Given 12/05/2020 8:43 AM UNDERWRITING INTERN 40 mg Left Abdomen gadoteridol (PROHANCE) injection 13 mL 13 mL, Intravenous, ONCE, 1 dose, On Cassandra 12/05/20 at 1930 Given 12/05/2020 6:10 PM UNDERWRITING INTERN 13 mL HYDROcodone-acetaminophen (NORCO) 5-325 MG per tablet 1 Tab 1 Tablet, Oral, EVERY 4 HOURS PRN, Starting on Cassandra 12/05/20 at 0454, Until Wed12/06/20 at 0059, Moderate pain or more severe pain if patient requests, Maximum dose of acetaminophen is 4000 mg from all sources in 24 hours.If pain not effectively managed, then contact provider to discuss possibly 1) adding scheduled opioid dosing or non-opioid pain treatments, 2) increasing dosage, or 3) changing to CHIEF ORDER DISPATCHER. morphine sulfate (PF) injection 2 mg 2 mg, Intravenous, EVERY 3 HOURS PRN, Starting on Cassandra 12/05/20 at 0456, Until Wed12/06/20 at 0059, Severe pain ondansetron (ZOFRAN) injection 4 mg 4 mg, Intravenous, EVERY 12 HOURS PRN, Starting on Cassandra 12/05/20 at 0455, Until Wed12/06/20 at 0059, Nausea - 1st line, 1. First Line Antiemetic. 2. Use Injection only if patient unable to tolerate oral medications. ondansetron (ZOFRAN-ODT) disintegrating tablet 4 mg 4 mg, Oral, EVERY 12 HOURS PRN, Starting on Cassandra 12/05/20 at 0455, Until Wed12/06/20 at 0059, Nausea - 1st line, 1. First Line Antiemetic. 2. Use PO form unless unable to tolerate PO medications, then use Injection potassium chloride IVPB 40 mEq 200 mL 40 mEq, Intravenous, ONCE, 1 dose, On Cassandra 12/05/20 at 0530 New Bag 12/05/2020 5:45 AM UNDERWRITING INTERN 40 mEq potassium chloride SA (KLORCON M) tablet 40 mEq 40 mEq, Oral, ONCE, 1 dose, On Cassandra 12/05/20 at 1830, Do not crush. Given 12/05/2020 7:01 PM UNDERWRITING INTERN 40 mEq documented in this encounter Active and Recently Administered Medications Times are shown in UNDERWRITING INTERN. Scheduled Medication Order 12/03/2020 12/04/2020 12/05/2020 aspirin chewable tablet 81 mg(Linked Group 1) 81 mg, Oral, DAILY, First dose on Cassandra 12/05/20 at 0900, Until Discontinued 0843 (Given - Provid er: Jossie Mcbride RN) aspirin suppository 300 mg (COMPLETED) 300 mg, Rectal, ONCE, 1 dose, On Cassandra 12/05/20 at 0300 0300 (Given - Provid er: Shauna Vora RN) aspirin suppository 300 mg(Linked Group 1) 300 mg, Rectal, DAILY, First dose on Cassandra 12/05/20 at 0900, Until Discontinued 0843 (See Alternativ e - Provider: Jossie Mcbride RN) atorvastatin (LIPITOR) tablet 40 mg 40 mg, Oral, ONCE, 1 dose, On Cassandra 12/05/20 at 0300 0300 (Not Given - Pr ovider: Shauna Vora RN - Reason: Contraindicated - Comment: Patient is NPO due to failing swallowing screen.) enoxaparin (LOVENOX) injection 40 mg 40 mg, Subcutaneous, EVERY 24 HOURS SCHEDULED (Daily), First dose on Cassandra 12/05/20 at 0900, Until Discontinued, Upon new order verification, pharmacy to adjust enoxaparin dose for creatinine clearance less than 30 mL/min 0843 (Given - Provid er: Jossie Mcbride RN) gadoteridol (PROHANCE) injection 13 mL (COMPLETED) 13 mL, Intravenous, ONCE, 1 dose, On Cassandra 12/05/20 at 1930 1810 (Given - Provid er: Salomon Belcher, RTR) potassium chloride IVPB 40 mEq 200 mL (COMPLETED) 40 mEq, Intravenous, ONCE, 1 dose, On Cassandra 12/05/20 at 0530 0545 (New Bag - Prov ider: Ray Wan RN)0842 (Stopped - Provider: Jossie Mcbride RN) potassium chloride SA (KLORCON M) tablet 40 mEq (COMPLETED) 40 mEq, Oral, ONCE, 1 dose, On Cassandra 12/05/20 at 1830, Do not crush. 1901 (Given - Provid er: Jossie Mcbride RN) Continuous Medication Order 12/03/2020 12/04/2020 12/05/2020 0.9 % sodium chloride solution (CANCELED) at 100 mL/hr, Intravenous, CONTINUOUS, Starting on Cassandra 12/05/20 at 0530, Until Cassandra 12/05/20 at 1746 0544 (New Bag - Prov ider: Ray Wan RN)1848 (Stopped - Provider: Jossie Mcbride RN) PRN Medication Order 12/03/2020 12/04/2020 12/05/2020 acetaminophen (TYLENOL) suppository 650 mg(Linked Group 2) 650 mg, Rectal, EVERY 4 HOURS PRN, Starting on Cassandra 12/05/20 at 0454, Until Wed12/06/20 at 0059, Mild pain or more severe pain if patient requests, Fever, If patient is taking oral intake without complications and both PO/SC orders are active, administer through the oral route. acetaminophen (TYLENOL) tablet 650 mg(Linked Group 2) 650 mg, Oral, EVERY 4 HOURS PRN, Starting on Cassandra 12/05/20 at 0454, Until Wed12/06/20 at 0059, Mild pain or more severe pain if patient requests, Fever, If patient is taking oral intake without complications and both PO/SC orders are active, administer through the oral route. HYDROcodone-acetaminophen (NORCO) 5-325 MG per tablet 1 Tab 1 Tablet, Oral, EVERY 4 HOURS PRN, Starting on Cassandra 12/05/20 at 0454, Until Wed12/06/20 at 0059, Moderate pain or more severe pain if patient requests, Maximum dose of acetaminophen is 4000 mg from all sources in 24 hours.If pain not effectively managed, then contact provider to discuss possibly 1) adding scheduled opioid dosing or non-opioid pain treatments, 2) increasing dosage, or 3) changing to CHIEF ORDER DISPATCHER. morphine sulfate (PF) injection 2 mg 2 mg, Intravenous, EVERY 3 HOURS PRN, Starting on Cassandra 12/05/20 at 0456, Until Wed12/06/20 at 0059, Severe pain ondansetron (ZOFRAN) injection 4 mg(Linked Group 3) 4 mg, Intravenous, EVERY 12 HOURS PRN, Starting on Cassandra 12/05/20 at 0455, Until Wed12/06/20 at 0059, Nausea - 1st line, 1. First Line Antiemetic. 2. Use Injection only if patient unable to tolerate oral medications. ondansetron (ZOFRAN-ODT) disintegrating tablet 4 mg(Linked Group 3) 4 mg, Oral, EVERY 12 HOURS PRN, Starting on Wed12/05/20 at 0455, Until Wed12/06/20 at 0059, Nausea - 1st line, 1. First Line Antiemetic. 2. Use PO form unless unable to tolerate PO medications, then use Injection Linked Groups Order Group 1: aspirin chewable tablet 81 mgJump to med 81 mg, Oral, DAILY, First dose on Wed12/05/20 at 0900, Until Discontinued Or aspirin suppository 300 mgJump to med 300 mg, Rectal, DAILY, First dose on Wed12/05/20 at 0900, Until Discontinued Group 2: acetaminophen (TYLENOL) tablet 650 mgJump to med 650 mg, Oral, EVERY 4 HOURS PRN, Starting on Wed12/05/20 at 0454, Until Wed12/06/20 at 0059, Mild pain or more severe pain if patient requests, Fever, If patient is taking oral intake without complications and both PO/SC orders are active, administer through the oral route. Or acetaminophen (TYLENOL) suppository 650 mgJump to med 650 mg, Rectal, EVERY 4 HOURS PRN, Starting on Cassandra 12/05/20 at 0454, Until Wed12/06/20 at 0059, Mild pain or more severe pain if patient requests, Fever, If patient is taking oral intake without complications and both PO/SC orders are active, administer through the oral route. Group 3: ondansetron (ZOFRAN-ODT) disintegrating tablet 4 mgJump to med 4 mg, Oral, EVERY 12 HOURS PRN, Starting on Wed12/05/20 at 0455, Until Wed12/06/20 at 0059, Nausea - 1st line, 1. First Line Antiemetic. 2. Use PO form unless unable to tolerate PO medications, then use Injection Or ondansetron (ZOFRAN) injection 4 mgJump to med 4 mg, Intravenous, EVERY 12 HOURS PRN, Starting on Cassandra 12/05/20 at 0455, Until 12/06/20 at 0059, Nausea - 1st line, 1. First Line Antiemetic. 2. Use Injection only if patient unable to tolerate oral medications. documented in this encounter Additional Health Concerns Assessment Noted Time PHQ-9 Depression Total Score: 13 020 2:00 PM CDT documented as of this encounter Care Teams Hydraulic Oil Tool Operator Relationship Specialty Start Date End Date Amaya Kowalski, DRY PRESS OPERATOR, HUMAN RESOURCES BENEFITS SPECIALIST [address] [place] [address] PCP - General Advanced Practice Nurse 06/10/18 documented as of this encounter
--- OUTSIDE RECORDS SUMMARY | 2024-11-30 17:22 | XMS_ITS | Encounter Summary ---
Author Organization [facility] Address [address] [place] [address] Phone Care Team Providers Care Commercial Loan Reviewer Name Role Phone Amaya Kowalski APRN, DIRECTOR OF SALES Primary Care Provider Sravani Ramsay MD Primary Care Provider + [phone] Arnold Roberts MD Unavailable Shravan Burgos Primary Care Provider + [phone] Reason for Visit * Reason Comments Medication Refill Encounter Details Date Type Department Care Team ([facility] Contact Info) Description 11/27/2020 Refill [facility] - Primary Care - [place] [address] [place] [address] Fox Jesus, PAPI Medication Refill Social History Tobacco Use Types [...] have Coronavirus / COVID-19? No / Unsure 11/04/2020 1:11 PM CLOTH PRESSER documented as of this encounter Miscellaneous Notes * Telephone Encounter - Shena Romo RN - 11/27/2020 11:11 AM CST Medication failed the protocol, provider to review and approve the medication order if appropriate. Requested Prescriptions Pending Prescriptions Disp Refills LORazepam (ATIVAN) 1 MG Tablet [Pharmacy Med Name: LORAZEPAM 1 MG TABLET] 30 Tab 0 Sig: TAKE 1 TABLET BY MOUTH AT BEDTIME NEEDED FOR ANXIETY Not Delegated - Anesthesia: Anesthetics & Sedatives Failed - 11/27/2020 11:10 AM Failed - This refill cannot be delegated Passed - Valid encounter within last 6 months Past Office Visits Recent Outpatient Visits 4 months ago Injury of left foot, initial encounter [facility] Amaya Kowalski APN, DIRECTOR OF SALES 7 months ago Moderate episode of recurrent major depressive disorder (HCC) [facility] - Amaya Yoder APN, DIRECTOR OF SALES [address] [facility] - Amaya Yoder APN, DIRECTOR OF SALES 1 year ago Chronic bronchitis with productive mucopurulent cough (HCC) [facility] - Fox Conde PAC 1 year ago Chronic bronchitis, unspecified chronic bronchitis type (HCC) [facility] - Amaya Yoder APN, DIRECTOR OF SALES Upcoming Appointments STACKER OPERATOR - Recent and Past Visits Recent Visits Date Type Provider Dept 07/26/20 Office Visit Amaya Kowalski APN, [facility] 04/05/20 Office Visit Amaya Kowalski APN, DIRECTOR OF SALES [facility] [place] Showing recent visits within past 460 days with a meds authorizing provider and meeting all other requirements Future Appointments No visits were found meeting these conditions. Showing future appointments within next 90 days with a meds authorizing provider and meeting all other requirements H PRESSER documented in this encounter Plan of Treatment Upcoming Encounters Date Type Department Care Team (Late st Contact Info) Description 03/21/2025 4:30 PM CDT Office Visit [facility] - Primary Care - [place] [address] [place] [address] Shravan Burgos PAC [address] [place] [address] documented as of this encounter Goals Goal Patient Goal Type Associated Problems Recent Progress Patient-Stated? Author Behavioral [facility] On track(2019 9:50 AM CDT) Yes Eloise Jenkins LCPC Note: Irma reported her goal for psychotherapy is to help me be able to deal with things in the present and in her past that are contributing to low and anxious mood. Goal Reviewed with: patient Readiness to change: Thinking about making a change Department associated with goal: [facility] Steps to achieve [...] a change Department associated with goal: [facility] Steps to achieve [...] - 19 11/26/2022 11/26/2022 11/26/2022 4:47 PM CLOTH PRESSER COVID - 19 11/26/2022 11/26/2022 12/06/2022 12:1 9 AM CLOTH PRESSER Assessment Noted Time PHQ-9 Depression Total Score: 13 020 2:00 PM CDT documented as of this encounter Care Teams Commercial Loan Reviewer Relationship Specialty Start Date End Date Amaya Kowalski, MECHANIST, DIRECTOR OF SALES [address] [place] [address] PCP - General Advanced Practice Nurse 06/10/18 04/22/23 Sravani Ramsay MD [address] [place] [address] PCP - General Family Medicine 04/23/23 12/30/23 Shravan Burgos PAC [address] [place] [address] PCP - General Physician Flour Blender Helper 12/31/23 Arnold Roberts MD [address] [place] [address] Consulting Physician Pulmonary Disease 07/26/23 documented as of this encounter
--- OUTSIDE RECORDS SUMMARY | 2024-11-30 17:22 | XMS_ITS | Encounter Summary ---
Author Organization [employer] Care Team Providers Care Jack Strip Assembler Name Role Phone Amaya Kowalski APRN, NET DEVELOPER Primary Care Provider Encounter Details Date Type Department Care Team (Latest Contact Info) Description 11/04/2020 Travel Social History Tobacco Use Types Packs/Day [...] COVID-19? No / Unsure 11/04/2020 1:11 PM HOSPICE SPIRITUAL CARE COORDINATOR documented as of this encounter Plan of Treatment Upcoming Encounters Date Type Department Care Team (Late st Contact Info) Description 03/21/2025 4:30 PM CDT Office Visit [facility] - Primary Care - [place] [address] [place] [address] Shravan Burgos, PAC [address] [place] [address] documented as of this encounter Goals Goal Patient Goal Type Associated Problems Recent Progress Patient-Stated? Author [facility] On track(2019 9:50 AM CDT) Yes [...] (current and past) that trigger mood concerns. [facility] On track(2019 9:50 [...] documented as of this encounter Care Teams Jack Strip Assembler Relationship Specialty Start Date End Date Amaya Kowalski APRN, NET DEVELOPER [address] [place] [address] PCP - General Advanced Practice Nurse 06/10/18 documented as of this encounter
--- OUTSIDE RECORDS SUMMARY | 2024-11-30 17:23 | XMS_ITS | Encounter Summary ---
Author Organization [facility] Address [address] [place] [address] Phone Care Team Providers Care Training Director Name Role Phone Amaya Kowalski APRN, OPERATIONS SUPPORT SPECIALIST Primary Care Provider Sravani Ramsay MD Primary Care Provider [phone] Arnold Roberts MD Unavailable Shravan Burgos Primary Care Provider + [phone] Reason for Visit * Reason Comments Medication Refill Encounter Details Date Type Department Care Team ([facility] Contact Info) Description 10/24/2020 Refill [facility] - Primary Care - [place] [address] [place] [address] Amaya Kowalski APRN, OPERATIONS SUPPORT SPECIALIST [address] [place] [address] Medication Refill Social History Tobacco [...] suspected to have Coronavirus / COVID-19? Yes 10/15/2020 10:41 AM BUILDING ARCHITECTURAL DESIGNER documented as of this encounter Miscellaneous Notes * Telephone Encounter - Latia Garcia CMA - 10/25/2020 7:57 AM CST This medication was already order. Please refused. DING ARCHITECTURAL DESIGNER documented in this encounter Plan of Treatment Upcoming Encounters Date Type Department Care Team (Late st Contact Info) Description 03/21/2025 4:30 PM CDT Office Visit [facility] - Primary Care - [place] [address] [place] [address] Shravan Burgos PAC [address] [place] [address] documented as of this [...] making a change Department associated with goal: [facility] Steps [...] track(2019 9:50 AM CDT) No Eloise Jenkins, PEST CONTROL APPLICATOR Note: Irma will engage in a plan of action to improve emotional and mental wellbeing. Goal Reviewed with: patient Readiness to change: Not yet ready to make a change Department associated with goal: [facility] Steps [...] - 19 11/26/2022 11/26/2022 11/26/2022 4:47 PM BUILDING ARCHITECTURAL DESIGNER COVID - 19 11/26/2022 11/26/2022 12/06/2022 12:1 9 AM BUILDING ARCHITECTURAL DESIGNER Assessment Noted Time PHQ-9 Depression Total Score: 13 020 2:00 PM CDT documented as of this encounter Care Teams Training Director Relationship Specialty Start Date End Date Amaya Kowalski, CODING VALIDATOR, OPERATIONS SUPPORT SPECIALIST [address] [place] [address] PCP - General Advanced Practice Nurse 06/10/18 04/22/23 Sravani Ramsay MD [address] [place] [address] PCP - General Family Medicine 04/23/23 12/30/23 Shravan Burgos, [facility] [address] [place] [address] PCP - General Physician Food General Manager 12/31/23 Arnold Roberts MD [address] [place] [address] Consulting Physician Pulmonary Disease 07/26/23 documented as of this encounter
--- OUTSIDE RECORDS SUMMARY | 2024-11-30 17:23 | XMS_ITS | Encounter Summary ---
Author Organization [facility] Address [address] [place] [address] Phone Care Team Providers Care Hr Associate Name Role Phone Amaya Kowalski APRN, DOUGLAS Primary Care Provider Encounter Details Date Type Department Care Team ([facility] Contact Info) Description 10/28/2020 1:20 PM LPN MEDICAL ASSISTANT Lab [facility] - Primary Care - [address] [phone] Lab, [facility] Discharge Disposition: Discharged to [...] have Coronavirus / COVID-19? No / Unsure 10/28/2020 12:23 PM LPN MEDICAL ASSISTANT documented as of this encounter Progress Notes * Cristin Tolentino RMA - 10/28/2020 1:20 PM CST uds sent to [facility] MEDICAL ASSISTANT documented in this encounter Plan of Treatment Upcoming Encounters Date Type Department Care Team (Late st Contact Info) Description 03/21/2025 4:30 PM CDT Office Visit [facility] - Primary Care - [place] [address] [place] [phone] Shravan Burgos PAC [address] [place] [address] documented as of this encounter Goals Goal Patient Goal Type Associated Problems Recent Progress Patient-Stated? Author Behavioral Health Behavioral Health On track(2019 9:50 AM CDT) Yes Eloise Jenkins LUCERNE FARMER Note: Irma reported her goal for psychotherapy [...] documented as of this encounter Care Teams Hr Associate Relationship Specialty Start Date End Date Amaya Kowalski, FENCE RIDER, SHIPPING ORDER CLERK [address] [place] [address] PCP - General Advanced Practice Nurse 06/10/18 documented as of this encounter
--- OUTSIDE RECORDS SUMMARY | 2024-11-30 17:23 | XMS_ITS | Encounter Summary ---
Author Organization [facility] Address [address] [place] [address] Phone Care Team Providers Care Information Security Officer Name Role Phone Amaya Kowalski APRN, TRUCK SAFETY INSPECTOR Primary Care Provider Reason for Visit * Radiology Services (Routine) - Closed Specialty Diagnoses / Procedures Referred By Contac t Referred To Contact Radiology Diagnoses Other abnormal and inconclusive findings on diagnostic imaging of breast Procedures NU DIAG RIGHT UNILATERAL DIGITAL W CAD W WILBERT NU DIAG RIGHT DIGITAL W CAD Veronika Orantes APRN, TRUCK SAFETY INSPECTOR [address] [facility] [address] [place] [address] Phone: tel: fax: Referral ID Status Reason Start Date Expiration Date Visits Re quested Visits Authorized [id number] Closed 09/19/2020 1 1 Encounter Details Date Type Department Care Team (Latest Contact Info) Description 11/04/2020 1:14 PM CHANNEL SPECIALIST - 11/04/2020 11:59 PM CHANNEL SPECIALIST Hospital [facility] Mammography [address] [place] [id number] Amaya Kowalski, MEGAN, TRUCK SAFETY INSPECTOR [address] [place] [address] Discharge Disposition: Discharged to home or Selfcare [...] COVID-19? No / Unsure 11/04/2020 1:11 PM CHANNEL SPECIALIST documented as of this encounter Medications at [...] WHEEZING OR COUGH 6.7 Inhaler 10/23/2020 1 azithromycin (ZITHROMAX) 250 MG TabletIndication s:Bronchitis 2 tab(s) daily for 1 day, then 1 tab(s) daily for days 2-5. 6 Tab 10/15/2020 1 budesonide-formo terol fumarate (Symbicort) 160-4.5 MCG/ACT AerosolIndicatio ns:Bronchitis take 2 Puffs by inhalation 2 times daily. 1 Inhaler 10/15/2020 1 Fluticasone-Salm eterol 55-14 MCG/ACT AEROSOL POWDER, BREATH ACTIVATED take 1 Puff by inhalation 2 times daily. 1 Each 1 08/17/2019 1 guaiFENesin-code ine (Cheratussin AC) 100-10 MG/5ML SyrupIndications :Bronchitis Take 5 mL by mouth every 4 hours as needed for Cough. 120 mL 10/15/2020 1 HYDROcodone-acet aminophen (NORCO) 5-325 MG Tablet Take 1 Tab by mouth every 8 hours as needed for Moderate or more severe pain. 12 Tab 07/26/2020 1 ibuprofen (MOTRIN) 800 MG Tablet Take 1 Tab by mouth every 8 hours. 20 Tab 09/07/2019 1 ipratropium-albu terol (DUO-NEB) 0.5-2.5 (3) MG/3ML Solution 3 mL by Nebulization route 4 times daily. 360 Vial 3 04/05/2020 2 LORazepam (ATIVAN) 1 MG Tablet TAKE 1 TABLET BY MOUTH AT BEDTIME NEEDED FOR ANXIETY 30 Tab 10/23/2020 0 Naproxen Sodium (ALEVE PO) Take by mouth daily. 1 predniSONE (DELTASONE) 10 MG TabletIndication s:Bronchitis Take 4 tab PO daily x 2 days, 3 tab PO daily x 2 days, 2 tab PO daily x 2 day, 1 tab PO daily x 2 days. 20 Tab 10/15/2020 1 triamcinolone (KENALOG) 0.1 % Cream Application Site: extremities x 4 and chest 1 Tube 07/31/2018 1 venlafaxine (EFFEXOR-XR) 37.5 MG CAPSULE SR 24 HR TAKE 1 CAPSULE BY MOUTH EVERY DAY 90 Cap 07/01/2020 1 documented as of this encounter Plan of Treatment Upcoming Encounters Date Type Department Care Team (Late st Contact Info) Description 03/21/2025 4:30 PM CDT Office Visit [facility] - Primary Care - [place] [address] [place] [address] Shravan Burgos, PAC [address] [place] [address] documented as of this encounter Goals Goal Patient Goal Type Associated Problems Recent Progress Patient-Stated? Author Behavioral [facility] Behavioral Health On track(2019 9:50 AM CDT) Yes Eloise Jenkins LCPC Note: Irma reported her goal for psychotherapy is to help me be able to deal with things in the present and in her past that are contributing to low and anxious mood. Goal Reviewed with: patient Readiness to change: Thinking about making a change Department associated with goal: [facility] Steps to achieve goal: 1. Irma will attend psychotherapy, at minimum twice a month. 2. Irma will identify and explore atleast three incidents/experiences of current stressors, past trauma and family dynamics that contribute to her mood concerns. 3. Irma will identify at least three ways/skills to heal and cope with the experiences (current and past) that trigger mood concerns. [facility] Behavioral Health On track(2019 9:50 AM CDT) No Eloise Jenkins LCPC Note: Irma will engage in a plan of action to improve emotional and mental wellbeing. Goal Reviewed with: patient Readiness to change: Not yet ready to make a change Department associated with goal: [facility] Steps to achieve [...] Name Priority Date/Time Associated Diagnosis Comments NU DIAG RIGHT UNILATERAL DIGITAL W CAD W WILBERT Routine 11/04/2020 1:41 PM CHANNEL SPECIALIST Other abnormal and inconclusive findings on diagnostic imaging of breast documented in this encounter Results * NU DIAG RIGHT UNILATERAL DIGITAL W CAD W WILBERT (11/04/2020 1:41 PM CHANNEL SPECIALIST) Anatomical Region Laterality Modality breast Right Mammography 11/04/2020 1:17 PM CHANNEL SPECIALIST Narrative 11/04/2020 4:19 PM CHANNEL SPECIALIST - UN DIAG RIGHT UNILATERAL DIGITAL W CAD W WILBERT UNILATERAL RIGHT DIGITAL DIAGNOSTIC MAMMOGRAM 3D/2D WITH CAD WITH MEDIOLATERAL MEDIOLATERAL OBLIQUE CRANIOCAUDAL SPOT COMPRESSION: 11/04/2020 The study was acquired using digital technology and interpreted from soft copy. ?? Current study was also evaluated with ICAD version 7.2. ?? CLINICAL: Diagnostic study. Patient returns to evaluate an asymmetry in the right breast. No personal history of cancer. ?? COMPARISONS: Comparison is made to exams dated: ??09/13/2020 and 03/14/2019 [facility]. ?? BREAST TISSUE:The tissue of the right breast is heterogeneously dense. This may lower the sensitivity of mammography. ?? FINDINGS: No persistent focal asymmetry seen in the right breast on the additional views. ?? No significant masses, calcifications, or other findings are seen in the breast. ?? There has been no significant interval change. IMPRESSION: BI-RAD 1 ??NEGATIVE There is no mammographic evidence of malignancy. A 1 year screening mammogram is recommended. ?? The patient has been or will be contacted. ?? Electronically signed by: Mounika Song M.D. ? ll/:11/04/2020 13:39:30 ?? Board Design Engineer: Angie Greenwood RT(R)(M), [facility] letter sent: Normal Exam ?? Reading location: [facility] BI-RADS: 1 Negative Procedure Note Mounika Song MD - 11/04/2020 - NU DIAG RIGHT UNILATERAL DIGITAL W CAD W WILBERT UNILATERAL RIGHT DIGITAL DIAGNOSTIC MAMMOGRAM 3D/2D WITH CAD WITH MEDIOLATERAL MEDIOLATERAL OBLIQUE CRANIOCAUDAL SPOT COMPRESSION: 11/04/2020 The study was acquired using digital technology and interpreted from soft copy. Current study was also evaluated with ICAD version 7.2. CLINICAL: Diagnostic study. Patient returns to evaluate an asymmetry in the right breast. No personal history of cancer. COMPARISONS: Comparison is made to [facility]13[facility] BREAST TISSUE:The tissue of the right breast is heterogeneously dense. This may lower the sensitivity of mammography. FINDINGS: No persistent focal asymmetry seen in the right breast on the additional views. No significant masses, calcifications, or other findings are seen in the breast. There has been no significant interval change. IMPRESSION: BI-RAD 1 NEGATIVE There is no mammographic evidence of malignancy. A 1 year screening mammogram is recommended. The patient has been or will be contacted. Electronically signed by: Mounika Song M.D. ll/:11/04/2020 13:39:30 Board Design Engineer: Angie Greenwood RT(R)(M), [facility] letter sent: Normal Exam Reading location: [facility] BI-RADS: 1 Negative us Veronika Orantes APRN, CNP IM MAMMO ORDERABLES Kaylin l Result documented in this encounter Visit Diagnoses Diagnosis Other abnormal and inconclusive findings on diagnostic imaging of breast documented in this encounter Additional Health Concerns Assessment Noted Time PHQ-9 Depression Total Score: 13 020 2:00 PM CDT documented as of this encounter Care Teams Information Security Officer Relationship Specialty Start Date End Date Amaya Kowalski APRN, TRUCK SAFETY INSPECTOR [address] [place] [address] PCP - General Advanced Practice Nurse 06/10/18 documented as of this encounter
--- OUTSIDE RECORDS SUMMARY | 2024-11-30 17:23 | XMS_ITS | Encounter Summary ---
Author Organization [facility] Address [address] [place] [address] Phone Care Team Providers Care Deputy Clerk Name Role Phone Amaya Kowalski APRN, CNP Primary Care Provider Reason for Visit * Reason Onset Date Comments Results 11/04/2020 Urine drug scree n Encounter Details Date Type Department Care Team ([facility] Contact Info) Description 11/04/2020 Telephone [facility] - Primary Care - [place] [address] [place] [address] Amaya Kowalski APRN, CNP [address] [place] [address] Results (Urine drug screen) Social [...] COVID-19? No / Unsure 11/04/2020 1:11 PM DARKLIGHT INSPECTOR documented as of this encounter Miscellaneous Notes * Telephone Encounter - Mohini Aguirre RN - 11/04/2020 4:37 PM DARKLIGHT INSPECTOR No need to call patient per PCP. 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 Will start a taper of her lorazepam. LIGHT INSPECTOR * Telephone Encounter - Mohini Aguirre RN - 11/04/2020 8:13 AM DARKLIGHT INSPECTOR Urine drug screen results received and placed in PCP inbox. LIGHT INSPECTOR documented in this encounter Plan of Treatment Upcoming Encounters Date Type Department Care Team (Late st Contact Info) Description 03/21/2025 4:30 PM CDT Office Visit [facility] - Primary Care - [place] [address] [place] [address] Shravan Burgos, PAPI [address] [place] [address] documented as of this encounter Goals Goal Patient Goal Type Associated Problems Recent Progress Patient-Stated? Author Behavioral [facility] Behavioral Health On track(2019 9:50 AM CDT) Yes Eolise Jenkins LCPC Note: Irma reported her goal [...] and past) that trigger mood concerns. [facility] Behavioral Health On track(2019 9:50 [...] documented as of this encounter Care Teams Deputy Clerk Relationship Specialty Start Date End Date Amaya Kowalski, REIMBURSEMENT CONSULTANT, CHAIRMAN CEO [address] [place] [address] PCP - General Advanced Practice Nurse 06/10/18 documented as of this encounter
--- OUTSIDE RECORDS SUMMARY | 2024-11-30 17:23 | XMS_ITS | Encounter Summary ---
Author Organization [employer] Care Team Providers Care Sand Polisher Name Role Phone Amaya Kowalski APRN, CENTRIFUGE SEPARATOR OPERATOR Primary Care Provider Encounter Details Date Type Department Care Team (Latest Contact Info) Description 10/28/2020 Travel Social History Tobacco Use Types Packs/Day [...] COVID-19? No / Unsure 10/28/2020 12:23 PM PLANT TOUR GUIDE documented as of this encounter Plan of Treatment Upcoming Encounters Date Type Department Care Team (Late st Contact Info) Description 03/21/2025 4:30 PM CDT Office Visit [facility] - Primary Care - [place] [address] [place] [address] Shravan Burgos, PAC [address] [place] [address] documented as of this encounter Goals Goal Patient Goal Type Associated Problems Recent Progress Patient-Stated? Author [facility] On track(2019 9:50 AM CDT) [...] (current and past) that trigger mood concerns. [facility] Behavioral Health On track(2019 9:50 AM [...] documented as of this encounter Care Teams Sand Polisher Relationship Specialty Start Date End Date Amaya Kowalski APRN, CENTRIFUGE SEPARATOR OPERATOR [address] [place] [address] PCP - General Advanced Practice Nurse 06/10/18 documented as of this encounter
--- OUTSIDE RECORDS SUMMARY | 2024-11-30 17:24 | XMS_ITS | Encounter Summary ---
Author Organization [facility] Address [address] [place] [address] Phone Care Team Providers Care Collision Estimator Name Role Phone Amaya Kowalski APRN, DIE BARBER Primary Care Provider Encounter Details Date Type Department Care Team (Latest Contact Info) Description 10/15/2020 11:25 AM CHART COMPUTER - 10/15/2020 11:59 PM CHART COMPUTER Hospital Encounter [facility] - Medical Imaging - [place] [address] [place] [address] Larissa Koch APRN, DIE BARBER [address] [address] Discharge Disposition: Discharged to home or Selfcare [...] Coronavirus / COVID-19? Yes 10/15/2020 10:41 AM CHART COMPUTER documented as of this encounter Medications at [...] NEEDED FOR WHEEZING OR COUGH 6.7 Inhaler 09/23/2020 0 azithromycin (ZITHROMAX) 250 MG TabletIndication s:Bronchitis 2 tab(s) daily for 1 day, then 1 tab(s) daily for days 2-5. 6 Tab 10/15/2020 1 Benzonatate 200 MG Capsule Take 1 Cap by mouth 3 times daily as needed for Cough for up to 10 days. 30 Cap 10/11/2020 0 budesonide-formo terol fumarate (Symbicort) 160-4.5 MCG/ACT AerosolIndicatio [...] AT BEDTIME NEEDED FOR ANXIETY 30 Tab 09/23/2020 0 Naproxen Sodium (ALEVE PO) Take by [...] Description 03/21/2025 4:30 PM CDT Office Visit [facility] - Primary Care - [place] [address] [place] [address] Shravan Burgos PAC [address] [place] [address] documented as of [...] making a change Department associated with goal: [facility] BEHAVIORAL HEALTH SERVICES Steps to [...] make a change Department associated with goal: [facility] BEHAVIORAL HEALTH SERVICES Steps to [...] Priority Date/Time Associated Diagnosis Comments XR CHEST 2 VIEWS Stat with Interpretation 10/15/2020 11:32 AM CHART COMPUTER Cough documented in this encounter Results * XR CHEST 2 VIEWS (10/15/2020 11:32 AM CHART COMPUTER) Anatomical Region Laterality Modality Chest N/A Digital Radiogra phy 10/15/2020 11:3 8 AM CHART COMPUTER Impressions 10/15/2020 11:41 AM CHART COMPUTER IMPRESSION: ?? 1. ??No acute cardiopulmonary process is identified. Narrative 10/15/2020 11:41 AM CHART COMPUTER EXAM DESCRIPTION: ?? XR CHEST 2 VIEWS REASON FOR STUDY: ?? Cough for 8 days. ??Shortness of breath. TECHNIQUE: ?? Frontal and lateral radiographic views of the chest acquired. COMPARISON: ?? 10/11/2020. FINDINGS: ??LUNGS/PLEURA: ??No focal consolidation or pneumothorax. No pleural effusion. HEART/MEDIASTINUM: ??Heart size is normal. Normal mediastinal and hilar contours. HARDWARE/LINES/TUBES: ??None. BONES: ??Mild S-shaped thoracolumbar scoliosis. OTHER: ??No other significant finding. THIS IS AN ELECTRONICALLY VERIFIED FINAL REPORT 10/15/2020 11:38 AM - Electronically signed by Yadiel Valderrama D.O. : D: ??10/15/2020 11:38 AM T: ??10/15/2020 11:38 AM Report ID: [id number] Reading Location: ??[id number] Procedure Note Yadiel Valderrama, - 10/15/2020 EXAM DESCRIPTION: XR CHEST 2 VIEWS REASON FOR STUDY: Cough for 8 days. Shortness of breath. TECHNIQUE: Frontal and lateral radiographic views of the chest acquired. COMPARISON: 10/11/2020. FINDINGS: LUNGS/PLEURA: No focal consolidation or pneumothorax. No pleural effusion. HEART/MEDIASTINUM: Heart size is normal. Normal mediastinal and hilar contours. HARDWARE/LINES/TUBES: None. BONES: Mild S-shaped thoracolumbar scoliosis. OTHER: No other significant finding. THIS IS AN ELECTRONICALLY VERIFIED FINAL REPORT 10/15/2020 11:38 AM - Electronically signed by Yadiel Valderrama D.O. : Report ID: [id number] Reading Location: [id number] IMPRESSION: 1. No acute cardiopulmonary process is identified. Larissa Koch APRN, DOUGLAS IMG DIAGNOSTIC OR DERABLES Final Result documented in this encounter Visit Diagnoses Diagnosis Cough documented in this encounter Additional Health Concerns Assessment Noted Time PHQ-9 Depression Total Score: 13 04/16/ 020 2:00 PM CDT documented as of this encounter Care Teams Collision Estimator Relationship Specialty Start Date End Date Amaya Kowalski APRN, DIE BARBER [address] [place] [address] PCP - General Advanced Practice Nurse 06/10/18 documented as of this encounter
--- OUTSIDE RECORDS SUMMARY | 2024-11-30 17:24 | XMS_ITS | Encounter Summary ---
Author Organization [facility] Address [address] [place] [address] Phone Care Team Providers Care Director Oracle Name Role Phone Amaya Kowalski APRN, MEMBER CERTIFICATION MANAGER Primary Care Provider Reason for Visit * Reason Comments Cough X 1 week Encounter Details Date Type Department Care Team ([facility] st Contact Info) Description 10/15/2020 10:45 AM CLOTH TRIMMER HAND [facility] [place] [address] [place] [address] Larissa Koch APRN, MEMBER CERTIFICATION MANAGER [address] [place] [address] Bronchitis (Primary Dx); Cough Discharge Disposition: Discharged to home or Selfcare Social History Tobacco Use Types Packs/Day Years Used Date Smoking Tobacco: Some Days Cigarettes Smokeless Tobacco: Never Tobacco Cessation:Counseling Given: Yes Comments:Pt has multiple days in [...] Coronavirus / COVID-19? Yes 10/15/2020 10:41 AM CLOTH TRIMMER HAND documented as of this encounter Last Filed Vital Signs Vital Sign Reading Time Taken Comments Blood Pressure 116/84 10/15/2020 10:50 AM CLOTH TRIMMER HAND Pulse 88 10/15/2020 10:50 AM CLOTH TRIMMER HAND Temperature 36.6 ??C (97.9 ??F) 10/15/2020 10:[address] Respiratory Rate 20 10/15/2020 10:50 AM CLOTH TRIMMER HAND Oxygen Saturation 98% 10/15/2020 10:50 AM CLOTH TRIMMER HAND Inhaled Oxygen Concentration - - Weight 62.6 kg (138 lb) 10/15/2020 10:50 AM CLOTH TRIMMER HAND Height 160 cm (5' 3 ) 10/15/2020 10:50 AM CLOTH TRIMMER HAND Body Mass Index 24.45 10/15/2020 10:50 AM CLOTH TRIMMER HAND documented in this encounter Patient Instructions * Patient Instructions* Larissa Koch, [place], MEMBER CERTIFICATION MANAGER - 10/15/2020 10:45 AM CLOTH TRIMMER HAND Images from the original note were not included. Bronchitis, Antibiotic Treatment (Adult) Bronchitis is an infection of the air passages (bronchial tubes) in your lungs. It often occurs when you have a cold. This illness is contagious during the first few days and is spread through the air by coughing and sneezing, or by direct contact (touching the sick person and then touching your own eyes, nose, or mouth). Symptoms of bronchitis include cough with mucus (phlegm) and low-grade fever. Bronchitis usually lasts 7 to 14 days. Mild cases can be treated with simple home remedies. More severe infection is treated with an antibiotic. Home care Follow these guidelines when caring for yourself at home: ?? If your symptoms are severe, rest at home for the first 2 to 3 days. When you go back to your usual activities, don't let yourself get too tired. ?? Don't smoke. Also stay away from secondhand smoke. ?? You may use wmgc-pgg-chquhqt medicines to control fever or pain, unless another medicine was prescribed. If you have chronic liver or kidney disease or have ever had a stomach ulcer or gastrointestinal bleeding, talk with your healthcare provider before using these medicines. Also talk to your provider if you are taking medicine to prevent blood clots. Aspirin should never be given to anyone younger than 18 who is ill with a viral infection or fever. It may cause severe liver or brain damage. ?? Your appetite may be low, so a light diet is fine. Stay well hydrated by drinking 6 to 8 glassesof fluids per day. This includes water, soft drinks, sports drinks, juices, tea, or soup. Extra fluids will help loosen mucus in your nose and lungs. ?? Tcio-hyl-vlbskur cough, cold, and sore-throat medicines will not shorten the length of the illness, but they may be helpful to reduce your symptoms. Don't use decongestants if you have high blood pressure. ?? Finish all antibiotic medicine. Do this even if you are feeling better after only a few days. Follow-up care Follow up with your healthcare provider, or as advised. If you had an X-ray or ECG (electrocardiogram), a specialist will review it. You will be told of any new test results that may affect your care. If you are age 65 or older, if you smoke, or if you have a chronic lung disease or condition that affects your immune system, ask??your healthcare provider about getting a??pneumococcal vaccine and ayearly flu shot (influenza vaccine). When to seek medical advice Call your healthcare provider right away if any of these occur: ?? Fever of 100.4??F (38??C) or higher, or as directed by your healthcare provider ?? Coughing up more sputum ?? Weakness, drowsiness, headache, facial pain, ear pain, or a stiff neck Call 911 Call 911 if any of these occur. ?? Coughing up blood ?? Weakness, drowsiness, headache, or stiff neck that get worse ?? Trouble breathing, wheezing, or pain with breathing Katrina last reviewed this educational content on 04/29/2018 ?? [id number] [employer]. [address] [place] [address], [place] [address]. All rights reserved. This information is not intended as a substitute for professional medical care. Always follow your healthcare professional's instructions. Xray negative for acute findings Start prednisone taper and zpack as prescribed Cheratussin as needed for cough Start symbicort as prescribed Care as instructed on AVS If medication was prescribed it was sent to the pharmacy. Take all medication as prescribed. Do not skip a dose and take until completed. Follow up with PCP if the symptoms do not improve Go to the ER if symptoms become severe H TRIMMER HAND documented in this encounter Progress Notes * Melonie Brandon CMA - 10/15/2020 10:45 AM CST Irma Cat Seymour, 40 y.o., female is here for Cough (X 1 week ) Medication Refills: Patient reports/denies need for medication refills. Orders Pended: no Requested Prescriptions No prescriptions requested or ordered in this encounter Home Medications Medication Sig Start Date End Date Taking? Authorizing Provider albuterol 108 (90 Base) MCG/ACT Aerosol Solution INHALE 1-2 PUFFS BY INHALATION EVERY 4 HOURS NEEDED FOR WHEEZING OR COUGH 09/23/20 Yes Amaya Kowalski APN, CNP Benzonatate 200 MG Capsule Take 1 Cap by mouth 3 times daily as needed for Cough for up to 10 days.10/11/20 10/21/20 Yes Rajeev Babb PAC Fluticasone-Salmeterol 55-14 MCG/ACT AEROSOL POWDER, BREATH ACTIVATED take 1 Puff by inhalation 2 times daily. Patient not taking: Reported on 07/26/2020 08/17/19 Amaya Kowalski APN, CNP HYDROcodone-acetaminophen (NORCO) 5-325 MG Tablet Take 1 Tab by mouth every 8 hours as needed for Moderate or more severe pain. Patient not taking: Reported on 10/15/2020 07/26/20 Amaya Kowalski APN, CNP ibuprofen (MOTRIN) 200 MG Tablet Take 3 Tabs by mouth every 6 hours as needed for Fever. Patient not taking: Reported on 03/09/2019 12/26/18 Ti Ma PAC ibuprofen (MOTRIN) 800 MG Tablet Take 1 Tab by mouth every 8 hours. Patient not taking: Reported on 07/26/2020 09/07/19 Rajeev Huang APN, CNP ipratropium-albuterol (DUO-NEB) 0.5-2.5 (3) MG/3ML Solution 3 mL by Nebulization route 4 times daily. 04/05/20 Yes Amaya Kowalski APN, CNP LORazepam (ATIVAN) 1 MG Tablet TAKE 1 TABLET BY MOUTH AT BEDTIME NEEDED FOR ANXIETY 09/23/20 Amaya Kowalski APN, CNP Naproxen Sodium (ALEVE PO) Take by mouth daily. Yes Provider, MD Marivel predniSONE (DELTASONE) 20 MG Tablet Take 1 Tab by mouth 2 times daily for 5 days. 10/11/20 10/16/20Yes Rajeev Babb PAC Respiratory Therapy Supplies (NEBULIZER) Device Use [...] on 07/26/2020 07/01/20 Shahida Bianchi APN, CNP There are no discontinued medications. [...] ??? Pneumococcal Immunization (0-64 years) (1 of 1 - PPSV23) 1984 ??? DTaP/Tdap/Td Immunization (1 - Tdap) 1985 ??? Pap Smear 1999 ??? Influenza Immunization (1) 07/30/2020 Orders Pended: no The following BPA's have been addressed with the patient today: N/A H TRIMMER HAND documented in this encounter H&P Notes * Larissa Koch APN, MEMBER CERTIFICATION MANAGER - 10/15/2020 10:45 AM CST Subjective: Irma Seymour is a 40 y.o. female in the prompt care today for cough and SOB. Symptoms started 8 days ago Severity of symptoms is moderate, not improving Associated symptoms include cough, SOB, wheezing, fatigue Patient is not currently taking over the counter meds for the symptoms. Smoker: yes, daily social smoker, less than half pack daily Was seen in ER on 10/11/2020 with no improvement No pertinent Past, family, or social history was noted Review of Systems Constitutional: Positive for fatigue. Respiratory: Positive for cough, shortness of breath and wheezing. All other systems reviewed and are negative. Objective: Physical Exam Vitals signs and nursing note reviewed. Constitutional: Appearance: Normal appearance. HENT: Head: Normocephalic and atraumatic. Nose: Nose normal. Mouth/Throat: Pharynx: Posterior oropharyngeal erythema (scant with cobblestonning) present. Neck: Musculoskeletal: Normal range of motion and neck supple. Cardiovascular: Rate and Rhythm: Normal rate and regular rhythm. Pulmonary: Effort: Pulmonary effort is normal. Breath sounds: Decreased air movement present. Rhonchi present. Musculoskeletal: Normal range of motion. Skin: General: Skin is warm and dry. Neurological: Mental Status: She is alert and oriented to person, place, and time. Psychiatric: Mood and Affect: Mood normal. Behavior: Behavior normal. Thought Content: Thought content normal. Judgment: Judgment normal. Assessment and Plan 1. Cough See plan below - XR CHEST 2 VIEWS; Future 2. Bronchitis Xray negative for acute findings Start prednisone taper and zpack as prescribed Cheratussin as needed for cough Start symbicort as prescribed Care as instructed on AVS If medication was prescribed it was sent to the pharmacy. Take all medication as prescribed. Do not skip a dose and take until completed. Follow up with PCP if the symptoms do not improve Go to the ER if symptoms become severe - predniSONE (DELTASONE) 10 MG Tablet; Take 4 tab PO daily x 2 days, 3 tab PO daily x 2 days, 2 tabPO daily x 2 day, 1 tab PO daily x 2 days. Dispense: 20 Tab; Refill: 0 - budesonide-formoterol fumarate (Symbicort) 160-4.5 MCG/ACT Aerosol; take 2 Puffs by inhalation 2 times daily. Dispense: 1 Inhaler; Refill: 0 - guaiFENesin-codeine (Cheratussin AC) 100-10 MG/5ML Syrup; Take 5 mL by mouth every 4 hours as needed for Cough. Dispense: 120 mL; Refill: 0 - azithromycin (ZITHROMAX) 250 MG Tablet; 2 tab(s) daily for 1 day, then 1 tab(s) daily for days 2-5. Dispense: 6 Tab; Refill: 0 H TRIMMER HAND documented in this encounter Plan of Treatment Upcoming Encounters Date Type Department Care Team (Late st Contact Info) Description 03/21/2025 4:30 PM CDT Office Visit [facility] - Primary Care - [place] [address] [place] [address] Shravan Burgos PAC [address] [place] [address] documented as of this encounter [...] making a change Department associated with goal: [facility] Steps to [...] (current and past) that trigger mood concerns. [facility] On track(2019 9:50 AM CDT) No Eloise Jenkins, FOOD ADVISER Note: Irma will engage in a plan of action to improve emotional and mental wellbeing. Goal Reviewed with: patient Readiness to change: Not yet ready to make a change Department associated with goal: [facility] Steps to [...] documented as of this encounter Results * XR CHEST 2 VIEWS (10/15/2020 11:32 AM CLOTH TRIMMER HAND) Anatomical Region Laterality Modality Chest N/A [employer] phy 10/15/2020 11:3 8 AM CLOTH TRIMMER HAND Impressions 10/15/2020 11:41 AM CLOTH TRIMMER HAND IMPRESSION: ?? 1. ??No acute cardiopulmonary process is identified. Narrative 10/15/2020 11:41 AM CLOTH TRIMMER HAND EXAM DESCRIPTION: ?? XR CHEST 2 VIEWS [...] AM T: ??10/15/2020 11:38 AM Report ID: [id number] Reading Location: ??[id number] Procedure Note Yadiel Valderrama DO - 10/15/2020 EXAM DESCRIPTION: XR CHEST 2 [...] by Yadiel Valderrama D.O. : Report ID: [id number] Reading Location: [id number] IMPRESSION: 1. No acute cardiopulmonary process is identified. Larissa Koch APRN, DOUGLAS IMG DIAGNOSTIC OR DERABLES Final Result documented in this encounter Visit Diagnoses Diagnosis Bronchitis- Primary Bronchitis, not specified as acute or chronic Cough Cough documented in this encounter Additional Health Concerns Assessment Noted Time PHQ-9 Depression Total Score: 13 020 2:00 PM CDT documented as of this encounter Care Teams Director Oracle Relationship Specialty Start Date End Date Amaya Kowalski APRN, DOUGLAS [address] [place] [address] PCP - General Advanced Practice Nurse 06/10/18 documented as of this encounter
--- OUTSIDE RECORDS SUMMARY | 2024-11-30 17:24 | XMS_ITS | Encounter Summary ---
Author Organization [facility] Address [address] [place] [address] Phone Care Team Providers Care Snaker Driving Horses Name Role Phone Amaya Kowalski APRN, CONTENT PRODUCER Primary Care Provider Reason for Visit * Reason Onset Date Comments Cough 10/11/2020 COVID-19 10/11/2020 Encounter Details Date Type Department Care Team (Late st Contact Info) Description 10/11/2020 Nurse Triage [facility] [address] [place] [address] Amaya Kowalski, MEGAN, CONTENT PRODUCER [address] [place] [address] Cough; COVID-19 Social History Tobacco Use Types Packs/Day [...] have Coronavirus / COVID-19? No / Unsure 10/11/2020 12:13 PM SHAPER SET UP OPERATOR documented as of this encounter Miscellaneous Notes * Telephone Encounter - Huong Polo RN - 10/11/2020 12:11 PM CST Images from the original note were not included. SITUATION: Cough , wheezing BACKGROUND: Day 4 ASSESSMENT: Symptom Description / Location: Pt cough Nonproductive Metallic taste Not coughing up any blood Wheezing SOB , able to complete sentences States mild to moderate Healthcare worker Hx bronchitis Pain (0-10): Temp: none currently Treatment / Response: nebulizer, inhalers , pushing fluids Unable to reach back line Sending to ED Travel Screening Question Response In the last month, have you been in contact with someone who was confirmed or suspected to have Coronavirus / COVID-19? No / Unsure Have you had a COVID-19 viral test in the last 14 days? Yes - Negative result Do you have any of the following new or worsening symptoms? Cough;Shortness of breath;Fatigue Have you traveled internationally in the last month? No Travel History Travel since 09/10/20 No documented travel since 09/10/20 COVID-19 Testing Priority for Irma Seymour: 2 RECOMMENDATION: See care advice and disposition for [...] <100) Protocols used: CORONAVIRUS (COVID-19) DIAGNOSED OR [id number] ER SET UP OPERATOR documented in this encounter Plan of Treatment Upcoming Encounters Date Type Department Care Team (Late st Contact Info) Description 03/21/2025 4:30 PM CDT Office Visit [facility] - Primary Care - [place] [address] [place] [address] Shravan Burgos PAC [address] [place] [address] documented as of this encounter Goals Goal Patient Goal Type Associated Problems Recent Progress Patient-Stated? Author [facility] On track(2019 9:50 AM [...] past) that trigger mood concerns. [facility] On track(2019 9:50 AM [...] documented as of this encounter Care Teams Snaker Driving Horses Relationship Specialty Start Date End Date Amaya Kowalski, PATIENT REGISTRATION SUPERVISOR, CONTENT PRODUCER [address] [place] [address] PCP - General Advanced Practice Nurse 06/10/18 documented as of this encounter
--- OUTSIDE RECORDS SUMMARY | 2024-11-30 17:24 | XMS_ITS | Encounter Summary ---
Author Organization [employer] [facility] Care Team Providers Care Mattress Inspector Name Role Phone Amaya Kowalski APRN, TUBE TRAILER FILLER Primary Care Provider Encounter Details Date Type Department Care Team (Latest Contact Info) Description 10/15/2020 Travel Social History Tobacco Use Types Packs/Day [...] Coronavirus / COVID-19? Yes 10/15/2020 10:41 AM SSIS ARCHITECT documented as of this encounter Plan of Treatment Upcoming Encounters Date Type Department Care Team (Late st Contact Info) Description 03/21/2025 4:30 PM CDT Office Visit [facility] - Primary Care - [place] [address] [place] [address] Shravan Burgos, PAPI [address] [place] [address] documented as of this encounter Goals Goal Patient Goal Type Associated Problems Recent Progress Patient-Stated? Author [facility] On track(2019 9:50 AM CDT) Yes Eloise Jenkins LCPC Note: Irma reported her goal for psychotherapy is to help me be able to deal with things in the present and in her past that are contributing to low and anxious mood. Goal Reviewed with: patient Readiness to change: Thinking about making a change Department associated with goal: [facility] Steps [...] make a change Department associated with goal: [facility] Steps [...] documented as of this encounter Care Teams Mattress Inspector Relationship Specialty Start Date End Date Amaya Kowalski, MEGAN, TUBE TRAILER FILLER [address] [place] [address] PCP - General Advanced Practice Nurse 06/10/18 documented as of this encounter
--- OUTSIDE RECORDS SUMMARY | 2024-11-30 17:24 | XMS_ITS | Encounter Summary ---
Author Organization [facility] Address [address] [place] [address] Phone Care Team Providers Care Assurance Manager Name Role Phone Amaya Kowalski APRN, PATTERN WORKER Primary Care Provider Reason for Visit * Reason Comments Cough Encounter Details Date Type Department Care Team ([facility] st Contact Info) Description 10/11/2020 1:56 PM REGIONAL SALES MANAGER - 10/11/2020 3:43 PM REGIONAL SALES MANAGER Emergency [facility] [address] [place] [address] Rajeev Babb, PAC [address] [place] [address] Viral URI with cough Discharge Disposition: Discharged to home or [...] COVID-19? No / Unsure 10/11/2020 12:13 PM REGIONAL SALES MANAGER documented as of this encounter Last Filed Vital Signs Vital Sign Reading Time Taken Comments Blood Pressure 120/85 10/11/2020 3:30 PM REGIONAL SALES MANAGER Pulse 76 10/11/2020 3:30 PM REGIONAL SALES MANAGER Temperature 36.4 ??C (97.6 ??F) 10/11/2020 1:53 PM CS T Respiratory Rate 18 10/11/2020 3:30 PM REGIONAL SALES MANAGER Oxygen Saturation 97% 10/11/2020 3:30 PM REGIONAL SALES MANAGER Inhaled Oxygen Concentration - - Weight 62.6 kg (138 lb) 10/11/2020 1:53 PM REGIONAL SALES MANAGER Height 160 cm (5' 3 ) 10/11/2020 1:53 PM REGIONAL SALES MANAGER Body Mass Index 24.45 10/11/2020 1:53 PM REGIONAL SALES MANAGER documented in this encounter Discharge Instructions * Attachments The following attachments cannot be sent through Care Everywhere. * URI, Viral, No Abx (Adult) ([place]) documented in this encounter Medications at Time [...] WHEEZING OR COUGH 6.7 Inhaler 09/23/2020 0 Benzonatate 200 MG Capsule Take 1 Cap by mouth 3 times daily as needed for Cough for up to 10 days. 30 Cap 10/11/2020 0 Fluticasone-Salm eterol 55-14 MCG/ACT AEROSOL POWDER, BREATH ACTIVATED take 1 Puff by inhalation 2 times daily. 1 Each 1 08/17/2019 1 HYDROcodone-acet aminophen (NORCO) 5-325 MG Tablet [...] Take by mouth daily. 1 predniSONE (DELTASONE) 20 MG Tablet Take 1 Tab by mouth 2 times daily for 5 days. 10 Tab 10/11/2020 0 triamcinolone (KENALOG) 0.1 % Cream Application Site: extremities x 4 and chest 1 Tube 07/31/2018 1 venlafaxine (EFFEXOR-XR) 37.5 MG CAPSULE SR 24 HR TAKE 1 CAPSULE BY MOUTH EVERY DAY 90 Cap 07/01/2020 1 documented as of this encounter ED Notes * Michelle Mills RN - 10/11/2020 3:43 PM CST Patient discharged. Discharge instructions and patient educational material reviewed with patient; questions and concerns addressed; patient verbalizes understanding, using teach back. Patient was given 2 prescriptions. Patient was informed no drinking alcohol, driving or operating heavy machinery while taking narcotics or muscle relaxants. Patient discharged per ambulatory mode with self as responsible republican. ONAL SALES MANAGER * Jacinta Layne RN - 10/11/2020 3:03 PM CST Pt medicated per provider orders. Pt educated on intended effects and side effects of medication and verbalized understanding, able to provide teach back of education. ONAL SALES MANAGER * Rajeev Babb PAC - 10/11/2020 2:24 PM CST Chief Complaint Patient presents with ??? Cough Irma Seymour is a 40 y.o. female with anxiety, asthma, COPD, panic attack, who presents to the EDc/o cough, chest congestion, SOB x 4 days. 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 Multiple encounters with COVID daily. Spo2 99% on RA. Patient dry coughing. She denies CP. Usining nebulizer at home with limited relief. Current Facility-Administered Medications Medication Dose Route Frequency Provider Last Rate Last Admin ??? albuterol (PROVENTIL HFA, VENTOLIN HFA) inhaler 2 Puff 2 Puff Inhalation Once Rajeev Babb PAC ??? predniSONE (DELTASONE) tablet 40 mg 40 mg Oral Once Rajeev Babb PAC Current Outpatient Medications Medication Sig Dispense Refill ??? albuterol 108 (90 Base) MCG/ACT Aerosol Solution INHALE 1-2 PUFFS BY INHALATION EVERY 4 HOURS NEEDED FOR WHEEZING OR COUGH 6.7 Inhaler 0 ??? Fluticasone-Salmeterol 55-14 MCG/ACT AEROSOL POWDER, BREATH ACTIVATED take 1 Puff by inhalation2 times daily. (Patient not taking: Reported on 07/26/2020) 1 Each 1 ??? HYDROcodone-acetaminophen (NORCO) 5-325 MG Tablet Take 1 Tab by mouth every 8 hours as needed for Moderate or more severe pain. 12 Tab 0 ??? ibuprofen (MOTRIN) 200 [...] (ALEVE PO) Take by mouth daily. ??? 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 ??? Anxiety ??? Asthma ??? Bronchitis ??? COPD (chronic obstructive pulmonary disease) ([facility]) ??? Depression ??? Heart palpitations ??? Panic attack ??? Sleep difficulties ??? Suicide attempt ([facility]) 09/2018 approx 1-2 years ago, drunk , [...] file Gets together: Not on file Attends yazidi service: Not on file Active member of [...] years old and 10 years old. BP 111/82 Pulse 87 Temp 97.6 ??F (36.4 ??C) (Tympanic) Resp 23 Ht 5' 3 (1.6 m) Wt 138 lb(62.6 kg) SpO2 98% BMI 24.45 kg/m?? Review of Systems Constitutional: Negative for chills, fatigue and fever. HENT: Positive for congestion. Negative for sore throat. Respiratory: Positive for cough, chest tightness and shortness of breath. Cardiovascular: Negative for chest pain and palpitations. Gastrointestinal: Negative for abdominal pain, constipation, diarrhea, nausea and vomiting. Genitourinary: Negative for dysuria, frequency, hematuria and urgency. Musculoskeletal: Positive for myalgias. Negative for arthralgias and back pain. Skin: Negative for color change and wound. Neurological: Negative for dizziness, light-headedness and headaches. All other systems reviewed and are negative. Physical Exam Vitals signs and nursing note reviewed. Constitutional: General: She is not in acute distress. Appearance: She is well-developed. She is not diaphoretic. HENT: Head: Normocephalic and atraumatic. Eyes: Pupils: Pupils are equal, round, and reactive to light. Neck: Musculoskeletal: Normal range of motion and neck supple. Thyroid: No thyromegaly. Cardiovascular: Rate and Rhythm: Normal rate and regular rhythm. Heart sounds: Normal heart sounds. No murmur. Pulmonary: Effort: Pulmonary effort is normal. No respiratory distress. Breath sounds: Examination of the right-upper field reveals wheezing. Examination of the left-upperfield reveals wheezing. Examination of the right- middle field reveals wheezing. Examination of the left-middle field reveals wheezing. Examination of the right-lower field reveals wheezing. Examination of the left-lower field reveals wheezing. Wheezing present. No rhonchi or rales. Chest: Chest wall: No tenderness. Abdominal: General: Bowel sounds are normal. There is no distension. Palpations: Abdomen is soft. There is no mass. Tenderness: There is no abdominal tenderness. There is no guarding or rebound. Musculoskeletal: Normal range of motion. General: No tenderness. Skin: General: Skin is warm and dry. Coloration: Skin is not pale. Findings: No erythema or rash. Neurological: Mental Status: She is alert and oriented to person, place, and time. Cranial Nerves: No cranial nerve deficit. Psychiatric: Behavior: Behavior normal. ECG Report Time:1402 Rhythm: sinus Rate: 91 Interpretation: normal axis, normal intervals with good R wave progression, no ST changes or elevations. Unchanged on comparison 05/17/2020. Procedures Imaging Results XR CHEST SINGLE VIEW PORTABLE (Final result) Result time 10/11/20 14:54:19 Procedure changed from XR CHEST SINGLE VIEW Final result by Moose Braxton MD (10/11/20 14:54:19) Impression: IMPRESSION: No consolidation. Narrative: EXAM DESCRIPTION: XR CHEST SINGLE VIEW PORTABLE REASON FOR STUDY: Nonproductive cough with shortness of breath and wheezing x4 days. TECHNIQUE: Frontal radiographic view of the chest acquired. COMPARISON: 05/17/2020 FINDINGS: LUNGS/PLEURA: No focal consolidation or pneumothorax. No pleural effusion. HEART/MEDIASTINUM: Heart size is normal. Normal mediastinal and hilar contours. HARDWARE/LINES/TUBES: None. BONES: Redemonstrated dextroscoliosis of the mid to lower thoracic spine. OTHER: No other significant finding. THIS IS AN ELECTRONICALLY VERIFIED FINAL REPORT 10/11/2020 2:51 PM - Electronically signed by Moose Braxton : Report ID: [id number] Reading Location: [id number] XR CHEST SINGLE VIEW (Canceled) MDM Coding Clinical Impression 1. Viral URI with cough COVID testing completed in the ED. Supportive care. PCP follow up in 2-3 days. Return to ED for worsening sxs. The patient remained stable throughout their ED stay. My clinical impression was discussed with thepatient/family. Labs and radiology results were reviewed with them. I gave them the opportunity to ask questions, and addressed them as completely as possible given the information available at present. The therapeutic plan was discussed, advised to take medications as instructed, instructions weregiven and the importance of primary care follow up was stressed and encouraged. The patient/family voiced understanding of the plan, indications to return, and the need for follow up. Cosigned by Navneet Garcia MD at 10/11/2020 3:57 PM REGIONAL SALES MANAGER ONAL SALES MANAGER ONAL SALES MANAGER * Michelle Mills RN - 10/11/2020 1:55 PM CST Patient presents ambulatory to triage with complaints of non-productive cough, wheezing and shortness of breath onset approximately 4 days ago. Uses nebulizer and inhaler at home without relief. History of bronchitis. Denies any fevers. Currently afebrile. ONAL SALES MANAGER documented in this encounter Plan of Treatment Upcoming Encounters Date Type Department Care Team (Late st Contact Info) Description 03/21/2025 4:30 PM CDT Office Visit [facility] - Primary Care - [place] [address] [place] [address] Shravan Burgos, PAC [address] [place] [address] documented as of this encounter Goals Goal Patient Goal Type Associated Problems Recent Progress Patient-Stated? Author [facility] Behavioral [facility] On track(2019 9:50 AM CDT) Yes Bridgeton, Eloise E, SENIOR C WEB DEVELOPER Note: Irma reported her goal for psychotherapy [...] Date/Time Associated Diagnosis Comments SARS-COV-2 BY MOLECULAR STAT 10/11/2020 3:45 PM REGIONAL SALES MANAGER MDI TREATMENT RT-INITIAL STAT 10/11/2020 3:06 PM REGIONAL SALES MANAGER XR CHEST SINGLE VIEW PORTABLE STAT 10/11/2020 2:33 PM REGIONAL SALES MANAGER EKG 12 LEAD STAT 10/11/2020 2:02 PM REGIONAL SALES MANAGER documented in this encounter Results * SARS-COV-2 BY MOLECULAR (10/11/2020 3:45 PM REGIONAL SALES MANAGER) SARSCOV2 NOT DETECTED (Referenc e Range for this test is Not Detected) [facility] THERMOFISHER FAST DX 10/12/2020 11:02 PM REGIONAL SALES MANAGER [facility] Swab NASOPHARYNGEAL STRUCTURE / Unknown Non-Phlebotomy Collection / Unknown 10/11/2020 3:45 PM REGIONAL SALES MANAGER 10/11/2020 3:47 PM REGIONAL SALES MANAGER Narrative [facility] - 10/12/2020 11:02 PM REGIONAL SALES MANAGER Authorized Fact Sheets about this test for providers and patients are available at: https://www.fda.gov/medical-devices/canvhlbwz-mkuebbpzkc-dwgpiup-devices/emergen cy-us e-authorizations us Rajeev Babb PAC MICROBIOLOGY - GENER AL ORDERABLES Final Result [facility] [address] [place] [address], [place] * XR CHEST SINGLE VIEW PORTABLE (10/11/2020 2:33 PM REGIONAL SALES MANAGER) Anatomical Region Laterality Modality Chest N/A Digital Radiogra phy 10/11/2020 2:51 PM REGIONAL SALES MANAGER Impressions 10/11/2020 2:54 PM REGIONAL SALES MANAGER IMPRESSION: ?? No consolidation. Narrative 10/11/2020 2:54 PM REGIONAL SALES MANAGER EXAM DESCRIPTION: ?? XR CHEST SINGLE VIEW PORTABLE REASON FOR STUDY: ?? Nonproductive cough with shortness of breath and wheezing x4 days. TECHNIQUE: ?? Frontal radiographic view of the chest acquired. COMPARISON: ?? 05/17/2020 FINDINGS: ??LUNGS/PLEURA: ??No focal consolidation or pneumothorax. No pleural effusion. HEART/MEDIASTINUM: ??Heart size is normal. Normal mediastinal and hilar contours. HARDWARE/LINES/TUBES: ??None. BONES: ??Redemonstrated dextroscoliosis of the mid to lower thoracic spine. OTHER: ??No other significant finding. THIS IS AN ELECTRONICALLY VERIFIED FINAL REPORT 10/11/2020 2:51 PM - Electronically signed by Moose Braxton : D: ??10/11/2020 2:51 PM T: ??10/11/2020 2:51 PM Report ID: [id number] Reading Location: ??[id number] Procedure Note Moose Braxton MD - 10/11/2020 EXAM DESCRIPTION: XR CHEST SINGLE VIEW PORTABLE REASON FOR STUDY: Nonproductive cough with shortness of breath and wheezing x4 days. TECHNIQUE: Frontal radiographic view of the chest acquired. COMPARISON: 05/17/2020 FINDINGS: LUNGS/PLEURA: No focal consolidation or pneumothorax. No pleural effusion. HEART/MEDIASTINUM: Heart size is normal. Normal mediastinal and hilar contours. HARDWARE/LINES/TUBES: None. BONES: Redemonstrated dextroscoliosis of the mid to lower thoracic spine. OTHER: No other significant finding. THIS IS AN ELECTRONICALLY VERIFIED FINAL REPORT 10/11/2020 2:51 PM - Electronically signed by Moose Braxton : Report ID: [id number] Reading Location: [id number] IMPRESSION: No consolidation. Rajeev Babb PAC IMG DIAGNOSTIC ORDER MARK Final Result * EKG 12 LEAD (10/11/2020 2:02 PM REGIONAL SALES MANAGER) Ventricular Rate BPM EXTERNAL EKG Atrial Rate BPM EXTERNAL EKG P-R Interval 124 ms EXTERNAL EKG QRS Duration 78 ms EXTERNAL EKG Q-T Duration 344 ms EXTERNAL EKG QTC CALCULATION 424 ms EXTERNAL EKG P [place] 24 degrees EXTERNAL EKG R [place] 18 degrees EXTERNAL EKG T [place] 29 degrees EXTERNAL EKG 10/11/2020 2:02 PM REGIONAL SALES MANAGER Impressions EXTERNAL EKG - 10/12/2020 12:22 PM REGIONAL SALES MANAGER Sinus rhythm Within normal limits as previously Comparison Summary: No significant change Summary: Normal ECG Compared with:05/17/2020 heart rate has increased Confirmed by Mario Salomon [id number] on 10/12/2020 12:22:39 PM Narrative Procedure Note Ward Martin MD - 10/12/2020 IMPRESSION: Sinus rhythm Within normal limits as previously Comparison Summary: No significant change Summary: Normal ECG Compared with:05/17/2020 heart rate has increased Confirmed by Mario Salomon [id number] on 10/12/2020 12:22:39 PM Navneet Garcia MD IMG ECG ORDERABLES Final Re sult EXTERNAL EKG documented in this encounter Visit Diagnoses Diagnosis Viral URI with cough- Primary Acute upper respiratory infections of unspecified site documented in this encounter Administered Medications Inactive Administered Medications - up to 3 most recent administrations Medication Order MAR Action Action Date Dose Rate Site albuterol (PROVENTIL HFA, VENTOLIN HFA) inhaler 2 Puff 2 Puff, Inhalation, ONCE, 1 dose, On Wed10/11/20 at 1500, For disposal - Place in Purple Disposal Bin or bag and return to Pharmacy Given 10/11/2020 3:06 PM REGIONAL SALES MANAGER 2 Puffs predniSONE (DELTASONE) tablet 40 mg 40 mg, Oral, ONCE, 1 dose, On Wed10/11/20 at 1500 Given 10/11/2020 3:02 PM REGIONAL SALES MANAGER 40 mg documented in this encounter Active and Recently Administered Medications Times are shown in REGIONAL SALES MANAGER. Scheduled Medication Order 10/09/2020 10/10/2020 10/11/2020 albuterol (PROVENTIL HFA, VENTOLIN HFA) inhaler 2 Puff (COMPLETED) 2 Puff, Inhalation, ONCE, 1 dose, On Wed10/11/20 at 1500, For disposal - Place in Purple Disposal Bin or bag and return to Pharmacy [id number] (Given - Provid er: Brinda Robertson RRT) predniSONE (DELTASONE) tablet 40 mg (COMPLETED) 40 mg, Oral, ONCE, 1 dose, On Wed10/11/20 at 1500 1502 (Given - Provid er: Jacinta Layne RN) documented in this encounter Additional Health Concerns Infection Onset Date Last Indicated Resolved Time COVID - 19 10/11/2020 10/11/2020 10/13/2020 8:16 AM REGIONAL SALES MANAGER Assessment Noted Time PHQ-9 Depression Total Score: 13 020 2:00 PM CDT documented as of this encounter Care Teams Assurance Manager Relationship Specialty Start Date End Date Amaya Kowalski, ELECTRICAL SUBCONTRACTOR, PATTERN WORKER [address] [place] [address] PCP - General Advanced Practice Nurse 06/10/18 documented as of this encounter
--- OUTSIDE RECORDS SUMMARY | 2024-11-30 17:24 | XMS_ITS | Encounter Summary ---
Author Organization [facility] Care Team Providers Care Draw Off Worker Name Role Phone Amaya Kowalski APRN, PILE HEADER Primary Care Provider Encounter Details Date Type Department Care Team (Latest Contact Info) Description 10/11/2020 Travel Social History Tobacco Use Types Packs/Day [...] COVID-19? No / Unsure 10/11/2020 12:13 PM CEMENT CRUSHER OPERATOR documented as of this encounter Plan of Treatment Upcoming Encounters Date Type Department Care Team (Late st Contact Info) Description 03/21/2025 4:30 PM CDT Office Visit [facility] - Primary Care - [place] [address] [place] [address] Shravan Burgos, PAC [address] [place] [address] documented as of this encounter Goals Goal Patient Goal Type Associated Problems Recent Progress Patient-Stated? Author [facility] On track(2019 9:50 AM CDT) Yes Eloise Jenkins LCPC Note: Irma reported her goal for psychotherapy is to help me be able to deal with things in the present and in her past that are contributing to low and anxious mood. Goal Reviewed with: patient Readiness to change: Thinking about making a change Department associated with goal: [facility] Steps to [...] (current and past) that trigger mood concerns. [facility] On track(2019 9:50 AM CDT) No Eloise Jenkins LCPC Note: Irma will engage in a plan of action to improve emotional and mental wellbeing. Goal Reviewed with: patient Readiness to change: Not yet ready to make a change Department associated with goal: [facility] Steps to [...] - 19 10/11/2020 10/11/2020 10/13/2020 8:16 AM CEMENT CRUSHER OPERATOR Assessment Noted Time PHQ-9 Depression Total Score: 020 2:00 PM CDT documented as of this encounter Care Teams Draw Off Worker Relationship Specialty Start Date End Date Amaya Kowalski, [employer], PILE HEADER [address] [place] [address] PCP - General Advanced Practice Nurse 06/10/18 documented as of this encounter
--- OUTSIDE RECORDS SUMMARY | 2024-11-30 17:24 | XMS_ITS | Encounter Summary ---
Author Organization [facility] Address [address] [place] [address] Phone Care Team Providers Care Office Correspondent Name Role Phone Amaya Kowalski APRN, CNP Primary Care Provider Reason for Visit * Reason Onset Date Comments Medication Refill Medication Refill 10/28/2020 Encounter Details Date Type Department Care Team ([facility] st Contact Info) Description 10/22/2020 Telephone [facility] - Primary Care - [place] [address] [place] [address] Amaya Kwoalski APRN, NETWORK DIAGNOSTIC SUPPORT SPECIALIST [address] [place] [address] Medication Refill; Medication Refill Social History Tobacco Use Types [...] Coronavirus / COVID-19? Yes 10/15/2020 10:41 AM STORES CLERK documented as of this encounter Miscellaneous Notes * Telephone Encounter - Marian Rahman - 10/28/2020 9:44 AM CST Patient will be in for script and is stating that she is on a time limit because she has to be backto work at 2:00 and work second shift as well Patient was not told about UDS upon arrival to the office. ES CLERK * Telephone Encounter - Latia Garcia CMA - 10/23/2020 1:57 PM CST UDS order placed. Script placed in lab. Left message notifying patient that script is ready to be picked up in office. ES CLERK * Telephone Encounter - Fox Jesus PAC - 10/23/2020 1:55 PM STORES CLERK Refill approved. [place]ET[place] SCIENT[place] reviewed. 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 Please pend UDS ES CLERK * Telephone Encounter - Latia Garcia CMA - 10/23/2020 9:07 AM CST Medication failed the protocol, provider to review and approve the medication order if appropriate. Requested Prescriptions Pending Prescriptions Disp Refills albuterol 108 (90 Base) MCG/ACT Aerosol Solution [Pharmacy Med Name: ALBUTEROL HFA (PROVENTIL) INH]6.7 Inhaler 0 Sig: INHALE 1-2 PUFFS BY INHALATION EVERY 4 HOURS NEEDED FOR WHEEZING OR COUGH Pulmonology: Beta Agonists - Albuterol & Levalbuterol Failed - 10/23/2020 9:07 AM Failed - May refill 2 inhalers, 0 refills one time since last office visit. May refill #50 nebulizer vials, 0 refills for albuterol or #48 vials, 0 refills for Xopenex one time since last office visit. Passed - Valid encounter within last 6 months Past Office Visits Recent Outpatient Visits 2 months ago Injury of left foot, initial encounter [facility] Amaya Kowalski APN, CNP 6 months ago Moderate episode of recurrent major depressive disorder (HCC) [facility] - Amaya Yoder APN, CNP 1 year ago Anxiety [facility] - Amaya Yoder APN, CNP 1 year ago Chronic bronchitis with productive mucopurulent cough (HCC) [facility] - Fox Conde PAC 1 year ago Chronic bronchitis, unspecified chronic bronchitis type (HCC) [facility] - Amaya Yoder APN, CNP Upcoming Appointments Future Appointments In 1 week SAHCMAM1 [facility] Mammography, [facility] In 1 week SAHCUSTECH2; SAHCUS2 [facility] Ultrasound, [facility] SIGN INSTALLER - Recent and Past Visits Recent Visits Date Type Provider Dept 07/26/20 Office Visit Am[facility]owals[facility] APN, CNP [facility] 04/[facility]/20 Office Visit Amaya Kowalski APN, CNP [facility] 08/17/19 Office Visit Am[facility]owalski APN, CNP [facility] [place] Showing recent visits within past 460 days with a meds authorizing provider and meeting all other requirements Future Appointments No visits were found meeting these conditions. Showing future appointments within next 90 days with a meds authorizing provider and meeting all other requirements Passed - Last BP in normal range BP Readings from Last 1 Encounters: 10/15/20 116/84 LORazepam (ATIVAN) 1 MG Tablet [Pharmacy Med Name: LORAZEPAM 1 MG TABLET] 30 Tab 0 Sig: TAKE 1 TABLET BY MOUTH AT BEDTIME NEEDED FOR ANXIETY Not Delegated - Anesthesia: Anesthetics & Sedatives Failed - 10/23/2020 9:07 AM Failed - This refill cannot be delegated Passed - Valid encounter within last 6 months Past Office Visits Recent Outpatient Visits 2 months ago Injury of left foot, initial encounter [facility] Amaya Kowalski APN, CNP 6 months ago Moderate episode of recurrent major depressive disorder (HCC) [facility] - Amaya Yoder APN, CNP 1 year ago Anxiety [facility] - Amaya Yoder APN, CNP 1 year ago Chronic bronchitis with productive mucopurulent cough (HCC) [facility] - Fox Conde PAC 1 year ago Chronic bronchitis, unspecified chronic bronchitis type (HCC) [facility] - Amaya Yoder APN, CNP Upcoming Appointments Future Appointments In 1 week SAHCMAM1 [facility] Mammography, [facility] In 1 week SAHCUSTECH2; SAHCUS2 [facility] Ultrasound, [facility] SIGN INSTALLER - Recent and Past Visits Recent Visits Date Type Provider Dept 07/26/20 Office Visit Amaya Kowalski APN, CNP [facility] 04/05/20 Office Visit Amaya Kowalski APN, CNP [facility] 08/17/19 Office Visit [facility] Showing recent visits within past 460 days with a meds authorizing provider and meeting all other requirements Future Appointments No visits were found meeting these conditions. Showing future appointments within next 90 days with a meds authorizing provider and meeting all other requirements ES CLERK * Telephone Encounter - Latia Garcia CMA - 10/23/2020 9:06 AM CST Called patient to schedule follow-up. States that she is currently working 2 jobs and just started her second job and is unsure of her schedule and will call back to schedule her appointment when sheknows that schedule. ES CLERK documented in this encounter Plan of Treatment Upcoming Encounters Date Type Department Care Team (Late st Contact Info) Description 03/21/2025 4:30 PM CDT Office Visit [facility] - Primary Care - [place] [address] [place] [address] Shravan Burgos PAC [address] [place] [address] documented as of this encounter Goals [...] making a change Department associated with goal: [facility] Steps to [...] make a change Department associated with goal: [facility] Steps to [...] this encounter Results * URINE DRUG SCREEN (10/29/2020) Urine Fox Jesus PAC URINE ORDERABLES Final R esult documented in this encounter Visit Diagnoses Diagnosis Anxiety- Primary Anxiety state, unspecified documented in this encounter Additional Health Concerns Assessment Noted Time PHQ-9 Depression Total Score: 13 020 2:00 PM CDT documented as of this encounter Care Teams Office Correspondent Relationship Specialty Start Date End Date Amaya Kowalski, EDGE BRUSHER, NETWORK DIAGNOSTIC SUPPORT SPECIALIST [address] [place] [address] PCP - General Advanced Practice Nurse 06/10/18 documented as of this encounter
--- OUTSIDE RECORDS SUMMARY | 2024-11-30 17:24 | XMS_ITS | Encounter Summary ---
Author Organization [facility] Address [address] [place] [address] Phone Care Team Providers Care Rayon Winder Name Role Phone Amaya Kowalski APRN, TALENT ACQUISITION COORDINATOR Primary Care Provider Reason for Visit * Reason Onset Date Comments ED Follow-up 10/15/2020 Encounter Details Date Type Department Care Team (Late st Contact Info) Description 10/15/2020 Telephone [facility] [address] [place] [address] Amaya Kowalski, MEGAN, TALENT ACQUISITION COORDINATOR [address] [place] [address] ED Follow-up Social History Tobacco Use Types Packs/Day Years [...] COVID-19? No / Unsure 10/11/2020 12:13 PM NURSE STAFF documented as of this encounter Miscellaneous Notes * Telephone Encounter - Huong Polo RN - 10/15/2020 9:15 AM CST Pt is calling to schedule Hospital/ED/Prompt-Care follow up appointment. Hospital/ED/Prompt-Care Site: [facility] ED Records Requested: Reason for Hospitalization/ED/Prompt-Care Visit: cough Admission Date (if applicable): 10/11/20 Discharge Date (if applicable): 10/11/20 Medication Changes (if applicable): prednisone, tessalon pearls Imaging Completed/Referrals Needed (if applicable chest XRAY NEG COVID This RN feels needing Seen Spoke to [facility] Rousseau Recommended PC Called PC to give report Using inhaler and neb as directed States no real relief with inhaler or nebulizer Appointment Scheduled: Routed update to provider to notify. E STAFF documented in this encounter Plan of Treatment Upcoming Encounters Date Type Department Care Team (Late st Contact Info) Description 03/21/2025 4:30 PM CDT Office Visit [facility] - Primary Care - [place] [address] [place] [address] Shravan Burgos PAC [address] [place] [address] documented as of this encounter Goals Goal Patient Goal Type Associated Problems Recent Progress Patient-Stated? Author Behavioral Health Behavioral Health On track(2019 9:50 AM CDT) Yes Harbeson, Eloise E, EXCHANGE TELLER Note: Irma reported her goal for psychotherapy is to help me be able to deal with things in the present and in her past that are contributing to low and anxious mood. Goal Reviewed with: patient Readiness to change: Thinking about making a change Department associated with goal: [facility] Steps to achieve [...] change Department associated with goal: [facility] Steps to achieve [...] documented as of this encounter Care Teams Rayon Winder Relationship Specialty Start Date End Date Amaya Kowalski, EMERGENCY DETAIL DRIVER, TALENT ACQUISITION COORDINATOR [address] [place] [address] PCP - General Advanced Practice Nurse 06/10/18 documented as of this encounter
--- OUTSIDE RECORDS SUMMARY | 2024-11-30 17:25 | XMS_ITS | Encounter Summary ---
Author Organization [facility] Address [address] [place] [address] Phone Care Team Providers Care Medicaid Eligibility Specialist Name Role Phone Amaya Kowalski APRN, CASTING MACHINE SET UP OPERATOR Primary Care Provider Encounter Details Date Type Department Care Team (Late st Contact Info) Description 09/18/2020 Transcribe Orders [facility] Central Scheduling [address] [place] [id number] Veronika Orantes APRN, CASTING MACHINE SET UP OPERATOR 4 [facility] [address] [place] [address] Other abnormal and inconclusive findings on diagnostic imaging of breast (Primary Dx) Social History Tobacco Use Types [...] have Coronavirus / COVID-19? No / Unsure 09/13/2020 3:15 PM CDT documented as of this encounter Plan of Treatment Upcoming Encounters Date Type Department Care Team (Late st Contact Info) Description 03/21/2025 4:30 PM CDT Office Visit [facility] - Primary Care - [place] [address] [place] [address] Shravan Burgos, PAPI [address] [place] [address] documented as of this encounter [...] as of this encounter Visit Diagnoses Diagnosis Other abnormal and inconclusive findings on diagnostic imaging of breast- Primary documented in this encounter Additional Health Concerns Assessment Noted Time PHQ-9 Depression Total Score: 13 020 2:00 PM CDT documented as of this encounter Care Teams Medicaid Eligibility Specialist Relationship Specialty Start Date End Date Amaya Kowalski, HULL SORTER, CASTING MACHINE SET UP OPERATOR [address] [place] [address] PCP - General Advanced Practice Nurse 06/10/18 documented as of this encounter
--- OUTSIDE RECORDS SUMMARY | 2024-11-30 17:25 | XMS_ITS | Encounter Summary ---
Author Organization [facility] Address [address] [place] [address] Phone Care Team Providers Care Mold Mechanic Name Role Phone Amaya Kowalski APRN, DOUGLAS Primary Care Provider Reason for Visit * Reason Comments Medication Refill Encounter Details Date Type Department Care Team ([facility] st Contact Info) Description 09/20/2020 Refill [facility] - Primary Care - [place] [address] [place] [address] Fox Jesus, PAPI Medication Refill [...] Encounter - Amaya Kowalski APN, CNP - 09/23/2020 8:19 AM CDT [place] prescription monitoring site reviewed. Medication approved. * Telephone Encounter - Emperatriz Gilliam RN - 09/21/2020 3:01 PM CDT Requested Prescriptions Pending Prescriptions Disp Refills LORazepam (ATIVAN) 1 MG Tablet [Pharmacy Med Name: LORAZEPAM 1 MG TABLET] 30 Tab 0 Sig: TAKE 1 TABLET BY MOUTH AT BEDTIME NEEDED FOR ANXIETY Not Delegated - Anesthesia: Anesthetics & Sedatives Failed - 09/20/2020 3:54 PM Failed - This refill cannot be delegated Passed - Valid encounter within last 6 months Past Office Visits Recent Outpatient Visits 1 month ago Injury of left foot, initial encounter [facility] - Amaya Rodriguez APN, CNP 5 months ago Moderate episode of recurrent major depressive disorder (HCC) [facility] Amaya Yoder APN, CNP 1 year ago Anxiety [facility] - Amaya Yoder APN, CNP 1 year ago Chronic bronchitis with productive mucopurulent cough (HCC) [facility] - Fox Conde PAC 1 year ago Chronic bronchitis, unspecified chronic bronchitis type (HCC) [facility] - Amaya Yoder APN, CNP Upcoming Appointments Future Appointments In 2 weeks [facility], [facility] In 2 weeks SAHCUSTECH2; SAHCUS1 [facility] Ultrasound, [facility] SET DESIGNER - Recent and Past Visits Recent Visits Date Type Provider Dept 07/26/20 Office Visit Amaya Kowalski, K[place], DOUGLAS [facility] [address] 04/05/20 Office Visit Amaya Kowalski APN, CNP [facility] 08/17/19 Office Visit Amaya Kowalski APN, DOUGLAS [place] Showing recent visits within past 460 [...] 03/21/2025 4:30 PM CDT Office Visit [facility] - Primary Care - [place] [address] [place] [address] Shravan Burgos PAC [address] [place] [address] documented as of this encounter Goals Goal [...] as of this encounter Care Teams Mold Mechanic Relationship Specialty Start Date End Date Amaya Kowalski, VETERINARY PRACTICE MANAGER, ELIGIBILITY AND OCCUPANCY INTERVIEWER [address] [place] [address] PCP - General Advanced Practice Nurse 06/10/18 documented as of this encounter
--- OUTSIDE RECORDS SUMMARY | 2024-11-30 17:25 | XMS_ITS | Encounter Summary ---
Author Organization [facility] Address [address] [place] [address] Phone Care Team Providers Care Telegraph Messenger Name Role Phone Amaya Kowalski APRN, DOUGLAS Primary Care Provider Sravani Ramsay MD Primary Care Provider [phone] Arnold Roberts MD Unavailable Shravan Burgos Primary Care Provider + [phone] Reason for Visit * Reason Comments Medication Refill Encounter Details Date Type Department Care Team (Late st Contact Info) Description 08/22/2020 Refill [facility] [address] [place] [address] Amaya Kowalski APRN, MOLD BREAKER [address] [place] [address] Medication Refill Social History Tobacco [...] have Coronavirus / COVID-19? No / Unsure 07/26/2020 9:08 AM CDT documented as of this encounter Miscellaneous Notes * Telephone Encounter - Fox Jesus PAC - 08/22/2020 3:08 PM CDT Rx refill approved. * Telephone Encounter - Alyssa Gomez RN - 08/22/2020 1:22 PM CDT Medication routed to provider for review and approval of medication order(s) if appropriate. Requested Prescriptions Pending Prescriptions Disp Refills LORazepam (ATIVAN) 1 MG Tablet [Pharmacy Med Name: LORAZEPAM 1 MG TABLET] 30 Tab 0 Sig: TAKE 1 TABLET BY MOUTH AT BEDTIME NEEDED FOR ANXIETY Not Delegated - Anesthesia: Anesthetics & Sedatives Failed - 08/22/2020 8:33 AM Failed - This refill cannot be delegated Passed - Valid encounter within last 6 months Past Office Visits Recent Outpatient Visits 3 weeks ago Injury of left foot, initial [facility] - Amaya Rodriguez APN, DOUGLAS 4 months ago Moderate episode of recurrent major depressive disorder (HCC) [facility] - Amaya Yoder APN, DOUGLAS 1 year [address] [facility] - Amaya Yoder APN, DOUGLAS 1 year ago Chronic bronchitis with productive mucopurulent cough (HCC) [facility] - Fox Conde PAC 1 year ago Chronic bronchitis, unspecified chronic bronchitis type (HCC) [facility] - Amaya Yoder APN, CNP Upcoming Appointments SIEBEL DEVELOPER - Recent and Past Visits Recent Visits Date Type Provider Dept 07/26/20 Office Visit Amaya Kowalski APN, CNP [facility] 04/05/20 Office Visit Amaya Kowalski APN, CNP [facility] 08/17/19 Office Visit Amaya Kowalski APN, CNP [facility] Showing recent visits within past 460 days [...] 03/21/2025 4:30 PM CDT Office Visit [facility] Primary Care - [place] [address] [place] [address] Shravan Burgos PAC [address] [place] [address] documented as of this encounter Goals Goal Patient Goal Type Associated Problems Recent Progress Patient-Stated? Author Behavioral Health Behavioral Health On track(2019 9:50 AM CDT) Yes Eloise Jenkins, [facility] Note: Irma reported her goal for [...] - 19 10/11/2020 10/11/2020 10/13/2020 8:16 AM ULTRASOUND MANAGER COVID - 19 11/26/2022 11/26/2022 11/26/2022 4:47 PM ULTRASOUND MANAGER COVID - 19 11/26/2022 11/26/2022 12/06/2022 12:1 9 AM ULTRASOUND MANAGER Assessment Noted Time PHQ-9 Depression Total Score: 13 020 2:00 PM CDT documented as of this encounter Care Teams Telegraph Messenger Relationship Specialty Start Date End Date Amaya Kowalski, MANAGER MAIL, MOLD BREAKER [address] [place] [address] PCP - General Advanced Practice Nurse 06/10/18 04/22/23 Sravani Ramsay MD [address] [place] [address] PCP - General Family Medicine 04/23/23 12/30/23 Shravan Burgos, [facility] [address] [place] [address] PCP - General Physician Degreaser 12/31/23 Arnold Roberts MD [address] [place] [address] Consulting Physician Pulmonary Disease 07/26/23 documented as of this encounter
--- OUTSIDE RECORDS SUMMARY | 2024-11-30 17:25 | XMS_ITS | Encounter Summary ---
Author Organization [facility] Address [address] [place] [address] Phone Care Team Providers Care Automatic Spreader Operator Name Role Phone Amaya Kowalski APRN, CNP Primary Care Provider Reason for Referral * Radiology Services (Routine) - Closed Specialty Diagnoses / Procedures Referred By Contac t Referred To Contact Radiology Diagnoses Pelvic and perineal pain Procedures US PELVIS COMPLETE WITH TRANSVAGINAL Veronika Orantes APRN, CNP [address] [facility] [address] Phone: tel: fax: Referral ID Status Reason Start Date Expiration Date Visits Re quested Visits Authorized [id number] Closed 09/04/2020 1 1 Reason for Visit * Radiology Services (Routine) - Closed Specialty Diagnoses / Procedures Referred By Contac t Referred To Contact Radiology Diagnoses Pelvic and perineal pain Procedures US PELVIS COMPLETE WITH TRANSVAGINAL Veronika Orantes APRN, CNP [address] [facility] [address] Phone: tel: fax: Referral ID Status Reason Start Date Expiration Date Visits Re quested Visits Authorized [id number] Closed 09/04/2020 1 1 Encounter Details Date Type Department Care Team (Latest Contact Info) Description 09/13/2020 3:24 PM CDT - 09/13/2020 3:58 PM CDT Hospital Encounter [facility] Ultrasound [address] [place] [address] Veronika Orantes APRN, 1ST PRESSMAN ON WEB PRESS [address] [facility] [address] [place] [address] Discharge Disposition: Discharged to home or Selfcare [...] Solution take 1-2 Puffs by inhalation every 4 hours as needed for Wheezing or Cough. 1 Inhaler 04/05/2020 0 Fluticasone-Salm eterol 55-14 MCG/ACT AEROSOL POWDER, [...] AT BEDTIME NEEDED FOR ANXIETY 30 Tab 08/22/2020 0 Naproxen Sodium (ALEVE PO) Take by mouth daily. 1 triamcinolone (KENALOG) 0.1 % Cream Application Site: extremities x 4 and chest 1 Tube 07/31/2018 1 venlafaxine (EFFEXOR-XR) 37.5 MG CAPSULE SR 24 HR TAKE 1 CAPSULE BY MOUTH EVERY DAY 90 Cap 07/01/2020 1 documented as of this encounter Plan of Treatment Upcoming Encounters Date Type Department Care Team (Late st Contact Info) Description 03/21/2025 4:30 PM CDT Office Visit [facility] - Primary Care - [place] [address] [place] [address] Shravan Burgos PAC [address] [place] [address] documented as of [...] making a change Department associated with goal: [facility] Steps to achieve [...] make a change Department associated with goal: [facility] Steps to achieve [...] Procedure Name Priority Date/Time Associated Diagnosis Comments US PELVIS COMPLETE WITH TRANSVAGINAL Routine 09/13/2020 4:07 PM CDT Pelvic and perineal pain documented in this encounter Results * US PELVIS COMPLETE WITH TRANSVAGINAL (09/13/2020 4:07 PM CDT) Anatomical Region Laterality Modality Abdomen N/A Ultrasound 09/14/2020 6:29 AM CDT Impressions 09/14/2020 6:31 AM CDT IMPRESSION: ?? No significant abnormality. ??IUD in satisfactory position. ??4 cm left adnexal cyst. Narrative 09/14/2020 6:31 AM CDT EXAM DESCRIPTION: ?? US PELVIS COMPLETE WITH TRANSVAGINAL REASON FOR STUDY: ?? Pelvic and perineal pain for 2 months. TECHNIQUE: ??Ultrasound of the pelvic contents was performed with ?? transabdominal and transvaginal transducer. ??Grayscale and color doppler techniques were utilized. COMPARISON: ?? None FINDINGS: ??UTERUS: ??The uterus is anteverted. The uterus is ?? homogenous in echotexture and measures ??7.2 x 4.7 cm. ENDOMETRIUM: The endometrium measures ??there is an IUD in place in thickness. RIGHT OVARY: The right ovary measures ??2.9 x 2.3 cm. ??There is documentation of color Doppler flow in the right ovary. The right ovary appears unremarkable. LEFT OVARY: The left ovary measures ??4.2 x 3.7 cm. ??4 cm left adnexal cyst. ??This is likely benign there is some mural nodularity. PELVIC FLUID: ??There is no evidence of free fluid in the pelvis. OTHER: ??No other significant findings. THIS IS AN ELECTRONICALLY VERIFIED FINAL REPORT 09/14/2020 6:29 AM - Electronically signed by Zbigniew Flores M.D. NC: LULA D: ??09/14/2020 6:29 AM T: ??09/14/2020 6:29 AM Report ID: [id number] Reading Location: ??[id number] Procedure Note Zbigniew Flores MD - 09/14/2020 EXAM DESCRIPTION: US PELVIS COMPLETE WITH TRANSVAGINAL REASON FOR STUDY: Pelvic and perineal pain for 2 months. TECHNIQUE: Ultrasound of the pelvic contents was performed with transabdominal and transvaginal transducer. Grayscale and color doppler techniques were utilized. COMPARISON: None FINDINGS: UTERUS: The uterus is anteverted. The uterus is homogenous in echotexture and measures 7.2 x 4.7 cm. ENDOMETRIUM: The endometrium measures there is an IUD in place in thickness. RIGHT OVARY: The right ovary measures 2.9 x 2.3 cm. There is documentation of color Doppler flow in the right ovary. The right ovary appears unremarkable. LEFT OVARY: The left ovary measures 4.2 x 3.7 cm. 4 cm left adnexal cyst. This is likely benign there is some mural nodularity. PELVIC FLUID: There is no evidence of free fluid in the pelvis. OTHER: No other significant findings. THIS IS AN ELECTRONICALLY VERIFIED FINAL REPORT 09/14/2020 6:29 AM - Electronically signed by Zbigniew Flores M.D. NC: LULA Report ID: [id number] Reading Location: [id number] IMPRESSION: No significant abnormality. IUD in satisfactory position. 4 cm left adnexal cyst. us Veronika Orantes APRN, CNP [facility] US ORDERABLES Final R esult documented in this encounter Visit Diagnoses Diagnosis Pelvic and perineal pain Unspecified symptom associated with female genital organs documented in this encounter Additional Health Concerns Assessment Noted Time PHQ-9 Depression Total Score: 13 020 2:00 PM CDT documented as of this encounter Care Teams Automatic Spreader Operator Relationship Specialty Start Date End Date Amaya Kowalski APRN, 1ST PRESSMAN ON WEB PRESS [address] [place] [address] PCP - General Advanced Practice Nurse 06/10/18 documented as of this encounter
--- OUTSIDE RECORDS SUMMARY | 2024-11-30 17:25 | XMS_ITS | Encounter Summary ---
Author Organization [facility] Address [address] [place] [address] Phone Care Team Providers Care Telecommunication Engineer Name Role Phone Amaya Kowalski APRN, CNP Primary Care Provider Encounter Details Date Type Department Care Team (Latest Contact Info) Description 07/26/2020 1:48 PM CDT - 07/26/2020 11:59 PM CDT [facility] [place] [address] [place] [address] Amaya Kowalski APRN, CNP [address] [place] [address] Discharge Disposition: Discharged to home or Selfcare [...] AM CDT documented as of this encounter Medications [...] AT BEDTIME NEEDED FOR ANXIETY 30 Tab 07/23/2020 0 Naproxen Sodium (ALEVE PO) Take by [...] Description 03/21/2025 4:30 PM CDT Office Visit [facility] - Primary Care - [place] [address] [place] [address] Shravan Burgos PAC [address] [place] [address] documented as of this encounter [...] make a change Department associated with goal: [facility] Steps to [...] Name Priority Date/Time Associated Diagnosis Comments XR FOOT 3 OR MORE VIEWS LEFT Routine 07/26/2020 1:56 PM CDT Injury of left foot, initial encounter documented in this encounter Results * XR FOOT 3 OR MORE VIEWS LEFT (07/26/2020 1:56 PM CDT) Anatomical Region Laterality Modality LOWER EXTREMITY, foot Left Digital Ra diography 07/29/2020 9:44 AM CDT Impressions 07/29/2020 9:47 AM CDT IMPRESSION: ?? Acute nondisplaced fracture of the left 5th toe proximal phalanx. Narrative 07/29/2020 9:47 AM CDT EXAM DESCRIPTION: ?? XR FOOT 3 OR MORE VIEWS LEFT REASON FOR STUDY: ?? Pain involving the right 5th toe for 1 week. ?? Patient has reportedly hit the toe on several things. TECHNIQUE: ?? AP, lateral and oblique radiographic views acquired of the left foot. COMPARISON: ?? Left ankle radiographs 12/26/2018 FINDINGS: ??BONES/JOINTS: ??There is an acute nondisplaced spiral fracture involving the proximal shaft of the 5th digit proximal phalanx. ??No intra-articular extension is identified. ??There is no dislocation. ??There is mild osteoarthritic change at the 1st metatarsophalangeal joint. ??Stable benign-appearing 4 mm sclerotic lesion within the anterior calcaneus. ??No suspicious osseous lesion. Small to moderate plantar calcaneal spur again noted. SOFT TISSUES: ??Soft tissue swelling of the 5th digit. OTHER: ??No other significant finding. THIS IS AN ELECTRONICALLY VERIFIED FINAL REPORT 07/29/2020 9:44 AM - Electronically signed by Rajeev Castrejon M.D., MD: D: ??07/29/2020 9:44 AM T: ??07/29/2020 9:44 AM Report ID: [id number] Reading Location: ??[id number] Procedure Note Rajeev Castrejon MD - 07/29/2020 EXAM DESCRIPTION: XR FOOT 3 OR MORE VIEWS LEFT REASON FOR STUDY: Pain involving the right 5th toe for 1 week. Patient has reportedly hit the toe on several things. TECHNIQUE: AP, lateral and oblique radiographic views acquired of the left foot. COMPARISON: Left ankle radiographs 12/26/2018 FINDINGS: BONES/JOINTS: There is an acute nondisplaced spiral fracture involving the proximal shaft of the 5th digit proximal phalanx. No intra-articular extension is identified. There is no dislocation. There is mild osteoarthritic change at the 1st metatarsophalangeal joint. Stable benign-appearing 4 mm sclerotic lesion within the anterior calcaneus. No suspicious osseous lesion. Small to moderate plantar calcaneal spur again noted. SOFT TISSUES: Soft tissue swelling of the 5th digit. OTHER: No other significant finding. THIS IS AN ELECTRONICALLY VERIFIED FINAL REPORT 07/29/2020 9:44 AM - Electronically signed by Rajeev Castrejon M.D., MD: Report ID: [id number] Reading Location: [id number] IMPRESSION: Acute nondisplaced fracture of the left 5th toe proximal phalanx. Amaya Kowalski APRN, CNP IM DIAGNOSTIC ORDERABL ES Final Result documented in this encounter Visit Diagnoses Not on filedocumented in this encounter Additional Health Concerns Assessment Noted Time PHQ-9 Depression Total Score: 13 04/16/ 020 2:00 PM CDT documented as of this encounter Care Teams Telecommunication Engineer Relationship Specialty Start Date End Date Amaya Kowalski APRN, CNP [address] [place] [address] PCP - General Advanced Practice Nurse 06/10/18 documented as of this encounter
--- OUTSIDE RECORDS SUMMARY | 2024-11-30 17:25 | XMS_ITS | Encounter Summary ---
Author Organization [facility] Address [address] [place] [address] Phone Care Team Providers Care Airplane Pilot Chief Name Role Phone Amaya Kowalski APRN, PRINCIPAL CLERK Primary Care Provider Encounter Details Date Type Department Care Team (Late st Contact Info) Description 09/19/2020 Transcribe Orders [facility] Central Scheduling 1 [place] [id number] Veronika Orantes APRN, PRINCIPAL CLERK 4 [facility] [address] [place] [address] Other abnormal and inconclusive findings [...] Description 03/21/2025 4:30 PM CDT Office [facility] - Primary Care - [place] [address] [place] [address] Shravan Burgos, PAPI [address] [place] [address] documented as of this encounter [...] as of this encounter Care Teams Airplane Pilot Chief Relationship Specialty Start Date End Date Amaya Kowalski, TOOL CRIB MANAGER, PRINCIPAL CLERK [address] [place] [address] PCP - General Advanced Practice Nurse 06/10/18 documented as of this encounter
--- OUTSIDE RECORDS SUMMARY | 2024-11-30 17:25 | XMS_ITS | Encounter Summary ---
Author Organization [employer] Care Team Providers Care Board Of Education Secretary Name Role Phone Amaya Kowalski APRN, SHANK INSPECTOR Primary Care Provider Encounter Details Date Type Department Care Team (Latest Contact Info) Description 09/13/2020 Travel Social History Tobacco Use Types Packs/Day [...] 03/21/2025 4:30 PM CDT Office Visit [facility] - Primary Care - [place] [address] [place] [address] Shravan Burgos, PAC [address] [place] [address] documented as of this encounter Goals Goal Patient Goal Type Associated Problems Recent Progress Patient-Stated? Author [facility] On track(2019 9:50 AM CDT) Yes Eloise Jenkins LCPC Note: Irma reported her goal for psychotherapy is to help me be able to deal with things in the present and in her past that are contributing to low and anxious mood. Goal Reviewed with: patient Readiness to change: Thinking about making a change Department associated with goal: [facility] Steps to achieve [...] and past) that trigger mood concerns. [facility] Behavioral Health On track(2019 9:50 AM CDT) No Eloise Jenkins LCPC Note: Irma will engage in a plan of action to improve emotional and mental wellbeing. Goal Reviewed with: patient Readiness to change: Not yet ready to make a change Department associated with goal: [facility] Steps to achieve [...] documented as of this encounter Care Teams Board Of Education Secretary Relationship Specialty Start Date End Date Amaya Kowalski APRN, SHANK INSPECTOR [address] [place] [address] PCP - General Advanced Practice Nurse 06/10/18 documented as of this encounter
--- OUTSIDE RECORDS SUMMARY | 2024-11-30 17:25 | XMS_ITS | Encounter Summary ---
Author Organization [facility] Address [address] [place] [address] Phone Care Team Providers Care Collar Padder Blindstitch Name Role Phone Amaya Kowalski APRN, CNP Primary Care Provider Reason for Visit * Radiology Services (Routine) - Closed Specialty Diagnoses / Procedures Referred By Claudio t Referred To Contact Radiology Diagnoses Encounter for screening mammogram for malignant neoplasm of breast Procedures NU SCREENING BILATERAL DIGITAL W CAD W WILBERT NU SCREENING BILATERAL DIGITAL W CAD Veronika Orantes APRN, DOUGLAS [address] [facility] [place] [address] Phone: tel: fax: Referral ID Status Reason Start Date Expiration Date Visits Re quested Visits Authorized [id number] Closed 09/04/2020 1 1 Encounter Details Date Type Department Care Team (Latest Contact Info) Description 09/13/2020 3:59 PM CDT - 09/13/2020 11:59 PM CDT Hospital Encounter [facility] Mammography 1 [place] [address] Veronika Orantes APRN, LINTING MACHINE OPERATOR [address] [facility] [address] [place] [address] Discharge Disposition: Discharged to home or Selfcare [...] CDT Office Visit [facility] - Primary Care - [place] [address] [place] [address] Shravan Burgos PAC [address] [place] [address] documented as of this encounter Goals Goal Patient Goal Type Associated Problems Recent Progress Patient-Stated? Author Behavioral Health Behavioral Health On track(2019 9:50 AM CDT) Yes Eloise Jenkins, [facility] Note: Irma reported her goal for [...] On track(2019 9:50 AM CDT) Eloise Mix [facility] Note: Irma will engage in a [...] BILATERAL DIGITAL W CAD W WILBERT Routine 09/13/2020 4:55 PM CDT Encounter for screening mammogram for malignant neoplasm of breast documented in this encounter Results * NU SCREENING BILATERAL DIGITAL W CAD W WILBERT (09/13/2020 4:55 PM CDT) Anatomical Region Laterality Modality breast Bilateral Mammography 09/13/2020 4:26 PM CDT Narrative 09/16/2020 11:19 AM CDT - NU SCREENING BILATERAL DIGITAL W CAD W WILBERT BILATERAL DIGITAL SCREENING MAMMOGRAM 3D/2D WITH CAD WITH MEDIOLATERAL OBLIQUE CRANIOCAUDAL: 09/13/2020 The study was acquired using digital technology and interpreted from soft copy. ?? Current study was also evaluated with ICAD version 7.2. ?? CLINICAL: Routine screening. Patient has no complaints. No personal history of cancer. Paternal aunt had breast cancer. ?? COMPARISONS: Comparison is made to exam dated: ??03/14/2019 [facility]. ?? BREAST TISSUE:The tissue of both breasts is heterogeneously dense. This may lower the sensitivity of mammography. ?? FINDINGS: There is an asymmetry in the right breast middle depth superior region seen on the mediolateral oblique view only. ??This is questionably visualized in the central breast on the CC projection. No other significant masses, calcifications, or other findings are seen in either breast. ?? IMPRESSION: BI-RAD 0 ??ADDITIONAL IMAGING EVALUATION NEEDED The asymmetry in the right breast is indeterminate. ??Additional views with possible ultrasound are recommended. ?? An immediate follow-up is recommended. ?? The patient has been or will be contacted. ?? Electronically signed by: Joseline Hurley M.D. ? ab/:09/16/2020 10:31:18 ?? Bar Captain: Rani OBREGON (R)(Aj), [facility] letter sent: Additional Imaging ?? Reading location: [facility] BI-RADS: 0 Additional Imaging Evaluation Needed Procedure Note Joseline Hurley MD - 09/16/2020 - NU SCREENING BILATERAL DIGITAL W CAD W WILBERT BILATERAL DIGITAL SCREENING MAMMOGRAM 3D/2D WITH CAD WITH MEDIOLATERAL OBLIQUE CRANIOCAUDAL: 09/13/2020 The study was acquired using digital technology and interpreted from soft copy. Current study was also evaluated with ICAD version 7.2. CLINICAL: Routine screening. Patient has no complaints. No personal history of cancer. Paternal aunt had breast cancer. COMPARISONS: Comparison is made to exam dated: 03/14/2019 [facility]. BREAST TISSUE:The tissue of both breasts is heterogeneously dense. This may lower the sensitivity of mammography. FINDINGS: There is an asymmetry in the right breast middle depth superior region seen on the mediolateral oblique view only. This is questionably visualized in the central breast on the CC projection. No other significant masses, calcifications, or other findings are seen in either breast. IMPRESSION: BI-RAD 0 ADDITIONAL IMAGING EVALUATION NEEDED The asymmetry in the right breast is indeterminate. Additional views with possible ultrasound are recommended. An immediate follow-up is recommended. The patient has been or will be contacted. Electronically signed by: Joseline Hurley M.D. ab/:09/16/2020 10:31:18 Bar Captain: Rani MORRELL)(Aj), [facility] letter sent: Additional Imaging Reading location: [facility] BI-RADS: 0 Additional Imaging Evaluation Needed us Veronika Orantes APRN, DOUGLAS IM MAMMO ORDERABLES Kaylin l Result documented in this encounter Visit Diagnoses Diagnosis Encounter for screening mammogram for malignant neoplasm of breast Other screening mammogram documented in this encounter Additional Health Concerns Assessment Noted Time PHQ-9 Depression Total Score: 13 020 2:00 PM CDT documented as of this encounter Care Teams Collar Padder Blindstitch Relationship Specialty Start Date End Date Amaya Kowalski APRN, LINTING MACHINE OPERATOR [address] [place] [address] PCP - General Advanced Practice Nurse 06/10/18 documented as of this encounter
--- OUTSIDE RECORDS SUMMARY | 2024-11-30 17:25 | XMS_ITS | Encounter Summary ---
Author Organization [facility] Address [address] [place] [address] Phone Care Team Providers Care Plumber Maintenance Name Role Phone Amaya Kowalski APRN, CNP Primary Care Provider Reason for Referral * Radiology Services (Routine) - Closed Specialty Diagnoses / Procedures Referred By Contac t Referred To Contact Radiology Diagnoses Pelvic and perineal pain Procedures US PELVIS COMPLETE WITH TRANSVAGINAL Veronika Orantes APRN, CNP [address] [place] [address] Phone: tel: fax: Referral ID Status Reason Start Date Expiration Date Visits Re quested Visits Authorized [id number] Closed 09/04/2020 1 1 Encounter Details Date Type Department Care Team (Late st Contact Info) Description 09/04/2020 Transcribe Orders [facility] Central Scheduling 1 [place] [phone] Veronika Orantes APRN, CNP [address] [place] [address] Pelvic and perineal pain (Primary Dx); Encounter for screening mammogram for malignant neoplasm of breast Social History Tobacco Use Types Packs/Day Years [...] 03/21/2025 4:30 PM CDT Office Visit [facility] - Primary Care - [place] [address] [place] [address] Shravan Burgos PAC [address] [place] [address] documented as of this encounter Goals Goal Patient Goal Type Associated Problems Recent Progress Patient-Stated? Author Behavioral Health Behavioral Health On track(2019 9:50 AM CDT) Yes Eloise Jenkins, [employer] Note: Irma reported her goal for psychotherapy is to help me be able to deal with things in the present and in her past that are contributing to low and anxious mood. Goal Reviewed with: patient Readiness to change: Thinking about making a change Department associated with goal: [facility] Steps to [...] On track(2019 9:50 AM CDT) Eloise Mix, [facility] Note: Irma will engage in a plan of action to improve emotional and mental wellbeing. Goal Reviewed with: patient Readiness to change: Not yet ready to make a change Department associated with goal: [facility] Steps to [...] documented as of this encounter Results * US PELVIS COMPLETE [...] AM T: ??09/14/2020 6:29 AM Report ID: [id number] Reading Location: ??[id number] Procedure Note Zbigniew Flores MD - 09/14/2020 [...] Zbigniew Flores M.D. NC: LULA Report ID: [id number] Reading Location: [id number] IMPRESSION: No significant abnormality. IUD in satisfactory position. 4 cm left adnexal cyst. us Veronika Orantes APRN, DOUGLAS IMG US ORDERABLES Final R esult documented in this encounter Visit Diagnoses Diagnosis Pelvic and perineal pain- Primary Unspecified symptom associated with female genital organs Encounter for screening mammogram for malignant neoplasm of breast Other screening mammogram Pelvic and perineal pain Unspecified symptom associated with female genital organs documented in this encounter Additional Health Concerns Assessment Noted Time PHQ-9 Depression Total Score: 13 020 2:00 PM CDT documented as of this encounter Care Teams Plumber Maintenance Relationship Specialty Start Date End Date Amaya Kowalski, MEGAN, DESIGN SUPERVISOR [address] [place] [address] PCP - General Advanced Practice Nurse 06/10/18 documented as of this encounter
--- OUTSIDE RECORDS SUMMARY | 2024-11-30 17:25 | XMS_ITS | Encounter Summary ---
Author Organization [facility] Address [address] [place] [address] Phone Care Team Providers Care Neck Band Operator Name Role Phone Amaya Kowalski APRN, CNP Primary Care Provider Reason for Visit * Reason Comments Medication Refill Encounter Details Date Type Department Care Team ([facility] Contact Info) Description 09/20/2020 Refill [facility] - Primary Care - [place] [address] [place] [address] Amaya Kowalski APRN, FULLING MILL OPERATOR [address] [place] [address] Medication Refill Social History Tobacco [...] - Amaya Kowalski APN, CNP - 09/23/2020 8:05 AM CDT Approved * Telephone Encounter - Emperatriz Gilliam RN - 09/21/2020 3:00 PM CDT Requested Prescriptions Pending Prescriptions Disp Refills albuterol 108 (90 Base) MCG/ACT Aerosol Solution [Pharmacy Med Name: ALBUTEROL HFA (PROVENTIL) INH]6.7 Inhaler 0 Sig: INHALE 1-2 PUFFS BY INHALATION EVERY 4 HOURS NEEDED FOR WHEEZING OR COUGH Pulmonology: Beta Agonists - Albuterol & Levalbuterol Failed - 09/20/2020 3:54 PM Failed - May refill 2 inhalers, 0 refills one time since last office visit. May refill #50 nebulizer vials, 0 refills for albuterol or #48 vials, 0 refills for Xopenex one time since last office visit. Passed - Valid encounter within last 6 months Past Office Visits Recent Outpatient Visits 1 month ago Injury of left foot, initial encounter [facility] Medical [facility] - Family Medicine - [place] S[place] APN, CNP 5 months ago Moderate episode of recurrent major depressive disorder (HCC) [facility] - Amaya Yoder APN, CNP 1 year ago Anxiety [facility] - Amaya Yoder APN, CNP 1 year ago Chronic bronchitis with productive mucopurulent cough (HCC) [facility] - Fox Conde PAC 1 year ago Chronic bronchitis, unspecified chronic bronchitis type (HCC) [facility] - Amaya Yoder, KENTON, FULLING MILL OPERATOR Upcoming Appointments Future Appointments In 2 weeks [facility] Mammography, [facility] In 2 weeks [facility]ECH2; [facility]US[facility] Ultrasound, [facility] FIELD PROJECT MANAGER - Recent and Past Visits Recent Visits Date Type Provider Dept 07/26/20 Office Visit Amaya Kowalski APN, DOUGLAS [address] 04/05/20 Office Visit Amaya Kowalski APN, DOUGLAS [place] 08/17/19 Office Visit Amaya Kowalski APN, DOUGLAS [facility] [place] Showing recent visits within past 460 days with a meds authorizing provider and meeting all other requirements Future Appointments No visits were found meeting these conditions. Showing future appointments within next 90 days with a meds authorizing provider and meeting all other requirements Passed - Last BP in normal range BP Readings from Last 1 Encounters: 07/26/20 104/78 documented in this encounter Plan of Treatment Upcoming Encounters Date Type Department Care Team (Late st Contact Info) Description 03/21/2025 4:30 PM CDT Office Visit [facility] Primary Care - [place] [address] [place] [phone] Shravan Burgos PAC [address] [place] [address] documented as of this encounter Goals Goal [...] making a change Department associated with goal: [facility] Steps to achieve [...] make a change Department associated with goal: [facility] Steps to achieve [...] documented as of this encounter Care Teams Neck Band Operator Relationship Specialty Start Date End Date Amaya Kowalski, PASTE PLANT SUPERVISOR, FULLING MILL OPERATOR [address] [place] [address] PCP - General Advanced Practice Nurse 06/10/18 documented as of this encounter
--- OUTSIDE RECORDS SUMMARY | 2024-11-30 17:25 | XMS_ITS | Encounter Summary ---
Author Organization [facility] Address [address] [place] [address] Phone Care Team Providers Care Auto Parts Delivery Driver Name Role Phone Amaya Kowalski APRN, CNP Primary Care Provider Reason for Visit * Reason Onset Date Comments Results 07/29/2020 Left foot x-ray Encounter Details Date Type Department Care Team ([facility] Contact Info) Description 07/29/2020 Telephone [facility] - Primary Care - [place] [address] [place] [address] Amaya Kowalski APRN RADIOLOGY TRANSCRIPTIONIST [address] [place] [address] Results (Left foot x-ray) Social History Tobacco Use Types Packs/Day Years [...] Addendum Note - Melonie Garcia CMA - 07/28/2021 11:30 AM CDTAddended by: MELONIE GARCIA on: 07/28/2021 11:30 AM Modules accepted: Orders * Telephone Encounter - Amaya Kowalski APN, CNP - 07/29/2020 12:55 PM CDT Referral order signed. * Telephone Encounter - Mohini Aguirre RN - 07/29/2020 12:18 PM CDT Referral pended. * Telephone Encounter - Amaya Kowalski APN, CNP - 07/29/2020 12:12 PM CDT With [employer] insurance probably Dr. Castanon. * Telephone Encounter - Mohini Aguirre RN - 07/29/2020 12:07 PM CDT Phoned patient with x-ray results. Patient requesting referral. States she will see whoever you think would be better . Please advise. * Telephone Encounter - Mohini Aguirre RN - 07/29/2020 12:06 PM CDT ----- Message from Amaya Kowalski APN, RADIOLOGY TRANSCRIPTIONIST sent at 07/29/2020 10:09 AM CDT ----- Acute nondisplaced fracture of the left 5th toe proximal phalanx. Can refer to orthopedic or screen making technician, but not sure that they will do anything. documented in this encounter Plan of Treatment Upcoming Encounters Date Type Department Care Team (Late st Contact Info) Description 03/21/2025 4:30 PM CDT Office Visit [facility] - Primary Care - [place] [address] [place] [address] Shravan Burgos PAC [address] [place] [address] documented as of this encounter [...] as of this encounter Visit Diagnoses Diagnosis Closed nondisplaced fracture of phalanx of lesser toe of left foot, unspecified phalanx, initial encounter- Primary documented in this encounter Additional Health Concerns Infection Onset Date Last Indicated Resolved Time COVID - 19 10/11/2020 10/11/2020 10/13/2020 8:16 AM SHIFT SUPERVISOR FILM PROCESSING Assessment Noted Time PHQ-9 Depression Total Score: 13 020 2:00 PM CDT documented as of this encounter Care Teams Auto Parts Delivery Driver Relationship Specialty Start Date End Date Amaya Kowalski, PROTECTION AGENT, RADIOLOGY TRANSCRIPTIONIST [address] [place] [address] PCP - General Advanced Practice Nurse 06/10/18 documented as of this encounter
--- OUTSIDE RECORDS SUMMARY | 2024-11-30 17:26 | XMS_ITS | Encounter Summary ---
Author Organization [facility] Address [address] [place] [address] Phone Care Team Providers Care Project Engineer Chemicals Name Role Phone Amaya Kowalski APRN, CNP Primary Care Provider Reason for Visit * Reason Comments Foot Pain left pinky toe Back Pain Encounter Details Date Type Department Care Team (Late st Contact Info) Description 07/26/2020 1:00 PM CDT Office Visit [facility] - Primary Care - [place] [address] [place] [address] Amaya Kowalski APRN, CNP [address] [place] [address] Injury of left foot, initial encounter (Primary Dx); Chronic right-sided low back pain with right-sided sciatica Discharge Disposition: Discharged to home or Selfcare [...] AM CDT documented as of this encounter Last Filed Vital Signs Vital Sign Reading Time Taken Comments Blood Pressure 104/78 07/26/2020 1:00 PM CDT Pulse 73 07/26/2020 1:00 PM CDT Temperature 36.7 ??C (98.1 ??F) 07/26/2020 1:00 PM CD T Respiratory Rate 18 07/26/2020 1:00 PM CDT Oxygen Saturation 98% 07/26/2020 1:00 PM CDT Inhaled Oxygen Concentration - - Weight 61.3 kg (135 lb 3.2 oz) 07/26/2020 1:00 P M CDT Height 160 cm (5' 3 ) 07/26/2020 1:00 PM CDT Body Mass Index 23.95 07/26/2020 1:00 PM CDT documented in this encounter Patient Instructions * Patient Instructions* Jo Sorenson, JESUSITA - 07/26/2020 1:00 PM CDT Images from the original note were not included. Ice alternating with heat, not directly against skin, 20 minutes at a time. Imboden sparingly and not with ativan If not improving can consider physical therapy Xray to foot today Ice to foot Follow up if not improving Pneumonia is a serious lung infection that [...] or your localpharmacy. Health Effects of Smoking Health studies have shown that smoking can affect your heart as well as your lungs. Smoking also raises your risk of certain cancers. These are all good reasons to quit. How smoking affects your body Smoking has been linked with many serious illnesses. It also has been shown to increase signs of aging. A few of the health effects of smoking are listed below. Smoking can: ?? Raise your risk of lung cancer, bladder cancer, and cervical cancer ?? Harm your lungs and cause problems with breathing. This includes emphysema and COPD (chronic obstructive pulmonary disease) . ?? Raise blood pressure. This raises your risk for heart attack or stroke. ?? Reduce blood flow. This can slow healing and cause wrinkles. ?? In women, cause bleeding problems, miscarriage, [...] these chemicals are known to cause cancer. Get help and more information ?? Smokefree.gov. Go to smokefree.gov or call 706-PSFH-ARE (261-462-8663). ?? National Cancer [place] Smoking Quitline. Go to Outbox.org/nip-izbp-csq or call 223-30C-DRTE (830-037-2733). Katrina last reviewed this educational content on 12/30/2016 ?? [id number] [employer]. [address] [place] [address], [place] [address]. All rights reserved. This information is not intended as a substitute for professional medical care. Always follow your healthcare professional's instructions. documented in this encounter Progress Notes * Jo Sorenson RMA - 07/26/2020 1:00 PM CDT Irmaliang Seymour was provided education materials regarding smoking cessation as noted on the After Visit Summary. Counseling Given and Ready to Quit Calix are updated in the Social History. Irma Emory Seymour, 40 y.o., female is here for Foot Pain (left pinky toe) and Back Pain Medication Refills: Patient reports/denies need for medication refills. Orders Pended: no Requested Prescriptions No prescriptions requested or ordered in this encounter Home Medications Medication Sig Start Date End Date Taking? Authorizing Provider albuterol 108 (90 Base) MCG/ACT Aerosol Solution take 1-2 Puffs by inhalation every 4 hours as needed for Wheezing or Cough. 04/05/20 Yes Amaya Kowalski APN, CNP Fluticasone-Salmeterol 55-14 MCG/ACT AEROSOL POWDER, BREATH ACTIVATED take 1 Puff by inhalation 2 times daily. Patient not taking: Reported on 07/26/2020 08/17/19 Amaya Kowalski APN, CNP ibuprofen (MOTRIN) 200 [...] BY MOUTH AT BEDTIME NEEDED FOR ANXIETY 07/23/20 Yes Amaya Kowalski APN, CNP Naproxen Sodium (ALEVE PO) Take by mouth daily. Provider, MD Marivel Respiratory Therapy Supplies (NEBULIZER) Device Use 4x/day [...] - Tdap) 1985 ??? Pap Smear 1999 Orders Pended: no The following BPA's have been addressed with the patient today: TDAP, Pneumonia and Pap * Amaya Kowalski, KENTON, WAGE HAND - 07/26/2020 1:00 PM CDT Images from the original note were not included. Subjective: Patient injured her left pinky toe 3 times within a couple days of each other once on a floor register once on address are and another time him on a chair. Initially did not swell or bruise but then it did bruise and swell and it remains swollen. This initially occurred a week ago . She hasdone occasional ice and ibuprofen. She is also complaining of back pain on her right side that goesdown her hip. She does have history of scoliosis. Review of Systems Constitutional: Negative for fever. HENT: Negative. Respiratory: Negative for shortness of breath. Cardiovascular: Negative for chest pain and palpitations. Gastrointestinal: Negative for constipation, diarrhea, nausea and vomiting. Genitourinary: Negative. Musculoskeletal: Positive for back pain (right side down into hip, hx of scoliosis). Left pinky toe pain. Neurological: Negative for dizziness and headaches. Psychiatric/Behavioral: Negative for dysphoric mood. The patient is nervous/anxious. Objective: Physical Exam Vitals signs and nursing note reviewed. Constitutional: Appearance: Normal appearance. Neck: Musculoskeletal: Normal range of motion. Vascular: No carotid bruit. Cardiovascular: Rate and Rhythm: Normal rate and regular rhythm. Pulses: Normal pulses. Heart sounds: Normal heart sounds. Pulmonary: Effort: Pulmonary effort is normal. Breath sounds: Normal breath sounds. Abdominal: General: Bowel sounds are normal. Palpations: Abdomen is soft. Musculoskeletal: Normal range of motion. Feet: Skin: General: Skin is warm and dry. Neurological: Mental Status: She is alert and oriented to person, place, and time. Deep Tendon Reflexes: Reflexes normal. Psychiatric: Mood and Affect: Mood normal. BP 104/78 Pulse 73 Temp 98.1 ??F (36.7 ??C) (Temporal) Resp 18 Ht 5' 3 (1.6 m) Wt 135 lb3.2 oz (61.3 kg) SpO2 98% BMI 23.95 kg/m?? Assessment and Plan See Diagnoses, Orders, Follow-up, and Instructions Encounter Diagnoses Name Primary? Injury of left foot, initial encounter Yes ??? Chronic right-sided low back pain with right-sided sciatica If not improving can consider physical therapy Xray to foot today Ice to foot Follow up if not improving Documentation for this visit on 07/26/2020 was completed using a template. I have seen and examinedthe patient. Everything documented was personally performed at this visit with the necessary additions, deletions and changes made as appropriate. documented in this encounter Plan of Treatment Upcoming Encounters Date Type Department Care Team (Late st Contact Info) Description 03/21/2025 4:30 PM CDT Office Visit [facility] - Primary Care - [place] [address] [place] [address] Shravan Burgos PAC [address] [place] [address] documented as of this encounter [...] change Department associated with goal: [facility] Steps [...] change Department associated with goal: [facility] Steps [...] AM - Electronically signed by Rajeev Castrejon M.D. MD: D: ??07/29/2020 9:44 AM T: ??07/29/2020 9:44 AM Report ID: [id number] Reading Location: ??[id number] Procedure Note Rajeev Castrejon MD - 07/29/2020 [...] by Rajeev Castrejon M.D., MD: Report ID: [id number] Reading Location: [id number] IMPRESSION: Acute nondisplaced fracture of the left 5th toe proximal phalanx. Amaya Kowalski APRN, CNP IMG DIAGNOSTIC ORDERABL ES Final Result documented in this encounter Visit Diagnoses Diagnosis Injury of left foot, initial encounter- Primary Chronic right-sided low back pain with right-sided sciatica documented in this encounter Additional Health Concerns Assessment Noted Time PHQ-9 Depression Total Score: 13 020 2:00 PM CDT documented as of this encounter Care Teams Project Engineer Chemicals Relationship Specialty Start Date End Date Amaya Kowalski APRN, DOUGLAS [address] [place] [address] PCP - General Advanced Practice Nurse 06/10/18 documented as of this encounter
--- OUTSIDE RECORDS SUMMARY | 2024-11-30 17:26 | XMS_ITS | Encounter Summary ---
Author Organization [employer] Care Team Providers Care Air Dispatcher Name Role Phone Amaya Kowalski APRN, REMOTE RUBY ON RAILS DEVELOPER Primary Care Provider Encounter Details Date Type Department Care Team (Latest Contact Info) Description 07/26/2020 Travel Social History Tobacco Use Types Packs/Day [...] Description 03/21/2025 4:30 PM CDT Office Visit [facility] - Primary Care - [place] [address] [place] [address] Shravan Brugos, PAC [address] [place] [address] documented as of this encounter Goals Goal Patient Goal Type Associated Problems Recent Progress Patient-Stated? Author [facility] Health On track(2019 9:50 AM [...] and past) that trigger mood concerns. Behavioral [facility] Behavioral Health On track(2019 9:50 AM [...] as of this encounter Care Teams Air Dispatcher Relationship Specialty Start Date End Date Amaya Kowalski APRN, REMOTE RUBY ON RAILS DEVELOPER [address] [place] [address] PCP - General Advanced Practice Nurse 06/10/18 documented as of this encounter
--- OUTSIDE RECORDS SUMMARY | 2024-11-30 17:26 | XMS_ITS | Encounter Summary ---
Author Organization [facility] Address [address] [place] [address] Phone Care Team Providers Care Special Warfare Operator Name Role Phone Amaya Kowalski APRN, CNP Primary Care Provider Encounter Details Date Type Department Care Team (Late st Contact Info) Description 06/06/2020 Telephone [facility] Services [address] [place] [address] Eloise Jenkins, [facility] Social History Tobacco Use Types Packs/Day Years [...] have Coronavirus / COVID-19? No / Unsure 05/23/2020 2:01 PM CDT documented as of this encounter Plan of Treatment Upcoming Encounters Date Type Department Care Team (Late st Contact Info) Description 03/21/2025 4:30 PM CDT Office Visit [facility] - Primary Care - [place] [address] [place] [address] Shravan Burgos, PAPI [address] [place] [address] documented as of this encounter [...] documented as of this encounter Care Teams Special Warfare Operator Relationship Specialty Start Date End Date Amaya Kowalski, BEAUTY SHOP MANAGER, LAYOUT TECHNICIAN [address] [place] [address] PCP - General Advanced Practice Nurse 06/10/18 documented as of this encounter
--- OUTSIDE RECORDS SUMMARY | 2024-11-30 17:26 | XMS_ITS | Encounter Summary ---
Author Organization [facility] Address [address] [place] [address] Phone Care Team Providers Care School Aide Name Role Phone Amaya Kowalski APRN, CNP Primary Care Provider Reason for Visit * Reason Comments Medication Refill Encounter Details Date Type Department Care Team (Late st Contact Info) Description 06/26/2020 Refill [facility] [place] [address] [place] [phone] Amaya Kowalski APRN, STATISTICS PROFESSOR [address] [place] [address] Medication Refill Social History Tobacco [...] encounter Miscellaneous Notes * Telephone Encounter - Emperatriz Gilliam RN - 06/28/2020 4:37 PM CDT Requested Prescriptions Pending Prescriptions Disp Refills venlafaxine (EFFEXOR-XR) 37.5 MG CAPSULE SR 24 HR [Pharmacy Med Name: VENLAFAXINE HCL ER 37.5 MG CAP] 90 Cap 0 Sig: TAKE 1 CAPSULE BY MOUTH EVERY DAY Not Delegated - Psychiatry: Antidepressants: Other Failed - 06/26/2020 12:14 AM Failed - This refill cannot be delegated Passed - Valid encounter within last 12 months Past Office Visits Recent Outpatient Visits 2 months ago Moderate episode of recurrent major depressive disorder (HCC) [facility] - Amaya Yoder APN, STATISTICS PROFESSOR 10 months ago Anxiety [facility] - Amaya Yoder APN, STATISTICS PROFESSOR 1 year ago Chronic bronchitis with productive mucopurulent cough (HCC) [facility] - Fox Conde PAC 1 year ago Chronic bronchitis, unspecified chronic bronchitis type (HCC) [facility] - Amaya Yoder APN, STATISTICS PROFESSOR 1 year ago Cough [facility] - Amaya Yoder, KENTON, STATISTICS PROFESSOR Upcoming Appointments TRAINS SERVICE CONDUCTOR - Recent and Past Visits Recent Visits Date Type Provider Dept 04/05/20 Office Visit Amaya Kowalski APN, CNP [facility] 08/17/19 [facility] Showing recent visits within past 460 days with a meds authorizing provider and meeting all other requirements Future Appointments No visits were found meeting these conditions. Showing future appointments within next 90 days with a meds authorizing provider and meeting all other requirements Passed - Last BP in normal range BP Readings from Last 1 Encounters: 05/17/20 138/87 documented in this encounter Plan of Treatment Upcoming Encounters Date Type Department Care Team (Late st Contact Info) Description 03/21/2025 4:30 PM CDT Office Visit [facility] - Primary Care - [place] [address] [place] [address] Shravan Burgos, PAPI [address] [place] [address] documented as of this encounter Goals Goal Patient Goal Type Associated Problems Recent Progress Patient-Stated? Author Behavioral [facility] [...] as of this encounter Care Teams School Aide Relationship Specialty Start Date End Date Amaya Kowalski, DEPUTY JUVENILE OFFICER, STATISTICS PROFESSOR [address] [place] [address] PCP - General Advanced Practice Nurse 06/10/18 documented as of this encounter
--- OUTSIDE RECORDS SUMMARY | 2024-11-30 17:26 | XMS_ITS | Encounter Summary ---
Author Organization [facility] Address [address] [place] [address] Phone Care Team Providers Care Germination Worker Name Role Phone Amaya Kowalski APRN, CNP Primary Care Provider Encounter Details Date Type Department Care Team (Late st Contact Info) Description 06/25/2020 Telephone [facility] Services [address] [place] [address] Eloise Jenkins, [facility] Social History Tobacco Use Types Packs/Day Years [...] 4:30 PM CDT Office Visit [facility] - Primary Care - [place] [address] [place] [address] Shravan Burgos, PAC [address] [place] [address] documented as of this encounter Goals Goal Patient Goal Type Associated Problems Recent Progress Patient-Stated? Author Behavioral [facility] Behavioral Health On track(2019 9:50 AM [...] documented as of this encounter Care Teams Germination Worker Relationship Specialty Start Date End Date Amaya Kowalski, TRAINING AND DEVELOPMENT DIRECTOR, TIMBER HAND [address] [place] [address] PCP - General Advanced Practice Nurse 06/10/18 documented as of this encounter
--- OUTSIDE RECORDS SUMMARY | 2024-11-30 17:26 | XMS_ITS | Encounter Summary ---
Author Organization [facility] Address [address] [place] [address] Phone Care Team Providers Care Laboratory Apparatus Glass Blower Name Role Phone Amaya Kowalski APRN, CNP Primary Care Provider Reason for Visit * Reason Comments Anxiety Depression Encounter Details Date Type Department Care Team (Latest Contact Info) Description 05/23/2020 2:00 PM CDT Outpatient Clinic Visit [facility] [address] [place] [address] Myranda Pastor, COMPOUND FINISHER #[address] [place] [address] Eloise Jenkins, SHIFT MECHANIC Moderate episode of recurrent major depressive disorder (HCC) (Primary Dx); Anxiety Discharge Disposition: Discharged to [...] PM CDT documented as of this encounter Patient Instructions * Patient Instructions* Eloise Jenkins, [facility] - 05/23/2020 2:00 PM CDT Images from the original note were not included. If you are in a Mental Health Crisis or having thoughts of harming yourself or others; please call one of the following resources available 24 hours per day: [facility] [phone] [employer]: [phone] National Suicide Prevention Hotline: 2-783- 171- TALK (0690) Behavioral Health Response: 278.756.6318 [facility]: 381-158- HGBU (4334) Crisis Text Line: Text home to 592 094 Call 911 or go to your nearest Emergency Room. Depression: Tips to Help Yourself As your healthcare providers help treat your depression, you can also help yourself. Keep in mind that your illness affects you emotionally, physically, mentally, and socially. So full recovery will take time. Take care of your body and your soul, and be patient with yourself as you get better. Self-care ?? Educate yourself. Read about treatment and medicine options. If you have the energy, attend local conferences or support groups. Keep a list of useful websites and helpful books and use them as needed. This illness is not your fault. Don???t blame yourself for your depression. ?? Manage early symptoms. If you notice symptoms returning, experience triggers, or identify other factors that may lead to a depressive episode, get help as soon as possible. Ask trusted friends andfamily to monitor your behavior and let you know if they see anything of concern. ?? Work with your provider. Find a provider you can trust. Communicate honestly with that person and share information on your treatment for depression and your reaction to medicines. ?? Be prepared for a crisis. Know what to do if you experience a crisis. Keep the phone number of [employer] and know the location of your community's urgent care centers and the closest emergency department. ?? Hold off on big decisions. Depression can cloud your judgment. So wait until you feel better before making major life decisions, such as changing jobs, moving, or getting or . ?? Be patient. Recovering from depression is a process. Don???t be discouraged if it takes some time to feel better. ?? Keep it simple. Depression saps your energy and concentration. So you won???t be able to do all the things you used to do. Set small goals and do what you can. ?? Be with others. Don???t isolate yourself--you???ll only feel worse. Try to be with other people.And take part in fun activities when you can. Go to a movie, Mingglgame, lutheran service, or socialevent. Talk openly with people you can trust. And accept help when it???s offered. Take care of your body People with depression often lose the desire to take care of themselves. That only makes their problems worse. During treatment and afterward, make a point to: ?? Exercise. It???s a great way to take care of your body. And studies have shown that exercise helps fight depression. Aim for 30 minutes of moderate activity a day. Walking in small blocks of time (5-10 minutes) is a good way to start, but anything that gets you moving (gardening, house cleaning)counts. ?? Don't use drugs and alcohol. These may ease the pain in the short term. But they???ll only make your problems worse in the long run. ?? Get relief from stress. Ask your healthcare provider for relaxation exercises and techniques to help relieve stress. Consider activities like meditation, yoga, or Ye Chi. ?? Eat right. A balanced and healthy diet helps keep your body healthy. ?? Get adequate sleep. Aim for 8 hours per night. Too much or too little sleep can cause other physical and emotional problems. Stampt stephanie reviewed this educational content on 10/29/2019 ?? 9542-3874 [employer], [employer]. [address] [place] [address], [place] [address]. All rights reserved. This information is not intended as a substitute for professional medical care. Always follow your healthcare professional's instructions. documented in this encounter Progress Notes * Eloise Jenkins LCPC - 05/23/2020 2:00 PM CDT [facility] [address], [place] [address] Progress Note Irma Seymour 1980 Session Time: Start time: 2pm Stop time: 245pm Session Notes: Treatment Modality: individual psychotherapy Patient presents with anxiety and depression. Primary complaints include: anxiety, feeling depressed, increased irritability, relationship difficulties and tearfulness. PROGRESS NOTE NARRATIVE: Pt reported feeling and thinking similar to last visit. She reported primary stressors remains her relationship with her father and residing in her parents home with her children. 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 Pt verbalized thoughts of plan to obtain new employment mixed with some thoughts and feelings of helplessness and hopelessness. Pt identified barriers to moving out of her parents' home is finances and her fear for her mother's well being, ex: when she is not sober she mayfall down and no one would be there to help her. Pt appeared to begin building insight regarding identifying things she can control vs things she cannot and risks of taking responsibility for other'semotions and behavior. Mental Status Exam:: Speech: normal pitch and normal volume Thought Process: within normal limits Thought Content: normal Orientation: person, place and time/date Mood: anxious, depressed and within normal limits Affect: mood-congruent and tearful Behavior: Within Normal Limits Risk Assessment:: Self: No Others: No Assessment/Plan: Diagnosis: ICD-10-CM 1. Moderate episode of recurrent major depressive disorder (HCC) F33.1 2. Anxiety F41.9 Intervention / Psychotherapy: Therapeutic Interventions included:Clinician utilized person centered approach (active/reflective listening, summarization, open ended questions, unconditional positive regard) to encourage pt disclosure of thoughts and feelings for insight building, to gain relief from distressing thoughts and feelings and to strengthen therapeutic rapport. Confront and reflect irrational ideas, Encouraged to vent feelings, Identify precipitants, Links to childhood experiences, Sources of behavior, Sources of feelings, Stress reduction techniques and Patterns of behavior Plan: Return in 1 week. ELOISE JENKINS LCPC documented in this encounter Plan of Treatment Upcoming Encounters Date Type Department Care Team (Late st Contact Info) Description 03/21/2025 4:30 PM CDT Office Visit [facility] - Primary Care - [place] [address] [place] [id number] Shravan Burgos PAC [address] [place] [id number] documented as of this encounter Goals Goal [...] as of this encounter Visit Diagnoses Diagnosis Moderate episode of recurrent major depressive disorder (HCC)- Primary Anxiety Anxiety state, unspecified documented in this encounter Additional Health Concerns Assessment Noted Time PHQ-9 Depression Total Score: 13 020 2:00 PM CDT documented as of this encounter Care Teams Laboratory Apparatus Glass Blower Relationship Specialty Start Date End Date Amaya Kowalski, MANAGING PRINCIPAL, OPERATIONS AGENT [address] [place] [address] PCP - General Advanced Practice Nurse 06/10/18 documented as of this encounter
--- OUTSIDE RECORDS SUMMARY | 2024-11-30 17:26 | XMS_ITS | Encounter Summary ---
Author Organization [facility] Address [address] [place] [address] Phone Care Team Providers Care Research Greenhouse Supervisor Name Role Phone Amaya Kowalski APRN, CNP Primary Care Provider Reason for Visit * Reason Comments Medication Refill Encounter Details Date Type Department Care Team (Late st Contact Info) Description 06/17/2020 Refill [facility] [address] [place] [address] Amaya Kowalski APRN, UX MANAGER [address] [place] [address] Medication Refill Social History Tobacco [...] Encounter - Amaya Kowalski APN, CNP - 06/19/2020 5:03 PM CDT [place] prescription monitoring site reviewed, medication approved * Telephone Encounter - Lina Palencia RN - 06/19/2020 4:48 PM CDT Refill pending. Unable to sign per protocol. Routing to provider for review and approval. Last OV 04/05/20. documented in this encounter Plan of Treatment Upcoming Encounters Date Type Department Care Team (Late st Contact Info) Description 03/21/2025 4:30 PM CDT Office Visit [facility] - Primary Care - [place] [address] [place] [address] Shravan Burgos PAC [address] [place] [address] documented as of this encounter [...] a change Department associated with goal: [facility] Steps to [...] track(2019 9:50 AM CDT) No Eloise Jenkins, TOY MECHANIC Note: Irma will engage in a plan of action to improve emotional and mental wellbeing. Goal Reviewed with: patient Readiness to change: Not yet ready to make a change Department associated with goal: [facility] Steps to [...] documented as of this encounter Care Teams Research Greenhouse Supervisor Relationship Specialty Start Date End Date Amaya Kowalski, PALEONTOLOGY TEACHER, UX MANAGER [address] [place] [address] PCP - General Advanced Practice Nurse 06/10/18 documented as of this encounter
--- OUTSIDE RECORDS SUMMARY | 2024-11-30 17:26 | XMS_ITS | Encounter Summary ---
Author Organization [employer] Care Team Providers Care Boat Joiner Helper Name Role Phone Amaya Kowalski APRN, PAINTER AND DECORATOR APPRENTICE Primary Care Provider Encounter Details Date Type Department Care Team (Latest Contact Info) Description 05/17/2020 Travel Social History Tobacco Use Types Packs/Day [...] have Coronavirus / COVID-19? No / Unsure 05/17/2020 5:46 PM CDT documented as of this encounter Plan of Treatment Upcoming Encounters Date Type Department Care Team (Late st Contact Info) Description 03/21/2025 4:30 PM CDT Office Visit [facility] - Primary Care - [place] [address] [place] [address] Shravan Burgos, PAC [address] [place] [address] documented as of this encounter Goals Goal Patient Goal Type Associated Problems Recent Progress Patient-Stated? Author [facility] On track(2019 9:50 AM CDT) Yes [...] (current and past) that trigger mood concerns. [facility] On track(2019 9:50 AM [...] documented as of this encounter Care Teams Boat Joiner Helper Relationship Specialty Start Date End Date Amaya Kowalski APRN, PAINTER AND DECORATOR APPRENTICE [address] [place] [address] PCP - General Advanced Practice Nurse 06/10/18 documented as of this encounter
--- OUTSIDE RECORDS SUMMARY | 2024-11-30 17:26 | XMS_ITS | Encounter Summary ---
Author Organization [facility] Address [address] [place] [address] Phone Care Team Providers Care Stage Hand Name Role Phone Amaya Kowalski APRN, CNP Primary Care Provider Reason for Visit * Reason Comments Numbness Flank Pain Encounter Details Date Type Department Care Team (Late st Contact Info) Description 05/17/2020 5:52 PM CDT - 05/17/2020 8:39 PM CDT Emergency [facility] [address] [place] [address] Trell Minor MD [address] [place] [address] Right facial numbness Discharge Disposition: Discharged to home or Selfcare [...] Sign Reading Time Taken Comments Blood Pressure 138/87 05/17/2020 8:36 PM CDT Pulse 78 05/17/2020 8:36 PM CDT Temperature 36.5 ??C (97.7 ??F) 05/17/2020 5:46 PM CD T Respiratory Rate 22 05/17/2020 8:36 PM CDT Oxygen Saturation 100% 05/17/2020 8:36 PM CDT Inhaled Oxygen Concentration - - Weight 63.5 kg (140 lb) 05/17/2020 5:46 PM CDT Height 160 cm (5' 3 ) 05/17/2020 5:46 PM CDT Body Mass Index 24.8 05/17/2020 5:46 PM CDT documented in this encounter Discharge Instructions * Attachments The following attachments cannot be sent through Care Everywhere. * Sensation, Loss of: Safety Tips (Palestinian) documented in this encounter Medications at Time [...] times daily. 1 Each 1 08/17/2019 1 ibuprofen (MOTRIN) 800 MG Tablet Take 1 Tab by mouth every 8 hours. 20 Tab 09/07/2019 1 ipratropium-albu terol (DUO-NEB) 0.5-2.5 (3) MG/3ML Solution 3 mL by Nebulization route 4 times daily. 360 Vial 3 04/05/2020 2 LORazepam (ATIVAN) 1 MG Tablet TAKE 1 TAB BY MOUTH NIGHTLY NEEDED FOR ANXIETY. 30 Tab 05/13/2020 0 Naproxen Sodium (ALEVE PO) Take by mouth daily. 1 triamcinolone (KENALOG) 0.1 % Cream Application Site: extremities x 4 and chest 1 Tube 07/31/2018 1 venlafaxine (EFFEXOR-XR) 37.5 MG CAPSULE SR 24 HR Take 1 Cap by mouth daily. 90 Cap 04/05/2020 0 documented as of this encounter ED Notes * Rojelio Bishop, DALTON - 05/17/2020 8:39 PM CDT Patient discharged. Discharge instructions and patient educational material reviewed with patient; questions and concerns addressed; patient verbalizes understanding, using teach back. Patient discharged per ambulatory mode with self as responsible green party. SL D/C'ed with Hugh cath intact. * Zully Felder RN - 05/17/2020 8:05 PM CDT Patient is resting in room with call light at bedside. Patient denies needs at this time and verbalizes understanding that RN will complete hourly rounding. No questions or concerns at this time. Fall precautions maintained. * Zully Felder RN - 05/17/2020 7:13 PM CDT Urine specimen sent to lab. 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 * Zully Felder RN - 05/17/2020 7:00 PM CDT Pt to restroom via wheelchair to collect urine specimen. * Zully Felder RN - 05/17/2020 6:46 PM CDT Report received from DALTON Self. * Trell Minor MD - 05/17/2020 6:34 PM CDT Chief Complaint Patient presents with ??? Numbness ??? Flank Pain Irma Seymour is a 39 y.o. female who presents to the emergency department complaining of numbnessand tingling and weakness of the right face. Patient states that on 3:00 a.m. in the morning on she was drinking and she had gotten up to go to the bathroom and fell hitting her head. She does not think she had loss of consciousness. She has had headaches since then. She has had no nausea or vomiting associated with it. She felt like he has had some tingling on the right side of her headsince the fall. Today at 3:00 p.m. she had sudden onset of numbness and tingling of the whole rightface. She states this persists. She feels like that maybe she had a little bit of droopiness of herright face also. Patient states that she does think she has UTI in the past with 1 UTI she had a Nava's spells he at the same time. Nothing makes symptoms better or worse. They are constant. They aremild. Past medical history: Illnesses: History of Nava's palsy, anxiety, COPD, alcohol abuse Medications: See list Allergies: Doxycycline and Bactrim Social History: Tobacco: Daily smoker Alcohol: States does not drink a lot however she has a chart review stating she does have alcohol abuse Drugs: Denies Family History: Coronary disease, diabetes and strokes Current Facility-Administered Medications Medication Dose Route Frequency Provider Last Rate Last Dose ??? hydrALAZINE (APRESOLINE) injection 10 mg 10 mg Intravenous Q4H PRN Trell Minor MD Current Outpatient Medications Medication Sig Dispense Refill ??? albuterol 108 (90 Base) MCG/ACT Aerosol Solution take 1-2 Puffs by inhalation every 4 hours as needed for Wheezing or Cough. 1 Inhaler 0 ??? Fluticasone-Salmeterol 55-14 MCG/ACT AEROSOL POWDER, BREATH ACTIVATED take 1 Puff by inhalation2 times daily. 1 Each 1 ??? ibuprofen (MOTRIN) 200 MG Tablet Take 3 Tabs by mouth every 6 hours as needed for Fever. (Patient not taking: Reported on 03/09/2019) 20 Tab 0 ??? ibuprofen (MOTRIN) 800 MG Tablet Take 1 Tab by mouth every 8 hours. 20 Tab 0 ??? ipratropium-albuterol (DUO-NEB) 0.5-2.5 (3) MG/3ML Solution 3 mL by Nebulization route 4 times daily. 360 Vial 3 ??? LORazepam (ATIVAN) 1 MG Tablet TAKE 1 TAB BY MOUTH NIGHTLY NEEDED FOR ANXIETY. 30 Tab 0 ??? Naproxen Sodium (ALEVE [...] (EFFEXOR-XR) 37.5 MG CAPSULE SR 24 HR Take 1 Cap by mouth daily. 90 Cap 0 Allergies Allergen Reactions ??? Doxycycline Rash ??? Bactrim [Sulfamethoxazole-Trimethoprim] Rash Past Medical History Positives Diagnosis Date ??? 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 Food insecurity: Worry: Never true Inability: Never true ??? Transportation needs: Medical: No Non-medical: No Tobacco Use ??? [...] Partners: Male control/protection: I.U.D. Lifestyle ??? Physical activity: Days per week: Not on file Minutes per session: Not on file ??? Stress: Not on file Relationships ??? Social connections: Talks on phone: Not on file Gets together: Not on file Attends mosque service: Not on file Active member of club or organization: Not on file Attends meetings of clubs or organizations: Not on file Relationship status: Not on file ??? Intimate partner violence: Fear of current or ex partner: Not on file Emotionally abused: Not on file Physically abused: Not on file Forced sexual activity: Not on file Other Topics Concern ??? Not on file Social History Narrative Pt resides with her parents, two siblings and her two sons; sons are 18 years old and 12 years old. BP 128/86 Pulse 74 Temp 97.7 ??F (36.5 ??C) (Tympanic) Resp 16 Ht 5' 3 (1.6 m) Wt 140 lb(63.5 kg) SpO2 100% BMI 24.80 kg/m?? Review of Systems Constitutional: Negative for activity change, appetite change, chills, diaphoresis, fatigue and fever. HENT: Negative for dental problem, rhinorrhea and sore throat. Eyes: Negative for visual disturbance. Respiratory: Negative for cough, chest tightness, shortness of breath and wheezing. Cardiovascular: Negative for chest pain, palpitations and leg swelling. Gastrointestinal: Negative for abdominal pain, constipation, diarrhea, nausea and vomiting. Genitourinary: Negative for difficulty urinating, flank pain, hematuria and urgency. Musculoskeletal: Negative for arthralgias, back pain, myalgias, neck pain and neck stiffness. Skin: Negative for color change and rash. Allergic/Immunologic: Negative for food allergies. Neurological: Positive for weakness, numbness and headaches. Negative for dizziness, syncope and light-headedness. Psychiatric/Behavioral: Negative for self-injury, sleep disturbance and [...] motion and neck supple. Thyroid: No thyromegaly. Vascular: No JVD. Trachea: [...] Normal range of motion. General: No tenderness. Lymphadenopathy: Cervical: No cervical adenopathy. Skin: General: Skin is warm and dry. Capillary Refill: Capillary refill takes less than 2 seconds. Coloration: Skin is not pale. Findings: No erythema or rash. Neurological: Mental Status: She is alert and oriented to person, place, and time. Cranial Nerves: No cranial nerve deficit. Sensory: Sensory deficit present. Motor: No weakness or abnormal muscle tone. Coordination: Coordination normal. Gait: Gait normal. Deep Tendon Reflexes: Reflexes are normal and symmetric. Reflexes normal. Comments: Patient has some subjective numbness to the right side of her face. She is able to shut her eyes tightly. She is able to raise her eyebrows. She does not have any facial droop. Initially when I examined her look like the right side may be a little bit weak however when we re-examined her than the left side looked like it was little weak. She was able to blow her cheeks out hold air in. Psychiatric: Behavior: Behavior normal. Thought Content: Thought content normal. NIHSS = 1 Procedures Imaging Results XR CHEST SINGLE VIEW PORTABLE (Final result) Result time 05/17/20 20:03:29 Final result by Ion Sharif MD (05/17/20 20:03:29) Impression: IMPRESSION: No acute cardiopulmonary disease. Narrative: EXAM DESCRIPTION: XR CHEST SINGLE VIEW PORTABLE REASON FOR STUDY: Sudden onset right-sided facial droop and intermittent blurry vision today TECHNIQUE: Frontal radiographic view of the chest acquired. COMPARISON: 03/16/2020 FINDINGS: LUNGS/PLEURA: No focal consolidation or pneumothorax. No pleural effusion. HEART/MEDIASTINUM: Heart size is normal. Normal mediastinal and hilar contours. HARDWARE/LINES/TUBES: None. BONES: Scoliotic curvature of the spine. OTHER: No other significant finding. THIS IS AN ELECTRONICALLY VERIFIED FINAL REPORT 05/17/2020 8:00 PM - Electronically signed by Ion Sharif M.D. SANDRA: SANDRA Report ID: [id number] Reading Location: [id number] CT HEAD OR BRAIN WO CONTRAST (Final result) Result time 05/17/20 18:13:49 Final result by Mounika Song MD (05/17/20 18:13:49) Impression: IMPRESSION: No acute intracranial findings. Narrative: EXAM DESCRIPTION: CT HEAD OR BRAIN WO CONTRAST REASON FOR STUDY: Neuro deficit, acute, stroke suspected TECHNIQUE: Axial images acquired through the brain without intravenous contrast. Images stored on PACS. Automated exposure control was used as a dose optimization technique for this examination. COMPARISON: None FINDINGS: BRAIN: Mild atrophy is present. No hemorrhage, edema or mass effect. No recent infarct. Normal white matter. EXTRA-AXIAL SPACES: No fluid collections. No masses. CALVARIUM: No fracture. SINUSES/MASTOIDS: No fluid or mucosal thickening. ORBITS: No significant abnormality. OTHER: No other significant abnormality. THIS IS AN ELECTRONICALLY VERIFIED FINAL REPORT 05/17/2020 6:11 PM - Electronically signed by Mounika Song M.D. LL: JENNIFER Report ID: [id number] Reading Location: [address] Labs Reviewed CMP (COMPREHENSIVE METABOLIC PANEL) - Abnormal; Notable for the following components: Result Value SODIUM 133 (*) CHLORIDE 97 (*) GLUCOSE 114 (*) All other components within normal limits POCT GLUCOSE - Abnormal; Notable for the following components: GLUCOSE,BEDSIDE POCT 104 (*) All other components within normal limits ETHYL ALCOHOL (ETHANOL) - Normal URINE DRUG SCREEN - Normal COMPLETE BLOOD COUNT (CBC) WITH DIFF Narrative: The following orders were created for panel order CBC with Diff. Procedure Abnormality Status --------- ------ CBC with Auto Differential[[id number]] Final result Please view results for these tests on the individual orders. UR TEST QUAL URINALYSIS REFLEX IF INDICATED BY ABNORMAL RESULTS EXTRA TUBES Narrative: The following orders were created for panel order Extra Tubes. Procedure Abnormality Status --------- ------ Blue Top Tube[[id number]] Final result Gold Top Tube[[id number]] Final result Lavender Top Tube[[id number]] Final result MINT GREEN, LI HEPARIN/S...[[id number]] Final result Please view results for these tests on the individual orders. CBC WITH AUTO DIFFERENTIAL BLUE TOP TUBE GOLD TOP TUBE LAVENDER TOP TUBE MINT GREEN, LI HEPARIN/SST TOP TUBE XR CHEST SINGLE VIEW PORTABLE Final Result IMPRESSION: No acute cardiopulmonary disease. Urine Drug Screen Final Result Urine Test Qualitative Final Result Urinalysis Reflex if Indicated by Abnormal Results Final Result Comprehensive Metabolic Panel (CMP) Final Result CBC with Diff Final Result Blood Alcohol Level Final Result Extra Tubes Final Result CT HEAD OR BRAIN WO CONTRAST Final Result IMPRESSION: No acute intracranial findings. EKG 12 LEAD (Results Pending) EKG interpreted by me. Time is 6:05 p.m.. Normal sinus rhythm with a rate of 67. Mission is normal. Intervals are normal. QRS complexes are unremarkable. ST segments are normal. T-waves are normal. There is no acute injury pattern. Compared to EKG dated 09/07/2019, there is no significant morphologic changes. Coding Clinical Impression 1. Right facial numbness The patient remained stable throughout their ED [...] return, and the need for follow up. New Medications: New Prescriptions No medications on file I have advised the patient to follow-up with: Amaya Kowalski, ART STUDIO TEACHER, ASSISTANT COUNTY ATTORNEY [address] [facility] [address] On 2020 Dispostion: Discharge * Clair Tovar RN - 05/17/2020 6:15 PM CDT ERP Mily verbally stated he does not want any neuro checks * Mary Ellen Torrez RN - 05/17/2020 5:56 PM CDT Pt to triage with c/o sudden onset of right facial droop, right facial numbness/tingling and intermittent blurry vision since 1500 today. Pt states she had a GLF this past Wednesday night/early morning after drinking and states she has had numbness to the top of her head since then. Pt also reports sensory deficit to the right side of her face. Denies sensory changes to arms or extremities. Speech is clear. Pt also has PMHx of Nava's palsy with a severe UTI and pt reports she believes she has a UTI at this time due to right flank pain and dysuria. Stroke alert 1 called and pt taken to CT immediately. Dr. Minor present. documented in this encounter Plan of Treatment Upcoming Encounters Date Type Department Care Team (Late st Contact Info) Description 03/21/2025 4:30 PM CDT Office Visit [facility] - [facility] - [place] [address] [place] [address] Shravan Burgos PAC [address] [place] [address] documented as of this encounter [...] a change Department associated with goal: [facility] Steps to [...] a change Department associated with goal: [facility] Steps to [...] Comments XR CHEST SINGLE VIEW PORTABLE STAT 05/17/2020 7:27 PM CDT URINE DRUG SCREEN STAT 05/17/2020 7:0 9 PM CDT URINALYSIS REFLEX IF INDICATED BY ABNORMAL RESULTS STAT 05/17/2020 7:08 PM CDT UR TEST QUAL STAT 05/17/2020 7:08 PM CDT EXTRA TUBES STAT 05/17/2020 6:11 PM CDT MINT CLARA GARCIA HEPARIN/SST TOP TUBE STAT 05/17/2020 6:11 PM CDT GOLD TOP TUBE STAT 05/17/2020 6:11 PM CDT BLUE TOP TUBE STAT 05/17/2020 6:11 PM CDT LAVENDER TOP TUBE STAT 05/17/2020 6:1 1 PM CDT CBC WITH AUTO DIFFERENTIAL STAT 05/17/2020 6:11 PM CDT ETHYL ALCOHOL (ETHANOL) STAT 05/17/2020 6:11 PM CDT CMP (COMPREHENSIVE METABOLIC PANEL) STAT 05/17/2020 6:11 PM CDT COMPLETE BLOOD COUNT (CBC) WITH DIFF STAT 05/17/2020 6:11 PM CDT EKG 12 LEAD STAT 05/17/2020 6:05 PM CDT POCT GLUCOSE STAT 05/17/2020 6:[address] HEAD OR BRAIN WO CONTRAST Stat with Interpretation 05/17/2020 6:00 PM CDT documented in this encounter Results * XR CHEST SINGLE VIEW PORTABLE (05/17/2020 7:27 PM CDT) Anatomical Region Laterality Modality Chest N/A Digital Radiogra phy 05/17/2020 8:00 PM CDT Impressions 05/17/2020 8:03 PM CDT IMPRESSION: ?? No acute cardiopulmonary disease. Narrative 05/17/2020 8:03 PM CDT EXAM DESCRIPTION: ?? XR CHEST SINGLE VIEW PORTABLE REASON FOR STUDY: ?? Sudden onset right-sided facial droop and intermittent blurry vision today TECHNIQUE: ?? Frontal radiographic view of the chest acquired. COMPARISON: ?? 03/16/2020 FINDINGS: ??LUNGS/PLEURA: ??No focal consolidation or pneumothorax. No pleural effusion. HEART/MEDIASTINUM: ??Heart size is normal. Normal mediastinal and hilar contours. HARDWARE/LINES/TUBES: ??None. BONES: ??Scoliotic curvature of the spine. OTHER: ??No other significant finding. THIS IS AN ELECTRONICALLY VERIFIED FINAL REPORT 05/17/2020 8:00 PM - Electronically signed by Ion Sharif M.D. SANDRA: SANDRA D: ??05/17/2020 8:00 PM T: ??05/17/2020 8:00 PM Report ID: [id number] Reading Location: ??[id number] Procedure Note Ion Sharif MD - 05/17/2020 EXAM DESCRIPTION: XR CHEST SINGLE VIEW PORTABLE REASON FOR STUDY: Sudden onset right-sided facial droop and intermittent blurry vision today TECHNIQUE: Frontal radiographic view of the chest acquired. COMPARISON: 03/16/2020 FINDINGS: LUNGS/PLEURA: No focal consolidation or pneumothorax. No pleural effusion. HEART/MEDIASTINUM: Heart size is normal. Normal mediastinal and hilar contours. HARDWARE/LINES/TUBES: None. BONES: Scoliotic curvature of the spine. OTHER: No other significant finding. THIS IS AN ELECTRONICALLY VERIFIED FINAL REPORT 05/17/2020 8:00 PM - Electronically signed by Ion Sharif M.D. SANDRA: SANDRA Report ID: [id number] Reading Location: [place] [address] IMPRESSION: No acute cardiopulmonary disease. Trell Minor MD IMG DIAGNOSTIC ORDERABLES Final Result * Urine Drug Screen (05/17/2020 7:09 PM CDT) UR AMPHETAMINE NON DETECTED NON DETECTED 05/17/2020 7:32 PM CDT [facility] UR BENZODIAZEPINES NON DETECTED NON DETECTED 05/17/2020 7:32 PM CDT [facility] UR COCAINE METABOLITE NON DETECTED NON DETECTED 05/17/2020 7:32 PM CDT [facility] UR OPIATES NON DETECTED NON DETECTED 05/17/2020 7:32 PM CDT [facility] UR PHENCYCLIDINE NON DETECTED NON DETECTED 05/17/2020 7:32 PM CDT [facility] UR CANNABINOID NON DETECTED NON DETECTED 05/17/2020 7:32 PM CDT [facility] UR TRICYCLIC ANTIDEPRESS SCREEN NON DETECTED NON DETECTED 05/17/2020 7:32 PM CDT [facility] UR BARBITURATE NON DETECTED NON DETECTED 05/17/2020 7:32 PM CDT [facility] Urine Non-Phlebotomy Collection / Unknown 05/17/2020 7:09 PM CDT 05/17/2020 7:10 PM CDT us Kris Severino MD URINE ORDERABLES Final Re sult [facility] [address] [place] [address] * Urinalysis Reflex if Indicated by Abnormal Results (05/17/2020 7:08 PM CDT) SPECIFIC GRAVITY 1.005 1.003 - 1.030 05/17/2020 7:18 PM CDT [facility] URINE PH 6.0 5.0 - 9.0 05/17/2020 7:18 PM CDT [facility] WBC ESTERASE Negative Negative 05/17/2020 7:18 PM CDT [facility] NITRITE Negative Negative 05/17/2020 7:18 PM CDT [facility] PROTEIN, RANDOM URINE Negative Negative 05/17/2020 7:18 PM CDT [facility] URINE GLUCOSE, QUAL Negative Negative 05/17/2020 7:18 PM CDT [facility] URINE KETONES Negative Negative 05/17/2020 7:18 PM CDT [facility] UROBILINOGEN Normal Normal mg/dL 05/17/2020 7:18 PM CDT [facility] URINE BILIRUBIN Negative Negative 0 7:18 PM CDT [facility] URINE BLOOD Negative Negative papi/ul 05/17/2020 7:18 PM CDT [facility] URINALYSIS COLOR Colorless 05/17/20 20 7:18 PM CDT [facility] URINALYSIS CLARITY Clear 05/17/2020 7:18 PM CDT [facility] Urine URINE SPECIMEN / Unknown Non-Phlebotomy Collection / Unknown 05/17/2020 7:08 PM CDT 05/17/2020 7:08 PM CDT Trell Minor MD URINE ORDERABLES Final Result Performing Organization Address City/State/[facility] [[email or web address]] Co de Phone Number [facility] [address] [place] [address] * Urine Test Qualitative (05/17/2020 7:08 PM CDT) PREG TEST,MONOCLONA L Negative 05/17/2020 7:20 PM CDT [facility] Urine Non-Phlebotomy Collection / Unknown 05/17/2020 7:08 PM CDT 05/17/2020 7:08 PM CDT Trell Minor MD URINE ORDERABLES Final Result Performing Organization Address City/[facility] [[email or web address]] Co de Phone Number [facility] [address] [place] [address] * CLARA LISA HEPARIN/SST TOP TUBE (05/17/2020 6:11 PM CDT) Blood Venous Catheter (IV) / Unknown 05/17/2020 6:11 PM CDT 05/17/2020 6:59 PM CDT Trell Minor MD HEMATOLOGY ORDERABLES Final Res ult Performing Organization Address [facility] [[email or web address]] Co de Phone Number [facility] [address] [place] [address] * Lavender Top Tube (05/17/2020 6:11 PM CDT) Blood Venous Catheter (IV) / Unknown 05/17/2020 6:11 PM CDT 05/17/2020 6:59 PM CDT Trell Minor MD HEMATOLOGY ORDERABLES Final Res ult Performing Organization Address [facility] [[email or web address]] Co de Phone Number [facility] [address] [place] [address] * Gold Top Tube (05/17/2020 6:11 PM CDT) Blood Venous Catheter (IV) / Unknown 05/17/2020 6:11 PM CDT 05/17/2020 6:59 PM CDT Trell Minor MD CHEMISTRY ORDERABLES Final Resu lt Performing Organization Address [facility] [[email or web address]] Co de Phone Number [facility] [address] [place] [address] * Blue Top Tube (05/17/2020 6:11 PM CDT) Blood Venous Catheter (IV) / Unknown 05/17/2020 6:11 PM CDT 05/17/2020 6:59 PM CDT Trell Minor MD HEMATOLOGY ORDERABLES Final Res ult [facility] [address] [place] [address] * CBC with Auto Differential (05/17/2020 6:11 PM CDT) WBC 8.37 4.00 - 12.00 10(3)/mcL 05/17/2020 7:02 PM CDT [facility] RBC 4.50 3.80 - 5.30 10(6)/mcL 05/17/2020 7:02 PM CDT [facility] HEMOGLOBIN (HGB) 14.5 12.0 - 15.8 g/dL 05/17/2020 7:02 PM CDT [facility] HEMATOCRIT (HCT) 42.9 36.0 - 47.0 % 05/17/2020 7:02 PM CDT [facility] MCV 95.3 82.0 - 96.0 fL 05/17/2020 7:02 PM CDT [facility] MCH 32.2 26.0 - 34.0 pg 05/17/2020 7:02 PM CDT [facility] MCHC 33.8 31.0 - 36.0 g/dL 05/17/2020 7:02 PM CDT [facility] PLATELET COUNT 270 140 - 440 10(3)/mcL 05/17/2020 7:02 PM CDT [facility] RDW 12.7 11.8 - 15.5 % 05/17/2020 7:02 PM CDT [facility] MPV 12.3 9.7 - 12.4 fL 05/17/2020 7:02 PM CDT [facility] NEUTROPHILS 58.0 47.0 - 73.0 % 05/17/2020 7:02 PM CDT [facility] LYMPHOCYTES 28.3 18.0 - 42.0 % 05/17/2020 7:02 PM CDT [facility] MONOCYTES 9.4 4.0 - 12.0 % 05/17/2020 7:02 PM CDT [facility] EOSINOPHILS 3.6 0.0 - 5.0 % 05/17/2020 7:02 PM CDT [facility] BASOPHILS 0.7 0.0 - 1.0 % 05/17/2020 7:02 PM CDT [facility] ABSOLUTE NEUTROPHILS 4.85 1.60 - 7.70 10(3)/[facility] 05/17/2020 7:02 PM CDT [facility] ABSOLUTE LYMPHOCYTES 2.37 1.30 - 3.20 10(3)/[facility] 05/17/2020 7:02 PM CDT [facility] ABSOLUTE MONOCYTES 0.79 0.20 - 1.00 10(3)/[facility] 05/17/2020 7:02 PM CDT [facility] ABSOLUTE EOSINOPHIL 0.30 0.00 - 0.40 10(3)/[facility] 05/17/2020 7:02 PM CDT [facility] ABSOLUTE BASOPHILS 0.06 0.00 - 0.10 10(3)/[facility] 05/17/2020 7:02 PM CDT [facility] NRBC PER 100 WBC 0 05/17/20 7:02 PM CDT [facility] Blood Venous Catheter (IV) / Unknown 05/17/2020 6:11 PM CDT 05/17/2020 6:56 PM CDT us Trell Minor MD HEMATOLOGY ORDERABLES Final Res ult [facility] [address] [place] [address] * Blood Alcohol Level (05/17/2020 6:11 PM CDT) ETHANOL <=10 <=10 mg/dL 05/17/2020 7:23 PM CDT [facility] Blood Venous Catheter (IV) / Unknown 05/17/2020 6:11 PM CDT 05/17/2020 6:56 PM CDT us Trell Minor MD CHEMISTRY ORDERABLES Final Resu lt [facility] [address] [place] [address] * (ABNORMAL) Comprehensive Metabolic Panel (CMP) (05/17/2020 6:11 PM CDT) SODIUM 133(L) 136 - 144 mmol/L 05/17/2020 7:23 PM CDT [facility] POTASSIUM 3.7 3.5 - 5.1 mmol/L 05/17/2020 7:23 PM CDT [facility] CHLORIDE 97(L) 100 - 110 mmol/L 05/17/2020 7:23 PM CDT [facility] CO2, VENOUS 25 22 - 32 mmol/L 05/17/2020 7:23 PM CDT [facility] ANION GAP 14.7 8.0 - 20.0 mmol/L 05/17/2020 7:23 PM CDT [facility] GLUCOSE 114(H) 70 - 99 mg/dL 05/17/2020 7:23 PM CDT [facility] BUN 9 6 - 20 mg/dL 05/17/2020 7:23 PM CDT [facility] CREATININE, BLOOD 0.65 0.60 - 1.10 mg/dL 05/17/2020 7:23 PM CDT [facility] BUN/CREATININE RATIO 14 12 - 20 ratio 05/17/2020 7:23 PM CDT [facility] TOTAL PROTEIN 8.0 6.0 - 8.3 g/dL 05/17/2020 7:23 PM CDT [facility] ALBUMIN 4.8 3.5 - 5.2 g/dL 05/17/2020 7:23 PM CDT [facility] Comment: The colormetric methods used for the determination of Albumin may lead to falsely elevated test results in patients suffering from renal failure or insufficiency due to interference with other proteins. A/G RATIO 1.5 1.0 - 2.0 05/17/2020 7:23 PM CDT [facility] CALCIUM 9.7 8.9 - 10.3 mg/dL 05/17/2020 7:23 PM CDT [facility] T BILI 0.6 <=1.2 mg/dL 05/17/2020 7:23 PM CDT [facility] SGOT (AST) 23 <=32 U/L 05/17/2020 7:23 PM CDT [facility] SGPT (ALT) 24 <=33 U/L 05/17/2020 7:23 PM CDT [facility] ALKALINE PHOSPHATASE 76 35 - 105 U/L 05/17/2020 7:23 PM CDT [facility] GFR, EST. NONAFRICAN >60 >=60 05/17/2020 7:23 PM CDT [facility] GFR, EST. >60 >=60 020 7:23 PM CDT [facility] Comment: Creatinine Clearance is the preferred criteria for selecting drug dose adjustments in renally impaired patients. ??The GFR is provided as additional pertinent clinical information. GFR is reported in mL/min/1.73 sq m. Blood Venous Catheter (IV) / Unknown 05/17/2020 6:11 PM CDT 05/17/2020 6:56 PM CDT us Trell Minor MD CHEMISTRY ORDERABLES Final Resu lt [facility] [address] [place] [address] * EKG 12 LEAD (05/17/2020 6:05 PM CDT) Ventricular Rate BPM EXTERNAL EKG Atrial Rate BPM EXTERNAL EKG P-R Interval 110 ms EXTERNAL EKG QRS Duration 84 ms EXTERNAL EKG Q-T Duration 378 ms EXTERNAL EKG QTC CALCULATION 400 ms EXTERNAL EKG P Mission -26 degrees EXTERNAL EKG R Mission -23 degrees EXTERNAL EKG T Mission -21 degrees EXTERNAL EKG 05/17/2020 6:05 PM CDT Impressions EXTERNAL EKG - 05/19/2020 1:34 PM CDT Sinus rhythm Within normal limits as previously Comparison Summary: No significant change Summary: Normal ECG Compared with:09/07/2019 11:13 AM Confirmed by Saray Oviedo [id number] on 05/19/2020 1:34:09 PM Narrative Procedure Note Nona So MD - 05/19/2020 IMPRESSION: Sinus rhythm Within normal limits as previously Comparison Summary: No significant change Summary: Normal ECG Compared with:09/07/2019 11:13 AM Confirmed by Saray Oviedo [id number] on 05/19/2020 1:34:09 PM us Trell Minor MD IMG ECG ORDERABLES Final Result Performing Organization Address City/[facility]/ZIP Co de Phone Number EXTERNAL EKG * (ABNORMAL) POCT Glucose (05/17/2020 6:05 PM CDT) [facility] Signature GLUCOSE,BEDSID E POCT 104(H) 70 - 99 mg/dL 05/17/2020 6:11 PM CDT [facility] Blood 05/17/2020 6:05 PM CDT 05/17/2020 6:11 PM CDT us None Provider POINT OF CARE TESTING Final Resu lt Performing Organization Address City/[facility]/ZIP Co de Phone Number [facility] [address] [place] [address] * CT HEAD OR BRAIN WO CONTRAST (05/17/2020 6:00 PM CDT) Anatomical Region Laterality Modality Head N/A Computed Tomogra phy 05/17/2020 6:11 PM CDT Impressions 05/17/2020 6:13 PM CDT IMPRESSION: ?? No acute intracranial findings. Narrative 05/17/2020 6:13 PM CDT EXAM DESCRIPTION: ?? CT HEAD OR BRAIN WO CONTRAST REASON FOR STUDY: ?? Neuro deficit, acute, stroke suspected TECHNIQUE: ??Axial images acquired through the brain without intravenous contrast. ??Images stored on PACS. ?? Automated exposure control was used as a dose optimization technique for this examination. COMPARISON: ?? None FINDINGS: ??BRAIN: ??Mild atrophy is present. ??No hemorrhage, edema or mass effect. No recent infarct. ??Normal white matter. ?? EXTRA-AXIAL SPACES: ??No fluid collections. No masses. CALVARIUM: ??No fracture. SINUSES/MASTOIDS: ??No fluid or mucosal thickening. ORBITS: ??No significant abnormality. OTHER: ??No other significant abnormality. THIS IS AN ELECTRONICALLY VERIFIED FINAL REPORT 05/17/2020 6:11 PM - Electronically signed by Mounika Song M.D. LL: JENNIFER D: ??05/17/2020 6:11 PM T: ??05/17/2020 6:11 PM Report ID: [id number] Reading Location: ??[id number] Procedure Note Mounika Song MD - 05/17/2020 EXAM DESCRIPTION: CT HEAD OR BRAIN WO CONTRAST REASON FOR STUDY: Neuro deficit, acute, stroke suspected TECHNIQUE: Axial images acquired through the brain without intravenous contrast. Images stored on PACS. Automated exposure control was used as a dose optimization technique for this examination. COMPARISON: None FINDINGS: BRAIN: Mild atrophy is present. No hemorrhage, edema or mass effect. No recent infarct. Normal white matter. EXTRA-AXIAL SPACES: No fluid collections. No masses. CALVARIUM: No fracture. SINUSES/MASTOIDS: No fluid or mucosal thickening. ORBITS: No significant abnormality. OTHER: No other significant abnormality. THIS IS AN ELECTRONICALLY VERIFIED FINAL REPORT 05/17/2020 6:11 PM - Electronically signed by Mounika Song M.D. LL: JENNIFER Report ID: [id number] Reading Location: [id number] IMPRESSION: No acute intracranial findings. Trell Minor MD IM CT ORDERABLES Final Result documented in this encounter Visit Diagnoses Diagnosis Right facial numbness- Primary Disturbance of skin sensation documented in this encounter Administered Medications Inactive Administered Medications - up to 3 most recent administrations Medication Order MAR Action Action Date Dose Rate Site hydrALAZINE (APRESOLINE) injection 10 mg 10 mg, Intravenous, EVERY 4 HOURS PRN, Starting on Wed05/17/20 at 1821, Until Wed05/17/20 at 2239, High Blood Pressure, Non - Reperfusion. Administer 10 mg every hour IVP over 2 minutes for SBP greater than 220. May repeat initial dose in 10 minutes x 1. If BP remains greater than 220 or PRN required hourly x 2 consecutive hours, initiate nicardipine or clevidipine. documented in this encounter Active and Recently Administered Medications Times are shown in CDT. PRN Medication Order 05/15/2020 05/16/2020 05/17/2020 hydrALAZINE (APRESOLINE) injection 10 mg 10 mg, Intravenous, EVERY 4 HOURS PRN, Starting on Wed05/17/20 at 1821, Until Wed05/17/20 at 2239, High Blood Pressure, Non - Reperfusion. Administer 10 mg every hour IVP over 2 minutes for SBP greater than 220. May repeat initial dose in 10 minutes x 1. If BP remains greater than 220 or PRN required hourly x 2 consecutive hours, initiate nicardipine or clevidipine. documented in this encounter Additional Health Concerns Assessment Noted Time PHQ-9 Depression Total Score: 13 020 2:00 PM CDT documented as of this encounter Care Teams Stage Hand Relationship Specialty Start Date End Date Amaya Kowalski APRN, D[place]GL[place] [address] [place] [address] PCP - General Advanced Practice Nurse 06/10/18 documented as of this encounter
--- OUTSIDE RECORDS SUMMARY | 2024-11-30 17:26 | XMS_ITS | Encounter Summary ---
Author Organization [employer] Care Team Providers Care Operator Bearer Systems Name Role Phone Amaya Kowalski APRN, MANAGER SOUND Primary Care Provider Encounter Details Date Type Department Care Team (Latest Contact Info) Description 05/23/2020 Travel Social History Tobacco Use Types Packs/Day [...] PM CDT Office Visit [facility] - Primary Care - [place] [address] [place] [address] Shravan Burgos, PAC [address] [place] [address] documented as of this encounter Goals Goal Patient Goal Type Associated Problems Recent Progress Patient-Stated? Author [facility] On track(2019 9:50 AM CDT) Yes [...] (current and past) that trigger mood concerns. [facility] On track(2019 9:50 AM [...] documented as of this encounter Care Teams Operator Bearer Systems Relationship Specialty Start Date End Date Amaya Kowalski APRN, MANAGER SOUND [address] [place] [address] PCP - General Advanced Practice Nurse 06/10/18 documented as of this encounter
--- OUTSIDE RECORDS SUMMARY | 2024-11-30 17:26 | XMS_ITS | Encounter Summary ---
Author Organization [facility] Address [address] [place] [address] Phone Care Team Providers Care Professor Of Latin American Studies Name Role Phone Amaya Kowalski APRN, CNP Primary Care Provider Reason for Visit * Reason Comments Medication Refill Encounter Details Date Type Department Care Team (Late st Contact Info) Description 07/22/2020 Refill [facility] [place] [address] [place] [address] Amaya Kowalski APRN, GAS SINGER [address] [place] [address] Medication Refill Social History Tobacco [...] Encounter - Amaya Kowalski APN, CNP - 07/23/2020 1:00 PM CDT [place] prescription monitoring site reviewed medication approved * Telephone Encounter - Mohini Aguirre RN - 07/22/2020 4:26 PM CDT Last refill 06/19/20 for lorazepam with #30 and 0 refills. Last labs done 05/17/20. Last office visit 04/05/20. Future office visit -none. documented in this encounter Plan of Treatment Upcoming Encounters Date Type Department Care Team (Late st Contact Info) Description 03/21/2025 4:30 PM CDT Office Visit [facility] - Primary Care - [place] [address] [place] [address] Shravan Burgos PAC [address] [place] [address] documented as of this encounter Goals Goal Patient Goal Type Associated Problems Recent Progress Patient-Stated? [facility] On track(2019 9:50 AM CDT) Yes Eloise Jenkins, LEAD QUALITY CONTROL TECHNICIAN Note: Irma reported her goal for psychotherapy is to help me be able to deal with things in the present and in her past that are contributing to low and anxious mood. Goal Reviewed with: patient Readiness to change: Thinking about making a change Department associated with goal: [facility] Steps to [...] make a change Department associated with goal: [facility] Steps to [...] of this encounter Care Teams Professor Of Latin American Studies Relationship Specialty Start Date End Date Amaya Kowalski, MEDICAL STAFF CREDENTIALING COORDINATOR, GAS SINGER [address] [place] [address] PCP - General Advanced Practice Nurse 06/10/18 documented as of this encounter
--- OUTSIDE RECORDS SUMMARY | 2024-11-30 17:27 | XMS_ITS | Encounter Summary ---
Author Organization [facility] Address [address] [place] [address] Phone Care Team Providers Care Install And Repair Technician Name Role Phone Amaya Kowalski APRN, CNP Primary Care Provider Reason for Visit * Reason Comments Medication Refill Encounter Details Date Type Department Care Team ([facility] st Contact Info) Description 05/12/2020 Refill [facility] [place] [address] [place] [id number] Amaya Kowalski APRN, EXECUTIVE ASSISTANT TO GENERAL COUNSEL [address] [place] [address] Medication Refill Social History Tobacco [...] have Coronavirus / COVID-19? No / Unsure 04/16/2020 1:56 PM CDT documented as of this encounter Miscellaneous Notes * Telephone Encounter - Amaya Kowalski APN, CNP - 05/13/2020 8:43 AM CDT [place] prescription monitoring site reviewed. Medication approved. * Telephone Encounter - Amaya Jackman, RN - 05/12/2020 6:24 PM CDT Requested Prescriptions Pending Prescriptions Disp Refills LORazepam (ATIVAN) 1 MG Tablet [Pharmacy Med Name: LORAZEPAM 1 MG TABLET] 30 Tab 0 Sig: Take 1 Tab by mouth nightly as needed for Anxiety. There is no refill protocol information for this order documented in this encounter Plan of Treatment Upcoming Encounters Date Type Department Care Team (Late st Contact Info) Description 03/21/2025 4:30 PM CDT Office Visit [facility] - Primary Care - [place] [address] [place] [address] Shravan Burgos PAC [address] [place] [address] documented as of this encounter [...] a change Department associated with goal: [facility] Steps to [...] a change Department associated with goal: [facility] Steps to [...] documented as of this encounter Care Teams Install And Repair Technician Relationship Specialty Start Date End Date Amaya Kowalski, COLLECTIONS PROFESSIONAL, EXECUTIVE ASSISTANT TO GENERAL COUNSEL [address] [place] [address] PCP - General Advanced Practice Nurse 06/10/18 documented as of this encounter
--- OUTSIDE RECORDS SUMMARY | 2024-11-30 17:27 | XMS_ITS | Encounter Summary ---
Author Organization [facility] Address [address] [place] [address] Phone Care Team Providers Care Polisher And Sander Name Role Phone Amaya Kowalski APRN, CNP Primary Care Provider Encounter Details Date Type Department Care Team (Late Contact Info) Description 04/10/[facility] [address] [place] [address] Eloise Jenkins, [facility] Social History Tobacco Use Types Packs/Day Years Used Date Smoking Tobacco: Some Days Cigarettes Smokeless Tobacco: Never Alcohol Use Standard Drinks/Week Comments Yes 0 (1 standard drink = 0.6 oz pur e alcohol) socially PHQ-2 Answer Date Recorded PHQ-2 Score 9 04/05/2020 Sexually Active Control Partners Comments Not Currently Comments No Sex and Gender Information Value Date Recorded Sex Assigned at Not on file Legal Sex Female 9:34 PM CDT Gender Identity Not on file Sexual Orientation Not on file COVID-19 Exposure Response Date Recorded In the last month, have you been in contact with someone who was confirmed or suspected to have Coronavirus / COVID-19? No / Unsure 04/05/2020 9:05 AM CDT documented as of this encounter Plan of Treatment Upcoming Encounters Date Type Department Care Team (Late Contact Info) Description 03/21/2025 4:30 PM CDT Office Visit [facility] - Primary Care - [place] [address] Shravan Burgos, PAC [address] [place] [address] documented as of this encounter Visit Diagnoses Not on filedocumented in this encounter Additional Health Concerns Assessment Noted Time PHQ-9 Depression Total Score: 9 04/05/20 20 9:22 AM CDT documented as of this encounter Care Teams Polisher And Sander Relationship Specialty Start Date End Date Amaya Kowalski, WHITEWATER RAFTING GUIDE, WELFARE INVESTIGATOR [address] [place] [address] PCP - General Advanced Practice Nurse 06/10/18 documented as of this encounter
--- OUTSIDE RECORDS SUMMARY | 2024-11-30 17:27 | XMS_ITS | Encounter Summary ---
Author Organization [facility] Address [address] [place] [address] Phone Care Team Providers Care Concession Supervisor Name Role Phone Amaya Kowalski APRN, CNP Primary Care Provider Encounter Details Date Type Department Care Team (Late Contact Info) Description 04/08/2020 [facility] [address] [place] [address] Eloise Jenkins, [facility] Social History Tobacco Use Types Packs/Day Years [...] Description 03/21/2025 4:30 PM CDT Office Visit [facility] - Primary Care - [address] [place] [address] Shravan Burgos, PAC [address] [place] [address] documented as of this encounter Visit Diagnoses Not on filedocumented in this encounter Additional Health Concerns Assessment Noted Time PHQ-9 Depression Total Score: 9 04/05/20 20 9:22 AM CDT documented as of this encounter Care Teams Concession Supervisor Relationship Specialty Start Date End Date Amaya Kowalski, CHARTER REPRESENTATIVE, CANDY COOKER HELPER [address] [place] [address] PCP - General Advanced Practice Nurse 06/10/18 documented as of this encounter
--- OUTSIDE RECORDS SUMMARY | 2024-11-30 17:27 | XMS_ITS | Encounter Summary ---
Author Organization [facility] Address [address] [place] [address] Phone Care Team Providers Care Keyseating Machine Set Up Operator Name Role Phone Amaya Kowalski APRN, CNP Primary Care Provider Encounter Details Date Type Department Care Team (Late Contact Info) Description 04/12/2020 [facility]phone [facility] [address] [place] [address] Eloise Jenkins, [facility] Social History Tobacco Use Types Packs/Day Years [...] Primary Care - [place] [address] Shravan Burgos, PAC [address] [place] [address] documented as of this encounter Visit Diagnoses Not on filedocumented in this encounter Additional Health Concerns Assessment Noted Time PHQ-9 Depression Total Score: 9 04/05/20 20 9:22 AM CDT documented as of this encounter Care Teams Keyseating Machine Set Up Operator Relationship Specialty Start Date End Date Amaya Kowalski, CARBIDE TOOL DIE MAKER, MACHINIST TOOL AND DIE [address] [place] [address] PCP - General Advanced Practice Nurse 06/10/18 documented as of this encounter
--- OUTSIDE RECORDS SUMMARY | 2024-11-30 17:27 | XMS_ITS | Encounter Summary ---
Author Organization [facility] Address [address] [place] [address] Phone Care Team Providers Care Cardiothoracic Anesthesia Technician Name Role Phone Amaya Kowalski APRN, CNP Primary Care Provider Encounter Details Date Type Department Care Team (Late Contact Info) Description [facility]/10/2020 [facility] [address] [place] [address] Eloise Jenkins, [facility] Social History Tobacco Use Types Packs/Day Years [...] Office Visit [facility] - Primary Care - [place] [place] [address] Shravan Burgos, PAC [address] [place] [address] documented as of this encounter Visit Diagnoses Not on filedocumented in this encounter Additional Health Concerns Assessment Noted Time PHQ-9 Depression Total Score: 9 04/05/20 20 9:22 AM CDT documented as of this encounter Care Teams Cardiothoracic Anesthesia Technician Relationship Specialty Start Date End Date Amaya Kowalski, PULMONARY FUNCTION TECHNOLOGIST, KNOCKUP WORKER [address] [place] [address] PCP - General Advanced Practice Nurse 06/10/18 documented as of this encounter
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
--- OUTSIDE RECORDS SUMMARY | 2024-11-30 17:27 | XMS_ITS | Encounter Summary ---
Author Organization [facility] Address [address] [place] [address] Phone Care Team Providers Care Technical Instructor Name Role Phone Amaya Kowalski APRN, CNP Primary Care Provider Reason for Visit * Reason Onset Date Comments Form Completion 04/16/2020 nebulizer suppli es Encounter Details Date Type Department Care Team (Late st Contact Info) Description 04/16/2020 Telephone [facility] [address] [place] [address] Amaya Kowalski APRN, CNP [address] [place] [address] Form Completion (nebulizer supplies) Social History Tobacco Use Types Packs/Day Years [...] Functional Status documented as of this encounter Miscellaneous Notes * Telephone Encounter - Mohini Aguirre RN - 04/29/2020 9:39 AM CDT Signed and faxed successfully. * Telephone Encounter - Mohini Aguirre RN - 04/16/2020 3:33 PM CDT Received form for nebulizer supplies from [employer]. Placed in PCP inbox for signature. To be faxed to [phone] after signed. documented in this encounter Plan of Treatment Upcoming Encounters Date Type Department Care Team (Late st Contact Info) Description 03/21/2025 4:30 PM CDT Office Visit [facility] - Primary Care - [place] [address] [place] [address] Shravan Burgos PAC [address] [place] [address] documented as of this encounter [...] as of this encounter Care Teams Technical Instructor Relationship Specialty Start Date End Date Amaya Kowalski, CRAFT CENTER DIRECTOR, COMBER SETTER [address] [place] [address] PCP - General Advanced Practice Nurse 06/10/18 documented as of this encounter
--- OUTSIDE RECORDS SUMMARY | 2024-11-30 17:27 | XMS_ITS | Encounter Summary ---
Author Organization [facility] Address [address] [place] [address] Phone Care Team Providers Care Cnp Name Role Phone Amaya Kowalski APRN, SEX WORKER OR ESCORT Primary Care Provider Reason for Visit * Reason Onset Date Comments Head Injury 05/17/2020 Encounter Details Date Type Department Care Team (Late st Contact Info) Description 05/17/2020 Nurse Triage [facility] [address] [place], [place] [id number] Amaya Kowalski, POWER WHEELCHAIR MECHANIC, SEX WORKER OR ESCORT [address] [place] [address] Head Injury Social History Tobacco Use Types Packs/Day Years [...] encounter Miscellaneous Notes * Telephone Encounter - Zoë Nava RN - 05/17/2020 4:01 PM CDT SITUATION: Head injury BACKGROUND: Fell yesterday morning, was drinking the night before. ASSESSMENT: Symptom Description / Location: Patient is calling and states she hit her head on the right forehead. She states there is swelling, under the size of her palm of the hand. Denies bruising. States it's a little sore. Patient states the right side of the head may be a little numb and tingly, but states she has anxiety so she's not too sure. Denies losing any consciousness. Denies any headache or vomiting. Pain (0-10): 0/10 at rest 5/10 when touched Temp: denies fever Treatment / Response: ice yesterday and this morning, helped the swelling RECOMMENDATION: See care advice and disposition for Guideline First positive answer recorded, all responses to prior questions were negative. If symptoms increase, change or if new symptoms develop, call your HCP or call back. Recommendations were based on caller information and is not a diagnosis. Verified and reviewed all triage information with caller. Reason for Disposition ??? Minor head injury Protocols used: HEAD INJURY-A-OH Patient states she's worked herself up with anxiety and is going to the ED. documented in this encounter Plan of Treatment Upcoming Encounters Date Type Department Care Team (Late st Contact Info) Description 03/21/2025 4:30 PM CDT Office Visit [facility] - Primary Care - [place] [address] [place] [address] Shravan Burgos, PAC [address] [place] [address] documented as of this encounter Goals Goal Patient Goal Type Associated Problems Recent Progress Patient-Stated? Author Behavioral [facility] Behavioral Health On track(2019 9:50 AM CDT) Yes Eloise Jenkins LCPC Note: Irma reported her goal for psychotherapy is to help me be able to deal with things in the present and in her past that are contributing to low and anxious mood. Goal Reviewed with: patient Readiness to change: Thinking about making a change Department associated with goal: [facility] Steps to achieve [...] and past) that trigger mood concerns. Behavioral [facility] Behavioral Health On track(2019 9:50 AM CDT) No Eloise Jenkins LCPC Note: Irma will engage in a plan of action to improve emotional and mental wellbeing. Goal Reviewed with: patient Readiness to change: Not yet ready to make a change Department associated with goal: [facility] Steps to achieve [...] documented as of this encounter Care Teams Cnp Relationship Specialty Start Date End Date Amaya Kowalski, POWER WHEELCHAIR MECHANIC, SEX WORKER OR ESCORT [address] [place] [address] PCP - General Advanced Practice Nurse 06/10/18 documented as of this encounter
--- OUTSIDE RECORDS SUMMARY | 2024-11-30 17:27 | XMS_ITS | Encounter Summary ---
Author Organization [employer] Care Team Providers Care Raw Stock Drier Tender Name Role Phone Amaya Kowalski APRN, STAMP PAD MAKER Primary Care Provider Encounter Details Date Type Department Care Team (Latest Contact Info) Description 04/16/2020 Travel Social History Tobacco Use Types Packs/Day [...] Functional Status documented as of this encounter Plan of Treatment Upcoming Encounters Date Type Department Care Team (Late st Contact Info) Description 03/21/2025 4:30 PM CDT Office Visit [facility] - Primary Care - [place] [address] [place] [address] Shravan Burgos, PAC [address] [place] [address] documented as of this encounter Goals Goal Patient Goal Type Associated Problems Recent Progress Patient-Stated? Author [facility] Behavioral Health On track(2019 9:50 [...] and past) that trigger mood concerns. Behavioral [facility] Behavioral Health On track(2019 9:50 AM CDT) No Eloise Jnekins LCPC Note: Irma will engage in a [...] documented as of this encounter Care Teams Raw Stock Drier Tender Relationship Specialty Start Date End Date Amaya Kowalski, CRICKET COACH, STAMP PAD MAKER [address] [place] [address] PCP - General Advanced Practice Nurse 06/10/18 documented as of this encounter
--- OUTSIDE RECORDS SUMMARY | 2024-11-30 17:27 | XMS_ITS | Encounter Summary ---
Author Organization [facility] Address [address] [place] [address] Phone Care Team Providers Care Operating Room Assistant Name Role Phone Amaya Kowalski APRN, CNP Primary Care Provider Encounter Details Date Type Department Care Team (Late st Contact Info) Description 04/19/2020 Telephone [facility] [address] [place] [address] Eloise Jenkins, [facility] Social History Tobacco Use Types Packs/Day [...] CDT Office Visit [facility] - Primary Care - [place] [address] [place] [address] Shravan Burgos, PAPI [address] [place] [address] documented as of this encounter [...] documented as of this encounter Care Teams Operating Room Assistant Relationship Specialty Start Date End Date Amaya Kowalski, PHYSICIAN PRACTICE ADMINISTRATOR, MANAGER PACKAGE [address] [place] [address] PCP - General Advanced Practice Nurse 06/10/18 documented as of this encounter
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
--- OUTSIDE RECORDS SUMMARY | 2024-11-30 17:28 | XMS_ITS | Encounter Summary ---
Author Organization [facility] Address [address] [facility] [place] [address] Phone Care Team Providers Care Jewelry Facer Name Role Phone mAaya Kowalski APRN, CNP Primary Care Provider Reason for Visit * Reason Comments Medication Refill Encounter Details Date Type Department Care Team (Late st Contact Info) Description 03/07/2020 [facility] [address] [place] [phone] Amaya Kowalski APRN, CNP [address] [place] [address] Medication Refill Social History Tobacco Use Types Packs/Day Years Used Date Smoking Tobacco: Some Days Cigarettes Smokeless Tobacco: Never Alcohol Use Standard Drinks/Week Comments Yes 0 (1 standard drink = 0.6 oz pur e alcohol) socially PHQ-2 Answer Date Recorded PHQ-2 Score 0 08/17/2019 Sexually Active Control Partners Comments Not Currently Comments No Sex and Gender Information Value Date Recorded Sex Assigned at Not on file Legal Sex Female 9:34 PM CDT Gender Identity Not on file Sexual Orientation Not on file documented as of this encounter Miscellaneous Notes * Telephone Encounter - Amaya Kowalski APN, CNP - 03/08/2020 9:26 AM CDT Approved * Telephone Encounter - Eloise Pedroza, RN - 03/08/2020 7:12 AM CDT Requested Prescriptions Pending Prescriptions Disp Refills LORazepam (ATIVAN) 1 MG Tablet [Pharmacy Med Name: LORAZEPAM 1 MG TABLET] 30 Tab 0 Sig: TAKE 1 TAB BY MOUTH NIGHTLY NEEDED FOR ANXIETY. There is no refill protocol information for this order documented in this encounter Plan of Treatment Upcoming Encounters Date Type Department Care Team (Late st Contact Info) Description 03/21/2025 4:30 PM CDT Office Visit [facility] - [place] [address] [place] [phone] Shravan Burgos PAC [address] [place] [phone] documented as of this encounter Visit Diagnoses Not on filedocumented in this encounter Additional Health Concerns Assessment Noted Time PHQ-9 Depression Total Score: 0 08/17/20 19 1:00 PM CDT documented as of this encounter Care Teams Jewelry Facer Relationship Specialty Start Date End Date Amaya Kowalski APRN, CNP [address] [place] [id number] PCP - General Advanced Practice Nurse 06/10/18 documented as of this encounter
--- OUTSIDE RECORDS SUMMARY | 2024-11-30 17:28 | XMS_ITS | Encounter Summary ---
Author Organization [facility] Address [address] [place] [address] Phone Care Team Providers Care Gas Main Fitter Name Role Phone Amaya Kowalski APRN, CNP Primary Care Provider Reason for Visit * Reason Comments Medication Refill Encounter Details Date Type Department Care Team (Late st Contact Info) Description 03/21/2020 Refill [facility] [address] [place] [address] Amaya Kowalski, MEGAN, CARPET MECHANIC [address] [place] [address] Medication Refill Social History Tobacco [...] have Coronavirus / COVID-19? No / Unsure 03/16/2020 12:21 PM CDT documented as of this encounter Miscellaneous Notes * Telephone Encounter - Amaya Kowalski, KENTON, CARPET MECHANIC - 03/22/2020 7:54 AM CDT Approved * Telephone Encounter - Amaya Jackman RN - 03/21/2020 2:09 PM CDT Requested Prescriptions Pending Prescriptions Disp Refills ALBUTEROL 108 (90 Base) MCG/ACT Aerosol Solution [Pharmacy Med Name: ALBUTEROL HFA (PROAIR) INHALER] 1 Inhaler 0 Sig: TAKE 1-2 PUFFS BY INHALATION EVERY 4 HOURS NEEDED FOR WHEEZING OR COUGH. Pulmonology: Beta Agonists - Albuterol & Levalbuterol Failed - 03/21/2020 2:09 PM Failed - Valid encounter within last 6 months Past Office Visits Recent Outpatient Visits 7 months ago Anxiety [facility] - Amaya Yoder APN, CNP 1 year ago Chronic bronchitis with productive mucopurulent cough (HCC) [facility] - Fox Conde PAC 1 year ago Chronic bronchitis, unspecified chronic bronchitis type (HCC) [facility] - Amaya Yoder APN, CNP 1 year ago Cough [facility] - Amaya Yoder APN, CNP 1 year ago Urinary frequency [facility] - Amaya Yoder APN, CNP Upcoming Appointments Future Appointments In 2 weeks Amaya Kowalski APN, CNP [facility] [address] Failed - May refill 2 inhalers, 0 refills one time since last office visit. May refill #50 nebulizer vials, 0 refills for albuterol or #48 vials, 0 refills for Xopenex one time since last office visit. Passed - Last BP in normal range BP Readings from Last 1 Encounters: 03/16/20 120/62 documented in this encounter Plan of Treatment Upcoming Encounters Date Type Department Care Team (Late st Contact Info) Description 03/21/2025 4:30 PM CDT Office Visit [facility] [place] [address] [place] [address] Shravan Burgos, PAC [address] [place] [address] documented as of this encounter Visit Diagnoses Not on filedocumented in this encounter Additional Health Concerns Assessment Noted Time PHQ-9 Depression Total Score: 0 08/17/20 19 1:00 PM CDT documented as of this encounter Care Teams Gas Main Fitter Relationship Specialty Start Date End Date Amaya Kowalski, ASSEMBLY INSTRUCTIONS WRITER, CARPET MECHANIC [address] [place] [address] PCP - General Advanced Practice Nurse 06/10/18 documented as of this encounter
--- OUTSIDE RECORDS SUMMARY | 2024-11-30 17:28 | XMS_ITS | Encounter Summary ---
Author Organization [facility] Address [address] [place] [address] Phone Care Team Providers Care Business Development Assistant Name Role Phone Amaya Kowalski APRN, CNP Primary Care Provider Reason for Referral * Radiology Services (STAT with Interpretation) - Closed Specialty Diagnoses / Procedures Referred By Claudio remy Referred To Contact Radiology Diagnoses Cough Wheezing Procedures XR CHEST 2 VIEWS Lina Tan APRN, DOUGLAS Phone: tel: fax: Referral ID Status Reason Start Date Expiration Date Visits Re quested Visits Authorized [id number] Closed 03/16/2020 1 1 Reason for Visit * Radiology Services (STAT with Interpretation) - Closed Specialty Diagnoses / Procedures Referred By Claudio remy Referred To Contact Radiology Diagnoses Cough Wheezing Procedures XR CHEST 2 VIEWS Lina Tan APRN, SOLAR SALES REP Phone: tel: fax: Referral ID Status Reason Start Date Expiration Date Visits Re quested Visits Authorized [id number] Closed 03/16/2020 1 1 Encounter Details Date Type Department Care Team ([facility] st Contact Info) Description 03/16/2020 1:37 PM CDT - 03/16/2020 11:59 PM CDT Hospital Encounter [facility] Diagnostic Radiology [address] [place] [address] Lina Tan APRN, SOLAR SALES REP [address] [place] [address] Discharge Disposition: Discharged to home or Selfcare [...] 4 times daily prn 1 Each 02/16/2019 AFLURIA QUADRIVALENT 0.5 ML Suspension Prefilled Syringe 09/26/2018 02 0 albuterol 108 (90 Base) MCG/ACT Aerosol Solution take 1-2 Puffs by inhalation every 4 hours as needed for Wheezing or Cough. 8.5 g 08/17/2019 0 Fluticasone-Salme terol 55-14 MCG/ACT AEROSOL POWDER, BREATH ACTIVATED take 1 Puff by inhalation 2 times daily. 1 Each 1 08/17/2019 1 ibuprofen (MOTRIN) 800 MG Tablet Take 1 Tab by mouth every 8 hours. 20 Tab 09/07/2019 1 ipratropium-albut kamala (DUO-NEB) 0.5-2.5 (3) MG/3ML Solution 3 mL by Nebulization route 4 times daily. 360 Vial 3 02/14/2019 0 LORazepam (ATIVAN) 1 MG Tablet TAKE 1 TAB BY MOUTH NIGHTLY NEEDED FOR ANXIETY. 30 Tab 03/08/2020 0 Naproxen Sodium (ALEVE PO) Take by mouth daily. 1 predniSONE (DELTASONE) 10 MG TabletIndications :Simple chronic bronchitis (HCC) Take 1 Tab by mouth daily. Take 4 tab PO daily x 2 days, 3 tab PO daily x 2 days, 2 tab PO daily x 2 day, 1 tab PO daily x 2 days. 20 Tab 03/16/2020 0 triamcinolone (KENALOG) 0.1 % Cream Application Site: extremities x 4 and chest 1 Tube 07/31/2018 1 documented as of this encounter Plan of Treatment Upcoming Encounters Date Type Department Care Team (Late st Contact Info) Description 03/21/2025 4:30 PM CDT Office Visit [facility] - Primary Care - [place] [address] [place] [address] Shravan Burgos, PAC [address] [place] [address] documented as of this encounter Procedures Procedure Name Priority Date/Time Associated Diagnosis Comments XR CHEST 2 VIEWS Stat with Interpretation 03/16/2020 1:40 PM CDT Cough Wheezing documented in this encounter Results * XR CHEST 2 VIEWS (03/16/2020 1:40 PM CDT) Anatomical Region Laterality Modality Chest N/A Digital Radiogra phy 03/16/2020 1:53 PM CDT Impressions 03/16/2020 1:56 PM CDT IMPRESSION: ??No radiographic evidence of an acute cardiopulmonary abnormality. Narrative 03/16/2020 1:56 PM CDT EXAM DESCRIPTION: ??XR CHEST 2 VIEWS REASON FOR STUDY: ??Cough, wheezing for 3 days. ??History of asthma, bronchitis. ??Smoker. TECHNIQUE: ??Frontal and lateral radiographic views of the chest acquired. COMPARISON: ??09/07/2019 FINDINGS: ??LUNGS/PLEURA: No focal consolidation, pneumothorax, or pleural effusion is identified. HEART/MEDIASTINUM: Heart size is normal. Normal mediastinal and hilar contours. HARDWARE/LINES/TUBES: None. BONES: No acute findings. ??Thoracolumbar dextroscoliosis. OTHER: No other significant finding. THIS IS AN ELECTRONICALLY VERIFIED FINAL REPORT 03/16/2020 1:53 PM - Electronically signed by Rajeev Castrejon M.D., MD: D: ??03/16/2020 1:53 PM T: ??03/16/2020 1:53 PM Report ID: [id number] Reading Location: ??[id number] Procedure Note Raejev Castrejon MD - 03/16/2020 EXAM DESCRIPTION: XR CHEST 2 VIEWS REASON FOR STUDY: Cough, wheezing for 3 days. History of asthma, bronchitis. Smoker. TECHNIQUE: Frontal and lateral radiographic views of the chest acquired. COMPARISON: 09/07/2019 FINDINGS: LUNGS/PLEURA: No focal consolidation, pneumothorax, or pleural effusion is identified. HEART/MEDIASTINUM: Heart size is normal. Normal mediastinal and hilar contours. HARDWARE/LINES/TUBES: None. BONES: No acute findings. Thoracolumbar dextroscoliosis. OTHER: No other significant finding. THIS IS AN ELECTRONICALLY VERIFIED FINAL REPORT 03/16/2020 1:53 PM - Electronically signed by Rajeev Castrejon M.D., MD: Report ID: [id number] Reading Location: [id number] IMPRESSION: No radiographic evidence of an acute cardiopulmonary abnormality. DOUGLAS Cardenas APRN DIAGNOSTIC OR DERABLES Final Result documented in this encounter Visit Diagnoses Diagnosis Cough Wheezing documented in this encounter Additional Health Concerns Assessment Noted Time PHQ-9 Depression Total Score: 0 08/17/20 19 1:00 PM CDT documented as of this encounter Care Teams Business Development Assistant Relationship Specialty Start Date End Date Amaya Kowalski APRN, CNP [address] [place] [address] PCP - General Advanced Practice Nurse 06/10/18 documented as of this encounter
--- OUTSIDE RECORDS SUMMARY | 2024-11-30 17:28 | XMS_ITS | Encounter Summary ---
Author Organization [facility] Address [address] [place] [place] [address] Phone Care Team Providers Care [employer] Name Role Phone Amaya Kowalski APRN, CNP Primary Care Provider Reason for Referral * Radiology Services (STAT with Interpretation) - Closed Specialty Diagnoses / Procedures Referred By Claudio remy Referred To Contact Radiology Diagnoses Cough Wheezing Procedures XR CHEST 2 VIEWS Lina Tan APRN, CNP Phone: tel: fax: Referral ID Status Reason Start Date Expiration Date Visits Re quested Visits Authorized [id number] Closed 03/16/2020 1 1 Reason for Visit * Reason Comments Cough Encounter Details Date Type Department Care Team ([facility] st Contact Info) Description 03/16/2020 12:25 PM CDT Urgent Care Visit [facility] [place] [address] [place] [phone] Lina Tan APRN, CNP [address] [place] [address] Simple chronic bronchitis (HCC) (Primary Dx); Cough; Wheezing Discharge Disposition: Discharged to home or Selfcare [...] Sign Reading Time Taken Comments Blood Pressure 120/62 03/16/2020 12:29 PM CDT Pulse 83 03/16/2020 12:29 PM CDT Temperature 36.8 ??C (98.3 ??F) 03/16/2020 12:29 PM C DT Respiratory Rate 20 03/16/2020 12:29 PM CDT Oxygen Saturation 98% 03/16/2020 12:29 PM CDT Inhaled Oxygen Concentration - - Weight 63 kg (139 lb) 03/16/2020 12:29 PM CDT Height - - Body Mass Index 25.42 10/24/2019 3:43 PM SPICE ROOM WORKER documented in this encounter Progress Notes * Georgiana Clark RN - 03/16/2020 12:25 PM CDT Irma Emory Seymour complains of Patient was eating a piece of pizza 3 days ago and felt like a piece got stuck in there throat. She felt like she was able to clear this from her throat. Since this time she has noted a productive with wheezing and shortness of breath. She has been using albuterol in her nebulizer and albuterol inhaler with slight relief. Cough Associated symptoms include shortness of breath and wheezing. The symptoms are aggravated by lying down. Risk factors for lung disease include smoking/tobacco exposure. Her past medical history is significant for asthma and bronchitis. Today's Review of Systems Respiratory: Positive for cough, shortness of breath and wheezing. * Georgiana Clark RN - 03/16/2020 12:25 PM CDT Per order of Lina Tan APN, DOUGLAS Hand held nebulizer of Duo neb given. Patient tolerated well. * Lina Tan APN, CNP - 03/16/2020 12:25 PM CDT Subjective: Chief complaint and all history documented by ancillary staff, and any copy/pasted information werereviewed and verified, with additions or corrections, as appropriate. Past family, social, medical history was reviewed Irma Seymour is a 39 y.o. female in the clinic for a cough, wheezing, and SOB. She states that the cough worsened after eating a piece of pizza a couple of days ago and had a choking fit. She states that she has been using her inhalers and neb machine with little relief. No fever reported. She has been taking an allergy medication. Review of Systems Constitutional: Negative for fever. HENT: Negative for ear pain and sore throat. Respiratory: Positive for cough, choking and wheezing. Gastrointestinal: Negative for diarrhea and vomiting. Objective: Physical Exam Vitals signs and nursing note reviewed. HENT: Right Ear: Tympanic membrane and ear canal normal. Left Ear: Tympanic membrane and ear canal normal. Nose: Nose normal. Mouth/Throat: Lips: [place]. Mouth: Mucous membranes are moist. Pharynx: Oropharynx is clear. Neck: Musculoskeletal: Normal range of motion. Cardiovascular: Rate and Rhythm: Normal rate. Pulmonary: Effort: Pulmonary effort is normal. Breath sounds: Wheezing present. Comments: Cough during exam is course Skin: General: Skin is warm and dry. Neurological: General: No focal deficit present. Mental Status: She is alert and oriented to person, place, and time. Psychiatric: Mood and Affect: Mood normal. Vitals: 03/16/20 1229 BP: 120/62 BP Location: Right Arm BP Position: Sitting BP Cuff Size: Regular Pulse: 83 Resp: 20 Temp: 98.3 ??F (36.8 ??C) TempSrc: Temporal SpO2: 98% Weight: 139 lb (63 kg) Xray was ordered and will be done at the hospital. Assessment and Plan See Diagnoses, Orders, Follow-up, and Instructions Diagnoses and all orders for this visit: Simple chronic bronchitis (HCC) - predniSONE (DELTASONE) 10 MG Tablet; Take 1 Tab by mouth daily. Take 4 tab PO daily x 2 days, 3 tab PO daily x 2 days, 2 tab PO daily x 2 day, 1 tab PO daily x 2 days. Cough - ipratropium-albuterol (DUONEB) 0.5-2.5 (3) MG/3ML Solution; 3 mL by Nebulization route once for 1dose. - ALBUTEROL IPRATROP NON-COMP - INHAL RX, AIRWAY OBST/DX SPUTUM INDUCT - XR CHEST 2 VIEWS; Future Wheezing - XR CHEST 2 VIEWS; Future Care as instructed on AVS If medication was prescribed it was sent to the pharmacy. Take all medication as prescribed. Do not skip a dose and take until completed. Follow up with PCP if the symptoms do not improve Go to the ER if symptoms become severe AVS from today was printed, discussed with patient/family and given to patient/family documented in this encounter Plan of Treatment Upcoming Encounters Date Type Department Care Team (Late st Contact Info) Description 03/21/2025 4:30 PM CDT Office Visit [facility] - [place] [address] [place] [address] Shravan Burgos, PAPI [address] [place] [address] Scheduled Orders Name Type Priority Associated Diagnoses Orde r Schedule INHAL RX, AIRWAY OBST/DX SPUTUM INDUCT Procedures Routine Cough Ordered: 03/16/2020 documented as of this encounter Results * [...] PM T: ??03/16/2020 1:53 PM Report ID: [id number] Reading Location: ??[id number] Procedure Note Rajeev Castrejon MD - 03/16/2020 EXAM DESCRIPTION: XR [...] by Rajeev Castrejon M.D., MD: Report ID: [id number] Reading Location: [id number] IMPRESSION: No radiographic evidence of an acute cardiopulmonary abnormality. Lina Tan DUSTLESS OPERATOR, MANAGER PRINTING IMG DIAGNOSTIC OR DERABLES Final Result documented in this encounter Visit Diagnoses Diagnosis Simple chronic bronchitis (HCC)- Primary Simple chronic bronchitis Cough Wheezing Cough Wheezing documented in this encounter Administered Medications Administered Medications Medication Order MAR Action Action Date Dose Rate Site DUONEB INHAL MERRY 2.5 MG / 0.5 MG Nebulizer Given 03/16/2020 3 mL Oral documented in this encounter Additional Health Concerns Assessment Noted Time PHQ-9 Depression Total Score: 0 08/17/20 19 1:00 PM CDT documented as of this encounter Care Teams [employer] Relationship Specialty Start Date End Date Amaya Kowalski, DUSTLESS OPERATOR, MANAGER PRINTING [address] [place] [address] PCP - General Advanced Practice Nurse 06/10/18 documented as of this encounter
--- OUTSIDE RECORDS SUMMARY | 2024-11-30 17:28 | XMS_ITS | Encounter Summary ---
Author Organization [facility] Address [address] [facility] [address] Phone Care Team Providers Care Mid Level Project Manager Name Role Phone Amaya Kowalski APRN, CNP Primary Care Provider Reason for Visit * Reason Comments Medication Refill Encounter Details Date Type Department Care Team (Late st Contact Info) Description 02/07/2020 [facility] [place] [facility] [address] [place] [phone] Amaya Kowalski APRN, CNP [address] [place] [address] Medication Refill Social History Tobacco [...] Encounter - Amaya Kowalski APN, CNP - 02/07/2020 4:42 PM CDT Approved * Telephone Encounter - Amaya Jackman, RN - 02/07/2020 11:40 AM CDT Requested Prescriptions Pending Prescriptions Disp [...] - Primary Care - [place] [address] [place] [phone] Shravan Burgos PAC [address] [place] [address] documented as of this encounter Visit Diagnoses Not on filedocumented in this encounter Additional Health Concerns Assessment Noted Time PHQ-9 Depression Total Score: 0 08/17/20 19 1:00 PM CDT documented as of this encounter Care Teams Mid Level Project Manager Relationship Specialty Start Date End Date Amaya Kowalski, PEWTER CASTER, RESIDENTIAL COUNSELOR [address] [place] [address] PCP - General Advanced Practice Nurse 06/10/18 documented as of this encounter
--- OUTSIDE RECORDS SUMMARY | 2024-11-30 17:28 | XMS_ITS | Encounter Summary ---
Author Organization [facility] Address [address] [facility] [address] [facility] [address] Phone Care Team Providers Care Second Facing Baster Name Role Phone Amaya Kowalski APRN, CNP Primary Care Provider Reason for Visit * Reason Comments Medication Refill Encounter Details Date Type Department Care Team (Late st Contact Info) Description 12/02/[facility] [address] [place] [phone] Amaya Kowalski APRN, CNP [address] [place] [address] Medication Refill Social History Tobacco [...] Encounter - Amaya Kowalski APN, CNP - 12/04/2019 11:33 AM RUBBISH COLLECTION SUPERVISOR Approved ISH COLLECTION SUPERVISOR * Telephone Encounter - Amaya Jackman, RN - 12/04/2019 11:05 AM RUBBISH COLLECTION SUPERVISOR Requested Prescriptions Pending Prescriptions Disp Refills LORazepam (ATIVAN) 1 MG Tablet [Pharmacy Med Name: LORAZEPAM 1 MG TABLET] 30 Tab 0 Sig: TAKE 1 TABLET BY MOUTH THREE TIMES A DAY NEEDED FOR ANXIETY There is no refill protocol information for this order ISH COLLECTION SUPERVISOR documented in this encounter Plan of Treatment Upcoming Encounters Date Type Department Care Team (Late st Contact Info) Description 03/21/2025 4:30 PM CDT Office Visit [facility] - [place] [address] [place] [address] Shravan Burgos PAC [address] [place] [address] documented as of this encounter Visit Diagnoses Not on filedocumented in this encounter Additional Health Concerns Assessment Noted Time PHQ-9 Depression Total Score: 0 08/17/20 19 1:00 PM CDT documented as of this encounter Care Teams Second Facing Baster Relationship Specialty Start Date End Date Amaya Kowalski, MILK TRUCK DRIVER, OLD TESTAMENT PROFESSOR [address] [place] [address] PCP - General Advanced Practice Nurse 06/10/18 documented as of this encounter
--- OUTSIDE RECORDS SUMMARY | 2024-11-30 17:28 | XMS_ITS | Encounter Summary ---
Author Organization [facility] Care Team Providers Care Java Lead Engineer Name Role Phone Amaya Kowalski APRN, OIL PLANT OPERATOR Primary Care Provider Encounter Details Date Type Department Care Team (Latest Contact Info) Description 03/16/2020 Travel Social History Tobacco Use Types Packs/Day [...] Medical Group - Primary Care - [place] [address] [place] [address] Shravan Burgos PAC [address] [place] [address] documented as of this encounter Visit Diagnoses Not on filedocumented in this encounter Additional Health Concerns Assessment Noted Time PHQ-9 Depression Total Score: 0 08/17/20 19 1:00 PM CDT documented as of this encounter Care Teams Java Lead Engineer Relationship Specialty Start Date End Date Amaya Kowalski, SALES REPRESENTATIVE DOOR TO DOOR, OIL PLANT OPERATOR [address] [place] [address] PCP - General Advanced Practice Nurse 06/10/18 documented as of this encounter
--- OUTSIDE RECORDS SUMMARY | 2024-11-30 17:28 | XMS_ITS | Encounter Summary ---
Author Organization [facility] Address [address] [facility] [place] [address] Phone Care Team Providers Care Real Estate Legal Assistant Name Role Phone Amaya Kowalski APRN, CNP Primary Care Provider Reason for Visit * Reason Comments Medication Refill Encounter Details Date Type Department Care Team (Late st Contact Info) Description 01/01/2020 [facility] [place] [address] [place] [phone] Amaya Kowalski, MEGAN, RADIOLOGICAL METALLURGIST [address] [place] [address] Medication Refill Social History Tobacco [...] Miscellaneous Notes * Telephone Encounter - Amaya Jackman, RN - 01/01/2020 12:19 PM FILLING MACHINE TENDER Requested Prescriptions Pending Prescriptions Disp Refills LORazepam (ATIVAN) 1 MG Tablet [Pharmacy Med Name: LORAZEPAM 1 MG TABLET] 30 Tab 0 Sig: TAKE 1 TABLET BY MOUTH THREE TIMES A DAY NEEDED FOR ANXIETY There is no refill protocol information for this order ING MACHINE TENDER documented in this encounter Plan of Treatment Upcoming Encounters Date Type Department Care Team (Late st Contact Info) Description 03/21/2025 4:30 PM CDT [facility] - [place] [address] [place] [address] Shravan Burgos PAC [address] [place] [address] documented as of this encounter Visit Diagnoses Not on filedocumented in this encounter Additional Health Concerns Assessment Noted Time PHQ-9 Depression Total Score: 0 08/17/20 19 1:00 PM CDT documented as of this encounter Care Teams Real Estate Legal Assistant Relationship Specialty Start Date End Date Amaya Kowalski, SWEET GOODS MACHINE OPERATOR, RADIOLOGICAL METALLURGIST [address] [place] [address] PCP - General Advanced Practice Nurse 06/10/18 documented as of this encounter
--- OUTSIDE RECORDS SUMMARY | 2024-11-30 17:28 | XMS_ITS | Encounter Summary ---
Author Organization [facility] Address [address] [place] [address] Phone Care Team Providers Care Mobile Manager Name Role Phone Amaya Kowalski APRN, OCEAN FREIGHT FORWARDER Primary Care Provider Reason for Visit * Reason Onset Date Comments Wheezing 03/16/2020 Cough 03/16/2020 Shortness of Breath 03/16/2020 Encounter Details Date Type Department Care Team (Late st Contact Info) Description 03/16/2020 Nurse Triage [facility] [address] [place] [address] Amaya Kowalski, MEGAN, OCEAN FREIGHT FORWARDER [address] [place] [address] Wheezing; Cough; Shortness of Breath Social History Tobacco Use Types Packs/Day Years [...] Coronavirus / COVID-19? No / Unsure 03/16/2020 10:53 AM CDT documented as of this encounter Miscellaneous Notes * Telephone Encounter - Marquita Kyle RN - 03/16/2020 11:01 AM CDT SITUATION (caller perception/concerns): Wheezing, cough and shortness of breath. HISTORY: Smoker, chronic bronchitis. BACKGROUND (events leading up to call): Negative covid screen. 3 days ago was eating pizza and had a piece caught in her throat, not sure if she inhaled some food. Has been coughing ever since. ASSESSMENT: Vomited last night since she was coughing so hard. Has congested harsh cough with mild wheezing. Denies fever. Using nebulizer which doesn't really help. Denies fever or struggling for breath. RECOMMENDATION: Advised to see a provider in 4 hours. States she will go to the [facility] care in [place]. See care advice and disposition for guideline. First positive answer recorded; all responses to prior questions were negative. If symptoms increase, change, or if new symptoms develop, call your PCP or call back. Recommendation based on caller information and is not a diagnosis. Verified and reviewed all triage information with caller. Caller verbalized understanding of information given and denies further questions. Teach-back method utilized. Reason for Disposition ??? [1] Continuous (nonstop) coughing AND [2] keeps from working or sleeping Protocols used: BREATHING [id number] documented in this encounter Plan of Treatment Upcoming Encounters Date Type Department Care Team (Late st Contact Info) Description 03/21/2025 4:30 PM CDT Office Visit [facility] - Primary Care - [place] [address] [place] [address] Shravan Burgos PAC [address] [place] [address] documented as of this encounter Visit Diagnoses Not on filedocumented in this encounter Additional Health Concerns Assessment Noted Time PHQ-9 Depression Total Score: 0 08/17/20 19 1:00 PM CDT documented as of this encounter Care Teams Mobile Manager Relationship Specialty Start Date End Date Amaya Kowalski, MERCHANDISE CLERK, OCEAN FREIGHT FORWARDER [address] [place] [address] PCP - General Advanced Practice Nurse 06/10/18 documented as of this encounter
--- OUTSIDE RECORDS SUMMARY | 2024-11-30 17:28 | XMS_ITS | Encounter Summary ---
Author Organization [facility] Care Team Providers Care Sterile Processing Technologist Name Role Phone Amaya Kowalski APRN, COMMUNICABLE DISEASE SPECIALIST Primary Care Provider Encounter Details Date Type Department Care Team (Latest Contact Info) Description 04/05/2020 Travel Social History Tobacco Use Types Packs/Day [...] Medical Group - Primary Care - [place] [address] [place] [address] Shravan Burgos PAC [address] [place] [address] documented as of this encounter Visit Diagnoses Not on filedocumented in this encounter Additional Health Concerns Assessment Noted Time PHQ-9 Depression Total Score: 9 04/05/20 20 9:22 AM CDT documented as of this encounter Care Teams Sterile Processing Technologist Relationship Specialty Start Date End Date Amaya Kowalski, FISHERIES OFFICER, COMMUNICABLE DISEASE SPECIALIST [address] [place] [address] PCP - General Advanced Practice Nurse 06/10/18 documented as of this encounter
--- OUTSIDE RECORDS SUMMARY | 2024-11-30 17:35 | XMS_ITS | Clinical Summary ---
Author Organization [facility] Address [address] [place] [address] Care Team Providers Care Retail Sales Assistant Name Role Phone Amaya Kowalski NP Primary Care Provider [phone] Allergies Active Allergy Reactions Criticality Noted Date Comments Doxycycline Rash Medium 06/01/2018 Sulfamethoxazole-Trimethoprim Rash Medium 2017 Medications busPIRone (BUSPAR) 7.5 mg tablet TAKE 1 TABLET BY ORAL ROUTE 2 TIMES EVERY DAY 60 tablet 1 8 Active Additional Information Patient not taking.Reported on 09/25/2020 LORazepam (ATIVAN) 1 mg tablet TAKE 1 TABLET BY MOUTH TWICE A DAY NEEDED FOR ANXIETY 60 tablet 3 8 Active venlafaxine XR (EFFEXOR-XR) 37.5 mg 24 hr capsule TAKE 1 CAPSULE BY MOUTH EVERY DAY 0 Active ibuprofen (ibuprofen) 200 mg tab/cap Take 600 mg by mouth every 6 (six) hours as needed 9 Active albuterol HFA (PROVENTIL HFA,VENTOLIN HFA,PROAIR HFA) 90 mcg/actuation inhaler INHALE 1-2 PUFFS BY INHALATION EVERY 4 HOURS NEEDED FOR WHEEZING OR COUGH 0 Active azithromycin (ZITHROMAX) 250 mg tablet 2 tab(s) daily for 1 day, then 1 tab(s) daily for days 2-5. 0 Active benzonatate (TESSALON) 200 mg capsule TAKE 1 CAPSULE BY MOUTH THREE TIMES A DAY NEEDED FOR COUGH FOR UP TO 10 DAYS 0 Active budesonide-form oteroL (SYMBICORT) 160-4.5 mcg/actuation inhaler Inhale 2 puffs 2 (two) times a day 0 Active guaiFENesin-cod eine (GUAITUSS AC) liquid 100-10 mg/5 mL Take 5 mL by mouth every 4 (four) hours as needed 0 Active Active Problems Problem Noted Date Diagnosed Date Leukocytosis 12/24/2019 Chronic bronchitis 03/09/2019 Lung infiltrate 03/09/2019 Tobacco use disorder 03/09/2019 BMI 26.0-26.9,adult 09/01/2017 Assessment & Plan (09/01/2017 9:23 AM CDT): Recommended patient to continue to increase heart healthy diet with adequate fruits, vegetables, and plenty of water along with mild-moderate daily exercise as tolerated. Insect bite of left leg 09/01/2017 Assessment & Plan (09/01/2017 9:36 AM CDT): Covering patient for bacterial spider bite with Bactrim DS 1 tab b.i.d. times 10 days I advised her also to keep area clean and dry with Dial soap washing it once daily or certainly when soiled along with promoting drainage with a warm compress. Certainly will see her here in a week to see if there is improvement in symptoms and certainly will see her here sooner there is any concern regarding improvement symptoms. Patient was advised to continue to monitor for any fevers or chills as we should have any after 24 hours antibiotics. Certainly will see her in a week or sooner as needed Anxiety 05/11/2017 Assessment & Plan (10/29/2017 12:22 PM ALL AROUND GEAR MACHINE OPERATOR): Anxiety disorder does not seem to be [...] is no improvement we will consult Psychiatry. Assessment & Plan (05/11/2017 4:49 PM CDT): Anxiety disorder is well controlled on current treatment regimen. Prescription was refilled. She will continue medications as previously prescribed. Paperwork was completed for DMV. Copy was made to be scanned into electronic medical record. Original was handed back to the patient. She offered no further complaints and was in agreement with the plan of care. Will see her back here on a routine basis certainly sooner if indicated. Immunizations Name Administration Dates Next Due Hep B Vaccine 08/27/2014,07/25/2014 Influenza, Quadrivalent, Split, Intramuscular Influenza, Quadrivalent, Spl it, Preservative Free, Intramuscular 11/26/2017 Surgical History Surgery Date Site/Laterality Comments OTHER SURGICAL HISTORY 2014 pleurasy: Medical Management Medical History Medical History Date Comments Pleurisy Scoliosis Per pt. Family History Medical History Relation Name Comments Hypertension Father Hypertension; Relation Name Status Comments Father Social History Tobacco Use Types Packs/Day Years Used Date Smoking Tobacco: Some Days Smokeless Tobacco: Never Tobacco Cessation:Ready to Q uit: No; Counseling Given: Yes Alcohol Use Standard Drinks/Week Comments Yes 0 (1 standard drink = 0.6 oz pur e alcohol) Personal Safety Answer Date Recorded Getting School Help Needed Not on file 12/13 Comments No Sex and Gender Information Value Date Recorded Sex Assigned at Not on file Legal Sex Female 3:28 AM ALL AROUND GEAR MACHINE OPERATOR Gender Identity Not on file Sexual Orientation Not on file Obstetrics History Last Filed Vital Signs Vital Sign Reading Time Taken Comments Blood Pressure 122/86 09/25/2020 10:30 AM CDT Pulse 79 05/29/2018 4:56 PM CDT Temperature 36.3 ??C (97.3 ??F) 09/25/2020 10:30 AM C DT Respiratory Rate 20 05/29/2018 4:56 PM CDT Oxygen Saturation 100% 05/29/2018 5:00 PM CDT Inhaled Oxygen Concentration - - Weight 62.6 kg (138 lb) 09/25/2020 10:30 AM CDT Height 160 cm (5' 3 ) 09/25/2020 10:30 AM CDT Body Mass Index 24.45 09/25/2020 10:30 AM CDT Plan of Treatment Not on file Insurance Care Teams Retail Sales Assistant Relationship Specialty Start Date End Date Amaya Kowalski NP PCP - General Nurse Practitioner 09/25/20
--- OUTSIDE RECORDS SUMMARY | 2024-11-30 17:35 | XMS_ITS | Referral Summary ---
Author Organization [facility] Address [address] [place] [address] Care Team Providers Care Hangersmith Name Role Phone Amaya Kowalski NP Primary Care Provider [phone] Allergies Active Allergy Reactions Criticality Noted Date [...] 05/11/2017 Assessment & Plan (10/29/2017 12:22 PM DIRECTOR MEDICARE SALES): Anxiety disorder does not seem to be [...] Quadrivalent, Spl it, Preservative Free, Intramuscular 11/26/2017 Social History Tobacco Use Types Packs/Day Years [...] on file Legal Sex Female 3:28 AM DIRECTOR MEDICARE SALES Gender Identity Not on file Sexual Orientation [...] Plan of Treatment Not on file Insurance [facility] Address: [facility] [id number] [place] [phone] [facility] H[facility]/PPO Address: [facility] [address] [place] [address] Care Teams Hangersmith Relationship Specialty Start Date End Date Amaya Kowalski NP PCP - General Nurse Practitioner 09/25/20
--- OUTSIDE RECORDS SUMMARY | 2024-11-30 17:36 | XMS_ITS | Encounter Summary ---
Author Organization [facility] Medical Group Address [address] [place] [address] Care Team Providers Care [employer] Construction Supervisor Name Role Phone Amaya Kowalski GRAPHICS SOFTWARE ENGINEER Primary Care Provider [phone] [phone] Encounter Details Date Type Department Care Team (Late st Contact Info) Description 04/27/2023 Telephone [facility] Medical [facility] Primary Care at [address] [place] [address] Melonie Colin GRAPHICS SOFTWARE ENGINEER [address] [place] [address] Social History Tobacco Use Types Packs/Day Years Used Date Smoking Tobacco: Some Days Smokeless Tobacco: Never Alcohol Use Standard Drinks/Week Comments Yes 0 (1 standard drink = 0.6 oz pur e alcohol) Comments No Sex and Gender Information Value Date Recorded Sex Assigned at Not on file Legal Sex Female 3:28 AM INSURANCE LAW SPECIALIST Gender Identity Not on file Sexual Orientation Not on file documented as of this encounter Miscellaneous Notes * Telephone Encounter - Susana Crocker - 04/30/2023 8:17 AM CDT No response after 2 calls to reschedule new patient appt, pt responsible to c/b and r/s. adb * Telephone Encounter - Susana Crocker - 04/29/2023 10:13 AM CDT 04/29/23-left message on machine. adb * Telephone Encounter - Susana Crocker - 04/28/2023 2:01 PM CDT 04/28/23-left message on machine. adb * Telephone Encounter - Gerri Whiteside MA - 04/27/2023 2:15 PM CDT Appointment No Show Appt date/time:04/27/23 2:00PM Reason for appt: Establish Care Reason for cxl: unknown NOV: not scheduled AYSHA: NA # of cxl or no shows in last year: 1 Controlled Rx: Lorazepam Per Melonie Colin, pt is to establish care with a different provider in office since this is her second time no showing her appointment documented in this encounter Plan of Treatment Not on file documented as of this encounter Visit Diagnoses Not on filedocumented in this encounter Care Teams [employer] Construction Supervisor Relationship Specialty Start Date End Date Amaya Kowalski NP PCP - General Nurse Practitioner 09/25/20 documented as of this encounter
--- OUTSIDE RECORDS SUMMARY | 2024-11-30 17:36 | XMS_ITS | Encounter Summary ---
Author Organization [facility] Healthcare Address [address] [place] [address] Care Team Providers Care Emergency Medical Technician/Driver Name Role Phone Amaya Kowalski INSULATION ESTIMATOR Primary Care Provider [phone] Reason for Visit * Reason Comments PT Treatment Encounter Details Date Type Department Care Team (Late st Contact Info) Description 12/23/2020 4:45 PM SPREADER BOX OPERATOR Therapy [facility] Physical Therapy [address] [facility] [place] [address] Marquita Vines, BLADDER CLEANER Low back pain, unspecified back pain laterality, unspecified chronicity, unspecified whether sciatica present (Primary Dx) Social History Tobacco Use Types Packs/Day Years Used Date Smoking Tobacco: Some Days Smokeless Tobacco: Never Alcohol Use Standard Drinks/Week Comments Yes 0 (1 standard drink = 0.6 oz pur e alcohol) Comments No Sex and Gender Information Value Date Recorded Sex Assigned at Not on file Legal Sex Female 3:28 AM SPREADER BOX OPERATOR Gender Identity Not on file Sexual Orientation Not on file documented as of this encounter Progress Notes * Marquita Vines, BLADDER CLEANER - 12/23/2020 4:45 PM CST PT Daily Treatment Note Irma Seymour 1980 Subjective: Pt states she was pretty sore from last week PT. Pain: 3/10 neck and R side of back Objective: see treatment provided Treatment Provided: Power plate heel up and mini squats 2 x 30 sec each Blue theraband rowing x 20 Green theraband IR x 20 Green theraband B horizontal ab x 20 B ER w/green theraband x 20 Cable pull downs, 80# x 20 Cable rows, 80# x 20 Alt UE/LE in quadruped x 10 B HS stretch x 3 B piriformis stretch x 3 Cat/camel stretch x 10 Alt UE in quadruped x 10* Hot Pack x 10 min seated Supine HS stretch x 4 B Piriformis stretch x 4 Right sidelying stretch over wedge -L sidelying crunches x 15 *(not performed this visit) Nustep, L5 x 6 min Hips to heel stretch x 10, R and L * LTR x 10* Bridges x 20 w/feet on SB* SL bridges x 10* Thoracic foam roller stretch x 5* If this is the last visit, consider this a discharge summary. Progress to: Prone scap ex Core strengthening-bridges, single leg bridge, planks Assessment: Pt tolerates exercises w/minimal c/o pain. Stretching left side and strengthening rightwas tolerated well Plan: Cont POC and progress as able. Continue L side stretching R side strengthening. More stretching and core exercises next visit. Start Time: 1650 End Time: 1730 MT Martino PTA ADER BOX OPERATOR documented in this encounter Plan of Treatment Not on file documented as of this encounter Visit Diagnoses Diagnosis Low back pain, unspecified back pain laterality, unspecified chronicity, unspecified whether sciatica present- Primary documented in this encounter Care Teams Emergency Medical Technician/Driver Relationship Specialty Start Date End Date Amaya Kowalski NP PCP - General Nurse Practitioner 09/25/20 documented as of this encounter
--- OUTSIDE RECORDS SUMMARY | 2024-11-30 17:36 | XMS_ITS | Encounter Summary ---
Author Organization [facility] Medical Group Address [address] [place] [address] Care Team Providers Care Multicut Line Operator Name Role Phone Amaya Kowalski INTEGRATION AIDE Primary Care Provider [phone] Reason for Visit * Reason Onset Date Comments Covid-19 Home Monitoring 06/30/2021 Non Res ponder Encounter Details Date Type Department Care Team (Late st Contact Info) Description 06/30/2021 Telephone [facility] Accountable Care Organization [address] [place] [address] Cheryl Turner MA [address] [place] [id number] Covid-19 Home Monitoring (Non Responder) Social History Tobacco Use Types Packs/Day Years Used Date Smoking Tobacco: Some Days Smokeless Tobacco: Never Alcohol Use Standard Drinks/Week Comments Yes 0 (1 standard drink = 0.6 oz pur e alcohol) Comments No Sex and Gender Information Value Date Recorded Sex Assigned at Not on file Legal Sex Female 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 Telephonic outreach attempted to assess patient???s symptoms. Home Monitoring symptom questionnaire was not completed today, pt stated she will do it now Symptom Questionnaire to be completed by patient tomorrow. documented in this encounter Plan of Treatment Not on file documented as of this encounter Visit Diagnoses Not on filedocumented in this encounter Additional Health Concerns Infection Onset Date Last Indicated Resolved Time COVID19 06/26/2021 06/26/2021 07/10/2021 3:05 AM CDT documented as of this encounter Care Teams Multicut Line Operator Relationship Specialty Start Date End Date Amaya Kowalski NP PCP - General Nurse Practitioner 09/25/20 documented as of this encounter
--- OUTSIDE RECORDS SUMMARY | 2024-11-30 17:36 | XMS_ITS | Encounter Summary ---
Author Organization [facility] Healthcare Address [address] [place] [address] Care Team Providers Care Baccarat Dealer Name Role Phone Amaya Kowalski OCCUPATIONAL WORK EXPERIENCE TEACHER Primary Care Provider [phone] Reason for Visit * Reason Comments PT Treatment Encounter Details Date Type Department Care Team (Late st Contact Info) Description 11/25/2020 4:00 PM APPLIANCE REPAIRER Therapy [facility] Physical Therapy [address] Rehabilitation [facility] [place] [address] Elza Tsai, PT Low back pain, unspecified back pain laterality, [...] on file Legal Sex Female 3:28 AM APPLIANCE REPAIRER Gender Identity Not on file Sexual Orientation Not on file documented as of this encounter Progress Notes * Elza Tsai, PT - 11/25/2020 4:00 PM CST PT Daily Treatment Note Irma Seymour 1980 Subjective: Pt reports her back pain has been on and off. She reports the most pain w/bending forward. Pain: 0/10 at rest, LB Objective: see treatment provided Treatment Provided: Nustep, L5 x 6 min Seated HS stretch x 4 Piriformis stretch x 4 Horizontal abd, palms up and palms down, green tb x 20 ea. B ER, green tb x 20 B sh ext, blue tb x 20 B rows, blue tb x 20 Alt UE in quadruped x 10 Alt UE/LE in quadruped x 10 Cat/camel stretch x 10 Hips to heel stretch x 5, R and L Planks 2 x 30 sec LTR x 10 Bridges x 20 SL bridges x 10 Thoracic foam roller stretch x 10 MHP to LB Progress to: Prone scap ex Core strengthening-bridges, single leg bridge, planks Assessment: pt had no c/o pain w/any of the exercises. Claudia very well. Plan: Cont POC and progress as able. Start Time: 1600 End Time: 1654 Elza Tsai PT IANCE REPAIRER documented in this encounter Plan of Treatment Not on file documented as of this encounter Visit Diagnoses Diagnosis Low back pain, unspecified back pain laterality, unspecified chronicity, unspecified whether sciatica present- Primary documented in this encounter Care Teams Baccarat Dealer Relationship Specialty Start Date End Date Amaya Kowalski NP PCP - General Nurse Practitioner 09/25/20 documented as of this encounter
--- OUTSIDE RECORDS SUMMARY | 2024-11-30 17:36 | XMS_ITS | Encounter Summary ---
Author Organization [facility] Healthcare Address [address] [place] [address] Care Team Providers Care Brick Shader Name Role Phone Amaya Kowalski SLEEP TECH Primary Care Provider [phone] Encounter Details Date Type Department Care Team (Late st Contact Info) Description 06/26/2021 Telephone [facility] [address] [place] [address] Room 3420 (Third Floor) [place] [address] Eva Au RN Social History Tobacco Use Types Packs/Day Years Used Date Smoking Tobacco: Some Days Smokeless Tobacco: Never Alcohol Use Standard Drinks/Week Comments Yes 0 (1 standard drink = 0.6 oz pur e alcohol) Comments No Sex and Gender Information Value Date Recorded Sex Assigned at Not on file Legal Sex Female 3:28 AM DAMPER 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 * Telephone Encounter - Eva Au RN - 06/26/2021 9:42 AM CDT Employee COVID-19 Screening 06/26/2021 Vaccine related call? No Employee/Student ID# [id number] Are you an employee or student? 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 On-site Have you been tested for Covid-19 previously? Yes Have you ever had a positive COVID-19 swab or saliva test? No What was the date of your most recent negative test? 12/05/2020 Have you been vaccinated against COVID-19? No Have you had a known, specific COVID exposure within the last 14 days? No Employee Symptoms: Yes Date of employee symptom onset: 06/26/2021 Description of Symptoms: Loss of Taste;Loss of Smell;Cough;Muscle Aches;Other Other Symptoms: headache Did you have symptoms at work? Yes Date last worked: 06/26/2021 Do you currently live with, or have ongoing contact with, someone known or suspected to have COVID-19? Yes Exposure Risk (See Exposure Guide): Ongoing household contact Assessment: Household contact of known/suspect case Plan: (A) Stay home and test for symptoms Testing Site Location: [facility] Script A2 (Stay home and test) for symptomatic HCW with ongoing household exposure and Unvaccinated Given your symptoms, you should not come to work and will be referred for testing. ??? Please go to the employee testing site at . ??? You will be tested for COVID-19 ??? While you are awaiting testing and results, you must remain off work. ??? While waiting for results, home quarantine guidance still applies. You should isolate yourself at home, avoid contact with any household members as much as possible, and stay in your home withoutleaving except for medical care. If your symptoms worsen, please call back or call 911 - let your providers, ER or EMS know that you are being tested for COVID-19. ??? Once your results are back, you will receive further instruction from Occupational Health. Don't return to work until you hear from [facility]. Occupational Health will notify you and your business area manager when you can return to work. ??? Should your test result positive, [facility] will work with you to identify any close contacts you may have had at work. [facility] will then alert your work contacts directly; you do not have to. Your supervisor laboratory animal facility should consult with [facility] if they have any questions and before any communication with coworkers about a positive test. [facility] will help ensure that coworkers potentially at risk are notified and given appropriate advice without unnecessary disclosure of personal health information. ??? We will send you an email with self-quarantine instructions (see [facility] Guidance for At-Home Isolation: Employees). ??? You must follow any additional isolation or quarantine instructions provided to you from federal, state or local public health authorities. ??? You should let your supervisor laboratory animal facility know that you will not be coming to work. Although the Call Center will email your supervisor laboratory animal facility to confirm that you have been instructed not to come to work, it is still your responsibility to notify your supervisor laboratory animal facility as you would for any other work absence. You should receive an email from the call center with these instructions. The email will come from [email or web address]; if you do not receive it, please check to see if your email artillery or naval gunfire observer has automatically routed it to [facility]. documented in this encounter Plan of Treatment Not on file documented as of this encounter Results * (ABNORMAL) COVID-19 Coronavirus RNA Nasopharyngeal (06/26/2021 10:48 AM CDT) COVID-19 RNA Positive(A ) Negative [place] Comment: Interpretive data: Synonyms for this test include: PCR and NAAT . ??This test is performed using the [employer] Xpert Xpress assay. This is a real-time RT-PCR test intended for the qualitative detection of nucleic acid from the SARS-CoV-2. This assay has been reviewed by the FDA for Emergency Use Authorization (EUA). The performance characteristics have been verified by the performing laboratory. Results must be considered in the clinical context and a negative result does not rule out infection. Interpretive data last revised January 02, 2021. First COVID-19 test? No [facility] Employeed in healthcare? Yes [facility] status? Unknown [facility] Group care resident? Unknown [facility] Hospitalized? No [facility] Is patient in ICU? No [facility] Symptomatic as defined by CDC? Yes [facility] Nasopharyngeal 06/26/2021 10 :48 AM CDT 06/26/2021 3:00 PM CDT Narrative [facility] - 06/26/2021 4:12 PM CDT Patient is employed by/enrolled at:->[facility] What is the reason for testing?->Symptoms of COVID-19 in high-risk group Date of Symptom Onset->06/26/21 us Christi Henry MD LAB MICROBIOLOGY - GENERAL ORDERABLES Final Result [facility] [id number] [address] Department [place] [address] documented in this encounter Visit Diagnoses Diagnosis Loss of taste- Primary Disturbances of sensation of smell and taste Loss of taste Disturbances of sensation of smell and taste documented in this encounter Additional Health Concerns Infection Onset Date Last Indicated Resolved Time COVID: Suspected 06/26/2021 06/26/2021 06/26/2021 4:12 PM CDT documented as of this encounter Care Teams Brick Shader Relationship Specialty Start Date End Date Amaya Kowalski NP PCP - General Nurse Practitioner 09/25/20 documented as of this encounter
--- OUTSIDE RECORDS SUMMARY | 2024-11-30 17:36 | XMS_ITS | Encounter Summary ---
Author Organization [facility] Healthcare Address [address] [place] [address] Care Team Providers Care Chiropractic Neurologist Name Role Phone Amaya Kowalski EXPRESSIVE ART THERAPIST Primary Care Provider [phone] Encounter Details Date Type Department Care Team (Late st Contact Info) Description 07/29/2021 Telephone [facility] Occupatiuonal Health [address] [place] [address] Room 3420 (Third Floor) [place] [address] Citlali Kowalski February Social History Tobacco Use Types Packs/Day Years Used Date Smoking Tobacco: Some Days Smokeless Tobacco: Never Alcohol Use Standard Drinks/Week Comments Yes 0 (1 standard drink = 0.6 oz pur e alcohol) Comments No Sex and Gender Information Value Date Recorded Sex Assigned at Not on file Legal Sex Female 3:28 AM TROUBLE DISPATCHER Gender Identity Not on file Sexual Orientation Not on file documented as of this encounter Miscellaneous Notes * Telephone Encounter - Citlali Kowalski - 07/29/2021 11:59 AM CDT COVID19 test order placed. Asymptomatic. Public health required testing due to exposure. documented in this encounter Plan of Treatment Not on file documented as of this encounter Visit Diagnoses Diagnosis At increased risk of exposure to COVID-19 virus- Primary documented in this encounter Additional Health Concerns Infection Onset Date Last Indicated Resolved Time COVID: Recovered Comment:Added based on recent COVID infection. 07/10/2021 07/10/2021 11/07/2021 3:[address] documented as of this encounter Care Teams Chiropractic Neurologist Relationship Specialty Start Date End Date Amaya Kowalski NP PCP - General Nurse Practitioner 09/25/20 documented as of this encounter
--- OUTSIDE RECORDS SUMMARY | 2024-11-30 17:36 | XMS_ITS | Encounter Summary ---
Author Organization [facility] Address [address] [place] [address] Care Team Providers Care Fusion Analyst Name Role Phone Amaya Kowalski PRIMING MACHINE OPERATOR Primary Care Provider [phone] [phone] Reason for Referral * Diagnostic Imaging (Routine) - Closed Specialty Diagnoses / Procedures Referred By Contac t Referred To Contact Diagnoses Lumbar pain Procedures XR Spine Lumbar 2 or 3 Views Amaya Kowalski NP [address] [place] [address] Phone: tel: fax: [address] [phone] Referral ID Status Reason Start Date Expiration Date Visits Re quested Visits Authorized [id number] Closed 08/11/2021 09/10/2022 1 1 Reason for Visit * Diagnostic Imaging (Routine) - Closed Specialty Diagnoses / Procedures Referred By Contac t Referred To Contact Diagnoses Lumbar pain Procedures XR Spine Lumbar 2 or 3 Views Amaya Kowalski, MONICA [address] [place] [address] Phone: tel: fax: [address] [phone] Referral ID Status Reason Start Date Expiration Date Visits Re quested Visits Authorized [id number] Closed 08/11/2021 09/10/2022 1 1 Encounter Details Date Type Department Care Team (Latest Contact Info) Description 08/11/2021 2:31 PM CDT - 08/11/2021 11:59 PM CDT Hospital Encounter [facility] [address] [place] [address] Amaya Kowalski, PRIMING MACHINE OPERATOR [address] [place] [address] Lumbar pain Discharge Disposition: Discharge to home or self care Social History Tobacco Use Types Packs/Day Years Used Date Smoking Tobacco: Some Days Smokeless Tobacco: Never Alcohol Use Standard Drinks/Week Comments Yes 0 (1 standard drink = 0.6 oz pur e alcohol) Comments No Sex and Gender Information Value Date Recorded Sex Assigned at Not on file Legal Sex Female 3:28 AM CABIN FURNISHINGS INSTALLER Gender Identity Not on file Sexual Orientation Not on file documented as of this encounter Medications at Time of Discharge albuterol HFA (PROVENTIL HFA,VENTOLIN HFA,PROAIR HFA) 90 mcg/actuation inhaler INHALE 1-2 PUFFS BY INHALATION EVERY 4 HOURS NEEDED FOR WHEEZING OR COUGH 10/23/2020 azithromycin (ZITHROMAX) 250 mg tablet 2 tab(s) daily for 1 day, then 1 tab(s) daily for days 2-5. 10/15/2020 benzonatate (TESSALON) 200 mg capsule TAKE 1 CAPSULE BY MOUTH THREE TIMES A DAY NEEDED FOR COUGH FOR UP TO 10 DAYS 10/11/2020 budesonide-formo teroL (SYMBICORT) 160-4.5 mcg/actuation inhaler Inhale 2 puffs 2 (two) times a day 10/15/2020 busPIRone (BUSPAR) 7.5 mg tablet TAKE 1 TABLET BY ORAL ROUTE 2 TIMES EVERY DAY 60 tablet 1 01/24/2018 guaiFENesin-code ine (GUAITUSS AC) liquid 100-10 mg/5 mL Take 5 mL by mouth every 4 (four) hours as needed 10/15/2020 ibuprofen (ibuprofen) 200 mg tab/cap Take 600 mg by mouth every 6 (six) hours as needed 12/26/2018 LORazepam (ATIVAN) 1 mg tablet TAKE 1 TABLET BY MOUTH TWICE A DAY NEEDED FOR ANXIETY 60 tablet 3 05/30/2018 venlafaxine XR (EFFEXOR-XR) 37.5 mg 24 hr capsule TAKE 1 CAPSULE BY MOUTH EVERY DAY 07/01/2020 documented as of this encounter Discharge Disposition Disposition Code Departure Means Destination Discharge to home or self care documented in this encounter Plan of Treatment Not on file documented as of this encounter Procedures Procedure Name Priority Date/Time Associated Diagnosis Comments XR SPINE LUMBAR 2 OR 3 VIEWS Schedule Routine, Read Routine (OP Routine) 08/11/2021 2:45 PM CDT Lumbar pain documented in this encounter Results * XR Spine Lumbar 2 or 3 Views (08/11/2021 2:45 PM CDT) Anatomical Region Laterality Modality Spine N/A Computed Radiogr aphy 08/11/2021 2:50 PM CDT Narrative 08/11/2021 2:52 PM CDT EXAM DESCRIPTION: ?? XR SPINE LUMBAR 2 OR 3 VIEWS REASON FOR STUDY: ?? M54.5 ??Pt states bent over felt pop in the lower back x 1 week ??Lower back pain x 1 week ?? Back spasms ?? No hx of surgery ?? TECHNIQUE: ?? 3 radiographic views acquired of the lumbar spine. COMPARISON: ?? None FINDINGS: There is no definite evidence of acute fracture or subluxation involving the lumbar spine. ??There is a levoscoliotic curvature lumbar spine centered at L3-L4. ??There are multilevel degenerative changes lumbar spine with mild disc space narrowing, endplate osteophytosis, and facet arthropathy. ??There are mild degenerative changes of the bilateral sacroiliac joints with mild joint space narrowing and minimal sclerosis. ??There is an intrauterine device noted overlying the pelvis. IMPRESSION: ?? 1. ??Lumbar levoscoliosis with multilevel spondylosis. ??No definite evidence of acute fracture or subluxation. THIS IS AN ELECTRONICALLY VERIFIED FINAL REPORT 08/11/2021 2:52 PM - Electronically signed by Raissa Raza D.O. PS: PS D: ??08/11/2021 2:52 PM T: ??08/11/2021 2:52 PM Report ID: [id number] Reading Location: ??[id number] Procedure Note Raissa Raza DO - 08/11/2021 EXAM DESCRIPTION: XR SPINE LUMBAR 2 OR 3 VIEWS REASON FOR STUDY: M54.5 Pt states bent over felt pop in the lower backx 1 week Lower back pain x 1 week Back spasms No hx of surgery TECHNIQUE: 3 radiographic views acquired of the lumbar spine. COMPARISON: None FINDINGS: There is no definite evidence of acute fracture or subluxation involvingthe lumbar spine. There is a levoscoliotic curvature lumbar spine centered at L3-L4. There are multilevel degenerative changes lumbar spine with milddisc space narrowing, endplate osteophytosis, and facet arthropathy. There are mild degenerative changes of the bilateral sacroiliac joints with mildjoint space narrowing and minimal sclerosis. There is an intrauterine devicenoted overlying the pelvis. IMPRESSION: 1. Lumbar levoscoliosis with multilevel spondylosis. No definiteevidence of acute fracture or subluxation. THIS IS AN ELECTRONICALLY VERIFIED FINAL REPORT 08/11/2021 2:52 PM - Electronically signed by Raissa Raza D.O. PS: PS Report ID: [id number] Reading Location: [id number] Amaya Kowalski NP IMG XR PROCEDURES Final R esult documented in this encounter Visit Diagnoses Diagnosis Lumbar pain Lumbago documented in this encounter Additional Health Concerns Infection Onset Date Last Indicated Resolved Time COVID: Recovered Comment:Added based on recent COVID infection. 07/10/2021 07/10/2021 11/07/2021 3:[address] documented as of this encounter Care Teams Fusion Analyst Relationship Specialty Start Date End Date Amaya Kowalski, MONICA PCP - General Nurse Practitioner 09/25/20 documented as of this encounter
--- OUTSIDE RECORDS SUMMARY | 2024-11-30 17:36 | XMS_ITS | Encounter Summary ---
Author Organization [facility] Healthcare Address [address] [place] [address] Care Team Providers Care Interior Design Principal Name Role Phone Amaya Kowalski MECHANICAL CAD DRAFTER Primary Care Provider [phone] [phone] Encounter Details Date Type Department Care Team (Late st Contact Info) Description 06/26/2021 2:55 PM CDT Lab [address] [address] Loss of taste Social History Tobacco Use Types Packs/Day Years Used Date Smoking Tobacco: Some Days Smokeless Tobacco: Never Alcohol Use Standard Drinks/Week Comments Yes 0 (1 standard drink = 0.6 oz pur e alcohol) Comments No Sex and Gender Information Value Date Recorded Sex Assigned at Not on file Legal Sex Female 3:28 AM WHITESMITH Gender Identity Not on file Sexual Orientation Not on file documented as of this encounter Plan of Treatment Not on file documented as of this encounter Procedures Procedure Name Priority Date/Time Associated Diagnosis Comments COVID-19 CORONAVIRUS RNA Routine 06/26/2021 10:48 AM CDT Loss of taste documented in this encounter Results * (ABNORMAL) COVID-19 Coronavirus RNA Nasopharyngeal (06/26/2021 10:48 AM CDT) COVID-19 RNA Positive(A ) Negative AFRICA CORNELL Comment: Interpretive data: Synonyms for this test include: PCR and NAAT . ??This test is performed using the [employer] Xpert Xpress assay. This is a real-time [...] CORNELL Is patient in ICU? No AFRICA CORNELL Symptomatic as defined by CDC? Yes AFRICA CORNELL Nasopharyngeal 06/26/2021 10 :48 AM CDT 06/26/2021 3:00 PM CDT Narrative AFRICA CH - 06/26/2021 4:12 PM CDT Patient is employed by/enrolled at:->[facility] [employer] What is the reason for testing?->Symptoms of COVID-19 in high-risk group Date of Symptom Onset->06/26/21 us Christi Henry MD LAB MICROBIOLOGY - GENERAL ORDERABLES Final Result AFRICA CORNELL [address] [place] [address] documented in this encounter Visit Diagnoses Diagnosis Loss of taste Disturbances of sensation of smell and taste documented in this encounter Additional Health Concerns Infection Onset Date Last Indicated Resolved Time COVID: Suspected 06/26/2021 06/26/2021 06/26/2021 4:12 PM CDT documented as of this encounter Care Teams Interior Design Principal Relationship Specialty Start Date End Date Amaya Kowalski NP PCP - General Nurse Practitioner 09/25/20 documented as of this encounter
--- OUTSIDE RECORDS SUMMARY | 2024-11-30 17:36 | XMS_ITS | Encounter Summary ---
Author Organization [facility] Healthcare Address [address] [place] [address] Care Team Providers Care Power Builder Developer Name Role Phone Amaya Kowalski LOCKET MAKER Primary Care Provider [phone] [phone] Reason for Visit * Reason Comments PT Treatment Encounter Details Date Type Department Care Team (Late st Contact Info) Description 01/31/2021 4:45 PM REVENUE ACCOUNTING MANAGER Therapy [facility] Physical Therapy [address] Rehabilitation [facility] [place] [address] Marquita Vines, INDUSTRIAL CHEMIST Low back pain, unspecified back pain laterality, [...] on file Legal Sex Female 3:28 AM REVENUE ACCOUNTING MANAGER Gender Identity Not on file Sexual Orientation Not on file documented as of this encounter Progress Notes * Marquita Vines, INDUSTRIAL CHEMIST - 01/31/2021 4:45 PM CST PT Daily Treatment Note Irma Seymour 1980 Subjective: Pt says her back only hurts when she is bending over or trying to pick something up. Pain: 0/10 LB Objective: see treatment provided Treatment Provided: Recumbent bike x 8 min Cat/camel stretch x 10 Child prayer stretch to the L side x 3 R sidelying lat stretch x 3 L sidelying crunch x 10 B rows, blue tb x 20 B ER, green tb x 20 B sh ext, blue tb x 20 Cable pull downs, 80# x 20 Powerplate, mini squat and planks 3 x 30 sec Seated HS stretch x 4* B Piriformis stretch x 4* Horizontal abd, palms up and palms down, green tb x 20 ea* Alt UE in quadruped x 10* Alt UE/LE in quadruped x 10* LTR x 10 w/SB* Bridges x 20 w/feet on SB* SL bridges x 10 * Thoracic foam roller stretch x 5* . STM to lowback x 10 min s *(not performed this visit) If this is the last visit, consider this a discharge summary. Progress to: Prone scap ex Core strengthening-bridges, single leg bridge, planks Assessment: Pt tolerates exercises w/no complaints of pain. Pt stated she felt better and looser after STM to low back. Plan: Cont POC and progress as able. Start Time: 1645 End Time: 1735 MT Martino PTA NUE ACCOUNTING MANAGER documented in this encounter Plan of Treatment Not on file documented as of this encounter Visit Diagnoses Diagnosis Low back pain, unspecified back pain laterality, unspecified chronicity, unspecified whether sciatica present- Primary documented in this encounter Care Teams Power Builder Developer Relationship Specialty Start Date End Date Amaya Kowalski NP PCP - General Nurse Practitioner 09/25/20 documented as of this encounter
--- OUTSIDE RECORDS SUMMARY | 2024-11-30 17:36 | XMS_ITS | Encounter Summary ---
Author Organization [facility] Address [address] [place] [address] Care Team Providers Care Kickboxing Instructor Name Role Phone Amaya Kowalski NP Primary Care Provider [phone] [phone] Reason for Visit * Reason Onset Date Comments Covid-19 Home Monitoring 07/10/2021 Non Res ponder Encounter Details Date Type Department Care Team (Late st Contact Info) Description 07/10/2021 Telephone [facility] Accountable Care Organization [address] [place] [address] Hannah Beaver LPN [address] [place] [address] Covid-19 Home Monitoring (Non Responder) Social History Tobacco Use Types Packs/Day Years Used Date Smoking Tobacco: Some Days Smokeless Tobacco: Never Alcohol Use Standard Drinks/Week Comments Yes 0 (1 standard drink = 0.6 oz pur e alcohol) Comments No Sex and Gender Information Value Date Recorded Sex Assigned at Not on file Legal Sex Female 3:28 AM SENIOR COMPLIANCE ANALYST Gender Identity Not on file Sexual Orientation Not on file documented as of this encounter Miscellaneous Notes * Telephone Encounter - Hannah Beaver LPN - 07/10/2021 1:57 PM CDT This patient is enrolled in the COVID-19 Home Monitoring Program and had not responded to the dailysymptom questionnaire. Telephonic outreach attempted to assess patient???s symptoms. Home Monitoring symptom questionnaire was not completed today, because the patient could not be reached. Symptom Questionnaire to be completed by patient tomorrow. documented in this encounter Plan of Treatment Not on file documented as of this encounter Visit Diagnoses Not on filedocumented in this encounter Additional Health Concerns Infection Onset Date Last Indicated Resolved Time COVID19 06/26/2021 06/26/2021 07/10/2021 3:05 AM CDT COVID: Recovered Comment:Added based on recent COVID infection. 07/10/2021 07/10/2021 11/07/2021 3:[address] documented as of this encounter Care Teams Kickboxing Instructor Relationship Specialty Start Date End Date Amaya Kowalski NP PCP - General Nurse Practitioner 09/25/20 documented as of this encounter
--- OUTSIDE RECORDS SUMMARY | 2024-11-30 17:36 | XMS_ITS | Encounter Summary ---
Author Organization [facility] Medical Group Address [address] [facility] [facility] [address] [place] [address] Care Team Providers Care Fire Control Technician Name Role Phone Amaya Kowalski NP Primary Care Provider [phone] Reason for Visit * Reason Onset Date Comments Covid-19 Home Monitoring 07/08/2021 non res ponder Encounter Details Date Type Department Care Team (Late st Contact Info) Description 07/08/2021 Telephone [facility] Accountable Care Organization [address] [place] [address] Hannah Beaver LPN [address] [place] [address] Covid-19 Home Monitoring (non responder) Social History Tobacco Use Types Packs/Day Years Used Date Smoking Tobacco: Some Days Smokeless Tobacco: Never Alcohol Use Standard Drinks/Week Comments Yes 0 (1 standard drink = 0.6 oz pur e alcohol) Comments No Sex and Gender Information Value Date Recorded Sex Assigned at Not on file Legal Sex Female 3:28 AM PUBLIC SERVICE OFFICER Gender Identity Not on file Sexual Orientation Not on file documented as of this encounter Miscellaneous Notes * Telephone Encounter - Hannah Beaver LPN - 07/08/2021 2:14 PM CDT This patient is enrolled in [...] documented as of this encounter Care Teams Fire Control Technician Relationship Specialty Start Date End Date Amaya Kowalski NP PCP - General Nurse Practitioner 09/25/20 documented as of this encounter
--- OUTSIDE RECORDS SUMMARY | 2024-11-30 17:36 | XMS_ITS | Encounter Summary ---
Author Organization [facility] Medical Group Address [address] [facility] [facility] [address] [place] [address] Care Team Providers Care Provisioning Analyst Name Role Phone Amaya Kowalski PHARMACEUTICAL DEVELOPMENT TECHNICIAN Primary Care Provider [phone] [phone] Encounter Details Date Type Department Care Team (Late st Contact Info) Description 06/27/2021 Orders Only [facility] Accountable Care Organization [address] [place] [address] Dhara Murray RN [address] [place] [address] [address] [place] [address] Social History Tobacco Use Types Packs/Day Years Used Date Smoking Tobacco: Some Days Smokeless Tobacco: Never Alcohol Use Standard Drinks/Week Comments Yes 0 (1 standard drink = 0.6 oz pur e alcohol) Comments No Sex and Gender Information Value Date Recorded Sex Assigned at Not on file Legal Sex Female 3:28 AM COOKER SULFITE Gender Identity Not on file Sexual Orientation Not on file documented as of this encounter Plan of Treatment Not on file documented as of this encounter Visit Diagnoses Not on filedocumented in this encounter Additional Health Concerns Infection Onset Date Last Indicated Resolved Time COVID19 06/26/2021 06/26/2021 07/10/2021 3:05 AM CDT documented as of this encounter Care Teams Provisioning Analyst Relationship Specialty Start Date End Date Amaya Kowalski NP PCP - General Nurse Practitioner 09/25/20 documented as of this encounter
--- OUTSIDE RECORDS SUMMARY | 2024-11-30 17:36 | XMS_ITS | Encounter Summary ---
Author Organization [facility] Healthcare Address [address] [place] [address] Care Team Providers Care Painter And Decorator Apprentice Name Role Phone Amaya Kowalski FRAMING SPECIALIST Primary Care Provider [phone] [phone] Reason for Visit * Reason Comments PT Treatment Encounter Details Date Type Department Care Team (Late st Contact Info) Description 12/16/2020 4:45 PM CREEL SELECTOR Therapy [facility] Physical Therapy [address] Rehabilitation & [place] [address] Marquita Vines, FELLING BUCKING SUPERVISOR Low back pain, unspecified back pain laterality, [...] on file Legal Sex Female 3:28 AM CREEL SELECTOR Gender Identity Not on file Sexual Orientation Not on file documented as of this encounter Progress Notes * Marquita Vines, FELLING BUCKING SUPERVISOR - 12/16/2020 4:45 PM CST PT Daily Treatment Note Irma Seymour 1980 Subjective: Pt states she has been having a hard time getting here due to work. Pain: 4/10 neck and R side of back Objective: see treatment provided Treatment Provided: Nustep, L5 x 6 min Seated HS stretch x 4 B Supine hamstring stretch x2 B Piriformis stretch x 2 Horizontal abd, palms up and palms down, green tb x 20 ea. * B ER, green tb x 20 * B sh ext, blue tb x 20 * B rows, blue tb x 20 * Alt UE in quadruped x 10 Alt UE/LE in quadruped x 10 Cat/camel stretch x 10 Hips to heel stretch x 5, R and L * Planks 2 x 30 sec LTR x 10 Bridges x 20 SL bridges x 10 * Thoracic foam roller stretch x 5 MHP to LB Progress to: Prone scap ex Core strengthening-bridges, single leg bridge, planks Assessment: Pt tolerates exercises fair today with c/o pain on the R side. Plan: Cont POC and progress as able. Start Time: 1650 End Time: 1733 Marquita Vines PTA L SELECTOR documented in this encounter Plan of Treatment Not on file documented as of this encounter Visit Diagnoses Diagnosis Low back pain, unspecified back pain laterality, unspecified chronicity, unspecified whether sciatica present- Primary documented in this encounter Care Teams Painter And Decorator Apprentice Relationship Specialty Start Date End Date Amaya Kowalski NP PCP - General Nurse Practitioner 09/25/20 documented as of this encounter
--- OUTSIDE RECORDS SUMMARY | 2024-11-30 17:36 | XMS_ITS | Encounter Summary ---
Author Organization [facility] Medical [facility] Address [address] [facility] [address] [place] [address] Care Team Providers Care Automatic Drill Operator Name Role Phone Amaya Kowalski NP Primary Care Provider [phone] [phone] Reason for Visit * Reason Onset Date Comments Covid-19 Home Monitoring 07/12/2021 Encounter Details Date Type Department Care Team (Late st Contact Info) Description 07/12/2021 Telephone [facility] Accountable Care Organization [address] [place] [address] Kelly Pina CMA [address] [place] [address] Covid-19 Home Monitoring Social History Tobacco Use Types Packs/Day Years Used Date Smoking Tobacco: Some Days Smokeless Tobacco: Never Alcohol Use Standard Drinks/Week Comments Yes 0 (1 standard drink = 0.6 oz pur e alcohol) Comments No Sex and Gender Information Value Date Recorded Sex Assigned at Not on file Legal Sex Female 3:28 AM EDUCATION ADVISER Gender Identity Not on file Sexual Orientation Not on file documented as of this encounter Miscellaneous Notes * Telephone Encounter - Kelly Pina CMA - 07/12/2021 2:40 PM CDT This patient is being disenrolled from the phone-only version of the COVID-19 home monitoring program for the following reason: Complete The patient has either completed the full 14-day program or has expressed 3 days of improved or no symptoms and 7 days since initial onset. We recommend that they are scheduled for a telemedicine evaluation with a primary care provider within 3 days of completion of the program. For questions or concerns about the home monitoring program, please contact . documented in this encounter Plan of Treatment Not on file documented as of this encounter Visit Diagnoses Not on filedocumented in this encounter Additional Health Concerns Infection Onset Date Last Indicated Resolved Time COVID: Recovered Comment:Added based on recent COVID infection. 07/10/2021 07/10/2021 11/07/2021 3:[address] documented as of this encounter Care Teams Automatic Drill Operator Relationship Specialty Start Date End Date Amaya Kowalski NP PCP - General Nurse Practitioner 09/25/20 documented as of this encounter
--- OUTSIDE RECORDS SUMMARY | 2024-11-30 17:36 | XMS_ITS | Encounter Summary ---
Author Organization [facility] Healthcare Address [address] [place] [address] Care Team Providers Care Rivet Bucker Name Role Phone Amaya Kowalski RUBBERIZING MECHANIC Primary Care Provider [phone] [phone] Reason for Visit * Reason Comments PT Treatment Encounter Details Date Type Department Care Team (Late st Contact Info) Description 01/27/2021 1:45 PM METALIZER FIELD OPERATION Therapy [facility] Physical Therapy [address] Rehabilitation & [place] [address] Elza Tsai, PT Low back pain, unspecified [...] on file Legal Sex Female 3:28 AM METALIZER FIELD OPERATION Gender Identity Not on file Sexual Orientation Not on file documented as of this encounter Progress Notes * Elza Tsai, PT - 01/27/2021 1:45 PM CST PT Daily Treatment Note Irma Seymour 1980 Subjective: Pt states her back is bothering her a little bit especially w/bending forward, and returning to standing. She has been working a lot as well. Pain: 0/10 LB Objective: see treatment provided Treatment Provided: Nustep, L5 x 6 min Seated HS stretch x 4 B Piriformis stretch x 4 Horizontal abd, palms up and palms down, green tb x 20 ea. B ER, green tb x 20 B sh ext, blue tb x 20 B rows, blue tb x 20 Alt UE in quadruped x 10 Alt UE/LE in quadruped x 10 Cat/camel stretch x 10 Hips to heel stretch x 10, R and L LTR x 10 w/SB Bridges x 20 w/feet on SB SL bridges x 10 Thoracic foam roller stretch x 5 Powerplate, mini squat and planks 3 x 30 sec. Cable pull downs, 80# x 20 Cable rows, 80# x 20 MHP to LB* *(not performed this visit) If this is the last visit, consider this a discharge summary. Progress to: Prone scap ex Core strengthening-bridges, single leg bridge, planks Assessment: Pt tolerates exercises w/minimal c/o pain. Plan: Cont POC and progress as able. Start Time: 1347 End Time: 1427 Elza Tsai PT LIZER FIELD OPERATION documented in this encounter Plan of Treatment Not on file documented as of this encounter Visit Diagnoses Diagnosis Low back pain, unspecified back pain laterality, unspecified chronicity, unspecified whether sciatica present- Primary documented in this encounter Care Teams Rivet Bucker Relationship Specialty Start Date End Date Amaya Kowalski NP PCP - General Nurse Practitioner 09/25/20 documented as of this encounter
--- OUTSIDE RECORDS SUMMARY | 2024-11-30 17:36 | XMS_ITS | Encounter Summary ---
Author Organization [facility] Healthcare Address [address] [place] [address] Care Team Providers Care Senior Trainer Name Role Phone Amaya Kowalski BOWLING BALL WEIGHER AND PACKER Primary Care Provider [phone] [phone] Reason for Visit * Reason Comments PT Treatment Encounter Details Date Type Department Care Team (Late st Contact Info) Description 12/18/2020 4:45 PM BRAZE OPERATOR Therapy [facility] Physical Therapy [address] [facility] [place] [address] Elza Tsai, PT Low back pain, unspecified [...] on file Legal Sex Female 3:28 AM BRAZE OPERATOR Gender Identity Not on file Sexual Orientation Not on file documented as of this encounter Progress Notes * Elza Tsai, PT - 12/18/2020 4:45 PM CST PT Daily Treatment Note Irma Seymour 1980 Subjective: Pt states her back is not too bad today, but she woke up w/a sore neck today. Pain: 3/10 neck and R side of [...] 10, R and L LTR x 10 Bridges x 20 w/feet on SB SL bridges x 10 Thoracic foam roller stretch x 5* Powerplate, mini squat and planks 3 x [...] POC and progress as able. Start Time: 1643 End Time: 1723 Elza Tsai PT E OPERATOR documented in this encounter Plan of Treatment Not on file documented as of this encounter Visit Diagnoses Diagnosis Low back pain, unspecified back pain laterality, unspecified chronicity, unspecified whether sciatica present- Primary documented in this encounter Care Teams Senior Trainer Relationship Specialty Start Date End Date Amaya Kowalski NP PCP - General Nurse Practitioner 09/25/20 documented as of this encounter
--- OUTSIDE RECORDS SUMMARY | 2024-11-30 17:37 | XMS_ITS | Encounter Summary ---
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 patient (Primary Dx) Social History Tobacco Use Types Packs/Day Years Used Date Smoking Tobacco: Some Days Smokeless Tobacco: Never Alcohol Use Standard Drinks/Week Comments Yes 0 (1 standard drink = 0.6 oz pur e alcohol) Comments No Sex and Gender Information Value Date Recorded Sex Assigned at Not on file Legal Sex Female 3:28 AM TOWER ERECTOR HELPER Gender Identity Not on file Sexual Orientation Not on file documented as of this encounter Plan of Treatment Not on file documented as of this encounter Visit Diagnoses Diagnosis Idiopathic scoliosis in adult patient- Primary documented in this encounter Care Teams Transit Specialist Relationship Specialty Start Date End Date Amaya Kowalski NP PCP - General Nurse Practitioner 09/25/20 documented as of this encounter
--- OUTSIDE RECORDS SUMMARY | 2024-11-30 17:37 | XMS_ITS | Encounter Summary ---
Author Organization [facility] Healthcare Address [address] [place] [address] Care Team Providers Care Bpm Analyst Name Role Phone Rojelio Freed MD Primary Care Provider Reason for Visit * Reason Comments Hives Nausea Chest Pain Encounter Details Date Type Department Care Team (Late st Contact Info) Description 05/29/2018 4:39 PM CDT - 05/29/2018 5:24 PM CDT Emergency [facility] Emergency Department [address] [place] [address] Porter Delgado MD [address] [address] Idiopathic urticaria (Primary Dx); Anxiety Discharge Disposition: Discharge to home or self care Social History Tobacco Use Types Packs/Day Years Used Date Smoking Tobacco: Some Days Smokeless Tobacco: Never Alcohol Use Standard Drinks/Week Comments Yes 0 (1 standard drink = 0.6 oz pur e alcohol) Comments No Sex and Gender Information Value Date Recorded Sex Assigned at Not on file Legal Sex Female 3:28 AM SWIMMING 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 Gender Identity Not on file Sexual Orientation Not on file documented as of this encounter Last Filed Vital Signs Vital Sign Reading Time Taken Comments Blood Pressure 138/97 05/29/2018 5:00 PM CDT Pulse 79 05/29/2018 4:56 PM CDT Temperature 36.8 ??C (98.2 ??F) 05/29/2018 4:56 PM CD T Respiratory Rate 20 05/29/2018 4:56 PM CDT Oxygen Saturation 100% 05/29/2018 5:00 PM CDT Inhaled Oxygen Concentration - - Weight 56.7 kg (125 lb) 05/29/2018 4:56 PM CDT Height 157.5 cm (5' 2 ) 05/29/2018 4:56 PM CDT Body Mass Index 22.86 05/29/2018 4:56 PM CDT documented in this encounter Discharge Instructions * Discharge Instructions* Porter Delgado MD - 05/29/2018 5:15 PM CDT Advised to follow with your doctor, consult Allergy and immunology * Attachments The following attachments cannot be sent through Care Everywhere. * Urticaria (AfterCare(R) Instructions(ER/ED)) (Bulgarian) documented in this encounter Medications at Time of Discharge busPIRone (BUSPAR) 7.5 mg tablet TAKE 1 TABLET BY ORAL ROUTE 2 TIMES EVERY DAY 60 tablet 1 01/24/2018 predniSONE (DELTASONE) 20 mg tablet Take 2 tablets (40 mg total) by mouth daily for 5 days. 10 tablet 05/29/2018 06/03/2018 LORazepam (ATIVAN) 1 mg tablet Take 1 tablet (1 mg total) by mouth 2 (two) times a day as needed for anxiety. 60 tablet 5 11/26/2017 05/30/2018 documented as of this encounter Ordered Prescriptions Prescription Sig Dispense Quantity Refills Last Filled Start Date End Date predniSONE (DELTASONE) 20 mg tablet Take 2 tablets (40 mg total) by mouth daily for 5 days. 10 tablet 05/29/2018 8 documented in this encounter Discharge Disposition Disposition Code Departure Means Destination Discharge to home or self care documented in this encounter ED Notes * Porter Delgado MD - 05/29/2018 5:05 PM CDT HPI Chief Complaint Patient presents with ??? Hives ??? Nausea ??? Chest Pain 4:57 PM 05/29/2018 - Patient is a 38 y/o female smoker with a h/o pleurisy presenting to the ED via private vehicle c/o hives on her chest that she has had intermittently for the past 2 months, worsening in the past 2 days. She also notes a lump in my throat that goes down to my chest. She is also experiencing nausea, dizziness, and blurred vision. She denies any edema. No emesis. No fever or chills. No SOB. The patient also notes taking Ativan and Buspar. There are no other complaints at this time. Patient History Patient Active Problem List Diagnosis Date Noted ??? BMI 26.0-26.9,adult 09/01/2017 ??? Insect bite of left leg 09/01/2017 ??? Anxiety 05/11/2017 Past Medical History: Diagnosis Date ??? Pleurisy Past Surgical History: Procedure Laterality Date ??? OTHER SURGICAL HISTORY 2014 pleurasy: Medical Management Family History Problem Relation Age of Onset ??? Hypertension Father Hypertension; Social History Substance Use Topics ??? Smoking status: Current Some Day Smoker ??? Smokeless tobacco: Never Used ??? Alcohol use Yes Social History Social History Narrative ??? No narrative on file Review of Systems Review of Systems Constitutional: Negative for chills, fatigue and fever. HENT: Positive for sore throat ( lump travels down to her chest). Negative for congestion, ear pain, rhinorrhea and sneezing. Eyes: Positive for visual disturbance (blurred vision). Respiratory: Negative for cough, shortness of breath and wheezing. Cardiovascular: Positive for chest pain ( lump ). Negative for palpitations. Gastrointestinal: Positive for nausea. Negative for abdominal pain, constipation, diarrhea and vomiting. Genitourinary: Negative for dysuria and frequency. Musculoskeletal: Negative for arthralgias, back pain, myalgias and neck pain. -edema Skin: Positive for rash ( hives on her chest). Negative for color change, pallor and wound. Neurological: Positive for dizziness. Negative for syncope, weakness, light- headedness and headaches. All other systems reviewed and are negative. Physical Exam ED Triage Vitals Temp Pulse Resp BP SpO2 05/29/18 1656 05/29/18 1656 05/29/18 1656 05/29/18 1656 05/29/18 1653 36.8 ??C (98.2 ??F) 79 20 141/97 100 % Temp src Heart Rate Source Patient Position BP Location FiO2 (%) 05/29/18 1656 -- -- -- -- Temporal Physical Exam Constitutional: She is oriented to person, place, and time. She appears well- developed and well-nourished. HENT: Head: Normocephalic and atraumatic. Mouth/Throat: Oropharynx is clear and moist. Eyes: EOM are normal. Pupils are equal, round, and reactive to light. Neck: Normal range of motion. Neck supple. Cardiovascular: Normal rate, regular rhythm and normal heart sounds. Pulmonary/Chest: Effort normal. Abdominal: Soft. Bowel sounds are normal. Musculoskeletal: Normal range of motion. Neurological: She is alert and oriented to person, place, and time. Skin: Skin is warm and dry. Psychiatric: She has a normal mood and affect. Nursing note and vitals reviewed. [facility] Labs Reviewed - No data to display No orders to display BP 138/97 Pulse 79 Temp 36.8 ??C (98.2 ??F) (Temporal) Resp 20 Ht 157.5 cm (5' 2 ) Wt 56.7 kg (125 lb) SpO2 100% BMI 22.86 kg/m?? ED Course as of May 29 1748 Time: 05/29 1707 Comment: Pre-hypertension/Hypertension: The patient has been informed that they may have pre-hypertension or Hypertension based on a blood pressure reading in the Emergency Department. I recommend that the patient call the primary care provider listed on their discharge instructions or a physician of their choice this week to arrange follow up for further evaluation of possible pre- hypertension or Hypertension. By: Svetlana Ramsay Time: 05/29 1729 Comment: EKG NSR HR 78 , Normal a By: Porter Delgado MD Idiopathic urticaria Anxiety 5:07 PM: This note is prepared by Svetlana Ramsay, acting as a scribe for Porter Delgado MD. I electronically signed this note at 5:07 PM on 05/29/2018. I, Porter Delgado MD have personally performed the services described in the documentation , reviewed the documentation, as recorded by the scribe in my presence, and it accurately and completely records my words and actions. Porter Delgado MD 05/29/18 9817 Porter Delgado MD 05/29/18 9242 * Mona Hdz RN - 05/29/2018 4:51 PM CDT Patient arrived with c/o hives, feeling like a lump in her throat and intermittent chest pain that started a few months ago but worse the last few days. Patient denies using any new products. Patienttook Benadryl 25mg at 3:30pm. Patient also reports blurred vision and dizziness when symptoms occur. documented in this encounter Plan of Treatment Not on file documented as of this encounter Procedures Procedure Name Priority Date/Time Associated Diagnosis Comments ECG 12-LEAD STAT 05/29/2018 4:44 PM CDT documented in this encounter Results * ECG 12 lead (05/29/2018 4:44 PM CDT) Patient age 38 years [facility] Interpretation Text SINUS RHYTHMPOSSIBLE RIGHT VENTRICULAR CONDUCTION DELAYBORDERLINE ECGPREVIOUS TRACIN07/20/2015 20.14 [facility] Comment:Physician Interprete r Dr. Cal Hatfield M.D. Ventricular Rate EKG/Min 78 /min [facility] P Wave Duration 109 ms [facility] QRS-Interval (MSEC) 81 ms [facility] IN-Interval (MSEC) 125 ms [facility] QT Interval 343 ms [facility] QTc 374 ms [facility] QTC Interval ms [facility] P Cunningham -3 deg [facility] QRS Cunningham 16 deg [facility] T Cunningham 16 deg [facility] 05/29/2018 4:44 PM CDT us Porter Delgado MD ECG ORDERABLES Final Result [facility] documented in this encounter Visit Diagnoses Diagnosis Idiopathic urticaria- Primary Anxiety Anxiety state, unspecified documented in this encounter Orders EKG Orders Without Results Count Last Ordered D ate First Ordered Date ECG 12-LEAD 1 05/29/2018 documented in this encounter Care Teams Bpm Analyst Relationship Specialty Start Date End Date Rojelio Freed MD PCP - General 02/26/17 09/24/20 documented as of this encounter
--- OUTSIDE RECORDS SUMMARY | 2024-11-30 17:37 | XMS_ITS | Encounter Summary ---
Author Organization [facility] Healthcare Address [address] [place] [address] Care Team Providers Care Manufacturing Supervisor 2Nd Shift Name Role Phone Amaya Kowalski UTILITY PIPE LAYER Primary Care Provider [phone] [phone] Reason for Visit * Reason Comments PT Initial Eval * Consultation (Routine) - Closed Specialty Diagnoses / Procedures Referred By Contac t Referred To Contact Physical Therapy Diagnoses Low back pain, unspecified back pain laterality, unspecified chronicity, unspecified whether sciatica present Idiopathic scoliosis in adult patient Chronic midline low back [place] [address] [address] Phone: tel: fax: [address] [address] Referral ID Status Reason Start Date Expiration Date V isits Requested Visits Authorized [id number] Closed Specialty Services Required 09/25/2020 10/25/2021 12 12 Encounter Details Date Type Department Care Team (Late st Contact Info) Description 10/31/2020 8:15 AM BLOWING ENGINEER Therapy [facility] Physical Therapy - [address] [facility] [place] [address] Elza Tsai, PT Low back pain, unspecified back pain laterality, unspecified chronicity, unspecified whether sciatica present (Primary Dx); Idiopathic scoliosis in adult patient; Chronic midline low back pain without sciatica Social History Tobacco Use Types Packs/Day Years Used Date Smoking Tobacco: Some Days Smokeless Tobacco: Never Alcohol Use Standard Drinks/Week Comments Yes 0 (1 standard drink = 0.6 oz pur e alcohol) Comments No Sex and Gender Information Value Date Recorded Sex Assigned at Not on file Legal Sex Female 3:28 AM BLOWING ENGINEER Gender Identity Not on file Sexual Orientation Not on file documented as of this encounter Progress Notes * Elza Tsai, PT - 10/31/2020 8:15 AM CST PT Initial Evaluation Irma Seymour 1980 40 [place] [address] [facility] [address] [place] [address] ICD-9-CM ICD-10-CM 1. Low back pain, unspecified back pain laterality, unspecified chronicity, unspecified whether sciatica present 724.2 M54.5 Ambulatory referral order to Physical Therapy - 2. Idiopathic scoliosis in adult patient 737.30 M41.20 Ambulatory referral order to Physical Therapy - 3. Chronic midline low back pain without sciatica 724.2 M54.5 Ambulatory referral order to PhysicalTherapy - 338.29 G89.29 Subjective: History of Present Condition Description of onset: Pt reports having some back pain for many years. She reports that lately the pain has become more frequent. She reports having a 40 deg curve in her spine, but states that hasn't never really bothered her much before. She reports she has to most pain w/bending forward, and sitting is usually worse than standing. She reports mild pain w/lifting. Walking is usually okay. She is taking Meloxicam occasionally. She is also used a heating pad occasionally. She does report some occasional N/T in her L calf and great toe. 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 Physical work requirements: sitting, computer work Diagnostic Tests X-ray: (40 deg thoracolumbar curve) Treatments Previous treatment: Chiropractic Current treatment: Physical therapy Patient/Caregiver Goals Goals for therapy: Decreased pain, Increased motion, Increased strength PHYSICAL EXAMINATION Posture: R shoulder elevated and rounded forward more than the L, L thoracic C- curve, level PSIS Lumbar ROM: flexion 40 deg; extension 15 deg; R lateral flexion 15 deg; L 15 deg; Thoracic rotationR moderately decreased (painful); L moderately decreased LE strength: L-grossly 4/5; R-grossly 4/5 Core strength: 3/5 Scapular muscles: grossly 4-/5 Palpation: tender at R rib hump, mild tenderness in lumbar spine w/mobs Lumbar spinal mobility: mildly hypomobile in lumbar spine, moderately hypomobile in thoracic spine Reflexes: Patellar tendon: R 2+; L 2+ Flexibility: 90/90 Hs: -10 deg B Piriformis flexibility: moderately decreased Gait: normal Special tests: SLR: (-) Slump: (-) Treatment Provided: Seated HS stretch Piriformis Horizontal abd, palms up and palms down B ER Planks LTR Progress to: nustep B sh ext B shoulder rows Prone scap ex Core strengthening-bridges, single leg bridge, planks Assessment/Plan: Assessment Impairments: decreased mobility, lacks appropriate home exercise program, impaired physical strength, impaired posture, abnormal or restricted ROM, activity tolerance, flexibility Barriers to therapy: 40 deg thoracolumbar curve Prognosis: fair Goals STG 1:: pt to be indep w/HEP and demonstrate understanding Goal status: New STG 2:: pt to tolerate progressive ex w/minimal c/o pain Goal status: New STG 3:: pt to report <2/10 pain in the LB by 3 weeks Goal status: New LTG 1:: Pt to score <20% on OCTAVIANO by DC Goal status: New LTG 2:: Pt to be able to sit for >1 hr w/minimal c/o pain by DC Goal status: New LTG 3:: pt to increase LE and scap mm strength by 1 muscle grade by DC Goal status: New LTG 4:: Pt to report a 50% improvement in symptoms by DC Goal status: New Plan Start time: 0800 End time: 0900 Therapy options: will be seen for skilled therapy services Planned modality interventions: interferential current, ultrasound, cryotherapy, thermotherapy (hydrocollator packs) Planned therapy interventions: abdominal trunk stabilization, home exercise program, strengthening,stretching, endurance training, balance/weight-bearing training, therapeutic activities, Kinesiotaping, postural training, flexibility, manual therapy, functional ROM exercises, soft tissue mobilization Frequency: 2 x/week Duration in weeks: 6 weeks Discussed with: patient Elza Tsai PT ING ENGINEER documented in this encounter Plan of Treatment Not on file documented as of this encounter Visit Diagnoses Diagnosis Low back pain, unspecified back pain laterality, unspecified chronicity, unspecified whether sciatica present- Primary Idiopathic scoliosis in adult patient Chronic midline low back pain without sciatica documented in this encounter Orders Outpatient Referral Count Last Ordered Date st Ordered Date AMB REFERRAL ORDER TO PHYSICAL THERAPY 1 documented in this encounter Care Teams Manufacturing Supervisor 2Nd Shift Relationship Specialty Start Date End Date Amaya Kowalski NP PCP - General Nurse Practitioner 09/25/20 documented as of this encounter
--- OUTSIDE RECORDS SUMMARY | 2024-11-30 17:37 | XMS_ITS | Encounter Summary ---
Author Organization [facility] Healthcare Address [address] [place] [address] Care Team Providers Care Baggage Porter Name Role Phone Amaya Kowalski BEAUTY ADVISOR Primary Care Provider [phone] [phone] Reason for Visit * Reason Onset Date Comments Scheduling Appointments 10/07/2020 Encounter Details Date Type Department Care Team (Late st Contact Info) Description 10/07/2020 Telephone [facility] [address] [facility] 4[address] [place] [address] Reyna Jaimes Scheduling Appointments Social History Tobacco Use Types Packs/Day Years Used Date Smoking Tobacco: Some Days Smokeless Tobacco: Never Alcohol Use Standard Drinks/Week Comments Yes 0 (1 standard drink = 0.6 oz pur e alcohol) Comments No Sex and Gender Information Value Date Recorded Sex Assigned at Not on file Legal Sex Female 3:28 AM REMELT SUGAR BOILER Gender Identity Not on file Sexual Orientation Not on file documented as of this encounter Miscellaneous Notes * Telephone Encounter - Theodore Reyna - 10/07/2020 11:29 AM CST ----- Message from Brandyn Grimaldo MD sent at 10/05/2020 11:20 AM REMELT SUGAR BOILER ----- Regarding: RE: [facility] Spine Referral Hi Reyna, She may be referred to Dr. Malagon's clinic first and if her insurance does not cover the CAM visit and she would not like to pay the out of pocket fee, then she can be scheduled in the [facility], next available, no overbook. Kimani Milligan ----- Message ----- From: Reyna Jaimes Sent: 10/02/2020 2:40 PM REMELT SUGAR BOILER To: Brandyn Grimaldo MD Subject: [facility] Spine Referral Hi Dr Grimaldo I called this patient today to schedule a New Patient appt for Ortho Spine per the approved referral. While on the phone, the patient told me it was her understanding that she will be seeing a scoliosis specialist, Dr Malagon, and not the resident clinic. I see she has [employer] insurance. Would you like the patient to be scheduled in the [facility] or the [facility]? Srini Orellana LT SUGAR BOILER documented in this encounter Plan of Treatment Not on file documented as of this encounter Visit Diagnoses Not on filedocumented in this encounter Care Teams Baggage Porter Relationship Specialty Start Date End Date Amaya Kowalski NP PCP - General Nurse Practitioner 09/25/20 documented as of this encounter
--- OUTSIDE RECORDS SUMMARY | 2024-11-30 17:37 | XMS_ITS | Encounter Summary ---
Author Organization [facility] Address [address] [place] [address] Care Team Providers Care Reliability Technologist Name Role Phone Rojelio Freed MD Primary Care Provider Encounter Details Date Type Department Care Team (Late st Contact Info) Description 06/02/2018 Telephone [place] [facility] [address] [facility] [address] [place] [address] Rojelio Freed MD [address] [place] [address] [address] [place] [address] Social History Tobacco Use Types Packs/Day Years Used Date Smoking Tobacco: Some Days Smokeless Tobacco: Never Alcohol Use Standard Drinks/Week Comments Yes 0 (1 standard drink = 0.6 oz pur e alcohol) Comments No Sex and Gender Information Value Date Recorded Sex Assigned at Not on file Legal Sex Female 3:28 AM LANDSCAPING CREW LEADER Gender Identity Not on file Sexual Orientation Not on file documented as of this encounter Miscellaneous Notes * Telephone Encounter - Michell Byrd - 06/02/2018 10:56 AM CDT FYI - Pt called to say her insurance is still [place]. She has not been able to get it changed to [place] yet. Pt thinks it will be November before she has [place]. documented in this encounter Plan of Treatment Not on file documented as of this encounter Visit Diagnoses Not on filedocumented in this encounter Care Teams Reliability Technologist Relationship Specialty Start Date End Date Rojelio Freed MD PCP - General 02/26/17 09/24/20 documented as of this encounter
--- OUTSIDE RECORDS SUMMARY | 2024-11-30 17:37 | XMS_ITS | Encounter Summary ---
Author Organization [facility] Medical Group Address [address] [facility] [address] [place] [address] Care Team Providers Care Online User Experience Strategist Name Role Phone Amaya Kowalski NP Primary Care Provider [phone] Reason for Visit * Diagnostic Imaging (Routine) - Closed Specialty Diagnoses / Procedures Referred By Contac t Referred To Contact Diagnoses Low back pain, unspecified back pain laterality, unspecified chronicity, unspecified whether sciatica present Procedures XR Scoliosis Ap Lat Magdy Hagen MD [address] [place] [address] Phone: tel: fax: Referral ID Status Reason Start Date Expiration Date Visits Re quested Visits Authorized [id number] Closed 09/25/2020 10/25/2021 1 1 Encounter Details Date Type Department Care Team (Latest Contact Info) Description 09/25/2020 10:43 AM CDT - 09/25/2020 11:59 PM CDT Hospital Encounter [facility] [address] [place] [phone] Discharge Disposition: Discharge to home or self care Social History Tobacco Use Types Packs/Day Years Used Date Smoking Tobacco: Some Days Smokeless Tobacco: Never Alcohol Use Standard Drinks/Week Comments Yes 0 (1 standard drink = 0.6 oz pur e alcohol) Comments No Sex and Gender Information Value Date Recorded Sex Assigned at Not on file 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 Gender Identity Not on file Sexual Orientation Not on file documented as of this encounter Medications at Time of Discharge busPIRone (BUSPAR) 7.5 mg tablet TAKE 1 TABLET BY ORAL ROUTE 2 TIMES EVERY DAY 60 tablet 1 01/24/2018 ibuprofen (ibuprofen) 200 mg tab/cap Take 600 mg by mouth every 6 (six) hours as needed 12/26/2018 LORazepam (ATIVAN) 1 mg tablet TAKE 1 TABLET BY MOUTH TWICE A DAY NEEDED FOR ANXIETY 60 tablet 3 05/30/2018 venlafaxine XR (EFFEXOR-XR) 37.5 mg 24 hr capsule TAKE 1 CAPSULE BY MOUTH EVERY DAY 07/01/2020 meloxicam (MOBIC) 7.5 mg tablet Take 1 tablet (7.5 mg total) by mouth daily With food 30 tablet 1 09/25/2020 10/25/2020 documented as of this encounter Discharge Disposition Disposition Code Departure Means Destination Discharge to home or self care documented in this encounter Plan of Treatment Not on file documented as of this encounter Procedures Procedure Name Priority Date/Time Associated Diagnosis Comments XR SCOLIOSIS AP LAT Schedule Routine, Read Routine (OP Routine) 09/25/2020 2:23 PM CDT Low back pain, unspecified back pain laterality, unspecified chronicity, unspecified whether sciatica present documented in this encounter Results * XR Scoliosis Ap Lat (09/25/2020 2:23 PM CDT) Anatomical Region Laterality Modality Spine N/A Radiographic Sari ging Narrative 09/25/2020 6:46 PM CDT Scoliosis pictures are taken in our office today. ??This show thoracolumbar scoliosis which I measure about 40?? in a skeletally matured individual lateral x-rays are unremarkable us Magdy Hagen MD IMG XR PROCEDURES Final Re sult documented in this encounter Visit Diagnoses Not on filedocumented in this encounter Care Teams Online User Experience Strategist Relationship Specialty Start Date End Date Amaya Kowalski NP PCP - General Nurse Practitioner 09/25/20 documented as of this encounter
--- OUTSIDE RECORDS SUMMARY | 2024-11-30 17:37 | XMS_ITS | Encounter Summary ---
Author Organization [facility] Medical Group Address [address] [facility] [address] [place] [address] Care Team Providers Care Supervisor Wrapping Room Name Role Phone Amaya Kowalski NP Primary Care Provider [phone] Reason for Referral * Consultation (Routine) - Closed Specialty Diagnoses / Procedures Referred By Claudio remy Referred To Contact Physical Therapy Diagnoses Low back pain, unspecified back pain laterality, unspecified chronicity, unspecified whether sciatica present Idiopathic scoliosis in adult patient Chronic midline low back [place] [address] [address] [place] [id number] Phone: tel: fax: [address] [phone] Referral ID Status Reason Start Date Expiration Date V isits Requested Visits Authorized [id number] Closed Specialty Services Required 09/25/2020 10/25/2021 12 12 Question Answer PTRFR PT Evaluate and Treat Therapy options discussed with patient? Yes Location provided for therapy services is: Patient requested/Patient preferred Please select the performing region: [facility] [[id number]] # of visits: 12 Comments Modalities and home program * Diagnostic Imaging (Routine) - Closed Specialty Diagnoses / Procedures Referred By Contangélica t Referred To Contact Diagnoses Low back pain, unspecified back pain laterality, unspecified chronicity, unspecified whether sciatica present Procedures [place] [address] [address] [facility] [address] [place] [address] Phone: tel: fax: Referral ID Status Reason Start Date Expiration Date Visits Re quested Visits Authorized [id number] Closed 09/25/2020 10/25/2021 1 1 Reason for Visit * Reason Comments Pain Encounter Details Date Type Department Care Team (Late st Contact Info) Description 09/25/2020 10:45 AM CDT [facility] [id number] [phone] [place] [id number] [address] Low back pain, unspecified back pain laterality, [...] on file 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 Gender Identity Not on file Sexual Orientation Not on file documented as of this encounter Last Filed Vital Signs Vital Sign Reading Time Taken Comments Blood Pressure 122/86 09/25/2020 10:30 AM CDT Pulse - - Temperature 36.3 ??C (97.3 ??F) 09/25/2020 10:30 AM C DT Respiratory Rate - - Oxygen Saturation - - Inhaled Oxygen Concentration - - Weight 62.6 kg (138 lb) 09/25/2020 10:30 AM CDT Height 160 cm (5' 3 ) 09/25/2020 10:30 AM CDT Body Mass Index 24.45 09/25/2020 10:30 AM CDT documented in this encounter Ordered Prescriptions Prescription Sig Dispense Quantity Refills Last Filled Start Date End Date meloxicam (MOBIC) 7.5 mg tablet Take 1 tablet (7.5 mg total) by mouth daily With food 30 tablet 1 09/25/2020 10/25/2020 documented in this encounter Progress Notes * Magdy Hagen MD - 09/25/2020 10:45 AM CDT Images from the original note were not included. NEW PATIENT VISIT Subjective CHIEF COMPLAINT She had concerns including Pain of the Lumbar Spine. HISTORY OF PRESENT ILLINESS Back pain and scoliosis This 40-year-old female presents predominantly for back pain but also has a history of scoliosis the back pain has been going on for the last 2 years she also thinks is a knot on the back has been notrauma pain is intermittent bothered by extreme activities she works at [facility] [employer] shenSignicatly works in [employer] but currently she is working with the [employer]. Pain itself is local as depicted in her pain drawing no radiation into the lower extremities no tingling numbnessweakness of lower extremities no bladder or bowel dysfunction. She tried some Tylenol and Advil with mixed results no other treatment exception member that several years ago she was seen by a chiropractor and was told that she has scoliosis before that even at the age of 13 she was told that she has scoliosis in a routine screening but that was never followed up by an x-ray etc. no family historyof scoliosis but her older sister has a history of spina bifid a and is wheelchair-bound. She does not have any history of any major medical problems she does not smoke. Pain Assessment Pain Assessment: 0-10 Pain Score: 8 Pain Location: Back (Lumbar) Pain Descriptors: Sore Pain Frequency: Constant/continuous Pain Onset: Ongoing Clinical Progression: Not changed Result of Injury: No Work-Related Injury: No PAST MEDICAL HISTORY She has a past medical history of Pleurisy and Scoliosis. PAST SURGICAL HISTORY She has a past surgical history that includes Other surgical history (2015). MEDICATIONS She has a current medication list which includes the following prescription(s): ibuprofen, lorazepam, buspirone, meloxicam, and venlafaxine xr. ALLERGIES She is allergic to doxycycline and sulfamethoxazole-trimethoprim. SOCIAL HISTORY She reports that she has been smoking. She has never used smokeless tobacco. She reports current alcohol use. She reports that she does not use drugs. FAMILY HISTORY Family History Problem Relation Age of Onset ??? Hypertension Father Hypertension; REVIEW OF SYSTEMS Review of Systems Constitutional: Negative for chills and fever. HENT: Negative for congestion. Eyes: Negative for discharge. Respiratory: Negative for chest tightness. Cardiovascular: Negative for chest pain. Gastrointestinal: Negative for abdominal pain. Genitourinary: Negative for dysuria and hematuria. Musculoskeletal: Positive for back pain. Skin: Negative for color change. Neurological: Negative for facial asymmetry, speech difficulty and light-headedness. Hematological: Negative for adenopathy. Psychiatric/Behavioral: Negative for behavioral problems. Objective PHYSICAL EXAM BP 122/86 (BP Location: Left arm, Patient Position: Sitting) Temp 36.3 ??C (97.3 ??F) (Temporal) Ht 160 cm (5' 3 ) Wt 62.6 kg (138 lb) BMI 24.45 kg/m?? Ortho Exam Very pleasant appropriately bit 40-year-old female in the company of her frayed. She is in no acutedistress she is not short of breath and she is cooperative for this examination. Entire spine is examined and there is left on wake scoliosis which will be talked about in x-ray. But her hips and shoulders are balanced no skin lesions. Not that she is pointing out to is actually a left lower rib hump that becomes prominent when she bends forward. Reflex examination shows symmetric knee and ankle reflexes bilaterally. Sensory examination does not show any deficit related to a peripheral nerve or lumbar root distribution. Motor examination does not show any deficit upon testing hip knee and ankle motor exam. There is noatrophy. Peripheral circulation is adequate there is no lymphedema. REVIEW OF X-RAYS/STUDIES/LABS Scoliosis pictures are taken in our office today. This show thoracolumbar scoliosis which I measureabout 40?? in a skeletally matured individual lateral x-rays are unremarkable Assessment/Plan Irma was seen today for pain. Diagnoses and all orders for this visit: Low back pain, unspecified back pain laterality, unspecified chronicity, unspecified whether sciatica present - XR Scoliosis Ap Lat - Ambulatory referral order to Physical Therapy -; Future Idiopathic scoliosis in adult patient - Ambulatory referral order to Physical Therapy -; Future Chronic midline low back pain without sciatica - Ambulatory referral order to Physical Therapy -; Future Other orders - meloxicam (MOBIC) 7.5 mg tablet; Take 1 tablet (7.5 mg total) by mouth daily With food The pain and the scoliosis appear unrelated to each other. At the same time 40 degree of curvature at any age could be concerning unfortunately we have no natural history of it where no previous x-rays to compare to. I will start her on program of meloxicam and physical therapy and somewhere in thedistant future maybe in the next 6 months to year she can see Dr. Malagon regarding her scoliosis sheagreed I would see her back for follow-up in about 6 weeks predominantly for the pain and not as much for scoliosis Plan As a Magdy Hagen MD documented in this encounter Plan of Treatment Scheduled Referrals Name Type Priority Associated Diagnoses Orde r Schedule Ambulatory referral order to Physical Therapy - Outpatient Referral Routine Low back pain, unspecified back pain laterality, unspecified chronicity, unspecified whether sciatica present Idiopathic scoliosis in adult patient Chronic midline low back pain without sciatica Expected: 10/09/2020 (Approximate), Expires: 09/25/2021 documented as of this encounter Procedures Procedure [...] sult documented in this encounter Visit Diagnoses Diagnosis Low back pain, unspecified back pain laterality, unspecified chronicity, unspecified whether sciatica present- Primary Idiopathic scoliosis in adult patient Chronic midline low back pain without sciatica documented in this encounter Historical Medications * This list may reflect changes made after this encounter. ibuprofen (ibuprofen) 200 mg tab/cap Take 600 mg by mouth every 6 (six) hours as needed 12/26/2018 venlafaxine XR (EFFEXOR-XR) 37.5 mg 24 hr capsule TAKE 1 CAPSULE BY MOUTH EVERY DAY 07/01/2020 added in this encounter Care Teams Supervisor Wrapping Room Relationship Specialty Start Date End Date Amaya Kowalski NP PCP - General Nurse Practitioner 09/25/20 documented as of this encounter
--- OUTSIDE RECORDS SUMMARY | 2024-11-30 17:37 | XMS_ITS | Encounter Summary ---
Author Organization [facility] Medical Group Address [address] [facility] [address] [place] [address] Care Team Providers Care Transfer Driver Name Role Phone Rojelio Freed MD Primary Care Provider Reason for Visit * Reason Comments Follow-up Encounter Details Date Type Department Care Team (Late st Contact Info) Description 11/26/2017 9:30 AM CABINET MAKER Office Visit [facility] [address] 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 Gender Identity Not on file Sexual Orientation Not on file documented as of this encounter Last Filed Vital Signs Vital Sign Reading Time Taken Comments Blood Pressure 116/74 11/26/2017 8:54 AM CABINET MAKER Pulse 72 11/26/2017 8:54 AM CABINET MAKER Temperature - - Respiratory Rate 16 11/26/2017 8:54 AM CABINET MAKER Oxygen Saturation - - Inhaled Oxygen Concentration - - Weight 63.5 kg (140 lb) 11/26/2017 8:54 AM CABINET MAKER Height 157.5 cm (5' 2 ) 11/26/2017 8:54 AM CABINET MAKER Body Mass Index 25.61 11/26/2017 8:54 AM CABINET MAKER documented in this encounter Ordered Prescriptions Prescription Sig Dispense Quantity Refills Last Filled Start Date End Date busPIRone (BUSPAR) 7.5 mg tablet Take 1 tablet (7.5 mg total) by mouth 2 (two) times a day. 60 tablet 11 11/26/2017 01/23/2018 LORazepam (ATIVAN) 1 mg tablet Take 1 tablet (1 mg total) by mouth 2 (two) times a day as needed for anxiety. 60 tablet 5 11/26/2017 05/30/2018 documented in this encounter Progress Notes * Rojelio Freed MD - 11/26/2017 9:30 AM CST Subjective/Objective Patient ID: Irma Seymour is a 37 y.o. female. Chief Complaint Follow-up HPI Patient is here for follow-up visit after seeing the nurse practitioner last month for persistent anxiety symptoms. The patient has been on buspirone but only takes a half of a 7.5 mg pill twice a day since it makes her dizzy if she takes the whole pill. She also was found that a half a mg lorazepam is not always enough to quite her nerves. She does have episodic random attacks of anxiety she canjust be watching tell her that some think that the hit her. She has been trying to stay with just wonder to raise the pain today with good effect. The patient has been the alcohol drinker in the past with nodule street very sporadically. She has tried other psychiatric meds in the past for anxiety without much success. She is somewhat sedentary. The other issues the patient has some elevated eye pressures that she seeing the eye doctors for but is yet not on any medication. Review of Systems Constitutional: Negative for chills, diaphoresis, fatigue, fever and unexpected weight change. HENT: Negative for congestion, hearing loss, postnasal drip, sneezing, sore throat, tinnitus and trouble swallowing. Eyes: Negative for visual disturbance. Respiratory: Negative for cough, shortness of breath and wheezing. Cardiovascular: Negative for chest pain, palpitations and leg swelling. Gastrointestinal: Negative for abdominal pain, anal bleeding, blood in stool, constipation, diarrhea, nausea and vomiting. Endocrine: Negative for polydipsia, polyphagia and polyuria. Genitourinary: Negative for dysuria, frequency, hematuria and urgency. Patient was told by her career developer that she had HPV infection on her last Pap smear but there just going to watch it for now parent like. Musculoskeletal: Negative for arthralgias, back pain, joint swelling and myalgias. Skin: Negative for rash. Allergic/Immunologic: Negative for environmental allergies and food allergies. Neurological: Negative for dizziness, tremors, syncope and headaches. Hematological: Negative for adenopathy. Does not bruise/bleed easily. Psychiatric/Behavioral: Positive for sleep disturbance. Negative for dysphoric mood. The patient isnervous/anxious. Vitals: 11/26/17 0854 BP: 116/74 BP Location: Left arm Patient Position: Sitting Pulse: 72 Resp: 16 Weight: 63.5 kg (140 lb) Height: 157.5 cm (5' 2 ) Physical Exam Constitutional: She is oriented to person, place, and time. She appears well- developed and well-nourished. HENT: Head: Normocephalic and atraumatic. Right Ear: External ear normal. Left Ear: External ear normal. Nose: Nose normal. Mouth/Throat: Oropharynx is clear and moist. Eyes: Conjunctivae and EOM are normal. Pupils are equal, round, and reactive to light. Neck: Normal range of motion. Neck supple. Cardiovascular: Normal rate, regular rhythm, normal heart sounds and intact distal pulses. Pulmonary/Chest: Breath sounds normal. Abdominal: Soft. Bowel sounds are normal. Musculoskeletal: Normal range of motion. Neurological: She is alert and oriented to person, place, and time. She has normal reflexes. Skin: Skin is warm and dry. Psychiatric: She has a normal mood and affect. Nursing note and vitals reviewed. Assessment/Plan Diagnoses and all orders for this visit: Anxiety (Primary) Patient has low-grade anxiety that is well managed with p.r.n. therapy. With nice talk about the situation and she is using her lorazepam responsibly and at this point I am not too worried about overuse her addictive behavior so were going to her stay on that since she has not done well with other therapy. I do understand the buspirone though BMI 25.0-25.9,adult . Patient's weight is just fine and stable no recommendations there. Preventative health care - Comprehensive metabolic panel; Future - Lipid panel with reflex to direct LDL; Future Patient was set up for 0 1 year follow-up visit and at that time showed we 38 and so will get a labprofile Other orders - LORazepam (ATIVAN) 1 mg tablet; Take 1 tablet (1 mg total) by mouth 2 (two) times a day as neededfor anxiety. - busPIRone (BUSPAR) 7.5 mg tablet; Take 1 tablet (7.5 mg total) by mouth 2 (two) times a day. - Fluarix/Fluzone Quad PF 3 yrs & older IM Side effects, risks, interactions reviewed with patient. Indications for testing discussed. Any further problems to contact us. She was told what to look out for and verbalized understanding. The patient was given the opportunity to have all questions answered today and was in agreement with the plan of care. NET MAKER documented in this encounter Plan of Treatment Not on file documented as of this encounter Visit Diagnoses Diagnosis Anxiety- Primary Anxiety state, unspecified BMI 25.0-25.9,adult Preventative health care Routine general medical examination at a health care facility documented in this encounter Discontinued Medications Medication Sig Discontinue Reason Start Date End Da te LORazepam (ATIVAN) 1 mg tablet Take 1 tablet (1 mg total) by mouth 2 (two) times a day as needed for anxiety. Reorder 10/29/2017 11/26/2017 busPIRone (BUSPAR) 7.5 mg tablet TAKE 1 TABLET BY ORAL ROUTE 2 TIMES EVERY DAY Reorder 12/05/2014 11/26/2017 documented as of this encounter Orders Immunization/Injection Count Last Ordered Date First Ordered Date FLU VACCINE QUAD PRESV FREE 3 YRS & OLDER IM 1 11/26/2017 documented in this encounter Care Teams Transfer Driver Relationship Specialty Start Date End Date Rojelio Freed MD PCP - General 02/26/17 09/24/20 documented as of this encounter
--- OUTSIDE RECORDS SUMMARY | 2024-11-30 17:37 | XMS_ITS | Encounter Summary ---
Author Organization [facility] Medical Group Address [address] [facility] [address] [place] [address] Care Team Providers Care Customer Support Coordinator Name Role Phone Rojelio Freed MD Primary Care Provider Encounter Details Date Type Department Care Team (Late st Contact Info) Description 06/13/2018 Orders Only [facility] [address] [place] [address] Scanning, Provider Social History Tobacco Use Types Packs/Day Years Used Date Smoking Tobacco: Some Days Smokeless Tobacco: Never Alcohol Use Standard Drinks/Week Comments Yes 0 (1 standard drink = 0.6 oz pur e alcohol) Comments No Sex and Gender Information Value Date Recorded Sex Assigned at Not on file Legal Sex Female 3:28 AM TRANSITIONS RN CARE COORDINATOR Gender Identity Not on file Sexual Orientation Not on file documented as of this encounter Plan of Treatment Not on file documented as of this encounter Procedures Procedure Name Priority Date/Time Associated Diagnosis Comments CARDIOLOGY DOCUMENT SCAN 018 10:32 AM CDT documented in this encounter Results * SCAN - CARDIOLOGY (06/13/2018 10:32 AM CDT) Anatomical Region Laterality Modality Other us Provider Scanning [facility] CARDIAC SERVICES PROCEDURES Final Result documented in this encounter Visit Diagnoses Not on filedocumented in this encounter Care Teams Customer Support Coordinator Relationship Specialty Start Date End Date Rojelio Freed MD PCP - General 02/26/17 09/24/20 documented as of this encounter
--- OUTSIDE RECORDS SUMMARY | 2024-11-30 17:38 | XMS_ITS | Encounter Summary ---
Author Organization [facility] Healthcare Address [address] [place] [address] Care Team Providers Care Repair Clerk Name Role Phone Rojelio Freed MD Primary Care Provider Encounter Details Date Type Department Care Team (Late st Contact Info) Description 07/20/2015 7:36 PM CDT - 07/20/2015 11:02 PM CDT Hospital Encounter [facility] Evonne Mills MD [facility] [place] [address] Pleurisy Social History Tobacco Use Types Packs/Day Years Used Date Smoking Tobacco: Some Days Comments Unknown Sex and Gender Information Value Date Recorded Sex Assigned at Not on file 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 Gender Identity Not on file Sexual Orientation Not on file documented as of this encounter Medications at Time of Discharge busPIRone (BUSPAR) 7.5 mg tablet TAKE 1 TABLET BY ORAL ROUTE 2 TIMES EVERY DAY 60 11 12/05/2014 11/26/2017 LORazepam (ATIVAN) 0.5 mg tablet take 1 tablet by ORAL route 2 times every day as needed 60 5 11/01/2014 05/11/2017 documented as of this encounter Plan of Treatment Not on file documented as of this encounter Procedures Procedure Name Priority Date/Time Associated Diagnosis Comments CTA CHEST W WO CONTRAST Routine 07/20/20 15 10:31 PM CDT URINE CHORIONIC GONADOTROPIN (HCG) Routine 07/20/2015 9:50 PM CDT XR CHEST PA LATERAL 2 VIEWS Routine 07/20/2015 8:23 PM CDT BLOOD D-DIMER Routine 07/20/2015 8:18 PM CDT SERUM MAGNESIUM Routine 07/20/2015 8:18 PM CDT SERUM ESTIMATED GLOMERULAR FILTRATION RATE Routine 07/20/2015 8:18 PM CDT PLASMA TROPONIN-T Routine 07/20/2015 8:1 8 PM CDT PLASMA COMPREHENSIVE METABOLIC PANEL Routine 07/20/2015 8:18 PM CDT BLOOD CELL COUNT (CBC), MORPHOLOGIC EXAM Routine 07/20/2015 8:18 PM CDT BLOOD CELL MORPHOLOGIC EXAM Routine 07/20/2015 8:18 PM CDT ELECTROCARDIOGRAPHY (ECG) 07/20/2015 DISCHARGE LABORATORY CUMULATIVE REPORT 07/20/2015 documented in this encounter Results * CTA Chest W WO Contrast (07/20/2015 10:31 PM CDT) Anatomical Region Laterality Modality Chest N/A Computed Tomogra phy 07/20/2015 10:3 1 PM CDT Narrative 07/22/2015 6:[address] Angio Chest ?[id number] ??Acc#: ??[id number] DATE OF EXAM: ??Jul 20 2015 CLINICAL HISTORY: Chest pain. ??Elevated D-dimer. ??Cough. Elevated white count. ??Tobacco use. RESULT: Thin section axial images. ??120ml Optiray 350 was utilized for the procedure. No pulmonary arterial filling defect identified. ??No definite CT evidence of pulmonary embolism. Heart size is normal. ??No pericardial effusion is evident. ??No aortic aneurysm identified. ??No evidence of aortic dissection. ??Lungs are free of infiltrate. ??No pleural effusion is evident. ??Diminished attenuation of liver parenchyma consistent with hepatic steatosis. IMPRESSION: 1. NO DEFINITE EVIDENCE OF CT PULMONARY EMBOLISM. 2. NO INFILTRATE OR EFFUSION IDENTIFIED. 3. HEPATIC STEATOSIS. Report by Dr. Botello from [facility] on 07/21/15 at 10:48pm. Interpreting Physician: ??TRINA CARPIO M.D. ??Read on: ??Jul 21 2015 10:39A Transcribed by: ??mb ?? On: Jul 22 2015 ??2:05P Approved Electronically by: ??TRINA CARPIO M.D. ??on: ??Jul 22 2015 ??6:56P Attending: ??EVONNE MILLS Requesting: ??EVONNE MILLS Requesting Fax: ??-- Attending Fax: ??-- Attending ID: ??[id number] Requesting ID: ??[id number] Report To 1 ID: ??[id number] Report To 1 Name: ??EVONNE MILLS Report To 1 FAX: ??-- NextGen Order #: Procedure Note Provider, MD Marivel - 03/30/2017 CT Angio Chest [id number] Acc#: [id number] DATE OF EXAM: Jul 20 2015 CLINICAL HISTORY: Chest pain. Elevated D-dimer. Cough. Elevated white count. Tobaccouse. RESULT: Thin section axial images. 120ml Optiray 350 was utilized for theprocedure. No pulmonary arterial filling defect identified. No definiteCT evidence of pulmonary embolism. Heart size is normal. No pericardialeffusion is evident. No aortic aneurysm identified. No evidence ofaortic dissection. Lungs are free of infiltrate. No pleural effusion isevident. Diminished attenuation of liver parenchyma consistent withhepatic steatosis. IMPRESSION: 1. NO DEFINITE EVIDENCE OF CT PULMONARY EMBOLISM. 2. NO INFILTRATE OR EFFUSION IDENTIFIED. 3. HEPATIC STEATOSIS. Report by Dr. Botello from [facility] on 07/21/15at 10:48pm. Interpreting Physician: TRINA CARPIO M.D. Read on: Jul 21 2015 10:39A Transcribed by: martha On: Jul 22 2015 2:05P Approved Electronically by: TRINA CARPIO M.D. on: Jul 22 2015 6:56P Attending: EVONNE MILLS Requesting: EVONNE MILLS Requesting Fax: -- Attending Fax: -- Attending ID: [id number] Requesting ID: [id number] Report To 1 ID: [id number] Report To 1 Name: ODESSASARINAELADIOJOSEPHAj Report To 1 FAX: -- NextGen Order #: us Historical Provider IMG CT PROCEDURES Final R esult * Urine chorionic gonadotropin (HCG) (07/20/2015 9:50 PM CDT) HCG, ur Negative Negative HISTORICAL RESULTS Urine 07/20/2015 9:50 PM CDT us Historical Provider LAB BLOOD ORDERABLES Kaylin l Result HISTORICAL RESULTS * XR Chest Pa Lateral 2 Vw (07/20/2015 8:23 PM CDT) Anatomical Region Laterality Modality Body, Chest N/A Radiographic Sari ging 07/20/2015 8:23 PM CDT Narrative 07/22/2015 6:56 PM CDT XR Chest 2 Views ?[id number] ??Acc#: ??[id number] DATE OF EXAM: ??Jul 20 2015 CLINICAL HISTORY: Cough, congestion and chest pain. RESULT: PA and lateral projections obtained. ??No prior study available for a comparison. Cardiac size and pulmonary vascularity within the range of normal. ??Lungs are free of confluent infiltrates. Costophrenic angles are sharp. Minor curvature of the lower thoracic and upper to mid lumbar spine to the right supporting dextroscoliosis. IMPRESSION: 1. NO ACUTE PULMONARY DISEASE. Interpreting Physician: ??TRINA CARPIO M.D. ??Read on: ??Jul 21 2015 ??8:50A Transcribed by: ??martha ?? On: Jul 22 2015 ??2:02P Approved Electronically by: ??TRINA CARPIO M.D. ??on: ??Jul 22 2015 ??6:56P Attending: ??EVONNE MILLS Requesting: ??EVONNE MILLS Requesting Fax: ??-- Attending Fax: ??-- Attending ID: ??[id number] Requesting ID: ??[id number] Report To 1 ID: ??[id number] Report To 1 Name: ??LINA GEOVANNIAj Report To 1 FAX: ??-- NextGen Order #: Procedure Note Provider, MD Marivel - 03/30/2017 XR Chest 2 Views [id number] Acc#: [id number] DATE OF EXAM: Jul 20 2015 CLINICAL HISTORY: Cough, congestion and chest pain. RESULT: PA and lateral projections obtained. No prior study available for acomparison. Cardiac size and pulmonary vascularity within the range ofnormal. Lungs are free of confluent infiltrates. Costophrenic angles aresharp. Minor curvature of the lower thoracic and upper to mid lumbar spineto the right supporting dextroscoliosis. IMPRESSION: 1. NO ACUTE PULMONARY DISEASE. Interpreting Physician: TRINA CARPIO M.D. Read on: Jul 21 2015 8:50A Transcribed by: martha On: Jul 22 2015 2:02P Approved Electronically by: TRINA CARPIO M.D. on: Jul 22 2015 6:56P Attending: EVONNE MILLS Requesting: EVONNE MILLS Requesting Fax: -- Attending Fax: -- Attending ID: [id number] Requesting ID: [id number] Report To 1 ID: [id number] Report To 1 Name: EVONNE MILLS Report To 1 FAX: -- NextGen Order #: Historical Provider IMG XR PROCEDURES Final R esult * (ABNORMAL) Blood D-dimer (07/20/2015 8:18 PM CDT) D-dimer 0.77(H) 0.00 - 0.50 mcg/ml HISTORICAL RESULTS Comment: Interpretive Data Units of Measure = mcg/mL FEU The D-Dimer result should not be used as the sole indicator to rule in or exclude a diagnosis of Pulmonary Embolism or Deep Vein Thrombosis. Current interpretive data was last revised on 2014. Blood specimen (specimen) 07/20/2015 8:18 PM CDT Historical Provider LAB BLOOD ORDERABLES Kaylin murrieta Result HISTORICAL RESULTS * Plasma comprehensive metabolic panel (07/20/2015 8:18 PM CDT) Sodium 138 135 - 145 mmol/L HISTORICAL RESULTS K, pl 3.8 3.5 - 5.1 mmol/L HISTORICAL RESULTS Chloride 101 97 - 110 mmol/L HISTORICAL RESULTS CO2 25 22 - 32 mmol/L HISTORICAL RESULTS A. gap 16 8 - 16 mmol/L HISTORICAL RESULTS Glucose 89 70 - 199 mg/dl HISTORICAL RESULTS Comment: Interpretive Data Note:The glucose is assumed non fasting Fastin-99 mg/dL Random: ??70-199 mg/dL Either a fasting glucose > 126 mg/dL or a random glucose > 200 mg/dL plus symptoms is diagnostic of diabetes when confirmed on another day. Fasting values > 100 mg/dL but < 125 mg/dL are diagnostic of impaired fasting glucose. Current interpretive data was last revised on 2015. BUN 8.4 8.0 - 25.0 mg/dl HISTORICAL RESULTS Creatinine 0.71 0.60 - 1.10 mg/dl HISTORICAL RESULTS BUN/creat ratio 12 10 - 20 HIST ORICAL RESULTS Calcium 8.7 8.6 - 10.2 mg/dl HISTORICAL RESULTS Protein, sr 7.5 6.0 - 8.4 g/dl HISTORICAL RESULTS Alb 4.4 3.6 - 5.0 g/dl HISTORICAL RESULTS Alb/glob ratio 1.4 1.1 - 1.8 ratio HISTORICAL RESULTS Alk phos 72 40 - 130 Units/L HISTORICAL RESULTS ALT 27 5 - 45 Units/L HISTORICAL RESULTS AST 24 10 - 40 Units/L HISTORICAL RESULTS Bilirubin 0.3 <=1.2 mg/dl HISTORICAL RESULTS Plasma 07/20/2015 8:18 PM CDT us Historical Provider LAB BLOOD ORDERABLES Kaylin l Result HISTORICAL RESULTS * Plasma troponin-T (07/20/2015 8:18 PM CDT) Troponin T <0.01 0.00 - 0.06 ng/ml HISTORICAL RESULTS Comment: Interpretive Data Troponin table: ? Negative ? 0.00-0.06 ng/ml ? Indeterminate ?0.07-0.10 ng/ml ? Consistent with Myocardial Injury ?Greater than 0.10 ng/ml ?? Current interpretive data was last revised on 2015 Plasma 07/20/2015 8:18 PM CDT Historical Provider MD LAB BLOOD ORDERABLES Kaylin l Result Performing Organization Address [facility] de Phone Number HISTORICAL RESULTS * Serum magnesium (07/20/2015 8:18 PM CDT) Pathologist [facility] Magnesium 1.6 1.6 - 2.4 mg/dl HISTORICAL RESULTS Serum 07/20/2015 8:18 PM CDT Historical Provider MD LAB BLOOD ORDERABLES Kaylin l Result Performing Organization Address [facility] de Phone Number HISTORICAL RESULTS * (ABNORMAL) Blood cell morphologic exam (07/20/2015 8:18 PM CDT) Neutrophils 78.9 44.0 - 80.0 % HISTORICAL RESULTS Immature granulocytes 0.4 0.0 - 1.0 % HISTORICAL RESULTS Lymphocytes 11.5(L) 13.0 - 44.0 % HISTORICAL RESULTS Monos 6.3 2.0 - 11.0 % HISTORICAL RESULTS Eosinophils 2.5 0.0 - 6.0 % HISTORICAL RESULTS Basophils 0.4 0.0 - 3.0 % HISTORICAL RESULTS Neutrophils, abs 14.3(H) 1.6 - 7.0 K/cumm HISTORICAL RESULTS Immature granulocyte, abs 0.1 0.0 - 0.2 K/cumm HISTORICAL RESULTS Lymphocytes, abs 2.1 0.5 - 4.3 K/cumm HISTORICAL RESULTS Monocytes, absolute 1.1(H) 0.1 - 1.0 K/cumm HISTORICAL RESULTS Eosinophils, abs 0.5 0.0 - 0.6 K/cumm HISTORICAL RESULTS Basophils, abs 0.1 0.0 - 0.3 K/cumm HISTORICAL RESULTS Blood specimen (specimen) 07/20/2015 8:18 PM CDT Result [facility] Historical Provider LAB BLOOD ORDERABLES Kaylin murrieta Result Performing Organization Address [facility] de Phone Number HISTORICAL RESULTS * (ABNORMAL) Blood cell count (CBC), morphologic exam (07/20/2015 8:18 PM CDT) WBC 18.1(H) 3.8 - 9.8 K/cumm HISTORICAL RESULTS RBC 4.13 3.90 - 5.00 M/cumm HISTORICAL RESULTS Hgb 13.1 12.1 - 15.1 g/dl HISTORICAL RESULTS Hct 38.7 36.1 - 44.3 % HISTORICAL RESULTS MCV 93.7 80.0 - 100.0 fl HISTORICAL RESULTS MCH 31.7 26.7 - 33.7 pg HISTORICAL RESULTS MCHC 33.9 32.7 - 36.0 g/dl HISTORICAL RESULTS Rdw 12.7 11.5 - 14.6 % HISTORICAL RESULTS Platelets 240 140 - 440 K/cumm HISTORICAL RESULTS MPV 12.1(H) 8.0 - 12.0 fl HISTORICAL RESULTS NRBC 0.0 0.0 - 0.0 % HISTORIC AL RESULTS NRBC, abs 0.00 0.00 - 0.00 K/cumm HISTORICAL RESULTS Blood specimen (specimen) 07/20/2015 8:18 PM CDT Result [facility] Historical Provider LAB BLOOD ORDERABLES Kaylin glenny Result Performing Organization Address [facility] de Phone Number HISTORICAL RESULTS * Serum estimated glomerular filtration rate (07/20/2015 8:18 PM CDT) eGFR >60 ml/min/1.7 3 m2 HISTORICAL RESULTS Comment: Interpretation of Estimated GFR (eGFR): Normal ?>/= 60 mL/min/1.73m2 Possible Chronic Kidney Disease ??15 - 59 mL/min/1.73m2 Possible Kidney Failure ?< 15 ??mL/min/1.73m2 If -Bolivian multiply value by 1.16. ??Estimated glomerular filtration rate is determined by the CKD-EPI equation recommended by the National Kidney Foundation (KDIGO 2012 Clinical Practice Guideline for the Evaluation and Management of Chronic Kidney Disease. ??Kidney Intnl Suppl Nov 2012;3:1). ??The CKD-EPI equation should not be used in acute renal failure or acute kidney injury and is not valid in children. Serum 07/20/2015 8:18 PM CDT Historical Provider LAB BLOOD ORDERABLES Kaylin l Result HISTORICAL RESULTS * DISCHARGE LABORATORY CUMULATIVE REPORT (07/20/2015) Narrative 07/20/2015 Ordered by an unspecified provider. [facility] Provider LAB BLOOD ORDERABLES Kaylin l Result * ELECTROCARDIOGRAPHY (ECG) (07/20/2015) Narrative 07/20/2015 Ordered by an unspecified provider. Historical Provider ECG ORDERABLES Final Res ult documented in this encounter Visit Diagnoses Diagnosis Pleurisy Pleurisy without mention of effusion or current tuberculosis documented in this encounter Care Teams Repair Clerk Relationship Specialty Start Date End Date Rojelio Freed MD PCP - General 07/18/15 02/25/17 documented as of this encounter
--- OUTSIDE RECORDS SUMMARY | 2024-11-30 17:38 | XMS_ITS | Encounter Summary ---
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 - 01/13/2008 11:59 PM DIRECTOR OF STRATEGIC SOURCING Hospital Encounter [facility] Carlo Llamas MD [address] [facility] [address] [place] [address] Social History Tobacco Use Types Packs/Day Years Used Date Smoking Tobacco: Never Assessed Comments Unknown Sex and Gender Information Value Date Recorded Sex Assigned at Not on file 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
--- OUTSIDE RECORDS SUMMARY | 2024-11-30 17:38 | XMS_ITS | Encounter Summary ---
Author Organization [facility] Healthcare Address [address] [place] [address] Care Team Providers Care Stock Fitter Name Role Phone Rojelio Freed MD Primary Care Provider Encounter Details Date Type Department Care Team (Late st Contact Info) Description 08/02/2015 4:51 PM CDT - 08/02/2015 11:59 PM CDT Hospital Encounter [facility] Rojelio Freed MD [address] [place] [address] [address] Leukocytosis Social History Tobacco Use Types Packs/Day Years Used Date Smoking Tobacco: Some Days Comments Unknown Sex and Gender Information Value Date Recorded Sex Assigned at Not on file 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 Historical Provider LAB BLOOD ORDERABLES Kaylin l Result * Blood cell morphologic exam (08/02/2015 5:00 PM CDT) Immature granulocytes 0.3 0.0 - 1.0 % HISTORICAL RESULTS Neutrophils 54.7 44.0 - 80.0 % HISTORICAL RESULTS Lymphocytes 31.8 13.0 - 44.0 % HISTORICAL RESULTS Monos 8.0 2.0 - 11.0 % HISTORICAL RESULTS Eosinophils 4.4 0.0 - 6.0 % HISTORICAL RESULTS Basophils 0.8 0.0 - 3.0 % HISTORICAL RESULTS Neutrophils, abs 6.6 1.6 - 7.0 K/cumm HISTORICAL RESULTS Immature granulocyte, abs 0.0 0.0 - 0.2 K/cumm HISTORICAL RESULTS Lymphocytes, abs 3.9 0.5 - 4.3 K/cumm HISTORICAL RESULTS Monocytes, absolute 1.0 0.1 - 1.0 K/cumm HISTORICAL RESULTS Eosinophils, abs 0.5 0.0 - 0.6 K/cumm HISTORICAL RESULTS Basophils, abs 0.1 0.0 - 0.3 K/cumm HISTORICAL RESULTS Blood specimen (specimen) 08/02/2015 5:00 PM CDT Historical Provider LAB BLOOD ORDERABLES Kaylin l Result HISTORICAL RESULTS * (ABNORMAL) Blood cell count (CBC), morphologic exam (08/02/2015 5:00 PM CDT) WBC 12.2(H) 3.8 - 9.8 K/cumm HISTORICAL RESULTS RBC 4.12 3.90 - 5.00 M/cumm HISTORICAL RESULTS Hgb 12.9 12.1 - 15.1 g/dl HISTORICAL RESULTS Hct 38.9 36.1 - 44.3 % HISTORICAL RESULTS MCV 94.4 80.0 - 100.0 fl HISTORICAL RESULTS MCH 31.3 26.7 - 33.7 pg HISTORICAL RESULTS MCHC 33.2 32.7 - 36.0 g/dl HISTORICAL RESULTS Rdw 12.9 11.5 - 14.6 % HISTORICAL RESULTS Platelets 260 140 - 440 K/cumm HISTORICAL RESULTS MPV 12.1(H) 8.0 - 12.0 fl HISTORICAL RESULTS NRBC 0.0 0.0 - 0.0 % HISTORIC AL RESULTS NRBC, abs 0.00 0.00 - 0.00 K/cumm HISTORICAL RESULTS Blood specimen (specimen) 08/02/2015 5:00 PM CDT us Historical Provider LAB BLOOD ORDERABLES Kaylin l Result HISTORICAL RESULTS documented in this encounter Visit Diagnoses Diagnosis Leukocytosis Leukocytosis, unspecified documented in this encounter Care Teams Stock Fitter Relationship Specialty Start Date End Date Rojelio Freed MD PCP - General 07/18/15 02/25/17 documented as of this encounter
--- OUTSIDE RECORDS SUMMARY | 2024-11-30 17:38 | XMS_ITS | Encounter Summary ---
Author Organization [facility] Healthcare Address [address] [place] [address] Care Team Providers Care Salon Stylist Name Role Phone Unavailable Primary Care Provider Unavailabl e Encounter Details Date Type Department Care Team (Late st Contact Info) Description 02/25/2012 1:12 PM CDT - 02/25/2012 11:59 PM CDT Hospital Encounter [facility] Rudy Garsia MD [address] [facility] [address] [facility] [address] [place] [address] Carmen Macedo NP [address] [place] [address] Screening for malignant neoplasm of cervix Social History Tobacco Use Types Packs/Day Years Used Date Smoking Tobacco: Never Assessed Comments Unknown Sex and Gender Information Value Date Recorded Sex Assigned at Not on file 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
--- OUTSIDE RECORDS SUMMARY | 2024-11-30 17:38 | XMS_ITS | Encounter Summary ---
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
--- OUTSIDE RECORDS SUMMARY | 2024-11-30 17:38 | XMS_ITS | Encounter Summary ---
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
--- OUTSIDE RECORDS SUMMARY | 2024-11-30 17:38 | XMS_ITS | Encounter Summary ---
Author Organization 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 CORRECTED FROM Positive ON 02/26/15 AT 1040 BY [id number] Results suggest response to immunization or prior exposure to the virus. REFERENCE VALUE Vaccinated: Positive (>=1.0 AI) Unvaccinated: Negative (<=0.7 AI) Rubella ab 2.9 HISTORICA L RESULTS Serum 02/18/2015 10:4 5 AM CDT Historical Provider LAB BLOOD ORDERABLES Kaylin l Result Performing Organization Address [facility] Co de Phone Number HISTORICAL RESULTS * Serum Hepatitis B surface ab, quantitative (02/18/2015 5:45 AM CDT) HBV surface ab, quant >1000 mIUnits/ml HISTORICAL RESULTS Serum 02/18/2015 5:45 AM CDT Narrative HISTORICAL RESULTS - 02/20/2015 6:00 AM CDT Patient has immunity to hepatitis B virus. Effective April 09, 2014 this test is being performed using the [employer] Chemilumines[employer] method. Quantitative results from this method should not be used interchangeably with other methods. [facility] [address] [place], [place] ??[phone] Director: DENNIS YOUNGDO,MPH Historical Provider LAB BLOOD ORDERABLES Kaylin l Result Performing Organization Address [facility] Co de Phone Number HISTORICAL RESULTS documented in this encounter Visit Diagnoses Not on filedocumented in this encounter Care Teams Bar Attendant Relationship Specialty Start Date End Date Rojelio Freed MD PCP - General 12/07/14 07/17/15 documented as of this encounter
--- OUTSIDE RECORDS SUMMARY | 2024-11-30 17:38 | XMS_ITS | Encounter Summary ---
Author Organization [facility] Address [address] [place] [address] Care Team Providers Care Special Certificate Dictator Name Role Phone Rojelio Freed MD Primary Care Provider Reason for Visit * Reason Comments Rash Encounter Details Date Type Department Care Team (Late st Contact Info) Description 08/04/2017 10:00 AM CDT Office Visit [facility] [address] [place] [address] Raul Lofton PA [address] [facility] [address] [place] [address] BMI 26.0-26.9,adult (Primary Dx); Pharyngitis due to Streptococcus species; Dermatitis; Tobacco use disorder Social History Tobacco Use Types Packs/Day Years Used Date Smoking Tobacco: Some Days Comments Unknown Sex and Gender Information Value Date Recorded Sex Assigned at Not on file Legal Sex Female 3:28 AM CHILD THERAPIST Gender Identity Not on file Sexual Orientation Not on file documented as of this encounter Last Filed Vital Signs Vital Sign Reading Time Taken Comments Blood Pressure 130/86 08/04/2017 10:06 AM CDT Pulse 78 08/04/2017 10:06 AM CDT Temperature - - Respiratory Rate 16 08/04/2017 10:06 AM CDT Oxygen Saturation - - Inhaled Oxygen Concentration - - Weight 65.3 kg (144 lb) 08/04/2017 10:06 AM CDT Height 157.5 cm (5' 2.01 ) 08/04/2017 10:06 AM C DT Body Mass Index 26.33 08/04/2017 10:06 AM CDT documented in this encounter Ordered Prescriptions Prescription Sig Dispense Quantity Refills Last Filled Start Date End Date cephalexin (KEFLEX) 500 mg capsule Take 1 capsule (500 mg total) by mouth 3 (three) times a day for 10 days. 30 capsule 08/04/2017 7 documented in this encounter Progress Notes * Raul Lofton, KAZ - 08/04/2017 10:00 AM CDT Subjective/Objective Patient ID: Irma Seymour is a 37 y.o. female. Chief Complaint Rash HPI Pt notes itchy rash that started yesterday, after sleeping at a friend's house. It is not painful. No one else has a rash. Lesions located on arms, R>L, also one on post neck, R foot and knee, andR post thigh. None on face, scalp, abd, back. Not all of them are itchy. Also she notes a ST that started yesterday after the rash. It is so far, mild but can perhaps feel a little drainage. No coughor runny nose. No f/c. So far she has tried zyrtec, Ib, HC cream topically,e ach to minimal relief. No preg or .Occ smoker. Review of Systems Constitutional: Negative for chills, diaphoresis, fatigue and fever. HENT: Positive for postnasal drip and sore throat. Negative for ear pain, hearing loss, rhinorrhea,sinus pressure and trouble swallowing. Eyes: Negative for discharge. Respiratory: Negative for cough, shortness of breath and wheezing. Cardiovascular: Negative for chest pain. Gastrointestinal: Negative for abdominal pain, diarrhea, nausea and vomiting. Skin: Positive for rash (see HPI). BP 130/86 (BP Location: Right arm, Patient Position: Sitting) Pulse 78 Resp 16 Ht 157.5 cm (5' 2.01 ) Wt 65.3 kg (144 lb) BMI 26.33 kg/m?? Physical Exam Constitutional: She appears well-developed and well-nourished. No distress. HENT: Right Ear: External ear normal. Left Ear: External ear normal. Mouth/Throat: No oropharyngeal exudate (1+ tonsillar enlargement, w/ mild erythema but no exudate .no halitosis). Neck: Normal range of motion. Neck supple. No thyromegaly present. Cardiovascular: Normal rate, regular rhythm and normal heart sounds. No murmur heard. Pulmonary/Chest: Effort normal and breath sounds normal. No respiratory distress. She has no wheezes. She has no rales. Lymphadenopathy: She has no cervical adenopathy. Skin: Rash noted. Patient has scattered, nonlocalized slightly raised papules, which vary in size from half to 1 cm. Some with the centralized small blister and some on the arms with excoriations. No open sores or wounds though. There are located predominantly on the right forearm but also 1 of the posterior neck right dorsal foot and right knee. Laboratory data: Rapid strep screen was positive. Skin scraping after informed consent obtained and didn't show any lesions, scabies. Assessment/Plan Diagnoses and all orders for this visit: 1. BMI 26.0-26.9,adult (Primary) 2. Pharyngitis due to Streptococcus species Comments: Cephalexin 500 t.i.d., take till gone. Warm water gargles ibuprofen. Follow-up improved. Recommend close family members with symptoms also see their doctor Orders: - POCT rapid strep A 3. Dermatitis Comments: Hydrocortisone cream topically and Benadryl, beware of side-effects. Follow-up if not improved 4. Tobacco use disorder Comments: The patient was advised to quit smoking; the risks of continued tobacco use discussed. Other orders - cephalexin (KEFLEX) 500 mg capsule; Take 1 capsule (500 mg total) by mouth 3 (three) times a day for 10 days. Disposition: Side effects, risks, interactions reviewed with patient. Indications for testing discussed. Any further problems to contact us. She was told what to look out for and verbalized understanding. The patient was given the opportunity to have all questions answered today and was in agreement with the plan of care. Cosigned by Rojelio Freed MD at 08/05/2017 5:53 PM CDT documented in this encounter Plan of Treatment Not on file documented as of this encounter Procedures Procedure Name Priority Date/Time Associated Diagnosis Comments POCT RAPID STREP Routine 08/04/2017 12:5 6 PM CDT Pharyngitis due to Streptococcus species documented in this encounter Results * (ABNORMAL) POCT rapid strep A (08/04/2017 12:56 PM CDT) Rapid Strep A, POC Positive Swab 08/04/2017 12:5 6 PM CDT Raul MCCURDY POINT OF CARE TEST LANCE BETANCOURT Final Result documented in this encounter Visit Diagnoses Diagnosis BMI 26.0-26.9,adult- Primary Pharyngitis due to Streptococcus species Dermatitis Contact dermatitis and other eczema, due to unspecified cause Tobacco use disorder documented in this encounter Care Teams Special Certificate Dictator Relationship Specialty Start Date End Date Rojelio Freed MD PCP - General 02/26/17 09/24/20 documented as of this encounter
--- OUTSIDE RECORDS SUMMARY | 2024-11-30 17:38 | XMS_ITS | Encounter Summary ---
Author Organization [facility] Address [address] [place] [address] Care Team Providers Care Pulmonologist Name Role Phone Unavailable Primary Care Provider Unavailabl e Encounter Details Date Type Department Care Team (Late st Contact Info) Description 02/02/2008 4:28 PM AUTOMOBILE GLASS TECHNICIAN - 02/02/2008 11:59 PM AUTOMOBILE GLASS TECHNICIAN Hospital Encounter [facility] Social History Tobacco Use Types Packs/Day Years Used Date Smoking Tobacco: Never Assessed Comments Unknown Sex and Gender Information Value Date Recorded Sex Assigned at Not on file Legal Sex Female 3:28 AM AUTOMOBILE GLASS TECHNICIAN Gender Identity Not on file Sexual Orientation Not on file documented as of this encounter Plan of Treatment Not on file documented as of this encounter Visit Diagnoses Not on filedocumented in this encounter
--- OUTSIDE RECORDS SUMMARY | 2024-11-30 17:38 | XMS_ITS | Encounter Summary ---
Author Organization [facility] Address [address] [place] [address] Care Team Providers Care Refund Clerk Name Role Phone Rojelio Freed MD Primary Care Provider Reason for Visit * Reason Comments Anxiety ER follow up Encounter Details Date Type Department Care Team (Late st Contact Info) Description 10/29/2017 11:15 AM JOURNEYMAN PRESS OPERATOR Office Visit [facility] [address] [place] [address] [address] [place] [address] Palak Baker, COPY CAMERA OPERATOR [address] [place] [address] [address] Anxiety (Primary Dx); BMI 26.0-26.9,adult Social History Tobacco Use Types Packs/Day Years Used Date Smoking Tobacco: Some Days Smokeless Tobacco: Current Comments Unknown Sex and Gender Information Value Date Recorded Sex Assigned at Not on file Legal Sex Female 3:28 AM JOURNEYMAN PRESS OPERATOR Gender Identity Not on file Sexual Orientation Not on file documented as of this encounter Last Filed Vital Signs Vital Sign Reading Time Taken Comments Blood Pressure 120/80 10/29/2017 11:32 AM JOURNEYMAN PRESS OPERATOR Pulse 74 10/29/2017 11:32 AM JOURNEYMAN PRESS OPERATOR Temperature - - Respiratory Rate 16 10/29/2017 11:32 AM JOURNEYMAN PRESS OPERATOR Oxygen Saturation - - Inhaled Oxygen Concentration - - Weight 63.5 kg (140 lb) 10/29/2017 11:32 AM JOURNEYMAN PRESS OPERATOR Height 157.5 cm (5' 2.01 ) 10/29/2017 11:[address] Body Mass Index 25.6 10/29/2017 11:32 AM JOURNEYMAN PRESS OPERATOR documented in this encounter Ordered Prescriptions Prescription Sig Dispense Quantity Refills Last Filled Start Date End Date LORazepam (ATIVAN) 1 mg tablet Take 1 tablet (1 mg total) by mouth 2 (two) times a day as needed for anxiety. 60 tablet 1 10/29/2017 11/26/2017 documented in this encounter Progress Notes * Palak Baker, COPY CAMERA OPERATOR - 10/29/2017 11:15 AM CST Subjective/Objective Patient ID: Irma Seymour is a 37 y.o. female. Chief Complaint Anxiety (ER follow up ) HPI Maikel present today for an ER follow up and she was having a panic attack last night and was concerning her enough to which it presented her to ER. Previously she has seen Psychiatry for her anxiety before coming to Dr. Freed to which she has tried a multitude of different medications for prevention of anxiety and the 1 that she is taking now is BuSpar 7.5 mg that she notes to be taking half a tablet twice daily for management this time. She is also taking lorazepam half a tablet twice daily for acute anxiety relief but has been taking 1 full tablet twice daily for the last few weeks due to increased anxiety she recently lost her job and with the upcoming holidays she is getting quiteconcerned financially. She is also currently with her parents and her boyfriend lives far away all of this is seeming to cause these increase panic attacks/worsening anxiety. Review of Systems Constitutional: Negative for activity change, diaphoresis, fatigue, fever and unexpected weight change. Respiratory: Negative for apnea, cough and shortness of breath. Cardiovascular: Negative for chest pain, palpitations and leg swelling. Gastrointestinal: Negative for abdominal pain, diarrhea, nausea and vomiting. Genitourinary: Negative for difficulty urinating, dysuria and hematuria. Musculoskeletal: Negative for arthralgias. Skin: Negative for rash. Neurological: Negative for dizziness, light-headedness and headaches. Psychiatric/Behavioral: Please refer to HPI Physical Exam Constitutional: She is oriented to person, place, and time. She appears well- developed and well-nourished. HENT: Head: Normocephalic and atraumatic. Eyes: Pupils are equal, round, and reactive to light. Neck: Normal range of motion. Neck supple. Cardiovascular: Normal rate, regular rhythm, normal heart sounds and intact distal pulses. Exam reveals no gallop. No murmur heard. Pulmonary/Chest: Effort normal and breath sounds normal. No respiratory distress. She has no wheezes. Abdominal: Soft. Bowel sounds are normal. Musculoskeletal: Normal range of motion. Neurological: She is alert and oriented to person, place, and time. Skin: Skin is warm and dry. Psychiatric: She has a normal mood and affect. Her behavior is normal. Assessment/Plan Diagnoses and all orders for this visit: Anxiety (Primary) Assessment & Plan: Anxiety disorder does not seem to be well controlled all the BuSpar at this time but she refused tochanged anything else at this current time based upon history of not responding well any other medications. They did give for Vistaril in ER that she noted made her extremely drowsy so will avoid that at this time. Will keep from the BuSpar 7.5 twice daily also increase her lorazepam to take 1 table t b.i.d. and then wean down after 2 [...] all of this further will see her herein a month regarding condition and if there is no improvement we will consult Psychiatry. BMI 26.0-26.9,adult Other orders - LORazepam (ATIVAN) 1 mg tablet; Take 1 tablet (1 mg total) by mouth 2 (two) times a day as neededfor anxiety. Disposition: All past family, medical, and social history were reviewed and updated in the EMR as well as current medications. Pt offered no further complaints and was in agreement with plan of care.They were advised regarding dosage, use, and side effects of medications. Pt was advised to f/u in office with any worsening or little improvement of symptoms until next scheduled office visit. Patient was advised to follow up regarding the results of testing ordered in office today should hear from us regarding the results in 2-3 business days Cosigned by Rojelio Freed MD at 10/29/2017 4:58 PM JOURNEYMAN PRESS OPERATOR NEYMAN PRESS OPERATOR NEYMAN PRESS OPERATOR documented in this encounter Miscellaneous Notes * Assessment & Plan Note - Palak Baker NP - 10/29/2017 12:21 PM JOURNEYMAN PRESS OPERATOR Associated Problem(s): Anxiety Anxiety disorder does not seem to be well controlled all the BuSpar at this time but she refused tochanged anything else at this current time based upon history of not responding well any other medications. They did give for Vistaril in ER that she noted made her extremely drowsy so will avoid that at this time. Will keep from the BuSpar 7.5 twice daily also increase her lorazepam to take 1 table t b.i.d. and then wean down after 2 [...] all of this further will see her herein a month regarding condition and if there is no improvement we will consult Psychiatry. NEYMAN PRESS OPERATOR documented in this encounter Plan of Treatment Not on file documented as of this encounter Visit Diagnoses Diagnosis Anxiety- Primary Anxiety state, unspecified BMI 26.0-26.9,adult documented in this encounter Discontinued Medications Medication Sig Discontinue Reason Start Date End Da te LORazepam (ATIVAN) 0.5 mg tablet Take 1 tablet (0.5 mg total) by mouth every 12 (twelve) hours as needed for anxiety (for anxiety). 05/11/2017 10/29/2017 documented as of this encounter Care Teams Refund Clerk Relationship Specialty Start Date End Date Rojelio Freed MD PCP - General 02/26/17 09/24/20 documented as of this encounter
--- OUTSIDE RECORDS SUMMARY | 2024-11-30 17:38 | XMS_ITS | Encounter Summary ---
Author Organization [facility] Healthcare Address [address] [place] [address] Care Team Providers Care Land Law Examiner Name Role Phone Unavailable Primary Care Provider Unavailabl e Encounter Details Date Type Department Care Team (Late st Contact Info) Description 03/19/2008 5:51 PM CDT - 03/21/2008 5:45 PM CDT Hospital Encounter [facility]INCON[facility]lo Anderson MD [address] [place] [address] Social History Tobacco Use Types Packs/Day Years Used Date Smoking Tobacco: Never Assessed Comments Unknown Sex and Gender Information Value Date Recorded Sex Assigned at Not on file Legal Sex Female 3:28 AM ELECTROMECHANICAL EQUIPMENT ASSEMBLER Gender Identity Not on file Sexual Orientation Not on file documented as of this encounter Plan of Treatment Not on file documented as of this encounter Visit Diagnoses Not on filedocumented in this encounter
--- OUTSIDE RECORDS SUMMARY | 2024-11-30 17:38 | XMS_ITS | Encounter Summary ---
Author Organization [facility] Healthcare Address [address] [place] [address] Care Team Providers Care Bus Driver Name Role Phone Unavailable Primary Care Provider Unavailabl e Encounter Details Date Type Department Care Team (Late st Contact Info) Description 12/23/2007 9:18 AM FIRE CONTROL TECHNICIAN B - 12/23/2007 11:59 PM FIRE CONTROL TECHNICIAN B Hospital Encounter [facility] Watson Social History Tobacco Use Types Packs/Day Years Used Date Smoking Tobacco: Never Assessed Comments Unknown Sex and Gender Information Value Date Recorded Sex Assigned at Not on file Legal Sex Female 3:28 AM FIRE CONTROL TECHNICIAN B Gender Identity Not on file Sexual Orientation Not on file documented as of this encounter Plan of Treatment Not on file documented as of this encounter Visit Diagnoses Not on filedocumented in this encounter
--- OUTSIDE RECORDS SUMMARY | 2024-11-30 17:38 | XMS_ITS | Encounter Summary ---
Author Organization [facility] Healthcare Address [address] [place] [address] Care Team Providers Care Railroad Car Cleaner Name Role Phone Rojelio Freed MD Primary Care Provider Encounter Details Date Type Department Care Team (Late st Contact Info) Description 10/28/2017 4:29 PM FISH PACKER - 10/28/2017 5:57 PM FISH PACKER Emergency [facility] [address] [place] [address] Porter Delgado MD [address] [address] Discharge Disposition: Discharge to home or self care Social History Tobacco Use Types Packs/Day Years Used Date Smoking Tobacco: Some Days Comments Unknown Sex and Gender Information Value Date Recorded Sex Assigned at Not on file Legal Sex Female 3:28 AM FISH PACKER Gender Identity Not on file Sexual Orientation Not on file documented as of this encounter Medications at Time of Discharge naproxen (NAPROSYN,ALEVE) 500 mg tablet Take 1 tablet (500 mg total) by mouth 2 (two) times a day as needed for pain (pain). 60 tablet 09/01/2017 11/30/2017 busPIRone (BUSPAR) 7.5 mg tablet TAKE 1 TABLET BY ORAL ROUTE 2 TIMES EVERY DAY 60 11 12/05/2014 11/26/2017 LORazepam (ATIVAN) 0.5 mg tablet Take 1 tablet (0.5 mg total) by mouth every 12 (twelve) hours as needed for anxiety (for anxiety). 60 tablet 5 05/11/2017 10/29/2017 documented as of this encounter Discharge Disposition Disposition Code Departure Means Destination Discharge to home or self care documented in this encounter Plan of Treatment Not on file documented as of this encounter Visit Diagnoses Not on filedocumented in this encounter Care Teams Railroad Car Cleaner Relationship Specialty Start Date End Date Rojelio Freed MD PCP - General 02/26/17 09/24/20 documented as of this encounter
--- OUTSIDE RECORDS SUMMARY | 2024-11-30 17:38 | XMS_ITS | Encounter Summary ---
Author Organization [facility] Healthcare Address [address] [place] [address] Care Team Providers Care Tariff Publishing Agent Name Role Phone Unavailable Primary Care Provider Unavailabl e Encounter Details Date Type Department Care Team (Late st Contact Info) Description 10/11/2007 9:26 AM DIRECTOR E LEARNING - 10/11/2007 11:59 PM DIRECTOR E LEARNING Hospital Encounter [facility] CLINHoney Bowser Social History Tobacco Use Types Packs/Day Years Used Date Smoking Tobacco: Never Assessed Comments Unknown Sex and Gender Information Value Date Recorded Sex Assigned at Not on file Legal Sex Female 3:28 AM DIRECTOR E LEARNING Gender Identity Not on file Sexual Orientation Not on file documented as of this encounter Plan of Treatment Not on file documented as of this encounter Visit Diagnoses Not on filedocumented in this encounter
--- OUTSIDE RECORDS SUMMARY | 2024-11-30 17:38 | XMS_ITS | Encounter Summary ---
Author Organization [facility] Healthcare Address [address] [place] [address] Care Team Providers Care Internet Sales Director Name Role Phone Unavailable Primary Care Provider Unavailabl e Encounter Details Date Type Department Care Team (Late st Contact Info) Description 08/29/2007 10:38 PM CDT - 08/29/2007 11:59 PM CDT Hospital Encounter [facility] Social History Tobacco Use Types Packs/Day Years Used Date Smoking Tobacco: Never Assessed Comments Unknown Sex and Gender Information Value Date Recorded Sex Assigned at Not on file Legal Sex Female 3:28 AM PARTS AND SERVICE MANAGER Gender Identity Not on file Sexual Orientation Not on file documented as of this encounter Plan of Treatment Not on file documented as of this encounter Visit Diagnoses Not on filedocumented in this encounter
--- OUTSIDE RECORDS SUMMARY | 2024-11-30 17:38 | XMS_ITS | Encounter Summary ---
Author Organization [facility] Healthcare Address [address] [place] [address] Care Team Providers Care Stockroom Associate Name Role Phone Unavailable Primary Care Provider Unavailabl e Encounter Details Date Type Department Care Team (Late st Contact Info) Description 08/30/2007 9:24 AM CDT - 08/30/2007 11:59 PM CDT Hospital Encounter [facility] Honey Watson Social History Tobacco Use Types Packs/Day Years Used Date Smoking Tobacco: Never Assessed Comments Unknown Sex and Gender Information Value Date Recorded Sex Assigned at Not on file Legal Sex Female 3:28 AM COMPLIANCE ADMINISTRATOR Gender Identity Not on file Sexual Orientation Not on file documented as of this encounter Plan of Treatment Not on file documented as of this encounter Visit Diagnoses Not on filedocumented in this encounter
--- OUTSIDE RECORDS SUMMARY | 2024-11-30 17:38 | XMS_ITS | Encounter Summary ---
Author Organization [facility] Address [address] [place] [address] Care Team Providers Care Associate Director Regulatory Affairs Name Role Phone Rojelio Freed MD Primary Care Provider Reason for Visit * Reason Comments Knee Pain Encounter Details Date Type Department Care Team (Late st Contact Info) Description 09/01/2017 9:00 AM CDT Office Visit [facility] [address] [place] [address] [address] [place] [address] Palak Baker, POLICE SPECIALIST [address] [place] [address] [address] BMI 26.0-26.9,adult (Primary Dx); Insect bite of left lower extremity, initial encounter Social History Tobacco Use Types Packs/Day Years Used Date Smoking Tobacco: Some Days Comments Unknown Sex and Gender Information Value Date Recorded Sex Assigned at Not on file 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 Gender Identity Not on file Sexual Orientation Not on file documented as of this encounter Last Filed Vital Signs Vital Sign Reading Time Taken Comments Blood Pressure 118/80 09/01/2017 9:12 AM CDT Pulse 76 09/01/2017 9:12 AM CDT Temperature - - Respiratory Rate 16 09/01/2017 9:12 AM CDT Oxygen Saturation - - Inhaled Oxygen Concentration - - Weight 64.4 kg (142 lb) 09/01/2017 9:12 AM CDT Height - - Body Mass Index 25.96 08/04/2017 10:06 AM CDT documented in this encounter Ordered Prescriptions Prescription Sig Dispense Quantity Refills Last Filled Start Date End Date naproxen (NAPROSYN,ALEVE) 500 mg tablet Take 1 tablet (500 mg total) by mouth 2 (two) times a day as needed for pain (pain). 60 tablet 09/01/2017 11/30/2017 sulfamethoxazole-t rimethoprim (BACTRIM,SEPTRA) 800-160 mg per tablet Take 1 tablet by mouth 2 (two) times a day for 10 days. 20 tablet 09/01/2017 09/11/2017 documented in this encounter Progress Notes * Palak Baker, POLICE SPECIALIST - 09/01/2017 9:00 AM CDT Subjective/Objective Patient ID: Irma Seymour is a 37 y.o. female. Chief Complaint Knee Pain HPI Patient presents today with complaints of some left knee pain for the last 2 days after she believes to have been bit by a bug/spider. She notes that the area itself is very tender to touch is located on the medial aspect of her left knee. It has been draining as someone opened the wound for her and she has been putting for it on it which does assist with some of the drainage. She denies any fevers or chills but noted that she is limping quite a bit due to the excessive pain in her left knee. She denies any discoloration to the drainage is it seems to be clear at this time, and notes that is very hard under the bite itself. She is unsure what bit her or if something better but she does notice yesterday morning. Review of Systems Constitutional: Negative for activity change, diaphoresis, fatigue, fever and unexpected weight change. Respiratory: Negative for apnea, cough and shortness of breath. Cardiovascular: Negative for chest pain, palpitations and leg swelling. Gastrointestinal: Negative for abdominal pain, diarrhea, nausea and vomiting. Genitourinary: Negative for difficulty urinating, dysuria and hematuria. Musculoskeletal: Positive for arthralgias. Please refer to HPI Skin: Positive for wound. Please refer to HPI Neurological: Negative for dizziness, light-headedness and headaches. Physical Exam Constitutional: She is oriented to person, place, and time. She appears well- developed and well-nourished. HENT: Head: Normocephalic and atraumatic. Eyes: Pupils are equal, round, and reactive to light. Neck: Normal range of motion. Neck supple. Cardiovascular: Normal rate, regular rhythm and intact distal pulses. Exam reveals gallop. No murmur heard. Pulmonary/Chest: Effort normal and breath sounds normal. No respiratory distress. She has no wheezes. Abdominal: Soft. Bowel sounds are normal. Musculoskeletal: Normal range of motion. Neurological: She is alert and oriented to person, place, and time. Skin: Skin is warm and dry. 2 cm abscess with scant drainage on left medial knee/patella with about 2.5 cm induration warm to touch, tenderness to touch Psychiatric: She has a normal mood and affect. Her behavior is normal. Assessment/Plan Diagnoses and all orders for this visit: 1. BMI 26.0-26.9,adult (Primary) Assessment & Plan: Recommended patient to continue to increase heart healthy diet with adequate fruits, vegetables, and plenty of water along with mild-moderate daily exercise as tolerated. 2. Insect bite of left lower extremity, initial encounter Assessment & Plan: Covering patient for bacterial spider bite with Bactrim DS 1 tab b.i.d. times 10 days I advised heralso to keep area clean and dry with Dial soap washing it once daily or certainly when soiled alongwith promoting drainage with a warm compress. Certainly will see her here in a week to see if thereis improvement in symptoms and certainly will see her here sooner there is any concern regarding improvement symptoms. Patient was advised to continue to monitor for any fevers or chills as we shouldhave any after 24 hours antibiotics. Certainly will see her in a week or sooner as needed Other orders - sulfamethoxazole-trimethoprim (BACTRIM,SEPTRA) 800-160 mg per tablet; Take 1 tablet by mouth 2 (two) times a day for 10 days. - naproxen (NAPROSYN,ALEVE) 500 mg tablet; Take 1 tablet (500 mg total) by mouth 2 (two) times a day as needed for pain (pain). Disposition: All past family, medical, and social [...] days Cosigned by Rojelio Freed MD at 09/02/2017 6:20 PM CDT documented in this encounter Miscellaneous Notes * Assessment & Plan Note - Palak Baker NP - 09/01/2017 9:35 AM CDT Associated Problem(s): Insect bite of left leg Covering patient for bacterial spider bite with Bactrim DS 1 tab b.i.d. times 10 days I advised heralso to keep area clean and dry with Dial soap washing it once daily or certainly when soiled alongwith promoting drainage with a warm compress. Certainly will see her here in a week to see if thereis improvement in symptoms and certainly will see her here sooner there is any concern regarding improvement symptoms. Patient was advised to continue to monitor for any fevers or chills as we shouldhave any after 24 hours antibiotics. Certainly will see her in a week or sooner as needed * Assessment & Plan Note - Palak Baker NP - 09/01/2017 9:23 AM CDT Associated Problem(s): BMI 26.0-26.9,adult Recommended patient to continue to increase heart healthy diet with adequate fruits, vegetables, and plenty of water along with mild-moderate daily exercise as tolerated. documented in this encounter Plan of Treatment Not on file documented as of this encounter Visit Diagnoses Diagnosis BMI 26.0-26.9,adult- Primary Insect bite of left lower extremity, initial encounter documented in this encounter Care Teams Associate Director Regulatory Affairs Relationship Specialty Start Date End Date Rojelio Freed MD PCP - General 02/26/17 09/24/20 documented as of this encounter
--- OUTSIDE RECORDS SUMMARY | 2024-11-30 17:38 | XMS_ITS | Encounter Summary ---
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
--- OUTSIDE RECORDS SUMMARY | 2024-11-30 17:38 | XMS_ITS | Encounter Summary ---
Author Organization [facility] Healthcare Address [address] [place] [address] Care Team Providers Care Tree Fruit And Nut Farming Supervisor Name Role Phone Rojelio Freed MD Primary Care Provider Encounter Details Date Type Department Care Team (Late st Contact Info) Description 01/07/2017 6:38 AM LICENSED AND CERTIFIED MIDWIFE - 01/07/2017 11:59 PM LICENSED AND CERTIFIED MIDWIFE Hospital Encounter [facility] Rojelio Freed MD [address] [place] [address] [address] Encounter for general adult medical examination without abnormal findings Social History Tobacco Use Types Packs/Day Years Used Date Smoking Tobacco: Some Days Comments Unknown Sex and Gender Information Value Date Recorded Sex Assigned at Not on file Legal Sex Female 3:28 AM LICENSED AND CERTIFIED MIDWIFE Gender Identity Not on file Sexual Orientation Not on file documented as of this encounter Medications at Time of Discharge busPIRone (BUSPAR) 7.5 mg tablet TAKE 1 TABLET BY ORAL ROUTE 2 TIMES EVERY DAY 60 11 12/05/2014 11/26/2017 LORazepam (ATIVAN) 0.5 mg tablet take 1 tablet by ORAL route 2 times every day as needed 60 5 11/01/2014 05/11/2017 oseltamivir (TAMIFLU) 75 mg capsule take 1 capsule by oral route 2 times every day 10 1 12/10/2016 05/11/2017 documented as of this encounter Plan of Treatment Not on file documented as of this encounter Procedures Procedure Name Priority Date/Time Associated Diagnosis Comments DISCHARGE LABORATORY CUMULATIVE REPORT 01/08/2017 SERUM LIPID PANEL Routine 01/07/2017 6:3 5 AM LICENSED AND CERTIFIED MIDWIFE SERUM ESTIMATED GLOMERULAR FILTRATION RATE Routine 01/07/2017 6:35 AM LICENSED AND CERTIFIED MIDWIFE PLASMA COMPREHENSIVE METABOLIC PANEL Routine 01/07/2017 6:35 AM LICENSED AND CERTIFIED MIDWIFE documented in this encounter Results * DISCHARGE LABORATORY CUMULATIVE REPORT (01/08/2017) Narrative 01/08/2017 Ordered by an unspecified provider. us Historical Provider LAB BLOOD ORDERABLES Kaylin l Result * (ABNORMAL) Plasma comprehensive metabolic panel (01/07/2017 6:35 AM LICENSED AND CERTIFIED MIDWIFE) Sodium 138 135 - 145 mmol/L CDR HISTORICAL RESULTS K, pl 3.9 3.5 - 5.1 mmol/L CDR HISTORICAL RESULTS Chloride 99 97 - 110 mmol/L CDR HISTORICAL RESULTS CO2 28 22 - 32 mmol/L CDR HISTORICAL RESULTS A. gap 11 8 - 16 mmol/L CDR HISTORICAL RESULTS Glucose 100 70 - 199 mg/dl CDR HISTORICAL RESULTS Comment: Interpretive Data Note:The glucose [...] data was last revised on 2015. BUN 7.4(L) 8.0 - 25.0 mg/dl CDR HISTORICAL RESULTS Creatinine 0.80 0.60 - 1.10 mg/dl CDR HISTORICAL RESULTS BUN/creat ratio 9(L) 10 - 20 CDR HISTORICAL RESULTS Calcium 9.0 8.6 - 10.2 mg/dl CDR HISTORICAL RESULTS Protein, sr 7.6 6.0 - 8.4 g/dl CDR HISTORICAL RESULTS Alb 4.2 3.6 - 5.0 g/dl CDR HISTORICAL RESULTS Alk phos 89 40 - 130 Units/L CDR HISTORICAL RESULTS ALT 30 5 - 45 Units/L CDR HISTORICAL RESULTS AST 25 10 - 40 Units/L CDR HISTORICAL RESULTS Bilirubin 0.3 <=1.2 mg/dl CDR HISTORICAL RESULTS Plasma 01/07/2017 6:35 AM LICENSED AND CERTIFIED MIDWIFE us Historical Provider LAB BLOOD ORDERABLES Kaylin murrieta Result CDR HISTORICAL RESULTS * (ABNORMAL) Serum lipid panel (01/07/2017 6:35 AM LICENSED AND CERTIFIED MIDWIFE) Cholesterol 140 40 - 199 mg/dl CDR HISTORICAL RESULTS Comment: Interpretive Data Desirable: ??Less than 200 mg/dl ? Borderline High: ?200 - 239 mg/dl ? High: ??Greater than ?? 239 mg/dl Current interpretive data was last revised on 2015. Triglycerides 218(H) <=150 mg/dl CDR HISTORICAL RESULTS Comment: Interpretive Data Normal: ? Less than 150 mg/dl Borderline high: ??105-199 mg/dl ?? High: ? 200-499 mg/dl ? Very high: ??Greater than or equal to 500 mg/dl Current interpretive data was last revised on 2015. HDL 41 40 - 60 mg/dl CDR HISTORICAL RESULTS Comment: Interpretive Data Low HDL Cholesterol: ? Less than 40 mg/dl Normal HDL Cholesterol: ??40-60 mg/dl High HDL Cholesterol: ?Greater than 60 mg/dl Current interpretive data was last revised on 2015. LDL 55 mg/dl CDR HISTOR ICAL RESULTS Comment: Interpretive Data Optimal ? Less than 100 mg/dL ? Near optimal/Above optimal ??100 - 129 mg/dL ? Borderline high ? 130 - 159 mg/dL ? High ?160 - 189 mg/dL ? Very high ? Greater than or = 190 mg/dL ? LDL values are not valid when the total Triglyceride is greater than 300 mg/dL. Current interpretive data was last revised on 2015. Non-HDL cholesterol, calculated 99 mg/dl CDR HISTORICAL RESULTS Comment: Interpretive Data Optimal ? Less than 130 mg/dL Low Risk ?130 - 159 mg/dL Moderate Risk ? 160 - 189 mg/dL High Risk ? Greater than or equal to 190 mg/dL Current interpretive data was last revised on 2015. Serum 01/07/2017 6:35 AM LICENSED AND CERTIFIED MIDWIFE us Historical Provider LAB BLOOD ORDERABLES Kaylin murrieta Result CDR HISTORICAL RESULTS * Serum estimated glomerular filtration rate (01/07/2017 6:35 AM LICENSED AND CERTIFIED MIDWIFE) eGFR >60 ml/min/1.7 3 m2 CDR HISTORICAL RESULTS Comment: Interpretive Data Reference Interval Normal ?>/= 90 mL/min/1.73m2 Mildly decreased* ? 60 - 89 mL/min/1.73m2 Mildly to moderately decreased ?45 - 59 mL/min/1.73m2 Moderately to severely decreased ??30 - 44 mL/min/1.73m2 Severely decreased ?15 - 29 mL/min/1.73m2 Kidney Failure ?< 15 ??mL/min/1.73m2 *Relative to young adult level If -Greek multiply value by 1.16. Estimated glomerular filtration rate is determined by the CKD-EPI equation recommended by the National Kidney Foundation (KDIGO 2012 Clinical Practice Guideline for the Evaluation and Management of Chronic Kidney Disease. Kidney Intnl Suppl Nov 2012;3:1). The CKD-EPI equation should not be used for patients with unstable renal function and has not been validated in children and those over 70. Current interpretive data was last reviewed 2016. Serum 01/07/2017 6:35 AM LICENSED AND CERTIFIED MIDWIFE us Historical Provider LAB BLOOD ORDERABLES Kaylin l Result CDR HISTORICAL RESULTS documented in this encounter Visit Diagnoses Diagnosis Encounter for general adult medical examination without abnormal findings documented in this encounter Care Teams Tree Fruit And Nut Farming Supervisor Relationship Specialty Start Date End Date Rojelio Freed MD PCP - General 07/18/15 02/25/17 documented as of this encounter
--- OUTSIDE RECORDS SUMMARY | 2024-11-30 17:38 | XMS_ITS | Encounter Summary ---
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
--- OUTSIDE RECORDS SUMMARY | 2024-11-30 17:38 | XMS_ITS | Encounter Summary ---
Author Organization [facility] Healthcare Address [address] [place] [address] Care Team Providers Care Representative Name Role Phone Unavailable Primary Care Provider Unavailabl e Encounter Details Date Type Department Care Team (Late st Contact Info) Description 09/27/2014 9:12 AM CDT - 09/27/2014 11:56 AM CDT Hospital Encounter [facility] Porter Gibson MD [address] [facility] [address] [place] [id number] Anxiety state; Dizziness and giddiness Social History Tobacco Use Types Packs/Day Years Used Date Smoking Tobacco: Never Assessed Comments Unknown Sex and Gender Information Value Date Recorded Sex Assigned at Not on file 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 Gender Identity Not on file Sexual Orientation Not on file documented as of this encounter Plan of Treatment Not on file documented as of this encounter Procedures Procedure Name Priority Date/Time Associated Diagnosis Comments SERUM COMPREHENSIVE METABOLIC PANEL Routine 09/27/2014 10:25 AM CDT SERUM CHORIONIC GONADOTROPIN (HCG) IDENTIFICATION Routine 09/27/2014 10:25 AM CDT BLOOD WBC CELL MORPHOLOGIC EXAM, AUTO Routine 09/27/2014 10:25 AM CDT BLOOD CELL COUNT (CBC) Routine 4 10:25 AM CDT DISCHARGE LABORATORY CUMULATIVE REPORT Routine 09/27/2014 12:00 AM CDT documented in this encounter Results * Serum chorionic gonadotropin (HCG) identification (09/27/2014 10:25 AM CDT) HCG, qual Negative NEGATIVE HISTORICAL RESULTS Serum 09/27/2014 10:2 5 AM CDT Porter Collins MD LAB BLOOD ORDERABLES Final Res ult Performing Organization Address [facility] de Phone Number HISTORICAL RESULTS * (ABNORMAL) Blood cell count (CBC) (09/27/2014 10:25 AM CDT) WBC 9.0 4.0 - 10.5 K/cumm HISTORICAL RESULTS MCV 93.8 77.0 - 97.0 fl HISTORICAL RESULTS RBC 4.66 4.20 - 5.40 M/cumm HISTORICAL RESULTS MCH 31.8 23.0 - 34.0 pg HISTORICAL RESULTS Hgb 14.8 12.0 - 16.0 g/dl HISTORICAL RESULTS MCHC 33.9 32.0 - 36.0 g/dl HISTORICAL RESULTS Hct 43.7 37.0 - 47.0 % HISTORICAL RESULTS Rdw 12.8 11.5 - 14.5 % HISTORICAL RESULTS Platelets 277 150 - 400 K/cumm HISTORICAL RESULTS MPV 12.7(H) 7.4 - 10.4 fl HISTORICAL RESULTS Blood specimen (specimen) 09/27/2014 10:25 AM CDT Porter Collins MD LAB BLOOD ORDERABLES Final Res ult Performing Organization Address [facility] de Phone Number HISTORICAL RESULTS * (ABNORMAL) Blood WBC cell morphologic exam, auto (09/27/2014 10:25 AM CDT) Lymphocytes 18.1(L) 25.0 - 33.0 % HISTORICAL RESULTS Monos 7.7 0.0 - 13.0 % HISTORICAL RESULTS Neutrophils 71.3(H) 54.0 - 69.0 % HISTORICAL RESULTS Eosinophils 2.0 0.0 - 10.0 % HISTORICAL RESULTS Basophils 0.7 0.0 - 1.0 % HISTORICAL RESULTS Immature granulocytes 0.2 0.0 - 1.0 % HISTORICAL RESULTS Lymphocytes, abs 1.6 1.2 - 3.4 K/cumm HISTORICAL RESULTS Monocytes, absolute 0.7(L) 1.1 - 1.9 K/cumm HISTORICAL RESULTS Neutrophils, abs 6.4 1.4 - 6.5 K/cumm HISTORICAL RESULTS Eosinophils, abs 0.2 0.0 - 0.7 cells/cum m HISTORICAL RESULTS Basophils, abs 0.1 0.0 - 0.2 K/cumm HISTORICAL RESULTS Immature granulocyte, abs 0.0 0.0 - 0.0 K/cumm HISTORICAL RESULTS Blood specimen (specimen) 09/27/2014 10:25 AM CDT us Porter Collins MD LAB BLOOD ORDERABLES Final Res ult HISTORICAL RESULTS * (ABNORMAL) Serum comprehensive metabolic panel (09/27/2014 10:25 AM CDT) BUN 8.0 6.0 - 23.0 mg/dl HISTORICAL RESULTS Sodium 135 134 - 143 mmol/L HISTORICAL RESULTS Potassium, sr 3.7 3.4 - 5.0 mmol/L HISTORICAL RESULTS Chloride 103 99 - 108 mmol/L HISTORICAL RESULTS CO2 24 23 - 32 mmol/L HISTORICAL RESULTS Glucose 105 70 - 199 mg/dl HISTORICAL RESULTS Comment: Note:The glucose is assumed non fasting Fastin-99 mg/dl Random: 70-199 mg/dl Either a fasting glucose > 126 mg/dL or a random glucose > 200 mg/dL plus symptoms is diagnostic of diabetes when confirmed on another day. Fasting values > 100 mg/dl but < 125 mg/dL are diagnostic of impaired fasting glucose. New reference ranges implemented 10/09/2013. Creatinine 1.02 0.60 - 1.30 mg/dl HISTORICAL RESULTS Comment: eGFR:65 ml/min/1.73sq.m if non -Iranian. eGFR: >70 ml/min/1.73sq.m if -Iranian. AVE GFR for 30-39 yr. age group: 107 ml/min/1.73sq.m Calculated using MDRD Equation BUN/creat ratio 8(L) 10 - 20 HIST ORICAL RESULTS A. gap 12 7 - 14 mmol/L HISTORICAL RESULTS Protein, sr 8.1(H) 6.4 - 8.0 g/dl HISTORICAL RESULTS Alb 3.9 3.3 - 4.5 g/dl HISTORICAL RESULTS Alb/glob ratio 0.9(L) 1.1 - 1.8 HISTO RICAL RESULTS Calcium 9.1 8.6 - 9.8 mg/dl HISTORICAL RESULTS Bilirubin 0.6 0.0 - 1.1 mg/dl HISTORICAL RESULTS Alk phos 106 44 - 125 Units/L HISTORICAL RESULTS AST 23 5 - 40 Units/L HISTORICAL RESULTS ALT 29 15 - 70 Units/L HISTORICAL RESULTS Serum 09/27/2014 10:2 5 AM CDT us Porter Collins MD LAB BLOOD ORDERABLES Final Res ult HISTORICAL RESULTS * Discharge Laboratory Cumulative Report (09/27/2014 12:00 AM CDT) 09/27/2014 Narrative HISTORICAL RESULTS - 09/28/2014 12:37 AM CDT Patient No: [id number] ? [facility] Patient Name: IRMA SEYMOUR ?[facility] Healthcare Age: 34 YRS ?: 1980 ?Sex:F ?[address] )[id number] ?? Adm Dt: 09/27/2014 ?[place], [place] ??[address] Created: 09/28/2014 ??0037 ?? Pt. Type: E ? Discharge Dt: 09/27/2014 ? Pathologists: Karly Rodriguez MD Admit Attend Dr: PORTER COLLINS MD ? BLOOD CELL COUNTS ?Collection Date: ?09/27/14 ?Collection Time: ?1025 ? Ref Range: ?? Units: [4.00-10.50] /CMM ? WBC X 10^3 ?8.99 [4.20-5.40] ??/CMM ? RBC X 10^6 ?4.66 [12.0-16.0] ??G/DL ? HGB ? 14.8 [37.0-47.0] ??% ?HCT ? 43.7 [77.0-97.0] ??FL ? MCV ? 93.8 [23.0-34.0] ??PG ? MCH ? 31.8 [32.0-36.0] ??% ?MCHC ?33.9 [11.5-14.5] ??% ?RDW ? 12.8 [150-400] ?? /CMM ? PLT X 10^3 ? 277 ?BLOOD CELL DIFFERENTIAL ?Collection Date: ?10/30/14 ?Collection Time: ?1025 ? Ref Range: ?? Units: [54.0-69.0] ??% ?NEUTROPHILS ? 71.3 H [25.0-33.0] ??% ?LYMPHOCYTES ? 18.1 L [0.0-13.0] ??% ?MONOCYTES ?7.7 [0.0-10.0] ??% ?EOSINOPHILS ?2.0 [0.0-1.0] ?? % ?BASOPHILS ?0.7 ? /CMM ? A LYMPHOCYTE ? 1.6 [0.0-1.0] ?? % ?IMM GRAN % ? 0.2 [0.00-0.02] ??/CMM ? A IMM GRAN ?0.02 [1.1-1.9] ?? /CMM ? A MONOCYTE ? 0.7 L [1.4-6.5] ?? /CMM ? A NEUTROPHIL ? 6.4 [0.0-0.7] ?? /CMM ? A EOSINOPHIL ? 0.2 [0.0-0.2] ?? /CMM ? A BASOPHIL ? 0.1 Footnotes and Symbols: L = Low, H = High ?? CONTINUED ?Page: ?? 1 Patient No: [id number] ? [facility] Patient Name: IRMA SEYMOUR ?[facility] Healthcare Age: 34 YRS ?: 1980 ?Sex:F ?[address] )[id number] ?? Adm Dt: 09/27/2014 ?[place], [place] ??[address] Created: 09/28/2014 ??0037 ?? Pt. Type: E ? Discharge Dt: 09/27/2014 ? Pathologists: Karly Rodriguez MD Admit Attend Dr: PORTER COLILNS MD ? GENERAL CHEMISTRY ?Collection Date: ?09/27/14 ?Collection Time: ?1025 ? Ref Range: ?? Units: [134-143] ?? MMOL/L ? SODIUM ? 135 [3.4-5.0] ?? MMOL/L ? POTASSIUM ?3.7 [99.0-108.0] MMOL/L ? CHLORIDE ? 103.0 [23.0-32.0] ??MMOL/L ? TOTAL CO2 ? 23.5 ?? [7-14] ?MMOL/L ? ANION GAP ? 12 ??[70-199] ?? MG/DL ?GLUCOSE ?105 f [6.4-8.0] ?? G/DL ? TOTAL PROTEIN ?8.1 H [3.3-4.5] ?? G/DL ? ALBUMIN ?3.9 [1.1-1.8] ?A/G RATIO ?0.9 L [8.6-9.8] ?? MG/DL ?CALCIUM ?9.1 [0.0-1.1] ?? MG/DL ?BILI TOTAL ? 0.6 ??[44-125] ?? U/L ?ALK PHOS ? 106 ?? [5-40] ?U/L ?AST(SGOT) ? 23 f ??[15-70] ?U/L ?ALT(SGPT) ? 29 f [6.0-23.0] ??MG/DL ?BUN ?8.0 ??[10-20] ? B/C RATIO ?8 L Footnotes and Symbols: L = Low, H = High, f = Footnote GLUCOSE (10/31/13 -- Current) Note:The glucose is assumed non fasting Fastin-99 mg/dl Random: 70-199 mg/dl Either a fasting glucose > 126 mg/dL or a random glucose > 200 mg/dL plus symptoms is diagnostic of diabetes when confirmed on another day. Fasting values > 100 mg/dl but < 125 mg/dL are diagnostic of impaired fasting glucose. New reference ranges implemented 10/09/2013. AST(SGOT) (04/12/14 -- Current) ALT(SGPT) (06/20/13 -- Current) ?? CONTINUED ?Page: ?? 2 Patient No: [id number] ? [facility] Patient Name: IRMA SEYMOUR ?[facility] Healthcare Age: 34 YRS ?: 1980 ?Sex:F ?[address] )[id number] ?? Adm Dt: 09/27/2014 ?[place], [place] ??[address] Created: 09/28/2014 ??0037 ?? Pt. Type: E ? Discharge Dt: 09/27/2014 ? Pathologists: Karly Rodriguez MD Admit Attend Dr: PORTER COLLINS MD ? GENERAL CHEMISTRY ?Collection Date: ?09/27/14 ?Collection Time: ?1025 ? Ref Range: ?? Units: [0.60-1.30] ??MG/DL ?CREATININE ?1.02 f ?09/27/14 1025 eGFR:65 ml/min/1.73sq.m if non -Iranian. eGFR: >70 ml/min/1.73sq.m if -Iranian. AVE GFR for 30-39 yr. age group: 107 ml/min/1.73sq.m Calculated using MDRD Equation FOOTNOTE ADDED ON ?? 09/27/14 ?? AT 1106 BY 999 ? [place] ?Collection Date: ?09/27/14 ?Collection Time: ?1025 ? Ref Range: ?? Units: [NEGATIVE] ?HCG QUALITATIVE ? NEGATIVE Footnotes and Symbols: f = Footnote ?? END OF CHART ? Page: ?? 3 us Historical Provider MD LAB BLOOD ORDERABLES Kaylin murrieta Result Performing Organization Address City/State/[facility] Co de Phone Number HISTORICAL RESULTS documented in this encounter Visit Diagnoses Diagnosis Anxiety state Anxiety state, unspecified Dizziness and giddiness documented in this encounter
--- OUTSIDE RECORDS SUMMARY | 2024-11-30 17:38 | XMS_ITS | Encounter Summary ---
Author Organization [facility] Address [address] [place] [address] Care Team Providers Care Health Plan Advisor Name Role Phone Rojelio Freed MD Primary Care Provider Reason for Visit * Reason Comments forms to be filled out Encounter Details Date Type Department Care Team (Late st Contact Info) Description 05/11/2017 4:00 PM CDT Office Visit [facility] [address] [place] [address] Rani Ramos NP 2 [facility] [address] [place], [place] [id number] Anxiety (Primary Dx) Social History Tobacco Use Types Packs/Day Years Used Date Smoking Tobacco: Some Days Comments Unknown Sex and Gender Information Value Date Recorded Sex Assigned at Not on file Legal Sex Female 3:28 AM [employer]IDENT [place] Gender Identity Not on file Sexual Orientation Not on file documented as of this encounter Last Filed Vital Signs Vital Sign Reading Time Taken Comments Blood Pressure 120/90 05/11/2017 4:24 PM CDT Pulse 80 05/11/2017 4:24 PM CDT Temperature 37.1 ??C (98.8 ??F) 05/11/2017 4:24 PM CD T Respiratory Rate 16 05/11/2017 4:24 PM CDT Oxygen Saturation - - Inhaled Oxygen Concentration - - Weight 65.4 kg (144 lb 3.2 oz) 05/11/2017 4:24 P M CDT Height 157.5 cm (5' 2.01 ) 05/11/2017 4:24 PM CD T Body Mass Index 26.37 05/11/2017 4:24 PM CDT documented in this encounter Ordered Prescriptions Prescription Sig Dispense Quantity Refills Last Filled Start Date End Date LORazepam (ATIVAN) 0.5 mg tablet Take 1 tablet (0.5 mg total) by mouth every 12 (twelve) hours as needed for anxiety (for anxiety). 60 tablet 5 05/11/2017 7 documented in this encounter Progress Notes * Rani Ramos NP - 05/11/2017 4:00 PM CDT Subjective/Objective Patient ID: Irma Seymour is a 36 y.o. female. Chief Complaint forms to be filled out Patient presents to the office today for forms to be completed. These are department of [employer] forms for the [facility]. Patient has history of anxiety. Anxiety is well controlled on current regimen. She is due for refill on the lorazepam. She requests this today. She denies any additional complaints or concerns. Patient had prior traffic violations. She has been driving on permits. Her license is to be reinstated. She had a Breathalyzer device placed in her car quite sometime ago. She is pleased to report she has completed the routine monitoring. And this is being removed from her car today. She denies any alcohol or substance abuse. Review of Systems Constitutional: Negative. HENT: Negative. Eyes: Negative. Respiratory: Negative. Cardiovascular: Negative. Gastrointestinal: Negative. Genitourinary: Negative. Musculoskeletal: Negative. Skin: Negative. Allergic/Immunologic: Negative. Neurological: Negative. Hematological: Negative. Psychiatric/Behavioral: Well controlled on current medications. Physical Exam Constitutional: She is oriented to person, place, and time. She appears well- developed and well-nourished. HENT: Head: Normocephalic and atraumatic. Eyes: Conjunctivae and EOM are normal. Pupils are equal, round, and reactive to light. Neck: Neck supple. Cardiovascular: Normal rate, regular rhythm and normal heart sounds. Pulmonary/Chest: Effort normal and breath sounds normal. Neurological: She is alert and oriented to person, place, and time. Skin: Skin is warm and dry. Psychiatric: She has a normal mood and affect. Her behavior is normal. Judgment and thought contentnormal. Vitals reviewed. Assessment/Plan Diagnoses and all orders for this visit: 1. Anxiety (Primary) Assessment & Plan: Anxiety disorder is well controlled on current [...] a routine basis certainly sooner if indicated. Other orders - LORazepam (ATIVAN) 0.5 mg tablet; Take 1 tablet (0.5 mg total) by mouth every 12 (twelve) hours as needed for anxiety (for anxiety). Cosigned by Rojelio Freed MD at 05/11/2017 5:56 PM CDT documented in this encounter Miscellaneous Notes * Assessment & Plan Note - Rani Ramos NP - 05/11/2017 4:48 PM CDT Associated Problem(s): Anxiety Anxiety disorder is well controlled on current [...] a routine basis certainly sooner if indicated. documented in this encounter Plan of Treatment Not on file documented as of this encounter Visit Diagnoses Diagnosis Anxiety- Primary Anxiety state, unspecified documented in this encounter Discontinued Medications Medication Sig Discontinue Reason Start Date End Da te oseltamivir (TAMIFLU) 75 mg capsule take 1 capsule by oral route 2 times every day 12/10/2016 05/11/2017 LORazepam (ATIVAN) 0.5 mg tablet take 1 tablet by ORAL route 2 times every day as needed Reorder 11/01/2014 05/11/2017 documented as of this encounter Care Teams Health Plan Advisor Relationship Specialty Start Date End Date Rojelio Freed MD PCP - General 02/26/17 09/24/20 documented as of this encounter
--- OUTSIDE RECORDS SUMMARY | 2024-11-30 18:06 | XMS_ITS | Encounter Summary ---
Author Organization [facility] Address [address] [place] [address] Phone Care Team Providers Care Manager Corporate Name Role Phone Arnold Roberts MD Unavailable Shravan Burgos Primary Care Provider Reason for Visit * Reason Comments Medication Refill Encounter Details Date Type Department Care Team (Late st Contact Info) Description 11/16/2024 Refill [facility] - Primary Care - [place] [address] [place] [address] Shravan Burgos PAC [address] [place] [address] Medication Refill Social History Tobacco Use Types Packs/Day Years Used Date Smoking Tobacco: Some Days Cigarettes Smokeless Tobacco: Never Comments:Pt has multiple day s in a row she abstains. Alcohol Use Standard Drinks/Week Comments Yes 5 (1 standard drink = 0.6 oz pur e alcohol) socially [facility] Utilities Answer Date Recorded In the past 12 months has [employer] gas, oil, or water company threatened to [...] How often do you attend mosque or synagogue serv ices? Patient declined 12/31/2023 Do you [...] Total Score - Questions 1-9 0 12/2023 [facility] of Occupat ional [facility] - Occupational Stress Questionnaire Answer [...] 3:05 PM CST Refill approved. PDMP reviewed. HER GRADER * Telephone Encounter - Demar Desouza RN [...] Provider Dept 10/03/24 Office Visit Marquita Renee, SHINGLE TRIMMER, ANODIC OPERATOR [facility] 09/20/24 Office Visit Shravan Burgos PAC [facility] 12/31/23 Office Visit Shravan Burgos PAC [facility] Showing recent visits within past 365 days and meeting all other requirements Future Appointments No visits were found meeting these conditions. Showing future appointments within next 90 days and meeting all other requirements HER GRADER documented in this encounter Plan of Treatment Upcoming Encounters Date Type Department Care Team (Late st Contact Info) Description 03/21/2025 4:30 PM CDT Office Visit [facility] - Primary Care - [place] [address] [place] [phone] Shravan Burgos PAC [address] [place] [phone] documented as of this encounter Goals Goal [...] Total Score: 0 12/31/19 24 2:09 PM LEATHER GRADER documented as of this encounter Care Teams Manager Corporate Relationship Specialty Start Date End Date Shravan Burgos, [facility] [address] [place] [address] PCP - General Physician Dynamics Ax Consultant 12/31/23 Arnold Roberts MD [address] [place] [address] Consulting Physician Pulmonary Disease 07/26/23 documented as of this encounter
--- OUTSIDE RECORDS SUMMARY | 2024-11-30 18:06 | XMS_ITS | Encounter Summary ---
Author Organization [facility] Care Team Providers Care Crm Marketing Specialist Name Role Phone Arnold Roberts MD Unavailable Shravan Burgos PAC Primary Care Provider [phone] Encounter Details Date Type Department Care Team [...] declined 12/31/2023 How often do you attend baptism or congregational serv ices? Patient declined 12/31/2023 Do you belong to any clubs o r organizations such as baptism groups, unions, fraternal or athletic groups, or [...] Total Score - Questions 1-9 0 12/2023 [facility] of Occupat ional Health - Occupational [...] to sleep or slept in a senior living (including now)? No 12/31/2023 Education Answer Date [...] 03/21/2025 4:30 PM CDT Office Visit [facility] - Primary Care - [place] [...] Total Score: 0 12/31/19 24 2:09 PM DELIVERY TECHNICIAN documented as of this encounter Care Teams Crm Marketing Specialist Relationship Specialty Start Date End Date Shravan Burgos, [facility] [address] [place] [address] PCP - General Physician Ribbon Blockmaker 12/31/23 Arnold Roberts MD [address] [place] [address] Consulting Physician Pulmonary Disease 07/26/23 documented as of this encounter
--- OUTSIDE RECORDS SUMMARY | 2024-11-30 18:06 | XMS_ITS | Patient Health Summary ---
Author Organization [facility] Address [address] [place] [address] Care Team Providers Care Slot Machine Key Person Name Role Phone Unavailable Primary Care Provider Unavailabl e Note from [facility],non-owned Affiliates and Associated Physician Practices is amultiple site organization consisting of ambulatory clinics and hospital sitesin [place], [place], [place]. This disclosure is being madepursuant to the Care Everywhere program and may not contain all information available regarding this patient. Last updated 18.[facility] [employer] Social History Tobacco Use Types Packs/Day Years Used Date Smoking Tobacco: Never Assessed Sex and Gender Information Value Date Recorded Sex Assigned at Not on file Gender Identity Not on file Sexual Orientation Not on file
--- OUTSIDE RECORDS SUMMARY | 2024-11-30 18:06 | XMS_ITS | Encounter Summary ---
Author Organization [facility] Address [address] [facility] [address] [address] Phone Care Team Providers Care Interstate Planner Name Role Phone Arnold Roberts MD Unavailable Shravan Burgos Primary Care Provider Reason for Visit * Reason Comments Medication Management Had sleep study Encounter Details Date Type Department Care Team (Late st Contact Info) Description 09/20/2024 4:30 PM CDT Office Visit [facility] - Primary Care - [place] [address] [place] [address] Shravan Burgos, PAPI [address] [place] [address] Biliary dyskinesia (Primary Dx); Hypertriglyceridemia; [...] = 0.6 oz pur e alcohol) socially [facility] Utilities Answer Date Recorded In the past 12 months has [employer], gas, oil, or water company threatened [...] declined 12/31/2023 How often do you attend zoroastrianism or rastafari serv ices? Patient declined 12/31/2023 Do you belong to any clubs o r organizations such as zoroastrianism groups, unions, fraternal or athletic groups, or [...] 12/2023 [facility] of Occupat ional [facility] - Occupational Stress Questionnaire Answer [...] place to sleep or slept in a care home (including now)? No 12/31/2023 Education Answer [...] TIMES A DAY 01/11/23 Yes Amaya Kowalski, ASSISTANT ACCOUNTING MANAGER, PROJECT CONSTRUCTION MANAGER There are no discontinued medications. I have [...] [facility] [place] [address] [place] [address] Shravan Burgos PAC [address] [place] [phone] documented as of this encounter Goals Goal [...] On track(2019 9:50 AM CDT) Eloise Mix [facility] Note: Irma will engage in a [...] Total Score: 0 12/31/19 24 2:09 PM BREWER HELPER documented as of this encounter Care Teams Interstate Planner Relationship Specialty Start Date End Date Shravan Burgos, PAPI [address] [place] [address] PCP - General Physician Supervisor Costuming 12/31/23 Arnold Roberts MD [address] [place] [phone] Consulting Physician Pulmonary Disease 07/26/23 documented as of this encounter
--- OUTSIDE RECORDS SUMMARY | 2024-11-30 18:06 | XMS_ITS | Clinical Summary ---
Author Organization [facility] Address [address] [place] [address] Care Team Providers Care Clinical Review Nurse Name Role Phone Unavailable Primary Care Provider Unavailabl e Source Comments [facility],non-owned Affiliates and Associated Physician Practices is amultiple site organization consisting of ambulatory clinics and hospital sitesin [place], [place], [place] and [place]. This disclosure is being madepursuant to the Care Everywhere program and may not contain all information available regarding this patient. Last updated 18.[facility] Make YES! Happen Social History Tobacco Use Types Packs/Day Years [...] IRMA SEYMOUR Personal/Famil y Spouse [address] [place] [address] IRMA SEYMOUR Personal/Famil y Spouse [address] [place] [address]
--- OUTSIDE RECORDS SUMMARY | 2024-11-30 18:06 | XMS_ITS | Encounter Summary ---
Author Organization [facility] Address [address] [place] [address] Phone Care Team Providers Care Extension Supervisor Name Role Phone Arnold Roberts MD Unavailable Shravan Burgos PAC Primary Care Provider [phone] Reason for Visit * Reason Comments Ear Pain Right ear pain. Off and on for the past couple of weeks. Encounter Details Date Type Department Care Team (Late st Contact Info) Description 10/03/2024 3:30 PM ARMY OFFICER Office Visit [facility] - Primary Care - [place] [address] [place] [address] Marquita Renee, FOOD SERVICE COORDINATOR, TENNIS NET MAKER [address] [place] [address] Right non-suppurative otitis media (Primary [...] declined 12/31/2023 How often do you attend taoism or sikh serv ices? Patient declined 12/31/2023 Do you belong to any clubs o r organizations such as taoism groups, unions, fraternal or athletic groups, or [...] Total Score - Questions 1-9 0 12/2023 [employer] [facility] - Occupational Stress Questionnaire Answer [...] place to sleep or slept in a long term (including now)? No 12/31/2023 Education Answer Date [...] Comments Blood Pressure 114/80 10/03/2024 3:45 PM ARMY OFFICER Pulse 86 10/03/2024 3:45 PM ARMY OFFICER Temperature 36.3 ??C (97.3 ??F) 10/03/2024 3:45 PM CS T Respiratory Rate 18 10/03/2024 3:45 PM ARMY OFFICER Oxygen Saturation 98% 10/03/2024 3:45 PM ARMY OFFICER Inhaled Oxygen Concentration - - Weight 65.3 kg (144 lb) 10/03/2024 3:45 PM ARMY OFFICER Height 157.5 cm (5' 2 ) 10/03/2024 3:45 PM ARMY OFFICER Body Mass Index 26.34 10/03/2024 3:45 PM ARMY OFFICER documented in this encounter Patient Instructions * Patient Instructions* Marquita Renee, FOOD SERVICE COORDINATOR, TENNIS NET MAKER - 10/03/2024 3:30 PM ARMY OFFICER Take all medications as prescribed. Please continue with a balanced lifestyle of exercise and healthy eating. If any question, please call. Thanks for coming in today! OFFICER documented in this encounter Progress Notes * Kirsten Martin RMA - 10/03/2024 3:30 PM CST Irma Seymour is a 44 y.o. female with current BMI: Body mass index is 26.34 kg/m??. Interventions discussed including: encourage daily physical activity and well- balanced diet. OFFICER * Kirsten Martin RMA - 10/03/2024 3:30 [...] with the patient today: BMI and Smoking OFFICER * Marquita Renee APRN, CNP - 10/03/2024 3:30 PM CST [address] [address] Dept: [phone] Dept Loc: [phone] Loc Patient: Irma Seymour : 1980 Sex: [...] - fluticasone (FLONASE) 50 MCG/ACT Suspension; 1 [place] by Nasal route daily. Use in each nostril asdirected. Follow-up Information Return if symptoms worsen or fail to improve. Augmentin ordered Flonase ordered Encourage to increase water, May take OTC tylenol or motrin for pain LOS Today OFFICE/OP EST LVL 4 MOD MDM/30-39 MIN OFFICER documented in this encounter Plan of Treatment Upcoming Encounters Date Type Department Care Team (Late st Contact Info) Description 03/21/2025 4:30 PM CDT Office Visit [facility] - Primary Care - [place] [address] [place] [address] Shravan Burgos PAC [address] [place] [address] documented as of this encounter Goals [...] and past) that trigger mood concerns. Behavioral [facility] Behavioral Health On track(2019 [...] Total Score: 0 12/31/19 24 2:09 PM ARMY OFFICER documented as of this encounter Care Teams Extension Supervisor Relationship Specialty Start Date End Date Shravan Burgos, PAC [address] [place] [address] PCP - General Physician Predictive Maintenance Technician 12/31/23 Arnold Roberts MD [address] [place] [phone] Consulting Physician Pulmonary Disease 07/26/23 documented as of this encounter
--- OUTSIDE RECORDS SUMMARY | 2024-11-30 18:06 | XMS_ITS | Encounter Summary ---
Author Organization [facility] Address [address] [facility] [place] [address] Care Team Providers Care Toe Lining Closer Name Role Phone Unavailable Primary Care Provider Unavailabl e Encounter Details Date Type Department Care Team (Late st Contact Info) Description 11/07/2019 Orders Only [facility] - Orthopedics [address] [place] [address], [place] [id number] Susana Jose MD [address] [place] [phone] Wrist pain, right Social History Tobacco Use [...]
--- OUTSIDE RECORDS SUMMARY | 2024-11-30 18:06 | XMS_ITS | Clinical Summary ---
Author Organization [facility] Address [address] [place] [address] Phone Care Team Providers Care Color Print Inspector Name Role Phone Arnold Roberts MD Unavailable Shravan Brugos PAC Primary Care Provider Allergies Active Allergy [...] Active fluticasone (FLONASE) 50 MCG/ACT Suspension 1 [place] by Nasal route daily. Use in each [...] Type Department Care Team Description 11/16/2024 [facility] [address] [place] [address] Shravan Burgos, PAC Medication Refill 10/16/[address] [facility] [address] [place] [address] Shravan Burgos, PAC Medication Refill 10/13/2024 Nurse Triage [facility] [address] [place] [phone] Shravan Burgos, PAC Ear Pain 10/03/2024 3:30 PM INSULATION POWER UNIT TENDER [facility] [address] [place] [phone] Marquita Renee APRN, MARBLE INSTALLER SUPERVISOR Right non-suppurative otitis media (Primary Dx) Discharge Disposition: Discharged to home or Selfcare 10/03/2024 Travel 09/21/2024 Telephone [facility] [address] [place] [address] Shravan Burgos, PAC Medication Management 09/20/2024 4:30 PM CDT [facility] [address] [facility] [phone] Shravan Burgos, PAC Biliary dyskinesia (Primary Dx); Hypertriglyceridemia; Insomnia, unspecified type; Mild persistent asthma with exacerbation Discharge Disposition: Discharged to home or Selfcare 09/20/2024 Travel 09/11/2024 3:56 PM CDT - 09/11/2024 11:59 PM CDT Hospital Encounter [facility] Mammography [address] [place] [phone] Veronika Orantes APRN, MARBLE INSTALLER SUPERVISOR Discharge Disposition: Discharged to home or Selfcare 09/11/2024 Travel 09/09/2024 Refill [facility] - Primary Care - [place] [address] [...] = 0.6 oz pur e alcohol) socially [employer] Utilities Answer Date Recorded In the past [...] declined 12/31/2023 How often do you attend adventist or pentecostal serv ices? Patient declined 12/31/2023 Do you belong to any clubs o r organizations such as adventist groups, unions, fraternal or athletic groups, or [...] Total Score - Questions 1-9 0 12/2023 [facility] of Occupat ional Health - Occupational Stress [...] Comments Blood Pressure 114/80 10/03/2024 3:45 PM INSULATION POWER UNIT TENDER Pulse 86 10/03/2024 3:45 PM INSULATION POWER UNIT TENDER Temperature 36.3 ??C (97.3 ??F) 10/03/2024 3:45 PM CS T Respiratory Rate 18 10/03/2024 3:45 PM INSULATION POWER UNIT TENDER Oxygen Saturation 98% 10/03/2024 3:45 PM INSULATION POWER UNIT TENDER Inhaled Oxygen Concentration - - Weight 65.3 kg (144 lb) 10/03/2024 3:45 PM INSULATION POWER UNIT TENDER Height 157.5 cm (5' 2 ) 10/03/2024 3:45 PM INSULATION POWER UNIT TENDER Body Mass Index 26.34 10/03/2024 3:45 PM INSULATION POWER UNIT TENDER Plan of Treatment Upcoming Encounters Date Type Department Care Team (Late st Contact Info) Description 03/21/2025 4:30 PM CDT Office Visit [facility] - Primary Care - [place] [address] [place] [address] Shravan Burgos, PAC [address] [place] [address] Health Maintenance Due Date Last [...] Associated Problems Recent Progress Patient-Stated? Author Behavioral [facility] Behavioral Health On track(2019 9:50 AM CDT) Yes Eloise Jenkins LCPC Note: Irma reported her goal for psychotherapy is to help me be able to deal with things in the present and in her past that are contributing to low and anxious mood. Goal Reviewed with: patient Readiness to change: Thinking about making a change Department associated with goal: [facility] BEHAVIORAL HEALTH SERVICES Steps to achieve goal: 1. Irma will attend psychotherapy, at minimum twice a month. 2. Imra will identify and explore atleast three incidents/experiences of current stressors, past trauma and family dynamics that contribute to her mood concerns. 3. Irma will identify at least three ways/skills to heal and cope with the experiences (current and past) that trigger mood concerns. Behavioral [facility] Behavioral Health On track(2019 9:50 AM CDT) No Eloise Jenkins LCPC Note: Irma will engage in a plan of action to improve emotional and mental wellbeing. Goal Reviewed with: patient Readiness to change: Not yet ready to make a change Department associated with goal: [facility] Steps to [...] exams dated: ??08/14/2022, 11/04/2020, 09/13/2020, and 03/14/2019 [facility]. ?? BREAST TISSUE:The breasts are heterogeneously [...] Mounika Song M.D. ? ll/penrad:09/11/2024 19:49:19 ?? Chemical Inspector(s): Dhara ??RT George(R)(M), [facility] letter sent: Normal Exam ?? Reading [...] exams dated: 08/14/2022, 11/04/2020, 09/13/2020, and 03/14/2019 [facility]. BREAST TISSUE:The breasts are heterogeneously dense, [...] exam. Electronically signed by: Mounika vidales/jenna:09/11/2024 19:49:19 Chemical Inspector(s): RT Raegan(R)(M), [facility] letter sent: Normal Exam Reading location: [place] Mammogram BI-RADS: Category 1: Negative Veronika Orantes APRN, MARBLE INSTALLER SUPERVISOR IMG MAMMO ORDERABLES Kaylin l Result * GASTROENTEROLOGY CONSULT (09/04/2024 12:00 AM CDT) 09/04/2024 us Provider Scan GENERIC SCAN ORDERS CONSULT Kaylin l Result SCAN * HM COLONOSCOPY (03/15/2024 12:00 AM CDT) 03/15/2024 Provider Scan PROCEDURE/MINOR SURGICAL ORDERAB LES Final Result SCAN * HEPATITIS C ANTIBODY (07/14/2023 4:05 PM CDT) hepatitis C antibody 0.10 <1 S/CO [facility] ARCH [id number] B 07/15/2023 3:00 PM CDT [facility] Comment: Signal/Cutoff ratio ??< 0.79 is Nondetected Signal/Cutoff ratio 0.80-0.99 is Grayzone Signal/Cutoff ratio > 0.99 is Detected Supplemental assays are recommended if signal/cutoff ratio is >/=1.00. ??Signal/cutoff ratio result >/= 5.00 is 97% predictive of positivity for recombinant immunoblot assay (RIBA) and will be reported to the [place] Department of Public [facility] as required. Blood Venipuncture / Unknown 07/14/2023 4:05 PM CDT 07/14/2023 4:33 PM CDT Sravani Ramsay MD CHEMISTRY ORDERABLES Final R esult [facility] [address] [place] [address], from Last 3 Months or Most Recently Relevant to Health Maintenance Insurance [facility] Advance Directives * Full Code (Latest Code Status on File) Date Activated Date Inactivated Comments 12/05/2020 4:55 AM 12/06/2020 12:59 AM CPR-Full Mya tment: FULL ARREST: Attempt Resuscitation/CPR wit intubation and mechanical ventilation. PRE-ARREST: Use entire range of life support measures to stabilize the patient. Care Teams Color Print Inspector Relationship Specialty Start Date End Date Shravan Burgos, PAC [address] [place] [address] PCP - General Physician Ends Down Checker 12/31/23 Arnold Roberts MD [address] [place] [address] Consulting Physician Pulmonary Disease 07/26/23
--- OUTSIDE RECORDS SUMMARY | 2024-11-30 18:06 | XMS_ITS | Encounter Summary ---
Author Organization [employer] Care Team Providers Care Ice Cutter Name Role Phone Arnold Roberts MD Unavailable Shravan Burgos PAC Primary Care Provider [phone] Encounter Details Date Type Department Care Team [...] How often do you attend taoist or yarsani serv ices? Patient declined 12/31/2023 Do you [...] Total Score - Questions 1-9 0 12/2023 [facility] of Occupat ional Health - Occupational [...] Office Visit [facility] - Primary Care - [place] [address] [place] [address] Shravan Burgos PAC [address] [place] [address] documented as of this encounter Goals [...] Total Score: 0 12/31/19 24 2:09 PM SENIOR ENERGY TRADER documented as of this encounter Care Teams Ice Cutter Relationship Specialty Start Date End Date Shravan Burgos, [facility] [address] [place] [address] PCP - General Physician Cobol Developer 12/31/23 Arnold Roberts MD [address] [place] [address] Consulting Physician Pulmonary Disease 07/26/23 documented as of this encounter
--- OUTSIDE RECORDS SUMMARY | 2024-11-30 18:06 | XMS_ITS | Encounter Summary ---
Author Organization [facility] Address [address] [place] [address] Phone Care Team Providers Care Sheet Catcher Name Role Phone Arnold Roberts MD Unavailable Shravan Burgos Primary Care Provider Reason for Visit * Reason Comments Medication Refill Encounter Details Date Type Department Care Team (Late st Contact Info) Description 10/16/2024 Refill [facility] - Primary Care - [place] [address] [place] [address] Shravan Burgos PAC [address] [place] [address] Medication Refill Social History Tobacco Use Types Packs/Day Years Used Date Smoking Tobacco: Some Days Cigarettes Smokeless Tobacco: Never Comments:Pt has multiple day s in a row she abstains. Alcohol Use Standard Drinks/Week Comments Yes 5 (1 standard drink = 0.6 oz pur e alcohol) socially [facility] Utilities Answer Date Recorded In the past 12 months has [employer], gas, oil, or water company threatened to [...] declined 12/31/2023 How often do you attend christianity or zoroastrianism serv ices? Patient declined 12/31/2023 Do you belong to any clubs o r organizations such as christianity groups, unions, fraternal or athletic groups, or [...] 0 12/2023 [facility] of Occupat ional [facility] - Occupational Stress Questionnaire Answer Date [...] 5:37 PM CST Refill approved. PDMP reviewed. AIR CONDITIONING MECHANIC * Telephone Encounter - Demar Desouza RN [...] Provider Dept 10/03/24 Office Visit Marquita Renee, KIDNEY TRIMMER, COMMERCIAL INSURANCE UNDERWRITER [facility] 09/20/24 Office Visit Shravan Burgos PAC [facility] 12/31/23 Office Visit Shravan Burgos PAC [facility] Showing recent visits within past 365 days and meeting all other requirements Future Appointments No visits were found meeting these conditions. Showing future appointments within next 90 days and meeting all other requirements AIR CONDITIONING MECHANIC documented in this encounter Plan of Treatment Upcoming Encounters Date Type Department Care Team (Late st Contact Info) Description 03/21/2025 4:30 PM CDT Office Visit [facility] - Primary Care - [place] [address] [place] [phone] Shravan Burgos PAC [address] [place] [phone] documented as of this encounter Goals Goal [...] Total Score: 0 12/31/19 24 2:09 PM AUTO AIR CONDITIONING MECHANIC documented as of this encounter Care Teams Sheet Catcher Relationship Specialty Start Date End Date Shravan Burgos, [facility] [address] [place] [address] PCP - General Physician Stoneworker 12/31/23 Arnold Roberts MD [address] [place] [address] Consulting Physician Pulmonary Disease 07/26/23 documented as of this encounter
--- OUTSIDE RECORDS SUMMARY | 2024-11-30 18:06 | XMS_ITS | Encounter Summary ---
Author Organization [facility] Address [address] [place] [address] Phone Care Team Providers Care Carpenter Mate Name Role Phone Arnold Roberts MD Unavailable Shravan Burgos Primary Care Provider Reason for Visit * Reason Onset Date Comments Medication Management 09/21/2024 Encounter Details Date Type Department Care Team (Late st Contact Info) Description 09/21/2024 Telephone [facility] - Primary Care - [place] [address] [place] [address] Shravan Burgos PAC [address] [place] [address] Medication Management Social History Tobacco Use Types Packs/Day Years Used Date Smoking Tobacco: Some Days Cigarettes Smokeless Tobacco: Never Comments:Pt has multiple day s in a row she abstains. Alcohol Use Standard Drinks/Week Comments Yes 5 (1 standard drink = 0.6 oz pur e alcohol) socially [facility] Utilities Answer Date Recorded In the past 12 months has [employer], gas, oil, or water company threatened to [...] declined 12/31/2023 How often do you attend spiritism or taoist serv ices? Patient declined 12/31/2023 Do you belong to any clubs o r organizations such as spiritism groups, unions, fraternal or athletic groups, or [...] Score - Questions 1-9 0 12/2023 [facility] of Occupat ional Health - Occupational [...] Description 03/21/2025 4:30 PM CDT Office Visit [facility] - Primary Care - [place] [address] [place] [address] Shravan Burgos, PAPI [address] [place] [address] documented as of this encounter [...] Total Score: 0 12/31/19 24 2:09 PM STAVE BOLT EQUALIZER documented as of this encounter Care Teams Carpenter Mate Relationship Specialty Start Date End Date Shravan Burgos, PAC [address] [place] [phone] PCP - General Physician Independent Beauty Consultant 12/31/23 Arnold Roberts MD [address] [place] [address] Consulting Physician Pulmonary Disease 07/26/23 documented as of this encounter
--- OUTSIDE RECORDS SUMMARY | 2024-11-30 18:06 | XMS_ITS | Encounter Summary ---
Author Organization [employer] Care Team Providers Care Dial Screw Assembler Name Role Phone Arnold Roberts MD Unavailable Shravan Burgos PAC Primary Care Provider [phone] Encounter Details Date Type Department Care Team [...] declined 12/31/2023 How often do you attend yarsani or buddhist serv ices? Patient declined 12/31/2023 Do you belong to any clubs o r organizations such as yarsani groups, unions, fraternal or athletic groups, or [...] Total Score - Questions 1-9 0 12/2023 [facility] of Occupat ional Health - Occupational [...] place to sleep or slept in a penitentiary (including now)? No 12/31/2023 Education Answer Date [...] PM CDT Office Visit [facility] - Primary Care - [place] [address] [place] [address] Shravan Burgos PAC [address] [place] [address] documented as of this encounter Goals [...] change Department associated with goal: [facility] BEHAVIORAL HEALTH SERVICES Steps [...] change Department associated with goal: [facility] BEHAVIORAL HEALTH SERVICES Steps [...] Total Score: 0 12/31/19 24 2:09 PM UTILITY ENGINEER documented as of this encounter Care Teams Dial Screw Assembler Relationship Specialty Start Date End Date Shravan Burgos, [facility] [address] [place] [address] PCP - General Physician Health Technician 12/31/23 Arnold Roberts MD [address] [place] [address] Consulting Physician Pulmonary Disease 07/26/23 documented as of this encounter
--- OUTSIDE RECORDS SUMMARY | 2024-11-30 18:06 | XMS_ITS | Referral Summary ---
Author Organization [facility] Address [address] [place] [address] Care Team Providers Care Conductor/Brakeman Name Role Phone Unavailable Primary Care Provider Unavailabl e Source Comments [facility],non-owned Affiliates and Associated Physician Practices is amultiple site organization consisting of ambulatory clinics and hospital sitesin [place], [place], [place] and [place]. This disclosure is being madepursuant to the Care Everywhere program and may not contain all information available regarding this patient. Last updated 18.[facility] Social History Tobacco Use Types Packs/Day Years Used Date Smoking Tobacco: Never Assessed Sex and Gender Information Value Date Recorded Sex Assigned at Not on file Gender Identity Not on file Sexual Orientation Not on file Plan of Treatment Not on file
--- OUTSIDE RECORDS SUMMARY | 2024-11-30 18:06 | XMS_ITS | Encounter Summary ---
Author Organization [facility] Address [address] [place] [address] Phone Care Team Providers Care Fur Dresser Name Role Phone Arnold Roberts MD Unavailable Shravan Burgos PAC Primary Care Provider [phone] Reason for Visit * Radiology Services (Routine) - Closed Specialty Diagnoses / Procedures Referred By Claudio remy Referred To Contact Radiology Diagnoses Visit for screening mammogram Procedures NU SCREENING BILATERAL DIGITAL W CAD W WILBERT NU SCREENING BILATERAL DIGITAL W CAD Veronika Orantes APRN, CORRECTIONS SERGEANT [address] [place] [address] Phone: tel: fax: Referral ID Status Reason Start Date Expiration Date Visits Re quested Visits Authorized [id number] Closed 05/25/2024 1 1 Encounter Details Date Type Department Care Team (Latest Contact Info) Description 09/11/2024 3:56 PM CDT - 09/11/2024 11:59 PM CDT Hospital Encounter [facility] Mammography [address] [place] [id number] Veronika Orantes APRN, CORRECTIONS SERGEANT [address] [place] [address] Discharge Disposition: Discharged to home or Selfcare Social History Tobacco Use Types Packs/Day Years Used Date Smoking Tobacco: Some Days Cigarettes Smokeless Tobacco: Never Comments:Pt has multiple day s in a row she abstains. Alcohol Use Standard Drinks/Week Comments Yes 5 (1 standard drink = 0.6 oz pur e alcohol) socially [facility] Utilities Answer Date Recorded In the past [...] declined 12/31/2023 How often do you attend congregation or mu-ism serv ices? Patient declined 12/31/2023 Do you belong to any clubs o r organizations such as congregation groups, unions, fraternal or athletic groups, or [...] Total Score - Questions 1-9 0 12/2023 [facility] of Occupat ional Health - Occupational Stress [...] 4:30 PM CDT Office Visit [facility] - Primary Care - [place] [address] [place] [phone] Shravan Burgos PAC [address] [place] [address] documented as of this encounter Goals Goal Patient Goal Type Associated Problems Recent Progress Patient-Stated? Author Behavioral Health Behavioral Health On track(2019 9:50 AM CDT) Yes Eloise Jenkins, [facility] Note: Irma reported her goal for [...] On track(2019 9:50 AM CDT) Eloise Mix CONTRACT GRAPHIC DESIGNER Note: Irma will engage in a plan [...] exams dated: ??08/14/2022, 11/04/2020, 09/13/2020, and 03/14/2019 [facility]. ?? BREAST TISSUE:The breasts are heterogeneously [...] Mounika Song M.D. ? ll/penrad:09/11/2024 19:49:19 ?? Casework Manager(s): Dhara ??RT George(R)(M), [facility] letter sent: Normal Exam ?? Reading [...] exams dated: 08/14/2022, 11/04/2020, 09/13/2020, and 03/14/2019 [facility]. BREAST TISSUE:The breasts are heterogeneously dense, [...] exam. Electronically signed by: Mounika vidales/jenna:09/11/2024 19:49:19 Casework Manager(s): RT Raegan(R)(M), [facility] letter sent: Normal Exam Reading location: [place] Mammogram BI-RADS: Category 1: Negative us Veronika Orantes BEAN PICKER MACHINE OPERATOR, CORRECTIONS SERGEANT IMG MAMMO ORDERABLES Kaylin l Result documented in this encounter Visit Diagnoses Diagnosis Visit for screening mammogram Other screening mammogram documented in this encounter Additional Health Concerns Assessment Noted Time PHQ-9 Depression Total Score: 0 12/31/19 24 2:09 PM PROP MAKER documented as of this encounter Care Teams Fur Dresser Relationship Specialty Start Date End Date Shravan Burgos, PAC [address] [place] [address] PCP - General Physician Practice Professional 12/31/23 Anrold Roberts MD [address] [place] [phone] Consulting Physician Pulmonary Disease 07/26/23 documented as of this encounter
--- OUTSIDE RECORDS SUMMARY | 2024-11-30 18:06 | XMS_ITS | Encounter Summary ---
Author Organization [facility] Address [address] [place] [address] Phone Care Team Providers Care Assistant Corporation Counsel Name Role Phone Arnold Roberts MD Unavailable Shravan Burgos PAC Primary Care Provider Reason for Visit * Reason Onset Date Comments Ear Pain 10/13/2024 Encounter Details Date Type Department Care Team (Late st Contact Info) Description 10/13/2024 Nurse Triage [facility] [address] [place] [address] Shravan Burgos, PAC [address] [place] [address] Ear Pain Social History Tobacco Use Types Packs/Day Years Used Date Smoking Tobacco: Some Days Cigarettes Smokeless Tobacco: Never Comments:Pt has multiple day s in a row she abstains. Alcohol Use Standard Drinks/Week Comments Yes 5 (1 standard drink = 0.6 oz pur e alcohol) socially [facility] Utilities Answer Date Recorded In the past 12 months has [employer], gas, oil, or water company threatened [...] How often do you attend yarsani or mu-ism serv ices? Patient declined 12/31/2023 [...] Total Score - Questions 1-9 0 12/2023 [facility] of Occupat ional [facility] - Occupational Stress Questionnaire Answer Date [...] in office or promptcare to be re-evaluated. ABAP PROGRAMMER * Telephone Encounter - Aliza Atwood RN [...] Foreign body stuck in the ear canal [place] or red swelling behind the ear Stiff [...] blurred vision or vision changes Protocols used: Rsvhiro-G-WB ABAP PROGRAMMER * Telephone Encounter - Carmen Robbins CMA - 10/13/2024 3:48 PM CST Symptom: Earache Outcome: Schedule an appointment within 3 days Reason: Caller denied all higher acuity questions The caller rejected this outcome. Caller Denied: * Severe pain now * Suspects Swimmer's ear ABAP PROGRAMMER documented in this encounter Plan of Treatment [...] Associated Problems Recent Progress Patient-Stated? Author [facility] On track(2019 9:50 AM CDT) Yes Eloise [...] HEALTH SERVICES Steps to achieve goal: 1. rIma will attend psychotherapy, at minimum twice a month. 2. Irma will identify and explore atleast three incidents/experiences of current stressors, past trauma and family dynamics that contribute to her mood concerns. 3. Irma will identify at least three ways/skills to heal and cope with the experiences (current and past) that trigger mood concerns. [facility] Behavioral Health [...] Total Score: 0 12/31/19 24 2:09 PM SAP ABAP PROGRAMMER documented as of this encounter Care Teams Assistant Corporation Counsel Relationship Specialty Start Date End Date Shravan Burgos, PAC [address] [place] [phone] PCP - General Physician Svp Research & Ebusiness Operations 12/31/23 Arnold Roberts MD [address] [place] [address] Consulting Physician Pulmonary Disease 07/26/23 documented as of this encounter
--- OUTSIDE RECORDS SUMMARY | 2024-11-30 18:06 | XMS_ITS | Encounter Summary ---
Author Organization [facility] Address [address] [place] [address] Care Team Providers Care Vice President Of Nursing Name Role Phone Unavailable Primary Care Provider Unavailabl e Reason for Visit * Reason Onset Date Comments Referral 09/07/2019 Encounter Details Date Type Department Care Team (Late st Contact Info) Description 09/07/2019 Telephone [facility] - Orthopedics [address] [facility], Count Includes [facility] [place] [address] Violeta Chacon CPC Referral Social [...] 09/07/2019 11:48 AM CDT Received referral from [facility] for patient right wrist ganglion cyst. Attempted to schedule patient with Dr. Susana Jose patient states at time of call she in an ER she will call back. documented in this encounter Plan of Treatment Not on file documented as of this encounter Visit Diagnoses Not on filedocumented in this encounter
--- OUTSIDE RECORDS SUMMARY | 2024-11-30 18:07 | XMS_ITS | Encounter Summary ---
Author Organization [facility] Address [address] [place] [address] Phone Care Team Providers Care Garment Parts Cutter Machine Name Role Phone Sravani Ramsay MD Primary Care Provider Arnold Roberts MD Unavailable Reason for Visit * Reason Onset Date Comments Advice Only 12/13/2023 Encounter Details Date Type Department Care Team (Late st Contact Info) Description 12/13/2023 Telephone [facility] [address] [place] [address] Sravani Ramsay MD [address] [id number] Advice Only Social History Tobacco Use Types [...] discuss further treatment for her anxiety at [facility] appt. Patient prefers MyChart for communication. Patient/caller verbalized understanding and agreeable to recommendations. ORMAN * Telephone Encounter - Mohini Aguirre RN - 12/14/2023 1:29 PM ANCHORMAN Attempted to call patient with provider message, no answer at this time. Left message to call back. ORMAN * Addendum Note - Rajinder Burgos PAC - 12/14/2023 1:25 PM CSTAddended by: RAJINDER BURGOS on: 12/14/2023 01:25 PM Modules accepted: Orders ORMAN * Telephone Encounter - Rajinder Burgos PAC - 12/14/2023 1:23 PM CST Rx not due for refill until 12/16/23. Will refill for 7 day supply and [facility] * Telephone Encounter - Mohini Aguirre RN - 12/13/2023 4:24 PM ANCHORMAN On 11/16/23 Dr. Johnson refilled this medication for one time and patient was advised no refills without transferring care to a new provider. Patient called today and scheduled for 12/23/23. Does provider wish to refill? Per PDMP, last fill 11/16/23 for 30 day supply to [facility]. ORMAN * Telephone Encounter - Onur Canales - 12/13/2023 4:13 PM CST Patient called in regards to wanting medication LORazepam (ATIVAN) 0.5 MG Tablet refilled up until their appointment on 12/23/2023. Please call patient back. ORMAN documented in this encounter Plan of Treatment Upcoming Encounters Date Type Department Care Team (Late st Contact Info) Description 03/21/2025 4:30 PM CDT Office Visit [facility] - Primary Care - [place] [address] [place] [address] Rajinder Burgos PAC [address] [place] [address] documented as of this encounter [...] track(2019 9:50 AM CDT) No Eloise Jenkins, [facility] Note: Irma will [...] documented as of this encounter Care Teams Garment Parts Cutter Machine Relationship Specialty Start Date End Date Sravani Ramsay MD [address] [place] [address] PCP - General Family Medicine 04/23/23 12/30/23 Arnold Roberts MD [address] [place] [address] Consulting Physician Pulmonary Disease 07/26/23 documented as of this encounter
--- OUTSIDE RECORDS SUMMARY | 2024-11-30 18:07 | XMS_ITS | Encounter Summary ---
Author Organization [employer] Care Team Providers Care Flume Ride Operator Name Role Phone Arnold Roberts MD Unavailable Shravan Burgos PAC Primary Care Provider [phone] Encounter Details Date Type Department Care Team [...] declined 12/31/2023 How often do you attend denominational or jew serv ices? Patient declined 12/31/2023 Do you belong to any clubs o r organizations such as denominational groups, unions, fraternal or athletic groups, or [...] Score - Questions 1-9 0 12/2023 [facility] of Occupat ional Health - Occupational [...] of Assessment Author -1 12/31/2023 1:02 PM DEPARTMENT CLERK Scotty, System Background * Within the last year, have you been humiliated or emotionally abused in other ways by your partner or ex-partner? Answer Date of Assessment Author No 12/31/2023 1:02 PM DEPARTMENT CLERK Scotty, System Background * Within the last year, have you been afraid of your partner or ex-partner? Answer Date of Assessment Author No 12/31/2023 1:02 PM DEPARTMENT CLERK Aliciat, System Background * Within the last year, have you been raped or forced to have any kind of sexual activity by your partner or ex-partner? Answer Date of Assessment Author No 12/31/2023 1:02 PM DEPARTMENT CLERK Aliciat, System Background * Within the last year, have you been kicked, hit, slapped, or otherwise physically hurt by your partner or ex-partner? Answer Date of Assessment Author No 12/31/2023 1:02 PM DEPARTMENT CLERK Scotty, System Background * Q1: How often do you have a drink containing alcohol? Answer Date of Assessment Author Patient declined 12/31/2023 1:02 PM DEPARTMENT CLERK Aliciat, System Background * Q2: How many drinks containing alcohol do you have on a typical day when you are drinking? Answer Date of Assessment Author Patient declined 12/31/2023 1:02 PM DEPARTMENT CLERK Scotty, System Background * Q3: How often do you have six or more drinks on one occasion? Answer Date of Assessment Author Patient declined 12/31/2023 1:02 PM DEPARTMENT CLERK Scotty, System Background * Question Answer Date of Assessment Author Little interest or pleasure in doing things Not at all 12/31/2023 2:09 PM Cristin Rodriguez RMA Feeling down, depressed, or hopeless Not at all 12/31/2023 2:09 PM DEPARTMENT CLERK Cristin Tolentino RMA * Over the past 2 weeks, how often have you been bothered by any of the following problems? Question Answer Date of Assessment Author Patient Health Questionnaire -2 Score 0 12/31/2023 2:09 PM DEPARTMENT CLERK Cristin Tolentino RMA documented as of this encounter Plan of Treatment Upcoming Encounters Date Type Department Care Team (Late st Contact Info) Description 03/21/2025 4:30 PM CDT Office Visit [facility] - Primary Care - [place] [address] [place] [address] Shravan Burgos PAC [address] [place] [address] documented as of this encounter [...] Total Score: 0 12/31/19 24 2:09 PM DEPARTMENT CLERK documented as of this encounter Care Teams Flume Ride Operator Relationship Specialty Start Date End Date Shravan Burgos, PAC [address] [place] [address] PCP - General Physician Aircraft Electrician 12/31/23 Arnold Roberts MD [address] [place] [address] Consulting Physician Pulmonary Disease 07/26/23 documented as of this encounter
--- OUTSIDE RECORDS SUMMARY | 2024-11-30 18:07 | XMS_ITS | Encounter Summary ---
Author Organization [facility] Address [address] [facility] [place] [address] Phone Care Team Providers Care Highway Engineering Teacher Name Role Phone Sravani Ramsay MD Primary Care Provider Arnold Roberts MD Unavailable Reason for Visit * Reason Comments Medication Refill Encounter Details Date Type Department Care Team (Late st Contact Info) Description 09/10/2023 Refill [facility] - Primary Care - [place] [address] [place] [address] Sravani Ramsay MD [address] [place] [address] Medication Refill Social History Tobacco [...] Dept 08/25/23 Office Visit Fiorella Dhaliwal APRN, CLAIMS ADMINISTRATOR [facility] 04/23/23 Office Visit Sravani Ramsay MD [facility] 11/26/22 Office Visit Shravan Burgos PAC [facility] 11/16/22 Office Visit Amaya Kowalski APRN, CLAIMS ADMINISTRATOR [facility] Showing recent visits within [...] Associated Problems Recent Progress Patient-Stated? Author [facility] Behavioral Health On track(2019 9:50 [...] and past) that trigger mood concerns. [facility] Behavioral Health On track(2019 9:50 [...] documented as of this encounter Care Teams Highway Engineering Teacher Relationship Specialty Start Date End Date Sravani Ramsay MD [address] [place] [address] PCP - General Family Medicine 04/23/23 12/30/23 Arnold Roberts MD [address] [place] [address] Consulting Physician Pulmonary Disease 07/26/23 documented as of this encounter
--- OUTSIDE RECORDS SUMMARY | 2024-11-30 18:07 | XMS_ITS | Encounter Summary ---
Author Organization [facility] Address [address] [place] [address] Phone Care Team Providers Care Director Global Development Name Role Phone Arnold Roberts MD Unavailable Shravan Burgos Primary Care Provider Reason for Visit * Reason Comments Medication Refill Encounter Details Date Type Department Care Team (Late st Contact Info) Description 03/30/2024 Refill [facility] - Primary Care - [place] [address] [place] [address] Shravan Burgos PAC [address] [place] [address] Medication Refill Social History Tobacco Use Types Packs/Day Years Used Date Smoking Tobacco: Some Days Cigarettes Smokeless Tobacco: Never Comments:Pt has multiple day s in a row she abstains. Alcohol Use Standard Drinks/Week Comments Yes 5 (1 standard drink = 0.6 oz pur e alcohol) socially [facility] Utilities Answer Date Recorded In the past 12 months has [employer], gas, oil, or water company threatened to [...] How often do you attend mu-ism or judaism serv ices? Patient declined 12/31/2023 [...] Total Score - Questions 1-9 0 12/2023 [facility] of Occupat ional [facility] - Occupational Stress Questionnaire Answer Date [...] place to sleep or slept in a mcc (including now)? No 12/31/2023 Education Answer Date [...] Hospital 08/25/23 Office Visit Fiorella Dhaliwal APRN, EXPORT SALES MANAGER [facility] 04/23/23 Office Visit Sravani [...] Hospital 08/25/23 Office Visit Fiorella Dhaliwal APRN, EXPORT SALES MANAGER [facility] 04/23/23 Office Visit Sravani [...] Description 03/21/2025 4:30 PM CDT Office Visit [facility] - Primary Care - [place] [address] [place] [place] [address] Shravan Burgos PAC [address] [place] [address] documented as of this encounter [...] make a change Department associated with goal: [facility] BEHAVIORAL HEALTH SERVICES Steps [...] Total Score: 0 12/31/19 24 2:09 PM COTTON STRIPPER documented as of this encounter Care Teams Director Global Development Relationship Specialty Start Date End Date Shravan Burgos, PAC [address] [place] [address] PCP - General Physician Wash Tank Tender 12/31/23 Arnold Roberts MD [address] [place] [address] Consulting Physician Pulmonary Disease 07/26/23 documented as of this encounter
--- OUTSIDE RECORDS SUMMARY | 2024-11-30 18:07 | XMS_ITS | Encounter Summary ---
Author Organization [facility] Address [address] [facility] [place] [address] Phone Care Team Providers Care License Registration Examiner Name Role Phone Sravani Ramsay MD Primary Care Provider Arnold Roberts MD Unavailable Reason for Visit * Reason Comments Medication Refill Encounter Details Date Type Department Care Team (Late st Contact Info) Description 10/13/2023 Refill [facility] - Primary Care - [place] [address] [place] [address] Shravan Burgos, PAC [address] [place] [address] Medication Refill Social History Tobacco [...] Mohini Aguirre RN - 10/13/2023 11:29 AM FOLLOW UP SPECIALIST Medication failed the protocol, provider to review [...] 08/25/23 Office Visit Fiorella Dhaliwal APRN, DOUGLAS [facility] 04/23/23 Office Visit Sravani Ramsay MD [facility] 11/26/22 Office Visit Shravan Burgos, PAPI [facility] 11/16/22 Office Visit Amaya Kowalski APRN, TOBACCO SIEVE OPERATOR [facility] Showing recent visits within past 365 days and meeting all other requirements Future Appointments No visits were found meeting these conditions. Showing future appointments within next 90 days and meeting all other requirements OW UP SPECIALIST documented in this encounter Plan of Treatment Upcoming Encounters Date Type Department Care Team (Late st Contact Info) Description 03/21/2025 4:30 PM CDT Office Visit [facility] - Primary Care - [place] [address] [place] [address] Shravan Burgos, [facility] [address] [place] [address] documented as of this encounter Goals Goal Patient Goal Type Associated Problems Recent Progress Patient-Stated? Author [facility] Behavioral Health On track(2019 9:50 AM [...] documented as of this encounter Care Teams License Registration Examiner Relationship Specialty Start Date End Date Sravain Ramsay MD [address] [place] [address] PCP - General Family Medicine 04/23/23 12/30/23 Arnold Roberts MD [address] [place] [address] Consulting Physician Pulmonary Disease 07/26/23 documented as of this encounter
--- OUTSIDE RECORDS SUMMARY | 2024-11-30 18:07 | XMS_ITS | Encounter Summary ---
Author Organization [facility] Address [address] [facility] [place] [address] Phone Care Team Providers Care Binding Machine Operator Name Role Phone Arnold Roberts MD Unavailable Shravan Burgos Primary Care Provider Reason for Visit * Reason Comments Medication Refill Encounter Details Date Type Department Care Team (Late st Contact Info) Description 08/05/2024 Refill [facility] - Primary Care - [place] [address] [place] [address] Shravan Burgos PAC [address] [place] [address] Medication Refill Social History Tobacco Use Types Packs/Day Years Used Date Smoking Tobacco: Some Days Cigarettes Smokeless Tobacco: Never Comments:Pt has multiple day s in a row she abstains. Alcohol Use Standard Drinks/Week Comments Yes 5 (1 standard drink = 0.6 oz pur e alcohol) socially [facility] Utilities Answer Date Recorded In the past 12 months has [employer], gas, oil, or water company threatened to [...] declined 12/31/2023 How often do you attend episcopal or anabaptist serv ices? Patient declined 12/31/2023 Do you belong to any clubs o r organizations such as episcopal groups, unions, fraternal or athletic groups, or [...] Total Score - Questions 1-9 0 12/2023 [facility] of Occupat ional [facility] - Occupational Stress Questionnaire Answer Date [...] Dept 12/31/23 Office Visit Shravan Burgos PAC [facility] 08/25/23 Office Visit Fiorella Dhaliwal, BIOFUELS PRODUCTION MANAGER, BEEF SKINNER [facility] Showing recent visits within past 365 days and meeting all other requirements Future Appointments No visits were found meeting these conditions. Showing future appointments within next 90 days and meeting all other requirements documented in this encounter Plan of Treatment Upcoming Encounters Date Type Department Care Team (Late st Contact Info) Description 03/21/2025 4:30 PM CDT Office Visit [facility] - Primary Care - [place] [address] [place] [address] Shravan Burgos PAC [address] [place] [address] documented as of this encounter [...] Total Score: 0 12/31/19 24 2:09 PM DURALUMIN METALWORKER documented as of this encounter Care Teams Binding Machine Operator Relationship Specialty Start Date End Date Shravan Burgos, PAPI [address] [place] [phone] PCP - General Physician Buckle Assembler 12/31/23 Arnold Roberts MD [address] [place] [phone] Consulting Physician Pulmonary Disease 07/26/23 documented as of this encounter
--- OUTSIDE RECORDS SUMMARY | 2024-11-30 18:07 | XMS_ITS | Encounter Summary ---
Author Organization [facility] Address [address] [facility] [address] Phone Care Team Providers Care Wheel Tuner Name Role Phone Arnold Roberts MD Unavailable Shravan Burgos Primary Care Provider [phone] Reason for Visit * Reason Comments Medication Refill Encounter Details Date Type Department Care Team (Late st Contact Info) Description 01/26/2024 Refill [facility] - Primary Care - [place] [address] [place] [address] Shravan Burgos PAC [address] [place] [address] Medication Refill Social History Tobacco Use Types Packs/Day Years Used Date Smoking Tobacco: Some Days Cigarettes Smokeless Tobacco: Never Comments:Pt has multiple day s in a row she abstains. Alcohol Use Standard Drinks/Week Comments Yes 5 (1 standard drink = 0.6 oz pur e alcohol) socially [facility] Utilities Answer Date Recorded In the past 12 months has [employer], gas, oil, or water company threatened to [...] declined 12/31/2023 How often do you attend yazidi or pentecostalism serv ices? Patient declined 12/31/2023 Do you belong to any clubs o r organizations such as yazidi groups, unions, fraternal or athletic groups, or [...] Total Score - Questions 1-9 0 12/2023 [facility] of Occupat ional [facility] - Occupational Stress Questionnaire Answer Date [...] place to sleep or slept in a chcf (including now)? No 12/31/2023 Education Answer Date [...] Dept 12/31/23 Office Visit Shravan Burgos, PAPI [facility] 08/25/23 Office Visit Fiorella Dhaliwal APRN, YOUTH PROBATION OFFICER [facility] 04/23/23 Office Visit Sravani Ramsay MD [facility] Showing recent visits within past 365 days and meeting all other requirements Future Appointments No visits were found meeting these conditions. Showing future appointments within next 90 days and meeting all other requirements NCT BUSINESS INSTRUCTOR documented in this encounter Plan of Treatment Upcoming Encounters Date Type Department Care Team (Late st Contact Info) Description 03/21/2025 4:30 PM CDT Office Visit [facility] - Primary Care - [place] [address] [place] [address] Shravan Burgos PAC [address] [place] [address] documented as of this encounter Goals Goal Patient Goal Type Associated Problems Recent Progress Patient-Stated? Author Behavioral [facility] Behavioral Health On track(2019 9:50 AM [...] Total Score: 0 12/31/19 24 2:09 PM ADJUNCT BUSINESS INSTRUCTOR documented as of this encounter Care Teams Wheel Tuner Relationship Specialty Start Date End Date Shravan Burgos, PAC [address] [place] [address] PCP - General Physician Family Centered Specialist 12/31/23 Arnold Roberts MD [address] [place] [address] Consulting Physician Pulmonary Disease 07/26/23 documented as of this encounter
--- OUTSIDE RECORDS SUMMARY | 2024-11-30 18:07 | XMS_ITS | Encounter Summary ---
Author Organization [facility] Address [address] [place] [address] Phone Care Team Providers Care Retirement Plan Counselor Name Role Phone Arnold Roberts MD Unavailable Shravan Burgos PAC Primary Care Provider [phone] Reason for Referral * Consult, Test & Initiate Treatment (Less Than 2 Weeks) - Closed Specialty Diagnoses / Procedures Referred By Contac t Referred To Contact Diagnoses Other idiopathic scoliosis, unspecified spinal region Shravan Burgos, PAC [address] [place] [address] Phone: tel: fax: [facility] [address] [place] [address] 12[address] [place] [address] [place] [address] Phone: tel: fax: Referral ID Status Reason Start Date Expiration Date Visits Re quested Visits Authorized [id number] Closed 12/31/2023 1 1 Scheduling Instructions Irma is being referred to [facility] orthopedics or other specialist in patient's insurance [...] Apical abscess Moderate persistent asthma without complication TE RECRUITER Reason for Visit * Reason Comments Transition of Care Encounter Details Date Type Department Care Team (Late st Contact Info) Description 12/31/2023 2:15 PM REMOTE RECRUITER [facility] [place] [address] [place] [address] Shravan Burgos PAC [address] [place] [address] Anxiety (Primary Dx); Hypertriglyceridemia; Other [...] = 0.6 oz pur e alcohol) socially [facility] Utilities Answer Date Recorded In the past [...] declined 12/31/2023 How often do you attend confucianist or faith serv ices? Patient declined 12/31/2023 Do you belong to any clubs o r organizations such as confucianist groups, unions, fraternal or athletic groups, or [...] Total Score - Questions 1-9 0 12/2023 [facility] of Occupat ional Health - Occupational Stress [...] place to sleep or slept in a halfway (including now)? No 12/31/2023 Education Answer Date [...] Comments Blood Pressure 102/62 12/31/2023 2:13 PM REMOTE RECRUITER Pulse 89 12/31/2023 2:13 PM REMOTE RECRUITER Temperature 36.3 ??C (97.3 ??F) 12/31/2023 2:13 PM CS T Respiratory Rate 18 12/31/2023 2:13 PM REMOTE RECRUITER Oxygen Saturation 98% 12/31/2023 2:13 PM REMOTE RECRUITER Inhaled Oxygen Concentration - - Weight 65.1 kg (143 lb 9.6 oz) 12/31/2023 2:13 P M REMOTE RECRUITER Height - - Body Mass Index 26.26 07/26/2023 2:21 PM CDT documented in this encounter Functional Status * Audit-C Score Answer Date of Assessment Author -1 12/31/2023 1:02 PM REMOTE RECRUITER [facility], System Background * Within the last year, have you been humiliated or emotionally abused in other ways by your partner or ex-partner? Answer Date of Assessment Author No 12/31/2023 1:02 PM REMOTE RECRUITER [facility] Background * Within the last year, have you been afraid of your partner or ex-partner? Answer Date of Assessment Author No 12/31/2023 1:02 PM REMOTE RECRUITER [facility] Background * Within the last year, have you been raped or forced to have any kind of sexual activity by your partner or ex-partner? Answer Date of Assessment Author No 12/31/2023 1:02 PM REMOTE RECRUITER [facility] Background * Within the last year, have you been kicked, hit, slapped, or otherwise physically hurt by your partner or ex-partner? Answer Date of Assessment Author No 12/31/2023 1:02 PM REMOTE RECRUITER [facility] Background * Q1: How often do you have a drink containing alcohol? Answer Date of Assessment Author Patient declined 12/31/2023 1:02 PM REMOTE RECRUITER [employer], [facility] Background * Q2: How many drinks containing alcohol do you have on a typical day when you are drinking? Answer Date of Assessment Author Patient declined 12/31/2023 1:02 PM REMOTE RECRUITER [employer], [facility] Background * Q3: How often do you have six or more drinks on one occasion? Answer Date of Assessment Author Patient declined 12/31/2023 1:02 PM REMOTE RECRUITER [employer], [facility] Background * Question Answer Date [...] Shravan Burgos PAC - 12/31/2023 2:15 PM REMOTE RECRUITER Fasting labs today,. Referral to [facility] for [...] please call. Thanks for coming in today! TE RECRUITER TE RECRUITER documented in this encounter Progress Notes * [...] OR COUGH 09/17/22 Yes Amaya Kowalski APRN, HADOOP ENGINEER fenofibrate 160 MG Tablet Take 1 Tablet by mouth daily. Patient not taking: Reported on 12/31/2023 06/16/23 Sravani Ramsay MD ibuprofen (MOTRIN) 200 MG Tablet Take 3 Tabs by mouth every 6 hours as needed for Fever. 12/26/18 Yes Ti Ma, PAC ipratropium-albuterol (DUO-NEB) 0.5-2.5 (3) MG/3ML Solution INHALE 1 VIAL VIA NEBULIZER FOUR TIMES DAILY 09/18/22 Yes Amaya Kowalski APRN, HADOOP ENGINEER Respiratory Therapy Supplies (NEBULIZER) Device Use 4x/day prn. 02/14/19 Yes Amaya Kowalski APRN, HADOOP ENGINEER Respiratory Therapy Supplies (NEBULIZER/TUBING/MOUTHPIECE) Kit Use 4 [...] been addressed with the patient today: N/A TE RECRUITER * Cristin Tolentino RMA - 12/31/2023 2:15 PM CST Irma screened for Social Determinants of Health and screened positive for Tobacco Use. Patient declined resources. TE RECRUITER * Shravan Burgos PAC - 12/31/2023 2:15 [...] Patient Instructions Fasting labs today,. [facility] Refilled meds. Discussed at length [...] additions, deletions and changes made as appropriate. TE RECRUITER documented in this encounter Plan of Treatment Upcoming Encounters Date Type Department Care Team (Late st Contact Info) Description 03/21/2025 4:30 PM CDT Office Visit [facility] - Primary Care - [place] [address] [place] [address] Shravan Burgos PAC [address] [place] [address] Scheduled Orders Name Type Priority Associated Diagnoses [...] 9:50 AM CDT) Yes Eloise Jenkins, [facility] Note: Irma reported her goal for [...] * (ABNORMAL) LIPID PANEL (12/31/2023 2:52 PM REMOTE RECRUITER) CHOLESTEROL 168 <200 mg/dL 12/31/2023 5:21 PM [facility] TRIGLYCERIDES 366(H) <150 mg/dL 12/31/2023 5:21 PM [facility] HDL CHOLESTEROL 52 >40 mg/dL 5:21 PM [facility] LDL 43 <130 mg/dL 12/31/2023 5:21 PM [facility] VLDL 73(H) 10 - 50 mg/dL 12/31/2023 5:21 PM [facility] CHOL/HDL RATIO 3.2 0.0 - 4.4 12/31/2023 5:21 PM [facility] NON-HDL CHOLESTEROL 116 <130 mg/dL 12/31/2023 5:21 PM [facility] IS THE PATIENT REQUIRED TO BE FASTING? Yes 12/31/2023 5:21 PM REMOTE RECRUITER [facility] HAS THE PATIENT BEEN FASTING? Yes 12/31/2023 5:21 PM [facility] Blood Venipuncture / Unknown 12/31/2023 2:52 PM REMOTE RECRUITER 12/31/2023 2:52 PM REMOTE RECRUITER us Shravan Burgos PAC CHEMISTRY ORDERABLES Final R esult [facility] [address] [place] [address] * (ABNORMAL) CMP (COMPREHENSIVE METABOLIC PANEL) (12/31/2023 2:52 PM REMOTE RECRUITER) SODIUM 142 136 - 145 mmol/L 12/31/2023 5:21 PM [facility] POTASSIUM 4.4 3.5 - 5.1 mmol/L 12/31/2023 5:21 PM [facility] CHLORIDE 106 98 - 107 mmol/L 12/31/2023 5:21 PM [facility] CO2, VENOUS 26 22 - 30 mmol/L 12/31/2023 5:21 PM [facility] ANION GAP 14.4 <18.0 mmol/L 12/31/2023 5:21 PM [facility] GLUCOSE 84 70 - 99 mg/dL 12/31/2023 5:21 PM [facility] BUN 8 5 - 18 mg/dL 12/31/2023 5:21 PM [facility] CREATININE, BLOOD 0.68 0.60 - 1.00 mg/dL 12/31/2023 5:21 PM [facility] BUN/CREATININE RATIO 12 12 - 20 ratio 12/31/2023 5:21 PM [facility] TOTAL PROTEIN 8.2 6.3 - 8.2 g/dL 12/31/2023 5:21 PM [facility] ALBUMIN 4.5 3.5 - 5.0 g/dL 12/31/2023 5:21 PM [facility] A/G RATIO 1.2 1.0 - 2.2 12/31/2023 5:21 PM [facility] CALCIUM 9.0 8.7 - 10.5 mg/dL 12/31/2023 5:21 PM [facility] T BILI 0.4 0.2 - 1.2 mg/dL 12/31/2023 5:21 PM [facility] SGOT (AST) 35(H) 5 - 34 U/L 12/31/2023 5:21 PM [facility] SGPT (ALT) 57(H) 0 - 55 U/L 12/31/2023 5:21 PM [facility] ALKALINE PHOSPHATASE 68 40 - 150 U/L 12/31/2023 5:21 PM [facility] IS THE PATIENT REQUIRED TO BE FASTING? Yes 12/31/2023 5:21 PM [facility] HAS THE PATIENT BEEN FASTING? Yes 12/31/2023 5:21 PM [facility] GFR, ESTIMATED >60 >=60 12/31/2023 5:21 PM [facility] Comment: Creatinine Clearance is the preferred criteria for selecting drug dose adjustments in renally impaired patients. ??The GFR is provided as additional pertinent clinical information. GFR is reported in mL/min/1.73 sq m. Calculation based on the Chronic Kidney Disease Epidemiology Collaboration (CKD- EPI) equation refit without adjustment for race. GFR, EST. >60 >=60 024 5:21 PM [facility] GFR, EST. NONAFRICAN >60 >=60 12/31/2023 5:21 PM [facility] Blood Venipuncture / Unknown 12/31/2023 2:52 PM REMOTE RECRUITER 12/31/2023 2:52 PM REMOTE RECRUITER us Shravan Burgos PAC CHEMISTRY ORDERABLES Final R esult [facility] [address] [facility] [place] [address] documented in this encounter Visit Diagnoses Diagnosis Anxiety- Primary Anxiety state, unspecified Hypertriglyceridemia Pure hyperglyceridemia Other idiopathic scoliosis, unspecified spinal region Daytime somnolence Hypersomnia, unspecified Tobacco use disorder documented in this encounter Additional Health Concerns Assessment Noted Time PHQ-9 Depression Total Score: 0 12/31/19 24 2:09 PM REMOTE RECRUITER documented as of this encounter Care Teams Retirement Plan Counselor Relationship Specialty Start Date End Date Shravan Burgos, [facility] [address] [place] [address] PCP - General Physician Party Plan Salesperson 12/31/23 Arnold Roberts MD [address] [place] [address] Consulting Physician Pulmonary Disease 07/26/23 documented as of this encounter
--- OUTSIDE RECORDS SUMMARY | 2024-11-30 18:07 | XMS_ITS | Encounter Summary ---
Author Organization [facility] Address [address] [place] [address] Phone Care Team Providers Care Hand Thermal Cutter Name Role Phone Sravani Ramsay MD Primary Care Provider Arnold Roberts MD Unavailable Reason for Visit * Reason Onset Date Comments Medication Management 10/15/2023 Encounter Details Date Type Department Care Team (Late st Contact Info) Description 10/15/2023 Telephone [facility] [address] [place] [address] Sravani Ramsay MD [address] [place] [address] Medication Management Social History Tobacco Use Types [...] successfully [facility]. No further questions. OGRAPH ENLARGER * Telephone Encounter - Shravan Burgos PAC - 10/15/2023 4:18 PM CST Rx was accidentally sent as fax. Changed to eprescribe. Rx sent to pharmacy. OGRAPH ENLARGER * Telephone Encounter - Kiera Islas RN - 10/15/2023 4:06 PM CST S: Patient is calling in regards to recent ativan script that [facility] today B: She states she called [facility] and they have not received the order yet. A: The fax failed when sending to the pharmacy E-Prescribing Status: Transmission to pharmacy failed (10/15/2023 12:03 PM PHOTOGRAPH ENLARGER) R: Can provider resend this script please? Or escribe? OGRAPH ENLARGER documented in this encounter Plan of Treatment Upcoming Encounters Date Type Department Care Team (Late st Contact Info) Description 03/21/2025 4:30 PM CDT Office Visit [facility] - Primary Care - [place] [address] [place] [address] Shravan Burgos PAC [address] [place] [address] documented as of this encounter Goals Goal Patient Goal Type Associated Problems Recent Progress Patient-Stated? Author Behavioral [facility] Behavioral Health On track(2019 9:50 [...] and past) that trigger mood concerns. [facility]al [facility] Behavioral Health On track(2019 9:50 [...] as of this encounter Care Teams Hand Thermal Cutter Relationship Specialty Start Date End Date Sravani Ramsay MD [address] [place] [address] PCP - General Family Medicine 04/23/23 12/30/23 Arnold Roberts MD [address] [place] [address] Consulting Physician Pulmonary Disease 07/26/23 documented as of this encounter
--- OUTSIDE RECORDS SUMMARY | 2024-11-30 18:07 | XMS_ITS | Encounter Summary ---
Author Organization [facility] Address [address] [facility] [address] Phone Care Team Providers Care Hr Specialist Name Role Phone Arnold Roberts MD Unavailable Shravan Burgos Primary Care Provider Reason for Visit * Reason Comments Medication Refill Encounter Details Date Type Department Care Team (Late st Contact Info) Description 05/30/2024 Refill [facility] - Primary Care - [place] [address] [place] [address] Shravan Burgos PAC [address] [place] [address] Medication Refill Social History Tobacco Use Types Packs/Day Years Used Date Smoking Tobacco: Some Days Cigarettes Smokeless Tobacco: Never Comments:Pt has multiple day s in a row she abstains. Alcohol Use Standard Drinks/Week Comments Yes 5 (1 standard drink = 0.6 oz pur e alcohol) socially [facility] Utilities Answer Date Recorded In the past 12 months has [employer], gas, oil, or water company threatened to [...] declined 12/31/2023 How often do you attend christian or mosque serv ices? Patient declined 12/31/2023 Do you belong to any clubs o r organizations such as christian groups, unions, fraternal or athletic groups, or [...] Total Score - Questions 1-9 0 12/2023 [facility] of Occupat ional [facility] - Occupational Stress Questionnaire Answer Date [...] place to sleep or slept in a assisted (including now)? No 12/31/2023 Education Answer Date [...] Dept 12/31/23 Office Visit Shravan Burgos PAC [facility] 08/25/23 Office Visit Fiorella Dhaliwal, MARBLE POLISHER, LPC [facility] Showing recent visits within past 365 days and meeting all other requirements Future Appointments Date Type Provider Dept 06/30/24 Appointment Shravan Burgos PAC [facility] Showing future appointments within next 90 days and meeting all other requirements documented in this encounter Plan of Treatment Upcoming Encounters Date Type Department Care Team (Late st Contact Info) Description 03/21/2025 4:30 PM CDT Office Visit [facility] - Primary Care - [place] [address] [place] [address] Shravan Burgos PAC [address] [place] [address] documented as of this encounter [...] Total Score: 0 12/31/19 24 2:09 PM BIOSTATISTICS MANAGER documented as of this encounter Care Teams Hr Specialist Relationship Specialty Start Date End Date Shravan Burgos, PAC [address] [place] [address] PCP - General Physician Leather Staker 12/31/23 Arnold Roberts MD [address] [place] [address] Consulting Physician Pulmonary Disease 07/26/23 documented as of this encounter
--- OUTSIDE RECORDS SUMMARY | 2024-11-30 18:07 | XMS_ITS | Encounter Summary ---
Author Organization [facility] Address [address] [place] [address] Phone Care Team Providers Care Piano Accompanist Name Role Phone Arnold Roberts MD Unavailable Shravan Burgos Primary Care Provider Reason for Visit * Reason Comments Medication Refill Encounter Details Date Type Department Care Team (Late st Contact Info) Description 09/09/2024 Refill [facility] - Primary Care - [place] [address] [place] [address] Shravan Burgos PAC [address] [place] [address] Medication Refill Social History Tobacco Use Types Packs/Day Years Used Date Smoking Tobacco: Some Days Cigarettes Smokeless Tobacco: Never Comments:Pt has multiple day s in a row she abstains. Alcohol Use Standard Drinks/Week Comments Yes 5 (1 standard drink = 0.6 oz pur e alcohol) socially [facility] Utilities Answer Date Recorded In the past 12 months has [employer], gas, oil, or water company threatened to [...] declined 12/31/2023 How often do you attend baptist or mandaeism serv ices? Patient declined 12/31/2023 Do you belong to any clubs o r organizations such as baptist groups, unions, fraternal or athletic groups, or [...] 12/2023 [facility] of Occupat ional [facility] - Occupational Stress Questionnaire Answer Date [...] - 09/11/2024 2:40 PM CDT Routing to [employer] to contact patient. * Telephone Encounter - [...] Dept 12/31/23 Office Visit Shravan Burgos PAC [facility] Showing recent visits within past 365 days [...] [facility] - Primary Care - [place] [address] [place] [address] Shravan Burgos PAC [address] [place] [address] documented as of this encounter Goals Goal Patient Goal Type Associated Problems Recent Progress Patient-Stated? Author Behavioral [facility] Behavioral Health On track(2019 9:50 AM CDT) Yes Eloise Jenkins, [facility] Note: Irma reported her goal [...] Total Score: 0 12/31/19 24 2:09 PM [employer]INS[employer] FORMER BRACE END documented as of this encounter Care Teams Piano Accompanist Relationship Specialty Start Date End Date Shravan Burgos PAC [address] [place] [address] PCP - General Physician Certification Officer 12/31/23 Arnold Roberts MD [address] [place] [address] Consulting Physician Pulmonary Disease 07/26/23 documented as of this encounter
--- OUTSIDE RECORDS SUMMARY | 2024-11-30 18:07 | XMS_ITS | Encounter Summary ---
Author Organization [facility] Address [address] [place] [address] Phone Care Team Providers Care Mechanical Estimator Name Role Phone Arnold Roberts MD Unavailable Shravan Burgos Primary Care Provider Reason for Visit * Reason Comments Medication Refill Encounter Details Date Type Department Care Team (Late st Contact Info) Description 04/30/2024 Refill [facility] - Primary Care - [place] [address] [place] [address] Shravan Burgos PAC [address] [place] [address] Medication Refill Social History Tobacco Use Types Packs/Day Years Used Date Smoking Tobacco: Some Days Cigarettes Smokeless Tobacco: Never Comments:Pt has multiple day s in a row she abstains. Alcohol Use Standard Drinks/Week Comments Yes 5 (1 standard drink = 0.6 oz pur e alcohol) socially [facility] Utilities Answer Date Recorded In the past 12 months has [employer], gas, oil, or water company threatened to [...] declined 12/31/2023 How often do you attend hoahaoism or taoism serv ices? Patient declined 12/31/2023 Do you belong to any clubs o r organizations such as hoahaoism groups, unions, fraternal or athletic groups, or [...] Total Score - Questions 1-9 0 12/2023 [facility] of Occupat ional [facility] - Occupational Stress Questionnaire Answer [...] Dept 12/31/23 Office Visit Shravan Burgos, PAPI [facility] 08/25/23 Office Visit Fiorella Dhaliwal APRN, ADMINISTRATIVE EXECUTIVE [facility] Showing recent visits within past 365 days and meeting all other requirements Future Appointments Date Type Provider Dept 06/30/24 Appointment Shravan Burgos, PAPI [facility] Showing future appointments within next 90 days and meeting all other requirements documented in this encounter Plan of Treatment Upcoming Encounters Date Type Department Care Team (Late st Contact Info) Description 03/21/2025 4:30 PM CDT Office Visit [facility] - Primary Care - [place] [address] [place] [address] Shravan Burgos PAC [address] [place] [address] documented as of this encounter Goals Goal Patient Goal Type Associated Problems Recent Progress Patient-Stated? Author Behavioral [facility] Behavioral Health On track(2019 9:50 [...] and past) that trigger mood concerns. Behavioral [facility] Behavioral Health On track(2019 9:50 [...] Total Score: 0 12/31/19 24 2:09 PM METAL MODEL MAKER documented as of this encounter Care Teams Mechanical Estimator Relationship Specialty Start Date End Date Shravan Burgos, PAC [address] [place] [address] PCP - General Physician Wood Drilling Machine Operator 12/31/23 Arnold Roberts MD [address] [place] [address] Consulting Physician Pulmonary Disease 07/26/23 documented as of this encounter
--- OUTSIDE RECORDS SUMMARY | 2024-11-30 18:07 | XMS_ITS | Encounter Summary ---
Author Organization [facility] Address [address] [place] [address] Phone Care Team Providers Care Tax Staff Accountant Name Role Phone Arnold Roberts MD Unavailable Shravan Burgos PAC Primary Care Provider [phone] Encounter Details Date Type Department Care Team (Late st Contact Info) Description 12/31/2023 3:10 PM REHABILITATION COUNSELLOR Lab [facility] - Primary Care - [address] [address] Lab, [facility] Hypertriglyceridemia; Anxiety Discharge Disposition: Discharged to home [...] Recorded In the past 12 months has [employer], gas, oil, or water [employer] threatened to shut off services in your home? No 12/31/2023 Social Connection and Isolation Panel [NHANES] A nswer Date Recorded In a typical week, how many times do you talk on the phone with family, friends, or neighbors? Patient declined 12/31/2023 How often do you get togethe r with friends or relatives? Patient declined 12/31/2023 How often do you attend mosque or presybeterian serv ices? Patient declined 12/31/2023 Do you [...] Total Score - Questions 1-9 0 12/2023 [facility] Occupat ional [facility] - Occupational Stress Questionnaire Answer Date [...] of Assessment Author -1 12/31/2023 1:02 PM REHABILITATION COUNSELLOR Patient [facility], System Background * Within the last year, have you been humiliated or emotionally abused in other ways by your partner or ex-partner? Answer Date of Assessment Author No 12/31/2023 1:02 PM REHABILITATION COUNSELLOR Mychart, System Background * Within the last year, have you been afraid of your partner or ex-partner? Answer Date of Assessment Author No 12/31/2023 1:02 PM REHABILITATION COUNSELLOR Mychart, System Background * Within the last year, have you been raped or forced to have any kind of sexual activity by your partner or ex-partner? Answer Date of Assessment Author No 12/31/2023 1:02 PM REHABILITATION COUNSELLOR Mychart, System Background * Within the last year, have you been kicked, hit, slapped, or otherwise physically hurt by your partner or ex-partner? Answer Date of Assessment Author No 12/31/2023 1:02 PM REHABILITATION COUNSELLOR Mychart, System Background * Q1: How often do you have a drink containing alcohol? Answer Date of Assessment Author Patient declined 12/31/2023 1:02 PM REHABILITATION COUNSELLOR Mychart, System Background * Q2: How many drinks containing alcohol do you have on a typical day when you are drinking? Answer Date of Assessment Author Patient declined 12/31/2023 1:02 PM REHABILITATION COUNSELLOR Mychart, System Background * Q3: How often do you have six or more drinks on one occasion? Answer Date of Assessment Author Patient declined 12/31/2023 1:02 PM REHABILITATION COUNSELLOR Mychart, System Background * Question Answer Date of Assessment Author Little interest or pleasure in doing things Not at all 12/31/2023 2:09 PM REHABILITATION COUNSELLOR Cristin Tolentino RMA Feeling down, depressed, or hopeless Not at all 12/31/2023 2:09 PM REHABILITATION COUNSELLOR Cristin Tolentino RMA * Over the past 2 weeks, how often have you been bothered by any of the following problems? Question Answer Date of Assessment Author Patient Health Questionnaire -2 Score 0 12/31/2023 2:09 PM REHABILITATION COUNSELLOR Cristin Tolentino RMA documented as of this encounter Progress Notes * Patti Weaver - 12/31/2023 3:10 PM CST Irma presents for lab draw per order of Shravan Burgos HUMBERTO dated 12/31/23. Specimen collected fromright antecubital without incident. sah BILITATION COUNSELLOR documented in this encounter Plan of Treatment Upcoming Encounters Date Type Department Care Team (Late st Contact Info) Description 03/21/2025 4:30 PM CDT Office Visit [facility] - Primary Care - [address] [place] [address] Shravan Burgos PAC [address] [place] [address] documented as of this encounter [...] track(2019 9:50 AM CDT) No Eloise Jenkins, TRANSIT MANAGER Note: Irma will engage in a plan [...] SCREEN WITH REFLEX Routine 12/31/2023 2:52 PM REHABILITATION COUNSELLOR Anxiety THYROID SCREEN WITH REFLEX Routine 12/31/2023 2:52 PM REHABILITATION COUNSELLOR Anxiety CBC WITH AUTO DIFFERENTIAL Today 12/31/2023 2:52 PM REHABILITATION COUNSELLOR Hypertriglyceridemi a LIPID PANEL Today 12/31/2023 2:52 PM REHABILITATION COUNSELLOR Hypertriglyceridemi a CMP (COMPREHENSIVE METABOLIC PANEL) Routine 12/31/2023 2:52 PM REHABILITATION COUNSELLOR Hypertriglyceridemi a COMPLETE BLOOD COUNT (CBC) WITH DIFF Today 12/31/2023 2:52 PM REHABILITATION COUNSELLOR Hypertriglyceridemi a documented in this encounter Results * THYROID SCREEN WITH REFLEX (12/31/2023 2:52 PM REHABILITATION COUNSELLOR) Pathologist [facility] TSH 1.113 0.300 - 5.000 mIU/L 12/31/2023 5:40 PM REHABILITATION COUNSELLOR [facility] Blood Venipuncture / Unknown 12/31/2023 2:52 PM REHABILITATION COUNSELLOR 12/31/2023 2:52 PM REHABILITATION COUNSELLOR us Shravan Burgos PAC CHEMISTRY ORDERABLES Final R esult [facility] [address] [place] [address] * (ABNORMAL) CBC WITH AUTO DIFFERENTIAL (12/31/2023 2:52 PM REHABILITATION COUNSELLOR) [facility] WBC 7.75 4.00 - 12.00 10(3)/mcL 12/31/2023 5:08 PM REHABILITATION COUNSELLOR [facility] RBC 4.65 3.80 - 5.30 10(6)/mcL 12/31/2023 5:08 PM [facility] HEMOGLOBIN (HGB) 14.5 12.0 - 15.8 g/dL 12/31/2023 5:08 PM [facility] HEMATOCRIT (HCT) 44.0 36.0 - 47.0 % 12/31/2023 5:08 PM [facility] MCV 94.6 82.0 - 96.0 fL 12/31/2023 5:08 PM [facility] MCH 31.2 26.0 - 34.0 pg 12/31/2023 5:08 PM [facility] MCHC 33.0 31.0 - 36.0 g/dL 12/31/2023 5:08 PM [facility] PLATELET COUNT 307 140 - 440 10(3)/mcL 12/31/2023 5:08 PM [facility] RDW 12.8 11.8 - 15.5 % 12/31/2023 5:08 PM [facility] MPV 12.8(H) 9.7 - 12.4 fL 12/31/2023 5:08 PM [facility] NEUTROPHILS 38.4(L) 47.0 - 73.0 % 12/31/2023 5:08 PM [facility] LYMPHOCYTES 45.8(H) 18.0 - 42.0 % 12/31/2023 5:08 PM [facility] MONOCYTES 8.8 4.0 - 12.0 % 12/31/2023 5:08 PM [facility] EOSINOPHILS 6.1(H) 0.0 - 5.0 % 12/31/2023 5:08 PM [facility] BASOPHILS 0.9 0.0 - 1.0 % 12/31/2023 5:08 PM [facility] ABSOLUTE NEUTROPHILS 2.98 1.60 - 7.70 10(3)/[facility] 12/31/2023 5:08 PM [facility] ABSOLUTE LYMPHOCYTES 3.55(H) 1.30 - 3.20 10(3)/[facility] 12/31/2023 5:08 PM [facility] ABSOLUTE MONOCYTES 0.68 0.20 - 1.00 10(3)/[facility] 12/31/2023 5:08 PM [facility] ABSOLUTE EOSINOPHIL 0.47(H) 0.00 - 0.40 10(3)/[facility] 12/31/2023 5:08 PM [facility] ABSOLUTE BASOPHILS 0.07 0.00 - 0.10 10(3)/[facility] 12/31/2023 5:08 PM [facility] NRBC PER 100 WBC 0 12/31/19 5:08 PM [facility] Blood Venipuncture / Unknown 12/31/2023 2:52 PM REHABILITATION COUNSELLOR 12/31/2023 2:52 PM REHABILITATION COUNSELLOR us Shravan Burgos PAC HEMATOLOGY ORDERABLES Final Result [facility] [address] [place] [address] * (ABNORMAL) LIPID PANEL (12/31/2023 2:52 PM REHABILITATION COUNSELLOR) CHOLESTEROL 168 <200 mg/dL 12/31/2023 5:21 PM REHABILITATION COUNSELLOR [facility] TRIGLYCERIDES 366(H) <150 mg/dL 12/31/2023 5:21 PM REHABILITATION COUNSELLOR [facility] HDL CHOLESTEROL 52 >40 mg/dL 5:21 PM REHABILITATION COUNSELLOR [facility] LDL 43 <130 mg/dL 12/31/2023 5:21 PM REHABILITATION COUNSELLOR [facility] VLDL 73(H) 10 - 50 mg/dL 12/31/2023 5:21 PM REHABILITATION COUNSELLOR [facility] CHOL/HDL RATIO 3.2 0.0 - 4.4 12/31/2023 5:21 PM REHABILITATION COUNSELLOR [facility] NON-HDL CHOLESTEROL 116 <130 mg/dL 12/31/2023 5:21 PM REHABILITATION COUNSELLOR [facility] IS THE PATIENT REQUIRED TO BE FASTING? Yes 12/31/2023 5:21 PM [facility] HAS THE PATIENT BEEN FASTING? Yes 12/31/2023 5:21 PM [facility] Blood Venipuncture / Unknown 12/31/2023 2:52 PM REHABILITATION COUNSELLOR 12/31/2023 2:52 PM REHABILITATION COUNSELLOR Shravan Burgos PAC CHEMISTRY ORDERABLES Final R esult [facility] [address] [place] [address] * (ABNORMAL) CMP (COMPREHENSIVE METABOLIC PANEL) (12/31/2023 2:52 PM REHABILITATION COUNSELLOR) SODIUM 142 136 - 145 mmol/L 12/31/2023 5:21 PM REHABILITATION COUNSELLOR [facility] POTASSIUM 4.4 3.5 - 5.1 mmol/L 12/31/2023 5:21 PM REHABILITATION COUNSELLOR [facility] CHLORIDE 106 98 - 107 mmol/L 12/31/2023 5:21 PM [facility] CO2, VENOUS 26 22 - 30 mmol/L 12/31/2023 5:21 PM [facility] ANION GAP 14.4 <18.0 mmol/L 12/31/2023 5:21 PM [facility] GLUCOSE 84 70 - 99 mg/dL 12/31/2023 5:21 PM [facility] BUN 8 5 - 18 mg/dL 12/31/2023 5:21 PM [facility] CREATININE, BLOOD 0.68 0.60 - 1.00 mg/dL 12/31/2023 5:21 PM [facility] BUN/CREATININE RATIO 12 12 - 20 ratio 12/31/2023 5:21 PM [facility] TOTAL PROTEIN 8.2 6.3 - 8.2 g/dL 12/31/2023 5:21 PM [facility] ALBUMIN 4.5 3.5 - 5.0 g/dL 12/31/2023 5:21 PM [facility] A/G RATIO 1.2 1.0 - 2.2 12/31/2023 5:21 PM [facility] CALCIUM 9.0 8.7 - 10.5 mg/dL 12/31/2023 5:21 PM [facility] T BILI 0.4 0.2 - 1.2 mg/dL 12/31/2023 5:21 PM [facility] SGOT (AST) 35(H) 5 - 34 U/L 12/31/2023 5:21 PM [facility] SGPT (ALT) 57(H) 0 - 55 U/L 12/31/2023 5:21 PM [facility] ALKALINE PHOSPHATASE 68 40 - 150 U/L 12/31/2023 5:21 PM [facility] IS THE PATIENT REQUIRED TO BE FASTING? Yes 12/31/2023 5:21 PM [facility] HAS THE PATIENT BEEN FASTING? Yes 12/31/2023 5:21 PM REHABILITATION COUNSELLOR [facility] GFR, ESTIMATED >60 >=60 12/31/2023 5:21 PM REHABILITATION COUNSELLOR [facility] Comment: Creatinine Clearance is the preferred criteria for selecting drug dose adjustments in renally impaired patients. ??The GFR is provided as additional pertinent clinical information. GFR is reported in mL/min/1.73 sq m. Calculation based on the Chronic Kidney Disease Epidemiology Collaboration (CKD- EPI) equation refit without adjustment for race. GFR, EST. >60 >=60 024 5:21 PM REHABILITATION COUNSELLOR [facility] GFR, EST. NONAFRICAN >60 >=60 12/31/2023 5:21 PM REHABILITATION COUNSELLOR [facility] Blood Venipuncture / Unknown 12/31/2023 2:52 PM REHABILITATION COUNSELLOR 12/31/2023 2:52 PM REHABILITATION COUNSELLOR us Shravan Burgos PAC CHEMISTRY ORDERABLES Final R esult [facility] [address] [place] [address] documented in this encounter Visit Diagnoses Diagnosis Hypertriglyceridemia Pure hyperglyceridemia Anxiety Anxiety state, unspecified documented in this encounter Additional Health Concerns Assessment Noted Time PHQ-9 Depression Total Score: 0 12/31/19 24 2:09 PM REHABILITATION COUNSELLOR documented as of this encounter Care Teams Tax Staff Accountant Relationship Specialty Start Date End Date Shravan Burgos, PAC [address] [place] [address] PCP - General Physician Automatic Fabric Cutter 12/31/23 Arnold Roberts MD [address] [place] [address] Consulting Physician Pulmonary Disease 07/26/23 documented as of this encounter
--- OUTSIDE RECORDS SUMMARY | 2024-11-30 18:07 | XMS_ITS | Encounter Summary ---
Author Organization [facility] Address [address] [place] [address] Phone Care Team Providers Care Senior Core Java Developer Name Role Phone Sravani Ramsay MD Primary Care Provider Arnold Roberts MD Unavailable Reason for Visit * Reason Onset Date Comments Results 09/06/2023 Encounter Details Date Type Department Care Team (Late st Contact Info) Description 09/06/2023 Telephone [facility] [address] [place] [address] Sravani Ramsay MD [address] [place] [address] Results Social History Tobacco Use Types Packs/Day [...] CNP 09/06/2023 ??9:48 AM CDT Back to [facility] Attempted ??to call patient with results of Ct scan. Voicemail left for her to return the call. ?? Assessment: Na Recommendation: Please call patient back after 3 pm today. documented in this encounter Plan of Treatment Upcoming Encounters Date Type Department Care Team (Late st Contact Info) Description 03/21/2025 4:30 PM CDT Office Visit [facility] - Primary Care - [place] [address] [place] [address] Shravan Burgos, PAPI [address] [place] [address] documented as of this encounter Goals Goal Patient Goal Type Associated Problems Recent Progress Patient-Stated? Author [facility] Behavioral Health On track(2019 9:50 [...] and past) that trigger mood concerns. Behavioral [facility] Behavioral Health On track(2019 9:50 AM CDT) No Eliose Jenkins LCPC Note: Irma will engage in [...] documented as of this encounter Care Teams Senior Core Java Developer Relationship Specialty Start Date End Date Sravani Ramsay MD [address] [place] [address] PCP - General Family Medicine 04/23/23 12/30/23 Arnold Roberts MD [address] [place] [address] Consulting Physician Pulmonary Disease 07/26/23 documented as of this encounter
--- OUTSIDE RECORDS SUMMARY | 2024-11-30 18:07 | XMS_ITS | Encounter Summary ---
Author Organization [facility] Address [address] [place] [address] Phone Care Team Providers Care Sound Installation Worker Name Role Phone Sravani Ramsay MD Primary Care Provider Arnold Roberts MD Unavailable Encounter Details Date Type Department Care Team (Late st Contact Info) Description 09/06/2023 Telephone [facility] - [facility] [place] [address] [place] [address] Firoella Dhaliwal APRN, CNP [address] [place] [address] Social History Tobacco Use Types [...] on: 10/07/2023 09:25 AM Modules accepted: Orders ANIST * Telephone Encounter - Fiorella Dhaliwal APRN, CNP - 09/06/2023 4:26 PM CDT Pt was called with results of CT scan. She has seen her TIRE INSTALLER in the interm with a negative exam and testing. Her Junior Electrical Engineer is referring her to urology. Pt will be referred to GI. documented in this encounter Plan of Treatment Upcoming Encounters Date Type Department Care Team (Late st Contact Info) Description 03/21/2025 4:30 PM CDT Office Visit [facility] - Primary Care - [place] [address] [place] [address] Shravan Burgos PAC [address] [place] [address] documented as of this encounter Goals [...] documented as of this encounter Care Teams Sound Installation Worker Relationship Specialty Start Date End Date Sravani Ramsay MD [address] [place] [address] PCP - General Family Medicine 04/23/23 12/30/23 Arnold Roberts MD [address] [facility] [place] [address] Consulting Physician Pulmonary Disease 07/26/23 documented as of this encounter
--- OUTSIDE RECORDS SUMMARY | 2024-11-30 18:07 | XMS_ITS | Encounter Summary ---
Author Organization [facility] Care Team Providers Care Building Services Supervisor Name Role Phone Sravani Ramsay MD Primary Care Provider [phone] Arnold Roberts MD Unavailable Encounter Details Date [...] 03/21/2025 4:30 PM CDT Office Visit [facility] - Primary Care - [address] [place] [address] Shravan Burgos, PAC [address] [place] [address] documented as of this encounter Goals Goal Patient Goal Type Associated Problems Recent Progress Patient-Stated? Author Behavioral [facility] Behavioral Health On track(2019 9:50 [...] documented as of this encounter Care Teams Building Services Supervisor Relationship Specialty Start Date End Date Sravani Ramsay MD [address] [place] [address] PCP - General Family Medicine 04/23/23 12/30/23 Arnold Roberts MD [address] [place] [address] Consulting Physician Pulmonary Disease 07/26/23 documented as of this encounter
--- OUTSIDE RECORDS SUMMARY | 2024-11-30 18:07 | XMS_ITS | Encounter Summary ---
Author Organization [facility] Address [address] [place] [address] Phone Care Team Providers Care Drill Press Set Up Operator Name Role Phone Sravani Ramsay MD Primary Care Provider rAnold Roberts MD Unavailable Encounter Details Date Type Department Care Team (Late st Contact Info) Description 11/09/2023 Telephone [facility] [address] [place] [address] Fili Perez MD [address] [address] Social History Tobacco Use Types Packs/Day Years [...] 9:09 AM CST Referral letter - urology ICATION MANAGER documented in this encounter Plan of Treatment Upcoming Encounters Date Type Department Care Team (Late st Contact Info) Description 03/21/2025 4:30 PM CDT Office Visit [facility] - Primary Care - [place] [address] [place] [address] Shravan Burgos PAC [address] [place] [address] documented as of this encounter [...] documented as of this encounter Care Teams Drill Press Set Up Operator Relationship Specialty Start Date End Date Sravani Ramsay MD [address] [place] [address] PCP - General Family Medicine 04/23/23 12/30/23 Arnold Roberts MD [address] [place] [address] Consulting Physician Pulmonary Disease 07/26/23 documented as of this encounter
--- OUTSIDE RECORDS SUMMARY | 2024-11-30 18:07 | XMS_ITS | Encounter Summary ---
Author Organization [facility] Address [address] [place] [place] [address] Phone Care Team Providers Care Collateral Analyst Name Role Phone Arnold Roberts MD Unavailable Shravan Burgos PAC Primary Care Provider [phone] Reason for Visit * Reason Onset Date Comments Referral 04/05/2024 Encounter Details Date Type Department Care Team (Late st Contact Info) Description 04/05/2024 Telephone [facility] [address] [place] [address] Shravan Burgos, PAC [address] [place] [address] Referral Social History Tobacco Use Types Packs/Day Years Used Date Smoking Tobacco: Some Days Cigarettes Smokeless Tobacco: Never Comments:Pt has multiple day s in a row she abstains. Alcohol Use Standard Drinks/Week Comments Yes 5 (1 standard drink = 0.6 oz pur e alcohol) socially [facility] Utilities Answer Date Recorded In the past 12 months has [employer] electric, gas, oil, or water company threatened [...] declined 12/31/2023 How often do you attend religious or sabianist serv ices? Patient declined 12/31/2023 Do you belong to any clubs o r organizations such as religious groups, unions, fraternal or athletic groups, or [...] Total Score - Questions 1-9 0 12/2023 [facility] - Occupational Stress Questionnaire Answer [...] place to sleep or slept in a m[facility]p (including now)? No 12/31/2023 Education Answer Date [...] approval. Will need faxed to her at [phone]. * Telephone Encounter - Shravan Burgos PAC - 04/05/2024 9:37 AM CDT Order placed. Please fax to office. * Telephone Encounter - Fox Patten, RN - 04/05/2024 9:17 AM CDT Cassie from [facility] calling. She states that the patient is coming in today but they need the referral order fixed, in order to help her. She states that the original order was for sleep medicine but they need an order for a Home Sleep Study. Please order as appropriate. Office fax number provided by Cassie is [phone]. Cassie also requested office visit notes discussing the need for the sleep study. Office visit notes from 12/31/23 faxed to office. documented in this encounter Plan of Treatment Upcoming Encounters Date Type Department Care Team (Late st Contact Info) Description 03/21/2025 4:30 PM CDT Office Visit [facility] - Primary Care - [place] [address] [place] [address] Shravan Burgos PAC [address] [place] [address] documented as of this encounter Goals Goal Patient Goal Type Associated Problems Recent Progress Patient-Stated? Author Behavioral Health Behavioral Health On track(2019 9:50 AM CDT) Yes Eloise Jenkins, [facility] Note: Irma reported her goal for psychotherapy is to help me be able to deal with things in the present and in her past that are contributing to low and anxious mood. Goal Reviewed with: patient Readiness to change: Thinking about making a change Department associated with goal: [facility] Steps to [...] On track(2019 9:50 AM CDT) Eloise Mix, [facility] Note: Irma will engage in a plan of action to improve emotional and mental wellbeing. Goal Reviewed with: patient Readiness to change: Not yet ready to make a change Department associated with goal: [facility] Steps to [...] Total Score: 0 12/31/19 24 2:09 PM MANAGER TITLE documented as of this encounter Care Teams Collateral Analyst Relationship Specialty Start Date End Date Shravan Burgos, PAPI [address] [place] [address] PCP - General Physician Solutions Delivery Consultant 12/31/23 Arnold Roberts MD [address] [place] [address] Consulting Physician Pulmonary Disease 07/26/23 documented as of this encounter
--- OUTSIDE RECORDS SUMMARY | 2024-11-30 18:07 | XMS_ITS | Encounter Summary ---
Author Organization [facility] Address [address] [facility] [place] [address] Phone Care Team Providers Care Air Valve Mechanic Name Role Phone Arnold Roberts MD Unavailable Shravan Burgos Primary Care Provider [phone] Reason for Visit * Reason Comments Medication Refill Encounter Details Date Type Department Care Team (Late st Contact Info) Description 03/01/2024 Refill [facility] - Primary Care - [place] [address] [place] [address] Shravan Burgos PAC [address] [place] [address] Medication Refill Social History Tobacco Use Types Packs/Day Years Used Date Smoking Tobacco: Some Days Cigarettes Smokeless Tobacco: Never Comments:Pt has multiple day s in a row she abstains. Alcohol Use Standard Drinks/Week Comments Yes 5 (1 standard drink = 0.6 oz pur e alcohol) socially [facility] Utilities Answer Date Recorded In the past 12 months has [employer], gas, oil, or water company threatened to [...] How often do you attend mosque or advent serv ices? Patient declined 12/31/2023 Do you [...] [facility] of Occupat ional [facility] - Occupational Stress Questionnaire Answer Date Recorded [...] Dept 12/31/23 Office Visit Shravan Burgos PAC [facility] 08/25/23 Office Visit Fiorella Dhaliwal APRN, CREDIT SUPPORT COUNSELOR [facility] 04/23/23 Office Visit Sravani Ramsay MD [facility] Showing recent visits within past [...] CDT Office Visit [facility] - Primary Care - [place] [address] [place] [address] Shravan Burgos, PAPI [address] [place] [address] documented as of this encounter Goals Goal Patient Goal Type Associated Problems Recent Progress Patient-Stated? Author [facility] Behavioral Health On track(2019 9:50 AM CDT) [...] and past) that trigger mood concerns. Behavioral [facility] Behavioral Health On track(2019 9:50 AM CDT) [...] Total Score: 0 12/31/19 24 2:09 PM AUDIO VISUAL MANAGER documented as of this encounter Care Teams Air Valve Mechanic Relationship Specialty Start Date End Date Shravan Burgos, [facility] [address] [place] [address] PCP - General Physician Outside Physical Damage Appraiser 12/31/23 Arnold Roberts MD [address] [place] [address] Consulting Physician Pulmonary Disease 07/26/23 documented as of this encounter
--- OUTSIDE RECORDS SUMMARY | 2024-11-30 18:07 | XMS_ITS | Encounter Summary ---
Author Organization [facility] Address [address] [place] [address] Phone Care Team Providers Care Polymerization Supervisor Name Role Phone Arnold Roberts MD Unavailable Shravan Burgos PAC Primary Care Provider [phone] Encounter Details Date Type Department Care Team (Late st Contact Info) Description 05/25/2024 Transcribe Orders [facility] Central Scheduling [address] [place] [address] Veronika Orantes APRN, QUARTER SUPERVISOR [address] [place] [address] Visit for screening mammogram (Primary Dx) Social History Tobacco Use Types Packs/Day Years Used Date Smoking Tobacco: Some Days Cigarettes Smokeless Tobacco: Never Comments:Pt has multiple day s in a row she abstains. Alcohol Use Standard Drinks/Week Comments Yes 5 (1 standard drink = 0.6 oz pur e alcohol) socially AH Utilities Answer Date Recorded In the past 12 months has [employer] electric, gas, oil, or water company threatened [...] declined 12/31/2023 How often do you attend buddhist or tenriism serv ices? Patient declined 12/31/2023 Do you belong to any clubs o r organizations such as buddhist groups, unions, fraternal or athletic groups, or [...] Score - Questions 1-9 0 12/2023 [facility] of Occupat ional [facility] - Occupational Stress Questionnaire Answer Date Recorded [...] 4:30 PM CDT Office Visit [facility] - Primary Care - [place] [address] [place] [address] Shravan Burgos PAC [address] [place] [address] documented as of this encounter [...] Total Score: 0 12/31/19 24 2:09 PM ELECTRIC BLASTING CAP ASSEMBLER documented as of this encounter Care Teams Polymerization Supervisor Relationship Specialty Start Date End Date Shravan Burgos PAC [address] [place] [address] PCP - General Physician Auto Servicer 12/31/23 Arnold Roberts MD [address] [place] [address] Consulting Physician Pulmonary Disease 07/26/23 documented as of this encounter
--- OUTSIDE RECORDS SUMMARY | 2024-11-30 18:07 | XMS_ITS | Encounter Summary ---
Author Organization [facility] Address [address] [facility] [place] [address] Phone Care Team Providers Care Manager Field Sales Name Role Phone Sravani Ramsay MD Primary Care Provider [phone] Arnold Roberts MD Unavailable Reason for Visit * Reason Comments Medication Refill Encounter Details Date Type Department Care Team (Late st Contact Info) Description 11/14/2023 Refill [facility] - Primary Care - [place] [address] [place] [address] Shravan Burgos, PAC [address] [place] [address] Medication Refill Social History Tobacco [...] 2:02 PM CST See MyChart encounter 11/14/23. AL ECONOMIST * Telephone Encounter - Latia Garcia RN - 11/16/2023 1:26 PM CST Routing to covering provider. AL ECONOMIST * Telephone Encounter - Demar Desouza RN [...] Dept 08/25/23 Office Visit Fiorella Dhaliwal APRN, MEDICAL RECORD TRANSCRIBER [facility] 04/23/23 Office Visit Sravani Ramsay MD [facility] 11/26/22 Office Visit Shravan Burgos PAC [facility] 11/16/22 Office Visit Amaya Kowalski APRN, MEDICAL RECORD TRANSCRIBER [facility] Showing recent visits within past 365 days and meeting all other requirements Future Appointments No visits were found meeting these conditions. Showing future appointments within next 90 days and meeting all other requirements AL ECONOMIST documented in this encounter Plan of Treatment Upcoming Encounters Date Type Department Care Team (Late st Contact Info) Description 03/21/2025 4:30 PM CDT Office Visit [facility] - Primary Care - [place] [address] [place] [address] Shravan Burgos PAC [address] [place] [address] documented as of this encounter Goals Goal Patient Goal Type Associated Problems Recent Progress Patient-Stated? Author Behavioral [facility] Behavioral Health On track(2019 9:50 AM CDT) Yes Eloise Jenkins LCPC Note: Irma reported her goal for psychotherapy is to help me be able to deal with things in the present and in her past that are contributing to low and anxious mood. Goal Reviewed with: patient Readiness to change: Thinking about making a change Department associated with goal: [facility] BE[facility]AVIORAL HEALTH SERVICES Steps to [...] that trigger mood concerns. Behavioral [facility] Behavioral Health On track(2019 9:50 AM CDT) No Eloise Jenkins LCPC Note: Irma will engage in a plan of action to improve emotional and mental wellbeing. Goal Reviewed with: patient Readiness to change: Not yet ready to make a change Department associated with goal: [facility] Steps to [...] as of this encounter Care Teams Manager Field Sales Relationship Specialty Start Date End Date Sravani Ramsay MD [address] [place] [address] PCP - General Family Medicine 04/23/23 12/30/23 Arnold Roberts MD [address] [place] [address] Consulting Physician Pulmonary Disease 07/26/23 documented as of this encounter
--- OUTSIDE RECORDS SUMMARY | 2024-11-30 18:07 | XMS_ITS | Encounter Summary ---
Author Organization [facility] Address [address] [place] [address] Phone Care Team Providers Care Poultry Farmer Meat Name Role Phone Arnold Roberts MD Unavailable Shravan Burgos Primary Care Provider Reason for Visit * Reason Comments Medication Refill Encounter Details Date Type Department Care Team (Late st Contact Info) Description 07/03/2024 Refill [facility] - Primary Care - [place] [address] [place] [address] Shravan Burgos PAC [address] [place] [address] Medication Refill Social History Tobacco Use Types Packs/Day Years Used Date Smoking Tobacco: Some Days Cigarettes Smokeless Tobacco: Never Comments:Pt has multiple day s in a row she abstains. Alcohol Use Standard Drinks/Week Comments Yes 5 (1 standard drink = 0.6 oz pur e alcohol) socially AHC Utilities Answer Date Recorded In the past 12 months has [employer], gas, oil, or water company threatened to [...] How often do you attend denominational or caodaism serv ices? Patient declined 12/31/2023 Do you [...] Total Score - Questions 1-9 0 12/2023 [facility] of Occupat ional [facility] - Occupational Stress Questionnaire Answer Date [...] Dept 12/31/23 Office Visit Shravan Burgos PAC [facility] 08/25/23 Office Visit Fiorella Dhaliwal APRN, REHABILITATION INSPECTOR [facility] Showing recent visits within [...] CDT Office Visit [facility] - Primary Care - [place] [address] [place] [address] Shravan Burgos PAC [address] [place] [address] documented as of this encounter [...] Total Score: 0 12/31/19 24 2:09 PM RENTAL MANAGEMENT TRAINEE documented as of this encounter Care Teams Poultry Farmer Meat Relationship Specialty Start Date End Date Shravan Burgos, [facility] [address] [place] [address] PCP - General Physician Supervising Producer 12/31/23 Arnold Roberts MD [address] [place] [address] Consulting Physician Pulmonary Disease 07/26/23 documented as of this encounter
--- OUTSIDE RECORDS SUMMARY | 2024-11-30 18:07 | XMS_ITS | Encounter Summary ---
Author Organization [employer] Care Team Providers Care Lace Roller Operator Name Role Phone Sravani Ramsay MD Primary Care Provider [phone] Arnold Roberts MD Unavailable Encounter Details Date [...] Description 03/21/2025 4:30 PM CDT Office Visit [facility] Medical [facility] - Primary Care - [place] [address] [place] [address] Shravan Burgos, PAPI [address] [place] [address] documented as of this encounter Goals Goal Patient Goal Type Associated Problems Recent Progress Patient-Stated? Author Behavioral [facility] Behavioral Health On track(2019 9:50 AM CDT) [...] documented as of this encounter Care Teams Lace Roller Operator Relationship Specialty Start Date End Date Sravani Ramsay MD [address] [place] [address] PCP - General Family Medicine 04/23/23 12/30/23 Arnold Roberts MD [address] [place] [address] Consulting Physician Pulmonary Disease 07/26/23 documented as of this encounter
--- OUTSIDE RECORDS SUMMARY | 2024-11-30 18:07 | XMS_ITS | Encounter Summary ---
Author Organization [facility] Address [address] [address] Phone Care Team Providers Care Trade Economist Name Role Phone Arnold Roberts MD Unavailable Shravan Burgos Primary Care Provider Reason for Visit * Reason Onset Date Comments Results 01/03/2024 Labs Encounter Details Date Type Department Care Team (Late st Contact Info) Description 01/03/2024 Telephone [facility] - Primary Care - [place] [address] [place] [address] Shravan Burgos, PAPI [address] [place] [address] Results (Labs) Social History Tobacco Use Types Packs/Day Years Used Date Smoking Tobacco: Some Days Cigarettes Smokeless Tobacco: Never Comments:Pt has multiple day s in a row she abstains. Alcohol Use Standard Drinks/Week Comments Yes 5 (1 standard drink = 0.6 oz pur e alcohol) socially AHC Utilities Answer Date Recorded In the past 12 months has [employer], gas, oil, or water company threatened to [...] declined 12/31/2023 How often do you attend restorationist or tenriism serv ices? Patient declined 12/31/2023 Do you belong to any clubs o r organizations such as restorationist groups, unions, fraternal or athletic groups, or [...] Total Score - Questions 1-9 0 12/2023 [facility] of Occupat ional Health - Occupational Stress [...] if symptoms worsen or do not improve. WASHER FEEDER * Telephone Encounter - Latia Garcia RN - 01/03/2024 11:43 AM CST See [employer] message. WASHER FEEDER * Telephone Encounter - Latia Garcia RN - 01/03/2024 8:32 AM CST [employer] message sent. WASHER FEEDER * Telephone Encounter - Latia Garcia RN - 01/03/2024 8:30 AM CST ----- Message from PAPI Danielle sent at 01/02/2024 4:35 PM WOOL WASHER FEEDER ----- Recent blood work significant only for elevated triglycerides at 366. Please ensure she is remaining compliant with fenofibrate and also encourage her to follow a low fat diet and avoid greasy, friedfoods. Keep follow up as scheduled, but please schedule an appt for labs prior to appt. Lab orders placed. Please make patient aware. WASHER FEEDER documented in this encounter Plan of Treatment Upcoming Encounters Date Type Department Care Team (Late st Contact Info) Description 03/21/2025 4:30 PM CDT Office Visit [facility] Medical [facility] - Primary Care - [place] [address] [place] [address] Shravan Burgos PAC [address] [place] [address] documented as of this encounter [...] Total Score: 0 12/31/19 24 2:09 PM WOOL WASHER FEEDER documented as of this encounter Care Teams Trade Economist Relationship Specialty Start Date End Date Shravan Burgos, PAC [address] [place] [address] PCP - General Physician Mural Artist 12/31/23 Arnold Roberts MD [address] [place] [address] Consulting Physician Pulmonary Disease 07/26/23 documented as of this encounter
--- OUTSIDE RECORDS SUMMARY | 2024-11-30 18:08 | XMS_ITS | Encounter Summary ---
Author Organization [facility] Address [address] [place] [address] Phone Care Team Providers Care Applications Tester Name Role Phone Amaya Kowalski APRN, CNP Primary Care Provider Reason for Visit * Reason Onset Date Comments Results 03/10/2023 UDS Encounter Details Date Type Department Care Team ([facility] Contact Info) Description 03/10/2023 Telephone [facility] - Primary Care - [place] [address] [place] [address] Amaya Kowalski APRN, CNP [address] [place] [address] Results (UDS) Social History Tobacco [...] CDT Urine drug screen results received from [employer]. Placed in PCP inbox for review. documented in this encounter Plan of Treatment Upcoming Encounters Date Type Department Care Team (Late st Contact Info) Description 03/21/2025 4:30 PM CDT Office Visit [facility] - Primary Care - [place] [address] [place] [address] Shravan Burgos PAC [address] [place] [address] documented as of this encounter [...] documented as of this encounter Care Teams Applications Tester Relationship Specialty Start Date End Date Amaya Kowalski APRN, STERILIZER MACHINE OPERATOR [address] [place] [address] PCP - General Advanced Practice Nurse 06/10/18 documented as of this encounter
--- OUTSIDE RECORDS SUMMARY | 2024-11-30 18:08 | XMS_ITS | Encounter Summary ---
Author Organization [facility] Address [address] [place] [address] Phone Care Team Providers Care Nuclear Equipment Operator Name Role Phone Amaya Kowalski APRN, CNP Primary Care Provider Reason for Visit * Reason Onset Date Comments Medication Refill 04/06/2023 Encounter Details Date Type Department Care Team ([facility] Contact Info) Description 04/06/2023 MyChart RX Renewal [facility] - Primary Care - [place] [address] [place] [address] Amaya Kowalski APRN, CNP [address] [place] [address] Medication Renewal Reviewed Social History [...] Dept 11/26/22 Office Visit Shravan Burgos PAC [facility] [address] [facility] 11/16/22 Office Visit Amaya Kowalski APRN, CNP [facility] [place] [facility] 08/12/22 Office Visit Sravani Ramsay MD [facility] [place] [facility] Showing recent visits within past [...] Office Visit [facility] - Primary Care - [place] [address] [place] [address] Shravan Burgos PAC [address] [place] [address] documented as of this encounter [...] making a change Department associated with goal: [facility] BEHAVIORAL HEALTH SERVICES Steps to [...] make a change Department associated with goal: [facility] Steps to [...] documented as of this encounter Care Teams Nuclear Equipment Operator Relationship Specialty Start Date End Date Amaya Kowalski, BESSEMER CONVERTER OPERATOR, PL SQL DEVELOPER [address] [place] [address] PCP - General Advanced Practice Nurse 06/10/18 documented as of this encounter
--- OUTSIDE RECORDS SUMMARY | 2024-11-30 18:08 | XMS_ITS | Encounter Summary ---
Author Organization [employer] Care Team Providers Care Private Investigator Surveillance Name Role Phone Amaya Kowalski APRN, PROFESSOR OF CRIMINAL JUSTICE Primary Care Provider Encounter Details Date Type [...] Coronavirus/COVID-19? No / Unsure 12/23/2022 3:33 PM DECISION SCIENCE ANALYST documented as of this encounter Plan of Treatment Upcoming Encounters Date Type Department Care Team (Late st Contact Info) Description 03/21/2025 4:30 PM CDT Office Visit [facility] - Primary Care - [place] [address] [place] [address] Shravan Burgos, PAC [address] [place] [address] documented as of this encounter Goals Goal Patient Goal Type Associated Problems Recent Progress Patient-Stated? Author [facility] On track(2019 9:50 AM CDT) Yes [...] and past) that trigger mood concerns. Behavioral [facility] Behavioral Health On track(2019 9:50 AM CDT) [...] documented as of this encounter Care Teams Private Investigator Surveillance Relationship Specialty Start Date End Date Amaya Kowalski, MEGAN, PROFESSOR OF CRIMINAL JUSTICE [address] [place] [address] PCP - General Advanced Practice Nurse 06/10/18 documented as of this encounter
--- OUTSIDE RECORDS SUMMARY | 2024-11-30 18:08 | XMS_ITS | Encounter Summary ---
Author Organization [facility] Address [address] [place] [address] Phone Care Team Providers Care Renovation Plant Supervisor Name Role Phone Sravani Ramsay MD Primary Care Provider [phone] Reason for Visit * Reason Onset Date Comments Results 07/16/2023 Urinary Problem 07/16/2023 Encounter Details Date Type Department Care Team (Late st Contact Info) Description 07/16/2023 Nurse Triage [facility] Center [address] [place] [address] Sravani Ramsay MD [address] [place] [address] Results; Urinary Problem Social History Tobacco Use [...] Garcia RN - 07/16/2023 1:23 PM CDT Irma notified, verbalized understanding. Would like order for A1c faxed to [facility] at [phone]. Order faxed to [facility] with success. * [...] lower back pain present Protocols used: URINARY [id number] Disposition: See in office today. Offered an [...] Description 03/21/2025 4:30 PM CDT Office Visit [facility] - Primary Care - [place] [address] [place] [address] Shravan Burgos PAC [address] [place] [address] documented as of this encounter Goals Goal Patient Goal Type Associated Problems Recent Progress Patient-Stated? Author [facility]al [facility] Behavioral Health On track(2019 9:50 AM CDT) Yes Eloise Jenkins, [facility] Note: Irma reported her goal [...] track(2019 9:50 AM CDT) No Eloise Jenkins, [facility] Note: Irma will engage in [...] documented as of this encounter Care Teams Renovation Plant Supervisor Relationship Specialty Start Date End Date Sravani Ramsay MD [address] [place] [address] PCP - General Family Medicine 04/23/23 12/30/23 documented as of this encounter
--- OUTSIDE RECORDS SUMMARY | 2024-11-30 18:08 | XMS_ITS | Encounter Summary ---
Author Organization [facility] Address [address] [place] [address] Phone Care Team Providers Care Chicken Catcher Name Role Phone Amaya Kowalski APRN, CNP Primary Care Provider Reason for Visit * Reason Onset Date Comments Appointment 11/16/2022 Encounter Details Date Type [facility] Description 11/16/[address] [facility] - Primary Care - [place] [address] [place] [address] Amaya Kowalski APRN, REPAIRER WOOD FURNITURE [address] [place] [address] Appointment Social History Tobacco Use [...] Coronavirus/COVID-19? No / Unsure 11/16/2022 3:52 PM BINDERY PRODUCTION MANAGER documented as of this encounter Miscellaneous Notes * Telephone Encounter - Mohini Aguirre RN - 11/17/2022 12:20 PM BINDERY PRODUCTION MANAGER Patient seen in office for this already. ERY PRODUCTION MANAGER * Telephone Encounter - Mohini Aguirre RN - 11/16/2022 1:38 PM BINDERY PRODUCTION MANAGER Per PCP she will look at patient's eye. Phoned patient to schedule, call went straight to voicemail. Left message for return call. ERY PRODUCTION MANAGER * Telephone Encounter - Mohini Aguirre RN - 11/16/2022 1:37 PM BINDERY PRODUCTION MANAGER ----- Message from Eloise Preciado sent at 11/16/2022 12:42 PM BINDERY PRODUCTION MANAGER ----- Regarding: FW: Appointment Request Contact: ----- Message ----- From: Irma Seymour Sent: 11/16/2022 12:16 PM BINDERY PRODUCTION MANAGER To: [facility] Subject: Appointment Request Appointment Request From: Irma Seymour With Provider: Amaya Kowalski APRN, REPAIRER WOOD FURNITURE [[facility] - Family Medicine - [facility]] Preferred Date Range: 11/16/2022 ??? 11/16/2022 Preferred Times: Any Time Reason for visit: Eye problem Comments: I poked my eye yesterday evening with adela gould and can't get into eye dr to look at it. ERY PRODUCTION MANAGER documented in this encounter Plan of Treatment Upcoming Encounters Date Type Department Care Team (Late st Contact Info) Description 03/21/2025 4:30 PM CDT Office Visit [facility] Medical [facility] - Primary Care - [place] [address] [place] [address] Shravan Burgos PAC [address] [place] [address] documented as of this encounter Goals Goal Patient Goal Type Associated Problems Recent Progress Patient-Stated? Author Behavioral [facility] Behavioral Health On [...] documented as of this encounter Care Teams Chicken Catcher Relationship Specialty Start Date End Date Amaya Kowalski, RUBBERIZING MECHANIC, REPAIRER WOOD FURNITURE [address] [place] [address] PCP - General Advanced Practice Nurse 06/10/18 documented as of this encounter
--- OUTSIDE RECORDS SUMMARY | 2024-11-30 18:08 | XMS_ITS | Encounter Summary ---
Author Organization [facility] Address [address] [place] [address] Phone Care Team Providers Care Production Control Analyst Name Role Phone Amaya Kowalski APRN, CNP Primary Care Provider Reason for Visit * Reason Onset Date Comments Results 12/01/2022 COVID Encounter Details Date Type Department Care Team ([facility] Contact Info) Description 12/01/2022 Telephone [facility] - Primary Care - [place] [address] [place] [address] Shravan Burgos PAC [address] [place] [address] Results (COVID) Social History Tobacco [...] Coronavirus/COVID-19? No / Unsure 11/26/2022 4:19 PM COMMERCIAL LOAN PROCESSOR documented as of this encounter Miscellaneous Notes * Telephone Encounter - Latia Garcia RN - 12/01/2022 1:44 PM CST [employer] message sent. ERCIAL LOAN PROCESSOR * Telephone Encounter - Latia Garcia RN - 12/01/2022 1:43 PM CST ----- Message from PAPI Danielle sent at 12/01/2022 12:19 PM COMMERCIAL LOAN PROCESSOR ----- PCR Covid testing was negative. Please make patient aware. ERCIAL LOAN PROCESSOR documented in this encounter Plan of Treatment Upcoming Encounters Date Type Department Care Team (Late st Contact Info) Description 03/21/2025 4:30 PM CDT [facility] - [place] [address] [place] [address] Shravan Burgos PAC [...] Department associated with goal: [facility] Steps to achieve goal: [...] Department associated with goal: [facility] Steps to achieve goal: [...] 19 11/26/2022 11/26/2022 12/06/2022 12:1 9 AM COMMERCIAL LOAN PROCESSOR Assessment Noted Time PHQ-9 Depression Total Score: 13 020 2:00 PM CDT documented as of this encounter Care Teams Production Control Analyst Relationship Specialty Start Date End Date Amaya Kowalski, CONSULTING ENGINEER, GOLD WHEEL BLOCKER AND POLISHER [address] [place] [address] PCP - General Advanced Practice Nurse 06/10/18 documented as of this encounter
--- OUTSIDE RECORDS SUMMARY | 2024-11-30 18:08 | XMS_ITS | Encounter Summary ---
Author Organization [facility] Address [address] [facility] [place] [address] Phone Care Team Providers Care Repertoire Manager Name Role Phone Sravani Ramsay MD Primary Care Provider [phone] Reason for Referral * Consult, Test & Initiate Treatment (Routine) - Closed Specialty Diagnoses / Procedures Referred By Claudio remy Referred To Contact Pulmonology Diagnoses Mild persistent asthma with exacerbation Sravani Ramsay MD Phone: tel: fax: [facility] - Pulmonology & Sleep Medicine [facility] [place] [address] Phone: tel: fax: Referral ID Status Reason Start Date Expiration Date Visits Re quested Visits Authorized [id number] Closed 06/24/2023 1 1 Scheduling Instructions Irma is being referred for evaluation for pulmonary function studies. Please contact patient for scheduling questions or concerns. Reason for Visit * Reason Onset Date Comments Referral 06/24/2023 Encounter Details Date Type Department Care Team ([facility] st Contact Info) Description 06/24/2023 Telephone [facility] - Primary Care - [place] [address] [address] Sravani Ramsay MD [address] [place] [address] Referral Social History Tobacco Use [...] Description 03/21/2025 4:30 PM CDT [facility] - [place] [address] [place] [address] Shravan Burgos, PAC [address] [place] [address] Scheduled Referrals Name Type Priority Associated Diagnoses Orde r Schedule PULMONARY REFERRAL Outpatient Referral Routine Mild persistent asthma with exacerbation Expected: 06/24/2023, Expires: 06/24/2024 documented as of this encounter Goals Goal Patient Goal Type Associated Problems Recent Progress Patient-Stated? Author Behavioral [facility] Behavioral Health On track(2019 9:50 AM CDT) Yes Eloise Jenkins LCPC Note: Irma reported her goal for psychotherapy is to help me be able to deal with things in the present and in her past that are contributing to low and anxious mood. Goal Reviewed with: patient Readiness to change: Thinking about making a change Department associated with goal: [facility] Steps [...] and past) that trigger mood concerns. Behavioral [facility] Behavioral Health On track(2019 9:50 AM CDT) No Eloise Jenkins LCPC Note: Irma will engage in a plan of action to improve emotional and mental wellbeing. Goal Reviewed with: patient Readiness to change: Not yet ready to make a change Department associated with goal: [facility] Steps [...] documented as of this encounter Care Teams Repertoire Manager Relationship Specialty Start Date End Date Sravani Ramsay MD [address] [place] [address] PCP - General Family Medicine 04/23/23 12/30/23 documented as of this encounter
--- OUTSIDE RECORDS SUMMARY | 2024-11-30 18:08 | XMS_ITS | Encounter Summary ---
Author Organization [facility] Address [address] [place] [place] [address] Phone Care Team Providers Care Solution Professional Name Role Phone Amaya Kowalski APRN, TEXTILE COLORIST DYER Primary Care Provider Encounter Details Date Type Department Care Team (Late st Contact Info) Description 09/28/2022 4:15 PM CDT [facility] [address] [place] [address] Veronika Orantes APRN, TEXTILE COLORIST DYER [address] [place] [address] Jameel Florian, PT [place] Back pain (Primary [...] Home Exercises distributed via handout and text. TextHub information: Access Code: [email or web address] URL: [email or web address]/ Date: 09/28/2022 Prepared by: Jameel Florian Exercises [...] - 10 reps Single Leg Bridge on Spanish Ball - 1 x daily - 7 x weekly - 3 sets - 10 reps Bird Dog on Spanish Ball - 1 x daily - 7 x weekly - 3 sets - 10 reps Plank with Feet on Spanish Ball - 1 x daily - 7 x weekly - 3 sets - 10 reps Mini B[place] on Spanish Ball - 1 x daily - 7 x weekly - 3 sets - 10 reps Patient response to exercises provided today: patient was challenged by progression of core stabilization and hip strengthening exercises. 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 All charges entered today [...] relief, soft tissue extensibility and joint mobility (35805) - Therapeutic exercise program for: motion/mobility, strengthening, flexibility, and functional limitations (20879) - Therapeutic activities for functional activity education/training, and in home safety recommendations as appropriate (92048) - Neuro Muscular Re-education for body mechanics education and postural re- education as appropriate(05075) - Gait training (57649) - Patient education regarding posture, ergonomics, body mechanics, HEP progression and exercise performance - Individualized home exercise program - Modalities as needed for pain relief, anti-inflammatory effect and soft tissue extensibility - Mechanical traction (75989) - Trigger point dry needling for pain [...] 4:30 PM CDT Office Visit [facility] - Primary Care - [place] [address] [place] [address] Shravan Burgos, PAPI [address] [place] [address] documented as of this encounter Goals Goal Patient Goal Type Associated Problems Recent Progress Patient-Stated? Author [facility] Behavioral Health On track(2019 9:50 AM CDT) Yes Eloise Jenkins, [facility] Note: Irma reported her goal [...] On track(2019 9:50 AM CDT) Eloise Mix, LIQUEFIED NATURAL GAS OPERATOR Note: Irma will engage in a plan [...] documented as of this encounter Care Teams Solution Professional Relationship Specialty Start Date End Date Amaya Kowalski, CHANGE ROOM ATTENDANT, TEXTILE COLORIST DYER [address] [place] [address] PCP - General Advanced Practice Nurse 06/10/18 documented as of this encounter
--- OUTSIDE RECORDS SUMMARY | 2024-11-30 18:08 | XMS_ITS | Encounter Summary ---
Author Organization [employer] Care Team Providers Care Terminal Gauger Name Role Phone Sravani Ramsay MD Primary Care Provider [phone] Arnold Roberts MD Unavailable Encounter Details Date [...] Office Visit [facility] - Primary Care - [place] [address] [place] [address] Shravan Burgos, PAC [address] [place] [address] documented as of this encounter Goals Goal Patient Goal Type Associated Problems Recent Progress Patient-Stated? Author Behavioral [facility] Behavioral Health On track(2019 9:50 AM CDT) Yes Eloise Jenknis LCPC Note: Irma reported her goal for [...] documented as of this encounter Care Teams Terminal Gauger Relationship Specialty Start Date End Date Sravani Ramsay MD [address] [place] [address] PCP - General Family Medicine 04/23/23 12/30/23 Arnold Roberts MD [address] [place] [address] Consulting Physician Pulmonary Disease 07/26/23 documented as of this encounter
--- OUTSIDE RECORDS SUMMARY | 2024-11-30 18:08 | XMS_ITS | Encounter Summary ---
Author Organization [facility] Address [address] [place] [address] Phone Care Team Providers Care Independent Driver Name Role Phone Sravani Ramsay MD Primary Care Provider [phone] Reason for Visit * Reason Onset Date Comments Labs Only 06/10/2023 Urinary Frequency 06/10/2023 Encounter Details Date Type Department Care Team (Late st Contact Info) Description 06/10/2023 Nurse Triage [facility] [address] [place] [address] Sravani Ramsay MD [address] [place] [address] Labs Only; Urinary Frequency Social History Tobacco [...] studies. Order placed. Received UA results from [facility]. Per verbal of Shravan Burgos PA-C urine [...] results received from [facility]. Placed in PCP inbox for review. * [...] menstrual period? *No Answer* Protocols used: URINARY [id number] * Telephone Encounter - Tatiana Barroso - 06/11/2023 10:00 AM CDT S: Patient is at [facility] at work now - will fax results to office B: Patient saw lab results on per patient portal and [facility] should be sending them to office - the plastics process hand gave patient the fax number and patient [...] 3:48 PM CDT Lab orders faxed to [phone]. Patient is aware. * Telephone Encounter - Cristo Johnston - 06/10/2023 3:27 PM CDT RFC: PT is needing to have the orders faxed for her labs so she can get them done at [facility] where she works. As she would like to get them done tomorrow 06/11/23. Fax # [phone] Please call Irma (relationship to patient self) back regarding above referenced patient. Patient's Provideris Dr. Ramsay. documented in this encounter Plan of Treatment Upcoming Encounters Date Type Department Care Team (Late st Contact Info) Description 03/21/2025 4:30 PM CDT Office Visit [facility] - Primary Care - [place] [address] [place] [address] Shravan Burgos, PAC [address] [place] [address] documented as of this encounter Goals Goal Patient Goal Type Associated Problems Recent Progress Patient-Stated? Author Behavioral [facility] Behavioral Health On track(2019 9:50 AM CDT) [...] and past) that trigger mood concerns. Behavioral [facility] Behavioral Health On track(2019 9:50 AM CDT) [...] documented as of this encounter Care Teams Independent Driver Relationship Specialty Start Date End Date Sravani Ramsay MD [address] [place] [address] PCP - General Family Medicine 04/23/23 12/30/23 documented as of this encounter
--- OUTSIDE RECORDS SUMMARY | 2024-11-30 18:08 | XMS_ITS | Encounter Summary ---
Author Organization [facility] Address [address] [place] [address] Phone Care Team Providers Care Janitor Custodian Name Role Phone Sravani Ramsay MD Primary Care Provider Reason for Visit * Reason Onset Date Comments Appointment 05/24/2023 Encounter Details Date Type Department Care Team ([facility] st Contact Info) Description 05/24/2023 Telephone [facility] - Primary Care - [place] [address] [place] [address] Sravani Ramsay MD [address] [place] [address] Appointment Social History Tobacco Use [...] Description 03/21/2025 4:30 PM CDT Office Visit [facility] - Primary Care - [place] [address] [place] [address] Shravan Burgos PAC [address] [place] [address] documented as of this encounter Goals Goal Patient Goal Type Associated Problems Recent Progress Patient-Stated? Author Behavioral Health Behavioral Health On track(2019 9:50 AM CDT) Yes Eloise Jenkins, SUPERVISOR COIL WINDING Note: Irma reported her goal for psychotherapy [...] track(2019 9:50 AM CDT) No Eloise Jenkins, [facility] Note: Irma will engage in a plan [...] documented as of this encounter Care Teams Janitor Custodian Relationship Specialty Start Date End Date Sravani Ramsay MD [address] [place] [address] PCP - General Family Medicine 04/23/23 12/30/23 documented as of this encounter
--- OUTSIDE RECORDS SUMMARY | 2024-11-30 18:08 | XMS_ITS | Encounter Summary ---
Author Organization [email or web address] Care Team Providers Care Econometrician Name Role Phone Sravani Ramsay MD Primary Care Provider [phone] Encounter Details Date Type Department Care Team [...] Visit [facility] - Primary Care - [place] [address] [place] [address] Shravan Burgos, PAC [address] [place] [address] documented as of this encounter Goals Goal Patient Goal Type Associated Problems Recent Progress Patient-Stated? Author [facility] Behavioral Health On track(2019 9:50 [...] and past) that trigger mood concerns. Behavioral [facility] Behavioral Health On track(2019 [...] documented as of this encounter Care Teams Econometrician Relationship Specialty Start Date End Date Sravani Ramsay MD [address] [place] [address] PCP - General Family Medicine 04/23/23 12/30/23 documented as of this encounter
--- OUTSIDE RECORDS SUMMARY | 2024-11-30 18:08 | XMS_ITS | Encounter Summary ---
Author Organization [employer] Care Team Providers Care Rough Rounder Machine Name Role Phone Sravani Ramsay MD Primary Care Provider [phone] Encounter Details Date Type Department Care Team [...] Office Visit [facility] - Primary Care - [place] [address] [place] [address] Shravan Burgos, PAC [address] [place] [address] documented as of this encounter Goals Goal Patient Goal Type Associated Problems Recent Progress Patient-Stated? Author [facility] Behavioral Health On track(2019 9:50 AM [...] and past) that trigger mood concerns. Behavioral [facility] Behavioral Health On track(2019 9:50 [...] documented as of this encounter Care Teams Rough Rounder Machine Relationship Specialty Start Date End Date Sravani Ramsay MD [address] [place] [address] PCP - General Family Medicine 04/23/23 12/30/23 documented as of this encounter
--- OUTSIDE RECORDS SUMMARY | 2024-11-30 18:08 | XMS_ITS | Encounter Summary ---
Author Organization [facility] Address [address] [place] [address] Phone Care Team Providers Care Spa Experience Coordinator Name Role Phone Amaya Kowalski APRN, CNP Primary Care Provider Encounter Details Date Type Department Care Team ([facility] Contact Info) Description 09/18/2022 11:00 AM CDT Lab [facility] - Primary Care - [address] [address] Lab, [facility] Discharge Disposition: Discharged to home or Selfcare [...] Amaya Kowalski APN 09/18/2022 and Sent to [facility] documented in this encounter Plan of Treatment Upcoming Encounters Date Type Department Care Team (Late st Contact Info) Description 03/21/2025 4:30 PM CDT Office Visit [facility] - Primary Care - [place] [address] [place] [address] Shravan Burgos PAC [address] [place] [address] documented as of this encounter Goals Goal Patient Goal Type Associated Problems Recent Progress Patient-Stated? Author Behavioral Health Behavioral Health On track(2019 9:50 AM CDT) Yes Eloise Jenkins, [facility] Note: Irma reported her goal for psychotherapy is to help me be able to deal with things in the present and in her past that are contributing to low and anxious mood. Goal Reviewed with: patient Readiness to change: Thinking about making a change Department associated with goal: [facility] BEHAVIORAL HEALTH SERVICES Steps [...] track(2019 9:50 AM CDT) No Eloise Jenkins, SENIOR ADVOCATE Note: Irma will engage in a plan of action to improve emotional and mental wellbeing. Goal Reviewed with: patient Readiness to change: Not yet ready to make a change Department associated with goal: [facility] Steps [...] documented as of this encounter Care Teams Spa Experience Coordinator Relationship Specialty Start Date End Date Amaya Kowalski, COLOR FINISHER, BUGGY OPERATOR [address] [place] [address] PCP - General Advanced Practice Nurse 06/10/18 documented as of this encounter
--- OUTSIDE RECORDS SUMMARY | 2024-11-30 18:08 | XMS_ITS | Encounter Summary ---
Author Organization [facility] Address [address] [place] [address] Phone Care Team Providers Care Ballistics Expert Name Role Phone Sravani Ramsay MD Primary Care Provider Reason for Visit * Reason Comments Urinary Tract Infection Encounter Details Date Type Department Care Team (Latest Contact Info) Description 06/24/2023 4:45 PM CDT [facility] [place] [address] [place] [address] Jaz Amin, ROUNDHOUSE SUPERVISOR, EXTERIOR INTERIOR SPECIALIST [address] [place] [address] Urinary problem (Primary Dx) Discharge [...] for back pain. * Jaz Amin, MEGAN, EXTERIOR INTERIOR SPECIALIST - 06/24/2023 4:45 PM CDT HPI: Irma [...] Description 03/21/2025 4:30 PM CDT Office Visit [facility] - Primary Care - [place] [address] [place] [address] Shravan Burgos PAC [address] [place] [address] documented as of this encounter Goals Goal [...] On track(2019 9:50 AM CDT) Eloise Mix GRILL COOK Note: Irma will engage in a plan [...] Urine 06/24/2023 4:14 PM CDT Jaz Amin ROUNDHOUSE SUPERVISOR, EXTERIOR INTERIOR SPECIALIST POINT OF CARE TESTI CHON (MANUAL) Final Result documented in this encounter Visit Diagnoses Diagnosis Urinary problem- Primary Other urinary problems documented in this encounter Additional Health Concerns Assessment Noted Time PHQ-9 Depression Total Score: 13 05/2 020 2:00 PM CDT documented as of this encounter Care Teams Ballistics Expert Relationship Specialty Start Date End Date Sravani Ramsay MD [address] [place] [address] PCP - General Family Medicine 04/23/23 12/30/23 documented as of this encounter
--- OUTSIDE RECORDS SUMMARY | 2024-11-30 18:08 | XMS_ITS | Encounter Summary ---
Author Organization [employer] Care Team Providers Care Round Boner Name Role Phone Sravani Ramsay MD Primary Care Provider [phone] Arnold Roberts MD Unavailable Encounter Details Date [...] Description 03/21/2025 4:30 PM CDT Office Visit [facility] Medical [facility] - Primary Care - [place] [address] [place] [address] Shravan Burgos, PAPI [address] [place] [address] documented as of this encounter Goals Goal Patient Goal Type Associated Problems Recent Progress Patient-Stated? Author Behavioral [facility] Behavioral Health On track(2019 9:50 AM [...] documented as of this encounter Care Teams Round Boner Relationship Specialty Start Date End Date Sravani Ramsay MD [address] [place] [address] PCP - General Family Medicine 04/23/23 12/30/23 Arnold Roberts MD [address] [place] [address] Consulting Physician Pulmonary Disease 07/26/23 documented as of this encounter
--- OUTSIDE RECORDS SUMMARY | 2024-11-30 18:08 | XMS_ITS | Encounter Summary ---
Author Organization [facility] Address [address] [facility] [place] [address] Phone Care Team Providers Care Manager Training And Development Name Role Phone Sravani Ramsay MD Primary Care Provider Reason for Visit * Reason Comments Medication Refill Encounter Details Date Type Department Care Team (Late st Contact Info) Description 06/09/2023 Refill [facility] - Primary Care - [place] [address] [place] [phone] Sravani Ramsay MD [address] [place] [address] Medication Refill Social History Tobacco [...] Dept 04/23/23 Office Visit Sravani Ramsay MD [facility] 11/26/22 Office Visit Shravan Burgos, PAC [facility] 11/16/22 Office Visit Amaya Kowalski, TEACHER INSTRUMENTAL, HANDHOLE MACHINE OPERATOR [facility] 08/12/22 Office Visit Sravani Ramsay MD [facility] Showing recent visits [...] Description 03/21/2025 4:30 PM CDT Office Visit [facility] - Primary Care - [place] [address] [place] [address] Shravan Burgos, PAC [address] [place] [address] documented as of this encounter Goals Goal Patient Goal Type Associated Problems Recent Progress Patient-Stated? Author Behavioral [facility] Behavioral Health On track(2019 9:50 AM [...] as of this encounter Care Teams Manager Training And Development Relationship Specialty Start Date End Date Sravani Ramsay MD [address] [place] [address] PCP - General Family Medicine 04/23/23 12/30/23 documented as of this encounter
--- OUTSIDE RECORDS SUMMARY | 2024-11-30 18:08 | XMS_ITS | Encounter Summary ---
Author Organization [facility] Address [address] [place] [address] Phone Care Team Providers Care Employment Appeals Examiner Name Role Phone Sravani Ramsay MD Primary Care Provider [phone] Arnold Roberts MD Unavailable Reason for Referral * Radiology Services (Routine) - Closed Specialty Diagnoses / Procedures Referred By Claudio t Referred To Contact Radiology Diagnoses Abdominal pain, unspecified abdominal location Early satiety Bloating Procedures CT ABDOMEN PELVIS W/O CONTRAST Fiorella Dhaliwal APRN, CNP [address] [place] [address] Phone: tel: fax: Referral ID Status Reason Start Date Expiration Date Visits Re quested Visits Authorized [id number] Closed 08/25/2023 1 1 Reason for Visit * Reason Comments Lump Patient c/o a painfu l lumps in the groin Gas Abdominal Pain Encounter Details Date Type Department Care Team ([facility] st Contact Info) Description 08/25/2023 3:30 PM CDT Office Visit [facility] - Primary Care - [place] [address] [place] [address] Fiorella Dhaliwal APRN, CNP [address] [place] [id number] Encounter for immunization (Primary Dx); Abdominal pain, [...] hours as needed for Fever. 12/26/18 Yes [place], Ti Rajeev, PAC ipratropium-albuterol (DUO-NEB) 0.5-2.5 (3) [...] Description 03/21/2025 4:30 PM CDT Office Visit [facility] - Primary Care - [place] [address] [place] [address] Shravan Burgos, PAC [address] [place] [phone] documented as of this encounter Goals Goal Patient Goal Type Associated Problems Recent Progress Patient-Stated? Author [facility] On track(2019 9:50 AM CDT) Yes [...] (current and past) that trigger mood concerns. [facility] On track(2019 9:50 AM [...] PM T: ??09/04/2023 12:40 PM Report ID: [id number] Reading Location: ??[id number] Procedure Note Davidson Webster MD - 09/04/2023 [...] Davidson Webster M.D. RW: NEDRA Report ID: [id number] Reading Location: [id number] IMPRESSION: 1. IUD in place. 2. Malrotation [...] documented as of this encounter Care Teams Employment Appeals Examiner Relationship Specialty Start Date End Date Sravani Ramsay MD [address] [place] [address] PCP - General Family Medicine 04/23/23 12/30/23 Arnold Roberts MD [address] [place] [address] Consulting Physician Pulmonary Disease 07/26/23 documented as of this encounter
--- OUTSIDE RECORDS SUMMARY | 2024-11-30 18:08 | XMS_ITS | Encounter Summary ---
Author Organization [facility] Address [address] [place] [address] Phone Care Team Providers Care Acting Manager Name Role Phone Amaya Kowalski APRN, CNP Primary Care Provider Reason for Visit * Reason Comments Eye Pain Left//poked eye with makeup wand Encounter Details Date Type Department Care Team (Late st Contact Info) Description 11/16/2022 4:15 PM SUPERVISOR WARPING DEPARTMENT Office Visit [facility] - Primary Care - [place] [address] [place] [address] Amaya Kowalski APRN, GAS OPERATIONS ANALYST [address] [place] [address] Abrasion of left cornea, initial [...] Coronavirus/COVID-19? No / Unsure 11/16/2022 3:52 PM SUPERVISOR WARPING DEPARTMENT documented as of this encounter Last Filed Vital Signs Vital Sign Reading Time Taken Comments Blood Pressure 118/84 11/16/2022 3:53 PM SUPERVISOR WARPING DEPARTMENT Pulse 73 11/16/2022 3:53 PM SUPERVISOR WARPING DEPARTMENT Temperature 36.6 ??C (97.9 ??F) 11/16/2022 3:53 PM CS T Respiratory Rate 20 11/16/2022 3:53 PM SUPERVISOR WARPING DEPARTMENT Oxygen Saturation 99% 11/16/2022 3:53 PM SUPERVISOR WARPING DEPARTMENT Inhaled Oxygen Concentration - - Weight 64.3 kg (141 lb 12.8 oz) 11/16/2022 3:53 PM SUPERVISOR WARPING DEPARTMENT Height 160 cm (5' 3 ) 11/16/2022 3:53 PM SUPERVISOR WARPING DEPARTMENT Body Mass Index 25.12 11/16/2022 3:53 PM SUPERVISOR WARPING DEPARTMENT documented in this encounter Patient Instructions * Patient Instructions* Amaya Kowalski APRN, GAS OPERATIONS ANALYST - 11/16/2022 4:15 PM SUPERVISOR WARPING DEPARTMENT Ciprofloxin eye drops every 4 hours while [...] Primary Care Physician???s office or your localpharmacy. RVISOR WARPING DEPARTMENT RVISOR WARPING DEPARTMENT documented in this encounter Progress Notes * [...] the patient today: Flu, TDAP and Pneumonia RVISOR WARPING DEPARTMENT * Amaya Kowalski, MEGAN, GAS OPERATIONS ANALYST - 11/16/2022 4:15 PM CST Images from [...] additions, deletions and changes made as appropriate. RVISOR WARPING DEPARTMENT documented in this encounter Plan of Treatment Upcoming Encounters Date Type Department Care Team (Late st Contact Info) Description 03/21/2025 4:30 PM CDT Office Visit [facility] - Primary Care - [place] [address] [place] [address] Shravan Burgos PAC [address] [place] [phone] documented as of this encounter Goals Goal [...] documented as of this encounter Care Teams Acting Manager Relationship Specialty Start Date End Date Amaya Kowalski, NURSING AGENCY MANAGER, GAS OPERATIONS ANALYST [address] [place] [address] PCP - General Advanced Practice Nurse 06/10/18 documented as of this encounter
--- OUTSIDE RECORDS SUMMARY | 2024-11-30 18:08 | XMS_ITS | Encounter Summary ---
Author Organization [employer] Care Team Providers Care Web Operations Specialist Name Role Phone Sravani Ramsay MD [...] [facility] - Primary Care - [place] [address] [place] [address] Shravan Burgos, PAC [address] [place] [address] documented as of this encounter Goals Goal Patient Goal Type Associated Problems Recent Progress Patient-Stated? Author [facility] On track(2019 9:50 AM CDT) [...] documented as of this encounter Care Teams Web Operations Specialist Relationship Specialty Start Date End Date Sravani Ramsay MD [address] [place] [address] PCP - General Family Medicine 04/23/23 12/30/23 documented as of this encounter
--- OUTSIDE RECORDS SUMMARY | 2024-11-30 18:08 | XMS_ITS | Encounter Summary ---
Author Organization [facility] Address [address] [place] [address] Phone Care Team Providers Care Pool Table Operator Name Role Phone Sravani Ramsay MD Primary Care Provider [phone] Arnold Roberts MD Unavailable Reason for Visit * Reason Onset Date Comments Advice Only 08/19/2023 Encounter Details Date Type Department Care Team (Late st Contact Info) Description 08/19/2023 Telephone [facility] [address] [place] [address] Sravani Ramsay MD [address] [id number] Advice Only Social History Tobacco Use Types [...] scheduled for 08/25/23 with Fiorella Dhaliwal APRN, RESIDENTIAL SALES REP. * Telephone Encounter - Clara Clark - 08/19/2023 12:40 PM CDT RFC: Irma is requesting a call back as she states she is needing to see provider but the soonest available appointment is 09/27/23 . Please call Irma [phone] (relationship to patient self) back regarding above referenced patient. Patient's Provider is Sravani Ramsay MD . documented in this encounter Plan of Treatment Upcoming Encounters Date Type Department Care Team (Late st Contact Info) Description 03/21/2025 4:30 PM CDT Office Visit [facility] - Primary Care - [place] [address] [place] [address] Shravan Burgos PAC [address] [place] [address] documented as of this encounter Goals Goal Patient Goal Type Associated Problems Recent Progress Patient-Stated? Author [facility] On track(2019 9:50 AM CDT) Yes [...] (current and past) that trigger mood concerns. [facility] On track(2019 9:50 AM CDT) No Eloise [...] documented as of this encounter Care Teams Pool Table Operator Relationship Specialty Start Date End Date Sravani Ramsay MD [address] [place] [address] PCP - General Family Medicine 04/23/23 12/30/23 Arnold Roberts MD [address] [place] [address] Consulting Physician Pulmonary Disease 07/26/23 documented as of this encounter
--- OUTSIDE RECORDS SUMMARY | 2024-11-30 18:08 | XMS_ITS | Encounter Summary ---
Author Organization [facility] Address [address] [place] [address] Phone Care Team Providers Care Pilot Captain Name Role Phone Amaya Kowalski APRN, DOUGLAS Primary Care Provider Reason for Visit * Reason Onset Date Comments Appointment 09/23/2022 Encounter Details Date Type Department Care Team ([facility] Contact Info) Description 09/23/2022 Telephone [facility] [address], [address] [place] [address] Jamie Dhaliwal, [facility] [...] 03/21/2025 4:30 PM CDT Office Visit [facility] - Primary Care - [place] [address] [place] [address] Shravan Burgos PAC [address] [place] [address] documented as of this encounter Goals Goal Patient Goal Type Associated Problems Recent Progress Patient-Stated? Author [facility] On track(2019 9:50 AM CDT) Yes Eloise Jenkins, [facility] Note: Irma reported her goal for psychotherapy is to help me be able to deal with things in the present and in her past that are contributing to low and anxious mood. Goal Reviewed with: patient Readiness to change: Thinking about making a change Department associated with goal: [facility] Steps to achieve goal: [...] track(2019 9:50 AM CDT) No Eloise Jenkins, [facility] Note: Irma will engage in a plan of action to improve emotional and mental wellbeing. Goal Reviewed with: patient Readiness to change: Not yet ready to make a change Department associated with goal: [facility] Steps to achieve goal: [...] documented as of this encounter Care Teams Pilot Captain Relationship Specialty Start Date End Date Amaya Kowalski, CHOIRMASTER, BICYCLE REPAIRER [address] [place] [address] PCP - General Advanced Practice Nurse 06/10/18 documented as of this encounter
--- OUTSIDE RECORDS SUMMARY | 2024-11-30 18:08 | XMS_ITS | Encounter Summary ---
Author Organization [facility] Address [address] [place] [address] Phone Care Team Providers Care Tanbark Laborer Name Role Phone Amaya Kowalski APRN, CNP Primary Care Provider Reason for Visit * Reason Onset Date Comments Medication Refill 01/26/2023 Encounter Details Date Type Department Care Team ([facility] Contact Info) Description 01/26/2023 MyChart RX Renewal [facility] - Primary Care - [place] [address] [place] [address] Amaya Kowalski APRN, CNP [address] [place] [address] Medication Renewal Declined Social History [...] Mohini Aguirre RN - 01/26/2023 11:07 AM ASSISTANT REAL ESTATE MANAGER Duplicate request. STANT REAL ESTATE MANAGER documented in this encounter Plan of Treatment Upcoming Encounters Date Type Department Care Team (Late st Contact Info) Description 03/21/2025 4:30 PM CDT Office Visit [facility] - Primary Care - [place] [address] [place] [address] Shravan Burgos PAC [address] [place] [address] documented as of this encounter [...] documented as of this encounter Care Teams Tanbark Laborer Relationship Specialty Start Date End Date Amaya Kowalski APRN, LUMBER BUYER [address] [place] [address] PCP - General Advanced Practice Nurse 06/10/18 documented as of this encounter
--- OUTSIDE RECORDS SUMMARY | 2024-11-30 18:08 | XMS_ITS | Encounter Summary ---
Author Organization [employer] Care Team Providers Care Winder Hand Name Role Phone Amaya Kowalski APRN, NEEDLE PROCESS FELT GOODS SUPERVISOR Primary Care Provider Encounter Details Date [...] Coronavirus/COVID-19? No / Unsure 11/26/2022 4:19 PM APPLICATION INTERNSHIP documented as of this encounter Plan of Treatment Upcoming Encounters Date Type Department Care Team (Late st Contact Info) Description 03/21/2025 4:30 PM CDT Office Visit [facility] - Primary Care - [place] [address] [place] [address] Shravan Burgos, PAC [address] [place] [address] documented as of this encounter Goals Goal Patient Goal Type Associated Problems Recent Progress Patient-Stated? Author [facility] On track(2019 9:50 AM CDT) Yes Eloise Jenkins LCPC Note: Irma reported her goal for psychotherapy is to help me be able to deal with things in the present and in her past that are contributing to low and anxious mood. Goal Reviewed with: patient Readiness to change: Thinking about making a change Department associated with goal: [facility] Steps to achieve [...] and past) that trigger mood concerns. Behavioral [facility] On track(2019 9:50 AM CDT) No Eloise Jenkins LCPC Note: Irma will engage in a plan of action to improve emotional and mental wellbeing. Goal Reviewed with: patient Readiness to change: Not yet ready to make a change Department associated with goal: [facility] Steps to achieve [...] - 19 11/26/2022 11/26/2022 11/26/2022 4:47 PM APPLICATION INTERNSHIP COVID - 19 11/26/2022 11/26/2022 12/06/2022 12:1 9 AM APPLICATION INTERNSHIP Assessment Noted Time PHQ-9 Depression Total Score: 13 020 2:00 PM CDT documented as of this encounter Care Teams Winder Hand Relationship Specialty Start Date End Date Amaya Kowalski, BOARD STACKER, NEEDLE PROCESS FELT GOODS SUPERVISOR [address] [place] [address] PCP - General Advanced Practice Nurse 06/10/18 documented as of this encounter
--- OUTSIDE RECORDS SUMMARY | 2024-11-30 18:08 | XMS_ITS | Encounter Summary ---
Author Organization [employer] Care Team Providers Care System Configuration Specialist Name Role Phone Amaya Kowalski APRN, DANCE THERAPIST Primary Care Provider Encounter Details Date Type [...] Coronavirus/COVID-19? No / Unsure 11/16/2022 3:52 PM BUSINESS MACHINES TEACHER documented as of this encounter Plan of Treatment Upcoming Encounters Date Type Department Care Team (Late st Contact Info) Description 03/21/2025 4:30 PM CDT Office Visit [facility] - Primary Care - [place] [address] [...] making a change Department associated with goal: [facility] BE[facility]IOR[facility] SERVICES [...] and past) that trigger mood concerns. Behavioral [facility] On track(2019 9:50 AM CDT) No Eloise Jenkins LCPC Note: Irma will engage in a plan of action to improve emotional and mental wellbeing. Goal Reviewed with: patient Readiness to change: Not yet ready to make a change Department associated with goal: [facility] SERVICES [...] documented as of this encounter Care Teams System Configuration Specialist Relationship Specialty Start Date End Date Amaya Kowalski, MEGAN, DANCE THERAPIST [address] [place] [address] PCP - General Advanced Practice Nurse 06/10/18 documented as of this encounter
--- OUTSIDE RECORDS SUMMARY | 2024-11-30 18:08 | XMS_ITS | Encounter Summary ---
Author Organization [facility] Address [address] [facility] [place] [address] Phone Care Team Providers Care Director Of Recruitment Name Role Phone Sraavni Ramsay MD Primary Care Provider Reason for Visit * Reason Comments Medication Refill Encounter Details Date Type Department Care Team (Late st Contact Info) Description 07/12/2023 Refill [facility] - Primary Care - [place] [address] [place] [address] Sravani Ramsay MD [address] [place] [address] Medication Refill Social History Tobacco [...] Dept 04/23/23 Office Visit Sravani Ramsay MD [facility] 11/26/22 Office Visit Shravan Burgos PAC [facility] 11/16/22 Office Visit Amaya Kowalski APRN, DOUGLAS [facility] 08/12/22 Office Visit Sravani Ramsay MD [facility] Showing recent visits within past [...] PM CDT [facility] - Primary Care - [place] [address] [place] [address] Shravan Burgos PAC [address] [place] [address] documented as of this encounter [...] of this encounter Care Teams Director Of Recruitment Relationship Specialty Start Date End Date Sravani Ramsay MD [address] [place] [address] PCP - General Family Medicine 04/23/23 12/30/23 documented as of this encounter
--- OUTSIDE RECORDS SUMMARY | 2024-11-30 18:08 | XMS_ITS | Encounter Summary ---
Author Organization [facility] Address [address] [place] [address] Phone Care Team Providers Care Cargo And Container Inspector Name Role Phone Sravani Ramsay MD Primary Care Provider [phone] Arnold Roberts MD Unavailable Shravan Burgos Primary Care Provider + [phone] Reason for Visit * Reason Comments Medication Refill Encounter Details Date Type Department Care Team (Late st Contact Info) Description 05/10/2023 Refill [facility] - Primary Care - [place] [address] [place] [address] Amaya Kowalski, CLINICAL DENTAL TECHNICIAN, POWDER COMPOUNDER [address] [place] [address] Medication Refill Social History Tobacco [...] 03/21/2025 4:30 PM CDT Office Visit [facility] - Primary Care - [place] [address] [place] [address] Shravan Burgos PAC [address] [place] [address] documented as of this encounter [...] track(2019 9:50 AM CDT) No Eloise Jenkins BRACE MAKER Note: Irma will engage in a [...] documented as of this encounter Care Teams Cargo And Container Inspector Relationship Specialty Start Date End Date Sravani Ramsay MD [address] [place] [address] PCP - General Family Medicine 04/23/23 12/30/23 Shravan Burgos PAC [address] [place] [address] PCP - General Physician Costume Seamstress 12/31/23 Arnold Roberts MD [address] [place] [address] Consulting Physician Pulmonary Disease 07/26/23 documented as of this encounter
--- OUTSIDE RECORDS SUMMARY | 2024-11-30 18:08 | XMS_ITS | Encounter Summary ---
Author Organization [facility] Address [address] [place] [address] Phone Care Team Providers Care Superintendent Circus Name Role Phone Amaya Kowalski APRN, DOUGLAS Primary Care Provider Reason for Visit * Reason Comments Medication Refill Encounter Details Date Type Department Care Team ([facility] Contact Info) Description 10/20/2022 Refill [facility] - [place] [address] [place] [address] Amaya Kowalski APRN, SASH FINISHER [address] [place] [address] Medication Refill Social History Tobacco [...] Kowalski APRN, CNP - 10/20/2022 1:28 PM FAMILY RESOURCE SPECIALIST [place] Prescription Monitoring Site reviewed. LY RESOURCE SPECIALIST * Telephone Encounter - Latia Garcia, RN [...] Dept 08/12/22 Office Visit Sravani Ramsay MD [facility] Showing recent visits within past 365 days and meeting all other requirements Future Appointments No visits were found meeting these conditions. Showing future appointments within next 90 days and meeting all other requirements LY RESOURCE SPECIALIST documented in this encounter Plan of Treatment Upcoming Encounters Date Type Department Care Team (Late st Contact Info) Description 03/21/2025 4:30 PM CDT Office Visit [facility] - Primary Care - [place] [facility] [place] [address] Shravan Burgos, PAC [address] [place] [address] documented as of this encounter Goals Goal Patient Goal Type Associated Problems Recent Progress Patient-Stated? Author Behavioral [facility] On track(2019 9:50 [...] and past) that trigger mood concerns. Behavioral [facility] On track(2019 9:50 [...] as of this encounter Care Teams Superintendent Circus Relationship Specialty Start Date End Date Amaya Kowalski, PENOLOGY PROFESSOR, SASH FINISHER [address] [place] [address] PCP - General Advanced Practice Nurse 06/10/18 documented as of this encounter
--- OUTSIDE RECORDS SUMMARY | 2024-11-30 18:08 | XMS_ITS | Encounter Summary ---
Author Organization [facility] Address [address] [place] [address] Phone Care Team Providers Care Food Crops Farm Hand Name Role Phone Amaya Kowalski APRN, DOUGLAS Primary Care Provider Reason for Visit * Reason Comments Medication Refill Encounter Details Date Type Department Care Team ([facility] st Contact Info) Description 01/11/2023 Refill [facility] - [place] [address] [place] [address] Amaya Kowalski APRN, CAT WAGON OPERATOR [address] [place] [address] Medication Refill Social History Tobacco [...] Coronavirus/COVID-19? No / Unsure 12/23/2022 3:33 PM HOSPITAL LABORATORY TECHNICIAN documented as of this encounter Miscellaneous Notes * Telephone Encounter - Mohini Aguirre RN - 01/11/2023 11:38 AM HOSPITAL LABORATORY TECHNICIAN Medication(s) [facility]illed and [facility] Chronic Medication Refill Standing Order for Pediatricand [...] Dept 11/26/22 Office Visit Shravan Burgos PAC [facility] 11/16/22 Office Visit Amaya Kowalski APRN, CAT WAGON OPERATOR [facility] 08/12/22 Office Visit Sravani Ramsay MD [facility] Showing recent visits within past 365 days and meeting all other requirements Future Appointments No visits were found meeting these conditions. Showing future appointments within next 90 days and meeting all other requirements Passed - Active short-acting beta agonist prescription ITAL LABORATORY TECHNICIAN documented in this encounter Plan of Treatment Upcoming Encounters Date Type Department Care Team (Late st Contact Info) Description 03/21/2025 4:30 PM CDT Office Visit [facility] - Primary Care - [address] [place] [address] Shravan Burgos, PAC [address] [place] [address] documented as of this encounter Goals Goal Patient Goal Type Associated Problems Recent Progress Patient-Stated? Author Behavioral [facility] Behavioral Health [...] as of this encounter Care Teams Food Crops Farm Hand Relationship Specialty Start Date End Date Amaya Kowalski, EXTENSION SERVICE AGENT, CAT WAGON OPERATOR [address] [place] [address] PCP - General Advanced Practice Nurse 06/10/18 documented as of this encounter
--- OUTSIDE RECORDS SUMMARY | 2024-11-30 18:08 | XMS_ITS | Encounter Summary ---
Author Organization [facility] Address [address] [place] [place] [address] Phone Care Team Providers Care Wrapper Stemmer Hand Name Role Phone Amaya Kowalski APRN, CNP Primary Care Provider Reason for Visit * Reason Comments Medication Refill Encounter Details Date Type Department Care Team ([facility] st Contact Info) Description 12/19/2022 Refill [facility] - Primary Care - [place] [address] [place] [address] Amaya Kowalski APRN, SECURITY SYSTEM INSTALLER [address] [place] [address] Medication Refill Social History Tobacco [...] Coronavirus/COVID-19? No / Unsure 11/26/2022 4:19 PM COMPLAINT INVESTIGATOR documented as of this encounter Miscellaneous Notes * Telephone Encounter - Mohini Aguirre RN - 12/21/2022 9:58 AM COMPLAINT INVESTIGATOR Patient phoned to inform that prescription is ready for olive picker. No answer. Left voicemail. LAINT INVESTIGATOR * Telephone Encounter - Amaya Kowalski APRN, CNP - 12/21/2022 9:50 AM COMPLAINT INVESTIGATOR Urine drug screen needed.[place] Prescription Monitoring Site reviewed. LAINT INVESTIGATOR * Telephone Encounter - Michell Rowley RN - 12/21/2022 9:45 AM COMPLAINT INVESTIGATOR Medication failed the protocol, provider to review [...] Dept 11/26/22 Office Visit Shravan Burgos PAC [facility] [place] [facility] 11/16/22 Office Visit Amaya Kowalski APRN, SECURITY SYSTEM INSTALLER [facility] [place] [facility] 08/12/22 Office Visit Sravani Ramsay MD [facility] Showing recent visits within past 365 days and meeting all other requirements Future Appointments No visits were found meeting these conditions. Showing future appointments within next 90 days and meeting all other requirements LAINT INVESTIGATOR documented in this encounter Plan of Treatment Upcoming Encounters Date Type Department Care Team (Late st Contact Info) Description 03/21/2025 4:30 PM CDT Office Visit [facility] - Primary Care - [place] [address] [facility] [place] [phone] Shravan Burgos PAC [address] [place] [address] documented as of this encounter [...] documented as of this encounter Care Teams Wrapper Stemmer Hand Relationship Specialty Start Date End Date Amaya Kowalski, DENSITOMETER READER, SECURITY SYSTEM INSTALLER [address] [place] [address] PCP - General Advanced Practice Nurse 06/10/18 documented as of this encounter
--- OUTSIDE RECORDS SUMMARY | 2024-11-30 18:08 | XMS_ITS | Encounter Summary ---
Author Organization [facility] Address [address] [place] [address] Phone Care Team Providers Care Apparel Manager Name Role Phone Sravani Ramsay MD Primary Care Provider [phone] Arnold Roberts MD Unavailable Reason for Referral * Other (Routine) - Closed Specialty Diagnoses / Procedures Referred By Contac t Referred To Contact Pulmonology Diagnoses Mild persistent asthma with exacerbation Procedures COMPLETE PFT W + W/O BRONCHODILATOR Arnold Roberts MD [address] [place] [address] Phone: tel: fax: Referral ID Status Reason Start Date Expiration Date Visits Re quested Visits Authorized [id number] Closed 07/26/2023 1 1 Reason for Visit * Other (Routine) - Closed Specialty Diagnoses / Procedures Referred By Contangélica remy Referred To Contact Pulmonology Diagnoses Mild persistent asthma with exacerbation Procedures COMPLETE PFT W + W/O BRONCHODILATOR Arnold Roberts MD [address] [place] [address] Phone: tel: fax: Referral ID Status Reason Start Date Expiration Date Visits Re quested Visits Authorized [id number] Closed 07/26/2023 1 1 Encounter Details Date Type Department Care Team (Latest Contact Info) Description 08/10/2023 4:00 PM CDT - 08/10/2023 11:59 PM CDT Hospital Encounter [facility] Respiratory Therapy [address] [place] [phone] Arnold Roberts MD [address] [place] [phone] Discharge Disposition: Discharged to home or Selfcare [...] PM CDT PULMONARY TEST Admit: 08/10/2023 CSN: [id number] Dictating Provider: [id number] Arnold Roberts MD DATE OF STUDY: 08/10/2023 [...] restriction. Diffusion capacity is minimally reduced. NA/MODL /[id number] documented in this encounter Plan of Treatment Upcoming Encounters Date Type Department Care Team (Late st Contact Info) Description 03/21/2025 4:30 PM CDT Office Visit [facility] - Primary Care - [place] [address] [place] [address] Shravan Burgos, PAC [address] [place] [address] documented [...] and past) that trigger mood concerns. Behavioral [facility] Behavioral Health On track(2019 9:50 [...] as of this encounter Care Teams Apparel Manager Relationship Specialty Start Date End Date Sravani Ramsay MD [address] [place] [address] PCP - General Family Medicine 04/23/23 12/30/23 Arnold Roberts MD [address] [place] [address] Consulting Physician Pulmonary Disease 07/26/23 documented as of this encounter
--- OUTSIDE RECORDS SUMMARY | 2024-11-30 18:08 | XMS_ITS | Encounter Summary ---
Author Organization [employer] Care Team Providers Care Regional Operations Manager Name Role Phone Sravani Ramsay MD [...] CDT Office Visit [facility] - Primary Care - [place] [address] [place] [address] Shravan Burgos, PAC [address] [place] [address] documented as of this encounter Goals Goal Patient Goal Type Associated Problems Recent Progress Patient-Stated? Author [facility] Behavioral Health On track(2019 9:50 AM CDT) [...] make a change Department associated with goal: [facility] [...] documented as of this encounter Care Teams Regional Operations Manager Relationship Specialty Start Date End Date Sravani Ramsay MD [address] [place] [address] PCP - General Family Medicine 04/23/23 12/30/23 documented as of this encounter
--- OUTSIDE RECORDS SUMMARY | 2024-11-30 18:08 | XMS_ITS | Encounter Summary ---
Author Organization [employer] Care Team Providers Care Map Editor Name Role Phone Sravani Ramsay MD Primary [...] [facility] - Primary Care - [place] [address] [place] [address] Shravan Burgos, PAC [address] [place] [address] documented as of this encounter Goals Goal Patient Goal Type Associated Problems Recent Progress Patient-Stated? Author [facility] Behavioral Health On track(2019 9:50 AM CDT) [...] and past) that trigger mood concerns. Behavioral [facility] Behavioral Health On track(2019 9:50 AM [...] documented as of this encounter Care Teams Map Editor Relationship Specialty Start Date End Date Sravani Ramsay MD [address] [place] [address] PCP - General Family Medicine 04/23/23 12/30/23 documented as of this encounter
--- OUTSIDE RECORDS SUMMARY | 2024-11-30 18:08 | XMS_ITS | Encounter Summary ---
Author Organization [facility] Address [address] [place] [address] Phone Care Team Providers Care Ceramic Painter Name Role Phone Amaya Kowalski APRN, DOUGLAS Primary Care Provider Encounter Details Date Type Department Care Team (Late st Contact Info) Description 03/05/2023 3:40 PM CDT Lab [facility] - Primary Care - [address] [address] Lab, [facility] Discharge Disposition: Discharged to home or Selfcare [...] Amaya Kowalski APN 03/05/2023 and Sent to [employer] documented in this encounter Plan of Treatment Upcoming Encounters Date Type Department Care Team (Late st Contact Info) Description 03/21/2025 4:30 PM CDT Office Visit [facility] - Primary Care - [place] [address] [place] [address] Shravan Burgos PAC [address] [place] [address] documented as of this encounter Goals Goal Patient Goal Type Associated Problems Recent Progress Patient-Stated? Author [facility] Behavioral Health On track(2019 9:50 AM CDT) Yes Eloise Jenkins, [facility] Note: Irma reported her goal for psychotherapy [...] track(2019 9:50 AM CDT) No Eloise Jenkins, RAW STOCK DRIER TENDER Note: Irma will engage in a plan [...] documented as of this encounter Care Teams Ceramic Painter Relationship Specialty Start Date End Date Amaya Kowalski, DIRECTOR OF RADIO SERVICES, INTERNAL CONTROLS ANALYST [address] [place] [address] PCP - General Advanced Practice Nurse 06/10/18 documented as of this encounter
--- OUTSIDE RECORDS SUMMARY | 2024-11-30 18:08 | XMS_ITS | Encounter Summary ---
Author Organization [facility] Address [address] [place] [address] Phone Care Team Providers Care Ocean Lifeguard Name Role Phone Sravani Ramsay MD Primary Care Provider [phone] Encounter Details Date Type Department Care Team ([facility] st Contact Info) Description 07/22/2023 4:00 PM CDT Lab [facility] - Primary Care - [address] [address] Lab, [facility] Dysuria Discharge Disposition: Discharged to home or [...] 07/22/2023 4:00 PM CDT ua sent to [facility] documented in this encounter Plan of Treatment Upcoming Encounters Date Type Department Care Team (Late st Contact Info) Description 03/21/2025 4:30 PM CDT Office [facility] - Primary Care - [place] [address] [place] [address] Shravan Burgos PAC [address] [place] [address] documented as of this encounter Goals Goal Patient Goal Type Associated Problems Recent Progress Patient-Stated? Author Behavioral Health Behavioral Health On track(2019 9:50 AM CDT) Yes Eloise Jenkins, STOCK RANCH SUPERVISOR Note: Irma reported her goal for psychotherapy is to help me be able to deal with things in the present and in her past that are contributing to low and anxious mood. Goal Reviewed with: patient Readiness to change: Thinking about making a change Department associated with goal: [facility] Steps to achieve [...] On track(2019 9:50 AM CDT) Eloise Mix STOCK RANCH SUPERVISOR Note: Irma will engage in a plan of action to improve emotional and mental wellbeing. Goal Reviewed with: patient Readiness to change: Not yet ready to make a change Department associated with goal: [facility] Steps to achieve [...] WITHIN 1 DAY 07/24/2023 11:45 AM CDT [facility] Urine URINE SPECIMEN COLLECTION, CLEAN CATCH / Unknown Non-Phlebotomy Collection / Unknown 07/22/2023 3:54 PM CDT 07/22/2023 3:54 PM CDT us Sravani Ramsay MD MICROBIOLOGY - GENERAL ORDER MARK Final Result [facility] [address] [place] [address], * (ABNORMAL) URINALYSIS REFLEX IF INDICATED BY ABNORMAL RESULTS (07/22/2023 3:54 PM CDT) SPECIFIC GRAVITY 1.005 1.003 - 1.030 07/23/2023 8:49 AM CDT [facility] URINE PH 6.0 5.0 - 9.0 07/23/2023 8:49 AM CDT [facility] WBC ESTERASE 25 /ul(A) Negative 07/23/2023 8:49 AM CDT [facility] NITRITE Negative Negative 07/23/2023 8:49 AM CDT [facility] PROTEIN, RANDOM URINE 15 mg/dL(A) Negative 07/23/2023 8:49 AM CDT [facility] URINE GLUCOSE, QUAL Negative Negative 07/23/2023 8:49 AM CDT [facility] URINE KETONES Negative Negative 07/23/2023 8:49 AM CDT [facility] UROBILINOGEN Normal Normal mg/dL 07/23/2023 8:49 AM CDT [facility] URINE BLOOD Negative Negative papi/ul 07/23/2023 8:49 AM CDT [facility] URINALYSIS COLOR Yellow 07/23/20 8:49 AM CDT [facility] URINALYSIS CLARITY Clear 07/23/2023 8:49 AM CDT [facility] WBC (Urine) 0-5 Negative, 0-5 /hpf 07/23/2023 8:49 AM CDT [facility] URINE RBC'S Negative Negative, 0-2 /hpf 07/23/2023 8:49 AM CDT [facility] EPITHELIAL CELLS Large amount squamous /lpf 07/23/2023 8:49 AM CDT [facility] BACTERIA, URINE Few(A) Negative /hpf 07/23/2023 8:49 AM CDT [facility] Urine URINE SPECIMEN COLLECTION, CLEAN CATCH / Unknown Non-Phlebotomy Collection / Unknown 07/22/2023 3:54 PM CDT 07/22/2023 3:54 PM CDT us Sravani Ramsay MD URINE ORDERABLES Final Resul t [facility] [address] [place] [address] documented in this encounter Visit Diagnoses Diagnosis Dysuria documented in this encounter Additional Health Concerns Assessment Noted Time PHQ-9 Depression Total Score: 13 020 2:00 PM CDT documented as of this encounter Care Teams Ocean Lifeguard Relationship Specialty Start Date End Date Sravani Ramsay MD [address] [place] [address] PCP - General Family Medicine 04/23/23 12/30/23 documented as of this encounter
--- OUTSIDE RECORDS SUMMARY | 2024-11-30 18:08 | XMS_ITS | Encounter Summary ---
Author Organization [facility] Address [address] [place] [address] Phone Care Team Providers Care Security Services Specialist Name Role Phone Amaya Kowalski APRN, DOUGLAS Primary Care Provider Reason for Visit * Reason Comments Medication Refill Encounter Details Date Type Department Care Team ([facility] Contact Info) Description 09/17/2022 Refill [facility] - [place] [address] [place] [address] Amaya Kowalski APRN, DISPATCHER MAINTENANCE [address] [place] [address] Medication Refill Social History Tobacco [...] Dept 08/12/22 Office Visit Sravani Ramsay MD [facility] Showing recent visits within past [...] Medical Group - Primary Care - [place] [address] [place] [address] Shravan Burgos, PAC [address] [place] [address] documented as of this encounter Goals Goal Patient Goal Type Associated Problems Recent Progress Patient-Stated? Author Behavioral [facility] Behavioral Health On track(2019 9:50 AM CDT) Yes Eloise Jenkins LCPC Note: Irma reported her goal for psychotherapy is to help me be able to deal with things in the present and in her past that are contributing to low and anxious mood. Goal Reviewed with: patient Readiness to change: Thinking about making a change Department associated with goal: [facility] Steps to [...] that trigger mood concerns. Behavioral [facility] Behavioral Health On track(2019 9:50 AM CDT) No Eloise Jenkins LCPC Note: Irma will engage in a plan of action to improve emotional and mental wellbeing. Goal Reviewed with: patient Readiness to change: Not yet ready to make a change Department associated with goal: [facility] Steps to [...] documented as of this encounter Care Teams Security Services Specialist Relationship Specialty Start Date End Date Amaya Kowalski, PET CARE ASSOCIATE, DISPATCHER MAINTENANCE [address] [place] [address] PCP - General Advanced Practice Nurse 06/10/18 documented as of this encounter
--- OUTSIDE RECORDS SUMMARY | 2024-11-30 18:08 | XMS_ITS | Encounter Summary ---
Author Organization [facility] Address [address] [place] [address] Phone Care Team Providers Care Alteration Worker Name Role Phone Amaya Kowalski APRN, CNP Primary Care Provider Sravani Ramsay MD Primary Care Provider [phone] Arnold Roberts MD Unavailable Shravan Burgos Primary Care Provider [phone] Reason for Visit * Reason Onset Date Comments Cough 11/26/2022 Encounter Details Date Type Department Care Team ([facility] Contact Info) Description 11/26/2022 Nurse Triage [facility] - Primary Care - [place] [address] [place] [address] Amaya Kowalski APRN, SUBWAY TRAIN DRIVER [address] [place] [address] Cough Social History Tobacco Use [...] Coronavirus/COVID-19? No / Unsure 11/26/2022 4:19 PM EXHAUST WORKER documented as of this encounter Miscellaneous Notes * Telephone Encounter - Mohini Aguirre RN - 11/26/2022 11:57 AM EXHAUST WORKER SITUATION: Cough which is keeping her up [...] travel history, exposures) no Protocols used: COUGH-A-OH UST WORKER * Telephone Encounter - Mohini Aguirre RN - 11/26/2022 11:55 AM CSTFrom: Irma Seymour To: Ivelisse Kowalski Sent: 11/26/2022 11:18 AM EXHAUST WORKER Subject: Cough Hello. So I have been [...] let me know. I work till 3pm. UST WORKER documented in this encounter Plan of Treatment Upcoming Encounters Date Type Department Care Team (Late st Contact Info) Description 03/21/2025 4:30 PM CDT Office Visit [facility] - Primary Care - [place] [address] [place] [address] Shravan Burgos, PAPI [address] [place] [address] documented as of this encounter [...] - 19 11/26/2022 11/26/2022 11/26/2022 4:47 PM EXHAUST WORKER COVID - 19 11/26/2022 11/26/2022 12/06/2022 12:1 9 AM EXHAUST WORKER Assessment Noted Time PHQ-9 Depression Total Score: 13 020 2:00 PM CDT documented as of this encounter Care Teams Alteration Worker Relationship Specialty Start Date End Date Amaya Kowalski, COMPANY TANKER TRUCK DRIVER, SUBWAY TRAIN DRIVER [address] [place] [address] PCP - General Advanced Practice Nurse 06/10/18 04/22/23 Sravani Ramsay MD [address] [place] [address] PCP - General Family Medicine 04/23/23 12/30/23 Shravan Burgos, PAC [address] [place] [address] PCP - General Physician Software Development Advisor 12/31/23 Arnold Roberts MD [address] [place] [id number] Consulting Physician Pulmonary Disease 07/26/23 documented as of this encounter
--- OUTSIDE RECORDS SUMMARY | 2024-11-30 18:08 | XMS_ITS | Encounter Summary ---
Author Organization [facility] Address [address] [place] [address] Phone Care Team Providers Care Frit Mixer And Burner Name Role Phone Amaya Kowalski APRN, DOUGLAS Primary Care Provider Encounter Details Date Type Department Care Team ([facility] st Contact Info) Description 12/23/2022 3:40 PM STEEL BURNER Lab [facility] - Primary Care - [address] [phone] Lab, [facility] Discharge Disposition: Discharged to home or Selfcare [...] Coronavirus/COVID-19? No / Unsure 12/23/2022 3:33 PM STEEL BURNER documented as of this encounter Progress Notes * Patti Weaver - 12/23/2022 3:40 PM CST UDS Collected per Amaya Kowalski APN 12/23/2022 and Sent to [employer] [facility] documented in this encounter Plan of Treatment Upcoming Encounters Date Type Department Care Team (Late st Contact Info) Description 03/21/2025 4:30 PM CDT Office Visit [facility] - Primary Care - [place] [address] [place] [address] Shravan Burgos, PAPI [address] [place] [address] documented as of this encounter Goals Goal Patient Goal Type Associated Problems Recent Progress Patient-Stated? Author Behavioral Health Behavioral Health On track(2019 9:50 AM CDT) Yes Eloise Jenkins, [facility] Note: Irma reported her goal for psychotherapy [...] documented as of this encounter Care Teams Frit Mixer And Burner Relationship Specialty Start Date End Date Amaya Kowalski, HAND KISS SETTER, HYDROELECTRIC MACHINERY MECHANIC HELPER [address] [place] [address] PCP - General Advanced Practice Nurse 06/10/18 documented as of this encounter
--- OUTSIDE RECORDS SUMMARY | 2024-11-30 18:08 | XMS_ITS | Encounter Summary ---
Author Organization [employer] Care Team Providers Care Professor Of Biological Sciences Name Role Phone Amaya Kowalski APRN, FLAMER SEALER Primary Care Provider Encounter Details Date Type [...] Description 03/21/2025 4:30 PM CDT Office Visit [facility] - Primary Care - [place] [address] [...] of this encounter Care Teams Professor Of Biological Sciences Relationship Specialty Start Date End Date Amaya Kowalski, ONLINE MARKETING COORDINATOR, FLAMER SEALER [address] [place] [address] PCP - General Advanced Practice Nurse 06/10/18 documented as of this encounter
--- OUTSIDE RECORDS SUMMARY | 2024-11-30 18:08 | XMS_ITS | Encounter Summary ---
Author Organization [facility] Address [address] [place] [address] Phone Care Team Providers Care Engine Installer Name Role Phone Amaya Kowalski APRN, CNP Primary Care Provider Reason for Visit * Reason Comments Medication Refill Encounter Details Date Type Department Care Team ([facility] st Contact Info) Description 01/24/2023 Refill [facility] - Primary Care - [place] [address] [place] [phone] Clark Archibald MD [address] [place] [address] Medication Refill Social History [...] 01/27/2023 4:23 PM CST Rx request approved MECHANIC * Telephone Encounter - Latia Garcia RN [...] Dept 11/26/22 Office Visit Shravan Burgos PAC [facility] 11/16/22 Office Visit Amaya Kowalski APRN, PROGRAM PROFESSIONAL [facility] 08/12/22 Office Visit Sravani Ramsay MD [facility] Showing recent visits within past 365 days and meeting all other requirements Future Appointments No visits were found meeting these conditions. Showing future appointments within next 90 days and meeting all other requirements MECHANIC documented in this encounter Plan of Treatment Upcoming Encounters Date Type Department Care Team (Late st Contact Info) Description 03/21/2025 4:30 PM CDT Office Visit [facility] - Primary Care - [place] [address] [place] [address] Shravan Burgos PAC [address] [place] [address] documented as of this encounter Goals Goal Patient Goal Type Associated Problems Recent Progress Patient-Stated? Author [facility] Behavioral Health On track(2019 9:50 [...] and past) that trigger mood concerns. Behavioral [facility] Behavioral Health On track(2019 9:50 [...] documented as of this encounter Care Teams Engine Installer Relationship Specialty Start Date End Date Amaya Kowalski, COMMUNITY SERVICE DIRECTOR, PROGRAM PROFESSIONAL [address] [place] [address] PCP - General Advanced Practice Nurse 06/10/18 documented as of this encounter
--- OUTSIDE RECORDS SUMMARY | 2024-11-30 18:08 | XMS_ITS | Encounter Summary ---
Author Organization [facility] Address [address] [place] [address] Phone Care Team Providers Care Health Center Manager Name Role Phone Amaya Kowalski APRN, CNP Primary Care Provider Reason for Visit * Reason Comments Cough X1 week Wheezing Encounter Details Date Type Department Care Team ([facility] st Contact Info) Description 11/26/2022 4:30 PM COMMERCIAL LOAN PROCESSOR Office Visit [facility] - Primary Care - [address] [place] [address] Shravan Burgos PAC [address] [place] [address] Mild persistent asthma with exacerbation [...] LOAN PROCESSOR documented as of this encounter Last Filed Vital Signs Vital Sign Reading Time Taken Comments Blood Pressure 116/72 11/26/2022 4:21 PM COMMERCIAL LOAN PROCESSOR Pulse 78 11/26/2022 4:21 PM COMMERCIAL LOAN PROCESSOR Temperature 36.4 ??C (97.5 ??F) 11/26/2022 4:21 PM CS T Respiratory Rate 18 11/26/2022 4:21 PM COMMERCIAL LOAN PROCESSOR Oxygen Saturation 98% 11/26/2022 4:21 PM COMMERCIAL LOAN PROCESSOR Inhaled Oxygen Concentration - - Weight 64 kg (141 lb) 11/26/2022 4:21 PM COMMERCIAL LOAN PROCESSOR Height 160 cm (5' 3 ) 11/26/2022 4:21 PM COMMERCIAL LOAN PROCESSOR Body Mass Index 24.98 11/26/2022 4:21 PM COMMERCIAL LOAN PROCESSOR documented in this encounter Patient Instructions * Patient Instructions* Shravan Burgos PAC - 11/26/2022 4:30 PM COMMERCIAL LOAN PROCESSOR PCR covid testing today. Will call with [...] please call. Thanks for coming in today! ERCIAL LOAN PROCESSOR ERCIAL LOAN PROCESSOR documented in this encounter Progress Notes * [...] been addressed with the patient today: N/A ERCIAL LOAN PROCESSOR * Shravan Burgos PAC - 11/26/2022 4:30 [...] tenderness or frontal sinus tenderness. Mouth/Throat: Lips: [place]. Mouth: Mucous membranes are moist. Pharynx: Oropharynx [...] additions, deletions and changes made as appropriate. ERCIAL LOAN PROCESSOR documented in this encounter Plan of Treatment Upcoming Encounters Date Type Department Care Team (Late st Contact Info) Description 03/21/2025 4:30 PM CDT Office Visit [facility] - Primary Care - [address] [address] [place] [phone] Shravan Burgos PAC [address] [place] [phone] documented as of this encounter Goals Goal [...] SARS-COV-2 BY MOLECULAR Routine 11/26/2022 5:06 PM COMMERCIAL LOAN PROCESSOR Acute cough documented in this encounter Results * SARS-COV-2 BY MOLECULAR (11/26/2022 5:06 PM COMMERCIAL LOAN PROCESSOR) SARSCOV2 NOT DETECTED (Referen ce Range for this test is Not Detected ) [facility] THERMOFISHER FAST DX 11/27/2022 11:04 PM COMMERCIAL LOAN PROCESSOR [facility] Comment:This test was perfor med by a RT-PCR method. Other NASOPHARYNGEAL STRUCTURE / Unknown Non-Phlebotomy Collection / Unknown 11/26/2022 5:06 PM COMMERCIAL LOAN PROCESSOR 11/26/2022 5:06 PM COMMERCIAL LOAN PROCESSOR Narrative [facility] - 11/27/2022 11:04 PM COMMERCIAL LOAN PROCESSOR Authorized Fact Sheets about this test for providers and patients are available at: https://www.fda.gov/medical-devices/dvrbkmwpo-ofhuacbwmh-ymipkvq-devices/emergen -us e-authorizations us Shravan Burgos PAC MICROBIOLOGY - GENERAL ORDER MARK Final Result [facility] [address] [place] [address], [place] documented in this encounter Visit Diagnoses Diagnosis Mild persistent asthma with exacerbation- Primary Unspecified asthma, with exacerbation Simple chronic bronchitis (HCC) Simple chronic bronchitis Acute cough documented in this encounter Additional Health Concerns Infection Onset Date Last Indicated Resolved Time COVID - 19 11/26/2022 11/26/2022 11/26/2022 4:47 PM COMMERCIAL LOAN PROCESSOR COVID - 19 11/26/2022 11/26/2022 12/06/2022 12:1 9 AM COMMERCIAL LOAN PROCESSOR Assessment Noted Time PHQ-9 Depression Total Score: 13 020 2:00 PM CDT documented as of this encounter Care Teams Health Center Manager Relationship Specialty Start Date End Date Amaya Kowalski, OYSTER FARMER, FOUR H AGENT [address] [place] [address] PCP - General Advanced Practice Nurse 06/10/18 documented as of this encounter
--- OUTSIDE RECORDS SUMMARY | 2024-11-30 18:08 | XMS_ITS | Encounter Summary ---
Author Organization [facility] Address [address] [place] [address] Phone Care Team Providers Care Painter Aircraft Name Role Phone Amaya Kowalski APRN, CNP Primary Care Provider Reason for Visit * Reason Onset Date Comments Medication Refill 03/01/2023 Encounter Details Date Type Department Care Team (Late st Contact Info) Description 03/01/2023 MyChart RX Renewal [facility] - Primary Care - [place] [address] [place] [address] Clark Archibald MD [address] [place] [address] Medication Renewal Reviewed Social History [...] to inform that prescription is ready for order picker. No answer. Left voicemail. My Chart message sent to patient. * Telephone Encounter - Mohini Aguirre RN - 03/01/2023 3:59 PM CDT Patient phoned to inform that prescription is ready for order picker. No answer. Left voicemail. UDS order placed. * Telephone Encounter - Amaya Kowalski APRN, CNP - 03/01/2023 3:53 PM CDT Urine drug screen.[place] Prescription Monitoring Site reviewed. * Telephone [...] Dept 11/26/22 Office Visit Shravan Burgos PAC [facility] [address] 11/16/22 Office Visit Amaya Kowalski APRN, DOUGLAS [facility] [address] [facility] 08/12/22 Office Visit [facility] Showing recent visits within past 365 days and meeting all other requirements Future Appointments No visits were found meeting these conditions. Showing future appointments within next 90 days and meeting all other requirements documented in this encounter Plan of Treatment Upcoming Encounters Date Type Department Care Team (Late st Contact Info) Description 03/21/2025 4:30 PM CDT Office Visit [facility] - Primary Care - [place] [address] [place] [address] Shravan Burgos PAC [address] [place] [address] Scheduled Orders Name Type Priority [...] documented as of this encounter Care Teams Painter Aircraft Relationship Specialty Start Date End Date Amaya Kowalski, WHEEL PRESS CLERK, ADJUNCT PHYSICS INSTRUCTOR [address] [place] [address] PCP - General Advanced Practice Nurse 06/10/18 documented as of this encounter
--- OUTSIDE RECORDS SUMMARY | 2024-11-30 18:08 | XMS_ITS | Encounter Summary ---
Author Organization [employer] Care Team Providers Care Hazardous Waste Material Technician Name Role Phone Amaya Kowalski APRN, UROLOGY PHYSICIAN ASSISTANT Primary Care Provider Encounter Details Date [...] Office Visit [facility] - Primary Care - [address] [place] [address] Shravan Burgos, PAC [address] [place] [address] documented [...] and past) that trigger mood concerns. Behavioral [facility] Health [...] documented as of this encounter Care Teams Hazardous Waste Material Technician Relationship Specialty Start Date End Date Amaya Kowalski, UX INFORMATION ARCHITECT, UROLOGY PHYSICIAN ASSISTANT [address] [place] [address] PCP - General Advanced Practice Nurse 06/10/18 documented as of this encounter
--- OUTSIDE RECORDS SUMMARY | 2024-11-30 18:08 | XMS_ITS | Encounter Summary ---
Author Organization [employer] Care Team Providers Care Cosmetology Educator Name Role Phone Amaya Kowalski APRN, CARDIOVASCULAR LAB DIRECTOR Primary Care Provider Encounter Details Date Type [...] Description 03/21/2025 4:30 PM CDT Office Visit [facility] - Primary Care - [address] [...] documented as of this encounter Care Teams Cosmetology Educator Relationship Specialty Start Date End Date Amaya Kowalski, PHOTONICS ENGINEERING TECHNICIAN, CARDIOVASCULAR LAB DIRECTOR [address] [place] [address] PCP - General Advanced Practice Nurse 06/10/18 documented as of this encounter
--- OUTSIDE RECORDS SUMMARY | 2024-11-30 18:08 | XMS_ITS | Encounter Summary ---
Author Organization [facility] Address [address] [place] [address] Phone Care Team Providers Care Appeals Nurse Name Role Phone Amaya Kowalski APRN, CNP Primary Care Provider Reason for Visit * Reason Comments Medication Refill Encounter Details Date Type Department Care Team ([facility] Contact Info) Description 09/17/2022 Refill [facility] - Primary Care - [place] [address] [place] [address] Amaya Kowalski APRN, MEDICAL TECHNOLOGIST CHEMISTRY [address] [place] [address] Medication Refill Social History Tobacco [...] PM CDT Medication[facility]) [facility] Medication Refill Standing Order for [...] Dept 08/12/22 Office Visit Sravani Ramsay MD [facility] Showing recent visits within past 365 days and meeting all other requirements Future Appointments No visits were found meeting these conditions. Showing future appointments within next 90 days and meeting all other requirements documented in this encounter Plan of Treatment Upcoming Encounters Date Type Department Care Team (Late st Contact Info) Description 03/21/2025 4:30 PM CDT Office Visit [facility] - Primary Care - [address] [place] [address] Shravan Burgos, PAPI [address] [place] [address] documented as of this encounter Goals Goal Patient Goal Type Associated Problems Recent Progress Patient-Stated? Author [facility] On track(2019 9:50 AM CDT) [...] (current and past) that trigger mood concerns. [facility] On track(2019 9:50 AM CDT) [...] documented as of this encounter Care Teams Appeals Nurse Relationship Specialty Start Date End Date Amaya Kowalski APRN, MEDICAL TECHNOLOGIST CHEMISTRY [address] [place] [address] PCP - General Advanced Practice Nurse 06/10/18 documented as of this encounter
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
--- OUTSIDE RECORDS SUMMARY | 2024-11-30 18:08 | XMS_ITS | Encounter Summary ---
Author Organization [facility] Address [address] [place] [address] Phone Care Team Providers Care Merchandise Handler Name Role Phone Amaya Kowalski APRN, DOUGLAS Primary Care Provider Reason for Visit * Reason Comments Medication Refill Encounter Details Date Type Department Care Team ([facility] Contact Info) Description 11/04/2022 Refill [facility] - [facility] - [place] [address] [place] [address] Amaya Kowalski APRN, INSOLE CEMENTER [address] [place] [address] Medication Refill Social History Tobacco [...] Dept 08/12/22 Office Visit Sravani Ramsay MD [facility] Showing recent visits within past 365 days and meeting all other requirements Future Appointments No visits were found meeting these conditions. Showing future appointments within next 90 days and meeting all other requirements Passed - Active short-acting beta agonist prescription NG WORKER documented in this encounter Plan of Treatment Upcoming Encounters Date Type Department Care Team (Late st Contact Info) Description 03/21/2025 4:30 PM CDT Office Visit [facility] - Primary Care - [place] [address] [place] [address] Shravan Burgos PAC [address] [place] [address] documented as of this encounter [...] documented as of this encounter Care Teams Merchandise Handler Relationship Specialty Start Date End Date Amaya Kowalski, APPLICATION SUPPORT ANALYST, INSOLE CEMENTER [address] [place] [address] PCP - General Advanced Practice Nurse 06/10/18 documented as of this encounter
--- OUTSIDE RECORDS SUMMARY | 2024-11-30 18:08 | XMS_ITS | Encounter Summary ---
Author Organization [facility] Address [address] [place] [address] Phone Care Team Providers Care First Aid Trainer Name Role Phone Sravani Ramsay MD Primary Care Provider [phone] Arnold Roberts MD Unavailable Reason for Referral * Other (Routine) - Closed Specialty Diagnoses / Procedures Referred By Claudio remy Referred To Contact Pulmonology Diagnoses Mild persistent asthma with exacerbation Procedures COMPLETE PFT W + W/O BRONCHODILATOR Arnold Roberts MD [address] [place] [address] Phone: tel: fax: Referral ID Status Reason Start Date Expiration Date Visits Re quested Visits Authorized [id number] Closed 07/26/2023 1 1 Reason for Visit * Reason Comments New Patient Referral from Dr Olivier sánchez for asthma * Consult, Test & Initiate Treatment (Routine) - Closed Specialty Diagnoses / Procedures Referred By Claudio remy Referred To Contact Pulmonology Diagnoses Mild persistent asthma with exacerbation Sravani Ramsay MD Phone: tel: fax: [facility] - Pulmonology & Sleep Medicine [facility] [address] [place] [address] Phone: tel: fax: Referral ID Status Reason Start Date Expiration Date Visits Re quested Visits Authorized [id number] Closed 06/24/2023 1 1 Encounter Details Date Type Department Care Team (Late st Contact Info) Description 07/26/2023 2:15 PM CDT Office Visit [facility] - Pulmonology & Sleep Medicine [facility] [address] [place] [address] Arnold Roberts MD [address] [place] [address] Moderate persistent asthma without complication (Primary Dx); [...] to be admitted 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 Past Surgical History: has no past [...] Type Start Date End Date Comment Verified Salesperson Floor Coverings Doxycycline Allergy 01-Jun-2018 Severity: Medium Reactions: Trell [...] Office Visit [facility] - Primary Care - [place] [address] [place] [address] Shravan Burgos, PAC [address] [place] [address] documented as of this encounter [...] documented as of this encounter Care Teams First Aid Trainer Relationship Specialty Start Date End Date Sravani Ramsay MD [address] [place] [address] PCP - General Family Medicine 04/23/23 12/30/23 Arnold Roberts MD [address] [place] [address] Consulting Physician Pulmonary Disease 07/26/23 documented as of this encounter
--- OUTSIDE RECORDS SUMMARY | 2024-11-30 18:08 | XMS_ITS | Encounter Summary ---
Author Organization [facility] Address [address] [facility] [place] [address] Phone Care Team Providers Care Production Repairer Name Role Phone Sravani Ramsay MD Primary Care Provider [phone] Arnold Roberts MD Unavailable Reason for Referral * Other (Routine) - Open Specialty Diagnoses / Procedures Referred By Contac t Referred To Contact Central Scheduling Diagnoses Mild persistent asthma with exacerbation Procedures COMPLETE PFT W + W/O BRONCHODILATOR Arnold Roberts MD [address] [place] [address] Phone: tel: fax: Referral ID Status Reason Start Date Expiration Date Visits Re quested Visits Authorized [id number] Open 08/17/2023 1 1 Encounter Details Date Type Department Care Team (Late st Contact Info) Description 08/17/2023 [facility] [address] [place] [address] Arnold Roberts MD [address] [place] [address] Social History Tobacco Use Types [...] Description 03/21/2025 4:30 PM CDT Office Visit [facility] - Primary Care - [place] [address] [place] [address] Shravan Burgos PAC [address] [place] [address] Scheduled Orders Name Type Priority [...] as of this encounter Care Teams Production Repairer Relationship Specialty Start Date End Date Sravani Ramsay MD [address] [place] [address] PCP - General Family Medicine 04/23/23 12/30/23 Arnold Roberts MD [address] [place] [address] Consulting Physician Pulmonary Disease 07/26/23 documented as of this encounter
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
--- OUTSIDE RECORDS SUMMARY | 2024-11-30 18:08 | XMS_ITS | Encounter Summary ---
Author Organization [facility] Address [address] [place] [address] Phone Care Team Providers Care Ballistics Teacher Name Role Phone Amaya Kowalski APRN, DOUGLAS Primary Care Provider Reason for Visit * Reason Comments Medication Refill Encounter Details Date Type Department Care Team ([facility] Contact Info) Description 09/17/2022 Refill [facility] - [facility] - [place] [address] [place] [address] Amaya Kowalski APRN, SENIOR ERP CONSULTANT [address] [place] [address] Medication Refill Social History Tobacco [...] PM CDT Medication(s) refilled and [facility] Chronic Medication Refill Standing Order for Pediatricand [...] Dept 08/12/22 Office Visit Sravani Ramsay MD [facility] Showing recent visits within past [...] Description 03/21/2025 4:30 PM CDT Office Visit [facility] - Primary Care - [place] [address] [place] [address] Shravan Burgos, PAPI [address] [place] [address] documented as of this encounter Goals Goal Patient Goal Type Associated Problems Recent Progress Patient-Stated? Author [facility] On track(2019 9:50 AM CDT) Yes Eloise Jenkins LCPC Note: Irma reported her goal for psychotherapy is to help me be able to deal with things in the present and in her past that are contributing to low and anxious mood. Goal Reviewed with: patient Readiness to change: Thinking about making a change Department associated with goal: [facility] Steps to [...] (current and past) that trigger mood concerns. [facility] On track(2019 9:50 AM CDT) No Eloise Jenkins LCPC Note: Irma will engage in a plan of action to improve emotional and mental wellbeing. Goal Reviewed with: patient Readiness to change: Not yet ready to make a change Department associated with goal: [facility] Steps to [...] as of this encounter Care Teams Ballistics Teacher Relationship Specialty Start Date End Date Amaya Kowalski, ROAD ENGINEER FREIGHT, SENIOR ERP CONSULTANT [address] [place] [address] PCP - General Advanced Practice Nurse 06/10/18 documented as of this encounter
--- OUTSIDE RECORDS SUMMARY | 2024-11-30 18:08 | XMS_ITS | Encounter Summary ---
Author Organization [facility] Address [address] [place] [address] [facility] [place] [address] Phone Care Team Providers Care De Icer Finisher Name Role Phone Sravani Ramsay MD Primary Care Provider [phone] Reason for Visit * Reason Comments Transition of Care Encounter Details Date Type Department Care Team ([facility] st Contact Info) Description 04/23/2023 4:00 PM CDT Office Visit [facility] - Primary Care - [place] [address] [place] [address] Sravani Ramsay MD [address] [place] [address] Tobacco use disorder (Primary Dx); Lumbar spine [...] * Preventive Care 40-64 Years Old Female (Eritrean) * Scoliosis (Eritrean) documented in this encounter Progress Notes * [...] MOUTH TWO TIMES A DAY 01/11/23 Yes Amaay Kowalski APRN, CNP There are no discontinued [...] Description 03/21/2025 4:30 PM CDT Office Visit [facility] - Primary Care - [place] [address] [place] [address] Shravan Burgos, PAPI [address] [place] [address] documented as of this encounter Goals Goal Patient Goal Type Associated Problems Recent Progress Patient-Stated? Author Behavioral [facility] Behavioral Health On track(2019 9:50 [...] and past) that trigger mood concerns. Behavioral [facility] Behavioral Health On track(2019 9:50 [...] CDT) hepatitis C antibody 0.10 <1 S/CO [facility] ARCH [id number] B 07/15/2023 3:00 PM CDT [facility] Comment: Signal/Cutoff ratio ??< 0.79 is Nondetected Signal/Cutoff ratio 0.80-0.99 is Grayzone Signal/Cutoff ratio > 0.99 is Detected Supplemental assays are recommended if signal/cutoff ratio is >/=1.00. ??Signal/cutoff ratio result >/= 5.00 is 97% predictive of positivity for recombinant immunoblot assay (RIBA) and will be reported to the [place] Department of Public [facility] as required. Blood Venipuncture / Unknown 07/14/2023 4:05 PM CDT 07/14/2023 4:33 PM CDT us Sravani Ramsay MD CHEMISTRY ORDERABLES Final R esult [facility] [address] [place] [address], documented in this encounter Visit Diagnoses Diagnosis Tobacco use disorder- Primary Lumbar spine pain Lumbago Mild persistent asthma with exacerbation Unspecified asthma, with exacerbation Encounter for preventative adult health care examination Severe scoliosis documented in this encounter Additional Health Concerns Assessment Noted Time PHQ-9 Depression Total Score: 13 020 2:00 PM CDT documented as of this encounter Care Teams De Icer Finisher Relationship Specialty Start Date End Date Sravani Ramsay MD [address] [place] [address] PCP - General Family Medicine 04/23/23 12/30/23 documented as of this encounter
--- OUTSIDE RECORDS SUMMARY | 2024-11-30 18:08 | XMS_ITS | Encounter Summary ---
Author Organization [facility] Address [address] [facility] [place] [address] Phone Care Team Providers Care Catia Designer Name Role Phone Sravani Ramsay MD Primary Care Provider [phone] Arnold Roberts MD Unavailable Reason for Visit * Reason Comments Medication Refill Encounter Details Date Type Department Care Team (Late st Contact Info) Description 08/11/2023 Refill [facility] - Primary Care - [place] [address] [place] [address] Sravani Ramsay MD [address] [place] [address] Medication Refill Social History Tobacco [...] Dept 04/23/23 Office Visit Sravani Ramsay MD [facility] 11/26/22 Office Visit Shravan Burgos, PAPI [facility] 11/16/22 Office Visit Amaya Kowalski, MEGAN, HEALTHCARE PROJECT MANAGER [facility] 08/12/22 Office Visit Sravani Ramsay MD [facility] Showing recent visits within [...] [facility] - Primary Care - [place] [address] [place] [address] Shravan Burgos PAC [address] [place] [address] documented as of this encounter Goals [...] make a change Department associated with goal[facility] Steps to achieve [...] documented as of this encounter Care Teams Catia Designer Relationship Specialty Start Date End Date Sravani Ramsay MD [address] [place] [address] PCP - General Family Medicine 04/23/23 12/30/23 Arnold Roberts MD [address] [place] [address] Consulting Physician Pulmonary Disease 07/26/23 documented as of this encounter
--- OUTSIDE RECORDS SUMMARY | 2024-11-30 18:08 | XMS_ITS | Encounter Summary ---
Author Organization [facility] Address [address] [place] [address] [place] [address] Phone Care Team Providers Care Feather Maker Name Role Phone Sravani Ramsay MD Primary Care Provider [phone] Reason for Visit * Reason Comments Medication Refill Encounter Details Date Type Department Care Team (Late st Contact Info) Description 05/07/2023 Refill [facility] - Primary Care - [place] [address] [place] [address] Sravani Ramsay MD [address] [place] [address] Medication Refill Social History Tobacco [...] Dept 04/23/23 Office Visit Sravani Ramsay MD [facility] 11/26/22 Office Visit Shravan Burgos PAC [facility] 11/16/22 Office Visit Amaya Kowalski, MEGAN, ELEVATOR REPAIR MECHANIC [facility] 08/12/22 Office Visit Sravani Ramsay MD [facility] Showing recent visits within past 365 [...] [facility] - Primary Care - [place] [address] [place] [address] Shravan Burgos, PAPI [address] [place] [address] documented as of this encounter Goals Goal Patient Goal Type Associated Problems Recent Progress Patient-Stated? Author Behavioral Health Behavioral Health On track(2019 9:50 AM CDT) Yes Eloise Jenkins, [facility] Note: Irma reported her goal for psychotherapy [...] documented as of this encounter Care Teams Feather Maker Relationship Specialty Start Date End Date Sravani Ramsay MD [address] [place] [address] PCP - General Family Medicine 04/23/23 12/30/23 documented as of this encounter
--- OUTSIDE RECORDS SUMMARY | 2024-11-30 18:09 | XMS_ITS | Encounter Summary ---
Author Organization [employer] Care Team Providers Care Pain Coordinator Name Role Phone Amaya Kowalski APRN, SPA MANAGER/ESTHETICIAN Primary Care Provider Encounter Details Date Type [...] [facility] Medical [facility] - Primary [...] documented as of this encounter Care Teams Pain Coordinator Relationship Specialty Start Date End Date Amaya Kowalski, SUPERVISOR [employer], SPA MANAGER/ESTHETICIAN [address] [place] [address] PCP - General Advanced Practice Nurse 06/10/18 documented as of this encounter
--- OUTSIDE RECORDS SUMMARY | 2024-11-30 18:09 | XMS_ITS | Encounter Summary ---
Author Organization [facility] Address [address] [place] [address] Phone Care Team Providers Care Project Buyer Name Role Phone Amaya Kowalski APRN, CEO & FOUNDER Primary Care Provider Encounter Details Date Type Department Care Team (Late st Contact Info) Description 09/10/2022 4:15 PM CDT [facility] [address], [address] [place] [address] Veronika Orantes APRN, CEO & FOUNDER [address] [place] [address] Jameel Florian, PT [place] Discharge Disposition: Discharged [...] Home Exercises distributed via: handout Access Code: [email or web address] Patient response to new home exercises provided [...] 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 All charges entered today [...] relief, soft tissue extensibility and joint mobility (96354) - Therapeutic exercise program for: motion/mobility, strengthening, flexibility, and functional limitations (02155) - Therapeutic activities for functional activity education/training, and in home safety recommendations as appropriate (28814) - Neuro Muscular Re-education for body mechanics education and postural re- education as appropriate(21179) - Gait training (95757) - Patient education regarding posture, ergonomics, body mechanics, HEP progression and exercise performance - Individualized home exercise program - Modalities as needed for pain relief, anti-inflammatory effect and soft tissue extensibility - Mechanical traction (72013) - Trigger point dry needling for pain relief and reducing tension in associated musculature (32910 or ) Precautions: none noted at this [...] Description 03/21/2025 4:30 PM CDT Office Visit [facility] - Primary Care - [place] [address] [place] [address] Shravan Burgos PAC [address] [place] [address] documented as of this [...] a change Department associated with goal: [facility] BE[facility]AVIORAL HE[facility] SERVICES Steps to achieve [...] a change Department associated with goal: [facility] Steps to achieve [...] as of this encounter Care Teams Project Buyer Relationship Specialty Start Date End Date Amaya Kowalski APRN, CEO & FOUNDER [address] [place] [address] PCP - General Advanced Practice Nurse 06/10/18 documented as of this encounter
--- OUTSIDE RECORDS SUMMARY | 2024-11-30 18:09 | XMS_ITS | Encounter Summary ---
Author Organization [facility] Address [address] [place] [address] Phone Care Team Providers Care Dielectric Tester Name Role Phone Amaya Kowalski APRN, ELECTRICAL/INSTRUMENT TECHNICIAN Primary Care Provider Encounter Details Date Type Department Care Team (Late st Contact Info) Description 09/03/2022 4:15 PM CDT [facility] [address], [address] [place] [address] Veronika Orantes APRN, ELECTRICAL/INSTRUMENT TECHNICIAN [address] [facility] [facility] [address] [place] [address] Jameel Florian, PT [place] Discharge Disposition: Discharged [...] Home Exercises distributed via: handout Access Code: [email or web address] URL: [email or web address] Date: 08/24/2022 Prepared by: Jameel Florian Exercises [...] 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 All charges entered today [...] relief, soft tissue extensibility and joint mobility (63406) - Therapeutic exercise program for: motion/mobility, strengthening, flexibility, and functional limitations (25211) - Therapeutic activities for functional activity education/training, and in home safety recommendations as appropriate (92806) - Neuro Muscular Re-education for body mechanics education and postural re- education as appropriate(42549) - Gait training (06197) - Patient education regarding posture, ergonomics, body mechanics, HEP progression and exercise performance - Individualized home exercise program - Modalities as needed for pain relief, anti-inflammatory effect and soft tissue extensibility - Mechanical traction (11576) - Trigger point dry needling for pain [...] CDT Office Visit [facility] - Primary Care - [place] [address] [place] [address] Shravan Burgos PAC [address] [place] [address] documented as of this encounter [...] documented as of this encounter Care Teams Dielectric Tester Relationship Specialty Start Date End Date Amaya Kowalski, SILK BLOCKER, ELECTRICAL/INSTRUMENT TECHNICIAN [address] [place] [address] PCP - General Advanced Practice Nurse 06/10/18 documented as of this encounter
--- OUTSIDE RECORDS SUMMARY | 2024-11-30 18:09 | XMS_ITS | Encounter Summary ---
Author Organization [employer] Care Team Providers Care Microsoft Dynamics Consultant Name Role Phone Amaya Kowalski APRN, MAINTENANCE OF WAY SUPERINTENDENT Primary Care Provider Encounter Details Date Type [...] [facility] - Primary Care - [place] [address] [place] [address] Shravan Burgos, PAC [address] [place] [address] documented as of this encounter Goals Goal Patient Goal Type Associated Problems Recent Progress Patient-Stated? Author [facility] Health On track(2019 9:50 AM [...] and past) that trigger mood concerns. Behavioral [facility] Behavioral Health On track(2019 9:50 [...] documented as of this encounter Care Teams [employer] Consultant Relationship Specialty Start Date End Date Amaya Kowalski, METAL BURNISHER, MAINTENANCE OF WAY SUPERINTENDENT [address] [place] [address] PCP - General Advanced Practice Nurse 06/10/18 documented as of this encounter
--- OUTSIDE RECORDS SUMMARY | 2024-11-30 18:09 | XMS_ITS | Encounter Summary ---
Author Organization [employer] Care Team Providers Care Clipper Operator Name Role Phone Amaya Kowalski APRN, TELE MARKETING EXECUTIVE Primary Care Provider Encounter Details Date Type [...] [facility] Medical [facility] - Primary Care - [place] [address] [place] [address] Shravan Burgos, PAC [address] [place] [address] documented as of this encounter Goals Goal Patient Goal Type Associated Problems Recent Progress Patient-Stated? Author [facility] Health On track(2019 9:50 AM CDT) Yes Eloise Jenkins LCPC Note: Irma reported her goal for psychotherapy is to help me be able to deal with things in the present and in her past that are contributing to low and anxious mood. Goal Reviewed with: patient Readiness to change: Thinking about making a change Department associated with goal: [facility] Steps to [...] and past) that trigger mood concerns. Behavioral [facility] Behavioral Health On track(2019 9:50 AM CDT) No Eloise Jenkins LCPC Note: Irma will engage in a plan of action to improve emotional and mental wellbeing. Goal Reviewed with: patient Readiness to change: Not yet ready to make a change Department associated with goal: [facility] Steps to [...] documented as of this encounter Care Teams Clipper Operator Relationship Specialty Start Date End Date Amaya Kowalski, FIELD APPLICATION ENGINEER, TELE MARKETING EXECUTIVE [address] [place] [address] PCP - General Advanced Practice Nurse 06/10/18 documented as of this encounter
--- OUTSIDE RECORDS SUMMARY | 2024-11-30 18:09 | XMS_ITS | Encounter Summary ---
Author Organization [facility] Address [address] [facility] [place] [address] Phone Care Team Providers Care Horseradish Grinder Name Role Phone Amaya Kowalski APRN, CNP Primary Care Provider Reason for Visit * Radiology Services (Routine) - Closed Specialty Diagnoses / Procedures Referred By Claudio t Referred To Contact Radiology Diagnoses Visit for screening mammogram Procedures NU SCREENING BILATERAL DIGITAL W CAD W WILBERT NU SCREENING BILATERAL DIGITAL W CAD Veronika Orantes APRN, CNP [address] [place] [address] Phone: tel: fax: Referral ID Status Reason Start Date Expiration Date Visits Re quested Visits Authorized [id number] Closed 07/17/2022 1 1 Encounter Details Date Type Department Care Team (Latest Contact Info) Description 08/14/2022 5:43 PM CDT - 08/14/2022 11:59 PM CDT [facility] [address] [place] [address] Veronika Orantes APRN FREIGHT FORWARDER [address] [place] [address] Discharge Disposition: Discharged to home or Selfcare [...] 03/21/2025 4:30 PM CDT Office Visit [facility] - Primary Care - [place] [address] [place] [address] Shravan Burgos, PAPI [address] [place] [address] documented as of this encounter Goals [...] a change Department associated with goal: [facility] BE[facility]AVIORAL HEALTH SERVICES [...] concerns. Behavioral [facility] Behavior[facility] Health On track(2019 9:50 AM CDT) No Eloise Jenkins LCPC Note: Irma will engage in a plan of action to improve emotional and mental wellbeing. Goal Reviewed with: patient Readiness to change: Not yet ready to make a change Department associated with goal: [facility] [...] exams dated: ??11/04/2020, 09/13/2020, and 03/14/2019 [facility]. ?? BREAST TISSUE:The tissue of both breasts [...] Mounika Song M.D. ? flash/jenna:08/17/2022 14:00:18 ?? Associate Store Director(s): Rani ??RT Carolee(R)(M), [facility] letter sent: Normal Exam ?? Reading location: [place] BI-RADS: 1 Negative Procedure Note Mounika Song MD - 08/17/2022 - NU SCREENING BILATERAL DIGITAL W CAD W WILBERT BILATERAL DIGITAL SCREENING MAMMOGRAM 3D/2D WITH CAD WITH MEDIOLATERAL OBLIQUE CRANIOCAUDAL: 08/14/2022 The study was acquired using digital technology and interpreted from soft copy. Current study was also evaluated with ArlettieD version 7.2. 2D digital mammographic views, as well as 3D digital tomosynthesis were performed in the CC and MLO projections. CLINICAL: Routine screening. Patient has no complaints. No personal history of cancer. Paternal aunt had breast cancer. COMPARISONS: Comparison is made to exams dated: 11/04/2020, 09/13/2020, and 03/14/2019 [facility]. BREAST TISSUE:The tissue of both breasts [...] exam. Electronically signed by: Mounika vidales/jenna:08/17/2022 14:00:18 Associate Store Director(s): RT Chris(R)(M), [facility] letter sent: Normal Exam Reading location: [place] BI-RADS: 1 Negative us Veronika Orantes APRN, DOUGLAS IMG MAMMO ORDERABLES Kaylin l Result documented in this encounter Visit Diagnoses Diagnosis Visit for screening mammogram Other screening mammogram documented in this encounter Additional Health Concerns Assessment Noted Time PHQ-9 Depression Total Score: 13 020 2:00 PM CDT documented as of this encounter Care Teams Horseradish Grinder Relationship Specialty Start Date End Date Amaya Kowalski, DUPLICATING MACHINE OPERATOR, FREIGHT FORWARDER [address] [place] [address] PCP - General Advanced Practice Nurse 06/10/18 documented as of this encounter
--- OUTSIDE RECORDS SUMMARY | 2024-11-30 18:09 | XMS_ITS | Encounter Summary ---
Author Organization [employer] Care Team Providers Care Finish Photographer Name Role Phone Amaya Kowalski APRN, SOLAR PHOTOVOLTAIC CREW LEAD Primary Care Provider Encounter Details Date Type [...] 03/21/2025 4:30 PM CDT Office Visit [facility] - Primary Care - [place] [address] [place] [address] Shravan Burgos, PAC [address] [place] [address] documented as of this encounter Goals Goal Patient Goal Type Associated Problems Recent Progress Patient-Stated? Author [facility] On track(2019 9:50 AM CDT) [...] documented as of this encounter Care Teams Finish Photographer Relationship Specialty Start Date End Date Amaya Kowalski, STEM ROLLER, SOLAR PHOTOVOLTAIC CREW LEAD [address] [place] [address] PCP - General Advanced Practice Nurse 06/10/18 documented as of this encounter
--- OUTSIDE RECORDS SUMMARY | 2024-11-30 18:09 | XMS_ITS | Encounter Summary ---
Author Organization [employer] Care Team Providers Care Multimedia Programmer Name Role Phone Amaya Kowalski APRN, SHUTTLE FITTING SUPERVISOR Primary Care Provider Encounter Details Date [...] Visit [facility] - Primary Care - [place] [address] [place] [address] Shravan Burgos, PAC [address] [place] [address] documented as of this encounter Goals Goal Patient Goal Type Associated Problems Recent Progress Patient-Stated? Author [facility] Health On track(2019 9:50 AM CDT) [...] and past) that trigger mood concerns. Behavioral [facility] Behavioral Health On track(2019 9:50 [...] documented as of this encounter Care Teams Multimedia Programmer Relationship Specialty Start Date End Date Amaya Kowalski, ROCK CUTTER, SHUTTLE FITTING SUPERVISOR [address] [place] [address] PCP - General Advanced Practice Nurse 06/10/18 documented as of this encounter
--- OUTSIDE RECORDS SUMMARY | 2024-11-30 18:09 | XMS_ITS | Encounter Summary ---
Author Organization [facility] Address [address] [place] [address] Phone Care Team Providers Care Test Deskman Name Role Phone Amaya Kowalski APRN, CNP Primary Care Provider Reason for Visit * Reason Comments Medication Refill Encounter Details Date Type Department Care Team ([facility] st Contact Info) Description 08/18/2022 Refill [facility] - Primary Care - [place] [address] [place] [address] Amaya Kowalski APRN, SLAT BASKET MAKER [address] [place] [address] Medication Refill Social History Tobacco [...] APRN, CNP - 08/18/2022 2:19 PM CDT [place] Prescription Monitoring Site reviewed. * Telephone Encounter [...] Dept 08/12/22 Office Visit Sravani Ramsay MD [facility] Showing recent visits within past 365 days and meeting all other requirements Future Appointments No visits were found meeting these conditions. Showing future appointments within next 90 days and meeting all other requirements documented in this encounter Plan of Treatment Upcoming Encounters Date Type Department Care Team (Late st Contact Info) Description 03/21/2025 4:30 PM CDT Office Visit [facility] - Primary Care - [place] [address] [place] [address] Shravan Burgos, PAPI [address] [place] [address] documented as of this encounter Goals Goal Patient Goal Type Associated Problems Recent Progress Patient-Stated? Author Behavioral [facility] Behavioral Health On track(2019 [...] documented as of this encounter Care Teams Test Deskman Relationship Specialty Start Date End Date Amaya Kowalski, CLASSROOM TEACHER, SLAT BASKET MAKER [address] [place] [address] PCP - General Advanced Practice Nurse 06/10/18 documented as of this encounter
--- OUTSIDE RECORDS SUMMARY | 2024-11-30 18:09 | XMS_ITS | Encounter Summary ---
Author Organization [facility] Address [address] [place] [address] Phone Care Team Providers Care Cigar Tobacco Processing Supervisor Name Role Phone Amaya Kowalski APRN, DOUGLAS Primary Care Provider Reason for Visit * Reason Onset Date Comments Appointment 09/16/2022 Encounter Details Date Type Department Care Team ([facility] Contact Info) Description 09/16/2022 Telephone [facility] at [facility] [address] [place] [address] Jamie Dhaliwal, [facility] Appointment Social History Tobacco Use Types [...] CDT Office Visit [facility] - Primary Care - [place] [address] [place] [address] Shravan Burgos PAC [address] [place] [address] documented as of this encounter [...] On track(2019 9:50 AM CDT) Eloise Mix DENTAL APPLIANCE FIXER Note: Irma will engage in a plan [...] documented as of this encounter Care Teams Cigar Tobacco Processing Supervisor Relationship Specialty Start Date End Date Amaya Kowalski APRN, LAP POLISHER [address] [place] [address] PCP - General Advanced Practice Nurse 06/10/18 documented as of this encounter
--- OUTSIDE RECORDS SUMMARY | 2024-11-30 18:09 | XMS_ITS | Encounter Summary ---
Author Organization [facility] Address [address] [place] [address] Phone Care Team Providers Care Bindery Machine Feeder Offbearer Name Role Phone Amaya Kowalski APRN, CNP Primary Care Provider Reason for Visit * Reason Onset Date Comments Advice Only 08/12/2022 Blood in stools Encounter Details Date Type Department Care Team (Late st Contact Info) Description 08/12/2022 Nurse Triage [facility] - Primary Care - [place] [address] [place] [address] Amaya Kowalski APRN, CNP [address] [place] [address] Advice Only (Blood in stools) [...] Dept Phone 08/12/2022 4:00 PM Sravani Ramsay [facility] - Family Medicine [facility] [phone] 08/14/2022 5:45 PM [id number] [phone] 08/17/2022 4:00 PM Jo Florian [facility] Rehab at [facility] [phone] Allergies, medications, and pharmacy verified. Assisted services [...] or toilet water turnsred) Protocols used: RECTAL [id number]-MR * Telephone Encounter - Leona Rodas RN - 08/12/2022 8:15 AM CDT [employer] message sent to patient. * Telephone Encounter [...] longer seeing the blood as of yesterday cloth finishing range tender. Please let me know what I should do!! documented in this encounter Plan of Treatment Upcoming Encounters Date Type Department Care Team (Late st Contact Info) Description 03/21/2025 4:30 PM CDT Office Visit [facility] - Primary Care - [place] [address] [place] [address] Shravan Burgos PAC [address] [place] [address] documented as of this encounter [...] a change Department associated with goal: [facility] BEHAVIORAL HEALTH SERVICES Steps to [...] track(2019 9:50 AM CDT) No Eloise Jenkins, [facility] Note: Irma will engage in a plan of action to improve emotional and mental wellbeing. Goal Reviewed with: patient Readiness to change: Not yet ready to make a change Department associated with goal: [facility] BEHAVIORAL HEALTH SERVICES Steps to [...] documented as of this encounter Care Teams Bindery Machine Feeder Offbearer Relationship Specialty Start Date End Date Amaya Kowalski, ENGRAVER MACHINE, EMS INSTRUCTOR [address] [place] [address] PCP - General Advanced Practice Nurse 06/10/18 documented as of this encounter
--- OUTSIDE RECORDS SUMMARY | 2024-11-30 18:09 | XMS_ITS | Encounter Summary ---
Author Organization [employer] Care Team Providers Care Training Executive Name Role Phone Amaya Kowalski APRN, PROGRAM SCHEDULER Primary Care Provider Encounter Details Date Type [...] Description 03/21/2025 4:30 PM CDT Office Visit [facility] - Primary Care - [place] [address] [place] [address] Shravan Burgos, PAC [address] [place] [address] documented as of this encounter Goals Goal Patient Goal Type Associated Problems Recent Progress Patient-Stated? Author [facility] Health On track(2019 9:50 AM [...] past) that trigger mood concerns. Behavioral [facility] On track(2019 9:50 AM CDT) [...] as of this encounter Care Teams Training Executive Relationship Specialty Start Date End Date Amaya Kowalski, PRODUCTION SUPPORT SUPERVISOR, PROGRAM SCHEDULER [address] [place] [address] PCP - General Advanced Practice Nurse 06/10/18 documented as of this encounter
--- OUTSIDE RECORDS SUMMARY | 2024-11-30 18:09 | XMS_ITS | Encounter Summary ---
Author Organization [facility] Address [address] [place] [address] Phone Care Team Providers Care Marketing Specialist Name Role Phone Amaya Kowalski APRN, ROOF MECHANIC Primary Care Provider Encounter Details Date Type Department Care Team (Late st Contact Info) Description 08/31/2022 4:15 PM CDT Physical Therapy 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 ?? All charges entered [...] relief, soft tissue extensibility and joint mobility (42852) - Therapeutic exercise program for: motion/mobility, strengthening, flexibility, and functional limitations (49230) - Therapeutic activities for functional activity education/training, and in home safety recommendations as appropriate (43979) - Neuro Muscular Re-education for body mechanics education and postural re- education as appropriate(41971) - Gait training (36360) - Patient education regarding posture, ergonomics, body mechanics, HEP progression and exercise performance - Individualized home exercise program - Modalities as needed for pain relief, anti-inflammatory effect and soft tissue extensibility - Mechanical traction (78596) - Trigger point dry needling for pain [...] Description 03/21/2025 4:30 PM CDT Office Visit [facility] - Primary Care - [place] [address] [place] [address] Shravan Burgos, PAPI [address] [place] [address] documented as of this encounter [...] documented as of this encounter Care Teams Marketing Specialist Relationship Specialty Start Date End Date Amaya Kowalski, SECOND COOK AND BAKER, ROOF MECHANIC [address] [place] [address] PCP - General Advanced Practice Nurse 06/10/18 documented as of this encounter
--- OUTSIDE RECORDS SUMMARY | 2024-11-30 18:09 | XMS_ITS | Encounter Summary ---
Author Organization [facility] Address [address] [place] [address] Phone Care Team Providers Care Combat Engineer Name Role Phone Amaya Kowalski APRN, VOLUNTEER RECRUITMENT COORDINATOR Primary Care Provider Reason for Visit * Reason Onset Date Comments cancelled due to work 09/14/2022 Encounter Details Date Type Department Care Team (Late st Contact Info) Description 09/14/[address] [facility] at [facility] [address] [place] [address] Jo Florian, PT [place] cancelled [...] Visit [facility] - Primary Care - [place] [address] [place] [address] Shravan Burgos PAC [address] [place] [address] documented as of this encounter Goals Goal Patient Goal Type Associated Problems Recent Progress Patient-Stated? Author Behavioral Health Behavioral Health On track(2019 9:50 AM CDT) Yes Eloise Jenkins, [facility] Note: Irma reported her goal for psychotherapy [...] documented as of this encounter Care Teams Combat Engineer Relationship Specialty Start Date End Date Amaya Kowalski APRN, VOLUNTEER RECRUITMENT COORDINATOR [address] [place] [address] PCP - General Advanced Practice Nurse 06/10/18 documented as of this encounter
--- OUTSIDE RECORDS SUMMARY | 2024-11-30 18:09 | XMS_ITS | Encounter Summary ---
Author Organization [facility] Address [address] [place] [address] Phone Care Team Providers Care Equipment Maintenance Tech Name Role Phone Amaya Kowalski APRN, DOUGLAS Primary Care Provider Sravani Ramsay MD Primary Care Provider [phone] Arnold Roberts MD Unavailable Reason for Visit * Reason Comments Medication Refill Encounter Details Date Type Department Care Team (Late st Contact Info) Description 09/17/2022 Refill [facility] - Primary Care - [place] [address] [place] [address] Amaya Kowalski APRN, CLIP BOLTER AND WRAPPER [address] [place] [address] Medication Refill Social History Tobacco [...] on: 10/18/2023 07:04 AM Modules accepted: Orders TRONIC GLUER * Addendum Note - Mohini Aguirre RN - 09/18/2022 9:18 AM CDTAddended by: MOHINI AGUIRRE on: 09/18/2022 09:18 AM Modules accepted: Orders * Telephone Encounter - Mohini Aguirre RN - 09/18/2022 9:16 AM CDT Per PCP patient needs UDS. Written Rx in lab at [place] for fiber picker. Patient phoned to inform that prescription is ready for fiber picker. No answer. Left voicemail. * Telephone Encounter - Amaya Kowalski APRN, CNP - 09/18/2022 7:51 AM CDT [place] Prescription Monitoring Site reviewed. * Telephone Encounter [...] Dept 08/12/22 Office Visit Sravani Ramsay MD [facility] Showing recent visits within past 365 days and meeting all other requirements Future Appointments No visits were found meeting these conditions. Showing future appointments within next 90 days and meeting all other requirements documented in this encounter Plan of Treatment Upcoming Encounters Date Type Department Care Team (Late st Contact Info) Description 03/21/2025 4:30 PM CDT Office Visit [facility] - Primary Care - [place] [address] [place] [address] Shravan Burgos PAC [address] [place] [address] documented as of this encounter Goals Goal Patient Goal Type Associated Problems Recent Progress Patient-Stated? Author Behavioral Health Behavioral Health On track(2019 9:50 AM CDT) Yes Eloise Jenkins, ROSS CARRIER DRIVER Note: Irma reported her goal for psychotherapy is to help me be able to deal with things in the present and in her past that are contributing to low and anxious mood. Goal Reviewed with: patient Readiness to change: Thinking about making a change Department associated with goal: [facility] BEHAVIORAL HEALTH SERVICES Steps to achieve [...] track(2019 9:50 AM CDT) No Eloise Jenkins ROSS CARRIER DRIVER Note: Irma will engage in a plan of action to improve emotional and mental wellbeing. Goal Reviewed with: patient Readiness to change: Not yet ready to make a change Department associated with goal: [facility] Steps to achieve [...] - 19 11/26/2022 11/26/2022 11/26/2022 4:47 PM ELECTRONIC GLUER COVID - 19 11/26/2022 11/26/2022 12/06/2022 12:1 9 AM ELECTRONIC GLUER Assessment Noted Time PHQ-9 Depression Total Score: 13 020 2:00 PM CDT documented as of this encounter Care Teams Equipment Maintenance Tech Relationship Specialty Start Date End Date Amaya Kowalski, SAMPLE GRINDER, CLIP BOLTER AND WRAPPER [address] [place] [address] PCP - General Advanced Practice Nurse 06/10/18 04/22/23 Sravani Ramsay MD [address] [place] [address] PCP - General Family Medicine 04/23/23 12/30/23 Arnold Roberts MD [address] [place] [address] Consulting Physician Pulmonary Disease 07/26/23 documented as of this encounter
--- OUTSIDE RECORDS SUMMARY | 2024-11-30 18:09 | XMS_ITS | Encounter Summary ---
Author Organization [facility] Address [address] [place] [address] Phone Care Team Providers Care It Support Consultant Name Role Phone Amaya Kowalski APRN, TETRYL NITRATOR OPERATOR Primary Care Provider Reason for Visit * Reason Onset Date Comments cancelled due to work 08/27/2022 Encounter Details Date Type Department Care Team (Late st Contact Info) Description 08/27/2022 Telephone [facility] at [facility] [address] [place] [address] Jo Florian, PT [place] cancelled [...] 4:30 PM CDT Office Visit [facility] - Primary Care - [place] [address] [place] [address] Shravan Burgos PAC [address] [place] [address] documented as of this encounter [...] documented as of this encounter Care Teams It Support Consultant Relationship Specialty Start Date End Date Amaya Kowalski APRN, TETRYL NITRATOR OPERATOR [address] [place] [address] PCP - General Advanced Practice Nurse 06/10/18 documented as of this encounter
--- OUTSIDE RECORDS SUMMARY | 2024-11-30 18:09 | XMS_ITS | Encounter Summary ---
Author Organization [employer] Care Team Providers Care Clinical Services Manager Name Role Phone Amaya Kowalski APRN, MANAGER RETAIL Primary Care Provider Encounter Details Date Type [...] 4:30 PM CDT [facility] Visit [facility] - Primary Care - [place] [address] [place] [address] Shravan Burgos, PAC [address] [place] [address] documented as of this encounter Goals Goal Patient Goal Type Associated Problems Recent Progress Patient-Stated? Author [facility] On track(2019 9:50 AM CDT) Yes Eloise Jenkins LCPC Note: Irma reported her goal for psychotherapy is to help me be able to deal with things in the present and in her past that are contributing to low and anxious mood. Goal Reviewed with: patient Readiness to change: Thinking about making a change Department associated with goal: [facility] BE[facility]AVIORAL HEALTH SERVICES Steps to achieve [...] and past) that trigger mood concerns. Behavioral [facility] Behavioral Health On track(2019 9:50 AM CDT) No Eloise Jenkins LCPC Note: Irma will engage in a plan of action to improve emotional and mental wellbeing. Goal Reviewed with: patient Readiness to change: Not yet ready to make a change Department associated with goal: [facility] Steps to achieve [...] documented as of this encounter Care Teams Clinical Services Manager Relationship Specialty Start Date End Date Amaya Kowalski, HOMEBOUND TEACHER, MANAGER RETAIL [address] [place] [address] PCP - General Advanced Practice Nurse 06/10/18 documented as of this encounter
--- OUTSIDE RECORDS SUMMARY | 2024-11-30 18:09 | XMS_ITS | Encounter Summary ---
Author Organization [employer] Care Team Providers Care Loan Servicing Specialist Name Role Phone Amaya Kowalski APRN, NEW HOME SALES CONSULTANT Primary Care Provider Encounter Details Date Type [...] 03/21/2025 4:30 PM CDT Office Visit [facility] - Primary Care - [place] [address] [place] [address] Shravan Burgos, PAC [address] [place] [address] documented as of this encounter Goals Goal Patient Goal Type Associated Problems Recent Progress Patient-Stated? Author [facility] Health On track(2019 9:50 [...] that trigger mood concerns. Behavioral [facility] Behavioral Health [...] documented as of this encounter Care Teams Loan Servicing Specialist Relationship Specialty Start Date End Date Amaya Kowalski, MOTOR AND CHASSIS INSPECTOR, NEW HOME SALES CONSULTANT [address] [place] [address] PCP - General Advanced Practice Nurse 06/10/18 documented as of this encounter
--- OUTSIDE RECORDS SUMMARY | 2024-11-30 18:09 | XMS_ITS | Encounter Summary ---
Author Organization [facility] Address [address] [facility] [place] [address] Phone Care Team Providers Care Back Tender Cloth Printing Name Role Phone Amaya Kowalski APRN, CNP Primary Care Provider Reason for Visit * PT/OT/ST (Routine) - Closed Specialty Diagnoses / Procedures Referred By Claudio t Referred To Contact Rehabilitation Diagnoses Low back pain, unspecified Veronika Orantes APRN, ENTRY LEVEL STAFF ACCOUNTANT [address] [place] [address] Phone: tel: fax: [facility] [address], [address] [address] Phone: tel: fax: Referral ID Status Reason Start Date Expiration Date Visits Re quested Visits Authorized [id number] Closed 1 1 Encounter Details Date Type Department Care Team (Late st Contact Info) Description 08/17/2022 4:00 PM CDT Physical Therapy [facility] [address], [address] [place] [address] Veronika Orantes APRN, ENTRY LEVEL STAFF ACCOUNTANT [address] [place] [address] Jo Florian, PT [place] Back [...] relaxing on her couch, with legs crossed cayman islander style Patient is Left side dominant. 24 [...] Preferred learning style: hands-on - Preferred language: Turkish - Basket Hand Braider needed: No Written attendance policy reviewed: Yes [...] Medical Diagnosis: Low back pain, unspecified Irma Seyomur is a 42 y.o. patient referred to [...] relief, soft tissue extensibility and joint mobility (79017) - Therapeutic exercise program for: motion/mobility, strengthening, flexibility, and functional limitations (64741) - Therapeutic activities for functional activity education/training, and in home safety recommendations as appropriate (65869) - Neuro Muscular Re-education for body mechanics education and postural re- education as appropriate(71657) - Gait training (47185) - Patient education regarding posture, ergonomics, body mechanics, HEP progression and exercise performance - Individualized home exercise program - Modalities as needed for pain relief, anti-inflammatory effect and soft tissue extensibility - Mechanical traction (20161) - Trigger point dry needling for pain relief and reducing tension in associated musculature (95553 or [address]) Precautions: none noted at this time. . [...] Description 03/21/2025 4:30 PM CDT Office Visit [facility] - Primary Care - [place] [address] [place] [address] Shravan Burgos PAC [address] [place] [address] documented as of [...] documented as of this encounter Care Teams Back Tender Cloth Printing Relationship Specialty Start Date End Date Amaya Kowalski, OCULAR PATHOLOGIST, ENTRY LEVEL STAFF ACCOUNTANT [address] [place] [address] PCP - General Advanced Practice Nurse 06/10/18 documented as of this encounter
--- OUTSIDE RECORDS SUMMARY | 2024-11-30 18:09 | XMS_ITS | Encounter Summary ---
Author Organization [facility] Address [address] [place] [address] Phone Care Team Providers Care Latent Print Examiner Name Role Phone Amaya Kowalski APRN, FIBER DESIGN ENGINEER Primary Care Provider Encounter Details Date Type Department Care Team (Late st Contact Info) Description 08/24/2022 4:15 PM CDT [facility] [address], [address] [place] [address] Veronika Orantes APRN, FIBER DESIGN ENGINEER [address] [facility] [facility] [address] [place] [address] Jo Florian, PT [place] Discharge Disposition: Discharged [...] Home Exercises distributed via: handout Access Code: [email or web address] URL: [email or web address] Date: 08/24/2022 Prepared by: Jo Florian Exercises [...] is 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 ?? All charges entered [...] relief, soft tissue extensibility and joint mobility (48483) - Therapeutic exercise program for: motion/mobility, strengthening, flexibility, and functional limitations (87115) - Therapeutic activities for functional activity education/training, and in home safety recommendations as appropriate (56456) - Neuro Muscular Re-education for body mechanics education and postural re- education as appropriate(93906) - Gait training (48245) - Patient education regarding posture, ergonomics, body mechanics, HEP progression and exercise performance - Individualized home exercise program - Modalities as needed for pain relief, anti-inflammatory effect and soft tissue extensibility - Mechanical traction (90515) - Trigger point dry needling for pain [...] PM CDT Office Visit [facility] - Primary Care - [place] [address] [place] [address] Shravan Burgos, PAPI [address] [place] [address] documented as of this encounter [...] and past) that trigger mood concerns. Behavioral [facility] Behavioral [...] documented as of this encounter Care Teams Latent Print Examiner Relationship Specialty Start Date End Date Amaya Kowalski, CORE DROPPER, FIBER DESIGN ENGINEER [address] [place] [address] PCP - General Advanced Practice Nurse 06/10/18 documented as of this encounter
--- OUTSIDE RECORDS SUMMARY | 2024-11-30 18:09 | XMS_ITS | Encounter Summary ---
Author Organization [facility] Address [address] [place] [address] Phone Care Team Providers Care Automobile Parker Name Role Phone Amaya Kowalski APRN, CNP Primary Care Provider Sravani Ramsay MD Primary Care Provider [phone] Arnold Roberts MD Unavailable Reason for Visit [...] Description 08/12/2022 4:00 PM CDT Office [facility] - Primary Care - [place] [address] [place] [address] Sravani Ramsay MD [address] [place], [place] [id number] Bloody diarrhea (Primary Dx); Tobacco use disorder [...] Description 03/21/2025 4:30 PM CDT [facility] [place] [address] [place] [address] Shravan Burgos, PAPI [address] [place] [address] documented as of this encounter Goals Goal Patient Goal Type Associated Problems Recent Progress Patient-Stated? Author Behavioral [facility] Behavioral Health On track(2019 9:50 AM CDT) [...] and past) that trigger mood concerns. Behavioral [facility] Behavioral Health On track(2019 9:50 AM CDT) [...] - 19 11/26/2022 11/26/2022 11/26/2022 4:47 PM NUMERICAL CONTROL OPERATOR COVID - 19 11/26/2022 11/26/2022 12/06/2022 12:1 9 AM NUMERICAL CONTROL OPERATOR Assessment Noted Time PHQ-9 Depression Total Score: 13 020 2:00 PM CDT documented as of this encounter Care Teams Automobile Parker Relationship Specialty Start Date End Date Amaya Kowalski, SPEECH AND LANGUAGE CLINICIAN, PUNCH OUT CREW MEMBER [address] [place] [address] PCP - General Advanced Practice Nurse 06/10/18 04/22/23 Sravani Ramsay MD [address] [place] [address] PCP - General Family Medicine 04/23/23 12/30/23 Arnold Roberts MD [address] [place] [address] Consulting Physician Pulmonary Disease 07/26/23 documented as of this encounter
--- OUTSIDE RECORDS SUMMARY | 2024-11-30 18:09 | XMS_ITS | Encounter Summary ---
Author Organization [facility] Address [address] [place] [address] Phone Care Team Providers Care Instructor Wastewater Treatment Plant Name Role Phone Amaya Kowalski APRN, DOUGLAS Primary Care Provider Reason for Visit * Reason Onset Date Comments Appointment 09/09/2022 Cancelled for Encounter Details Date Type Department Care Team (Late st Contact Info) Description 09/10/[address] [facility] [address] [place] [address] Jamie Dhaliwal, [facility] Appointment (Cancelled for 09/09/22) Social History Tobacco [...] Primary Care - [place] [address] [place] [address] Srhavan Burgos PAC [address] [place] [address] documented as of this encounter [...] as of this encounter Care Teams Instructor Wastewater Treatment Plant Relationship Specialty Start Date End Date Amaya Kowalski APRN, CASE MANAGEMENT ASSOCIATE [address] [place] [address] PCP - General Advanced Practice Nurse 06/10/18 documented as of this encounter
--- OUTSIDE RECORDS SUMMARY | 2024-11-30 18:10 | XMS_ITS | Encounter Summary ---
Author Organization [facility] Address [address] [place] [address] Phone Care Team Providers Care Medical Data Entry Clerk Name Role Phone Amaya Kowalski APRN, CNP Primary Care Provider Reason for Visit * Reason Onset Date Comments Results 06/16/2022 Urine drug scree n Encounter Details Date Type Department Care Team ([facility] Contact Info) Description 06/16/2022 Telephone [facility] - Primary Care - [place] [address] [place] [address] Amaya Kowalski APRN, CNP [address] [place] [address] Results (Urine drug screen) Social [...] CDT Urine drug screen results received from [employer]. Placed in PCP inbox for review. documented in this encounter Plan of Treatment Upcoming Encounters Date Type Department Care Team (Late st Contact Info) Description 03/21/2025 4:30 PM CDT Office Visit [facility] - Primary Care - [place] [address] [place] [address] Shravan Burgos PAC [address] [place] [address] documented as [...] as of this encounter Care Teams Medical Data Entry Clerk Relationship Specialty Start Date End Date Amaya Kowalski, PULP GRINDER FEEDER, SHOWER DOORS AND PANELS FABRICATOR [address] [place] [address] PCP - General Advanced Practice Nurse 06/10/18 documented as of this encounter
--- OUTSIDE RECORDS SUMMARY | 2024-11-30 18:10 | XMS_ITS | Encounter Summary ---
Author Organization [facility] Address [address] [place] [address] Phone Care Team Providers Care Senior Oracle Dba Name Role Phone Amaya Kowalski APRN, CNP Primary Care Provider Reason for Visit * Reason Onset Date Comments Form Completion 06/03/2021 [facility] Medical Repo rt Encounter Details Date Type Department Care Team (Late st Contact Info) Description 06/03/2021 Telephone [facility] - Primary Care - [place] [address] [place] [address] Amaya Kowalski APRN, CNP [address] [place] [address] Form Completion ([facility] Medical Report) [...] as of this encounter Care Teams Senior Oracle Dba Relationship Specialty Start Date End Date Amaya Kowalski, [employer] OFFICER, PLANNING FEEDER [address] [place] [address] PCP - General Advanced Practice Nurse 06/10/18 documented as of this encounter
--- OUTSIDE RECORDS SUMMARY | 2024-11-30 18:10 | XMS_ITS | Encounter Summary ---
Author Organization [employer] Care Team Providers Care Youth Manager Name Role Phone Amaya Kowalski APRN, FUNDS DEVELOPMENT DIRECTOR Primary Care Provider Encounter Details Date [...] COVID-19? No / Unsure 01/02/2021 8:55 AM HOOP RIVETER documented as of this encounter Plan of [...] Type Associated Problems Recent Progress Patient-Stated? Author [facility] Health On track(2019 9:50 AM [...] past) that trigger mood concerns. Behavioral [facility] Behavioral Health On track(2019 9:50 AM [...] documented as of this encounter Care Teams Youth Manager Relationship Specialty Start Date End Date Amaya Kowalski APRN, FUNDS DEVELOPMENT DIRECTOR [address] [place] [address] PCP - General Advanced Practice Nurse 06/10/18 documented as of this encounter
--- OUTSIDE RECORDS SUMMARY | 2024-11-30 18:10 | XMS_ITS | Encounter Summary ---
Author Organization [facility] Address [address] [place] [address] Phone Care Team Providers Care Hoop Expander Name Role Phone Amaya Kowalski APRN, DOUGLAS Primary Care Provider Encounter Details Date Type Department Care Team ([facility] st Contact Info) Description 03/27/2022 3:20 PM CDT Lab [facility] - Primary Care - [address] [phone] Lab, [facility] Discharge Disposition: Discharged to home or Selfcare [...] [facility] [place] - Primary Care - [place] [address] [place] [address] Shravan Burgos PAC [address] [place] [address] documented as of this encounter [...] making a change Department associated with goal: [facility] Steps to [...] track(2019 9:50 AM CDT) No Eloise Jenkins, PLANT BIOLOGY PROFESSOR Note: Irma will engage in a plan of action to improve emotional and mental wellbeing. Goal Reviewed with: patient Readiness to change: Not yet ready to make a change Department associated with goal: [facility] Steps to [...] documented as of this encounter Care Teams Hoop Expander Relationship Specialty Start Date End Date Amaya Kowalski, LONG DISTANCE BILLING OPERATOR, CART ATTENDANT [address] [place] [address] PCP - General Advanced Practice Nurse 06/10/18 documented as of this encounter
--- OUTSIDE RECORDS SUMMARY | 2024-11-30 18:10 | XMS_ITS | Encounter Summary ---
Author Organization [facility] Address [address] [place] [address] Phone Care Team Providers Care Transition Teacher Name Role Phone Amaya Kowalski APRN, DOUGLAS Primary Care Provider Reason for Visit * Reason Onset Date Comments Medication Refill 09/16/2021 Encounter Details Date Type Department Care Team (Late st Contact Info) Description 09/16/2021 Refill [facility] [address] [place] [address] Amaya Kowalski APRN, SCANNING SUPERVISOR [address] [place] [address] Medication Refill Social History Tobacco Use Types [...] APN, CNP - 09/17/2021 8:51 AM CDT [place] Prescription Monitoring Site reviewed. Medication approved. * [...] location, unspecified back pain laterality, unspecified chronicity [facility] Amaya Kowalski APN, DOUGLAS 1 year ago Injury of left foot, initial encounter [facility] Amaya Kowalski APN, DOUGLAS 1 year ago Moderate episode of recurrent major depressive disorder (HCC) [facility] - Amaya Ydoer APN, DOUGLAS 2 years ago Anxiety [facility] - Amaya Yoder APN, CNP 2 years ago Chronic bronchitis with productive mucopurulent cough (HCC) [facility] [place] [facility] Upcoming Appointments SUPERVISOR SAWMILL - Recent and Past Visits Recent Visits Date Type Provider Dept 08/08/21 Office Visit Amaya Kowalski APN, DOUGLAS [facility] 07/26/20 Office Visit Amaya Kowalski APN SCANNING SUPERVISOR [facility] [address] Showing recent visits within past 460 [...] Visit [facility] - Primary Care - [place] [address] [place] [address] Shravan Burgos PAC [address] [place] [address] documented as of this encounter [...] documented as of this encounter Care Teams Transition Teacher Relationship Specialty Start Date End Date Amaya Kowalski, QUALITY COMPLIANCE CONSULTANT, SCANNING SUPERVISOR [address] [place] [address] PCP - General Advanced Practice Nurse 06/10/18 documented as of this encounter
--- OUTSIDE RECORDS SUMMARY | 2024-11-30 18:10 | XMS_ITS | Encounter Summary ---
Author Organization [facility] Address [address] [place] [address] Phone Care Team Providers Care Microsoft Crm Developer Name Role Phone Amaya Kowalski APRN, CNP Primary Care Provider Reason for Visit * Reason Comments Medication Refill Encounter Details Date Type Department Care Team ([facility] st Contact Info) Description 03/14/2021 Refill [facility] - Primary Care - [place] [address] [place] [address] Amaya Kowalski APRN, RECREATION AIDE [address] [place] [address] Medication Refill Social History Tobacco [...] APN, CNP - 03/14/2021 1:03 PM CDT [place] prescription monitoring site reviewed. Medication approved. * [...] ago Injury of left foot, initial encounter [facility] Amaya Kowalski APN, DOUGLAS 11 months ago Moderate episode of recurrent major depressive disorder (HCC) [facility] Am[facility] Yoder APN, RECREATION AIDE 1 year ago [facility] Yoder APN, DOUGLAS 2 years ago Chronic bronchitis with productive mucopurulent cough (HCC) [facility] [place] Conde PAC 2 years ago Chronic bronchitis, unspecified chronic bronchitis type (HCC) [facility] - Amaya Yoder APN, RECREATION AIDE Upcoming Appointments SUPERINTENDENT WAREHOUSE - Recent and Past Visits Recent Visits Date Type Provider Dept 07/26/20 Office Visit Amaya [facility]alski APN, CNP [facility]20 [facility] Visit Am[facility]als[facility] APN, CNP [facility] Show[facility] recent visits within past 460 days [...] ago Injury of left foot, initial encounter [facility] Amaya Kowalski APN, CNP 11 months ago Moderate episode of recurrent major depressive disorder (HCC) [facility] - Amaya Yoder APN, CNP 1 year ago Anxiety [facility] - Amaya Yoder APN, DOUGLAS 2 years ago Chronic bronchitis with productive mucopurulent cough (HCC) [facility] - Fox Conde PAC 2 years ago Chronic bronchitis, unspecified chronic bronchitis type (HCC) [facility] [place] Tobias APN, DOUGLAS Upcoming Appointments SUPERINTENDENT WAREHOUSE - Recent and Past Visits Recent Visits Date Type Provider Dept 07/26/20 Office Visit Amaya Kowalski APN, CNP [facility] [place] [facility] 04/05/20 Office Visit Amaya Kowalski APN, [...] [facility] - Primary Care - [place] [address] [place] [address] Shravan Burgos PAC [address] [place] [address] documented as of this encounter Goals Goal Patient Goal Type Associated Problems Recent Progress Patient-Stated? Author [facility] Behavioral Health On track(2019 9:50 AM [...] as of this encounter Care Teams Microsoft Crm Developer Relationship Specialty Start Date End Date Amaya Kowalski, WAXED BAG MACHINE OPERATOR, RECREATION AIDE [address] [place] [address] PCP - General Advanced Practice Nurse 06/10/18 documented as of this encounter
--- OUTSIDE RECORDS SUMMARY | 2024-11-30 18:10 | XMS_ITS | Encounter Summary ---
Author Organization [employer] Care Team Providers Care Procedure Analyst Name Role Phone Amaya Kowalski APRN, ENVIRONMENTAL EMERGENCIES ASSISTANT Primary Care Provider Encounter Details Date [...] COVID-19? No / Unsure 02/04/2021 4:02 PM OFFSET ASSISTANT PRESS OPERATOR documented as of this encounter Plan of Treatment Upcoming Encounters Date Type Department Care Team (Late st Contact Info) Description 03/21/2025 4:30 PM CDT Office Visit [facility] - Primary Care - [place] [address] [place] [address] Shravan Burgos, PAC [address] [place] [address] documented as of this encounter Goals Goal Patient Goal Type Associated Problems Recent Progress Patient-Stated? Author [facility] Health On track(2019 9:50 AM [...] that trigger mood concerns. Behavioral [facility] Behavioral Health On track(2019 9:50 [...] documented as of this encounter Care Teams Procedure Analyst Relationship Specialty Start Date End Date Amaya Kowalski APRN, ENVIRONMENTAL EMERGENCIES ASSISTANT [address] [place] [address] PCP - General Advanced Practice Nurse 06/10/18 documented as of this encounter
--- OUTSIDE RECORDS SUMMARY | 2024-11-30 18:10 | XMS_ITS | Encounter Summary ---
Author Organization [facility] Address [address] [place] [address] Phone Care Team Providers Care Career Manager Name Role Phone Amaya Kowalski APRN, DOUGLAS Primary Care Provider Encounter Details Date Type Department Care Team (Late st Contact Info) Description 12/31/2020 [facility] - [place] [address] [place] [address] Amaya Kowalski APRN, LITHOGRAPHIC GENERAL WORKER [address] [place] [address] Social History Tobacco Use Types [...] Coronavirus / COVID-19? Yes 12/05/2020 3:55 AM CORRECTIONAL CLASSIFICATION COUNSELOR documented as of this encounter Miscellaneous Notes * Telephone Encounter - Amaya Kowalski APN, CNP - 12/31/2020 8:53 AM CORRECTIONAL CLASSIFICATION COUNSELOR Ativan refilled. Patient will do frequent drug screens. ECTIONAL CLASSIFICATION COUNSELOR documented in this encounter Plan of Treatment Upcoming Encounters Date Type Department Care Team (Late st Contact Info) Description 03/21/2025 4:30 PM CDT Office Visit [facility] - Primary Care - [place] [address] [place] [address] Shravan Burgos PAC [address] [place] [address] documented as of this encounter Goals Goal Patient Goal Type Associated Problems Recent Progress Patient-Stated? Author [facility] Behavioral Health On track(2019 9:50 AM CDT) Yes Eloise Jenkins, PARACHUTE OFFICER Note: Irma reported her goal for psychotherapy [...] documented as of this encounter Care Teams Career Manager Relationship Specialty Start Date End Date Amaya Kowalski APRN, CNP [address] [place] [address] PCP - General Advanced Practice Nurse 06/10/18 documented as of this encounter
--- OUTSIDE RECORDS SUMMARY | 2024-11-30 18:10 | XMS_ITS | Encounter Summary ---
Author Organization [facility] Address [address] [place] [address] Phone Care Team Providers Care Consulting Psychiatrist Name Role Phone Amaya Kowalski APRN, CNP Primary Care Provider Reason for Visit * Reason Comments Medication Refill Encounter Details Date Type Department Care Team ([facility] st Contact Info) Description 01/08/2022 Refill [facility] - Primary Care - [place] [address] [place] [address] Amaya Kowalski APRN, VENDOR REPRESENTATIVES [address] [place] [address] Medication Refill Social History Tobacco [...] Kowalski APRN, CNP - 01/09/2022 4:08 PM DB2 DBA [place] prescription monitoring site reviewed. Medication approved. 2 DBA * Telephone Encounter - Mohini Aguirre RN - 01/08/2022 2:27 PM DB2 DBA Medication failed the protocol, provider to review [...] 08/08/21 Office Visit Amaya Kowalski APRN, CNP [facility] Showing recent visits within past 365 days and meeting all other requirements Future Appointments No visits were found meeting these conditions. Showing future appointments within next 90 days and meeting all other requirements 2 DBA documented in this encounter Plan of Treatment Upcoming Encounters Date Type Department Care Team (Late st Contact Info) Description 03/21/2025 4:30 PM CDT Office Visit [facility] - Primary Care - [place] [address] [place] [address] Shravan Burgos, PAC [address] [place] [address] documented as of this encounter Goals Goal Patient Goal Type Associated Problems Recent Progress Patient-Stated? Author [facility] On track(2019 9:50 AM [...] documented as of this encounter Care Teams Consulting Psychiatrist Relationship Specialty Start Date End Date Amaya Kowalski, BELL PERSON, VENDOR REPRESENTATIVES [address] [place] [address] PCP - General Advanced Practice Nurse 06/10/18 documented as of this encounter
--- OUTSIDE RECORDS SUMMARY | 2024-11-30 18:10 | XMS_ITS | Encounter Summary ---
Author Organization [facility] Address [address] [place] [address] Phone Care Team Providers Care Machine Scallop Cutter Name Role Phone Amaya Kowalski APRN, CNP Primary Care Provider Reason for Visit * Reason Comments Medication Refill Encounter Details Date Type Department Care Team ([facility] st Contact Info) Description 06/05/2022 Refill [facility] - Primary Care - [place] [address] [place] [address] Amaya Kowalski APRN, BROOM MAN [address] [place] [address] Medication Refill Social History Tobacco [...] inform that prescription is ready for pickle sorter. No answer. Left voicemail. Order placed for UDS. * Telephone Encounter - Amaya Kowalski APRN, CNP - 06/05/2022 8:57 AM CDT [place] Prescription Monitoring Site reviewed. Need urine drug [...] Provider Dept 08/08/21 Office Visit Amaya Kowalski, PRODUCT DEVELOPMENT MANAGER, BROOM MAN [facility] Showing recent visits within past 365 days and meeting all other requirements Future Appointments No visits were found meeting these conditions. Showing future appointments within next 90 days and meeting all other requirements documented in this encounter Plan of Treatment Upcoming Encounters Date Type Department Care Team (Late st Contact Info) Description 03/21/2025 4:30 PM CDT Office Visit [facility] - Primary Care - [place] [address] [place] [address] Shravan Burgos PAC [address] [place] [address] documented as of this encounter [...] as of this encounter Care Teams Machine Scallop Cutter Relationship Specialty Start Date End Date Amaya Kowalski, PRODUCT DEVELOPMENT MANAGER, BROOM MAN [address] [place] [address] PCP - General Advanced Practice Nurse 06/10/18 documented as of this encounter
--- OUTSIDE RECORDS SUMMARY | 2024-11-30 18:10 | XMS_ITS | Encounter Summary ---
Author Organization [facility] Address [address] [place] [address] Phone Care Team Providers Care Critical Power Install Technician Name Role Phone Amaya Kowalski APRN, CNP Primary Care Provider Reason for Visit * Reason Onset Date Comments Results 02/10/2021 Urine drug scree n Encounter Details Date Type Department Care Team ([facility] st Contact Info) Description 02/10/2021 Telephone [facility] - Primary Care - [place] [address] [place] [address] Amaya Kowalski APRN, CNP [address] [place] [address] Results (Urine drug screen) Social [...] COVID-19? No / Unsure 02/04/2021 4:02 PM FRAUD ANALYST documented as of this encounter Miscellaneous Notes * Telephone Encounter - Amaya Kowalski APN, CNP - 02/10/2021 8:49 AM CDT Drug screen shows compliance with lorazepam and nothing else. * Telephone Encounter - Mohini Aguirre RN - 02/10/2021 8:11 AM CDT Urine drug screen results received from [employer]. Placed in PCP inbox for review. documented in this encounter Plan of Treatment Upcoming Encounters Date Type Department Care Team (Late st Contact Info) Description 03/21/2025 4:30 PM CDT [facility] - Primary Care - [place] [address] [place] [address] Shravan Burgos PAC [address] [place] [address] documented as of this encounter [...] documented as of this encounter Care Teams Critical Power Install Technician Relationship Specialty Start Date End Date Amaya Kowalski, CLINICAL RESEARCH MANAGEMENT ASSOCIATE, TECHNOLOGY ANALYST [address] [place] [address] PCP - General Advanced Practice Nurse 06/10/18 documented as of this encounter
--- OUTSIDE RECORDS SUMMARY | 2024-11-30 18:10 | XMS_ITS | Encounter Summary ---
Author Organization [facility] Address [address] [place] [address] Phone Care Team Providers Care Tablet Making Machine Operator Helper Name Role Phone Amaya Kowalski APRN, CNP Primary Care Provider Reason for Visit * Reason Comments Back Pain right side of back// pain when she sneezed Encounter Details Date Type Department Care Team (Late st Contact Info) Description 08/08/2021 4:15 PM CDT Office Visit [facility] - Primary Care - [place] [address] [place] [address] Amaya Kowalski APRN, CNP [address] [place] [address] Back pain, unspecified back location, [...] cancer. To learn more ?? CDC, www.cdc.gov/tobacco/quit_smoking/, 806-SBGG-TCW (897-481-7919) ?? Smokefree.gov, www.smokefree.gov, 451-18E-LGIU (197-119-2386) ?? [place] [employer], www.lung.org/stop-smoking/, 800-LUNGUSA (150-202-7594) [employer] last reviewed this educational content on 03/29/2020 ?? 8633-7015 [employer], [employer]. All rights reserved. This information is not [...] OR COUGH 03/14/21 Yes Amaya Kowalski APN, PRODUCT BLENDING SUPERVISOR ibuprofen (MOTRIN) 200 MG Tablet Take 3 [...] Office Visit [facility] - Primary Care - [place] [address] [place] [address] Shravan Burgos PAC [address] [place] [address] documented as of this encounter [...] documented as of this encounter Care Teams Tablet Making Machine Operator Helper Relationship Specialty Start Date End Date Amaya Kowalski APRN, PRODUCT BLENDING SUPERVISOR [address] [place] [address] PCP - General Advanced Practice Nurse 06/10/18 documented as of this encounter
--- OUTSIDE RECORDS SUMMARY | 2024-11-30 18:10 | XMS_ITS | Encounter Summary ---
Author Organization [facility] Address [address] [place] [address] Phone Care Team Providers Care Editor School Photograph Name Role Phone Amaya Kowalski APRN, DENTAL COORDINATOR Primary Care Provider Reason for Visit * Reason Onset Date Comments COVID-19 07/28/2022 Encounter Details Date Type Department Care Team (Late st Contact Info) Description 07/28/2022 Nurse Triage [facility] [address] [place] [address] Amaya Kowalski, LINE RUNNER, DENTAL COORDINATOR [address] [place] [address] COVID-19 Social History Tobacco Use Types Packs/Day [...] System would not allow. Was phoned to [facility] for patient. My chart message sent to [...] calling back. Positive test today, 07/28/[address] [place] [address] Symptoms started 07/24/22 evening Wanted to update PCP She would be interested in Paxlovid if provider thinks it would be beneficial Advised of Covid isolation protocol Ok to call or [facility]. * Telephone Encounter - [...] negative advised to be seen at [facility] to be tested for flu and [...] symptoms.) Protocols used: CORONAVIRUS (COVID-19) DIAGNOSED OR [id number] documented in this encounter Plan of Treatment Upcoming Encounters Date Type Department Care Team (Late st Contact Info) Description 03/21/2025 4:30 PM CDT Office Visit [facility] - Primary Care - [place] [address] [place] [address] hSravan Burgos, PAPI [address] [place] [address] documented as of this encounter Goals Goal Patient Goal Type Associated Problems Recent Progress Patient-Stated? Author [facility] On track(2019 9:50 AM [...] and past) that trigger mood concerns. Behavioral [facility] On track(2019 9:50 [...] documented as of this encounter Care Teams Editor School Photograph Relationship Specialty Start Date End Date Amaya Kowalski, LINE RUNNER, DENTAL COORDINATOR [address] [place] [address] PCP - General Advanced Practice Nurse 06/10/18 documented as of this encounter
--- OUTSIDE RECORDS SUMMARY | 2024-11-30 18:10 | XMS_ITS | Encounter Summary ---
Author Organization [facility] Address [address] [place] [address] Phone Care Team Providers Care Smasher Name Role Phone Amaya Kowalski APRN, DOUGLAS Primary Care Provider Encounter Details Date Type Department Care Team (Late st Contact Info) Description 06/09/2022 3:30 PM CDT Lab [facility] - Primary Care - [address] [phone] Lab, [facility] Discharge Disposition: Discharged to home or Selfcare [...] Amaya Kowalski APN 06/09/2022 and Sent to [employer] documented in this encounter Plan of Treatment Upcoming Encounters Date Type Department Care Team (Late st Contact Info) Description 03/21/2025 4:30 PM CDT Office Visit [facility] - Primary Care - [place] [address] [place] [address] Shravan Burgos PAC [address] [place] [address] documented as of this encounter [...] making a change Department associated with goal: [facility] Steps [...] track(2019 9:50 AM CDT) No Eloise Jenkins, NUCLEAR SUPERVISING OPERATOR Note: Irma will engage in a plan of action to improve emotional and mental wellbeing. Goal Reviewed with: patient Readiness to change: Not yet ready to make a change Department associated with goal: [facility] Steps [...] documented as of this encounter Care Teams Smasher Relationship Specialty Start Date End Date Amaya Kowalski, BONE DRIER, GUNSMITH APPRENTICE [address] [place] [address] PCP - General Advanced Practice Nurse 06/10/18 documented as of this encounter
--- OUTSIDE RECORDS SUMMARY | 2024-11-30 18:10 | XMS_ITS | Encounter Summary ---
Author Organization [facility] Address [address] [place] [address] Phone Care Team Providers Care Service Associate Name Role Phone Amaya Kowalski APRN, CNP Primary Care Provider Reason for Visit * Reason Onset Date Comments Medication Refill 03/24/2022 Lorazepam Encounter Details Date Type Department Care Team (Late st Contact Info) Description 03/24/[address] [facility] - Primary Care - [place] [address] [place] [address] Amaya Kowalski APRN, CNP [address] [place] [address] Medication Refill (Lorazepam) Social History [...] to inform that prescription is ready for pickling drum operator. No answer. Left voicemail. * Telephone Encounter - Amaya Kowalski APRN, CNP - 03/25/2022 8:00 AM CDT [place] prescription monitoring site reviewed. Medication approved. * Telephone Encounter - Shena Romo RN - 03/24/2022 4:30 PM CDT Per [place] PDMP last fill date 01/09/22. * Telephone Encounter - Leona Rodas RN - 03/24/2022 4:26 PM CDT Received fax from [facility] requesting refill on Lorazepam 1mg tabs. Refill pended. documented in this encounter Plan of Treatment Upcoming Encounters Date Type Department Care Team (Late st Contact Info) Description 03/21/2025 4:30 PM CDT Office Visit [facility] - Primary Care - [place] [address] [place] [address] Shravan Burgos, PAPI [address] [place] [address] documented as of this encounter [...] Department associated with goal: [facility] [...] documented as of this encounter Care Teams Service Associate Relationship Specialty Start Date End Date Amaya Kowalski, CLOTH BOIL OFF MACHINE OPERATOR, GANG WORKER [address] [place] [address] PCP - General Advanced Practice Nurse 06/10/18 documented as of this encounter
--- OUTSIDE RECORDS SUMMARY | 2024-11-30 18:10 | XMS_ITS | Encounter Summary ---
Author Organization [facility] Address [address] [place] [address] Phone Care Team Providers Care Skinner Pelts Name Role Phone Amaya Kowalski APRN, DOUGLAS Primary Care Provider Encounter Details Date Type Department Care Team ([facility] Contact Info) Description 01/02/2021 11:00 AM CONTROL SYSTEM MANAGER Lab [facility] - Primary Care - [address] [phone] Lab, [facility] Discharge Disposition: Discharged to home or [...] COVID-19? No / Unsure 01/02/2021 8:55 AM CONTROL SYSTEM MANAGER documented as of this encounter Progress Notes * Cristin Tolentino RMA - 01/02/2021 11:00 AM CST Uds sent to [employer] ROL SYSTEM MANAGER documented in this encounter Plan of Treatment Upcoming Encounters Date Type Department Care Team (Late st Contact Info) Description 03/21/2025 4:30 PM CDT Office Visit [facility] - Primary Care - [place] [address] [place] [address] Shravan Burgos PAC [address] [place] [address] documented as of this encounter [...] documented as of this encounter Care Teams Skinner Pelts Relationship Specialty Start Date End Date Amaya Kowalski, ANESTHESIOLOGY RESIDENT, SHOW HORSE DRIVER [address] [place] [address] PCP - General Advanced Practice Nurse 06/10/18 documented as of this encounter
--- OUTSIDE RECORDS SUMMARY | 2024-11-30 18:10 | XMS_ITS | Encounter Summary ---
Author Organization [facility] Address [address] [place] [address] Phone Care Team Providers Care Diabetes Educator Name Role Phone Amaya Kowalski APRN, DOUGLAS Primary Care Provider Reason for Visit * Reason Comments Medication Refill Encounter Details Date Type Department Care Team ([facility] Contact Info) Description 06/18/2021 Refill [facility] - [place] [address] [place] [address] Amaya Kowalski APRN, EXCHANGE ARCHITECT [address] [place] [address] Medication Refill Social History Tobacco [...] PM CDT Office Visit [facility] - Primary Care - [place] [address] [place] [address] Shravan Burgos, PAPI [address] [place] [address] documented as of this encounter Goals Goal Patient Goal Type Associated Problems Recent Progress Patient-Stated? Author Behavioral Health Behavioral Health On track(2019 9:50 AM CDT) Yes Eloise Jenkins, [facility] Note: Irma reported her goal for [...] documented as of this encounter Care Teams Diabetes Educator Relationship Specialty Start Date End Date Amaya Kowalski, ECHOCARDIOGRAPH TECH, EXCHANGE ARCHITECT [address] [place] [address] PCP - General Advanced Practice Nurse 06/10/18 documented as of this encounter
--- OUTSIDE RECORDS SUMMARY | 2024-11-30 18:10 | XMS_ITS | Encounter Summary ---
Author Organization [facility] Address [address] [place] [address] [place] [address] Phone Care Team Providers Care Book Cutter Name Role Phone Amaya Kowalski APRN, CNP Primary Care Provider Reason for Visit * Reason Comments Medication Refill Encounter Details Date Type Department Care Team ([facility] st Contact Info) Description 02/13/2022 Refill [facility] - Primary Care - [place] [address] [place] [address] Amaya Kowalski APRN, TECHNOLOGY SALES REPRESENTATIVE [address] [place] [address] Medication Refill Social History [...] APRN, CNP - 02/17/2022 8:17 AM CDT [place] prescription monitoring site reviewed. Medication approved. * Telephone Encounter - Shena Romo RN - 02/13/2022 1:26 PM CDT Per [place] PDMP last fill date 01/09/22. documented in this encounter Plan of Treatment Upcoming Encounters Date Type Department Care Team (Late st Contact Info) Description 03/21/2025 4:30 PM CDT [facility] - Primary Care - [place] [address] [place] [address] Shravan Burgos PAC [address] [place] [address] documented as of [...] documented as of this encounter Care Teams Book Cutter Relationship Specialty Start Date End Date Amaya Kowalski, ROAD REPAIRER, TECHNOLOGY SALES REPRESENTATIVE [address] [place] [address] PCP - General Advanced Practice Nurse 06/10/18 documented as of this encounter
--- OUTSIDE RECORDS SUMMARY | 2024-11-30 18:10 | XMS_ITS | Encounter Summary ---
Author Organization [facility] Address [address] [place] [address] Phone Care Team Providers Care Manager Implementation Name Role Phone Amaya Kowalski APRN, CNP Primary Care Provider Reason for Visit * Reason Onset Date Comments Results 04/02/2022 UDS Encounter Details Date Type Department Care Team ([facility] Contact Info) Description 04/02/2022 Telephone [facility] - Primary Care - [place] [address] [place] [address] Amaya Kowalski APRN, CNP [address] [place] [address] Results (UDS) Social History Tobacco [...] Primary Care - [place] [address] [place] [address] Shravan Burgos PAC [address] [place] [address] documented as of this encounter [...] track(2019 9:50 AM CDT) No Eloise Jenkins, CERTIFICATION TECHNICIAN Note: Irma will engage in a [...] as of this encounter Care Teams Manager Implementation Relationship Specialty Start Date End Date Amaya Kowalski, PUBLISHER ASSISTANT, PAINTING CONTRACTOR [address] [place] [address] PCP - General Advanced Practice Nurse 06/10/18 documented as of this encounter
--- OUTSIDE RECORDS SUMMARY | 2024-11-30 18:10 | XMS_ITS | Encounter Summary ---
Author Organization [employer] Care Team Providers Care Rag Inspector Name Role Phone Amaya Kowalski APRN, RECRUITING CONSULTANT Primary Care Provider Encounter Details Date [...] Visit [facility] [...] past) that trigger mood concerns. Behavioral [facility] Health On track(2019 9:50 AM [...] documented as of this encounter Care Teams Rag Inspector Relationship Specialty Start Date End Date Amaya Kowalski APRN, RECRUITING CONSULTANT [address] [place] [address] PCP - General Advanced Practice Nurse 06/10/18 documented as of this encounter
--- OUTSIDE RECORDS SUMMARY | 2024-11-30 18:10 | XMS_ITS | Encounter Summary ---
Author Organization [facility] Address [address] [place] [address] Phone Care Team Providers Care Phlebotomy Specialist Name Role Phone Amaya Kowalski APRN, CNP Primary Care Provider Reason for Visit * Reason Comments Medication Refill Encounter Details Date Type Department Care Team ([facility] st Contact Info) Description 07/15/2022 Refill [facility] - Primary Care - [place] [address] [place] [phone] Clark Archibald MD [address] [place] [address] Medication Refill Social History Tobacco [...] APRN, CNP - 07/15/2022 1:32 PM CDT [place] Prescription Monitoring Site reviewed. * Telephone Encounter - Shena Romo RN - 07/15/2022 1:24 PM CDT Per [place] PDMP last fill date 06/09/22. documented in this encounter Plan of Treatment Upcoming Encounters Date Type Department Care Team (Late st Contact Info) Description 03/21/2025 4:30 PM CDT Office Visit [facility] - Primary Care - [place] [address] [place] [address] Shravan Burgos, PAPI [address] [place] [address] documented as of this encounter Goals Goal Patient Goal Type Associated Problems Recent Progress Patient-Stated? Author Behavioral Health Behavioral Health On track(2019 9:50 AM CDT) Yes Eloise Jenkins, MOLDER OPERATOR Note: Irma reported her goal for [...] On track(2019 9:50 AM CDT) Eloise Mix MOLDER OPERATOR Note: Irma will engage in a [...] documented as of this encounter Care Teams Phlebotomy Specialist Relationship Specialty Start Date End Date Amaya Kowalski, MEGAN, RAG PRODUCTION WORKER [address] [place] [address] PCP - General Advanced Practice Nurse 06/10/18 documented as of this encounter
--- OUTSIDE RECORDS SUMMARY | 2024-11-30 18:10 | XMS_ITS | Encounter Summary ---
Author Organization [facility] Address [address] [place] [address] Phone Care Team Providers Care Medical Radiation Dosimetrist Name Role Phone Amaya Kowalski APRN, CNP Primary Care Provider Reason for Visit * Reason Onset Date Comments Results 01/07/2021 UDS Encounter Details Date Type Department Care Team ([facility] Contact Info) Description 01/07/2021 Telephone [facility] - Primary Care - [place] [address] [place] [address] Amaya Kowalski APRN, CNP [address] [place] [address] Results (UDS) Social History Tobacco [...] COVID-19? No / Unsure 01/02/2021 8:55 AM SENIOR INSTRUCTOR documented as of this encounter Miscellaneous Notes * Telephone Encounter - Amaya Kowalski APN, CNP - 01/07/2021 9:17 AM SENIOR INSTRUCTOR Urine drug screen shows compliance with lorazepam. No other drugs present. OR INSTRUCTOR * Telephone Encounter - Mohini Aguirre RN - 01/07/2021 9:06 AM SENIOR INSTRUCTOR Urine drug screen results received and placed in PCP inbox for review. OR INSTRUCTOR documented in this encounter Plan of Treatment Upcoming Encounters Date Type Department Care Team (Late st Contact Info) Description 03/21/2025 4:30 PM CDT Office Visit [facility] - Primary Care - [place] [address] [place] [address] Shravan Burgos PAC [address] [place] [address] documented as of this encounter [...] track(2019 9:50 AM CDT) No Eloise Jenkins, OR DIRECTOR Note: Irma will engage in a plan [...] as of this encounter Care Teams Medical Radiation Dosimetrist Relationship Specialty Start Date End Date Amaya Kowalski, CHANNEL PROCESS PLANT OPERATOR, DYED YARN OPERATOR [address] [place] [address] PCP - General Advanced Practice Nurse 06/10/18 documented as of this encounter
--- OUTSIDE RECORDS SUMMARY | 2024-11-30 18:10 | XMS_ITS | Encounter Summary ---
Author Organization [facility] Address [address] [place] [address] Phone Care Team Providers Care Exhibit Display Representative Name Role Phone Amaya Kowalski APRN, DOUGLAS Primary Care Provider Encounter Details Date Type Department Care Team ([facility] st Contact Info) Description 2021 3:40 PM CDT Lab [facility] - Primary Care - [address] [address] Lab, [facility] Discharge Disposition: Discharged to home or [...] 2021 3:40 PM CDT Urine sent to [email or web address] Script given documented in this encounter Plan of Treatment Upcoming Encounters Date Type Department Care Team (Late st Contact Info) Description 03/21/2025 4:30 PM CDT Office Visit [facility] - Primary Care - [place] [address] [place] [address] Shravan Burgos, PAPI [address] [place] [address] documented as of this encounter Goals Goal Patient Goal Type Associated Problems Recent Progress Patient-Stated? Author Behavioral Health Behavioral Health On track(2019 9:50 AM CDT) Yes Eloise Jenkins, [facility] Note: Irma reported her goal for [...] On track(2019 9:50 AM CDT) Eloise Mix, [facility] Note: Irma will engage in a [...] documented as of this encounter Care Teams Exhibit Display Representative Relationship Specialty Start Date End Date Amaya Kowalski, MAGNETIC TESTER, ASSEMBLY MACHINE FEEDER [address] [place] [address] PCP - General Advanced Practice Nurse 06/10/18 documented as of this encounter
--- OUTSIDE RECORDS SUMMARY | 2024-11-30 18:10 | XMS_ITS | Encounter Summary ---
Author Organization [facility] Address [address] [place] [place] [address] Phone Care Team Providers Care Buckle Assembler Name Role Phone Amaya Kowalski APRN, CNP Primary Care Provider Reason for Visit * Reason Comments Medication Refill Encounter Details Date Type Department Care Team ([facility] st Contact Info) Description 12/04/[address] [facility] - Primary Care - [place] [address] [place] [address] Amaya Kowalski APRN, QUALIFICATIONS EXAMINER [address] [place] [address] Medication Refill Social History Tobacco [...] Kowalski APRN, CNP - 12/05/2021 9:50 AM JAPANESE TUTOR [place] Prescription Monitoring Site reviewed. Medication approved. NESE TUTOR * Telephone Encounter - Mohini Aguirre RN - 12/04/2021 2:24 PM JAPANESE TUTOR Medication failed the protocol, provider to review [...] 08/08/21 Office Visit Amaya Kowalski APRN, CNP [facility] Showing recent visits within past 365 days and meeting all other requirements Future Appointments No visits were found meeting these conditions. Showing future appointments within next 90 days and meeting all other requirements NESE TUTOR documented in this encounter Plan of Treatment Upcoming Encounters Date Type Department Care Team (Late st Contact Info) Description 03/21/2025 4:30 PM CDT Office Visit [facility] - Primary Care - [place] [address] [place] [address] Shravan Burgos, PAC [address] [place] [address] documented as of this encounter Goals Goal Patient Goal Type Associated Problems Recent Progress Patient-Stated? Author [facility] Behavioral Health On track(2019 9:50 AM CDT) Yes Eloise Jenkins LCPC Note: Irma reported her goal for psychotherapy is to help me be able to deal with things in the present and in her past that are contributing to low and anxious mood. Goal Reviewed with: patient Readiness to change: Thinking about making a change Department associated with goal: [facility] Steps [...] that trigger mood concerns. Behavioral [facility] Behavioral Health On track(2019 9:50 AM CDT) No Eloise Jenkins LCPC Note: Irma will engage in a plan of action to improve emotional and mental wellbeing. Goal Reviewed with: patient Readiness to change: Not yet ready to make a change Department associated with goal: [facility] Steps [...] documented as of this encounter Care Teams Buckle Assembler Relationship Specialty Start Date End Date Amaya Kowalski, SNIPPER, QUALIFICATIONS EXAMINER [address] [place] [address] PCP - General Advanced Practice Nurse 06/10/18 documented as of this encounter
--- OUTSIDE RECORDS SUMMARY | 2024-11-30 18:10 | XMS_ITS | Encounter Summary ---
Author Organization [facility] Address [address] [place] [address] Phone Care Team Providers Care Port Engineer Name Role Phone Amaya Kowalski APRN, CNP Primary Care Provider Reason for Visit * Reason Onset Date Comments Results 05/26/2021 Urine Drug Scree n Encounter Details Date Type Department Care Team ([facility] Contact Info) Description 05/26/2021 Telephone [facility] - Primary Care - [address] [place] [address] Amaya Kowalski APRN, CNP [address] [place] [address] Results (Urine Drug Screen) Social [...] Primary Care - [place] [address] [place] [address] Shravan Burgos PAC [address] [place] [phone] documented as of this encounter Goals Goal [...] documented as of this encounter Care Teams Port Engineer Relationship Specialty Start Date End Date Amaya Kowalski, ORE CRUSHER, FOOD SERVER [address] [place] [address] PCP - General Advanced Practice Nurse 06/10/18 documented as of this encounter
--- OUTSIDE RECORDS SUMMARY | 2024-11-30 18:10 | XMS_ITS | Encounter Summary ---
Author Organization [facility] Address [address] [place] [address] Phone Care Team Providers Care Rust Proofer Name Role Phone Amaya Kowalski APRN, RELAY MECHANIC Primary Care Provider Reason for Visit * Reason Onset Date Comments Erroneous Encounter - Disregard 03/27/2022 Encounter Details Date Type Department Care Team (Late st Contact Info) Description 03/27/2022 Telephone [facility] [address] [place] [address] Amaya Kowalski, STEEL BARREL REAMER, RELAY MECHANIC [address] [place] [address] Erroneous Encounter - Disregard Social History Tobacco [...] Office Visit [facility] - Primary Care - [place] [address] [place] [address] Shravan Burgos, PAPI [address] [place] [address] documented as of this encounter Goals Goal Patient Goal Type Associated Problems Recent Progress Patient-Stated? Author Behavioral Health Behavioral Health On track(2019 9:50 AM CDT) Yes Eloise Jenkins, [facility] Note: Irma reported her goal for [...] documented as of this encounter Care Teams Rust Proofer Relationship Specialty Start Date End Date Amaya Kowalski, STEEL BARREL REAMER, RELAY MECHANIC [address] [place] [address] PCP - General Advanced Practice Nurse 06/10/18 documented as of this encounter
--- OUTSIDE RECORDS SUMMARY | 2024-11-30 18:10 | XMS_ITS | Encounter Summary ---
Author Organization [facility] Address [address] [place] [address] Phone Care Team Providers Care Resident Programs Assistant Name Role Phone Amyaa Kowalski APRN, DOUGLAS Primary Care Provider Reason for Visit * Reason Comments Medication Refill Encounter Details Date Type Department Care Team ([facility] Contact Info) Description 06/24/2021 Refill [facility] - [place] [address] [place] [address] Amaya Kowalski APRN, FURNITURE UPHOLSTERER [address] [place] [address] Medication Refill Social History Tobacco [...] APN, CNP - 06/26/2021 9:39 AM CDT [place] prescription monitoring site reviewed. Medication approved. * [...] Visit [facility] - Primary Care - [place] [address] [place] [address] Shravan Burgos PAC [address] [place] [address] documented as of this encounter Goals Goal Patient Goal Type Associated Problems Recent Progress Patient-Stated? Author Behavioral Health Behavioral Health On track(2019 9:50 AM CDT) Yes Eloise Jenikns, CHAD Note: Irma reported her goal for psychotherapy is to help me be able to deal with things in the present and in her past that are contributing to low and anxious mood. Goal Reviewed with: patient Readiness to change: Thinking about making a change Department associated with goal: [facility] Steps to achieve [...] track(2019 9:50 AM CDT) No Eloise Jenkins, REFERENCE INVESTIGATOR Note: Irma will engage in a plan of action to improve emotional and mental wellbeing. Goal Reviewed with: patient Readiness to change: Not yet ready to make a change Department associated with goal: [facility] Steps to achieve [...] documented as of this encounter Care Teams Resident Programs Assistant Relationship Specialty Start Date End Date Amaya Kowalski, AEROSPACE PROJECT ENGINEER, FURNITURE UPHOLSTERER [address] [place] [address] PCP - General Advanced Practice Nurse 06/10/18 documented as of this encounter
--- OUTSIDE RECORDS SUMMARY | 2024-11-30 18:10 | XMS_ITS | Encounter Summary ---
Author Organization [email or web address] Care Team Providers Care Needle Molder Name Role Phone Amaya Kowalski APRN, COMMUTER TRAIN OPERATOR Primary Care Provider Encounter Details Date [...] Office Visit [facility] - [...] past) that trigger mood concerns. Behavioral [facility] Behavioral Health On track(2019 9:50 AM CDT) No Eloise eJnkins LCPC Note: Irma will engage in a [...] documented as of this encounter Care Teams Needle Molder Relationship Specialty Start Date End Date Amaya Kowalski APRN, COMMUTER TRAIN OPERATOR [address] [place] [address] PCP - General Advanced Practice Nurse 06/10/18 documented as of this encounter
--- OUTSIDE RECORDS SUMMARY | 2024-11-30 18:10 | XMS_ITS | Encounter Summary ---
Author Organization [facility] Address [address] [place] [address] Phone Care Team Providers Care Electrician Aircraft Name Role Phone Amaya Kowalski APRN, CNP Primary Care Provider Reason for Visit * Reason Comments Medication Refill Encounter Details Date Type Department Care Team ([facility] st Contact Info) Description 05/19/2021 Refill [facility] - Primary Care - [place] [address] [place] [address] Amaya Kowalski APRN, UROLOGY SURGEON [address] [place] [address] Medication Refill Social History Tobacco [...] to inform that prescription is ready for hop picker. No answer. Left voicemail. * Telephone Encounter - Amaya Kowalski APN, CNP - 2021 7:39 AM CDT [place] prescription monitoring site reviewed. Need urine drug screen medication approved * Telephone Encounter - Shena Romo RN - 05/19/2021 4:36 PM CDT [place] PDMP last fill date 04/14/21 Medication failed [...] of left foot, initial encounter [facility] - Family Medicine - Amaya Rodriguez APN, CNP 1 year ago Moderate episode of recurrent major depressive disorder (HCC) [facility] Amaya Yoder APN, CNP 1 year ago Anxiety [facility] - Amaya Yoder APN, CNP 2 years ago Chronic bronchitis with productive mucopurulent cough (HCC) [facility] - Fox Conde PAC 2 years ago Chronic bronchitis, unspecified chronic bronchitis type (HCC) [facility] - Amaya Yoder APN, CNP Upcoming Appointments WILDLIFE FORENSIC GENETICIST - Recent and Past Visits Recent Visits Date Type Provider Dept 07/26/20 Office Visit Amaya Kowalski APN, CNP [facility] 04/05/20 Office Visit Amaya Kowalski APN, CNP [facility] Showing recent visits within past 460 [...] [facility] Primary [facility] - [address] [place] [phone] Shravan Burgos PAC [address] [place] [address] documented as of this encounter Goals Goal Patient Goal Type Associated Problems Recent Progress Patient-Stated? Author Behavioral Health Behavioral Health On track(2019 9:50 AM CDT) Yes Eloise Jenkins, AIR HOIST OPERATOR Note: Irma reported her goal for [...] documented as of this encounter Care Teams Electrician Aircraft Relationship Specialty Start Date End Date Amaya Kowalski, C APPLICATION DEVELOPER, UROLOGY SURGEON [address] [place] [address] PCP - General Advanced Practice Nurse 06/10/18 documented as of this encounter
--- OUTSIDE RECORDS SUMMARY | 2024-11-30 18:10 | XMS_ITS | Encounter Summary ---
Author Organization [facility] Address [address] [place] [address] Phone Care Team Providers Care Kettleman Name Role Phone Amaya Kowalski APRN, CNP Primary Care Provider Reason for Visit * Reason Comments Medication Refill Encounter Details Date Type Department Care Team ([facility] st Contact Info) Description 02/04/2021 Refill [facility] - Primary Care - [place] [address] [place] [address] Amaya Kowalski APRN, STATE'S ATTORNEY [address] [place] [address] Medication Refill Social History Tobacco [...] Mohini Aguirre RN - 02/04/2021 10:58 AM CHAIR PAD MAKER Patient phoned to inform that prescription is ready for product picker. No answer. Left voicemail. R PAD MAKER * Telephone Encounter - Amaya Kowalski APN, CNP - 02/04/2021 10:27 AM CHAIR PAD MAKER [place] prescription monitoring site reviewed. Medication approved. Urine drug screen required. R PAD MAKER * Telephone Encounter - Mohini Aguirre RN - 02/04/2021 10:18 AM CHAIR PAD MAKER Medication failed the protocol, provider to review [...] ago Injury of left foot, initial encounter [facility] - Amaya Rodriguez APN, CNP 10 months ago Moderate episode of recurrent major depressive disorder (HCC) [facility] - Amaya Yoder APN, CNP 1 year ago Anxiety [facility] - Amaya Yoder APN, CNP 1 year ago Chronic bronchitis with productive mucopurulent cough (HCC) [facility] - Fox Conde PAC 1 year ago Chronic bronchitis, unspecified chronic bronchitis type (HCC) [facility] - Amaya Yoder APN, CNP Upcoming Appointments SENIOR MARKETING COORDINATOR - Recent and Past Visits Recent Visits [...] Failed - This refill cannot be delegated R PAD MAKER documented in this encounter Plan of Treatment Upcoming Encounters Date Type Department Care Team (Late st Contact Info) Description 03/21/2025 4:30 PM CDT Office Visit [facility] [place] Primary Care - [address] [place] [address] Shravan Burgos PAC [address] [place] [address] documented as of this encounter Goals Goal Patient Goal Type Associated Problems Recent Progress Patient-Stated? Author Behavioral Health Behavioral Health On track(2019 9:50 AM CDT) Yes Eloise Jenkins, COMMERCIAL HVAC TECHNICIAN Note: Irma reported her goal for [...] documented as of this encounter Care Teams Kettleman Relationship Specialty Start Date End Date Amaya Kowalski, EXECUTIVE DIRECTOR, STATE'S ATTORNEY [address] [place] [address] PCP - General Advanced Practice Nurse 06/10/18 documented as of this encounter
--- OUTSIDE RECORDS SUMMARY | 2024-11-30 18:10 | XMS_ITS | Encounter Summary ---
Author Organization [facility] Address [address] [place] [address] Phone Care Team Providers Care Sheetmetal Worker Name Role Phone Amaya Kowalski APRN, DOUGLAS Primary Care Provider Reason for Visit * Reason Comments Medication Refill Encounter Details Date Type Department Care Team (Late st Contact Info) Description 02/04/2021 Refill [facility] - Primary Care - [place] [address] [place] [address] Fox Jesus PAC Medication Refill [...] Kowalski APN, CNP - 02/04/2021 10:22 AM GOLF COURSE STARTER Approved COURSE STARTER * Telephone Encounter - Mohini Aguirre RN - 02/04/2021 10:19 AM GOLF COURSE STARTER Medication failed the protocol, provider to review [...] ago Injury of left foot, initial encounter [facility] [place] Kowalski APN, CNP 10 months ago Moderate episode of recurrent major depressive disorder (HCC) [facility] - Amaya Yoder APN, CNP 1 year ago Anxiety [facility] - Amaya Yoder APN, CNP 1 year ago Chronic bronchitis with productive mucopurulent cough (HCC) [facility] - Fox Conde PAC 1 year ago Chronic bronchitis, unspecified chronic bronchitis type (HCC) [facility] - Amaya Yoder APN, CNP Upcoming Appointments OUTSIDE PRODUCTION INSPECTOR - Recent and Past Visits Recent Visits Date Type Provider Dept 07/26/20 Office Visit Amaya Kowalski APN, CNP [facility] 04/05/20 Office Visit Amaya Kowalski APN, CNP [facility] recent visits within past 460 days [...] Readings from Last 1 Encounters: 12/05/20 117/80 COURSE STARTER documented in this encounter Plan of Treatment Upcoming Encounters Date Type Department Care Team (Late st Contact Info) Description 03/21/2025 4:30 PM CDT Office Visit [facility] - Primary Care - [place] [address] [place] [address] Shravan Burgos PAC [address] [place] [address] documented as of this encounter [...] documented as of this encounter Care Teams Sheetmetal Worker Relationship Specialty Start Date End Date Amaya Kowalski, COIL TAPER, SUPPLY CHAIN INTERN [address] [place] [address] PCP - General Advanced Practice Nurse 06/10/18 documented as of this encounter
--- OUTSIDE RECORDS SUMMARY | 2024-11-30 18:10 | XMS_ITS | Encounter Summary ---
Author Organization [facility] Address [address] [place] [address] Phone Care Team Providers Care Speeder Hand Name Role Phone Amaya Kowalski APRN, CNP Primary Care Provider Reason for Visit * Reason Onset Date Comments Back Pain 08/07/2021 Encounter Details Date Type Department Care Team (Late st Contact Info) Description 08/07/2021 Nurse Triage [facility] - Primary Care - [place] [address] [place] [address] Amaya Kowalski APRN, PRINT DEVELOPER AUTOMATIC [address] [place] [address] Back Pain Social History Tobacco [...] [facility]. [facility]. Also per PCP, will need the x-ray results prior to ordering an MRI. My Chart message sent to patient. * Telephone Encounter - Marian Haskins RN - 08/08/2021 2:59 PM CDT Patient calling back to follow up on response to [employer] message. Advised her of provider's response. Wanted [...] last night, after she had sent the [employer] message, woke her up at 1 am [...] * Telephone Encounter - Amaya Kowalski APN, DOUGLAS - 08/08/2021 2:05 PM CDT Please fax an order for an x-ray to [facility]. We could also do Flexeril 15 [...] if you could send an order to [facility] for and xray of my back [...] 4:30 PM CDT Office Visit [facility] - Primary Care - [place] [address] [place] [address] Shravan Burgos PAC [address] [place] [address] documented as of this encounter Goals Goal Patient Goal Type Associated Problems Recent Progress Patient-Stated? Author Behavioral Health Behavioral Health On track(2019 9:50 AM CDT) Yes Eloise Jenkins, RESEARCHER Note: Irma reported her goal for psychotherapy [...] documented as of this encounter Care Teams Speeder Hand Relationship Specialty Start Date End Date Amaya Kowalski, ACCOUNTANT HELPER, PRINT DEVELOPER AUTOMATIC [address] [place] [address] PCP - General Advanced Practice Nurse 06/10/18 documented as of this encounter
--- OUTSIDE RECORDS SUMMARY | 2024-11-30 18:10 | XMS_ITS | Encounter Summary ---
Author Organization [facility] Address [address] [place] [address] Phone Care Team Providers Care Pile Fabric Knitter Name Role Phone Amaya Kowalski APRN, CNP Primary Care Provider Reason for Visit * Reason Comments Medication Refill Encounter Details Date Type Department Care Team ([facility] st Contact Info) Description 05/06/2022 Refill [facility] - Primary Care - [place] [address] [place] [address] Amaya Kowalski APRN, SMALL PRODUCTS II ASSEMBLER [address] [place] [address] Medication Refill Social History Tobacco [...] APRN, CNP - 05/06/2022 3:57 PM CDT [place] prescription monitoring site reviewed. Medication approved. * Telephone Encounter - Shena Romo RN - 05/06/2022 11:27 AM CDT Per [place] PDMP last fill date 02/17/22. documented in this encounter Plan of Treatment Upcoming Encounters Date Type Department Care Team (Late st Contact Info) Description 03/21/2025 4:30 PM CDT Office Visit [facility] - Primary Care - [place] [address] [place] [address] Shravan Burgos PAC [address] [place] [address] documented as of this encounter Goals Goal Patient Goal Type Associated Problems Recent Progress Patient-Stated? Author Behavioral Health Behavioral Health On track(2019 9:50 AM CDT) Yes Eloise Jenkins, [facility] Note: Irma reported her [...] track(2019 9:50 AM CDT) No Eloise Jenkins, SERVICE DESK TECHNICIAN Note: Irma will engage in a [...] documented as of this encounter Care Teams Pile Fabric Knitter Relationship Specialty Start Date End Date Amaya Kowalski, MEGAN, DOUGLAS [address] [place] [address] PCP - General Advanced Practice Nurse 06/10/18 documented as of this encounter
--- OUTSIDE RECORDS SUMMARY | 2024-11-30 18:10 | XMS_ITS | Encounter Summary ---
Author Organization [facility] Address [address] [place] [address] Phone Care Team Providers Care Data Steward Name Role Phone Amaya Kowalski APRN, DOUGLAS Primary Care Provider Reason for Visit * Reason Comments Medication Refill Encounter Details Date Type Department Care Team (Late st Contact Info) Description 08/05/2021 Refill [facility] - [place] [address] [place] [address] Amaya Kowalski APRN, NIPPLE THREADER [address] [place] [address] Medication Refill Social History Tobacco [...] APN, CNP - 08/06/2021 11:18 AM CDT [place] prescription monitoring site [...] Visit [facility] - Primary Care - [place] [address] [place] [address] Shravan Burgos PAC [address] [place] [address] documented as of this encounter [...] On track(2019 9:50 AM CDT) No Eloise Jenknis, ACCOUNTS SUPERVISOR Note: Irma will engage in a [...] documented as of this encounter Care Teams Data Steward Relationship Specialty Start Date End Date Amaya Kowalski, FOREST FIRE MANAGEMENT OFFICER, NIPPLE THREADER [address] [place] [address] PCP - General Advanced Practice Nurse 06/10/18 documented as of this encounter
--- OUTSIDE RECORDS SUMMARY | 2024-11-30 18:10 | XMS_ITS | Encounter Summary ---
Author Organization [facility] Address [address] [place] [address] Phone Care Team Providers Care Job Training Specialist Name Role Phone Amaya Kowalski APRN, DOUGLAS Primary Care Provider Reason for Visit * Reason Comments Medication Refill Encounter Details Date Type Department Care Team ([facility] st Contact Info) Description 03/14/2021 Refill [facility] - [facility] - [address] [place] [address] Amaya Kowalski APRN, PUBLIC HEALTH MICROBIOLOGIST [address] [place] [address] Medication Refill Social History Tobacco [...] Description 03/21/2025 4:30 PM CDT Office Visit [facility] - Primary Care - [place] [address] [place] [address] Shravan Burgos PAC [address] [place] [address] documented as of this encounter [...] documented as of this encounter Care Teams Job Training Specialist Relationship Specialty Start Date End Date Amaya Kowalski, LEAD GENERATION REPRESENTATIVE, PUBLIC HEALTH MICROBIOLOGIST [address] [place] [address] PCP - General Advanced Practice Nurse 06/10/18 documented as of this encounter
--- OUTSIDE RECORDS SUMMARY | 2024-11-30 18:10 | XMS_ITS | Encounter Summary ---
Author Organization [facility] Address [address] [place] [address] Phone Care Team Providers Care Bush And Vine Fruit Crop Farmer Name Role Phone Amaya Kowalski APRN, PUMP REBUILDER Primary Care Provider Reason for Visit * Reason Onset Date Comments Medication Refill 03/25/2022 Encounter Details Date Type Department Care Team (Late st Contact Info) Description 03/25/2022 Telephone [facility] - Family [facility] [address] [place] [address] Amaya Kowalski APRN, PUMP REBUILDER [address] [place] [address] Medication Refill Social History Tobacco Use Types [...] ? Patient would like a return call @[phone] documented in this encounter Plan of Treatment Upcoming Encounters Date Type Department Care Team (Late st Contact Info) Description 03/21/2025 4:30 PM CDT Office Visit [facility] - Primary Care - [...] documented as of this encounter Care Teams Bush And Vine Fruit Crop Farmer Relationship Specialty Start Date End Date Amaya Kowalski, LABOR ARBITRATOR, PUMP REBUILDER [address] [place] [address] PCP - General Advanced Practice Nurse 06/10/18 documented as of this encounter
--- OUTSIDE RECORDS SUMMARY | 2024-11-30 18:10 | XMS_ITS | Encounter Summary ---
Author Organization [facility] Address [address] [place] [address] Phone Care Team Providers Care Nail Setter Name Role Phone Amaya Kowalski APRN, CNP Primary Care Provider Reason for Visit * Reason Comments Medication Refill Encounter Details Date Type Department Care Team ([facility] st Contact Info) Description 04/11/2021 Refill [facility] - Primary Care - [place] [address] [place] [address] Amaya Kowalski APRN, MANNEQUIN MOLDER [address] [place] [address] Medication Refill Social History Tobacco [...] APN, CNP - 04/14/2021 8:30 AM CDT [place] prescription monitoring site reviewed medication approved. * Telephone Encounter - Shena Romo RN - 04/11/2021 4:15 PM CDT [place] PDMP last fill date 03/14/21 Medication failed [...] ago Injury of left foot, initial encounter [facility] Amaya Kowalski APN, CNP 1 year ago Moderate episode of recurrent major depressive disorder (HCC) [facility] - Amaya Yoder APN, CNP 1 year ago Anxiety [facility] - Amaya Yoder APN, CNP 2 years ago Chronic bronchitis with productive mucopurulent cough (HCC) [facility] - Fox Conde PAC 2 years ago Chronic bronchitis, unspecified chronic bronchitis type (HCC) [facility] - Amaya Yoder APN, CNP Upcoming Appointments WEDDING COORDINATOR - Recent and Past Visits Recent Visits Date Type Provider Dept 07/26/20 Office Visit Amaya Kowalski APN, CNP [facility] 04/05/20 Office Visit Amaya Kowalski, KENTON, DOUGLAS [facility] Showing recent visits within past 460 [...] 4:30 PM CDT [facility] - Primary Care - [place] [address] [place] [place] [address] Shravan Burgos PAC [address] [place] [address] documented as of this encounter [...] documented as of this encounter Care Teams Nail Setter Relationship Specialty Start Date End Date Amaya Kowalski, EVAPORATOR HELPER, MANNEQUIN MOLDER [address] [place] [address] PCP - General Advanced Practice Nurse 06/10/18 documented as of this encounter
--- OUTSIDE RECORDS SUMMARY | 2024-11-30 18:10 | XMS_ITS | Encounter Summary ---
Author Organization [employer] Care Team Providers Care Mechanical Assembly Technician Name Role Phone Amaya Kowalski APRN, RECRUITMENT COORDINATOR Primary Care Provider Encounter Details Date [...] CDT Office Visit [facility] - Primary Care - Eder [...] as of this encounter Care Teams Mechanical Assembly Technician Relationship Specialty Start Date End Date Amaya Kowalski, CORRECTIONS LIEUTENANT, RECRUITMENT COORDINATOR [address] [place] [address] PCP - General Advanced Practice Nurse 06/10/18 documented as of this encounter
--- OUTSIDE RECORDS SUMMARY | 2024-11-30 18:10 | XMS_ITS | Encounter Summary ---
Author Organization [facility] Address [address] [place] [address] [place] [address] Phone Care Team Providers Care Extruder Operator Horizontal Name Role Phone Amaya Kowalski APRN, CNP Primary Care Provider Reason for Visit * Reason Comments Medication Refill Encounter Details Date Type Department Care Team ([facility] Contact Info) Description 10/21/2021 Refill [facility] Primary Care - [place] [address] [place] [address] Amaya Kowalski APRN, PERINATAL DIRECTOR [address] [place] [address] Medication Refill Social History Tobacco [...] Mohini Aguirre RN - 10/21/2021 9:08 AM FINISHING POWDER PRESS OPERATOR Medication failed the protocol, provider to review [...] 08/08/21 Office Visit Amaya Kowalski APRN, CNP [facility] Showing recent visits within past [...] location, unspecified back pain laterality, unspecified chronicity [facility] Amaya Kowalski APRN, DOUGLAS 1 year ago Injury of left foot, initial encounter [facility] Amaya Kowalski APRN, DOUGLAS 1 year ago Moderate episode of recurrent major depressive disorder (HCC) [facility]N, CNP 2 years ago Anxiety [facility], DOUGLAS 2 years ago Chronic bronchitis with productive mucopurulent cough (HCC) [facility] - Fox Codne PAC Upcoming Appointments PNEUMATIC PRESS HAND - Recent and Past Visits Recent Visits Date Type Provider Dept 08/08/21 Office Visit Amaya Kowalski APRN, PERINATAL DIRECTOR [facility] [address] 07/26/20 Office Visit [facility] Show[facility] recent visits within past 460 days with a meds authorizing provider and meeting all other requirements Future Appointments No visits were found meeting these conditions. Showing future appointments within next 90 days with a meds authorizing provider and meeting all other requirements SHING POWDER PRESS OPERATOR documented in this encounter Plan of Treatment Upcoming Encounters Date Type Department Care Team (Late st Contact Info) Description 03/21/2025 4:30 PM CDT Office Visit [facility] - Primary Care - [address] [place] [address] Shravan Burgos PAC [address] [place] [address] documented as of this encounter Goals Goal [...] track(2019 9:50 AM CDT) No Eloise Jenkins, CARTON FORMING MACHINE TENDER Note: Irma will engage in a [...] documented as of this encounter Care Teams Extruder Operator Horizontal Relationship Specialty Start Date End Date Amaya Kowalski, AIRDOX FITTER, PERINATAL DIRECTOR [address] [place] [address] PCP - General Advanced Practice Nurse 06/10/18 documented as of this encounter
--- OUTSIDE RECORDS SUMMARY | 2024-11-30 18:10 | XMS_ITS | Encounter Summary ---
Author Organization [employer] Care Team Providers Care Home Manager Name Role Phone Amaya Kowalski APRN, PARENT TRAINER Primary Care Provider Encounter Details Date Type [...] 03/21/2025 4:30 PM CDT Office Visit [facility] - Primary Care - [place] [address] [place] [address] Shravan Burgos, PAC [address] [place] [address] documented as of this encounter Goals Goal Patient Goal Type Associated Problems Recent Progress Patient-Stated? Author [facility] Health On track(2019 9:50 AM CDT) [...] past) that trigger mood concerns. Behavioral [facility] Behavioral Health On track(2019 9:50 AM [...] documented as of this encounter Care Teams Home Manager Relationship Specialty Start Date End Date Amaya Kowalski, FLUOROSCOPE OPERATOR, PARENT TRAINER [address] [place] [address] PCP - General Advanced Practice Nurse 06/10/18 documented as of this encounter
--- OUTSIDE RECORDS SUMMARY | 2024-11-30 18:10 | XMS_ITS | Encounter Summary ---
Author Organization [facility] Address [address] [place] [address] Phone Care Team Providers Care City Carrier Assistant Name Role Phone Amaya Kowalski APRN, MOLYBDENUM STEAMER OPERATOR Primary Care Provider Encounter Details Date Type Department Care Team (Late st Contact Info) Description 07/17/2022 Transcribe Orders [facility] Scheduling [address] [place] [address] Veronika Orantes APRN, MOLYBDENUM STEAMER OPERATOR 4 [facility] [address] [place] [address] Visit for screening mammogram (Primary [...] 03/21/2025 4:30 PM CDT Office Visit [facility] - Primary Care - Garcia [address] [place] [address] Shravan Burgos, PAPI [address] [place] [address] documented as of this encounter [...] as of this encounter Care Teams City Carrier Assistant Relationship Specialty Start Date End Date Amaya Kowalski, PMO CONSULTANT, MOLYBDENUM STEAMER OPERATOR [address] [place] [address] PCP - General Advanced Practice Nurse 06/10/18 documented as of this encounter
--- OUTSIDE RECORDS SUMMARY | 2024-11-30 18:10 | XMS_ITS | Encounter Summary ---
Author Organization [facility] Address [address] [place] [address] Phone Care Team Providers Care Wind Power Project Manager Name Role Phone Amaya Kowalski APRN, DOUGLAS Primary Care Provider Encounter Details Date Type Department Care Team ([facility] st Contact Info) Description 02/04/2021 4:10 PM DIMENSION MILL WORKER Lab [facility] - Primary Care - [address] [phone] Lab, [facility] Discharge Disposition: Discharged [...] COVID-19? No / Unsure 02/04/2021 4:02 PM DIMENSION MILL WORKER documented as of this encounter Progress Notes * Cristin Tolentino RMA - 02/04/2021 4:10 PM CST uds sent to [employer] Script given NSION MILL WORKER documented in this encounter Plan of Treatment Upcoming Encounters Date Type Department Care Team (Late st Contact Info) Description 03/21/2025 4:30 PM CDT Office Visit [facility] - Primary Care - [place] [address] [place] [address] Shravan Burgos, PAPI [address] [place] [address] documented as of this encounter Goals Goal Patient Goal Type Associated Problems Recent Progress Patient-Stated? Author Behavioral Health Behavioral Health On track(2019 9:50 AM CDT) Yes Eloise Jenkins, INSIDE SOLAR SALES CONSULTANT Note: Irma reported her goal for psychotherapy [...] documented as of this encounter Care Teams Wind Power Project Manager Relationship Specialty Start Date End Date Amaya Kowalski, WELFARE PROJECT MANAGER, BALL MACHINE OPERATOR [address] [place] [address] PCP - General Advanced Practice Nurse 06/10/18 documented as of this encounter
--- OUTSIDE RECORDS SUMMARY | 2024-11-30 18:10 | XMS_ITS | Encounter Summary ---
Author Organization [facility] Address [address] [place] [address] Phone Care Team Providers Care Embossing Unit Operator Name Role Phone Amaya Kowalski APRN, SENIOR SUPPORT ENGINEER Primary Care Provider Reason for Visit * Reason Onset Date Comments COVID-19 07/03/2021 Encounter Details Date Type Department Care Team (Late st Contact Info) Description 07/03/2021 Nurse Triage [facility] Call Center [address] [place] [phone] Amaya Kowalski, DISTRICT BRANCH MANAGER, SENIOR SUPPORT ENGINEER [address] [place] [address] COVID-19 Social History Tobacco Use Types Packs/Day [...] been resting. Patient states she has taken [id number] for cough. Patient has not used the [...] <100) Protocols used: CORONAVIRUS (COVID-19) DIAGNOSED OR [id number] documented in this encounter Plan of Treatment Upcoming Encounters Date Type Department Care Team (Late st Contact Info) Description 03/21/2025 4:30 PM CDT Office Visit [facility] - Primary Care - Jose [address] [place] [address] Shravan Burgos, PAPI [address] [place] [address] documented as of this encounter Goals Goal Patient Goal Type Associated Problems Recent Progress Patient-Stated? Author Behavioral [facility] Behavioral Health On track(2019 [...] past) that trigger mood concerns. Behavioral [facility] Behavioral Health On track(2019 [...] documented as of this encounter Care Teams Embossing Unit Operator Relationship Specialty Start Date End Date Amaya Kowalski, DISTRICT BRANCH MANAGER, SENIOR SUPPORT ENGINEER [address] [place] [address] PCP - General Advanced Practice Nurse 06/10/18 documented as of this encounter
--- OUTSIDE RECORDS SUMMARY | 2024-11-30 18:10 | XMS_ITS | Encounter Summary ---
Author Organization [facility] Address [address] [place] [address] Phone Care Team Providers Care Magazine Editor Name Role Phone Amaya Kowalski APRN, CNP Primary Care Provider Reason for Visit * Reason Onset Date Comments Results 08/12/2021 X-ray Encounter Details Date Type Department Care Team ([facility] Contact Info) Description 08/12/2021 Telephone [facility] - Primary Care - [place] [address] [place] [address] Amaya Kowalski APRN, CNP [address] [place] [address] Results (X-ray) Social History Tobacco [...] on: 11/12/2021 02:42 PM Modules accepted: Orders ER ASSEMBLER * Telephone Encounter - oMhini Aguirre RN - 08/12/2021 11:05 AM CDT [...] 9:07 AM CDT X-ray results received from [facility]. Placed in PCP inbox for review. documented in this encounter Plan of Treatment Upcoming Encounters Date Type Department Care Team (Late st Contact Info) Description 03/21/2025 4:30 PM CDT Office Visit [facility] - Primary Care - [place] [address] [place] [address] Shravan Burgos, PAPI [address] [place] [address] documented as of this encounter Goals Goal Patient Goal Type Associated Problems Recent Progress Patient-Stated? Author Behavioral Health Behavioral Health On track(2019 9:50 AM CDT) Yes Eloise Jenkins, [facility] Note: Irma reported her [...] On track(2019 9:50 AM CDT) Eloise Mix, PROCESSING TECHNOLOGIST Note: Irma will engage in a plan [...] documented as of this encounter Care Teams Magazine Editor Relationship Specialty Start Date End Date Amaya Kowalski, CIGAR HEAD PUNCHER, STONER OUT [address] [place] [address] PCP - General Advanced Practice Nurse 06/10/18 documented as of this encounter
--- OUTSIDE RECORDS SUMMARY | 2024-11-30 18:11 | XMS_ITS | Encounter Summary ---
Author Organization [facility] Address [address] [place] [address] Phone Care Team Providers Care Carburizer Name Role Phone Amaya Kowalski APRN, CNP Primary Care Provider Reason for Visit * Reason Comments Medication Refill Encounter Details Date Type Department Care Team ([facility] Contact Info) Description 09/20/2020 Refill [facility] - Primary Care - [place] [address] [place] [address] Amaya Kowalski APRN, BLACKTOP SPREADER [address] [place] [address] Medication Refill Social [...] Injury of left foot, initial encounter [facility] - Family Medicine - GainesAmaya Soto APN, CNP 5 months ago Moderate episode of recurrent major depressive disorder (HCC) [facility] C[facility] 1 year ago Anxiety [facility] Amaya Yoder APN, CNP 1 year ago Chronic bronchitis with productive mucopurulent cough (HCC) [facility] Fox Conde [facility] 1 year ago Chronic bronchitis, unspecified chronic bronchitis type (HCC) [facility] - Amaya Yoder, KENTON, BLACKTOP SPREADER Upcoming Appointments Future Appointments In 2 weeks [id number] [facility] Mammography, [facility] In 2 weeks [id number]; SAHCUS1 [facility] Ultrasound, [facility] SKILLED LABOR - Recent and Past Visits Recent Visits Date Type Provider Dept 07/26/20 Office Visit Amaya Kowalski APN, DOUGLAS [address] 04/05/20 Office Visit Amaya Kowalski APN, DOUGLAS [address] 08/17/19 Office Visit Amaya Kowalski APN, DOUGLSA [facility] [address] Showing recent visits within past [...] CDT Office Visit [facility] Primary Care - [place] [address] [place] [phone] Shravan Burgos PAC [address] [place] [address] documented as of this encounter Goals Goal [...] documented as of this encounter Care Teams Carburizer Relationship Specialty Start Date End Date Amaya Kowalski, SHANK SCOURER, BLACKTOP SPREADER [address] [place] [address] PCP - General Advanced Practice Nurse 06/10/18 documented as of this encounter
--- OUTSIDE RECORDS SUMMARY | 2024-11-30 18:11 | XMS_ITS | Encounter Summary ---
Author Organization [facility] Address [address] [place] [address] Phone Care Team Providers Care Backup Engineer Name Role Phone Amaya Kowalski APRN, AQUATICS LIFEGUARD Primary Care Provider Encounter Details Date Type Department Care Team (Late st Contact Info) Description 09/19/2020 Transcribe Orders [facility] Central Scheduling [address] [place] [id number] Veronika Orantes APRN, AQUATICS LIFEGUARD 4 [facility] [address] [place] [address] Other abnormal and inconclusive findings [...] Primary Care - [place]der [address] [place] [address] Shravan Burgos, PAPI [address] [place] [address] documented as of this encounter [...] documented as of this encounter Care Teams Backup Engineer Relationship Specialty Start Date End Date Amaya Kowalski, PAPER BAG PRESS OPERATOR, AQUATICS LIFEGUARD [address] [place] [address] PCP - General Advanced Practice Nurse 06/10/18 documented as of this encounter
--- OUTSIDE RECORDS SUMMARY | 2024-11-30 18:11 | XMS_ITS | Encounter Summary ---
Author Organization [employer] Care Team Providers Care Project Hire Name Role Phone Amaya Kowalski APRN, WELLNESS DIRECTOR Primary Care Provider Encounter Details Date [...] COVID-19? No / Unsure 10/11/2020 12:13 PM ROPE MACHINE SETTER documented as of this encounter Plan of Treatment Upcoming Encounters Date Type Department Care Team (Late st Contact Info) Description 03/21/2025 4:30 PM CDT [facility] - Primary Care - Jose [...] (current and past) that trigger mood concerns. [facility] Health On track(2019 9:50 AM CDT) [...] - 19 10/11/2020 10/11/2020 10/13/2020 8:16 AM ROPE MACHINE SETTER Assessment Noted Time PHQ-9 Depression Total Score: 020 2:00 PM CDT documented as of this encounter Care Teams Project Hire Relationship Specialty Start Date End Date Amaya Kowalski, FLIGHT DATA TECHNICIAN, WELLNESS DIRECTOR [address] [place] [address] PCP - General Advanced Practice Nurse 06/10/18 documented as of this encounter
--- OUTSIDE RECORDS SUMMARY | 2024-11-30 18:11 | XMS_ITS | Encounter Summary ---
Author Organization [facility] Address [address] [place] [address] Phone Care Team Providers Care Solid Waste Collection Worker Name Role Phone Amaya Kowalski APRN, COMPUTER INSTALLER Primary Care Provider Reason for Visit * Reason Onset Date Comments ED Follow-up 10/15/2020 Encounter Details Date Type Department Care Team (Late st Contact Info) Description 10/15/2020 Telephone [facility] Central Call Center [address] [place] [address] Amaya Kowalski, MEGAN, COMPUTER INSTALLER [address] [place] [address] ED Follow-up Social History Tobacco Use Types [...] COVID-19? No / Unsure 10/11/2020 12:13 PM EQUIPMENT INSTALLER documented as of this encounter Miscellaneous Notes * Telephone Encounter - Huong Polo RN - 10/15/2020 9:15 AM CST Pt is calling to schedule Hospital/ED/Prompt-Care follow up appointment. Hospital/ED/[facility]pt-[facility] Site: [facility] ED Records Requested: Reason for Hospitalization/ED/Prompt-Care Visit: [...] Scheduled: Routed update to provider to notify. PMENT INSTALLER documented in this encounter Plan of Treatment Upcoming Encounters Date Type Department Care Team (Late st Contact Info) Description 03/21/2025 4:30 PM CDT Office Visit [facility] - Primary Care - [place] [address] [place] [address] Shravan Burgos PAC [address] [place] [address] documented as of this encounter Goals Goal Patient Goal Type Associated Problems Recent Progress Patient-Stated? Author Behavioral Health Behavioral Health On track(2019 9:50 AM CDT) Yes [place], Eloise E, MOTORCYCLE RACER Note: Irma reported her goal for psychotherapy [...] documented as of this encounter Care Teams Solid Waste Collection Worker Relationship Specialty Start Date End Date Amaya Kowalski, HAND MOLDER MEAT, COMPUTER INSTALLER [address] [place] [address] PCP - General Advanced Practice Nurse 06/10/18 documented as of this encounter
--- OUTSIDE RECORDS SUMMARY | 2024-11-30 18:11 | XMS_ITS | Encounter Summary ---
Author Organization [facility] Address [address] [place] [address] Phone Care Team Providers Care [facility] Department Supervisor Name Role Phone Amaya Kowalski APRN, BROOMCORN THRESHER Primary Care Provider Reason for Visit * Radiology Services (Routine) - Closed Specialty Diagnoses / Procedures Referred By Contac t Referred To Contact Radiology Diagnoses Other abnormal and inconclusive findings on diagnostic imaging of breast Procedures NU DIAG RIGHT UNILATERAL DIGITAL W CAD W [place]ILBERT NU DIAG RIGHT DIGITAL W CAD Veronika Orantes APRN, BROOMCORN THRESHER 4 [facility] [address] [place] [address] Phone: tel: fax: Referral ID Status Reason Start Date Expiration Date Visits Re quested Visits Authorized [id number] Closed 09/19/2020 1 1 Encounter Details Date Type Department Care Team (Latest Contact Info) Description 11/04/2020 1:14 PM PATIENT CARE SECRETARY - 11/04/2020 11:59 PM PATIENT CARE SECRETARY Hospital Encounter [facility] [address] [place] [id number] Amaya Kowalski, MEGAN, BROOMCORN THRESHER [address] [place] [address] Discharge Disposition: Discharged to home or Selfcare [...] COVID-19? No / Unsure 11/04/2020 1:11 PM PATIENT CARE SECRETARY documented as of this encounter Medications at [...] Description 03/21/2025 4:30 PM CDT Office Visit [facility] Care - [place] [address] [place] [address] Shravan Burgos, PAC [address] [...] (current and past) that trigger mood concerns. [facility] On track(2019 9:50 AM [...] CAD W WILBERT Routine 11/04/2020 1:41 PM PATIENT CARE SECRETARY Other abnormal and inconclusive findings on diagnostic imaging of breast documented in this encounter Results * NU DIAG RIGHT UNILATERAL DIGITAL W CAD W WILBERT (11/04/2020 1:41 PM PATIENT CARE SECRETARY) Anatomical Region Laterality Modality breast Right Mammography 11/04/2020 1:17 PM PATIENT CARE SECRETARY Narrative 11/04/2020 4:19 PM PATIENT CARE SECRETARY - NU DIAG RIGHT UNILATERAL DIGITAL W [...] made to exams dated: ??09/13/2020 and 03/14/2019 [facility]. ?? BREAST TISSUE:The tissue of the right [...] Mounika Song M.D. ? ll/:11/04/2020 13:39:30 ?? Supervisor Pressing Department: Angie Greenwood RT(R)(M), [facility] letter sent: Normal Exam ?? Reading location: [facility] BI-RADS: 1 Negative Procedure Note Mounika [...] made to exams dated: 09/13/2020 and 03/14/2019 [facility]. BREAST TISSUE:The tissue of the right breast [...] signed by: Mounika Song M.D. ll/:11/04/2020 13:39:30 Supervisor Pressing Department: Angie Greenwood RT(R)(M), [facility] letter sent: Normal Exam Reading location: [facility] BI-RADS: 1 Negative us Veronika Orantes APRN, CNP IM MAMMO ORDERABLES Kaylin l Result documented in this encounter Visit Diagnoses Diagnosis Other abnormal and inconclusive findings on diagnostic imaging of breast documented in this encounter Additional Health Concerns Assessment Noted Time PHQ-9 Depression Total Score: 13 020 2:00 PM CDT documented as of this encounter Care Teams [facility] [employer] Department Supervisor Relationship Specialty Start Date End Date Amaya Kowalski APRN, BROOMCORN THRESHER [address] [place] [id number] PCP - General Advanced Practice Nurse 06/10/18 documented as of this encounter
--- OUTSIDE RECORDS SUMMARY | 2024-11-30 18:11 | XMS_ITS | Encounter Summary ---
Author Organization [facility] Address [address] [place] [place] [address] Phone Care Team Providers Care Mine Production Engineer Name Role Phone Amaya Kowalski APRN, SOLE TIER Primary Care Provider Reason for Visit * Reason Comments Facial Droop * Auth/Cert Specialty Diagnoses / Procedures Referred By Claudio t Referred To Contact Diagnoses Lower facial weakness Left Lower facial weakness Referral ID Status Reason Start Date Expiration Date Visits Re quested Visits Authorized [id number] 1 1 Encounter Details Date Type Department Care Team (Late st Contact Info) Description 12/05/2020 1:40 AM MEDICAL FRONT DESK SPECIALIST - 12/05/2020 10:56 PM MEDICAL FRONT DESK SPECIALIST Emergency [facility] Med Surg [address] [place] [id number] Kris Severino MD [address] [place] [address] Jaya Simpson APRN, SOLE TIER [address] [place] [address] Robert Moore MD [address] [place] [address] Yumiko Titus MD [address] [place] [address] Tobacco use disorder Discharge Disposition: Discharged to [...] Coronavirus / COVID-19? Yes 12/05/2020 3:55 AM MEDICAL FRONT DESK SPECIALIST documented as of this encounter Last Filed Vital Signs Vital Sign Reading Time Taken Comments Blood Pressure 117/80 12/05/2020 10:29 PM MEDICAL FRONT DESK SPECIALIST Pulse 102 12/05/2020 10:29 PM MEDICAL FRONT DESK SPECIALIST Temperature 37.2 ??C (99 ??F) 12/05/2020 10:29 PM MEDICAL FRONT DESK SPECIALIST Respiratory Rate 16 12/05/2020 10:29 PM MEDICAL FRONT DESK SPECIALIST Oxygen Saturation 99% 12/05/2020 10:29 PM MEDICAL FRONT DESK SPECIALIST Inhaled Oxygen Concentration - - Weight 60.1 kg (132 lb 6.4 oz) 12/05/2020 5:40 A M MEDICAL FRONT DESK SPECIALIST Height 160 cm (5' 3 ) 12/05/2020 5:40 AM MEDICAL FRONT DESK SPECIALIST Body Mass Index 23.45 12/05/2020 5:40 AM MEDICAL FRONT DESK SPECIALIST documented in this encounter Discharge Summaries * Yumiko Titus MD - 12/05/2020 9:30 PM CST Images from the original note were not included. [facility] DISCHARGE SUMMARY Name: Irma Seymour Age: 40 [...] Follow up in 1 week(s) [address] [facility] [address] oral surgery Follow up in 1 week(s) [...] 5.1 12/05/2020 Lab Results Component Value Date [id number] 354 10/24/2019 Lab Results Component Value Date [...] Thank you very much for allowing the [facility] Adult Hospitalist Service to participate in the care of this patient. If you have any questions, please don't hesitate to call. Signed: Yumiko Titus MD, 12/05/2020, 9:30 PM MEDICAL FRONT DESK SPECIALIST CAL FRONT DESK SPECIALIST documented in this encounter Discharge Instructions * Attachments The following attachments cannot be sent through Care Everywhere. * Stroke, Discharge Instructions for (Bahraini) documented in this encounter Medications at Time [...] MD - 12/05/2020 10:09 AM CST [facility] ADMISSION HISTORY & PHYSICAL Anticipated Date of Discharge: 12/05/2020 Chief Complaint: Left facial droop HPI: Irma Seymour is a 40 y.o. female who presented to [facility] with complaints of left-sided facial numbness [...] palsy, Bronchitis, COPD (chronic obstructive pulmonary disease) ([facility]), Depression, Heart palpitations, Panic attack, Sleep difficulties, and Suicide attempt ([facility]) (09/2018). 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 ??? Anxiety ??? Asthma ??? Nava's palsy ??? Bronchitis ??? COPD (chronic obstructive pulmonary disease) ([facility]) ??? Depression ??? Heart palpitations ??? Panic attack ??? Sleep difficulties ??? Suicide attempt ([facility]) 09/2018 approx 1-2 years ago, [...] Flexors 5/5 5/5 Wrist Extensors 5/5 5/5 Client Technical Support Associate 5/5 5/5 Hip Flexors 5/5 5/5 Quadriceps [...] Dr. Raza at 0206 hours on 12/05/2020. CAL FRONT DESK SPECIALIST documented in this encounter ED Notes * Shauna Vora RN - 12/05/2020 4:39 AM CST Report called to Will on 2 . Patient transferred to room 227 via wheelchair. Remains alert andoriented x4. Respirations non labored. Denies any pain presently. Saline lock intact right forearm. CAL FRONT DESK SPECIALIST * Shauna Vora RN - 12/05/2020 4:00 AM CST Patient is resting in room with call light at bedside. Patient informed about wait time and verbalizes understanding. Patient denies needs at this time and verbalizes understanding that RN will complete hourly rounding. 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 PS: PS Report ID: [id number] Reading Location: [place] [address] CT HEAD OR BRAIN WO CONTRAST (Final [...] Raissa Raza D.O. PS: PS Report ID: [id number] Reading Location: [address] Number of Diagnoses or Management Options [...] Right ventricular conduction delay, normal axis, normal PA interval Clinical Impression 1. Left Lower facial [...] agreed for placing the patient in observation. CAL FRONT DESK SPECIALIST CAL FRONT DESK SPECIALIST * Shauna Vora RN - 12/05/2020 2:00 [...] Patient to CT scan initially via wheelchair. CAL FRONT DESK SPECIALIST documented in this encounter Miscellaneous Notes * Interdisciplinary - Ray Wan RN - 12/05/2020 10:56 PM CST Patient given AVS. Pt belonings with patient. Telemetry removed. IV removed. Pt leaving via privatevehicle. CAL FRONT DESK SPECIALIST * Plan of Care - Jossie Mcbride [...] Reduction or Resolution Outcome: Ongoing (see interventions/notes) CAL FRONT DESK SPECIALIST * Plan of Care - Sindy Colin MS CCC-DRY CELL AND BATTERY ASSEMBLER - 12/05/2020 2:12 PM MEDICAL FRONT DESK SPECIALIST Speech Pathology Cognitive/Linguistic Evaluation Order received for [...] palsy, Bronchitis, COPD (chronic obstructive pulmonary disease) ([facility]), Depression, Heart palpitations, Panicattack, Sleep difficulties, and Suicide attempt ([facility]) (09/2018). Plan of care reviewed with: patient [...] baseline medical condition. ?? Recommendations communicated with tunnel kiln operator: ?? Patient presented cognitive impairment as evidenced by testing on 12/05/2020 versus baseline. ?? No further skilled intervention warranted at this time. Visit Details: Visit Timing/Type Type of visit: Evaluation Rehab Discipline: DRY CELL AND BATTERY ASSEMBLER Start Time: 1345 Stop Time: 1410 Time [...] which indicates a min cognitive impairment. - [facility] Mental Status was administered to screen cognitive [...] jointly by Sofiya and SINDY COLIN, MS CCC-DRY CELL AND BATTERY ASSEMBLER , with qualified caregiver directing care through skilled judgment and taking responsibility for assessment and treatment. I have read and agree with student documentation by Sofiya on this date. Review of documentation includes Note, Doc flow sheet and associated functions to support documentation. I was present and actively involved in all aspects of Irma Seymour's care. SINDY COLIN MS CCC-DRY CELL AND BATTERY ASSEMBLER Problem: Adult Inpatient Plan of Care Goal: [facility] DRY CELL AND BATTERY ASSEMBLER GOAL Description: SLPSWALLOW Patient to be seen [...] evaluation to determine further intervention needs. 3- DRY CELL AND BATTERY ASSEMBLER to provide skilled verbal instruction to patient/family/staff regarding recommendations, precautions and strategies Outcome: Ongoing (see interventions/notes) CAL FRONT DESK SPECIALIST CAL FRONT DESK SPECIALIST CAL FRONT DESK SPECIALIST * Interdisciplinary - Mary Ellen Kong, PT - 12/05/2020 11:41 AM MEDICAL FRONT DESK SPECIALIST PHYSICAL THERAPY INITIAL EVALUATION AND DISCHARGE Pt. is a 40 y.o. female admitted 12/05/2020 for facial weakness. Physical Therapy was ordered on for Eval and Treat. Patient was seen 12/05/2020. Plan of Care reviewed with: patient Past Medical History: has a past medical history of Alcohol abuse, Anxiety, Asthma, Nava's palsy, Bronchitis, COPD (chronic obstructive pulmonary disease) ([facility]), Depression, Heart palpitations, Panicattack, Sleep difficulties, and Suicide attempt ([facility]) (09/2018). Past Surgical History: has no past [...] no(Patient reports she drives and works at [employer]. Patient reports being independent with cooking, cleaning, laundry.) Equipment Currently Used at Home: none Cognition Orientation Status (Cognition): oriented x 4 Follows Commands (Cognition): WFL ROM ROM Right Lower Extremity: RLE ROM was WNL ROM Lower Left Extremity: LLE ROM was WNL Strength Comprehensive (MMT) General Manual Muscle Testing (MMT) Assessment: no strength deficits identified Bed Mobility Bed Mobility: supine-sit, sit-supine Supine-Sit [place] (Bed Mobility): independent Sit-Supine [place] (Bed Mobility): independent Sit/Stand Transfer Level of Assistance (Sit-Stand Transfers): independent Level of Assistance (STAND/SIT): independent Gait Mobility [place] Level (Gait): independent Distance in Feet (Gait): [...] call light near. 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 There are 7 people in the home including herself, her parents, her brother, disabled sister, and her 2 kids. She is active and independent in all ADL's including meals, bathing, dressing, cooking, cleaning and driving. No home DME is used. Her PCP is Amyaa Kowlaski APN, SOLE TIER. Her insurance in Medicaid [place]. Her pharmacy is [facility] and has no difficulties obtaining medications. There [...] Payor is not Medicare Decision Maker / Copier Technician Information Patient is medical decision-maker CAL FRONT DESK SPECIALIST * Interdisciplinary - Nellie Finn, OTRL - 12/05/2020 10:31 AM MEDICAL FRONT DESK SPECIALIST OCCUPATIONAL THERAPY INITIAL EVALUATION and DISCHARGE Assessment: [...] palsy, Bronchitis, COPD (chronic obstructive pulmonary disease) ([facility]), Depression, Heart palpitations, Panicattack, Sleep difficulties, and Suicide attempt ([facility]) (09/2018). Past Surgical History: has no past [...] as shopping): no(Patient drives, patient works at [employer]) Equipment Currently Used at Home: none Cognition Affect/Mental Status (Cognitive): WFL Orientation Status (Cognition): oriented x 4 Follows Commands (Cognition): follows two step commands ROM ROM Upper Right Extremity: no ROM deficits were identified ROM Upper Left Extremity: no ROM deficits were identified Strength Comprehensive (MMT) General Manual Muscle Testing (MMT) Assessment: no strength deficits identified Bed Mobility Bed Mobility: [id number] Supine to Sit to Supine, Level of Assistance (Bed Mobility): independent Sit/Stand Transfer Level of Assistance (Sit-Stand Transfers): independent Level of Assistance (STAND/SIT): independent Toilet Transfer Type (Toilet Transfer): sit-stand, stand-sit Level of Assistance (Toilet Transfers): independent Gait Mobility Chariton Level (Gait): independent Assistive Device (Gait): gait [...] body dressing, grooming Lower Body Dressing Assessment/Training Char[place] Level (Lower Body Dressing): don, socks, independent Position (Lower Body Dressing): sitting up in bed Grooming Assessment/Training [place] Level (Grooming): wash face, hands, independent Position (Grooming): sink side General Comments: Good participation in OT evaluation, ADL and functional mobility. Modified [place] Scale score: 0 0 No symptoms at [...] Yumiko Titus MD at 12/05/2020 1:35 PM MEDICAL FRONT DESK SPECIALIST CAL FRONT DESK SPECIALIST CAL FRONT DESK SPECIALIST * Plan of Care - Sindy Colin, MS CCC-DRY CELL AND BATTERY ASSEMBLER - 12/05/2020 8:54 AM MEDICAL FRONT DESK SPECIALIST Speech Pathology Clinical Swallowing Evaluation Order received [...] palsy, Bronchitis, COPD (chronic obstructive pulmonary disease) ([facility]), Depression, Heart palpitations, Panicattack, Sleep difficulties, and Suicide attempt ([facility]) (09/2018). Positive drug screen in October 2020 [...] oral intake ?? Recommendations communicated with DALTON Sethitunnel kiln operator: ?? Patient presented with no overt evidence [...] Timing/Type Type of visit: Evaluation Rehab Discipline: DRY CELL AND BATTERY ASSEMBLER Start Time: 829 Stop Time: 844 Time [...] cough response To screen for aspiration, the [place] Swallow Protocol was used due to its [...] Risk Score: Nil abnormality detected (170-200) Education: DRY CELL AND BATTERY ASSEMBLER provided skilled verbal instruction to patient regarding rationale for skilled services, s/s ofdysphagia, evaluation performance and recommendations for care. Functional Outcome Measures Utilized: CHRIS Lozada Patient was left upright in bed with indicated alarms after therapy with call light and phone near. SINDY COLIN MS CCC-DRY CELL AND BATTERY ASSEMBLER Speech Language Pathologist 12/05/2020 Problem: Adult Inpatient Plan of Care Goal: [facility] DRY CELL AND BATTERY ASSEMBLER GOAL Description: SLPSWALLOW Patient to be seen [...] evaluation to determine further intervention needs. 3- DRY CELL AND BATTERY ASSEMBLER to provide skilled verbal instruction to patient/family/staff regarding recommendations, precautions and strategies Outcome: Ongoing (see interventions/notes) CAL FRONT DESK SPECIALIST * Interdisciplinary - Ray Wan, RN - 12/05/2020 4:54 AM CST Pt arrived to the floor via wheelchair. Pt ambulated to bed with SBA. Pt appears to be in no distress at this time. Will complete admission. CAL FRONT DESK SPECIALIST documented in this encounter Plan of Treatment Upcoming Encounters Date Type Department Care Team (Late st Contact Info) Description 03/21/2025 4:30 PM CDT Office Visit [facility] - Primary Care - [place] [address] [place] [address] AubreyShravan, PAC [address] [place] [phone] documented as of this encounter Goals Goal Patient Goal Type Associated Problems Recent Progress Patient-Stated? Author [facility] Behavioral Health On track(2019 9:50 [...] and past) that trigger mood concerns. Behavioral [facility] Behavioral Health On track(2019 9:50 [...] ORBIT/FACE/NECK W/WO CONTRAST Routine 12/05/2020 7:03 PM MEDICAL FRONT DESK SPECIALIST MRI BRAIN W/WO CONTRAST Routine 12/05/2020 7:02 PM MEDICAL FRONT DESK SPECIALIST POCT GLUCOSE Routine 12/05/2020 11:06 AM MEDICAL FRONT DESK SPECIALIST ADULT TRANS THORACIC ECHO 2D COMPLETE STAT 12/05/2020 8:35 AM MEDICAL FRONT DESK SPECIALIST OT EVALUATE AND TREAT Routine 12/05/2020 4:53 AM MEDICAL FRONT DESK SPECIALIST PT EVALUATE AND TREAT Routine 12/05/2020 4:53 AM MEDICAL FRONT DESK SPECIALIST SARS-COV-2 BY MOLECULAR STAT 12/05/2020 4:03 AM MEDICAL FRONT DESK SPECIALIST POCT URINE HCG () STAT 12/05/2020 2:51 AM MEDICAL FRONT DESK SPECIALIST URINALYSIS REFLEX IF INDICATED BY ABNORMAL RESULTS STAT 12/05/2020 2:49 AM MEDICAL FRONT DESK SPECIALIST XR CHEST SINGLE VIEW PORTABLE STAT 12/05/2020 2:13 AM MEDICAL FRONT DESK SPECIALIST EKG 12 LEAD STAT 12/05/2020 2:04 AM MEDICAL FRONT DESK SPECIALIST EXTRA TUBES STAT 12/05/2020 2:03 AM MEDICAL FRONT DESK SPECIALIST HEMOGLOBIN A1C W/ ESTIMATED GLUCOSE Routine 12/05/2020 2:03 AM MEDICAL FRONT DESK SPECIALIST MINT CLARA GARCIA HEPARIN/SST TOP TUBE STAT 12/05/2020 2:03 AM MEDICAL FRONT DESK SPECIALIST GOLD TOP TUBE STAT 12/05/2020 2:03 AM MEDICAL FRONT DESK SPECIALIST BLUE TOP TUBE STAT 12/05/2020 2:03 AM MEDICAL FRONT DESK SPECIALIST LAVENDER TOP TUBE STAT 12/05/2020 2:0 3 AM MEDICAL FRONT DESK SPECIALIST CBC WITH AUTO DIFFERENTIAL STAT 12/05/2020 2:03 AM MEDICAL FRONT DESK SPECIALIST MAGNESIUM (MG) Routine 12/05/2020 2:03 AM MEDICAL FRONT DESK SPECIALIST LIPID PANEL Routine 12/05/2020 2:03 AM MEDICAL FRONT DESK SPECIALIST CMP (COMPREHENSIVE METABOLIC PANEL) STAT 12/05/2020 2:03 AM MEDICAL FRONT DESK SPECIALIST COMPLETE BLOOD COUNT (CBC) WITH DIFF STAT 12/05/2020 2:03 AM MEDICAL FRONT DESK SPECIALIST C-REACTIVE PROTEIN (CRP) QUANT Routine 12/05/2020 2:03 AM MEDICAL FRONT DESK SPECIALIST CT HEAD OR BRAIN WO CONTRAST STAT 12/05/2020 1:59 AM MEDICAL FRONT DESK SPECIALIST POCT GLUCOSE STAT 12/05/2020 1:51 AM MEDICAL FRONT DESK SPECIALIST documented in this encounter Results * MRI ORBIT/FACE/NECK W/WO CONTRAST (12/05/2020 7:03 PM MEDICAL FRONT DESK SPECIALIST) Anatomical Region Laterality Modality Head, Neck N/A Magnetic Resonan ce 12/05/2020 8:37 PM MEDICAL FRONT DESK SPECIALIST Impressions 12/05/2020 8:39 PM MEDICAL FRONT DESK SPECIALIST IMPRESSION: ?? Findings suggestive of an early subperiosteal/periapical abscess likely associated with the left maxillary 1st molar. ??Recommend dental consultation. Narrative 12/05/2020 8:39 PM MEDICAL FRONT DESK SPECIALIST EXAM DESCRIPTION: ?? MRI ORBIT/FACE/NECK W/WO CONTRAST [...] PM T: ??12/05/2020 8:37 PM Report ID: [id number] Reading Location: ??[id number] Procedure Note Colby Delgado, DO - 12/05/2020 [...] by Colby Delgado MF: [email or web address] Report ID: [id number] Reading Location: [id number] IMPRESSION: Findings suggestive of an early subperiosteal/periapical abscess likely associated with the left maxillary 1st molar. Recommend dental consultation. us Jett Sanders MD [facility] MR ORDERABLES Final Resu lt * MRI BRAIN W/WO CONTRAST (12/05/2020 7:02 PM MEDICAL FRONT DESK SPECIALIST) Anatomical Region Laterality Modality Head N/A Magnetic Resonan ce 12/05/2020 8:30 PM MEDICAL FRONT DESK SPECIALIST Impressions 12/05/2020 8:33 PM MEDICAL FRONT DESK SPECIALIST IMPRESSION: ??Mildly limited exam due to motion artifact. ??No acute intracranial abnormality. ??Unremarkable MRI of the brain with and without contrast. Narrative 12/05/2020 8:33 PM MEDICAL FRONT DESK SPECIALIST EXAM DESCRIPTION: ?? MRI BRAIN W/WO CONTRAST [...] PM T: ??12/05/2020 8:30 PM Report ID: [id number] Reading Location: ??[id number] Procedure Note Colby Delgado, DO - 12/05/2020 [...] by Colby Delgado MF: [email or web address] Report ID: [id number] Reading Location: [place] [address] IMPRESSION: Mildly limited exam due to motion artifact. No acute intracranial abnormality. Unremarkable MRI of the brain with and without contrast. us Yumiko Titus MD IMG MR ORDERABLES Final Result * POCT Glucose (12/05/2020 11:06 AM MEDICAL FRONT DESK SPECIALIST) Only the most recent of2 resultswithin the time period is included. [facility] GLUCOSE,BEDSIDE POCT 91 70 - 99 mg/dL 12/05/2020 11:12 AM MEDICAL FRONT DESK SPECIALIST [facility] Blood 12/05/2020 11:0 6 AM MEDICAL FRONT DESK SPECIALIST 12/05/2020 11:12 AM MEDICAL FRONT DESK SPECIALIST None Provider POINT OF CARE TESTING Final Resu lt [facility] [address] [place] [address] * ADULT TRANS THORACIC ECHO 2D COMPLETE (12/05/2020 8:35 AM MEDICAL FRONT DESK SPECIALIST) [facility] AV Peak Grad mmHg 9.12 mmHg RESULTING [...] CARDIO N/A Ultrasound Narrative 12/05/2020 2:59 PM MEDICAL FRONT DESK SPECIALIST Transthoracic Echocardiography Report (TTE) Patient name ?SACHIN Cat ? 1980 Patient ID ([facility]) ?[id number] ? Study Date12/05/2020 Technical quality: Good visualization [...] (BSA) ? 23.46 kg/m^2 (1.62 ? m^2) Visual Merchandising Assistant ?Gerry Salomon ??Room ?227 Interpreting ? Saray Castellano MD, Referring Physician ?FACC ? Physician ?Saray Oviedo Procedure Note Nona So MD - 12/05/2020 Transthoracic Echocardiography Report (TTE) Patient name SACHIN Cat Jazmín 1980 Patient ID (UPI) [id number] Study Date12/05/2020 Technical quality: Good visualization Type [...] lbs. BMI (BSA) 23.46 kg/m^2 (1.62 m^2) Visual Merchandising Assistant Gerry Henry 227 Interpreting Saray Castellano MD, Referring Physician [facility] Physician Saray Oviedo us Jaya Simpson JOURNEYMAN PAINTER, SOLE TIER IMG ECHO ORDERABLES Conor abel Result - Final * SARS-COV-2 BY MOLECULAR (12/05/2020 4:03 AM MEDICAL FRONT DESK SPECIALIST) SARSCOV2 NOT DETECTED (Referen ce Range for this test is Not Detected ) [facility] THERMOFISHER FAST DX 12/05/2020 7:46 PM MEDICAL FRONT DESK SPECIALIST [facility] Comment:This test was perfor med by a PCR method. Other NASOPHARYNGEAL STRUCTURE / Unknown Non-Phlebotomy Collection / Unknown 12/05/2020 4:03 AM MEDICAL FRONT DESK SPECIALIST 12/05/2020 4:11 AM MEDICAL FRONT DESK SPECIALIST Narrative [facility] - 12/05/2020 7:46 PM MEDICAL FRONT DESK SPECIALIST Authorized Fact Sheets about this test for providers and patients are available at: https://www.fda.gov/medical-devices/abwkndogj-itpqwfrqeg-ocygsjg-devices/emergen -us e-authorizations Kris Severino MD MICROBIOLOGY - GENERAL OR DERABLES Final Result [facility] [address] [place] [address], * POCT Urine HCG () (12/05/2020 2:51 AM MEDICAL FRONT DESK SPECIALIST) Pathologist [facility] POC URINE Negative POC URINE CONTROL Rap Artist Pass Urine 12/05/2020 2:51 AM MEDICAL FRONT DESK SPECIALIST Kris Severino MD POINT OF CARE TESTING (MA NUAL) Final Result * (ABNORMAL) Urinalysis Reflex if Indicated by Abnormal Results (12/05/2020 2:49 AM MEDICAL FRONT DESK SPECIALIST) Pathologist [facility] SPECIFIC GRAVITY 1.005 1.003 - 1.030 12/05/2020 3:59 AM MEDICAL FRONT DESK SPECIALIST [facility] URINE PH 6.0 5.0 - 9.0 12/05/2020 3:59 AM MEDICAL FRONT DESK SPECIALIST [facility] WBC ESTERASE Negative Negative 12/05/2020 3:59 AM MEDICAL FRONT DESK SPECIALIST [facility] NITRITE Negative Negative 12/05/2020 3:59 AM MEDICAL FRONT DESK SPECIALIST [facility] PROTEIN, RANDOM URINE Negative Negative 12/05/2020 3:59 AM MEDICAL FRONT DESK SPECIALIST [facility] URINE GLUCOSE, QUAL Negative Negative 12/05/2020 3:59 AM MEDICAL FRONT DESK SPECIALIST [facility] URINE KETONES 50 mg/dL(A) Negative 12/05/2020 3:59 AM MEDICAL FRONT DESK SPECIALIST [facility] UROBILINOGEN Normal Normal mg/dL 12/05/2020 3:59 AM MEDICAL FRONT DESK SPECIALIST [facility] URINE BILIRUBIN Negative Negative 3:59 AM MEDICAL FRONT DESK SPECIALIST [facility] URINE BLOOD Negative Negative papi/ul 12/05/2020 3:59 AM MEDICAL FRONT DESK SPECIALIST [facility] URINALYSIS COLOR Yellow 12/05/19 3:59 AM MEDICAL FRONT DESK SPECIALIST [facility] URINALYSIS CLARITY Clear 12/05/2020 3:59 AM MEDICAL FRONT DESK SPECIALIST [facility] Urine URINE SPECIMEN / Unknown Non-Phlebotomy Collection / Unknown 12/05/2020 2:49 AM MEDICAL FRONT DESK SPECIALIST 12/05/2020 3:38 AM MEDICAL FRONT DESK SPECIALIST us Kris Severino MD URINE ORDERABLES Final Re sult [facility] [place] [address] * XR CHEST SINGLE VIEW PORTABLE (12/05/2020 2:13 AM MEDICAL FRONT DESK SPECIALIST) Anatomical Region Laterality Modality Chest N/A Digital Radiogra phy 12/05/2020 2:21 AM MEDICAL FRONT DESK SPECIALIST Impressions 12/05/2020 2:24 AM MEDICAL FRONT DESK SPECIALIST IMPRESSION: ?? No acute cardiopulmonary disease. Narrative 12/05/2020 2:24 AM MEDICAL FRONT DESK SPECIALIST EXAM DESCRIPTION: ?? XR CHEST SINGLE VIEW [...] Raissa Raza D.O. PS: PS D: ??12/05/2020 2:21 AM T: ??12/05/2020 2:21 AM Report ID: [id number] Reading Location: ??[id number] Procedure Note Raissa Raza DO - 12/05/2020 [...] Raissa Raza D.O. PS: PS Report ID: [id number] Reading Location: [id number] IMPRESSION: No acute cardiopulmonary disease. Kris Severino MD IMG DIAGNOSTIC ORDERABLES Final Result * EKG 12 LEAD (12/05/2020 2:04 AM MEDICAL FRONT DESK SPECIALIST) Ventricular Rate BPM EXTERNAL EKG Atrial Rate BPM EXTERNAL EKG P-R Interval 120 ms EXTERNAL EKG QRS Duration 82 ms EXTERNAL EKG Q-T Duration 326 ms EXTERNAL EKG QTC CALCULATION 421 ms EXTERNAL EKG P [place] 46 degrees EXTERNAL EKG R [place] 31 degrees EXTERNAL EKG T [place] 46 degrees EXTERNAL EKG 12/05/2020 2:04 AM MEDICAL FRONT DESK SPECIALIST Impressions EXTERNAL EKG - 12/05/2020 10:11 AM MEDICAL FRONT DESK SPECIALIST Sinus tachycardia Septal ST abnormality is nonspecific iRBBB Comparison Summary: Descriptive differences only Summary: Borderline ECG Compared with:09/07/2019 11:13 AM Rate faster iRBBB new Confirmed by Saray Oviedo [id number] on 12/05/2020 10:11:12 AM Narrative Procedure Note Nona So MD - 12/05/2020 IMPRESSION: Sinus tachycardia Septal ST abnormality is nonspecific iRBBB Comparison Summary: Descriptive differences only Summary: Borderline ECG Compared with:09/07/2019 11:13 AM Rate faster iRBBB new Confirmed by Saray Oviedo [id number] on 12/05/2020 10:11:12 AM Kris Severino MD IMG ECG ORDERABLES Final Result Performing Organization Address City/[facility]/ZIP Co de Phone Number EXTERNAL EKG * MAGNESIUM (MG) (12/05/2020 2:03 AM MEDICAL FRONT DESK SPECIALIST) MAGNESIUM 1.9 1.8 - 2.5 mg/dL 12/05/2020 6:16 PM MEDICAL FRONT DESK SPECIALIST [facility] Blood Venipuncture / Unknown 12/05/2020 2:03 AM MEDICAL FRONT DESK SPECIALIST 12/05/2020 2:09 AM MEDICAL FRONT DESK SPECIALIST Yumiko Titus MD CHEMISTRY ORDERABLES Final Res ult Performing Organization Address City/[facility]/ZIP Co de Phone Number [facility] [address] [place] [address] * (ABNORMAL) C-Reactive Protein (CRP) Quant (12/05/2020 2:03 AM MEDICAL FRONT DESK SPECIALIST) C-REACTIVE PROTEIN 4.36(H) <0.50 mg/dL 12/05/2020 10:06 AM MEDICAL FRONT DESK SPECIALIST [facility] Blood Venipuncture / Unknown 12/05/2020 2:03 AM MEDICAL FRONT DESK SPECIALIST 12/05/2020 2:09 AM MEDICAL FRONT DESK SPECIALIST Yumiko Titus MD CHEMISTRY ORDERABLES Final Res ult Performing Organization Address [facility] Co de Phone Number [facility] [address] [place] [address] * Hemoglobin A1C (12/05/2020 2:03 AM MEDICAL FRONT DESK SPECIALIST) HGB-A1C 5.1 4.0 - 6.0 % 12/05/2020 6:37 AM MEDICAL FRONT DESK SPECIALIST [facility] Est Average Glucose 99.7 mg/dL 12/05/2020 6:37 AM MEDICAL FRONT DESK SPECIALIST [facility] Blood Venipuncture / Unknown 12/05/2020 2:03 AM MEDICAL FRONT DESK SPECIALIST 12/05/2020 2:11 AM MEDICAL FRONT DESK SPECIALIST Narrative [facility] - 12/05/2020 6:37 AM MEDICAL FRONT DESK SPECIALIST HEMOGLOBIN A1C: DIABETIC PATIENTS: WELL-CONTROLLED: ?? 6.2 - 7.0 INTERMEDIATE WELL-CONTROLLED: ??7.0 - 9.0 POORLY-CONTROLLED: ??>9.0 Jaya Simpson JOURNEYMAN PAINTER, SOLE TIER CHEMISTRY ORDERABLES Fi nal Result Performing Organization Address [facility] Co de Phone Number [facility] [address] [place] [address] * Lipid Panel (12/05/2020 2:03 AM MEDICAL FRONT DESK SPECIALIST) CHOLESTEROL 160 <=200 mg/dL 12/05/2020 6:35 AM MEDICAL FRONT DESK SPECIALIST [facility] TRIGLYCERIDES 82 <150 mg/dL 12/05/2020 6:35 AM MEDICAL FRONT DESK SPECIALIST [facility] HDL CHOLESTEROL 63.1 >40 mg/dL 6:35 AM MEDICAL FRONT DESK SPECIALIST [facility] LDL 81 5 - 130 mg/dL 12/05/2020 6:35 AM MEDICAL FRONT DESK SPECIALIST [facility] VLDL 16 5 - 55 mg/dL 12/05/2020 6:35 AM MEDICAL FRONT DESK SPECIALIST [facility] CHOL/HDL RATIO 2.5 0.0 - 4.4 12/05/2020 6:35 AM MEDICAL FRONT DESK SPECIALIST [facility] NON-HDL CHOLESTEROL 96.9 <130 mg/dL 12/05/2020 6:35 AM MEDICAL FRONT DESK SPECIALIST [facility] Blood Venipuncture / Unknown 12/05/2020 2:03 AM MEDICAL FRONT DESK SPECIALIST 12/05/2020 2:11 AM MEDICAL FRONT DESK SPECIALIST Jaya Simpson JOURNEYMAN PAINTER, SOLE TIER CHEMISTRY ORDERABLES Fi nal Result Performing Organization Address City/[facility]/ZIP Co de Phone Number [facility] [address] [place] [address] * CLARA LISA HEPARIN/SST TOP TUBE (12/05/2020 2:03 AM MEDICAL FRONT DESK SPECIALIST) Blood Venipuncture / Unknown 12/05/2020 2:03 AM MEDICAL FRONT DESK SPECIALIST 12/05/2020 2:11 AM MEDICAL FRONT DESK SPECIALIST Kirs Severino MD HEMATOLOGY ORDERABLES Fin al Result Performing Organization Address City/[facility] Co de Phone Number [facility] [address] [place] [address] * Lavender Top Tube (12/05/2020 2:03 AM MEDICAL FRONT DESK SPECIALIST) Blood Venipuncture / Unknown 12/05/2020 2:03 AM MEDICAL FRONT DESK SPECIALIST 12/05/2020 2:11 AM MEDICAL FRONT DESK SPECIALIST Kris Severino MD HEMATOLOGY ORDERABLES Fin al Result [facility] [address] [place] [address] * Gold Top Tube (12/05/2020 2:03 AM MEDICAL FRONT DESK SPECIALIST) Blood Venipuncture / Unknown 12/05/2020 2:03 AM MEDICAL FRONT DESK SPECIALIST 12/05/2020 2:11 AM MEDICAL FRONT DESK SPECIALIST Kris Severino MD CHEMISTRY ORDERABLES Kaylin l Result Performing Organization Address City/[facility]/ZIP Co de Phone Number [facility] [address] [place] [address] * Blue Top Tube (12/05/2020 2:03 AM MEDICAL FRONT DESK SPECIALIST) Blood Venipuncture / Unknown 12/05/2020 2:03 AM MEDICAL FRONT DESK SPECIALIST 12/05/2020 2:11 AM MEDICAL FRONT DESK SPECIALIST Kris Severino MD HEMATOLOGY ORDERABLES Fin al Result Performing Organization Address City/[facility]/ZIP Co de Phone Number [facility] [address] [place] [address] * (ABNORMAL) CBC with Auto Differential (12/05/2020 2:03 AM MEDICAL FRONT DESK SPECIALIST) WBC 17.81(H) 4.00 - 12.00 10(3)/mcL 12/05/2020 2:13 AM MEDICAL FRONT DESK SPECIALIST [facility] RBC 4.64 3.80 - 5.30 10(6)/mcL 12/05/2020 2:[address] [facility] HEMOGLOBIN (HGB) 14.7 12.0 - 15.8 g/dL 12/05/2020 2:[address] [facility] HEMATOCRIT (HCT) 44.2 36.0 - 47.0 % 12/05/2020 2:13 AM MEDICAL FRONT DESK SPECIALIST [facility] MCV 95.3 82.0 - 96.0 fL 12/05/2020 2:13 AM MEDICAL FRONT DESK SPECIALIST [facility] MCH 31.7 26.0 - 34.0 pg 12/05/2020 2:13 AM MEDICAL FRONT DESK SPECIALIST [facility] MCHC 33.3 31.0 - 36.0 g/dL 12/05/2020 2:13 AM MEDICAL FRONT DESK SPECIALIST [facility] PLATELET COUNT 247 140 - 440 10(3)/mcL 12/05/2020 2:13 AM MEDICAL FRONT DESK SPECIALIST [facility] RDW 12.4 11.8 - 15.5 % 12/05/2020 2:[address] [facility] MPV 12.0 9.7 - 12.4 fL 12/05/2020 2:[address] [facility] NEUTROPHILS 72.2 47.0 - 73.0 % 12/05/2020 2:[address] [facility] LYMPHOCYTES 18.7 18.0 - 42.0 % 12/05/2020 2:[address] [facility] MONOCYTES 8.1 4.0 - 12.0 % 12/05/2020 2:[address] [facility] EOSINOPHILS 0.8 0.0 - 5.0 % 12/05/2020 2:[address] [facility] BASOPHILS 0.2 0.0 - 1.0 % 12/05/2020 2:[address] [facility] ABSOLUTE NEUTROPHILS 12.85(H) 1.60 - 7.70 10(3)/[facility] 12/05/2020 2:[address] [facility] ABSOLUTE LYMPHOCYTES 3.33(H) 1.30 - 3.20 10(3)/[facility] 12/05/2020 2:[address] [facility] ABSOLUTE MONOCYTES 1.45(H) 0.20 - 1.00 10(3)/[facility] 12/05/2020 2:[address] [facility] ABSOLUTE EOSINOPHIL 0.14 0.00 - 0.40 10(3)/[facility] 12/05/2020 2:[address] [facility] ABSOLUTE BASOPHILS 0.04 0.00 - 0.10 10(3)/[facility] 12/05/2020 2:[address] [facility] NRBC PER 100 WBC 0 12/05/19 2:[address] [facility] Blood Venipuncture / Unknown 12/05/2020 2:03 AM MEDICAL FRONT DESK SPECIALIST 12/05/2020 2:10 AM MEDICAL FRONT DESK SPECIALIST us Kris Severino MD HEMATOLOGY ORDERABLES Fin al Result [facility] [address] [place] [address] * (ABNORMAL) Comprehensive Metabolic Panel (CMP) (12/05/2020 2:03 AM MEDICAL FRONT DESK SPECIALIST) SODIUM 130(L) 136 - 144 mmol/L 12/05/2020 2:34 AM MEDICAL FRONT DESK SPECIALIST [facility] POTASSIUM 3.3(L) 3.5 - 5.1 mmol/L 12/05/2020 2:[address] [facility] CHLORIDE 95(L) 100 - 110 mmol/L 12/05/2020 2:[address] [facility] CO2, VENOUS 21(L) 22 - 32 mmol/L 12/05/2020 2:[address] [facility] ANION GAP 17.3 8.0 - 20.0 mmol/L 12/05/2020 2:[address] [facility] GLUCOSE 94 70 - 99 mg/dL 12/05/2020 2:[address] [facility] BUN 14 6 - 20 mg/dL 12/05/2020 2:[address] [facility] CREATININE, BLOOD 0.73 0.60 - 1.10 mg/dL 12/05/2020 2:[address] [facility] BUN/CREATININE RATIO 19 12 - 20 ratio 12/05/2020 2:[address] [facility] TOTAL PROTEIN 8.2 6.0 - 8.3 g/dL 12/05/2020 2:[address] [facility] ALBUMIN 4.6 3.5 - 5.2 g/dL 12/05/2020 2:[address] [facility] Comment: The colormetric methods used for the determination of Albumin may lead to falsely elevated test results in patients suffering from renal failure or insufficiency due to interference with other proteins. A/G RATIO 1.3 1.0 - 2.0 12/05/2020 2:[address] [facility] CALCIUM 9.4 8.9 - 10.3 mg/dL 12/05/2020 2:34 AM MEDICAL FRONT DESK SPECIALIST [facility] T BILI 0.9 <=1.2 mg/dL 12/05/2020 2:34 AM MEDICAL FRONT DESK SPECIALIST [facility] SGOT (AST) 24 <=32 U/L 12/05/2020 2:34 AM MEDICAL FRONT DESK SPECIALIST [facility] SGPT (ALT) 8 <=41 U/L 12/05/2020 2:34 AM MEDICAL FRONT DESK SPECIALIST [facility] ALKALINE PHOSPHATASE 91 35 - 105 U/L 12/05/2020 2:34 AM MEDICAL FRONT DESK SPECIALIST [facility] GFR, EST. NONAFRICAN >60 >=60 12/05/2020 2:34 AM MEDICAL FRONT DESK SPECIALIST [facility] GFR, EST. >60 >=60 021 2:34 AM MEDICAL FRONT DESK SPECIALIST [facility] Comment: Creatinine Clearance is the preferred criteria for selecting drug dose adjustments in renally impaired patients. ??The GFR is provided as additional pertinent clinical information. GFR is reported in mL/min/1.73 sq m. Blood Venipuncture / Unknown 12/05/2020 2:03 AM MEDICAL FRONT DESK SPECIALIST 12/05/2020 2:09 AM MEDICAL FRONT DESK SPECIALIST Kris Severino MD CHEMISTRY ORDERABLES Kaylin l Result [facility] [address] [place] [address] * CT HEAD OR BRAIN WO CONTRAST (12/05/2020 1:59 AM MEDICAL FRONT DESK SPECIALIST) Anatomical Region Laterality Modality Head N/A Computed Tomogra phy 12/05/2020 2:07 AM MEDICAL FRONT DESK SPECIALIST Impressions 12/05/2020 2:10 AM MEDICAL FRONT DESK SPECIALIST IMPRESSION: ?? 1. ??No definite evidence of acute intracranial hemorrhage. ??If there is clinical concern for acute ischemia, then further evaluation with MRI is recommended. Findings were discussed with Dr. Severino by Dr. Raza at 0206 hours on 12/05/2020. Narrative 12/05/2020 2:10 AM MEDICAL FRONT DESK SPECIALIST EXAM DESCRIPTION: ?? CT HEAD OR BRAIN [...] AM T: ??12/05/2020 2:07 AM Report ID: [id number] Reading Location: ??[id number] Procedure Note Raissa Raza DO - 12/05/2020 [...] Raissa Raza D.O. PS: PS Report ID: [id number] Reading Location: [id number] IMPRESSION: 1. No definite evidence of acute [...] at 1746 New Bag 12/05/2020 5:44 AM MEDICAL FRONT DESK SPECIALIST 100 mL/hr acetaminophen (TYLENOL) suppository 650 mg 650 mg, Rectal, EVERY 4 HOURS PRN, Starting on Cassandra 12/05/20 at 0454, Until Wed12/06/20 at 0059, Mild pain or more severe pain if patient requests, Fever, If patient is taking oral intake without complications and both PO/PA orders are active, administer through the oral route. acetaminophen (TYLENOL) tablet 650 mg 650 mg, Oral, EVERY 4 HOURS PRN, Starting on Cassandra 12/05/20 at 0454, Until Wed12/06/20 at 0059, Mild pain or more severe pain if patient requests, Fever, If patient is taking oral intake without complications and both PO/PA orders are active, administer through the oral route. aspirin chewable tablet 81 mg 81 mg, Oral, DAILY, First dose on Cassandra 12/05/20 at 0900, Until Discontinued Given 12/05/2020 8:43 AM MEDICAL FRONT DESK SPECIALIST 81 mg aspirin suppository 300 mg 300 mg, Rectal, ONCE, 1 dose, On Cassandra 12/05/20 at 0300 Given 12/05/2020 3:00 AM MEDICAL FRONT DESK SPECIALIST 300 mg aspirin suppository 300 mg 300 [...] of Venous Thromboembolism Given 12/05/2020 8:43 AM MEDICAL FRONT DESK SPECIALIST 40 mg Left Abdomen gadoteridol (PROHANCE) injection 13 mL 13 mL, Intravenous, ONCE, 1 dose, On Cassandra 12/05/20 at 1930 Given 12/05/2020 6:10 PM MEDICAL FRONT DESK SPECIALIST 13 mL HYDROcodone-acetaminophen (NORCO) 5-325 MG per [...] 2) increasing dosage, or 3) changing to FRONT SIGHT ATTACHER. morphine sulfate (PF) injection 2 mg 2 [...] at 0530 New Bag 12/05/2020 5:45 AM MEDICAL FRONT DESK SPECIALIST 40 mEq potassium chloride SA (KLORCON M) tablet 40 mEq 40 mEq, Oral, ONCE, 1 dose, On Cassandra 12/05/20 at 1830, Do not crush. Given 12/05/2020 7:01 PM MEDICAL FRONT DESK SPECIALIST 40 mEq documented in this encounter Active and Recently Administered Medications Times are shown in MEDICAL FRONT DESK SPECIALIST. Scheduled Medication Order 12/03/2020 12/04/2020 12/05/2020 aspirin [...] taking oral intake without complications and both PO/PA orders are active, administer through the oral route. acetaminophen (TYLENOL) tablet 650 mg(Linked Group 2) 650 mg, Oral, EVERY 4 HOURS PRN, Starting on Cassandra 12/05/20 at 0454, Until Wed12/06/20 at 0059, Mild pain or more severe pain if patient requests, Fever, If patient is taking oral intake without complications and both PO/PA orders are active, administer through the oral [...] 2) increasing dosage, or 3) changing to FRONT SIGHT ATTACHER. morphine sulfate (PF) injection 2 mg 2 [...] taking oral intake without complications and both PO/PA orders are active, administer through the oral route. Or acetaminophen (TYLENOL) suppository 650 mgJump to med 650 mg, Rectal, EVERY 4 HOURS PRN, Starting on Cassandra 12/05/20 at 0454, Until Wed12/06/20 at 0059, Mild pain or more severe pain if patient requests, Fever, If patient is taking oral intake without complications and both PO/PA orders are active, administer through the oral [...] documented as of this encounter Care Teams Mine Production Engineer Relationship Specialty Start Date End Date Amaya Kowalski, JOURNEYMAN PAINTER, SOLE TIER [address] [place] [address] PCP - General Advanced Practice Nurse 06/10/18 documented as of this encounter
--- OUTSIDE RECORDS SUMMARY | 2024-11-30 18:11 | XMS_ITS | Encounter Summary ---
Author Organization [employer] Care Team Providers Care Hog Room Supervisor Name Role Phone Amaya Kowalski APRN, DIRT CONTRACTOR Primary Care Provider Encounter Details Date Type Department Care Team (Latest Contact Info) Description 12/05/2020 Travel Social History Tobacco Use Types Packs/Day [...] Coronavirus / COVID-19? Yes 12/05/2020 3:55 AM CENTER HUMAN RESOURCES MANAGER documented as of this encounter Plan of Treatment Upcoming Encounters Date Type Department Care Team (Late st Contact Info) Description 03/21/2025 4:30 PM CDT Office Visit [facility] - [place] [address] [place] [address] Shravan Burgos, PAPI [address] [place] [address] documented as of this encounter Goals Goal Patient Goal Type Associated Problems Recent Progress Patient-Stated? Author [facility] On track(2019 9:50 AM CDT) [...] past) that trigger mood concerns. [facility] On track(2019 9:50 AM [...] documented as of this encounter Care Teams Hog Room Supervisor Relationship Specialty Start Date End Date Amaya Kowalski APRN, DIRT CONTRACTOR [address] [place] [address] PCP - General Advanced Practice Nurse 06/10/18 documented as of this encounter
--- OUTSIDE RECORDS SUMMARY | 2024-11-30 18:11 | XMS_ITS | Encounter Summary ---
Author Organization [facility] Address [address] [place] [address] Phone Care Team Providers Care Buttonhole Marker Name Role Phone Amaya Kowalski APRN, INFORMATION TECHNOLOGY ASSOCIATE Primary Care Provider Reason for Visit * Reason Comments Cough Encounter Details Date Type Department Care Team ([facility] st Contact Info) Description 10/11/2020 1:56 PM SALES ENGINEER ENGINEERED PRODUCTS - 10/11/2020 3:43 PM SALES ENGINEER ENGINEERED PRODUCTS Emergency [facility] Emergency [address] [place] [address] Rajeev Babb, PAC [address] [place] [address] Viral URI with cough Discharge Disposition: Discharged [...] COVID-19? No / Unsure 10/11/2020 12:13 PM SALES ENGINEER ENGINEERED PRODUCTS documented as of this encounter Last Filed Vital Signs Vital Sign Reading Time Taken Comments Blood Pressure 120/85 10/11/2020 3:30 PM SALES ENGINEER ENGINEERED PRODUCTS Pulse 76 10/11/2020 3:30 PM SALES ENGINEER ENGINEERED PRODUCTS Temperature 36.4 ??C (97.6 ??F) 10/11/2020 1:53 PM CS T Respiratory Rate 18 10/11/2020 3:30 PM SALES ENGINEER ENGINEERED PRODUCTS Oxygen Saturation 97% 10/11/2020 3:30 PM SALES ENGINEER ENGINEERED PRODUCTS Inhaled Oxygen Concentration - - Weight 62.6 kg (138 lb) 10/11/2020 1:53 PM SALES ENGINEER ENGINEERED PRODUCTS Height 160 cm (5' 3 ) 10/11/2020 1:53 PM SALES ENGINEER ENGINEERED PRODUCTS Body Mass Index 24.45 10/11/2020 1:53 PM SALES ENGINEER ENGINEERED PRODUCTS documented in this encounter Discharge Instructions * Attachments The following attachments cannot be sent through Care Everywhere. * URI, Viral, No Abx (Adult) (Vincentian) documented in this encounter Medications at Time [...] per ambulatory mode with self as responsible libertarian. S ENGINEER ENGINEERED PRODUCTS * Jacinta Layne RN - 10/11/2020 3:03 PM CST Pt medicated per provider orders. Pt educated on intended effects and side effects of medication and verbalized understanding, able to provide teach back of education. S ENGINEER ENGINEERED PRODUCTS * Rajeev Babb PAC - 10/11/2020 2:24 PM CST Chief Complaint Patient presents with ??? Cough Irma Seymour is a 40 y.o. female with anxiety, asthma, COPD, panic attack, who presents to the EDc/o cough, chest congestion, SOB x 4 days. 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 Uses nebulizer and inhaler at home without relief. History of bronchitis. Denies any fevers. Currently afebrile. S ENGINEER ENGINEERED PRODUCTS documented in this encounter Plan of Treatment Upcoming Encounters Date Type Department Care Team (Late st Contact Info) Description 03/21/2025 4:30 PM CDT Office Visit [facility] - Primary Care - [place] [address] [place] [address] Shravan Burgos, PAC [address] [place] [address] documented as of this encounter Goals Goal Patient Goal Type Associated Problems Recent Progress Patient-Stated? Author Behavioral Health Behavioral Health On track(2019 9:50 AM CDT) Yes Morgan, Eloise E, ADMINISTRATIVE ANALYST Note: Irma reported her goal for psychotherapy [...] SARS-COV-2 BY MOLECULAR STAT 10/11/2020 3:45 PM SALES ENGINEER ENGINEERED PRODUCTS MDI TREATMENT RT-INITIAL STAT 10/11/2020 3:06 PM SALES ENGINEER ENGINEERED PRODUCTS XR CHEST SINGLE VIEW PORTABLE STAT 10/11/2020 2:33 PM SALES ENGINEER ENGINEERED PRODUCTS EKG 12 LEAD STAT 10/11/2020 2:02 PM SALES ENGINEER ENGINEERED PRODUCTS documented in this encounter Results * SARS-COV-2 BY MOLECULAR (10/11/2020 3:45 PM SALES ENGINEER ENGINEERED PRODUCTS) SARSCOV2 NOT DETECTED (Referenc e Range for this test is Not Detected) [facility] THERMOFISHER FAST DX 10/12/2020 11:02 PM SALES ENGINEER ENGINEERED PRODUCTS [facility] Swab NASOPHARYNGEAL STRUCTURE / Unknown Non-Phlebotomy Collection / Unknown 10/11/2020 3:45 PM SALES ENGINEER ENGINEERED PRODUCTS 10/11/2020 3:47 PM SALES ENGINEER ENGINEERED PRODUCTS Narrative [facility] - 10/12/2020 11:02 PM SALES ENGINEER ENGINEERED PRODUCTS Authorized Fact Sheets about this test for providers and patients are available at: https://www.fda.gov/medical-devices/rgaqrsthb-qldecnwvqg-dchddmz-devices/emergen cy-us e-authorizations us Rajeev Babb PAC MICROBIOLOGY - GENER AL ORDERABLES Final Result [facility] [address] [place] [address], [place] * XR CHEST SINGLE VIEW PORTABLE (10/11/2020 2:33 PM SALES ENGINEER ENGINEERED PRODUCTS) Anatomical Region Laterality Modality Chest N/A Digital Radiogra phy 10/11/2020 2:51 PM SALES ENGINEER ENGINEERED PRODUCTS Impressions 10/11/2020 2:54 PM SALES ENGINEER ENGINEERED PRODUCTS IMPRESSION: ?? No consolidation. Narrative 10/11/2020 2:54 PM SALES ENGINEER ENGINEERED PRODUCTS EXAM DESCRIPTION: ?? XR CHEST SINGLE VIEW [...] PM T: ??10/11/2020 2:51 PM Report ID: [id number] Reading Location: ??[id number] Procedure Note Moose Braxton MD - 10/11/2020 [...] signed by Moose Braxton : Report ID: [id number] Reading Location: [id number] IMPRESSION: No consolidation. Rajeev Babb PAC IMG DIAGNOSTIC ORDER MARK Final Result * EKG 12 LEAD (10/11/2020 2:02 PM SALES ENGINEER ENGINEERED PRODUCTS) Ventricular Rate BPM EXTERNAL EKG Atrial Rate BPM EXTERNAL EKG P-R Interval 124 ms EXTERNAL EKG QRS Duration 78 ms EXTERNAL EKG Q-T Duration 344 ms EXTERNAL EKG QTC CALCULATION 424 ms EXTERNAL EKG P Ellerbe 24 degrees EXTERNAL EKG R Ellerbe 18 degrees EXTERNAL EKG T Ellerbe 29 degrees EXTERNAL EKG 10/11/2020 2:02 PM SALES ENGINEER ENGINEERED PRODUCTS Impressions EXTERNAL EKG - 10/12/2020 12:22 PM SALES ENGINEER ENGINEERED PRODUCTS Sinus rhythm Within normal limits as previously Comparison Summary: No significant change Summary: Normal ECG Compared with:05/17/2020 heart rate has increased Confirmed by Mario Salomon [id number] on 10/12/2020 12:22:39 PM Narrative Procedure Note Ward Maritn MD - 10/12/2020 IMPRESSION: Sinus rhythm Within normal limits as previously Comparison Summary: No significant change Summary: Normal ECG Compared with:05/17/2020 heart rate has increased Confirmed by Mario Salomon [id number] on 10/12/2020 12:22:39 PM Navneet Garcia MD [...] return to Pharmacy Given 10/11/2020 3:06 PM SALES ENGINEER ENGINEERED PRODUCTS 2 Puffs predniSONE (DELTASONE) tablet 40 mg 40 mg, Oral, ONCE, 1 dose, On Wed10/11/20 at 1500 Given 10/11/2020 3:02 PM SALES ENGINEER ENGINEERED PRODUCTS 40 mg documented in this encounter Active and Recently Administered Medications Times are shown in SALES ENGINEER ENGINEERED PRODUCTS. Scheduled Medication Order 10/09/2020 10/10/2020 10/11/2020 albuterol [...] - 19 10/11/2020 10/11/2020 10/13/2020 8:16 AM SALES ENGINEER ENGINEERED PRODUCTS Assessment Noted Time PHQ-9 Depression Total Score: 13 020 2:00 PM CDT documented as of this encounter Care Teams Buttonhole Marker Relationship Specialty Start Date End Date Amaya Kowalski, EMULSION COATER, INFORMATION TECHNOLOGY ASSOCIATE [address] [place] [address] PCP - General Advanced Practice Nurse 06/10/18 documented as of this encounter
--- OUTSIDE RECORDS SUMMARY | 2024-11-30 18:11 | XMS_ITS | Encounter Summary ---
Author Organization [facility] Address [address] [place] [address] Phone Care Team Providers Care Project Control Manager Name Role Phone Amaya Kowalski APRN, FACING CUTTING MACHINE OPERATOR Primary Care Provider Encounter Details Date Type Department Care Team (Latest Contact Info) Description 10/15/2020 11:25 AM SHAREMILKER - 10/15/2020 11:59 PM SHAREMILKER Hospital Encounter [facility] - Medical Imaging - [place] [address] [place] [address] Larissa Koch APRN, FACING CUTTING MACHINE OPERATOR [address] [place] [address] Discharge Disposition: Discharged to home or Selfcare [...] Coronavirus / COVID-19? Yes 10/15/2020 10:41 AM SHAREMILKER documented as of this encounter Medications at [...] 03/21/2025 4:30 PM CDT Office Visit [facility] - Primary Care - [place] [address] [place] [address] Shravan Burgos PAC [address] [place] [address] documented as of [...] VIEWS Stat with Interpretation 10/15/2020 11:32 AM SHAREMILKER Cough documented in this encounter Results * XR CHEST 2 VIEWS (10/15/2020 11:32 AM SHAREMILKER) Anatomical Region Laterality Modality Chest N/A Digital Radiogra phy 10/15/2020 11:3 8 AM SHAREMILKER Impressions 10/15/2020 11:41 AM SHAREMILKER IMPRESSION: ?? 1. ??No acute cardiopulmonary process is identified. Narrative 10/15/2020 11:41 AM SHAREMILKER EXAM DESCRIPTION: ?? XR CHEST 2 VIEWS [...] AM T: ??10/15/2020 11:38 AM Report ID: [id number] Reading Location: ??[id number] Procedure Note Yadiel Valderrama, - 10/15/2020 EXAM [...] by Yadiel Valderrama D.O. : Report ID: [id number] Reading Location: [id number] IMPRESSION: 1. No acute cardiopulmonary process is identified. Larissa Koch APRN, DOUGLAS IMG DIAGNOSTIC OR DERABLES Final Result documented in this encounter Visit Diagnoses Diagnosis Cough documented in this encounter Additional Health Concerns Assessment Noted Time PHQ-9 Depression Total Score: 13 04/16/ 020 2:00 PM CDT documented as of this encounter Care Teams Project Control Manager Relationship Specialty Start Date End Date Amaya Kowalski APRN, FACING CUTTING MACHINE OPERATOR [address] [place] [address] PCP - General Advanced Practice Nurse 06/10/18 documented as of this encounter
--- OUTSIDE RECORDS SUMMARY | 2024-11-30 18:11 | XMS_ITS | Encounter Summary ---
Author Organization [employer] Care Team Providers Care Tong Hooker Name Role Phone Amaya Kowalski APRN, SHUFFLE BOARD OPERATOR Primary Care Provider Encounter Details Date [...] COVID-19? No / Unsure 11/04/2020 1:11 PM AOC DIRECTOR COMBAT OPERATIONS OFFICER documented as of this encounter Plan of Treatment Upcoming Encounters Date Type Department Care Team (Late st Contact Info) Description 03/21/2025 4:30 PM CDT Office Visit [facility] - Primary Care - [place] [address] [place] [address] Shravan Burgos, PAC [address] [place] [address] documented as of this encounter Goals Goal Patient Goal Type Associated Problems Recent Progress Patient-Stated? Author [facility] On track(2019 9:50 AM CDT) Yes Eloise Jenkins LCPC Note: Irma reported her goal for psychotherapy is to help me be able to deal with things in the present and in her past that are contributing to low and anxious mood. Goal Reviewed with: patient Readiness to change: Thinking about making a change Department associated with goal: [facility] Steps to achieve goal: [...] mood concerns. [facility] Behavioral Health On track(2019 9:50 AM CDT) No Eloise Jenkins LCPC Note: Irma will engage in a plan of action to improve emotional and mental wellbeing. Goal Reviewed with: patient Readiness to change: Not yet ready to make a change Department associated with goal: [facility] Steps to achieve goal: [...] documented as of this encounter Care Teams Tong Hooker Relationship Specialty Start Date End Date Amaya Kowalski APRN, SHUFFLE BOARD OPERATOR [address] [place] [address] PCP - General Advanced Practice Nurse 06/10/18 documented as of this encounter
--- OUTSIDE RECORDS SUMMARY | 2024-11-30 18:11 | XMS_ITS | Encounter Summary ---
Author Organization [facility] Address [address] [place] [address] Phone Care Team Providers Care Shrink Pit Supervisor Name Role Phone Amaya Kowalski APRN, CNP Primary Care Provider Reason for Visit * Reason Comments Medication Refill Encounter Details Date Type Department Care Team (Late st Contact Info) Description 12/28/2020 Refill [facility] - Primary Care - [place] [address] [place] [phone] Shahida Bianchi APRN, CNP [address] [place] [address] Medication Refill Social History Tobacco [...] Coronavirus / COVID-19? Yes 12/05/2020 3:55 AM ADVERTISING EDITOR documented as of this encounter Miscellaneous Notes * Telephone Encounter - Mohini Aguirre RN - 12/31/2020 8:20 AM ADVERTISING EDITOR See my chart message of 12/31/20. RTISING EDITOR * Telephone Encounter - Mohini Aguirre RN - 12/30/2020 11:54 AM ADVERTISING EDITOR Attempted to phone patient to relay PCP message. No answer. Voicemail left to call the office. RTISING EDITOR * Telephone Encounter - Amaya Kowalski APN, CNP - 12/30/2020 11:27 AM ADVERTISING EDITOR I will not be refilling this. Drug screen showed cocaine and methamphetamines. RTISING EDITOR * Telephone Encounter - Michell Rowley RN - 12/30/2020 10:45 AM ADVERTISING EDITOR Medication failed the protocol, provider to review [...] ago Injury of left foot, initial encounter [facility] Amaya Kowalski APN, CNP 8 months ago Moderate episode of recurrent major depressive disorder (HCC) [facility] - Amaya Yoder APN, CNP 1 year ago Anxiety [facility] - Amaya Yoder APN, CNP 1 year ago Chronic bronchitis with productive mucopurulent cough (HCC) [facility] - Fox Conde PAC 1 year ago Chronic bronchitis, unspecified chronic bronchitis type (HCC) [facility] - Amaya Yoder APN, CNP Upcoming Appointments [facility] - Recent and Past Visits Recent Visits Date Type Provider Dept 07/26/20 Office Visit Amaya Kowalski APN, CNP [facility] 04/05/20 Office Visit Amaya Kowalski APN, CNP [facility] Showing recent visits within past 460 days with a meds authorizing provider and meeting all other requirements Future Appointments No visits were found meeting these conditions. Showing future appointments within next 90 days with a meds authorizing provider and meeting all other requirements RTISING EDITOR documented in this encounter Plan of Treatment Upcoming Encounters Date Type Department Care Team (Late st Contact Info) Description 03/21/2025 4:30 PM CDT Office Visit [facility] Primary Care - [place] [address] [place] [phone] Shravan Burgos PAC [address] [place] [address] documented as of this encounter [...] track(2019 9:50 AM CDT) No Eloise Jenkins, PROGRAM DIRECTOR/AIR PERSONALITY Note: Irma will engage in a plan [...] documented as of this encounter Care Teams Shrink Pit Supervisor Relationship Specialty Start Date End Date Amaya Kowalski, BODY MAKER MACHINE SETTER, NUTRITION SPECIALIST [address] [place] [address] PCP - General Advanced Practice Nurse 06/10/18 documented as of this encounter
--- OUTSIDE RECORDS SUMMARY | 2024-11-30 18:11 | XMS_ITS | Encounter Summary ---
Author Organization [facility] Address [address] [place] [address] Phone Care Team Providers Care Slide Developer Name Role Phone Amaya Kowalski APRN, DOUGLAS Primary Care Provider Encounter Details Date Type Department Care Team ([facility] Contact Info) Description 10/28/2020 1:20 PM ARABIC PROFESSOR Lab [facility] - Primary Care - [address] [phone] Lab, [facility] Discharge Disposition: Discharged to home or [...] COVID-19? No / Unsure 10/28/2020 12:23 PM ARABIC PROFESSOR documented as of this encounter Progress Notes * Cristin Tolentino RMA - 10/28/2020 1:20 PM CST uds sent to [facility] IC PROFESSOR documented in this encounter Plan of Treatment Upcoming Encounters Date Type Department Care Team (Late st Contact Info) Description 03/21/2025 4:30 PM CDT Office Visit [facility] - Primary Care - [place] [address] [place] [phone] Shravan Burgos PAC [address] [place] [address] documented as of this encounter Goals Goal Patient Goal Type Associated Problems Recent Progress Patient-Stated? Author Behavioral Health Behavioral Health On track(2019 9:50 AM CDT) Yes Eloise Jenkins TRUCKING CONTRACTOR Note: Irma reported her goal for psychotherapy [...] documented as of this encounter Care Teams Slide Developer Relationship Specialty Start Date End Date Amaya Kowalski, FOOD AND BEVERAGE CASHIER, MUNICIPAL CLERK [address] [place] [address] PCP - General Advanced Practice Nurse 06/10/18 documented as of this encounter
--- OUTSIDE RECORDS SUMMARY | 2024-11-30 18:11 | XMS_ITS | Encounter Summary ---
Author Organization [employer] [facility] Care Team Providers Care Artist Woodblock Name Role Phone Amaya Kowalski APRN, REVIEW TRAINER Primary Care Provider Encounter Details Date [...] COVID-19? No / Unsure 10/28/2020 12:23 PM REGULATORY AGENCY DIRECTOR documented as of this encounter Plan of Treatment Upcoming Encounters Date Type Department Care Team (Late st Contact Info) Description 03/21/2025 4:30 PM CDT Office Visit [facility] - Primary Care - [place] [address] [place] [address] Shravan Burgos, PAC [address] [place] [address] documented as of this encounter Goals Goal Patient Goal Type Associated Problems Recent Progress Patient-Stated? Author [facility] Health On track(2019 9:50 AM [...] (current and past) that trigger mood concerns. [facility] Behavioral Health On track(2019 9:50 [...] documented as of this encounter Care Teams Artist Woodblock Relationship Specialty Start Date End Date Amaya Kowalski APRN, REVIEW TRAINER [address] [place] [address] PCP - General Advanced Practice Nurse 06/10/18 documented as of this encounter
--- OUTSIDE RECORDS SUMMARY | 2024-11-30 18:11 | XMS_ITS | Encounter Summary ---
Author Organization [employer] Care Team Providers Care Silver Service Waiter Name Role Phone Amaya Kowalski APRN, LABORER SHIPYARD Primary Care Provider Encounter Details Date Type [...] Coronavirus / COVID-19? Yes 10/15/2020 10:41 AM BABY REGISTRY SALES CONSULTANT documented as of this encounter Plan of Treatment Upcoming Encounters Date Type Department Care Team (Late st Contact Info) Description 03/21/2025 4:30 PM CDT Office Visit [facility] - Primary Care - [place] [address] [place] [address] Shravan Burgos, PAPI [address] [place] [address] documented as of this encounter Goals Goal Patient Goal Type Associated Problems Recent Progress Patient-Stated? Author [facility] Behavioral Health On track(2019 [...] that trigger mood concerns. Behavioral [facility] Behavioral Health On track(2019 9:50 AM [...] documented as of this encounter Care Teams Silver Service Waiter Relationship Specialty Start Date End Date Amaya Kowalski, MEGAN, LABORER SHIPYARD [address] [place] [address] PCP - General Advanced Practice Nurse 06/10/18 documented as of this encounter
--- OUTSIDE RECORDS SUMMARY | 2024-11-30 18:11 | XMS_ITS | Encounter Summary ---
Author Organization [facility] Address [address] [place] [address] Phone Care Team Providers Care Charity Fundraiser Name Role Phone Amaya Kowalski APRN, PORTFOLIO ACCOUNTANT Primary Care Provider Reason for Visit * Reason Onset Date Comments Cough 10/11/2020 COVID-19 10/11/2020 Encounter Details Date Type Department Care Team (Late st Contact Info) Description 10/11/2020 Nurse Triage [facility] [address] [place] [address] Amaya Kowalski, MEGAN, PORTFOLIO ACCOUNTANT [address] [place] [address] Cough; COVID-19 Social History Tobacco Use Types [...] COVID-19? No / Unsure 10/11/2020 12:13 PM MANAGER EXCHANGE documented as of this encounter Miscellaneous Notes [...] <100) Protocols used: CORONAVIRUS (COVID-19) DIAGNOSED OR [id number] GER EXCHANGE documented in this encounter Plan of Treatment Upcoming Encounters Date Type Department Care Team (Late st Contact Info) Description 03/21/2025 4:30 PM CDT Office Visit [facility] - Primary Care - [place] [address] [place] [address] Shravan Burgos PAC [address] [place] [address] documented as of this encounter Goals Goal Patient Goal Type Associated Problems Recent Progress Patient-Stated? Author Behavioral [facility] Behavioral Health On track(2019 9:50 [...] and past) that trigger mood concerns. Behavioral [facility] Behavioral Health On track(2019 9:50 [...] documented as of this encounter Care Teams Charity Fundraiser Relationship Specialty Start Date End Date Amaya Kowalski, NURSE LDR, PORTFOLIO ACCOUNTANT [address] [place] [address] PCP - General Advanced Practice Nurse 06/10/18 documented as of this encounter
--- OUTSIDE RECORDS SUMMARY | 2024-11-30 18:11 | XMS_ITS | Encounter Summary ---
Author Organization [facility] Address [address] [place] [address] Phone Care Team Providers Care Assistive Technology Specialist Name Role Phone Amaya Kowalski APRN, DOUGLAS Primary Care Provider Reason for Visit * Reason Comments Medication Refill Encounter Details Date Type Department Care Team ([facility] st Contact Info) Description 09/20/2020 Refill [facility] - Primary Care - [place] [address] [place] [address] Fox Jesus, PAPI Medication Refill [...] APN, CNP - 09/23/2020 8:19 AM CDT [place] prescription monitoring site reviewed. Medication approved. * [...] ago Injury of left foot, initial encounter [facility] - Amaya Rodriguez APN, CNP 5 months ago Moderate episode of recurrent major depressive disorder (HCC) [facility] - Amaya Yoder APN, CNP 1 year ago [address]xiety [facility] - Amaya Yoder APN, CNP 1 year ago Chronic bronchitis with productive mucopurulent cough (HCC) [facility] - Fox Conde PAC 1 year ago Chronic bronchitis, unspecified chronic bronchitis type (HCC) [facility] - Amaya Yoder APN, CNP Upcoming Appointments Future Appointments In 2 weeks [id number] In 2 weeks SAHCUSTECH2; SAHCUS1 [facility] Ultrasound, [facility] PIPE SMOKER MACHINE OPERATOR - Recent and Past Visits Recent [...] 03/21/2025 4:30 PM CDT Office Visit [facility] - Primary Care - [place] [address] [place] [phone] Shravan Burgos PAC [address] [place] [phone] documented as of this encounter Goals Goal [...] documented as of this encounter Care Teams Assistive Technology Specialist Relationship Specialty Start Date End Date Amaya Kowalski, BLINDMAKER, SKATING CARHOP [address] [place] [address] PCP - General Advanced Practice Nurse 06/10/18 documented as of this encounter
--- OUTSIDE RECORDS SUMMARY | 2024-11-30 18:11 | XMS_ITS | Encounter Summary ---
Author Organization [facility] Address [address] [place] [address] Phone Care Team Providers Care Geoint Analyst Name Role Phone Amaya Kowalski APRN, CNP Primary Care Provider Reason for Visit * Reason Onset Date Comments Results 11/04/2020 Urine drug scree n Encounter Details Date Type Department Care Team ([facility] Contact Info) Description 11/04/2020 Telephone [facility] - Primary Care - [place] [address] [place] [address] Amaya Kowalski APRN, CNP [address] [place] [address] Results (Urine drug screen) Social [...] COVID-19? No / Unsure 11/04/2020 1:11 PM FINANCIAL OPERATIONS CLERK documented as of this encounter Miscellaneous Notes * Telephone Encounter - Mohini Aguirre RN - 11/04/2020 4:37 PM FINANCIAL OPERATIONS CLERK No need to call patient per PCP. NCIAL OPERATIONS CLERK * Telephone Encounter - Amaya Kowalski APN, CNP - 11/04/2020 4:19 PM FINANCIAL OPERATIONS CLERK Patient is compliant with her lorazepam, non compliant with her hydrocodone her venlafaxine and hercodeine also has cocaine and methamphetamines in her system. Will start a taper of her lorazepam. NCIAL OPERATIONS CLERK * Telephone Encounter - Mohini Aguirre RN - 11/04/2020 8:13 AM FINANCIAL OPERATIONS CLERK Urine drug screen results received and placed in PCP inbox. NCIAL OPERATIONS CLERK documented in this encounter Plan of Treatment Upcoming Encounters Date Type Department Care Team (Late st Contact Info) Description 03/21/2025 4:30 PM CDT Office Visit [facility] - Primary Care - [place] [address] [place] [address] Shravan Burgos, PAPI [address] [place] [address] documented as of this encounter Goals Goal Patient Goal Type Associated Problems Recent Progress Patient-Stated? Author Behavioral [facility] Behavioral Health On track(2019 9:50 [...] concerns. Behavioral [facility] Behavioral Health On track(2019 9:50 [...] documented as of this encounter Care Teams Geoint Analyst Relationship Specialty Start Date End Date Amaya Kowalski, SPRING TESTER, RETAIL OFFICE ASSOCIATE [address] [place] [address] PCP - General Advanced Practice Nurse 06/10/18 documented as of this encounter
--- OUTSIDE RECORDS SUMMARY | 2024-11-30 18:11 | XMS_ITS | Encounter Summary ---
Author Organization [facility] Address [address] [place] [address] Phone Care Team Providers Care Erector Operator Name Role Phone Amaya Kowalski APRN, CNP Primary Care Provider Reason for Visit * Reason Onset Date Comments Medication Refill Medication Refill 10/28/2020 Encounter Details Date Type Department Care Team ([facility] st Contact Info) Description 10/22/2020 Telephone [facility] - Primary Care - [place] [address] [place] [address] Amaya Kowalski APRN, TOBACCO CUTTER [address] [place] [address] Medication Refill; Medication Refill Social [...] Coronavirus / COVID-19? Yes 10/15/2020 10:41 AM CONSTRUCTION SUPERVISOR documented as of this encounter Miscellaneous Notes * Telephone Encounter - Marian Rahman - 10/28/2020 9:44 AM CST Patient will be in for script and is stating that she is on a time limit because she has to be backto work at 2:00 and work second shift as well Patient was not told about UDS upon arrival to the office. TRUCTION SUPERVISOR * Telephone Encounter - Latia Garcia CMA - 10/23/2020 1:57 PM CST UDS order placed. Script placed in lab. Left message notifying patient that script is ready to be picked up in office. TRUCTION SUPERVISOR * Telephone Encounter - Fox Jesus PAC - 10/23/2020 1:55 PM CONSTRUCTION SUPERVISOR Refill approved. [place] DIRECT[place] reviewed. Patient will need to come in and pick up attendant Ativan prescription Most recent UDS reviewed-inconsistent with medication being prescribed. Please pend UDS TRUCTION SUPERVISOR * Telephone Encounter - Latia Garcia CMA [...] ago Injury of left foot, initial encounter [facility] Amaya Kowalski APN, CNP 6 months ago Moderate episode of recurrent major depressive disorder (HCC) [facility] - Amaya Yoder APN, CNP 1 year ago Anxiety [facility] - Amaya Yoder APN, CNP 1 year ago Chronic bronchitis with productive mucopurulent cough (HCC) [facility] - Fox Conde PAC 1 year ago Chronic bronchitis, unspecified chronic bronchitis type (HCC) [facility] - Amaya Yoder APN, CNP Upcoming Appointments Future Appointments In 1 week SAHCMAM1 [facility] Mammography, [facility] In 1 week SAHCUSTECH2; SAHCUS2 [facility] Ultrasound, [facility] BILLING SUPERVISOR - Recent and Past Visits Recent Visits Date Type Provider Dept 07/26/20 Office Visit Am[facility]alski APN, CNP [facility] 04/[facility]/20 Office Visit Amaya Kowalski APN, CNP [facility] 08/17/19 Office Visit Amaya Kowalski APN, CNP [facility] [place] Showing recent visits within past 460 [...] ago Injury of left foot, initial encounter [facility] Amaya Kowalski APN, CNP 6 months ago Moderate episode of recurrent major depressive disorder (HCC) [facility] - Amaya Yoder APN, CNP 1 year ago Anxiety [facility] - Amaya Yoder APN, CNP 1 year ago Chronic bronchitis with productive mucopurulent cough (HCC) [facility] - Fox Conde PAC 1 year ago Chronic bronchitis, unspecified chronic bronchitis type (HCC) [facility] - Amaya Yoder APN, CNP Upcoming Appointments Future Appointments In 1 week SAHCMAM1 [facility], [facility] In 1 week SAHCUSTECH2; SAHCUS2 [facility] Ultrasound, [facility] BILLING SUPERVISOR - Recent and Past Visits Recent Visits Date Type Provider Dept 07/26/20 Office Visit Amaya Kowalski APN, CNP [facility] 04/05/20 Office Visit Amaya Kowalski APN, CNP [facility] 08/17/19 Office Visit [facility] Showing recent visits within past 460 days with a meds authorizing provider and meeting all other requirements Future Appointments No visits were found meeting these conditions. Showing future appointments within next 90 days with a meds authorizing provider and meeting all other requirements TRUCTION SUPERVISOR * Telephone Encounter - Latia Garcia CMA - 10/23/2020 9:06 AM CST Called patient to schedule follow-up. States that she is currently working 2 jobs and just started her second job and is unsure of her schedule and will call back to schedule her appointment when sheknows that schedule. TRUCTION SUPERVISOR documented in this encounter Plan of Treatment Upcoming Encounters Date Type Department Care Team (Late st Contact Info) Description 03/21/2025 4:30 PM CDT Office Visit [facility] - Primary Care - [place] [address] [place] [address] Shravan Burgos [...] documented as of this encounter Care Teams Erector Operator Relationship Specialty Start Date End Date Amaya Kowalski, VIDEO MACHINES MECHANIC, TOBACCO CUTTER [address] [place] [address] PCP - General Advanced Practice Nurse 06/10/18 documented as of this encounter
--- OUTSIDE RECORDS SUMMARY | 2024-11-30 18:11 | XMS_ITS | Encounter Summary ---
Author Organization [facility] Address [address] [place] [address] Phone Care Team Providers Care Chairman And Ceo Name Role Phone Amaya Kowalski APRN, REHABILITATION CONSULTANT Primary Care Provider Reason for Visit * Reason Comments Cough X 1 week Encounter Details Date Type Department Care Team ([facility] st Contact Info) Description 10/15/2020 10:45 AM ROLL UP GUIDER OPERATOR [facility] - [place] [address] [place] [address] Larissa Koch APRN, REHABILITATION CONSULTANT [address] [place] [address] Bronchitis (Primary Dx); Cough Discharge Disposition: Discharged [...] Coronavirus / COVID-19? Yes 10/15/2020 10:41 AM ROLL UP GUIDER OPERATOR documented as of this encounter Last Filed Vital Signs Vital Sign Reading Time Taken Comments Blood Pressure 116/84 10/15/2020 10:50 AM ROLL UP GUIDER OPERATOR Pulse 88 10/15/2020 10:50 AM ROLL UP GUIDER OPERATOR Temperature 36.6 ??C (97.9 ??F) 10/15/2020 10:[address] Respiratory Rate 20 10/15/2020 10:50 AM ROLL UP GUIDER OPERATOR Oxygen Saturation 98% 10/15/2020 10:50 AM ROLL UP GUIDER OPERATOR Inhaled Oxygen Concentration - - Weight 62.6 kg (138 lb) 10/15/2020 10:50 AM ROLL UP GUIDER OPERATOR Height 160 cm (5' 3 ) 10/15/2020 10:50 AM ROLL UP GUIDER OPERATOR Body Mass Index 24.45 10/15/2020 10:50 AM ROLL UP GUIDER OPERATOR documented in this encounter Patient Instructions * Patient Instructions* Larissa Koch, [place], REHABILITATION CONSULTANT - 10/15/2020 10:45 AM ROLL UP GUIDER OPERATOR Images from the original note were not [...] from secondhand smoke. ?? You may use sfxe-hyh-kswuxpv medicines to control fever or pain, unless [...] mucus in your nose and lungs. ?? Bepd-wwi-xmmipog cough, cold, and sore-throat medicines will not [...] reviewed this educational content on 04/29/2018 ?? [id number] [employer]. [address] [place] [address], [place] [address]. All rights reserved. This information is not [...] to the ER if symptoms become severe UP GUIDER OPERATOR documented in this encounter Progress Notes * [...] been addressed with the patient today: N/A UP GUIDER OPERATOR documented in this encounter H&P Notes * Larissa Koch APN, REHABILITATION CONSULTANT - 10/15/2020 10:45 AM CST Subjective: Irma [...] days 2-5. Dispense: 6 Tab; Refill: 0 UP GUIDER OPERATOR documented in this encounter Plan of Treatment Upcoming Encounters Date Type Department Care Team (Late st Contact Info) Description 03/21/2025 4:30 PM CDT Office Visit [facility] - Primary Care - [place] [address] [place] [address] Shravan Burgos PAC [address] [place] [address] documented as of this encounter [...] (current and past) that trigger mood concerns. [facility] Behavioral Health On track(2019 9:50 AM CDT) No Eloise Jenkins, TRAIN ENGINEER Note: Irma will engage in a plan [...] XR CHEST 2 VIEWS (10/15/2020 11:32 AM ROLL UP GUIDER OPERATOR) Anatomical Region Laterality Modality Chest N/A Digital RadioIM5a phy 10/15/2020 11:3 8 AM ROLL UP GUIDER OPERATOR Impressions 10/15/2020 11:41 AM ROLL UP GUIDER OPERATOR IMPRESSION: ?? 1. ??No acute cardiopulmonary process is identified. Narrative 10/15/2020 11:41 AM ROLL UP GUIDER OPERATOR EXAM DESCRIPTION: ?? XR CHEST 2 VIEWS [...] AM T: ??10/15/2020 11:38 AM Report ID: [id number] Reading Location: ??[id number] Procedure Note Yadiel Valderrama DO - 10/15/2020 [...] by Yadiel Valderrama D.O. : Report ID: [id number] Reading Location: [id number] IMPRESSION: 1. No acute cardiopulmonary process is identified. Larissa Koch APRN, DOUGLAS IMG DIAGNOSTIC OR DERABLES Final Result documented in this encounter Visit Diagnoses Diagnosis Bronchitis- Primary Bronchitis, not specified as acute or chronic Cough Cough documented in this encounter Additional Health Concerns Assessment Noted Time PHQ-9 Depression Total Score: 13 020 2:00 PM CDT documented as of this encounter Care Teams Chairman And Ceo Relationship Specialty Start Date End Date Amaya Kowalski APRN, DOUGLAS [address] [place] [address] PCP - General Advanced Practice Nurse 06/10/18 documented as of this encounter
--- OUTSIDE RECORDS SUMMARY | 2024-11-30 18:11 | XMS_ITS | Encounter Summary ---
Author Organization [facility] Address [address] [place] [address] Phone Care Team Providers Care Chemical Cell Changer Name Role Phone Amaya Kowalski APRN, LEAD MECHANIC Primary Care Provider Sravani Ramsay MD Primary Care Provider [phone] Arnold Roberts MD Unavailable Shravan Burgos Primary Care Provider + [phone] Reason for Visit * Reason Comments Medication Refill Encounter Details Date Type Department Care Team ([facility] Contact Info) Description 10/24/2020 Refill [facility] - Primary Care - [place] [address] [place] [address] Amaya Kowalski APRN, LEAD MECHANIC [address] [place] [address] Medication Refill Social History Tobacco [...] Coronavirus / COVID-19? Yes 10/15/2020 10:41 AM SERVOMECHANISM DESIGNER documented as of this encounter Miscellaneous Notes * Telephone Encounter - Latia Garcia CMA - 10/25/2020 7:57 AM CST This medication was already order. Please refused. OMECHANISM DESIGNER documented in this encounter Plan of Treatment Upcoming Encounters Date Type Department Care Team (Late st Contact Info) Description 03/21/2025 4:30 PM CDT [facility] - Primary Care - [place] [address] [place] [address] Shravan Burgos PAC [address] [place] [address] documented as of this encounter [...] track(2019 9:50 AM CDT) No Eloise Jenkins, SUPERINTENDENT TRACK Note: Irma will engage in a plan [...] - 19 11/26/2022 11/26/2022 11/26/2022 4:47 PM SERVOMECHANISM DESIGNER COVID - 19 11/26/2022 11/26/2022 12/06/2022 12:1 9 AM SERVOMECHANISM DESIGNER Assessment Noted Time PHQ-9 Depression Total Score: 13 020 2:00 PM CDT documented as of this encounter Care Teams Chemical Cell Changer Relationship Specialty Start Date End Date Amaya Kowalski, BEATER BOSS, LEAD MECHANIC [address] [place] [address] PCP - General Advanced Practice Nurse 06/10/18 04/22/23 Sravani Ramsay MD [address] [place] [address] PCP - General Family Medicine 04/23/23 12/30/23 Shravan Burgos, [facility] [address] [place] [address] PCP - General Physician Band Shover 12/31/23 Arnold Roberts MD [address] [place] [address] Consulting Physician Pulmonary Disease 07/26/23 documented as of this encounter
--- OUTSIDE RECORDS SUMMARY | 2024-11-30 18:11 | XMS_ITS | Encounter Summary ---
Author Organization [facility] Address [address] [place] [address] Phone Care Team Providers Care Shorer Name Role Phone Amaya Kowalski APRN, MAIL MESSENGER Primary Care Provider Sravani Ramsay MD Primary Care Provider + [phone] Arnold Roberts MD Unavailable Shravan Burgos Primary Care Provider + [phone] Reason for Visit * Reason Comments Medication Refill Encounter Details Date Type Department Care Team ([facility] Contact Info) Description 11/27/2020 Refill [facility] - Primary Care - [place] [address] [place] [address] Fox Jesus, PAPI Medication Refill [...] COVID-19? No / Unsure 11/04/2020 1:11 PM POST CLOSER documented as of this encounter Miscellaneous Notes [...] Injury of left foot, initial encounter [facility] Amaya Kowalski APN, MAIL MESSENGER 7 months ago Moderate episode of recurrent major depressive disorder (HCC) [facility] - Amaya Yoder APN, MAIL MESSENGER 1 year ago Anxiety [facility] - Amaya Yoder APN, MAIL MESSENGER 1 year ago Chronic bronchitis with productive mucopurulent cough (HCC) [facility] - Fox Conde PAC 1 year ago Chronic bronchitis, unspecified chronic bronchitis type (HCC) [facility] - Amaya Yoder APN, MAIL MESSENGER Upcoming Appointments SHREDDING MACHINE TENDER - Recent and Past Visits Recent Visits Date Type Provider Dept 07/26/20 Office Visit Amaya Kowalski APN, DOUGLAS [facility] 04/05/20 Office Visit Amaya Kowalski APN, MAIL MESSENGER [facility] [place] Showing recent visits within past 460 days with a meds authorizing provider and meeting all other requirements Future Appointments No visits were found meeting these conditions. Showing future appointments within next 90 days with a meds authorizing provider and meeting all other requirements CLOSER documented in this encounter Plan of Treatment Upcoming Encounters Date Type Department Care Team (Late st Contact Info) Description 03/21/2025 4:30 PM CDT Office Visit [facility] - Primary Care - [place] [address] [place] [address] Shravan Burgos PAC [address] [place] [address] documented as of this encounter Goals Goal Patient Goal Type Associated Problems Recent Progress Patient-Stated? Author Behavioral [facility] Behavioral Health On track(2019 [...] - 19 11/26/2022 11/26/2022 11/26/2022 4:47 PM POST CLOSER COVID - 19 11/26/2022 11/26/2022 12/06/2022 12:1 9 AM POST CLOSER Assessment Noted Time PHQ-9 Depression Total Score: 13 020 2:00 PM CDT documented as of this encounter Care Teams Shorer Relationship Specialty Start Date End Date Amaya Kowalski, ADMINISTRATIVE OPERATIONS COORDINATOR, MAIL MESSENGER [address] [place] [address] PCP - General Advanced Practice Nurse 06/10/18 04/22/23 Sravani Ramsay MD [address] [place] [address] PCP - General Family Medicine 04/23/23 12/30/23 Shravan Burgos PAC [address] [place] [address] PCP - General Physician Ticket Agent 12/31/23 Arnold Roberts MD [address] [place] [address] Consulting Physician Pulmonary Disease 07/26/23 documented as of this encounter
--- OUTSIDE RECORDS SUMMARY | 2024-11-30 18:11 | XMS_ITS | Encounter Summary ---
Author Organization [facility] Address [address] [place] [address] Phone Care Team Providers Care Medical Claims Manager Name Role Phone Amaya Kowalski APRN, TRANSLATOR Primary Care Provider Encounter Details Date Type Department Care Team (Late st Contact Info) Description 09/18/2020 Transcribe Orders [facility] Scheduling [address] [place] [id number] Veronika Orantes APRN, TRANSLATOR 4 [facility] [address] [place] [address] Other abnormal and inconclusive findings [...] Description 03/21/2025 4:30 PM CDT Office Visit [facility] - Primary Care - [place] [address] [place] [address] Shravan Burgos, PAPI [address] [place] [address] documented as of this encounter [...] as of this encounter Care Teams Medical Claims Manager Relationship Specialty Start Date End Date Amaya Kowalski, SURVEILLANCE OBSERVER, TRANSLATOR [address] [place] [address] PCP - General Advanced Practice Nurse 06/10/18 documented as of this encounter
--- OUTSIDE RECORDS SUMMARY | 2024-11-30 18:12 | XMS_ITS | Encounter Summary ---
Author Organization [email or web address] Care Team Providers Care Broaching Machine Set Up Operator Name Role Phone Amaya Kowalski APRN, POLLUTION CONTROL TECHNICIAN Primary Care Provider Encounter Details Date [...] PM CDT [facility] - Primary Care - [place] [address] [place] [address] Shravan Burgos, PAC [address] [place] [address] documented as of this encounter Goals Goal Patient Goal Type Associated Problems Recent Progress Patient-Stated? Author [facility] Health On track(2019 9:50 AM CDT) [...] past) that trigger mood concerns. Behavioral [facility] Behavioral Health On track(2019 9:50 [...] documented as of this encounter Care Teams Broaching Machine Set Up Operator Relationship Specialty Start Date End Date Amaya Kowalski APRN, POLLUTION CONTROL TECHNICIAN [address] [place] [address] PCP - General Advanced Practice Nurse 06/10/18 documented as of this encounter
--- OUTSIDE RECORDS SUMMARY | 2024-11-30 18:12 | XMS_ITS | Encounter Summary ---
Author Organization [facility] Address [address] [place] [address] Phone Care Team Providers Care Machinist Class B Name Role Phone Amaya Kowalski APRN, CNP [...] Expiration Date Visits Re quested Visits Authorized [id number] Closed 04/05/2020 1 1 Encounter Details Date Type Department Care Team (Latest Contact Info) Description 04/16/2020 2:00 PM CDT Outpatient Clinic Visit [facility]al Health Services [address] [place] [address] Amaya Kowalski APRN, CNP [address] [place] [address] Natali Jenkins LCPC Moderate episode of recurrent [...] following resources available 24 hours per day: [facility] [phone] [facility] [place]: [phone] National Suicide Prevention Hotline: 4-045- 622- TALK (5411) Behavioral Health Response: [phone] [facility]: [phone]- [phone] (9278) Call 911 or go to your nearest Emergency Room. documented in this encounter Progress Notes * Natali Jenkins LCPC - 04/16/2020 2:00 PM CDT [facility] [address] [facility], [address] Floor, [place] [address] Psychological Services Lyx-Mwxysy-Ugupqj Assessment Irmaluis carlos Seymour 1980 [address] [facility] [phone] Presenting Problem(s): Pt reports experiencing symptoms of [...] of this intake appointment to the practitioner. Roman Catholic and Spiritual Beliefs, Values & Preferences: I'm Orthodox , not currently attending, I do believe and she stated she engages in prayer. Ethnic and/or Cultural Factors to Consider During Treatment: none reported at this time. Vocational or Educational Background: Current job: laid off due to Covid-19 closures, working [employer], three days a week . Pt reported [...] Description 03/21/2025 4:30 PM CDT Office Visit [facility] - Primary Care - [place] [address] [place] [address] Shravan Burgos, PAPI [address] [place] [address] documented as of this [...] documented as of this encounter Care Teams Machinist Class B Relationship Specialty Start Date End Date Amaya Kowalski, DOCUMENT REVIEW ATTORNEY, DATA PROCESSING SUPERVISOR [address] [place] [address] PCP - General Advanced Practice Nurse 06/10/18 documented as of this encounter
--- OUTSIDE RECORDS SUMMARY | 2024-11-30 18:12 | XMS_ITS | Encounter Summary ---
Author Organization [facility] Address [address] [place] [address] Phone Care Team Providers Care Sanitarian Aide Name Role Phone Amaya Kowalski APRN, CNP Primary Care Provider Reason for Visit * Reason Comments Medication Refill Encounter Details Date Type Department Care Team (Late st Contact Info) Description 07/22/2020 Refill [facility] [address] [place] [address] Amaya Kowalski APRN, SENIOR PRINCIPAL SOFTWARE ENGINEER [address] [place] [address] Medication Refill Social History [...] APN, CNP - 07/23/2020 1:00 PM CDT [place] prescription monitoring site reviewed medication approved * [...] Office Visit [facility] - Primary Care - [place] [address] [place] [address] Shravan Burgos PAC [address] [place] [address] documented as of this encounter Goals Goal Patient Goal Type Associated Problems Recent Progress Patient-Stated? Author Behavioral Health Behavioral Health On track(2019 9:50 AM CDT) Yes Eloise Jenkins, GLASS CUTTING MACHINE FEEDER Note: Irma reported her goal for psychotherapy [...] documented as of this encounter Care Teams Sanitarian Aide Relationship Specialty Start Date End Date Amaya Kowalski, BOTTLER HELPER, SENIOR PRINCIPAL SOFTWARE ENGINEER [address] [place] [address] PCP - General Advanced Practice Nurse 06/10/18 documented as of this encounter
--- OUTSIDE RECORDS SUMMARY | 2024-11-30 18:12 | XMS_ITS | Encounter Summary ---
Author Organization [facility] Address [address] [place] [address] Phone Care Team Providers Care Tower Loader Operator Name Role Phone Amaya Kowalski APRN, CNP Primary Care Provider Reason for Visit * Radiology Services (Routine) - Closed Specialty Diagnoses / Procedures Referred By Claudio t Referred To Contact Radiology Diagnoses Encounter for screening mammogram for malignant neoplasm of breast Procedures NU SCREENING BILATERAL DIGITAL W CAD W WILBERT NU SCREENING BILATERAL DIGITAL W CAD Veronika Orantes APRN, DOUGLAS [address] [facility] [place] [address] Phone: tel: fax: Referral ID Status Reason Start Date Expiration Date Visits Re quested Visits Authorized [id number] Closed 09/04/2020 1 1 Encounter Details Date Type Department Care Team (Latest Contact Info) Description 09/13/2020 3:59 PM CDT - 09/13/2020 11:59 PM CDT Hospital Encounter [facility] Mammography 1 [place] [address] Veronika Orantes APRN, ELECTRICAL INSTRUMENT MAKER [address] [facility] [facility] [facility] [address] [place] [address] Discharge Disposition: Discharged to home or Selfcare [...] Office Visit [facility] - Primary Care - [place]der [address] [place] [phone] Shravan Burgos PAC [address] [place] [phone] documented as of this encounter Goals Goal Patient Goal Type Associated Problems Recent Progress Patient-Stated? Author Behavioral Health Behavioral Health On track(2019 9:50 AM CDT) Yes Eloise Jenkins, [facility] Note: Irma reported her goal for [...] On track(2019 9:50 AM CDT) Eloise Mix [facility] Note: Irma will engage in a [...] Comparison is made to exam dated: ??03/14/2019 [facility]. ?? BREAST TISSUE:The tissue of both [...] Joseline Hurley M.D. ? ab/:09/16/2020 10:31:18 ?? B2B Sales Professional: Rani OBREGON (R)(Aj), [facility] letter sent: Additional Imaging ?? Reading location: [facility] BI-RADS: 0 Additional Imaging Evaluation Needed Procedure [...] Comparison is made to exam dated: 03/14/2019 [facility]. BREAST TISSUE:The tissue of both breasts [...] signed by: Joseline Hurley M.D. ab/:09/16/2020 10:31:18 B2B Sales Professional: Rani MORRELL)(Aj), [facility] letter sent: Additional Imaging Reading location: [facility] [place] BI-RADS: 0 Additional Imaging Evaluation Needed us Veronika Orantes APRN, DOUGLAS IM MAMMO ORDERABLES Kaylin l Result documented in this encounter Visit Diagnoses Diagnosis Encounter for screening mammogram for malignant neoplasm of breast Other screening mammogram documented in this encounter Additional Health Concerns Assessment Noted Time PHQ-9 Depression Total Score: 13 020 2:00 PM CDT documented as of this encounter Care Teams Tower Loader Operator Relationship Specialty Start Date End Date Amaya Kowalski APRN, ELECTRICAL INSTRUMENT MAKER [address] [place] [address] PCP - General Advanced Practice Nurse 06/10/18 documented as of this encounter
--- OUTSIDE RECORDS SUMMARY | 2024-11-30 18:12 | XMS_ITS | Encounter Summary ---
Author Organization [employer] Care Team Providers Care Audio Specialist Name Role Phone Amaya Kowalski APRN, TOP PRECIPITATOR OPERATOR Primary Care Provider Encounter Details Date [...] Office Visit [facility] Medical [facility] - Primary [...] documented as of this encounter Care Teams Audio Specialist Relationship Specialty Start Date End Date Amaya Kowalski APRN, TOP PRECIPITATOR OPERATOR [address] [place] [address] PCP - General Advanced Practice Nurse 06/10/18 documented as of this encounter
--- OUTSIDE RECORDS SUMMARY | 2024-11-30 18:12 | XMS_ITS | Encounter Summary ---
Author Organization [facility] Address [address] [place] [address] Phone Care Team Providers Care Industrial Education Instructor Name Role Phone Amaya Kowalski APRN, CNP Primary Care Provider Encounter Details Date Type Department Care Team (Late st Contact Info) Description 06/25/2020 Telephone [facility] Behavioral Health Services 1 [place] [address] Eloise Jenkins, [facility] Social History Tobacco Use Types [...] CDT Office Visit [facility] - Primary Care - [place] [address] [place] [address] Shravan Burgos, PAC [address] [place] [address] documented as of this encounter Goals Goal Patient Goal Type Associated Problems Recent Progress Patient-Stated? Author Behavioral [facility] Behavioral Health On [...] documented as of this encounter Care Teams Industrial Education Instructor Relationship Specialty Start Date End Date Amaya Kowalski, AUTO GARAGE ATTENDANT, COOK HELPER PRESERVES [address] [place] [address] PCP - General Advanced Practice Nurse 06/10/18 documented as of this encounter
--- OUTSIDE RECORDS SUMMARY | 2024-11-30 18:12 | XMS_ITS | Encounter Summary ---
Author Organization [facility] Address [address] [place] [address] Phone Care Team Providers Care Implant Polisher Name Role Phone Amaya Kowalski APRN, CNP Primary Care Provider Encounter Details Date Type Department Care Team (Late Contact Info) Description 04/10/2020 Telephone [facility] Behavioral Health Services 1 [place] [address] Eloise Jenkins, [facility] Social History Tobacco Use Types [...] Primary Care - [place] [place] [place] [address] Shravan Burgos, PAC [address] [place] [address] documented as of this encounter Visit Diagnoses Not on filedocumented in this encounter Additional Health Concerns Assessment Noted Time PHQ-9 Depression Total Score: 9 04/05/20 20 9:22 AM CDT documented as of this encounter Care Teams Implant Polisher Relationship Specialty Start Date End Date Amaya Kowalski, RADIOGRAPHER ANGIOGRAM, LASER PRINTING OPERATOR [address] [place] [address] PCP - General Advanced Practice Nurse 06/10/18 documented as of this encounter
--- OUTSIDE RECORDS SUMMARY | 2024-11-30 18:12 | XMS_ITS | Encounter Summary ---
Author Organization [facility] Address [address] [place] [address] Phone Care Team Providers Care Input Output Clerk Name Role Phone Amaya Kowalski APRN, CNP Primary Care Provider Encounter Details Date Type Department Care Team (Late st Contact Info) Description 06/06/2020 Telephone [facility] Behavioral Health Services 1 [place] [address] Eloise Jenkins, [facility] Social History Tobacco Use Types Packs/Day [...] CDT Office Visit [facility] - Primary Care - [place] [address] [place] [address] Shravan Burgos, PAPI [address] [place] [address] documented as of this encounter [...] documented as of this encounter Care Teams Input Output Clerk Relationship Specialty Start Date End Date Amaya Kowalski, LEGISLATIVE AIDE, COUNTERINTELLIGENCE/HUMINT SPECIALIST [address] [place] [address] PCP - General Advanced Practice Nurse 06/10/18 documented as of this encounter
--- OUTSIDE RECORDS SUMMARY | 2024-11-30 18:12 | XMS_ITS | Encounter Summary ---
Author Organization [facility] Address [address] [place] [address] Phone Care Team Providers Care Heading Machine Operator Name Role Phone Amaya Kowalski APRN, CNP Primary Care Provider Reason for Visit * Reason Comments Medication Refill Encounter Details Date Type Department Care Team (Late st Contact Info) Description 06/17/2020 Refill [facility] [address] [place] [address] Amaya Kowalski APRN, GLOVE PARTS CUTTER [address] [place] [address] Medication Refill Social History Tobacco [...] APN, CNP - 06/19/2020 5:03 PM CDT [place] prescription monitoring site reviewed, medication approved * [...] Primary Care - Eder [address] [place] [address] Shravan Burgos PAC [address] [place] [address] documented as of this encounter [...] track(2019 9:50 AM CDT) No Eloise Jenkins, [employer] Note: Irma will engage in a plan [...] documented as of this encounter Care Teams Heading Machine Operator Relationship Specialty Start Date End Date Amaya Kowalski, SPLICING MACHINE OPERATOR AUTOMATIC, GLOVE PARTS CUTTER [address] [place] [address] PCP - General Advanced Practice Nurse 06/10/18 documented as of this encounter
--- OUTSIDE RECORDS SUMMARY | 2024-11-30 18:12 | XMS_ITS | Encounter Summary ---
Author Organization [facility] Address [address] [place] [place] [address] Phone Care Team Providers Care Removable Prosthodontist Name Role Phone Amaya Kowalski APRN, CNP Primary Care Provider Reason for Visit * Reason Comments Medication Refill Encounter Details Date Type Department Care Team ([facility] st Contact Info) Description 05/12/2020 Refill [facility] [address] [place] [phone] Amaya Kowalski APRN, NEWS ASSISTANT [address] [place] [address] Medication Refill Social History Tobacco [...] APN, CNP - 05/13/2020 8:43 AM CDT [place] prescription monitoring site reviewed. Medication approved. * [...] Primary Care - [place]der [address] [place] [address] Shravan Burgos PAC [address] [place] [address] documented as of this encounter [...] documented as of this encounter Care Teams Removable Prosthodontist Relationship Specialty Start Date End Date Amaya Kowalski, MAIL CLERKS SUPERVISOR, NEWS ASSISTANT [address] [place] [address] PCP - General Advanced Practice Nurse 06/10/18 documented as of this encounter
--- OUTSIDE RECORDS SUMMARY | 2024-11-30 18:12 | XMS_ITS | Encounter Summary ---
Author Organization [employer] Care Team Providers Care Casing Blower Name Role Phone Amaya Kowalski APRN, PHARMACY INFORMATICIST Primary Care Provider Encounter Details Date Type [...] PM CDT Office Visit [facility] - Primary Care - [place] [address] [place] [address] Shravan Burgos, PAC [address] [place] [address] documented as of this encounter Goals Goal Patient Goal Type Associated Problems Recent Progress Patient-Stated? Author [facility] Health On track(2019 9:50 AM CDT) [...] (current and past) that trigger mood concerns. [facility] [...] documented as of this encounter Care Teams Casing Blower Relationship Specialty Start Date End Date Amaya Kowalski APRN, PHARMACY INFORMATICIST [address] [place] [address] PCP - General Advanced Practice Nurse 06/10/18 documented as of this encounter
--- OUTSIDE RECORDS SUMMARY | 2024-11-30 18:12 | XMS_ITS | Encounter Summary ---
Author Organization [facility] Address [address] [place] [address] Phone Care Team Providers Care Inspector Watch Train Name Role Phone Amaya Kowalski APRN, CNP Primary Care Provider Reason for Visit * Reason Onset Date Comments Results 07/29/2020 Left foot x-ray Encounter Details Date Type Department Care Team ([facility] Contact Info) Description 07/29/2020 Telephone [facility] - Primary Care - [place] [address] [place] [address] Amaya Kowalski APRN MANAGER ADMINISTRATION [address] [place] [address] Results (Left foot x-ray) Social [...] Modules accepted: Orders * Telephone Encounter - mAaya Kowalski APN, CNP - 07/29/2020 12:55 PM [...] CDT ----- Message from Amaya Kowalski APN, MANAGER ADMINISTRATION sent at 07/29/2020 10:09 AM CDT ----- Acute nondisplaced fracture of the left 5th toe proximal phalanx. Can refer to orthopedic or timber surveyor, but not sure that they will do anything. documented in this encounter Plan of Treatment Upcoming Encounters Date Type Department Care Team (Late st Contact Info) Description 03/21/2025 4:30 PM CDT Office Visit [facility] - Primary Care - [place] [address] [place] [address] Shravan Burgos PAC [address] [place] [address] documented as of this encounter [...] - 19 10/11/2020 10/11/2020 10/13/2020 8:16 AM TAILINGS DAM LABORER Assessment Noted Time PHQ-9 Depression Total Score: 13 020 2:00 PM CDT documented as of this encounter Care Teams Inspector Watch Train Relationship Specialty Start Date End Date Amaya Kowalski, SCIENCE TECHNICIAN, MANAGER ADMINISTRATION [address] [place] [address] PCP - General Advanced Practice Nurse 06/10/18 documented as of this encounter
--- OUTSIDE RECORDS SUMMARY | 2024-11-30 18:12 | XMS_ITS | Encounter Summary ---
Author Organization [facility] Address [address] [place] [address] Phone Care Team Providers Care Lap Runner Name Role Phone Amaya Kowalski APRN, CNP Primary Care Provider Reason for Visit * Reason Onset Date Comments Form Completion 04/16/2020 nebulizer suppli es Encounter Details Date Type Department Care Team (Late st Contact Info) Description 04/16/2020 Telephone [facility] [place] [address] [place] [address] Amaya Kowalski APRN, CNP [address] [place] [address] Form Completion (nebulizer supplies) Social [...] encounter Miscellaneous Notes * Telephone Encounter - Moihni Aguirre RN - 04/29/2020 9:39 AM CDT Signed and faxed successfully. * Telephone Encounter - Mohini Aguirre RN - 04/16/2020 3:33 PM CDT Received form for nebulizer supplies from [employer]. Placed in PCP inbox for signature. To be faxed to [phone] after signed. documented in this encounter Plan of Treatment Upcoming Encounters Date Type Department Care Team (Late st Contact Info) Description 03/21/2025 4:30 PM CDT Office Visit [facility] - Primary Care - [place] [address] [place] [address] Shravan Burgos PAC [address] [place] [address] documented as of this encounter [...] documented as of this encounter Care Teams Lap Runner Relationship Specialty Start Date End Date Amaya Kowalski, QUALITY CONTROL ANALYST, OPEN CLAIMS REPRESENTATIVE [address] [place] [address] PCP - General Advanced Practice Nurse 06/10/18 documented as of this encounter
--- OUTSIDE RECORDS SUMMARY | 2024-11-30 18:12 | XMS_ITS | Encounter Summary ---
Author Organization [facility] Address [address] [place] [address] Phone Care Team Providers Care Director Experimental Medicine Name Role Phone Amaya Kowalski APRN, CNP Primary Care Provider Reason for Referral * Radiology Services (Routine) - Closed Specialty Diagnoses / Procedures Referred By Contac t Referred To Contact Radiology Diagnoses Pelvic and perineal pain Procedures US PELVIS COMPLETE WITH TRANSVAGINAL Veronika Orantes APRN, CNP [address] [facility] [place] [place] [address] Phone: tel: fax: Referral ID Status Reason Start Date Expiration Date Visits Re quested Visits Authorized [id number] Closed 09/04/2020 1 1 Reason for Visit * Radiology Services (Routine) - Closed Specialty Diagnoses / Procedures Referred By Contac t Referred To Contact Radiology Diagnoses Pelvic and perineal pain Procedures US PELVIS COMPLETE WITH TRANSVAGINAL Veronika Orantes APRN, CNP [address] [place] [address] Phone: tel: fax: Referral ID Status Reason Start Date Expiration Date Visits Re quested Visits Authorized [id number] Closed 09/04/2020 1 1 Encounter Details Date Type Department Care Team (Latest Contact Info) Description 09/13/2020 3:24 PM CDT - 09/13/2020 3:58 PM CDT Hospital Encounter [facility] Ultrasound [address] [place] [address] Veronika Orantes APRN, CLAY PRESS OPERATOR [address] [place] [address] Discharge Disposition: Discharged to home or Selfcare [...] Group - Primary Care - [place] [address] [place] [address] Shravan Burgos PAC [address] [place] [address] documented as of [...] change Department associated with goal: [facility] Steps to achieve goal: [...] change Department associated with goal: [facility] Steps to achieve goal: [...] AM T: ??09/14/2020 6:29 AM Report ID: [id number] Reading Location: ??[id number] Procedure Note Zbigniew Flores MD - 09/14/2020 [...] Zbigniew Flores M.D. [place]: LULA Report ID: [id number] Reading Location: [id number] IMPRESSION: No significant abnormality. IUD in satisfactory position. 4 cm left adnexal cyst. us Veronika Orantes APRN, CNP [facility] ORDERABLES Final R esult documented in this encounter Visit Diagnoses Diagnosis Pelvic and perineal pain Unspecified symptom associated with female genital organs documented in this encounter Additional Health Concerns Assessment Noted Time PHQ-9 Depression Total Score: 13 020 2:00 PM CDT documented as of this encounter Care Teams Director Experimental Medicine Relationship Specialty Start Date End Date Amaya Kowalski APRN, CLAY PRESS OPERATOR [address] [place] [address] PCP - General Advanced Practice Nurse 06/10/18 documented as of this encounter
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
--- OUTSIDE RECORDS SUMMARY | 2024-11-30 18:12 | XMS_ITS | Encounter Summary ---
Author Organization [facility] Address [address] [place] [place] [address] Phone Care Team Providers Care Baling Machine Tender Name Role Phone Amaya Kowalski APRN, CNP Primary Care Provider Reason for Visit * Reason Comments Foot Pain left pinky toe Back Pain Encounter Details Date Type Department Care Team (Late st Contact Info) Description 07/26/2020 1:00 PM CDT Office Visit [facility] - Primary Care - [place] [address] [place] [address] Amaya Kowalski APRN, CNP [address] [place] [address] Injury of left foot, initial [...] against skin, 20 minutes at a time. [place] sparingly and not with ativan If not [...] ?? Smokefree.gov. Go to smokefree.gov or call 018-ZBGJ-DHR (878-239-9485). ?? National Cancer [place] Smoking Quitline. Go to [employer].org/cbg-fmzs-qlm or call 976-51R-MVMQ (024-195-6564). Katrina last reviewed this educational content on 12/30/2016 ?? 2282-4460 [employer]. [address] [place] [address], [place] [address]. All rights reserved. This information is not [...] Pneumonia and Pap * Amaya Kowalski, KENTON, SENIOR PRODUCER - 07/26/2020 1:00 PM CDT Images from [...] [facility] - Primary Care - [place] [address] [place] [address] Shravan Burgos PAC [address] [place] [address] documented as of this encounter [...] AM T: ??07/29/2020 9:44 AM Report ID: [id number] Reading Location: ??[id number] Procedure Note Rajeev Castrejon MD - 07/29/2020 [...] by Rajeev Castrejon M.D., MD: Report ID: [id number] Reading Location: [id number] IMPRESSION: Acute nondisplaced fracture of the left [...] documented as of this encounter Care Teams Baling Machine Tender Relationship Specialty Start Date End Date Amaya Kowalski APRN, DOUGLAS [address] [place] [address] PCP - General Advanced Practice Nurse 06/10/18 documented as of this encounter
--- OUTSIDE RECORDS SUMMARY | 2024-11-30 18:12 | XMS_ITS | Encounter Summary ---
Author Organization [facility] Address [address] [place] [address] Phone Care Team Providers Care Group Controller Name Role Phone Amaya Kowalski APRN, MAIL SORTING SUPERVISOR Primary Care Provider Reason for Visit * Reason Onset Date Comments Head Injury 05/17/2020 Encounter Details Date Type Department Care Team (Late st Contact Info) Description 05/17/2020 Nurse Triage [facility] [address] [place], [place] [id number] Amaya Kowalski, INSPECTOR CLIP ON SUNGLASSES, MAIL SORTING SUPERVISOR [address] [place] [address] Head Injury Social History Tobacco [...] Primary Care - [place] [address] [place] [address] Shravan Burgos, PAC [address] [place] [address] documented as of this encounter Goals Goal Patient Goal Type Associated Problems Recent Progress Patient-Stated? Author Behavioral [facility] Behavioral Health On track(2019 9:50 AM CDT) Yes lEoise Jenkins LCPC Note: Irma reported her goal [...] that trigger mood concerns. Behavioral [facility] Behavioral Health On track(2019 9:50 [...] documented as of this encounter Care Teams Group Controller Relationship Specialty Start Date End Date Amaya Kowalski, INSPECTOR CLIP ON SUNGLASSES, MAIL SORTING SUPERVISOR [address] [place] [address] PCP - General Advanced Practice Nurse 06/10/18 documented as of this encounter
--- OUTSIDE RECORDS SUMMARY | 2024-11-30 18:12 | XMS_ITS | Encounter Summary ---
Author Organization [facility] Address [address] [place] [address] Phone Care Team Providers Care Pulping Machine Operator Name Role Phone Amaya Kowalski APRN, CNP Primary Care Provider Reason for Visit * Reason Comments Medication Refill Encounter Details Date Type Department Care Team (Late st Contact Info) Description 06/26/2020 Refill [facility] [address] [place] [phone] Amaya Kowalski APRN, RASPER MACHINE OPERATOR [address] [place] [address] Medication Refill Social History Tobacco [...] recurrent major depressive disorder (HCC) [facility] - Amaya Yoder APN, RASPER MACHINE OPERATOR 10 months ago Anxiety [facility] - Amaya Yoder APN, RASPER MACHINE OPERATOR 1 year ago Chronic bronchitis with productive mucopurulent cough (HCC) [facility] - Fox Conde PAC 1 year ago Chronic bronchitis, unspecified chronic bronchitis type (HCC) [facility] - Amaya Yoder APN, RASPER MACHINE OPERATOR 1 year ago Cough [facility] - Amaya Yoder, KENTON, RASPER MACHINE OPERATOR Upcoming Appointments COLD ROLLING MACHINE SETTER - Recent and Past Visits Recent Visits Date Type Provider Dept 04/05/20 Office Visit Amaya Kowalski APN, CNP [facility] 08/17/19 Office Visit Am[facility] Kowalski APN, CNP [facility] Showing recent visits within past 460 days [...] CDT Office Visit [facility] - Primary Care - [place] [address] [place] [address] Shravan Burgos, PAPI [address] [place] [address] documented as of this encounter Goals Goal Patient Goal Type Associated Problems Recent Progress Patient-Stated? Author Behavioral [facility] Behavioral Health [...] documented as of this encounter Care Teams Pulping Machine Operator Relationship Specialty Start Date End Date Amaya Kowalski, NEWSPAPER EDITOR MANAGING, RASPER MACHINE OPERATOR [address] [place] [address] PCP - General Advanced Practice Nurse 06/10/18 documented as of this encounter
--- OUTSIDE RECORDS SUMMARY | 2024-11-30 18:12 | XMS_ITS | Encounter Summary ---
Author Organization [facility] Address [address] [place] [address] Phone Care Team Providers Care Global Sales Executive Name Role Phone Amaya Kowalski APRN, CNP Primary Care Provider Reason for Referral * Radiology Services (Routine) - Closed Specialty Diagnoses / Procedures Referred By Contac t Referred To Contact Radiology Diagnoses Pelvic and perineal pain Procedures US PELVIS COMPLETE WITH TRANSVAGINAL Veronika Orantes APRN, CNP [address] [place] [address] Phone: tel: fax: Referral ID Status Reason Start Date Expiration Date Visits Re quested Visits Authorized [id number] Closed 09/04/2020 1 1 Encounter Details Date Type Department Care Team (Late st Contact Info) Description 09/04/2020 Transcribe Orders [facility] Central Scheduling [address] [place] [id number] Veronika Orantes APRN, CNP [address] [place] [address] Pelvic and perineal pain (Primary Dx); Encounter [...] Office Visit [facility] - Primary Care - [place] [address] [place] [address] Shravan Burgos PAC [address] [place] [address] documented as of this encounter Goals Goal Patient Goal Type Associated Problems Recent Progress Patient-Stated? Author Behavioral Health Behavioral Health On track(2019 9:50 AM CDT) Yes Eloise Jenkins, CRAB BUTCHER Note: Irma reported her goal for psychotherapy [...] On track(2019 9:50 AM CDT) Eloise Mix, [facility] Note: Irma will engage in [...] AM T: ??09/14/2020 6:29 AM Report ID: [id number] Reading Location: ??[id number] Procedure Note Zbigniew Flores MD - 09/14/2020 [...] Zbigniew Flores M.D. [place]: LULA Report ID: [id number] Reading Location: [id number] IMPRESSION: No significant abnormality. IUD in satisfactory [...] as of this encounter Care Teams Global Sales Executive Relationship Specialty Start Date End Date Amaya Kowalski, MEGAN, SHOWROOM SALESPERSON [address] [place] [address] PCP - General Advanced Practice Nurse 06/10/18 documented as of this encounter
--- OUTSIDE RECORDS SUMMARY | 2024-11-30 18:12 | XMS_ITS | Encounter Summary ---
Author Organization [employer] Care Team Providers Care Element Winding Machine Tender Name Role Phone Amaya Kowalski APRN, SHALE MINER Primary Care Provider Encounter Details Date Type [...] 03/21/2025 4:30 PM CDT Office Visit [facility] - Primary Care - [place] [address] [place] [address] Shravan Burgos, PAC [address] [place] [address] documented as of this encounter Goals Goal Patient Goal Type Associated Problems Recent Progress Patient-Stated? Author [facility] Behavioral Health On track(2019 9:50 [...] documented as of this encounter Care Teams Element Winding Machine Tender Relationship Specialty Start Date End Date Amaya Kowalski, CODE ENFORCEMENT OFFICER, SHALE MINER [address] [place] [address] PCP - General Advanced Practice Nurse 06/10/18 documented as of this encounter
--- OUTSIDE RECORDS SUMMARY | 2024-11-30 18:12 | XMS_ITS | Encounter Summary ---
Author Organization [facility] Address [address] [place] [address] Phone Care Team Providers Care Motor Rebuilder Name Role Phone Amaya Kowalski APRN, CNP Primary Care Provider Encounter Details Date Type Department Care Team (Latest Contact Info) Description 07/26/2020 1:48 PM CDT - 07/26/2020 11:59 PM CDT [facility] [place] [address] [place] [address] Amaya Kowalski APRN, CNP [address] [place] [address] Discharge Disposition: Discharged to home [...] Office Visit [facility] - Primary Care - [place] [address] [place] [address] Shravan Burgos PAC [address] [place] [address] documented as of this encounter [...] make a change Department associated with goal[facility] Steps to achieve goal: [...] AM T: ??07/29/2020 9:44 AM Report ID: [id number] Reading Location: ??[id number] Procedure Note Rajeev Castrejon MD - 07/29/2020 [...] by Rajeev Castrejon M.D., MD: Report ID: [id number] Reading Location: [id number] IMPRESSION: Acute nondisplaced fracture of the left 5th toe proximal phalanx. Amaya Kowalski APRN, CNP IM DIAGNOSTIC ORDERABL ES Final Result documented in this encounter Visit Diagnoses Not on filedocumented in this encounter Additional Health Concerns Assessment Noted Time PHQ-9 Depression Total Score: 13 04/16/ 020 2:00 PM CDT documented as of this encounter Care Teams Motor Rebuilder Relationship Specialty Start Date End Date Amaya Kowalski APRN, CNP [address] [place] [address] PCP - General Advanced Practice Nurse 06/10/18 documented as of this encounter
--- OUTSIDE RECORDS SUMMARY | 2024-11-30 18:12 | XMS_ITS | Encounter Summary ---
Author Organization [facility] Address [address] [place] [address] Phone Care Team Providers Care Credit Correspondence Clerk Name Role Phone Amaya Kowalski APRN, CNP Primary Care Provider Encounter Details Date Type Department Care Team (Late Contact Info) Description 04/10/2020 [facility]phone [facility] 1 [place] [address] Eloise Jenkins, [facility] Social History Tobacco Use [...] Office Visit [facility] - Primary Care - [address] [place] [address] Shravan Burgos, PAC [address] [place] [address] documented as of this encounter Visit Diagnoses Not on filedocumented in this encounter Additional Health Concerns Assessment Noted Time PHQ-9 Depression Total Score: 9 04/05/20 20 9:22 AM CDT documented as of this encounter Care Teams Credit Correspondence Clerk Relationship Specialty Start Date End Date Amaya Kowalski, EMPLOYMENT SECURITY OFFICER, UNIVERSITY INTERN [address] [place] [address] PCP - General Advanced Practice Nurse 06/10/18 documented as of this encounter
--- OUTSIDE RECORDS SUMMARY | 2024-11-30 18:12 | XMS_ITS | Encounter Summary ---
Author Organization [facility] Address [address] [place] [address] Phone Care Team Providers Care Director Of Transportation Name Role Phone Amaya Kowalski APRN, CNP Primary Care Provider Reason for Visit * Reason Comments Anxiety Depression Encounter Details Date Type Department Care Team (Latest Contact Info) Description 05/23/2020 2:00 PM CDT Outpatient [facility] 1 [place] [address] Myranda Pastor, SHELLFISH MANAGER [address] [place] [address] Eloise Jenkins, HEALTH ASSESSMENT AND TREATMENT TEACHER Moderate episode of recurrent major depressive disorder [...] Patient Instructions * Patient Instructions* Eloise Jenkins, [facility] - 05/23/2020 2:00 PM CDT Images from the original note were not included. If you are in a Mental Health Crisis or having thoughts of harming yourself or others; please call one of the following resources available 24 hours per day: [facility] [phone] [place]: [phone] National Suicide Prevention Hotline: 0-349- 331- TALK (0103) Behavioral Health Response: 583.131.3592 Life Crisis Services: 780-419- HFPL (6534) Crisis Text Line: Text home to 261 807 Call 911 or go to your nearest [...] a crisis. Keep the phone number of [employer] and know the location of your community's [...] when you can. Go to a movie, Knoticegame, mandaeism service, or socialevent. Talk openly with people [...] can cause other physical and emotional problems. Consult A Doctor stephanie reviewed this educational content on 10/29/2019 ?? [phone] [employer], [employer]. [address] [place] [address], [place] [address]. All rights reserved. This information is not intended as a substitute for professional medical care. Always follow your healthcare professional's instructions. 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 Pt verbalized professional goal is towork in [...] [facility] - Primary Care - [place] [address] [place] [address] Shravan Burgos PAC [address] [place] [address] documented as of this encounter Goals Goal [...] Department associated with goal: [facility] Steps to achieve goal: [...] Department associated with goal: [facility] Steps to achieve goal: [...] of this encounter Care Teams Director Of Transportation Relationship Specialty Start Date End Date Amaya Kowalski, MUSIC CRITIC, SCIENTIFIC DIRECTOR [address] [place] [address] PCP - General Advanced Practice Nurse 06/10/18 documented as of this encounter
--- OUTSIDE RECORDS SUMMARY | 2024-11-30 18:12 | XMS_ITS | Encounter Summary ---
Author Organization [employer] Care Team Providers Care Mannequin Refinisher Name Role Phone Amaya Kowalski APRN, CENTRAL OFFICE SUPERVISOR Primary Care Provider Encounter Details Date [...] Visit [facility] - Primary Care - [place] [address] [place] [address] Shravan Burgos, PAC [address] [place] [address] documented as of this encounter Goals Goal Patient Goal Type Associated Problems Recent Progress Patient-Stated? Author [facility] On track(2019 9:50 AM CDT) Yes [...] that trigger mood concerns. [facility] Behavioral Health On track(2019 9:50 [...] documented as of this encounter Care Teams Mannequin Refinisher Relationship Specialty Start Date End Date Amaya Kowalski APRN, CENTRAL OFFICE SUPERVISOR [address] [place] [address] PCP - General Advanced Practice Nurse 06/10/18 documented as of this encounter
--- OUTSIDE RECORDS SUMMARY | 2024-11-30 18:12 | XMS_ITS | Encounter Summary ---
Author Organization [facility] Address [address] [place] [address] Phone Care Team Providers Care Frit Mixer And Burner Name Role Phone Amaya Kowalski APRN, CNP Primary Care Provider Encounter Details Date Type Department Care Team (Late st Contact Info) Description 04/19/2020 Telephone [facility] Health Services 1 [place] [address] Eloise Jenkins, [facility] Social History Tobacco Use Types Packs/Day [...] CDT Office Visit [facility] - Primary Care - [place] [address] [place] [address] Shravan Burgos, PAPI [address] [place] [address] documented as of this encounter [...] Start Date End Date Amaya Kowalski, [place] GUIDE, DESK REPRESENTATIVE [address] [place] [address] PCP - General Advanced Practice Nurse 06/10/18 documented as of this encounter
--- OUTSIDE RECORDS SUMMARY | 2024-11-30 18:12 | XMS_ITS | Encounter Summary ---
Author Organization [facility] Address [address] [place] [address] Phone Care Team Providers Care Bias Machine Operator Name Role Phone Amaya Kowalski APRN, DOUGLAS Primary Care Provider Sravani Ramsay MD Primary Care Provider [phone] Arnold Roberts MD Unavailable Shravan Burgos Primary Care Provider + [phone] Reason for Visit * Reason Comments Medication Refill Encounter Details Date Type Department Care Team (Late st Contact Info) Description 08/22/2020 Refill [facility] [place] [address] [place] [address] Amaya Kowalski APRN, NUMERICAL CONTROL MACHINE TOOL OPERATOR [address] [place] [address] Medication Refill Social History Tobacco [...] episode of recurrent major depressive disorder (HCC) [facility] - Amaya Yoder APN, DOUGLAS 1 year ago An[facility] - Amaya Yoder APN, DOUGLAS 1 year ago Chronic bronchitis with productive mucopurulent cough (HCC) [facility] - Fox Conde PAC 1 year ago Chronic bronchitis, unspecified chronic bronchitis type (HCC) [facility] - Amaya Yoder APN, CNP Upcoming Appointments COMMUNITY SERVICE OFFICER - Recent and Past Visits Recent Visits [...] Description 03/21/2025 4:30 PM CDT Office Visit [facility] Primary Care - [place] [address] [place] [address] Shravan Burgos PAC [address] [place] [address] documented as of this encounter Goals Goal Patient Goal Type Associated Problems Recent Progress Patient-Stated? Author [facility] On track(2019 9:50 AM CDT) Yes Eloise Jenkins, [facility] Note: Irma reported her goal [...] - 19 10/11/2020 10/11/2020 10/13/2020 8:16 AM FEED BLENDER COVID - 19 11/26/2022 11/26/2022 11/26/2022 4:47 PM FEED BLENDER COVID - 19 11/26/2022 11/26/2022 12/06/2022 12:1 9 AM FEED BLENDER Assessment Noted Time PHQ-9 Depression Total Score: 13 020 2:00 PM CDT documented as of this encounter Care Teams Bias Machine Operator Relationship Specialty Start Date End Date Amaya Kowalski, CLOTHING ROOM SUPERVISOR, NUMERICAL CONTROL MACHINE TOOL OPERATOR [address] [place] [address] PCP - General Advanced Practice Nurse 06/10/18 04/22/23 Sravani Ramsay MD [address] [place] [address] PCP - General Family Medicine 04/23/23 12/30/23 Shravan Burgos, [facility] [address] [place] [address] PCP - General Physician Electric Installer 12/31/23 Arnold Roberts MD [address] [place] [address] Consulting Physician Pulmonary Disease 07/26/23 documented as of this encounter
--- OUTSIDE RECORDS SUMMARY | 2024-11-30 18:12 | XMS_ITS | Encounter Summary ---
Author Organization [facility] Address [address] [place] [address] Phone Care Team Providers Care Data Analytics Analyst Name Role Phone Amaya Kowalski APRN, CNP Primary Care Provider Encounter Details Date Type Department Care Team (Late Contact Info) Description 04/12/2020 [facility] 1 [place] [address] Eloise Jenkins, [facility] Social History Tobacco Use Types Packs/Day [...] Primary Care - [address] [place] [address] Shravan Burgos, PAC [address] [place] [address] documented as of this encounter Visit Diagnoses Not on filedocumented in this encounter Additional Health Concerns Assessment Noted Time PHQ-9 Depression Total Score: 9 04/05/20 20 9:22 AM CDT documented as of this encounter Care Teams Data Analytics Analyst Relationship Specialty Start Date End Date Amaya Kowalski, ENTRY LEVEL MECHANICAL ENGINEER, CARD SELLER [address] [place] [address] PCP - General Advanced Practice Nurse 06/10/18 documented as of this encounter
--- OUTSIDE RECORDS SUMMARY | 2024-11-30 18:13 | XMS_ITS | Encounter Summary ---
Author Organization [facility] Address [address] [place] [address] Phone Care Team Providers Care Tool Storage Attendant Name Role Phone Amaya Kowalski APRN, CNP Primary Care Provider Reason for Referral * Radiology Services (STAT with Interpretation) - Closed Specialty Diagnoses / Procedures Referred By Claudio remy Referred To Contact Radiology Diagnoses Cough Wheezing Procedures XR CHEST 2 VIEWS Lina Tan APRN, CNP Phone: tel: fax: Referral ID Status Reason Start Date Expiration Date Visits Re quested Visits Authorized [id number] Closed 03/16/2020 1 1 Reason for Visit * Reason Comments Cough Encounter Details Date Type Department Care Team ([facility] st Contact Info) Description 03/16/2020 12:25 PM CDT Urgent [facility] Visit [facility] [place] [address] [place] [address] Lina Tan APRN, CNP [address] [place] [address] Simple chronic bronchitis (HCC) (Primary Dx); Cough; [...] Body Mass Index 25.42 10/24/2019 3:43 PM PIE DOUGH ROLLER documented in this encounter Progress Notes * [...] canal normal. Nose: Nose normal. Mouth/Throat: Lips: [place]. Mouth: Mucous membranes are moist. Pharynx: Oropharynx [...] Primary Care - [place] [address] [place] [address] Shravan Burgos, PAPI [address] [place] [address] Scheduled Orders Name Type Priority [...] PM T: ??03/16/2020 1:53 PM Report ID: [id number] Reading Location: ??[id number] Procedure Note Rajeev Castrejon MD - 03/16/2020 [...] by Rajeev Castrejon M.D., MD: Report ID: [id number] Reading Location: [id number] IMPRESSION: No radiographic evidence of an acute cardiopulmonary abnormality. Lina Tan CANDY DECORATOR, SECURITY ASSOCIATE IMG DIAGNOSTIC OR DERABLES Final Result documented [...] documented as of this encounter Care Teams Tool Storage Attendant Relationship Specialty Start Date End Date Amaya Kowalski, CANDY DECORATOR, SECURITY ASSOCIATE [address] [place] [address] PCP - General Advanced Practice Nurse 06/10/18 documented as of this encounter
--- OUTSIDE RECORDS SUMMARY | 2024-11-30 18:13 | XMS_ITS | Encounter Summary ---
Author Organization [facility] Address [address] [facility] [place] [address] Phone Care Team Providers Care Emergency Response Technician Name Role Phone Amaya Kowalski APRN, CNP Primary Care Provider Reason for Visit * Reason Comments Medication Refill Encounter Details Date Type Department Care Team (Late st Contact Info) Description 12/02/2019 [facility] [address] [place] [address] Amaya Kowalski APRN, CNP [address] [place] [address] Medication Refill Social History Tobacco [...] Kowalski APN, CNP - 12/04/2019 11:33 AM LANDSCAPE ARCHITECT Approved SCAPE ARCHITECT * Telephone Encounter - Amaya Jackman, RN - 12/04/2019 11:05 AM LANDSCAPE ARCHITECT Requested Prescriptions Pending Prescriptions Disp Refills LORazepam (ATIVAN) 1 MG Tablet [Pharmacy Med Name: LORAZEPAM 1 MG TABLET] 30 Tab 0 Sig: TAKE 1 TABLET BY MOUTH THREE TIMES A DAY NEEDED FOR ANXIETY There is no refill protocol information for this order SCAPE ARCHITECT documented in this encounter Plan of Treatment Upcoming Encounters Date Type Department Care Team (Late st Contact Info) Description 03/21/2025 4:30 PM CDT Office Visit [facility] - Primary Care - [place] [address] [place] [address] Shravan Burgos PAC [address] [place] [address] documented as of this encounter Visit Diagnoses Not on filedocumented in this encounter Additional Health Concerns Assessment Noted Time PHQ-9 Depression Total Score: 0 08/17/20 19 1:00 PM CDT documented as of this encounter Care Teams Emergency Response Technician Relationship Specialty Start Date End Date Amaya Kowalski, PIERCER, TECHNOLOGY PROGRAM MANAGER [address] [place] [address] PCP - General Advanced Practice Nurse 06/10/18 documented as of this encounter
--- OUTSIDE RECORDS SUMMARY | 2024-11-30 18:13 | XMS_ITS | Encounter Summary ---
Author Organization [facility] Address [address] [place] [address] Phone Care Team Providers Care Brewing Technician Name Role Phone Amaya Kowalski APRN, CNP Primary Care Provider Encounter Details Date Type Department Care Team (Late Contact Info) Description 04/08/2020 [facility] 1 [place] [address] Eloise Jenkins, [facility] Social History Tobacco Use Types [...] Visit [facility] - Primary Care - [address] [place] [address] Shravan Burgos, PAC [address] [place] [address] documented as of this encounter Visit Diagnoses Not on filedocumented in this encounter Additional Health Concerns Assessment Noted Time PHQ-9 Depression Total Score: 9 04/05/20 20 9:22 AM CDT documented as of this encounter Care Teams Brewing Technician Relationship Specialty Start Date End Date Amaya Kowalski, LEGAL BILLER, BEDSPREAD CUTTER HAND [address] [place] [address] PCP - General Advanced Practice Nurse 06/10/18 documented as of this encounter
--- OUTSIDE RECORDS SUMMARY | 2024-11-30 18:13 | XMS_ITS | Encounter Summary ---
Author Organization [facility] Address [address] [place] [address] Phone Care Team Providers Care Product Examiner Name Role Phone Amaya Kowalski APRN, GAME FARM HELPER Primary Care Provider Reason for Visit * Reason Onset Date Comments Wheezing 03/16/2020 Cough 03/16/2020 Shortness of Breath 03/16/2020 Encounter Details Date Type Department Care Team (Late st Contact Info) Description 03/16/2020 Nurse Triage [facility] [address] [place] [address] Amaya Kowalski, MEGAN, GAME FARM HELPER [address] [place] [address] Wheezing; Cough; Shortness of Breath Social History [...] hours. States she will go to the [facility] care in [place]. See care advice and disposition for guideline. [...] from working or sleeping Protocols used: BREATHING [id number] documented in this encounter Plan of Treatment Upcoming Encounters Date Type Department Care Team (Late st Contact Info) Description 03/21/2025 4:30 PM CDT Office Visit [facility] - Primary Care - [place] [address] [place] [address] Shravan Burgos PAC [address] [place] [address] documented as of this encounter Visit Diagnoses Not on filedocumented in this encounter Additional Health Concerns Assessment Noted Time PHQ-9 Depression Total Score: 0 08/17/20 19 1:00 PM CDT documented as of this encounter Care Teams Product Examiner Relationship Specialty Start Date End Date Amaya Kowalski, WASTEWATER DESIGN ENGINEER, GAME FARM HELPER [address] [place] [address] PCP - General Advanced Practice Nurse 06/10/18 documented as of this encounter
--- OUTSIDE RECORDS SUMMARY | 2024-11-30 18:13 | XMS_ITS | Encounter Summary ---
Author Organization [facility] Address [address] [place] [address] Phone Care Team Providers Care Patent Paralegal Name Role Phone Amaya Kowalski APRN, CNP Primary Care Provider Reason for Visit * Reason Comments Medication Refill Encounter Details Date Type Department Care Team (Late st Contact Info) Description 03/21/2020 Refill [facility] [address] [place] [address] Amaya Kowalski, MEGAN, SETTER HELPER [address] [place] [address] Medication Refill Social History Tobacco [...] * Telephone Encounter - Amaya Kowalski, [place], SETTER HELPER - 03/22/2020 7:54 AM CDT Approved * [...] Recent Outpatient Visits 7 months ago Anxiety [facility] - Amaya Yoder APN, CNP 1 year ago Chronic bronchitis with productive mucopurulent cough (HCC) [facility] - Fox Conde PAC 1 year ago Chronic bronchitis, unspecified chronic bronchitis type (HCC) [facility] - Amaya Yoder APN, CNP 1 year ago Cough [facility] - Amaya Yoder APN, CNP 1 year ago Urinary frequency [facility] - Amaya Yoder APN, CNP Upcoming Appointments Future Appointments In 2 weeks Amaya Kowalski APN, CNP [facility] - [address] Failed - May refill [...] Description 03/21/2025 4:30 PM CDT Office Visit [facility] - [place] [address] [place] [address] Shravan Burgos, PAC [address] [place] [address] documented as of this encounter Visit Diagnoses Not on filedocumented in this encounter Additional Health Concerns Assessment Noted Time PHQ-9 Depression Total Score: 0 08/17/20 19 1:00 PM CDT documented as of this encounter Care Teams Patent Paralegal Relationship Specialty Start Date End Date Amaya Kowalski, MANDOLIN REPAIRER, SETTER HELPER [address] [place] [address] PCP - General Advanced Practice Nurse 06/10/18 documented as of this encounter
--- OUTSIDE RECORDS SUMMARY | 2024-11-30 18:13 | XMS_ITS | Encounter Summary ---
Author Organization [facility] Address [address] [place] [address] Phone Care Team Providers Care Finished Hardware Erector Name Role Phone Amaya Kowalski APRN, CNP Primary Care Provider Reason for Visit * Reason Comments Medication Refill Encounter Details Date Type Department Care Team (Late st Contact Info) Description 01/01/2020 [facility] [place] [address] [place] [address] Amaya Kowalski, MEGAN, RELIEF MAP MODELER [address] [place] [address] Medication Refill Social History Tobacco [...] Amaya Jackman, RN - 01/01/2020 12:19 PM MAINTENANCE TECHNICIAN 2ND SHIFT Requested Prescriptions Pending Prescriptions Disp Refills LORazepam (ATIVAN) 1 MG Tablet [Pharmacy Med Name: LORAZEPAM 1 MG TABLET] 30 Tab 0 Sig: TAKE 1 TABLET BY MOUTH THREE TIMES A DAY NEEDED FOR ANXIETY There is no refill protocol information for this order TENANCE TECHNICIAN 2ND SHIFT documented in this encounter Plan of Treatment Upcoming Encounters Date Type Department Care Team (Late st Contact Info) Description 03/21/2025 4:30 PM CDT [facility] Primary Care - [place] [address] [place] [address] Shravan Burgos PAC [address] [place] [address] documented as of this encounter Visit Diagnoses Not on filedocumented in this encounter Additional Health Concerns Assessment Noted Time PHQ-9 Depression Total Score: 0 08/17/20 19 1:00 PM CDT documented as of this encounter Care Teams Finished Hardware Erector Relationship Specialty Start Date End Date Amaya Kowalski, HEALTH ANALYST, RELIEF MAP MODELER [address] [place] [address] PCP - General Advanced Practice Nurse 06/10/18 documented as of this encounter
--- OUTSIDE RECORDS SUMMARY | 2024-11-30 18:13 | XMS_ITS | Encounter Summary ---
Author Organization [facility] Address [address] [place] [address] Phone Care Team Providers Care Librarian Helper Name Role Phone Amaya Kowalski APRN, [...] Expiration Date Visits Re quested Visits Authorized [id number] Closed 04/05/2020 1 1 Scheduling Instructions Irma [...] Tobacco use disorder Other chronic sinusitis Leukocytosis Reason for Visit * Reason Comments Anxiety f/u Wheezing was seen in Prompt c are//still using nebulizer Cough hasnt smoked in 5 da ys Encounter Details Date Type Department Care Team (Late st Contact Info) Description 04/05/2020 9:00 AM CDT Office Visit [facility] [place] [address] [place] [address] Amaya Kowalski, LABORATORY CLERK, POLISH MAKER [address] [place] [address] Moderate episode of recurrent major depressive disorder [...] ?? Smokefree.gov. Go to smokefree.gov or call 473-ULEI-UJL (095-657-3890). ?? National Cancer [place] Smoking Quitline. Go to Parametric.org/uih-inyl-pkv or call 242-25X-SAXP (910-297-0829). [employer] last reviewed this educational content on 12/30/2016 ?? 4104-7414 [employer]. [address] [place] [address], [place] [address]. All rights reserved. This information is not [...] follow-up on her chronic bronchitis from the [facility] care. She also wants to discuss [...] improved since she was seen in the [facility] care. She does continue to use [...] 03/21/2025 4:30 PM CDT Office Visit [facility] - Primary Care - [place] [address] [place] [address] Shravan Burgos PAC [address] [place] [address] Scheduled Referrals Name Type Priority Associated Diagnoses [...] as of this encounter Care Teams Librarian Helper Relationship Specialty Start Date End Date Amaya Kowalski, LABORATORY CLERK, POLISH MAKER [address] [place] [address] PCP - General Advanced Practice Nurse 06/10/18 documented as of this encounter
--- OUTSIDE RECORDS SUMMARY | 2024-11-30 18:13 | XMS_ITS | Encounter Summary ---
Author Organization [facility] Address [address] [facility] [place] [address] Phone Care Team Providers Care President Financial Institution Name Role Phone Amaya Kowalski APRN, CNP Primary Care Provider Reason for Visit * Reason Comments Medication Refill Encounter Details Date Type Department Care Team (Late st Contact Info) Description 02/07/2020 [facility] [address] [place] [phone] Amaya Kowalski APRN, CNP [address] [place] [address] Medication Refill Social History Tobacco [...] PM CDT Approved * Telephone Encounter - mAaya Jackman, RN - 02/07/2020 11:40 AM CDT [...] - Primary Care - [place] [address] [place] [address] Shravan Burgos PAC [address] [place] [address] documented as of this encounter Visit Diagnoses Not on filedocumented in this encounter Additional Health Concerns Assessment Noted Time PHQ-9 Depression Total Score: 0 08/17/20 19 1:00 PM CDT documented as of this encounter Care Teams President Financial Institution Relationship Specialty Start Date End Date Amaya Kowalski, JET DYEING MACHINE OPERATOR, BUSINESS EDUCATION INSTRUCTOR [address] [place] [address] PCP - General Advanced Practice Nurse 06/10/18 documented as of this encounter
--- OUTSIDE RECORDS SUMMARY | 2024-11-30 18:13 | XMS_ITS | Encounter Summary ---
Author Organization [facility] Care Team Providers Care Care Process Manager Name Role Phone Amaya Kowalski APRN, ENVIRONMENTAL JOURNALIST Primary Care Provider Encounter Details Date Type [...] Medical Group - Primary Care - [place] [address] [place] [address] Shravan Burgos PAC [address] [place] [address] documented as of this encounter Visit Diagnoses Not on filedocumented in this encounter Additional Health Concerns Assessment Noted Time PHQ-9 Depression Total Score: 0 08/17/20 19 1:00 PM CDT documented as of this encounter Care Teams Care Process Manager Relationship Specialty Start Date End Date Amaya Kowalski, CORRESPONDENCE TRANSCRIBER, ENVIRONMENTAL JOURNALIST [address] [place] [address] PCP - General Advanced Practice Nurse 06/10/18 documented as of this encounter
--- OUTSIDE RECORDS SUMMARY | 2024-11-30 18:13 | XMS_ITS | Encounter Summary ---
Author Organization [facility] Care Team Providers Care Vp Mobile Products Name Role Phone Amaya Kowalski APRN, BEFORE AND AFTER SCHOOL DAYCARE WORKER Primary Care Provider Encounter Details Date Type [...] Office Visit [facility] - Primary Care - [place] [address] [place] [address] Shravan Burgos PAC [address] [place] [address] documented as of this encounter Visit Diagnoses Not on filedocumented in this encounter Additional Health Concerns Assessment Noted Time PHQ-9 Depression Total Score: 9 04/05/20 20 9:22 AM CDT documented as of this encounter Care Teams Vp Mobile Products Relationship Specialty Start Date End Date Amaya Kowalski, PSYCHOLOGY PROFESSOR, BEFORE AND AFTER SCHOOL DAYCARE WORKER [address] [place] [address] PCP - General Advanced Practice Nurse 06/10/18 documented as of this encounter
--- OUTSIDE RECORDS SUMMARY | 2024-11-30 18:13 | XMS_ITS | Encounter Summary ---
Author Organization [facility] Address [address] [facility] [place] [address] Phone Care Team Providers Care Lighting Designer Name Role Phone Amaya Kowalski APRN, CNP Primary Care Provider Reason for Visit * Reason Comments Medication Refill Encounter Details Date Type Department Care Team (Late st Contact Info) Description 03/07/2020 [facility] [place] [place] [address] [place] [address] Amaya Kowalski APRN, CNP [address] [place] [address] Medication Refill Social History Tobacco [...] Primary Care - [place] [address] [place] [phone] Shravan Burgos PAC [address] [place] [address] documented as of this encounter Visit Diagnoses Not on filedocumented in this encounter Additional Health Concerns Assessment Noted Time PHQ-9 Depression Total Score: 0 08/17/20 19 1:00 PM CDT documented as of this encounter Care Teams Lighting Designer Relationship Specialty Start Date End Date Amaya Kowalski APRN, CNP [address] [place] [id number] PCP - General Advanced Practice Nurse 06/10/18 documented as of this encounter
--- OUTSIDE RECORDS SUMMARY | 2024-11-30 18:13 | XMS_ITS | Encounter Summary ---
Author Organization [facility] Address [address] [place] [address] Phone Care Team Providers Care Environmental Designer Name Role Phone Amaya Kowalski APRN, CNP Primary Care Provider Reason for Referral * Radiology Services (STAT with Interpretation) - Closed Specialty Diagnoses / Procedures Referred By Claudio remy Referred To Contact Radiology Diagnoses Cough Wheezing Procedures XR CHEST 2 VIEWS Lina Tan APRN, DOUGLAS Phone: tel: fax: Referral ID Status Reason Start Date Expiration Date Visits Re quested Visits Authorized [id number] Closed 03/16/2020 1 1 Reason for Visit * Radiology Services (STAT with Interpretation) - Closed Specialty Diagnoses / Procedures Referred By Claudio remy Referred To Contact Radiology Diagnoses Cough Wheezing Procedures XR CHEST 2 VIEWS Lina Tan APRN, NATIONAL RECRUITER Phone: tel: fax: Referral ID Status Reason Start Date Expiration Date Visits Re quested Visits Authorized [id number] Closed 03/16/2020 1 1 Encounter Details Date Type Department Care Team ([facility] st Contact Info) Description 03/16/2020 1:37 PM CDT - 03/16/2020 11:59 PM CDT Hospital Encounter [facility] Diagnostic Radiology [address] [place] [address] Lina Tan APRN, NATIONAL RECRUITER [address] [place] [address] Discharge Disposition: Discharged to home or Selfcare [...] Visit [facility] - Primary Care - [place] [address] [place] [address] Shravan Burgos, PAC [address] [place] [address] documented as of this [...] PM T: ??03/16/2020 1:53 PM Report ID: [id number] Reading Location: ??[id number] Procedure Note Rajeev Castrejon MD - 03/16/2020 [...] by Rajeev Castrejon M.D., MD: Report ID: [id number] Reading Location: [id number] IMPRESSION: No radiographic evidence of an acute cardiopulmonary abnormality. DOUGLAS Cardenas APRN DIAGNOSTIC OR DERABLES Final Result documented in this encounter Visit Diagnoses Diagnosis Cough Wheezing documented in this encounter Additional Health Concerns Assessment Noted Time PHQ-9 Depression Total Score: 0 08/17/20 19 1:00 PM CDT documented as of this encounter Care Teams Environmental Designer Relationship Specialty Start Date End Date Amaya Kowalski APRN, CNP [address] [place] [address] PCP - General Advanced Practice Nurse 06/10/18 documented as of this encounter
--- OUTSIDE RECORDS SUMMARY | 2024-11-30 18:18 | XMS_ITS | Clinical Summary ---
Author Organization [facility] Medical Office Building [facility] Address [address] [place] [address] Care Team Providers Care Senior Finance Manager Name Role Phone Amaya Kowalski NP Primary Care Provider [phone] [phone] Allergies Active Allergy Reactions Criticality Noted Date [...] 05/11/2017 Assessment & Plan (10/29/2017 12:22 PM NURSE STAFF COMM[facility]ITY [facility]): Anxiety disorder does not seem to be [...] on file Legal Sex Female 3:28 AM NURSE STAFF COMMUNITY HEALTH Gender Identity Not on file Sexual Orientation [...] Treatment Not on file Insurance Care Teams Senior Finance Manager Relationship Specialty Start Date End Date Amaya Kowalski NP PCP - General Nurse Practitioner 09/25/20
--- OUTSIDE RECORDS SUMMARY | 2024-11-30 18:18 | XMS_ITS | Referral Summary ---
Author Organization [facility] Medical Office Building A Address [address] [place] [address] Care Team Providers Care Med Spa Manager Name Role Phone Amaya Kowalski NP Primary Care Provider [phone] [phone] Allergies Active Allergy Reactions Criticality Noted Date [...] 05/11/2017 Assessment & Plan (10/29/2017 12:22 PM OCEAN EXPORT COORDINATOR): Anxiety disorder does not seem to be [...] on file Legal Sex Female 3:28 AM OCEAN EXPORT COORDINATOR Gender Identity Not on file Sexual [...] Plan of Treatment Not on file Insurance [facility] Address: [facility] [id number] [place] [phone] [facility] Address: [facility] [address] [place] [address] Care Teams Med Spa Manager Relationship Specialty Start Date End Date Amaya Kowalski NP PCP - General Nurse Practitioner 09/25/20
--- OUTSIDE RECORDS SUMMARY | 2024-11-30 18:19 | XMS_ITS | Encounter Summary ---
Author Organization [facility] Address [address] [place] [address] Care Team Providers Care Wire Fence Erector Name Role Phone Amaya Kowalski EDUCATION DEPARTMENT CHAIR Primary Care Provider [phone] [phone] Encounter Details Date Type Department Care Team (Late st Contact Info) Description 06/26/2021 2:55 PM CDT Lab [address] [address] Loss of taste Social History Tobacco Use Types Packs/Day Years Used Date Smoking Tobacco: Some Days Smokeless Tobacco: Never Alcohol Use Standard Drinks/Week Comments Yes 0 (1 standard drink = 0.6 oz pur e alcohol) Comments No Sex and Gender Information Value Date Recorded Sex Assigned at Not on file Legal Sex Female 3:28 AM HAUL TRUCK DRIVER Gender Identity Not on file Sexual [...] . ??This test is performed using the [employer] Xpert Xpress assay. This is a real-time [...] 4:12 PM CDT Patient is employed by/enrolled at:->[employer] [facility] [employer] What is the reason for testing?->Symptoms of COVID-19 in high-risk group Date of Symptom Onset->06/26/21 us Christi Henry MD LAB MICROBIOLOGY - GENERAL ORDERABLES Final Result [place] CORNELL [address] [place] [address] documented in this encounter Visit Diagnoses Diagnosis Loss of taste Disturbances of sensation of smell and taste documented in this encounter Additional Health Concerns Infection Onset Date Last Indicated Resolved Time COVID: Suspected 06/26/2021 06/26/2021 06/26/2021 4:12 PM CDT documented as of this encounter Care Teams Wire Fence Erector Relationship Specialty Start Date End Date Amaya Kowalski NP PCP - General Nurse Practitioner 09/25/20 documented as of this encounter
--- OUTSIDE RECORDS SUMMARY | 2024-11-30 18:19 | XMS_ITS | Encounter Summary ---
Author Organization [facility] Healthcare Address [address] [place] [address] Care Team Providers Care Laundry Tub Maker Name Role Phone Amaya Kowalski STEFFEN HOUSE SUPERVISOR Primary Care Provider [phone] [phone] Encounter Details Date Type Department Care Team (Late st Contact Info) Description 07/29/2021 Telephone [facility] [address] [place] [address] Room 3420 (Third Floor) [place] [address] Citlali Kowalski February Social History Tobacco Use Types Packs/Day Years Used Date Smoking Tobacco: Some Days Smokeless Tobacco: Never Alcohol Use Standard Drinks/Week Comments Yes 0 (1 standard drink = 0.6 oz pur e alcohol) Comments No Sex and Gender Information Value Date Recorded Sex Assigned at Not on file Legal Sex Female 3:28 AM APPLICATION SECURITY SPECIALIST Gender Identity Not on file Sexual [...] documented as of this encounter Care Teams Laundry Tub Maker Relationship Specialty Start Date End Date Amaya Kowalski NP PCP - General Nurse Practitioner 09/25/20 documented as of this encounter
--- OUTSIDE RECORDS SUMMARY | 2024-11-30 18:19 | XMS_ITS | Encounter Summary ---
Author Organization [facility] Healthcare Address [address] [place] [address] Care Team Providers Care Industrial Property Appraiser Name Role Phone Amaya Kowalski DIESEL TRUCK DRIVER Primary Care Provider [phone] [phone] Reason for Visit * Reason Comments PT Treatment Encounter Details Date Type Department Care Team (Late st Contact Info) Description 12/16/2020 4:45 PM FLOOR COVERINGS SALESPERSON Therapy [facility] Physical Therapy [address] Rehabilitation [facility] [place] [address] Marquita Vines, INSTALLER SOFT TOP Low back pain, unspecified back pain laterality, [...] on file Legal Sex Female 3:28 AM FLOOR COVERINGS SALESPERSON Gender Identity Not on file Sexual Orientation Not on file documented as of this encounter Progress Notes * Marquita Vines, INSTALLER SOFT TOP - 12/16/2020 4:45 PM CST PT Daily [...] 1650 End Time: 1733 Marquita Vines PTA R COVERINGS SALESPERSON documented in this encounter Plan of Treatment Not on file documented as of this encounter Visit Diagnoses Diagnosis Low back pain, unspecified back pain laterality, unspecified chronicity, unspecified whether sciatica present- Primary documented in this encounter Care Teams Industrial Property Appraiser Relationship Specialty Start Date End Date Amaya Kowalski NP PCP - General Nurse Practitioner 09/25/20 documented as of this encounter
--- OUTSIDE RECORDS SUMMARY | 2024-11-30 18:19 | XMS_ITS | Encounter Summary ---
Author Organization [facility] Address [address] [facility] [address] [place] [address] Care Team Providers Care Crimper Assembler Name Role Phone Amaya Kowalski NP Primary Care Provider [phone] Reason for Visit * Reason Onset Date Comments Covid-19 Home Monitoring 07/12/2021 Encounter Details Date Type Department Care Team (Late st Contact Info) Description 07/12/[address] [facility] Accountable Care Organization [address] [place] [address] Kelly Pina CMA [address] [place] [address] Covid-19 Home Monitoring Social History Tobacco Use Types Packs/Day Years Used Date Smoking Tobacco: Some Days Smokeless Tobacco: Never Alcohol Use Standard Drinks/Week Comments Yes 0 (1 standard drink = 0.6 oz pur e alcohol) Comments No Sex and Gender Information Value Date Recorded Sex Assigned at Not on file Legal Sex Female 3:28 AM ARMHOLE BASTER JUMPBASTING Gender Identity Not on file Sexual Orientation [...] documented as of this encounter Care Teams Crimper Assembler Relationship Specialty Start Date End Date Amaya Kowalski NP PCP - General Nurse Practitioner 09/25/20 documented as of this encounter
--- OUTSIDE RECORDS SUMMARY | 2024-11-30 18:19 | XMS_ITS | Encounter Summary ---
Author Organization [facility] Medical Group Address [address] [facility] [address] [place] [address] Care Team Providers Care Bottle Blower Name Role Phone Amaya Kowalski NP Primary Care Provider [phone] Reason for Visit * Reason Onset Date Comments Covid-19 Home Monitoring 07/08/2021 non res ponder Encounter Details Date Type Department Care Team (Late st Contact Info) Description 07/08/2021 Telephone [facility] Accountable Care Organization [address] [place] [address] Hannah Beaver LPN [address] [place] [address] Covid-19 Home Monitoring (non responder) Social History Tobacco Use Types Packs/Day Years Used Date Smoking Tobacco: Some Days Smokeless Tobacco: Never Alcohol Use Standard Drinks/Week Comments Yes 0 (1 standard drink = 0.6 oz pur e alcohol) Comments No Sex and Gender Information Value Date Recorded Sex Assigned at Not on file Legal Sex Female 3:28 AM STORES LABORER Gender Identity Not on file Sexual Orientation [...] documented as of this encounter Care Teams Bottle Blower Relationship Specialty Start Date End Date Amaya Kowalski NP PCP - General Nurse Practitioner 09/25/20 documented as of this encounter
--- OUTSIDE RECORDS SUMMARY | 2024-11-30 18:19 | XMS_ITS | Encounter Summary ---
Author Organization [facility] Medical Group Address [address] [facility] [address] [place] [address] Care Team Providers Care Plate Filler Name Role Phone Amaya Kowalski SHIP'S ELECTRONIC WARFARE OFFICER Primary Care Provider [phone] Reason for Visit * Reason Onset Date Comments Covid-19 Home Monitoring 06/30/2021 Non Res ponder Encounter Details Date Type Department Care Team (Late st Contact Info) Description 06/30/2021 Telephone [facility] Accountable Care Organization [address] [place] [address] Cheryl Turner MA [address] [place] [address] Covid-19 Home Monitoring (Non Responder) Social History Tobacco Use Types Packs/Day Years Used Date Smoking Tobacco: Some Days Smokeless Tobacco: Never Alcohol Use Standard Drinks/Week Comments Yes 0 (1 standard drink = 0.6 oz pur e alcohol) Comments No Sex and Gender Information Value Date Recorded Sex Assigned at Not on file Legal Sex Female 3:28 AM MEAT BONER Gender Identity Not on file Sexual Orientation [...] documented as of this encounter Care Teams Plate Filler Relationship Specialty Start Date End Date Amaya Kowalski NP PCP - General Nurse Practitioner 09/25/20 documented as of this encounter
--- OUTSIDE RECORDS SUMMARY | 2024-11-30 18:19 | XMS_ITS | Encounter Summary ---
Author Organization [facility] Healthcare Address [address] [place] [address] Care Team Providers Care Project Director Name Role Phone Amaya Kowalski PROJECT MANAGEMENT PROFESSIONAL Primary Care Provider [phone] Reason for Visit * Reason Onset Date Comments Scheduling Appointments 10/07/2020 Encounter Details Date Type Department Care Team (Late st Contact Info) Description 10/07/2020 Telephone [facility] Orthopedic Spine [address] [facility] 4th [address] [place] [address] Reyna Jaimes Scheduling Appointments Social History Tobacco Use Types Packs/Day Years Used Date Smoking Tobacco: Some Days Smokeless Tobacco: Never Alcohol Use Standard Drinks/Week Comments Yes 0 (1 standard drink = 0.6 oz pur e alcohol) Comments No Sex and Gender Information Value Date Recorded Sex Assigned at Not on file Legal Sex Female 3:28 AM ANDROID UI DEVELOPER Gender Identity Not on file Sexual Orientation Not on file documented as of this encounter Miscellaneous Notes * Telephone Encounter - Theodore Reyna - 10/07/2020 11:29 AM CST ----- Message from Brandyn Grimaldo MD sent at 10/05/2020 11:20 AM ANDROID UI DEVELOPER ----- Regarding: RE: [facility] Spine Referral Hi Reyna, She may be referred to Dr. Malagon's clinic first and if her insurance does not cover the CAM visit and she would not like to pay the out of pocket fee, then she can be scheduled in the [facility], next available, no overbook. Kimani Milligan ----- Message ----- From: Reyna Jaimes Sent: 10/02/2020 2:40 PM ANDROID UI DEVELOPER To: Brandyn Grimaldo MD Subject: [facility] Spine Referral Hi Dr Grimaldo I called this patient today to schedule a New Patient appt for Ortho Spine per the approved referral. While on the phone, the patient told me it was her understanding that she will be seeing a scoliosis specialist, Dr Malagon, and not the resident clinic. I see she has [employer] insurance. Would you like the patient to be scheduled in the [facility] or the [facility]? Srini Orellana OID UI DEVELOPER documented in this encounter Plan of Treatment Not on file documented as of this encounter Visit Diagnoses Not on filedocumented in this encounter Care Teams Project Director Relationship Specialty Start Date End Date Amaya Kowalski NP PCP - General Nurse Practitioner 09/25/20 documented as of this encounter
--- OUTSIDE RECORDS SUMMARY | 2024-11-30 18:19 | XMS_ITS | Encounter Summary ---
Author Organization [facility] Healthcare Address [address] [place] [address] Care Team Providers Care Pai Gow Dealer Name Role Phone Amaya Kowalski GARMENT STEAMER Primary Care Provider [phone] [phone] Reason for Visit * Reason Comments PT Treatment Encounter Details Date Type Department Care Team (Late st Contact Info) Description 11/25/2020 4:00 PM SENIOR MECHANICAL ENGINEER Therapy [facility] Physical Therapy [address] Rehabilitation & [place] [address] Elza Tsai, PT Low back pain, unspecified [...] file Legal Sex Female 3:28 AM SENIOR MECHANICAL ENGINEER Gender Identity Not on file Sexual [...] 1600 End Time: 1654 Elza Tsai PT OR MECHANICAL ENGINEER documented in this encounter Plan of Treatment Not on file documented as of this encounter Visit Diagnoses Diagnosis Low back pain, unspecified back pain laterality, unspecified chronicity, unspecified whether sciatica present- Primary documented in this encounter Care Teams Pai Gow Dealer Relationship Specialty Start Date End Date Amaya Kowalski NP PCP - General Nurse Practitioner 09/25/20 documented as of this encounter
--- OUTSIDE RECORDS SUMMARY | 2024-11-30 18:19 | XMS_ITS | Encounter Summary ---
Author Organization [facility] Healthcare Address [address] [place] [address] Care Team Providers Care Leadership Development Consultant Name Role Phone Amaya Kowalski DESIGN DRAFTER CHIEF Primary Care Provider +1 [phone] Reason for Visit * Reason Comments PT Treatment Encounter Details Date Type Department Care Team (Late st Contact Info) Description 12/18/2020 4:45 PM PURCHASING MANAGER Therapy [facility] Physical Therapy [address] [facility] [place] [address] Elza Tsai, PT Low back pain, unspecified [...] on file Legal Sex Female 3:28 AM PURCHASING MANAGER Gender Identity Not on file Sexual [...] 1643 End Time: 1723 Elza Tsai PT HASING MANAGER documented in this encounter Plan of Treatment Not on file documented as of this encounter Visit Diagnoses Diagnosis Low back pain, unspecified back pain laterality, unspecified chronicity, unspecified whether sciatica present- Primary documented in this encounter Care Teams Leadership Development Consultant Relationship Specialty Start Date End Date Amaya Kowalski NP PCP - General Nurse Practitioner 09/25/20 documented as of this encounter
--- OUTSIDE RECORDS SUMMARY | 2024-11-30 18:19 | XMS_ITS | Encounter Summary ---
Author Organization [facility] Address [address] [place] [address] Care Team Providers Care Apparel Patternmaker Name Role Phone Amaya Kowalski VISUALIZATION DEVELOPER Primary Care Provider +1 [phone] Encounter Details Date Type Department Care Team (Late st Contact Info) Description 04/27/2023 Telephone [facility] Primary Care at [address] [place] [address] Melonie Colin VISUALIZATION DEVELOPER [address] [place] [address] Social History Tobacco Use Types Packs/Day Years Used Date Smoking Tobacco: Some Days Smokeless Tobacco: Never Alcohol Use Standard Drinks/Week Comments Yes 0 (1 standard drink = 0.6 oz pur e alcohol) Comments No Sex and Gender Information Value Date Recorded Sex Assigned at Not on file Legal Sex Female 3:28 AM WIRE COILER Gender Identity Not on file Sexual Orientation [...] on filedocumented in this encounter Care Teams Apparel Patternmaker Relationship Specialty Start Date End Date Amaya Kowalski NP PCP - General Nurse Practitioner 09/25/20 documented as of this encounter
--- OUTSIDE RECORDS SUMMARY | 2024-11-30 18:19 | XMS_ITS | Encounter Summary ---
Author Organization [facility] Healthcare Address [address] [place] [address] Care Team Providers Care Structural Shop Helper Name Role Phone Amaya Kowalski POLL CLERK Primary Care Provider +1 [phone] Encounter Details Date Type Department Care Team (Late st Contact Info) Description 06/26/2021 Telephone [facility] [address] [place] [address] Room 3420 (Third Floor) [place] [address] Eva Au RN Social History Tobacco Use Types Packs/Day Years Used Date Smoking Tobacco: Some Days Smokeless Tobacco: Never Alcohol Use Standard Drinks/Week Comments Yes 0 (1 standard drink = 0.6 oz pur e alcohol) Comments No Sex and Gender Information Value Date Recorded Sex Assigned at Not on file Legal Sex Female 3:28 AM DIRECTOR OF PROMOTIONS Gender Identity Not on file Sexual Orientation Not on file documented as of this encounter Miscellaneous Notes * Addendum Note - Evangelina Ryder - 06/26/2021 2:52 PM CDTAddended by: EVANGELINA RYDER on: 06/26/2021 02:52 PM Modules accepted: Orders * Telephone Encounter - Phoebe Ricardo RN - 06/26/2021 10:08 AM CDT Forward to [employer]. * Telephone Encounter - Eva Au RN - 06/26/2021 9:42 AM CDT Employee COVID-19 Screening 06/26/2021 Vaccine related call? No Employee/Student ID# [id number] Are you an employee or student? 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 Script A2 (Stay home and test) [...] Occupational Health will notify you and your manager software when you can return to work. ??? Should your test result positive, [facility] will work with you to identify any close contacts you may have had at work. [facility] will then alert your work contacts directly; you do not have to. Your yard supervisor should consult with [facility] if they have any questions and before any communication with coworkers about a positive test. [facility] will help ensure that coworkers potentially at risk are notified and given appropriate advice without unnecessary disclosure of personal health information. ??? We will send you an email with self-quarantine instructions (see [facility] Guidance for At-Home Isolation: Employees). ??? You must follow any additional isolation or quarantine instructions provided to you from federal, state or local public health authorities. ??? You should let your yard supervisor know that you will not be coming to work. Although the Call Center will email your yard supervisor to confirm that you have been instructed not to come to work, it is still your responsibility to notify your yard supervisor as you would for any other work absence. You should receive an email from the call center with these instructions. The email will come from [email or web address]; if you do not receive it, please check to see if your email ms sql server developer has automatically routed it to [facility]. documented in this encounter Plan of Treatment Not on file documented as of this encounter Results * (ABNORMAL) COVID-19 Coronavirus RNA Nasopharyngeal (06/26/2021 10:48 AM CDT) COVID-19 RNA Positive(A ) Negative [place] Comment: Interpretive data: Synonyms for this test include: PCR and NAAT . ??This test is performed using the [employer] Xpert Xpress assay. This is a real-time [...] 4:12 PM CDT Patient is employed by/enrolled at:->[employer] What is the reason for testing?->Symptoms of COVID-19 in high-risk group Date of Symptom Onset->06/26/21 us Christi Henry MD LAB MICROBIOLOGY - GENERAL ORDERABLES Final Result [place] [address] [address] Department [place] [address] documented in this encounter Visit Diagnoses Diagnosis Loss of taste- Primary Disturbances of sensation of smell and taste Loss of taste Disturbances of sensation of smell and taste documented in this encounter Additional Health Concerns Infection Onset Date Last Indicated Resolved Time COVID: Suspected 06/26/2021 06/26/2021 06/26/2021 4:12 PM CDT documented as of this encounter Care Teams Structural Shop Helper Relationship Specialty Start Date End Date Amaya Kowalski NP PCP - General Nurse Practitioner 09/25/20 documented as of this encounter
--- OUTSIDE RECORDS SUMMARY | 2024-11-30 18:19 | XMS_ITS | Encounter Summary ---
Author Organization [facility] Healthcare Address [address] [place] [address] Care Team Providers Care Access Services Librarian Name Role Phone Amaya Kowalski DRUM PULLER Primary Care Provider [phone] [phone] Reason for Visit * Reason Comments PT Initial Eval * Consultation (Routine) - Closed Specialty Diagnoses / Procedures Referred By Contac t Referred To Contact Physical Therapy Diagnoses Low back pain, unspecified back pain laterality, unspecified chronicity, unspecified whether sciatica present Idiopathic scoliosis in adult patient Chronic midline low back [place] [id number] [address] Phone: tel: fax: [address] [phone] Referral ID Status Reason Start Date Expiration Date V isits Requested Visits Authorized [id number] Closed Specialty Services Required 09/25/2020 10/25/2021 12 12 Encounter Details Date Type Department Care Team (Late st Contact Info) Description 10/31/2020 8:15 AM BANQUET SET UP PERSON Therapy [facility] Physical Therapy - [address] [facility] [place] [address] Elza Tsai, PT Low back pain, unspecified [...] on file Legal Sex Female 3:28 AM BANQUET SET UP PERSON Gender Identity Not on file Sexual Orientation Not on file documented as of this encounter Progress Notes * Elza Tsai, PT - 10/31/2020 8:15 AM CST PT Initial Evaluation Irma Seymour 1980 40 [place] [address] [facility] [address] [place] [address] ICD-9-CM ICD-10-CM 1. Low back pain, unspecified [...] weeks Discussed with: patient Elza Tsai PT UET SET UP PERSON documented in this encounter Plan of Treatment [...] 1 documented in this encounter Care Teams Access Services Librarian Relationship Specialty Start Date End Date Amaya Kowalski NP PCP - General Nurse Practitioner 09/25/20 documented as of this encounter
--- OUTSIDE RECORDS SUMMARY | 2024-11-30 18:19 | XMS_ITS | Encounter Summary ---
Author Organization [facility] Address [address] [place] [address] Care Team Providers Care Magazine Grinder Loader Name Role Phone Amaya Kowalski NP Primary Care Provider [phone] [phone] Reason for Visit * Reason Onset Date Comments Covid-19 Home Monitoring 07/10/2021 Non Res ponder Encounter Details Date Type Department Care Team (Late st Contact Info) Description 07/10/2021 Telephone [facility] Accountable Care Organization [address] [place] [address] Hannah Beaver LPN [address] [place] [address] Covid-19 Home Monitoring (Non Responder) Social History Tobacco Use Types Packs/Day Years Used Date Smoking Tobacco: Some Days Smokeless Tobacco: Never Alcohol Use Standard Drinks/Week Comments Yes 0 (1 standard drink = 0.6 oz pur e alcohol) Comments No Sex and Gender Information Value Date Recorded Sex Assigned at Not on file Legal Sex Female 3:28 AM PUBLICITY WRITER Gender Identity Not on file Sexual Orientation [...] as of this encounter Care Teams Magazine Grinder Loader Relationship Specialty Start Date End Date Amaya Kowalski NP PCP - General Nurse Practitioner 09/25/20 documented as of this encounter
--- OUTSIDE RECORDS SUMMARY | 2024-11-30 18:19 | XMS_ITS | Encounter Summary ---
Author Organization [facility] Healthcare Address [address] [place] [address] Care Team Providers Care Sharples Machine Operator Name Role Phone Amaya Kowalski STOCK DEALER Primary Care Provider [phone] [phone] Reason for Visit * Reason Comments PT Treatment Encounter Details Date Type Department Care Team (Late st Contact Info) Description 01/27/2021 1:45 PM INK GRINDER Therapy [facility] Physical Therapy [address] Rehabilitation [facility] [place] [address] Elza Tsai, PT Low back pain, unspecified [...] on file Legal Sex Female 3:28 AM INK GRINDER Gender Identity Not on file Sexual Orientation [...] 1347 End Time: 1427 Elza Tsai PT GRINDER documented in this encounter Plan of Treatment Not on file documented as of this encounter Visit Diagnoses Diagnosis Low back pain, unspecified back pain laterality, unspecified chronicity, unspecified whether sciatica present- Primary documented in this encounter Care Teams Sharples Machine Operator Relationship Specialty Start Date End Date Amaya Kowalski NP PCP - General Nurse Practitioner 09/25/20 documented as of this encounter
--- OUTSIDE RECORDS SUMMARY | 2024-11-30 18:19 | XMS_ITS | Encounter Summary ---
Author Organization [facility] Medical Group Address [address] [place] [address] Care Team Providers Care Terrazzo Worker Apprentice Name Role Phone Amaya Kowalski BISQUE CLEANER Primary Care Provider [phone] [phone] Encounter Details Date Type Department Care Team (Late st Contact Info) Description 06/27/2021 Orders Only [facility] Accountable Care Organization [address] [place] [address] Dhara Murray RN [address] [place] [address] [address] [place] [address] Social History Tobacco Use Types Packs/Day Years Used Date Smoking Tobacco: Some Days Smokeless Tobacco: Never Alcohol Use Standard Drinks/Week Comments Yes 0 (1 standard drink = 0.6 oz pur e alcohol) Comments No Sex and Gender Information Value Date Recorded Sex Assigned at Not on file Legal Sex Female 3:28 AM ASSIGNMENT DESK ASSISTANT Gender Identity Not on file Sexual Orientation Not on file documented as of this encounter Plan of Treatment Not on file documented as of this encounter Visit Diagnoses Not on filedocumented in this encounter Additional Health Concerns Infection Onset Date Last Indicated Resolved Time COVID19 06/26/2021 06/26/2021 07/10/2021 3:05 AM CDT documented as of this encounter Care Teams Terrazzo Worker Apprentice Relationship Specialty Start Date End Date Amaya Kowalski NP PCP - General Nurse Practitioner 09/25/20 documented as of this encounter
--- OUTSIDE RECORDS SUMMARY | 2024-11-30 18:19 | XMS_ITS | Encounter Summary ---
Author Organization [facility] Healthcare Address [address] [place] [address] Care Team Providers Care Invoicing Specialist Name Role Phone Amaya Kowalski PARACHUTIST/COMBATANT DIVER QUALIFIED Primary Care Provider [phone] Reason for Visit * Reason Comments PT Treatment Encounter Details Date Type Department Care Team (Late st Contact Info) Description 01/31/2021 4:45 PM PLATINUMSMITH Therapy [facility] Physical Therapy [address] Rehabilitation [facility] [place] [address] Marquita Vines, HEATER OPERATOR HELPER Low back pain, unspecified back pain laterality, [...] on file Legal Sex Female 3:28 AM PLATINUMSMITH Gender Identity Not on file Sexual Orientation Not on file documented as of this encounter Progress Notes * Marquita Vines, HEATER OPERATOR HELPER - 01/31/2021 4:45 PM CST PT Daily [...] 1645 End Time: 1735 MT Martino PTA INUMSMITH documented in this encounter Plan of Treatment Not on file documented as of this encounter Visit Diagnoses Diagnosis Low back pain, unspecified back pain laterality, unspecified chronicity, unspecified whether sciatica present- Primary documented in this encounter Care Teams Invoicing Specialist Relationship Specialty Start Date End Date Amaya Kowalski NP PCP - General Nurse Practitioner 09/25/20 documented as of this encounter
--- OUTSIDE RECORDS SUMMARY | 2024-11-30 18:19 | XMS_ITS | Encounter Summary ---
Author Organization [facility] Address [address] [place] [address] Care Team Providers Care Neck Cutter Name Role Phone Amaya Kowalski CONSULTING PSYCHIATRIST Primary Care Provider [phone] [phone] Reason for Referral * Diagnostic Imaging (Routine) - Closed Specialty Diagnoses / Procedures Referred By Contac t Referred To Contact Diagnoses Lumbar pain Procedures XR Spine Lumbar 2 or 3 Views Amyaa Kowalski NP [address] [place] [address] Phone: tel: fax: [address] [phone] Referral ID Status Reason Start Date Expiration Date Visits Re quested Visits Authorized [id number] Closed 08/11/2021 09/10/2022 1 1 Reason for Visit * Diagnostic Imaging (Routine) - Closed Specialty Diagnoses / Procedures Referred By Contac t Referred To Contact Diagnoses Lumbar pain Procedures XR Spine Lumbar 2 or 3 Views Amaya Kowalski, MONICA [address] [place] [address] Phone: tel: fax: [address] [phone] Referral ID Status Reason Start Date Expiration Date Visits Re quested Visits Authorized [id number] Closed 08/11/2021 09/10/2022 1 1 Encounter Details Date Type Department Care Team (Latest Contact Info) Description 08/11/2021 2:31 PM CDT - 08/11/2021 11:59 PM CDT Hospital Encounter [facility] [address] [place] [address] Amaya Kowalski, CONSULTING PSYCHIATRIST [address] [place] [address] Lumbar pain Discharge Disposition: Discharge to home or self care Social History Tobacco Use Types Packs/Day Years Used Date Smoking Tobacco: Some Days Smokeless Tobacco: Never Alcohol Use Standard Drinks/Week Comments Yes 0 (1 standard drink = 0.6 oz pur e alcohol) Comments No Sex and Gender Information Value Date Recorded Sex Assigned at Not on file Legal Sex Female 3:28 AM AUTOMOTIVE MACHINIST APPRENTICE Gender Identity Not on file Sexual Orientation [...] PM T: ??08/11/2021 2:52 PM Report ID: [id number] Reading Location: ??[id number] Procedure Note Raissa Raza DO - 08/11/2021 [...] Raissa Raza D.O. PS: PS Report ID: [id number] Reading Location: [id number] Amaya Kowalski NP IMG XR PROCEDURES Final R esult documented in this encounter Visit Diagnoses Diagnosis Lumbar pain Lumbago documented in this encounter Additional Health Concerns Infection Onset Date Last Indicated Resolved Time COVID: Recovered Comment:Added based on recent COVID infection. 07/10/2021 07/10/2021 11/07/2021 3:[address] documented as of this encounter Care Teams Neck Cutter Relationship Specialty Start Date End Date Amaya Kowalski, MONICA PCP - General Nurse Practitioner 09/25/20 documented as of this encounter
--- OUTSIDE RECORDS SUMMARY | 2024-11-30 18:19 | XMS_ITS | Encounter Summary ---
Author Organization [facility] Healthcare Address [address] [place] [address] Care Team Providers Care Mechanical Estimator Name Role Phone Amaya Kowalski LAND LEVELER Primary Care Provider [phone] [phone] Reason for Visit * Reason Comments PT Treatment Encounter Details Date Type Department Care Team (Late st Contact Info) Description 12/23/2020 4:45 PM SYSTEMS LEAD Therapy [facility] Physical Therapy [address] Rehabilitation [facility] [place] [address] Marquita Vines, LIFE CLAIMS EXAMINER Low back pain, unspecified back pain laterality, [...] on file Legal Sex Female 3:28 AM SYSTEMS LEAD Gender Identity Not on file Sexual Orientation Not on file documented as of this encounter Progress Notes * Marquita Vines, LIFE CLAIMS EXAMINER - 12/23/2020 4:45 PM CST PT Daily [...] 1650 End Time: 1730 MT Martino PTA EMS LEAD documented in this encounter Plan of Treatment Not on file documented as of this encounter Visit Diagnoses Diagnosis Low back pain, unspecified back pain laterality, unspecified chronicity, unspecified whether sciatica present- Primary documented in this encounter Care Teams Mechanical Estimator Relationship Specialty Start Date End Date Amaya Kowalski NP PCP - General Nurse Practitioner 09/25/20 documented as of this encounter
--- OUTSIDE RECORDS SUMMARY | 2024-11-30 18:20 | XMS_ITS | Encounter Summary ---
Author Organization [facility] Healthcare Address [address] [place] [address] Care Team Providers Care Barrel Polisher Inside Name Role Phone Unavailable Primary Care Provider [...] on file Legal Sex Female 3:28 AM CO DIRECTOR Gender Identity Not on file Sexual Orientation Not on file documented as of this encounter Plan of Treatment Not on file documented as of this encounter Visit Diagnoses Not on filedocumented in this encounter
--- OUTSIDE RECORDS SUMMARY | 2024-11-30 18:20 | XMS_ITS | Encounter Summary ---
Author Organization [facility] Address [address] [place] [address] Care Team Providers Care Welder 2Nd Shift Name Role Phone Rojelio Freed MD Primary Care Provider Reason for Visit * Reason Comments Anxiety ER follow up Encounter Details Date Type Department Care Team (Late st Contact Info) Description 10/29/2017 11:15 AM CLOUD SOLUTIONS ARCHITECT Office Visit [facility] [address] [place] [address] [address] [place] [address] Palak Baker, SENIOR NATIONAL ACCOUNT MANAGER [address] [address] Anxiety (Primary Dx); BMI 26.0-26.9,adult Social History Tobacco Use Types Packs/Day Years Used Date Smoking Tobacco: Some Days Smokeless Tobacco: Current Comments Unknown Sex and Gender Information Value Date Recorded Sex Assigned at Not on file Legal Sex Female 3:28 AM CLOUD SOLUTIONS ARCHITECT Gender Identity Not on file Sexual Orientation Not on file documented as of this encounter Last Filed Vital Signs Vital Sign Reading Time Taken Comments Blood Pressure 120/80 10/29/2017 11:32 AM CLOUD SOLUTIONS ARCHITECT Pulse 74 10/29/2017 11:32 AM CLOUD SOLUTIONS ARCHITECT Temperature - - Respiratory Rate 16 10/29/2017 11:32 AM CLOUD SOLUTIONS ARCHITECT Oxygen Saturation - - Inhaled Oxygen Concentration - - Weight 63.5 kg (140 lb) 10/29/2017 11:32 AM CLOUD SOLUTIONS ARCHITECT Height 157.5 cm (5' 2.01 ) 10/29/2017 11:[address] Body Mass Index 25.6 10/29/2017 11:32 AM CLOUD SOLUTIONS ARCHITECT documented in this encounter Ordered Prescriptions Prescription Sig Dispense Quantity Refills Last Filled Start Date End Date LORazepam (ATIVAN) 1 mg tablet Take 1 tablet (1 mg total) by mouth 2 (two) times a day as needed for anxiety. 60 tablet 1 10/29/2017 11/26/2017 documented in this encounter Progress Notes * Palak Baker, SENIOR NATIONAL ACCOUNT MANAGER - 10/29/2017 11:15 AM CST Subjective/Objective Patient [...] Rojelio Freed MD at 10/29/2017 4:58 PM CLOUD SOLUTIONS ARCHITECT D SOLUTIONS ARCHITECT D SOLUTIONS ARCHITECT documented in this encounter Miscellaneous Notes * Assessment & Plan Note - Palak Baker NP - 10/29/2017 12:21 PM CLOUD SOLUTIONS ARCHITECT Associated Problem(s): Anxiety Anxiety disorder does not [...] is no improvement we will consult Psychiatry. D SOLUTIONS ARCHITECT documented in this encounter Plan of [...] documented as of this encounter Care Teams Welder 2Nd Shift Relationship Specialty Start Date End Date Rojelio Freed MD PCP - General 02/26/17 09/24/20 documented as of this encounter
--- OUTSIDE RECORDS SUMMARY | 2024-11-30 18:20 | XMS_ITS | Encounter Summary ---
Author Organization [facility] Address [address] [facility] [address] [facility] [address] [place] [address] Care Team Providers Care Professor Of Engineering Name Role Phone Rojelio Freed MD Primary Care Provider Reason for Visit * Reason Comments Knee Pain Encounter Details Date Type Department Care Team (Late st Contact Info) Description 09/01/2017 9:00 AM CDT Office Visit [facility] [address] [place] [address] [address] [place] [address] Palak Baker, BOWLING BALL MOLD ASSEMBLER [address] [place] [address] [address] BMI 26.0-26.9,adult (Primary Dx); Insect bite of left lower extremity, initial encounter Social History Tobacco Use Types Packs/Day Years Used Date Smoking Tobacco: Some Days Comments Unknown Sex and Gender Information Value Date Recorded Sex Assigned at Not on file Legal Sex Female 3:28 AM PACKING MACHINE OPERATOR Gender Identity Not on file [...] this encounter Progress Notes * Palak Baker, BOWLING BALL MOLD ASSEMBLER - 09/01/2017 9:00 AM CDT Subjective/Objective Patient [...] encounter documented in this encounter Care Teams Professor Of Engineering Relationship Specialty Start Date End Date Rojelio Freed MD PCP - General 02/26/17 09/24/20 documented as of this encounter
--- OUTSIDE RECORDS SUMMARY | 2024-11-30 18:20 | XMS_ITS | Encounter Summary ---
Author Organization [facility] Healthcare Address [address] [place] [address] Care Team Providers Care Gymnastic Coach Name Role Phone Rojelio Freed MD Primary Care Provider Encounter Details Date Type Department Care Team (Late st Contact Info) Description 10/28/2017 4:29 PM ONLINE RETAILER - 10/28/2017 5:57 PM ONLINE RETAILER Emergency [facility] Emergency Department 1 [place] [address] Porter Delgado MD [address] [address] Discharge Disposition: Discharge to home or self care Social History Tobacco Use Types Packs/Day Years Used Date Smoking Tobacco: Some Days Comments Unknown Sex and Gender Information Value Date Recorded Sex Assigned at Not on file Legal Sex Female 3:28 AM ONLINE RETAILER Gender Identity Not on file Sexual Orientation [...] on filedocumented in this encounter Care Teams Gymnastic Coach Relationship Specialty Start Date End Date Rojelio Freed MD PCP - General 02/26/17 09/24/20 documented as of this encounter
--- OUTSIDE RECORDS SUMMARY | 2024-11-30 18:20 | XMS_ITS | Encounter Summary ---
Author Organization [facility] Healthcare Address [address] [place] [address] Care Team Providers Care Glass Driller Name Role Phone Unavailable Primary Care Provider [...] on file Legal Sex Female 3:28 AM TOP INSTALLER Gender Identity Not on file Sexual Orientation Not on file documented as of this encounter Plan of Treatment Not on file documented as of this encounter Visit Diagnoses Not on filedocumented in this encounter
--- OUTSIDE RECORDS SUMMARY | 2024-11-30 18:20 | XMS_ITS | Encounter Summary ---
Author Organization [facility] Healthcare Address [address] [place] [address] Care Team Providers Care Human Service Worker Name Role Phone Unavailable Primary Care Provider Unavailabl e Encounter Details Date Type Department Care Team (Late st Contact Info) Description 03/19/2008 5:51 PM CDT - 03/21/2008 5:45 PM CDT Hospital Encounter [facility]CON[facility] Anderson MD [address] [facility] [address] [place] [address] Social History Tobacco Use Types Packs/Day Years Used Date Smoking Tobacco: Never Assessed Comments Unknown Sex and Gender Information Value Date Recorded Sex Assigned at Not on file Legal Sex Female 3:28 AM IT ARCHITECT Gender Identity Not on file Sexual Orientation Not on file documented as of this encounter Plan of Treatment Not on file documented as of this encounter Visit Diagnoses Not on filedocumented in this encounter
--- OUTSIDE RECORDS SUMMARY | 2024-11-30 18:20 | XMS_ITS | Encounter Summary ---
Author Organization [facility] Address [address] [facility] [address] [place] [address] Care Team Providers Care Distribution Warehouse Manager Name Role Phone Rojelio Freed MD Primary Care Provider Encounter Details Date Type Department Care Team (Late st Contact Info) Description 06/13/2018 Orders Only [facility] [address] [place] [address] Scanning, Provider Social History Tobacco Use Types Packs/Day Years Used Date Smoking Tobacco: Some Days Smokeless Tobacco: Never Alcohol Use Standard Drinks/Week Comments Yes 0 (1 standard drink = 0.6 oz pur e alcohol) Comments No Sex and Gender Information Value Date Recorded Sex Assigned at Not on file Legal Sex Female 3:28 AM WILDLIFE ECOLOGY PROFESSOR Gender Identity Not on file Sexual Orientation [...] on filedocumented in this encounter Care Teams Distribution Warehouse Manager Relationship Specialty Start Date End Date Rojelio Freed MD PCP - General 02/26/17 09/24/20 documented as of this encounter
--- OUTSIDE RECORDS SUMMARY | 2024-11-30 18:20 | XMS_ITS | Encounter Summary ---
Author Organization [facility] Address [address] [facility] [address] [place] [address] Care Team Providers Care Rejected Items Clerk Name Role Phone Rojelio Freed MD Primary Care Provider Encounter Details Date Type Department Care Team (Late st Contact Info) Description 06/02/2018 Telephone [facility] [address] [facility] [address] [place] [address] Rojelio Freed MD [address] [place] [address] [address] [place] [address] Social History Tobacco Use Types Packs/Day Years Used Date Smoking Tobacco: Some Days Smokeless Tobacco: Never Alcohol Use Standard Drinks/Week Comments Yes 0 (1 standard drink = 0.6 oz pur e alcohol) Comments No Sex and Gender Information Value Date Recorded Sex Assigned at Not on file Legal Sex Female 3:28 AM REFINERY OPERATOR GAS PLANT Gender Identity Not on file Sexual Orientation Not on file documented as of this encounter Miscellaneous Notes * Telephone Encounter - Michell Byrd - 06/02/2018 10:56 AM CDT FYI - Pt called to say her insurance is still [employer]. She has not been able to get it changed to [employer] yet. Pt thinks it will be November before she has [employer]. documented in this encounter Plan of Treatment Not on file documented as of this encounter Visit Diagnoses Not on filedocumented in this encounter Care Teams Rejected Items Clerk Relationship Specialty Start Date End Date Rojelio Freed MD PCP - General 02/26/17 09/24/20 documented as of this encounter
--- OUTSIDE RECORDS SUMMARY | 2024-11-30 18:20 | XMS_ITS | Encounter Summary ---
Author Organization [facility] Medical Group Address [address] [facility] [address] [place] [address] Care Team Providers Care Labor Economics Professor Name Role Phone Amaya Kowalski NP Primary Care Provider [phone] Encounter Details Date Type Department Care Team (Late st Contact Info) Description 09/25/2020 Orders Only [facility] [address] [address] [place] [address] [id number] Idiopathic scoliosis in adult patient (Primary Dx) Social History Tobacco Use Types Packs/Day Years Used Date Smoking Tobacco: Some Days Smokeless Tobacco: Never Alcohol Use Standard Drinks/Week Comments Yes 0 (1 standard drink = 0.6 oz pur e alcohol) Comments No Sex and Gender Information Value Date Recorded Sex Assigned at Not on file Legal Sex Female 3:28 AM GASKET WINDER Gender Identity Not on file Sexual Orientation Not on file documented as of this encounter Plan of Treatment Not on file documented as of this encounter Visit Diagnoses Diagnosis Idiopathic scoliosis in adult patient- Primary documented in this encounter Care Teams Labor Economics Professor Relationship Specialty Start Date End Date Amaya Kowalski NP PCP - General Nurse Practitioner 09/25/20 documented as of this encounter
--- OUTSIDE RECORDS SUMMARY | 2024-11-30 18:20 | XMS_ITS | Encounter Summary ---
Author Organization [facility] Healthcare Address [address] [place] [address] Care Team Providers Care Dietary Clerk Name Role Phone Rojelio Freed MD Primary Care Provider Encounter Details Date Type Department Care Team (Late st Contact Info) Description 08/02/2015 4:51 PM CDT - 08/02/2015 11:59 PM CDT Hospital Encounter [facility] Rojelio Freed MD [address] [place] [address] [address] Leukocytosis Social History Tobacco Use Types Packs/Day Years Used Date Smoking Tobacco: Some Days Comments Unknown Sex and Gender Information Value Date Recorded Sex Assigned at Not on file Legal Sex Female 3:28 AM SAFETY AND HEALTH MANAGER Gender Identity Not on file Sexual [...] unspecified documented in this encounter Care Teams Dietary Clerk Relationship Specialty Start Date End Date Rojelio Freed MD PCP - General 07/18/15 02/25/17 documented as of this encounter
--- OUTSIDE RECORDS SUMMARY | 2024-11-30 18:20 | XMS_ITS | Encounter Summary ---
Author Organization [facility] Medical Group Address [address] [facility] [address] [place] [address] Care Team Providers Care Telemetry Monitor Name Role Phone Amaya Kowalski NP Primary Care Provider [phone] Reason for Visit * Diagnostic Imaging (Routine) - Closed Specialty Diagnoses / Procedures Referred By Contac t Referred To Contact Diagnoses Low back pain, unspecified back pain laterality, unspecified chronicity, unspecified whether sciatica present Procedures XR Scoliosis Ap Lat Magdy Hagen MD [address] [place] [address] Phone: tel: fax: Referral ID Status Reason Start Date Expiration Date Visits Re quested Visits Authorized [id number] Closed 09/25/2020 10/25/2021 1 1 Encounter Details Date Type Department Care Team (Latest Contact Info) Description 09/25/2020 10:43 AM CDT - 09/25/2020 11:59 PM CDT Hospital Encounter [facility] [address] [place] [phone] Discharge Disposition: Discharge to home or self care Social History Tobacco Use Types Packs/Day Years Used Date Smoking Tobacco: Some Days Smokeless Tobacco: Never Alcohol Use Standard Drinks/Week Comments Yes 0 (1 standard drink = 0.6 oz pur e alcohol) Comments No Sex and Gender Information Value Date Recorded Sex Assigned at Not on file Legal Sex Female 3:28 AM STRATEGIC ADVISOR Gender Identity Not on file Sexual Orientation [...] on filedocumented in this encounter Care Teams Telemetry Monitor Relationship Specialty Start Date End Date Amaya Kowalski NP PCP - General Nurse Practitioner 09/25/20 documented as of this encounter
--- OUTSIDE RECORDS SUMMARY | 2024-11-30 18:20 | XMS_ITS | Encounter Summary ---
Author Organization [facility] Healthcare Address [address] [place] [address] Care Team Providers Care Watch Commander Name Role Phone Unavailable Primary Care Provider Unavailabl e Encounter Details Date Type Department Care Team (Late st Contact Info) Description 12/21/2007 12:01 AM INSIDE TRUCKER - 12/21/2007 11:59 PM INSIDE TRUCKER Hospital Encounter [facility] Social History Tobacco Use Types Packs/Day Years Used Date Smoking Tobacco: Never Assessed Comments Unknown Sex and Gender Information Value Date Recorded Sex Assigned at Not on file Legal Sex Female 3:28 AM INSIDE TRUCKER Gender Identity Not on file Sexual Orientation Not on file documented as of this encounter Plan of Treatment Not on file documented as of this encounter Visit Diagnoses Not on filedocumented in this encounter
--- OUTSIDE RECORDS SUMMARY | 2024-11-30 18:20 | XMS_ITS | Encounter Summary ---
Author Organization [facility] Medical Group Address [address] [facility] [address] [place] [address] Care Team Providers Care High School Drafting Teacher Name Role Phone Rojelio Freed MD Primary Care Provider Reason for Visit * Reason Comments Follow-up Encounter Details Date Type Department Care Team (Late st Contact Info) Description 11/26/2017 9:30 AM INSOLE STIFFENER Office Visit [facility] [address] [facility] [address] [place] [address] Rojelio Freed MD [address] [place] [address] [address] [place] [address] Anxiety (Primary Dx); BMI 25.0-25.9,adult; Preventative health care Social History Tobacco Use Types Packs/Day Years Used Date Smoking Tobacco: Some Days Smokeless Tobacco: Current Tobacco Cessation:Ready to Q uit: No; Counseling Given: Yes Comments Unknown Sex and Gender Information Value Date Recorded Sex Assigned at Not on file Legal Sex Female 3:28 AM INSOLE STIFFENER Gender Identity Not on file Sexual Orientation Not on file documented as of this encounter Last Filed Vital Signs Vital Sign Reading Time Taken Comments Blood Pressure 116/74 11/26/2017 8:54 AM INSOLE STIFFENER Pulse 72 11/26/2017 8:54 AM INSOLE STIFFENER Temperature - - Respiratory Rate 16 11/26/2017 8:54 AM INSOLE STIFFENER Oxygen Saturation - - Inhaled Oxygen Concentration - - Weight 63.5 kg (140 lb) 11/26/2017 8:54 AM INSOLE STIFFENER Height 157.5 cm (5' 2 ) 11/26/2017 8:54 AM INSOLE STIFFENER Body Mass Index 25.61 11/26/2017 8:54 AM INSOLE STIFFENER documented in this encounter Ordered Prescriptions Prescription [...] and urgency. Patient was told by her manager enterprise content management that she had HPV infection on her [...] in agreement with the plan of care. LE STIFFENER documented in this encounter Plan of Treatment [...] 11/26/2017 documented in this encounter Care Teams High School Drafting Teacher Relationship Specialty Start Date End Date Rojelio Freed MD PCP - General 02/26/17 09/24/20 documented as of this encounter
--- OUTSIDE RECORDS SUMMARY | 2024-11-30 18:20 | XMS_ITS | Encounter Summary ---
Author Organization [facility] Healthcare Address [address] [place] [address] Care Team Providers Care Vinyl Dipper Name Role Phone Unavailable Primary Care Provider Unavailabl e Encounter Details Date Type Department Care Team (Late st Contact Info) Description 09/27/2014 9:12 AM CDT - 09/27/2014 11:56 AM CDT Hospital Encounter [facility] Porter Gibson MD [address] [facility] [address] [place] [address] Anxiety state; Dizziness and giddiness Social History Tobacco Use Types Packs/Day Years Used Date Smoking Tobacco: Never Assessed Comments Unknown Sex and Gender Information Value Date Recorded Sex Assigned at Not on file Legal Sex Female 3:28 AM ORTHOPEDIC PODIATRIST Gender Identity Not on file Sexual Orientation [...] ORDERABLES Final Res ult Performing Organization Address [facility] de Phone Number HISTORICAL RESULTS * (ABNORMAL) [...] ORDERABLES Final Res ult Performing Organization Address [facility] de Phone Number HISTORICAL RESULTS * (ABNORMAL) [...] HISTORICAL RESULTS Comment: eGFR:65 ml/min/1.73sq.m if non -Gibraltarian. eGFR: >70 ml/min/1.73sq.m if -Gibraltarian. AVE GFR for 30-39 yr. age group: [...] 09/27/2014 10:2 5 AM CDT us Porter oCllins MD LAB BLOOD ORDERABLES Final Res ult HISTORICAL RESULTS * Discharge Laboratory Cumulative Report (09/27/2014 12:00 AM CDT) 09/27/2014 Narrative HISTORICAL RESULTS - 09/28/2014 12:37 AM CDT Patient No: [id number] ? [facility] Patient Name: IRMA SEYMOUR ?[facility] Healthcare Age: 34 YRS ?: 1980 ?Sex:F ?[address] )[id number] ?? Adm Dt: 09/27/2014 ?[place], [place] ??[address] Created: 09/28/2014 ??0037 ?? Pt. Type: E [...] ?? CONTINUED ?Page: ?? 1 Patient No: [id number] ? [facility] Patient Name: IRMA SEYMOUR ?[facility] Healthcare Age: 34 YRS ?: 1980 ?Sex:F ?[address] )[id number] ?? Adm Dt: 09/27/2014 ?[place], [place] ??[address] Created: 09/28/2014 ??0037 ?? Pt. Type: E [...] ?? CONTINUED ?Page: ?? 2 Patient No: [id number] ? [facility] Patient Name: IRMA SEYMOUR ?[facility] Healthcare Age: 34 YRS ?: 1980 ?Sex:F ?[address] )[id number] ?? Adm Dt: 09/27/2014 ?[place], [place] ??[address] Created: 09/28/2014 ??0037 ?? Pt. Type: E ? Discharge Dt: 09/27/2014 ? Pathologists: Karly Rodriguez MD Admit Attend Dr: PORTER COLLINS MD ? GENERAL CHEMISTRY ?Collection Date: ?09/27/14 ?Collection Time: ?1025 ? Ref Range: ?? Units: [0.60-1.30] ??MG/DL ?CREATININE ?1.02 f ?09/27/14 1025 eGFR:65 ml/min/1.73sq.m if non -Gibraltarian. eGFR: >70 ml/min/1.73sq.m if -Gibraltarian. AVE GFR for 30-39 yr. age group: [...] ORDERABLES Kaylin murrieta Result Performing Organization Address City/State/[facility] Co de Phone Number HISTORICAL RESULTS documented in this encounter Visit Diagnoses Diagnosis Anxiety state Anxiety state, unspecified Dizziness and giddiness documented in this encounter
--- OUTSIDE RECORDS SUMMARY | 2024-11-30 18:20 | XMS_ITS | Encounter Summary ---
Author Organization [facility] Medical Group Address [address] [facility] [address] [place] [address] Care Team Providers Care Handkerchief Folder Name Role Phone Rojelio Freed MD Primary Care Provider Reason for Visit * Reason Comments Rash Encounter Details Date Type Department Care Team (Late st Contact Info) Description 08/04/2017 10:00 AM CDT Office Visit [facility] [address] [facility] [address] [place] [address] Raul Lofton PA [address] [facility] [address] [place] [address] BMI 26.0-26.9,adult (Primary Dx); Pharyngitis due to Streptococcus species; Dermatitis; Tobacco use disorder Social History Tobacco Use Types Packs/Day Years Used Date Smoking Tobacco: Some Days Comments Unknown Sex and Gender Information Value Date Recorded Sex Assigned at Not on file Legal Sex Female 3:28 AM DAIRY PROCESSING SUPERVISOR Gender Identity Not on file Sexual [...] disorder documented in this encounter Care Teams Handkerchief Folder Relationship Specialty Start Date End Date Rojelio Freed MD PCP - General 02/26/17 09/24/20 documented as of this encounter
--- OUTSIDE RECORDS SUMMARY | 2024-11-30 18:20 | XMS_ITS | Encounter Summary ---
Author Organization [facility] Healthcare Address [address] [place] [address] Care Team Providers Care Contracts Intern Name Role Phone Unavailable Primary Care Provider [...] on file Legal Sex Female 3:28 AM LIQUOR DEPARTMENT MANAGER Gender Identity Not on file Sexual Orientation Not on file documented as of this encounter Plan of Treatment Not on file documented as of this encounter Visit Diagnoses Not on filedocumented in this encounter
--- OUTSIDE RECORDS SUMMARY | 2024-11-30 18:20 | XMS_ITS | Encounter Summary ---
Author Organization [facility] Healthcare Address [address] [place] [address] Care Team Providers Care Kettle Skimmer Name Role Phone Unavailable Primary Care Provider Unavailabl e Encounter Details Date Type Department Care Team (Late st Contact Info) Description 02/02/2008 4:28 PM LINE DECORATOR - 02/02/2008 11:59 PM LINE DECORATOR Hospital Encounter [facility] Social History Tobacco Use Types Packs/Day Years Used Date Smoking Tobacco: Never Assessed Comments Unknown Sex and Gender Information Value Date Recorded Sex Assigned at Not on file Legal Sex Female 3:28 AM LINE DECORATOR Gender Identity Not on file Sexual Orientation Not on file documented as of this encounter Plan of Treatment Not on file documented as of this encounter Visit Diagnoses Not on filedocumented in this encounter
--- OUTSIDE RECORDS SUMMARY | 2024-11-30 18:20 | XMS_ITS | Encounter Summary ---
Author Organization [facility] Healthcare Address [address] [place] [address] Care Team Providers Care Wash Test Checker Name Role Phone Unavailable Primary Care Provider Unavailabl e Encounter Details Date Type Department Care Team (Late st Contact Info) Description 11/12/2009 11:16 AM NICKER - 11/12/2009 11:59 PM NICKER Hospital Encounter [facility] Social History Tobacco Use Types Packs/Day Years Used Date Smoking Tobacco: Never Assessed Comments Unknown Sex and Gender Information Value Date Recorded Sex Assigned at Not on file Legal Sex Female 3:28 AM NICKER Gender Identity Not on file Sexual Orientation Not on file documented as of this encounter Plan of Treatment Not on file documented as of this encounter Visit Diagnoses Not on filedocumented in this encounter
--- OUTSIDE RECORDS SUMMARY | 2024-11-30 18:20 | XMS_ITS | Encounter Summary ---
Author Organization [facility] Healthcare Address [address] [place] [address] Care Team Providers Care Electrical Hardware Engineer Name Role Phone Rojelio Freed MD Primary Care Provider Reason for Visit * Reason Comments Hives Nausea Chest Pain Encounter Details Date Type Department Care Team (Late st Contact Info) Description 05/29/2018 4:39 PM CDT - 05/29/2018 5:24 PM CDT Emergency [facility] Emergency Department [address] [place] [address] Porter Delgado MD [address] [address] Idiopathic urticaria (Primary Dx); Anxiety Discharge Disposition: [...] on file Legal Sex Female 3:28 AM TRAINMAN Gender Identity Not on file Sexual Orientation [...] through Care Everywhere. * Urticaria (AfterCare(R) Instructions(ER/ED)) (Niuean) documented in this encounter Medications at Time [...] and affect. Nursing note and vitals reviewed. [facility] Labs Reviewed - No data to display [...] words and actions. Porter Delgado MD 05/29/18 2747 Porter Delgado MD 05/29/18 5508 * Mona Hdz RN - 05/29/2018 4:51 [...] 4:44 PM CDT) Patient age 38 years [facility] Interpretation Text SINUS RHYTHMPOSSIBLE RIGHT VENTRICULAR CONDUCTION DELAYBORDERLINE ECGPREVIOUS TRACIN07/20/2015 20.14 [facility] Comment:Physician Interprete r Dr. Cal Hatfield M.D. Ventricular Rate EKG/Min 78 /min [facility] P Wave Duration 109 ms [facility] QRS-Interval (MSEC) 81 ms [facility] AL-Interval (MSEC) 125 ms [facility] QT Interval 343 ms [facility] QTc 374 ms [facility] QTC Interval ms [facility] P [place] -3 deg [facility] QRS [place] 16 deg [facility] T [place] 16 deg [facility] 05/29/2018 4:44 PM CDT us Porter Delgado MD ECG ORDERABLES Final Result [facility] documented in this encounter Visit Diagnoses Diagnosis Idiopathic urticaria- Primary Anxiety Anxiety state, unspecified documented in this encounter Orders EKG Orders Without Results Count Last Ordered D ate First Ordered Date ECG 12-LEAD 1 05/29/2018 documented in this encounter Care Teams Electrical Hardware Engineer Relationship Specialty Start Date End Date Rojelio Freed MD PCP - General 02/26/17 09/24/20 documented as of this encounter
--- OUTSIDE RECORDS SUMMARY | 2024-11-30 18:20 | XMS_ITS | Encounter Summary ---
Author Organization [facility] Healthcare Address [address] [place] [address] Care Team Providers Care Human Resources Temp Name Role Phone Unavailable Primary Care Provider Unavailabl e Encounter Details Date Type Department Care Team (Late st Contact Info) Description 12/23/2007 9:18 AM ICE CREAM DIPPER - 12/23/2007 11:59 PM ICE CREAM DIPPER Hospital Encounter [facility] Social History Tobacco Use Types Packs/Day Years Used Date Smoking Tobacco: Never Assessed Comments Unknown Sex and Gender Information Value Date Recorded Sex Assigned at Not on file Legal Sex Female 3:28 AM ICE CREAM DIPPER Gender Identity Not on file Sexual Orientation Not on file documented as of this encounter Plan of Treatment Not on file documented as of this encounter Visit Diagnoses Not on filedocumented in this encounter
--- OUTSIDE RECORDS SUMMARY | 2024-11-30 18:20 | XMS_ITS | Encounter Summary ---
Author Organization [facility] Healthcare Address [address] [place] [address] Care Team Providers Care Gaming Dealer Name Role Phone Unavailable Primary Care Provider Unavailabl e Encounter Details Date Type Department Care Team (Late st Contact Info) Description 01/13/2008 9:24 AM EAR NOSE THROAT SURGEON - 01/13/2008 11:59 PM EAR NOSE THROAT SURGEON Hospital Encounter [facility] Carlo Llamas MD [address] [facility] [address] [place] [address] Social History Tobacco Use Types Packs/Day Years Used Date Smoking Tobacco: Never Assessed Comments Unknown Sex and Gender Information Value Date Recorded Sex Assigned at Not on file Legal Sex Female 3:28 AM EAR NOSE THROAT SURGEON Gender Identity Not on file Sexual Orientation Not on file documented as of this encounter Plan of Treatment Not on file documented as of this encounter Visit Diagnoses Not on filedocumented in this encounter
--- OUTSIDE RECORDS SUMMARY | 2024-11-30 18:20 | XMS_ITS | Encounter Summary ---
Author Organization [facility] Address [address] [place] [address] Care Team Providers Care Inflated Pad Buffer Name Role Phone Rojelio Freed MD Primary Care Provider Reason for Visit * Reason Comments forms to be filled out Encounter Details Date Type Department Care Team (Late st Contact Info) Description 05/11/2017 4:00 PM CDT Office Visit [facility] [address] [facility] [address] [place] [address] Rani Ramos NP 2 [facility] [address] [place], [place] [id number] Anxiety (Primary Dx) Social History Tobacco Use Types Packs/Day Years Used Date Smoking Tobacco: Some Days Comments Unknown Sex and Gender Information Value Date Recorded Sex Assigned at Not on file Legal Sex Female 3:28 AM RESPIRATORY SUPERVISOR Gender Identity Not on file Sexual [...] to be completed. These are department of [employer] forms for the [facility]. Patient has history of anxiety. Anxiety [...] documented as of this encounter Care Teams Inflated Pad Buffer Relationship Specialty Start Date End Date Rojelio Freed MD PCP - General 02/26/17 09/24/20 documented as of this encounter
--- OUTSIDE RECORDS SUMMARY | 2024-11-30 18:20 | XMS_ITS | Encounter Summary ---
Author Organization [facility] Address [address] [place] [address] Care Team Providers Care Hot Dimpling Machine Operator Name Role Phone Rojelio Freed MD Primary Care Provider Encounter Details Date Type Department Care Team (Late st Contact Info) Description 07/20/2015 7:36 PM CDT - 07/20/2015 11:02 PM CDT Hospital Encounter [facility] Evonne Mills MD [facility] [place] [address] Pleurisy Social History Tobacco Use Types Packs/Day Years Used Date Smoking Tobacco: Some Days Comments Unknown Sex and Gender Information Value Date Recorded Sex Assigned at Not on file Legal Sex Female 3:28 AM ODD JOBS DAY WORKER Gender Identity Not on file Sexual [...] 07/22/2015 6:[address] Angio Chest ?[id number] ??Acc#: ??[id number] DATE OF EXAM: ??Jul 20 2015 CLINICAL [...] Fax: ??-- Attending Fax: ??-- Attending ID: ??[id number] Requesting ID: ??[id number] Report To 1 ID: ??[id number] Report To 1 Name: ??EVONNE MILLS Report To 1 FAX: ??-- NextGen Order #: Procedure Note Provider, MD Marivel - 03/30/2017 CT Angio Chest [id number] Acc#: [id number] DATE OF EXAM: Jul 20 2015 CLINICAL [...] Fax: -- Attending Fax: -- Attending ID: [id number] Requesting ID: [id number] Report To 1 ID: [id number] Report To 1 Name: ODESSASARINAELADIOJOSEPHAj Report To [...] 6:56 PM CDT XR Chest 2 Views ?[id number] ??Acc#: ??[id number] DATE OF EXAM: ??Jul 20 2015 CLINICAL [...] Fax: ??-- Attending Fax: ??-- Attending ID: ??[id number] Requesting ID: ??[id number] Report To 1 ID: ??[id number] Report To 1 Name: ??LINA GEOVANNIAj Report To 1 FAX: ??-- NextGen Order #: Procedure Note Provider, MD Marivel - 03/30/2017 XR Chest 2 Views [id number] Acc#: [id number] DATE OF EXAM: Jul 20 2015 CLINICAL [...] Fax: -- Attending Fax: -- Attending ID: [id number] Requesting ID: [id number] Report To 1 ID: [id number] Report To 1 Name: EVONNE MILLS Report [...] ORDERABLES Kaylin l Result Performing Organization Address [facility] de Phone Number HISTORICAL RESULTS * Serum magnesium (07/20/2015 8:18 PM CDT) Pathologist [facility] Magnesium 1.6 1.6 - 2.4 mg/dl HISTORICAL RESULTS Serum 07/20/2015 8:18 PM CDT Historical Provider MD LAB BLOOD ORDERABLES Kaylin l Result Performing Organization Address [facility] de Phone Number HISTORICAL RESULTS * (ABNORMAL) [...] specimen (specimen) 07/20/2015 8:18 PM CDT Result [facility] Historical Provider LAB BLOOD ORDERABLES Kaylin murrieta Result Performing Organization Address [facility] de Phone Number HISTORICAL RESULTS * (ABNORMAL) [...] specimen (specimen) 07/20/2015 8:18 PM CDT Result [facility] Historical Provider LAB BLOOD ORDERABLES Kaylin glenny Result Performing Organization Address [facility] de Phone Number HISTORICAL RESULTS * Serum estimated glomerular filtration rate (07/20/2015 8:18 PM CDT) eGFR >60 ml/min/1.7 3 m2 HISTORICAL RESULTS Comment: Interpretation of Estimated GFR (eGFR): Normal ?>/= 60 mL/min/1.73m2 Possible Chronic Kidney Disease ??15 - 59 mL/min/1.73m2 Possible Kidney Failure ?< 15 ??mL/min/1.73m2 If -Salvadorean multiply value by 1.16. ??Estimated glomerular filtration [...] Narrative 07/20/2015 Ordered by an unspecified provider. [facility] Provider LAB BLOOD ORDERABLES Kaylin l Result * ELECTROCARDIOGRAPHY (ECG) (07/20/2015) Narrative 07/20/2015 Ordered by an unspecified provider. Historical Provider ECG ORDERABLES Final Res ult documented in this encounter Visit Diagnoses Diagnosis Pleurisy Pleurisy without mention of effusion or current tuberculosis documented in this encounter Care Teams Hot Dimpling Machine Operator Relationship Specialty Start Date End Date Rojelio Freed MD PCP - General 07/18/15 02/25/17 documented as of this encounter
--- OUTSIDE RECORDS SUMMARY | 2024-11-30 18:20 | XMS_ITS | Encounter Summary ---
Author Organization [facility] Address [address] [place] [address] Care Team Providers Care Sheet Metal Production Worker Name Role Phone Rojelio Freed MD Primary Care Provider Encounter Details Date Type Department Care Team (Late st Contact Info) Description 01/07/2017 6:38 AM PROJECT COORDINATOR - 01/07/2017 11:59 PM PROJECT COORDINATOR Hospital Encounter [facility] Rojelio Freed MD [address] [place] [address] [address] Encounter for general adult medical examination without abnormal findings Social History Tobacco Use Types Packs/Day Years Used Date Smoking Tobacco: Some Days Comments Unknown Sex and Gender Information Value Date Recorded Sex Assigned at Not on file Legal Sex Female 3:28 AM PROJECT COORDINATOR Gender Identity Not on file Sexual [...] LIPID PANEL Routine 01/07/2017 6:3 5 AM PROJECT COORDINATOR SERUM ESTIMATED GLOMERULAR FILTRATION RATE Routine 01/07/2017 6:35 AM PROJECT COORDINATOR PLASMA COMPREHENSIVE METABOLIC PANEL Routine 01/07/2017 6:35 AM PROJECT COORDINATOR documented in this encounter Results * DISCHARGE LABORATORY CUMULATIVE REPORT (01/08/2017) Narrative 01/08/2017 Ordered by an unspecified provider. us Historical Provider LAB BLOOD ORDERABLES Kaylin l Result * (ABNORMAL) Plasma comprehensive metabolic panel (01/07/2017 6:35 AM PROJECT COORDINATOR) Sodium 138 135 - 145 mmol/L CDR [...] CDR HISTORICAL RESULTS Plasma 01/07/2017 6:35 AM PROJECT COORDINATOR us Historical Provider LAB BLOOD ORDERABLES Kaylin murrieta Result CDR HISTORICAL RESULTS * (ABNORMAL) Serum lipid panel (01/07/2017 6:35 AM PROJECT COORDINATOR) Cholesterol 140 40 - 199 mg/dl CDR [...] revised on 2015. Serum 01/07/2017 6:35 AM PROJECT COORDINATOR us Historical Provider LAB BLOOD ORDERABLES Kaylin murrieta Result CDR HISTORICAL RESULTS * Serum estimated glomerular filtration rate (01/07/2017 6:35 AM PROJECT COORDINATOR) eGFR >60 ml/min/1.7 3 m2 CDR HISTORICAL RESULTS Comment: Interpretive Data Reference Interval Normal ?>/= 90 mL/min/1.73m2 Mildly decreased* ? 60 - 89 mL/min/1.73m2 Mildly to moderately decreased ?45 - 59 mL/min/1.73m2 Moderately to severely decreased ??30 - 44 mL/min/1.73m2 Severely decreased ?15 - 29 mL/min/1.73m2 Kidney Failure ?< 15 ??mL/min/1.73m2 *Relative to young adult level If -Liberian multiply value by 1.16. Estimated glomerular filtration [...] last reviewed 2016. Serum 01/07/2017 6:35 AM PROJECT COORDINATOR us Historical Provider LAB BLOOD ORDERABLES Kaylin l Result CDR HISTORICAL RESULTS documented in this encounter Visit Diagnoses Diagnosis Encounter for general adult medical examination without abnormal findings documented in this encounter Care Teams Sheet Metal Production Worker Relationship Specialty Start Date End Date Rojelio Freed MD PCP - General 07/18/15 02/25/17 documented as of this encounter
--- OUTSIDE RECORDS SUMMARY | 2024-11-30 18:20 | XMS_ITS | Encounter Summary ---
Author Organization [facility] Healthcare Address [address] [place] [address] Care Team Providers Care Cobol Engineer Name Role Phone Rojelio Freed MD Primary Care Provider Encounter Details Date Type Department Care Team (Late st Contact Info) Description 02/18/2015 12:04 PM CDT - 02/18/2015 11:59 PM CDT Hospital Encounter [facility] Trell Lewis MD [address] [address] Social History Tobacco Use Types Packs/Day Years Used Date Smoking Tobacco: Some Days Comments Unknown Sex and Gender Information Value Date Recorded Sex Assigned at Not on file Legal Sex Female 3:28 AM SAFETY COUNCIL DIRECTOR Gender Identity Not on file Sexual [...] FROM Positive ON 02/26/15 AT 1040 BY [id number] Results suggest response to immunization or prior exposure to the virus. REFERENCE VALUE Vaccinated: Positive (>=1.0 AI) Unvaccinated: Negative (<=0.7 AI) Rubella ab 2.9 HISTORICA L RESULTS Serum 02/18/2015 10:4 5 AM CDT Historical Provider LAB BLOOD ORDERABLES Kaylin l Result Performing Organization Address City/[facility] Co de Phone Number HISTORICAL RESULTS * Serum Hepatitis B surface ab, quantitative (02/18/2015 5:45 AM CDT) HBV surface ab, quant >1000 mIUnits/ml HISTORICAL RESULTS Serum 02/18/2015 5:45 AM CDT Narrative HISTORICAL RESULTS - 02/20/2015 6:00 AM CDT Patient has immunity to hepatitis B virus. Effective April 09, 2014 this test is being performed using the Design As Chemiluminesence method. Quantitative results from this method should not be used interchangeably with other methods. [facility] performed [facility] [address] [place], [place] ??[address] Director: DENNIS YOUNGDO,MPH Historical Provider LAB BLOOD ORDERABLES Kaylin l Result Performing Organization Address [facility] Co de Phone Number HISTORICAL RESULTS documented in this encounter Visit Diagnoses Not on filedocumented in this encounter Care Teams Cobol Engineer Relationship Specialty Start Date End Date Rojelio Freed MD PCP - General 12/07/14 07/17/15 documented as of this encounter
--- OUTSIDE RECORDS SUMMARY | 2024-11-30 18:20 | XMS_ITS | Encounter Summary ---
Author Organization [facility] Address [address] [place] [address] Care Team Providers Care Unscrambler Name Role Phone Amaya Kowalski NP Primary Care Provider [phone] Reason for Referral * Consultation (Routine) - Closed Specialty Diagnoses / Procedures Referred By Claudio remy Referred To Contact Physical Therapy Diagnoses Low back pain, unspecified back pain laterality, unspecified chronicity, unspecified whether sciatica present Idiopathic scoliosis in adult patient Chronic midline low back [place] [address] [address] [place] [id number] Phone: tel: fax: [address] [address] Referral ID Status Reason Start Date Expiration Date V isits Requested Visits Authorized [id number] Closed Specialty Services Required 09/25/2020 10/25/2021 12 12 Question Answer PTRFR PT Evaluate and Treat Therapy options discussed with patient? Yes Location provided for therapy services is: Patient requested/Patient preferred Please select the performing region: [facility] [144] # of visits: 12 Comments Modalities and home program * Diagnostic Imaging (Routine) - Closed Specialty Diagnoses / Procedures Referred By Contangélica t Referred To Contact Diagnoses Low back pain, unspecified back pain laterality, unspecified chronicity, unspecified whether sciatica present Procedures [place] [address] [address] [facility] [address] [place] [address] Phone: tel: fax: Referral ID Status Reason Start Date Expiration Date Visits Re quested Visits Authorized [id number] Closed 09/25/2020 10/25/2021 1 1 Reason for Visit * Reason Comments Pain Encounter Details Date Type Department Care Team (Late st Contact Info) Description 09/25/2020 10:45 AM CDT Office Visit [facility] [address] [address] [place] [address] [address] Low back pain, unspecified back [...] file Legal Sex Female 3:28 AM WIRE TWISTER Gender Identity Not on file Sexual Orientation [...] bothered by extreme activities she works at [facility] shenBIMAly works in [place] but currently she is working with the [employer]. Pain itself is local as depicted in [...] 07/01/2020 added in this encounter Care Teams Unscrambler Relationship Specialty Start Date End Date Amaya Kowalski NP PCP - General Nurse Practitioner 09/25/20 documented as of this encounter
--- OUTSIDE RECORDS SUMMARY | 2024-11-30 18:20 | XMS_ITS | Encounter Summary ---
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
--- OUTSIDE RECORDS SUMMARY | 2024-11-30 18:20 | XMS_ITS | Encounter Summary ---
Author Organization [facility] Healthcare Address [address] [place] [address] Care Team Providers Care Precision Dancer Name Role Phone Unavailable Primary Care Provider Unavailabl e Encounter Details Date Type Department Care Team (Late st Contact Info) Description 10/11/2007 9:26 AM COMPUTER NUMERICAL CONTROL OPERATOR - 10/11/2007 11:59 PM COMPUTER NUMERICAL CONTROL OPERATOR Hospital Encounter [facility]IN[facility] Bowser Social History Tobacco Use Types Packs/Day Years Used Date Smoking Tobacco: Never Assessed Comments Unknown Sex and Gender Information Value Date Recorded Sex Assigned at Not on file Legal Sex Female 3:28 AM COMPUTER NUMERICAL CONTROL OPERATOR Gender Identity Not on file Sexual Orientation Not on file documented as of this encounter Plan of Treatment Not on file documented as of this encounter Visit Diagnoses Not on filedocumented in this encounter
--- OUTSIDE RECORDS SUMMARY | 2024-11-30 18:20 | XMS_ITS | Encounter Summary ---
Author Organization [facility] Healthcare Address [address] [place] [address] Care Team Providers Care Mechanical Drawing Teacher Name Role Phone Unavailable Primary Care Provider Unavailabl e Encounter Details Date Type Department Care Team (Late st Contact Info) Description 02/25/2012 1:12 PM CDT - 02/25/2012 11:59 PM CDT Hospital Encounter [facility] Rudy Garsia MD [address] [address] [facility] [address] [place] [address] Carmen Macedo NP [address] [place] [address] Screening for malignant neoplasm of cervix Social History Tobacco Use Types Packs/Day Years Used Date Smoking Tobacco: Never Assessed Comments Unknown Sex and Gender Information Value Date Recorded Sex Assigned at Not on file Legal Sex Female 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
== END 2024-11-23 09:08 | disposition home or self-care (01) ==
PROVIDERS: Emergency Provider Nurse Practitioner Family
DX: J06.9 Acute upper respiratory infection, unspecified (principal); H10.33 Unspecified acute conjunctivitis, bilateral
CPT/HCPCS: 87804; 99213; G0463

== ENCOUNTER 2025-04-27 15:32 | Emergency (ER) | payer OTHER, SELFPAY ==
--- OUTSIDE RECORDS SUMMARY | 2025-04-27 15:34 | XMS_ITS | Encounter Summary ---
Author Organization [facility] Address [address] [place] [address] Phone Care Team Providers Care Riding Coach Name Role Phone Amaya Kowalski APRN, LEAD MATERIAL HANDLER Primary Care Provider Sravani Ramsay MD Primary Care Provider [phone] Arnold Roberts MD Unavailable Shravan Burgos Primary Care Provider + [phone] Reason for Visit * Reason Comments Medication Refill Encounter Details Date Type Department Care Team ([facility] Contact Info) Description 10/24/2020 Refill [facility] - Primary Care - [place] [address] [place] [address] Amaya Kowalski APRN, LEAD MATERIAL HANDLER [address] [place] [address] Medication Refill Social History Tobacco [...] Coronavirus / COVID-19? Yes 10/15/2020 10:41 AM CRA OFFICER documented as of this encounter Miscellaneous Notes * Telephone Encounter - Latia Garcia CMA - 10/25/2020 7:57 AM CST This medication was already order. Please refused. OFFICER documented in this encounter Plan of Treatment Not on file documented as of this encounter Goals Goal [...] - 19 11/26/2022 11/26/2022 11/26/2022 4:47 PM CRA OFFICER COVID - 19 11/26/2022 11/26/2022 12/06/2022 12:1 9 AM CRA OFFICER Assessment Noted Time PHQ-9 Depression Total Score: 13 020 2:00 PM CDT documented as of this encounter Care Teams Riding Coach Relationship Specialty Start Date End Date Amaya Kowalski, CROP OR GRAIN FARMER, LEAD MATERIAL HANDLER [address] [place] [address] PCP - General Advanced Practice Nurse 06/10/18 04/22/23 Sravani Ramsay MD [address] [place] [address] PCP - General Family Medicine 04/23/23 12/30/23 Shravan Burgos PAC [address] [place] [address] PCP - General Physician Marketing Production Coordinator 12/31/23 Arnold Roberts MD [address] [place] [address] Consulting Physician Pulmonary Disease 07/26/23 documented as of this encounter
--- OUTSIDE RECORDS SUMMARY | 2025-04-27 15:34 | XMS_ITS | Encounter Summary ---
Author Organization [facility] Address [address] [place] [address] Phone Care Team Providers Care Typing Office Worker Name Role Phone Amaya Kowalski APRN, CNP Primary Care Provider Sravani Ramsay MD Primary Care Provider [phone] Arnold Roberts MD Unavailable Shravan Burgos Primary Care Provider + [phone] Reason for Visit * Reason Onset Date Comments Cough 11/26/2022 Encounter Details Date Type Department Care Team ([facility] Contact Info) Description 11/26/2022 Nurse Triage [facility] - Primary Care - [place] [address] [place] [address] Amaya Kowalski APRN, PHLEBOTOMY SUPPORT TECH [address] [place] [address] Cough Social History Tobacco Use [...] Coronavirus/COVID-19? No / Unsure 11/26/2022 4:19 PM PROMOTIONS ASSISTANT SALES MARKETING documented as of this encounter Miscellaneous Notes * Telephone Encounter - Mohini Aguirre RN - 11/26/2022 11:57 AM PROMOTIONS ASSISTANT SALES MARKETING SITUATION: Cough which is keeping her up [...] travel history, exposures) no Protocols used: COUGH-A-OH OTIONS ASSISTANT SALES MARKETING * Telephone Encounter - Mohini Aguirre RN - 11/26/2022 11:55 AM CSTFrom: Irma Seymour To: Ivelisse Kowalski Sent: 11/26/2022 11:18 AM PROMOTIONS ASSISTANT SALES MARKETING Subject: Cough Hello. So I have been [...] let me know. I work till 3pm. OTIONS ASSISTANT SALES MARKETING documented in this encounter Plan of Treatment Not on file documented as of this encounter Goals Goal Patient Goal Type Associated Problems Recent Progress Patient-Stated? Author Behavioral [facility] Behavioral Health On track(2019 9:50 AM CDT) Yes Eloise Jenkins LCPC Note: Irma reported her goal for psychotherapy is to help me be able to deal with things in the present and in her past that are contributing to low and anxious mood. Goal Reviewed with: patient Readiness to change: Thinking about making a change Department associated with goal: [facility] BE[facility]AVIORAL HEALTH SERVICES Steps [...] and past) that trigger mood concerns. Behavioral [facility] Behavioral Health On track(2019 9:50 AM CDT) No Eloise Jenkins LCPC Note: Irma will engage in a plan of action to improve emotional and mental wellbeing. Goal Reviewed with: patient Readiness to change: Not yet ready to make a change Department associated with goal: [facility] BE[facility]AVIORAL HEALTH SERVICES Steps [...] Last Indicated Resolved Time COVID - 19 11/26/202211/26/2022 11/26/2022 4:47 PM PROMOTIONS ASSISTANT SALES MARKETING COVID - 19 11/26/2022 11/26/2022 12/06/2022 12:1 9 AM PROMOTIONS ASSISTANT SALES MARKETING Assessment Noted Time PHQ-9 Depression Total Score: 13 020 2:00 PM CDT documented as of this encounter Care Teams Typing Office Worker Relationship Specialty Start Date End Date Amaya Kowalski, BINDERY MANAGER, PHLEBOTOMY SUPPORT TECH [address] [place] [address] PCP - General Advanced Practice Nurse 06/10/18 04/22/23 Sravani Ramsay MD [address] [place] [address] PCP - General Family Medicine 04/23/23 12/30/23 Shravan Burgos, PAC [address] [place] [address] PCP - General Physician Senior Graduate Advisor 12/31/23 Arnold Roberts MD [address] [place] [address] Consulting Physician Pulmonary Disease 07/26/23 documented as of this encounter
--- OUTSIDE RECORDS SUMMARY | 2025-04-27 15:34 | XMS_ITS | Clinical Summary ---
Author Organization [facility] Address [address] [place] [address] Care Team Providers Care Ham Marker Name Role Phone Unavailable Primary Care Provider Unavailabl e Source Comments [facility],non-owned Affiliates and Associated Physician Practices is amultiple site organization consisting of ambulatory clinics and hospital sitesin [place], [place], [place] and [place]. This disclosure is being madepursuant to the Care Everywhere program and may not contain all information available regarding this patient. Last updated 18.[facility] [employer] Social History Tobacco Use Types Packs/Day Years Used Date Smoking Tobacco: Never Assessed Comments Unknown Sex and Gender Information Value Date Recorded Sex Assigned at Not on file Legal Sex Female 6:24 AM DISTRICT ASSOCIATE JUDGE Gender Identity Not on file Sexual Orientation [...] of 3 - 19+ 3-dose series) 1997 COVID-19 VACCINE ( - 2023-2 5 season) 2024 DEPRESSION SCREENING 11/29/2024 INFLUENZA VACCINE (Season Ended) 2025 08/17/2019, 09/26/2018, 09/25/2018 ZOSTER VACCINE (1 of 2) 2028 HIB VACCINE Aged Out No longer eligi ble based on patient's age to complete this topic HPV VACCINE Aged Out No longer eligi ble based on patient's age to complete this topic MENINGOCOCCAL (Group B) VACCINE SHARED DECISION-MAKING Aged Out No longer eligible based on patient's age to complete this topic MENINGOCOCCAL GROUPS A/C/Y/W VACCINE Aged Out No longer eligible b ased on patient's age to complete this topic PNEUMOCOCCAL VACCINE Aged Out No long er eligible based on patient's age to complete this topic Insurance [facility] MEDICAID OUT [facility] CARE [facility] C[facility] SELF PAY NO INSURANCE Member Subscriber Plan / Payer (Ef fective for All Dates) Name:Irma Seymour Member ID:Not on file Relation to Subscriber:Not on file Name:IRMA SEYMOUR Subscriber ID:Not on file Address: [address] [place] [id number] Payer ID:Not on file Group ID:Not on file Type:Self Pay Address: [place], [place] [facility] CARE SELF PAY NO INSURANCE Member Subscriber Plan / Payer (Ef fective for All Dates) Name:Irma Seymour Member ID:Not on file Relation to Subscriber:Not on file Name:IRMA SEYMOUR Subscriber ID:Not on file Address: [address] [place] [id number] Payer ID:Not on file Group ID:Not on file Type:Self Pay Address: [place], [place] [facility] SELF PAY NO INSURANCE Member Subscriber Plan / Payer (Ef fective for All Dates) Name:Irma Seymour Member ID:Not on file Relation to Subscriber:Not on file Name:IRMA SEYMOUR Subscriber ID:Not on file Address: [address] [place] [id number] Payer ID:Not on file Group ID:Not on file Type:Self Pay Address: [place], [place]
--- OUTSIDE RECORDS SUMMARY | 2025-04-27 15:34 | XMS_ITS | Clinical Summary ---
Author Organization [facility] Address [address] [place] [address] Phone Care Team Providers Care Technical Support Agent Name Role Phone Arnold Roberts MD Unavailable Shravan Burgos PAC Primary Care Provider [phone] Allergies Active Allergy Reactions Criticality Noted Date [...] Active fluticasone (FLONASE) 50 MCG/ACT Suspension 1 [place] by Nasal route daily. Use in each nostril as directed. 16 g 1 10/03/20 24 Active azelastine (ASTELIN) 0.1 % SolutionIndicat ions:Other chronic sinusitis 2 Sprays by Nasal route 2 times daily. Use in each nostril as directed 30 mL 1 12/13/19 25 Active LORazepam (ATIVAN) 0.5 MG TabletIndicatio ns:Anxiety TAKE 1 TABLET BY MOUTH TWICE A DAY NEEDED FOR ANXIETY 60 Tablet 04/02/20 25 Active LORazepam (ATIVAN) 0.5 MG TabletIndicatio ns:Anxiety TAKE 1 TABLET BY MOUTH TWICE A DAY NEEDED FOR ANXIETY 60 Tablet 02/22/20 25 2024 Discontinued Active Problems Problem Noted Date Diagnosed Date Moderate persistent asthma without complication 07/26/2023 Leukocytosis 12/24/2019 Chronic bronchitis 03/09/2019 Tobacco use disorder 03/09/2019 Other chronic [...] is no improvement we will consult Psychiatry. Resolved Problems Problem Noted Date Diagnosed Date Resolved Date Facial asymmetry 12/05/2020 12/13/2024 Apical abscess 12/05/2020 12/13/2024 Lung infiltrate 03/09/2019 12/13/2024 Encounters Date Type Department Care Team Description 04/01/2025 [facility] [address] [place] [address] Shravan Burgos, PAC Medication Refill 02/21/2025 [facility] [address] [place] [address] Shravan Burgos, PAC Medication Refill from Last 3 Months Immunizations [...] = 0.6 oz pur e alcohol) socially [employer] Utilities Answer Date Recorded In the past 12 months has e electric, gas, oil, or water company threatened to shut off services in your home? No 12/13/2024 Social Connection and Isolat ion Panel [NHANES] Answer Date Recorded In a typical week, how many times do you talk on the phone with family, friends, or neighbors? More than three times a week 12/13/2024 How often do you get togethe r with friends or relatives? More than three times a week 12/13/2024 How often do you attend chur ch or temple services? Never 12/13/2024 Do you belong to any clubs o r organizations such as moravian groups, unions, fraternal or athletic groups, or school groups? No 12/13/2024 How often do you attend meet ings of the clubs or organizations you belong to? Patient declined 12/13/2024 Are you , , di vorced, , never , or living with a partner? Never 12/13/2024 AUDIT-C Answer Date Recorded Q1: How often do you have a drink containing alc ohol? 2-3 times a week 12/13/2024 Q2: How many drinks containi ng alcohol do you have on a typical day when you are drinking? 7 to 9 12/13/2024 Q3: How often do you have si x or more drinks on one occasion? Weekly 12/13/2024 Overall Financial Resource Strain (CARDIA) Answe r Date Recorded How hard is it for you to pa y for the very basics like food, housing, medical care, and heating? Not hard at all 12/13/2024 PHQ-2 Answer Date Recorded Total Score - Questions 1-9 0 11/29 [facility] - Occupational Stress Questionnaire Answer Date Recorded Do you feel stress - tense, restless, nervous, or anxious, or unable to sleep at night because your mind is troubled all the time - these days? Only a little 12/13/2024 Exercise Vital Sign Answer Date Recorde d On average, how many days pe r week do you engage in moderate to strenuous exercise (like a brisk walk)? 5 days On average, how many minutes do you engage in exercise at this level? Patient declined 12/13/2024 Hunger Vital Sign Answer Date Recorded Within the past 12 months, y ou worried that your food would run out before you got the money to buy more. Never true 12/13/19 25 Within the past 12 months, t he food you bought just didn't last and you didn't have money to get more. Never true 12/13/2024 PRAPARE - Transportation Answer Date Re corded In the past 12 months, has l ack of transportation kept you from medical appointments or from getting medications? No 11/29 In the past 12 months, has l ack of transportation kept you from meetings, work, or from getting things needed for daily living? No 12/13/2024 Housing Stability Vital Sign Answer Bladimir e [...] in a mcc (including now)? No 12/31/2023 Housing Stability Vital Sign Answer Bladimir e Recorded In the last 12 months, was t here a time when you were not able to pay the mortgage or rent on time? No 12/13/2024 Number of Times Moved in the Last Year Not on fi le 12/13/2024 At any time in the past 12 m [facility], were you homeless or living in a mcc (including now)? No 12/13/2024 Education Answer Date Recorded What is the [...] Sign Reading Time Taken Comments Blood Pressure 126/72 12/13/2024 3:21 PM ENGINE TESTER Pulse 74 12/13/2024 3:21 PM ENGINE TESTER Temperature 37.2 C (98.9 F) 12/13/2024 3:21 PM ENGINE TESTER Respiratory Rate 18 12/13/2024 3:21 PM ENGINE TESTER Oxygen Saturation 99% 12/13/2024 3:21 PM ENGINE TESTER Inhaled Oxygen Concentration - - Weight 68 kg (150 lb) 12/13/2024 3:21 PM ENGINE TESTER Height 157.5 cm (5' 2) 10/03/2024 3:45 PM ENGINE TESTER Body Mass Index 27.44 10/03/2024 3:45 PM ENGINE TESTER Plan of Treatment Health Maintenance Due Date Last Done Comments TdaP Immunization 1978 Pneumococcal Immunization Combined (1 of 2 - PCV) 1997 HPV/Cotest 2008 SARS-COV-2 Immunization (3 - season) 2024 11/07/2021, 10/17/2021 Cervical Cancer Screening (CCS) 09/11/2025 Mammogram 09/11/2025 09/11/2024, 07/30, 09/13/2020, Additional history exists Pap Smear 09/11/2025 09/11/2022 Colonoscopy 03/15/2034 03/15/2024, 03/15/2024 Colorectal Cancer Screening 03/15/2034 Respiratory Syncytial Virus (RSV) Immunization (Adult) (1 - 1-dose 75+ series) 2053 03/15/2024 Hepatitis B Immunization Discontinued 08/27/2014, 06/30 Hepatitis C Virus (HCV) Screening Completed 07/14/2023 Influenza Immunization Completed , 08/25/2023, 09/11/2022, Additional history exists Discussion re Starting/Frequency of Mammograms Completed 09/11/2024, 08/14/2022, 11/04/2020, Additional history exists Human Papillomavirus (HPV) Immunization Aged Out No longer eligible based on patient's age to complete this topic Meningococcal Immunization (ACWY) Aged Out No longer eligible based on patient's age to complete this topic Rotavirus Immunization Aged Out No lo nger eligible based on patient's age to complete this topic Goals Goal Patient Goal Type Associated Problems Recent Progress Patient-Stated? Author Behavioral Health Behavioral Health On track(2019 9:50 AM CDT) Yes Eloise Jenkins, [facility] Note: Irma reported her goal for [...] 4:29 PM CDT Visit for screening mammogram HM COLONOSCOPY 03/15/2024 12:00 AM CDT HEPATITIS C ANTIBODY Routine 07/14/2023 4:05 PM CDT Encounter for preventative adult health care examination from Last 3 Months or Most Recently Relevant to Health Maintenance Results * NU SCREENING BILATERAL DIGITAL W [...] exams dated: 08/14/2022, 11/04/2020, 09/13/2020, and 03/14/2019 [facility]. BREAST TISSUE:The breasts are heterogeneously [...] exam. Electronically signed by: Mounika vidales/jenna:09/11/2024 19:49:19 Foreign Service Officer(s): RT Raegan(R)(M), [facility] letter sent: Normal Exam Reading [...] exams dated: 08/14/2022, 11/04/2020, 09/13/2020, and 03/14/2019 [facility]. BREAST TISSUE:The breasts are heterogeneously [...] exam. Electronically signed by: Mounika vidales/jenna:09/11/2024 19:49:19 Foreign Service Officer(s): RT Raegan(R)(M), [facility] letter sent: Normal Exam Reading location: [place] Mammogram BI-RADS: Category 1: Negative us Veronika Orantes APRN, MATERIAL FLOW ANALYST IMG MAMMO ORDERABLES Kaylin l Result * HM COLONOSCOPY (03/15/2024 12:00 AM CDT) 03/15/2024 us Provider Scan PROCEDURE/MINOR SURGICAL ORDERAB LES Final Result Performing Organization Address City/[facility]/ZIP Co de Phone Number SCAN * HEPATITIS C ANTIBODY (07/14/2023 4:05 PM CDT) hepatitis C antibody 0.10 <1 S/CO [facility] ARCH [id number] B 07/15/2023 3:00 PM CDT [facility] Comment: Signal/Cutoff ratio < 0.79 is Nondetected Signal/Cutoff ratio 0.80-0.99 is Grayzone Signal/Cutoff ratio > 0.99 is Detected Supplemental assays are recommended if signal/cutoff ratio is >/=1.00. Signal/cutoff ratio result >/= 5.00 is 97% predictive of positivity for recombinant immunoblot assay (RIBA) and will be reported to the [place] Department of Public Health as required. Blood Venipuncture / Unknown 07/14/2023 4:05 PM CDT 07/14/2023 4:33 PM CDT us Sravani Ramsay MD CHEMISTRY ORDERABLES Final R esult Performing Organization Address City/[facility]/ZIP Co de Phone Number [facility] [address] [place] [address], from Last 3 Months or Most Recently Relevant to Health Maintenance Insurance [facility] [place] [address] Advance Directives * Full Code (Latest Code Status on File) Date Activated Date Inactivated Comments 12/05/2020 4:55 AM 12/06/2020 12:59 AM CPR-Full Mya tment: FULL ARREST: Attempt Resuscitation/CPR wit intubation and mechanical ventilation. PRE-ARREST: Use entire range of life support measures to stabilize the patient. Care Teams Technical Support Agent Relationship Specialty Start Date End Date Shravan Burgos, PAC [address] [place] [id number] PCP - General Physician Systems Analyst 12/31/23 Arnold Roberts MD [address] [place] [id number] Consulting Physician Pulmonary Disease 07/26/23
--- OUTSIDE RECORDS SUMMARY | 2025-04-27 15:34 | XMS_ITS | Encounter Summary ---
Author Organization [facility] Address [address] [place] [place] [address] Phone Care Team Providers Care Truck Bench Mechanic Name Role Phone Sravani Ramsay MD Primary Care Provider [phone] Arnold Roberts MD Unavailable Shravan Burgos Primary Care Provider + [phone] Reason for Visit * Reason Comments Medication Refill Encounter Details Date Type Department Care Team (Late st Contact Info) Description 05/10/2023 Refill [facility] - Primary Care - [place] [address] [place] [address] Amaya Kowalski, ERECTING ENGINEER, COMMODITY BROKER [address] [place] [address] Medication Refill Social History Tobacco [...] documented as of this encounter Care Teams Truck Bench Mechanic Relationship Specialty Start Date End Date Sravani Ramsay MD [address] [place] [address] PCP - General Family Medicine 04/23/23 12/30/23 Shravan Burgos, PAC [address] [place] [address] PCP - General Physician Manager Branch 12/31/23 Arnold Roberts MD [address] [place] [address] Consulting Physician Pulmonary Disease 07/26/23 documented as of this encounter
--- OUTSIDE RECORDS SUMMARY | 2025-04-27 15:34 | XMS_ITS | Referral Summary ---
Author Organization [facility] Address [address] [place] [address] Care Team Providers Care Fish Hatchery Supervisor Name Role Phone Amaya Kowalski NP Primary Care Provider [phone] Allergies Active Allergy Reactions Criticality Noted Date [...] 05/11/2017 Assessment & Plan (10/29/2017 12:22 PM PRODUCT SAFETY HEAD): Anxiety disorder does not seem to be [...] routine basis certainly sooner if indicated. Immunizations Immunization Administration Dates Next Due Hep B Vaccine [...] on file Legal Sex Female 3:28 AM PRODUCT SAFETY HEAD Gender Identity Not on file Sexual Orientation Not on file Last Filed Vital Signs Vital Sign Reading Time Taken Comments Blood Pressure 122/86 09/25/2020 10:30 AM CDT Pulse 79 05/29/2018 4:56 PM CDT Temperature 36.3 C (97.3 F) 09/25/2020 10:30 AM CDT Respiratory Rate 20 05/29/2018 4:56 PM CDT Oxygen Saturation 100% 05/29/2018 5:00 PM CDT Inhaled Oxygen Concentration - - Weight 62.6 kg (138 lb) 09/25/2020 10:30 AM CDT Height 160 cm (5' 3) 09/25/2020 10:30 AM CDT Body Mass Index 24.45 09/25/2020 10:30 AM CDT Plan of Treatment Not on file Insurance [facility] H[facility]/PPO Address: [address] [address] [place] [address] [facility]/PPO Address: [address] [address] [place] [address] Care Teams Fish Hatchery Supervisor Relationship Specialty Start Date End Date Amaya Kowalski NP PCP - General Nurse Practitioner 09/25/20
--- OUTSIDE RECORDS SUMMARY | 2025-04-27 15:34 | XMS_ITS | Encounter Summary ---
Author Organization [facility] Address [address] [place] [address] Phone Care Team Providers Care Senior Integration Developer Name Role Phone Amaya Kowalski APRN, TRANSPORT AIRCREWMAN Primary Care Provider Sravani Ramsay MD Primary Care Provider + [phone] Arnold Roberts MD Unavailable Shravan Burgos Primary Care Provider + [phone] Reason for Visit * Reason Comments Medication Refill Encounter Details Date Type Department Care Team ([facility] Contact Info) Description 11/27/2020 Refill [facility] - Primary Care - [place] [address] [place] [address] Fox Jesus, PAPI Medication Refill [...] COVID-19? No / Unsure 11/04/2020 1:11 PM HANDYPERSON documented as of this encounter Miscellaneous Notes [...] ago Injury of left foot, initial encounter [facility] Amaya Kowalski APN, TRANSPORT AIRCREWMAN 7 months ago Moderate episode of recurrent major depressive disorder (HCC) [facility] - Amaya Yoder APN, TRANSPORT AIRCREWMAN 1 year ago Anxiety [facility] - Amaya Yoder APN, TRANSPORT AIRCREWMAN 1 year ago Chronic bronchitis with productive mucopurulent cough (HCC) [facility] - Fox Conde PAC 1 year ago Chronic bronchitis, unspecified chronic bronchitis type (HCC) [facility] - Amaya Yoder APN, TRANSPORT AIRCREWMAN Upcoming Appointments DEPARTMENT EDITOR - Recent and Past Visits Recent Visits Date Type Provider Dept 07/26/20 Office Visit Amaya Kowalski APN, [facility] 04/05/20 Office Visit Amaya Kowalski APN, TRANSPORT AIRCREWMAN [facility] [place] Showing recent visits within past 460 days with a meds authorizing provider and meeting all other requirements Future Appointments No visits were found meeting these conditions. Showing future appointments within next 90 days with a meds authorizing provider and meeting all other requirements YPERSON documented in this encounter Plan of Treatment Not on file documented as of this encounter Goals Goal Patient Goal Type Associated Problems Recent Progress Patient-Stated? Author Behavioral [facility] Behavioral Health On track(2019 [...] and past) that trigger mood concerns. Behavioral [facility] Behavioral Health On track(2019 [...] - 19 11/26/2022 11/26/2022 11/26/2022 4:47 PM HANDYPERSON COVID - 19 11/26/2022 11/26/2022 12/06/2022 12:1 9 AM HANDYPERSON Assessment Noted Time PHQ-9 Depression Total Score: 13 020 2:00 PM CDT documented as of this encounter Care Teams Senior Integration Developer Relationship Specialty Start Date End Date Amaya Kowalski, CORE WORKER, TRANSPORT AIRCREWMAN [address] [place] [address] PCP - General Advanced Practice Nurse 06/10/18 04/22/23 Sravani Ramsay MD [address] [place] [address] PCP - General Family Medicine 04/23/23 12/30/23 Shravan Burgos, PAC [address] [place] [address] PCP - General Physician Cold Rolling Coordinator 12/31/23 Arnold Roberts MD [address] [place] [address] Consulting Physician Pulmonary Disease 07/26/23 documented as of this encounter
--- OUTSIDE RECORDS SUMMARY | 2025-04-27 15:34 | XMS_ITS | Clinical Summary ---
Author Organization [facility] Medical Office Building A Address [address] [place] [address] Care Team Providers Care Shipping Lead Person Name Role Phone Amaya Kowalski NP Primary Care Provider [phone] Allergies Active Allergy Reactions Criticality Noted Date [...] 05/11/2017 Assessment & Plan (10/29/2017 12:22 PM BULLET ASSEMBLY PRESS OPERATOR): Anxiety disorder does not seem to [...] on file Legal Sex Female 3:28 AM BULLET ASSEMBLY PRESS OPERATOR Gender Identity Not on file [...] Plan of Treatment Not on file Insurance [facility] HMO/PPO Address: [facility] [address] [place] [address] [place] [address] [facility] HMO/PPO Address: [facility] [address] [place] [address] Care Teams Shipping Lead Person Relationship Specialty Start Date End Date Amaya Kowalski NP PCP - General Nurse Practitioner 09/25/20
--- OUTSIDE RECORDS SUMMARY | 2025-04-27 15:34 | XMS_ITS | Encounter Summary ---
Author Organization [facility] Address [address] [place] [address] Phone Care Team Providers Care Coverstitch Machine Operator Name Role Phone Arnold Roberts MD Unavailable Shravan Burgos PAC Primary Care Provider [phone] Reason for Visit * Reason Onset Date Comments Ear Pain 10/13/2024 Encounter Details Date Type Department Care Team (Late st Contact Info) Description 10/13/2024 Nurse Triage [facility] [address] [place] [address] Shravan Burgos, PAC [address] [place] [address] Ear Pain Social History Tobacco Use Types Packs/Day Years Used Date Smoking Tobacco: Some Days Cigarettes Smokeless Tobacco: Never Comments:Pt has multiple day s in a row she abstains. Alcohol Use Standard Drinks/Week Comments Yes 5 (1 standard drink = 0.6 oz pur e alcohol) socially [facility] Utilities Answer Date Recorded In the past 12 months has [employer] electric, gas, oil, or water company threatened [...] declined 12/31/2023 How often do you attend adventism or taoist serv ices? Patient declined 12/31/2023 Do you belong to any clubs o r organizations such as adventism groups, unions, fraternal or athletic groups, or [...] Total Score - Questions 1-9 0 12/2023 [facility] - Occupational Stress Questionnaire Answer [...] in office or promptcare to be re-evaluated. NT CLERK * Telephone Encounter - Aliza Atwood RN [...] Foreign body stuck in the ear canal Kerrick or red swelling behind the ear Stiff [...] blurred vision or vision changes Protocols used: [id number] NT CLERK * Telephone Encounter - Carmen Robbins CMA - 10/13/2024 3:48 PM CST Symptom: Earache Outcome: Schedule an appointment within 3 days Reason: Caller denied all higher acuity questions The caller rejected this outcome. Caller Denied: * Severe pain now * Suspects Swimmer's ear NT CLERK documented in this encounter Plan of [...] and past) that trigger mood concerns. Behavioral [facility] Behavioral Health On track(2019 9:50 [...] Total Score: 0 12/31/19 24 2:09 PM PATENT CLERK documented as of this encounter Care Teams Coverstitch Machine Operator Relationship Specialty Start Date End Date Shravan Burgos, PAC [address] [place] [address] PCP - General Physician Ergonomics Technician 12/31/23 Arnold Roberts MD [address] [place] [address] Consulting Physician Pulmonary Disease 07/26/23 documented as of this encounter
--- OUTSIDE RECORDS SUMMARY | 2025-04-27 15:34 | XMS_ITS | Encounter Summary ---
Author Organization [facility] Address [address] [place] [address] Phone Care Team Providers Care Pharmacy Technician Name Role Phone Amaya Kowalski APRN, DOUGLAS Primary Care Provider Sravani Ramsay MD Primary Care Provider [phone] Arnold Roberts MD Unavailable Shravan Burgos Primary Care Provider + [phone] Reason for Visit * Reason Comments Medication Refill Encounter Details Date Type Department Care Team (Late st Contact Info) Description 08/22/2020 Refill [facility] [place] [address] [place] [address] Amaya Kowalski APRN, PUBLICITY WRITER [address] [place] [address] Medication Refill Social History Tobacco [...] episode of recurrent major depressive disorder (HCC) [facility] - Amaya Yoder APN, DOUGLAS 1 year ago Anxiety [facility] - Amaya Yoder APN, DOUGLAS 1 year ago Chronic bronchitis with productive mucopurulent cough (HCC) [facility] - Fox Conde PAC 1 year ago Chronic bronchitis, unspecified chronic bronchitis type (HCC) [facility] - Amaya Yoder APN, CNP Upcoming Appointments MAIL SORTER - Recent and Past Visits Recent Visits [...] change Department associated with goal: [facility] Steps to [...] - 19 10/11/2020 10/11/2020 10/13/2020 8:16 AM FOREPART LASTER COVID - 19 11/26/2022 11/26/2022 11/26/2022 4:47 PM FOREPART LASTER COVID - 19 11/26/2022 11/26/2022 12/06/2022 12:1 9 AM FOREPART LASTER Assessment Noted Time PHQ-9 Depression Total Score: 13 020 2:00 PM CDT documented as of this encounter Care Teams Pharmacy Technician Relationship Specialty Start Date End Date Amaya Kowalski, COMPUTER NUMERICAL CONTROL GRINDER, PUBLICITY WRITER [address] [place] [address] PCP - General Advanced Practice Nurse 06/10/18 04/22/23 Sravani Ramsay MD [address] [place] [address] PCP - General Family Medicine 04/23/23 12/30/23 Shravan Burgos PAC [address] [place] [address] PCP - General Physician Motor Carrier Inspector 12/31/23 Arnold Roberts MD [address] [place] [address] Consulting Physician Pulmonary Disease 07/26/23 documented as of this encounter
[2025-04-27 15:36] VITALS: BP 151/94; PULSE 78; RESP 20; TEMP 36.5; O2SAT 99
--- NOTE | 2025-04-27 16:11 | ED_ITS ---
HPI - Extremity Injury (Lower) General Chief Complaint: Extremity Injury, Lower Stated Complaint: Left Leg Pain Time Seen by Provider: 04/27/25 15:40 Source: patient and RN notes reviewed Mode of arrival: ambulatory Limitations: no limitations History of Present Illness HPI Narrative: 44-year-old female presents Express Care left leg pain for 6 days. Patient denies injury to her left leg. She reports the pain is primarily behind her left knee. Patient states that shoots down into her left calf. Patient also reports swelling in her leg and also reports her leg feeling? tight?. Patient denies any recent surgeries, history of blood clot, or PE on any blood thinners. Patient denies any numbness or tingling to her leg. Denies any back pain, chest pain, shortness of breath. Patient denies any other complaints. Related Data Home Medications ?Medication ?Instructions ?Recorded ?Confirmed ?Last Taken ?Type lorazepam 0.5 mg tablet 0.5 mg PO BID PRN Anxiety 12/04/23 03/30/24 03/15/24 History albuterol 90 mcg/actuation aerosol 90 mcg inhalation QID PRN SOB 01/04/24 03/30/24 Unknown History inhaler fenofibrate 160 mg tablet 160 mg PO DAILY 01/04/24 03/30/24 Unknown History ipratropium 0.5 mg-albuterol 3 mg ml inhalation 11/23/24 Unknown History (2.5 mg base)/3 mL nebulization soln levonorgestrel (Mirena) 1 device intrauterine ONCE 11/23/24 Unknown History Allergies Allergy/AdvReac Type Severity Reaction Status Date / Time doxycycline Allergy Intermediate Rash Verified 11/23/24 08:40 sulfamethoxazole (From Allergy Intermediate Rash Verified 11/23/24 08:40 Bactrim) trimethoprim (From Bactrim) Allergy Intermediate Rash Verified 11/23/24 08:40 Review of Systems Review of Systems: CONSTITUTIONAL: Denies fever, chills, or sweats. EYES: Denies visual changes, redness, or discharge. ENT: Denies rhinorrhea, congestion, sore throat, or otalgia. CARDIOVASCULAR: Denies chest pain, palpitations, or edema. RESPIRATORY: Denies cough or dyspnea. GASTROINTESTINAL: Denies abdominal pain, nausea, vomiting, or diarrhea. GENITOURINARY: Denies dysuria or hematuria. SKIN: Denies rash or itching. MUSCULOSKELETAL: Denies back pain, joint pain, or myalgia. Positive for left leg pain and swelling NEUROLOGIC: Denies headache, numbness, or weakness. PSYCHIATRIC: Denies anxiety or depression. All other systems reviewed are negative, except as documented in HPI. [facility] Past Medical History Medical History Ear infection Diarrhea Dysphagia Nausea Postprandial RUQ pain Postprandial abdominal bloating Scoliosis Bronchitis Surgical History Surgical History No pertinent past surgical history Family History Family History Mother Family history non-contributory Social History Social History Years smoked: 30 Smoking status: Never smoker Tobacco type: cigarettes Additional smoking assessment comments: Social Smoker Alcohol intake: current Alcohol use details: Daily Substance use: never Gender identity (if verbalized by the patient): Female Spiritual care concerns: No Comments At the time of my signature, I reviewed and agree with the nursing past medical, surgical, social, and family history. There is no relevant family history pertinent to the patient complaint. Exam Narrative: GENERAL: This is a well-nourished, well-developed adult, in no apparent distress. They are non ill-appearing, nontoxic appearing. HEAD: normocephalic, atraumatic. EYES: Sclera clear/white. Conjunctiva normal. Vision is grossly intact. Extraocular movements intact EARS: External ears normal,Hearing grossly intact. NOSE: External nose normal THROAT: Mucous membranes moist NECK: Neck supple, CARDIOVASCULAR: Regular rate and rhythm RESPIRATORY: Respiratory rate normal, respiratory effort nonlabored, no respiratory distress SKIN: warm, Dry, intact with no suspicious lesions or rash, good texture and turgor. NEURO: awake, alert, and oriented to person, place and time. There were no obvious focal neurologic abnormalities. EXTREMITIES: Left leg: Tenderness to palpation behind the left knee into left calf, there is mild swelling surrounding the left knee area and posterior leg compared to right leg. No palpable cord. No injury, bruising, redness. Normal range of motion to left leg. Pedal pulse 2 +and palpable. Neurovascular status intact left leg. Normal sensation. Normal flexion and extension of left knee. Normal dorsiflexion plantar flexion of the left ankle. BACK: Nontender without deformity. Course Course Emergency Course: Portions of this record may have been created with voice recognition software Level of Care: Express Care Visit Vital Signs Vital signs: Vital Signs Temperature 97.7 F 04/27/25 15:36 Pulse Rate 78 04/27/25 15:36 Respiratory Rate 20 04/27/25 15:36 Blood Pressure 151/94 H 04/27/25 15:36 Pulse Oximetry 99 04/27/25 15:36 Oxygen Delivery Room Air 04/27/25 15:36 Temperature 97.7 F 04/27/25 15:36 Pulse Rate 78 04/27/25 15:36 Respiratory Rate 20 04/27/25 15:36 Blood Pressure 151/94 H 04/27/25 15:36 Pulse Oximetry 99 04/27/25 15:36 Oxygen Delivery Room Air 04/27/25 15:36 Reviewed Transfer Transfered to: [facility] Transportation: Other (Private vehicle) Transfer rationale: DVT to rule out, higher level care Accepting physician: Dr. Ponce MDM - Extremity Injury (Lower) MDM Narrative Medical decision making narrative: Wells score 1. Cannot rule out DVT. Patient denies injuries, no indication for x-ray. It is recommended base of these findings the patient is a higher level care at the emergency department for further evaluation management. Patient is agreeable to go over to [facility] ER. Call over to [facility] ER spoke to Yogi ANDERSON who is aware this patient and Dr. Ponce with accepted this patient for transfer. Patient advised to remain NPO and proceed immediately to the ER. Differential Diagnosis Differential diagnosis: Likely other (Deep vein thrombosis, sciatica, leg strain) Critical Care Time Critical Care Time Critical Care Time: No Discharge Plan Discharge Clinical Impression: Left leg pain Patient Disposition: Acute Care Hospital Condition: Stable Patient Language: Swedish Prescriptions: No Action lorazepam 0.5 mg tablet 0.5 mg PO BID PRN (Reason: Anxiety) ipratropium-albuterol 0.5 mg-3 mg(2.5 mg base)/3 mL solution for nebulization INHALATION Mirena 21 mcg/24hr (up to 8 yrs) 52 mg intrauterine device 1 device intrauterine ONCE Rx Instructions: as a single dose tobramycin 0.3 % drops 1 drp EACH EYE Q4H 7 Days Qty: 5 0RF prednisone 50 mg tablet 50 mg PO DAILY Qty: 5 0RF fenofibrate 160 mg tablet 160 mg PO DAILY albuterol 90 mcg/actuation aerosol 90 mcg inhalation QID PRN (Reason: SOB) Follow-up/Referrals: Aubrey,Shravan Ponce [Primary Care Provider] - Time of Disposition: 16:00
== END 2025-04-27 16:12 | disposition short-term general hospital (02) ==
PROVIDERS: PCP Physician Assistant
DX: M79.662 Pain in left lower leg (principal); M41.9 Scoliosis, unspecified
CPT/HCPCS: 99212; G0463

== ENCOUNTER 2025-06-07 07:35 | Outpatient (CLI) | payer OTHER, SELFPAY ==
--- OUTSIDE RECORDS SUMMARY | 2025-06-07 07:43 | XMS_ITS | Encounter Summary ---
Author Organization [facility] Address [address] [place] [address] Phone Care Team Providers Care Idea Man Name Role Phone Amaya Kowalski APRN, CNP Primary Care Provider Sravani Ramsay MD Primary Care Provider [phone] Arnold Roberts MD Unavailable Shravan Burgos Primary Care Provider + [phone] Reason for Visit * Reason Onset Date Comments Cough 11/26/2022 Encounter Details Date Type Department Care Team ([facility] Contact Info) Description 11/26/2022 Nurse Triage [facility] - Primary Care - [place] [address] [place] [address] Amaya Kowalski APRN, BIOFUELS PRODUCTION ASSOCIATE [address] [place] [address] Cough Social History Tobacco Use [...] Information Value Date Recorded Sex Assigned at Female 05/10/2025 3:17 PM CDT Legal Sex Female 9:34 PM CDT Gender Identity Female 05/10/2025 3:17 PM CDT Sexual Orientation Not on file COVID-19 Exposure Response Date Recorded In the last 10 days, have yo u been in contact with someone who was confirmed or suspected to have Coronavirus/COVID-19? No / Unsure 11/26/2022 4:19 PM BORE MILL OPERATOR FOR PLASTIC documented as of this encounter Miscellaneous Notes * Telephone Encounter - Mohini Aguirre RN - 11/26/2022 11:57 AM BORE MILL OPERATOR FOR PLASTIC SITUATION: Cough which is keeping her up [...] travel history, exposures) no Protocols used: COUGH-A-OH MILL OPERATOR FOR PLASTIC * Telephone Encounter - Mohini Aguirre RN - 11/26/2022 11:55 AM CSTFrom: Irma Seymour To: Ivelisse Kowalski Sent: 11/26/2022 11:18 AM BORE MILL OPERATOR FOR PLASTIC Subject: Cough Hello. So I have been [...] let me know. I work till 3pm. MILL OPERATOR FOR PLASTIC documented in this encounter Plan of Treatment Upcoming Encounters Date Type Department Care Team (Late st Contact Info) Description 06/08/2025 5:00 PM CDT Office Visit [facility] - Primary Care - [place] [address] [place] [address] Shravan Burgos PAC [address] [place] [address] documented as of this [...] - 19 11/26/2022 11/26/2022 11/26/2022 4:47 PM BORE MILL OPERATOR FOR PLASTIC COVID - 19 11/26/2022 11/26/2022 12/06/2022 12:1 9 AM BORE MILL OPERATOR FOR PLASTIC Assessment Noted Time PHQ-9 Depression Total Score: 13 020 2:00 PM CDT documented as of this encounter Care Teams Idea Man Relationship Specialty Start Date End Date Amaya Kowalski, DIRECTOR OF INSTRUCTION, BIOFUELS PRODUCTION ASSOCIATE [address] [place] [address] PCP - General Advanced Practice Nurse 06/10/18 04/22/23 Sravani Ramsay MD [address] [place] [address] PCP - General Family Medicine 04/23/23 12/30/23 Shravan Burgos PAC [address] [place] [address] PCP - General Physician Nuclear Control Operator 12/31/23 Arnold Roberts MD [address] [place] [address] Consulting Physician Pulmonary Disease 07/26/23 documented as of this encounter
--- OUTSIDE RECORDS SUMMARY | 2025-06-07 07:43 | XMS_ITS | Encounter Summary ---
Author Organization [facility] Address [address] [place] [address] Phone Care Team Providers Care Senior Mechanical Development Engineer Name Role Phone Sravani Ramsay MD Primary Care Provider + [phone] Arnold Roberts MD Unavailable Shravan Burgos Primary Care Provider + [phone] Reason for Visit * Reason Comments Medication Refill Encounter Details Date Type Department Care Team (Late st Contact Info) Description 05/10/2023 Refill [facility] - Primary Care - [place] [address] [place] [address] Amaya Kowalski, SPRINKLING SYSTEM IRRIGATOR, HEARING CARE PRACTITIONER [address] [place] [address] Medication Refill Social History Tobacco [...] Description 06/08/2025 5:00 PM CDT Office Visit [facility] - Primary Care - [place] [address] [place] [address] Shravan Burgos, PAPI [address] [place] [address] documented as of this encounter [...] a change Department associated with goal: [facility] Steps to achieve goal: [...] track(2019 9:50 AM CDT) No Eloise Jenkins, [facility] Note: Irma will engage in a plan of action to improve emotional and mental wellbeing. Goal Reviewed with: patient Readiness to change: Not yet ready to make a change Department associated with goal: [facility] Steps to achieve goal: [...] as of this encounter Care Teams Senior Mechanical Development Engineer Relationship Specialty Start Date End Date Sravani Ramsay MD [address] [place] [address] PCP - General Family Medicine 04/23/23 12/30/23 Shravan Burgos PAC [address] [place] [address] PCP - General Physician Tool Operator 12/31/23 Arnold Roberts MD [address] [place] [address] Consulting Physician Pulmonary Disease 07/26/23 documented as of this encounter
--- OUTSIDE RECORDS SUMMARY | 2025-06-07 07:43 | XMS_ITS | Encounter Summary ---
Author Organization [facility] Address [address] [address] Phone Care Team Providers Care Crown Buffer Name Role Phone Amaya Kowalski APRN, HAND WELT BUTTER Primary Care Provider Sravani Ramsay MD Primary Care Provider [phone] Arnold Roberts MD Unavailable Shravan Burgos Primary Care Provider + [phone] Reason for Visit * Reason Comments Medication Refill Encounter Details Date Type Department Care Team ([facility] Contact Info) Description 10/24/2020 Refill [facility] - Primary Care - [place] [address] [place] [address] Amaya Kowalski APRN, HAND WELT BUTTER [address] [place] [address] Medication Refill Social History Tobacco [...] Coronavirus / COVID-19? Yes 10/15/2020 10:41 AM COLD TYPE ARTIST documented as of this encounter Miscellaneous Notes * Telephone Encounter - Latia Garcia CMA - 10/25/2020 7:57 AM CST This medication was already order. Please refused. TYPE ARTIST documented in this encounter Plan of Treatment Upcoming Encounters Date Type Department Care Team (Late st Contact Info) Description 06/08/2025 5:00 PM CDT Office Visit [facility] - Primary Care - [place] [address] [place] [address] Shravan Burgos PAC [address] [place] [address] documented as of this encounter [...] track(2019 9:50 AM CDT) No Eloise Jenkins FLOOR WORKER WELL SERVICE Note: Irma will engage in a plan [...] - 19 11/26/2022 11/26/2022 11/26/2022 4:47 PM COLD TYPE ARTIST COVID - 19 11/26/2022 11/26/2022 12/06/2022 12:1 9 AM COLD TYPE ARTIST Assessment Noted Time PHQ-9 Depression Total Score: 13 020 2:00 PM CDT documented as of this encounter Care Teams Crown Buffer Relationship Specialty Start Date End Date Amaya Kowalski, ADVERTISER, HAND WELT BUTTER [address] [place] [address] PCP - General Advanced Practice Nurse 06/10/18 04/22/23 Sravani Ramsay MD [address] [place] [address] PCP - General Family Medicine 04/23/23 12/30/23 Shravan Burgos, [facility] [address] [place] [address] PCP - General Physician Wrapper Sorter 12/31/23 Arnold Roberts MD [address] [place] [address] Consulting Physician Pulmonary Disease 07/26/23 documented as of this encounter
--- OUTSIDE RECORDS SUMMARY | 2025-06-07 07:43 | XMS_ITS | Encounter Summary ---
Author Organization [facility] Address [address] [place] [address] Phone Care Team Providers Care Plastic Molding Operator Name Role Phone Amaya Kowalski APRN, VICE ADMIRAL Primary Care Provider Sravani Ramsay MD Primary Care Provider + [phone] Arnold Roberts MD Unavailable Shravan Burgos Primary Care Provider + [phone] Reason for Visit * Reason Comments Medication Refill Encounter Details Date Type Department Care Team ([facility] Contact Info) Description 11/27/2020 Refill [facility] - Primary Care - [place] [address] [place] [address] Fox Jesus, PAPI Medication Refill [...] COVID-19? No / Unsure 11/04/2020 1:11 PM COMMERCIAL LITIGATION ATTORNEY documented as of this encounter Miscellaneous Notes [...] of left foot, initial encounter [facility] [place] S[place], [place], VICE ADMIRAL 7 months ago Moderate episode of recurrent major depressive disorder (HCC) [facility] - Amaya Yoder, DISTRIBUTION SYSTEMS SUPERINTENDENT, VICE ADMIRAL 1 year ago Anxiety [facility] - Amaya Yoder, DISTRIBUTION SYSTEMS SUPERINTENDENT, VICE ADMIRAL 1 year ago Chronic bronchitis with productive mucopurulent cough (HCC) [facility] - Fox Conde PAC 1 year ago Chronic bronchitis, unspecified chronic bronchitis type (HCC) [facility] - Amaya Yoder, DISTRIBUTION SYSTEMS SUPERINTENDENT, VICE ADMIRAL Upcoming Appointments MEDICAL RECORDS ADMINISTRATOR - Recent and Past Visits Recent Visits Date Type Provider Dept 07/26/20 Office Visit Amaya Kowalski APN, VICE ADMIRAL [facility] [address] 04/05/20 Office Visit Amaya Kowalski APN, DOUGLAS [facility] [address] Showing recent visits within past 460 days with a meds authorizing provider and meeting all other requirements Future Appointments No visits were found meeting these conditions. Showing future appointments within next 90 days with a meds authorizing provider and meeting all other requirements ERCIAL LITIGATION ATTORNEY documented in this encounter Plan of Treatment Upcoming Encounters Date Type Department Care Team (Late st Contact Info) Description 06/08/2025 5:00 PM CDT Office Visit [facility] - Primary Care - [place] [address] [place] [address] Shravan Burgos PAC [address] [...] Department associated with goal: [facility] [...] 19 11/26/2022 11/26/2022 11/26/2022 4:47 PM COMMERCIAL LITIGATION ATTORNEY COVID - 11/26/2022 11/26/2022 12/06/2022 12:1 9 AM COMMERCIAL LITIGATION ATTORNEY Assessment Noted Time PHQ-9 Depression Total Score: 13 020 2:00 PM CDT documented as of this encounter Care Teams Plastic Molding Operator Relationship Specialty Start Date End Date Amaya Kowalski, EARTH BURNER, VICE ADMIRAL [address] [place] [address] PCP - General Advanced Practice Nurse 06/10/18 04/22/23 Sravani Ramsay MD [address] [place] [address] PCP - General Family Medicine 04/23/23 12/30/23 Shravan Burgos PAC [address] [place] [address] PCP - General Physician Tool Crib Attendant 12/31/23 Arnold Roberts MD [address] [place] [address] Consulting Physician Pulmonary Disease 07/26/23 documented as of this encounter
--- OUTSIDE RECORDS SUMMARY | 2025-06-07 07:43 | XMS_ITS | Encounter Summary ---
Author Organization [facility] Address [address] [facility] [place] [address] Phone Care Team Providers Care Family Partner Name Role Phone Amaya Kowalski APRN, DOUGLAS Primary Care Provider Sravani Ramsay MD Primary Care Provider [phone] Arnold Roberts MD Unavailable Shravan Burgos Primary Care Provider + [phone] Reason for Visit * Reason Comments Medication Refill Encounter Details Date Type Department Care Team (Late st Contact Info) Description 08/22/2020 Refill [facility] [address] [place] [address] Amaya Kowalski APRN, ASSET PROTECTION LEAD [address] [place] [address] Medication Refill Social History Tobacco [...] ago Injury of left foot, initial encounter [facility] - Family Medicine - Amaya Rodriguez APN, DOUGLAS 4 months ago Moderate episode of recurrent major depressive disorder (HCC) [facility] - Amaya Yoder APN, DOUGLAS 1 year ago Anxiety [facility] - Amaya Yoder APN, DOUGLAS 1 year ago Chronic bronchitis with productive mucopurulent cough (HCC) [facility] - Fox Conde PAC 1 year ago Chronic bronchitis, unspecified chronic bronchitis type (HCC) [facility] - Amaya Yoder APN, DOUGLAS Upcoming Appointments DISABILITY COUNSELOR - Recent and Past Visits Recent Visits Date Type Provider Dept 07/26/20 Office Visit Amaya Kowalski APN, CNP [facility] 04/05/20 Office Visit Amaya Kowalski APN, CNP [facility] 08/17/19 Office Visit Amaya Kowalski APN, CNP [facility] [...] Description 06/08/2025 5:00 PM CDT Office Visit [facility] Primary Care - [place] [address] [place] [address] Shravan Burgos PAC [address] [place] [address] documented as of this encounter Goals Goal Patient Goal Type Associated Problems Recent Progress Patient-Stated? Author Behavioral Health Behavioral Health On track(2019 9:50 AM CDT) Yes Eloise Jenkins, HYDROELECTRIC OPERATOR Note: Irma reported her goal for [...] On track(2019 9:50 AM CDT) Eloise Mix HYDROELECTRIC OPERATOR Note: Irma will engage in a [...] - 19 10/11/2020 10/11/2020 10/13/2020 8:16 AM OPERATIONS LEAD COVID - 19 11/26/2022 11/26/2022 11/26/2022 4:47 PM OPERATIONS LEAD COVID - 19 11/26/2022 11/26/2022 12/06/2022 12:1 9 AM OPERATIONS LEAD Assessment Noted Time PHQ-9 Depression Total Score: 13 020 2:00 PM CDT documented as of this encounter Care Teams Family Partner Relationship Specialty Start Date End Date Amaya Kowalski, COSTUME DRAPER, ASSET PROTECTION LEAD [address] [place] [address] PCP - General Advanced Practice Nurse 06/10/18 04/22/23 Sravani Ramsay MD [address] [place] [address] PCP - General Family Medicine 04/23/23 12/30/23 Shravan Burgos, PAC [address] [place] [address] PCP - General Physician Security Assistant 12/31/23 Arnold Roberts MD [address] [place] [address] Consulting Physician Pulmonary Disease 07/26/23 documented as of this encounter
--- OUTSIDE RECORDS SUMMARY | 2025-06-07 07:43 | XMS_ITS | Clinical Summary ---
Author Organization [facility] Address [address] [place] [address] Care Team Providers Care Supervisor [employer] Name Role Phone Unavailable Primary Care Provider Unavailabl e Source Comments [facility],non-owned Affiliates and Associated Physician Practices is amultiple site organization consisting of ambulatory clinics and hospital sitesin [place], [place], [place] and [place]. This disclosure is being madepursuant to the Care Everywhere program and may not contain all information available regarding this patient. Last updated 18.[facility] [employer] Social History Tobacco Use Types Packs/Day Years Used Date Smoking Tobacco: Never Assessed Comments Unknown Sex and Gender Information Value Date Recorded Sex Assigned at Not on file Legal Sex Female 6:24 AM INSURANCE AND BENEFITS CLERK Gender Identity Not on file Sexual Orientation [...] SCREENING 1978 LIPID TESTING 1978 MAMMOGRAM 1978 HIV SCREENING 1993 HEPATITIS C SCREENING 05/15/1996 DTAP/TDAP/TD VACCINES (1 - Tdap) 1997 HEPATITIS B VACCINE (1 of 3 - 19+ 3-dose series) 1997 PAP SMEAR 1999 COVID-19 VACCINE (2023-2 5 season) 2024 DEPRESSION SCREENING 11/29/2024 INFLUENZA VACCINE (#1) 2025 9, 09/26/2018, 09/25/2018 ZOSTER VACCINE (1 of [...] patient's age to complete this topic Insurance [facility] MEDICAID OUT [facility] CARE SELF PAY NO INSURANCE Member Subscriber Plan / Payer (Ef fective for All Dates) Name:Irma Seymour Member ID:Not on file Relation to Subscriber:Not on file Name:IRMA SEYMOUR Subscriber ID:Not on file Address: [address] [place] [id number] Payer ID:Not on file Group ID:Not on file Type:Self Pay Address: [facility] CARE SELF PAY NO INSURANCE Member Subscriber Plan / Payer (Ef fective for All Dates) Name:Irma Seymour Member ID:Not on file Relation to Subscriber:Not on file Name:IRMA SEYMOUR Subscriber ID:Not on file Address: [address] [place] [id number] Payer ID:Not on file Group ID:Not on file Type:Self Pay Address: [facility] * Guarantor: IRMA SEYMOUR Type Relation to Patient Date of Phone Billing Address Personal/Family Spouse [facility] [place] [phone] SELF PAY NO INSURANCE Member Subscriber Plan / Payer (Ef fective for All Dates) Name:Irma Seymour Member ID:Not on file Relation to Subscriber:Not on file Name:IRMA SEYMOUR Subscriber ID:Not on file Address: [address] [place] [phone] Payer ID:Not on file Group ID:Not on file Type:Self Pay Address: [facility] CARE
--- OUTSIDE RECORDS SUMMARY | 2025-06-07 07:43 | XMS_ITS | Referral Summary ---
Author Organization [facility] Medical Office Building A Address [address] [place] [address] Care Team Providers Care Front Of House Manager Name Role Phone Amaya Kowalski NP Primary Care Provider [phone] Allergies Active Allergy Reactions Criticality Noted Date [...] 05/11/2017 Assessment & Plan (10/29/2017 12:22 PM TECHNICAL OPERATIONS MANAGER): Anxiety disorder does not seem to be [...] on file Legal Sex Female 3:28 AM TECHNICAL OPERATIONS MANAGER Gender Identity Not on file Sexual [...] on file Insurance [facility] H[facility]/PPO Address: [address] [address] [place] [address] [facility] H[facility]/PP[facility] Address: [address] [address] [place] [address] Care Teams Front Of House Manager Relationship Specialty Start Date End Date Amaya Kowalski NP PCP - General Nurse Practitioner 09/25/20
--- OUTSIDE RECORDS SUMMARY | 2025-06-07 07:43 | XMS_ITS | Clinical Summary ---
Author Organization [facility] Address [address] [place] [address] Phone Care Team Providers Care Cork Insulator Name Role Phone Arnold Roberts MD Unavailable [...] Active fluticasone (FLONASE) 50 MCG/ACT Suspension 1 [place] by Nasal route daily. Use in each nostril as directed. 16 g 1 10/03/20 24 Active azelastine (ASTELIN) 0.1 % SolutionIndicat ions:Other chronic sinusitis 2 Sprays by Nasal route 2 times daily. Use in each nostril as directed 30 mL 1 12/13/19 25 Active LORazepam (ATIVAN) 0.5 MG TabletIndicatio ns:Anxiety TAKE 1 TABLET BY MOUTH TWICE A DAY NEEDED FOR ANXIETY 60 Tablet 06/05/20 25 Active cyclobenzaprine (FLEXERIL) 10 MG Tablet Take 1 Tablet by mouth 3 times daily as needed for Muscle spasms for up to 14 days. 30 Tablet 04/27/20 25 2024 LORazepam (ATIVAN) 0.5 MG TabletIndicatio ns:Anxiety TAKE 1 TABLET BY MOUTH TWICE A DAY NEEDED FOR ANXIETY 60 Tablet 05/02/20 25 2024 Discontinued Active Problems Problem Noted [...] Encounters Date Type Department Care Team Description 06/04/2025 Refill [facility] [place] [address] [place] [address] Shravan Burgos, PAC Medication Refill 05/11/2025 Documentation Only [facility] [place] [address] [place] [address] Shravan Burgos, PAC 05/10/2025 Telephone [facility] Central Call Center [address] [place] [address] Shravan Burgos, PAC Labs Only 05/02/2025 Refill [facility] [place] [address] [place] [address] Shravan Burgos, PAC Medication Refill 04/27/2025 4:32 PM CDT - 04/27/2025 7:19 PM CDT Emergency [facility] [address] [place] [address] Korin Cash APRN, BENEFITS MANAGER Sciatica of left side Discharge Disposition: Discharged to home or Selfcare 04/27/2025 Travel 04/01/2025 Refill [facility] [place] [address] [place] [address] Shravan Burgos, PAPI Medication Refill from Last [...] drink = 0.6 oz pur e alcohol) [employer] Answer Date Recorded In the past 12 months has [employer], gas, oil, or water [employer] threatened to shut off services in your home? No 12/13/2024 Social Connection and Isolation Panel Answer Date Recorded In a typical week, how many times do you talk on the phone with family, friends, or neighbors? More than three times a week 12/13/2024 How often do you get togethe r with friends or relatives? More than three times a week 12/13/2024 How often do you attend [facility] or confucianism services? Never 12/13/2024 Do you belong to any clubs o r organizations such as zoroastrian groups, unions, fraternal or athletic groups, or [...] Total Score - Questions 1-9 0 11/29 [facility]ational Stress Questionnaire Answer [...] in a chcf (including now)? No 12/31/2023 Housing Stability Vital Sign Answer Bladimir e Recorded In the last 12 months, was t here a time when you were not able to pay the mortgage or rent on time? No 12/13/2024 Number of Times Moved in the Last Year Not on fi le 12/13/2024 At any time in the past [facility], were you homeless or living in a chcf (including now)? No 12/13/2024 Education Answer Date [...] PM CDT Sexual Orientation Not on file Last Filed Vital Signs Vital Sign Reading Time Taken Comments Blood Pressure 155/97 04/27/2025 4:29 PM CDT Pulse 77 04/27/2025 4:29 PM CDT Temperature 37 C (98.6 F) 04/27/2025 4:29 PM CDT Respiratory Rate 19 04/27/2025 4:29 PM CDT Oxygen Saturation 100% 04/27/2025 4:29 PM CDT Inhaled Oxygen Concentration - - Weight 63.5 kg (140 lb) 04/27/2025 4:29 PM CDT Height 157.5 cm (5' 2) 04/27/2025 4:29 PM CDT Body Mass Index 25.61 04/27/2025 4:29 PM CDT Plan of Treatment Upcoming Encounters Date Type Department Care Team (Late st Contact Info) Description 06/08/2025 5:00 PM CDT Office Visit [facility] - [facility] - [place] [address] [place] [address] Shravan Burgos, PAPI [address] [place] [address] Health Maintenance Due Date Last Done Comments TdaP Immunization 1978 Pneumococcal Immunization Combined (1 of 2 - PCV) 1997 HPV/Cotest 2008 Cologuard 2023 Immunochemical Fecal Occult Blood 2023 SARS-COV-2 Immunization ( season) 2024 11/07/2021, 10/17/2021 Influenza Immunization (#1) 07/30/202508/29, 08/25/2023, 09/11/2022, Additional history exists Cervical Cancer Screening (CCS) 09/11/2025 Mammogram 09/11/2025 09/11/2024, 07/30, 09/13/2020, Additional history exists Pap Smear 09/11/2025 09/11/2022 Colonoscopy 03/15/2034 03/15/2024, 03/15/2024 Colorectal Cancer Screening 03/15/2034 Respiratory Syncytial Virus (RSV) Immunization (Adult) (1 - 1-dose 75+ series) 2053 Hepatitis B Immunization Discontinued 08/27/2014, 06/30 Hepatitis C Virus (HCV) Screening Completed 07/14/2023 Discussion re Starting/Frequency of Mammograms Completed 09/11/2024, [...] On track(2019 9:50 AM CDT) Eloise Mix, [facility] Note: Irma will engage in [...] Name Priority Date/Time Associated Diagnosis Comments US LEFT DUPLEX LOWER EXTREMITY VEINS Stat with Interpretation 04/27/2025 5:06 PM CDT NU SCREENING BILATERAL DIGITAL W CAD W WILBERT Routine 09/11/2024 4:29 PM CDT Visit for screening mammogram HM COLONOSCOPY 03/15/2024 12:00 AM CDT HEPATITIS C ANTIBODY Routine 07/14/2023 4:05 PM CDT Encounter for preventative adult health care examination from Last 3 Months or Most Recently Relevant to Health Maintenance Results * US LEFT DUPLEX LOWER EXTREMITY VEINS (04/27/2025 5:06 PM CDT) Anatomical Region Laterality Modality vascular Left Ultrasound 04/27/2025 6:43 PM CDT Impressions 04/27/2025 6:46 PM CDT IMPRESSION: No left lower extremity deep venous thrombosis. 3.1 cm De La O's cyst left popliteal fossa. Narrative 04/27/2025 6:46 PM CDT EXAM DESCRIPTION: US LEFT DUPLEX LOWER EXTREMITY VEINS REASON FOR STUDY: leg pain for 6 days. Concern for deep vein thrombosis. TECHNIQUE: Duplex scan using the B-mode, spectral Doppler, and color-flow Doppler of the deep venous system of the left lower extremity was performed. Images stored on PACS. COMPARISON: None FINDINGS: The common femoral, common femoral-saphenous vein confluence, visualized profunda femoral, superficial femoral, and popliteal veins are readily compressible with no intraluminal thrombus on booker scale images. There is normal color and spectral Doppler signal, including augmentation. Greater saphenous vein appears patent. Visualized calf veins are patent. 3.1 cm x 1.8 cm x 2.5 cm fluid collection in the left popliteal fossa characteristic of a De La O's cyst. THIS IS AN ELECTRONICALLY VERIFIED FINAL REPORT 04/27/2025 6:43 PM - Electronically signed by Vish Sadler M.D. KT: AARON Report ID: [id number] Reading Location: [id number] Procedure Note Vish Sadler MD - 04/27/2025 EXAM DESCRIPTION: US LEFT DUPLEX LOWER EXTREMITY VEINS REASON FOR STUDY: leg pain for 6 days. Concern for deep vein thrombosis. TECHNIQUE: Duplex scan using the B-mode, spectral Doppler, and color-flow Doppler of the deep venous system of the left lower extremity was performed. Images stored on PACS. COMPARISON: None FINDINGS: The common femoral, common femoral-saphenous vein confluence, visualized profunda femoral, superficial femoral, and popliteal veins are readily compressible with no intraluminal thrombus on booker scale images. There is normal color and spectral Doppler signal, including augmentation. Greater saphenous vein appears patent. Visualized calf veins are patent. 3.1 cm x 1.8 cm x 2.5 cm fluid collection in the left popliteal fossa characteristic of a De La O's cyst. THIS IS AN ELECTRONICALLY VERIFIED FINAL REPORT 04/27/2025 6:43 PM - Electronically signed by Vish Sadler M.D. KT: AARON Report ID: [id number] Reading Location: [id number] IMPRESSION: No left lower extremity deep venous thrombosis. 3.1 cm De La O's cyst left popliteal fossa. Korin Cash APRN, DOUGLAS IMG US ORDERABLES Final Result * NU SCREENING BILATERAL DIGITAL W CAD [...] exams dated: 08/14/2022, 11/04/2020, 09/13/2020, and 03/14/2019 [facility]. BREAST TISSUE:The breasts are heterogeneously [...] exam. Electronically signed by: Mounika vidales/jenna:09/11/2024 19:49:19 Otr Driver(s): RT Raegan(R)(M), [facility] letter sent: Normal Exam Reading [...] exams dated: 08/14/2022, 11/04/2020, 09/13/2020, and 03/14/2019 [facility]. BREAST TISSUE:The breasts are heterogeneously [...] exam. Electronically signed by: Mounika vidales/jenna:09/11/2024 19:49:19 Otr Driver(s): RT Raegan(R)(M), [facility] letter sent: Normal Exam Reading location: [place] Mammogram BI-RADS: Category 1: Negative Veronika Orantes APRN, CNP IMG MAMMO ORDERABLES Kaylin l Result * HM COLONOSCOPY (03/15/2024 12:00 AM CDT) 03/15/2024 Provider Scan PROCEDURE/MINOR SURGICAL ORDERAB LES Final Result SCAN * HEPATITIS C ANTIBODY (07/14/2023 4:05 PM CDT) hepatitis C antibody 0.10 <1 S/CO [facility] ARCH [id number] 07/15/2023 3:00 PM CDT [facility] Comment: Signal/Cutoff ratio < 0.79 is Nondetected Signal/Cutoff ratio 0.80-0.99 is Grayzone Signal/Cutoff ratio > 0.99 is Detected Supplemental assays are recommended if signal/cutoff ratio is >/=1.00. Signal/cutoff ratio result >/= 5.00 is 97% predictive of positivity for recombinant immunoblot assay (RIBA) and will be reported to the [place] Department of Public Health as required. Blood Venipuncture / Unknown 07/14/2023 4:05 PM CDT 07/14/2023 4:33 PM CDT us Sravani Ramsay MD CHEMISTRY ORDERABLES Final R esult F [facility] [place] [address] [place] [address], from Last 3 Months or Most Recently Relevant to Health Maintenance Insurance [facility] Advance Directives * Full Code (Latest Code Status on File) Date Activated Date Inactivated Comments 12/05/2020 4:55 AM 12/06/2020 12:59 AM CPR-Full Mya tment: FULL ARREST: Attempt Resuscitation/CPR wit intubation and mechanical ventilation. PRE-ARREST: Use entire range of life support measures to stabilize the patient. Care Teams Cork Insulator Relationship Specialty Start Date End Date Shravan Burgos, PAC [address] [place] [phone] PCP - General Physician Dressmaker Garment Fitter 12/31/23 Arnold Roberts MD [address] [place] [address] Consulting Physician Pulmonary Disease 07/26/23
--- OUTSIDE RECORDS SUMMARY | 2025-06-07 07:43 | XMS_ITS | Encounter Summary ---
Author Organization [facility] Address [address] [place] [address] Phone Care Team Providers Care Brancher Name Role Phone Arnold Roberts MD Unavailable Shravan Burgos PAC Primary Care Provider [phone] Reason for Visit * Reason Onset Date Comments Ear Pain 10/13/2024 Encounter Details Date Type Department Care Team (Late st Contact Info) Description 10/13/2024 Nurse Triage [facility] [address] [place] [address] Shravan Burgos, PAC [address] [place] [address] Ear Pain Social History Tobacco Use Types Packs/Day Years Used Date Smoking Tobacco: Some Days Cigarettes Smokeless Tobacco: Never Comments:Pt has multiple day s in a row she abstains. Alcohol Use Standard Drinks/Week Comments Yes 5 (1 standard drink = 0.6 oz pur e alcohol) socially [employer] Answer Date Recorded In the past 12 months has [employer], gas, oil, or water company threatened to shut off services in your home? No 12/31/2023 Social Connection and Isolation Panel Answer Date Recorded In a typical week, how many times do you talk on the phone with family, friends, or neighbors? Patient declined 12/31/2023 How often do you get togethe r with friends or relatives? Patient declined 12/31/2023 How often do you attend amish or sabianist serv ices? Patient declined 12/31/2023 Do you belong to any clubs o r organizations such as amish groups, unions, fraternal or athletic groups, or [...] 12/2023 [facility] - [...] No 12/31/2023 Housing Stability Vital Sign Answer Bladimri e Recorded In the last 12 months, [...] PM CDT Sexual Orientation Not on file documented as [...] in office or promptcare to be re-evaluated. N EXPORT COORDINATOR * Telephone Encounter - Aliza Atwood RN [...] States had right shoulder blade pain Pain: 01/08 Fever: Denies fever. Treatment / Response: amoxicillin-clavulanate (AUGMENTIN) 875-125 MG Tablet Denies: Moving the earlobe or touching the ear clearly increases the pain Foreign body stuck in the ear canal Boissevain or red swelling behind the ear Stiff [...] blurred vision or vision changes Protocols used: Nragfuo-V-GQ N EXPORT COORDINATOR * Telephone Encounter - Carmen Robbins CMA - 10/13/2024 3:48 PM CST Symptom: Earache Outcome: Schedule an appointment within 3 days Reason: Caller denied all higher acuity questions The caller rejected this outcome. Caller Denied: * Severe pain now * Suspects Swimmer's ear N EXPORT COORDINATOR documented in this encounter Plan of Treatment Upcoming Encounters Date Type Department Care Team (Late st Contact Info) Description 06/08/2025 5:00 PM CDT Office Visit [facility] - [place] [address] [place] [address] Shravan Burgos, PAPI [address] [place] [address] documented as of this encounter Goals Goal Patient Goal Type Associated Problems Recent Progress Patient-Stated? Author Behavioral [facility] Behavioral Health On track(2019 9:50 [...] past) that trigger mood concerns. Behavioral [facility] Behavioral Health On track(2019 9:50 [...] Total Score: 0 12/31/19 24 2:09 PM OCEAN EXPORT COORDINATOR documented as of this encounter Care Teams Brancher Relationship Specialty Start Date End Date Shravan Burgos, [facility] [address] [place] [phone] PCP - General Physician Compensation Supervisor 12/31/23 Arnold Roberts MD [address] [place] [address] Consulting Physician Pulmonary Disease 07/26/23 documented as of this encounter
--- OUTSIDE RECORDS SUMMARY | 2025-06-07 07:43 | XMS_ITS | Clinical Summary ---
Author Organization [facility] Medical Office Building A Address [address] [place] [address] Care Team Providers Care Latin Teacher Name Role Phone Amaya Kowalski NP Primary Care Provider [phone] Allergies Active Allergy Reactions Criticality Noted Date [...] 05/11/2017 Assessment & Plan (10/29/2017 12:22 PM TANGLED YARN WORKER): Anxiety disorder does not seem to be [...] on file Legal Sex Female 3:28 AM TANGLED YARN WORKER Gender Identity Not on file Sexual [...] Plan of Treatment Not on file Insurance [facility] Address: [facility] [address] [place] [address] [place] [address] [facility] Address: [facility] [address] [place] [address] Care Teams Latin Teacher Relationship Specialty Start Date End Date Amaya Kowalski NP PCP - General Nurse Practitioner 09/25/20
[2025-06-07 10:01] LABS: Hematocrit 41.0 % (37.0-47.0); Hemoglobin 13.3 g/dL (12.0-15.0); Immature Granulocyte Percent A 0.4 % (0-0.5); Lymphocytes Absolute Auto 2.70 K/mm3 (0.9-3.2); Mean Corpuscular HGB Conc 32.4 g/dl (32-36); Mean Corpuscular Hemoglobin 31.1 pg (26-34); Mean Corpuscular Volume 96.0 fl (80-100); Nucleated Red Blood Cells Absolute Auto 0.000 K/mm3 (0.0-0.012); Nucleated Red Blood Cells Perc 0.0 % (0.0-0.2); Platelet Count Result 262 k/mm3 (150-375); Red Blood Count 4.27 M/mm3 (4.2-5.4); White Blood Count 9.4 K/mm3 (4.5-10.0)
[2025-06-07 10:13] LABS: Alanine Aminotransferase 50 U/L (6-35); Albumin Level 4.5 g/dL (3.5-5.1); Alkaline Phosphatase 61 U/L (38-126); Anion Gap 11 mmol/L (4-12); Aspartate Amino Transferase 41 U/L (14-36); Bilirubin,Total 0.4 mg/dL (0.2-1.3); Blood Urea Nitrogen 12 mg/dL (7-17); Calcium 9.0 mg/dL (8.4-10.2); Carbon Dioxide 21 mmol/L (22-30); Chloride 101 mmol/L (98-107); Cholesterol 152 mg/dL (0-200); Estimated Glomerular Filt Rate > 60; Glucose 84 mg/dL (65-110); HDL Direct 42 mg/dL; Potassium 4.0 mmol/L (3.4-5.0); Sodium 133 mmol/L (137-145); Total Protein 8.0 g/dL (6.3-8.2); Triglycerides 296 mg/dL (<150)
[2025-06-07 10:57] LABS: Thyroid Stimulating Hormone Reflex 1.380 uIU/mL (0.465-4.68)
== END 2025-06-07 07:36 | disposition home or self-care (01) ==
DX: F41.9 Anxiety disorder, unspecified (principal); E78.1 Pure hyperglyceridemia; J45.31 Mild persistent asthma with (acute) exacerbation
CPT/HCPCS: 36415; 80053; 80061; 84443; 85025

== ENCOUNTER 2025-06-09 11:42 | Outpatient (CLI) | payer OTHER, SELFPAY ==
--- NOTE | ~2025-06-09 | XR_ITS ---
AP view of the pelvis and AP and lateral views of the left hip Clinical history: Pain, scoliosis Findings: No acute fracture or dislocation is seen. Osseous alignment is anatomic. Bilateral hip and SI joint spaces are preserved. Soft tissues are unremarkable. IUD in place. Impression: No significant abnormality is seen. IUD in place. Reviewed, dictated and finalized at location M. Impression: No significant abnormality is seen. IUD in place.
--- NOTE | ~2025-06-09 | XR_ITS ---
Lumbosacral Spine: AP and lateral views Clinical History: Pain Findings: There is levoscoliosis. The vertebral bodies and posterior elements are intact. There are mild degenerative disc changes. There are mild facet joint degenerative changes. The sacroiliac join ts are normally outlined. Impression: Levoscoliosis with mild degenerative spondylitic changes. Reviewed, dictated and finalized at [facility]. Impression: Levoscoliosis with mild degenerative spondylitic changes.
--- OUTSIDE RECORDS SUMMARY | 2025-06-09 11:55 | XMS_ITS | Encounter Summary ---
Author Organization [employer] Care Team Providers Care Paraffin Plant Sweater Operator Name Role Phone Arnold Roberts MD Unavailable Shravan Burgos PAC Primary Care Provider [phone] Encounter Details Date Type Department Care Team (Latest Contact Info) Description 06/08/2025 Travel Social History Tobacco Use Types Packs/Day Years Used Date Smoking Tobacco: Some Days Cigarettes Smokeless Tobacco: Never Comments:Pt has multiple day s in a row she abstains. Alcohol Use Standard Drinks/Week Comments Yes 5 (1 standard drink = 0.6 oz pur e alcohol) socially [employer] Util[employer] Answer Date Recorded In the past 12 months has [employer], gas, oil, or water company threatened [...] often do you attend chur ch or quaker services? Never 12/13/2024 Do you belong to any clubs o r organizations such as religious groups, unions, fraternal or athletic groups, or school groups? No 12/13/2024 How often do you attend meet ings of the clubs or organizations you belong to? Patient declined 12/13/2024 Are you , , di vorced, , never , or living with a partner? Never 12/13/2024 Overall Financial Resource Strain (CARDIA) Answe r Date Recorded How hard is it for you to pa y for the very basics like food, housing, medical care, and heating? Not hard at all 12/13/2024 PHQ-2 Answer Date Recorded Total Score - Questions 1-9 0 11/29 [facility] - Occupational [...] place to sleep or slept in a intermediate (including now)? No 12/31/2023 Housing Stability Vital Sign Answer Bladimir e Recorded In the last 12 months, was t here a time when you were not able to pay the mortgage or rent on time? No 12/13/2024 Number of Times Moved in the Last Year Not on fi le 12/13/2024 At any time in the past 12 m [facility], were you homeless or living in a intermediate (including now)? No 12/13/2024 AUDIT-C Answer Date Recorded Q1: How often do you have a drink containing alc ohol? 2-3 times a week 06/08/2025 Q2: How many drinks containi ng alcohol do you have on a typical day when you are drinking? 7 to 9 06/08/2025 Q3: How often do you have si x or more drinks on one occasion? Weekly 06/08/2025 Education Answer Date Recorded What is the [...] as of this encounter Functional Status * AUDIT-C Score Answer Date of Assessment Author 9 06/08/2025 4:55 PM CDT Cathleen Samuel D, WREATH MACHINE TENDER * Question Answer Date of Assessment Author Q1: How often do you have a drink containing alcohol? 2-3 times a week 06/08/2025 4:55 PM Alan Patricia, CM A Q2: How many drinks containing alcohol do you have on a typical day when you are drinking? 7 to 9 06/08/2025 4:55 PM Alan Patricia CM A Q3: How often do you have six or more drinks on one occasion? Weekly 06/08/2025 4:55 PM Alan Patricia CM A documented as of this encounter Plan of Treatment Upcoming Encounters Date Type Department Care Team (Late st Contact Info) Description 12/10/2025 4:30 PM COMMODITIES CLERK Office Visit [facility] - Primary Care - [place] [address] [place] [address] Shravan Burgos, PAC [address] [place] [address] documented as of [...] and past) that trigger mood concerns. Behavioral [facility] Behavioral Health On [...] Noted Time PHQ-9 Depression Total Score: 0 12/13/19 25 3:22 PM COMMODITIES CLERK documented as of this encounter Care Teams Paraffin Plant Sweater Operator Relationship Specialty Start Date End Date Shravan Burgos, PAC [address] [place] [address] PCP - General Physician Sterilization Specialist 12/31/23 Arnold Roberts MD [address] [place] [address] Consulting Physician Pulmonary Disease 07/26/23 documented as of this encounter
--- OUTSIDE RECORDS SUMMARY | 2025-06-09 11:55 | XMS_ITS | Encounter Summary ---
Author Organization [facility] Address [address] [place] [address] Phone Care Team Providers Care Traffic Control Flagger Name Role Phone Arnold Roberts MD Unavailable Shravan Burgos PAC Primary Care Provider [phone] Reason for Visit * Reason Onset Date Comments Ear Pain 10/13/2024 Encounter Details Date Type Department Care Team (Late st Contact Info) Description 10/13/2024 Nurse Triage [facility] [address] [place] [address] Shravan Burgos, PAC [address] [place] [address] Ear Pain Social History Tobacco Use Types Packs/Day Years Used Date Smoking Tobacco: Some Days Cigarettes Smokeless Tobacco: Never Comments:Pt has multiple day s in a row she abstains. Alcohol Use Standard Drinks/Week Comments Yes 5 (1 standard drink = 0.6 oz pur e alcohol) socially [facility] Utilities Answer Date Recorded In the past 12 months has [employer] electric, gas, oil, or water company threatened [...] How often do you attend hoahaoism or scientology serv ices? Patient declined 12/31/2023 Do you [...] Total Score - Questions 1-9 0 12/2023 [facility] - Occupational [...] in office or promptcare to be re-evaluated. CTURAL WELDER * Telephone Encounter - Aliza Atwood RN [...] Foreign body stuck in the ear canal [place] or red swelling behind the ear Stiff [...] blurred vision or vision changes Protocols used: Mnycnpm-G-PX CTURAL WELDER * Telephone Encounter - Carmen Robbins CMA - 10/13/2024 3:48 PM CST Symptom: Earache Outcome: Schedule an appointment within 3 days Reason: Caller denied all higher acuity questions The caller rejected this outcome. Caller Denied: * Severe pain now * Suspects Swimmer's ear CTURAL WELDER documented in this encounter Plan of Treatment Upcoming Encounters Date Type Department Care Team (Late st Contact Info) Description 12/10/2025 4:30 PM STRUCTURAL WELDER Office Visit [facility] - Primary Care - [place] [address] [place] [address] Shravan Burgos, PAPI [address] [place] [address] documented as [...] Total Score: 0 12/31/19 24 2:09 PM STRUCTURAL WELDER documented as of this encounter Care Teams Traffic Control Flagger Relationship Specialty Start Date End Date Shravan Burgos, [facility] [address] [place] [address] PCP - General Physician Baseball Inspector 12/31/23 Arnold Roberts MD [address] [place] [address] Consulting Physician Pulmonary Disease 07/26/23 documented as of this encounter
--- OUTSIDE RECORDS SUMMARY | 2025-06-09 11:55 | XMS_ITS | Referral Summary ---
Author Organization [facility] Office Building A Address [address] [place] [address] Care Team Providers Care Nephrology Nurse Name Role Phone Amaya Kowalski NP Primary Care Provider [phone] Allergies Active Allergy Reactions Criticality Noted Date [...] 05/11/2017 Assessment & Plan (10/29/2017 12:22 PM ENVIRONMENTAL REMEDIATION ENGINEER): Anxiety disorder does not seem to be [...] on file Legal Sex Female 3:28 AM ENVIRONMENTAL REMEDIATION ENGINEER Gender Identity Not on file Sexual [...] Plan of Treatment Not on file Insurance [facility] H[facility]PP[facility] Address: [address] [address] [place] [address] [facility] H[facility]/PP[facility] Address: [address] [address] [place] [address] Care Teams Nephrology Nurse Relationship Specialty Start Date End Date Amaya Kowalski NP PCP - General Nurse Practitioner 09/25/20
--- OUTSIDE RECORDS SUMMARY | 2025-06-09 11:55 | XMS_ITS | Clinical Summary ---
Author Organization [facility] Address [address] [place] [address] Care Team Providers Care Mangle Press Catcher Name Role Phone Unavailable Primary Care Provider Unavailabl e Source Comments [facility],non-owned Affiliates and Associated Physician Practices is amultiple site organization consisting of ambulatory clinics and hospital sitesin [place], [place], [place] and [place]. This disclosure is being madepursuant to the Care Everywhere program and may not contain all information available regarding this patient. Last updated 18.[facility] [employer] Social History Tobacco Use Types Packs/Day Years Used Date Smoking Tobacco: Never Assessed Comments Unknown Sex and Gender Information Value Date Recorded Sex Assigned at Not on file Legal Sex Female 6:24 AM PHOTOVOLTAIC INSTALLER Gender Identity Not on file Sexual [...] patient's age to complete this topic Insurance [facility] MEDICAID [facility] SELF PAY NO INSURANCE Member Subscriber Plan / Payer (Ef fective for All Dates) Name:Irma Seymour Member ID:Not on file Relation to Subscriber:Not on file Name:IRMA SEYMOUR Subscriber ID:Not on file Address: [address] [place] [id number] Payer ID:Not on file Group ID:Not on file Type:Self Pay Address: [facility] SELF PAY NO INSURANCE Member Subscriber Plan / Payer (Ef fective for All Dates) Name:Irma Seymour Member ID:Not on file Relation to Subscriber:Not on file Name:IRMA SEYMOUR Subscriber ID:Not on file Address: [address] [place] [id number] Payer ID:Not on file Group ID:Not on file Type:Self Pay Address: [facility] * Guarantor: IRMA SEYMOUR Type Relation to Patient Date of Phone Billing Address Personal/Family Spouse [facility] [place] [phone] SELF PAY NO INSURANCE Member Subscriber Plan / Payer (Ef fective for All Dates) Name:Irma Seymour Member ID:Not on file Relation to Subscriber:Not on file Name:IRMA SEYMOUR Subscriber ID:Not on file Address: [address] [place] [phone] Payer ID:Not on file Group ID:Not on file Type:Self Pay Address: [facility]
--- OUTSIDE RECORDS SUMMARY | 2025-06-09 11:55 | XMS_ITS | Encounter Summary ---
Author Organization [facility] Address [address] [place] [place] [address] Phone Care Team Providers Care Exceptional Student Education Teacher Name Role Phone Amaya Kowalski APRN, CNP Primary Care Provider Sravani Ramsay MD Primary Care Provider [phone] Arnold Roberts MD Unavailable Shravan Burgos Primary Care Provider [phone] Reason for Visit * Reason Onset Date Comments Cough 11/26/2022 Encounter Details Date Type Department Care Team ([facility] Contact Info) Description 11/26/2022 Nurse Triage [facility] - Primary Care - [place] [address] [place] [address] Amaya Kowalski APRN, TODDLER GUIDE [address] [place] [address] Cough Social History Tobacco Use [...] Coronavirus/COVID-19? No / Unsure 11/26/2022 4:19 PM LINUX UNIX ADMINISTRATOR documented as of this encounter Miscellaneous Notes * Telephone Encounter - Mohini Aguirre RN - 11/26/2022 11:57 AM LINUX UNIX ADMINISTRATOR SITUATION: Cough which is keeping her up [...] travel history, exposures) no Protocols used: COUGH-A-OH X UNIX ADMINISTRATOR * Telephone Encounter - Mohini Aguirre RN - 11/26/2022 11:55 AM CSTFrom: Irma Seymour To: Ivelisse Kowalski Sent: 11/26/2022 11:18 AM LINUX UNIX ADMINISTRATOR Subject: Cough Hello. So I have been [...] let me know. I work till 3pm. X UNIX ADMINISTRATOR documented in this encounter Plan of Treatment Upcoming Encounters Date Type Department Care Team (Late st Contact Info) Description 12/10/2025 4:30 PM LINUX UNIX ADMINISTRATOR Office Visit [facility] - Primary Care - [place] [address] [place] [address] Shravan Burgos PAC [address] [place] [address] documented as of this encounter [...] - 19 11/26/2022 11/26/2022 11/26/2022 4:47 PM LINUX UNIX ADMINISTRATOR COVID - 19 11/26/2022 11/26/2022 12/06/2022 12:1 9 AM LINUX UNIX ADMINISTRATOR Assessment Noted Time PHQ-9 Depression Total Score: 13 020 2:00 PM CDT documented as of this encounter Care Teams Exceptional Student Education Teacher Relationship Specialty Start Date End Date Amaya Kowalski, METER TESTER POLYPHASE, TODDLER GUIDE [address] [place] [address] PCP - General Advanced Practice Nurse 06/10/18 04/22/23 Sravani Ramsay MD [address] [place] [address] PCP - General Family Medicine 04/23/23 12/30/23 Shravan Burgos PAC [address] [place] [address] PCP - General Physician Carboy Filler 12/31/23 Arnold Roberts MD [address] [place] [address] Consulting Physician Pulmonary Disease 07/26/23 documented as of this encounter
--- OUTSIDE RECORDS SUMMARY | 2025-06-09 11:55 | XMS_ITS | Clinical Summary ---
Author Organization [facility] Medical Office Building A Address [address] [place] [address] Care Team Providers Care Assistant Auditor Name Role Phone Amaya Kowalski NP Primary Care Provider [phone] Allergies Active Allergy Reactions Criticality Noted Date [...] 05/11/2017 Assessment & Plan (10/29/2017 12:22 PM PROFESSOR OF POLITICAL SCIENCE): Anxiety disorder does not seem to be [...] on file Legal Sex Female 3:28 AM PROFESSOR OF POLITICAL SCIENCE Gender Identity Not on file Sexual Orientation [...] Plan of Treatment Not on file Insurance [facility] HMO/PPO Address: [facility] [address] [place] [address] [place] [address] [facility] HMO/PPO Address: [facility] [address] [place] [address] Care Teams Assistant Auditor Relationship Specialty Start Date End Date Amaya Kowalski NP PCP - General Nurse Practitioner 09/25/20
--- OUTSIDE RECORDS SUMMARY | 2025-06-09 11:55 | XMS_ITS | Encounter Summary ---
Author Organization [facility] Address [address] [facility] [place] [address] Phone Care Team Providers Care Scientific Publications Editor Name Role Phone Amaya Kowalski APRN, ANESTHESIOLOGIST ASSISTANT Primary Care Provider Sravani Ramsay MD Primary Care Provider [phone] Arnold Roberts MD Unavailable Shravan Burgos Primary Care Provider [phone] Reason for Visit * Reason Comments Medication Refill Encounter Details Date Type Department Care Team ([facility] Contact Info) Description 10/24/2020 Refill [facility] - Primary Care - [place] [address] [place] [address] Amaya Kowalski APRN, ANESTHESIOLOGIST ASSISTANT [address] [place] [address] Medication Refill Social History Tobacco [...] Coronavirus / COVID-19? Yes 10/15/2020 10:41 AM EMR IMPLEMENTATION SPECIALIST documented as of this encounter Miscellaneous Notes * Telephone Encounter - Latia Garcia CMA - 10/25/2020 7:57 AM CST This medication was already order. Please refused. IMPLEMENTATION SPECIALIST documented in this encounter Plan of Treatment Upcoming Encounters Date Type Department Care Team (Late st Contact Info) Description 12/10/2025 4:30 PM EMR IMPLEMENTATION SPECIALIST Office Visit [facility] - Primary Care - [place] [address] [place] [address] Shravan Burgos PAC [address] [place] [address] documented as of this encounter [...] track(2019 9:50 AM CDT) No Eloise Jenkins AUXILIARY EQUIPMENT TENDER Note: Irma will engage in a [...] - 19 11/26/2022 11/26/2022 11/26/2022 4:47 PM EMR IMPLEMENTATION SPECIALIST COVID - 19 11/26/2022 11/26/2022 12/06/2022 12:1 9 AM EMR IMPLEMENTATION SPECIALIST Assessment Noted Time PHQ-9 Depression Total Score: 13 020 2:00 PM CDT documented as of this encounter Care Teams Scientific Publications Editor Relationship Specialty Start Date End Date Amaya Kowalski, DIRECTOR CHECK, ANESTHESIOLOGIST ASSISTANT [address] [place] [address] PCP - General Advanced Practice Nurse 06/10/18 04/22/23 Sravani Ramsay MD [address] [place] [address] PCP - General Family Medicine 04/23/23 12/30/23 Shravan Burgos, [facility] [address] [place] [address] PCP - General Physician Practice Nurse 12/31/23 Arnold Roberts MD [address] [place] [address] Consulting Physician Pulmonary Disease 07/26/23 documented as of this encounter
--- OUTSIDE RECORDS SUMMARY | 2025-06-09 11:55 | XMS_ITS | Encounter Summary ---
Author Organization [facility] Address [address] [place] [address] Phone Care Team Providers Care Electrical Engineer Name Role Phone Arnold Roberts MD Unavailable Shravan Burgos PAC Primary Care Provider [phone] Reason for Referral * Consult, Test & Initiate Treatment (Less Than 1 Week) - Open Specialty Diagnoses / Procedures Referred By Contac t Referred To Contact Diagnoses Other idiopathic scoliosis, thoracolumbar region Left hip pain Shravan Burgos, PAC [address] [place] [address] Phone: tel: fax: Referral ID Status Reason Start Date Expiration Date Visits Re quested Visits Authorized [id number] Open 06/08/2025 1 1 Scheduling Instructions Irma is being referred to Dr. Riley Jennings or other specialist in patient's insurance network for scoliosis and low back pain. See below for Irma's current medications, allergies and problem list. Please contact patient for scheduling questions or concerns. CURRENT MEDS: Current Outpatient Medications: albuterol 108 (90 Base) MCG/ACT Aerosol Solution, take 1-2 Puffs by inhalation every 6 hours as needed for Wheezing or Cough., Disp: 18 g, Rfl: 0 azelastine (ASTELIN) 0.1 % Solution, 2 Sprays by Nasal route 2 times daily. Use in each nostril as directed, Disp: 30 mL, Rfl: 1 famotidine (PEPCID) 20 MG Tablet, Take 1 Tablet by mouth 2 times daily., Disp: 180 Tablet, Rfl: 1 fenofibrate 160 MG Tablet, Take 1 Tablet by mouth daily., Disp: 90 Tablet, Rfl: 3 ibuprofen (MOTRIN) 200 MG Tablet, Take 3 Tabs by mouth every 6 hours as needed for Fever., Disp: 20 Tab, Rfl: 0 ipratropium-albuterol (DUO-NEB) 0.5-2.5 (3) MG/3ML Solution, 3 mL by Nebulization route 4 times daily., Disp: 360 mL, Rfl: 1 LORazepam (ATIVAN) 0.5 MG Tablet, TAKE 1 TABLET BY MOUTH TWICE A DAY NEEDED FOR ANXIETY, Disp: 60 Tablet, Rfl: 0 Respiratory Therapy Supplies (NEBULIZER) Device, Use 4x/day prn., Disp: 1 Each, Rfl: 0 Respiratory Therapy Supplies (NEBULIZER/TUBING/MOUTHPIECE) Kit, Use 4 times daily prn, Disp: 1 Each, Rfl: 0 triamcinolone (KENALOG) 0.1 % Cream, Apply a small film of cream to affected area twice a day for 2 weeks or until rash resolves., Disp: 45 g, Rfl: 0 No current facility-administered medications for this visit. ALLERGIES: -- Doxycycline -- Rash -- Bactrim [Sulfamethoxazole-Trimethoprim] -- Rash PROBLEM LIST: Patient Active Problem List: Anxiety BMI 26.0-26.9,adult Chronic bronchitis (HCC) Tobacco use disorder Other chronic sinusitis Leukocytosis Moderate persistent asthma without complication * Radiology Services (Routine) - Authorized Specialty Diagnoses / Procedures Referred By Contac t Referred To Contact Radiology Diagnoses Left hip pain Procedures XR HIP 2 VIEWS UNILATERAL LEFT Shravan Burgos PAC [address] [place] [address] Phone: tel: fax: Referral ID Status Reason Start Date Expiration Date V isits Requested Visits Authorized [id number] Authorized 06/08/2025 1 1 Reason for Visit * Reason Comments Back Pain Hip Pain Left Leg Pain Left Rash Right leg Encounter Details Date Type Department Care Team (Latest Contact Info) Description 06/08/2025 5:00 PM CDT Office Visit [facility] - Primary Care - [place] [address] [place] [address] Shravan Burgos, PAC [address] [place] [address] Other idiopathic scoliosis, thoracolumbar region (Primary Dx); Left hip pain; Elevated liver enzymes; Allergic contact dermatitis, unspecified trigger Discharge Disposition: Discharged to home or Selfcare Social History Tobacco Use Types Packs/Day Years Used Date Smoking Tobacco: Some Days Cigarettes Smokeless Tobacco: Never Comments:Pt has multiple day s in a row she abstains. Alcohol Use Standard Drinks/Week Comments Yes 5 (1 standard drink = 0.6 oz pur e alcohol) socially Living [employer] Utilities Answer Date Recorded In the past 12 months has [employer], gas, oil, or water [employer] threatened to shut off services in your [...] often do you attend chur ch or voodoo services? Never 12/13/2024 Do you belong to any clubs o r organizations such as rastafarian groups, unions, fraternal or athletic groups, or [...] Total Score - Questions 1-9 0 11/29 [facility] [place] [facility] - Occupational Stress [...] a skilled nursing (including now)? No 12/31/2023 Housing Stability Vital Sign Answer Bladimir e Recorded In the last 12 months, was t here a time when you were not able to pay the mortgage or rent on time? No 12/13/2024 Number of Times Moved in the Last Year Not on fi le 12/13/2024 At any time in the past 12 m [facility], were you homeless or living in a skilled nursing (including now)? No 12/13/2024 AUDIT-C Answer Date Recorded Q1: How often do you have a drink containing alc ohol? 2-3 times a week 06/08/2025 Q2: How many drinks containi ng alcohol do you have on a typical day when you are drinking? 7 to 06/08/2025 Q3: How often do you have [...] Sign Reading Time Taken Comments Blood Pressure 112/82 06/08/2025 4:54 PM CDT Pulse 69 06/08/2025 4:54 PM CDT Temperature 36.8 C (98.2 F) 06/08/2025 4:54 PM CDT Respiratory Rate 16 06/08/2025 4:54 PM CDT Oxygen Saturation 98% 06/08/2025 4:54 PM CDT Inhaled Oxygen Concentration - - Weight 65.3 kg (144 lb) 06/08/2025 4:54 PM CDT Height 157.5 cm (5' 2) 06/08/2025 4:54 PM CDT Body Mass Index 26.34 06/08/2025 4:54 PM CDT documented in this encounter Functional Status * AUDIT-C Score Answer Date of Assessment Author 06/08/2025 4:55 PM CDT Cathleen Samuel, ADMINISTRATIVE AIDE * Question Answer Date of Assessment Author Q1: How often do you have a drink containing alcohol? 2-3 times a week 06/08/2025 4:55 PM CDT Alan Samuel CM A Q2: How many drinks containing alcohol do you have on a typical day when you are drinking? 7 to 06/08/2025 4:55 PM CDT Alan Samuel CM A Q3: How often do you have six or more drinks on one occasion? Weekly 06/08/2025 4:55 PM CDT Alan Samuel CM A documented as of this encounter Plan of Treatment Upcoming Encounters Date Type Department Care Team (Late st Contact Info) Description 12/10/2025 4:30 PM STALLION MANAGER Office Visit [facility] - Primary Care - [place] [address] [place] [address] Shravan Burgos, PAIP [address] [place] [address] Scheduled Orders Name Type Priority Associated Diagnoses Orde r Schedule XR LUMBAR SPINE 2 OR 3 VIEWS Imaging Routine Other idiopathic scoliosis, thoracolumbar region Ordered: 06/08/2025 XR HIP 2 VIEWS UNILATERAL LEFT Imaging Routine Left hip pain Expected: 06/08/2025, Expires: 06/15/2025 Scheduled Referrals Name Type Priority Associated Diagnoses Orde r Schedule EXTERNAL ORTHOPEDIC REFERRAL Outpatient Referral Less Than 1 week Other idiopathic scoliosis, thoracolumbar region Left hip pain Expected: 06/08/2025, Expires: 08/07/2025 documented as of this encounter Goals Goal [...] make a change [facility] associated with [facility] Steps to [...] of this encounter Visit Diagnoses Diagnosis Other idiopathic scoliosis, thoracolumbar region- Primary Left hip pain Pain in joint, pelvic region and thigh Elevated liver enzymes Nonspecific elevation of levels of transaminase or lactic acid dehydrogenase (LDH) Allergic contact dermatitis, unspecified trigger documented in this encounter Additional Health Concerns Assessment Noted Time PHQ-9 Depression Total Score: 0 12/13/19 25 3:22 PM STALLION MANAGER documented as of this encounter Care Teams Electrical Engineer Relationship Specialty Start Date End Date Shravan Burgos, [facility] [address] [place] [address] PCP - General Physician Drafter Topographical 12/31/23 Arnold Roberts MD [address] [place] [address] Consulting Physician Pulmonary Disease 07/26/23 documented as of this encounter
--- OUTSIDE RECORDS SUMMARY | 2025-06-09 11:55 | XMS_ITS | Encounter Summary ---
Author Organization [facility] Address [address] [facility] [place] [address] Phone Care Team Providers Care Chief Accountant Name Role Phone Amaya Kowalski APRN, DOUGLAS Primary Care Provider Sravani Ramsay MD Primary Care Provider [phone] Arnold Roberts MD Unavailable Shravan Burgos Primary Care Provider [phone] Reason for Visit * Reason Comments Medication Refill Encounter Details Date Type Department Care Team (Late st Contact Info) Description 08/22/2020 Refill [facility] [address] [place] [address] Amaya Kowalski APRN, SERVER ADMINISTRATOR [address] [place] [address] Medication Refill Social History Tobacco [...] ago Injury of left foot, initial encounter [facility] - Family Medicine - Amaya Rodriguez APN, DOUGLAS 4 months ago Moderate episode of recurrent major depressive disorder (HCC) [facility] - Amaya Yoder APN, DOUGLAS 1 year ago Anxiety [facility] - Amaya Yoder APN, DOUGLAS 1 year ago Chronic bronchitis with productive mucopurulent cough (HCC) [facility] - Fox Conde PAC 1 year ago Chronic bronchitis, unspecified chronic bronchitis type (HCC) [facility] - Amaya Yoder APN, DOUGLAS Upcoming Appointments STOCK HOLDER - Recent and Past Visits Recent Visits [...] st Contact Info) Description 12/10/2025 4:30 PM AUTOMOTIVE SALES MANAGER Office Visit [facility] Primary Care - [place] [address] [place] [address] Shravan Burgos PAC [address] [place] [id number] documented as of this encounter Goals Goal Patient Goal Type Associated Problems Recent Progress Patient-Stated? Author Behavioral Health Behavioral Health On track(2019 9:50 AM CDT) Yes Eloise Jenkins, SLICE CUTTING MACHINE OPERATOR HELPER Note: Irma reported her goal for psychotherapy [...] On track(2019 9:50 AM CDT) Eloise Mix, SLICE CUTTING MACHINE OPERATOR HELPER Note: Irma will engage in a plan [...] - 19 10/11/2020 10/11/2020 10/13/2020 8:16 AM AUTOMOTIVE SALES MANAGER COVID - 19 11/26/2022 11/26/2022 11/26/2022 4:47 PM AUTOMOTIVE SALES MANAGER COVID - 19 11/26/2022 11/26/2022 12/06/2022 12:1 9 AM AUTOMOTIVE SALES MANAGER Assessment Noted Time PHQ-9 Depression Total Score: 13 020 2:00 PM CDT documented as of this encounter Care Teams Chief Accountant Relationship Specialty Start Date End Date Amaya Kowalski, CELL STRIPPER, SERVER ADMINISTRATOR [address] [place] [address] PCP - General Advanced Practice Nurse 06/10/18 04/22/23 Sravani Ramsay MD [address] [place] [address] PCP - General Family Medicine 04/23/23 12/30/23 Shravan Burgos, [facility] [address] [place] [address] PCP - General Physician Manager Study 12/31/23 Arnold Roberts MD [address] [place] [address] Consulting Physician Pulmonary Disease 07/26/23 documented as of this encounter
--- OUTSIDE RECORDS SUMMARY | 2025-06-09 11:55 | XMS_ITS | Clinical Summary ---
Author Organization [facility] Address [address] [place] [address] Phone Care Team Providers Care Pilot Submersible Name Role Phone Arnold Roberts MD Unavailable Shravan Burgos PAC Primary Care Provider [phone] Allergies Active Allergy Reactions Criticality Noted Date Comments Sulfamethoxazole-Trimethoprim Rash 2017 Doxycycline Rash Medium 06/01/2018 Medications ibuprofen (MOTRIN) 200 MG Tablet Take 3 Tabs by mouth every 6 hours as needed for Fever. 20 Tab 019 Active Respiratory Therapy Supplies (NEBULIZER) Device Use 4x/day prn. 1 Each 019 Active Respiratory Therapy Supplies (NEBULIZER/TUBIN G/MOUTHPIECE) Kit Use 4 times daily prn 1 Each 019 Active fenofibrate 160 MG TabletIndication s:Hypertriglycer idemia Take 1 Tablet by mouth daily. 90 Tablet 3 024 Active albuterol 108 (90 Base) MCG/ACT Aerosol SolutionIndicati ons:Mild persistent asthma with exacerbation take 1-2 Puffs by inhalation every 6 hours as needed for Wheezing or Cough. 18 g 024 Active ipratropium-albu terol (DUO-NEB) 0.5-2.5 (3) MG/3ML SolutionIndicati ons:Mild persistent asthma with exacerbation 3 mL by Nebulization route 4 times daily. 360 mL 1 024 Active famotidine (PEPCID) 20 MG TabletIndication s:Biliary dyskinesia Take 1 Tablet by mouth 2 times daily. 180 Tablet 1 024 Active azelastine (ASTELIN) 0.1 % SolutionIndicati ons:Other chronic sinusitis 2 Sprays by Nasal route 2 times daily. Use in each nostril as directed 30 mL 1 025 Active LORazepam (ATIVAN) 0.5 MG TabletIndication s:Anxiety TAKE 1 TABLET BY MOUTH TWICE A DAY NEEDED FOR ANXIETY 60 Tablet 025 Active triamcinolone (KENALOG) 0.1 % CreamIndications :Allergic contact dermatitis, unspecified trigger Apply a small film of cream to affected area twice a day for 2 weeks or until rash resolves. 45 g 025 2024 Active meloxicam (MOBIC) 7.5 MG TabletIndication s:Other idiopathic scoliosis, thoracolumbar region,Left hip pain Take 1 Tablet by mouth daily. 90 Tablet 025 Active fluticasone (FLONASE) 50 MCG/ACT Suspension 1 [place] by Nasal route daily. Use in each nostril as directed. 16 g 1 024 2024 Discontinued(T herapy completed) cyclobenzaprine (FLEXERIL) 10 MG Tablet Take 1 Tablet by mouth 3 times daily as needed for Muscle spasms for up to 14 days. 30 Tablet 025 2024 LORazepam (ATIVAN) 0.5 MG TabletIndication s:Anxiety TAKE 1 TABLET BY MOUTH TWICE A DAY NEEDED FOR ANXIETY 60 Tablet 025 2024 Discontinued Active Problems Problem Noted Date Diagnosed Date Other idiopathic scoliosis, thoracolumbar region 06/08/2025 Moderate persistent asthma without complication 07/26/2023 Leukocytosis [...] Encounters Date Type Department Care Team Description 06/08/2025 5:00 PM CDT Office Visit [facility] [place] [address] [place] [address] Shravan Burgos PAC Other idiopathic scoliosis, thoracolumbar region (Primary Dx); Left hip pain; Elevated liver enzymes; Allergic contact dermatitis, unspecified trigger Discharge Disposition: Discharged to home or Selfcare 06/08/2025 Travel 06/04/2025 Refill [facility] [place] [address] [place] [address] Shravan Burgos PAC Medication Refill 05/11/2025 Documentation Only [facility] [place] [address] [place] [address] Shravan Burgos PAC 05/10/2025 Telephone [facility] [address] [place] [address] Shravan Burgos, PAC Labs Only 05/02/2025 [facility] [place] [address] [place] [address] Shravan Burgos, PAC Medication Refill 04/27/2025 4:32 PM CDT - 04/27/2025 7:19 PM CDT [facility] [address] [place] [address] Korin Cash APRN, LADLE LINER Sciatica of left side Discharge Disposition: Discharged to home or Selfcare 04/27/2025 Travel 04/01/2025 [facility] [place] [address] [place] [address] Shravan Burgos, PAC Medication Refill from Last [...] often do you attend chur ch or mosque services? Never 12/13/2024 Do you belong to any clubs o r organizations such as orthodoxy groups, unions, fraternal or athletic groups, or [...] 11/29 [facility] - Occupational [...] in a long-term (including now)? No 12/31/2023 Housing Stability Vital Sign Answer Bladimir e Recorded In the last 12 months, was t here a time when you were not able to pay the mortgage or rent on time? No 12/13/2024 Number of Times Moved in the Last Year Not on fi le 12/13/2024 At any time in the past 12 m [facility], were you homeless or living in a long-term (including now)? No 12/13/2024 AUDIT-C Answer Date [...] Mass Index 26.34 06/08/2025 4:54 PM CDT Plan of Treatment Upcoming Encounters Date Type Department Care Team (Late st Contact Info) Description 12/10/2025 4:30 PM DIE CUTTING MACHINE OPERATOR [facility] [place] [address] [place] [address] Shravan Burgos, PAPI [address] [place] [address] Health Maintenance Due Date Last [...] and past) that trigger mood concerns. Behavioral [facility] On track(2019 9:50 AM [...] Vish Sadler M.D. KT: AARON Report ID: [id number] Reading Location: [id number] Procedure Note Vish Sadler MD - 04/27/2025 [...] Vish Sadler M.D. KT: AARON Report ID: [id number] Reading Location: [id number] IMPRESSION: No left lower extremity deep venous thrombosis. 3.1 cm De La O's cyst left popliteal fossa. us Korin Cash APRN, CNP IMG US ORDERABLES Final Result * NU [...] exams dated: 08/14/2022, 11/04/2020, 09/13/2020, and 03/14/2019 [facility]. BREAST TISSUE:The breasts are heterogeneously dense, which [...] next screening exam. Electronically signed by: Mounika vidales/penrad:09/11/2024 19:49:19 Coil Connector Repairer(s): RT Raegan(R)(M), [facility] letter sent: Normal Exam Reading location: [place] Mammogram BI-RADS: Category 1: Negative Procedure Note Mounika Song MD - 09/12/2024 - NU SCREENING BILATERAL DIGITAL W CAD W WILBERT BILATERAL DIGITAL SCREENING MAMMOGRAM 3D/2D WITH CAD WITH MEDIOLATERAL OBLIQUE CRANIOCAUDAL: 09/11/2024 The study was acquired using digital technology and interpreted from soft copy. Current study was also evaluated with Sirrus TechnologyD version 7.2. 2D digital mammographic views, as well as 3D digital tomosynthesis were performed in the CC and MLO projections. CLINICAL: Routine screening. Patient has no complaints. No personal history of cancer. No family history of breast cancer. COMPARISONS: Comparison is made to exams dated: 08/14/2022, 11/04/2020, 09/13/2020, and 03/14/2019 [facility]. BREAST TISSUE:The breasts are heterogeneously dense, [...] next screening exam. Electronically signed by: Mounika vidales/penrad:09/11/2024 19:49:19 Coil Connector Repairer(s): RT Raegan(R)(M), [facility] letter sent: Normal Exam Reading location: [place] Mammogram BI-RADS: Category 1: Negative Veronika Lojaam GLASS BREAKER, LADLE LINER IMG MAMMO ORDERABLES Kaylin l Result * HM COLONOSCOPY (03/15/2024 12:00 AM CDT) 03/15/2024 us Provider Scan PROCEDURE/MINOR SURGICAL ORDERAB LES Final Result SCAN * HEPATITIS C ANTIBODY (07/14/2023 4:05 PM CDT) hepatitis C antibody 0.10 <1 S/CO [facility] ARCH [id number] 07/15/2023 3:00 PM CDT [facility] Comment: Signal/Cutoff ratio < 0.79 is Nondetected Signal/Cutoff ratio 0.80-0.99 is Grayzone Signal/Cutoff ratio > 0.99 is Detected Supplemental assays are recommended if signal/cutoff ratio is >/=1.00. Signal/cutoff ratio result >/= 5.00 is 97% predictive of positivity for recombinant immunoblot assay (RIBA) and will be reported to the [place] Department of Public Health as required. Blood Venipuncture / Unknown 07/14/2023 4:05 PM CDT 07/14/2023 4:33 PM CDT us Sravani Ramsay MD CHEMISTRY ORDERABLES Final R esult Performing Organization Address City/[facility]/ZIP Co de Phone Number [facility] [address] [place] [address], [place] from Last 3 Months or Most Recently Relevant to Health Maintenance Insurance [facility] Advance Directives * Full Code (Latest Code Status on File) Date Activated Date Inactivated Comments 12/05/2020 4:55 AM 12/06/2020 12:59 AM CPR-Full Mya tment: FULL ARREST: Attempt Resuscitation/CPR wit intubation and mechanical ventilation. PRE-ARREST: Use entire range of life support measures to stabilize the patient. Care Teams Pilot Submersible Relationship Specialty Start Date End Date Shravan Burgos, PAC [address] [place] [address] PCP - General Physician Computer Mechanic 12/31/23 Arnold Roberts MD [address] [place] [address] Consulting Physician Pulmonary Disease 07/26/23
--- OUTSIDE RECORDS SUMMARY | 2025-06-09 11:55 | XMS_ITS | Encounter Summary ---
Author Organization [facility] Address [address] [place] [address] Phone Care Team Providers Care Spice Blender Name Role Phone Sravani Ramsay MD Primary Care Provider + [phone] Arnold Roberts MD Unavailable Shravan Burgos Primary Care Provider + [phone] Reason for Visit * Reason Comments Medication Refill Encounter Details Date Type Department Care Team (Late st Contact Info) Description 05/10/2023 Refill [facility] - [place] [address] [place] [address] Amaya Kowalski, PHOTOGRAMMETRIC COMPILATION SPECIALIST, POLICE DEPARTMENT SECRETARY [address] [place] [address] Medication Refill Social History Tobacco [...] st Contact Info) Description 12/10/2025 4:30 PM PHYSICAL EDUCATION TEACHER Office Visit [facility] - [place] [address] [place] [address] Shravan Burgos, PAPI [address] [place] [address] documented as of this encounter [...] track(2019 9:50 AM CDT) No Eloise Jenkins [facility] [place] Note: Irma will engage in a plan [...] documented as of this encounter Care Teams Spice Blender Relationship Specialty Start Date End Date Sravani Ramsay MD [address] [place] [address] PCP - General Family Medicine 04/23/23 12/30/23 Shravan Burgos PAC [address] [place] [address] PCP - General Physician Information Clerk Brokerage 12/31/23 Arnold Roberts MD [address] [place] [address] Consulting Physician Pulmonary Disease 07/26/23 documented as of this encounter
--- OUTSIDE RECORDS SUMMARY | 2025-06-09 11:55 | XMS_ITS | Encounter Summary ---
Author Organization [facility] Address [address] [place] [place] [address] Phone Care Team Providers Care Counter Tender Name Role Phone Amaya Kowalski APRN, RIM TURNING FINISHER Primary Care Provider Sravani Ramsay MD Primary Care Provider + [phone] Arnold Roberts MD Unavailable Shravan Burgos Primary Care Provider + [phone] Reason for Visit * Reason Comments Medication Refill Encounter Details Date Type Department Care Team ([facility] Contact Info) Description 11/27/2020 Refill [facility] - [facility] - [place] [address] [place] [address] Fox Jesus, PAPI Medication Refill [...] COVID-19? No / Unsure 11/04/2020 1:11 PM INDUSTRIAL EDITOR documented as of this encounter Miscellaneous [...] ago Injury of left foot, [facility] [place], RIM TURNING FINISHER 7 months ago Moderate episode of recurrent major depressive disorder (HCC) [facility] - Amaya Yoder, AUTOMATIC LATHE SETTER, RIM TURNING FINISHER 1 year ago Anxiety [facility] - Amaya Yoder, AUTOMATIC LATHE SETTER, RIM TURNING FINISHER 1 year ago Chronic bronchitis with productive mucopurulent cough (HCC) [facility] - Fox Conde PAC 1 year ago Chronic bronchitis, unspecified chronic bronchitis type (HCC) [facility] - Amaya Yoder, AUTOMATIC LATHE SETTER, RIM TURNING FINISHER Upcoming Appointments [employer] - Recent and Past Visits Recent Visits Date Type Provider Dept 07/26/20 Office Visit Amaya Kowalski APN, RIM TURNING FINISHER [facility] [address] 04/05/20 Office Visit Amaya Kowalski APN, [facility] [place] Showing recent visits within past 460 days with a meds authorizing provider and meeting all other requirements Future Appointments No visits were found meeting these conditions. Showing future appointments within next 90 days with a meds authorizing provider and meeting all other requirements STRIAL EDITOR documented in this encounter Plan of Treatment Upcoming Encounters Date Type Department Care Team (Late st Contact Info) Description 12/10/2025 4:30 PM INDUSTRIAL EDITOR Office Visit [facility] [place] [address] [place] [address] Shravan Burgos PAC [address] [place] [address] documented as of this encounter [...] a change Department associated with goal: [facility] Steps [...] Date Last Indicated Resolved Time COVID - 11/26/2022 11/26/2022 11/26/2022 4:47 PM INDUSTRIAL EDITOR COVID - 11/26/2022 11/26/2022 12/06/2022 12:1 9 AM INDUSTRIAL EDITOR Assessment Noted Time PHQ-9 Depression Total Score: 13 020 2:00 PM CDT documented as of this encounter Care Teams Counter Tender Relationship Specialty Start Date End Date Amaya Kowalski, ASE CERTIFIED TECHNICIAN, RIM TURNING FINISHER [address] [place] [address] PCP - General Advanced Practice Nurse 06/10/18 04/22/23 Sravani Ramsay MD [address] [place] [address] PCP - General Family Medicine 04/23/23 12/30/23 Shravan Burgos PAC [address] [place] [address] PCP - General Physician Lens Shaper Grinder 12/31/23 Arnold Roberts MD [address] [place] [address] Consulting Physician Pulmonary Disease 07/26/23 documented as of this encounter
== END 2025-06-09 11:43 | disposition home or self-care (01) ==
DX: M41.25 Other idiopathic scoliosis, thoracolumbar region (principal); M25.552 Pain in left hip
CPT/HCPCS: 72100; 73502

== ENCOUNTER 2025-08-04 14:41 | Emergency (ER) | payer OTHER, SELFPAY ==
[2025-08-04 14:53] VITALS: BP 130/86; PULSE 78; RESP 16; TEMP 36.3; O2SAT 100
--- NOTE | 2025-08-04 15:13 | ED.HA ---
HPI - Headache General Chief Complaint: Headache Stated Complaint: right side headaches Time Seen by Provider: 08/04/25 15:00 Source: patient and RN notes reviewed Mode of arrival: ambulatory Limitations: no limitations History of Present Illness HPI Narrative: 45-year-old female presents Express Care complaining of headache for last 3 months. Patient says the headache is wax and wane over the last 3 months. Patient says the last month this been persistent. Patient reports pain to the right side of her head radiating into her right sinuses into her right ear. Patient reports feeling pressure and throbbing sensation. Patient reports having photophobia and phonophobia. Patient denies any nausea or vomiting. Patient denies any vision changes, slurred speech, focal weakness, confusion, chest pain, shortness of breath, fevers, body aches, chills, rhinorrhea, congestion, sore throat, earache, or any other symptoms. Patient has been taking Tylenol ibuprofen with some relief. Patient seen by her PCP about these headaches and she said they have not done anything for them. Related Data Home Medications ?Medication ?Instructions ?Recorded ?Confirmed ?Last Taken ?Type lorazepam 0.5 mg tablet 0.5 mg PO BID PRN Anxiety 12/04/23 07/25/25 03/15/24 History albuterol 90 mcg/actuation aerosol 90 mcg inhalation QID PRN SOB 01/04/24 07/25/25 Unknown History inhaler fenofibrate 160 mg tablet 160 mg PO DAILY 01/04/24 07/25/25 Unknown History ipratropium 0.5 mg-albuterol 3 mg ml inhalation 11/23/24 07/25/25 Unknown History (2.5 mg base)/3 mL nebulization soln levonorgestrel (Mirena) 1 device intrauterine ONCE 11/23/24 07/25/25 Unknown History famotidine 20 mg tablet 20 mg PO DAILY 07/25/25 07/25/25 Unknown History meloxicam 7.5 mg tablet 7.5 mg PO DAILY 07/25/25 07/25/25 Unknown History omega 2-jsu-ztf-fish oil 1,000 mg 1 cap PO DAILY 07/25/25 07/25/25 Unknown History (120 mg-180 mg) capsule (Fish Oil) Allergies Allergy/AdvReac Type Severity Reaction Status Date / Time doxycycline Allergy Intermediate Rash Verified 11/23/24 08:40 sulfamethoxazole (From Allergy Intermediate Rash Verified 11/23/24 08:40 Bactrim) trimethoprim (From Bactrim) Allergy Intermediate Rash Verified 11/23/24 08:40 Review of Systems Review of Systems: CONSTITUTIONAL: Denies fever, chills, or sweats. EYES: Denies visual changes, redness, or discharge. ENT: Denies rhinorrhea, congestion, sore throat, or otalgia. CARDIOVASCULAR: Denies chest pain, palpitations, dizziness, lightheadedness or edema. RESPIRATORY: Denies cough or dyspnea. GASTROINTESTINAL: Denies abdominal pain, nausea, vomiting, or diarrhea. GENITOURINARY: Denies dysuria or hematuria. SKIN: Denies rash or itching. MUSCULOSKELETAL: Denies back pain, joint pain, or myalgia. NEUROLOGIC: Positive for headache. Negative for loss of consciousness, focal weakness, slurred speech, facial droop, numbness, or weakness. PSYCHIATRIC: Denies anxiety or depression. All other systems reviewed are negative, except as documented in HPI. PMFSH Past Medical History Medical History Ear infection Diarrhea Dysphagia Nausea Postprandial RUQ pain Postprandial abdominal bloating Scoliosis Bronchitis Surgical History Surgical History No pertinent past surgical history Family History Family History Mother Family history non-contributory Social History Social History Years smoked: 30 Smoking status: Never smoker Tobacco type: cigarettes Additional smoking assessment comments: Social Smoker Alcohol intake: current Alcohol use details: Daily Substance use: never Gender identity (if verbalized by the patient): Female Spiritual care concerns: No Comments At the time of my signature, I reviewed and agree with the nursing past medical, surgical, social, and family history. There is no relevant family history pertinent to the patient complaint. Exam Narrative: GENERAL: This is a well-nourished, well-developed adult, in no apparent distress. They are non ill-appearing, nontoxic appearing. HEAD: normocephalic, atraumatic. EYES: Sclera clear/white. Conjunctiva normal. Vision is grossly intact. Extraocular movements intact. Pupils PERRLA. EARS: External ears normal, auditory canals clear and without drainage, TMs normal without perforation. Hearing grossly intact. NOSE: External nose normal with no obvious nasal discharge, nasal turbinates without redness, no rhinorrhea. THROAT: Mucous membranes moist, posterior pharynx clear, without erythema or swelling. Uvula midline. NECK: Neck supple, non-tender without lymphadenopathy, masses or thyromegaly. Tenderness to palpation to the posterior neck. No cervical point tenderness, crepitus, or step-offs. CARDIOVASCULAR: Regular rate and rhythm without murmurs, gallops, or rubs. RESPIRATORY: Clear to auscultation. Breath sounds equal bilaterally. No wheezes, rales, or rhonchi. SKIN: warm, Dry, intact with no suspicious lesions or rash, good texture and turgor. NEURO: awake, alert, and oriented to person, place and time. There were no obvious focal neurologic abnormalities. EXTREMITIES: No joint tenderness, effusion, or edema noted. Course Course Emergency Course: Portions of this record may have been created with voice recognition software Level of Care: Express Care Visit Vital Signs Vital signs: Vital Signs Temperature 97.3 F L 08/04/25 14:53 Pulse Rate 78 08/04/25 14:53 Respiratory Rate 16 08/04/25 14:53 Blood Pressure 130/86 08/04/25 14:53 Pulse Oximetry 100 08/04/25 14:53 Oxygen Delivery Room Air 08/04/25 14:53 Temperature 97.3 F L 08/04/25 14:53 Pulse Rate 78 08/04/25 14:53 Respiratory Rate 16 08/04/25 14:53 Blood Pressure 130/86 08/04/25 14:53 Pulse Oximetry 100 08/04/25 14:53 Oxygen Delivery Room Air 08/04/25 14:53 Reviewed MDM - Headache MDM Narrative Medical decision making narrative: Patient likely has a migraine. Will prescribe a short course of dexamethasone. Patient only took Tylenol and ibuprofen today prior to arrival. Recommend close follow-up with PCP. No evidence of infection on exam. Discussed physical exam findings. Advised supportive measures and signs/symptoms to go to the ER. Pt is appropriate for outpt treatment and f/u. Differential Diagnosis Differential diagnosis: Likely migraine, tension headache, headache and sinusitis Critical Care Time Critical Care Time Critical Care Time: No Discharge Plan Discharge Clinical Impression: Headache Patient Disposition: Home Condition: Stable Instructions: Antibiotic Form, Migraine Headache (ED) Additional Instructions: Take dexamethasone as directed. You may take ibuprofen 600 mg to 800 mg every 6-8 hours. Do not exceed more than 800 mg of ibuprofen per dose. Do not exceed more than 3200 mg ibuprofen in a day. You may take up to 1000 mg Tylenol every 6-8 hours. Do not exceed 1000 mg per dose, do exceed more than 4000 mg of Tylenol in a day. Follow-up with PCP in 3-5 days. If your headache worsens, you develops vision changes, nausea, vomiting, slurred speech, one-sided weakness, dizziness, lightheadedness, loss conscious, or any serious concerns please go to the ER immediately. Patient Language: Persian Prescriptions: New dexamethasone 6 mg tablet 6 mg PO DAILY 3 Days Qty: 3 0RF No Action lorazepam 0.5 mg tablet 0.5 mg PO BID PRN (Reason: Anxiety) ipratropium-albuterol 0.5 mg-3 mg(2.5 mg base)/3 mL solution for nebulization INHALATION Mirena 21 mcg/24hr (up to 8 yrs) 52 mg intrauterine device 1 device intrauterine ONCE Rx Instructions: as a single dose fenofibrate 160 mg tablet 160 mg PO DAILY albuterol 90 mcg/actuation aerosol 90 mcg inhalation QID PRN (Reason: SOB) meloxicam 7.5 mg tablet 7.5 mg PO DAILY famotidine 20 mg tablet 20 mg PO DAILY omega 2-snk-vvb-fish oil [Fish Oil] 1,000 (120-180) mg capsule 1 cap PO DAILY Follow-up/Referrals: UNKNOWN,DOCTOR [Primary Care Provider] Time of Disposition: 15:07
== END 2025-08-04 15:15 | disposition home or self-care (01) ==
DX: R51.9 Headache, unspecified (principal)
CPT/HCPCS: 99213; G0463

== ENCOUNTER 2025-11-28 15:42 | Emergency (ER) | payer OTHER, SELFPAY ==
--- OUTSIDE RECORDS SUMMARY | 2025-11-28 15:44 | XMS_ITS | Clinical Summary ---
Author Organization [facility] Address [address] [place] [address] Care Team Providers Care Repairer Maintenance Building Name Role Phone Amaya Kowalski NP Primary Care Provider [phone] Allergies Active Allergy Reactions Criticality Noted Date [...] 05/11/2017 Assessment & Plan (10/29/2017 12:22 PM OPTOMETRY TEACHER): Anxiety disorder does not seem to be [...] on file Legal Sex Female 3:28 AM OPTOMETRY TEACHER Gender Identity Not on file Sexual [...] Plan of Treatment Not on file Insurance [facility] HMO/PPO Address: [facility] [address] [place] [address] [facility] H[facility]/PPO Address: [facility] [address] [place] [address] Care Teams Repairer Maintenance Building Relationship Specialty Start Date End Date Amaya Kowalski NP PCP - General Nurse Practitioner 09/25/20
--- OUTSIDE RECORDS SUMMARY | 2025-11-28 15:44 | XMS_ITS | Encounter Summary ---
Author Organization [facility] Address [address] [place] [address] Phone Care Team Providers Care Bag Machine Operator Name Role Phone Sravani Ramsay MD Primary Care Provider + [phone] Arnold Roberts MD Unavailable Shravan Burgos Primary Care Provider + [phone] Reason for Visit * Reason Comments Medication Refill Encounter Details Date Type Department Care Team (Late st Contact Info) Description 05/10/2023 Refill [facility] - Primary Care - [place] [address] [place] [address] Amaya Kowalski, ALMOND HULLER, DIRECTOR OF TRAINING [address] [place] [address] Medication Refill Social History Tobacco [...] st Contact Info) Description 12/10/2025 4:30 PM DIESEL MACHINIST Office Visit [facility] - Primary Care - [place] [address] [place] [address] Shravan Burgos, PAPI [address] [place] [address] documented as of this [...] documented as of this encounter Care Teams Bag Machine Operator Relationship Specialty Start Date End Date Sravani Ramsay MD [address] [place] [address] PCP - General Family Medicine 04/23/23 12/30/23 Shravan Burgos PAC [address] [place] [address] PCP - General Physician Rough And Trueing Machine Operator 12/31/23 Arnold Roberts MD [address] [place] [address] Consulting Physician Pulmonary Disease 07/26/23 documented as of this encounter
--- OUTSIDE RECORDS SUMMARY | 2025-11-28 15:44 | XMS_ITS | Encounter Summary ---
Author Organization [facility] Address [address] [place] [address] Phone Care Team Providers Care Escort Patients Name Role Phone Arnold Roberts MD Unavailable Shravan Burgos Primary Care Provider [phone] Reason for Visit * Reason Onset Date Comments Ear Pain 10/13/2024 Encounter Details Date Type Department Care Team (Late st Contact Info) Description 10/13/2024 Nurse Triage [facility] [address] [place] [address] Shravan Burgos, PAC [address] [place] [address] Ear Pain Social History Tobacco Use Types Packs/Day Years Used Date Smoking Tobacco: Some Days Cigarettes Smokeless Tobacco: Never Comments:Pt has multiple day s in a row she abstains. Alcohol Use Standard Drinks/Week Comments Yes 5 (1 standard drink = 0.6 oz pur e alcohol) socially [facility] Utilities Answer Date Recorded In the past 12 months has [employer] electric, gas, oil, or water company threatened [...] declined 12/31/2023 How often do you attend judaism or yazidi serv ices? Patient declined 12/31/2023 Do you belong to any clubs o r organizations such as judaism groups, unions, fraternal or athletic groups, or [...] Total Score - Questions 1-9 0 12/2023 [facility] of Occupat ional [facility] - Occupational Stress Questionnaire Answer Date [...] in office or promptcare to be re-evaluated. ULAR MANAGER * Telephone Encounter - Aliza Atwood RN [...] Foreign body stuck in the ear canal [place] or red swelling behind the ear Stiff [...] blurred vision or vision changes Protocols used: Ijowmpd-T-NS ULAR MANAGER * Telephone Encounter - Carmen Robbins CMA - 10/13/2024 3:48 PM CST Symptom: Earache Outcome: Schedule an appointment within 3 days Reason: Caller denied all higher acuity questions The caller rejected this outcome. Caller Denied: * Severe pain now * Suspects Swimmer's ear ULAR MANAGER documented in this encounter Plan of Treatment Upcoming Encounters Date Type Department Care Team (Late st Contact Info) Description 12/10/2025 4:30 PM VASCULAR MANAGER Office Visit [facility] - Primary Care - [place] [address] [place] [address] Shravan Burgos PAC [address] [place] [address] documented as of this encounter Goals Goal Patient Goal Type Associated Problems Recent Progress Patient-Stated? Author Behavioral [facility] Behavioral Health On track(2019 9:50 AM [...] Total Score: 0 12/31/19 24 2:09 PM VASCULAR MANAGER documented as of this encounter Care Teams Escort Patients Relationship Specialty Start Date End Date Shravan Burgos, PAC [address] [place] [phone] PCP - General Physician Icer Air Conditioning 12/31/23 Arnold Roberts MD [address] [place] [address] Consulting Physician Pulmonary Disease 07/26/23 documented as of this encounter
--- OUTSIDE RECORDS SUMMARY | 2025-11-28 15:44 | XMS_ITS | Encounter Summary ---
Author Organization [facility] Address [address] [place] [address] Phone Care Team Providers Care Contract Lead Name Role Phone Amaya Kowalski APRN, DOUGLAS Primary Care Provider Sravani Ramsay MD Primary Care Provider [phone] Arnold Roberts MD Unavailable Shravan Burgos Primary Care Provider + [phone] Reason for Visit * Reason Onset Date Comments Cough 11/26/2022 Encounter Details Date Type Department Care Team (Late st Contact Info) Description 11/26/2022 Nurse Triage [facility] - Primary Care - [place] [address] [place] [address] Amaya Kowalski APRN, PACK WORKER SUPERVISOR [address] [place] [address] Cough Social History Tobacco Use [...] Coronavirus/COVID-19? No / Unsure 11/26/2022 4:19 PM SHOE COVERER documented as of this encounter Miscellaneous Notes * Telephone Encounter - Mohini Aguirre RN - 11/26/2022 11:57 AM SHOE COVERER SITUATION: Cough which is keeping her up [...] travel history, exposures) no Protocols used: COUGH-A-OH COVERER * Telephone Encounter - Mohini Aguirre RN - 11/26/2022 11:55 AM CSTFrom: Irma Seymour To: Ivelisse Kowalski Sent: 11/26/2022 11:18 AM SHOE COVERER Subject: Cough Hello. So I have been [...] let me know. I work till 3pm. COVERER documented in this encounter Plan of Treatment Upcoming Encounters Date Type Department Care Team (Late st Contact Info) Description 12/10/2025 4:30 PM SHOE COVERER Office Visit [facility] - Primary Care - [place] [address] [place] [address] Shravan Burgos, PAPI [address] [place] [address] documented as of this encounter [...] change Department associated with goal: [facility] Steps to achieve goal: [...] change Department associated with goal: [facility] Steps to achieve goal: [...] - 19 11/26/2022 11/26/2022 11/26/2022 4:47 PM SHOE COVERER COVID - 19 11/26/2022 11/26/2022 12/06/2022 12:1 9 AM SHOE COVERER Assessment Noted Time PHQ-9 Depression Total Score: 13 020 2:00 PM CDT documented as of this encounter Care Teams Contract Lead Relationship Specialty Start Date End Date Amaya Kowalski, DENTAL ASSOCIATE, PACK WORKER SUPERVISOR [address] [place] [address] PCP - General Advanced Practice Nurse 06/10/18 04/22/23 Sravani Ramsay MD [address] [place] [address] PCP - General Family Medicine 04/23/23 12/30/23 Shravan Burgos, PAC [address] [place] [address] PCP - General Physician Cotton Breeder 12/31/23 Arnold Roberts MD [address] [place] [address] Consulting Physician Pulmonary Disease 07/26/23 documented as of this encounter
--- OUTSIDE RECORDS SUMMARY | 2025-11-28 15:44 | XMS_ITS | Encounter Summary ---
Author Organization [facility] Address [address] [place] [address] Phone Care Team Providers Care Core Drier Name Role Phone Arnold Roberts MD Unavailable Shravan Burgos Primary Care Provider [phone] Reason for Referral * Radiology Services (Routine) - Authorized Specialty Diagnoses / Procedures Referred By Claudio remy Referred To Contact Diagnoses Chronic left-sided low back pain with left-sided sciatica Procedures MRI L-SPINE W/O CONTRAST Shravan Burgos PAC [address] [place] [address] Phone: tel: fax: [address] [place] [phone] Phone: tel: fax: Referral ID Status Reason Start Date Expiration Date V isits Requested Visits Authorized [id number] Authorized 10/15/2025 1 1 R BENCH Reason for Visit * Reason Onset Date Comments Need Order 10/13/2025 MRI Referral 10/13/2025 Neurosurgery Encounter Details Date Type Department Care Team ([facility] st Contact Info) Description 10/13/2025 Telephone [facility] [address] [place] [address] Shravan Burgos PAC [address] [place] [address] Need Order (MRI); Referral (Neurosurgery) Social History Tobacco Use Types Packs/Day Years Used Date Smoking Tobacco: Some Days Cigarettes Smokeless Tobacco: Never Comments:Pt has multiple day s in a row she abstains. Alcohol Use Standard Drinks/Week Comments Yes 5 (1 standard drink = 0.6 oz pur e alcohol) socially [facility] Utilities Answer Date Recorded In the past 12 months has th e [employer], gas, oil, or water [employer] threatened to shut off services in your [...] week 12/13/2024 How often do you attend [facility] or shinto services? Never 12/13/2024 Do you belong to [...] Total Score - Questions 1-9 0 11/29 [facility] of Occupat ional Health - Occupational Stress [...] place to sleep or slept in a usp (including now)? No 12/31/2023 Housing Stability Vital Sign Answer Bladimir e Recorded In the last 12 months, was t here a time when you were not able to pay the mortgage or rent on time? No 12/13/2024 Number of Times Moved in the Last Year Not on fi le 12/13/2024 At any time in the past 12 m [facility], were you homeless or living in a usp (including now)? No 12/13/2024 AUDIT-C Answer Date [...] Telephone Encounter - Shravan Burgos PAC - 10/15/2025 10:40 PM BAKER BENCH MRI order placed. Please fax order to [place], per patient request. R BENCH * Telephone Encounter - Nanci Munoz RN - 10/15/2025 4:35 PM CST Situation: MRI Order, Neurosurgery Referral Background: Patient contacting PCP office. Assessment: Advised patient of provider note below and she states she would like to have MRI ordered and would like to complete this at [facility]. Recommendation: RN called [facility] and requested fax number to send MRI order- please fax order to [phone]. Encounter routed to provider to notify. R BENCH * Telephone Encounter - Mohini Aguirre RN - 10/15/2025 4:21 PM BAKER BENCH Attempted to contact Irma Seymour. No answer, left voicemail to call back. R BENCH * Telephone Encounter - Shravan Burgos PAC - 10/15/2025 3:25 PM CST I got this message regarding her neurosurgery referral. States she needs an MRI of her back before Dr. Perez will see her. I don't have record of any MRI of her back done within the past year. Funmilayo had one done at any outside facility? If not, would she like for me to order this to move forward with the referral? R BENCH * Telephone Encounter - Kalyn Soriano - 10/13/2025 9:11 AM CST SITUATION: Staff Engineer requesting provider review Neurosurgery Referral. BACKGROUND: Referral unable to be processed. ASSESSMENT: Request for provider review due to the following reason(s): Lack of necessary clinical information. RECOMMENDATION: Based on the above information the provider has the following option(s): The suggested location of Dr. Larry Monzon MD requires that a MRI of the effected part within a year is to be sent with thereferral. I do not see a MRI done within the last year. Please put in a referral for this to be done so this referral can be processed. Thank you. Kalyn Soriano [facility] - Referrals opt 7 R BENCH documented in this encounter Plan of Treatment Upcoming Encounters Date Type Department Care Team (Late st Contact Info) Description 12/10/2025 4:30 PM BAKER BENCH Office Visit [facility] - Primary Care - [place] [address] [place] [address] Shravan Burgos PAC [address] [place] [phone] Scheduled Orders Name Type Priority Associated Diagnoses Orde r Schedule MRI L-SPINE W/O CONTRAST Imaging Routine Chronic left-sided low back pain with left-sided sciatica Expected: 10/15/2025, Expires: 01/15/2026 documented as of this encounter Goals Goal [...] as of this encounter Visit Diagnoses Diagnosis Chronic left-sided low back pain with left-sided sciatica- Primary documented in this encounter Additional Health Concerns Assessment Noted Time PHQ-9 Depression Total Score: 0 12/13/19 25 3:22 PM BAKER BENCH documented as of this encounter Care Teams Core Drier Relationship Specialty Start Date End Date Shravan Burgos PAC [address] [place] [address] PCP - General Physician Art Museum Docent 12/31/23 Arnold Roberts MD [address] [place] [address] Consulting Physician Pulmonary Disease 07/26/23 documented as of this encounter
--- OUTSIDE RECORDS SUMMARY | 2025-11-28 15:44 | XMS_ITS | Clinical Summary ---
Author Organization [facility] Address [address] [address] Care Team Providers Care Manager Of Tax Name Role Phone Unavailable Primary Care Provider Unavailabl e Source Comments [facility],non-owned Affiliates and Associated Physician Practices is amultiple site organization consisting of ambulatory clinics and hospital sitesin [place], [place], [place] and [place]. This disclosure is being madepursuant to the Care Everywhere program and may not contain all information available regarding this patient. Last updated 18.[facility] [employer] Social History Tobacco Use Types Packs/Day Years Used Date Smoking Tobacco: Never Assessed Comments Unknown Sex and Gender Information Value Date Recorded Sex Assigned at Not on file Legal Sex Female 6:24 AM MINER HELPER Gender Identity Not on file Sexual [...] 19+ 3-dose series) 1997 PAP SMEAR 1999 DEPRESSION SCREENING 11/29/2024 COVID-19 VACCINE (1 - 2024-2 6 season) 2025 INFLUENZA VACCINE (#1) 2025 9, 09/26/2018, 09/25/2018 [...] patient's age to complete this topic Insurance [facility] MEDICAID OUT [facility] SELF PAY NO INSURANCE Member Subscriber Plan / Payer (Ef fective for All Dates) Name:Irma Seymour Member ID:Not on file Relation to Subscriber:Not on file Name:IRMA SEYMOUR Subscriber ID:Not on file Address: [address] [place] [phone] Payer ID:Not on file Group ID:Not on file Type:Self Pay Address: [facility] SELF PAY NO INSURANCE Member Subscriber Plan / Payer (Ef fective for All Dates) Name:Irma Seymour Member ID:Not on file Relation to Subscriber:Not on file Name:IRMA SEYMOUR Subscriber ID:Not on file Address: [address] [place] [phone] Payer ID:Not on file Group ID:Not on file Type:Self Pay Address: [facility] * Guarantor: IRMA SEYMOUR Type Relation to Patient Date of Phone Billing Address Personal/Family Spouse [facility] [place] [phone] SELF PAY NO INSURANCE Member Subscriber Plan / Payer (Ef fective for All Dates) Name:Irma Seymour Member ID:Not on file Relation to Subscriber:Not on file Name:IRMA SEYMOUR Subscriber ID:Not on file Address: [address] [place] [phone] Payer ID:Not on file Group ID:Not on file Type:Self Pay Address: [facility]
--- OUTSIDE RECORDS SUMMARY | 2025-11-28 15:44 | XMS_ITS | Clinical Summary ---
[facility] Address [address] [place] [address] Phone Care Team Providers Care Dog Obedience Instructor Name Role Phone Arnold Roberts MD Unavailable [...] mouth 2 times daily. 180 Tablet 1 025 Active Azelastine HCl 137 MCG/SPRAY SolutionIndicati ons:Other chronic sinusitis USE 2 SPRAYS IN EACH NOSTRIL TWICE A DAY DIRECTED 30 mL 1 025 Active meloxicam (MOBIC) 7.5 MG TabletIndication s:Other idiopathic scoliosis, thoracolumbar region,Left hip pain TAKE 1 TABLET BY MOUTH EVERY DAY 90 Tablet 025 Active LORazepam (ATIVAN) 0.5 MG TabletIndication s:Anxiety TAKE 1 TABLET BY MOUTH TWICE A DAY NEEDED FOR ANXIETY 60 Tablet 025 Active LORazepam (ATIVAN) 0.5 MG TabletIndication s:Anxiety TAKE 1 TABLET BY MOUTH TWICE A DAY NEEDED FOR ANXIETY 60 Tablet 025 2024 Discontinued Active Problems Problem Noted Date Diagnosed Date Hypertriglyceridemia 06/10/2025 Elevated liver enzymes 06/10/2025 Other idiopathic scoliosis, thoracolumbar region 06/08/2025 Moderate [...] Encounters Date Type Department Care Team Description [facility] [place] [address] [place] [phone] Shravan Burgos, PAC Medication Refill 10/14/2025 [facility] [address] [phone] Shravan Burgos, PAC Medication Refill 10/13/2025 Telephone [facility] Referral Management Services [address] [place] [phone] Shravan Burgos, PAC Need Order (MRI); Referral (Neurosurgery) [facility] [address] [place] [phone] Shahida Bianchi APRN, MACHINED PARTS METAL SPRAYER Medication Refill 09/03/2025 [facility] [place] [address] [place] [address] Shravan Burgos, PAC Medication Refill from Last [...] = 0.6 oz pur e alcohol) socially [facility] Utilities Answer Date Recorded In the past 12 months has th e electric, gas, oil, or water [employer] threatened to shut off services in your [...] week 12/13/2024 How often do you attend [facility] or religion services? Never 12/13/2024 Do you belong to [...] Total Score - Questions 1-9 0 11/29 [facility] [place] of Occupat ional Health - Occupational Stress [...] in a retirement (including now)? No 12/31/2023 Housing Stability Vital Sign Answer Bladimir e Recorded In the last 12 months, was t here a time when you were not able to pay the mortgage or rent on time? No 12/13/2024 Number of Times Moved in the Last Year Not on fi le 12/13/2024 At any time in the past 12 m [facility], were you homeless or living in a retirement (including now)? 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 Office Visit [facility] - Primary Care - [place] [address] [place] [address] Shravan Burgos PAC [address] [place] [address] Health Maintenance Due Date Last Done Comments TdaP Immunization 1978 Pneumococcal Immunization Combined (1 of 2 - PCV) 1997 HPV/Cotest 2008 Cologuard 2023 Immunochemical Fecal Occult Blood 2023 Influenza Immunization (#1) 07/30/202508/29, 08/25/2023, 09/11/2022, Additional history exists SARS-COV-2 Immunization ( season) 2025 11/07/2021, 10/17/2021 Cervical Cancer Screening (CCS) 09/11/2025 [...] Additional history exists Human Papillomavirus (HPV) Immunization (No Doses Required) Completed Meningococcal Immunization (ACWY) Aged Out No longer eligible based on patient's age to complete this topic Rotavirus Immunization Aged Out No lo nger eligible based on patient's age to complete this topic Goals Goal Patient Goal Type Associated Problems Recent Progress Patient-Stated? Author Behavioral Health Behavioral Health On track(2019 9:50 AM CDT) Yes Eloise Jenkins, [facility] Note: Irma reported her goal for [...] track(2019 9:50 AM CDT) No Eloise Jenkins, PATHOLOGIST Note: Irma will engage in a plan [...] dated: 08/14/2022, 11/04/2020, 09/13/2020, and 03/14/2019 [facility]. BREAST TISSUE:The breasts are heterogeneously dense, [...] exam. Electronically signed by: Mounika vidales/penrad:09/11/2024 19:49:19 Circus Supervisor(s): RT Raegan(R)(M), [facility] letter sent: Normal Exam Reading location: [...] dated: 08/14/2022, 11/04/2020, 09/13/2020, and 03/14/2019 [facility]. BREAST TISSUE:The breasts are heterogeneously dense, [...] exam. Electronically signed by: Mounika vidales/penrad:09/11/2024 19:49:19 Circus Supervisor(s): RT Raegan(R)(M), [facility] letter sent: Normal Exam Reading location: [place] Mammogram BI-RADS: Category 1: Negative us Veronika Orantes APRN, MACHINED PARTS METAL SPRAYER IMG MAMMO ORDERABLES Kaylin l Result * HM COLONOSCOPY (03/15/2024 12:00 AM CDT) 03/15/2024 us Provider Scan PROCEDURE/MINOR SURGICAL ORDERAB LES Final Result SCAN * HEPATITIS C ANTIBODY (07/14/2023 4:05 PM CDT) hepatitis C antibody 0.10 <1 S/CO [facility] ARCH [id number] 07/15/2023 3:00 PM CDT [facility] Comment: Signal/Cutoff ratio < 0.79 is Nondetected Signal/Cutoff ratio 0.80-0.99 is Grayzone Signal/Cutoff ratio > 0.99 is Detected Supplemental assays are recommended if signal/cutoff ratio is >/=1.00. Signal/cutoff ratio result >/= 5.00 is 97% predictive of positivity for recombinant immunoblot assay (RIBA) and will be reported to the [place] Department of Public Health as required. Blood Venipuncture / Unknown 07/14/2023 4:05 PM CDT 07/14/2023 4:33 PM CDT us Sravani Ramsay MD CHEMISTRY ORDERABLES Final R esult [facility] [address] [place] [id number], [place] from Last 3 Months or Most Recently Relevant to Health Maintenance Insurance [facility] Advance Directives * Full Code (Latest Code Status on File) Date Activated Date Inactivated Comments 12/05/2020 4:55 AM 12/06/2020 12:59 AM CPR-Full Mya tment: FULL ARREST: Attempt Resuscitation/CPR wit intubation and mechanical ventilation. PRE-ARREST: Use entire range of life support measures to stabilize the patient. Care Teams Dog Obedience Instructor Relationship Specialty Start Date End Date Shravan Burgos, PAC [address] [place] [phone] PCP - General Physician Supervisor Asbestos Textile 12/31/23 Arnold Roberts MD [address] [place] [address] Consulting Physician Pulmonary Disease 07/26/23
[2025-11-28 15:53] VITALS: BP 131/93; PULSE 81; RESP 16; TEMP 37.1; O2SAT 100
--- NOTE | 2025-11-28 16:35 | ED.URI ---
HPI - URI/Sore Throat General Chief Complaint: Upper Respiratory Infection Stated Complaint: covid/flu/rsv test Time Seen by Provider: 11/28/25 16:28 Source: patient and RN notes reviewed Mode of arrival: ambulatory Limitations: no limitations History of Present Illness HPI Narrative: 45-year-old female patient presents today complaining of postnasal drip, nasal congestion, cough, body aches, headache with occasional shortness of breath with exertion since yesterday. Denies fever. She has been taking ibuprofen in an allergy pill with some mild relief. 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 Related Data Home Medications ?Medication ?Instructions ?Recorded ?Confirmed ?Last Taken ?Type lorazepam 0.5 mg tablet 0.5 mg PO BID PRN Anxiety 12/04/23 11/26/25 03/15/24 History albuterol 90 mcg/actuation aerosol 90 mcg inhalation QID PRN SOB 01/04/24 11/26/25 Unknown History inhaler fenofibrate 160 mg tablet 160 mg PO DAILY 01/04/24 11/26/25 Unknown History ipratropium 0.5 mg-albuterol 3 mg ml inhalation 11/23/24 11/26/25 Unknown History (2.5 mg base)/3 mL nebulization soln levonorgestrel (Mirena) 1 device intrauterine ONCE 11/23/24 11/26/25 Unknown History meloxicam 7.5 mg tablet 7.5 mg PO DAILY 07/25/25 11/26/25 Unknown History omega 5-adj-yse-fish oil 1,000 mg 1 cap PO DAILY 07/25/25 11/26/25 Unknown History (120 mg-180 mg) capsule (Fish Oil) famotidine 10 mg tablet (Pepcid AC) 10 mg PO DAILY 11/07/25 11/26/25 Unknown History Allergies Allergy/AdvReac Type Severity Reaction Status Date / Time doxycycline Allergy Intermediate Rash Verified 11/07/25 14:58 sulfamethoxazole (From Allergy Intermediate Rash Verified 11/07/25 14:58 Bactrim) trimethoprim (From Bactrim) Allergy Intermediate Rash Verified 11/07/25 14:58 PMFSH Past Medical History Medical History (Reviewed 11/28/25 @ 16:36 by Palak Bhat, COMMUNITY DEVELOPMENT AIDE, [employer]SEMBLER [employer]) Ear infection Diarrhea Dysphagia Nausea Postprandial RUQ pain Postprandial abdominal bloating Scoliosis Bronchitis Surgical History Surgical History No pertinent past surgical history Family History Family History Mother Depression Anxiety Father Hypertension Grandparent Cerebrovascular accident Social History Social History Years smoked: 30 Smoking status: Current some day smoker Tobacco type: cigarettes Additional smoking assessment comments: Social Smoker Alcohol intake: current Alcohol use details: on weekends Substance use: never Substance use type: does not use Gender identity (if verbalized by the patient): Female Spiritual care concerns: No Comments At time of signature, I have reviewed and agree with nursing past medical, surgical, social and family history unless otherwise noted. Please see nursing chart for further information. There is no relevant family history pertinent to the presenting complaint Exam Narrative: GENERAL: Mildly-appearing, well-nourished, and in no acute distress. HEAD: Normocephalic, atraumatic. EYES: EOMI. No redness or drainage. Conjunctivae normal. ENT: Mucous membranes pink and moist. Nares clear. No rhinorrhea. TMs normal bilaterally. Throat mildly erythematous edema or exudate. Uvula midline. NECK: Normal AROM. Supple. No lymphadenopathy. CHEST: No respiratory distress. Clear to auscultation. HEART: Regular rate and rhythm. No murmur appreciated. EXTREMITIES: Normal range of motion. No edema. SKIN: Warm, dry, no rash. Capillary refill normal. Normal skin turgor. NEURO: No focal deficits. Alert and oriented x3. Gait steady. PSYCH: Normal affect. No signs of depression or anxiety. Course Course Level of Care: Express Care Visit Vital Signs Vital signs: Vital Signs Temperature 98.7 F 11/28/25 15:53 Pulse Rate 81 11/28/25 15:53 Respiratory Rate 16 11/28/25 15:53 Blood Pressure 131/93 H 11/28/25 15:53 Pulse Oximetry 100 11/28/25 15:53 Oxygen Delivery Room Air 11/28/25 15:53 Temperature 98.7 F 11/28/25 15:53 Pulse Rate 81 11/28/25 15:53 Respiratory Rate 16 11/28/25 15:53 Blood Pressure 131/93 H 11/28/25 15:53 Pulse Oximetry 100 11/28/25 15:53 Oxygen Delivery Room Air 11/28/25 15:53 Reviewed [facility] Narrative Medical decision making narrative: 45-year-old female patient presents today complaining of postnasal drip, nasal congestion, cough, body aches, headache with occasional shortness of breath with exertion since yesterday. Denies fever. She has been taking ibuprofen in an allergy pill with some mild relief. 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 Upon exam, patient is mildly ill appearing with a mildly erythematous throat. COVID and influenza negative. Symptoms likely viral in etiology. Discussed [id number] medication use and duration of illness. No prescription medications indicated at this time. Anticipatory guidance given. Patient agrees with plan. Vital signs stable. ED precautions given. Differential Diagnosis Differential Diagnosis: Influenza, COVID, URI, pharyngitis Lab Data [facility] Lab Attestation statement: I personally reviewed the patient's lab results. Lab results narrative: COVID negative, influenza negative Critical Care Time Critical Care Time Critical Care Time: No Discharge Plan Discharge Clinical Impression: Upper respiratory infection Qualifiers: URI type: unspecified URI Qualified Code(s): J06.9 - Acute upper respiratory infection, unspecified Patient Disposition: Home Condition: Stable Instructions: Upper Respiratory Infection (DC) Additional Instructions: Your COVID and influenza swabs are negative today. Your Symptoms are likely due to a viral illness, which is not treated with antibiotics. Virus symptoms can last for up to 7-10days. Take Tylenol or ibuprofen for pain or fever. Rest and stay hydrated. Follow up with your PCP in 7 days if symptoms are not improving. Go to the ER immediately if you develop shortness of breath, difficulty swallowing, or any other concerning symptoms. Patient Language: Portuguese Prescriptions: No Action lorazepam 0.5 mg tablet 0.5 mg PO BID PRN (Reason: Anxiety) ipratropium-albuterol 0.5 mg-3 mg(2.5 mg base)/3 mL solution for nebulization INHALATION Mirena 21 mcg/24hr (up to 8 yrs) 52 mg intrauterine device 1 device intrauterine ONCE Rx Instructions: as a single dose fenofibrate 160 mg tablet 160 mg PO DAILY albuterol 90 mcg/actuation aerosol 90 mcg inhalation QID PRN (Reason: SOB) famotidine [Pepcid AC] 10 mg tablet 10 mg PO DAILY meloxicam 7.5 mg tablet 7.5 mg PO DAILY omega 7-olw-yyf-fish oil [Fish Oil] 1,000 (120-180) mg capsule 1 cap PO DAILY Follow-up/Referrals: PHYSICIAN NOT ON STAFF,NONSTAFF [Primary Care Provider] Time of Disposition: 16:39
[2025-11-28 16:37] LABS: EDINFLUASCREEN Negative (Negative); EDINFLUBSCREEN Negative (Negative)
[2025-11-28 16:38] LABS: EDCOVIDSCREEN Negative (Negative)
== END 2025-11-28 16:40 | disposition home or self-care (01) ==
PROVIDERS: Emergency Provider Nurse Practitioner
DX: J06.9 Acute upper respiratory infection, unspecified (principal); Z20.822 Contact with and (suspected) exposure to COVID-19; M41.9 Scoliosis, unspecified; F17.210 Nicotine dependence, cigarettes, uncomplicated
CPT/HCPCS: 87426; 87804; 99212; G0463